=== PATIENT | female | born 1970 | race Two or more races ===

== ENCOUNTER 2020-01-12 17:34 | Outpatient (REF) | payer MEDICAID, SELFPAY ==
[2020-01-12 18:59] LABS: COVID-19 Test Negative (Negative)
== END 2020-01-12 17:35 | disposition home or self-care (01) ==
LOC: HO.LAB 17:34
PROVIDERS: Visit Provider Internal Medicine
DX: Z20.828 Contact with and (suspected) exposure to other viral communicable diseases (principal)
CPT/HCPCS: 87635

== ENCOUNTER → 2020-03-27 11:29 | Outpatient (BNVA) | payer MEDICAID, SELFPAY | PROVIDERS: Visit Provider Anesthesiology | DX: M47.816 Spondylosis without myelopathy or radiculopathy, lumbar region (principal); M51.36 Other intervertebral disc degeneration, lumbar region | CPT/HCPCS: 99212 ==

== ENCOUNTER → 2020-04-06 08:26 | Outpatient (BNVA) | payer MEDICAID, SELFPAY | PROVIDERS: Visit Provider Anesthesiology | DX: M47.816 Spondylosis without myelopathy or radiculopathy, lumbar region (principal); M51.36 Other intervertebral disc degeneration, lumbar region | CPT/HCPCS: 99212 ==

== ENCOUNTER → 2020-04-19 09:11 | Outpatient (BNVA) | payer MEDICAID, SELFPAY | PROVIDERS: PCP Internal Medicine; Visit Provider Nurse Practitioner Family | DX: M51.36 Other intervertebral disc degeneration, lumbar region (principal); M47.816 Spondylosis without myelopathy or radiculopathy, lumbar region | CPT/HCPCS: 99212 ==

== ENCOUNTER 2020-04-29 16:08 | Outpatient (REF) | payer MEDICAID, SELFPAY ==
--- NOTE | 2020-02-22 07:39 | FL_ITS ---
EXAMINATION: XR FLUOROSCOPY WITH IMAGES CLINICAL INFORMATION: M47.816 - Spondylosis without myelopathy or radiculopathy, lumbar region COMPARISON: MRI lumbar spine 10/13/2019 TECHNIQUE: Fluoroscopy performed by Lillie Connor NP. Fluoroscopy time: 0.6 minutes Total dose: 6.3 mGy Images: 2 FINDINGS: There are spinal needles at outer aspect left L3-L4 and L4-L5 neural foramen. There is contrast in the nerve sheaths with some transforaminal epidural extension at both levels. There are degenerative changes lumbar spine with vertebral spurring and there is disc narrowing L4-L5. FL/FL guidance in treatment room IMPRESSION: Fluoroscopy for pain management procedures.
== END 2020-04-29 16:09 | disposition home or self-care (01) ==
LOC: HO.RADIR 16:08
PROVIDERS: Visit Provider Anesthesiology
DX: M47.816 Spondylosis without myelopathy or radiculopathy, lumbar region (principal); M51.36 Other intervertebral disc degeneration, lumbar region
CPT/HCPCS: 64483; 64484; J3300; Q9967

== ENCOUNTER → 2020-05-17 10:21 | Outpatient (BNVA) | payer MEDICAID, SELFPAY | PROVIDERS: PCP Internal Medicine; Visit Provider Anesthesiology | DX: M51.36 Other intervertebral disc degeneration, lumbar region (principal); M47.816 Spondylosis without myelopathy or radiculopathy, lumbar region | CPT/HCPCS: 99212 ==

== ENCOUNTER → 2020-05-31 11:37 | Outpatient (BNVA) | payer MEDICAID, SELFPAY | PROVIDERS: PCP Internal Medicine; Visit Provider Internal Medicine ==

== ENCOUNTER → 2020-06-14 13:28 | Outpatient (BNVA) | payer MEDICAID, SELFPAY | PROVIDERS: Visit Provider Anesthesiology | DX: M51.36 Other intervertebral disc degeneration, lumbar region (principal); M47.816 Spondylosis without myelopathy or radiculopathy, lumbar region; Z79.899 Other long term (current) drug therapy | CPT/HCPCS: 99212 ==

== ENCOUNTER → 2020-07-12 15:57 | Outpatient (BNVA) | payer MEDICAID, SELFPAY | PROVIDERS: PCP Internal Medicine; Visit Provider Anesthesiology | DX: M47.816 Spondylosis without myelopathy or radiculopathy, lumbar region (principal); M51.36 Other intervertebral disc degeneration, lumbar region; Z79.899 Other long term (current) drug therapy | CPT/HCPCS: 99212 ==

== ENCOUNTER → 2020-08-09 16:18 | Outpatient (BNVA) | payer MEDICAID, SELFPAY | PROVIDERS: PCP Internal Medicine; Visit Provider Anesthesiology | DX: M51.36 Other intervertebral disc degeneration, lumbar region (principal); M47.816 Spondylosis without myelopathy or radiculopathy, lumbar region; M46.1 Sacroiliitis, not elsewhere classified | CPT/HCPCS: 99212 ==

== ENCOUNTER 2020-08-16 01:21 | Emergency (ER) | payer MEDICAID, SELFPAY ==
[2020-08-16 01:34] VITALS: BP 146/96; PULSE 73; RESP 18; TEMP 36.6; O2SAT 94; BMI 20.9
== END 2020-08-16 03:48 | disposition left against medical advice (07) ==
PROVIDERS: Emergency Provider Emergency Medicine; PCP Internal Medicine
DX: R68.83 Chills (without fever) (principal); R51.9 Headache, unspecified; R11.0 Nausea
CPT/HCPCS: 99282

== ENCOUNTER → 2020-09-06 16:24 | Outpatient (BNVA) | payer MEDICAID, SELFPAY | PROVIDERS: PCP Internal Medicine; Visit Provider Anesthesiology | DX: Z51.81 Encounter for therapeutic drug level monitoring (principal) | CPT/HCPCS: 99211 ==

== ENCOUNTER 2020-09-29 13:19 | Day surgery (SDC) | payer MEDICAID, SELFPAY ==
[2020-09-25 14:18] VITALS: BMI 21.2
--- NOTE | 2020-09-28 10:23 | HO.ANESPROP2 ---
HPI - Anesthesia Eval Consult details Narrative: 50yo F for Left Sacroiliac Joint Steroid Injection prn opioids PMFSH Active Problems Active Problems: All Active Problems (Updated 06/14/20 @ 13:45 by Lisandro Angela MD) Spondylosis of lumbar region without myelopathy or radiculopathy (Acute) Sacroiliitis (Acute) COPD (chronic obstructive pulmonary disease) (Acute) Asthma (Acute) Allergic rhinitis (Acute) Disc degeneration, lumbar (Acute) Past Medical History Medical History (Updated 09/29/20 @ 13:40 by Andra Banks) Allergic rhinitis Asthma COPD (chronic obstructive pulmonary disease) Disc degeneration, lumbar HTN (hypertension) Sacroiliitis Surgical History Surgical History (Updated 09/25/20 @ 14:22 by Yen Booker) History of esophagogastroduodenoscopy (EGD) History of incision and drainage History of laparoscopic cholecystectomy History of surgery History of umbilical hernia repair Hx of excision of mass Social History Social History (Updated 09/25/20 @ 14:12 by Yen Booker) Patient Tobacco Use Status: Former Tobacco user Tobacco use type: Cigarette Meds Allergies Allergy/AdvReac Type Severity Reaction Status Date / Time Penicillins [PENICILLINS] Allergy Unknown RASH Verified 09/06/20 16:39 Home Medications Medication Instructions Recorded Confirmed Last Taken Type mirtazapine 45 mg tablet 45 mg PO BEDTIME 03/27/20 09/25/20 Unknown History pregabalin 100 mg capsule 100 mg PO BID 03/27/20 09/25/20 09/29/20 09:30 History quetiapine 100 mg tablet 100 mg PO BEDTIME 03/27/20 09/25/20 Unknown History pregabalin 50 mg capsule 50 mg PO BID 04/19/20 09/25/20 09/29/20 09:30 History lisinopril 1 tab PO QAM 09/29/20 09/29/20 09/29/20 09:30 History Exam Exam Date and Time: September 28, 2020 1023 Height,Weight and Vital Signs: Height 5 ft 3 in Weight 54.431 kg Assessment and Plan Assessment Anesthesia Assessment: Chart Reviewed
--- NOTE | ~2020-09-29 | FL_ITS ---
EXAMINATION: XR FLUOROSCOPY WITH IMAGES CLINICAL INFORMATION: Pain management procedure, SI joint injection. COMPARISON: MR lumbar spine 10/13/2019 TECHNIQUE: Fluoroscopy performed by Dr. Lisandro Angela. Fluoroscopy time: under 1 minute. DAP: 0.572 Gycm2 Images: 1 FINDINGS: There is spinal needle overlying mid aspect left SI joint. There is contrast in the soft tissues and some early intra-articular contrast suggested. No visible vascular communication. FL/FL guidance in OR IMPRESSION: Fluoroscopy for pain management procedure.
[2020-09-29 13:41] VITALS: BP 135/82; PULSE 67; RESP 16; TEMP 37.1; O2SAT 94
--- NOTE | 2020-09-29 14:10 | PC.NURSE ---
Inspiratory faint wheezing heard in lower lobes when auscultated. Dr. Freedman notified. No new orders at this time. Okay to proceed with surgery.
[2020-09-29] MEDS: Lactated Ringers 1,000 ML 100 ML IVCONT (14:18)
--- NOTE | 2020-09-29 14:22 | PC.NURSE ---
Patient drank 8oz of black coffee at 1230. Per anesthesia she can not go into surgery until 1430.
--- NOTE | 2020-09-29 14:27 | MHC.SHP ---
Pre-Procedural Eval Section A Date of Service: 09/29/20 Section B Chief Complaint: Sacroiliitis Details of Present Illness: as above Relevant Family History (Specify if Yes): No Relevant Social History: None Present Medications: None Medical History: No relevant PMH History of Previous Operations: No relevant previous surgery Allergies: Allergies Allergy/AdvReac Type Severity Reaction Status Date / Time Penicillins [PENICILLINS] Allergy Unknown RASH Verified 09/06/20 16:39 Review of Systems Sugical H&P ROS: Negative: Constitution, Cardiovascular, Respiratory, Neurological, Psychiatric, Hem-Onc, Allergic/Immunologic, Gastrointestinal, Genitourinary, Musculoskeletal, Integumentary, Endocrine and Eyes/Ears/Nose/Throat Exam Surgical H&P Exam: Normal: HEENT, Normal: Heart, Normal: Lungs, Normal: Extremities, Normal: Abdomen, Normal: Skin and Normal: Neurological Plan Diagnosis/Plan: Unchanged I have reviewed the history and physical and performed a pertinent physical examination on my patient. No changes have occurred unless specified.
[2020-09-29 14:55] VITALS: BP 109/66; PULSE 59; RESP 10; TEMP 36.3; O2SAT 98
--- NOTE | 2020-09-29 14:57 | P.BOP_ITS ---
Brief Operative Note Date of Service: 09/29/20 Pre-op diagnosis: Sacroiliitis Post-op diagnosis: same Procedure: sacroiliac joint injection left Implants: in a Surgeon: Lisandro Angela MD Anesthesia: MAC Was an Glassware Selector used for this Procedure?: No Estimated blood loss (mL): 0 Condition: stable Disposition: PACU
[2020-09-29 15:10] VITALS: BP 111/67; PULSE 62; RESP 16; TEMP 36.3; O2SAT 98
--- NOTE | 2020-09-30 15:33 | P.OP_ITS ---
Operative Note Operative Note Date of Service: 09/29/20 Narrative: Left sacroiliac joint injection Informed consent was explained thoroughly to the patient. All questions about benefits and risks for the procedure were answered. Patient came to the operating room she was positioned prone on the operating table with the pillow under her pelvis. [employer] monitors were applied and patient was deeply sedated. time out was performed delineating correct site and side of the procedure , the patient's name and date of , allergies. Her lower back and buttocks was prepped with ChloraPrep prepped and draped with sterile towels. Sterilely draped C-arm was brought over the operating field and sq picture of patient's pelvis was demonstrated on the screen. For the left joint tilting C-arm contralateral to the site of the joint and 5? to the foot of the patient the most posterior portion of the joints were clearly delineated on the screen. Skin was injected in the projection of the joint slightly medial to the location of the joint with 25 gauge 1/2 inch needle using local lidocaine 2% without epinephrine. After that 22 gauge 3 and 1/2 inch needle was driven to the left joint point of interest in tunnel vision fashion. When needle entered the joint capsule injection of the contrast was performed demonstrating intra-articular and minimally periarticular spread of the contrast. After that 4 cc. of bupivacaine 0.5% mixed with 40 mg Kenalog was injected into each joint. Upon completion of the injections the needles were removed and pressure were applied. Sterile dressing was applied. Upon completion of the injection patient was awaken taking outside of the operating room to the recovery room where she recovered uneventfully. She went home without immediate complications.
== END 2020-09-29 15:28 ==
LOC: HO.SSS 13:19
PROVIDERS: PCP Internal Medicine; Visit Provider Anesthesiology
PROC: 3E0U33Z Introduction of Anti-inflammatory into Joints, Percutaneous Approach (ICD-10-PCS; CPT 27096; principal; 2020-09-29 14:20)
DX: M46.1 Sacroiliitis, not elsewhere classified (principal); M51.36 Other intervertebral disc degeneration, lumbar region; M47.816 Spondylosis without myelopathy or radiculopathy, lumbar region; J44.9 Chronic obstructive pulmonary disease, unspecified; I10 Essential (primary) hypertension; Z79.899 Other long term (current) drug therapy; Z88.0 Allergy status to penicillin; Z87.891 Personal history of nicotine dependence
CPT/HCPCS: 27096; J2250; J3010; J3300; Q9967

== ENCOUNTER → 2020-10-05 15:40 | Outpatient (BNVA) | payer MEDICAID, SELFPAY | PROVIDERS: PCP Internal Medicine; Visit Provider Anesthesiology | DX: M51.36 Other intervertebral disc degeneration, lumbar region (principal); M47.816 Spondylosis without myelopathy or radiculopathy, lumbar region; M46.1 Sacroiliitis, not elsewhere classified | CPT/HCPCS: 99212 ==

== ENCOUNTER → 2020-10-19 14:43 | Outpatient (BNVA) | payer MEDICAID, SELFPAY | PROVIDERS: PCP Internal Medicine; Visit Provider Internal Medicine | DX: J30.9 Allergic rhinitis, unspecified (principal); J44.9 Chronic obstructive pulmonary disease, unspecified | CPT/HCPCS: 99212 ==

== ENCOUNTER → 2020-11-01 13:40 | Outpatient (BNVA) | payer MEDICAID, SELFPAY | PROVIDERS: PCP Internal Medicine; Visit Provider Anesthesiology | DX: M47.816 Spondylosis without myelopathy or radiculopathy, lumbar region (principal); M51.36 Other intervertebral disc degeneration, lumbar region; M46.1 Sacroiliitis, not elsewhere classified | CPT/HCPCS: 99212 ==

== ENCOUNTER 2020-11-13 15:50 | Emergency (ER) | payer MEDICAID, SELFPAY ==
--- NOTE | ~2020-11-13 | XR_ITS ---
EXAMINATION: XR CHEST CLINICAL INFORMATION: Chest radiograph 12/10/2017 COMPARISON: None TECHNIQUE: Frontal view of the chest was obtained. FINDINGS: No significant abnormality is noted involving the heart, lungs, mediastinum, bony thorax or soft tissues. The medial infiltrate in the right middle lobe previously seen has resolved. XR/XR chest 1V IMPRESSION: No acute intrathoracic disease.
[2020-11-13 15:59] VITALS: BP 153/89; PULSE 86; RESP 19; TEMP 36.8; O2SAT 91
--- NOTE | 2020-11-13 16:05 | ECG_ITS ---
Test Reason : ASTHMA Blood Pressure : / mmHG Vent. Rate : 075 BPM Atrial Rate : 075 BPM P-R Int : 132 ms QRS Dur : 074 ms QT Int : 378 ms P-R-T Axes : 082 059 073 degrees QTc Int : 422 ms Normal sinus rhythm with sinus arrhythmia Normal ECG When compared with ECG of 10-MAY-2019 20:41, No significant change was found Referred By: Rach Lozano Electronically Signed By:DYLAN RIZZO
--- NOTE | 2020-11-13 16:17 | ED_ITS ---
HPI - Asthma General Chief Complaint: Asthma Stated Complaint: copd Time Seen by Provider: 11/13/20 16:03 Source: patient Mode of arrival: ambulatory Limitations: no limitations History of Present Illness MD complaint: asthma attack , shortness of breath and wheezing Onset (ago): day(s) (6) Severity: moderate Context: none known Associated symptoms: productive cough and fever Asthma History: childhood onset Treatments Prior to Arrival: inhaled bronchodilator Related Data Home Medications Medication Instructions Recorded Confirmed mirtazapine 45 mg tablet 45 mg PO BEDTIME 03/27/20 11/13/20 quetiapine 100 mg tablet (Seroquel) 100 mg PO BEDTIME 03/27/20 11/13/20 lisinopril 10 mg tablet 1 tab PO DAILY 09/29/20 11/13/20 albuterol sulfate 90 mcg/actuation 2 puff INHALATION QID PRN 11/13/20 11/13/20 aerosol inhaler (ProAir HFA) budesonide-formoterol HFA 80 1 puff INHALATION BID 11/13/20 11/13/20 mcg-4.5 mcg/actuation aerosol inhaler (Symbicort) ergocalciferol (vitamin D2) 1,250 1 cap PO TH@0900 11/13/20 11/13/20 mcg (50,000 unit) capsule lidocaine 5 % topical patch 1 patch TOPICAL DAILY 11/13/20 11/13/20 nicotine 14 mg/24 hr daily 1 patch TOPICAL DAILY 11/13/20 11/13/20 transdermal patch pregabalin 150 mg capsule 150 mg PO BID 11/13/20 11/13/20 Previous Rx's Medication Instructions Recorded tiotropium bromide 18 mcg capsule 1 cap INHALATION DAILY #60 inh 07/05/20 with inhalation device (Spiriva with HandiHaler) oxycodone 5 mg tablet 5 mg PO TID PRN 30 Days #90 tab 11/01/20 montelukast 10 mg tablet 10 mg PO QPM #30 tab 11/07/20 prednisone 5 mg tablet 5 mg PO QAM #30 tab 11/07/20 doxycycline hyclate 100 mg capsule 100 mg PO BID 7 Days #14 cap 11/13/20 Allergies Allergy/AdvReac Type Severity Reaction Status Date / Time Penicillins [PENICILLINS] Allergy Unknown RASH Verified 10/19/20 15:12 Review of Systems Review of Systems: Constitutional : pos Fever, No Chills ENT/Mouth : No Hoarseness, No sore throat, No Rhinorrhea Eyes: No Redness, No Discharge, No Vision Changes Cardiovascular : No Chest Pain, positive SOB, positive Dyspnea on Exertion, No Edema Respiratory : positive Cough, pos Sputum, positive Wheezing, Gastrointestinal : No Nausea, No Vomiting, No Diarrhea, No abdominal Pain Genitourinary : No Dysuria, No Hematuria Musculoskeletal : No joint pain, No Myalgias Skin : No rash Neuro : No Weakness, No Numbness, No Headache Psych : No anxiety, depression Heme/Lymph: No Bruising, No Bleeding Endocrine : No Polyuria, No Polydipsia All other systems reviewed and are negative [facility] Past Medical History Medical History Allergic rhinitis Asthma COPD (chronic obstructive pulmonary disease) Disc degeneration, lumbar HTN (hypertension) Sacroiliitis Surgical History History of esophagogastroduodenoscopy (EGD) History of incision and drainage History of laparoscopic cholecystectomy History of surgery History of umbilical hernia repair Hx of excision of mass Social History Social History Patient Tobacco Use Status: Former Tobacco user Tobacco use type: Cigarette Advance Directives: No Advance Directives Information Provided: Yes Physical Exam Vital Signs: Vital Signs: Last Vital Signs Temp 98.2 F 11/13/20 15:59 Pulse 77 11/13/20 16:30 Resp 19 11/13/20 15:59 BP 153/89 H 11/13/20 15:59 Pulse Ox 93 11/13/20 18:03 Body Mass Index 20.0 Appearance: Alert. Oriented X3. Mild acute distress. Eyes: Pupils equal, round and reactive to light. ENT: Pharynx normal. Neck: Normal inspection. Neck supple. CVS: Normal heart rate and rhythm. Pulses normal. Respiratory: Mild respiratory distress - retractions and tachypnea. Diffuse end exp wheezes. Abdomen: Soft and nontender. Skin: Skin warm and dry. Normal skin color. Normal skin turgor. Extremities: No lower extremity edema. No calf ttp Neuro: Oriented X 3. No motor deficit. No sensory deficit. Course Course Course Narrative: still tight and wheezy but improved - will admit for COPD exacerbation patient initially refused admission to me but due to not feeling better agreed to stay she was seen by Dr. Jane and refused admission MDM - Asthma MDM Narrative Medical decision making narrative: 50 yo female with hx of asthma, COPD comes in with 6 days of cough, producing sputum, fevers, states she had a negative COVID test this week, PCP put her on 20mg prednisone daily, at this time labs, cultures, COVID swab, CXR, 10mg hour long neb, IV steroids, IV magnesium - placed on 2L NC given O2 sat 91%. Suspect URI at this time. Dispo per results and O2 requirement. Lab Data Result diagrams: 11/13/20 16:45 11/13/20 16:45 Labs: Lab Results 11/13/20 11/13/20 11/13/20 Range/Units 16:23 16:45 16:45 WBC 7.5 (4.8-10.8) X10*3/uL RBC 4.58 (4.20-5.50) X10*6/uL Hgb 13.8 (12.0-16.0) g/dl Hct 42.1 (37-47) % MCV 91.9 (80-98) fL MCH 30.1 (27.0-33.0) pg MCHC 32.8 (31.0-35.0) g/dl RDW 14.1 (11.0-16.0) % Plt Count 259 (160-400) X10*3/uL MPV 9.5 (9.4-12.3) fL Immature Gran % (Auto) 1.2 H (0.0-0.4) % Neut % (Auto) 79.1 H (45-73) % Lymph % (Auto) 16.4 L (20-40) % [place] % (Auto) 2.9 (2-11) % Eos % (Auto) 0.0 (0-4) % Baso % (Auto) 0.4 (0-2) % Lymph # (Auto) 1.2 (1.2-4.9) X10*3/uL [place] # (Auto) 0.2 (0.1-1.2) X10*3/uL Eos # (Auto) 0.0 (0.0-0.4) X10*3/uL Baso # (Auto) 0.0 (0.0-0.2) X10*3/uL Abs Immat Gran (auto) 0.09 H (0.00-0.03) X10*3/uL Absolute Neuts (auto) 6.0 (2.0-8.3) X10*3/uL Absolute Nucleated RBC 0.000 (0.0-0.012) X10*3/uL Nucleated RBC % (auto) 0.0 (0.0-0.2) /100WBC VBG pH (7.32-7.43) VBG pCO2 mmHg VBG pO2 mmHg VBG HCO3 (22-26) mmol/L VBG O2 Saturation % VBG Base Excess mmol/L Sodium 144 (135-145) mmol/L Potassium 4.2 (3.3-5.1) mmol/L Chloride 106 (96-108) mmol/L Carbon Dioxide 28 (22-29) mmol/L Anion Gap 14 (12-20) BUN 14 (9-16) mg/dL Creatinine 0.66 (0.5-1.4) mg/dL Estim Creat Clear Calc 85.4 Estimated GFR > 60 Random Glucose 127 H (60-115) mg/dL Lactic Acid 1.0 (0.5-2.0) mmol/L Calcium 8.9 (8.4-10.2) mg/dL Magnesium 3.2 H (1.6-2.6) mg/dL Total Bilirubin 0.2 (0.0-1.0) mg/dL Direct Bilirubin 0.2 (0.0-0.5) mg/dL AST 16 (5-31) U/L ALT 17 (0-31) U/L Alkaline Phosphatase 61 (39-117) U/L B-Natriuretic Peptide (<100) pg/mL Total Protein 6.3 L (6.5-8.0) g/dL Albumin 4.1 (3.5-5.0) g/dL Lipase 11 (8-78) U/L COVID-19 (LAZ) (Negative) COVID-19 Clin Com 11/13/20 11/13/20 11/13/20 Range/Units 16:45 16:46 16:50 WBC (4.8-10.8) X10*3/uL RBC (4.20-5.50) X10*6/uL Hgb (12.0-16.0) g/dl Hct (37-47) % MCV (80-98) fL MCH (27.0-33.0) pg MCHC (31.0-35.0) g/dl RDW (11.0-16.0) % Plt Count (160-400) X10*3/uL MPV (9.4-12.3) fL Immature Gran % (Auto) (0.0-0.4) % Neut % (Auto) (45-73) % Lymph % (Auto) (20-40) % [place] % (Auto) (2-11) % Eos % (Auto) (0-4) % Baso % (Auto) (0-2) % Lymph # (Auto) (1.2-4.9) X10*3/uL [place] # (Auto) (0.1-1.2) X10*3/uL Eos # (Auto) (0.0-0.4) X10*3/uL Baso # (Auto) (0.0-0.2) X10*3/uL Abs Immat Gran (auto) (0.00-0.03) X10*3/uL Absolute Neuts (auto) (2.0-8.3) X10*3/uL Absolute Nucleated RBC (0.0-0.012) X10*3/uL Nucleated RBC % (auto) (0.0-0.2) /100WBC VBG pH 7.41 (7.32-7.43) VBG pCO2 47 mmHg VBG pO2 103 mmHg VBG HCO3 30 H (22-26) mmol/L VBG O2 Saturation 99.0 % VBG Base Excess 4.8 mmol/L Sodium (135-145) mmol/L Potassium (3.3-5.1) mmol/L Chloride (96-108) mmol/L Carbon Dioxide (22-29) mmol/L Anion Gap (12-20) BUN (9-16) mg/dL Creatinine (0.5-1.4) mg/dL Estim Creat Clear Calc Estimated GFR Random Glucose (60-115) mg/dL Lactic Acid (0.5-2.0) mmol/L Calcium (8.4-10.2) mg/dL Magnesium (1.6-2.6) mg/dL Total Bilirubin (0.0-1.0) mg/dL Direct Bilirubin (0.0-0.5) mg/dL AST (5-31) U/L ALT (0-31) U/L Alkaline Phosphatase (39-117) U/L B-Natriuretic Peptide 76 (<100) pg/mL Total Protein (6.5-8.0) g/dL Albumin (3.5-5.0) g/dL Lipase (8-78) U/L COVID-19 (LAZ) Negative (Negative) COVID-19 Clin Com See Note ECG Data Attestation: I personally reviewed and interpreted this ECG as follows: ECG interpretation date: 11/13/20 ECG interpretation time: 16:17 Interpretation: Rate: 68 Rhythm: NSR [place]: normal Normal P waves. Normal VANITA. Normal QRS complex. ST T wave : no GUSTAVO, inverted aVL qTC: normal prior studies: no acute ischemia The study has been interpreted contemporaneously by me. . Critical Care Time Critical Care Time Critical Care Time: Yes Total Critical Care Time: 35 Attestation: re-examination, hour long neb I attest to this time spent taking care of the patient Discharge Plan Discharge Clinical Impression: COPD (chronic obstructive pulmonary disease) Qualifiers: COPD type: COPD with acute exacerbation Qualified Code(s): J44.1 - Chronic obstructive pulmonary disease with (acute) exacerbation Patient Disposition: Left Against Medical Advice Instructions: COPD (Chronic Obstructive Pulmonary Disease) (ED), Against Medical Advice (ED) Additional Instructions: return to ED for any worsening symptoms or concerns you refused admission Prescriptions: New doxycycline hyclate 100 mg capsule 100 mg PO BID 7 Days Qty: 14 RF: 0 No Action Spiriva with HandiHaler 18 mcg capsule, w/inhalation device 1 cap inhalation DAILY Qty: 60 RF: 3 prednisone 5 mg tablet 5 mg PO QAM Qty: 30 RF: 0 montelukast 10 mg tablet 10 mg PO QPM Qty: 30 RF: 3 lisinopril 10 mg tablet 1 tab PO DAILY RF: 0 nicotine 14 mg/24 hr patch 24 hour 1 patch topical DAILY RF: 0 lidocaine 5 % adhesive patch,medicated 1 patch topical DAILY RF: 0 ergocalciferol (vitamin D2) 1,250 mcg (50,000 unit) capsule 1 cap PO TH@0900 RF: 0 pregabalin 150 mg Capsule 150 mg PO BID RF: 0 albuterol sulfate [ProAir HFA] 90 mcg/actuation HFA aerosol inhaler 2 puff inhalation QID PRN (Reason: Shortness Of Breath Or Wheezing) RF: 0 budesonide-formoterol [Symbicort] 80-4.5 mcg/actuation HFA aerosol inhaler 1 puff inhalation BID RF: 0 quetiapine [Seroquel] 100 mg tablet 100 mg PO BEDTIME RF: 0 mirtazapine 45 mg tablet 45 mg PO BEDTIME RF: 0 oxycodone 5 mg tablet 5 mg PO TID PRN (Reason: severe pain (scale score 7-10)) 30 Days Qty: 90 RF: 0 Referrals: Zev Sanders MD [Primary Care Provider] - 2 days Interventions: ED Discharge Assessment Last Done: 11/13/20 19:45 Discharge Date/Time: 11/13/20 19:47
[2020-11-13] MEDS: Magnesium Sulfate/H2O 2 GM/50 ML PIGGYBACK IV (16:19)
[2020-11-13] MEDS: 0.9 % Sodium Chloride 500 ML IV (16:20)
[2020-11-13] MEDS: methylPREDNISolone Sod Succ 125 MG/2 ML VIAL IVPUSH (16:22)
[2020-11-13] MEDS: Albuterol Sulfate (0.083%) 2.5 MG/3 ML VIAL.NEB 10 MG INHALE (16:26)
[2020-11-13 16:30] VITALS: PULSE 77; O2SAT 95
[2020-11-13 16:52] LABS: MANUAL DIFF FLAG NO
[2020-11-13 16:55] LABS: Basophils Percent Auto 0.4 % (0-2); Hematocrit 42.1 % (37-47); Hemoglobin 13.8 g/dl (12.0-16.0); Imm Gran Abs Auto 0.09 X10*3/uL (0.00-0.03); Imm Gran Pct Auto 1.2 % (0.0-0.4); Lymphocytes Absolute Auto 1.2 X10*3/uL (1.2-4.9); Lymphocytes Percent Auto 16.4 % (20-40); Mean Corpuscular HGB Conc 32.8 g/dl (31.0-35.0); Mean Corpuscular Hemoglobin 30.1 pg (27.0-33.0); Mean Corpuscular Volume 91.9 fL (80-98); Mean Platelet Volume 9.5 fL (9.4-12.3); Monocytes Absolute Auto 0.2 X10*3/uL (0.1-1.2); Monocytes Percent Auto 2.9 % (2-11); Neutrophils Percent Auto 79.1 % (45-73); Platelet Count 259 X10*3/uL (160-400); Red Blood Count 4.58 X10*6/uL (4.20-5.50); Red Cell Distribution Width 14.1 % (11.0-16.0); White Blood Count 7.5 X10*3/uL (4.8-10.8)
[2020-11-13 16:58] LABS: VBG Base Excess 4.8 mmol/L; VBG HCO3 30 mmol/L (22-26); VBG pCO2 47 mmHg; VBG pH 7.41 (7.32-7.43); VBG pO2 103 mmHg
[2020-11-13 17:10] LABS: Venous Blood Gas Refer to POC result
[2020-11-13] MEDS: cefTRIAXone sodium 1 GM in 0.9 % Sodium Chloride 50 ML IV (17:11)
[2020-11-13 17:19] LABS: Alanine Aminotransferase 17 U/L (0-31); Albumin Level 4.1 g/dL (3.5-5.0); Alkaline Phosphatase 61 U/L (39-117); Anion Gap 14 (12-20); Aspartate Amino Transferase 16 U/L (5-31); Bilirubin Direct 0.2 mg/dL (0.0-0.5); Bilirubin Total 0.2 mg/dL (0.0-1.0); Blood Urea Nitrogen 14 mg/dL (9-16); Calcium 8.9 mg/dL (8.4-10.2); Carbon Dioxide 28 mmol/L (22-29); Chloride 106 mmol/L (96-108); Creatinine Clr Calc Pharmacy 85.4; Estimated Glomerular Filt Rate > 60; Glucose Random 127 mg/dL (60-115); Lipase 11 U/L (8-78); Magnesium 3.2 mg/dL (1.6-2.6); Potassium 4.2 mmol/L (3.3-5.1); Sodium 144 mmol/L (135-145); Total Protein 6.3 g/dL (6.5-8.0)
[2020-11-13 17:22] LABS: B Type Natriuretic Peptide 76 pg/mL (<100)
[2020-11-13 17:38] LABS: COVID-19 Test Negative (Negative)
[2020-11-13] MEDS: Azithromycin 500 MG in 0.9 % Sodium Chloride 250 ML 125 MG IV (17:49)
[2020-11-13 18:03] VITALS: O2SAT 93
== END 2020-11-13 19:47 | disposition left against medical advice (07) ==
PROVIDERS: Emergency Provider Emergency Medicine; PCP Internal Medicine
DX: J44.1 Chronic obstructive pulmonary disease with (acute) exacerbation (principal); Z20.822 Contact with and (suspected) exposure to COVID-19; R06.02 Shortness of breath; I10 Essential (primary) hypertension; Z79.899 Other long term (current) drug therapy
CPT/HCPCS: 36415; 71045; 80048; 80076; 82803; 83605; 83690; 83735; 83880; 85025; 87040; 87635; 93005; 94640; 94644; 96361; 96365; 96366; 96368; 96375; 99284; 99285; J0456; J0696; J2930; J3475

== ENCOUNTER → 2020-11-22 10:22 | Outpatient (BNVA) | payer MEDICAID, SELFPAY | PROVIDERS: PCP Internal Medicine; Visit Provider Anesthesiology | DX: M51.36 Other intervertebral disc degeneration, lumbar region (principal); M46.1 Sacroiliitis, not elsewhere classified; Z79.899 Other long term (current) drug therapy | CPT/HCPCS: 99212 ==

== ENCOUNTER → 2020-12-11 16:42 | Outpatient (BNVA) | payer MEDICAID, SELFPAY | PROVIDERS: PCP Internal Medicine; Visit Provider Anesthesiology ==

== ENCOUNTER 2020-12-12 17:04 | Emergency (ER) | payer MEDICAID, SELFPAY ==
[2020-12-12 18:21] VITALS: BP 147/88; PULSE 98; RESP 16; TEMP 36.4; O2SAT 98
--- NOTE | 2020-12-12 19:52 | ED_ITS ---
HPI - Back Pain/Injury General Chief Complaint: Back Pain/Injury Stated Complaint: lower back pain Time Seen by Provider: 12/12/20 19:31 Source: patient Mode of arrival: ambulatory History of Present Illness HPI Narrative: 50-year-old female with a past medical history of allergic rhinitis, asthma, COPD, lumbar degenerative disc disease, HTN, presenting to the ED complaining of acute on chronic left-sided low back pain radiating down left lower extremity since yesterday. Reports chronic low back pain since surgery last year. Denies recent injury/trauma or fall. Denies numbness, tingling, weakness, urinary incontinence/retention. Of note patient saw pain management yesterday MD elicited complaint: back pain Related Data Home Medications Medication Instructions Recorded Confirmed mirtazapine 45 mg tablet 45 mg PO BEDTIME 03/27/20 11/22/20 quetiapine 100 mg tablet (Seroquel) 100 mg PO BEDTIME 03/27/20 11/22/20 lisinopril 10 mg tablet 1 tab PO DAILY 09/29/20 11/22/20 albuterol sulfate 90 mcg/actuation 2 puff INHALATION QID PRN 11/13/20 11/22/20 aerosol inhaler (ProAir HFA) budesonide-formoterol HFA 80 1 puff INHALATION BID 11/13/20 11/22/20 mcg-4.5 mcg/actuation aerosol inhaler (Symbicort) ergocalciferol (vitamin D2) 1,250 1 cap PO TH@0900 11/13/20 11/22/20 mcg (50,000 unit) capsule lidocaine 5 % topical patch 1 patch TOPICAL DAILY 11/13/20 11/22/20 nicotine 14 mg/24 hr daily 1 patch TOPICAL DAILY 11/13/20 11/22/20 transdermal patch pregabalin 150 mg capsule 150 mg PO BID 11/13/20 11/22/20 Previous Rx's Medication Instructions Recorded tiotropium bromide 18 mcg capsule 1 cap INHALATION DAILY #60 inh 07/05/20 with inhalation device (Spiriva with HandiHaler) montelukast 10 mg tablet 10 mg PO QPM #30 tab 11/07/20 prednisone 5 mg tablet 5 mg PO QAM #30 tab 11/07/20 doxycycline hyclate 100 mg capsule 100 mg PO BID 7 Days #14 cap 11/13/20 oxycodone 5 mg tablet 5 mg PO TID PRN 30 Days #90 tab 11/22/20 acetaminophen 500 mg tablet 500 mg PO Q6H PRN #20 tab 12/12/20 (Tylenol Extra Strength) cyclobenzaprine 5 mg tablet 5 mg PO Q8H PRN 5 Days #14 tab 12/12/20 naproxen 500 mg tablet 500 mg PO BID PRN 10 Days #20 tab 12/12/20 Allergies Allergy/AdvReac Type Severity Reaction Status Date / Time Penicillins [PENICILLINS] Allergy Unknown RASH Verified 11/22/20 10:40 Review of Systems Review of Systems: Constitutional: No Fever, No Chills ENT/Mouth: No Ear Pain, No sore throat, No Rhinorrhea, No Swallowing Difficulty Cardiovascular: No Chest Pain, No SOB Respiratory: No Cough Gastrointestinal: No Nausea, No Vomiting,No Abdominal pain Genitourinary: No Dysuria, No Urinary Frequency, No Urinary Incontinence/retention Musculoskeletal: No joint pain, No Myalgias, No Joint Swelling Skin: No Skin Lesions, No rash Neuro: No Weakness, No Numbness, No Paresthesias Yes all other systems are reviewed and are negative Neurologic: Denies Sensory deficit (Neuro) [facility] Past Medical History Attestation statement: The following information was validated with the patient. Medical History Allergic rhinitis Asthma COPD (chronic obstructive pulmonary disease) Disc degeneration, lumbar HTN (hypertension) Sacroiliitis Surgical History History of esophagogastroduodenoscopy (EGD) History of incision and drainage History of laparoscopic cholecystectomy History of surgery History of umbilical hernia repair Hx of excision of mass Social History Social History Patient Tobacco Use Status: Former Tobacco user Tobacco use type: Cigarette Advance Directives: No Advance Directives Information Provided: Yes Patient : No Physical Exam Vital Signs: Vital Signs: Last Vital Signs Temp 97.6 F 12/12/20 18:21 Pulse 98 12/12/20 18:21 Resp 17 12/12/20 21:05 BP 147/88 H 12/12/20 18:21 Pulse Ox 98 12/12/20 18:21 Body Mass Index 20.0 Const: General: cooperative, healthy appearing and no acute distress Orientation/consciousness: patient oriented x3 Limitations: no limitations HENMT: Head: Yes normal to inspection Ears: hearing grossly normal bilaterally General nose exam: Normal external nose present Face and sinus: Yes normal facial exam Eyes: General: appearance normal, both eyes and all related structures EOM: EOMs intact bilaterally Neck: Other: No midline cervical spinous tenderness/step-off Neck: Yes normal visual inspection Resp: Effort & Inspection: normal respiratory effort and no respiratory distress Cardio: Rate: regular rate Heart sounds: S1 normal heart sound present and S2 normal heart sound present GI: Inspection: Yes normal to inspection Palpation (GI): Soft to palpation, nontender, no guarding and not rigid Back/Spine/Pelvis: Other: No midline thoracic/lumbar spinous tenderness/step- off or deformity. + left-sided lower lumbar paraspinal/MSK tenderness to palpation Skin: Rashes: no rashes Wounds: no wounds Neuro: Other: Strength intact throughout. No saddle anesthesia General: patient oriented x3 Motor exam (neuro): 5/5 motor strength present throughout Sensory Exam: No Sensory deficit (Neuro) Extrem: General: Yes normal to inspection MDM - Back Pain/Injury MDM Narrative Medical decision making narrative: 50-year-old female with a past medical history of allergic rhinitis, asthma, COPD, lumbar degenerative disc disease, HTN, presenting to the ED complaining of acute on chronic left-sided low back pain radiating down left lower extremity since yesterday. On exam VS, NAD, physical exam as above. No midline spinous tenderness throughout, no red flag symptoms. Likely sciatic pain/MSK pain. Low concern for cauda equina/cord compression. Of note patient is on pain management yesterday, had MRI 1 year ago. Patient also recently filled prednisone on 12/07, and 90 pills of oxycodone on 12/05 Plan: Symptomatic treatment with IM Toradol, tramadol, Tylenol, and Flexeril Medical Records Attestation: I reviewed the patient's medical records. Discharge Plan Discharge Clinical Impression: Lumbar radiculopathy, Sciatica Patient Disposition: Home, Self-Care Instructions: Sciatica (ED) Additional Instructions: Your pain is likely musculoskeletal Flexeril is a muscle relaxer, take at night as it makes you drowsy, do not drive, drink alcohol, or operate machinery while taking it Naproxen as an anti-inflammatory / pain medication, take with food Lidoderm patches are numbing patches, apply to painful area In addition take Tylenol at home Continue to take previously prescribed oxycodone at home and previously prescribed prednisone Please follow-up with her doctor/pain management If symptoms persist or worsen, pain becomes unbearable, you developed urinary retention or incontinence, or weakness return to the ED Prescriptions: New acetaminophen [Tylenol Extra Strength] 500 mg tablet 500 mg PO Q6H PRN (Reason: pain or fever) Qty: 20 RF: 0 naproxen 500 mg tablet 500 mg PO BID PRN (Reason: pain) 10 Days Qty: 20 RF: 0 cyclobenzaprine 5 mg tablet 5 mg PO Q8H PRN (Reason: pain (scale score 7-10)) 5 Days Qty: 14 RF: 0 No Action Spiriva with HandiHaler 18 mcg capsule, w/inhalation device 1 cap inhalation DAILY Qty: 60 RF: 3 prednisone 5 mg tablet 5 mg PO QAM Qty: 30 RF: 0 montelukast 10 mg tablet 10 mg PO QPM Qty: 30 RF: 3 lisinopril 10 mg tablet 1 tab PO DAILY RF: 0 nicotine 14 mg/24 hr patch 24 hour 1 patch topical DAILY RF: 0 lidocaine 5 % adhesive patch,medicated 1 patch topical DAILY RF: 0 ergocalciferol (vitamin D2) 1,250 mcg (50,000 unit) capsule 1 cap PO TH@0900 RF: 0 pregabalin 150 mg Capsule 150 mg PO BID RF: 0 albuterol sulfate [ProAir HFA] 90 mcg/actuation HFA aerosol inhaler 2 puff inhalation QID PRN (Reason: Shortness Of Breath Or Wheezing) RF: 0 budesonide-formoterol [Symbicort] 80-4.5 mcg/actuation HFA aerosol inhaler 1 puff inhalation BID RF: 0 doxycycline hyclate 100 mg capsule 100 mg PO BID 7 Days Qty: 14 RF: 0 quetiapine [Seroquel] 100 mg tablet 100 mg PO BEDTIME RF: 0 mirtazapine 45 mg tablet 45 mg PO BEDTIME RF: 0 oxycodone 5 mg tablet 5 mg PO TID PRN (Reason: severe pain (scale score 7-10)) 30 Days Qty: 90 RF: 0 Referrals: Physician,Unknown [Primary Care Provider] - 2 days Interventions: ED Discharge Assessment Last Done: 12/12/20 21:08 Discharge Date/Time: 12/12/20 21:10
[2020-12-12] MEDS: Ketorolac Tromethamine 15 MG/ML VIAL 30 MG IM (20:21)
[2020-12-12] MEDS: Acetaminophen 325 MG TABLET 650 MG PO (20:22)
[2020-12-12] MEDS: Cyclobenzaprine HCl 10 MG TABLET PO (20:22)
[2020-12-12] MEDS: traMADoL HCL 50 MG TABLET PO (20:22)
[2020-12-12 21:05] VITALS: RESP 17
== END 2020-12-12 21:10 | disposition home or self-care (01) ==
PROVIDERS: Emergency Provider Emergency Medicine Emergency Medical Services
DX: M54.16 Radiculopathy, lumbar region (principal); M54.42 Lumbago with sciatica, left side; I10 Essential (primary) hypertension; Z79.899 Other long term (current) drug therapy; Z87.891 Personal history of nicotine dependence
CPT/HCPCS: 96372; 99284; J1885

== ENCOUNTER → 2020-12-20 13:25 | Outpatient (BNVA) | payer MEDICAID, SELFPAY | PROVIDERS: Visit Provider Anesthesiology | DX: Z51.81 Encounter for therapeutic drug level monitoring (principal); M51.36 Other intervertebral disc degeneration, lumbar region; M47.816 Spondylosis without myelopathy or radiculopathy, lumbar region; M46.1 Sacroiliitis, not elsewhere classified | CPT/HCPCS: 99212 ==

== ENCOUNTER → 2021-01-17 14:16 | Outpatient (BNVA) | payer MEDICAID, SELFPAY | PROVIDERS: Visit Provider Anesthesiology | DX: Z51.81 Encounter for therapeutic drug level monitoring (principal); M51.36 Other intervertebral disc degeneration, lumbar region; M47.816 Spondylosis without myelopathy or radiculopathy, lumbar region; M46.1 Sacroiliitis, not elsewhere classified | CPT/HCPCS: 99212 ==

== ENCOUNTER → 2021-02-14 14:28 | Outpatient (BNVA) | payer MEDICAID, SELFPAY | PROVIDERS: Visit Provider Anesthesiology | DX: Z51.81 Encounter for therapeutic drug level monitoring (principal); M51.36 Other intervertebral disc degeneration, lumbar region; M47.816 Spondylosis without myelopathy or radiculopathy, lumbar region; M46.1 Sacroiliitis, not elsewhere classified | CPT/HCPCS: 99212 ==

== ENCOUNTER → 2021-03-12 15:15 | Outpatient (BNVA) | payer MEDICAID, SELFPAY | PROVIDERS: Visit Provider Anesthesiology | DX: Z51.81 Encounter for therapeutic drug level monitoring (principal); M51.36 Other intervertebral disc degeneration, lumbar region; M47.816 Spondylosis without myelopathy or radiculopathy, lumbar region; M46.1 Sacroiliitis, not elsewhere classified | CPT/HCPCS: 99212 ==

== ENCOUNTER → 2021-03-13 14:13 | Outpatient (BNVA) | payer MEDICAID, SELFPAY | PROVIDERS: PCP Internal Medicine; Visit Provider Internal Medicine | DX: J45.909 Unspecified asthma, uncomplicated (principal); J44.1 Chronic obstructive pulmonary disease with (acute) exacerbation | CPT/HCPCS: 99212 ==

== ENCOUNTER → 2021-04-09 16:21 | Outpatient (BNVA) | payer MEDICAID, SELFPAY | PROVIDERS: PCP Internal Medicine; Visit Provider Anesthesiology | DX: Z51.81 Encounter for therapeutic drug level monitoring (principal); F11.20 Opioid dependence, uncomplicated; M47.816 Spondylosis without myelopathy or radiculopathy, lumbar region; M51.36 Other intervertebral disc degeneration, lumbar region; M46.1 Sacroiliitis, not elsewhere classified | CPT/HCPCS: 99212 ==

== ENCOUNTER → 2021-04-30 14:57 | Outpatient (BNVA) | payer MEDICAID, SELFPAY | PROVIDERS: PCP Internal Medicine; Visit Provider Nurse Practitioner Family | DX: M51.36 Other intervertebral disc degeneration, lumbar region (principal); M47.816 Spondylosis without myelopathy or radiculopathy, lumbar region; M46.1 Sacroiliitis, not elsewhere classified; Z79.891 Long term (current) use of opiate analgesic | CPT/HCPCS: 99212 ==

== ENCOUNTER → 2021-05-28 14:05 | Outpatient (BNVA) | payer MEDICAID, SELFPAY | PROVIDERS: PCP Internal Medicine; Visit Provider Nurse Practitioner Family | DX: M51.36 Other intervertebral disc degeneration, lumbar region (principal); M47.816 Spondylosis without myelopathy or radiculopathy, lumbar region; M46.1 Sacroiliitis, not elsewhere classified; Z79.891 Long term (current) use of opiate analgesic | CPT/HCPCS: 99212 ==

== ENCOUNTER → 2021-06-25 15:00 | Outpatient (BNVA) | payer MEDICAID, SELFPAY | PROVIDERS: PCP Internal Medicine; Visit Provider Nurse Practitioner Family | DX: Z51.81 Encounter for therapeutic drug level monitoring (principal); F11.20 Opioid dependence, uncomplicated; M51.36 Other intervertebral disc degeneration, lumbar region; M46.1 Sacroiliitis, not elsewhere classified; M54.16 Radiculopathy, lumbar region | CPT/HCPCS: 99212 ==

== ENCOUNTER → 2021-07-23 13:34 | Outpatient (BNVA) | payer MEDICAID, SELFPAY | PROVIDERS: PCP Internal Medicine; Visit Provider Nurse Practitioner Family | DX: M51.36 Other intervertebral disc degeneration, lumbar region (principal); M46.1 Sacroiliitis, not elsewhere classified; M54.16 Radiculopathy, lumbar region; Z79.891 Long term (current) use of opiate analgesic | CPT/HCPCS: 99212 ==

== ENCOUNTER → 2021-08-20 13:29 | Outpatient (BNVA) | payer MEDICAID, SELFPAY | PROVIDERS: PCP Internal Medicine; Visit Provider Nurse Practitioner Family | DX: Z51.81 Encounter for therapeutic drug level monitoring (principal); F11.20 Opioid dependence, uncomplicated | CPT/HCPCS: 99211 ==

== ENCOUNTER → 2021-09-10 14:14 | Outpatient (BNVA) | payer MEDICAID, SELFPAY | PROVIDERS: PCP Internal Medicine; Visit Provider Internal Medicine | DX: J45.909 Unspecified asthma, uncomplicated (principal); J44.1 Chronic obstructive pulmonary disease with (acute) exacerbation | CPT/HCPCS: 99212 ==

== ENCOUNTER → 2021-09-17 13:49 | Outpatient (BNVA) | payer MEDICAID, SELFPAY | PROVIDERS: PCP Internal Medicine; Visit Provider Anesthesiology | DX: Z79.891 Long term (current) use of opiate analgesic (principal) | CPT/HCPCS: 99211 ==

== ENCOUNTER 2021-10-15 | Outpatient (REF) | payer MEDICAID, SELFPAY | END 2021-10-15 00:01 | LOC: CF | PROVIDERS: Visit Provider Anesthesiology | DX: M51.36 Other intervertebral disc degeneration, lumbar region (principal); M47.816 Spondylosis without myelopathy or radiculopathy, lumbar region; M46.1 Sacroiliitis, not elsewhere classified | CPT/HCPCS: 99212 ==

== ENCOUNTER 2021-10-16 14:07 | Outpatient (REF) | payer MEDICAID, SELFPAY ==
--- NOTE | 2021-10-16 17:16 | PFT_ITS ---
INDICATION: COPD. SPIROMETRY: FEV1 to FVC of 30% with an FEV1 of 0.65 L, which is 22% predicted and an FVC of 2.13 L, which is 62% predicted. Postbronchodilator, there is significant improvement after bronchodilators. Maximum voluntary ventilation only 20% predicted. LUNG VOLUMES: Total lung capacity 146% predicted and residual volume 294% predicted. DIFFUSION CAPACITY: DLCO 12% predicted. COMPARISONS: None available. INTERPRETATION: There is an obstructive ventilatory defect consistent with very severe COPD. The patient did have a significant response to bronchodilators noted. There is also a severe decrease in maximum voluntary ventilation secondary to deconditioning and also worsening dynamic inspiratory capacity. Lung volumes with significant air trapping and hyperinflation due to the severity of her COPD. In addition to that, there is a very severe diffusion impairment secondary to emphysema and other parenchymal lung conditions should be considered. The patient should have a 6-minute walk test to assess for oxygen needs if not done so and consider lung transplantation if she is a candidate. MD AKIRA Larson/ROSEMARY / [phone]
== END 2021-10-16 14:08 | disposition home or self-care (01) ==
LOC: HO.RESP 14:07
PROVIDERS: PCP Internal Medicine; Visit Provider Internal Medicine
DX: J44.1 Chronic obstructive pulmonary disease with (acute) exacerbation (principal); J45.909 Unspecified asthma, uncomplicated
CPT/HCPCS: 94060; 94727; 94729; 99212

== ENCOUNTER 2021-10-17 14:07 | Outpatient (REF) | payer MEDICAID, SELFPAY ==
--- NOTE | ~2021-10-17 | MM_ITS ---
EXAMINATION: MM SCREENING DIGITAL BREAST TOMOSYNTHESIS, BILATERAL CLINICAL INFORMATION: Screening. Asymptomatic. The lifetime risk of breast cancer based on the Tyrer-Cuzick Model is 5.2%. COMPARISON: Mammography: April 13, 2019 and studies dating back to September 10, 2011 TECHNIQUE: Digital breast tomosynthesis is performed in both the craniocaudal and mediolateral oblique views along with computer-aided detection (CAD). Synthesized 2D images are generated from the tomosynthesis. FINDINGS: The breasts are heterogeneously dense, which may obscure small masses (ACR BI-RADS breast composition Category c). There are no significant masses, abnormal calcifications, or other abnormalities. MM/MM tomosynthesis screening BI IMPRESSION: There are no significant changes from prior study. ASSESSMENT: BI-RADS 1: Negative RECOMMENDATION: Routine annual mammography screening. This patient's information was entered into a reminder system with a target due date for their next mammogram.
== END 2021-10-17 14:08 | disposition home or self-care (01) ==
LOC: HO.MAMMO 14:07
PROVIDERS: PCP Internal Medicine; Visit Provider Internal Medicine
DX: Z12.31 Encounter for screening mammogram for malignant neoplasm of breast (principal)
CPT/HCPCS: 77063; 77067

== ENCOUNTER → 2021-11-02 12:59 | Outpatient (BNVA) | payer MEDICAID, SELFPAY | PROVIDERS: PCP Internal Medicine; Referring Provider Internal Medicine; Visit Provider Surgery | DX: D17.9 Benign lipomatous neoplasm, unspecified (principal); J44.1 Chronic obstructive pulmonary disease with (acute) exacerbation; Z79.52 Long term (current) use of systemic steroids | CPT/HCPCS: 99202 ==

== ENCOUNTER 2021-11-15 11:07 | Day surgery (SDC) | payer MEDICAID, SELFPAY ==
[2021-11-09 15:28] VITALS: BMI 18.3
--- NOTE | 2021-11-14 10:19 | P.CONAN_ITS ---
Documented by User: Angelina Dos Santos NP 11/14/21 10:24 HPI - Anesthesia Eval Consult details Narrative: 51yo F for Left Excision Anticubital Lipoma Severe COPD, O2 at rest 97%. After walking 92% Daily prednisone Chronic opioids PMFSH Active Problems Active Problems: All Active Problems (Updated 11/14/21 @ 08:09 by MERCEDES Lopez) GERD (gastroesophageal reflux disease) (Acute) Medial epicondylitis of both elbows (Acute) HTN (hypertension), benign (Acute) Palpitations (Acute) Vitamin B12 deficiency (Acute) Smoker (Acute) Spondylosis of lumbar region without myelopathy or radiculopathy (Acute) Current chronic use of systemic steroids (Acute) Lipoma (Acute) Radiculopathy, lumbar region (Acute) Sacroiliitis (Acute) COPD (chronic obstructive pulmonary disease) (Acute) Asthma (Acute) Allergic rhinitis (Acute) Disc degeneration, lumbar (Acute) Past Medical History Medical History (Updated 11/14/21 @ 08:09 by MERCEDES Lopez) Allergic rhinitis Anxiety and depression Asthma COPD (chronic obstructive pulmonary disease) Disc degeneration, lumbar History of OCD (obsessive compulsive disorder) History of panic attacks HTN (hypertension) Radiculopathy, lumbar region Sacroiliitis Surgical History Surgical History (Updated 11/14/21 @ 08:09 by MERCEDES Lopez) History of esophagogastroduodenoscopy (EGD) History of incision and drainage History of laparoscopic cholecystectomy History of surgery History of tubal ligation History of umbilical hernia repair Hx of excision of mass Social History Social History Do you presently have visiting nurse or other home services: No Patient Tobacco Use Status: Former Tobacco user Quit Date: 2017 Tobacco use type: Cigarette Use of substances other than those prescribed or required for medical reasons: No Have you been hit, kicked, punched, or otherwise hurt by someone within the past year? If so, by whom?: No Are you DNR?: No Advance Directives: No Advance Directives Information Provided: Yes Advance Directives on File: No Recently lost weight without trying: No Eating poorly because of decreased appetite: No Nutrition Risks: No Nutritional Risk Patient : No Meds Allergies Allergy/AdvReac Type Severity Reaction Status Date / Time Penicillins [PENICILLINS] Allergy Severe RASH Verified 11/15/21 11:48 Home Medications Medication Instructions Recorded Confirmed Last Taken Type mirtazapine 45 mg tablet 45 mg PO BEDTIME 03/27/20 11/09/21 Unknown History quetiapine 100 mg tablet (Seroquel) 100 mg PO BEDTIME 03/27/20 11/09/21 Unknown History lisinopril 10 mg tablet 1 tab PO DAILY 09/29/20 11/09/21 11/15/21 History ergocalciferol (vitamin D2) 1,250 1 cap PO TH@0900 11/13/20 11/09/21 Unknown History mcg (50,000 unit) capsule lidocaine 5 % topical patch 1 patch topical DAILY 11/13/20 11/09/21 Unknown History pregabalin 150 mg capsule 150 mg PO BID 11/13/20 11/09/21 11/15/21 History esomeprazole magnesium 40 mg 40 mg PO QAM 10/16/21 11/09/21 11/15/21 History capsule,delayed release Exam Exam Date and Time: November 14, 2021 1019 Height,Weight and Vital Signs: Height 5 ft 4 in Weight 48.534 kg Narrative Narrative: PFT 09/2021 PULMONARY FUNCTION TEST DONE EARLIER TODAY: FVC 56%, FEV1 19%, FEF 25-75 ? 6% AND MVV 20. POST BRONCHODILATOR THERAPY THERE IS IS SIGNIFICANT IMPROVEMENT IN FEV1 AND FEF 25--75 TLC 146 % RV= 294% DLCO 12? ? ? RESULTS C/W VERY SEVERE COPD EKG 09/2020 Vent. Rate : 075 BPM ? ? Atrial Rate : 075 BPM ?? P-R Int : 132 ms? QRS Dur : 074 ms ? ? QT Int : 378 ms ? ? ? P-R-T Axes : 082 059 073 degrees ?? QTc Int : 422 ms ? Normal sinus rhythm with sinus arrhythmia Normal ECG When compared with ECG of 10-MAY-2019 20:41, No significant change was found Assessment and Plan Assessment Anesthesia Assessment: Chart Reviewed Documented by User: Mitesh Haque MD 11/15/21 12:20 [facility] Past Medical History Medical History (Updated 11/14/21 @ 08:09 by MERCEDES Lopez) Allergic rhinitis Anxiety and depression Asthma COPD (chronic obstructive pulmonary disease) Disc degeneration, lumbar History of OCD (obsessive compulsive disorder) History of panic attacks HTN (hypertension) Radiculopathy, lumbar region Sacroiliitis Family History Family history of problems with anesthesia: No Surgical History Surgical History (Updated 11/14/21 @ 08:09 by MERCEDES Lopez) History of esophagogastroduodenoscopy (EGD) History of incision and drainage History of laparoscopic cholecystectomy History of surgery History of tubal ligation History of umbilical hernia repair Hx of excision of mass History of Problems with Anesthesia: No Social History Social History Do you presently have visiting nurse or other home services: No Patient Tobacco Use Status: Former Tobacco user Quit Date: 2017 Tobacco use type: Cigarette Use of substances other than those prescribed or required for medical reasons: No Have you been hit, kicked, punched, or otherwise hurt by someone within the past year? If so, by whom?: No Are you DNR?: No Advance Directives: No Advance Directives Information Provided: Yes Advance Directives on File: No Recently lost weight without trying: No Eating poorly because of decreased appetite: No Nutrition Risks: No Nutritional Risk Patient : No Meds Allergies Allergy/AdvReac Type Severity Reaction Status Date / Time Penicillins [PENICILLINS] Allergy Severe RASH Verified 11/15/21 11:48 Home Medications Medication Instructions Recorded Confirmed Last Taken Type mirtazapine 45 mg tablet 45 mg PO BEDTIME 03/27/20 11/09/21 Unknown History quetiapine 100 mg tablet (Seroquel) 100 mg PO BEDTIME 03/27/20 11/09/21 Unknown History lisinopril 10 mg tablet 1 tab PO DAILY 09/29/20 11/09/21 11/15/21 History ergocalciferol (vitamin D2) 1,250 1 cap PO TH@0900 11/13/20 11/09/21 Unknown History mcg (50,000 unit) capsule lidocaine 5 % topical patch 1 patch topical DAILY 11/13/20 11/09/21 Unknown History pregabalin 150 mg capsule 150 mg PO BID 11/13/20 11/09/21 11/15/21 History esomeprazole magnesium 40 mg 40 mg PO QAM 10/16/21 11/09/21 11/15/21 History capsule,delayed release Exam Airway Mallampati Class: II TM Dist: >3cm Denture: Upper Loose/Missing/Broken Teeth: Yes and Upper Heart: ok Lungs: Dimin breath sounds, otherw clear. Nl exp phase. 92% on room air. Assessment and Plan Assessment Anesthesia Assessment: Anesthesia Plan Discussed and Chart Reviewed Final Anesthetic Review Family History of Problems with Anesthesia: No History of Problems with Anesthesia: No NPO: Yes ASA Class: III Final Preanesthetic Review: No Changes in Pt Med Stat, Meds/Allgs Chart Reviewed and Consent Obtained/Reviewed Patient Risk: High Procedure Risk: Low Anesthetic Plan Anesthetic Plan: MAC: and Agree w/ Assess. and Plan Disposition: Standard PACU
--- NOTE | 2021-11-15 11:55 | P.OP_ITS ---
Operative Note Operative Note Date of Service: 11/15/21 Narrative: Preop diagnosis: [LEFT antecubital lipoma] Postop diagnosis: [same] Procedure: [excision LEFT upper extremity lipoma with intermediate closure of a 5 cm incision using 3-0 polysorb and 4-0 polypropylene] Surgeon: Hilario Bolton MD Assist: [none] Anesthesia: [MAC, Ropivicaine, 0.5% & lidoccaine 2% with epi] Estimated blood loss: [3cc] Specimen: [Lipoma] Intraoperative findings: [3.0x4.1cm lipoma, extra-fascial] Indications: [The patient is a 51-year-old woman with an antecubital lipoma on her left arm, COPD requiring steroids who is interested in lipoma excision since it is growing and symptomatic. The option of continued observation or 2nd opinion was discussed but declined by the patient. She felt that this was extremely uncomfortable and was concerned about pain during the procedure, consequently mac was discussed for the patient's comfort.] Procedure: [Patient was identified in the preoperative holding area and marked by me confirming the LEFT ANTECUBITAL FOSSA LIPOMA. The patient voided her bladder historic preservationist, was position on the table, sequential compression stockings were in place. An appropriate time-out was performed. After MAC Anesthesia was administered, local was infiltrated [MAC; local 2% lidocaine w/epi/Ropivicaine 0.5% 50:50 mix] with excellent effect. After waiting several minutes to confirm good analgesia, a transverse incision measuring 5 cm was made over the and dis sected into the subcutaneous tissues. An incision was made sharply and carried down to the subcutaneous tissues using electric cautery for hemostasis. The lipoma was carefully extirpated with electrocautery on a setting of 20 Zee, taking care to avoid cutaneous nerves. Next, a 2 layer closure using interrupted 3-0 Polysorb on the subcutaneous tissues to obliterate the cavity and 4-0 polypropylene on the skin was performed with good tissue approximation. The area was then washed and dried and dressings applied. The patient tolerated the procedure well was returned to the day surgery area in stable condition. All sponge instrument counts were correct. ]
--- NOTE | 2021-11-15 11:55 | MHC.SHP ---
Pre-Procedural Eval Section A Date of Service: 11/15/21 The patient is an INPATIENT: No The History & Physical has been completed within 30 days and I have reviewed it.: Yes Section B Chief Complaint: lipoma Allergies: Allergies Allergy/AdvReac Type Severity Reaction Status Date / Time Penicillins [PENICILLINS] Allergy Severe RASH Verified 11/15/21 11:48 Plan I have reviewed the history and physical and performed a pertinent physical examination on my patient. No changes have occurred unless specified.
[2021-11-15 12:02] VITALS: BP 146/84; PULSE 77; RESP 16; TEMP 36.8; O2SAT 92
[2021-11-15] MEDS: Albuterol Sulfate (0.083%) 2.5 MG/3 ML VIAL.NEB INHALE (12:05)
[2021-11-15 12:06] VITALS: PULSE 71; RESP 18; O2SAT 98
[2021-11-15] MEDS: Lactated Ringers 1,000 ML 100 ML IVCONT (12:17)
[2021-11-15 13:08] VITALS: BP 128/74; PULSE 72; RESP 18; TEMP 37.1; O2SAT 94
[2021-11-15 13:23] VITALS: BP 104/73; PULSE 80; RESP 18
[2021-11-15 13:38] VITALS: BP 126/79; PULSE 69; RESP 18; TEMP 37.1; O2SAT 99
== END 2021-11-15 13:51 | disposition home or self-care (01) ==
LOC: HO.SSS 11:08
PROVIDERS: PCP Internal Medicine; Visit Provider Surgery
PROC: (CPT 25071; principal; 2021-11-15 12:40)
DX: D17.22 Benign lipomatous neoplasm of skin and subcutaneous tissue of left arm (principal); I10 Essential (primary) hypertension; J44.1 Chronic obstructive pulmonary disease with (acute) exacerbation; Z79.51 Long term (current) use of inhaled steroids; Z79.52 Long term (current) use of systemic steroids; Z88.0 Allergy status to penicillin; Z87.891 Personal history of nicotine dependence; Z98.890 Other specified postprocedural states
CPT/HCPCS: 25071; 88304; J2250; J2795; J3010

== ENCOUNTER → 2021-11-23 13:08 | Outpatient (BNVA) | payer MEDICAID, SELFPAY | PROVIDERS: PCP Internal Medicine; Visit Provider Anesthesiology | DX: Z48.817 Encounter for surgical aftercare following surgery on the skin and subcutaneous tissue (principal); Z79.52 Long term (current) use of systemic steroids; Z79.899 Other long term (current) drug therapy; Z87.2 Personal history of diseases of the skin and subcutaneous tissue | CPT/HCPCS: 99211 ==

== ENCOUNTER → 2021-11-27 14:26 | Outpatient (BNVA) | payer MEDICAID, SELFPAY | PROVIDERS: PCP Internal Medicine; Visit Provider Surgery | DX: Z48.02 Encounter for removal of sutures (principal); Z87.2 Personal history of diseases of the skin and subcutaneous tissue | CPT/HCPCS: 99211 ==

== ENCOUNTER → 2021-12-19 14:01 | Outpatient (BNVA) | payer MEDICAID, SELFPAY | PROVIDERS: PCP Internal Medicine; Visit Provider Internal Medicine | DX: J44.1 Chronic obstructive pulmonary disease with (acute) exacerbation (principal); J45.909 Unspecified asthma, uncomplicated; J30.9 Allergic rhinitis, unspecified; M51.36 Other intervertebral disc degeneration, lumbar region; M47.816 Spondylosis without myelopathy or radiculopathy, lumbar region; M46.1 Sacroiliitis, not elsewhere classified; Z79.899 Other long term (current) drug therapy; Z79.891 Long term (current) use of opiate analgesic | CPT/HCPCS: 99212 ==

== ENCOUNTER → 2021-12-20 13:12 | Outpatient (BNVA) | payer MEDICAID, SELFPAY | PROVIDERS: PCP Internal Medicine; Visit Provider Nurse Practitioner | DX: Z01.818 Encounter for other preprocedural examination (principal); R10.13 Epigastric pain; K75.81 Nonalcoholic steatohepatitis (NASH); R11.2 Nausea with vomiting, unspecified; J44.1 Chronic obstructive pulmonary disease with (acute) exacerbation | CPT/HCPCS: 99212 ==

== ENCOUNTER 2022-01-15 10:19 | Outpatient (REF) | payer MEDICAID, SELFPAY ==
[2022-01-17 22:17] LABS: HPV mRNA E6/E7 rflx Not Detected (Not Detected)
== END 2022-01-15 10:20 | disposition home or self-care (01) ==
LOC: HO.LNP 10:19
PROVIDERS: Visit Provider Obstetrics & Gynecology
DX: Z12.4 Encounter for screening for malignant neoplasm of cervix (principal); Z11.51 Encounter for screening for human papillomavirus (HPV); N95.0 Postmenopausal bleeding; D25.9 Leiomyoma of uterus, unspecified
CPT/HCPCS: 87624; 88142; 99212

== ENCOUNTER → 2022-01-21 15:52 | Outpatient (BNVA) | payer MEDICAID, SELFPAY | PROVIDERS: PCP Internal Medicine; Visit Provider Anesthesiology | DX: M51.36 Other intervertebral disc degeneration, lumbar region (principal); M47.816 Spondylosis without myelopathy or radiculopathy, lumbar region; M46.1 Sacroiliitis, not elsewhere classified; Z79.891 Long term (current) use of opiate analgesic | CPT/HCPCS: 99212 ==

== ENCOUNTER → 2022-02-18 15:49 | Outpatient (BNVA) | payer MEDICAID, SELFPAY | PROVIDERS: PCP Internal Medicine; Visit Provider Anesthesiology | DX: Z51.81 Encounter for therapeutic drug level monitoring (principal); F11.20 Opioid dependence, uncomplicated | CPT/HCPCS: 99211 ==

== ENCOUNTER → 2022-03-20 16:10 | Outpatient (BNVA) | payer MEDICAID, SELFPAY | PROVIDERS: PCP Internal Medicine; Visit Provider Anesthesiology | DX: M51.36 Other intervertebral disc degeneration, lumbar region (principal); M47.816 Spondylosis without myelopathy or radiculopathy, lumbar region; M46.1 Sacroiliitis, not elsewhere classified; Z79.891 Long term (current) use of opiate analgesic | CPT/HCPCS: 99212 ==

== ENCOUNTER → 2022-04-17 10:02 | Outpatient (BNVA) | payer MEDICAID, SELFPAY | PROVIDERS: PCP Internal Medicine; Visit Provider Anesthesiology | DX: Z79.891 Long term (current) use of opiate analgesic (principal) | CPT/HCPCS: 99211 ==

== ENCOUNTER → 2022-05-15 15:43 | Outpatient (BNVA) | payer MEDICAID, SELFPAY | PROVIDERS: PCP Internal Medicine; Visit Provider Anesthesiology | DX: M51.36 Other intervertebral disc degeneration, lumbar region (principal); M47.26 Other spondylosis with radiculopathy, lumbar region; M46.1 Sacroiliitis, not elsewhere classified; F42.9 Obsessive-compulsive disorder, unspecified; F41.0 Panic disorder [episodic paroxysmal anxiety]; F41.8 Other specified anxiety disorders; Z51.81 Encounter for therapeutic drug level monitoring; Z79.899 Other long term (current) drug therapy | CPT/HCPCS: 99212 ==

== ENCOUNTER → 2022-06-12 14:51 | Outpatient (BNVA) | payer MEDICAID, SELFPAY | PROVIDERS: PCP Internal Medicine; Visit Provider Anesthesiology | DX: Z51.81 Encounter for therapeutic drug level monitoring (principal); F11.20 Opioid dependence, uncomplicated; M51.36 Other intervertebral disc degeneration, lumbar region; M47.816 Spondylosis without myelopathy or radiculopathy, lumbar region; M46.1 Sacroiliitis, not elsewhere classified | CPT/HCPCS: 99212 ==

== ENCOUNTER → 2022-07-10 15:34 | Outpatient (BNVA) | payer MEDICAID, SELFPAY | PROVIDERS: PCP Internal Medicine; Visit Provider Anesthesiology | DX: M51.36 Other intervertebral disc degeneration, lumbar region (principal); M47.816 Spondylosis without myelopathy or radiculopathy, lumbar region; M46.1 Sacroiliitis, not elsewhere classified; Z79.891 Long term (current) use of opiate analgesic | CPT/HCPCS: 99212 ==

== ENCOUNTER → 2022-07-24 14:03 | Outpatient (BNVA) | payer MEDICAID, SELFPAY | PROVIDERS: PCP Internal Medicine; Visit Provider Internal Medicine | DX: J44.1 Chronic obstructive pulmonary disease with (acute) exacerbation (principal); J45.909 Unspecified asthma, uncomplicated | CPT/HCPCS: 99212 ==

== ENCOUNTER → 2022-08-07 15:35 | Outpatient (BNVA) | payer MEDICAID, SELFPAY | PROVIDERS: PCP Internal Medicine; Visit Provider Anesthesiology | DX: Z51.81 Encounter for therapeutic drug level monitoring (principal); Z79.899 Other long term (current) drug therapy | CPT/HCPCS: 99211 ==

== ENCOUNTER 2022-09-04 10:25 | Emergency (ER) | payer MEDICAID, SELFPAY ==
--- NOTE | ~2022-09-04 | XR_ITS ---
EXAMINATION: XR CHEST CLINICAL INFORMATION: Shortness of breath COMPARISON: 11/13/2020 TECHNIQUE: Frontal view of the chest was obtained. FINDINGS: No significant abnormality is noted involving the heart, lungs, mediastinum, bony thorax or soft tissues. XR/XR chest 1V IMPRESSION: Unremarkable examination.
[2022-09-04 10:40] VITALS: BP 138/89; BP 147/82; PULSE 89; PULSE 96; RESP 24; TEMP 36.6; O2SAT 100; O2SAT 92; BMI 18.5
--- NOTE | 2022-09-04 10:41 | ED_ITS ---
HPI - SOB/Dyspnea General Chief Complaint: Dyspnea Stated Complaint: Diff breathing per EMS Time Seen by Provider: 09/04/22 10:39 Source: patient Mode of arrival: EMS Limitations: no limitations History of Present Illness HPI Narrative: Patient history of COPD/asthma overlap syndrome, hypertension comes here for in creased shortness of breath for last few days got worse last night saturating 92% on nebulizing no chest pain or palpitation has some cold symptoms for last 2 days no fever or chills having dry cough ++ Related Data Home Medications Medication Instructions Recorded Confirmed mirtazapine 45 mg tablet 45 mg PO BEDTIME 03/27/20 08/07/22 quetiapine 100 mg tablet (Seroquel) 100 mg PO BEDTIME 03/27/20 08/07/22 lisinopril 10 mg tablet 1 tab PO DAILY 09/29/20 08/07/22 pregabalin 150 mg capsule 150 mg PO BID 11/13/20 08/07/22 esomeprazole magnesium 40 mg 40 mg PO QAM 10/16/21 08/07/22 capsule,delayed release cholecalciferol (vitamin D3) 50 50 mcg PO QAM 12/19/21 08/07/22 mcg (2,000 unit) tablet albuterol sulfate 90 mcg/actuation 2 puff inhalation Q4-6H PRN 07/24/22 08/07/22 aerosol inhaler (ProAir HFA) Previous Rx's Medication Instructions Recorded acetaminophen 500 mg tablet 500 mg PO Q6H PRN pain or fever 12/12/20 (Tylenol Extra Strength) #20 tabs tiotropium bromide 2.5 2 puff PO QAM #4 grams 10/22/21 mcg/actuation mist for inhalation (Spiriva Respimat) ondansetron HCl 4 mg tablet 4 mg PO BID-TID PRN nausea and 12/20/21 vomiting 14 days #4 tabs montelukast 10 mg tablet 10 mg PO BEDTIME #30 tabs 07/11/22 prednisone 5 mg tablet 5 mg PO QAM #30 tabs 07/16/22 albuterol sulfate 90 mcg/actuation 2 puff PO QID PRN for wheezing #18 08/07/22 aerosol inhaler (Ventolin HFA) grams budesonide-formoterol HFA 160 2 puff PO BID #10.2 grams 08/12/22 mcg-4.5 mcg/actuation aerosol inhaler (Symbicort) oxycodone 5 mg tablet 5 mg PO TID PRN pain 30 days #90 09/02/22 tabs Allergies Allergy/AdvReac Type Severity Reaction Status Date / Time Penicillins [PENICILLINS] Allergy Severe RASH Verified 08/07/22 16:06 Review of Systems Review of Systems: Yes all other systems are reviewed and are negative [facility] Past Medical History Medical History Allergic rhinitis Anxiety and depression Asthma COPD (chronic obstructive pulmonary disease) Disc degeneration, lumbar History of OCD (obsessive compulsive disorder) History of panic attacks HTN (hypertension) Pre-op examination Radiculopathy, lumbar region Sacroiliitis Surgical History History of appendectomy History of esophagogastroduodenoscopy (EGD) History of incision and drainage History of laparoscopic cholecystectomy History of surgery History of surgery History of tubal ligation History of umbilical hernia repair Hx of excision of mass Hx of tonsillectomy Status post excision of lipoma Family History Family History Family/Other Cervical cancer Family/Other Stomach cancer Social History Social History Household Members: Spouse Household Members Other:: grandson Housing: House Do you presently have visiting nurse or other home services: No Alcohol intake: never Patient Tobacco Use Status: Former Tobacco user Quit Date: 2017 Tobacco use type: Cigarette Advance Directives: No service: No Current occupational status: unemployed Sexual orientation: Straight/Heterosexual Gender identity: Female Physical Exam Vital Signs: Vital Signs: Last Vital Signs Temp 97.8 F 09/04/22 10:40 Pulse 85 09/04/22 13:48 Resp 16 09/04/22 13:48 BP 131/99 H 09/04/22 12:59 Pulse Ox 88 L 09/04/22 12:59 O2 Del Method Room Air 09/04/22 12:59 Oxygen Flow Rate 2 09/04/22 10:40 BMI result Body Mass Index 18.5 Appearance: Alert. Oriented X3. No acute distress. Eyes: PERRLA, No Nystagmus ENT: Pharynx normal. Oral Mucosa moist Neck: Normal inspection. Neck supple. CVS: Normal heart rate and rhythm. Pulses normal. Respiratory: No respiratory distress. Equal air entry bilateral, decreased air entry bilateral with prolonged expiration Abdomen: Soft and nontender. Bowel sounds are present, no mass palpable, Skin: Skin warm and dry. Normal skin color. Normal skin turgor. Extremities: No lower extremity edema. No calf tenderness Neuro: Oriented X 3. No motor deficit. Medications Administered Discontinued Medications Generic Name Dose Route Start Last Admin Trade Name Freq PRN Reason Stop Dose Admin Albuterol Sulfate 7.5 mg 09/04/22 10:46 09/04/22 11:06 Albuterol Sulfate (0.083%) 2.5 Mg/3 Ml Vial.Neb INHALE 09/04/22 10:47 7.5 mg ONCE ONE Administration Albuterol Sulfate 5 mg 09/04/22 13:05 09/04/22 13:48 Albuterol Sulfate (0.083%) 2.5 Mg/3 Ml Vial.Neb INHALE 09/04/22 13:06 5 mg ONCE ONE Administration Magnesium Sulfate 2 gm in 50 mls @ 100 mls/hr 09/04/22 10:46 09/04/22 13:05 Magnesium Sulfate/H2o IV 09/04/22 11:15 Infused ONCE ONE Infusion Ketorolac Tromethamine 30 mg 09/04/22 11:50 09/04/22 12:12 Ketorolac Tromethamine 30 Mg/Ml Vial IVPUSH 09/04/22 11:51 30 mg ONCE ONE Administration Methylprednisolone Sodium Succinate 125 mg 09/04/22 10:46 09/04/22 11:11 Methylprednisolone Sod Succ 125 Mg/2 Ml Vial IVPUSH 09/04/22 10:47 125 mg ONCE ONE Administration Medical Decision Making Medical Decision Making MDM Narrative: Patient with severe asthma/COPD overlap hypoxic at room air saturating 91% on 2 L seen by lead database administrator plan for home oxygen received multiple treatment still h ypoxic will get home oxygen if possible today. Chest x-ray negative for acute infiltrate patient pulse ox dropped to 88% at room air. will check patient's BNP and D-dimer which is unlikely to be have PE or CHF in the past patient never had elevated D-dimer or BNP 13:55 patient D-dimer is negative for PE. On home oxygen evaluation patient requiring 3 liter/minute oxygen at rest and 6 L while ambulating, would refer patient to stay in the hospital but patient is refusing for family reasons and anxiety will recheck if he can get home oxygen today. Differential Diagnosis CHF/PE/asthma/COPD/pneumothorax/pneumonia Lab Data MDM Lab Attestation statement: I reviewed the patient's lab results. 09/04/22 11:26 09/04/22 11:26 Labs: Lab Results 09/04/22 09/04/22 09/04/22 Range/Units 11:26 11:26 11:26 WBC 10.4 (4.8-10.8) X10*3/uL RBC 5.42 (4.20-5.50) X10*6/uL Hgb 16.0 (12.0-16.0) g/dl Hct 49.3 H (37.0-47.0) % MCV 91.0 (80.0-98.0) fL MCH 29.5 (27.0-33.0) pg MCHC 32.5 (31.0-35.0) g/dl RDW 14.6 (11.0-16.0) % Plt Count 238 (160-400) X10*3/uL MPV 9.5 (9.4-12.3) fL Immature Gran % (Auto) 0.3 (0.0-0.4) % Neut % (Auto) 51.2 (45-73) % Lymph % (Auto) 38.4 (20-40) % [place] % (Auto) 8.1 (2-11) % Eos % (Auto) 1.5 (0-4) % Baso % (Auto) 0.5 (0-2) % Lymph # (Auto) 4.0 (1.2-4.9) X10*3/uL [place] # (Auto) 0.8 (0.1-1.2) X10*3/uL Eos # (Auto) 0.2 (0.0-0.4) X10*3/uL Baso # (Auto) 0.1 (0.0-0.2) X10*3/uL Abs Immat Gran (auto) 0.03 (0.00-0.03) X10*3/uL Absolute Neuts (auto) 5.4 (2.0-8.3) x10*3/uL Absolute Nucleated RBC 0.000 (0.0-0.012) X10*3/uL Nucleated RBC % (auto) 0.0 (0.0-0.2) /100WBC D-Dimer High Sensitivty NG/ML VBG pH (7.32-7.43) VBG pCO2 mmHg VBG pO2 mmHg VBG HCO3 (22-26) mmol/L VBG O2 Saturation % VBG Base Excess mmol/L Sodium 142 (135-145) mmol/L Potassium 4.2 (3.3-5.1) mmol/L Chloride 102 (96-108) mmol/L Carbon Dioxide 34 H (22-29) mmol/L Anion Gap 10 L (12-20) BUN 15 (9-16) mg/dL Creatinine 0.68 (0.5-1.4) mg/dL Estim Creat Clear Calc 74.8 Estimated GFR > 60 Random Glucose 112 (60-115) mg/dL Calcium 9.4 (8.4-10.2) mg/dL Total Bilirubin 0.7 (0.0-1.0) mg/dL AST 21 (5-31) U/L ALT 17 (0-31) U/L Alkaline Phosphatase 73 (39-117) U/L Total Protein 6.7 (6.5-8.0) g/dL Albumin 4.1 (3.5-5.0) g/dL COVID-19 (LAZ) Negative (Negative) COVID-19 Clin Com See Note 09/04/22 09/04/22 Range/Units 13:10 13:17 WBC (4.8-10.8) X10*3/uL RBC (4.20-5.50) X10*6/uL Hgb (12.0-16.0) g/dl Hct (37.0-47.0) % MCV (80.0-98.0) fL MCH (27.0-33.0) pg MCHC (31.0-35.0) g/dl RDW (11.0-16.0) % Plt Count (160-400) X10*3/uL MPV (9.4-12.3) fL Immature Gran % (Auto) (0.0-0.4) % Neut % (Auto) (45-73) % Lymph % (Auto) (20-40) % [place] % (Auto) (2-11) % Eos % (Auto) (0-4) % Baso % (Auto) (0-2) % Lymph # (Auto) (1.2-4.9) X10*3/uL [place] # (Auto) (0.1-1.2) X10*3/uL Eos # (Auto) (0.0-0.4) X10*3/uL Baso # (Auto) (0.0-0.2) X10*3/uL Abs Immat Gran (auto) (0.00-0.03) X10*3/uL Absolute Neuts (auto) (2.0-8.3) x10*3/uL Absolute Nucleated RBC (0.0-0.012) X10*3/uL Nucleated RBC % (auto) (0.0-0.2) /100WBC D-Dimer High Sensitivty < 150 NG/ML VBG pH 7.37 (7.32-7.43) VBG pCO2 57 mmHg VBG pO2 48 mmHg VBG HCO3 33 H (22-26) mmol/L VBG O2 Saturation 77.0 % VBG Base Excess 6.2 mmol/L Sodium (135-145) mmol/L Potassium (3.3-5.1) mmol/L Chloride (96-108) mmol/L Carbon Dioxide (22-29) mmol/L Anion Gap (12-20) BUN (9-16) mg/dL Creatinine (0.5-1.4) mg/dL Estim Creat Clear Calc Estimated GFR Random Glucose (60-115) mg/dL Calcium (8.4-10.2) mg/dL Total Bilirubin (0.0-1.0) mg/dL AST (5-31) U/L ALT (0-31) U/L Alkaline Phosphatase (39-117) U/L Total Protein (6.5-8.0) g/dL Albumin (3.5-5.0) g/dL COVID-19 (LAZ) (Negative) COVID-19 Clin Com Discharge Plan Discharge Clinical Impression: Acute and chronic respiratory failure with hypoxia, Asthma Patient Disposition: Still a Patient Prescriptions: No Action Spiriva Respimat 2.5 mcg/actuation mist 2 puff PO QAM Qty: 4 3RF montelukast 10 mg tablet 10 mg PO BEDTIME Qty: 30 3RF prednisone 5 mg tablet 5 mg PO QAM Qty: 30 3RF albuterol sulfate [Ventolin HFA] 90 mcg/actuation HFA aerosol inhaler 2 puff PO QID PRN (Reason: for wheezing) Qty: 18 1RF budesonide-formoterol [Symbicort] 160-4.5 mcg/actuation HFA aerosol inhaler 2 puff PO BID Qty: 10.2 3RF oxycodone 5 mg tablet 5 mg PO TID PRN (Reason: pain) 30 Days Qty: 90 0RF Rx Instructions: Partial Fill upon patient request. lisinopril 10 mg tablet 1 tab PO DAILY pregabalin 150 mg Capsule 150 mg PO BID acetaminophen [Tylenol Extra Strength] 500 mg tablet 500 mg PO Q6H PRN (Reason: pain or fever) Qty: 20 0RF quetiapine [Seroquel] 100 mg tablet 100 mg PO BEDTIME mirtazapine 45 mg tablet 45 mg PO BEDTIME ondansetron HCl 4 mg tablet 4 mg PO BID-TID PRN (Reason: nausea and vomiting) 14 Days Qty: 4 0RF albuterol sulfate [ProAir HFA] 90 mcg/actuation HFA aerosol inhaler 2 puff inhalation Q4-6H PRN Rx Instructions: no substitutions esomeprazole magnesium 40 mg capsule,delayed release(DR/EC) 40 mg PO QAM cholecalciferol (vitamin D3) 50 mcg (2,000 unit) tablet 50 mcg PO QAM
[2022-09-04] MEDS: Albuterol Sulfate (0.083%) 2.5 MG/3 ML VIAL.NEB 7.5 MG INHALE (11:06)
[2022-09-04 11:08] VITALS: PULSE 84; RESP 16; O2SAT 94
[2022-09-04] MEDS: Magnesium Sulfate/H2O 2 GM/50 ML PIGGYBACK IV (11:11)
[2022-09-04] MEDS: methylPREDNISolone Sod Succ 125 MG/2 ML VIAL IVPUSH (11:11)
[2022-09-04 11:34] LABS: MANUAL DIFF FLAG NO
[2022-09-04 11:35] LABS: Basophils Absolute Auto 0.1 X10*3/uL (0.0-0.2); Basophils Percent Auto 0.5 % (0-2); Eosinophils Absolute Auto 0.2 X10*3/uL (0.0-0.4); Eosinophils Percent Auto 1.5 % (0-4); Hematocrit 49.3 % (37.0-47.0); Imm Gran Abs Auto 0.03 X10*3/uL (0.00-0.03); Imm Gran Pct Auto 0.3 % (0.0-0.4); Lymphocytes Percent Auto 38.4 % (20-40); Mean Corpuscular HGB Conc 32.5 g/dl (31.0-35.0); Mean Corpuscular Hemoglobin 29.5 pg (27.0-33.0); Mean Platelet Volume 9.5 fL (9.4-12.3); Monocytes Absolute Auto 0.8 X10*3/uL (0.1-1.2); Monocytes Percent Auto 8.1 % (2-11); Neutrophils Absolute Auto 5.4 x10*3/uL (2.0-8.3); Neutrophils Percent Auto 51.2 % (45-73); Platelet Count 238 X10*3/uL (160-400); Red Blood Count 5.42 X10*6/uL (4.20-5.50); Red Cell Distribution Width 14.6 % (11.0-16.0); White Blood Count 10.4 X10*3/uL (4.8-10.8)
[2022-09-04 11:59] LABS: COVID-19 Test Negative (Negative); IDNOW Serial# BCCEAD1C
[2022-09-04 12:00] LABS: Alanine Aminotransferase 17 U/L (0-31); Albumin Level 4.1 g/dL (3.5-5.0); Alkaline Phosphatase 73 U/L (39-117); Anion Gap 10 (12-20); Aspartate Amino Transferase 21 U/L (5-31); Bilirubin Total 0.7 mg/dL (0.0-1.0); Blood Urea Nitrogen 15 mg/dL (9-16); Calcium 9.4 mg/dL (8.4-10.2); Carbon Dioxide 34 mmol/L (22-29); Chloride 102 mmol/L (96-108); Creatinine Clr Calc Pharmacy 74.8; Estimated Glomerular Filt Rate > 60; Glucose Random 112 mg/dL (60-115); Potassium 4.2 mmol/L (3.3-5.1); Sodium 142 mmol/L (135-145); Total Protein 6.7 g/dL (6.5-8.0)
[2022-09-04] MEDS: Ketorolac Tromethamine 30 MG/ML VIAL IVPUSH (12:12)
[2022-09-04 12:59] VITALS: BP 131/99; PULSE 85; RESP 17; O2SAT 88
[2022-09-04 13:24] LABS: VBG Base Excess 6.2 mmol/L; VBG HCO3 33 mmol/L (22-26); VBG pCO2 57 mmHg; VBG pH 7.37 (7.32-7.43); VBG pO2 48 mmHg
[2022-09-04 13:24] LABS: Venous Blood Gas Refer to POC result
[2022-09-04 13:33] LABS: D Dimer High Sensitivity < 150 NG/ML
[2022-09-04 13:48] VITALS: PULSE 85; RESP 16; O2SAT 92
[2022-09-04] MEDS: Albuterol Sulfate (0.083%) 2.5 MG/3 ML VIAL.NEB 5 MG INHALE (13:48)
[2022-09-04 13:49] VITALS: PULSE 80; PULSE 84; PULSE 88; PULSE 90; O2SAT 87; O2SAT 90
[2022-09-04 14:01] LABS: B Type Natriuretic Peptide 19 pg/mL (<100)
== END 2022-09-04 15:14 | disposition home or self-care (01) ==
PROVIDERS: Emergency Provider Internal Medicine; PCP Internal Medicine
DX: J96.21 Acute and chronic respiratory failure with hypoxia (principal); J45.909 Unspecified asthma, uncomplicated; R06.02 Shortness of breath; Z20.822 Contact with and (suspected) exposure to COVID-19; Z87.891 Personal history of nicotine dependence; Z79.899 Other long term (current) drug therapy
CPT/HCPCS: 71045; 80053; 82803; 83880; 85025; 85379; 87635; 94640; 96365; 96366; 96375; 99284; J1885; J2930; J3475

== ENCOUNTER → 2022-09-06 14:06 | Outpatient (BNVA) | payer MEDICAID, SELFPAY | PROVIDERS: PCP Internal Medicine; Visit Provider Anesthesiology | DX: Z51.81 Encounter for therapeutic drug level monitoring (principal); F11.20 Opioid dependence, uncomplicated | CPT/HCPCS: 99211 ==

== ENCOUNTER → 2022-09-12 10:21 | Outpatient (BNVA) | payer MEDICAID, SELFPAY | PROVIDERS: PCP Internal Medicine; Visit Provider Internal Medicine | DX: J45.909 Unspecified asthma, uncomplicated (principal); J44.1 Chronic obstructive pulmonary disease with (acute) exacerbation; Z87.891 Personal history of nicotine dependence | CPT/HCPCS: 94618; 99212 ==

== ENCOUNTER 2022-10-04 14:52 | Outpatient (REF) | payer MEDICAID, SELFPAY ==
--- NOTE | ~2022-10-04 | US_ITS ---
EXAMINATION: US PELVIS CLINICAL INFORMATION: Uterine leiomyoma; postmenopausal patient. COMPARISON: CT abdomen and pelvis dated 12/31/2017. TECHNIQUE: Ultrasound of the pelvis is performed using both transabdominal and transvaginal transducers along with Doppler. Transvaginal imaging is performed due to inadequate visualization transabdominally. FINDINGS: Uterus: The uterus is anteverted and retroflexed. The uterus measures 5.3 x 2.8 x 4.4 cm. The double wall endometrial thickness is 0.3 mm. The uterus is smooth in contour and has normal myometrial echogenicity. Within the posterior rightward fundus, an 8 x 7 x 8 mm hypoechoic myometrial fibroid is noted. Within the anterior upper leftward body, a 3 x 4 x 6 mm hypoechoic submucosal fibroid is seen. Adnexa: Both ovaries are visualized. There is normal color flow to the adnexa. There is no ovarian torsion. There is no pelvic ascites or fluid collection. Right ovary measures 2.6 x 1.1 x 0.9 cm, volume 1.4 mL. Left ovary measures 3.1 x 1.0 x 1.6 cm, volume 2.6 mL. US/US pelvic and transvaginal IMPRESSION: Small uterine fibroids are seen, as detailed. The examination is otherwise unremarkable.
== END 2022-10-04 14:53 | disposition home or self-care (01) ==
LOC: HO.US 14:52
PROVIDERS: Visit Provider Obstetrics & Gynecology
DX: D25.9 Leiomyoma of uterus, unspecified (principal)
CPT/HCPCS: 76830; 76856

== ENCOUNTER 2022-10-09 13:31 | Outpatient (AMB) | payer MEDICAID, SELFPAY ==
--- NOTE | 2022-10-09 13:35 | A.OFFVIS_ITS ---
Intake Vital Signs 10/09/22 13:43 Height 5 ft 4 in Weight 113 lb BMI 19.4 BP 124/75 Blood Pressure Location Lt brachial Position Sitting Respiration 14 Pulse 87 Pulse Source Pulse Oximeter Pulse Oximetry (%) 98 Oxygen Delivery Method Nasal Cannula Oxygen Flow Rate 3 Intake Visit Reasons: PILL COUNT Intake Note: Patient comes in for pill count to Oxycodone 5mg tablets. She presented with 71 tablets and should have 69 tablets. Which she took last this morning at 6:30am. Patient reports pain level today of 7/10. Allergies Penicillins [PENICILLINS] Allergy (Severe, Verified 10/09/22 13:42) RASH HPI HPI Comments History of Present Illness Details Deysi is a very pleasant 51 year old female who presents today for a pill count. She is wearing oxygen today because she recently had severe asthma attack after which her pulmonary function decreased. She reports that she is wearing oxygen only when she needs to walk. At rest her oxygen levels are close to normal. She is supposed to have # 69 pills in her possession and presents with # 71 pills. This demonstrates a responsible attitude in regards to her opioid regimen. She reports adequate analgesia, improved function and decrease in pain, with no noted side effects. She denies any fever, abdominal or groin pain, constipation, urinary retention, sedation, nausea, vomiting, peripheral edema, pruritus or dizziness. Patient states she has an increased ability to perform her activities of daily living and interact socially. Pain is rated at 4-5/10 today. [facility] Medical History (Updated 09/12/22 @ 12:20 by Erickson Mathews MD) Allergic rhinitis Anxiety and depression Asthma COPD (chronic obstructive pulmonary disease) COPD exacerbation Disc degeneration, lumbar History of OCD (obsessive compulsive disorder) History of panic attacks HTN (hypertension) Pre-op examination Radiculopathy, lumbar region Sacroiliitis Surgical History History of appendectomy History of esophagogastroduodenoscopy (EGD) History of incision and drainage History of laparoscopic cholecystectomy History of surgery History of surgery History of tubal ligation History of umbilical hernia repair Hx of excision of mass Hx of tonsillectomy Status post excision of lipoma Family History Family/Other Cervical cancer Family/Other Stomach cancer Social History Household Members: Spouse Household Members Other:: grandson Housing: House Do you presently have visiting nurse or other home services: No Alcohol intake: never Patient Tobacco Use Status: Former Tobacco user Quit Date: 2017 Tobacco use type: Cigarette service: No Current occupational status: unemployed Sexual orientation: Straight/Heterosexual Gender identity: Female Review of Systems Const All systems reviewed & are unremarkable except as noted in HPI and below Physical Exam Vital Signs: Last Vital Signs Pulse 87 10/09/22 13:43 Resp 14 10/09/22 13:43 BP 124/75 10/09/22 13:43 Pulse Ox 98 10/09/22 13:43 Oxygen Delivery Method Nasal Cannula 10/09/22 13:43 Oxygen Flow Rate 3 10/09/22 13:43 BMI result Body Mass Index 19.4 Const General: cooperative and no acute distress Nutritional Appearance: thin Orientation/consciousness: patient oriented x3 HEENT Head: Yes normocephalic and Yes atraumatic Ears: hearing grossly normal bilaterally Eyes General: appearance normal, both eyes and all related structures Eyelids: Yes eyelids normal Pupils: Equal, round and reactive pupils present EOM: EOMs intact bilaterally Neck Neck: Yes normal visual inspection, Yes full ROM and Yes no JVD Chest Chest palpation & inspection: normal inspection of the chest Resp Effort & Inspection: normal respiratory effort, able to speak in complete sentences, no audible wheezes, no cough, respiratory effort not decreased, no grunting and not labored Cardio Jugular venous distension: no JVD Back/Spine/Pelvis Other: Tenderness of palpation paraspinal spinal region lumbar spine. Gregory test is positive on the left. Pelvic compression test and pelvis destruction test also positive on the left. SLR is also positive on the left. [place]assgue sign is also positive on the left. Neuro General: patient oriented x3 Cranial nerves: Yes Equal, round and reactive pupils present Assessment & Plan Assessment & Plan (1) Disc degeneration, lumbar: Code(s): M51.36 - Other intervertebral disc degeneration, lumbar region (2) Spondylosis of lumbar region without myelopathy or radiculopathy: Code(s): M47.816 - Spondylosis without myelopathy or radiculopathy, lumbar region (3) Sacroiliitis: Code(s): M46.1 - Sacroiliitis, not elsewhere classified Plan Next appointment in 1 month. She is doing okay. Opioids help her pain. She does not request escalation. She is compliant with the contract. She denies side effects. She denies constipation. She is wearing oxygen today because of the exacerbation of her asthma. I will renew her opioids there do on 11/02/2022 Medications: Refilled oxycodone Partial Fill upon patient request. 5 mg PO TID PRN 90 tabs 0RF pain 30 days M46.1 - Sacroiliitis, not elsewhere classified, M47.816 - Spondylosis without myelopathy or radiculopathy, lumbar region, M51.36 - Other intervertebral disc degeneration, lumbar region Coding Level of Care Code Est Pt Level 3 (51416) Diagnoses Disc degeneration, lumbar M51.36 Spondylosis of lumbar region without myelopathy or radiculopathy M47.816 Sacroiliitis M46.1
[2022-10-09 13:43] VITALS: BP 124/75; PULSE 87; RESP 14; O2SAT 98; BMI 19.4
== END 2022-10-09 13:49 | disposition home or self-care (01) ==
PROVIDERS: PCP Internal Medicine; Visit Provider Anesthesiology
DX: M51.36 Other intervertebral disc degeneration, lumbar region (principal); M47.816 Spondylosis without myelopathy or radiculopathy, lumbar region; M46.1 Sacroiliitis, not elsewhere classified; Z79.891 Long term (current) use of opiate analgesic
CPT/HCPCS: 99213

== ENCOUNTER → 2022-10-09 13:31 | Outpatient (BNVA) | payer MEDICAID, SELFPAY | PROVIDERS: PCP Internal Medicine; Visit Provider Anesthesiology | DX: J44.1 Chronic obstructive pulmonary disease with (acute) exacerbation (principal); J45.909 Unspecified asthma, uncomplicated; M51.36 Other intervertebral disc degeneration, lumbar region; M47.816 Spondylosis without myelopathy or radiculopathy, lumbar region; M46.1 Sacroiliitis, not elsewhere classified | CPT/HCPCS: 99212 ==

== ENCOUNTER 2022-10-09 14:36 | Outpatient (AMB) | payer MEDICAID, SELFPAY ==
--- NOTE | 2022-10-09 15:01 | A.OFFVIS_ITS ---
Intake Vital Signs 10/09/22 15:02 Height 5 ft 4 in Weight 113 lb BMI 19.4 BP 102/60 Blood Pressure Location Lt brachial Position Standing Pulse 81 Pulse Source Pulse Oximeter Pulse Oximetry (%) 93 Oxygen Delivery Method Nasal Cannula Oxygen Flow Rate 2 Intake Visit Reasons: [place] [place] Note: pt is here for follow up and states she can go without oxygen when sitting but with any walking her oxygen just drops. Allergies Penicillins [PENICILLINS] Allergy (Severe, Verified 10/09/22 15:08) RASH Medication List - Last Reconciled 10/09/22 by Erickson Mathews MD acetaminophen (Tylenol Extra Strength) 500 mg PO Q6H PRN albuterol sulfate 90 mcg/actuation (ProAir HFA) 2 puffs inhalation Q4-6H PRN albuterol sulfate 90 mcg/actuation (Ventolin HFA) 2 puffs PO QID PRN 30 days albuterol sulfate 2.5 mg (3 mL) inhalation Q4-6H PRN 30 days budesonide-formoterol 160-4.5 mcg/actuation (Symbicort) 2 puffs PO BID cholecalciferol (vitamin D3) 50 mcg PO QAM esomeprazole magnesium 40 mg PO QAM lisinopril 1 tab PO DAILY mirtazapine 45 mg PO BEDTIME montelukast 10 mg PO BEDTIME ondansetron HCl 4 mg PO BID-TID PRN 14 days oxycodone 5 mg PO TID PRN 30 days prednisone 5 mg PO DAILY pregabalin 150 mg PO BID quetiapine (Seroquel) 100 mg PO BEDTIME tiotropium bromide 2.5 mcg/actuation (Spiriva Respimat) 2 puffs PO QAM Do you need a note to return to daycare/school/sports/work: No HPI [place] [place] HPI Details This 52 years old female with end-stage chronic obstructive pulmonary disease is here. For follow-up after 4 weeks She is down to prednisone 5 mg a day as her maintenance dose and continues to use respiratory treatments as advised. She has been using O2 with portable cylinder 2 L/minute and . Feels less the distressed At home she uses the oxygen only p.r.n.. She does have mild intermittent. Cough without any expectoration She is short of breath on any minimal effort. She is not able to walk any big distance, so stays mostly in the house. [facility] Medical History Allergic rhinitis Anxiety and depression Asthma COPD (chronic obstructive pulmonary disease) COPD exacerbation Disc degeneration, lumbar History of OCD (obsessive compulsive disorder) History of panic attacks HTN (hypertension) Pre-op examination Radiculopathy, lumbar region Sacroiliitis Surgical History History of appendectomy History of esophagogastroduodenoscopy (EGD) History of incision and drainage History of laparoscopic cholecystectomy History of surgery History of surgery History of tubal ligation History of umbilical hernia repair Hx of excision of mass Hx of tonsillectomy Status post excision of lipoma Family History Family/Other Cervical cancer Family/Other Stomach cancer Social History Household Members: Spouse Household Members Other:: grandson Housing: House Do you presently have visiting nurse or other home services: No Alcohol intake: never Patient Tobacco Use Status: Former Tobacco user Quit Date: 2017 Tobacco use type: Cigarette service: No Current occupational status: unemployed Sexual orientation: Straight/Heterosexual Gender identity: Female Review of Systems Const All systems reviewed & are unremarkable except as noted in HPI and below Eyes Reports no additional complaints ENT Reports nasal congestion and Reports nasal discharge (OFF AND ON) Card Denies chest pain, Denies irregular heart rhythm and Denies leg edema Resp Reports as per HPI GI Reports no additional complaints Reports no additional complaints Musc Reports back pain and Reports arthralgias Skin/Breast Reports system reviewed and no additional complaints, except as documented Neuro Reports no additional complaints Psych Reports depression (Mild) Endo Reports no additional complaints Physical Exam Vital Signs: Last Vital Signs Pulse 81 10/09/22 15:02 BP 102/60 10/09/22 15:02 Pulse Ox 93 10/09/22 15:02 Oxygen Delivery Method Nasal Cannula 10/09/22 15:02 Oxygen Flow Rate 2 10/09/22 15:02 BMI result Body Mass Index 19.4 Const General: comfortable, no acute distress, alert and awake Orientation/consciousness: patient oriented x3 HEENT Head: Yes normal to inspection General nose exam: No nasal polyps present, No nasal discharge present and Other nasal findings present (Mild bilateral nasal congestion) Face and sinus: Yes sinuses nontender Mouth: oropharynx normal Throat: Yes posterior oropharynx normal Eyes General: appearance normal, both eyes and all related structures Neck Neck: Yes normal visual inspection, Yes no lymphadenopathy, Yes trachea midline and Yes no JVD Thyroid: Thyroid normal Chest Chest palpation & inspection: normal inspection of the chest, normal palpation of entire chest wall and no tenderness Resp Other: Percussion note is HYPER RESONANT , she does have good breath sounds on both sides but quite distant with prolonged expiratory phase. No audible wheezes or rhonchi heard. Cardio Palpation: normal PMI Rate: regular rate Rhythm: regular rhythm Heart sounds: no gallops and no murmurs Peripheral pulses: Peripheral pulses 2+ throughout GI Palpation (GI): Soft to palpation, nontender, No hepatosplenomegaly present and no masses Auscultation: normal bowel sounds Back/Spine/Pelvis Thoracic/Lumbar Spine: thoracic and lumbar spine normal to inspection and thoraco-lumbar ROM limited Skin General skin exam: no rashes or lesions noted Neuro General: patient oriented x3 and no focal motor deficits Cranial nerves: Yes CN's II-XII intact bilaterally Extrem General: Yes normal to inspection, Yes no clubbing, cyanosis or edema and Yes no calf tenderness Psych Appearance: grossly normal and well kempt Speech and movement: Normal speech and movement present Assessment & Plan Assessment & Plan (1) COPD (chronic obstructive pulmonary disease): Comment: COPD IS DUE TO HER CHRONIC LIFELONG BRONCHIAL ASTHMA AND PAST HISTORY OF SMOKING. [place] SYMBICORT 80-4.52 PUFFS B.I.D. SPIRIVA HANDIHALER 1 INHALATION DAILY PROAIR 2 PUFFS Q.4 HOURS P.R.N. PREDNISONE 5 MG daily . Code(s): J44.9 - Chronic obstructive pulmonary disease, unspecified Qualifiers: COPD type: COPD with acute exacerbation Qualified Code(s): J44.1 - Chronic obstructive pulmonary disease with (acute) exacerbation (2) Asthma: Comment: SHE HAS LIFELONG HISTORY OF BRONCHIAL ASTHMA, WHICH HAS NOW PHASED INTO CHRONIC OBSTRUCTIVE PULMONARY DISEASE. HER ASTHMA IS SECONDARY TO ENVIRONMENTAL ALLERGIES. SINCE SHE MOVED INTO AN APARTMENT WITH NO CARPETS AND HAS LESS DUST EXPOSURE, SHE REPORTS IMPROVEMENT IN SYMPTOMS. Code(s): J45.909 - Unspecified asthma, uncomplicated (3) Allergic rhinitis: Comment: SHE HAS CHRONIC, YEAR ROUND ALLERGIC RHINITIS. CURRENTLY IT IS UNDER CONTROL WITH HER MEDICATION REGIMEN. TX MONTELUKAST 10 MG DAILY Code(s): J30.9 - Allergic rhinitis, unspecified Plan: In general this patient is quite debilitated, of a thin build, shortness of breath on minimal effort. I ASKED HER REPEATEDLY AND SHE CLAIMS THAT SHE DOES NOT SMOKE ANY MORE. PROGNOSIS REMAINS GUARDED. Coding Level of Care Code Est Pt Level 3 (61022) Diagnoses COPD (chronic obstructive pulmonary disease) J44.1 COPD type: COPD with acute exacerbation Asthma J45.909 Allergic rhinitis J30.9
[2022-10-09 15:02] VITALS: BP 102/60; PULSE 81; O2SAT 93; BMI 19.4
== END 2022-10-09 15:30 | disposition home or self-care (01) ==
PROVIDERS: PCP Internal Medicine; Visit Provider Internal Medicine
DX: J45.909 Unspecified asthma, uncomplicated (principal)
CPT/HCPCS: 99213

== ENCOUNTER 2022-10-21 14:09 | Outpatient (REF) | payer MEDICAID, SELFPAY ==
[2022-10-21 17:40] LABS: Basophils Absolute Auto 0.1 X10*3/uL (0.0-0.2); Basophils Percent Auto 0.5 % (0-2); Hemoglobin 15.3 g/dl (12.0-16.0); Imm Gran Abs Auto 0.08 X10*3/uL (0.00-0.03); Imm Gran Pct Auto 0.6 % (0.0-0.4); Lymphocytes Absolute Auto 0.6 X10*3/uL (1.2-4.9); Lymphocytes Percent Auto 4.9 % (20-40); MANUAL DIFF FLAG SCAN; Mean Corpuscular HGB Conc 31.9 g/dl (31.0-35.0); Mean Corpuscular Hemoglobin 29.5 pg (27.0-33.0); Mean Corpuscular Volume 92.5 fL (80.0-98.0); Mean Platelet Volume 10.6 fL (9.4-12.3); Monocytes Absolute Auto 0.4 X10*3/uL (0.1-1.2); Monocytes Percent Auto 3.4 % (2-11); Neutrophils Absolute Auto 11.4 x10*3/uL (2.0-8.3); Neutrophils Percent Auto 90.6 % (45-73); Platelet Count 299 X10*3/uL (160-400); Red Blood Count 5.19 X10*6/uL (4.20-5.50); Red Cell Distribution Width 14.3 % (11.0-16.0); SCAN SMEAR FLAG 1; White Blood Count 12.6 X10*3/uL (4.8-10.8)
[2022-10-21 18:02] LABS: SLIDE REVIEW VERIFIED
[2022-10-21 18:14] LABS: Anion Gap 14 (12-20); Blood Urea Nitrogen 11 mg/dL (9-16); Calcium 9.4 mg/dL (8.4-10.2); Carbon Dioxide 28 mmol/L (22-29); Chloride 100 mmol/L (96-108); Estimated Glomerular Filt Rate > 60; Glucose Random 126 mg/dL (60-115); Potassium 3.5 mmol/L (3.3-5.1); Sodium 138 mmol/L (135-145)
== END 2022-10-21 14:10 | disposition home or self-care (01) ==
LOC: HO.CHCLDS 14:09
PROVIDERS: Visit Provider Internal Medicine
DX: K52.9 Noninfective gastroenteritis and colitis, unspecified (principal)
CPT/HCPCS: 36415; 80048; 85025

== ENCOUNTER 2022-11-05 15:24 | Outpatient (AMB) | payer MEDICAID, SELFPAY ==
--- NOTE | 2022-11-05 15:35 | MHC.OFFVIS ---
Intake Vital Signs 11/05/22 15:38 Height 5 ft 4 in Weight 110 lb BMI 18.9 BP 102/64 Blood Pressure Location Lt brachial Position Sitting Pulse 83 Pulse Source Pulse Oximeter Pulse Oximetry (%) 97 Oxygen Delivery Method Nasal Cannula Oxygen Flow Rate 2 Intake Visit Reasons: asthma Intake Note: pt is here for follow up and states she is about the same, wearing oxygen 24 hours, and still weak. Cable Placer Required: No Allergies Penicillins [PENICILLINS] Allergy (Severe, Verified 11/05/22 15:54) RASH Medication List - Last Reconciled 11/05/22 by Erickson Mathews MD acetaminophen (Tylenol Extra Strength) 500 mg PO Q6H PRN albuterol sulfate 90 mcg/actuation (Ventolin HFA) 2 puffs PO QID PRN 30 days albuterol sulfate 2.5 mg (3 mL) inhalation Q4-6H PRN 30 days budesonide-formoterol 160-4.5 mcg/actuation (Symbicort) 2 puffs PO BID cholecalciferol (vitamin D3) 50 mcg PO QAM esomeprazole magnesium 40 mg PO QAM lisinopril 1 tab PO DAILY mirtazapine 45 mg PO BEDTIME montelukast 10 mg PO BEDTIME ondansetron HCl 4 mg PO BID-TID PRN 14 days oxycodone 5 mg PO TID PRN 30 days prednisone 5 mg PO QAM pregabalin 150 mg PO BID quetiapine (Seroquel) 100 mg PO BEDTIME tiotropium bromide 2.5 mcg/actuation (Spiriva Respimat) 2 puffs PO QAM Do you need a note to return to daycare/school/sports/work: No HPI asthma HPI Details GUERA IS A CASE OF END-STAGE CHRONIC OBSTRUCTIVE PULMONARY DISEASE. ON HER LAST VISIT SHE WAS FOUND TO HAVE HYPOXEMIA ON MINIMAL WALKING. SHE HAS BEEN STARTED ON OXYGEN 2 L/MINUTE WHICH SHE IS USING CONTINUOUSLY. SHE CLAIMS THAT SHE STILL FEELING THE SAME, GETS SHORT OF BREATH ON WALKING, BUT SHE DOES NOT HAVE ANY BOUTS OF RESPIRATORY DISTRESS. SLEEPING WELL AND DOES USE THE OXYGEN DURING SLEEP WELL. [facility] Medical History (Updated 11/05/22 @ 16:03 by Erickson Mathews MD) Allergic rhinitis Anxiety and depression Asthma COPD (chronic obstructive pulmonary disease) COPD exacerbation Disc degeneration, lumbar History of OCD (obsessive compulsive disorder) History of panic attacks HTN (hypertension) Pre-op examination Radiculopathy, lumbar region Respiratory failure with hypoxia Sacroiliitis Surgical History History of appendectomy History of esophagogastroduodenoscopy (EGD) History of incision and drainage History of laparoscopic cholecystectomy History of surgery History of surgery History of tubal ligation History of umbilical hernia repair Hx of excision of mass Hx of tonsillectomy Status post excision of lipoma Family History Family/Other Cervical cancer Family/Other Stomach cancer Social History Household Members: Spouse Household Members Other:: grandson Housing: House Do you presently have visiting nurse or other home services: No Alcohol intake: never Patient Tobacco Use Status: Former Tobacco user Quit Date: 2017 Tobacco use type: Cigarette service: No Current occupational status: unemployed Sexual orientation: Straight/Heterosexual Gender identity: Female Review of Systems Const All systems reviewed & are unremarkable except as noted in HPI and below Eyes Reports no additional complaints ENT Reports nasal congestion and Reports nasal discharge (OFF AND ON) Card Denies chest pain, Denies irregular heart rhythm and Denies leg edema Resp Reports as per HPI GI Reports no additional complaints Reports no additional complaints Musc Reports back pain and Reports arthralgias Skin/Breast Reports system reviewed and no additional complaints, except as documented Neuro Reports no additional complaints Psych Reports depression (Mild) Endo Reports no additional complaints Physical Exam Vital Signs: Last Vital Signs Pulse 83 11/05/22 15:38 BP 102/64 11/05/22 15:38 Pulse Ox 97 11/05/22 15:38 Oxygen Delivery Method Nasal Cannula 11/05/22 15:38 Oxygen Flow Rate 2 11/05/22 15:38 BMI result Body Mass Index 18.9 Const General: comfortable, no acute distress, alert and awake Orientation/consciousness: patient oriented x3 HEENT Head: Yes normal to inspection General nose exam: No nasal polyps present, No nasal discharge present and Other nasal findings present (Mild bilateral nasal congestion) Face and sinus: Yes sinuses nontender Mouth: oropharynx normal Throat: Yes posterior oropharynx normal Eyes General: appearance normal, both eyes and all related structures Neck Neck: Yes normal visual inspection, Yes no lymphadenopathy, Yes trachea midline and Yes no JVD Thyroid: Thyroid normal Chest Chest palpation & inspection: normal inspection of the chest, normal palpation of entire chest wall and no tenderness Resp Other: Percussion note is HYPER RESONANT , she does have good breath sounds on both sides but quite distant with prolonged expiratory phase. No audible wheezes or rhonchi heard. Cardio Palpation: normal PMI Rate: regular rate Rhythm: regular rhythm Heart sounds: no gallops and no murmurs Peripheral pulses: Peripheral pulses 2+ throughout GI Palpation (GI): Soft to palpation, nontender, No hepatosplenomegaly present and no masses Auscultation: normal bowel sounds Back/Spine/Pelvis Thoracic/Lumbar Spine: thoracic and lumbar spine normal to inspection and thoraco-lumbar ROM limited Skin General skin exam: no rashes or lesions noted Neuro General: patient oriented x3 and no focal motor deficits Cranial nerves: Yes CN's II-XII intact bilaterally Extrem General: Yes normal to inspection, Yes no clubbing, cyanosis or edema and Yes no calf tenderness Psych Appearance: grossly normal and well kempt Speech and movement: Normal speech and movement present Assessment & Plan Assessment & Plan (1) COPD exacerbation: Comment: Patient has very advanced chronic obstructive pulmonary disease, 10/16/21 ( FVC 56% FEV1 19% FEV1/FVC ratio is 28, FEF 25-75 only 6. ) There was minimal response to bronchodilator therapy Her symptoms got worse and she has been started on O2 2 L/minute since her last visit. She is feeling the same but I think she appears somewhat better. Plan is to continue her on the current regimen: Prednisone 5 mg daily Symbicort 160-4.5 2 puffs b.i.d. Spiriva Respimat 2.5 mg 2 inhalations daily. Albuterol HFA 2 puffs Q 4-6 hours p.r.n.. Code(s): J44.1 - Chronic obstructive pulmonary disease with (acute) exacerbation (2) Allergic rhinitis: Comment: SHE HAS CHRONIC, YEAR ROUND ALLERGIC RHINITIS. CURRENTLY IT IS UNDER CONTROL WITH HER MEDICATION REGIMEN. TX :MONTELUKAST 10 MG DAILY Code(s): J30.9 - Allergic rhinitis, unspecified (3) Smoker: Comment: She has had long standing history of smoking. QUIT in 2018. Code(s): F17.200 - Nicotine dependence, unspecified, uncomplicated (4) Respiratory failure with hypoxia: Comment: She was hypoxemic with minimal exertion. Has been started on O2 therapy. Feels stronger and better. TX: O2 2 L/minute 24 hours a day. Code(s): J96.91 - Respiratory failure, unspecified with hypoxia Coding Level of Care Code Est Pt Level 3 (63938) Diagnoses COPD exacerbation J44.1 Allergic rhinitis J30.9 Smoker F17.200 Respiratory failure with hypoxia J96.91
[2022-11-05 15:38] VITALS: BP 102/64; PULSE 83; O2SAT 97; BMI 18.9
== END 2022-11-05 15:55 | disposition home or self-care (01) ==
PROVIDERS: PCP Internal Medicine; Visit Provider Internal Medicine
DX: J44.1 Chronic obstructive pulmonary disease with (acute) exacerbation (principal); J30.9 Allergic rhinitis, unspecified; F17.200 Nicotine dependence, unspecified, uncomplicated; J96.91 Respiratory failure, unspecified with hypoxia
CPT/HCPCS: 99213

== ENCOUNTER → 2022-11-05 15:24 | Outpatient (BNVA) | payer MEDICAID, SELFPAY | PROVIDERS: PCP Internal Medicine; Visit Provider Internal Medicine | DX: J44.1 Chronic obstructive pulmonary disease with (acute) exacerbation (principal); J30.9 Allergic rhinitis, unspecified; J96.91 Respiratory failure, unspecified with hypoxia; Z87.891 Personal history of nicotine dependence | CPT/HCPCS: 99212 ==

== ENCOUNTER → 2022-11-06 13:07 | Outpatient (BNVA) | payer MEDICAID, SELFPAY | PROVIDERS: PCP Internal Medicine; Visit Provider Anesthesiology | DX: Z51.81 Encounter for therapeutic drug level monitoring (principal); F11.20 Opioid dependence, uncomplicated | CPT/HCPCS: 99211 ==

== ENCOUNTER 2022-12-07 22:17 | Emergency (ER) | payer MEDICAID, SELFPAY ==
--- NOTE | ~2022-12-07 | XR_ITS ---
EXAMINATION: XR FOOT, RIGHT CLINICAL INFORMATION: Dropped dumbbell on foot COMPARISON: None available. TECHNIQUE: AP, lateral, and oblique views of the right foot. FINDINGS: There is no acute fracture. There is deformity of the fourth metatarsal distally compatible with old healed fracture. Mild arthrosis of the PIP joint of the small toe. Mild soft tissue prominence dorsally about the forefoot and midfoot could reflect normal variation or edema or soft tissue contusion XR/XR foot RT min 3V IMPRESSION: 1. No acute fracture. 2. Old healed fourth metatarsal fracture. 3. Mild arthrosis of the PIP joint of the small toe.
[2022-12-07 22:38] VITALS: BP 123/79; BP 85/52; PULSE 77; PULSE 86; RESP 16; TEMP 36.7; O2SAT 99; BMI 21.4
--- NOTE | 2022-12-07 23:25 | ED_ITS ---
HPI - Extremity Injury (Lower) General Chief Complaint: Extremity Injury, Lower Stated Complaint: FOOT INJURY SWELLING DIFF BREATHING Time Seen by Provider: 12/07/22 22:41 History of Present Illness HPI Narrative: Patient is a 52-year-old female a week off fell on the dorsum of her right foot. Patient complaining of pain. No fever no chills no systemic complaints. No head injury. Not on blood thinners. Patient from home. Pain prevented the patient from bearing weight. Positive contusion to the area noted by patient. Related Data Home Medications Medication Instructions Recorded Confirmed mirtazapine 45 mg tablet 45 mg PO BEDTIME 03/27/20 11/06/22 quetiapine 100 mg tablet (Seroquel) 100 mg PO BEDTIME 03/27/20 11/06/22 lisinopril 10 mg tablet 1 tab PO DAILY 09/29/20 11/06/22 pregabalin 150 mg capsule 150 mg PO BID 11/13/20 11/06/22 esomeprazole magnesium 40 mg 40 mg PO QAM 10/16/21 11/06/22 capsule,delayed release cholecalciferol (vitamin D3) 50 50 mcg PO QAM 12/19/21 11/06/22 mcg (2,000 unit) tablet Previous Rx's Medication Instructions Recorded acetaminophen 500 mg tablet 500 mg PO Q6H PRN pain or fever 12/12/20 (Tylenol Extra Strength) #20 tabs ondansetron HCl 4 mg tablet 4 mg PO BID-TID PRN nausea and 12/20/21 vomiting 14 days #4 tabs albuterol sulfate 2.5 mg/3 mL 2.5 mg (3 mL) inhalation Q4-6H PRN 10/08/22 (0.083 %) solution for nebulization shortness of breath or wheezing 30 days #180 mL albuterol sulfate 90 mcg/actuation 2 puff PO QID PRN for wheezing 30 10/08/22 aerosol inhaler (Ventolin HFA) days #18 grams montelukast 10 mg tablet 10 mg PO BEDTIME #30 tabs 10/11/22 prednisone 5 mg tablet 5 mg PO QAM #30 tabs 11/01/22 oxycodone 5 mg tablet 5 mg PO TID PRN pain 30 days #90 11/11/22 tabs budesonide-formoterol HFA 160 2 puff PO BID #10.2 grams 11/28/22 mcg-4.5 mcg/actuation aerosol inhaler (Symbicort) tiotropium bromide 2.5 2 puff PO QAM #4 grams 11/28/22 mcg/actuation mist for inhalation (Spiriva Respimat) ibuprofen 400 mg tablet 400 mg PO Q6H PRN pain #20 tabs 12/07/22 Allergies Allergy/AdvReac Type Severity Reaction Status Date / Time Penicillins [PENICILLINS] Allergy Severe RASH Verified 11/06/22 13:26 Review of Systems Review of Systems: Yes all other systems are reviewed and are negative [facility] Past Medical History Attestation statement: The following information was validated with the patient. Medical History Respiratory failure with hypoxia COPD exacerbation Pre-op examination History of OCD (obsessive compulsive disorder) History of panic attacks Anxiety and depression Radiculopathy, lumbar region HTN (hypertension) Sacroiliitis COPD (chronic obstructive pulmonary disease) Asthma Allergic rhinitis Disc degeneration, lumbar Surgical History History of surgery History of appendectomy Hx of tonsillectomy Status post excision of lipoma History of tubal ligation Hx of excision of mass History of surgery History of laparoscopic cholecystectomy History of esophagogastroduodenoscopy (EGD) History of umbilical hernia repair History of incision and drainage Family History Family History Family/Other Cervical cancer Family/Other Stomach cancer Social History Social History Household Members: Spouse Household Members Other:: grandson Housing: House Do you presently have visiting nurse or other home services: No Alcohol intake: never Patient Tobacco Use Status: Former Tobacco user Quit Date: 2017 Tobacco use type: Cigarette Smoked in Last 30 Days: No Use of substances other than those prescribed or required for medical reasons: No Advance Directives: No Advance Directives Information Provided: No Patient : No service: No Current occupational status: unemployed Sexual orientation: Straight/Heterosexual Gender identity: Female Physical Exam Vital Signs: Vital Signs: Last Vital Signs Temp 98.0 F 12/07/22 22:38 Pulse 77 12/07/22 22:38 Resp 16 12/07/22 22:38 BP 85/52 L 12/07/22 22:38 Pulse Ox 99 12/07/22 22:38 O2 Del Method Nasal Cannula 12/07/22 22:38 Oxygen Flow Rate 2 12/07/22 22:38 BMI result Body Mass Index 21.4 Appearance: Alert. Oriented X3. No acute distress. Eyes: Pupils equal, round and reactive to light. ENT: Pharynx normal. Neck: Normal inspection. Neck supple. No lymph nodes noted. No crepitus CVS: Normal heart rate and rhythm. Pulses normal. Normal S1 and S2 Respiratory: No respiratory distress. Breath sounds normal. No Wheezing. No rales Abdomen: Soft and nontender. No rigidity. No distention. good BS x4 Skin: Skin warm and dry. Normal skin color. Normal skin turgor. Extremities: No lower extremity edema. Neurovascular intact to all extremities. Positive swelling to the right foot. Positive contusion noted. Distal pulses intact. Sensation over the impact. Skin intact. Capillary refill less than 2 seconds. Neuro: Oriented X 3. No motor deficit. No sensory deficit. Moving all extermities. No slurred speech Medical Decision Making Medical Decision Making MDM Narrative: Positive pain to the dorsum of right foot. Positive contusion. There is good pulses there is good sensation. My interpretation patient's x-ray showed no acute fracture. I reviewed radiology is x-ray reading. Additional history obtained through patient's spouse. Will give pain medication follow-up on an outpatient basis. I reviewed patient's previous labs which showed a normal creatinine in September. Currently in stable condition Differential Diagnosis Differential Diagnoses: The differential diagnosis associated with the presentation includes Fracture, dislocation, contusion Admission/Observation Consideration of admission/observation: Escalation of care including admission/observation considered No need is patient's pain is controlled Independent Interpretation I performed an independent interpretation of an: Plain X-Ray Interpretation: X-ray showed no acute fracture Radiology Impression Discussion of test interpretation with radiology: I have reviewed the radiologist's reading. Independent Historian Clinical information obtained from an independent historian. History obtained from or confirmed by: Spouse External Record Review External record reviewed: Prior outpatient labs Previous labs reviewed Prescription Management I considered prescription management with: Pain Medication Chronic Conditions Patient?s care impacted by: Hypertension COPD Discharge Plan Discharge Clinical Impression: Contusion Patient Disposition: Home, Self-Care Instructions: Contusion in Adults (ED) Prescriptions: New ibuprofen 400 mg tablet 400 mg PO Q6H PRN (Reason: pain) Qty: 20 0RF No Action albuterol sulfate [Ventolin HFA] 90 mcg/actuation HFA aerosol inhaler 2 puff PO QID PRN (Reason: for wheezing) 30 Days Qty: 18 3RF albuterol sulfate 2.5 mg /3 mL (0.083 %) solution for nebulization 2.5 mg inhalation Q4-6H PRN (Reason: shortness of breath or wheezing) 30 Days Qty: 180 2RF montelukast 10 mg tablet 10 mg PO BEDTIME Qty: 30 3RF prednisone 5 mg tablet 5 mg PO QAM Qty: 30 3RF oxycodone 5 mg tablet 5 mg PO TID PRN (Reason: pain) 30 Days Qty: 90 0RF Rx Instructions: Partial Fill upon patient request. budesonide-formoterol [Symbicort] 160-4.5 mcg/actuation HFA aerosol inhaler 2 puff PO BID Qty: 10.2 3RF Spiriva Respimat 2.5 mcg/actuation mist 2 puff PO QAM Qty: 4 3RF lisinopril 10 mg tablet 1 tab PO DAILY pregabalin 150 mg Capsule 150 mg PO BID acetaminophen [Tylenol Extra Strength] 500 mg tablet 500 mg PO Q6H PRN (Reason: pain or fever) Qty: 20 0RF quetiapine [Seroquel] 100 mg tablet 100 mg PO BEDTIME mirtazapine 45 mg tablet 45 mg PO BEDTIME ondansetron HCl 4 mg tablet 4 mg PO BID-TID PRN (Reason: nausea and vomiting) 14 Days Qty: 4 0RF esomeprazole magnesium 40 mg capsule,delayed release(DR/EC) 40 mg PO QAM cholecalciferol (vitamin D3) 50 mcg (2,000 unit) tablet 50 mcg PO QAM Referrals: Physician,Unknown J [Primary Care Provider] -
--- NOTE | 2022-12-07 23:36 | PC.NURSE ---
RN to bedside to review discharge paperwork with pt per provider. The pt listened to all instructions, denied questions regarding dc information however then asked for breathing treatment before she goes home despite not being seen for any breathing related problems. Aparicio made aware, the pt remains on her baseline O2 with O2 saturation noted to be 98%. She is awake, alert, watching tv and without distress. RN to await MD re-eval/discussion to determine how to proceed
[2022-12-07 23:55] VITALS: BP 107/73; PULSE 74; RESP 20; O2SAT 98
[2022-12-08] MEDS: Albuterol Sulfate 90 MCG 8 GM INHALER 2 PUFF INHALE (00:03)
== END 2022-12-08 00:05 | disposition home or self-care (01) ==
PROVIDERS: Emergency Provider Emergency Medicine Emergency Medical Services
DX: S90.31XA Contusion of right foot, initial encounter (principal); W20.8XXA Other cause of strike by thrown, projected or falling object, initial encounter; Y93.89 Activity, other specified; Y92.039 Unspecified place in apartment as the place of occurrence of the external cause; Y99.9 Unspecified external cause status; I10 Essential (primary) hypertension; J44.9 Chronic obstructive pulmonary disease, unspecified; F17.200 Nicotine dependence, unspecified, uncomplicated; Z87.891 Personal history of nicotine dependence; Z79.52 Long term (current) use of systemic steroids; Z79.899 Other long term (current) drug therapy
CPT/HCPCS: 73630; 99284

== ENCOUNTER 2022-12-11 12:54 | Outpatient (AMB) | payer MEDICAID, SELFPAY ==
--- NOTE | 2022-12-11 13:05 | A.OFFVIS_ITS ---
Intake Vital Signs 12/11/22 13:11 Height 5 ft 4 in Weight 114 lb BMI 19.6 BP 128/76 Blood Pressure Location Rt brachial Position Sitting Respiration 14 Pulse 81 Pulse Source Pulse Oximeter Pulse Oximetry (%) 98 Oxygen Delivery Method Nasal Cannula Oxygen Flow Rate 2 Intake Visit Reasons: Pill count Intake Note: patient comes in for pill count. Allergies Penicillins [PENICILLINS] Allergy (Severe, Verified 12/11/22 13:12) RASH HPI HPI Comments History of Present Illness Details Deysi is a very pleasant 51 year old female who presents today for a pill count. She continues to were oxygen 247 because her COPD is getting advanced she is getting 2 L per minute for 24 hours a day, 7 days a week. She presented today herself with 66 pills in her possession. She supposed to have 66 pills limits her possession. She reports her pain today 10/07. Reports new pain. She reports and exercise bar fell on her right foot since then she reports severe pain and bruising in the right foot as well as pain and tightness sensation in the anterior hips. I recommended her to start ibuprofen 200 mg q.6 hours not p.r.n. but on the clock for 10 days and then stop. She needs to start abut Profen when bruising will get better on her right foot. If her tigh pains will not go way we will assess this condition next time she is here. I will renew her opioid medications there are 2 on 01/03/2023 she will receive oxycodone 5 mg p.o. t.i.d. p.r.n.. n. She reports adequate analgesia, improved function and decrease in pain, with no noted side effects. She denies any fever, abdominal or groin pain, constipation, urinary retention, sedation, nausea, vomiting, peripheral edema, pruritus or dizziness. Patient states she has an increased ability to perform her activities of daily living and interact socially. Pain is rated at 4-5/10 today. [facility] Medical History Respiratory failure with hypoxia COPD exacerbation Pre-op examination History of OCD (obsessive compulsive disorder) History of panic attacks Anxiety and depression Radiculopathy, lumbar region HTN (hypertension) Sacroiliitis COPD (chronic obstructive pulmonary disease) Asthma Allergic rhinitis Disc degeneration, lumbar Surgical History History of surgery History of appendectomy Hx of tonsillectomy Status post excision of lipoma History of tubal ligation Hx of excision of mass History of surgery History of laparoscopic cholecystectomy History of esophagogastroduodenoscopy (EGD) History of umbilical hernia repair History of incision and drainage Family History Family/Other Cervical cancer Family/Other Stomach cancer Social History Household Members: Spouse Household Members Other:: grandson Housing: House Do you presently have visiting nurse or other home services: No Alcohol intake: never Patient Tobacco Use Status: Former Tobacco user Quit Date: 2017 Tobacco use type: Cigarette service: No Current occupational status: unemployed Sexual orientation: Straight/Heterosexual Gender identity: Female Review of Systems Const All systems reviewed & are unremarkable except as noted in HPI and below Physical Exam Vital Signs: Last Vital Signs Pulse 81 12/11/22 13:11 Resp 14 12/11/22 13:11 BP 128/76 12/11/22 13:11 Pulse Ox 98 12/11/22 13:11 Oxygen Delivery Method Nasal Cannula 12/11/22 13:11 Oxygen Flow Rate 2 12/11/22 13:11 BMI result Body Mass Index 19.6 Const General: cooperative and no acute distress Nutritional Appearance: thin Orientation/consciousness: patient oriented x3 HEENT Head: Yes normocephalic and Yes atraumatic Ears: hearing grossly normal bilaterally Eyes General: appearance normal, both eyes and all related structures Eyelids: Yes eyelids normal Pupils: Equal, round and reactive pupils present EOM: EOMs intact bilaterally Neck Neck: Yes normal visual inspection, Yes full ROM and Yes no JVD Chest Chest palpation & inspection: normal inspection of the chest Resp Effort & Inspection: normal respiratory effort, able to speak in complete sentences, no audible wheezes, no cough, respiratory effort not decreased, no grunting and not labored Cardio Jugular venous distension: no JVD Back/Spine/Pelvis Other: Tenderness of palpation paraspinal spinal region lumbar spine. Gregory test is positive on the left. Pelvic compression test and pelvis destruction test also positive on the left. SLR is also positive on the left. Lassgue sign is also positive on the left. Neuro General: patient oriented x3 Cranial nerves: Yes Equal, round and reactive pupils present Assessment & Plan Assessment & Plan (1) Disc degeneration, lumbar: Code(s): M51.36 - Other intervertebral disc degeneration, lumbar region (2) Spondylosis of lumbar region without myelopathy or radiculopathy: Code(s): M47.816 - Spondylosis without myelopathy or radiculopathy, lumbar region (3) Sacroiliitis: Code(s): M46.1 - Sacroiliitis, not elsewhere classified Plan Next appointment in 1 month. She is doing okay. Opioids help her pain. She does not request escalation. She is compliant with the contract. She denies side effects. She denies constipation. She is wearing oxygen 2 L a minute for 24 hours a day 7 days week. I will renew her opioids, they are due on 01/03/2023. As of her pain in the right ankle with bruising as soon as bruising improve she would need to start on the clock ibuprofen 200 mg for 6 hours. Medications: Refilled oxycodone Partial Fill upon patient request. 5 mg PO TID PRN 90 tabs 0RF pain 30 days M46.1 - Sacroiliitis, not elsewhere classified, M47.816 - Spondylosis without myelopathy or radiculopathy, lumbar region, M51.36 - Other intervertebral disc degeneration, lumbar region Coding Level of Care Code Est Pt Level 3 (31527) Diagnoses Disc degeneration, lumbar M51.36 Spondylosis of lumbar region without myelopathy or radiculopathy M47.816 Sacroiliitis M46.1
[2022-12-11 13:11] VITALS: BP 128/76; PULSE 81; RESP 14; O2SAT 98; BMI 19.6
== END 2022-12-11 13:32 | disposition home or self-care (01) ==
PROVIDERS: PCP Internal Medicine; Visit Provider Anesthesiology
DX: M51.36 Other intervertebral disc degeneration, lumbar region (principal); M47.816 Spondylosis without myelopathy or radiculopathy, lumbar region; M46.1 Sacroiliitis, not elsewhere classified
CPT/HCPCS: 99213

== ENCOUNTER → 2022-12-11 12:54 | Outpatient (BNVA) | payer MEDICAID, SELFPAY | PROVIDERS: PCP Internal Medicine; Visit Provider Anesthesiology | DX: Z51.81 Encounter for therapeutic drug level monitoring (principal); F11.20 Opioid dependence, uncomplicated; M51.36 Other intervertebral disc degeneration, lumbar region; M47.816 Spondylosis without myelopathy or radiculopathy, lumbar region; M46.1 Sacroiliitis, not elsewhere classified | CPT/HCPCS: 99212 ==

== ENCOUNTER 2023-01-08 13:29 | Outpatient (AMB) | payer MEDICAID, SELFPAY ==
[2023-01-08 13:40] VITALS: BP 128/78; PULSE 83; RESP 16; O2SAT 96; BMI 19.7
--- NOTE | 2023-01-08 13:40 | MHC.OFFVIS ---
Intake Vital Signs 01/08/23 13:40 Height 5 ft 4 in Weight 115 lb BMI 19.7 BP 128/78 Blood Pressure Location Lt brachial Position Sitting Respiration 16 Pulse 83 Pulse Source Pulse Oximeter Pulse Oximetry (%) 96 Oxygen Delivery Method Room Air Intake Visit Reasons: PILL COUNT Allergies Penicillins [PENICILLINS] Allergy (Severe, Verified 01/08/23 13:41) RASH HPI HPI Comments History of Present Illness Details Deysi is a very pleasant 52 year old female who presents to the office for follow up chronic pain and chronic opioid therapy management. Patient is prescribed oxycodone 5mg po tid prn. Patient arrived today with the expectation of having 72 pills, she presented 74 pills which were counted in the presence of 2 staff and return to the patient in the original prescription bottle. This demonstrates responsible attitude toward patient's opioid medications. Pain is reported today as 10/07 and last dose of pain medication was taken at 08:00 this morning. Pain is adequately managed on current opioid regimen. Patient denies any recent changes or exacerbations of chronic pain and states the medication allows her to engage in activities of daily living with minimal interruption. Patient denies side effects including somnolence, constipation, itching, dyspnea, rash, dizziness or weakness. Patient reported right foot pain at last visit, that has since resolved. Today she reports burning and tingling at night to the heal of her left foot. She states this improves with massage but is bothersome at night making it hard to sleep. She denies known DM, denies injury to the area. Patient oxygen dependent, 2L/min continuous use for COPD. She denies any recent exacerbations. Prior: Deysi is a very pleasant 51 year old female who presents today for a pill count. She continues to were oxygen 247 because her COPD is getting advanced she is getting 2 L per minute for 24 hours a day, 7 days a week. She presented today herself with 66 pills in her possession. She supposed to have 66 pills limits her possession. She reports her pain today 10/07. Reports new pain. She reports and exercise bar fell on her right foot since then she reports severe pain and bruising in the right foot as well as pain and tightness sensation in the anterior hips. I recommended her to start ibuprofen 200 mg q.6 hours not p.r.n. but on the clock for 10 days and then stop. She needs to start abut Profen when bruising will get better on her right foot. If her tigh pains will not go way we will assess this condition next time she is here. I will renew her opioid medications there are 2 on 01/03/2023 she will receive oxycodone 5 mg p.o. t.i.d. p.r.n.. n. She reports adequate analgesia, improved function and decrease in pain, with no noted side effects. She denies any fever, abdominal or groin pain, constipation, urinary retention, sedation, nausea, vomiting, peripheral edema, pruritus or dizziness. Patient states she has an increased ability to perform her activities of daily living and interact socially. Pain is rated at 4-5/10 today. [facility] Medical History Respiratory failure with hypoxia COPD exacerbation Pre-op examination History of OCD (obsessive compulsive disorder) History of panic attacks Anxiety and depression Radiculopathy, lumbar region HTN (hypertension) Sacroiliitis COPD (chronic obstructive pulmonary disease) Asthma Allergic rhinitis Disc degeneration, lumbar Surgical History History of surgery History of appendectomy Hx of tonsillectomy Status post excision of lipoma History of tubal ligation Hx of excision of mass History of surgery History of laparoscopic cholecystectomy History of esophagogastroduodenoscopy (EGD) History of umbilical hernia repair History of incision and drainage Family History Family/Other Cervical cancer Family/Other Stomach cancer Social History Household Members: Spouse Household Members Other:: grandson Housing: House Do you presently have visiting nurse or other home services: No Alcohol intake: never Patient Tobacco Use Status: Former Tobacco user Quit Date: 2017 Tobacco use type: Cigarette service: No Current occupational status: unemployed Sexual orientation: Straight/Heterosexual Gender identity: Female Review of Systems Const All systems reviewed & are unremarkable except as noted in HPI and below Physical Exam Vital Signs: Last Vital Signs Pulse 83 01/08/23 13:40 Resp 16 01/08/23 13:40 BP 128/78 01/08/23 13:40 Pulse Ox 96 01/08/23 13:40 Oxygen Delivery Method Room Air 01/08/23 13:40 BMI result Body Mass Index 19.7 General: awake, alert, oriented. Answers questions appropriately. Fully engaged in examination. Skin: warm, dry, intact HEENT: Normocephalic. Hearing intact. Cardiac: External chest normal in appearance. Respiratory: No cough, audible wheezing or stridor. O2 2L/min continuous use via NC. Abdomen: without gross distension. MS: No obvious swelling or deformities. Able to transition from sit to stand unassisted. Ambulates with bilaterally normal heel strike and toe off Neurological: Oriented to person, place, time and situation. Thought process intact. Psychiatric: Appropriate mood and affect. Good judgment and insight. Assessment & Plan Assessment & Plan (1) Disc degeneration, lumbar: Code(s): M51.36 - Other intervertebral disc degeneration, lumbar region (2) Spondylosis of lumbar region without myelopathy or radiculopathy: Code(s): M47.816 - Spondylosis without myelopathy or radiculopathy, lumbar region (3) Sacroiliitis: Code(s): M46.1 - Sacroiliitis, not elsewhere classified Plan Masspat was reviewed and without concerns. No obvious signs of diversion, abuse or misuse of the opioid medications. Will send in prescription for Oxycodone 5mg po TID prn with an advanced date of 02/02/2023. Lidocaine 5% topical gel ordered for left ankle/heel discomfort. Apply BID as needed. Patient to follow-up in the office in 1 month, sooner if needed. All questions and concerns have been answered and patient agrees with the plan. Medications: New lidocaine 5% 1 appl topical BID PRN 50 grams 1RF pain Refilled oxycodone Partial Fill upon patient request. 5 mg PO TID 30 days PRN 90 tabs 0RF pain M46.1 - Sacroiliitis, not elsewhere classified, M47.816 - Spondylosis without myelopathy or radiculopathy, lumbar region, M51.36 - Other intervertebral disc degeneration, lumbar region Coding Level of Care Code Est Pt Level 4 (39507) Diagnoses Disc degeneration, lumbar M51.36 Spondylosis of lumbar region without myelopathy or radiculopathy M47.816 Sacroiliitis M46.1
== END 2023-01-08 13:42 | disposition home or self-care (01) ==
PROVIDERS: PCP Internal Medicine; Visit Provider Registered Nurse Emergency
DX: M51.36 Other intervertebral disc degeneration, lumbar region (principal); M47.816 Spondylosis without myelopathy or radiculopathy, lumbar region; M46.1 Sacroiliitis, not elsewhere classified
CPT/HCPCS: 99214

== ENCOUNTER → 2023-01-08 13:29 | Outpatient (BNVA) | payer MEDICAID, SELFPAY | PROVIDERS: PCP Internal Medicine; Visit Provider Registered Nurse Emergency | DX: Z51.81 Encounter for therapeutic drug level monitoring (principal); F11.20 Opioid dependence, uncomplicated; M51.36 Other intervertebral disc degeneration, lumbar region; M46.1 Sacroiliitis, not elsewhere classified; M47.816 Spondylosis without myelopathy or radiculopathy, lumbar region | CPT/HCPCS: 99212 ==

== ENCOUNTER 2023-01-16 22:52 | Emergency (ER) | payer MEDICAID, SELFPAY ==
--- NOTE | 2023-01-16 | ECG_ITS ---
Test Reason : SOB Blood Pressure : / mmHG Vent. Rate : 102 BPM Atrial Rate : 102 BPM P-R Int : 122 ms QRS Dur : 080 ms QT Int : 326 ms P-R-T Axes : 082 047 077 degrees QTc Int : 424 ms Sinus tachycardia Nonspecific T wave abnormality Abnormal ECG When compared with ECG of 13-NOV-2020 16:14, Heart rate has increased Referred By: Generic ED Physician Electronically Signed By:REBEKA LOPEZ MD
--- NOTE | ~2023-01-16 | XR_ITS ---
EXAMINATION: XR CHEST CLINICAL INFORMATION: Shortness of breath. COMPARISON: 09/04/2022. TECHNIQUE: Frontal view of the chest was obtained. FINDINGS: The patient is rotated. The cardiomediastinal silhouette is within normal limits and stable. There is no focal lung consolidation or pleural effusion. The bony structures and soft tissues are unremarkable. XR/XR chest 1V IMPRESSION: No evidence for active cardiopulmonary disease.
[2023-01-16 22:59] VITALS: BP 105/67; BP 130/80; PULSE 102; PULSE 105; RESP 18; TEMP 37.4; O2SAT 92; O2SAT 99; BMI 21.2
[2023-01-16 23:04] VITALS: PULSE 102
--- NOTE | 2023-01-16 23:13 | ED_ITS ---
HPI - SOB/Dyspnea General Chief Complaint: Dyspnea Stated Complaint: COPD exacerbation Time Seen by Provider: 01/16/23 23:02 Source: patient Mode of arrival: EMS Limitations: no limitations History of Present Illness HPI Narrative: Patient with advanced COPD with minimal response to bronchodilator therapy on oxygen at home on prednisone 5 mg daily comes here for increased shortness of breath started today no relief with using nebulizing an inhaler at home received 125 mg Solu-Medrol and DuoNeb treatment by EMS Related Data Home Medications Medication Instructions Recorded Confirmed mirtazapine 45 mg tablet 45 mg PO BEDTIME 03/27/20 11/06/22 quetiapine 100 mg tablet (Seroquel) 100 mg PO BEDTIME 03/27/20 11/06/22 lisinopril 10 mg tablet 1 tab PO DAILY 09/29/20 11/06/22 pregabalin 150 mg capsule 150 mg PO BID 11/13/20 11/06/22 esomeprazole magnesium 40 mg 40 mg PO QAM 10/16/21 11/06/22 capsule,delayed release cholecalciferol (vitamin D3) 50 50 mcg PO QAM 12/19/21 11/06/22 mcg (2,000 unit) tablet Previous Rx's Medication Instructions Recorded acetaminophen 500 mg tablet 500 mg PO Q6H PRN pain or fever 12/12/20 (Tylenol Extra Strength) #20 tabs ondansetron HCl 4 mg tablet 4 mg PO BID-TID PRN nausea and 12/20/21 vomiting 14 days #4 tabs albuterol sulfate 2.5 mg/3 mL 2.5 mg (3 mL) inhalation Q4-6H PRN 10/08/22 (0.083 %) solution for nebulization shortness of breath or wheezing 30 days #180 mL albuterol sulfate 90 mcg/actuation 2 puff PO QID PRN for wheezing 30 10/08/22 aerosol inhaler (Ventolin HFA) days #18 grams montelukast 10 mg tablet 10 mg PO BEDTIME #30 tabs 10/11/22 prednisone 5 mg tablet 5 mg PO QAM #30 tabs 11/01/22 budesonide-formoterol HFA 160 2 puff PO BID #10.2 grams 11/28/22 mcg-4.5 mcg/actuation aerosol inhaler (Symbicort) tiotropium bromide 2.5 2 puff PO QAM #4 grams 11/28/22 mcg/actuation mist for inhalation (Spiriva Respimat) ibuprofen 400 mg tablet 400 mg PO Q6H PRN pain #20 tabs 12/07/22 lidocaine 5 % topical ointment 1 appl topical BID PRN pain #50 01/08/23 grams oxycodone 5 mg tablet 5 mg PO TID PRN pain 30 days #90 01/08/23 tabs benzonatate 200 mg capsule 200 mg PO TID PRN cough #30 caps 01/17/23 cefuroxime axetil 500 mg tablet 500 mg PO BID 10 days #20 tabs 01/17/23 Allergies Allergy/AdvReac Type Severity Reaction Status Date / Time Penicillins [PENICILLINS] Allergy Severe RASH Verified 01/16/23 23:03 Review of Systems 2 Review of Systems: Yes all other systems are reviewed and are negative [facility] Past Medical History Medical History Respiratory failure with hypoxia COPD exacerbation Pre-op examination History of OCD (obsessive compulsive disorder) History of panic attacks Anxiety and depression Radiculopathy, lumbar region HTN (hypertension) Sacroiliitis COPD (chronic obstructive pulmonary disease) Asthma Allergic rhinitis Disc degeneration, lumbar Surgical History History of surgery History of appendectomy Hx of tonsillectomy Status post excision of lipoma History of tubal ligation Hx of excision of mass History of surgery History of laparoscopic cholecystectomy History of esophagogastroduodenoscopy (EGD) History of umbilical hernia repair History of incision and drainage Family History Family History Family/Other Cervical cancer Family/Other Stomach cancer Social History Social History Household Members: Spouse Household Members Other:: grandson Housing: House Do you presently have visiting nurse or other home services: No Alcohol intake: never Patient Tobacco Use Status: Former Tobacco user Quit Date: 2017 Tobacco use type: Cigarette Smoked in Last 30 Days: No Use of substances other than those prescribed or required for medical reasons: Yes Substance Use Type: Marijuana Advance Directives: No Advance Directives Information Provided: Yes service: No Current occupational status: unemployed Sexual orientation: Straight/Heterosexual Gender identity: Female Physical Exam 2 Vital Signs: Vital Signs: Last Vital Signs Temp 99.4 F 01/16/23 22:59 Pulse 76 01/17/23 04:11 Resp 16 01/17/23 04:11 BP 128/80 01/17/23 01:33 Pulse Ox 95 01/17/23 04:11 O2 Del Method Nasal Cannula 01/17/23 04:11 O2 Flow Rate 2 01/17/23 04:11 BMI result Body Mass Index 21.2 Appearance: Alert. Oriented X3. In moderate respiratory distress Eyes: PERRLA, No Nystagmus ENT: Pharynx normal. Oral Mucosa moist Neck: Normal inspection. Neck supple. CVS: Normal heart rate and rhythm. Pulses normal. Respiratory:mod respiratory distress. Equal air entry bilateral, prolonged expiration with wheezing Abdomen: Soft and nontender. Bowel sounds are present, no mass palpable, no CVA tenderness Skin: Skin warm and dry. Normal skin color. Normal skin turgor. Extremities: No lower extremity edema. No calf tenderness Neuro: Oriented X 3. No motor deficit. Medications Administered Discontinued Medications Generic Name Dose Route Start Last Admin Trade Name Freq PRN Reason Stop Dose Admin Adenosine 6 mg 01/17/23 01:21 01/17/23 01:26 Adenosine 6 Mg/2 Ml Vial IVPUSH 01/17/23 01:22 6 mg STAT STA Administration Albuterol Sulfate 2.5 mg/ 0 mg 01/16/23 23:40 01/16/23 23:44 Albuterol/Ipratropium 3 ml INHALE 01/16/23 23:41 5 dose ONCE ONE Administration Guaifenesin/Codeine Phosphate 10 ml 01/17/23 00:41 01/17/23 01:55 Guaifen/Codeine Sf 200/20/10ml 10 Ml Liquid PO 01/17/23 00:42 Not Given ONCE ONE Ceftriaxone Sodium 1 gm/ 50 mls @ 100 mls/hr 01/16/23 23:18 01/17/23 00:36 Sodium Chloride IV 01/16/23 23:47 Infused ONCE ONE Infusion Sodium Chloride 1,000 mls @ 999 mls/hr 01/17/23 00:32 01/17/23 01:55 Ns IV 01/17/23 01:32 Infused .Q1H1M ONE Infusion Lorazepam 1 mg 01/17/23 02:49 01/17/23 03:22 Lorazepam 1 Mg Tablet PO 01/17/23 02:50 1 mg ONCE ONE Administration Medical Decision Making Medical Decision Making [facility] Narrative: Patient with advanced COPD comes in for increased shortness of breath with cough noticed to have paroxysmal SVTs during stay in the ER chest x-ray negative for acute infiltrate patient is on chronic prednisone treatment wbc were elevated likely from prednisone. Patient advised to stay in hospital for management but patient refused signed AMA patient is saturating 92% at room air Differential Diagnosis Differential Diagnoses: The differential diagnosis associated with the presentation includes COPD exacerbations/pneumonia/bronchitis/acute on chronic respiratory failure Admission/Observation Consideration of admission/observation: Escalation of care including admission/observation considered Lab Data [facility] Lab Attestation statement: I reviewed the patient's lab results. 01/16/23 23:36 01/16/23 23:36 Labs: Lab Results 01/16/23 01/16/23 Range/Units 23:07 23:36 WBC 22.1 H (4.8-10.8) X10*3/uL RBC 4.55 (4.20-5.50) X10*6/uL Hgb 13.6 (12.0-16.0) g/dl Hct 41.7 (37.0-47.0) % MCV 91.6 (80.0-98.0) fL MCH 29.9 (27.0-33.0) pg MCHC 32.6 (31.0-35.0) g/dl RDW 14.3 (11.0-16.0) % Plt Count 259 (160-400) X10*3/uL MPV 9.2 L (9.4-12.3) fL Immature Gran % (Auto) 0.5 H (0.0-0.4) % Neut % (Auto) 83.6 H (45-73) % Lymph % (Auto) 9.9 L (20-40) % Maury % (Auto) 5.4 (2-11) % Eos % (Auto) 0.2 (0-4) % Baso % (Auto) 0.4 (0-2) % Lymph # (Auto) 2.2 (1.2-4.9) X10*3/uL Maury # (Auto) 1.2 (0.1-1.2) X10*3/uL Eos # (Auto) 0.1 (0.0-0.4) X10*3/uL Baso # (Auto) 0.1 (0.0-0.2) X10*3/uL Abs Immat Gran (auto) 0.10 H (0.00-0.03) X10*3/uL Absolute Neuts (auto) 18.5 H (2.0-8.3) x10*3/uL Absolute Nucleated RBC 0.000 (0.0-0.012) X10*3/uL Nucleated RBC % (auto) 0.0 (0.0-0.2) /100WBC Sodium 140 (135-145) mmol/L Potassium 3.6 (3.3-5.1) mmol/L Chloride 102 (96-108) mmol/L Carbon Dioxide 26 (22-29) mmol/L Anion Gap 16 (12-20) BUN 12 (9-16) mg/dL Creatinine 0.56 (0.5-1.4) mg/dL Estim Creat Clear Calc 92.9 Estimated GFR > 60 Random Glucose 127 H (60-115) mg/dL Lactic Acid 0.8 (0.5-2.0) mmol/L Calcium 9.6 (8.4-10.2) mg/dL Total Bilirubin 0.4 (0.0-1.0) mg/dL AST 13 (5-31) U/L ALT 8 (0-31) U/L Alkaline Phosphatase 69 (39-117) U/L Total Protein 6.9 (6.5-8.0) g/dL Albumin 4.0 (3.5-5.0) g/dL Influenza Type A (PCR) NEGATIVE (Negative) Influenza Type B (PCR) NEGATIVE (Negative) RSV RNA Qual (PCR) NEGATIVE (Negative) SARS-CoV-2 RNA (RT-PCR) NEGATIVE (Negative) Independent Interpretation I performed an independent interpretation of an: EKG Interpretation: Sinus tachycardia with heart rate of 102 beats per minute acute ST-T changes no acute ischemia Radiology Impression Discussion of test interpretation with radiology: I have reviewed the radiologist's reading. Critical Care Time Critical Care Time Critical Care Time: Yes Total Critical Care Time: 55 Attestation: The patient was critically ill with a high probability of imminent or life threatening deterioration. I spent greater than 60 minutes of discontinuous time evaluating the patient,delivering critical care at the bedside, discussing and evaluating pertinent data with consultants. Critical care time does not include time spent performing separately billable procedures or teaching. Total time spent performing critical care was 55 minutes. Discharge Plan Discharge Clinical Impression: Acute and chronic respiratory failure, COPD (chronic obstructive pulmonary disease), Paroxysmal supraventricular tachycardia Patient Disposition: Left Against Medical Advice Instructions: Supraventricular Tachycardia (ED), COPD (Chronic Obstructive Pulmonary Disease) (ED) Additional Instructions: Increase your dose of prednisone to 40 mg daily Antibiotic as prescribed Continue nebulizing treatment and oxygen Yes signed against medical advise need to stay in the hospital for better management come back to the ER for further management Prescriptions: New benzonatate 200 mg capsule 200 mg PO TID PRN (Reason: cough) Qty: 30 0RF cefuroxime axetil 500 mg tablet 500 mg PO BID 10 Days Qty: 20 0RF No Action albuterol sulfate [Ventolin HFA] 90 mcg/actuation HFA aerosol inhaler 2 puff PO QID PRN (Reason: for wheezing) 30 Days Qty: 18 3RF albuterol sulfate 2.5 mg /3 mL (0.083 %) solution for nebulization 2.5 mg inhalation Q4-6H PRN (Reason: shortness of breath or wheezing) 30 Days Qty: 180 2RF montelukast 10 mg tablet 10 mg PO BEDTIME Qty: 30 3RF prednisone 5 mg tablet 5 mg PO QAM Qty: 30 3RF budesonide-formoterol [Symbicort] 160-4.5 mcg/actuation HFA aerosol inhaler 2 puff PO BID Qty: 10.2 3RF Spiriva Respimat 2.5 mcg/actuation mist 2 puff PO QAM Qty: 4 3RF lisinopril 10 mg tablet 1 tab PO DAILY pregabalin 150 mg Capsule 150 mg PO BID acetaminophen [Tylenol Extra Strength] 500 mg tablet 500 mg PO Q6H PRN (Reason: pain or fever) Qty: 20 0RF ibuprofen 400 mg tablet 400 mg PO Q6H PRN (Reason: pain) Qty: 20 0RF quetiapine [Seroquel] 100 mg tablet 100 mg PO BEDTIME mirtazapine 45 mg tablet 45 mg PO BEDTIME ondansetron HCl 4 mg tablet 4 mg PO BID-TID PRN (Reason: nausea and vomiting) 14 Days Qty: 4 0RF esomeprazole magnesium 40 mg capsule,delayed release(DR/EC) 40 mg PO QAM cholecalciferol (vitamin D3) 50 mcg (2,000 unit) tablet 50 mcg PO QAM oxycodone 5 mg tablet 5 mg PO TID PRN (Reason: pain) 30 Days Qty: 90 0RF Rx Instructions: Partial Fill upon patient request. lidocaine 5 % ointment 1 appl topical BID PRN (Reason: pain) Qty: 50 1RF Stand Alone Forms: Against Medical Advice Interventions: ED Discharge Assessment Last Done: 01/17/23 04:21
[2023-01-16 23:43] LABS: MANUAL DIFF FLAG NO
[2023-01-16 23:44] LABS: Basophils Absolute Auto 0.1 X10*3/uL (0.0-0.2); Basophils Percent Auto 0.4 % (0-2); Eosinophils Absolute Auto 0.1 X10*3/uL (0.0-0.4); Eosinophils Percent Auto 0.2 % (0-4); Hematocrit 41.7 % (37.0-47.0); Hemoglobin 13.6 g/dl (12.0-16.0); Imm Gran Pct Auto 0.5 % (0.0-0.4); Lymphocytes Absolute Auto 2.2 X10*3/uL (1.2-4.9); Lymphocytes Percent Auto 9.9 % (20-40); Mean Corpuscular HGB Conc 32.6 g/dl (31.0-35.0); Mean Corpuscular Hemoglobin 29.9 pg (27.0-33.0); Mean Corpuscular Volume 91.6 fL (80.0-98.0); Mean Platelet Volume 9.2 fL (9.4-12.3); Monocytes Absolute Auto 1.2 X10*3/uL (0.1-1.2); Monocytes Percent Auto 5.4 % (2-11); Neutrophils Absolute Auto 18.5 x10*3/uL (2.0-8.3); Neutrophils Percent Auto 83.6 % (45-73); Platelet Count 259 X10*3/uL (160-400); Red Blood Count 4.55 X10*6/uL (4.20-5.50); Red Cell Distribution Width 14.3 % (11.0-16.0); White Blood Count 22.1 X10*3/uL (4.8-10.8)
[2023-01-16] MEDS: Albuterol Sulfate 2.5 MG, Albuterol/Iprat 2.5/0.5MG 3 ML 3 ML INHALE (23:44)
[2023-01-16 23:47] VITALS: PULSE 92; RESP 18; O2SAT 92
[2023-01-16 23:48] LABS: Influenza A PCR NEGATIVE (Negative); Influenza B PCR NEGATIVE (Negative); Resp Syncy Virus RNA Qual PCR NEGATIVE (Negative); SARS COV2 PCR INHOUSE NEGATIVE (Negative)
[2023-01-16 23:54] LABS: Lactic Acid 0.8 mmol/L (0.5-2.0)
[2023-01-16] MEDS: cefTRIAXone sodium 1 GM in 0.9 % Sodium Chloride 50 ML IV (23:55)
--- NOTE | 2023-01-16 23:57 | PC.NURSE ---
labs/blood cultures drawn. respiratory to bedside for nebulizer tx. IV abx iinfusing per may.
[2023-01-16 23:58] LABS: Alanine Aminotransferase 8 U/L (0-31); Alkaline Phosphatase 69 U/L (39-117); Anion Gap 16 (12-20); Aspartate Amino Transferase 13 U/L (5-31); Bilirubin Total 0.4 mg/dL (0.0-1.0); Blood Urea Nitrogen 12 mg/dL (9-16); Calcium 9.6 mg/dL (8.4-10.2); Carbon Dioxide 26 mmol/L (22-29); Chloride 102 mmol/L (96-108); Creatinine Clr Calc Pharmacy 92.9; Estimated Glomerular Filt Rate > 60; Glucose Random 127 mg/dL (60-115); Potassium 3.6 mmol/L (3.3-5.1); Sodium 140 mmol/L (135-145); Total Protein 6.9 g/dL (6.5-8.0)
--- NOTE | 2023-01-17 00:33 | ECG_ITS ---
Test Reason : TACHYCARDIA Blood Pressure : / mmHG Vent. Rate : 146 BPM Atrial Rate : 000 BPM P-R Int : 000 ms QRS Dur : 078 ms QT Int : 338 ms P-R-T Axes : 000 047 258 degrees QTc Int : [address] & T wave abnormality, consider inferior ischemia ST & T wave abnormality, consider anterolateral ischemia Abnormal ECG When compared with ECG of 16-JAN-2023 23:02, ST now depressed in Inferior leads ST now depressed in Anterior leads T wave inversion now evident in Inferior leads T wave inversion now evident in Anterolateral leads Referred By: Jeison Tillman Electronically Signed By:REBEKA LOPEZ MD
--- NOTE | 2023-01-17 00:35 | PC.NURSE ---
pt sinus tachy on monitor 152 bpm. pt denies cp/palpitations/sob. repeat ekg being obtained. ivf bolus infusing. Dr. Tillman aware.
[2023-01-17 00:36] VITALS: BP 128/80; PULSE 145; RESP 20; O2SAT 96
[2023-01-17] MEDS: 0.9 % Sodium Chloride 1,000 ML 999 ML IV (00:40)
--- NOTE | 2023-01-17 00:41 | PC.NURSE ---
svt on monitor and ekg. resolved with vasovagal maneuvers. 90 bpm nsr on montior.
--- NOTE | 2023-01-17 01:25 | PC.NURSE ---
pt back into svt not resolved with vasovagal maneuvers.
[2023-01-17] MEDS: Adenosine 6 MG/2 ML VIAL IVPUSH (01:26)
--- NOTE | 2023-01-17 01:29 | PC.NURSE ---
crash cart in room with pacer pads on pt. adenosine administered per may. nsr on monitor [address] Tillman at bedside.
[2023-01-17 01:33] VITALS: BP 128/80; PULSE 88; RESP 16; O2SAT 100
--- NOTE | 2023-01-17 01:55 | PC.NURSE ---
pt refused robitussin as is liquid and causes vomiting for her. dr sanchez aware.
--- NOTE | 2023-01-17 03:15 | PC.NURSE ---
pt requested something to help with anxiety; Dr. Tillman notified who put order for ativan. pt medicated per order. shortly after pt stated she did not want to stay in the hospital; Dr. Tillman notified - at bedside.
[2023-01-17] MEDS: LORazepam 1 MG TABLET PO (03:22)
[2023-01-17 04:11] VITALS: PULSE 76; RESP 16; O2SAT 95
== END 2023-01-17 04:22 | disposition left against medical advice (07) ==
PROVIDERS: Emergency Provider Internal Medicine
DX: J96.20 Acute and chronic respiratory failure, unspecified whether with hypoxia or hypercapnia (principal); Z99.81 Dependence on supplemental oxygen; J44.9 Chronic obstructive pulmonary disease, unspecified; I47.19 Other supraventricular tachycardia; R06.02 Shortness of breath; Z20.822 Contact with and (suspected) exposure to COVID-19; Z20.828 Contact with and (suspected) exposure to other viral communicable diseases; I10 Essential (primary) hypertension; K75.81 Nonalcoholic steatohepatitis (NASH); Z87.891 Personal history of nicotine dependence; Z79.52 Long term (current) use of systemic steroids
CPT/HCPCS: 0241U; 36415; 71045; 80053; 83605; 85025; 87040; 93005; 94640; 96361; 96365; 96375; 99285; J0153; J0696

== ENCOUNTER 2023-02-05 13:48 | Outpatient (AMB) | payer MEDICAID, SELFPAY ==
--- NOTE | 2023-02-05 14:02 | MHC.OFFVIS ---
Intake Vital Signs 02/05/23 14:03 Weight 114 lb 6 oz BP 125/68 Blood Pressure Location Lt brachial Position Sitting Respiration 16 Pulse 86 Pulse Source Pulse Oximeter Pulse Oximetry (%) 94 Oxygen Delivery Method Room Air Intake Visit Reasons: Medication Count Allergies Penicillins [PENICILLINS] Allergy (Severe, Verified 02/05/23 14:03) RASH HPI HPI Comments History of Present Illness Details Deysi is a very pleasant 52 year old female who presents to the office for follow up chronic pain and chronic opioid therapy management. Patient is prescribed oxycodone 5mg po tid prn. Patient arrived today with the expectation of having 81 pills, she presented 81 pills which were counted in the presence of two staff members and returned to the patient in the original prescription bottle. This demonstrates responsible attitude toward patient's opioid medications. Pain is reported today as 7/10 and last dose of pain medication was taken at 1pm today. Pain is adequately managed on current opioid regimen. Patient denies any recent changes or exacerbations of chronic pain and states the medication allows her to engage in activities of daily living with minimal interruption. Patient denies side effects including somnolence, constipation, itching, dyspnea, rash, dizziness or weakness. Patient oxygen dependent, 2L/min continuous use for COPD. She denies any recent exacerbations. [facility] Medical History Respiratory failure with hypoxia COPD exacerbation Pre-op examination History of OCD (obsessive compulsive disorder) History of panic attacks Anxiety and depression Radiculopathy, lumbar region HTN (hypertension) Sacroiliitis COPD (chronic obstructive pulmonary disease) Asthma Allergic rhinitis Disc degeneration, lumbar Surgical History History of surgery History of appendectomy Hx of tonsillectomy Status post excision of lipoma History of tubal ligation Hx of excision of mass History of surgery History of laparoscopic cholecystectomy History of esophagogastroduodenoscopy (EGD) History of umbilical hernia repair History of incision and drainage Family History Family/Other Cervical cancer Family/Other Stomach cancer Social History Household Members: Spouse Household Members Other:: grandson Housing: House Do you presently have visiting nurse or other home services: No Alcohol intake: never Patient Tobacco Use Status: Former Tobacco user Quit Date: 2017 Tobacco use type: Cigarette Substance Use Type: Marijuana service: No Current occupational status: unemployed Sexual orientation: Straight/Heterosexual Gender identity: Female Review of Systems Const All systems reviewed & are unremarkable except as noted in HPI and below Physical Exam Vital Signs: Last Vital Signs Pulse 86 02/05/23 14:03 Resp 16 02/05/23 14:03 BP 125/68 02/05/23 14:03 Pulse Ox 94 02/05/23 14:03 Oxygen Delivery Method Room Air 02/05/23 14:03 General: awake, alert, oriented. Answers questions appropriately. Fully engaged in examination. Skin: warm, dry, intact HEENT: Normocephalic. Hearing intact. Cardiac: External chest normal in appearance. Respiratory: No cough, audible wheezing or stridor. O2 2L/min continuous use via NC. Abdomen: without gross distension. MS: No obvious swelling or deformities. Able to transition from sit to stand unassisted. Ambulates with bilaterally normal heel strike and toe off Neurological: Oriented to person, place, time and situation. Thought process intact. Psychiatric: Appropriate mood and affect. Good judgment and insight. Results Reviewed Results Reviewed: MRI LUMBAR SPINE WITHOUT CONTRAST EXAM DATE 05/07/2019 The marrow signal is within normal limits. Moderate disc space narrowing at L3-L4, severe loss of disc height L4-5 with endplate spurring mild endplate edema laterally on the right at L4-5. Mild rightward curvature of lumbar spine. No compression fractures. Trace anterior subluxation at L4-5. The paraspinal soft tissues appear normal. Bony pelvis is normal. Conus medullaris: Normal terminating at the level of L1. No level a spinal cord abnormalities. The cauda equina nerve roots are normal. Spinal levels: L1-L2: No disc pathology. No central canal stenosis or foraminal narrowing. L2-L3: Very mild disc bulge presents without central canal stenosis or foraminal encroachment. L3-L4: Moderate loss of disc height with large left foraminal disc extrusion! Severely compressing the exiting left L3 nerve root. Underlying mild disc bulge and mild facet arthropathy. No central canal stenosis. L4-5: Significant loss of disc height with broad-based disc bulge and right foraminal extraforaminal disc protrusion mildly distorting the exiting right L4 nerve root. Moderate facet arthropathy without central canal stenosis. L5-S1: Mild facet arthrosis no disc pathology: No central canal stenosis, or foraminal narrowing. Assessment & Plan Assessment & Plan (1) Disc degeneration, lumbar: Code(s): M51.36 - Other intervertebral disc degeneration, lumbar region (2) Spondylosis of lumbar region without myelopathy or radiculopathy: Code(s): M47.816 - Spondylosis without myelopathy or radiculopathy, lumbar region (3) Sacroiliitis: Code(s): M46.1 - Sacroiliitis, not elsewhere classified Plan [place]pat was reviewed and without concerns. No obvious signs of diversion, abuse or misuse of the opioid medications. Will send in prescription for Oxycodone 5mg po TID prn with an advanced date of 03/05/2023. Patient to follow-up in the office in 1 month, sooner if needed. All questions and concerns have been answered and patient agrees with the plan. Medications: Refilled oxycodone Partial Fill upon patient request. 5 mg PO TID PRN 90 tabs 0RF pain 30 days M46.1 - Sacroiliitis, not elsewhere classified, M47.816 - Spondylosis without myelopathy or radiculopathy, lumbar region, M51.36 - Other intervertebral disc degeneration, lumbar region Coding Level of Care Code Est Pt Level 3 (27637) Diagnoses Disc degeneration, lumbar M51.36 Spondylosis of lumbar region without myelopathy or radiculopathy M47.816 Sacroiliitis M46.1
[2023-02-05 14:03] VITALS: BP 125/68; PULSE 86; RESP 16; O2SAT 94
== END 2023-02-05 14:10 | disposition home or self-care (01) ==
PROVIDERS: PCP Internal Medicine; Visit Provider Registered Nurse Emergency
DX: M51.36 Other intervertebral disc degeneration, lumbar region (principal); M47.816 Spondylosis without myelopathy or radiculopathy, lumbar region; M46.1 Sacroiliitis, not elsewhere classified
CPT/HCPCS: 99213

== ENCOUNTER → 2023-02-05 13:48 | Outpatient (BNVA) | payer MEDICAID, SELFPAY | PROVIDERS: PCP Internal Medicine; Visit Provider Registered Nurse Emergency | DX: Z51.81 Encounter for therapeutic drug level monitoring (principal); M51.36 Other intervertebral disc degeneration, lumbar region; M47.816 Spondylosis without myelopathy or radiculopathy, lumbar region; M46.1 Sacroiliitis, not elsewhere classified | CPT/HCPCS: 99212 ==

== ENCOUNTER 2023-03-12 14:07 | Outpatient (AMB) | payer MEDICAID, SELFPAY ==
--- NOTE | 2023-03-12 14:22 | A.OFFVIS_ITS ---
Intake Vital Signs 03/12/23 14:23 Height 5 ft Weight 117 lb 4 oz BMI 22.9 BP 118/73 Blood Pressure Location Lt brachial Position Sitting Respiration 16 Pulse 84 Pulse Source Pulse Oximeter Pulse Oximetry (%) 97 Oxygen Delivery Method Room Air Intake Visit Reasons: PILL COUNT/confirmed Allergies Penicillins [PENICILLINS] Allergy (Severe, Verified 03/12/23 14:22) RASH HPI HPI Comments History of Present Illness Details Deysi is a very pleasant 52 year old female who presents to the office for follow up chronic pain and chronic opioid therapy management. Patient is prescribed oxycodone 5mg po tid prn. Patient arrived today with the expectation of having 66 pills, she presented 67 pills which were counted in the presence of two staff members and returned to the patient in the original pr escription bottle. This demonstrates responsible attitude toward patient's opioid medications. Pain is reported today as 8/10 and last dose of pain medication was taken at 1:50pm today. Pain is adequately managed on current opioid regimen. Patient denies any recent changes or exacerbations of chronic pain and states the medication allows her to engage in activities of daily living with minimal interruption. Patient denies side effects including somnolence, constipation, itching, dyspnea, rash, dizziness or weakness. Patient oxygen dependent, 2L/min continuous use for COPD. She denies any recent exacerbations. [facility] Medical History Respiratory failure with hypoxia COPD exacerbation Pre-op examination History of OCD (obsessive compulsive disorder) History of panic attacks Anxiety and depression Radiculopathy, lumbar region HTN (hypertension) Sacroiliitis COPD (chronic obstructive pulmonary disease) Asthma Allergic rhinitis Disc degeneration, lumbar Surgical History History of surgery History of appendectomy Hx of tonsillectomy Status post excision of lipoma History of tubal ligation Hx of excision of mass History of surgery History of laparoscopic cholecystectomy History of esophagogastroduodenoscopy (EGD) History of umbilical hernia repair History of incision and drainage Family History Family/Other Cervical cancer Family/Other Stomach cancer Social History Household Members: Spouse Household Members Other:: grandson Housing: House Do you presently have visiting nurse or other home services: No Alcohol intake: never Patient Tobacco Use Status: Former Tobacco user Quit Date: 2017 Tobacco use type: Cigarette Substance Use Type: Marijuana service: No Current occupational status: unemployed Sexual orientation: Straight/Heterosexual Gender identity: Female Review of Systems Const All systems reviewed & are unremarkable except as noted in HPI and below Physical Exam Vital Signs: Last Vital Signs Pulse 84 03/12/23 14:23 Resp 16 03/12/23 14:23 BP 118/73 03/12/23 14:23 Pulse Ox 97 03/12/23 14:23 Oxygen Delivery Method Room Air 03/12/23 14:23 BMI result Body Mass Index 22.9 General: awake, alert, oriented. Answers questions appropriately. Fully engaged in examination. Skin: warm, dry, intact HEENT: Normocephalic. Hearing intact. Cardiac: External chest normal in appearance. Respiratory: No cough, audible wheezing or stridor. O2 2L/min continuous use via NC. Abdomen: without gross distension. MS: No obvious swelling or deformities. Able to transition from sit to stand unassisted. Ambulates with bilaterally normal heel strike and toe off Neurological: Oriented to person, place, time and situation. Thought process intact. Psychiatric: Appropriate mood and affect. Good judgment and insight. Results Reviewed Results Reviewed: MRI LUMBAR SPINE WITHOUT CONTRAST EXAM DATE 05/07/2019 The marrow signal is within normal limits. Moderate disc space narrowing at L3- L4, severe loss of disc height L4-5 with endplate spurring mild endplate edema laterally on the right at L4-5. Mild rightward curvature of lumbar spine. No compression fractures. Trace anterior subluxation at L4-5. The paraspinal soft tissues appear normal. Bony pelvis is normal. Conus medullaris: Normal terminating at the level of L1. No level a spinal cord abnormalities. The ca uda equina nerve roots are normal. Spinal levels: L1-L2: No disc pathology. No central canal stenosis or foraminal narrowing. L2-L3: Very mild disc bulge presents without central canal stenosis or foraminal encroachment. L3-L4: Moderate loss of disc height with large left foraminal disc extrusion! Severely compressing the exiting left L3 nerve root. Underlying mild disc bulge and mild facet arthropathy. No central canal stenosis. L4-5: Significant loss of disc height with broad-based disc bulge and right foraminal extraforaminal disc protrusion mildly distorting the exiting right L4 nerve root. Moderate facet arthropathy without central canal stenosis. L5-S1: Mild facet arthrosis no disc pathology: No central canal stenosis, or foraminal narrowing. Assessment & Plan Assessment & Plan (1) Disc degeneration, lumbar: Code(s): M51.36 - Other intervertebral disc degeneration, lumbar region (2) Spondylosis of lumbar region without myelopathy or radiculopathy: Code(s): M47.816 - Spondylosis without myelopathy or radiculopathy, lumbar region (3) Sacroiliitis: Code(s): M46.1 - Sacroiliitis, not elsewhere classified Plan [place]pat was reviewed and without concerns. No obvious signs of diversion, abuse or misuse of the opioid medications. Will send in prescription for Oxycodone 5mg po TID prn with an advanced date of 04/04/2023. Patient to follow-up in the office in 1 month, sooner if needed. All questions and concerns have been answered and patient agrees with the plan. Medications: Refilled oxycodone Partial Fill upon patient request. 5 mg PO TID 30 days PRN 90 tabs 0RF pain M46.1 - Sacroiliitis, not elsewhere classified, M47.816 - Spondylosis without myelopathy or radiculopathy, lumbar region, M51.36 - Other intervertebral disc degeneration, lumbar region Coding Level of Care Code Est Pt Level 4 (95153) Diagnoses Disc degeneration, lumbar M51.36 Spondylosis of lumbar region without myelopathy or radiculopathy M47.816 Sacroiliitis M46.1
[2023-03-12 14:23] VITALS: BP 118/73; PULSE 84; RESP 16; O2SAT 97; BMI 22.9
== END 2023-03-12 14:25 | disposition home or self-care (01) ==
PROVIDERS: PCP Internal Medicine; Visit Provider Registered Nurse Emergency
DX: M51.36 Other intervertebral disc degeneration, lumbar region (principal); M47.816 Spondylosis without myelopathy or radiculopathy, lumbar region; M46.1 Sacroiliitis, not elsewhere classified
CPT/HCPCS: 99214

== ENCOUNTER → 2023-03-12 14:07 | Outpatient (BNVA) | payer MEDICAID, SELFPAY | PROVIDERS: PCP Internal Medicine; Visit Provider Registered Nurse Emergency | DX: Z51.81 Encounter for therapeutic drug level monitoring (principal); F11.20 Opioid dependence, uncomplicated; M51.36 Other intervertebral disc degeneration, lumbar region; M47.816 Spondylosis without myelopathy or radiculopathy, lumbar region; M46.1 Sacroiliitis, not elsewhere classified | CPT/HCPCS: 99212 ==

== ENCOUNTER 2023-04-10 14:32 | Outpatient (AMB) | payer MEDICAID, SELFPAY ==
[2023-04-10 14:41] VITALS: BP 131/79; PULSE 99; RESP 16; O2SAT 96; BMI 21.9
--- NOTE | 2023-04-10 14:41 | MHC.OFFVIS ---
Intake Vital Signs 04/10/23 14:41 Height 5 ft Weight 112 lb BMI 21.9 BP 131/79 Blood Pressure Location Lt brachial Position Sitting Respiration 16 Pulse 99 Pulse Source Pulse Oximeter Pulse Oximetry (%) 96 Oxygen Delivery Method Room Air Intake Visit Reasons: Medication Count /Confirmed Allergies Penicillins [PENICILLINS] Allergy (Severe, Verified 04/10/23 14:40) RASH HPI HPI Comments History of Present Illness Details Deysi is a very pleasant 52 year old female who presents to the office for follow up chronic pain and chronic opioid therapy management. Patient is prescribed oxycodone 5mg po tid prn. Patient arrived today with the expectation of having 72 pills, she presented 73 pills which were counted in the presence of two staff members and returned to the patient in the original prescription bottle. This demonstrates responsible attitude toward patient's opioid medications. Pain is reported todays 09/07 and last dose of pain medication was taken at 2pm today. Patient denies any recent changes or exacerbations of chronic pain and states the medication allows her to engage in activities of daily living with minimal interruption. Patient denies side effects including somnolence, constipation, itching, dyspnea, rash, dizziness or weakness. Patient oxygen dependent, 2L/min continuous use for COPD. She denies any recent exacerbations. [facility] Medical History Respiratory failure with hypoxia COPD exacerbation Pre-op examination History of OCD (obsessive compulsive disorder) History of panic attacks Anxiety and depression Radiculopathy, lumbar region HTN (hypertension) Sacroiliitis COPD (chronic obstructive pulmonary disease) Asthma Allergic rhinitis Disc degeneration, lumbar Surgical History History of surgery History of appendectomy Hx of tonsillectomy Status post excision of lipoma History of tubal ligation Hx of excision of mass History of surgery History of laparoscopic cholecystectomy History of esophagogastroduodenoscopy (EGD) History of umbilical hernia repair History of incision and drainage Family History Family/Other Cervical cancer Family/Other Stomach cancer Social History Household Members: Spouse Household Members Other:: grandson Housing: House Do you presently have visiting nurse or other home services: No Alcohol intake: never Patient Tobacco Use Status: Former Tobacco user Quit Date: 2017 Tobacco use type: Cigarette Substance Use Type: Marijuana service: No Current occupational status: unemployed Sexual orientation: Straight/Heterosexual Gender identity: Female Review of Systems Const All systems reviewed & are unremarkable except as noted in HPI and below Physical Exam Vital Signs: Last Vital Signs Pulse 99 04/10/23 14:41 Resp 16 04/10/23 14:41 BP 131/79 04/10/23 14:41 Pulse Ox 96 04/10/23 14:41 Oxygen Delivery Method Room Air 04/10/23 14:41 BMI result Body Mass Index 21.9 General: awake, alert, oriented. Answers questions appropriately. Fully engaged in examination. Skin: warm, dry, intact HEENT: Normocephalic. Hearing intact. Cardiac: External chest normal in appearance. Respiratory: No cough, audible wheezing or stridor. O2 2L/min continuous use via NC. Abdomen: without gross distension. MS: No obvious swelling or deformities. Able to transition from sit to stand unassisted. Ambulates with bilaterally normal heel strike and toe off Neurological: Oriented to person, place, time and situation. Thought process intact. Psychiatric: Appropriate mood and affect. Good judgment and insight. Results Reviewed Results Reviewed: MRI LUMBAR SPINE WITHOUT CONTRAST EXAM DATE 05/07/2019 The marrow signal is within normal limits. Moderate disc space narrowing at L3-L4, severe loss of disc height L4-5 with endplate spurring mild endplate edema laterally on the right at L4-5. Mild rightward curvature of lumbar spine. No compression fractures. Trace anterior subluxation at L4-5. The paraspinal soft tissues appear normal. Bony pelvis is normal. Conus medullaris: Normal terminating at the level of L1. No level a spinal cord abnormalities. The cauda equina nerve roots are normal. Spinal levels: L1-L2: No disc pathology. No central canal stenosis or foraminal narrowing. L2-L3: Very mild disc bulge presents without central canal stenosis or foraminal encroachment. L3-L4: Moderate loss of disc height with large left foraminal disc extrusion! Severely compressing the exiting left L3 nerve root. Underlying mild disc bulge and mild facet arthropathy. No central canal stenosis. L4-5: Significant loss of disc height with broad-based disc bulge and right foraminal extraforaminal disc protrusion mildly distorting the exiting right L4 nerve root. Moderate facet arthropathy without central canal stenosis. L5-S1: Mild facet arthrosis no disc pathology: No central canal stenosis, or foraminal narrowing. Assessment & Plan Assessment & Plan (1) Disc degeneration, lumbar: Code(s): M51.36 - Other intervertebral disc degeneration, lumbar region (2) Spondylosis of lumbar region without myelopathy or radiculopathy: Code(s): M47.816 - Spondylosis without myelopathy or radiculopathy, lumbar region (3) Sacroiliitis: Code(s): M46.1 - Sacroiliitis, not elsewhere classified Plan [place]pat was reviewed and without concerns. No obvious signs of diversion, abuse or misuse of the opioid medications. Will send in prescription for Oxycodone 5mg po TID prn with an advanced date of 05/05/2023. Patient to follow-up in the office in 1 month, sooner if needed. All questions and concerns have been answered and patient agrees with the plan. Medications: Refilled oxycodone Partial Fill upon patient request. 5 mg PO TID PRN 90 tabs 0RF pain 30 days M46.1 - Sacroiliitis, not elsewhere classified, M47.816 - Spondylosis without myelopathy or radiculopathy, lumbar region, M51.36 - Other intervertebral disc degeneration, lumbar region Coding Level of Care Code Est Pt Level 4 (61277) Diagnoses Disc degeneration, lumbar M51.36 Spondylosis of lumbar region without myelopathy or radiculopathy M47.816 Sacroiliitis M46.1
== END 2023-04-10 14:46 | disposition home or self-care (01) ==
PROVIDERS: PCP Internal Medicine; Visit Provider Registered Nurse Emergency
DX: M51.36 Other intervertebral disc degeneration, lumbar region (principal); M47.816 Spondylosis without myelopathy or radiculopathy, lumbar region; M46.1 Sacroiliitis, not elsewhere classified
CPT/HCPCS: 99214

== ENCOUNTER → 2023-04-10 14:32 | Outpatient (BNVA) | payer MEDICAID, SELFPAY | PROVIDERS: PCP Internal Medicine; Visit Provider Registered Nurse Emergency | DX: Z51.81 Encounter for therapeutic drug level monitoring (principal); F11.20 Opioid dependence, uncomplicated; M51.36 Other intervertebral disc degeneration, lumbar region; M46.1 Sacroiliitis, not elsewhere classified; M47.816 Spondylosis without myelopathy or radiculopathy, lumbar region | CPT/HCPCS: 99212 ==

== ENCOUNTER 2023-04-23 14:07 | Outpatient (AMB) | payer MEDICAID, SELFPAY ==
--- NOTE | 2023-04-23 14:08 | MHC.OFFVIS ---
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 No vaginal bleeding, pelvic pressure or pain. Pelvic ultrasound showed the following: Uterus: The uterus is anteverted and retroflexed. The uterus measures 5.3 x 2.8 x 4.4 cm. The double wall endometrial thickness is 0.3 mm. The uterus is smooth in contour and has normal myometrial echogenicity. Within the posterior rightward fundus, an 8 x 7 x 8 mm hypoechoic myometrial fibroid is noted. Within the anterior upper leftward body, a 3 x 4 x 6 mm hypoechoic submucosal fibroid is seen. Adnexa: Both ovaries are visualized. There is normal color flow to the adnexa. There is no ovarian torsion. There is no pelvic ascites or fluid collection. Right ovary measures 2.6 x 1.1 x 0.9 cm, volume 1.4 mL. Left ovary measures 3.1 x 1.0 x 1.6 cm, volume 2.6 mL PFSH Medical History Respiratory failure with hypoxia COPD exacerbation Pre-op examination History of OCD (obsessive compulsive disorder) History of panic attacks Anxiety and depression Radiculopathy, lumbar region HTN (hypertension) Sacroiliitis COPD (chronic obstructive pulmonary disease) Asthma Allergic rhinitis Disc degeneration, lumbar Surgical History History of surgery History of appendectomy Hx of tonsillectomy Status post excision of lipoma History of tubal ligation Hx of excision of mass History of surgery History of laparoscopic cholecystectomy History of esophagogastroduodenoscopy (EGD) History of umbilical hernia repair History of incision and drainage Family History Family/Other Cervical cancer Family/Other Stomach cancer Social History Household Members: Spouse Household Members Other:: grandson Housing: House Do you presently have visiting nurse or other home services: No Alcohol intake: never Patient Tobacco Use Status: Former Tobacco user Quit Date: 2017 Tobacco use type: Cigarette Substance Use Type: Marijuana service: No Current occupational status: unemployed Sexual orientation: Straight/Heterosexual Gender identity: Female Review of Systems Const All systems reviewed & are unremarkable except as noted in HPI and below Reports as per HPI and Reports no additional complaints GI Reports no additional complaints Reports no additional complaints Assessment & Plan Assessment & Plan (1) Uterine myoma: Code(s): D25.9 - Leiomyoma of uterus, unspecified Plan: Discussed with the patient the findings on pelvic ultrasound & the risk of myosarcoma; discussed with the patient the options of treatment including expectant management versus hysterectomy; the pros and cons, risks benefits of each approach were discussed with the patient including the fact that in cases of myosarcoma, surgical treatment can lead to early diagnosis and positively affects the prognosis; after further discussion, the patient decided to proceed with expectant management. Will repeat pelvic ultrasound in 6 month. Instructions given to patient to call in case any of the following occurs: pressure symptoms, abnormal uterine bleeding, pelvic pain; and to schedule a six-month ultrasound and a follow-up appointment for reassessment . All questions answered, the patient verbalized understanding and agreed with the plan . I spent a total of 20 minutes reviewing the chart, talking to the patient via video and documenting in the medical record. Telehealth Telehealth Location of provider rendering services: practice address Location of patient: address on file Patient Identification confirmed using: Name, : Yes Telehealth method: video Patient verbally consented to treatment: Yes Patient verbally consented to billing insurance company: Yes Patient informed of any privacy concerns related to visit: Yes Coding Level of Care Code Tele Est Pt Level 3 (99698) Diagnoses Uterine myoma D25.9
== END 2023-04-23 15:57 | disposition home or self-care (01) ==
LOC: HO.HWS 14:07
PROVIDERS: PCP Internal Medicine; Referring Provider Internal Medicine; Visit Provider Obstetrics & Gynecology
DX: D25.9 Leiomyoma of uterus, unspecified (principal)
CPT/HCPCS: 99213

== ENCOUNTER → 2023-04-23 14:07 | Outpatient (BNVA) | payer MEDICAID, SELFPAY | PROVIDERS: PCP Internal Medicine; Visit Provider Obstetrics & Gynecology ==

== ENCOUNTER 2023-05-12 12:13 | Outpatient (AMB) | payer MEDICAID, SELFPAY ==
--- NOTE | 2023-05-12 12:13 | A.OFFVIS_ITS ---
Intake Vital Signs 05/12/23 12:20 Height 5 ft Weight 112 lb BMI 21.9 BP 127/72 Blood Pressure Location Lt brachial Position Sitting Pulse 85 Pulse Source Pulse Oximeter Pulse Oximetry (%) 96 Oxygen Delivery Method Room Air Intake Visit Reasons: PILL COUNT Intake Note: Deysi comes in today for a pill count to oxycodone, patient should have 69 tablets and presents with 71 tablets which she last took today 05/12/23 at 7am. 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 She is supposed to have #69 pills in her possession and presents with #71 pills. This demonstrates a responsible attitude in regards to her opioid regimen. She reports adequate analgesia on her current regime which allow s her to be less symptomatic and more functional. Patient denies any fever, abdominal or groin pain, constipation, urinary retention, sedation, nausea, vomiting, peripheral edema, pruritus or dizziness. Patient is O2 dependent at 2L/min continuous use for COPD. She denies any recent exacerbations or recent hospitalizations, ER or Urgent Care visits. PRIOR: Deysi is a very pleasant 52 year old female who presents to the office for follow up chronic pain and chronic opioid therapy management. Patient is prescribed oxycodone 5mg po tid prn. Patient arrived today with the expectation of having 72 pills, she presented 73 pills which were counted in the presence of two staff members and returned to the patient in the original prescription bottle. This demonstrates responsible attitude toward patient's opioid medications. Pain is reported todays 09/07 and last dose of pain medication was taken at 2pm today. Patient denies any recent changes or exacerbations of chronic pain and states the medication allows her to engage in activities of daily living with minimal interruption. Patient denies side effects including somnolence, constipation, itching, dyspnea, rash, dizziness or weakness. Patient oxygen dependent, 2L/min continuous use for COPD. She denies any recent exacerbations. [facility] Medical History Respiratory failure with hypoxia COPD exacerbation Pre-op examination History of OCD (obsessive compulsive disorder) History of panic attacks Anxiety and depression Radiculopathy, lumbar region HTN (hypertension) Sacroiliitis COPD (chronic obstructive pulmonary disease) Asthma Allergic rhinitis Disc degeneration, lumbar Surgical History History of surgery History of appendectomy Hx of tonsillectomy Status post excision of lipoma History of tubal ligation Hx of excision of mass History of surgery History of laparoscopic cholecystectomy History of esophagogastroduodenoscopy (EGD) History of umbilical hernia repair History of incision and drainage Family History Family/Other Cervical cancer Family/Other Stomach cancer Social History Household Members: Spouse Household Members Other:: grandson Housing: House Do you presently have visiting nurse or other home services: No Alcohol intake: never Patient Tobacco Use Status: Former Tobacco user Quit Date: 2017 Tobacco use type: Cigarette Substance Use Type: Marijuana service: No Current occupational status: unemployed Sexual orientation: Straight/Heterosexual Gender identity: Female Review of Systems Const All systems reviewed & are unremarkable except as noted in HPI and below Physical Exam General: Appears afebrile. Alert and oriented. Mood and affect appropriate. Follows and participates in conversation appropriately. Respiratory effort is unlabored. No cough. O2 at 2l/min continuos. Able to transition from sit to stand unassisted. Ambulates with bilaterally normal heel strike and toe off. Resp Effort & Inspection: normal respiratory effort, able to speak in complete sentences, no audible wheezes, no cough, no respiratory distress, no stridor and symmetric chest movement Psych Appearance: grossly normal Mental Status: mental status grossly normal Speech and movement: Normal speech and movement present Affect: normal affect Attitude: cooperative Thought process: Normal thought process present Thought content: Normal thought content present, suicidality (none), no hallucinations and Depressive thoughts present Insight: Good insight present (Psych) Judgement: Good judgement present (Psych) Assessment & Plan Assessment & Plan (1) Disc degeneration, lumbar: Code(s): M51.36 - Other intervertebral disc degeneration, lumbar region (2) Spondylosis of lumbar region without myelopathy or radiculopathy: Code(s): M47.816 - Spondylosis without myelopathy or radiculopathy, lumbar region (3) Sacroiliitis: Code(s): M46.1 - Sacroiliitis, not elsewhere classified (4) Current chronic use of systemic steroids: Code(s): 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 Masspat was reviewed and without concerns. No obvious signs of diversion, abuse or misuse of the opioid medications. Will send in prescription for Oxycodone 5mg po TID prn with an advanced date of 06/03/2023. Patient to follow-up in the office in 1 month, sooner if needed. All questions and concerns have been answered and patient agrees with the plan. Medications: Refilled oxycodone Partial Fill upon patient request. 5 mg PO TID 30 days PRN 90 tabs 0RF pain M46.1 - Sacroiliitis, not elsewhere classified, M47.816 - Spondylosis without myelopathy or radiculopathy, lumbar region, M51.36 - Other intervertebral disc degeneration, lumbar region Coding Level of Care Code Est Pt Level 4 (23312) Diagnoses Disc degeneration, lumbar M51.36 Spondylosis of lumbar region without myelopathy or radiculopathy M47.816 Sacroiliitis M46.1 Current chronic use of systemic steroids Z79.52
[2023-05-12 12:20] VITALS: BP 127/72; PULSE 85; O2SAT 96; BMI 21.9
== END 2023-05-12 12:26 | disposition home or self-care (01) ==
PROVIDERS: PCP Internal Medicine; Visit Provider Nurse Practitioner Family
DX: M51.36 Other intervertebral disc degeneration, lumbar region (principal); M47.816 Spondylosis without myelopathy or radiculopathy, lumbar region; M46.1 Sacroiliitis, not elsewhere classified; Z79.52 Long term (current) use of systemic steroids
CPT/HCPCS: 99214

== ENCOUNTER → 2023-05-12 12:13 | Outpatient (BNVA) | payer MEDICAID, SELFPAY | PROVIDERS: PCP Internal Medicine; Visit Provider Nurse Practitioner Family | DX: Z51.81 Encounter for therapeutic drug level monitoring (principal); M51.36 Other intervertebral disc degeneration, lumbar region; M47.816 Spondylosis without myelopathy or radiculopathy, lumbar region; M46.1 Sacroiliitis, not elsewhere classified; Z79.52 Long term (current) use of systemic steroids | CPT/HCPCS: 99212 ==

== ENCOUNTER 2023-06-09 13:09 | Outpatient (AMB) | payer MEDICAID, SELFPAY ==
--- NOTE | 2023-06-09 13:15 | A.OFFVIS_ITS ---
Intake Vital Signs 06/09/23 13:16 Height 5 ft Weight 118 lb BMI 23.0 BP 156/82 H Blood Pressure Location Lt brachial Position Sitting Pulse 95 Pulse Source Pulse Oximeter Pulse Oximetry (%) 99 Oxygen Delivery Method Nasal Cannula Oxygen Flow Rate 4 Intake Visit Reasons: PILL COUNT/ Conf Intake Note: Deysi comes in today for a pill count to oxycodone, patient should have 72 tablets and presents with 74 tablets which she last took today 06/09/23 at 8am. Pain today 09/07. Internal Consultant Required: No Accompanied by: Daughter Allergies Penicillins [PENICILLINS] Allergy (Severe, Verified 06/09/23 13:17) RASH HPI HPI Comments History of Present Illness Details Deysi is a very pleasant 53 years old female who presents today for a pill count. She is supposed to have #72 pills in her possession and presents with #714pills. This demonstrates a responsible attitude in regards to her opioid regimen. She reports mild to moderate analgesia on her current regime which allows her to be less symptomatic and more functional. Patient denies any fever, abdominal or groin pain, constipation, urinary retention, sedation, nausea, vomiting, peripheral edema, pruritus or dizziness. Patient is O2 dependent at 2L/min continuous use for COPD. Patient reports left sided anterior neck swelling and increased neck pain with lateral rotations, bending which is accompanied by headaches for 1 week. Denies any fever, chills, body aches, night sweats, weight loss, bruising, worsening shortness of breath, joint stiffness, arthralgias or myalgias, or rash. Patient denies notifying her PCP or seeking medical evaluation in Urgent Clinic or ER for this. PRIOR: Deysi is a very pleasant 52 year old female who presents to the office for follow up chronic pain and chronic opioid therapy management. Patient is prescribed oxycodone 5mg po tid prn. Patient arrived today with the expectation of having 72 pills, she presented 73 pills which were counted in the presence of two staff members and returned to the patient in the original prescription bottle. This demonstrates responsible attitude toward patient's o pioid medications. Pain is reported todays 09/07 and last dose of pain medication was taken at 2pm today. Patient denies any recent changes or exacerbations of chronic pain and states the medication allows her to engage in activities of daily living with minimal interruption. Patient denies side effects including somnolence, constipation, itching, dyspnea, rash, dizziness or weakness. Patient oxygen dependent, 2L/min continuous use for COPD. She denies any recent exacerbations. [facility] Medical History Respiratory failure with hypoxia COPD exacerbation Pre-op examination History of OCD (obsessive compulsive disorder) History of panic attacks Anxiety and depression Radiculopathy, lumbar region HTN (hypertension) Sacroiliitis COPD (chronic obstructive pulmonary disease) Asthma Allergic rhinitis Disc degeneration, lumbar Surgical History History of surgery History of appendectomy Hx of tonsillectomy Status post excision of lipoma History of tubal ligation Hx of excision of mass History of surgery History of laparoscopic cholecystectomy History of esophagogastroduodenoscopy (EGD) History of umbilical hernia repair History of incision and drainage Family History Family/Other Cervical cancer Family/Other Stomach cancer Social History Household Members: Spouse Household Members Other:: grandson Housing: House Do you presently have visiting nurse or other home services: No Alcohol intake: never Patient Tobacco Use Status: Former Tobacco user Quit Date: 2017 Tobacco use type: Cigarette Substance Use Type: Marijuana service: No Current occupational status: unemployed Sexual orientation: Straight/Heterosexual Gender identity: Female Review of Systems Const All systems reviewed & are unremarkable except as noted in HPI and below Physical Exam Vital Signs: Last Vital Signs Pulse 95 06/09/23 13:16 BP 156/82 H 06/09/23 13:16 Pulse Ox 99 06/09/23 13:16 Oxygen Delivery Method Nasal Cannula 06/09/23 13:16 Oxygen Flow Rate 4 06/09/23 13:16 BMI result Body Mass Index 23.0 General: Appears afebrile. Alert and oriented. Mood and affect appropriate. Follows and participates in conversation appropriately. Respiratory effort is unlabored. No cough. O2 at 2l/min continuos. Able to transition from sit to stand unassisted. Ambulates with bilaterally normal heel strike and toe off. Neck Neck: Yes no meningeal signs, Yes supple, Yes anterior neck swelling (left), No bilateral parotid enlargement, Yes lymphadenopathy (left), No tracheal deviation, Yes no JVD and No prominent dorsocervical fat pad Resp Effort & Inspection: normal respiratory effort, able to speak in complete sentences, no audible wheezes, no cough, no respiratory distress, no stridor and symmetric chest movement Back/Spine/Pelvis Cervical Spine: cervical muscular tenderness, pain with cervical ROM (left lateral rotation and bending), cervical spasm (bilateral, left>right), No Cervical spine tenderness and No step off deformity Thoracic/Lumbar Spine: thoracic and lumbar spine normal to inspection, thoraco- lumbar ROM limited, No thoracic spinal tenderness and No lumbar spinal tenderness Neuro General: no meningeal signs Psych Appearance: grossly normal and well kempt Mental Status: mental status grossly normal Speech and movement: Normal speech and movement present and Clear speech present Affect: normal affect Attitude: cooperative Thought process: Normal thought process present Thought content: Normal thought content present, suicidality (none), no hallucinations and Depressive thoughts present Insight: Good insight present (Psych) Judgement: Good judgement present (Psych) Results Reviewed Results Reviewed: MRI LUMBAR SPINE WITHOUT CONTRAST EXAM DATE 05/07/2019 The marrow signal is within normal limits. Moderate disc space narrowing at L3- L4, severe loss of disc height L4-5 with endplate spurring mild endplate edema laterally on the right at L4-5. Mild rightward curvature of lumbar spine. No compression fractures. Trace anterior subluxation at L4-5. The paraspinal soft tissues appear normal. Bony pelvis is normal. Conus medullaris: Normal terminating at the level of L1. No level a spinal cord abnormalities. The cauda equina nerve roots are normal. Spinal levels: L1-L2: No disc pathology. No central canal stenosis or foraminal narrowing. L2-L3: Very mild disc bulge presents without central canal stenosis or foraminal encroachment. L3-L4: Moderate loss of disc height with large left foraminal disc extrusion! Severely compressing the exiting left L3 nerve root. Underlying mild disc bulge and mild facet arthropathy. No central canal stenosis. L4-5: Significant loss of disc height with broad-based disc bulge and right foraminal extraforaminal disc protrusion mildly distorting the exiting right L4 nerve root. Moderate facet arthropathy without central canal stenosis. L5-S1: Mild facet arthrosis no disc pathology: No central canal stenosis, or foraminal narrowing. 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 Masspat was reviewed and without concerns. No obvious signs of diversion, abuse or misuse of the opioid medications. Prescription sent for Oxycodone 5mg po TID prn with an advanced date of 07/04/2023. For left anterior neck swelling and increased pain with ROM, will obtain xray and soft tissue neck CT scan. Patient encouraged to follow up with her PCP or seek medical evaluation in ER if symptoms worsens. Patient to follow-up in the office in 1 month, sooner if needed. All questions and concerns have been answered and patient agrees with the plan. Orders: Orders XR soft tissue neck Today M54.2 - Cervicalgia, R59.0 - Localized enlarged lymph nodes CT soft tissue neck wo IV con Today M54.2 - Cervicalgia, R59.0 - Localized enlarged lymph nodes Medications: Refilled oxycodone Partial Fill upon patient request. 5 mg PO TID PRN 90 tabs 0RF pain 30 days M46.1 - Sacroiliitis, not elsewhere classified, M47.816 - Spondylosis without myelopathy or radiculopathy, lumbar region, M51.36 - Other intervertebral disc degeneration, lumbar region Coding Level of Care Code Est Pt Level 4 (94497) Diagnoses Cervicalgia M54.2 Cervical lymphadenopathy R59.0 Disc degeneration, lumbar M51.36 Spondylosis of lumbar region without myelopathy or radiculopathy M47.816 Sacroiliitis M46.1 Current chronic use of systemic steroids Z79.52
[2023-06-09 13:16] VITALS: BP 156/82; PULSE 95; O2SAT 99; BMI 23.0
== END 2023-06-09 13:31 | disposition home or self-care (01) ==
PROVIDERS: PCP Internal Medicine; Visit Provider Nurse Practitioner Family
DX: M54.2 Cervicalgia (principal); R59.0 Localized enlarged lymph nodes; M51.36 Other intervertebral disc degeneration, lumbar region; M47.816 Spondylosis without myelopathy or radiculopathy, lumbar region; M46.1 Sacroiliitis, not elsewhere classified; Z79.52 Long term (current) use of systemic steroids
CPT/HCPCS: 99214

== ENCOUNTER 2023-06-09 13:09 | Outpatient (REF) | payer MEDICAID, SELFPAY ==
--- NOTE | ~2023-06-09 | XR_ITS ---
EXAMINATION: XR SOFT TISSUE NECK CLINICAL INDICATION: Cervicalgia COMPARISON: None available. TECHNIQUE: 2 views of the soft tissue neck were obtained. FINDINGS: Limited evaluation of the lower cervical spine secondary to patient positioning. No acute visible fracture or dislocation. Multilevel degenerative changes. Vertebral body heights and disc spaces are maintained. Prevertebral soft tissues unremarkable. Posterior elements are intact. Paraspinal soft tissues are unremarkable. Visualized portions of the upper chest are unremarkable. XR/XR soft tissue neck IMPRESSION: 1. Limited evaluation of the lower cervical spine secondary to patient positioning. 2. No acute visible fracture or dislocation. 3. Multilevel degenerative changes.
== END 2023-06-09 13:10 | disposition home or self-care (01) ==
LOC: HO.XRAY 13:09
PROVIDERS: PCP Internal Medicine; Visit Provider Nurse Practitioner Family
DX: M54.2 Cervicalgia (principal); R59.0 Localized enlarged lymph nodes
CPT/HCPCS: 70360; 99212

== ENCOUNTER 2023-06-25 11:55 | Outpatient (REF) | payer MEDICAID, SELFPAY ==
--- NOTE | ~2023-06-25 | CT_ITS ---
EXAMINATION: CT SOFT TISSUE NECK WITH CONTRAST CLINICAL INFORMATION: Localized enlarged lymph nodes. Further evaluate. COMPARISON: None available. TECHNIQUE: Following intravenous administration of 60 mL of Omnipaque 350 intravenous contrast, helical imaging was performed in the axial plane with generation of coronal and sagittal reformatted images. This CT examination was performed using dose optimization techniques as appropriate, variously including the following: *Automated exposure control *Adjustment of mA and/or kV according to patient size (this includes techniques or standardized protocols for targeted exams where dose is matched to indication/reason for exam; i.e. extremities or head) *Use of iterative reconstruction technique DLP: 284 mGy-cm FINDINGS: There is a leftward curvature of the cervical spine with multilevel hypertrophic facet arthropathy. No contour abnormality or pathologic enhancement is seen within the oral cavity, pharyngeal mucosal space, or larynx. The thyroid gland is homogeneous. There are some mild secretions in the dependent portion of the trachea at the thoracic inlet. The submandibular and parotid glands appear normal. No pathologically enlarged cervical lymph nodes are visible. The carotid sheath vasculature opacifies normally. There are mild atherosclerotic wall calcifications of the aortic arch and at the origins of the great vessels. The imaged mediastinum is otherwise unremarkable. Significant emphysematous changes are visible in the lungs with mild scattered areas of subsegmental atelectasis. No acute osseous abnormality is seen. No suspicious soft tissue enhancement is visible. The imaged axillae are unremarkable. No extra-mucosal soft tissue lesion is seen. Scattered dental caries are visible. The paranasal sinuses, middle ear cavities, and mastoid air cells are well aerated. The orbits are normal. The imaged portions of the brain demonstrate no acute abnormality. CT/CT soft tissue neck w IV con IMPRESSION: No cervical adenopathy or extra-mucosal soft tissue mass. Rightward curvature of the cervical spine with multilevel hypertrophic facet arthropathy. Mild amount of secretions in the tracheal airway which potentially would put the patient at risk for aspiration. Significant emphysematous changes in the lungs.
[2023-06-25] MEDS: iohexoL 350 MG/ML 100 ML INFUS..BTL 60 ML IV (12:33)
[2023-06-26 08:57] LABS: Creatinine POC 0.6 mg/dL (0.5-1.4); GFR POC > 60
== END 2023-06-25 11:56 | disposition home or self-care (01) ==
LOC: HO.CT 11:55
PROVIDERS: PCP Internal Medicine; Visit Provider Nurse Practitioner Family
DX: R59.0 Localized enlarged lymph nodes (principal); M54.2 Cervicalgia
CPT/HCPCS: 70491; 82565; Q9967

== ENCOUNTER 2023-07-07 13:10 | Outpatient (AMB) | payer MEDICAID, SELFPAY ==
--- NOTE | 2023-07-07 13:11 | A.OFFVIS_ITS ---
Intake Vital Signs 07/07/23 13:31 Height 5 ft Weight 118 lb BMI 23.0 BP 135/89 Blood Pressure Location Lt brachial Position Sitting Pulse 89 Pulse Source Pulse Oximeter Pulse Oximetry (%) 97 Oxygen Delivery Method Room Air Intake Visit Reasons: PILL COUNT/ random UDS Intake Note: Deysi comes in today for a pill count to oxycodone, patient should have 84 tablets and presents with 83 tablets which she last took today 07/07/23 at 12pm. Pain today 10/07 Patient will also have random UDS done today 07/07/23. Leadership Development Manager Required: No Accompanied by: Self / Same As Patient Allergies Penicillins [PENICILLINS] Allergy (Severe, Verified 07/07/23 13:57) RASH HPI HPI Comments History of Present Illness Details Deysi is a very pleasant 53 years old female who presents today for a pill count. She is supposed to have #84 pills in her possession and presents with #83 pills. This demonstrates a responsible attitude in regards to her opioid regimen. She reports mild to moderate analgesia on her current regime which allows her to be less symptomatic and more functional. Patient denies any fever, abdominal or groin pain, constipation, urinary retention, sedation, nausea, vomiting, peripheral edema, pruritus or dizziness. Patient is O2 dependent at 2L/min continuous use for COPD. Cervical spine xray and soft tissue neck CT scan results reviewed with patient today. PRIOR: Deysi is a very pleasant 52 year old female who presents to the office for follow up chronic pain and chronic opioid therapy management. Patient is prescribed oxycodone 5mg po tid prn. Patient arrived today with the expectation of having 72 pills, she presented 73 pills which were counted in the presence of two staff members and returned to the patient in the original prescription bottle. This demonstrates responsible attitude toward patient's opioid medications. Pain is reported todays 09/07 and last dose of pain medication was taken at 2pm today. Patient denies any recent changes or exacerbations of chronic pain and states the medication allows her to engage in activities of daily living with minimal interruption. Patient denies side effects including somnolence, constipation, itching, dyspnea, rash, dizziness or weakness. Patient oxygen dependent, 2L/min continuous use for COPD. She denies any recent exacerbations. FORMERLY [facility] Medical History Respiratory failure with hypoxia COPD exacerbation Pre-op examination History of OCD (obsessive compulsive disorder) History of panic attacks Anxiety and depression Radiculopathy, lumbar region HTN (hypertension) Sacroiliitis COPD (chronic obstructive pulmonary disease) Asthma Allergic rhinitis Disc degeneration, lumbar Surgical History History of surgery History of appendectomy Hx of tonsillectomy Status post excision of lipoma History of tubal ligation Hx of excision of mass History of surgery History of laparoscopic cholecystectomy History of esophagogastroduodenoscopy (EGD) History of umbilical hernia repair History of incision and drainage Family History Family/Other Cervical cancer Family/Other Stomach cancer Social History Household Members: Spouse Household Members Other:: grandson Housing: House Do you presently have visiting nurse or other home services: No Alcohol intake: never Patient Tobacco Use Status: Former Tobacco user Quit Date: 2017 Tobacco use type: Cigarette Substance Use Type: Marijuana service: No Current occupational status: unemployed Sexual orientation: Straight/Heterosexual Gender identity: Female Review of Systems Const All systems reviewed & are unremarkable except as noted in HPI and below Physical Exam Vital Signs: Last Vital Signs Pulse 89 07/07/23 13:31 BP 135/89 07/07/23 13:31 Pulse Ox 97 07/07/23 13:31 Oxygen Delivery Method Room Air 07/07/23 13:31 BMI result Body Mass Index 23.0 General: Appears afebrile. Alert and oriented. Mood and affect appropriate. Follows and participates in conversation appropriately. Respiratory effort is unlabored. No cough. O2 at 2l/min continuos. Able to transition from sit to stand unassisted. Ambulates with bilaterally normal heel strike and toe off. Neck Neck: Yes no meningeal signs, Yes supple, Yes anterior neck swelling (left), No bilateral parotid enlargement, Yes lymphadenopathy (left), No tracheal deviation, Yes no JVD and No prominent dorsocervical fat pad Resp Effort & Inspection: normal respiratory effort, able to speak in complete sentences, no audible wheezes, no cough, no respiratory distress and no stridor Neuro General: no meningeal signs Psych Appearance: grossly normal and well kempt Mental Status: mental status grossly normal Speech and movement: Normal speech and movement present and Clear speech present Affect: normal affect Attitude: cooperative Thought process: Normal thought process present Thought content: Normal thought content present, suicidality (none), no hallucinations and Depressive thoughts present Insight: Good insight present (Psych) Judgement: Good judgement present (Psych) Results Reviewed Results Reviewed: MRI LUMBAR SPINE WITHOUT CONTRAST EXAM DATE 05/07/2019 The marrow signal is within normal limits. Moderate disc space narrowing at L3- L4, severe loss of disc height L4-5 with endplate spurring mild endplate edema laterally on the right at L4-5. Mild rightward curvature of lumbar spine. No compression fractures. Trace anterior subluxation at L4-5. The paraspinal soft tissues appear normal. Bony pelvis is normal. Conus medullaris: Normal terminating at the level of L1. No level a spinal cord abnormalities. The cauda equina nerve roots are normal. Spinal levels: L1-L2: No disc pathology. No central canal stenosis or foraminal narrowing. L2-L3: Very mild disc bulge presents without central canal stenosis or foraminal encroachment. L3-L4: Moderate loss of disc height with large left foraminal disc extrusion! Severely compressing the exiting left L3 nerve root. Underlying mild disc bulge and mild facet arthropathy. No central canal stenosis. L4-5: Significant loss of disc height with broad-based disc bulge and right foraminal extraforaminal disc protrusion mildly distorting the exiting right L4 nerve root. Moderate facet arthropathy without central canal stenosis. L5-S1: Mild facet arthrosis no disc pathology: No central canal stenosis, or foraminal narrowing. XR SOFT TISSUE NECK 06/09/23 FINDINGS: Limited evaluation of the lower cervical spine secondary to patient positioning. No acute visible fracture or dislocation. Multilevel degenerative changes. Vertebral body heights and disc spaces are maintained. Prevertebral soft tissues unremarkable. Posterior elements are intact. Paraspinal soft tissues are unremarkable. Visualized portions of the upper chest are unremarkable. IMPRESSION: 1. Limited evaluation of the lower cervical spine secondary to patient positioning. 2. No acute visible fracture or dislocation. 3. Multilevel degenerative changes. CT/CT soft tissue neck w IV con 06/25/23 IMPRESSION: No cervical adenopathy or extra-mucosal soft tissue mass. Rightward curvature of the cervical spine with multilevel hypertrophic facet arthropathy. Mild amount of secretions in the tracheal airway which potentially would put the patient at risk for aspiration. Significant emphysematous changes in the lungs. Assessment & Plan Assessment & Plan (1) Cervicalgia: Code(s): M54.2 - Cervicalgia (2) Cervical lymphadenopathy: Code(s): R59.0 - Localized enlarged lymph nodes (3) Disc degeneration, lumbar: Code(s): M51.36 - Other intervertebral disc degeneration, lumbar region (4) Spondylosis of lumbar region without myelopathy or radiculopathy: Code(s): M47.816 - Spondylosis without myelopathy or radiculopathy, lumbar region (5) Sacroiliitis: Code(s): M46.1 - Sacroiliitis, not elsewhere classified (6) Current chronic use of systemic steroids: Code(s): Z79.52 - manager terminal (current) use of systemic steroids Plan Patient has shown accountability for her medication regimen and the pill count was accurate. Masspat was reviewed and without concerns. No obvious signs of diversion, abuse or misuse of the opioid medications. Prescription sent for Oxycodone 5mg po TID prn with an advanced date of 08/03/2023. Cervical spine xray and soft tissue neck CT scan results reviewed with patient today. Reviewed at risk for aspiration precautions per recent CT scan results. Briefly discussed interventional treatments for axial cervical spine pain. Patient will notify our office if she is intersted to proceed with diagnostic cervical medial branch blocks. She also has pending follow up with Pulmonology provider next week. All questions and concerns have been answered and patient agrees with the plan. Patient to follow-up in the office in 1 month for pill count/UDS review, sooner if needed. Medications: Refilled oxycodone Partial Fill upon patient request. 5 mg PO TID 30 days PRN 90 tabs 0RF pain M46.1 - Sacroiliitis, not elsewhere classified, M47.816 - Spondylosis without m yelopathy or radiculopathy, lumbar region, M51.36 - Other intervertebral disc degeneration, lumbar region Coding Level of Care Code Est Pt Level 4 (71109) Diagnoses Cervicalgia M54.2 Cervical lymphadenopathy R59.0 Disc degeneration, lumbar M51.36 Spondylosis of lumbar region without myelopathy or radiculopathy M47.816 Sacroiliitis M46.1 Current chronic use of systemic steroids Z79.52
[2023-07-07 13:31] VITALS: BP 135/89; PULSE 89; O2SAT 97; BMI 23.0
== END 2023-07-07 13:25 | disposition home or self-care (01) ==
PROVIDERS: PCP Internal Medicine; Visit Provider Nurse Practitioner Family
DX: M54.2 Cervicalgia (principal); R59.0 Localized enlarged lymph nodes; M51.36 Other intervertebral disc degeneration, lumbar region; M47.816 Spondylosis without myelopathy or radiculopathy, lumbar region; M46.1 Sacroiliitis, not elsewhere classified; Z79.52 Long term (current) use of systemic steroids
CPT/HCPCS: 99214

== ENCOUNTER → 2023-07-07 13:10 | Outpatient (BNVA) | payer MEDICAID, SELFPAY | PROVIDERS: PCP Internal Medicine; Visit Provider Nurse Practitioner Family | DX: M47.816 Spondylosis without myelopathy or radiculopathy, lumbar region (principal); M46.1 Sacroiliitis, not elsewhere classified; M51.36 Other intervertebral disc degeneration, lumbar region; M54.2 Cervicalgia; R59.0 Localized enlarged lymph nodes; Z79.52 Long term (current) use of systemic steroids; Z79.891 Long term (current) use of opiate analgesic; Z99.81 Dependence on supplemental oxygen | CPT/HCPCS: 99212 ==

== ENCOUNTER 2023-07-15 15:32 | Outpatient (AMB) | payer MEDICAID, SELFPAY ==
--- NOTE | 2023-07-15 15:40 | A.OFFVIS_ITS ---
Intake Vital Signs 07/15/23 15:42 Height 5 ft Weight 119 lb 0.794 oz BMI 23.2 BP 109/62 Blood Pressure Location Rt brachial Position Sitting Pulse 85 Pulse Source Doppler Pulse Oximetry (%) 90 L Oxygen Delivery Method Nasal Cannula Oxygen Flow Rate 2 Intake Visit Reasons: copd Allergies Penicillins [PENICILLINS] Allergy (Severe, Verified 07/15/23 16:52) RASH Medication List - Last Reconciled 07/15/23 by Erickson Mathews MD acetaminophen (Tylenol Extra Strength) 500 mg PO Q6H PRN albuterol sulfate 90 mcg/actuation (Ventolin HFA) 2 puffs inhalation QID PRN albuterol sulfate 2.5 mg (3 mL) inhalation Q4-6H PRN benzonatate 200 mg PO TID PRN budesonide-formoterol 160-4.5 mcg/actuation (Symbicort) 2 puffs inhalation BID cefuroxime axetil 500 mg PO BID 10 days cholecalciferol (vitamin D3) 50 mcg PO QAM esomeprazole magnesium 40 mg PO QAM ibuprofen 400 mg PO Q6H PRN ipratropium-albuterol 0.5 mg-3 mg(2.5 mg base)/3 mL 3 mL inhalation Q6-8H PRN 30 days lidocaine 5% 1 appl topical BID PRN lisinopril 1 tab PO DAILY mirtazapine 45 mg PO BEDTIME montelukast 10 mg PO BEDTIME ondansetron HCl 4 mg PO BID-TID PRN 14 days oxycodone 5 mg PO TID PRN 30 days prednisone See Taper mg PO DAILY prednisone 5 mg PO QAM pregabalin 150 mg PO BID quetiapine (Seroquel) 100 mg PO BEDTIME quetiapine 25 mg PO DAILY PRN tiotropium bromide 2.5 mcg/actuation (Spiriva Respimat) 2 puffs inhalation QAM Do you need a note to return to daycare/school/sports/work: No HPI copd HPI Details THIS 53 YEARS OLD FEMALE, WITH ADVANCED CHRONIC OBSTRUCTIVE PULMONARY DISEASE AND ALSO RESPIRATORY FAILURE, COMES AFTER ABOUT 8 MONTHS FOR FOLLOW-UP. SHE MISSED A FEW APPOINTMENTS BEFORE. CLAIMS THAT IN THE LAST 8 MONTHS SHE HAS REMAINED FAIRLY STABLE WITHOUT ANY ACUTE INFECTION OR NEED FOR HOSPITALIZATION. SHE. DOES NOT SMOKE SHE USES O2 2 L/MINUTE AT NIGHT, AND P.R.N. DURING THE DAYTIME WHEN AT HOME. BUT SHE ALWAYS USES PORTABLE CYLINDER WHEN SHE GOES OUTDOORS. SHE IS COMPLAINING OF THE PORTABLE CYLINDER BEING TOO LARGE AND HEAVY TO CARRY ALONG. REQUESTING TO HAVE A SMALLER OR MEDICAL RECORDS CUSTODIAN PORTABLE SLIT. COMPLAINS OF RED SPOTS ON THE HANDS, ( PURPURIC SPOTS) PROBABLY FROM THE USE OF PREDNISONE. AND SHE HAS BEEN ON PREDNISONE 5 MG A DAY CONTINUOUSLY. FORMERLY [facility] Medical History Respiratory failure with hypoxia COPD exacerbation Pre-op examination History of OCD (obsessive compulsive disorder) History of panic attacks Anxiety and depression Radiculopathy, lumbar region HTN (hypertension) Sacroiliitis COPD (chronic obstructive pulmonary disease) Asthma Allergic rhinitis Disc degeneration, lumbar Surgical History History of surgery History of appendectomy Hx of tonsillectomy Status post excision of lipoma History of tubal ligation Hx of excision of mass History of surgery History of laparoscopic cholecystectomy History of esophagogastroduodenoscopy (EGD) History of umbilical hernia repair History of incision and drainage Family History Family/Other Cervical cancer Family/Other Stomach cancer Social History Household Members: Spouse Household Members Other:: grandson Housing: House Do you presently have visiting nurse or other home services: No Alcohol intake: never Patient Tobacco Use Status: Former Tobacco user Quit Date: 2017 Tobacco use type: Cigarette Substance Use Type: Marijuana service: No Current occupational status: unemployed Sexual orientation: Straight/Heterosexual Gender identity: Female Review of Systems Const All systems reviewed & are unremarkable except as noted in HPI and below Eyes Reports no additional complaints ENT Reports nasal congestion and Reports nasal discharge (OFF AND ON) Card Denies chest pain, Denies irregular heart rhythm and Denies leg edema Resp Reports as per HPI GI Reports no additional complaints Reports no additional complaints Musc Reports back pain and Reports arthralgias Skin/Breast Reports system reviewed and no additional complaints, except as documented Neuro Reports no additional complaints Psych Reports depression (Mild) Endo Reports no additional complaints Physical Exam Const General: comfortable, no acute distress, alert and awake Orientation/consciousness: patient oriented x3 HEENT Head: Yes normal to inspection General nose exam: No nasal polyps present, No nasal discharge present and Other nasal findings present (Mild bilateral nasal congestion) Face and sinus: Yes sinuses nontender Mouth: oropharynx normal Throat: Yes posterior oropharynx normal Eyes General: appearance normal, both eyes and all related structures Neck Neck: Yes normal visual inspection, Yes no lymphadenopathy, Yes trachea midline and Yes no JVD Thyroid: Thyroid normal Chest Chest palpation & inspection: normal inspection of the chest, normal palpation of entire chest wall and no tenderness Resp Other: Percussion note is HYPER RESONANT , she does have good breath sounds on both sides but quite distant with prolonged expiratory phase. No audible wheezes or rhonchi heard. Cardio Palpation: normal PMI Rate: regular rate Rhythm: regular rhythm Heart sounds: no gallops and no murmurs Peripheral pulses: Peripheral pulses 2+ throughout GI Palpation (GI): Soft to palpation, nontender, No hepatosplenomegaly present and no masses Auscultation: normal bowel sounds Back/Spine/Pelvis Thoracic/Lumbar Spine: thoracic and lumbar spine normal to inspection and thoraco-lumbar ROM limited Skin General skin exam: no rashes or lesions noted Neuro General: patient oriented x3 and no focal motor deficits Cranial nerves: Yes CN's II-XII intact bilaterally Extrem General: Yes normal to inspection, Yes no clubbing, cyanosis or edema and Yes no calf tenderness Psych Appearance: grossly normal and well kempt Speech and movement: Normal speech and movement present Assessment & Plan Assessment & Plan (1) Asthma: Comment: SHE HAS LIF[place]ONG HISTORY OF BRONCHIAL ASTHMA, WHICH HAS NOW PHASED INTO CHRONIC OBSTRUCTIVE PULMONARY DISEASE. HER ASTHMA IS SECONDARY TO ENVIRONMENTAL ALLERGIES. SINCE SHE MOVED INTO AN APARTMENT WITH NO CARPETS AND HAS LESS DUST EXPOSURE, SHE REPORTS IMPROVEMENT IN SYMPTOMS. Code(s): J45.909 - Unspecified asthma, uncomplicated Plan: see under copd (2) COPD (chronic obstructive pulmonary disease): Comment: COPD IS DUE TO HER CHRONIC LIFELONG BRONCHIAL ASTHMA AND PAST HISTORY OF SMOKING. WANTS TO GET DUONEB INHALATION SOLUTION, EMERGENCY USE. SHE CLAIMS THAT SHE HAD USED IT A FEW TIMES, BORROWED FROM HER DAUGHTER. AND SHE NOTICED THAT IT HELPED HER MUCH BETTER THAN PLAIN ALBUTEROL. Code(s): J44.9 - Chronic obstructive pulmonary disease, unspecified Qualifiers: COPD type: COPD with acute exacerbation Qualified Code(s): J44.1 - Chronic obstructive pulmonary disease with (acute) exacerbation Plan: [place] SYMBICORT 80-4.52 PUFFS B.I.D. SPIRIVA HANDIHALER 1 INHALATION DAILY PROAIR 2 PUFFS Q.4 HOURS P.R.N. PREDNISONE 5 MG reduce to one tab on alternate days . DUO NEB UD , Q 4-6 HRS PRN FOR ACUTE SYMPTOMS (3) Allergic rhinitis: Comment: SHE HAS CHRONIC, YEAR ROUND ALLERGIC RHINITIS. CURRENTLY IT IS UNDER CONTROL WITH HER MEDICATION REGIMEN. Code(s): J30.9 - Allergic rhinitis, unspecified Plan: MONTELUKAST 10 MG DAILY (4) Respiratory failure with hypoxia: Comment: She was hypoxemic with minimal exertion. Has been started on O2 therapy. Feels stronger and better. Code(s): J96.91 - Respiratory failure, unspecified with hypoxia Plan: [place]: O2 2 L/minute 24 hours a day. She has a large portable cylinder which is difficult to carry along. Order is sent for small portable cylinder( D size ) Medications: New ipratropium-albuterol 0.5 mg-3 mg(2.5 mg base)/3 mL 3 mL inhalation Q6-8H 30 days PRN 180 mL 3RF wheezing/SOB Coding Level of Care Code Est Pt Level 4 (68155) Diagnoses Asthma J45.909 COPD (chronic obstructive pulmonary disease) J44.1 COPD type: COPD with acute exacerbation Allergic rhinitis J30.9 Respiratory failure with hypoxia J96.91
[2023-07-15 15:42] VITALS: BP 109/62; PULSE 85; O2SAT 90; BMI 23.2
== END 2023-07-15 15:58 | disposition home or self-care (01) ==
PROVIDERS: PCP Internal Medicine; Referring Provider Internal Medicine; Visit Provider Internal Medicine
DX: J45.909 Unspecified asthma, uncomplicated (principal); J44.1 Chronic obstructive pulmonary disease with (acute) exacerbation; J30.9 Allergic rhinitis, unspecified; J96.91 Respiratory failure, unspecified with hypoxia
CPT/HCPCS: 99214

== ENCOUNTER → 2023-07-15 15:32 | Outpatient (BNVA) | payer MEDICAID, SELFPAY | PROVIDERS: PCP Internal Medicine; Visit Provider Internal Medicine | DX: J45.909 Unspecified asthma, uncomplicated (principal); J44.1 Chronic obstructive pulmonary disease with (acute) exacerbation; J96.91 Respiratory failure, unspecified with hypoxia | CPT/HCPCS: 99212 ==

== ENCOUNTER 2023-08-11 13:05 | Outpatient (AMB) | payer MEDICAID, SELFPAY ==
--- NOTE | 2023-08-11 13:07 | MHC.OFFVIS ---
Vital Signs 08/11/23 13:18 Height 5 ft Weight 118 lb BMI 23.0 BP 130/78 Blood Pressure Location Lt brachial Position Sitting Pulse 92 Pulse Source Pulse Oximeter Pulse Oximetry (%) 94 Oxygen Delivery Method Nasal Cannula Oxygen Flow Rate 2 Intake Visit Reasons: PILL COUNT Intake Note: Deysi comes in today for a pill count to oxycodone, patient should have 69 tablets and presents with 67 tablets which she last took today 08/11/23 at 8am. 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 She is supposed to have #69 pills in her possession and presents with #67 pills. This demonstrates a responsible attitude in regards to her opioid regimen. Patient reports adequate analgesia on her current regime which allows her to be less symptomatic and more functional. Patient denies any fever, abdominal or groin pain, constipation, urinary retention, sedation, nausea, vomiting, peripheral edema, pruritus or dizziness. Patient is O2 dependent at 2L/min continuous use for COPD. [facility] Medical History Respiratory failure with hypoxia COPD exacerbation Pre-op examination History of OCD (obsessive compulsive disorder) History of panic attacks Anxiety and depression Radiculopathy, lumbar region HTN (hypertension) Sacroiliitis COPD (chronic obstructive pulmonary disease) Asthma Allergic rhinitis Disc degeneration, lumbar Surgical History History of surgery History of appendectomy Hx of tonsillectomy Status post excision of lipoma History of tubal ligation Hx of excision of mass History of surgery History of laparoscopic cholecystectomy History of esophagogastroduodenoscopy (EGD) History of umbilical hernia repair History of incision and drainage Family History Family/Other Cervical cancer Family/Other Stomach cancer Social History Household Members: Spouse Household Members Other:: grandson Housing: House Do you presently have visiting nurse or other home services: No Alcohol intake: never Patient Tobacco Use Status: Former Tobacco user Quit Date: 2017 Tobacco use type: Cigarette Substance Use Type: Marijuana service: No Current occupational status: unemployed Sexual orientation: Straight/Heterosexual Gender identity: Female Review of Systems Const All systems reviewed & are unremarkable except as noted in HPI and below Physical Exam General: Appears afebrile. Alert and oriented. Mood and affect appropriate. Follows and participates in conversation appropriately. Respiratory effort is unlabored. No cough. O2 at 2l/min continuos. Able to transition from sit to stand unassisted. Ambulates with bilaterally normal heel strike and toe off. Neck Neck: Yes no lymphadenopathy, Yes supple, Yes anterior neck swelling (left), No bilateral parotid enlargement, Yes no JVD and No prominent dorsocervical fat pad Resp Effort & Inspection: normal respiratory effort, able to speak in complete sentences, no cough, no respiratory distress, no stridor and symmetric chest movement Back/Spine/Pelvis Cervical Spine: cervical muscular tenderness, pain with cervical ROM and No Cervical spine tenderness Thoracic/Lumbar Spine: pain with thoraco-lumbar ROM, thoraco-lumbar ROM limited, No thoracic spinal tenderness and lumbar spinal tenderness at L4 and at L5 Sacroiliac joints: bilaterally tender to palpation Psych Appearance: grossly normal Mental Status: mental status grossly normal Speech and movement: Normal speech and movement present and Clear speech present Affect: normal affect Attitude: cooperative Thought process: Normal thought process present Thought content: Normal thought content present, suicidality (none), no hallucinations and Depressive thoughts present Insight: Good insight present (Psych) Judgement: Good judgement present (Psych) Results Reviewed Results Reviewed: MRI LUMBAR SPINE WITHOUT CONTRAST EXAM DATE 05/07/2019 The marrow signal is within normal limits. Moderate disc space narrowing at L3-L4, severe loss of disc height L4-5 with endplate spurring mild endplate edema laterally on the right at L4-5. Mild rightward curvature of lumbar spine. No compression fractures. Trace anterior subluxation at L4-5. The paraspinal soft tissues appear normal. Bony pelvis is normal. Conus medullaris: Normal terminating at the level of L1. No level a spinal cord abnormalities. The cauda equina nerve roots are normal. Spinal levels: L1-L2: No disc pathology. No central canal stenosis or foraminal narrowing. L2-L3: Very mild disc bulge presents without central canal stenosis or foraminal encroachment. L3-L4: Moderate loss of disc height with large left foraminal disc extrusion! Severely compressing the exiting left L3 nerve root. Underlying mild disc bulge and mild facet arthropathy. No central canal stenosis. L4-5: Significant loss of disc height with broad-based disc bulge and right foraminal extraforaminal disc protrusion mildly distorting the exiting right L4 nerve root. Moderate facet arthropathy without central canal stenosis. L5-S1: Mild facet arthrosis no disc pathology: No central canal stenosis, or foraminal narrowing. XR SOFT TISSUE NECK 06/09/23 FINDINGS: Limited evaluation of the lower cervical spine secondary to patient positioning. No acute visible fracture or dislocation. Multilevel degenerative changes. Vertebral body heights and disc spaces are maintained. Prevertebral soft tissues unremarkable. Posterior elements are intact. Paraspinal soft tissues are unremarkable. Visualized portions of the upper chest are unremarkable. IMPRESSION: 1. Limited evaluation of the lower cervical spine secondary to patient positioning. 2. No acute visible fracture or dislocation. 3. Multilevel degenerative changes. CT/CT soft tissue neck w IV con 06/25/23 IMPRESSION: No cervical adenopathy or extra-mucosal soft tissue mass. Rightward curvature of the cervical spine with multilevel hypertrophic facet arthropathy. Mild amount of secretions in the tracheal airway which potentially would put the patient at risk for aspiration. Significant emphysematous changes in the lungs. Assessment & Plan Assessment & Plan (1) Cervicalgia: Code(s): M54.2 - Cervicalgia Category: Medical (2) Cervical lymphadenopathy: Code(s): R59.0 - Localized enlarged lymph nodes Category: Medical (3) Disc degeneration, lumbar: Code(s): M51.36 - Other intervertebral disc degeneration, lumbar region Category: Medical (4) Spondylosis of lumbar region without myelopathy or radiculopathy: Code(s): M47.816 - Spondylosis without myelopathy or radiculopathy, lumbar region Category: Medical (5) Sacroiliitis: Code(s): M46.1 - Sacroiliitis, not elsewhere classified Category: Medical (6) Current chronic use of systemic steroids: Code(s): Z79.52 - [facility] (current) use of systemic steroids Category: Medical Plan Patient has shown accountability for her medication regimen and the pill count was accurate. Masspat was reviewed and without concerns. No obvious signs of diversion, abuse or misuse of the opioid medications. Most recent UDS was concordant. Patient reports adequate analgesia on current medication regime. Prescription sent for Oxycodone 5mg po TID prn with an advanced date of 09/02/2023. Patient to follow-up in the office in 4-5 weeks for pill count, sooner if needed. Medications: Refilled oxycodone Partial Fill upon patient request. 5 mg PO TID 30 days PRN 90 tabs 0RF pain M46.1 - Sacroiliitis, not elsewhere classified, M47.816 - Spondylosis without myelopathy or radiculopathy, lumbar region, M51.36 - Other intervertebral disc degeneration, lumbar region Coding Level of Care Code Est Pt Level 4 (79767) Diagnoses Cervicalgia M54.2 Cervical lymphadenopathy R59.0 Disc degeneration, lumbar M51.36 Spondylosis of lumbar region without myelopathy or radiculopathy M47.816 Sacroiliitis M46.1 Current chronic use of systemic steroids Z79.52
[2023-08-11 13:18] VITALS: BP 130/78; PULSE 92; O2SAT 94; BMI 23.0
== END 2023-08-11 13:26 | disposition home or self-care (01) ==
PROVIDERS: PCP Internal Medicine; Visit Provider Nurse Practitioner Family
DX: M54.2 Cervicalgia (principal); R59.0 Localized enlarged lymph nodes; M51.36 Other intervertebral disc degeneration, lumbar region; M47.816 Spondylosis without myelopathy or radiculopathy, lumbar region; M46.1 Sacroiliitis, not elsewhere classified; Z79.52 Long term (current) use of systemic steroids
CPT/HCPCS: 99214

== ENCOUNTER → 2023-08-11 13:05 | Outpatient (BNVA) | payer MEDICAID, SELFPAY | PROVIDERS: PCP Internal Medicine; Visit Provider Nurse Practitioner Family | DX: Z51.81 Encounter for therapeutic drug level monitoring (principal); F11.20 Opioid dependence, uncomplicated; M54.2 Cervicalgia; M51.36 Other intervertebral disc degeneration, lumbar region; M47.816 Spondylosis without myelopathy or radiculopathy, lumbar region; M46.1 Sacroiliitis, not elsewhere classified; R59.0 Localized enlarged lymph nodes; Z79.52 Long term (current) use of systemic steroids | CPT/HCPCS: 99212 ==

== ENCOUNTER 2023-09-08 13:05 | Outpatient (AMB) | payer MEDICAID, SELFPAY ==
--- NOTE | 2023-09-08 13:06 | MHC.OFFVIS ---
Vital Signs 09/08/23 13:14 Height 5 ft 11 in Weight 118 lb BMI 16.5 BP 137/73 Blood Pressure Location Lt brachial Position Sitting Pulse 67 Pulse Source Pulse Oximeter Pulse Oximetry (%) 94 Oxygen Delivery Method Nasal Cannula Oxygen Flow Rate 2 Intake Visit Reasons: PILL COUNT Intake Note: Deysi comes in today for a pill count to oxycodone, patient should have 75 tablets and presents with 76 tablets which she last took today 09/08/23 at 13:30pm. 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 She is supposed to have #75 pills in her possession and presents with #76 pills. This demonstrates a responsible attitude in regards to her opioid regimen. Patient reports mild to moderate analgesia on her current regime. She also takes pregabalin 150 mg BID. Reports recent lower back pain flare-up with radiation into her right buttock and lateral right hip consistent with right sacroiliac joint pain. Pain is rated at 6/10. Patient reports current medication regime allows her to be less symptomatic and more functional. Patient denies any fever, abdominal or groin pain, constipation, urinary retention, sedation, nausea, vomiting, peripheral edema, pruritus or dizziness. Patient is O2 dependent at 2L/min continuous use for COPD. [facility] Medical History Respiratory failure with hypoxia COPD exacerbation Pre-op examination History of OCD (obsessive compulsive disorder) History of panic attacks Anxiety and depression Radiculopathy, lumbar region HTN (hypertension) Sacroiliitis COPD (chronic obstructive pulmonary disease) Asthma Allergic rhinitis Disc degeneration, lumbar Surgical History History of surgery History of appendectomy Hx of tonsillectomy Status post excision of lipoma History of tubal ligation Hx of excision of mass History of surgery History of laparoscopic cholecystectomy History of esophagogastroduodenoscopy (EGD) History of umbilical hernia repair History of incision and drainage Family History Family/Other Cervical cancer Family/Other Stomach cancer Social History Household Members: Spouse Household Members Other:: grandson Housing: House Do you presently have visiting nurse or other home services: No Alcohol intake: never Patient Tobacco Use Status: Former Tobacco user Tobacco use type: Cigarette Substance Use Type: Marijuana service: No Current occupational status: unemployed Sexual orientation: Straight/Heterosexual Gender identity: Female Review of Systems Const All systems reviewed & are unremarkable except as noted in HPI and below Physical Exam General: Appears afebrile. Alert and oriented. Mood and affect appropriate. Follows and participates in conversation appropriately. Respiratory effort is unlabored. No cough. O2 at 2l/min continuos. Able to transition from sit to stand unassisted. Ambulates with bilaterally normal heel strike and toe off. Resp Effort & Inspection: normal respiratory effort, able to speak in complete sentences, no cough, no respiratory distress, no stridor and symmetric chest movement Back/Spine/Pelvis Cervical Spine: cervical muscular tenderness, pain with cervical ROM and No Cervical spine tenderness Thoracic/Lumbar Spine: thoracic and lumbar spine normal to inspection, Lasegue's sign negative, straight leg raise negative bilaterally, pain with thoraco-lumbar ROM, thoraco-lumbar ROM limited, No thoracic spinal tenderness and lumbar spinal tenderness at L4 and at L5 Pelvis: buttock tenderness on the right Sacroiliac joints: on the right (+Gregory's) tender to palpation and on the left nontender Psych Appearance: grossly normal Mental Status: mental status grossly normal Speech and movement: Normal speech and movement present and Clear speech present Affect: normal affect Attitude: cooperative Thought process: Normal thought process present Thought content: Normal thought content present, suicidality (none), no hallucinations and Depressive thoughts present Insight: Good insight present (Psych) Judgement: Good judgement present (Psych) Results Reviewed Results Reviewed: MRI LUMBAR SPINE WITHOUT CONTRAST EXAM DATE 05/07/2019 The marrow signal is within normal limits. Moderate disc space narrowing at L3-L4, severe loss of disc height L4-5 with endplate spurring mild endplate edema laterally on the right at L4-5. Mild rightward curvature of lumbar spine. No compression fractures. Trace anterior subluxation at L4-5. The paraspinal soft tissues appear normal. Bony pelvis is normal. Conus medullaris: Normal terminating at the level of L1. No level a spinal cord abnormalities. The cauda equina nerve roots are normal. Spinal levels: L1-L2: No disc pathology. No central canal stenosis or foraminal narrowing. L2-L3: Very mild disc bulge presents without central canal stenosis or foraminal encroachment. L3-L4: Moderate loss of disc height with large left foraminal disc extrusion! Severely compressing the exiting left L3 nerve root. Underlying mild disc bulge and mild facet arthropathy. No central canal stenosis. L4-5: Significant loss of disc height with broad-based disc bulge and right foraminal extraforaminal disc protrusion mildly distorting the exiting right L4 nerve root. Moderate facet arthropathy without central canal stenosis. L5-S1: Mild facet arthrosis no disc pathology: No central canal stenosis, or foraminal narrowing. XR SOFT TISSUE NECK 06/09/23 FINDINGS: Limited evaluation of the lower cervical spine secondary to patient positioning. No acute visible fracture or dislocation. Multilevel degenerative changes. Vertebral body heights and disc spaces are maintained. Prevertebral soft tissues unremarkable. Posterior elements are intact. Paraspinal soft tissues are unremarkable. Visualized portions of the upper chest are unremarkable. IMPRESSION: 1. Limited evaluation of the lower cervical spine secondary to patient positioning. 2. No acute visible fracture or dislocation. 3. Multilevel degenerative changes. CT/CT soft tissue neck w IV con 06/25/23 IMPRESSION: No cervical adenopathy or extra-mucosal soft tissue mass. Rightward curvature of the cervical spine with multilevel hypertrophic facet arthropathy. Mild amount of secretions in the tracheal airway which potentially would put the patient at risk for aspiration. Significant emphysematous changes in the lungs. 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 Category: Medical (2) Cervicalgia: Code(s): M54.2 - Cervicalgia Category: Medical (3) Disc degeneration, lumbar: Code(s): M51.36 - Other intervertebral disc degeneration, lumbar region Category: Medical (4) Spondylosis of lumbar region without myelopathy or radiculopathy: Code(s): M47.816 - Spondylosis without myelopathy or radiculopathy, lumbar region Category: Medical (5) Sacroiliitis: Code(s): M46.1 - Sacroiliitis, not elsewhere classified Category: Medical (6) Current chronic use of systemic steroids: Code(s): 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 Masspat was reviewed and without concerns. No obvious signs of diversion, abuse or misuse of the opioid medications. Patient reports adequate analgesia on current medication regime. Prescription sent for Oxycodone 5mg po TID prn with an advanced date of 10/03/23. Narcan script sent today. Patient to follow-up in the office in 4-5 weeks for pill count, sooner if needed. Medications: New naloxone 4 mg/actuation (Narcan) spray 1 dose into ONE nostril; alternate nostrils w each dose until help arrives 4 mg intranasal Q2M PRN 2 ea 0RF opioid overdose Z79.891 - [facility] use of [facility]iate analgesic Refilled oxycodone Partial Fill upon patient request. 5 mg PO TID 30 days PRN 90 tabs 0RF pain M46.1 - Sacroiliitis, not elsewhere classified, M47.816 - Spondylosis without myelopathy or radiculopathy, lumbar region, M51.36 - Other intervertebral disc degeneration, lumbar region Coding Level of Care Code Est Pt Level 4 (36884) Diagnoses Opioid contract exists Z79.891 Cervicalgia M54.2 Disc degeneration, lumbar M51.36 Spondylosis of lumbar region without myelopathy or radiculopathy M47.816 Sacroiliitis M46.1 Current chronic use of systemic steroids Z79.52
[2023-09-08 13:14] VITALS: BP 137/73; PULSE 67; O2SAT 94; BMI 16.5
== END 2023-09-08 13:30 | disposition home or self-care (01) ==
PROVIDERS: PCP Internal Medicine; Visit Provider Nurse Practitioner Family
DX: M54.2 Cervicalgia (principal); M51.36 Other intervertebral disc degeneration, lumbar region; M47.816 Spondylosis without myelopathy or radiculopathy, lumbar region; Z79.891 Long term (current) use of opiate analgesic; M46.1 Sacroiliitis, not elsewhere classified; Z79.52 Long term (current) use of systemic steroids
CPT/HCPCS: 99214

== ENCOUNTER → 2023-09-08 13:05 | Outpatient (BNVA) | payer MEDICAID, SELFPAY | PROVIDERS: PCP Internal Medicine; Visit Provider Nurse Practitioner Family | DX: Z51.81 Encounter for therapeutic drug level monitoring (principal); M54.2 Cervicalgia; M51.36 Other intervertebral disc degeneration, lumbar region; M46.1 Sacroiliitis, not elsewhere classified; M47.816 Spondylosis without myelopathy or radiculopathy, lumbar region; Z79.891 Long term (current) use of opiate analgesic; Z79.52 Long term (current) use of systemic steroids | CPT/HCPCS: 99212 ==

== ENCOUNTER 2023-10-10 13:04 | Outpatient (AMB) | payer MEDICAID, SELFPAY ==
--- NOTE | 2023-10-10 13:06 | A.OFFVIS_ITS ---
Vital Signs 10/10/23 13:16 Height 5 ft Weight 120 lb 6 oz BMI 23.5 BP 150/82 H Blood Pressure Location Lt brachial Position Sitting Pulse 80 Pulse Source Pulse Oximeter Pulse Oximetry (%) 92 Oxygen Delivery Method Nasal Cannula Oxygen Flow Rate 2 Intake Visit Reasons: PILL COUNT Intake Note: Deysi comes in today for a pill count to oxycodone, patient should have 69 tablets and presents with 71 tablets which she last took today 10/10/23 at 9am. Pain today 10/07 Social Media Coordinator Required: No Accompanied by: Spouse Allergies Penicillins [PENICILLINS] Allergy (Severe, Verified 09/08/23 13:15) RASH HPI Comments Details: Patient presents today for a pill count. She is supposed to have #69 pills in her possession and presents with #71 pills. This demonstrates a responsible attitude in regards to her opioid regimen. Patient reports adequate analgesia on her current regime. She also takes pregabalin 150 mg BID. Pain is rated at 6/10 for lower back and SIJ pain generators. Patient reports current medication regime allows her to be less symptomatic and more functional. Patient denies any fever, chills, weight loss, abdominal or groin pain, constipation, urinary retention, sedation, nausea, vomiting, constipation, sedation, dizziness, or urinary retention . Patient is O2 dependent at 2L/min at rest and 3L/min w/ambulation continuous use for COPD. FOR[facility]LY [facility] Medical History Respiratory failure with hypoxia COPD exacerbation Pre-op examination History of OCD (obsessive compulsive disorder) History of panic attacks Anxiety and depression Radiculopathy, lumbar region HTN (hypertension) Sacroiliitis COPD (chronic obstructive pulmonary disease) Asthma Allergic rhinitis Disc degeneration, lumbar Surgical History History of surgery History of appendectomy Hx of tonsillectomy Status post excision of lipoma History of tubal ligation Hx of excision of mass History of surgery History of laparoscopic cholecystectomy History of esophagogastroduodenoscopy (EGD) History of umbilical hernia repair History of incision and drainage Family History Family/Other Cervical cancer Family/Other Stomach cancer Social History Household Members: Spouse Household Members Other:: grandson Housing: House Do you presently have visiting nurse or other home services: No Alcohol intake: never Patient Tobacco Use Status: Former Tobacco user Tobacco use type: Cigarette Substance Use Type: Marijuana service: No Current occupational status: unemployed Sexual orientation: Straight/Heterosexual Gender identity: Female Review of Systems Const All systems reviewed & are unremarkable except as noted in HPI and below Physical Exam Vital Signs: Last Vital Signs Pulse 80 10/10/23 13:16 BP 150/82 H 10/10/23 13:16 Pulse Ox 92 10/10/23 13:16 Oxygen Delivery Method Nasal Cannula 10/10/23 13:16 Oxygen Flow Rate 2 10/10/23 13:16 BMI result Body Mass Index 23.5 General: Appears afebrile. Alert and oriented. Mood and affect appropriate. Follows and participates in conversation appropriately. Respiratory effort is unlabored. No cough. O2 at 2l/min continuos. Able to transition from sit to stand unassisted. Ambulates with bilaterally normal heel strike and toe off. Resp Effort & Inspection: normal respiratory effort, able to speak in complete sentences, no cough, no respiratory distress, no stridor and symmetric chest movement Back/Spine/Pelvis Cervical Spine: cervical muscular tenderness, pain with cervical ROM and No Cervical spine tenderness Thoracic/Lumbar Spine: thoracic and lumbar spine normal to inspection, Lasegue's sign negative, straight leg raise negative bilaterally, pain with thoraco- lumbar ROM, thoraco-lumbar ROM limited, No thoracic spinal tenderness and lumbar spinal tenderness at L4 and at L5 Pelvis: buttock tenderness on the right Sacroiliac joints: on the right (+Gregory's) tender to palpation and on the left nontender Psych Appearance: grossly normal Mental Status: mental status grossly normal Speech and movement: Normal speech and movement present and Clear speech present Affect: normal affect Attitude: cooperative Thought process: Normal thought process present Thought content: Normal thought content present, suicidality (none), no hallucinations and Depressive thoughts present Insight: Good insight present (Psych) Judgement: Good judgement present (Psych) Results Reviewed Results Reviewed: MRI LUMBAR SPINE WITHOUT CONTRAST EXAM DATE 05/07/2019 The marrow signal is within normal limits. Moderate disc space narrowing at L3- L4, severe loss of disc height L4-5 with endplate spurring mild endplate edema laterally on the right at L4-5. Mild rightward curvature of lumbar spine. No compression fractures. Trace anterior subluxation at L4-5. The paraspinal soft tissues appear normal. Bony pelvis is normal. Conus medullaris: Normal terminating at the level of L1. No level a spinal cord abnormalities. The cauda equina nerve roots are normal. Spinal levels: L1-L2: No disc pathology. No central canal stenosis or foraminal narrowing. L2-L3: Very mild disc bulge presents without central canal stenosis or foraminal encroachment. L3-L4: Moderate loss of disc height with large left foraminal disc extrusion! Severely compressing the exiting left L3 nerve root. Underlying mild disc bulge and mild facet arthropathy. No central canal stenosis. L4-5: Significant loss of disc height with broad-based disc bulge and right foraminal extraforaminal disc protrusion mildly distorting the exiting right L4 nerve root. Moderate facet arthropathy without central canal stenosis. L5-S1: Mild facet arthrosis no disc pathology: No central canal stenosis, or foraminal narrowing. XR SOFT TISSUE NECK 06/09/23 FINDINGS: Limited evaluation of the lower cervical spine secondary to patient positioning. No acute visible fracture or dislocation. Multilevel degenerative changes. Vertebral body heights and disc spaces are maintained. Prevertebral soft tissues unremarkable. Posterior elements are intact. Paraspinal soft tissues are unremarkable. Visualized portions of the upper chest are unremarkable. IMPRESSION: 1. Limited evaluation of the lower cervical spine secondary to patient positioning. 2. No acute visible fracture or dislocation. 3. Multilevel degenerative changes. CT/CT soft tissue neck w IV con 06/25/23 IMPRESSION: No cervical adenopathy or extra-mucosal soft tissue mass. Rightward curvature of the cervical spine with multilevel hypertrophic facet arthropathy. Mild amount of secretions in the tracheal airway which potentially would put the patient at risk for aspiration. Significant emphysematous changes in the lungs. Assessment & Plan Assessment & Plan (1) Opioid contract exists: Code(s): Z79.891 - long-term (current) use of opiate analgesic Category: Medical (2) Cervicalgia: Code(s): M54.2 - Cervicalgia Category: Medical (3) Disc degeneration, lumbar: Code(s): M51.36 - Other intervertebral disc degeneration, lumbar region Category: Medical (4) Spondylosis of lumbar region without myelopathy or radiculopathy: Code(s): M47.816 - Spondylosis without myelopathy or radiculopathy, lumbar region Category: Medical (5) Sacroiliitis: Code(s): M46.1 - Sacroiliitis, not elsewhere classified Category: Medical Plan Patient has shown accountability for her medication regimen and the pill count was accurate. Masspat was reviewed and without concerns. No obvious signs of diversion, abuse or misuse of the opioid medications. Patient reports adequate analgesia on current medication regime. Prescription sent for Oxycodone 5mg po TID prn with an advanced date of 11/03/23. Patient has Narcan script at home. Patient to follow-up in the office in one month for pill count, sooner if needed. Medications: Refilled oxycodone Partial Fill upon patient request. 5 mg PO TID 30 days PRN 90 tabs 0RF pain M46.1 - Sacroiliitis, not elsewhere classified, M47.816 - Spondylosis without myelopathy or radiculopathy, lumbar region, M51.36 - Other intervertebral disc degeneration, lumbar region Coding Level of Care Code Est Pt Level 4 (72199) Diagnoses Opioid contract exists Z79.891 Cervicalgia M54.2 Disc degeneration, lumbar M51.36 Spondylosis of lumbar region without myelopathy or radiculopathy M47.816 Sacroiliitis M46.1
[2023-10-10 13:16] VITALS: BP 150/82; PULSE 80; O2SAT 92; BMI 23.5
== END 2023-10-10 13:25 | disposition home or self-care (01) ==
PROVIDERS: PCP Internal Medicine; Visit Provider Nurse Practitioner Family
DX: M54.2 Cervicalgia (principal); M51.36 Other intervertebral disc degeneration, lumbar region; M47.816 Spondylosis without myelopathy or radiculopathy, lumbar region; Z79.891 Long term (current) use of opiate analgesic; M46.1 Sacroiliitis, not elsewhere classified
CPT/HCPCS: 99214

== ENCOUNTER → 2023-10-10 13:04 | Outpatient (BNVA) | payer MEDICAID, SELFPAY | PROVIDERS: PCP Internal Medicine; Visit Provider Nurse Practitioner Family | DX: Z51.81 Encounter for therapeutic drug level monitoring (principal); M54.2 Cervicalgia; M51.36 Other intervertebral disc degeneration, lumbar region; M47.816 Spondylosis without myelopathy or radiculopathy, lumbar region; M46.1 Sacroiliitis, not elsewhere classified; Z79.891 Long term (current) use of opiate analgesic | CPT/HCPCS: 99212 ==

== ENCOUNTER 2023-10-13 14:31 | Outpatient (AMB) | payer MEDICAID, SELFPAY ==
[2023-10-13 14:46] VITALS: BP 108/62; PULSE 71; O2SAT 91; BMI 22.3
--- NOTE | 2023-10-13 14:46 | A.OFFVIS_ITS ---
Vital Signs 10/13/23 14:46 Height 5 ft Weight 114 lb BMI 22.3 BP 108/62 Blood Pressure Location Lt brachial Position Sitting Pulse 71 Pulse Source Pulse Oximeter Pulse Oximetry (%) 91 L Oxygen Delivery Method Nasal Cannula Oxygen Flow Rate 2 Intake Visit Reasons: copd Intake Note: pt is here for folllow up and states she is at her baseline, weather is not agreeing with her. please send refill on duobeb to [facility]. and inhalers to [facility]/ Allergies Penicillins [PENICILLINS] Allergy (Severe, Verified 10/13/23 15:02) RASH Medication List - Last Reconciled 10/13/23 by Erickson Mathews MD acetaminophen (Tylenol Extra Strength) 500 mg PO Q6H PRN albuterol sulfate 2.5 mg (3 mL) inhalation Q4-6H PRN albuterol sulfate 90 mcg/actuation (Ventolin HFA) 2 puffs inhalation QID PRN benzonatate 200 mg PO TID PRN budesonide-formoterol 160-4.5 mcg/actuation (Symbicort) 2 puffs inhalation BID cholecalciferol (vitamin D3) 50 mcg PO QAM esomeprazole magnesium 40 mg PO QAM ibuprofen 400 mg PO Q6H PRN ipratropium-albuterol 0.5 mg-3 mg(2.5 mg base)/3 mL 3 mL inhalation Q6-8H PRN 30 days lidocaine 5% 1 appl topical BID PRN lisinopril 1 tab PO DAILY mirtazapine 45 mg PO BEDTIME montelukast 10 mg PO BEDTIME naloxone 4 mg/actuation (Narcan) 4 mg intranasal Q2M PRN ondansetron HCl 4 mg PO BID-TID PRN 14 days oxycodone 5 mg PO TID PRN 30 days prednisone 5 mg PO QAM pregabalin 150 mg PO BID quetiapine (Seroquel) 100 mg PO BEDTIME quetiapine 25 mg PO DAILY PRN tiotropium bromide 2.5 mcg/actuation (Spiriva Respimat) 2 puffs inhalation QAM Do you need a note to return to daycare/school/sports/work: No HPI HPI copd: Details: THIS 53 YEARS OLD FEMALE OF A THIN BUILD, WITH PAST HISTORY OF SMOKING, AND LONGSTANDING BRONCHIAL ASTHMA/COPD IS HERE FOR HER ROUTINE FOLLOW-UP SHE REMAINS SHORT OF BREATH ON ANY PHYSICAL EXERTION AND ALSO HAS INTERMITTENT COUGH, ESPECIALLY DURING HOT AND HUMID WEATHER. BUT OVERALL SHE HAS REMAINED STABLE WITHOUT ANY ACUTE INFECTION OR EXACERBATION. SHE IS ON MAXIMUM MEDICAL TREATMENT INCLUDING PREDNISONE 5 MG DAILY. SHE IS ALSO ON OXYGEN 24 HOURS A DAY. [facility] Medical History Respiratory failure with hypoxia COPD exacerbation Pre-op examination History of OCD (obsessive compulsive disorder) History of panic attacks Anxiety and depression Radiculopathy, lumbar region HTN (hypertension) Sacroiliitis COPD (chronic obstructive pulmonary disease) Asthma Allergic rhinitis Disc degeneration, lumbar Surgical History History of surgery History of appendectomy Hx of tonsillectomy Status post excision of lipoma History of tubal ligation Hx of excision of mass History of surgery History of laparoscopic cholecystectomy History of esophagogastroduodenoscopy (EGD) History of umbilical hernia repair History of incision and drainage Family History Family/Other Cervical cancer Family/Other Stomach cancer Social History (Reviewed 10/13/23 @ 14:50 by Olamide Wilson [facility]) Household Members: Spouse Household Members Other:: grandson Housing: House Do you presently have visiting nurse or other home services: No Alcohol intake: never Patient Tobacco Use Status: Former Tobacco user Tobacco use type: Cigarette Substance Use Type: Marijuana service: No Current occupational status: unemployed Sexual orientation: Straight/Heterosexual Gender identity: Female Review of Systems Const All systems reviewed & are unremarkable except as noted in HPI and below Eyes Reports no additional complaints ENT Reports nasal congestion and Reports nasal discharge (OFF AND ON) Card Denies chest pain, Denies irregular heart rhythm and Denies leg edema Resp Reports as per HPI GI Reports no additional complaints Reports no additional complaints Musc Reports back pain and Reports arthralgias Skin/Breast Reports system reviewed and no additional complaints, except as documented Neuro Reports no additional complaints Psych Reports depression (Mild) Endo Reports no additional complaints Physical Exam Vital Signs: Last Vital Signs Pulse 71 10/13/23 14:46 BP 108/62 10/13/23 14:46 Pulse Ox 91 L 10/13/23 14:46 Oxygen Delivery Method Nasal Cannula 10/13/23 14:46 Oxygen Flow Rate 2 10/13/23 14:46 BMI result Body Mass Index 22.3 Const General: comfortable, no acute distress, alert and awake Orientation/consciousness: patient oriented x3 HEENT Head: Yes normal to inspection General nose exam: No nasal polyps present, No nasal discharge present and Other nasal findings present (Mild bilateral nasal congestion) Face and sinus: Yes sinuses nontender Mouth: oropharynx normal Throat: Yes posterior oropharynx normal Eyes General: appearance normal, both eyes and all related structures Neck Neck: Yes normal visual inspection, Yes no lymphadenopathy, Yes trachea midline and Yes no JVD Thyroid: Thyroid normal Chest Chest palpation & inspection: normal inspection of the chest, normal palpation of entire chest wall and no tenderness Resp Other: Percussion note is HYPER RESONANT , she does have good breath sounds on both sides but quite distant with prolonged expiratory phase. No audible wheezes or rhonchi heard. Cardio Palpation: normal PMI Rate: regular rate Rhythm: regular rhythm Heart sounds: no gallops and no murmurs Peripheral pulses: Peripheral pulses 2+ throughout GI Palpation (GI): Soft to palpation, nontender, No hepatosplenomegaly present and no masses Auscultation: normal bowel sounds Back/Spine/Pelvis Thoracic/Lumbar Spine: thoracic and lumbar spine normal to inspection and thoraco-lumbar ROM limited Skin General skin exam: no rashes or lesions noted Neuro General: patient oriented x3 and no focal motor deficits Cranial nerves: Yes CN's II-XII intact bilaterally Extrem General: Yes normal to inspection, Yes no clubbing, cyanosis or edema and Yes no calf tenderness Psych Appearance: grossly normal and well kempt Speech and movement: Normal speech and movement present Office Procedures Spirometry Testing Spirometry Comments: Spirometry done in the office, Dr. Mathews has the results reults scanned to her chart. 55050- Spirometry Results Reviewed Results Reviewed: SPIROMETRY 10/16/2021 10/13/2023 FVC 56 % 61 % FEV1 19 % 27 % FEV1/FVC 28 36 FEF 25-75 6 % 14 % Assessment & Plan Assessment & Plan (1) COPD (chronic obstructive pulmonary disease): Comment: ASTHMA/COPD SEVERE. COPD IS DUE TO HER CHRONIC [place] BRONCHIAL ASTHMA AND PAST HISTORY OF SMOKING. CLINICALLY DOING BETTER AND STABLE . SPIROMETRY NUMBERS ARE VERY POOR BUT ACTUALLY SLIGHTLY IMPROVED FROM 2021. Code(s): J44.9 - Chronic obstructive pulmonary disease, unspecified Category: Medical Qualifiers: COPD type: COPD with acute exacerbation Qualified Code(s): J44.1 - Chronic obstructive pulmonary disease with (acute) exacerbation Plan: ADVISED TO STAY ON HER CURRENT REGIMEN WHICH INCLUDES : SYMBICORT 160-4.52 PUFFS B.I.D. IPRATROPIUM-ALBUTEROL 0.5-3 MG 3 ML SOLUTION IN THE NEBULIZER Q 6 HOURS P.R.N. ( 3 TIMES A DAY) SPIRIVA RESPIMAT 2.5 MCG 2 INHALATION DAILY. PREDNISONE 5 MG DAILY. SHE IS ADVISED TO TAKE VITAMIN-D SUPPLEMENTATION AND CALCIUM SUPPLEMENTS EVERY DAY ( SAY IS SHE HAS AT HOME AND IS TAKING DAILY ) (2) Allergic rhinitis: Comment: SHE HAS CHRONIC, YEAR ROUND ALLERGIC RHINITIS. CURRENTLY IT IS UNDER CONTROL WITH HER MEDICATION REGIMEN. Code(s): J30.9 - Allergic rhinitis, unspecified Category: Medical Plan: MONTELUKAST 10 MG DAILY, LORATADINE 10 MG ONCE A DAY P.R.N. (3) Respiratory failure with hypoxia: Comment: She was hypoxemic with minimal exertion. Has been started on O2 therapy. Feels stronger and better. USING O2 2 L/MINUTE 24 HOURS A DAY. HOWEVER WHEN RESTING AT HOME SHE COMES OF OXYGEN . FOR SHORT INTERVALS Code(s): J96.91 - Respiratory failure, unspecified with hypoxia Category: Medical Plan: USE O2 2 L/MINUTE DURING THE NIGHT. USE O2 2 L/MINUTE WITH PORTABLE UNIT ANY TIME SHE HAS TO GO OUTDOORS OR DOING ANY PHYSICAL WORK. USE O2 2 L/MINUTE ANY RESPIRATORY DISTRESS EVEN AT REST. Orders: Orders AMB Spirometry Testing Today J44.1 - Chronic obstructive pulmonary disease with (acute) exacerbation Coding Level of Care Code Est Pt Level 3 (90883) Diagnoses COPD (chronic obstructive pulmonary disease) J44.1 COPD type: COPD with acute exacerbation Allergic rhinitis J30.9 Respiratory failure with hypoxia J96.91 CPT Codes Spirometry - CPT: 03217- Spirometry ([id number])
== END 2023-10-13 15:21 | disposition home or self-care (01) ==
PROVIDERS: PCP Internal Medicine; Visit Provider Internal Medicine
DX: J44.1 Chronic obstructive pulmonary disease with (acute) exacerbation (principal); J30.9 Allergic rhinitis, unspecified; J96.91 Respiratory failure, unspecified with hypoxia
CPT/HCPCS: 94010; 99213

== ENCOUNTER → 2023-10-13 14:31 | Outpatient (BNVA) | payer MEDICAID, SELFPAY | PROVIDERS: PCP Internal Medicine; Visit Provider Internal Medicine | DX: J44.1 Chronic obstructive pulmonary disease with (acute) exacerbation (principal); J30.9 Allergic rhinitis, unspecified; J96.91 Respiratory failure, unspecified with hypoxia | CPT/HCPCS: 94010; 99212 ==

== ENCOUNTER → 2023-10-21 11:08 | Outpatient (REF) | payer MEDICAID, SELFPAY ==
--- NOTE | 2023-10-21 11:12 | HM_ITS ---
Conclusion: 1. Patient was monitored for total period of 2 days 2. Baseline was normal sinus rhythm with average heart of 82 beats per minute 3. Intermittent episodes of atrial flutter noted, total burden of 4.7% with longest episode lasting 38 minutes and 41 seconds at heart rate of 162 beats per minute 4. Rare PACs and PVCs noted 5. No significant pauses noted 6. No patient reported events MTDD
== END ==
LOC: HO.CARD 11:08
PROVIDERS: PCP Internal Medicine; Visit Provider Internal Medicine
DX: R00.2 Palpitations (principal)
CPT/HCPCS: 93225

== ENCOUNTER → 2023-10-21 11:12 | Outpatient (BNV) | payer MEDICAID, SELFPAY | PROVIDERS: PCP Internal Medicine; Visit Provider Internal Medicine Cardiovascular Disease | DX: I48.92 Unspecified atrial flutter (principal) | CPT/HCPCS: 93227 ==

== ENCOUNTER 2023-11-12 11:29 | Outpatient (REF) | payer MEDICAID, SELFPAY ==
--- NOTE | ~2023-11-12 | US_ITS ---
EXAMINATION: US PELVIS CLINICAL INFORMATION: Leiomyoma of uterus. COMPARISON: Pelvic ultrasound 10/04/2022. TECHNIQUE: Ultrasound of the pelvis is performed using both transabdominal and transvaginal transducers along with Doppler. Transvaginal imaging is performed due to inadequate visualization transabdominally. FINDINGS: UTERUS: The uterus is retroverted and retroflexed measuring 5.9 x 2.4 x 4.0 cm. The double wall endometrial thickness is 3 mm. The uterus is smooth in contour and has normal myometrial echogenicity. Two small subcentimeter fibroids are present which have decreased in size compared to prior with the largest measuring 4 x 5 x 4 mm in size. ADNEXA: Both ovaries are visualized. There is normal color flow to the adnexa. There is no ovarian torsion. There is no pelvic ascites or fluid collection. Right ovary measures 2.4 x 1.0 x 1.3 cm. Left ovary measures 2.4 x 1.1 x 1.5 cm. US/US pelvic and transvaginal IMPRESSION: Two small subcentimeter uterine fibroids have decreased in size. Electronically signed by: Hakan Watson MD 12/02/2023 04:02 PM EDT
== END 2023-11-12 11:30 | disposition home or self-care (01) ==
LOC: HO.US 11:29
PROVIDERS: PCP Internal Medicine; Visit Provider Obstetrics & Gynecology
DX: D25.9 Leiomyoma of uterus, unspecified (principal)
CPT/HCPCS: 76830; 76856

== ENCOUNTER 2023-11-14 13:19 | Outpatient (AMB) | payer MEDICAID, SELFPAY ==
--- NOTE | 2023-11-14 13:20 | MHC.OFFVIS ---
Vital Signs 11/14/23 13:29 Height 5 ft Weight 114 lb 2 oz BMI 22.3 BP 130/74 Blood Pressure Location Lt brachial Position Sitting Pulse 85 Pulse Source Pulse Oximeter Pulse Oximetry (%) 94 Oxygen Delivery Method Nasal Cannula Oxygen Flow Rate 2 Intake Visit Reasons: PILL COUNT Intake Note: Deysi comes in today for a pill count to oxycodone, patient should have 57 tablets and presents with 60 tablets which she last took today 11/14/23 at 8:30am. 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 She is supposed to have #57 pills in her possession and presents with #60 pills. This demonstrates a responsible attitude in regards to her opioid regimen. Patient reports adequate analgesia on her current regime and also takes pregabalin 150 mg BID, prescribed by her PCP. Pain is rated at 6/10 for lower back and SIJ pain generators. Patient reports current medication regime allows her to be less symptomatic and more functional. Patient denies any fever, chills, weight loss, abdominal or groin pain, constipation, urinary retention, sedation, nausea, vomiting, constipation, sedation, dizziness, or urinary retention. Patient is O2 dependent at 2L/min at rest and 3L/min w/ambulation continuous use for COPD. [facility] Medical History Respiratory failure with hypoxia COPD exacerbation Pre-op examination History of OCD (obsessive compulsive disorder) History of panic attacks Anxiety and depression Radiculopathy, lumbar region HTN (hypertension) Sacroiliitis COPD (chronic obstructive pulmonary disease) Asthma Allergic rhinitis Disc degeneration, lumbar Surgical History History of surgery History of appendectomy Hx of tonsillectomy Status post excision of lipoma History of tubal ligation Hx of excision of mass History of surgery History of laparoscopic cholecystectomy History of esophagogastroduodenoscopy (EGD) History of umbilical hernia repair History of incision and drainage Family History Family/Other Cervical cancer Family/Other Stomach cancer Social History Household Members: Spouse Household Members Other:: grandson Housing: House Do you presently have visiting nurse or other home services: No Alcohol intake: never Patient Tobacco Use Status: Former Tobacco user Tobacco use type: Cigarette Substance Use Type: Marijuana service: No Current occupational status: unemployed Sexual orientation: Straight/Heterosexual Gender identity: Female Review of Systems Const All systems reviewed & are unremarkable except as noted in HPI and below Physical Exam Vital Signs: Last Vital Signs Pulse 85 11/14/23 13:29 BP 130/74 11/14/23 13:29 Pulse Ox 94 11/14/23 13:29 Oxygen Delivery Method Nasal Cannula 11/14/23 13:29 Oxygen Flow Rate 2 11/14/23 13:29 BMI result Body Mass Index 22.3 General: Appears afebrile. Alert and oriented. Mood and affect appropriate. Follows and participates in conversation appropriately. Respiratory effort is unlabored. No cough. O2 at 2l/min continuos. Able to transition from sit to stand unassisted. Ambulates with bilaterally normal heel strike and toe off. Resp Effort & Inspection: normal respiratory effort, able to speak in complete sentences, no cough, no respiratory distress and symmetric chest movement Back/Spine/Pelvis Cervical Spine: cervical muscular tenderness, pain with cervical ROM and No Cervical spine tenderness Thoracic/Lumbar Spine: thoracic and lumbar spine normal to inspection, straight leg raise negative bilaterally, pain with thoraco-lumbar ROM, thoraco-lumbar ROM limited, No thoracic spinal tenderness and lumbar spinal tenderness at L4 and at L5 Pelvis: buttock tenderness on the right Sacroiliac joints: on the right (+Gregory's) tender to palpation and on the left nontender Psych Appearance: grossly normal Mental Status: mental status grossly normal Speech and movement: Normal speech and movement present and Clear speech present Affect: normal affect Attitude: cooperative Thought process: Normal thought process present Thought content: Normal thought content present, suicidality (none), no hallucinations and No Depressive thoughts present Insight: Good insight present (Psych) Judgement: Good judgement present (Psych) Results Reviewed Results Reviewed: MRI LUMBAR SPINE WITHOUT CONTRAST EXAM DATE 05/07/2019 The marrow signal is within normal limits. Moderate disc space narrowing at L3-L4, severe loss of disc height L4-5 with endplate spurring mild endplate edema laterally on the right at L4-5. Mild rightward curvature of lumbar spine. No compression fractures. Trace anterior subluxation at L4-5. The paraspinal soft tissues appear normal. Bony pelvis is normal. Conus medullaris: Normal terminating at the level of L1. No level a spinal cord abnormalities. The cauda equina nerve roots are normal. Spinal levels: L1-L2: No disc pathology. No central canal stenosis or foraminal narrowing. L2-L3: Very mild disc bulge presents without central canal stenosis or foraminal encroachment. L3-L4: Moderate loss of disc height with large left foraminal disc extrusion! Severely compressing the exiting left L3 nerve root. Underlying mild disc bulge and mild facet arthropathy. No central canal stenosis. L4-5: Significant loss of disc height with broad-based disc bulge and right foraminal extraforaminal disc protrusion mildly distorting the exiting right L4 nerve root. Moderate facet arthropathy without central canal stenosis. L5-S1: Mild facet arthrosis no disc pathology: No central canal stenosis, or foraminal narrowing. XR SOFT TISSUE NECK 06/09/23 FINDINGS: Limited evaluation of the lower cervical spine secondary to patient positioning. No acute visible fracture or dislocation. Multilevel degenerative changes. Vertebral body heights and disc spaces are maintained. Prevertebral soft tissues unremarkable. Posterior elements are intact. Paraspinal soft tissues are unremarkable. Visualized portions of the upper chest are unremarkable. IMPRESSION: 1. Limited evaluation of the lower cervical spine secondary to patient positioning. 2. No acute visible fracture or dislocation. 3. Multilevel degenerative changes. CT/CT soft tissue neck w IV con 06/25/23 IMPRESSION: No cervical adenopathy or extra-mucosal soft tissue mass. Rightward curvature of the cervical spine with multilevel hypertrophic facet arthropathy. Mild amount of secretions in the tracheal airway which potentially would put the patient at risk for aspiration. Significant emphysematous changes in the lungs. 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 Masspat was reviewed and without concerns. No obvious signs of diversion, abuse or misuse of the opioid medications. Patient reports adequate analgesia on current medication regime. Prescription sent for Oxycodone 5mg po TID prn with an advanced date of 12/04/23. Patient has Narcan script at home. She also takes pregabalin 150 mg BID prescribed by her PCP. Patient to follow-up in the office in one month for pill count, sooner if needed. Medications: Refilled oxycodone Partial Fill upon patient request. 5 mg PO TID PRN 90 tabs 0RF pain 30 days M46.1 - Sacroiliitis, not elsewhere classified, M47.816 - Spondylosis without myelopathy or radiculopathy, lumbar region, M51.36 - Other intervertebral disc degeneration, lumbar region Coding Level of Care Code Est Pt Level 4 (50821) Diagnoses Opioid contract exists Z79.891 Cervicalgia M54.2 Disc degeneration, lumbar M51.36 Spondylosis of lumbar region without myelopathy or radiculopathy M47.816 Sacroiliitis M46.1
[2023-11-14 13:29] VITALS: BP 130/74; PULSE 85; O2SAT 94; BMI 22.3
== END 2023-11-14 13:32 | disposition home or self-care (01) ==
PROVIDERS: PCP Internal Medicine; Visit Provider Nurse Practitioner Family
DX: M54.2 Cervicalgia (principal); M51.36 Other intervertebral disc degeneration, lumbar region; Z79.891 Long term (current) use of opiate analgesic; M47.816 Spondylosis without myelopathy or radiculopathy, lumbar region; M46.1 Sacroiliitis, not elsewhere classified
CPT/HCPCS: 99214

== ENCOUNTER → 2023-11-14 13:19 | Outpatient (BNVA) | payer MEDICAID, SELFPAY | PROVIDERS: PCP Internal Medicine; Visit Provider Nurse Practitioner Family | DX: M54.2 Cervicalgia (principal); M51.36 Other intervertebral disc degeneration, lumbar region; M47.816 Spondylosis without myelopathy or radiculopathy, lumbar region; M46.1 Sacroiliitis, not elsewhere classified; Z51.81 Encounter for therapeutic drug level monitoring; Z79.891 Long term (current) use of opiate analgesic | CPT/HCPCS: 99212 ==

== ENCOUNTER 2023-12-12 12:56 | Outpatient (AMB) | payer MEDICAID, SELFPAY ==
--- NOTE | 2023-12-12 13:02 | MHC.OFFVIS ---
Vital Signs 12/12/23 13:11 Height 5 ft Weight 115 lb BMI 22.5 BP 113/70 Blood Pressure Location Lt brachial Position Sitting Pulse 78 Pulse Source Pulse Oximeter Pulse Oximetry (%) 96 Oxygen Delivery Method Room Air Oxygen Flow Rate 2 Intake Visit Reasons: Pill Count Intake Note: Deysi comes in today for a pill count to oxycodone, patient should have 66 tablets and presents with 69 tablets which she last took today 12/12/23 at 8:30am. 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 She is supposed to have #66 pills in her possession and presents with #69 pills. This demonstrates a responsible attitude in regards to her opioid regimen. She reports adequate analgesia on her current regime and also takes pregabalin 150 mg BID, prescribed by her PCP. Pain is rated at 6/10 for lower back and SIJ pain generators. Patient reports current medication regime allows her to be less symptomatic and more functional. Patient also reports left lower extremity tenderness along left medial ankle and varicose veins. Patient denies any fever, chills, weight loss, abdominal or groin pain, constipation, urinary retention, sedation, nausea, vomiting, constipation, sedation, dizziness, or urinary retention. Patient is O2 dependent at 2L/min at rest and 3L/min w/ambulation continuous use for COPD. [facility], [facility] Medical History Respiratory failure with hypoxia COPD exacerbation Pre-op examination History of OCD (obsessive compulsive disorder) History of panic attacks Anxiety and depression Radiculopathy, lumbar region HTN (hypertension) Sacroiliitis COPD (chronic obstructive pulmonary disease) Asthma Allergic rhinitis Disc degeneration, lumbar Surgical History History of surgery History of appendectomy Hx of tonsillectomy Status post excision of lipoma History of tubal ligation Hx of excision of mass History of surgery History of laparoscopic cholecystectomy History of esophagogastroduodenoscopy (EGD) History of umbilical hernia repair History of incision and drainage Family History Family/Other Cervical cancer Family/Other Stomach cancer Social History Household Members: Spouse Household Members Other:: grandson Housing: House Do you presently have visiting nurse or other home services: No Alcohol intake: never Patient Tobacco Use Status: Former Tobacco user Tobacco use type: Cigarette Substance Use Type: Marijuana service: No Current occupational status: unemployed Sexual orientation: Straight/Heterosexual Gender identity: Female Review of Systems Const All systems reviewed & are unremarkable except as noted in HPI and below Physical Exam General: Appears afebrile. Alert and oriented. Mood and affect appropriate. Follows and participates in conversation appropriately. Respiratory effort is unlabored. No cough. O2 at 2l/min continuos. Able to transition from sit to stand unassisted. Ambulates with bilaterally normal heel strike and toe off. Resp Effort & Inspection: normal respiratory effort, able to speak in complete sentences, no cough, no respiratory distress and symmetric chest movement Extrem General: Yes capillary refill normal, Yes no clubbing, cyanosis or edema and Yes no calf tenderness Psych Appearance: grossly normal Mental Status: mental status grossly normal Speech and movement: Normal speech and movement present and Clear speech present Affect: normal affect Attitude: cooperative Thought process: Normal thought process present Thought content: Normal thought content present, suicidality (none), no hallucinations and No Depressive thoughts present Insight: Good insight present (Psych) Judgement: Good judgement present (Psych) Results Reviewed Results Reviewed: MRI LUMBAR SPINE WITHOUT CONTRAST EXAM DATE 05/07/2019 The marrow signal is within normal limits. Moderate disc space narrowing at L3-L4, severe loss of disc height L4-5 with endplate spurring mild endplate edema laterally on the right at L4-5. Mild rightward curvature of lumbar spine. No compression fractures. Trace anterior subluxation at L4-5. The paraspinal soft tissues appear normal. Bony pelvis is normal. Conus medullaris: Normal terminating at the level of L1. No level a spinal cord abnormalities. The cauda equina nerve roots are normal. Spinal levels: L1-L2: No disc pathology. No central canal stenosis or foraminal narrowing. L2-L3: Very mild disc bulge presents without central canal stenosis or foraminal encroachment. L3-L4: Moderate loss of disc height with large left foraminal disc extrusion! Severely compressing the exiting left L3 nerve root. Underlying mild disc bulge and mild facet arthropathy. No central canal stenosis. L4-5: Significant loss of disc height with broad-based disc bulge and right foraminal extraforaminal disc protrusion mildly distorting the exiting right L4 nerve root. Moderate facet arthropathy without central canal stenosis. L5-S1: Mild facet arthrosis no disc pathology: No central canal stenosis, or foraminal narrowing. XR SOFT TISSUE NECK 06/09/23 FINDINGS: Limited evaluation of the lower cervical spine secondary to patient positioning. No acute visible fracture or dislocation. Multilevel degenerative changes. Vertebral body heights and disc spaces are maintained. Prevertebral soft tissues unremarkable. Posterior elements are intact. Paraspinal soft tissues are unremarkable. Visualized portions of the upper chest are unremarkable. IMPRESSION: 1. Limited evaluation of the lower cervical spine secondary to patient positioning. 2. No acute visible fracture or dislocation. 3. Multilevel degenerative changes. CT/CT soft tissue neck w IV con 06/25/23 IMPRESSION: No cervical adenopathy or extra-mucosal soft tissue mass. Rightward curvature of the cervical spine with multilevel hypertrophic facet arthropathy. Mild amount of secretions in the tracheal airway which potentially would put the patient at risk for aspiration. Significant emphysematous changes in the lungs. Assessment & Plan Assessment & Plan (1) Varicose veins of both lower extremities: Code(s): I83.93 - Asymptomatic varicose veins of bilateral lower extremities Category: Medical (2) Opioid contract exists: Code(s): Z79.891 - shelter (current) use of opiate analgesic Category: Medical (3) Cervicalgia: Code(s): M54.2 - Cervicalgia Category: Medical (4) Disc degeneration, lumbar: Code(s): M51.36 - Other intervertebral disc degeneration, lumbar region Category: Medical (5) Spondylosis of lumbar region without myelopathy or radiculopathy: Code(s): M47.816 - Spondylosis without myelopathy or radiculopathy, lumbar region Category: Medical (6) Sacroiliitis: Code(s): M46.1 - Sacroiliitis, not elsewhere classified Category: Medical Plan Patient has shown accountability for her medication regimen and the pill count was accurate. Masspat was reviewed and without concerns. No obvious signs of diversion, abuse or misuse of the opioid medications. Patient reports adequate analgesia on current medication regime. Prescription sent for Oxycodone 5mg po TID prn with an advanced date of 01/03/24. Patient has Narcan script at home. She also takes pregabalin 150 mg BID prescribed by her PCP. Vascular Referral for further evaluation of varicose veins, left >right. Patient to follow-up in the office in one month for pill count, sooner if needed. Orders: Referrals Vascular Surgery Referral I83.93 - Asymptomatic varicose veins of bilateral lower extremities Medications: Refilled oxycodone Partial Fill upon patient request. 5 mg PO TID 30 days PRN 90 tabs 0RF pain M46.1 - Sacroiliitis, not elsewhere classified, M47.816 - Spondylosis without myelopathy or radiculopathy, lumbar region, M51.36 - Other intervertebral disc degeneration, lumbar region Coding Level of Care Code Est Pt Level 4 (19633) Complex EM visit Add On G2211 Diagnoses Varicose veins of both lower extremities I83.93 Opioid contract exists Z79.891 Cervicalgia M54.2 Disc degeneration, lumbar M51.36 Spondylosis of lumbar region without myelopathy or radiculopathy M47.816 Sacroiliitis M46.1
[2023-12-12 13:11] VITALS: BP 113/70; PULSE 78; O2SAT 96; BMI 22.5
== END 2023-12-12 13:16 | disposition home or self-care (01) ==
PROVIDERS: PCP Internal Medicine; Visit Provider Nurse Practitioner Family
DX: I83.93 Asymptomatic varicose veins of bilateral lower extremities (principal); Z79.891 Long term (current) use of opiate analgesic; M54.2 Cervicalgia; M51.36 Other intervertebral disc degeneration, lumbar region; M47.816 Spondylosis without myelopathy or radiculopathy, lumbar region; M46.1 Sacroiliitis, not elsewhere classified
CPT/HCPCS: 99214

== ENCOUNTER → 2023-12-12 12:56 | Outpatient (BNVA) | payer MEDICAID, SELFPAY | PROVIDERS: PCP Internal Medicine; Visit Provider Nurse Practitioner Family | DX: I83.93 Asymptomatic varicose veins of bilateral lower extremities (principal); M54.2 Cervicalgia; M51.36 Other intervertebral disc degeneration, lumbar region; M47.816 Spondylosis without myelopathy or radiculopathy, lumbar region; M46.1 Sacroiliitis, not elsewhere classified; Z51.81 Encounter for therapeutic drug level monitoring; Z79.891 Long term (current) use of opiate analgesic | CPT/HCPCS: 99212 ==

== ENCOUNTER 2023-12-22 12:02 | Outpatient (AMB) | payer MEDICAID, SELFPAY ==
--- NOTE | 2023-12-22 12:05 | A.OFFVIS_ITS ---
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 Recent ultrasound showed the following: The uterus is retroverted and retroflexed measuring 5.9 x 2.4 x 4.0 cm. The double wall endometrial thickness is 3 mm. The uterus is smooth in contour and has normal myometrial echogenicity. Two small subcentimeter fibroids are present which have decreased in size compared to prior with the largest measuring 4 x 5 x 4 mm in size. ADNEXA: Both ovaries are visualized. There is normal color flow to the adnexa. There is no ovarian torsion. There is no pelvic ascites or fluid collection. Right ovary measures 2.4 x 1.0 x 1.3 cm. Left ovary measures 2.4 x 1.1 x 1.5 cm. The patient has no pelvic pain or pressure vaginal bleeding [facility] Medical History Respiratory failure with hypoxia COPD exacerbation Pre-op examination History of OCD (obsessive compulsive disorder) History of panic attacks Anxiety and depression Radiculopathy, lumbar region HTN (hypertension) Sacroiliitis COPD (chronic obstructive pulmonary disease) Asthma Allergic rhinitis Disc degeneration, lumbar Surgical History History of surgery History of appendectomy Hx of tonsillectomy Status post excision of lipoma History of tubal ligation Hx of excision of mass History of surgery History of laparoscopic cholecystectomy History of esophagogastroduodenoscopy (EGD) History of umbilical hernia repair History of incision and drainage Family History Family/Other Cervical cancer Family/Other Stomach cancer Social History Household Members: Spouse Household Members Other:: grandson Housing: House Do you presently have visiting nurse or other home services: No Alcohol intake: never Patient Tobacco Use Status: Former Tobacco user Tobacco use type: Cigarette Substance Use Type: Marijuana service: No Current occupational status: unemployed Sexual orientation: Straight/Heterosexual Gender identity: Female Review of Systems Const All systems reviewed & are unremarkable except as noted in HPI and below Reports as per HPI and Reports no additional complaints GI Reports no additional complaints Reports no additional complaints Telehealth Telehealth Telehealth Platform: Telephone Location of provider rendering services: practice address Location of patient: address on file Patient Identification confirmed using: Name, : Yes Telehealth method: video Patient verbally consented to treatment: Yes Patient verbally consented to billing insurance company: Yes Patient informed of any privacy concerns related to visit: Yes Assessment & Plan Assessment & Plan (1) Uterine myoma: Code(s): D25.9 - Leiomyoma of uterus, unspecified Category: Medical Plan: Discussed with the patient the findings on pelvic ultrasound & the risk of myosarcoma; discussed with the patient the options of treatment including expectant management versus hysterectomy; the pros and cons, risks benefits of each approach were discussed with the patient including the fact that in cases of myosarcoma, surgical treatment can lead to early diagnosis and positively affects the prognosis; after further discussion, the patient decided to proceed with expectant management. Will repeat pelvic ultrasound periodically. Instructions given to patient to call in case any of the following occurs: pressure symptoms, abnormal uterine bleeding, pelvic pain; and to schedule a follow-up appointment . All questions answered, the patient verbalized understanding and agreed with the plan . I spent a total of 20 minutes reviewing the chart, talking to the patient via video and documenting in the medical record. Coding Level of Care Code Tele Est Pt Level 1 (39951) Diagnoses Uterine myoma D25.9
== END 2023-12-22 12:38 | disposition home or self-care (01) ==
LOC: HO.HWS 12:02
PROVIDERS: PCP Internal Medicine; Visit Provider Obstetrics & Gynecology
DX: D25.9 Leiomyoma of uterus, unspecified (principal)
CPT/HCPCS: 99211

== ENCOUNTER → 2023-12-22 12:02 | Outpatient (BNVA) | payer MEDICAID, SELFPAY | PROVIDERS: PCP Internal Medicine; Visit Provider Obstetrics & Gynecology ==

== ENCOUNTER 2024-01-09 12:58 | Outpatient (AMB) | payer MEDICAID, SELFPAY ==
--- NOTE | 2024-01-09 13:03 | A.OFFVIS_ITS ---
Vital Signs 01/09/24 13:08 Height 5 ft Weight 115 lb BMI 22.5 BP 104/55 L Blood Pressure Location Lt brachial Position Sitting Pulse 86 Pulse Source Pulse Oximeter Pulse Oximetry (%) 96 Oxygen Delivery Method Nasal Cannula Oxygen Flow Rate 2 Intake Visit Reasons: Pill Count Intake Note: Deysi comes in today for a pill count to oxycodone, patient should have 72 tablets and presents with 75 tablets which she last took today 01/09/24 at 8:30am. 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 She is supposed to have #72 pills in her possession and presents with #75 pills. This demonstrates a responsible attitude in regards to her opioid regimen. She reports resonable analgesia on her current regime and also takes pregabalin 150 mg BID, prescribed by her PCP. Pain is rated at 6/10 for lower back and SIJ pain generator and left lower extremity tenderness along left medial ankle and varicose veins. She has pending Vascular evaluation in February. Patient denies any fever, chills, weight loss, abdominal or groin pain, constipation, urinary retention, sedation, nausea, vomiting, constipation, sedation, dizziness, or urinary retention. Patient is O2 dependent at 2L/min at rest and 3L/min w/ambulation continuous use for COPD. [facility] Medical History Respiratory failure with hypoxia COPD exacerbation Pre-op examination History of OCD (obsessive compulsive disorder) History of panic attacks Anxiety and depression Radiculopathy, lumbar region HTN (hypertension) Sacroiliitis COPD (chronic obstructive pulmonary disease) Asthma Allergic rhinitis Disc degeneration, lumbar Surgical History History of surgery History of appendectomy Hx of tonsillectomy Status post excision of lipoma History of tubal ligation Hx of excision of mass History of surgery History of laparoscopic cholecystectomy History of esophagogastroduodenoscopy (EGD) History of umbilical hernia repair History of incision and drainage Family History Family/Other Cervical cancer Family/Other Stomach cancer Social History Household Members: Spouse Household Members Other:: grandson Housing: House Do you presently have visiting nurse or other home services: No Alcohol intake: never Patient Tobacco Use Status: Former Tobacco user Tobacco use type: Cigarette Substance Use Type: Marijuana service: No Current occupational status: unemployed Sexual orientation: Straight/Heterosexual Gender identity: Female Review of Systems Const All systems reviewed & are unremarkable except as noted in HPI and below Physical Exam Vital Signs: Last Vital Signs Pulse 86 01/09/24 13:08 BP 104/55 L 01/09/24 13:08 Pulse Ox 96 01/09/24 13:08 Oxygen Delivery Method Nasal Cannula 01/09/24 13:08 Oxygen Flow Rate 2 01/09/24 13:08 BMI result Body Mass Index 22.5 General: Appears afebrile. Alert and oriented. Mood and affect appropriate. Follows and participates in conversation appropriately. Respiratory effort is unlabored. No cough. O2 at 2l/min continuos. Able to transition from sit to stand unassisted. Ambulates with antalgic gait, mild limping. Resp Effort & Inspection: normal respiratory effort, able to speak in complete sentences, no cough, no respiratory distress and symmetric chest movement Extrem General: Yes capillary refill normal, Yes no clubbing, cyanosis or edema and Yes no calf tenderness Psych Appearance: grossly normal and well kempt Mental Status: mental status grossly normal Speech and movement: Normal speech and movement present Affect: normal affect Attitude: cooperative Thought process: Normal thought process present Thought content: Normal thought content present, suicidality (none), no arleen lucinations and Depressive thoughts present Insight: Good insight present (Psych) Judgement: Good judgement present (Psych) Results Reviewed Results Reviewed: MRI LUMBAR SPINE WITHOUT CONTRAST EXAM DATE 05/07/2019 The marrow signal is within normal limits. Moderate disc space narrowing at L3- L4, severe loss of disc height L4-5 with endplate spurring mild endplate edema laterally on the right at L4-5. Mild rightward curvature of lumbar spine. No compression fractures. Trace anterior subluxation at L4-5. The paraspinal soft tissues appear normal. Bony pelvis is normal. Conus medullaris: Normal terminating at the level of L1. No level a spinal cord abnormalities. The cauda equina nerve roots are normal. Spinal levels: L1-L2: No disc pathology. No central canal stenosis or foraminal narrowing. L2-L3: Very mild disc bulge presents without central canal stenosis or foraminal encroachment. L3-L4: Moderate loss of disc height with large left foraminal disc extrusion! Severely compressing the exiting left L3 nerve root. Underlying mild disc bulge and mild facet arthropathy. No central canal stenosis. L4-5: Significant loss of disc height with broad-based disc bulge and right foraminal extraforaminal disc protrusion mildly distorting the exiting right L4 nerve root. Moderate facet arthropathy without central canal stenosis. L5-S1: Mild facet arthrosis no disc pathology: No central canal stenosis, or foraminal narrowing. XR SOFT TISSUE NECK 06/09/23 FINDINGS: Limited evaluation of the lower cervical spine secondary to patient positioning. No acute visible fracture or dislocation. Multilevel degenerative changes. Vertebral body heights and disc spaces are maintained. Prevertebral soft tissues unremarkable. Posterior elements are intact. Paraspinal soft tissues are unremarkable. Visualized portions of the upper chest are unremarkable. IMPRESSION: 1. Limited evaluation of the lower cervical spine secondary to patient positioning. 2. No acute visible fracture or dislocation. 3. Multilevel degenerative changes. CT/CT soft tissue neck w IV con 06/25/23 IMPRESSION: No cervical adenopathy or extra-mucosal soft tissue mass. Rightward curvature of the cervical spine with multilevel hypertrophic facet arthropathy. Mild amount of secretions in the tracheal airway which potentially would put the patient at risk for aspiration. Significant emphysematous changes in the lungs. Assessment & Plan Assessment & Plan (1) Varicose veins of both lower extremities: Code(s): I83.93 - Asymptomatic varicose veins of bilateral lower extremities Category: Medical (2) Opioid contract exists: Code(s): Z79.891 - [facility] (current) use of opiate analgesic Category: Medical (3) Cervicalgia: Code(s): M54.2 - Cervicalgia Category: Medical (4) Disc degeneration, lumbar: Code(s): M51.36 - Other intervertebral disc degeneration, lumbar region Category: Medical (5) Spondylosis of lumbar region without myelopathy or radiculopathy: Code(s): M47.816 - Spondylosis without myelopathy or radiculopathy, lumbar region Category: Medical (6) Sacroiliitis: Code(s): M46.1 - Sacroiliitis, not elsewhere classified Category: Medical Plan Patient has shown accountability for her medication regimen and the pill count was accurate. Masspat was reviewed and without concerns. No obvious signs of diversion, abuse or misuse of the opioid medications. Patient reports adequate analgesia on current medication regime. Prescription sent for Oxycodone 5mg po TID prn with an advanced date of 02/02/24. Patient has Narcan script at home. She also takes pregabalin 150 mg BID prescribed by her PCP. Pending Vascular referral for further evaluation of varicose veins. This is scheduled on 03/18/[address] Parks. Patient to follow-up in the office in one month for pill count, sooner if needed. Medications: Refilled oxycodone Partial Fill upon patient request. 5 mg PO TID 30 days PRN 90 tabs 0RF pain M46.1 - Sacroiliitis, not elsewhere classified, M47.816 - Spondylosis without myelopathy or radiculopathy, lumbar region, M51.36 - Other intervertebral disc degeneration, lumbar region Coding Level of Care Code Est Pt Level 4 (84728) Complex EM visit Add On G2211 Diagnoses Varicose veins of both lower extremities I83.93 Opioid contract exists Z79.891 Cervicalgia M54.2 Disc degeneration, lumbar M51.36 Spondylosis of lumbar region without myelopathy or radiculopathy M47.816 Sacroiliitis M46.1
[2024-01-09 13:08] VITALS: BP 104/55; PULSE 86; O2SAT 96; BMI 22.5
== END 2024-01-09 13:14 | disposition home or self-care (01) ==
PROVIDERS: PCP Internal Medicine; Visit Provider Nurse Practitioner Family
DX: I83.93 Asymptomatic varicose veins of bilateral lower extremities (principal); Z79.891 Long term (current) use of opiate analgesic; M54.2 Cervicalgia; M51.369 Other intervertebral disc degeneration, lumbar region without mention of lumbar back pain or lower extremity pain; M47.816 Spondylosis without myelopathy or radiculopathy, lumbar region; M46.1 Sacroiliitis, not elsewhere classified
CPT/HCPCS: 99214

== ENCOUNTER → 2024-01-09 12:58 | Outpatient (BNVA) | payer MEDICAID, SELFPAY | PROVIDERS: PCP Internal Medicine; Visit Provider Nurse Practitioner Family | DX: M54.2 Cervicalgia (principal); M51.369 Other intervertebral disc degeneration, lumbar region without mention of lumbar back pain or lower extremity pain; I83.93 Asymptomatic varicose veins of bilateral lower extremities; M47.816 Spondylosis without myelopathy or radiculopathy, lumbar region; M46.1 Sacroiliitis, not elsewhere classified; Z51.81 Encounter for therapeutic drug level monitoring; Z79.891 Long term (current) use of opiate analgesic | CPT/HCPCS: 99212 ==

== ENCOUNTER 2024-02-06 13:13 | Outpatient (AMB) | payer MEDICAID, SELFPAY ==
--- NOTE | 2024-02-06 13:14 | A.OFFVIS_ITS ---
Vital Signs 02/06/24 13:22 Height 5 ft Weight 117 lb BMI 22.8 BP 130/68 Blood Pressure Location Lt brachial Position Sitting Pulse 82 Pulse Source Pulse Oximeter Pulse Oximetry (%) 96 Oxygen Delivery Method Room Air Oxygen Flow Rate 2 Intake Visit Reasons: PILL COUNT Intake Note: Deysi comes in today for a pill count to oxycodone, patient should have 81 tablets and presents with 85 tablets which she last took today 02/06/24 at 12:30pm. 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 She is supposed to have #81 pills in her possession and presents with #85 pills. This demonstrates a responsible attitude in regards to her opioid regimen. She reports adequate analgesia on her current regime. Patient also takes pregabalin 150 mg BID, prescribed by her PCP. Pain is rated at 7/10 for lower back and SIJ pain with activities and cold weather. She also has pending Vascular evaluation in February for lower extremity pain related to varicose veins. Patient denies any fever, chills, weight loss, abdominal or groin pain, co nstipation, urinary retention, sedation, nausea, vomiting, constipation, sedation, dizziness, or urinary retention. Patient is O2 dependent at 2L/min at rest and 3L/min w/ambulation continuous use for COPD. [facility] Medical History Respiratory failure with hypoxia COPD exacerbation Pre-op examination History of OCD (obsessive compulsive disorder) History of panic attacks Anxiety and depression Radiculopathy, lumbar region HTN (hypertension) Sacroiliitis COPD (chronic obstructive pulmonary disease) Asthma Allergic rhinitis Disc degeneration, lumbar Surgical History History of surgery History of appendectomy Hx of tonsillectomy Status post excision of lipoma History of tubal ligation Hx of excision of mass History of surgery History of laparoscopic cholecystectomy History of esophagogastroduodenoscopy (EGD) History of umbilical hernia repair History of incision and drainage Family History Family/Other Cervical cancer Family/Other Stomach cancer Social History Household Members: Spouse Household Members Other:: grandson Housing: House Do you presently have visiting nurse or other home services: No Alcohol intake: never Patient Tobacco Use Status: Former Tobacco user Tobacco use type: Cigarette Substance Use Type: Marijuana service: No Current occupational status: unemployed Sexual orientation: Straight/Heterosexual Gender identity: Female Review of Systems Const All systems reviewed & are unremarkable except as noted in HPI and below Physical Exam Vital Signs: Last Vital Signs Pulse 82 02/06/24 13:22 BP 130/68 02/06/24 13:22 Pulse Ox 96 02/06/24 13:22 Oxygen Delivery Method Room Air 02/06/24 13:22 Oxygen Flow Rate 2 02/06/24 13:22 BMI result Body Mass Index 22.8 General: Appears afebrile. No acute distress. Alert and oriented. Mood and affect appropriate. Pleasant. Follows and participates in conversation appropriately. Respiratory effort is unlabored. No cough. O2 at 3L/min continuos. Able to transition from sit to stand unassisted. Ambulates with antalgic gait, mild limping. Resp Effort & Inspection: normal respiratory effort, able to speak in complete sentences, no cough, not labored and no stridor Back/Spine/Pelvis Thoracic/Lumbar Spine: pain with thoraco-lumbar ROM, thoraco-lumbar ROM limited, No thoracic spinal tenderness and lumbar spinal tenderness at L4 and at L5 Sacroiliac joints: bilaterally tender to palpation Extrem General: Yes capillary refill normal, Yes no clubbing, cyanosis or edema and Yes no calf tenderness Psych Appearance: grossly normal and well kempt Mental Status: mental status grossly normal Speech and movement: Normal speech and movement present Affect: normal affect Attitude: cooperative Thought process: Normal thought process present Thought content: Normal thought content present, suicidality (none), no hallucinations and Depressive thoughts present Insight: Good insight present (Psych) Judgement: Good judgement present (Psych) Results Reviewed Results Reviewed: MRI LUMBAR SPINE WITHOUT CONTRAST EXAM DATE 05/07/2019 The marrow signal is within normal limits. Moderate disc space narrowing at L3- L4, severe loss of disc height L4-5 with endplate spurring mild endplate edema laterally on the right at L4-5. Mild rightward curvature of lumbar spine. No compression fractures. Trace anterior subluxation at L4-5. The paraspinal soft tissues appear normal. Bony pelvis is normal. Conus medullaris: Normal terminating at the level of L1. No level a spinal cord abnormalities. The cauda equina nerve roots are normal. Spinal levels: L1-L2: No disc pathology. No central canal stenosis or foraminal narrowing. L2-L3: Very mild disc bulge presents without central canal stenosis or foraminal encroachment. L3-L4: Moderate loss of disc height with large left foraminal disc extrusion! Severely compressing the exiting left L3 nerve root. Underlying mild disc bulge and mild facet arthropathy. No central canal stenosis. L4-5: Significant loss of disc height with broad-based disc bulge and right foraminal extraforaminal disc protrusion mildly distorting the exiting right L4 nerve root. Moderate facet arthropathy without central canal stenosis. L5-S1: Mild facet arthrosis no disc pathology: No central canal stenosis, or foraminal narrowing. XR SOFT TISSUE NECK 06/09/23 FINDINGS: Limited evaluation of the lower cervical spine secondary to patient positioning. No acute visible fracture or dislocation. Multilevel degenerative changes. Vertebral body heights and disc spaces are maintained. Prevertebral soft tissues unremarkable. Posterior elements are intact. Paraspinal soft tissues are unremarkable. Visualized portions of the upper chest are unremarkable. IMPRESSION: 1. Limited evaluation of the lower cervical spine secondary to patient positioning. 2. No acute visible fracture or dislocation. 3. Multilevel degenerative changes. CT/CT soft tissue neck w IV con 06/25/23 IMPRESSION: No cervical adenopathy or extra-mucosal soft tissue mass. Rightward curvature of the cervical spine with multilevel hypertrophic facet arthropathy. Mild amount of secretions in the tracheal airway which potentially would put the patient at risk for aspiration. Significant emphysematous changes in the lungs. Assessment & Plan Assessment & Plan (1) Opioid contract exists: Code(s): Z79.891 - [facility] (current) use of opiate analgesic Category: Medical (2) Cervicalgia: Code(s): M54.2 - Cervicalgia Category: Medical (3) Disc degeneration, lumbar: Code(s): M51.36 - Other intervertebral disc degeneration, lumbar region Category: Medical (4) Spondylosis of lumbar region without myelopathy or radiculopathy: Code(s): M47.816 - Spondylosis without myelopathy or radiculopathy, lumbar region Category: Medical (5) Sacroiliitis: Code(s): M46.1 - Sacroiliitis, not elsewhere classified Category: Medical Plan Patient has shown accountability for her medication regimen and the pill count was accurate. Masspat was reviewed and without concerns. No obvious signs of diversion, abuse or misuse of the opioid medications. Patient reports adequate analgesia on current medication regime. Prescription sent for Oxycodone 5mg po TID prn with an advanced date of 03/04/24. Patient has Narcan script at home. She also takes pregabalin 150 mg BID prescribed by her PCP. Pending Vascular referral for further evaluation of varicose veins. This is scheduled on 03/18/[address] Parks. Patient to follow-up in the office in one month for pill count, sooner if needed. Medications: Refilled oxycodone Partial Fill upon patient request. 5 mg PO TID 30 days PRN 90 tabs 0RF pain M46.1 - Sacroiliitis, not elsewhere classified, M47.816 - Spondylosis without myelopathy or radiculopathy, lumbar region, M51.36 - Other intervertebral disc degeneration, lumbar region Coding Level of Care Code Est Pt Level 4 (79295) Complex EM visit Add On G2211 Diagnoses Opioid contract exists Z79.891 Cervicalgia M54.2 Disc degeneration, lumbar M51.36 Spondylosis of lumbar region without myelopathy or radiculopathy M47.816 Sacroiliitis M46.1
[2024-02-06 13:22] VITALS: BP 130/68; PULSE 82; O2SAT 96; BMI 22.8
== END 2024-02-06 13:29 | disposition home or self-care (01) ==
PROVIDERS: PCP Internal Medicine; Visit Provider Nurse Practitioner Family
DX: Z79.891 Long term (current) use of opiate analgesic (principal); M54.2 Cervicalgia; M51.369 Other intervertebral disc degeneration, lumbar region without mention of lumbar back pain or lower extremity pain; M47.816 Spondylosis without myelopathy or radiculopathy, lumbar region; M46.1 Sacroiliitis, not elsewhere classified
CPT/HCPCS: 99214

== ENCOUNTER → 2024-02-06 13:13 | Outpatient (BNVA) | payer MEDICAID, SELFPAY | PROVIDERS: PCP Internal Medicine; Visit Provider Nurse Practitioner Family | DX: Z51.81 Encounter for therapeutic drug level monitoring (principal); M54.2 Cervicalgia; M51.360 Other intervertebral disc degeneration, lumbar region with discogenic back pain only; M47.816 Spondylosis without myelopathy or radiculopathy, lumbar region; M46.1 Sacroiliitis, not elsewhere classified; Z79.891 Long term (current) use of opiate analgesic | CPT/HCPCS: 99212 ==

== ENCOUNTER 2024-03-01 11:14 | Outpatient (AMB) | payer MEDICAID, SELFPAY ==
[2024-03-01 11:20] VITALS: BP 132/70; PULSE 86; O2SAT 96; BMI 22.8
--- NOTE | 2024-03-01 11:20 | A.OFFVIS_ITS ---
Vital Signs 03/01/24 11:20 Height 5 ft Weight 116 lb 13.52 oz BMI 22.8 BP 132/70 Blood Pressure Location Lt brachial Position Sitting Pulse 86 Pulse Source Pulse Oximeter Pulse Oximetry (%) 96 Oxygen Delivery Method Room Air Intake Visit Reasons: COPD Intake Note: pt is here for follow up and feels okay, needs new nebulizer sent to [facility] Required: No Allergies Penicillins [PENICILLINS] Allergy (Severe, Verified 03/01/24 11:28) RASH Medication List - Last Reconciled 03/01/24 by Erickson Mahtews MD acetaminophen (Tylenol Extra Strength) 500 mg PO Q6H PRN albuterol sulfate 2.5 mg (3 mL) inhalation Q4-6H PRN albuterol sulfate 90 mcg/actuation (Ventolin HFA) 2 puffs inhalation QID PRN benzonatate 200 mg PO TID PRN budesonide-formoterol 160-4.5 mcg/actuation (Symbicort) 2 puffs inhalation BID cholecalciferol (vitamin D3) 50 mcg PO QAM esomeprazole magnesium 40 mg PO QAM ibuprofen 400 mg PO Q6H PRN ipratropium-albuterol 0.5 mg-3 mg(2.5 mg base)/3 mL 3 mL inhalation Q6-8H PRN lidocaine 5% 1 appl topical BID PRN lisinopril 1 tab PO DAILY mirtazapine 45 mg PO BEDTIME montelukast 10 mg PO BEDTIME naloxone 4 mg/actuation (Narcan) 4 mg intranasal Q2M PRN ondansetron HCl 4 mg PO BID-TID PRN 14 days oxycodone 5 mg PO TID PRN 30 days prednisone 5 mg PO QAM pregabalin 150 mg PO BID quetiapine (Seroquel) 100 mg PO BEDTIME quetiapine 25 mg PO DAILY PRN tiotropium bromide 2.5 mcg/actuation (Spiriva Respimat) 2 puffs inhalation QAM Do you need a note to return to daycare/school/sports/work: No HPI HPI COPD: Details: This 53 years old female of a thin build with longstanding history of bronchial asthma/COPD, is on maximum treatment. She claims that she has been stable without any. Acute exacerbation Uses all her treatment regularly, including Symbicort, Spiriva Respimat and DuoNeb updrafts. Also she is on O2 2 L/minute 24 hours a day. DOES NOT SMOKE AT ALL. She has had no acute exacerbation, she does get short of breath on walking up stairs or outdoors, She is very sad because her daughter who had severe bronchial asthma recently. [facility] Medical History (Updated 03/01/24 @ 11:43 by Erickson Mathews MD) Current non-smoker but past smoking history unknown Respiratory failure with hypoxia COPD exacerbation Pre-op examination History of OCD (obsessive compulsive disorder) History of panic attacks Anxiety and depression Radiculopathy, lumbar region HTN (hypertension) Sacroiliitis COPD (chronic obstructive pulmonary disease) Asthma Allergic rhinitis Disc degeneration, lumbar Surgical History History of surgery History of appendectomy Hx of tonsillectomy Status post excision of lipoma History of tubal ligation Hx of excision of mass History of surgery History of laparoscopic cholecystectomy History of esophagogastroduodenoscopy (EGD) History of umbilical hernia repair History of incision and drainage Family History Family/Other Cervical cancer Family/Other Stomach cancer Social History Household Members: Spouse Household Members Other:: grandson Housing: House Do you presently have visiting nurse or other home services: No Alcohol intake: never Patient Tobacco Use Status: Former Tobacco user Tobacco use type: Cigarette Substance Use Type: Marijuana service: No Current occupational status: unemployed Sexual orientation: Straight/Heterosexual Gender identity: Female Review of Systems Const All systems reviewed & are unremarkable except as noted in HPI and below Eyes Reports no additional complaints ENT Reports nasal congestion and Reports nasal discharge (OFF AND ON) Card Denies chest pain, Denies irregular heart rhythm and Denies leg edema Resp Reports as per HPI GI Reports no additional complaints Reports no additional complaints Musc Reports back pain and Reports arthralgias Skin/Breast Reports system reviewed and no additional complaints, except as documented Neuro Reports no additional complaints Psych Reports depression (Mild) Endo Reports no additional complaints Physical Exam Vital Signs: Last Vital Signs Pulse 86 03/01/24 11:20 BP 132/70 12/02/24 11:20 Pulse Ox 96 03/01/24 11:20 Oxygen Delivery Method Room Air 03/01/24 11:20 BMI result Body Mass Index 22.8 Const General: comfortable, no acute distress, alert and awake Orientation/consciousness: patient oriented x3 HEENT Head: Yes normal to inspection General nose exam: No nasal polyps present, No nasal discharge present and Other nasal findings present (Mild bilateral nasal congestion) Face and sinus: Yes sinuses nontender Mouth: oropharynx normal Throat: Yes posterior oropharynx normal Eyes General: appearance normal, both eyes and all related structures Neck Neck: Yes normal visual inspection, Yes no lymphadenopathy, Yes trachea midline and Yes no JVD Thyroid: Thyroid normal Chest Chest palpation & inspection: normal inspection of the chest, normal palpation of entire chest wall and no tenderness Resp Other: Percussion note is HYPER RESONANT , she does have good breath sounds on both sides but quite distant with prolonged expiratory phase. No audible wheezes or rhonchi heard. Cardio Palpation: normal PMI Rate: regular rate Rhythm: regular rhythm Heart sounds: no gallops and no murmurs Peripheral pulses: Peripheral pulses 2+ throughout GI Palpation (GI): Soft to palpation, nontender, No hepatosplenomegaly present and no masses Auscultation: normal bowel sounds Back/Spine/Pelvis Thoracic/Lumbar Spine: thoracic and lumbar spine normal to inspection and thoraco-lumbar ROM limited Skin General skin exam: no rashes or lesions noted Neuro General: patient oriented x3 and no focal motor deficits Cranial nerves: Yes CN's II-XII intact bilaterally Extrem General: Yes normal to inspection, Yes no clubbing, cyanosis or edema and Yes no calf tenderness Psych Appearance: grossly normal and well kempt Speech and movement: Normal speech and movement present Assessment & Plan Assessment & Plan (1) COPD (chronic obstructive pulmonary disease): Comment: ASTHMA/COPD SEVERE. COPD IS DUE TO HER CHRONIC [place]ONG BRONCHIAL ASTHMA AND PAST HISTORY OF SMOKING. CLINICALLY DOING BETTER AND STABLE . Code(s): J44.9 - Chronic obstructive pulmonary disease, unspecified Category: Medical Qualifiers: COPD type: COPD with acute exacerbation Qualified Code(s): J44.1 - Chronic obstructive pulmonary disease with (acute) exacerbation Plan: Reviewed all the meds with her. Advised to continue : Symbicort 160-4.52 puffs b.i.d.. Spiriva Respimat 2.5 mg 2 inhalations daily Ipratropium-albuterol solution in the nebulizer t.i.d.. Prednisone 5 mg daily. It should be noted that she is continued on small dose of prednisone because of the severity of her symptoms. Without using prednisone she is prone to get recurrent acute exacerbations. (2) Asthma: Comment: SHE HAS LIFELONG HISTORY OF BRONCHIAL ASTHMA, WHICH HAS NOW PHASED INTO CHRONIC OBSTRUCTIVE PULMONARY DISEASE. HER ASTHMA IS SECONDARY TO ENVIRONMENTAL ALLERGIES. SINCE SHE MOVED INTO AN APARTMENT WITH NO CARPETS AND HAS LESS DUST EXPOSURE, SHE REPORTS IMPROVEMENT IN SYMPTOMS. Code(s): J45.909 - Unspecified asthma, uncomplicated Category: Medical Plan: As under COPD (3) Allergic rhinitis: Comment: SHE HAS CHRONIC, YEAR ROUND ALLERGIC RHINITIS. CURRENTLY IT IS UNDER CONTROL WITH HER MEDICATION REGIMEN. Code(s): J30.9 - Allergic rhinitis, unspecified Category: Medical Plan: Montelukast 10 mg daily (4) Respiratory failure with hypoxia: Comment: She was hypoxemic with minimal exertion. Has been started on O2 therapy. Feels stronger and better. USING O2 2 L/MINUTE 24 HOURS A DAY. HOWEVER WHEN RESTING AT HOME SHE COMES OF OXYGEN . FOR SHORT INTERVALS Code(s): J96.91 - Respiratory failure, unspecified with hypoxia Category: Medical Plan: Continue O2 as ordered. May take short intervals without O2 during daytime (5) Current non-smoker but past smoking history unknown: Comment: Patient is in the annual screening program. Code(s): Z78.9 - Other specified health status Category: Social Hx Plan: Again stressed that she can not go back to smoking Coding Level of Care Code Est Pt Level 4 (80884) Diagnoses COPD (chronic obstructive pulmonary disease) J44.1 COPD type: COPD with acute exacerbation Asthma J45.909 Allergic rhinitis J30.9 Respiratory failure with hypoxia J96.91 Current non-smoker but past smoking history unknown Z78.9
== END 2024-03-01 11:39 | disposition home or self-care (01) ==
PROVIDERS: PCP Internal Medicine; Visit Provider Internal Medicine
DX: J44.1 Chronic obstructive pulmonary disease with (acute) exacerbation (principal); J45.909 Unspecified asthma, uncomplicated; J30.9 Allergic rhinitis, unspecified; J96.91 Respiratory failure, unspecified with hypoxia; Z78.9 Other specified health status
CPT/HCPCS: 99214

== ENCOUNTER → 2024-03-01 11:14 | Outpatient (BNVA) | payer MEDICAID, SELFPAY | PROVIDERS: PCP Internal Medicine; Visit Provider Internal Medicine | DX: J44.1 Chronic obstructive pulmonary disease with (acute) exacerbation (principal); J30.9 Allergic rhinitis, unspecified; J96.91 Respiratory failure, unspecified with hypoxia; Z78.9 Other specified health status; Z99.81 Dependence on supplemental oxygen; Z79.899 Other long term (current) drug therapy | CPT/HCPCS: 99212 ==

== ENCOUNTER 2024-03-30 13:44 | Outpatient (AMB) | payer MEDICAID, SELFPAY ==
--- NOTE | 2024-03-30 13:56 | A.OFFVIS_ITS ---
Intake Visit Reasons: [facility] Intake Note: New patient presents from pain management. States she has what feels like needles in her left foot. Foot feels numb at times. No other complaints. Accompanied by: Significant Other Allergies Penicillins [PENICILLINS] Allergy (Severe, Verified 03/30/24 13:58) RASH HPI HPI [facility]: Details: Deysi, a pleasant 53-year-old female patient, is presenting today on a referral from pain management for left foot numbness and pain. She does endorse some leg cramping and fatigue bilaterally. Complaints include pain, slight swelling of lower extremities, cramping, fatigue, and heaviness of the lower extremities. It has been affecting their daily activities including walking, standing, and physical activity. It is noted more so in left leg. She does have a lengthy history of low back pain and is working with pain management for pain control. Patient denies any previous venous surgery or injections. Patient denies any history of DVT/ PE. Patient denies any history of phlebitis. Trial of compression includes - none They now present for vascular evaluation regarding their varicose veins. [facility] Medical History (Updated 03/30/24 @ 14:05 by Anika Dennis PA-C) Current non-smoker but past smoking history unknown Respiratory failure with hypoxia COPD exacerbation Pre-op examination History of OCD (obsessive compulsive disorder) History of panic attacks Anxiety and depression Radiculopathy, lumbar region HTN (hypertension) Sacroiliitis COPD (chronic obstructive pulmonary disease) Asthma Allergic rhinitis Disc degeneration, lumbar Surgical History History of surgery History of appendectomy Hx of tonsillectomy Status post excision of lipoma History of tubal ligation Hx of excision of mass History of surgery History of laparoscopic cholecystectomy History of esophagogastroduodenoscopy (EGD) History of umbilical hernia repair History of incision and drainage Family History Family/Other Cervical cancer Family/Other Stomach cancer Social History Household Members: Spouse Household Members Other:: grandson Housing: House Do you presently have visiting nurse or other home services: No Alcohol intake: never Patient Tobacco Use Status: Former Tobacco user Tobacco use type: Cigarette Substance Use Type: Marijuana service: No Current occupational status: unemployed Sexual orientation: Straight/Heterosexual Gender identity: Female Review of Systems Const Reports as per HPI and Denies weakness ENT Reports Normal hearing present and Denies dizziness Card Reports as per HPI, Denies chest pain, Denies chest pain at rest, Denies chest pain with activity, Denies dyspnea and Denies dyspnea on exertion Resp Reports as per HPI, Denies cough, Denies dyspnea and Denies dyspnea on exertion GI Reports as per HPI, Denies abdominal pain, Denies nausea and Denies vomiting Musc Denies numbness Skin/Breast Reports as per HPI, Denies erythema and Denies wounds Neuro Reports Normal hearing present, Denies dizziness, Denies numbness, Denies Sensory deficit (Neuro) and Denies weakness Psych Reports no additional complaints Endo Reports no additional complaints Physical Exam Const General: healthy appearing and no acute distress Orientation/consciousness: patient oriented x3 HEENT Head: Yes normal to inspection Ears: hearing grossly normal bilaterally Mouth: Normal oral and palatal mucosa present Resp Effort & Inspection: normal respiratory effort and able to speak in complete sentences Auscultation: clear to auscultation bilaterally Cardio Jugular venous distension: no JVD Rate: regular rate Rhythm: regular rhythm Heart sounds: S1 normal heart sound present and S2 normal heart sound present Bruits: no abdominal aortic bruits, no carotid bruits, no femoral bruits and no renal bruits Peripheral pulses: Peripheral pulses 2+ throughout GI Inspection: Yes normal to inspection Palpation (GI): No Abdominal aortic bruit present Skin General skin exam: no rashes or lesions noted Wounds: no wounds Hair: normal Neuro General: patient oriented x3 Cranial nerves: Yes Normal hearing present Cognition (Neuro): normal cognition Gait exam (Neuro): Normal gait present Motor exam (neuro): 5/5 motor strength present throughout Sensory Exam: No Sensory deficit (Neuro) Extrem Other: Bilateral lower extremities: No tortuosities noted. Slight discoloration noted bilaterally around the ankles. No edema noted. CEAP: C - 4 E - primary A - superficial P - reflux General: Yes normal to inspection, Yes full ROM, Yes capillary refill normal and Yes normal gait Assessment & Plan Assessment & Plan (1) Varicose veins of both lower extremities with inflammation: Code(s): I83.11 - Varicose veins of right lower extremity with inflammation; I83.12 - Varicose veins of left lower extremity with inflammation Category: Medical Plan: Deysi is presenting today on a referral from pain management for foot numbness along with leg cramps and fatigue. Patient states feeling that really helps her is heat. In short, the patient has evidence of venous insufficiency. I have discussed the pathophysiology with the patient. In addition I have provided informational material regarding venous disease to the patient. We have discussed conservative measures including compression, elevation, and exercise. I have also provided a handout regarding appropriate use of compression sto ckings and where to purchase good compression stockings as well. I have taken the liberty of ordering venous insufficiency testing with the patient. They will follow up with me after testing. The patient had an opportunity to ask questions regarding the treatment plan. All questions were answered. Imaging studies, laboratory studies and physical exam results were discussed and reviewed in detail. No major barriers to understanding were identified. The patient expressed understanding and agreement with the above treatment plan. The patient is aware they should contact our office by phone for worsening of the current condition or the appearance of new symptoms. Thank you for allowing me to participate in the vascular care of this patient. If you have any questions or concerns regarding the treatment for the above condition please do not hesitate to contact me. The office telephone contact is [phone]. This note is constructed using voice recognition software. While every effort has been made to ensure accuracy, hand ii thermal cutter errors may have been included. Thank you for allowing me to participate in the care of your patient. Yours sincerely, JAYNE Patrick Orders: Orders US venous duplex LE BI 1 Week I83.11 - Varicose veins of right lower extremity with inflammation, I83.12 - Varicose veins of left lower extremity with inflammation Coding Level of Care Code New Pt Level 4 (59237) Diagnoses Varicose veins of both lower extremities with inflammation I83.11; I83.12
== END 2024-03-30 14:05 | disposition home or self-care (01) ==
PROVIDERS: PCP Internal Medicine; Visit Provider Physician Assistant Surgical
DX: I83.11 Varicose veins of right lower extremity with inflammation (principal); I83.12 Varicose veins of left lower extremity with inflammation
CPT/HCPCS: 99204

== ENCOUNTER → 2024-03-30 13:44 | Outpatient (BNVA) | payer MEDICAID, SELFPAY | PROVIDERS: PCP Internal Medicine; Visit Provider Physician Assistant Surgical | DX: I83.11 Varicose veins of right lower extremity with inflammation (principal); I83.12 Varicose veins of left lower extremity with inflammation | CPT/HCPCS: 99212 ==

== ENCOUNTER 2024-04-04 00:47 | Emergency (ER) | payer MEDICAID, SELFPAY ==
--- NOTE | 2024-04-04 | ECG_ITS ---
Test Reason : SOB Blood Pressure : / mmHG Vent. Rate : 097 BPM Atrial Rate : 097 BPM P-R Int : 130 ms QRS Dur : 080 ms QT Int : 356 ms P-R-T Axes : 080 055 088 degrees QTc Int : 452 ms Normal sinus rhythm Nonspecific ST and T wave abnormality Abnormal ECG When compared with ECG of 17-JAN-2023 00:35, Vent. rate has decreased BY [address] no longer depressed in Inferior leads T wave inversion no longer evident in Inferior leads T wave inversion no longer evident in Anterolateral leads Referred By: Generic ED Physician Electronically Signed By:SHANITA HAIRSTON MD
--- NOTE | ~2024-04-04 | XR_ITS ---
CLINICAL HISTORY: sob 1 view chest x-ray Comparison: CR/SR - XR CHEST 1V - 01/16/23 23:20 EDT Findings: Ill-defined opacity in the right lung base with partial obscuration of the right heart border. Left lung is clear. Large lung volumes with hyperlucent apices suggesting emphysema. Heart size is normal. No acute fracture. IMPRESSION: 1. Lower right lung pneumonia. This document has been electronically signed by: Nathan Mccullough MD on 04/04/2024 02:05:16
--- NOTE | 2024-04-04 00:49 | ED.GENADULT ---
HPI - General Adult General Chief complaint: Dyspnea Stated complaint: ASTHMA EXACERBATION Source: patient and EMS Mode of arrival: EMS Limitations: no limitations History of Present Illness ED Provider: Dr. Lillie Genao HPI narrative: Patient comes to the emergency room complaining of an asthma exacerbation. Patient states that she also has history of COPD. Patient is started having sudden onset of wheezing and shortness of breath earlier today. Patient give her sudden neb treatment without any relief. Patient called 911. EMS gave her IV Solu-Medrol 125 mg, 2 g of magnesium IV and a DuoNeb. Patient states that she still not feeling any better. Patient denies chest pain Related Data Home Medications ?Medication ?Instructions ?Recorded ?Confirmed mirtazapine 45 mg tablet 45 mg PO BEDTIME 03/27/20 10/13/23 quetiapine 100 mg tablet (Seroquel) 100 mg PO BEDTIME 03/27/20 10/13/23 lisinopril 10 mg tablet 1 tab PO DAILY 09/29/20 10/13/23 pregabalin 150 mg capsule 150 mg PO BID 11/13/20 10/13/23 esomeprazole magnesium 40 mg 40 mg PO QAM 10/16/21 10/13/23 capsule,delayed release cholecalciferol (vitamin D3) 50 50 mcg PO QAM 12/19/21 10/13/23 mcg (2,000 unit) tablet quetiapine 25 mg tablet 25 mg PO DAILY PRN 05/12/23 10/13/23 Previous Rx's ?Medication ?Instructions ?Recorded acetaminophen 500 mg tablet 500 mg PO Q6H PRN pain or fever 12/12/20 (Tylenol Extra Strength) #20 tabs ondansetron HCl 4 mg tablet 4 mg PO BID-TID PRN nausea and 12/20/21 vomiting 14 days #4 tabs ibuprofen 400 mg tablet 400 mg PO Q6H PRN pain #20 tabs 12/07/22 benzonatate 200 mg capsule 200 mg PO TID PRN cough #30 caps 01/17/23 lidocaine 5 % topical ointment 1 appl topical BID PRN pain #50 03/05/23 grams naloxone 4 mg/actuation nasal 4 mg intranasal Q2M PRN opioid 09/08/23 spray (Narcan) overdose #2 ea albuterol sulfate 2.5 mg/3 mL 2.5 mg (3 mL) inhalation Q4-6H PRN 10/06/23 (0.083 %) solution for nebulization for wheezing #180 mL prednisone 5 mg tablet 5 mg PO QAM #30 tabs 02/02/24 albuterol sulfate 90 mcg/actuation 2 puff inhalation QID PRN for 02/23/24 aerosol inhaler (Ventolin HFA) wheezing #18 grams budesonide-formoterol HFA 160 2 puff inhalation BID #10.2 grams 03/01/24 mcg-4.5 mcg/actuation aerosol inhaler (Symbicort) tiotropium bromide 2.5 2 puff inhalation QAM #4 grams 03/01/24 mcg/actuation mist for inhalation (Spiriva Respimat) ipratropium 0.5 mg-albuterol 3 mg 3 ml inhalation Q6-8H PRN for 03/15/24 (2.5 mg base)/3 mL nebulization wheezing #360 mL soln oxycodone 5 mg tablet 5 mg PO TID PRN pain 30 days #90 03/19/24 tabs montelukast 10 mg tablet 10 mg PO BEDTIME #30 tabs 04/02/24 azithromycin 250 mg tablet 250 mg PO DAILY 4 days #4 tabs 04/04/24 cefuroxime axetil 500 mg tablet 500 mg PO BID #14 tabs 04/04/24 ibuprofen 600 mg tablet 600 mg PO Q8H PRN fever or pain 04/04/24 #20 tabs prednisone 50 mg tablet 50 mg PO DAILY #4 tabs 04/04/24 Allergies Allergy/AdvReac Type Severity Reaction Status Date / Time Penicillins [PENICILLINS] Allergy Severe RASH Verified 04/04/24 00:56 Review of Systems Review of Systems: Constitutional : No Weight loss, No Fever, No Chills, No Night Sweats, No Fatigue, No Malaise ENT/Mouth : No Hearing loss, No Ear Pain, No Nasal Congestion, No Sinus Pain, No Hoarseness, No sore throat, No Rhinorrhea, No Swallowing Difficulty Eyes: No Eye Pain, No Swelling, No Redness, No Foreign Body, No Discharge, No Vision Changes Cardiovascular : No Chest Pain, No SOB, No Dyspnea on Exertion, No Orthopnea, No Edema, No Palpitations Respiratory : Complaining of cough, complaining of wheezing shortness of breath at rest and with exertion. Gastrointestinal : No Nausea, No Vomiting, No Diarrhea, No Constipation, No abdominal Pain, No Hematochezia, No Melena Genitourinary : no irregular bleeding, No Dysuria, No Urinary Frequency, No Hematuria, No Urinary Incontinence, No Urgency, No Flank Pain, No Urinary Flow Changes, No Hesitancy Musculoskeletal : No joint pain, No Myalgias, No Joint Swelling Skin : No Skin Lesions, No rash Neuro : No Weakness, No Numbness, No Paresthesias, No Loss of Consciousness, No Dizziness, No Headache Psych : No Anxiety/Panic, No Depression, No SI/HI/AH/VH, No Social Issues, Heme/Lymph: No Bruising, No Bleeding,No Lymphadenopathy Endocrine : No Polyuria, No Polydipsia, No Temperature Intolerance [facility] Past Medical History Medical History Current non-smoker but past smoking history unknown Respiratory failure with hypoxia COPD exacerbation Pre-op examination History of OCD (obsessive compulsive disorder) History of panic attacks Anxiety and depression Radiculopathy, lumbar region HTN (hypertension) Sacroiliitis COPD (chronic obstructive pulmonary disease) Asthma Allergic rhinitis Disc degeneration, lumbar Surgical History History of surgery History of appendectomy Hx of tonsillectomy Status post excision of lipoma History of tubal ligation Hx of excision of mass History of surgery History of laparoscopic cholecystectomy History of esophagogastroduodenoscopy (EGD) History of umbilical hernia repair History of incision and drainage Family History Family History Family/Other Cervical cancer Family/Other Stomach cancer Social History Social History Household Members: Spouse Household Members Other:: grandson Housing: House Do you presently have visiting nurse or other home services: No Alcohol intake: never Patient Tobacco Use Status: Former Tobacco user Tobacco use type: Cigarette Smoked in Last 30 Days: No Substance Use Type: Marijuana Advance Directives: No Do you have a plan to hurt others: No Plan service: No Current occupational status: unemployed Sexual orientation: Straight/Heterosexual Gender identity: Female Physical Exam ED Vital Signs: Vital Signs - 24 hr 04/04/24 00:51 04/04/24 01:35 04/04/24 02:48 Temperature 99.3 F 100.4 F 98.7 F Pulse Rate 103 H 96 94 Respiratory Rate 22 H 20 20 Blood Pressure 151/56 H 130/75 120/75 Pulse Oximetry 91 L 94 94 Oxygen Delivery Method Nasal Cannula Nasal Cannula Nasal Cannula Oxygen Flow Rate 3 BMI result Body Mass Index 45.7 Const Other: Appearance: Alert. Oriented X3. In distress, difficulty breathing Eyes: Pupils equal, round and reactive to light. ENT: Pharynx normal. Neck: Normal inspection. Neck supple. No lymph nodes noted. No crepitus CVS: Normal heart rate and rhythm. Pulses normal. Normal S1 and S2 Respiratory: In moderate respiratory distress, tachypneic, no wheezing but decreased air movement, bilateral friction rub with inhalation Abdomen: Soft and nontender. No rigidity. No distention. Skin: Skin warm and dry. Normal skin color. Normal skin turgor. Extremities: No lower extremity edema. No Lacerations. No Rash Neuro: Oriented X 3. No motor deficit. No sensory deficit. Moving all extremities. No slurred speech. CN 2 through 12 grossly intact Psych: calm, cooperative, normal affect Course Course Course Narrative: Per patient's notes, patient has history of both asthma and advanced COPD. All of patient's labs pending. Due to patient's past medical history especially history of COPD, patient is empirically being treated with antibiotics IV. So far did not have anything back hit including labs imaging or vitals, sepsis not suspected. As mentioned above, patient already received per EMS 125 mg of Solu-Medrol and 2 g of magnesium Medications Administered Discontinued Medications Generic Name Dose Route Start Last Admin Trade Name Freq PRN Reason Stop Dose Admin Ceftriaxone Sodium 1 gm 04/04/24 00:53 04/04/24 01:11 Ceftriaxone Sodium 1 Gm Vial IVPUSH 04/04/24 00:54 1 gm ONCE ONE Administration Azithromycin 500 mg/ Sodium 250 mls @ 125 mls/hr 04/04/24 00:53 04/04/24 03:24 Chloride IV 04/04/24 02:52 Infused ONCE ONE Infusion Sodium Chloride 1,000 mls @ 999 mls/hr 04/04/24 00:54 04/04/24 02:50 Ns IVCONT 04/04/24 01:54 Infused .Q1H1M ONE Infusion Ketorolac Tromethamine 15 mg 04/04/24 01:28 04/04/24 01:32 Ketorolac Tromethamine 15 Mg/Ml Vial IVPUSH 04/04/24 01:29 15 mg ONCE ONE Administration Ondansetron HCl 4 mg 04/04/24 00:44 04/04/24 00:52 Ondansetron Hcl 4 Mg/2 Ml Vial IVPUSH 04/04/24 00:45 4 mg ONCE ONE Administration Medical Decision Making Medical Decision Making [facility] Narrative: My interpretation of labs: Patient's white blood cell count 10.9. [facility] hematology within normal limits, PT INR within normal limits, blood gases at baseline, chemistry no significant abnormality. Normal LFTs, normal troponin, negative BNP. Serology positive for RSV Chest x-ray positive for pneumonia Patient has already been covered with IV fluids and antibiotics. Patient already received Solu-Medrol, magnesium and nebulization treatments. Patient's oxygen saturation 88% walking without oxygen. Patient states that she has oxygen at home p.r.n.. Patient states that she is breathing more comfortably. Given patient's past medical history of asthma/COPD and now has RSV and pneumonia, I offered admission to the patient. Patient states that she respectfully declines but would like to be discharged home. Discussed with the patient that if her respiratory status changes, she needs to return to the emergency room, patient agrees with plan. Differential Diagnosis Differential Diagnoses: The differential diagnosis associated with the presentation includes (COVID, influenza, RSV bronchiolitis, pneumonia, asthma, chronic lung disease) Admission/Observation Consideration of admission/observation: Escalation of care including admission/observation considered (Admission offered but patient declined) Lab Data [facility] Lab Attestation statement: I reviewed the patient's lab results. 04/04/24 01:05 04/04/24 01:05 Labs: Lab Results 04/04/24 04/04/24 Range/Units 01:05 01:11 WBC 10.9 H (4.8-10.8) X10*3/uL RBC 4.91 (4.20-5.50) X10*6/uL Hgb 14.2 (12.0-16.0) g/dl Hct 44.3 (37.0-47.0) % MCV 90.2 (80.0-98.0) fL MCH 28.9 (27.0-33.0) pg MCHC 32.1 (31.0-35.0) g/dl RDW 13.8 (11.0-16.0) % Plt Count 245 (160-400) X10*3/uL MPV 9.2 L (9.4-12.3) fL Immature Gran % (Auto) 0.4 (0.0-0.4) % Neut % (Auto) 78.2 H (45-73) % Lymph % (Auto) 15.7 L (20-40) % [place] % (Auto) 4.7 (2-11) % Eos % (Auto) 0.5 (0-4) % Baso % (Auto) 0.5 (0-2) % Lymph # (Auto) 1.7 (1.2-4.9) X10*3/uL [place] # (Auto) 0.5 (0.1-1.2) X10*3/uL Eos # (Auto) 0.1 (0.0-0.4) X10*3/uL Baso # (Auto) 0.1 (0.0-0.2) X10*3/uL Abs Immat Gran (auto) 0.04 H (0.00-0.03) X10*3/uL Absolute Neuts (auto) 8.6 H (2.0-8.3) x10*3/uL Absolute Nucleated RBC 0.000 (0.0-0.012) X10*3/uL Nucleated RBC % (auto) 0.0 (0.0-0.2) /100WBC PT 11.0 (10.9-12.4) SEC INR 0.9 (0.9-1.1) VBG pH 7.40 (7.32-7.43) VBG pCO2 57 mmHg VBG pO2 22 mmHg VBG HCO3 36 H (22-26) mmol/L VBG O2 Saturation 30.0 % VBG Base Excess 9.4 mmol/L Sodium 140 (135-145) mmol/L Potassium 3.8 (3.3-5.1) mmol/L Chloride 102 (96-108) mmol/L Carbon Dioxide 30 H (22-29) mmol/L Anion Gap 12 (12-20) BUN 13 (9-16) mg/dL Creatinine 0.77 (0.5-1.4) mg/dL Estim Creat Clear Calc 104.3 Estimated GFR > 60 Random Glucose 104 (60-115) mg/dL Lactic Acid 1.0 (0.5-2.0) mmol/L Calcium 9.2 (8.4-10.2) mg/dL Total Bilirubin 0.3 (0.0-1.0) mg/dL Direct Bilirubin 0.1 (0.0-0.5) mg/dL AST 22 (5-31) U/L ALT 11 (0-31) U/L Alkaline Phosphatase 76 (39-117) U/L Troponin I High Sens < 2.7 (<3.5-17.0) ng/L B-Natriuretic Peptide 18 (<100) pg/mL Total Protein 7.0 (6.5-8.0) g/dL Albumin 4.2 (3.5-5.0) g/dL Influenza Type A (PCR) NEGATIVE (Negative) Influenza Type B (PCR) NEGATIVE (Negative) RSV RNA Qual (PCR) POSITIVE A (Negative) SARS-CoV-2 RNA (RT-PCR) NEGATIVE (Negative) Independent Interpretation I performed an independent interpretation of an: Plain X-Ray Radiology Impression Discussion of test interpretation with radiology: I have reviewed the radiologist's reading. Radiologist Impression: Ill-defined opacity in the right lung base with partial obscuration of the right heart border. Left lung is clear. Large lung volumes with hyperlucent apices suggesting emphysema. Heart size is normal. No acute fracture. IMPRESSION: 1. Lower right lung pneumonia. Independent Historian Clinical information obtained from an independent historian. History obtained from or confirmed by: Spouse and EMS Critical Care Time Critical Care Time Critical Care Time: Yes Total Critical Care Time: 60 Attestation: I have personally provided critical care time. Time includes review of lab data, radiology results, discussion with consultants, and monitoring for potential decompensation. Intervention performed as documented. Discharge Plan Discharge Clinical Impression: Respiratory syncytial virus bronchiolitis, Pneumonia, Asthma exacerbation Patient Disposition: Home, Self-Care Instructions: Asthma (ED), Community Acquired Pneumonia (ED), Wheezing (ED) Additional Instructions: Please follow-up with your primary care physician tomorrow. If you have any worsening or new symptoms, please return to the emergency room or call 911 Prescriptions: New cefuroxime axetil 500 mg tablet 500 mg PO BID Qty: 14 0RF azithromycin 250 mg tablet 250 mg PO DAILY 4 Days Qty: 4 0RF Rx Instructions: start on day 2 of therapy prednisone 50 mg tablet 50 mg PO DAILY Qty: 4 0RF ibuprofen 600 mg tablet 600 mg PO Q8H PRN (Reason: fever or pain) Qty: 20 0RF No Action lidocaine 5 % ointment 1 appl topical BID PRN (Reason: pain) Qty: 50 1RF albuterol sulfate 2.5 mg /3 mL (0.083 %) solution for nebulization 2.5 mg inhalation Q4-6H PRN (Reason: for wheezing) Qty: 180 2RF prednisone 5 mg tablet 5 mg PO QAM Qty: 30 3RF albuterol sulfate [Ventolin HFA] 90 mcg/actuation HFA aerosol inhaler 2 puff inhalation QID PRN (Reason: for wheezing) Qty: 18 3RF Spiriva Respimat 2.5 mcg/actuation mist 2 puff inhalation QAM Qty: 4 3RF budesonide-formoterol [Symbicort] 160-4.5 mcg/actuation HFA aerosol inhaler 2 puff inhalation BID Qty: 10.2 3RF ipratropium-albuterol 0.5 mg-3 mg(2.5 mg base)/3 mL solution for nebulization 3 ml inhalation Q6-8H PRN (Reason: for wheezing) Qty: 360 1RF oxycodone 5 mg tablet 5 mg PO TID PRN (Reason: pain) 30 Days Qty: 90 0RF Rx Instructions: Partial Fill upon patient request. montelukast 10 mg tablet 10 mg PO BEDTIME Qty: 30 3RF lisinopril 10 mg tablet 1 tab PO DAILY pregabalin 150 mg Capsule 150 mg PO BID acetaminophen [Tylenol Extra Strength] 500 mg tablet 500 mg PO Q6H PRN (Reason: pain or fever) Qty: 20 0RF ibuprofen 400 mg tablet 400 mg PO Q6H PRN (Reason: pain) Qty: 20 0RF benzonatate 200 mg capsule 200 mg PO TID PRN (Reason: cough) Qty: 30 0RF quetiapine [Seroquel] 100 mg tablet 100 mg PO BEDTIME mirtazapine 45 mg tablet 45 mg PO BEDTIME ondansetron HCl 4 mg tablet 4 mg PO BID-TID PRN (Reason: nausea and vomiting) 14 Days Qty: 4 0RF esomeprazole magnesium 40 mg capsule,delayed release(DR/EC) 40 mg PO QAM cholecalciferol (vitamin D3) 50 mcg (2,000 unit) tablet 50 mcg PO QAM quetiapine 25 mg tablet 25 mg PO DAILY PRN naloxone [Narcan] 4 mg/actuation spray,non-aerosol 4 mg intranasal Q2M PRN (Reason: opioid overdose) Qty: 2 0RF Rx Instructions: spray 1 dose into ONE nostril; alternate nostrils w each dose until help arrives Print Language: [place]
[2024-04-04 00:51] VITALS: BP 151/56; PULSE 103; RESP 22; TEMP 37.4; O2SAT 91; BMI 45.7
[2024-04-04] MEDS: ondansetron HCL 4 MG/2 ML VIAL IVPUSH (00:52)
[2024-04-04] MEDS: 0.9 % Sodium Chloride 1,000 ML 999 ML IVCONT (01:10)
[2024-04-04 01:11] LABS: MANUAL DIFF FLAG NO
[2024-04-04] MEDS: cefTRIAXone sodium 1 GM VIAL IVPUSH (01:11)
[2024-04-04] MEDS: Azithromycin 500 MG in 0.9 % Sodium Chloride 250 ML 125 MG IV (01:11)
[2024-04-04 01:13] LABS: Basophils Absolute Auto 0.1 X10*3/uL (0.0-0.2); Basophils Percent Auto 0.5 % (0-2); Eosinophils Absolute Auto 0.1 X10*3/uL (0.0-0.4); Eosinophils Percent Auto 0.5 % (0-4); Hematocrit 44.3 % (37.0-47.0); Hemoglobin 14.2 g/dl (12.0-16.0); Imm Gran Abs Auto 0.04 X10*3/uL (0.00-0.03); Imm Gran Pct Auto 0.4 % (0.0-0.4); Lymphocytes Absolute Auto 1.7 X10*3/uL (1.2-4.9); Lymphocytes Percent Auto 15.7 % (20-40); Mean Corpuscular HGB Conc 32.1 g/dl (31.0-35.0); Mean Corpuscular Hemoglobin 28.9 pg (27.0-33.0); Mean Corpuscular Volume 90.2 fL (80.0-98.0); Mean Platelet Volume 9.2 fL (9.4-12.3); Monocytes Absolute Auto 0.5 X10*3/uL (0.1-1.2); Monocytes Percent Auto 4.7 % (2-11); Neutrophils Absolute Auto 8.6 x10*3/uL (2.0-8.3); Neutrophils Percent Auto 78.2 % (45-73); Platelet Count 245 X10*3/uL (160-400); Red Blood Count 4.91 X10*6/uL (4.20-5.50); Red Cell Distribution Width 13.8 % (11.0-16.0); White Blood Count 10.9 X10*3/uL (4.8-10.8)
[2024-04-04 01:17] LABS: VBG Base Excess 9.4 mmol/L; VBG HCO3 36 mmol/L (22-26); VBG pCO2 57 mmHg; VBG pO2 22 mmHg
[2024-04-04 01:17] LABS: Venous Blood Gas Refer to POC result
[2024-04-04 01:20] LABS: INTERNATIONAL NORM RATIO 0.9 (0.9-1.1)
[2024-04-04] MEDS: Ketorolac Tromethamine 15 MG/ML VIAL IVPUSH (01:32)
[2024-04-04 01:35] VITALS: BP 130/75; PULSE 96; RESP 20; TEMP 38; O2SAT 94
[2024-04-04 01:36] LABS: B Type Natriuretic Peptide 18 pg/mL (<100)
[2024-04-04 01:42] LABS: Alanine Aminotransferase 11 U/L (0-31); Albumin Level 4.2 g/dL (3.5-5.0); Anion Gap 12 (12-20); Aspartate Amino Transferase 22 U/L (5-31); Bilirubin Direct 0.1 mg/dL (0.0-0.5); Bilirubin Total 0.3 mg/dL (0.0-1.0); Blood Urea Nitrogen 13 mg/dL (9-16); Calcium 9.2 mg/dL (8.4-10.2); Carbon Dioxide 30 mmol/L (22-29); Chloride 102 mmol/L (96-108); Creatinine Clr Calc Pharmacy 104.3; Estimated Glomerular Filt Rate > 60; Glucose Random 104 mg/dL (60-115); Potassium 3.8 mmol/L (3.3-5.1); Sodium 140 mmol/L (135-145); Troponin-I High Sensitivity < 2.7 ng/L (<3.5-17.0)
--- NOTE | 2024-04-04 01:48 | PC.NURSE ---
pt changed into hospital attire, labs collected, EKG, medicated per may, Respiratory into assess and provided a breathing treatment.
[2024-04-04 01:51] LABS: Influenza A PCR NEGATIVE (Negative); Influenza B PCR NEGATIVE (Negative); Resp Syncy Virus RNA Qual PCR POSITIVE (Negative); SARS COV2 PCR INHOUSE NEGATIVE (Negative)
[2024-04-04 02:35] LABS: Alkaline Phosphatase 76 U/L (39-117)
[2024-04-04 02:48] VITALS: BP 120/75; PULSE 94; RESP 20; TEMP 37.1; O2SAT 94
--- NOTE | 2024-04-04 02:59 | PC.NURSE ---
pt report she is feeling better, requesting to go home, Iv medication still running, pt report pain relief from headache at this time.
--- NOTE | 2024-04-04 03:31 | PC.NURSE ---
Addendum entered by Marilu Carpenter 04/04/24 03:35: pt states that she feels much better on 3 liters at baseline provider made aware Original Note: pt ambulated in room, steady gait on feet, commode given, pt voided.
[2024-04-04 03:45] VITALS: BP 131/84; PULSE 88; RESP 18; TEMP 37.2; O2SAT 94
== END 2024-04-04 03:56 | disposition home or self-care (01) ==
PROVIDERS: Emergency Provider Emergency Medicine
DX: J21.0 Acute bronchiolitis due to respiratory syncytial virus (principal); J18.9 Pneumonia, unspecified organism; J45.901 Unspecified asthma with (acute) exacerbation; R06.02 Shortness of breath; Z79.899 Other long term (current) drug therapy; Z87.891 Personal history of nicotine dependence; Z03.818 Encounter for observation for suspected exposure to other biological agents ruled out
CPT/HCPCS: 0241U; 36415; 71045; 80048; 80076; 82803; 83605; 83880; 84484; 85025; 85610; 87040; 93005; 96361; 96365; 96375; 99285; J0456; J0696; J1885; J2405

== ENCOUNTER → 2024-04-04 01:02 | Outpatient (BNV) | payer MEDICAID, SELFPAY | PROVIDERS: Emergency Provider Emergency Medicine; Visit Provider Internal Medicine Cardiovascular Disease | DX: R94.31 Abnormal electrocardiogram [ECG] [EKG] (principal) | CPT/HCPCS: 93010 ==

== ENCOUNTER → 2024-04-04 01:45 | Outpatient (BNV) | payer MEDICAID, SELFPAY | PROVIDERS: Emergency Provider Emergency Medicine; Visit Provider Radiology Diagnostic Radiology | DX: J18.1 Lobar pneumonia, unspecified organism (principal) | CPT/HCPCS: 71045 ==

== ENCOUNTER 2024-04-06 10:22 | Inpatient (IN) | payer MEDICAID, SELFPAY ==
[2024-04-06] VITALS (11 sets, daily range): BP systolic 118–152; BP diastolic 74–120; PULSE 58–114; RESP 14–32; TEMP 36.6–36.9; O2SAT 95–100; BMI 20.7; BMI 20.4
--- NOTE | 2024-04-06 | ECG_ITS ---
Test Reason : SOB/RSV Blood Pressure : */* mmHG Vent. Rate : 89 BPM Atrial Rate : 89 BPM P-R Int : 126 ms QRS Dur : 84 ms QT Int : 358 ms P-R-T Axes : 82 66 80 degrees QTcB Int : 435 ms Normal sinus rhythm Normal ECG When compared with ECG of 04-Apr-2024 01:02, No significant change was found Referred By: Kathy Shelton Electronically Signed By: PEDRO CAMPOS
--- NOTE | ~2024-04-06 | XR_ITS ---
EXAMINATION: XR CHEST CLINICAL INFORMATION: cough COMPARISON: X-ray dated April 04, 2024 TECHNIQUE: Frontal view of the chest was obtained. FINDINGS: Hyperinflated lungs. Pulmonary reticular pattern. Subtle patchy opacity, right lung base. No pneumothorax. No pleural effusion. Heart and mediastinal silhouette appears normal in size with calcified plaque aortic arch. Multilevel thoracic and upper lumbar spondylosis. XR/XR chest 1V IMPRESSION: Improved aeration, right lung base/right middle lobe. Chronic interstitial lung disease and questionable COPD emphysematous type changes. Electronically signed by: Francis Connelly MD 04/06/2024 11:31 AM JOANN
--- NOTE | 2024-04-06 10:42 | ED_ITS ---
HPI - SOB/Dyspnea General Chief Complaint: Dyspnea Stated Complaint: SOB, 90% 3LPM,DUONEB GIVEN PER EMS Time Seen by Provider: 04/06/24 10:36 Source: patient and EMS Mode of arrival: EMS History of Present Illness HPI Narrative: This is a 52 years old the patient presented to the ED in acute respiratory distress she was given nebulizer, Solu-Medrol and magnesium by the iron worker. Patient was seen in the emergency department on April 04 2 days ago,she eas diagnosed with a right lower lobe pneumonia she was discharged home on cefuroxime/azithromycin/prednisone,she was also positive for RSV MD elicited complaint: shortness of breath and cough Onset (ago): day(s) (2) Context: recent illness Timing: constant Severity: severe Exacerbating factors: nothing Relieving factors: nothing Known history of: COPD Related Data Home oxygen amount: 3 liters Home Medications ?Medication ?Instructions ?Recorded ?Confirmed mirtazapine 45 mg tablet 45 mg PO BEDTIME 03/27/20 04/06/24 quetiapine 100 mg tablet (Seroquel) 100 mg PO BEDTIME 03/27/20 04/06/24 lisinopril 10 mg tablet 1 tab PO DAILY 09/29/20 04/06/24 pregabalin 150 mg capsule 150 mg PO BID 11/13/20 04/06/24 esomeprazole magnesium 40 mg 40 mg PO DAILY@0630 10/16/21 04/06/24 capsule,delayed release cholecalciferol (vitamin D3) 50 50 mcg PO DAILY 12/19/21 04/06/24 mcg (2,000 unit) tablet prednisone 5 mg tablet 5 mg PO DAILY 04/06/24 04/06/24 tiotropium bromide 2.5 2 puff inhalation DAILY 04/06/24 04/06/24 mcg/actuation mist for inhalation (Spiriva Respimat) Previous Rx's ?Medication ?Instructions ?Recorded ondansetron HCl 4 mg tablet 4 mg PO BID-TID PRN nausea and 12/20/21 vomiting 14 days #4 tabs lidocaine 5 % topical ointment 1 appl topical BID PRN pain #50 03/05/23 grams naloxone 4 mg/actuation nasal 4 mg intranasal Q2M PRN opioid 09/08/23 spray (Narcan) overdose #2 ea albuterol sulfate 2.5 mg/3 mL 2.5 mg (3 mL) inhalation Q4-6H PRN 10/06/23 (0.083 %) solution for nebulization for wheezing #180 mL albuterol sulfate 90 mcg/actuation 2 puff inhalation QID PRN for 02/23/24 aerosol inhaler (Ventolin HFA) wheezing #18 grams budesonide-formoterol HFA 160 2 puff inhalation BID #10.2 grams 03/01/24 mcg-4.5 mcg/actuation aerosol inhaler (Symbicort) ipratropium 0.5 mg-albuterol 3 mg 3 ml inhalation Q6-8H PRN for 03/15/24 (2.5 mg base)/3 mL nebulization wheezing #360 mL soln oxycodone 5 mg tablet 5 mg PO TID PRN pain 30 days #90 03/19/24 tabs montelukast 10 mg tablet 10 mg PO BEDTIME #30 tabs 04/02/24 azithromycin 250 mg tablet 250 mg PO DAILY 4 days #4 tabs 04/04/24 cefuroxime axetil 500 mg tablet 500 mg PO BID #14 tabs 04/04/24 ibuprofen 600 mg tablet 600 mg PO Q8H PRN fever or pain 04/04/24 #20 tabs prednisone 50 mg tablet 50 mg PO DAILY #4 tabs 04/04/24 Allergies Allergy/AdvReac Type Severity Reaction Status Date / Time Penicillins [PENICILLINS] Allergy Severe RASH Verified 04/06/24 10:32 Review of Systems 2 Constitutional: Constitutional: Reports no additional constitutional complaints ENT: Reports system reviewed and no additional complaints, except as documented Cardiovascular: Cardiovascular: Reports dyspnea Respiratory: Respiratory: Reports chest congestion, Reports dyspnea and Reports wheezing Allergic/Immunologic: Allergic/Immunologic: Reports wheezing PMFSH Past Medical History Attestation statement: The following information was validated with the patient. Medical History Current non-smoker but past smoking history unknown Respiratory failure with hypoxia COPD exacerbation Pre-op examination History of OCD (obsessive compulsive disorder) History of panic attacks Anxiety and depression Radiculopathy, lumbar region HTN (hypertension) Sacroiliitis COPD (chronic obstructive pulmonary disease) Asthma Allergic rhinitis Disc degeneration, lumbar Surgical History History of surgery History of appendectomy Hx of tonsillectomy Status post excision of lipoma History of tubal ligation Hx of excision of mass History of surgery History of laparoscopic cholecystectomy History of esophagogastroduodenoscopy (EGD) History of umbilical hernia repair History of incision and drainage Family History Family History Family/Other Cervical cancer Family/Other Stomach cancer Social History Social History Household Members: Spouse Household Members Other:: grandson Housing: House Do you presently have visiting nurse or other home services: No Alcohol intake: never Patient Tobacco Use Status: Former Tobacco user Tobacco use type: Cigarette Substance Use Type: Marijuana Advance Directives: Yes Advance Directives Information Provided: Yes Advance Directives on File: No Do you have a plan to hurt others: No Plan Patient : No service: No Current occupational status: unemployed Sexual orientation: Straight/Heterosexual Gender identity: Female Physical Exam 2 Vital Signs: Vital Signs: Last Vital Signs Temp 97.8 F 04/06/24 10:31 Pulse 108 H 04/06/24 11:11 Resp 28 H 04/06/24 11:11 BP 152/120 H 04/06/24 10:31 Pulse Ox 100 04/06/24 10:31 O2 Del Method Aerosol Mask, Non -Rebreather Mask 04/06/24 10:31 BMI result Body Mass Index 20.7 Patient is in respiratory distress she is tachypneic tachycardic Const: General: alert Nutritional Appearance: average body habitus O rientation/consciousness: patient oriented x3 HEENT: Head: Yes normal to inspection Face and sinus: Yes normal facial exam Throat: Yes posterior oropharynx normal Neck: Neck: Yes normal visual inspection and Yes full ROM Chest: Chest palpation & inspection: normal inspection of the chest Resp: Effort & Inspection: audible wheezes, labored, respiratory distress, retractions and prolonged expiratory phase Auscultation: rhonchi and wheezes Cardio: Jugular venous distension: no JVD Palpation: normal PMI Rate: t achycardic GI: Inspection: Yes normal to inspection Palpation (GI): Soft to palpation, not firm and nontender Skin: General skin exam: no rashes or lesions noted and elasticity normal Neuro: General: patient oriented x3 Course Reevaluation(s) Reevaluation #1: doing better,discussed with hospitalist Dr Powell Time: 13:32 Medications Administered Discontinued Medications Generic Name Dose Route Start Last Admin Trade Name Freq PRN Reason Stop Dose Admin Albuterol Sulfate 7.5 mg/ 0 mg 04/06/24 10:38 04/06/24 10:44 Albuterol/Ipratropium 3 ml INHALE 04/06/24 10:39 10 each ONCE ONE Administration Medical Decision Making Medical Decision Making [facility] Narrative: Patient presented in respiratory distress she was seen in the emergency room 2 days ago diagnosed with a right lower lobe pneumonia sent home on 2 antibiotic and prednisone. We will obtain repeat chest x-ray VBG anticipate admission Differential Diagnosis Differential Diagnoses: The differential diagnosis associated with the presentation includes COPD exacerbation/pneumonia/pneumothorax Admission/Observation Consideration of admission/observation: Escalation of care including admission/observation considered Consult Healthcare Provider Management of the patient was discussed with: Hospitalist Lab Data [facility] Lab Attestation statement: I reviewed the patient's lab results. 04/06/24 11:00 04/06/24 11:00 Labs: Lab Results 04/06/24 04/06/24 04/06/24 Range/Units 11:00 11:05 13:03 WBC 11.4 H (4.8-10.8) X10*3/uL RBC 4.83 (4.20-5.50) X10*6/uL Hgb 14.0 (12.0-16.0) g/dl Hct 43.6 (37.0-47.0) % MCV 90.3 (80.0-98.0) fL MCH 29.0 (27.0-33.0) pg MCHC 32.1 (31.0-35.0) g/dl RDW 13.7 (11.0-16.0) % Plt Count 246 (160-400) X10*3/uL MPV 9.7 (9.4-12.3) fL Immature Gran % (Auto) 0.4 (0.0-0.4) % Neut % (Auto) 75.9 H (45-73) % Lymph % (Auto) 17.9 L (20-40) % Carlton % (Auto) 5.4 (2-11) % Eos % (Auto) 0.2 (0-4) % Baso % (Auto) 0.2 (0-2) % Lymph # (Auto) 2.0 (1.2-4.9) X10*3/uL Carlton # (Auto) 0.6 (0.1-1.2) X10*3/uL Eos # (Auto) 0.0 (0.0-0.4) X10*3/uL Baso # (Auto) 0.0 (0.0-0.2) X10*3/uL Abs Immat Gran (auto) 0.05 H (0.00-0.03) X10*3/uL Absolute Neuts (auto) 8.6 H (2.0-8.3) x10*3/uL Absolute Nucleated RBC 0.000 (0.0-0.012) X10*3/uL Nucleated RBC % (auto) 0.0 (0.0-0.2) /100WBC Hold Blue Top SEE NOTE VBG pH 7.43 (7.32-7.43) VBG pCO2 52 mmHg VBG pO2 33 mmHg VBG HCO3 35 H (22-26) mmol/L VBG O2 Saturation 55.0 % VBG Base Excess 9.5 mmol/L Sodium 144 (135-145) mmol/L Potassium 3.2 L (3.3-5.1) mmol/L Chloride 109 H (96-108) mmol/L Carbon Dioxide 28 (22-29) mmol/L Anion Gap 10 L (12-20) BUN 16 (9-16) mg/dL Creatinine 0.67 (0.5-1.4) mg/dL Estim Creat Clear Calc 80.3 Estimated GFR > 60 Random Glucose 127 H (60-115) mg/dL Lactic Acid 0.7 (0.5-2.0) mmol/L Calcium 9.1 (8.4-10.2) mg/dL Total Bilirubin 0.3 (0.0-1.0) mg/dL AST 20 (5-31) U/L ALT 13 (0-31) U/L Alkaline Phosphatase 64 (39-117) U/L Troponin I High Sens < 2.7 (<3.5-17.0) ng/L B-Natriuretic Peptide 46 (<100) pg/mL Total Protein 6.9 (6.5-8.0) g/dL Albumin 3.9 (3.5-5.0) g/dL Influenza Type A (PCR) NEGATIVE (Negative) Influenza Type B (PCR) NEGATIVE (Negative) RSV RNA Qual (PCR) POSITIVE A (Negative) SARS-CoV-2 RNA (RT-PCR) NEGATIVE (Negative) Independent Interpretation I performed an independent interpretation of an: Plain X-Ray Radiology Impression Discussion of test interpretation with radiology: I have reviewed the radiologist's reading. Critical Care Time Critical Care Time Critical Care Time: Yes Total Critical Care Time: 60 Attestation: taking care of the pt multiple nebs back to back Discharge Plan Discharge Clinical Impression: COPD exacerbation RSV (respiratory syncytial virus infection) Qualifiers: RSV infection type: pneumonia Qualified Code(s): J12.1 - Respiratory syncytial virus pneumonia Patient Disposition: Admitted As Inpatient Print Language: Peruvian
[2024-04-06] MEDS: Albuterol Sulfate 7.5 MG, Albuterol/Iprat 2.5/0.5MG 3 ML 3 ML INHALE (10:44)
[2024-04-06 11:06] LABS: MANUAL DIFF FLAG NO
[2024-04-06 11:08] LABS: Basophils Percent Auto 0.2 % (0-2); Eosinophils Percent Auto 0.2 % (0-4); Hematocrit 43.6 % (37.0-47.0); Imm Gran Abs Auto 0.05 X10*3/uL (0.00-0.03); Imm Gran Pct Auto 0.4 % (0.0-0.4); Lymphocytes Percent Auto 17.9 % (20-40); Mean Corpuscular HGB Conc 32.1 g/dl (31.0-35.0); Mean Corpuscular Volume 90.3 fL (80.0-98.0); Mean Platelet Volume 9.7 fL (9.4-12.3); Monocytes Absolute Auto 0.6 X10*3/uL (0.1-1.2); Monocytes Percent Auto 5.4 % (2-11); Neutrophils Absolute Auto 8.6 x10*3/uL (2.0-8.3); Neutrophils Percent Auto 75.9 % (45-73); Platelet Count 246 X10*3/uL (160-400); Red Blood Count 4.83 X10*6/uL (4.20-5.50); Red Cell Distribution Width 13.7 % (11.0-16.0); White Blood Count 11.4 X10*3/uL (4.8-10.8)
[2024-04-06 11:12] LABS: Venous Blood Gas Refer to POC result
[2024-04-06 11:13] LABS: VBG Base Excess 9.5 mmol/L; VBG HCO3 35 mmol/L (22-26); VBG pCO2 52 mmHg; VBG pH 7.43 (7.32-7.43); VBG pO2 33 mmHg
--- NOTE | 2024-04-06 11:19 | PC.NURSE ---
patient sitting upright in bed with much less labored breathing. Patient placed back on 3L NC baseline oxygen. Pt remains aaxo3 speaking clear full sentences. Family at bedside.
[2024-04-06 11:27] LABS: Alanine Aminotransferase 13 U/L (0-31); Albumin Level 3.9 g/dL (3.5-5.0); Alkaline Phosphatase 64 U/L (39-117); Anion Gap 10 (12-20); Aspartate Amino Transferase 20 U/L (5-31); Bilirubin Total 0.3 mg/dL (0.0-1.0); Blood Urea Nitrogen 16 mg/dL (9-16); Calcium 9.1 mg/dL (8.4-10.2); Carbon Dioxide 28 mmol/L (22-29); Chloride 109 mmol/L (96-108); Creatinine Clr Calc Pharmacy 80.3; Estimated Glomerular Filt Rate > 60; Glucose Random 127 mg/dL (60-115); Potassium 3.2 mmol/L (3.3-5.1); Sodium 144 mmol/L (135-145); Total Protein 6.9 g/dL (6.5-8.0)
[2024-04-06 11:30] LABS: B Type Natriuretic Peptide 46 pg/mL (<100)
[2024-04-06 11:38] LABS: Troponin-I High Sensitivity < 2.7 ng/L (<3.5-17.0)
[2024-04-06 11:53] LABS: Influenza A PCR NEGATIVE (Negative); Influenza B PCR NEGATIVE (Negative); Resp Syncy Virus RNA Qual PCR POSITIVE (Negative); SARS COV2 PCR INHOUSE NEGATIVE (Negative)
--- NOTE | 2024-04-06 13:13 | PHA.MEDREC ---
Pharmacy Consult ? Medication Reconciliation Pharmacy has completed the medication reconciliation. Spoke with pt to confirm medications.
[2024-04-06 13:26] LABS: Lactic Acid 0.7 mmol/L (0.5-2.0)
--- NOTE | 2024-04-06 13:44 | P.HPHOSP_ITS ---
History of Present Illness Date of Service: 04/06/24 Chief Complaint: SOB A 53 years old lady with PMH of COPD, smoking, HTN, GERD, RUELAS among others presenting to the hospital with worsening SOB and dyspnea for 3 days. The patient was evaluated in the hospital 2 days ago and was discharged home as she improved with nebulizer and steroids. She did not feel well as she has been worsening overall with reported more SOB, dyspnea, cough, chills. No chest pain, palpitations, nausea, vomiting, diarrhea or urinary symptoms. In ED a CXR showing RLL infiltrates with increase respiratory rate and pulse. She will be admitted for close monitoring and treatment. Review of Systems 2 Review of Systems: reports chills or weakness No chest pain, palpitation having shortness of breath and coughing No abdominal pain, nausea or vomiting No urinary symptoms No any rash or wounds PMFSH Medical History Current non-smoker but past smoking history unknown Respiratory failure with hypoxia COPD exacerbation Pre-op examination History of OCD (obsessive compulsive disorder) History of panic attacks Anxiety and depression Radiculopathy, lumbar region HTN (hypertension) Sacroiliitis COPD (chronic obstructive pulmonary disease) Asthma Allergic rhinitis Disc degeneration, lumbar Family History Family/Other Cervical cancer Family/Other Stomach cancer Surgical History History of surgery History of appendectomy Hx of tonsillectomy Status post excision of lipoma History of tubal ligation Hx of excision of mass History of surgery History of laparoscopic cholecystectomy History of esophagogastroduodenoscopy (EGD) History of umbilical hernia repair History of incision and drainage Social History Household Members: Spouse Household Members Other:: grandson Housing: House Do you presently have visiting nurse or other home services: No Alcohol intake: never Patient Tobacco Use Status: Former Tobacco user Tobacco use type: Cigarette Substance Use Type: Marijuana Advance Directives: Yes Advance Directives Information Provided: Yes Advance Directives on File: No Do you have a plan to hurt others: No Plan Patient : No service: No Current occupational status: unemployed Sexual orientation: Straight/Heterosexual Gender identity: Female Meds Allergies Allergy/AdvReac Type Severity Reaction Status Date / Time Penicillins [PENICILLINS] Allergy Severe RASH Verified 04/06/24 10:32 Active Medications: Current Medications Acetaminophen (Acetaminophen 325 Mg Tablet) 650 mg PO Q6H PRN PRN Reason: Pain, Mild 1-3,fever,headache Albuterol Sulfate (Albuterol Sulfate (0.083%) 2.5 Mg/3 Ml Vial.Neb) 2.5 mg INHALE Q4H PRN PRN Reason: Shortness of Breath/Wheezing Albuterol/Ipratropium (Albuterol/Iprat 2.5/0.5mg 3 Ml Ampul.Neb) 3 ml INHALE Q4H CINDA Benzonatate (Benzonatate 100 Mg Capsule) 100 mg PO TID PRN PRN Reason: Cough Calcium Carbonate (Calcium Carbonate 750 Mg Tab.Chew) 750 mg PO Q4H PRN PRN Reason: Heartburn Enoxaparin Sodium (Enoxaparin Sodium 40 Mg/0.4 Ml Syringe) 40 mg SUBCUT Q24H CNIDA Levofloxacin (Levaquin) 750 mg in 150 mls @ 100 mls/hr IV Q24H CINDA Magnesium Hydroxide (Milk Of Magnesia 30 Ml Oral.Susp) 30 ml PO DAILY PRN PRN Reason: Constipation Melatonin (Melatonin 3 Mg Tablet) 6 mg PO BEDTIME PRN PRN Reason: Insomnia Methylprednisolone Sodium Succinate (Methylprednisolone Sod Succ 40 Mg/Ml Vial) 40 mg IVPUSH Q24H CINDA Ondansetron HCl (Ondansetron Hcl 4 Mg/2 Ml Vial) 4 mg IVPUSH Q8H PRN PRN Reason: Nausea and Vomiting Sodium Chloride (0.9 % Sodium Chloride Flush 3 Ml Syringe) 3 ml IVFLUSH QSHIFT [facility] Home Medications ?Medication ?Instructions ?Recorded ?Confirmed ?Last Taken ?Type mirtazapine 45 mg tablet 45 mg PO BEDTIME 03/27/20 04/06/24 04/05/24 History quetiapine 100 mg tablet (Seroquel) 100 mg PO BEDTIME 03/27/20 04/06/24 04/05/24 History lisinopril 10 mg tablet 1 tab PO DAILY 09/29/20 04/06/24 04/05/24 History pregabalin 150 mg capsule 150 mg PO BID 11/13/20 04/06/24 04/05/24 History esomeprazole magnesium 40 mg 40 mg PO DAILY@0630 10/16/21 04/06/24 04/05/24 History capsule,delayed release cholecalciferol (vitamin D3) 50 50 mcg PO DAILY 12/19/21 04/06/24 04/05/24 History mcg (2,000 unit) tablet prednisone 5 mg tablet 5 mg PO DAILY 04/06/24 04/06/24 04/05/24 History tiotropium bromide 2.5 2 puff inhalation DAILY 04/06/24 04/06/24 04/05/24 History mcg/actuation mist for inhalation (Spiriva Respimat) Physical Exam 2 Vital Signs and Narrative: Vital Signs: Last Vital Signs Temp 97.8 F 04/06/24 10:31 Pulse 108 H 04/06/24 11:11 Resp 28 H 04/06/24 11:11 BP 152/120 H 04/06/24 10:31 Pulse Ox 100 04/06/24 10:31 O2 Del Method Aerosol Mask, Non -Rebreather Mask 04/06/24 10:31 BMI result Body Mass Index 20.7 Const: Other: Constitutional : Awake, interactive, in moderate respiratory distress using accessory muscles Neck : Normal inspection, Supple Cardiovascular : RRR, no JVP, no lower extremity edema Respiratory : decreased bilateral air entry, basal right sided crackles, expirtory wheezes Gastrointestinal: soft, lax, Normal bowel sounds, Non tender Skin : Warm, Dry Neurological : Alert & oriented x3, No focal deficit Results Labs 04/06/24 11:00 04/06/24 11:00 Labs: Laboratory Results - last 24 hr 04/06/24 04/06/24 04/06/24 11:00 11:05 13:03 MCV 90.3 MCH 29.0 MCHC 32.1 RDW 13.7 Plt Count 246 MPV 9.7 Immature Gran % (Auto) 0.4 Neut % (Auto) 75.9 H Lymph % (Auto) 17.9 L Dewitt % (Auto) 5.4 Eos % (Auto) 0.2 Baso % (Auto) 0.2 Lymph # (Auto) 2.0 Dewitt # (Auto) 0.6 Eos # (Auto) 0.0 Baso # (Auto) 0.0 Abs Immat Gran (auto) 0.05 H Absolute Neuts (auto) 8.6 H Absolute Nucleated RBC 0.000 Nucleated RBC % (auto) 0.0 Hold Blue Top SEE NOTE VBG pH 7.43 VBG pCO2 52 VBG pO2 33 VBG HCO3 35 H VBG O2 Saturation 55.0 VBG Base Excess 9.5 Anion Gap 10 L Estim Creat Clear Calc 80.3 Estimated GFR > 60 Random Glucose 127 H Lactic Acid 0.7 Calcium 9.1 Total Bilirubin 0.3 AST 20 ALT 13 Alkaline Phosphatase 64 Troponin I High Sens < 2.7 B-Natriuretic Peptide 46 Total Protein 6.9 Albumin 3.9 Influenza Type A (PCR) NEGATIVE Influenza Type B (PCR) NEGATIVE RSV RNA Qual (PCR) POSITIVE A SARS-CoV-2 RNA (RT-PCR) NEGATIVE Imaging Radiologist's Impressions: Impressions Chest X-Ray 04/06/24 10:40 IMPRESSION: Improved aeration, right lung base/right middle lobe. Chronic interstitial lung disease and questionable COPD emphysematous type changes. Electronically signed by: Francis Connelly MD 04/06/2024 11:31 AM EST Assessment and Plan (1) RSV (respiratory syncytial virus infection): Qualifiers: RSV infection type: pneumonia Qualified Code(s): J12.1 - Respiratory syncytial virus pneumonia Status: Acute (2) COPD exacerbation: Status: Acute (3) Pneumonia: Status: Acute Plan A 53 years old lady with PMH of COPD, smoking, HTN, GERD, RUELAS among others presenting to the hospital with worsening SOB and dyspnea for 3 days. RLL Pneumonia with SIRS Tachycardia and tachypnea from COPD not due to sepsis Pending cultures Start Levaquin IV wean O2 down as tolerated COPD exacerbation 2/2 RSV infection Nebulizers Steroids Wean O2 down Home inhalers Chronic pain Lytica Mood disorder Remeron, Seroquel GERD PPI DVT PPx Lovenox The patient will need 2 overnight hospital stay for treatment of pneumonia, sepsis and COPD exacerbation pending final cultures Quality Stroke Does the patient have a stroke diagnosis?: No VTE Prior VTE?: No VTE Risk Level:: Medical - moderate - high VTE Device Contraindication: Treatment Not Indicated VTE Drug Contraindication: N/A - Med Ordered
[2024-04-06] MEDS: Doxycycline Hyclate 100 MG in 0.9 % Sodium Chloride 250 ML 166.67 MG IV (13:57)
[2024-04-06] MEDS: levoFLOXacin/D5W 750 MG/150 ML PIGGYBACK 100 MG IV (14:29)
[2024-04-06] MEDS: Enoxaparin Sodium 40 MG/0.4 ML SYRINGE SUBCUT (14:29)
[2024-04-06] MEDS: methylPREDNISolone Sod Succ 40 MG/ML VIAL IVPUSH (14:29)
[2024-04-06] MEDS: Acetaminophen 325 MG TABLET 650 MG PO (15:39)
[2024-04-06] MEDS: Albuterol/Iprat 2.5/0.5MG 3 ML AMPUL.NEB INHALE ×2 (15:52→21:34)
[2024-04-06] MEDS: Pregabalin 150 MG CAPSULE PO ×2 (16:01→21:58)
[2024-04-06] MEDS: oxyCODONE HCl Immed Release 5 MG TABLET PO ×2 (16:01→21:17)
--- NOTE | 2024-04-06 20:27 | MHC.EDTECH ---
This tech took over car of pt at 1900,rounded and introduced self to pt,vitals taken,patient has a bed assigned,waiting for transport at this time ,call umaña in reach
[2024-04-06] MEDS: 0.9 % Sodium Chloride Flush 3 ML SYRINGE IVFLUSH (21:19)
[2024-04-06] MEDS: Mirtazapine 15 MG TABLET 45 MG PO (21:58)
[2024-04-06] MEDS: QUEtiapine Fumarate 100 MG TABLET PO (21:58)
[2024-04-06] MEDS: Montelukast Sodium 10 MG TABLET PO (21:58)
[2024-04-07] VITALS (10 sets, daily range): BP systolic 106–157; BP diastolic 62–96; PULSE 80–160; RESP 16–20; TEMP 36.7–37.1; O2SAT 93–99
--- NOTE | 2024-04-07 | ECG_ITS ---
Test Reason : chest pain Blood Pressure : */* mmHG Vent. Rate : 167 BPM Atrial Rate : 312 BPM P-R Int : * ms QRS Dur : 78 ms QT Int : 282 ms P-R-T Axes : -89 54 261 degrees QTcB Int : 470 ms Atrial flutter Lateral ST depression Abnormal ECG When compared with ECG of 06-Apr-2024 14:50, Atrial flutter has replaced Sinus rhythm Vent. rate has increased by [address] now depressed in Inferior leads ST now depressed in Anterolateral leads T wave inversion now evident in Inferior leads T wave inversion now evident in Anterolateral leads Referred By: Chung Mccrary Electronically Signed By: PEDRO CAMPOS
[2024-04-07 06:53] LABS: MANUAL DIFF FLAG NO
[2024-04-07 06:57] LABS: Basophils Percent Auto 0.3 % (0-2); Hematocrit 41.1 % (37.0-47.0); Hemoglobin 13.3 g/dl (12.0-16.0); Imm Gran Abs Auto 0.05 X10*3/uL (0.00-0.03); Imm Gran Pct Auto 0.6 % (0.0-0.4); Lymphocytes Absolute Auto 1.3 X10*3/uL (1.2-4.9); Lymphocytes Percent Auto 16.6 % (20-40); Mean Corpuscular HGB Conc 32.4 g/dl (31.0-35.0); Mean Corpuscular Hemoglobin 29.1 pg (27.0-33.0); Mean Corpuscular Volume 89.9 fL (80.0-98.0); Mean Platelet Volume 9.5 fL (9.4-12.3); Monocytes Absolute Auto 0.8 X10*3/uL (0.1-1.2); Monocytes Percent Auto 10.3 % (2-11); Neutrophils Absolute Auto 5.6 x10*3/uL (2.0-8.3); Neutrophils Percent Auto 72.2 % (45-73); Platelet Count 249 X10*3/uL (160-400); Red Blood Count 4.57 X10*6/uL (4.20-5.50); Red Cell Distribution Width 13.6 % (11.0-16.0); White Blood Count 7.8 X10*3/uL (4.8-10.8)
[2024-04-07 07:18] LABS: Anion Gap 9 (12-20); Blood Urea Nitrogen 15 mg/dL (9-16); Calcium 9.3 mg/dL (8.4-10.2); Carbon Dioxide 38 mmol/L (22-29); Chloride 104 mmol/L (96-108); Creatinine Clr Calc Pharmacy 76.6; Estimated Glomerular Filt Rate > 60; Glucose Random 95 mg/dL (60-115); Sodium 147 mmol/L (135-145)
[2024-04-07] MEDS: oxyCODONE HCl Immed Release 5 MG TABLET PO ×3 (07:44→18:17)
[2024-04-07] MEDS: Pregabalin 150 MG CAPSULE PO ×2 (07:44→20:57)
[2024-04-07] MEDS: Cholecalciferol (Vitamin D3) 25 MCG TABLET 50 MCG PO (07:44)
[2024-04-07] MEDS: 0.9 % Sodium Chloride Flush 3 ML SYRINGE IVFLUSH (07:44)
[2024-04-07] MEDS: lisinopriL 10 MG TABLET PO (07:44)
[2024-04-07] MEDS: Albuterol/Iprat 2.5/0.5MG 3 ML AMPUL.NEB INHALE ×4 (07:46→19:15)
[2024-04-07] MEDS: LORazepam 2 MG/ML VIAL 0.25 MG IVPUSH ×2 (07:58→18:18)
--- NOTE | 2024-04-07 09:44 | MHC.CM.PN ---
Patient lives in an apartment w/ her partner and grandson. Functionally independent. Home O2 3L supplied by [employer]. PCP Zev Sanders MD Completed HCP naming [facility] 1) daughter Shavonne Mcclure [phone] and 2) partner Oliver Jones [phone]. DP: Goal is home, self care. Family to transport. CM will continue to follow.
[2024-04-07 11:00] LABS: Anion Gap 10 (12-20); Blood Urea Nitrogen 17 mg/dL (9-16); Calcium 9.2 mg/dL (8.4-10.2); Carbon Dioxide 32 mmol/L (22-29); Chloride 107 mmol/L (96-108); Creatinine Clr Calc Pharmacy 87.9; Estimated Glomerular Filt Rate > 60; Glucose Random 104 mg/dL (60-115); Sodium 145 mmol/L (135-145)
--- NOTE | 2024-04-07 11:41 | P.PNIM_ITS ---
Subjective Subjective Date of Service: 04/07/24 Interval History: seen and evaluated this morning becomes anxious and restless when feels SOB more relaxed now after medicating On O2 supplement No other events Review of Systems reports chills and weakness Physical Exam 2 Vital Signs: Vital Signs: Last Vital Signs Temp 98.1 F 04/07/24 07:16 Pulse 154 H 04/07/24 11:03 Resp 18 04/07/24 11:03 BP 157/96 H 04/07/24 07:16 Pulse Ox 97 04/07/24 07:16 O2 Del Method Nasal Cannula 04/07/24 07:16 O2 Flow Rate 3 04/07/24 07:16 BMI result Body Mass Index 20.4 Const: Other: Constitutional : Awake, interactive, restless Neck : Normal inspection, Supple Cardiovascular : RRR, no JVP, no lower extremity edema Respiratory : decreased bilateral air entry, basal right sided crackles, expirtory wheezes Gastrointestinal: soft, lax, Normal bowel sounds, Non tender Skin : Warm, Dry Neurological : Alert & oriented x3, No focal deficit Objective Data Active Medications Acetaminophen (Acetaminophen 325 Mg Tablet) 650 mg PO Q6H PRN PRN Reason: Pain, Mild 1-3,fever,headache Last Admin: 04/06/24 15:39 Dose: 650 mg Documented By: RAMSES Albuterol Sulfate (Albuterol Sulfate (0.083%) 2.5 Mg/3 Ml Vial.Neb) 2.5 mg INHALE RQ4H PRN PRN Reason: Shortness of Breath/Wheezing Albuterol Sulfate (Albuterol Sulfate (0.083%) 2.5 Mg/3 Ml Vial.Neb) 2.5 mg INHALE RQ4H PRN PRN Reason: for wheezing Albuterol/Ipratropium (Albuterol/Iprat 2.5/0.5mg 3 Ml Ampul.Neb) 3 ml INHALE RQ4H CINDA Last Admin: 04/07/24 10:58 Dose: 3 ml Documented By: LYNSNEETU Benzonatate (Benzonatate 100 Mg Capsule) 100 mg PO TID PRN PRN Reason: Cough Calcium Carbonate (Calcium Carbonate 750 Mg Tab.Chew) 750 mg PO Q4H PRN PRN Reason: Heartburn Enoxaparin Sodium (Enoxaparin Sodium 40 Mg/0.4 Ml Syringe) 40 mg SUBCUT Q24H [facility] Last Admin: 04/06/24 14:29 Dose: 40 mg Documented By: RAMSES Fluticasone/Vilanterol (Fluticasone/Vilanterol 200/25 Blst.W.Dev) 1 puff INHALE RDAILY [facility] Last Admin: 04/07/24 09:54 Dose: Not Given Documented By: MEJIA Non-Admin Reason: Patient Asleep Levofloxacin (Levaquin) 750 mg in 150 mls @ 100 mls/hr IV Q24H [facility] Last Infusion: 04/06/24 16:51 Dose: Infused Documented By: RAMSES Ibuprofen (Ibuprofen 600 Mg Tablet) 600 mg PO Q8H PRN PRN Reason: fever or pain Lisinopril (Lisinopril 10 Mg Tablet) 10 mg PO DAILY [facility]; Protocol Last Admin: 04/07/24 07:44 Dose: 10 mg Documented By: MARGO Lorazepam (Lorazepam 2 Mg/Ml Vial) 0.25 mg IVPUSH Q6H PRN PRN Reason: anxiety/restlessness Last Admin: 04/07/24 07:58 Dose: 0.25 mg Documented By: MARGO Magnesium Hydroxide (Milk Of Magnesia 30 Ml Oral.Susp) 30 ml PO DAILY PRN PRN Reason: Constipation Melatonin (Melatonin 3 Mg Tablet) 6 mg PO BEDTIME PRN PRN Reason: Insomnia Methylprednisolone Sodium Succinate (Methylprednisolone Sod Succ 40 Mg/Ml Vial) 40 mg IVPUSH Q24H [facility] Last Admin: 04/06/24 14:29 Dose: 40 mg Documented By: RAMSES Mirtazapine (Mirtazapine 15 Mg Tablet) 45 mg PO BEDTIME [facility] Last Admin: 04/06/24 21:58 Dose: 45 mg Documented By: JOANNA Montelukast Sodium (Montelukast Sodium 10 Mg Tablet) 10 mg PO BEDTIME [facility] Last Admin: 04/06/24 21:58 Dose: 10 mg Documented By: JOANNA Omeprazole (Omeprazole 20 Mg Capsule.Dr) 20 mg PO DAILY@0630 [facility] Last Admin: 04/07/24 05:31 Dose: Not Given Documented By: JOANNA Non-Admin Reason: Patient Asleep Ondansetron HCl (Ondansetron Hcl 4 Mg/2 Ml Vial) 4 mg IVPUSH Q8H PRN PRN Reason: Nausea and Vomiting Oxycodone HCl (Oxycodone Hcl Immed Release 5 Mg Tablet) 5 mg PO TID PRN PRN Reason: Pain, Moderate(Pain Scale 4-6) Last Admin: 04/07/24 07:44 Dose: 5 mg Documented By: MARGO Pregabalin (Pregabalin 150 Mg Capsule) 150 mg PO BID [facility] Last Admin: 04/07/24 07:44 Dose: 150 mg Documented By: MARGO Quetiapine Fumarate (Quetiapine Fumarate 100 Mg Tablet) 100 mg PO BEDTIME [facility] Last Admin: 04/06/24 21:58 Dose: 100 mg Documented By: JOANNA Sodium Chloride (0.9 % Sodium Chloride Flush 3 Ml Syringe) 3 ml IVFLUSH QSHIFT [facility] Last Admin: 04/07/24 07:44 Dose: 3 ml Documented By: MARGO Tiotropium [place] (Tiotropium [place] 2.5 Mcg 1 Puff/2.5 Mcg Mist.Inhal) 2 puff INHALE RDAILY [facility] Last Admin: 04/07/24 09:54 Dose: Not Given Documented By: MEJIA Non-Admin Reason: Patient Asleep Vitamin D (Cholecalciferol (Vitamin D3) 25 Mcg Tablet) 50 mcg PO DAILY [facility] Last Admin: 04/07/24 07:44 Dose: 50 mcg Documented By: MARGO Labs 04/07/24 06:29 04/07/24 10:34 Labs: Laboratory Results - last 24 hr 04/06/24 04/06/24 04/07/24 11:00 13:03 06:29 MCV 89.9 MCH 29.1 MCHC 32.4 RDW 13.6 Plt Count 249 MPV 9.5 Immature Gran % (Auto) 0.6 H Neut % (Auto) 72.2 Lymph % (Auto) 16.6 L [place] % (Auto) 10.3 Eos % (Auto) 0.0 Baso % (Auto) 0.3 Lymph # (Auto) 1.3 [place] # (Auto) 0.8 Eos # (Auto) 0.0 Baso # (Auto) 0.0 Abs Immat Gran (auto) 0.05 H Absolute Neuts (auto) 5.6 Absolute Nucleated RBC 0.000 Nucleated RBC % (auto) 0.0 Anion Gap 9 L Estim Creat Clear Calc 76.6 Estimated GFR > 60 Random Glucose 95 Lactic Acid 0.7 Calcium 9.3 Influenza Type A (PCR) NEGATIVE Influenza Type B (PCR) NEGATIVE RSV RNA Qual (PCR) POSITIVE A SARS-CoV-2 RNA (RT-PCR) NEGATIVE 04/07/24 10:34 MCV MCH MCHC RDW Plt Count MPV Immature Gran % (Auto) Neut % (Auto) Lymph % (Auto) [place] % (Auto) Eos % (Auto) Baso % (Auto) Lymph # (Auto) [place] # (Auto) Eos # (Auto) Baso # (Auto) Abs Immat Gran (auto) Absolute Neuts (auto) Absolute Nucleated RBC Nucleated RBC % (auto) Anion Gap 10 L Estim Creat Clear Calc 87.9 Estimated GFR > 60 Random Glucose 104 Lactic Acid Calcium 9.2 Influenza Type A (PCR) Influenza Type B (PCR) RSV RNA Qual (PCR) SARS-CoV-2 RNA (RT-PCR) Assessment and Plan (1) Pneumonia: Status: Acute (2) RSV (respiratory syncytial virus infection): Status: Acute Plan A 53 years old lady with PMH of COPD, smoking, HTN, GERD, RUELAS among others presenting to the hospital with worsening SOB and dyspnea for 3 days. RLL Pneumonia improving slowly Pending cultures continue Levaquin IV wean O2 down as tolerated COPD exacerbation 2/2 RSV infection Nebulizers Steroids Wean O2 down Home inhalers Chronic pain Lytica Mood disorder Remeron, Seroquel prn Ativan GERD PPI DVT PPx Lovenox The patient will need overnight hospital stay for treatment of pneumonia, sepsis and COPD exacerbation pending final cultures Quality Stroke Does the patient have a stroke diagnosis?: No VTE Prior VTE?: No VTE Risk Level:: Medical - moderate - high VTE Device Contraindication: Treatment Not Indicated VTE Drug Contraindication: N/A - Med Ordered
[2024-04-07] MEDS: levoFLOXacin/D5W 750 MG/150 ML PIGGYBACK 100 MG IV (14:15)
[2024-04-07] MEDS: methylPREDNISolone Sod Succ 40 MG/ML VIAL IVPUSH (14:18)
[2024-04-07] MEDS: Enoxaparin Sodium 40 MG/0.4 ML SYRINGE SUBCUT (14:19)
[2024-04-07] MEDS: Benzonatate 100 MG CAPSULE PO (17:28)
--- NOTE | 2024-04-07 20:08 | ECG_ITS ---
Test Reason : CP Blood Pressure : */* mmHG Vent. Rate : 167 BPM Atrial Rate : 167 BPM P-R Int : 130 ms QRS Dur : 74 ms QT Int : 284 ms P-R-T Axes : * 54 257 degrees QTcB Int : 473 ms Atrial flutter with rapid rate Lateral ST depression Abnormal ECG When compared with ECG of 07-Apr-2024 20:08, No significant changes seen Referred By: Chung Mccrary Electronically Signed By: PEDRO CAMPOS
--- NOTE | 2024-04-07 20:23 | PM.EVENT ---
Event Note Date of Service: 04/07/24 Event Note: Nurse reported patient with palpitations. Irregularly irregular rhythm with atrial tachycardia. Ordered IV Lopressor 5 mg IV push. Will keep patient on cardiac monitoring. ?new onset atrial arrhythmia. Will obtain TSH and echo. Chads Vasc score 2. Troponin pending Time Spent With Patient Time: Total time managing care of this patient today ____ minutes.
[2024-04-07] MEDS: Metoprolol Tartrate 5 MG/5 ML VIAL IVPUSH (20:46)
[2024-04-07] MEDS: QUEtiapine Fumarate 100 MG TABLET PO (20:57)
[2024-04-07] MEDS: Mirtazapine 15 MG TABLET 45 MG PO (20:57)
[2024-04-07] MEDS: Montelukast Sodium 10 MG TABLET PO (20:57)
[2024-04-07 21:30] LABS: Troponin-I High Sensitivity < 2.7 ng/L (<3.5-17.0)
--- NOTE | 2024-04-07 22:54 | PC.NURSE ---
Pt's 1999 vitals came back with HR in 170's, manual 160's; sustained. BP 135/89; provider notified. Set of vitals done. Stat IV Lopressor 5mg, telemetry and EKG ordered. Lopressor administered with good effect, bringing down HR to 100 to 80 bpm. Pt initial symptoms included chest tightness and weakness. At 2200 pt reports weakness, refusing to walk to bathroom; Bedside commode provided instead.
[2024-04-08] VITALS (9 sets, daily range): BP systolic 100–129; BP diastolic 59–74; PULSE 71–141; RESP 16–18; TEMP 36.1–36.9; O2SAT 92–100
[2024-04-08] MEDS: 0.9 % Sodium Chloride Flush 3 ML SYRINGE IVFLUSH ×2 (00:20→09:00)
[2024-04-08] MEDS: Acetaminophen 325 MG TABLET 650 MG PO (06:30)
[2024-04-08] MEDS: Omeprazole 20 MG CAPSULE.DR PO (06:30)
[2024-04-08] MEDS: Albuterol Sulfate (0.083%) 2.5 MG/3 ML VIAL.NEB INHALE (06:34)
--- NOTE | 2024-04-08 07:00 | CA_ITS ---
Transthoracic Echocardiogram Patient (Last, First, Middle): Deysi PfeifferRoslyn Gender: Female Date of : 1970 Age: 53 Procedure Date: 04/08/2024 Procedure Type: Transthoracic Echocardiogram Location: [facility] – [place] Height: 160.02 cm Weight: 52.16 kg BSA: 1.53 m2 Heart Rate: bpm BP: 111 / 64 mmHg [employer] Administrator: EDSON Referring MD: Chung Mccrary MD Symptoms: atrial flutter with rvr Study Quality: Adequate ECG Rhythm: Atrial Fibrillation Conclusions: - The left ventricular systolic function is low normal. The visually estimated ejection fraction is between 50-55%. - No obvious valvular pathology seen on this study. Findings Left Ventricle Normal left ventricular cavity size. There is normal left ventricular wall thickness. The left ventricular systolic function is low normal. The visually estimated ejection fraction is between 50-55%. There is no evidence of regional wall motion abnormalities. Diastolic function is normal for age. Right Ventricle Normal right ventricular cavity size and systolic function. Atria Both atria are normal in size. Aortic Valve There is a normal trileaflet aortic valve. There is no aortic valve stenosis. There is trace (trivial) aortic valve regurgitation. Mitral Valve The mitral valve appears normal. There is no mitral valve regurgitation. There is no mitral valve stenosis. Pulmonic Valve The pulmonic valve is likely normal. Tricuspid Valve Normal tricuspid valve structure. There is trace tricuspid valve regurgitation. There is no evidence of pulmonary hypertension. Great Vessels The asc aorta is normal in size. Venous The inferior vena cava is normal in size and collapses greater than 50% with inspiration. Pericardium/Pleural There is no evidence of pericardial effusion. Prior Study Comparison No prior study available for comparison. Recommendations, Care & Conclusions No obvious valvular pathology seen on this study. Measurements 2D Linear Measurements IVSd: 1.00 0.6-0.9/0.6-1.0 cm LVIDd: 4.55 3.9-5.3/4.2-5.9 cm LVIDd Index: 2.97 2.4-3.2/2.2-3.1 cm/m2 LVIDs: 3.49 2.0-3.6 cm LVPWd: 0.78 0.7-1.1 cm LA Diam: 2.50 2.7-3.8/3.0-4.0 cm LAIDs Index: 1.63 1.5-2.3 cm/m2 LV Mass: 165.82 67-162/88-224 g LV Mass Index: 108.38 43-95/49-115 g/m2 LVOT Diam: 2.00 3.0+(-)1.3 cm 2D Systolic Function EF 4C: 62.80 >55% EF 2C: 52.10 >55% EF BiP: 58.40 >55% Mitral Valve MV Pk E: 0.46 MV PK A: 0.45 MV Decel Time: 264.00 E/A: 1.00 E'Lateral: 11.20 E'Medial: 6.53 E/E' Med: 7.10 E/E' Lat: 4.10 PHT: 77.00 MVA PHT: 2.86 Decel [place]: 1.75 Aortic Valve AoV Pk Jesus: 1.10 AoV Mn Jesus: 0.78 AoV VTI: 0.18 AoV Pk Grad: 5.00 Aov Mn Grad: 3.00 KATHIE Cont.VTI: 2.98 LVOT LVOT Pk Jesus: 0.96 LVOT Mn Jesus: 0.62 LVOT VTI: 0.17 LVOT Pk Grad: 4.00 LVOT Mn Grad: 2.00 LVOT Diam: 2.00 LVOT Area: 3.14 Diastolic Function MV Pk E: 0.46 MV Pk A: 0.45 E/A: 1.00 E'Medial: 6.53 E/E' Med: 7.10 E' Laterial: 11.20 E/E' Lat: 4.10 Right Ventricle TAPSE (mm): 19.50 TVS' Jesus: 10.10 Tricuspid Valve TR Pk Jesus: 1.72 TR Pk Grad: 12.00 RA Press: 3.00 RVSP: 15.00 Great Vessels Aorta Sinus of Valsalva: 3.14 2.0-3.5 cm Ao Asc: 2.80 2.1-3.4 cm Updated in Other Vendor System with Status of Final Wolf Bacon MD electronically signed on 04/08/2024 3:58:47 PM with status of Final
[2024-04-08] MEDS: Fluticasone/Vilanterol 200/25 BLST.W.DEV 1 PUFF INHALE (07:48)
[2024-04-08] MEDS: Albuterol/Iprat 2.5/0.5MG 3 ML AMPUL.NEB INHALE (07:48)
[2024-04-08] MEDS: Tiotropium Bromide 2.5 mcg 1 PUFF/2.5 MCG MIST.INHAL 2 PUFF INHALE (07:48)
--- NOTE | 2024-04-08 08:48 | ECG_ITS ---
Test Reason : CP Blood Pressure : */* mmHG Vent. Rate : 157 BPM Atrial Rate : 314 BPM P-R Int : * ms QRS Dur : 82 ms QT Int : 212 ms P-R-T Axes : -88 65 252 degrees QTcB Int : 342 ms Probably Atrial flutter with 2:1 A-V conduction Nonspecific ST and T wave abnormality Abnormal ECG When compared with ECG of 08-Apr-2024 08:46, No significant changes seen Referred By: Kathy Shelton Electronically Signed By: PEDRO CAMPOS
[2024-04-08] MEDS: lisinopriL 10 MG TABLET PO (08:58)
[2024-04-08] MEDS: Ibuprofen 600 MG TABLET PO (08:58)
[2024-04-08] MEDS: Cholecalciferol (Vitamin D3) 25 MCG TABLET 50 MCG PO (08:58)
[2024-04-08] MEDS: Pregabalin 150 MG CAPSULE PO (08:58)
[2024-04-08] MEDS: oxyCODONE HCl Immed Release 5 MG TABLET PO ×2 (09:06→15:33)
[2024-04-08 09:17] LABS: Thyroid Stimulating Hormone 2.27 uIU/mL (0.32-4.0)
[2024-04-08] MEDS: levalbuterol HCL 2.5 MG, Ipratropium Bromide 0.5 MG INHALE ×2 (11:33→15:43)
--- NOTE | 2024-04-08 12:57 | MHC.CM.PN ---
Per MD rounds patient is ready to discharge today. Home self care, family transport.
--- NOTE | 2024-04-08 13:10 | PM.DS ---
DS: Providers Provider Date of Service: 04/08/24 Date of admission: 04/06/24 13:36 Date of discharge: 04/08/24 Primary care physician: Zev Sanders MD DS: Diagnosis Discharge Diagnosis (1) Pneumonia: Status: Acute (2) RSV (respiratory syncytial virus infection): Status: Acute (3) COPD exacerbation: Status: Acute (4) Sinus tachycardia: Status: Acute (5) Acute hypernatremia: Status: Acute DS: Summary Hospital Course Hospital Course: Admission note HPI A 53 years old lady with PMH of COPD, smoking, HTN, GERD, RUELAS among others presenting to the hospital with worsening SOB and dyspnea for 3 days. The patient was evaluated in the hospital 2 days ago and was discharged home as she improved with nebulizer and steroids. She did not feel well as she has been worsening overall with reported more SOB, dyspnea, cough, chills. No chest pain, palpitations, nausea, vomiting, diarrhea or urinary symptoms. In ED a CXR showing RLL infiltrates with increase respiratory rate and pulse. She will be admitted for close monitoring and treatment. Hospital course The patient was treated for reported RLL Pneumonia which failed OP antibiotics. Treated with IV Levaquin with good response as respiratory distress resolved along with leukocytosis. blood cultures remained negative. To finish total of 10 days of Antibitoics. She was also treated for COPD exacerbation secondary to RSV infection with Nebulizers, Steroids along with her Home inhalers . O2 weaned down to baseline of 2L her home baseline. she was able to ambulate with no reported dyspnea or SOB. Sinus tachycardia noticed on multiple occasions, asymptomatic, breif runs, normal TSH. likely related to acute illness and nebulizers usage with beta agonists. monitored on Tele with no abnormal rhythms. recovers back to 80s sinus HR without any intervention. Noted to have Hypernatremia which was corrected with drinking more water. Discharge plan Continue Levofloxacin for 7 more days Tapering dose Prednisone as prescribed Cough medicine as needed Use home Duo-Nebulizer every 6 hours for the next 3 days then as needed Come back to ER for any worsening breathing, fever Time Attestation Discharge Coordination Time (in mins): 38 Quality: Safe Use of Opioids Does Pt have an Active Cancer Diagnosis on the Problem List?: No Quality: Stroke Does the patient have a stroke diagnosis?: No Physical Exam Vital Signs: Vital Signs: Last Vital Signs Temp 97.5 F 04/08/24 11:47 Pulse 71 04/08/24 11:47 Resp 18 04/08/24 11:47 BP 111/64 04/08/24 11:47 Pulse Ox 98 04/08/24 11:47 O2 Del Method Nasal Cannula 04/08/24 11:47 O2 Flow Rate 3 04/08/24 11:47 BMI result Body Mass Index 20.4 Const: Other: Constitutional : Awake, interactive, not in distress, comfortable Neck : Normal inspection, Supple Cardiovascular : RRR, no JVP, no lower extremity edema Respiratory : improved bilateral air entry, no significant crackles, scattered fine wheezes, on 2L O2. Gastrointestinal: soft, lax, Normal bowel sounds, Non tender Skin : Warm, Dry Neurological : Alert & oriented x3, No focal deficit DS: Data Data Completed and Pending Labs on day of discharge: Laboratory Results - last 24 hr 04/07/24 04/08/24 20:48 07:23 Hold Purple Top SEE NOTE Troponin I High Sens < 2.7 TSH 2.27 Preliminary micro results at discharge 04/06/24 13:03 Blood Culture - Preliminary Blood - Venous No growth after 24 hours. 04/06/24 13:03 Blood Culture - Preliminary Blood - Venous No growth after 24 hours. Imaging Chest x-ray: Radiologist's impression: ITS Impressions Chest X-Ray 04/06/24 10:40 IMPRESSION: Improved aeration, right lung base/right middle lobe. Chronic interstitial lung disease and questionable COPD emphysematous type changes. Electronically signed by: Francis Connelly MD 04/06/2024 11:31 AM [facility] [place] Discharge Plan Discharge Anticipated Discharge Date/Time: 04/08/24 13:06 Patient Disposition: Home, Self-Care Discharge Diagnosis: Pneumonia RSV infection Referrals: Zev Sanders MD [Primary Care Provider] - 1 Week Discharge Medications: New benzonatate 100 mg Capsule 100 mg PO TID PRN (Reason: Cough) Qty: 20 0RF levofloxacin 750 mg tablet 750 mg PO DAILY Qty: 7 0RF prednisone 10 mg tablet See Taper PO DIRECTED Qty: 30 0RF Taper: Prednisone 40 mg daily for 3 Days and 0 Hour 30 mg daily for 3 Days and 0 Hour 20 mg daily for 3 Days and 0 Hour 10 mg daily for 3 Days and 0 Hour Rx Instructions: see taper instructions Continued lidocaine 5 % ointment 1 appl topical BID PRN (Reason: pain) Qty: 50 1RF albuterol sulfate 2.5 mg /3 mL (0.083 %) solution for nebulization 2.5 mg inhalation Q4-6H PRN (Reason: for wheezing) Qty: 180 2RF albuterol sulfate [Ventolin HFA] 90 mcg/actuation HFA aerosol inhaler 2 puff inhalation QID PRN (Reason: for wheezing) Qty: 18 3RF budesonide-formoterol [Symbicort] 160-4.5 mcg/actuation HFA aerosol inhaler 2 puff inhalation BID Qty: 10.2 3RF ipratropium-albuterol 0.5 mg-3 mg(2.5 mg base)/3 mL solution for nebulization 3 ml inhalation Q6-8H PRN (Reason: for wheezing) Qty: 360 1RF oxycodone 5 mg tablet 5 mg PO TID PRN (Reason: pain) 30 Days Qty: 90 0RF Rx Instructions: Partial Fill upon patient request. montelukast 10 mg tablet 10 mg PO BEDTIME Qty: 30 3RF lisinopril 10 mg tablet 1 tab PO DAILY pregabalin 150 mg Capsule 150 mg PO BID prednisone 50 mg tablet 50 mg PO DAILY Qty: 4 0RF ibuprofen 600 mg tablet 600 mg PO Q8H PRN (Reason: fever or pain) Qty: 20 0RF prednisone 5 mg tablet 5 mg PO DAILY Spiriva Respimat 2.5 mcg/actuation mist 2 puff inhalation DAILY quetiapine [Seroquel] 100 mg tablet 100 mg PO BEDTIME mirtazapine 45 mg tablet 45 mg PO BEDTIME ondansetron HCl 4 mg tablet 4 mg PO BID-TID PRN (Reason: nausea and vomiting) 14 Days Qty: 4 0RF esomeprazole magnesium 40 mg capsule,delayed release(DR/EC) 40 mg PO DAILY@0630 cholecalciferol (vitamin D3) 50 mcg (2,000 unit) tablet 50 mcg PO DAILY naloxone [Narcan] 4 mg/actuation spray,non-aerosol 4 mg intranasal Q2M PRN (Reason: opioid overdose) Qty: 2 0RF Rx Instructions: spray 1 dose into ONE nostril; alternate nostrils w each dose until help arrives Discontinued cefuroxime axetil 500 mg tablet 500 mg PO BID Qty: 14 0RF azithromycin 250 mg tablet 250 mg PO DAILY 4 Days Qty: 4 0RF Rx Instructions: start on day 2 of therapy Discharge Orders: Discharge Order (Routine); Ordered 04/08/24 Ordered By: Kathy Shelton Diet: Advance to usual diet Activity on Discharge: As tolerated Stand Alone Forms: Patient Portal Discharge page Print Language: Albanian Care Plan Goals: Continue Levofloxacin for 7 more days Tapering dose Prednisone as prescribed Cough medicine as needed Use home Duo-Nebulizer every 6 hours for the next 3 days then as needed Come back to ER for any worsening breathing, fever Health Concerns: RSV infection Pneumonia Plan of Treatment: Antibiotics, Steroids, Nebulizers Assessment: as above
--- NOTE | 2024-04-08 14:29 | P.CDIM_ITS ---
PROVIDER RESPONSE TEXT: To clarify, the appropriate diagnosis supported by the clinical indicators: After study Sepsis has been ruled out QUERY TEXT: PHYSICIAN'S DOCUMENTATION REQUEST Date of Query: 04/07/2024 11:34 AM EST Patient Name: Deysi Pfeiffer Admit Date: 04/06/2024 Dear Kathy Shelton MD, A review of the medical record indicates additional documentation may be needed. Please review below and update the documentation accordingly. Clinical indicators: H&P / - COPD exacerbation 2/2 RSV infection. RLL Pneumonia from COPD not due to Sepsis IV Levaquin The patient will need 2 overnight hospital stay for treatment of pneumonia, Sepsis, COPD exacerbation pending final cultures. WBC 11.4 RR 24 HR 114 LA 0.7 Levaquin, Doxycycline, Albuterol Sepsis Systemic manifestations of infection, with 2 or more SIRS criteria which include: Fever > 100.4?F or hypothermia < 96.8?F Leukocytosis - WBC > 12,000 or leukopenia, WBC < 4,000, or > 10% bands Tachycardia- > 90 beats/minute Tachypnea- RR > 20 breaths/minute or PaCO2 < 32mmHg Based on the above information and the recognized standard for sepsis, could you please clarify if th is diagnoses is still accurate and reflective of the patient's condition to ensure quality of the medical record. Sepsis is/was present and treated possible, resolved, probable etc. After study Sepsis has been ruled out Other (explain) Clinically unable to determine (explain) Thank you, Lou Escalante, CCS, CDIS Use of terms such as suspected, likely, concern for, or probable (associated with a specific diagnosi s that is being evaluated, monitored, or treated as if it exists) are acceptable and can be coded in the inpatient se tting, when documented at the time of discharge. Please use your independent medical judgment in providing your response. THIS QUERY IS PART OF THE PERMANENT MEDICAL RECORD
[2024-04-08] MEDS: methylPREDNISolone Sod Succ 40 MG/ML VIAL IVPUSH (14:46)
[2024-04-08] MEDS: Enoxaparin Sodium 40 MG/0.4 ML SYRINGE SUBCUT (14:46)
[2024-04-08] MEDS: levoFLOXacin 750 MG TABLET PO (15:35)
== END 2024-04-08 16:32 | disposition home or self-care (01) | DRG 140 ==
LOC: HO.ED 11:47 → HO.EDOVER 13:43 → HO.S3 16:32
PROVIDERS: Student in an Organized Health Care Education/Training Program; Admitting Provider Student in an Organized Health Care Education/Training Program; Emergency Provider Emergency Medicine; PCP Internal Medicine; Visit Provider Student in an Organized Health Care Education/Training Program
DX: J44.0 Chronic obstructive pulmonary disease with (acute) lower respiratory infection (principal); J18.9 Pneumonia, unspecified organism; E87.0 Hyperosmolality and hypernatremia; B97.4 Respiratory syncytial virus as the cause of diseases classified elsewhere; I47.19 Other supraventricular tachycardia; K75.81 Nonalcoholic steatohepatitis (NASH); K21.9 Gastro-esophageal reflux disease without esophagitis; F39 Unspecified mood [affective] disorder; J44.1 Chronic obstructive pulmonary disease with (acute) exacerbation; G89.29 Other chronic pain; Z79.52 Long term (current) use of systemic steroids; Z79.899 Other long term (current) drug therapy
CPT/HCPCS: 0241U; 36415; 71045; 80048; 80053; 82803; 83605; 83880; 84443; 84484; 85025; 87040; 93005; 93306; 94640; 99285; J1650; J1956; J2060; J2919; Q9957

== ENCOUNTER → 2024-04-06 10:40 | Outpatient (BNV) | payer MEDICAID, SELFPAY | PROVIDERS: Emergency Provider Emergency Medicine; PCP Internal Medicine; Visit Provider Radiology Diagnostic Radiology | DX: J84.9 Interstitial pulmonary disease, unspecified (principal); R05.9 Cough, unspecified | CPT/HCPCS: 71045 ==

== ENCOUNTER 2024-04-06 13:36 | Outpatient (BNV) | payer MEDICAID, SELFPAY | END 2024-04-07 20:08 | PROVIDERS: Admitting Provider Student in an Organized Health Care Education/Training Program; Emergency Provider Emergency Medicine; PCP Internal Medicine; Visit Provider Internal Medicine | DX: R94.31 Abnormal electrocardiogram [ECG] [EKG] (principal) | CPT/HCPCS: 93010 ==

== ENCOUNTER 2024-04-06 13:36 | Outpatient (BNV) | payer MEDICAID, SELFPAY | END 2024-04-08 07:00 | PROVIDERS: Admitting Provider Student in an Organized Health Care Education/Training Program; Emergency Provider Emergency Medicine; PCP Internal Medicine; Visit Provider Internal Medicine | DX: R94.31 Abnormal electrocardiogram [ECG] [EKG] (principal) | CPT/HCPCS: 93010 ==

== ENCOUNTER 2024-04-06 13:36 | Outpatient (BNV) | payer MEDICAID, SELFPAY | END 2024-04-06 14:50 | PROVIDERS: Admitting Provider Student in an Organized Health Care Education/Training Program; Emergency Provider Emergency Medicine; PCP Internal Medicine; Visit Provider Internal Medicine | DX: R06.02 Shortness of breath (principal) | CPT/HCPCS: 93010 ==

== ENCOUNTER → 2024-04-06 13:36 | Outpatient (BNV) | payer MEDICAID, SELFPAY | PROVIDERS: Admitting Provider Student in an Organized Health Care Education/Training Program; Emergency Provider Emergency Medicine; PCP Internal Medicine; Visit Provider Student in an Organized Health Care Education/Training Program | DX: J12.1 Respiratory syncytial virus pneumonia (principal); J44.1 Chronic obstructive pulmonary disease with (acute) exacerbation; R00.0 Tachycardia, unspecified; E87.0 Hyperosmolality and hypernatremia | CPT/HCPCS: 99223; 99232; 99239; 99499 ==

== ENCOUNTER 2024-04-16 13:25 | Outpatient (AMB) | payer MEDICAID, SELFPAY ==
--- NOTE | 2024-04-16 13:29 | MHC.OFFVIS ---
Vital Signs 04/16/24 13:45 Height 5 ft 3 in Weight 119 lb BMI 21.1 BP 130/79 Blood Pressure Location Lt brachial Position Sitting Pulse 92 Pulse Source Pulse Oximeter Pulse Oximetry (%) 96 Oxygen Delivery Method Nasal Cannula Oxygen Flow Rate 2 Intake Visit Reasons: Pill Count Intake Note: Deysi comes in today for a pill count to oxycodone, patient should have 54 tablets and presents with 66 tablets which she last took today 04/16/24 at 8am. Pain today 09/07 Patient resigned opioid contract in office today 04/16/24, copy of signed contract was given to patient. Braid Maker Required: No Accompanied by: Spouse Allergies Penicillins [PENICILLINS] Allergy (Severe, Verified 04/16/24 13:45) RASH seafood Allergy (Verified 04/16/24 13:45) Rash HPI Comments Details: Patient presents today for a pill count. She is supposed to have #54 pills in her possession and presents with #66 pills. This demonstrates a responsible attitude in regards to her opioid regimen. She reports reasonable analgesia on her current regime. Patient also takes pregabalin 150 mg BID, prescribed by her PCP. Pain is rated at 6/10 for lower back and SIJ pain with activities and cold weather. She was seen for Vascular evaluation in February for lower extremity pain related to varicose veins and has pending US of lower extremities next month. Patient denies any fever, chills, weight loss, abdominal or groin pain, constipation, urinary retention, sedation, nausea, vomiting, constipation, sedation, dizziness, or urinary retention. Patient is O2 dependent at 2L/min at rest and 3L/min w/ambulation continuous use for COPD. Reports recent COPD and asthma exacerbation due to URI with ER visits on 04/04/24 and 04/06/24 and was treated with antibiotics and prednisone with significant improvement in her symptoms. Patient also reports her daughter of 35 years old in January 2024. She sees Mental health therapist for depression, anxiety and grieving. She denies any SI/HI or hallucinations. Emotional support and active listing was provided to patient and her family. [facility] Medical History Current non-smoker but past smoking history unknown Respiratory failure with hypoxia COPD exacerbation Pre-op examination History of OCD (obsessive compulsive disorder) History of panic attacks Anxiety and depression Radiculopathy, lumbar region HTN (hypertension) Sacroiliitis COPD (chronic obstructive pulmonary disease) Asthma Allergic rhinitis Disc degeneration, lumbar Surgical History History of surgery History of appendectomy Hx of tonsillectomy Status post excision of lipoma History of tubal ligation Hx of excision of mass History of surgery History of laparoscopic cholecystectomy History of esophagogastroduodenoscopy (EGD) History of umbilical hernia repair History of incision and drainage Family History Family/Other Cervical cancer Family/Other Stomach cancer Social History Household Members: Significant Other and Family Household Members Other:: grandson Housing: House Do you presently have visiting nurse or other home services: No Alcohol intake: never Comment: Significant other bedside Patient Tobacco Use Status: Former Tobacco user Tobacco use type: Cigarette Substance Use Type: Marijuana Advance Directives Date on File: 04/06/24 service: No Current occupational status: unemployed Sexual orientation: Straight/Heterosexual Gender identity: Female Review of Systems Const All systems reviewed & are unremarkable except as noted in HPI and below Physical Exam General: Appears afebrile. No acute distress. Alert and oriented. Mood and affect appropriate. Pleasant. Follows and participates in conversation appropriately. Respiratory effort is unlabored. No cough. O2 at 3L/min continuos. Able to transition from sit to stand unassisted. Ambulates with antalgic gait, mild limping. Resp Effort & Inspection: normal respiratory effort, able to speak in complete sentences, no cough, not labored and no stridor Back/Spine/Pelvis Thoracic/Lumbar Spine: pain with thoraco-lumbar ROM, thoraco-lumbar ROM limited, No thoracic spinal tenderness and lumbar spinal tenderness at L4 and at L5 Sacroiliac joints: bilaterally tender to palpation Extrem General: Yes capillary refill normal, Yes no clubbing, cyanosis or edema and Yes no calf tenderness Psych Appearance: grossly normal and well kempt Mental Status: mental status grossly normal Speech and movement: Normal speech and movement present Affect: normal affect Attitude: cooperative Thought process: Normal thought process present Thought content: Normal thought content present, suicidality (none), no hallucinations and Depressive thoughts present Insight: Good insight present (Psych) Judgement: Good judgement present (Psych) Results Reviewed Results Reviewed: No imaging results are available for review today. 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 Category: Medical (2) Cervicalgia: Code(s): M54.2 - Cervicalgia Category: Medical (3) Disc degeneration, lumbar: Code(s): M51.36 - Other intervertebral disc degeneration, lumbar region Category: Medical (4) Spondylosis of lumbar region without myelopathy or radiculopathy: Code(s): M47.816 - Spondylosis without myelopathy or radiculopathy, lumbar region Category: Medical (5) Sacroiliitis: Code(s): M46.1 - Sacroiliitis, not elsewhere classified Category: Medical (6) Grieving: Code(s): F43.21 - Adjustment disorder with depressed mood Category: Medical Plan Patient has shown accountability for her medication regimen and the pill count was accurate. Masspat was reviewed and without concerns. No obvious signs of diversion, abuse or misuse of the opioid medications. Patient reports reasonable analgesia on current medication regime. Prescription sent for Oxycodone 5mg po TID prn with an advanced date of 05/06/24. Patient has Narcan script at home. She also takes pregabalin 150 mg BID prescribed by her PCP. Patient to follow-up in the office in one month for pill count and sooner as needed. Medications: Refilled oxycodone Partial Fill upon patient request. 5 mg PO TID 30 days PRN 90 tabs 0RF pain M46.1 - Sacroiliitis, not elsewhere classified, M47.816 - Spondylosis without myelopathy or radiculopathy, lumbar region, M51.36 - Other intervertebral disc degeneration, lumbar region Coding Level of Care Code Est Pt Level 4 (59748) Complex EM visit Add On G2211 Diagnoses Opioid contract exists Z79.891 Cervicalgia M54.2 Disc degeneration, lumbar M51.36 Spondylosis of lumbar region without myelopathy or radiculopathy M47.816 Sacroiliitis M46.1 Grieving F43.21
[2024-04-16 13:45] VITALS: BP 130/79; PULSE 92; O2SAT 96; BMI 21.1
== END 2024-04-16 13:53 | disposition home or self-care (01) ==
PROVIDERS: PCP Internal Medicine; Visit Provider Nurse Practitioner Family
DX: Z79.891 Long term (current) use of opiate analgesic (principal); M54.2 Cervicalgia; M51.369 Other intervertebral disc degeneration, lumbar region without mention of lumbar back pain or lower extremity pain; M47.816 Spondylosis without myelopathy or radiculopathy, lumbar region; M46.1 Sacroiliitis, not elsewhere classified; F43.21 Adjustment disorder with depressed mood
CPT/HCPCS: 99214

== ENCOUNTER → 2024-04-16 13:25 | Outpatient (BNVA) | payer MEDICAID, SELFPAY | PROVIDERS: PCP Internal Medicine; Visit Provider Nurse Practitioner Family | DX: Z51.81 Encounter for therapeutic drug level monitoring (principal); M54.2 Cervicalgia; M51.360 Other intervertebral disc degeneration, lumbar region with discogenic back pain only; M47.816 Spondylosis without myelopathy or radiculopathy, lumbar region; M46.1 Sacroiliitis, not elsewhere classified; F43.21 Adjustment disorder with depressed mood; Z79.891 Long term (current) use of opiate analgesic | CPT/HCPCS: 99212 ==

== ENCOUNTER 2024-04-21 14:27 | Emergency (ER) | payer MEDICAID, SELFPAY ==
--- NOTE | ~2024-04-21 | US_ITS ---
EXAMINATION: US TRIPLEX LOWER EXTREMITY, BILATERAL CLINICAL INFORMATION: Lower extremity pain times several days. COMPARISON: None available. TECHNIQUE: Color-flow triplex imaging with spectral analysis and compression Doppler were performed on the bilateral lower extremities. FINDINGS: Respiratory variation, normal compression and augmented flow are noted throughout the bilateral lower extremities. The visualized common femoral vein, superficial femoral vein, profunda femoral vein, popliteal vein and midcalf peroneal and posterior tibial venous segments show no evidence of deep venous thrombosis bilaterally. There is no Rossi's cyst. US/US venous duplex LE BI IMPRESSION: No evidence of deep venous thrombosis involving the bilateral lower extremities. Electronically signed by: Jim Smith MD 04/21/2024 04:20 PM JOANN
[2024-04-21 14:34] VITALS: BP 136/76; PULSE 82; RESP 16; TEMP 36.8; O2SAT 94; BMI 21.5
--- NOTE | 2024-04-21 14:35 | ED_ITS ---
HPI - General Adult General Chief complaint: Extremity Injury, Lower Stated complaint: Leg Swelling Back Pain No Injury Related Data Home Medications ?Medication ?Instructions ?Recorded ?Confirmed mirtazapine 45 mg tablet 45 mg PO BEDTIME 03/27/20 04/06/24 quetiapine 100 mg tablet (Seroquel) 100 mg PO BEDTIME 03/27/20 04/06/24 lisinopril 10 mg tablet 1 tab PO DAILY 09/29/20 04/06/24 pregabalin 150 mg capsule 150 mg PO BID 11/13/20 04/06/24 esomeprazole magnesium 40 mg 40 mg PO DAILY@0630 10/16/21 04/06/24 capsule,delayed release cholecalciferol (vitamin D3) 50 50 mcg PO DAILY 12/19/21 04/06/24 mcg (2,000 unit) tablet prednisone 5 mg tablet 5 mg PO DAILY 04/06/24 04/06/24 tiotropium bromide 2.5 2 puff inhalation DAILY 04/06/24 04/06/24 mcg/actuation mist for inhalation (Spiriva Respimat) Previous Rx's ?Medication ?Instructions ?Recorded ondansetron HCl 4 mg tablet 4 mg PO BID-TID PRN nausea and 12/20/21 vomiting 14 days #4 tabs lidocaine 5 % topical ointment 1 appl topical BID PRN pain #50 03/05/23 grams naloxone 4 mg/actuation nasal 4 mg intranasal Q2M PRN opioid 09/08/23 spray (Narcan) overdose #2 ea albuterol sulfate 2.5 mg/3 mL 2.5 mg (3 mL) inhalation Q4-6H PRN 10/06/23 (0.083 %) solution for nebulization for wheezing #180 mL albuterol sulfate 90 mcg/actuation 2 puff inhalation QID PRN for 02/23/24 aerosol inhaler (Ventolin HFA) wheezing #18 grams budesonide-formoterol HFA 160 2 puff inhalation BID #10.2 grams 03/01/24 mcg-4.5 mcg/actuation aerosol inhaler (Symbicort) ipratropium 0.5 mg-albuterol 3 mg 3 ml inhalation Q6-8H PRN for 03/15/24 (2.5 mg base)/3 mL nebulization wheezing #360 mL soln montelukast 10 mg tablet 10 mg PO BEDTIME #30 tabs 04/02/24 ibuprofen 600 mg tablet 600 mg PO Q8H PRN fever or pain 04/04/24 #20 tabs prednisone 50 mg tablet 50 mg PO DAILY #4 tabs 04/04/24 benzonatate 100 mg capsule 100 mg PO TID PRN Cough #20 caps 04/08/24 levofloxacin 750 mg tablet 750 mg PO DAILY #7 tabs 04/08/24 prednisone 10 mg tablet See Taper PO DIRECTED #30 tabs 04/08/24 oxycodone 5 mg tablet 5 mg PO TID PRN pain 30 days #90 04/16/24 tabs Allergies Allergy/AdvReac Type Severity Reaction Status Date / Time Penicillins [PENICILLINS] Allergy Severe RASH Verified 04/21/24 14:37 seafood Allergy Rash Verified 04/21/24 14:37 [facility] Past Medical History Medical History Current non-smoker but past smoking history unknown Respiratory failure with hypoxia COPD exacerbation Pre-op examination History of OCD (obsessive compulsive disorder) History of panic attacks Anxiety and depression Radiculopathy, lumbar region HTN (hypertension) Sacroiliitis COPD (chronic obstructive pulmonary disease) Asthma Allergic rhinitis Disc degeneration, lumbar Surgical History History of surgery History of appendectomy Hx of tonsillectomy Status post excision of lipoma History of tubal ligation Hx of excision of mass History of surgery History of laparoscopic cholecystectomy History of esophagogastroduodenoscopy (EGD) History of umbilical hernia repair History of incision and drainage Family History Family History Family/Other Cervical cancer Family/Other Stomach cancer Social History Social History Household Members: Significant Other and Family Household Members Other:: grandson Housing: House Do you presently have visiting nurse or other home services: No Alcohol intake: never Comment: Significant other bedside Patient Tobacco Use Status: Former Tobacco user Tobacco use type: Cigarette Substance Use Type: Marijuana Advance Directives Date on File: 04/06/24 service: No Current occupational status: unemployed Sexual orientation: Straight/Heterosexual Gender identity: Female Physical Exam ED Vital Signs: BMI result Body Mass Index 21.5 Course Course Course Narrative: This is a rapid medical exam performed by Karl Mueller NP: Additional HPI, ROS, PE not included below will be deferred to primary provider. Patient is a 53-year-old female with history of varicose veins, HTN, COPD on O2 @ baseline, asthma, RUELAS, on opioid contract presenting with complaint to bilateral calves for the past few days. Taking prescribed oxycodone for pain. Plan: labs, U/S Medical Decision Making Lab Data 04/21/24 15:22 04/21/24 15:22 Labs: Lab Results 04/21/24 Range/Units 15:22 WBC 11.6 H (4.8-10.8) X10*3/uL RBC 4.26 (4.20-5.50) X10*6/uL Hgb 12.4 (12.0-16.0) g/dl Hct 39.4 (37.0-47.0) % MCV 92.5 (80.0-98.0) fL MCH 29.1 (27.0-33.0) pg MCHC 31.5 (31.0-35.0) g/dl RDW 14.6 (11.0-16.0) % Plt Count 241 (160-400) X10*3/uL MPV 9.2 L (9.4-12.3) fL Immature Gran % (Auto) 0.6 H (0.0-0.4) % Neut % (Auto) 84.3 H (45-73) % Lymph % (Auto) 10.4 L (20-40) % [place] % (Auto) 3.6 (2-11) % Eos % (Auto) 0.4 (0-4) % Baso % (Auto) 0.7 (0-2) % Lymph # (Auto) 1.2 (1.2-4.9) X10*3/uL [place] # (Auto) 0.4 (0.1-1.2) X10*3/uL Eos # (Auto) 0.1 (0.0-0.4) X10*3/uL Baso # (Auto) 0.1 (0.0-0.2) X10*3/uL Abs Immat Gran (auto) 0.07 H (0.00-0.03) X10*3/uL Absolute Neuts (auto) 9.8 H (2.0-8.3) x10*3/uL Absolute Nucleated RBC 0.000 (0.0-0.012) X10*3/uL Nucleated RBC % (auto) 0.0 (0.0-0.2) /100WBC PT 10.9 (10.9-12.4) SEC INR 0.9 (0.9-1.1) Sodium 143 (135-145) mmol/L Potassium 4.9 D (3.3-5.1) mmol/L Chloride 103 (96-108) mmol/L Carbon Dioxide 33 H (22-29) mmol/L Anion Gap 12 (12-20) BUN 11 (9-16) mg/dL Creatinine 0.59 (0.5-1.4) mg/dL Estim Creat Clear Calc 95.2 Estimated GFR > 60 Random Glucose 116 H (60-115) mg/dL Calcium 9.1 (8.4-10.2) mg/dL Total Bilirubin 0.3 (0.0-1.0) mg/dL AST 17 (5-31) U/L ALT 14 (0-31) U/L Alkaline Phosphatase 66 (39-117) U/L Total Protein 6.6 (6.5-8.0) g/dL Albumin 3.9 (3.5-5.0) g/dL Discharge Plan Discharge Clinical Impression: Bilateral calf pain Patient Disposition: Left W/O Completing Treatment Prescriptions: No Action lidocaine 5 % ointment 1 appl topical BID PRN (Reason: pain) Qty: 50 1RF albuterol sulfate 2.5 mg /3 mL (0.083 %) solution for nebulization 2.5 mg inhalation Q4-6H PRN (Reason: for wheezing) Qty: 180 2RF albuterol sulfate [Ventolin HFA] 90 mcg/actuation HFA aerosol inhaler 2 puff inhalation QID PRN (Reason: for wheezing) Qty: 18 3RF budesonide-formoterol [Symbicort] 160-4.5 mcg/actuation HFA aerosol inhaler 2 puff inhalation BID Qty: 10.2 3RF ipratropium-albuterol 0.5 mg-3 mg(2.5 mg base)/3 mL solution for nebulization 3 ml inhalation Q6-8H PRN (Reason: for wheezing) Qty: 360 1RF montelukast 10 mg tablet 10 mg PO BEDTIME Qty: 30 3RF lisinopril 10 mg tablet 1 tab PO DAILY pregabalin 150 mg Capsule 150 mg PO BID prednisone 50 mg tablet 50 mg PO DAILY Qty: 4 0RF ibuprofen 600 mg tablet 600 mg PO Q8H PRN (Reason: fever or pain) Qty: 20 0RF prednisone 5 mg tablet 5 mg PO DAILY Spiriva Respimat 2.5 mcg/actuation mist 2 puff inhalation DAILY benzonatate 100 mg Capsule 100 mg PO TID PRN (Reason: Cough) Qty: 20 0RF levofloxacin 750 mg tablet 750 mg PO DAILY Qty: 7 0RF prednisone 10 mg tablet See Taper PO DIRECTED Qty: 30 0RF Taper: Prednisone 40 mg daily for 3 Days and 0 Hour 30 mg daily for 3 Days and 0 Hour 20 mg daily for 3 Days and 0 Hour 10 mg daily for 3 Days and 0 Hour Rx Instructions: see taper instructions quetiapine [Seroquel] 100 mg tablet 100 mg PO BEDTIME mirtazapine 45 mg tablet 45 mg PO BEDTIME ondansetron HCl 4 mg tablet 4 mg PO BID-TID PRN (Reason: nausea and vomiting) 14 Days Qty: 4 0RF esomeprazole magnesium 40 mg capsule,delayed release(DR/EC) 40 mg PO DAILY@0630 cholecalciferol (vitamin D3) 50 mcg (2,000 unit) tablet 50 mcg PO DAILY oxycodone 5 mg tablet 5 mg PO TID PRN (Reason: pain) 30 Days Qty: 90 0RF Rx Instructions: Partial Fill upon patient request. naloxone [Narcan] 4 mg/actuation spray,non-aerosol 4 mg intranasal Q2M PRN (Reason: opioid overdose) Qty: 2 0RF Rx Instructions: spray 1 dose into ONE nostril; alternate nostrils w each dose until help arrives Discharge Date/Time: 04/21/24 18:14
[2024-04-21 15:26] LABS: MANUAL DIFF FLAG NO
[2024-04-21 15:27] LABS: Basophils Absolute Auto 0.1 X10*3/uL (0.0-0.2); Basophils Percent Auto 0.7 % (0-2); Eosinophils Absolute Auto 0.1 X10*3/uL (0.0-0.4); Eosinophils Percent Auto 0.4 % (0-4); Hematocrit 39.4 % (37.0-47.0); Hemoglobin 12.4 g/dl (12.0-16.0); Imm Gran Abs Auto 0.07 X10*3/uL (0.00-0.03); Imm Gran Pct Auto 0.6 % (0.0-0.4); Lymphocytes Absolute Auto 1.2 X10*3/uL (1.2-4.9); Lymphocytes Percent Auto 10.4 % (20-40); Mean Corpuscular HGB Conc 31.5 g/dl (31.0-35.0); Mean Corpuscular Hemoglobin 29.1 pg (27.0-33.0); Mean Corpuscular Volume 92.5 fL (80.0-98.0); Mean Platelet Volume 9.2 fL (9.4-12.3); Monocytes Absolute Auto 0.4 X10*3/uL (0.1-1.2); Monocytes Percent Auto 3.6 % (2-11); Neutrophils Absolute Auto 9.8 x10*3/uL (2.0-8.3); Neutrophils Percent Auto 84.3 % (45-73); Platelet Count 241 X10*3/uL (160-400); Red Blood Count 4.26 X10*6/uL (4.20-5.50); Red Cell Distribution Width 14.6 % (11.0-16.0); White Blood Count 11.6 X10*3/uL (4.8-10.8)
[2024-04-21 15:51] LABS: Alanine Aminotransferase 14 U/L (0-31); Albumin Level 3.9 g/dL (3.5-5.0); Anion Gap 12 (12-20); Aspartate Amino Transferase 17 U/L (5-31); Bilirubin Total 0.3 mg/dL (0.0-1.0); Blood Urea Nitrogen 11 mg/dL (9-16); Calcium 9.1 mg/dL (8.4-10.2); Carbon Dioxide 33 mmol/L (22-29); Chloride 103 mmol/L (96-108); Creatinine Clr Calc Pharmacy 95.2; Estimated Glomerular Filt Rate > 60; Glucose Random 116 mg/dL (60-115); Potassium 4.9 mmol/L (3.3-5.1); Sodium 143 mmol/L (135-145); Total Protein 6.6 g/dL (6.5-8.0)
[2024-04-21 16:14] LABS: INTERNATIONAL NORM RATIO 0.9 (0.9-1.1); Prothrombin Time 10.9 SEC (10.9-12.4)
[2024-04-21 16:16] LABS: Alkaline Phosphatase 66 U/L (39-117)
--- OUTSIDE RECORDS SUMMARY | 2024-04-21 18:37 | XMS_ITS | Encounter Summary ---
Author Organization [employer] Address [address] [facility] [address]t [place] [address] Care Team Providers Care Customs Entry Clerk Name Role Phone Zev Sanders MD Primary Care Provider [phone] Encounter Details Date Type Department Care Team ([facility] Contact Info) Description 04/21/2024 Orders Only GENERIC EXTERNAL DATA DEPARTMENT Provider, Generic External Data Social History Tobacco Use Types Packs/Day Years Used Date Smoking Tobacco: Former Cigarettes 2019 Smokeless Tobacco: Never Alcohol Use Standard Drinks/Week Comments Never 0 (1 standard drink = 0.6 oz pur e alcohol) Depression Answer Date Recorded Patient Health Questionnaire-9 Score 7 10/14/2023 Patient Health Questionnaire-9 Score 7 10/14/2023 Last PHQ-9: Questionnaire Data Not on file 0 10/14/2023 Housing Stability Answer Date Recorded What is your housing situation today? I have kiran zavala 01/17/[address] you li ve. Do you have problems with any of the following? None of the above 01/17/2023 Food Insecurity Answer Date Recorded Within the past 12 months, y ou worried that your food would run out before you got money to buy more: Never True 01/17/2023 Within the past 12 months,th e food you bought just didn't last and you didn't have enough money to get more: Never True Transportation Answer Date Recorded In the past 12 months, has l ack of transportation kept you from medical appts, meetings, work or from getting things needed for daily living? No 01/17/2023 Utilities Answer Date Recorded In the past 12 months, has t he electric, gas, oil or water company threatened to shut off services in your home? Yes 01/05/2023 Depression Answer Date Recorded Patient Health Questionnaire-2 Score 1 10/14/2023 Comments Unknown Sex and Gender Information Value Date Recorded Sex Assigned at Female 01/28/2022 10:30 AM EDT Legal Sex Female 10:30 AM EDT Gender Identity Female 10/14/2023 1:26 PM EDT Sexual Orientation Straight 10/14/2023 1: 26 PM EDT documented as of this encounter Plan of Treatment Upcoming Encounters Date Type Department Care Team (Late st Contact Info) Description 04/29/2024 10:00 AM EST Office Visit [facility] CHC MED & PEDS [address] [place] [address] Zev Sanders MD [address] [place] [address] documented as of this encounter Procedures Procedure Name Priority Date/Time Associated Diagnosis Comments [facility] LOWER EXTREMITY VENOUS DUPLEX BILATERAL Routine 04/21/2024 3:56 PM EST CBC WITH AUTO DIFFERENTIAL Routine 04/21/2024 3:22 PM EST PROTHROMBIN TIME-INR Routine 04/21/2024 3:22 PM EST COMPREHENSIVE METABOLIC PANEL Routine 04/21/2024 3:22 PM EST documented in this encounter Results * [facility] Lower Extremity Venous Duplex Bilateral (04/21/2024 3:56 PM EST) 04/21/2024 3:56 PM EST Narrative [facility] - 04/21/2024 4:23 PM EST ? [facility] ?[address] ?[place] [address] ? Ultrasound Report ? Signed ? Patient: Adelia Izquierdo,Deysi D ?MR#: ?? [id number] ? : 1970 ?Acct:[id number] ? Age/Sex: 53 / F ?ADM Date: 01/22/25 ? Loc: HO.ED ? Attending Dr: ? Ordering Physician: Shila Mueller NP ?? Date of Service: 04/21/24 ?? Procedure(s): US venous duplex LE BI ?? Accession Number(s): [id number] ? cc: Zev Sanders MD; Sihla Mueller NP ? EXAMINATION: ?? US TRIPLEX LOWER EXTREMITY, BILATERAL ? CLINICAL INFORMATION: ?? Lower extremity pain times several days. ? COMPARISON: ?? None available. ? TECHNIQUE: ?? Color-flow triplex imaging with spectral analysis and compression ?? Doppler were performed on the bilateral lower extremities. ? FINDINGS: ?? Respiratory variation, normal compression and augmented flow are noted ?? throughout the bilateral lower extremities. The visualized common ?? femoral vein, superficial femoral vein, profunda femoral vein, ?? popliteal vein and midcalf peroneal and posterior tibial venous ?? segments show no evidence of deep venous thrombosis bilaterally. ? There is no Rossi's cyst. ? US/US venous duplex LE BI ?? IMPRESSION: ?? No evidence of deep venous thrombosis involving the bilateral lower ?? extremities. ? Electronically signed by: ??Jim Smith MD ??04/21/2024 04:20 PM EST RP ? Dictated By: ?Jim Smith MD ? Signed By: ?<Electronically signed by Jim Smith MD in OV> ?04/21/24 1620 ? DD/ 1556 ? TD/TT: 04/21/24 1612 ? Sand Filler: ? Procedure Note Elias, Image - 04/21/2024 [place] [address] Ultrasound Report Signed Patient: Deysi Pfeiffer DMR#: [id number] : 1970Acct:[id number] Age/Sex: 53 / FADM Date: 04/21/24 Loc: HO.ED Attending Dr: Ordering Physician: Shila Mueller NP Date of Service: 04/21/24 Procedure(s): US venous duplex LE BI Accession Number(s): [id number] cc: Zev Sanders MD; Shila Mueller NP EXAMINATION: US TRIPLEX LOWER EXTREMITY, BILATERAL CLINICAL INFORMATION: Lower extremity pain times several days. COMPARISON: None available. TECHNIQUE: Color-flow triplex imaging with spectral analysis and compression Doppler were performed on the bilateral lower extremities. FINDINGS: Respiratory variation, normal compression and augmented flow are noted throughout the bilateral lower extremities. The visualized common femoral vein, superficial femoral vein, profunda femoral vein, popliteal vein and midcalf peroneal and posterior tibial venous segments show no evidence of deep venous thrombosis bilaterally. There is no Rossi's cyst. US/US venous duplex LE BI IMPRESSION: No evidence of deep venous thrombosis involving the bilateral lower extremities. Electronically signed by: Jim Smith MD 04/21/2024 04:20 PM EST Dictated By: Jim Smith MD Signed By: <Electronically signed by Jim Smith MD in OV> 04/21/24 1620 DD/ 1556 TD/TT: 04/21/24 1612 Sand Filler: [facility] External Provider CV VASC ULAR PROCEDURES Final Result Performing Organization Address [facility] Co de Phone Number [facility] [address] [place] [phone] * Prothrombin Time-INR (04/21/2024 3:22 PM EST) Prothrombin Time 10.9 10.9 - 12.4 SEC [facility] INTERNATIONAL NORM RATIO 0.9 0.9 - 1.1 [facility] Comment:INTERNATIONAL NORMAL IZED RATIO (INR) REFERENCE RANGES Reference RangeFor patients not on anticoagulant therapy: 0.9 - 1.1INR ranges for oral anticoagulanttherapy:For prevention and treatment of venous thrombosis and pulmonary embolism: 2.0 - 3.0For acute myocardial infarction with aspirin therapy: 2.0 - 3.0For acute myocardial infarction without aspirin therapy: 3.0 - 4.0For patients with mechanical prosthetic heart valves: 2.5 - 3.5 04/21/2024 3:22 PM EST 04/21/2024 3:24 PM EST Generic External Data Provider LAB BLOOD ORDERAB LES Final Result Performing Organization Address [facility]/ZIP Co de Phone Number [facility] [address] [place] [address] [phone] * (ABNORMAL) Comprehensive Metabolic Panel (04/21/2024 3:22 PM EST) Sodium 143 135 - 145 mmol/L [facility] Potassium 4.9 3.3 - 5.1 mmol/L [facility] Chloride 103 96 - 108 mmol/L [facility] Carbon Dioxide 33(H) 22 - 29 mmol/L [facility] Anion Gap 12 12 - 20 [facility] Urea Nitrogen (BUN) 11 9 - 16 mg/dL [facility] Creatinine, Serum 0.59 0.5 - 1.4 mg/dL [facility] Creatinine Clr Calc Pharmacy 95.2 [facility] Comment:Provided height and weight: 162.56 cm,56.9 kg.eGFR (calculated from the MDRD study equation) and eCrCl(calculated from the Cockcroft-Gault equation) are based ondifferent parameters and may not yield comparable results.If eCrCl result is absurd, please check patient'sheight/weight. Estimated Glomerular Filt Rate >60 [facility] Comment:Chronic Kidney Disea se: Estimated GFR < 60 mL/min/[id number] Kidney Disease: Estimated GFR < 15 mL/min/1.73m2 Glucose 116(H) 60 - 115 mg/dL [facility] Calcium 9.1 8.4 - 10.2 mg/dL [facility] Bilirubin, Total 0.3 0.0 - 1.0 mg/dL [facility] Aspartate Amino Transferase 17 5 - 31 U/L [facility] Alanine Aminotransferase 14 0 - 31 U/L [facility] Total Protein 6.6 6.5 - 8.0 g/dL [facility] Albumin Level 3.9 3.5 - 5.0 g/dL [facility] Alkaline Phosphatase 66 39 - 117 U/L [facility] 04/21/2024 3:22 PM EST 04/21/2024 3:24 PM EST us Generic External Data Provider LAB BLOOD ORDERAB LES Final Result [facility] [address] [place], [place] [phone] * (ABNORMAL) CBC auto differential (04/21/2024 3:22 PM EST) White Blood Count 11.6(H) 4.8 - 10.8 X10*3/uL [facility] Red Blood Count 4.26 4.20 - 5.50 X10*6/uL [facility] Hemoglobin 12.4 12.0 - 16.0 g/dl [facility] Hematocrit 39.4 37.0 - 47.0 % [facility] Mean Corpuscular Volume 92.5 80.0 - 98.0 fL [facility] Mean Corpuscular Hemoglobin 29.1 27.0 - 33.0 pg [facility] Mean Corpuscular HGB Conc 31.5 31.0 - 35.0 g/dl [facility] Red Cell Distribution Width 14.6 11.0 - 16.0 % [facility] Platelet Count 241 160 - 400 X10*3/uL [facility] Mean Platelet Volume 9.2(L) 9.4 - 12.3 fL [facility] Neutrophils Percent Auto 84.3(H) 45 - 73 % [facility] Imm Gran Pct Auto 0.6(H) 0.0 - 0.4 % [facility] Lymphocytes Percent Auto 10.4(L) 20 - 40 % [facility] Monocytes Percent Auto 3.6 2 - 11 % [facility] Eosinophils Percent Auto 0.4 0 - 4 % [facility] Basophils Percent Auto 0.7 0 - 2 % [facility] NRBC Pct Auto 0.0 0.0 - 0.2 /100WBC [facility] Neutrophils Absolute Auto 9.8(H) 2.0 - 8.3 x10*3/uL [facility] Imm Gran Abs Auto 0.07(H) 0.00 - 0.03 X10*3/uL [facility] Lymphocytes Absolute Auto 1.2 1.2 - 4.9 X10*3/uL [facility] Monocytes Absolute Auto 0.4 0.1 - 1.2 X10*3/uL [facility] Eosinophils Absolute Auto 0.1 0.0 - 0.4 X10*3/uL [facility] Basophils Absolute Auto 0.1 0.0 - 0.2 X10*3/uL [facility] NRBC Abs Auto 0.000 0.0 - 0.012 X10*3/uL [facility] 04/21/2024 3:22 PM EST 04/21/2024 3:24 PM EST us Generic External Data Provider LAB BLOOD ORDERAB LES Final Result Performing Organization Address City/State/[facility] Co de Phone Number [facility] [address] [place] [address] [phone] documented in this encounter Visit Diagnoses Not on filedocumented in this encounter Additional Health Concerns Assessment Noted Time PHQ-9 Depression Total Score: 7 10/14/19 24 11:59 AM EDT documented as of this encounter Care Teams Customs Entry Clerk Relationship Specialty Start Date End Date Zev Sanders MD [address] [place] [phone] PCP - General Internal Medicine 11/16/19 documented as of this encounter
--- OUTSIDE RECORDS SUMMARY | 2024-04-21 18:37 | XMS_ITS | Encounter Summary ---
Author Organization [employer] Address [address] [facility] 7 [place] [address] Care Team Providers Care Advertising Rep Name Role Phone Zev Sanders MD Primary Care Provider [phone] Reason for Visit * Reason Onset Date Comments Nurse Triage 04/20/2024 Encounter Details Date Type Department Care Team ([facility] Contact Info) Description 04/20/[address] [facility] CHC MED & PEDS [address] [place], [place] [phone] Zev Sanders MD [address] [place] [phone] Nurse Triage Social History Tobacco Use Types Packs/Day Years [...] PM EDT documented as of this encounter Miscellaneous Notes * Telephone Encounter - Anika Veliz RN - 04/20/2024 2:34 PM EST T/C to pt who c/o bilateral LE edema from the knee down to her feet. Pt c/o redness and pain behindher knee for a few days. States that it hurts to walk. Pt denies sob. States she is on oxygen. Recommended immediate evaluation. Pt declines to come to [facility] and agrees to go to ED. * Telephone Encounter - Hilaria Chadwick - 04/20/2024 10:33 AM EST Symptom: Leg Swelling - Not From Injury Outcome: Schedule an appointment to be seen within 24 hours Reason: Caller denied all higher acuity questions The caller accepted this outcome. documented in this encounter Plan of Treatment Upcoming Encounters Date Type Department Care Team (Late st Contact Info) Description 04/29/2024 10:00 AM EST Office Visit [facility] MED & PEDS [address] [place] [address] Zev Sanders MD [address] [place], [place] [phone] documented as of this encounter Visit Diagnoses Not on filedocumented in this encounter Additional Health Concerns Assessment Noted Time PHQ-9 Depression Total Score: 7 10/14/19 24 11:59 AM EDT documented as of this encounter Care Teams Advertising Rep Relationship Specialty Start Date End Date Zev Sanders MD [address] [place] [phone] PCP - General Internal Medicine 11/16/19 documented as of this encounter
--- OUTSIDE RECORDS SUMMARY | 2024-04-21 18:37 | XMS_ITS | Encounter Summary ---
Author Organization [employer] [facility] Address [address] [place] [address] 7 [place] [address] Care Team Providers Care Plaster Block Layer Name Role Phone Zev Sanders MD Primary Care Provider [phone] Encounter Details Date Type Department Care Team ([facility] Contact Info) Description 10/22/2022 Orders Only [facility] MED & PEDS [address] [place], [place] [phone] Zev Sanders MD [address] [place], [place] [phone] Gastroenteritis (Primary Dx) Social History Tobacco Use Types Packs/Day Years Used Date Smoking Tobacco: Former Cigarettes 2019 Smokeless Tobacco: Never Alcohol Use Standard Drinks/Week Comments Never 0 (1 standard drink = 0.6 oz pur e alcohol) Comments Unknown Sex and Gender Information Value Date Recorded Sex Assigned at Female 01/28/2022 10:30 AM EDT Legal Sex Female 10:30 AM EDT Gender Identity Female 10/14/2023 1:26 PM EDT Sexual Orientation Straight 10/14/2023 1: 26 PM EDT documented as of this encounter Plan of Treatment Upcoming Encounters Date Type Department Care Team (Late Contact Info) Description 04/29/2024 10:00 AM EST Office Visit [facility] MED & PEDS [address] [place], [place] [phone] Zev Sanders MD [address] [place], [place] [phone] documented as of this encounter Visit Diagnoses Diagnosis Gastroenteritis- Primary Other and unspecified noninfectious gastroenteritis and colitis documented in this encounter Care Teams Plaster Block Layer Relationship Specialty Start Date End Date Zev Sanders MD [address] [place] [phone] PCP - General Internal Medicine 11/16/19 documented as of this encounter
--- OUTSIDE RECORDS SUMMARY | 2024-04-21 18:37 | XMS_ITS | Encounter Summary ---
Author Organization [employer] Address [address] [place] [address] [address] [place] [address] Care Team Providers Care Curriculum Counselor Name Role Phone Zev Sanders MD Primary Care Provider [phone] Reason for Visit * Reason Onset Date Comments Appointment Request 11/01/2022 Encounter Details Date Type Department Care Team ([facility] Contact Info) Description 11/01/2022 Telephone [facility] CHC MED & PEDS [address] [place], [place] [phone] Zev Sanders MD [address] [place] [address] Appointment Request Social History Tobacco Use Types Packs/Day Years [...] encounter Miscellaneous Notes * Telephone Encounter - Franck Myles - 11/01/2022 3:37 PM EDT Tc from pt requesting to r/s appt for PE on 10/24/2022. Please contact pt at [phone] documented in this encounter Plan of Treatment Upcoming Encounters Date Type Department Care Team (Late st Contact Info) Description 04/29/2024 10:00 AM EST Office Visit [facility] CHC MED & PEDS [address] [place] [address] Zev Sanders MD [address] [place] [address] documented as of this encounter Visit Diagnoses Not on filedocumented in this encounter Care Teams Curriculum Counselor Relationship Specialty Start Date End Date Zev Sanders MD [address] [place] [address] PCP - General Internal Medicine 11/16/19 documented as of this encounter
--- OUTSIDE RECORDS SUMMARY | 2024-04-21 18:37 | XMS_ITS | Clinical Summary ---
Author Organization [employer] Address [address] [address] [address] [place] [address] Care Team Providers Care Globe Mounter Name Role Phone Zev Sanders MD Primary Care Provider [phone] Allergies No known active allergies Medications pregabalin (Lyrica) 150 MG capsuleIndicati ons:Fibromyalgi a TAKE ONE CAPSULE TWICE DAILY IN THE MORNING AND AT BEDTIME 60 capsule 3 Active tiotropium (Spiriva Respimat) 2.5 MCG/ACT inhalerIndicati ons:COPD (chronic obstructive pulmonary disease) case management patient ([facility]) INHALE TWO PUFF BY MOUTH EVERY MORNING 4 g 5 3 Active cyclobenzaprine (Flexeril) 10 MG tablet Take 1 tablet (10 mg) by mouth 3 times daily for 10 days. 30 tablet 4 Active lisinopril 10 MG tablet TAKE ONE TABLET EVERY MORNING 90 tablet 1 4 Active esomeprazole (NexIUM) [address] capsule TAKE ONE CAPSULE EVERY MORNING 90 capsule 1 4 Active pregabalin (Lyrica) 150 MG capsuleIndicati ons:Chronic low back pain, unspecified back pain laterality, unspecified whether sciatica present TAKE ONE CAPSULE TWICE DAILY IN THE MORNING AND AT BEDTIME 60 capsule 4 Active cholecalciferol VITAMIN D (Vitamin D-3) 50 MCG (1999) tablet TAKE ONE TABLET EVERY MORNING 90 tablet 4 Active cholecalciferol (Vitamin D-3) 50 MCG (1999) tablet TAKE ONE TABLET BY MOUTH EVERY MORNING 90 tablet 3 4 024 Discontinued pregabalin (Lyrica) 150 MG capsuleIndicati ons:Chronic low back pain, unspecified back pain laterality, unspecified whether sciatica present TAKE ONE CAPSULE TWICE DAILY IN THE MORNING AND AT BEDTIME 60 capsule 024 Discontinued Active Problems Problem Noted Date Diagnosed Date Olecranon bursitis, right elbow 03/29/2022 Asthma-chronic obstructive p ulmonary disease overlap syndrome 12/19/2017 Chronic back pain 12/19/2017 Essential hypertension 12/19/2017 Menopausal symptom 12/19/2017 Migraine 12/19/2017 Mood disorder 12/19/2017 Seasonal allergies 12/19/2017 Tobacco dependence syndrome 12/19/2017 Encounters Date Type Department Care Team Description 04/21/2024 Orders Only GENERIC EXTERNAL DATA DEPARTMENT Provider, Generic External Data 04/21/2024 Patient Outreach [facility] [address] [place] [address] Zev Sanders MD Transition Of Care (Tcm) (HDF scheduled. ) 04/21/2024 Patient Outreach [facility] [address] [place] [address] Zev Sanders MD Pre-visit Planning (SDOH will need to be completed in office. ) 04/20/2024 Telephone [facility] [address] [place] [address] Zev Sanders MD Nurse Triage 04/14/2024 Patient Outreach [facility] [address] [place] [address] Zev Sanders MD Transition Of Care (Tcm) (HDF #2 attempt _ unable to lvm) 04/09/2024 Patient Outreach [facility] [address] [place] [address] Zev Sanders MD Transition Of Care (Tcm) (HDF- Not in service) 04/06/2024 Orders Only GENERIC EXTERNAL DATA DEPARTMENT Provider, Generic External Data 03/28/2024 Refill [facility] [address] [place] [address] Zev Sanders MD Chronic low back pain, unspecified back pain laterality, unspecified whether sciatica present 03/04/2024 Telephone [facility] [address] [place] [address] Zev Sanders MD [employer] Paperwork ot renew O2 03/01/2024 Refill [facility] [address] [place] [address] Zev Sanders MD Chronic low back pain, unspecified back pain laterality, unspecified whether sciatica present 02/03/2024 Refill [facility] [address] [place] [address] Zev Sanders MD Chronic low back pain, unspecified back pain laterality, unspecified whether sciatica present from Last 3 Months Immunizations Name Administration Dates Next Due Influenza injectable quadriv alent IIV4 with preservative 12/19/2017,12/27/2016,01/01/2016 Influenza injectable quadriv alent preservative free 01/23/2023 Influenza, IIV3, injectable 05/21/2014, 2,03/05/2011 Influenza, seasonal, injecta ble, preservative free 01/07/2015 Pneumococcal Polysaccharide PPSV23 12/19/2017 Tdap 04/29/2016 Social History Tobacco Use Types Packs/Day Years Used Date Smoking Tobacco: Former Cigarettes 2019 Smokeless Tobacco: Never Tobacco Cessation:Counseling Given: No Alcohol Use Standard Drinks/Week Comments Never 0 [...] Orientation Straight 10/14/2023 1: 26 PM EDT Last Filed Vital Signs Vital Sign Reading Time Taken Comments Blood Pressure 136/84 10/14/2023 11:08 AM EDT Pulse 83 10/14/2023 11:08 AM EDT Temperature 36.3 ??C (97.3 ??F) 10/14/2023 11:08 AM E DT Respiratory Rate 19 10/14/2023 11:08 AM EDT Oxygen Saturation 95% 10/14/2023 11:08 AM EDT Inhaled Oxygen Concentration - - Weight 51.7 kg (114 lb) 10/14/2023 11:08 AM EDT Height 161.3 cm (5' 3.5 ) 10/14/2023 11:08 AM ED T Body Mass Index 19.88 10/14/2023 11:08 AM EDT Plan of Treatment Upcoming Encounters Date Type Department Care Team (Late st Contact Info) Description 04/29/2024 10:00 AM EST Office Visit [facility] [address] [place] [address] Zev Sanders MD [address] [place] [address] Health Maintenance Due Date Last Done Comments CT Colonography 1970 Colonoscopy 1970 FIT 1970 FOBT 1970 HIV Screening 1970 Sigmoidoscopy 1970 Alcohol/Substance Use Screening 1982 Hepatitis A Vaccines (1 of 2 - Risk 2-dose series) 1989 Hepatitis B Vaccines (1 of 3 - 19+ 3-dose series) 1989 Pneumococcal Vaccine: Pediatrics (0 to 5 Years) and At-Risk Patients (6 to 64 Years) (2 of 2 - PCV) 12/19/2018 12/19/2017 Zoster Vaccines (1 of 2) 2020 SDOH Screening 10/17/2023 10/16/2022 Mammogram 10/18/2023 10/17/2021, 12/04/2017 COVID-19 Vaccine ( season) 2023 Influenza Vaccine (#1) 2023 , 12/19/2017, 12/27/2016, Additional history exists Depression Screening 10/13/2024 10/14/2023, 10/14/19 24 Tobacco Screening 10/13/2024 10/14/2023 Colorectal Cancer Screening 03/10/2026 FIT DNA/Cologuard 03/10/2026 03/10/2023 DTaP/Tdap/Td Vaccines (2 - Td or Tdap) 04/29/2026 04/29/2016 Lipid Panel 11/12/2026 11/12/2021 Cervical Cancer Screening 01/15/2027 HPV/Cotest 01/15/2027 01/15/2022, 12/29, 11/12/2021 Pap Smear 01/15/2027 01/15/2022, 11/12/2021 RSV Patients and Patients Aged 60 years or older (1 - 1-dose 75+ series) 2045 Hepatitis C Screening Completed 11/12/2021 HIB Vaccines Aged Out No longer eligi ble based on patient's age to complete this topic HPV Vaccines Aged Out No longer eligi ble based on patient's age to complete this topic IPV Vaccines Aged Out No longer eligi ble based on patient's age to complete this topic Meningococcal Vaccine Aged Out No adalberto carolyne eligible based on patient's age to complete this topic RSV under 20 months Aged Out No longe r eligible based on patient's age to complete this topic Rotavirus Vaccines Aged Out No longer eligible based on patient's age to complete this topic Procedures Procedure Name Priority Date/Time Associated Diagnosis Comments [facility] US LOWER EXTREMITY VENOUS DUPLEX BILATERAL Routine 04/21/2024 3:56 PM EST PROTHROMBIN TIME-INR Routine 04/21/2024 3:22 PM EST COMPREHENSIVE METABOLIC PANEL Routine 04/21/2024 3:22 PM EST CBC WITH AUTO DIFFERENTIAL Routine 04/21/2024 3:22 PM EST LACTIC ACID Routine 04/06/2024 1:03 PM EST VENOUS BLOOD GAS Routine 04/06/2024 11:0 5 AM EST XR CHEST 1 VIEW Routine 04/06/2024 10:40 AM EST LAB COLOGUARD?? COLON CANCER SCREEN Routine 03/10/2023 2:14 PM EST Screening for colon cancer ZZZ HISTORICAL HPV E6/E7 RFLX VANNESSA 16 18/45 Routine 01/15/2022 10:19 AM EDT HM PAP/HPV Routine 01/15/2022 ZZZ HISTORICAL HEPATITIS C AB W/REFL TO HCV RNA, QN, PCR Routine 11/12/2021 12:09 PM EDT LIPID PANEL, STANDARD Routine 11/12/2021 12:09 PM EDT MAMMOGRAM GENERIC Routine 10/17/2021 2:3 0 PM EDT from Last 3 Months or Most Recently Relevant to Health Maintenance Results * [facility] Lower Extremity Venous Duplex Bilateral (04/21/2024 3:56 PM EST) 04/21/2024 3:56 PM EST Narrative [facility] - 04/21/2024 4:23 PM EST ? [facility] ?[address] ?[place] [address] ? Ultrasound Report ? Signed ? Patient: Delvalle Izquierdo,Deysi D ?MR#: ?? [id number] ? : 1970 ?Acct:[id number] ? Age/Sex: 53 / F ?ADM Date: 04/21/24 ? Loc: HO.ED ? Attending Dr: ? Ordering Physician: Shila Mueller NP ?? Date of Service: 04/21/24 ?? Procedure(s): US venous duplex LE BI ?? Accession Number(s): [id number] ? cc: Zev Sanders MD; Shila Mueller NP ? EXAMINATION: ?? US TRIPLEX [...] DD/ 1556 ? TD/TT: 04/21/24 1612 ? Goat Herder: ? Procedure Note Elias, Image - 04/21/[address] [address] Ultrasound Report Signed Patient: Deysi Pfeiffer DMR#: [id number] : 1970Acct:[id number] Age/Sex: 53 / FADM Date: 04/21/24 Loc: HO.ED Attending Dr: Ordering Physician: Shila Mueller NP Date of Service: 04/21/24 Procedure(s): US venous duplex LE BI Accession Number(s): [id number] cc: Zev Sanders MD; Shila Mueller NP [...] 04/21/24 1620 DD/ 1556 TD/TT: 04/21/24 1612 Goat Herder: [facility] External Provider CV VASC ULAR PROCEDURES Final Result [facility] [address] [place] [address] [phone] * (ABNORMAL) CBC auto differential (04/21/2024 3:22 PM EST) White Blood Count 11.6(H) 4.8 - 10.8 X10*3/uL [facility] Red Blood Count 4.26 4.20 - 5.50 X10*6/uL [facility] Hemoglobin 12.4 12.0 - 16.0 g/dl [facility] Hematocrit 39.4 37.0 - 47.0 % [facility] Mean Corpuscular Volume 92.5 80.0 - 98.0 fL [facility] Mean Corpuscular Hemoglobin 29.1 27.0 - 33.0 pg [facility] Mean Corpuscular HGB Conc 31.5 31.0 - 35.0 g/dl [facility] Red Cell Distribution Width 14.6 11.0 - 16.0 % [facility] Platelet Count 241 160 - 400 X10*3/uL [facility] Mean Platelet Volume 9.2(L) 9.4 - 12.3 fL [facility] Neutrophils Percent Auto 84.3(H) 45 - 73 % [facility] Imm Gran Pct Auto 0.6(H) 0.0 - 0.4 % [facility] Lymphocytes Percent Auto 10.4(L) 20 - 40 % [facility] Monocytes Percent Auto 3.6 2 - 11 % [facility] Eosinophils Percent Auto 0.4 0 - 4 % [facility] Basophils Percent Auto 0.7 0 - 2 % [facility] NRBC Pct Auto 0.0 0.0 - 0.2 /100WBC [facility] Neutrophils Absolute Auto 9.8(H) 2.0 - 8.3 x10*3/uL [facility] Imm Gran Abs Auto 0.07(H) 0.00 - 0.03 X10*3/uL [facility] Lymphocytes Absolute Auto 1.2 1.2 - 4.9 X10*3/uL [facility] Monocytes Absolute Auto 0.4 0.1 - 1.2 X10*3/uL [facility] Eosinophils Absolute Auto 0.1 0.0 - 0.4 X10*3/uL [facility] Basophils Absolute Auto 0.1 0.0 - 0.2 X10*3/uL [facility] NRBC Abs Auto 0.000 0.0 - 0.012 X10*3/uL [facility] 04/21/2024 3:22 PM EST 04/21/2024 3:24 PM EST us Generic External Data Provider LAB BLOOD ORDERAB LES Final Result [facility] [address] [place] [address] [phone] * Prothrombin Time-INR (04/21/2024 3:22 PM EST) Prothrombin Time 10.9 10.9 - 12.4 SEC [facility] INTERNATIONAL NORM RATIO 0.9 0.9 - 1.1 [facility] Comment:INTERNATIONAL NORMAL IZED RATIO (INR) [...] Provider LAB BLOOD ORDERAB LES Final Result [facility] [address] [place] [address] [phone] * (ABNORMAL) Comprehensive Metabolic Panel (04/21/2024 3:22 PM EST) Pathologist [facility] Sodium 143 135 - 145 mmol/L [facility] Potassium 4.9 3.3 - 5.1 mmol/L [facility] Chloride 103 96 - 108 mmol/L [facility] Carbon Dioxide 33(H) 22 - 29 mmol/L [facility] Anion Gap 12 12 - 20 [facility] Urea Nitrogen (BUN) 11 9 - 16 mg/dL [facility] Creatinine, Serum 0.59 0.5 - 1.4 mg/dL [facility] Creatinine Clr Calc Pharmacy 95.2 [facility] Comment:Provided height and weight: 162.56 cm,56.9 kg.eGFR (calculated from the MDRD study equation) and eCrCl(calculated from the Cockcroft-Gault equation) are based ondifferent parameters and may not yield comparable results.If eCrCl result is absurd, please check patient'sheight/weight. Estimated Glomerular Filt Rate >60 [facility] Comment:Chronic Kidney Disea se: Estimated GFR < 60 mL/min/1.13d4Ujzwjf Kidney Disease: Estimated GFR < 15 mL/min/1.73m2 Glucose 116(H) 60 - 115 mg/dL [facility] Calcium 9.1 8.4 - 10.2 mg/dL [facility] Bilirubin, Total 0.3 0.0 - 1.0 mg/dL [facility] Aspartate Amino Transferase 17 5 - 31 U/L [facility] Alanine Aminotransferase 14 0 - 31 U/L [facility] Total Protein 6.6 6.5 - 8.0 g/dL [facility] Albumin Level 3.9 3.5 - 5.0 g/dL [facility] Alkaline Phosphatase 66 39 - 117 U/L [facility] 04/21/2024 3:22 PM EST 04/21/2024 3:24 PM EST us Generic External Data Provider LAB BLOOD ORDERAB LES Final Result Performing Organization Address [facility] Co de Phone Number [facility] [address] [place] [phone] * Lactic Acid (04/06/2024 1:03 PM EST) Lactic Acid 0.7 0.5 - 2.0 mmol/L [facility] 04/06/2024 1:03 PM EST 04/06/2024 1:07 PM EST [employer] External Data Provider LAB BLOOD ORDERAB LES Final Result Performing Organization Address [facility] Co de Phone Number [facility] [address] [place] [phone] * (ABNORMAL) VENOUS BLOOD GAS (04/06/2024 11:05 AM EST) VBG pH 7.43 7.32 - 7.43 [facility] Comment:METER #: [id number] additional_comment: Joshua thompson VBG PCO2 52 mmHg [facility] Comment:METER #: [id number] additional_comment: Joshua thompson VBG PO2 33 mmHg [facility] Comment:METER #: [id number] additional_comment: Joshua thompson VBG Base Excess 9.5 mmol/L [facility] Comment:METER #: [id number] additional_comment: Joshua thompson VBG HCO3 35(H) 22 - 26 mmol/L [facility] Comment:METER #: [id number] additional_comment: Joshua thompson O2 Sat, Lefty 55.0 % [facility] Comment:METER #: [id number] additional_comment: Joshua thompson 04/06/2024 11:0 5 AM EST 04/06/2024 11:13 AM EST us Generic External Data Provider LAB BLOOD ORDERAB LES Final Result [facility] [address] [place] [address] [phone] * XR Chest 1 View (04/06/2024 10:40 AM EST) Anatomical Region Laterality Modality Chest Radiographic Joy ging 04/06/2024 10:4 0 AM EST Narrative 04/06/2024 11:33 AM EST ? [facility] ?[address] ?[place] [address] ?XRay Report ? Signed ? Patient: Delvalle Izquierdo,Deysi D ?MR#: ?? [id number] ? : 1970 ?Acct:[id number] ? Age/Sex: 53 / F ?ADM Date: 01/07/25 ? Loc: HO.ED ? Attending Dr: ? Ordering Physician: Demetrius Valdivia MD ?? Date of Service: 04/06/24 ?? Procedure(s): XR chest 1V ?? Accession Number(s): [id number] ? cc: Zev Sanders MD; Demetrius Valdivia MD ? EXAMINATION: ?? XR CHEST ? CLINICAL INFORMATION: ?? cough ? COMPARISON: ?? X-ray dated April 04, 2024 ? TECHNIQUE: ?? Frontal view of the chest was obtained. ? FINDINGS: ?? Hyperinflated lungs. ?? Pulmonary reticular pattern. ?? Subtle patchy opacity, right lung base. ?? No pneumothorax. No pleural effusion. Heart and mediastinal silhouette ?? appears normal in size with calcified plaque aortic arch. Multilevel ?? thoracic and upper lumbar spondylosis. ? XR/XR chest 1V ?? IMPRESSION: ?? Improved aeration, right lung base/right middle lobe. ?? Chronic interstitial lung disease and questionable COPD emphysematous ?? type changes. ? Electronically signed by: ??Francis Connelly MD ??04/06/2024 11:31 AM ?? EST RP ? Dictated By: ?Francis Brannon MD ? Signed By: ?<Electronically signed by Francis Jaeger MD in OV> ? 04/06/24 1131 ? DD/ 1040 ? TD/TT: 04/06/24 1127 ? Goat Herder: ? Procedure Note Dontan, Image - 04/06/2024 [place] [address] XRay Report Signed Patient: Deysi Pfeiffer DMR#: [id number] : 1970Acct:[id number] Age/Sex: 53 / FADM Date: 04/06/24 Loc: HO.ED Attending Dr: Ordering Physician: Demetrius Valdivia MD Date of Service: 04/06/24 Procedure(s): XR chest 1V Accession Number(s): [id number] cc: Zev Sanders MD; Demetrius Valdivia MD EXAMINATION: XR CHEST CLINICAL INFORMATION: cough COMPARISON: X-ray dated April 04, 2024 TECHNIQUE: Frontal view of the chest was obtained. FINDINGS: Hyperinflated lungs. Pulmonary reticular pattern. Subtle patchy opacity, right lung base. No pneumothorax. No pleural effusion. Heart and mediastinal silhouette appears normal in size with calcified plaque aortic arch. Multilevel thoracic and upper lumbar spondylosis. XR/XR chest 1V IMPRESSION: Improved aeration, right lung base/right middle lobe. Chronic interstitial lung disease and questionable COPD emphysematous type changes. Electronically signed by: Francis Connelyl MD 04/06/2024 11:31 AM EST RP Dictated By: Francis Brannon MD Signed By: <Electronically signed by Francis Jaeger MDin OV> 04/06/24 1131 DD/ 1040 TD/TT: 04/06/24 1127 Goat Herder: [facility] External Provider IMG XR PROCEDURES Edited Result - Final * Cologuard?? colon cancer screening (03/10/2023 2:14 PM EST) Cologuard Result Negative Negative 03/21/20 1:56 AM EST [facility] (CLIA #:[id number]) Comment: NEGATIVE TEST RESULT. A negative Cologuard result indicates a low likelihood that a colorectal cancer (CRC) or advanced adenoma (adenomatous polyps with more advanced pre-malignant features) ??is present. The chance that a person with a negative Cologuard test has a colorectal cancer is less than 1 in 1500 (negative predictive value >99.9%) or has an ??advanced adenoma is less than ??5.3% (negative predictive value 94.7%). These data are based on a prospective cross-sectional study of 10,000 individuals at average risk for colorectal cancer who were screened with both Cologuard and colonoscopy. (Jorge Luis Robles al, N Engl J Med 2014;370(14):1286- 1297) The normal value (reference range) for this assay is negative. COLOGUARD RE-SCREENING RECOMMENDATION: Periodic colorectal cancer screening is an important part of preventive healthcare for asymptomatic individuals at average risk for colorectal cancer. ??Following a negative Cologuard result, the [employer] and U.S. Multi-Society Task Force screening guidelines recommend a Cologuard re-screening interval of 3 years. References: [employer] Guideline for Colorectal Cancer Screening: https://www.cancer.org/cancer/ayelv-uimqzh-oudybe/ropuxzlwh-monnuovgq-fphkewj/ac s-rec ommendations.html.; Edgar DK, Antonio CR, Salma CorderoK, Colorectal Cancer Screening: Recommendations for Physicians and Patients from the U.S. Multi-Society Task Force on Colorectal Cancer Screening , Am J Gastroenterology 2017; 112:5474-5223. TEST DESCRIPTION: Composite algorithmic analysis of stool DNA-biomarkers with hemoglobin immunoassay. ?? Quantitative values of individual biomarkers are not reportable and are not associated with individual biomarker result reference ranges. Cologuard is intended for colorectal cancer screening of adults of either sex, 45 years or older, who are at average-risk for colorectal cancer (CRC). Cologuard has been approved for use by the U.S. FDA. The performance of Cologuard was established in a cross sectional study of average-risk adults aged 50-84. Cologuard performance in patients ages 45 to 49 years was estimated by sub-group analysis of near-age groups. Colonoscopies performed for a positive result may find as the most clinically significant lesion: colorectal cancer [4.0%], advanced adenoma (including sessile serrated polyps greater than or equal to 1cm diameter) [20%] or non- advanced adenoma [31%]; or no colorectal neoplasia [45%]. These estimates are derived from a prospective cross-sectional screening study of 10,000 individuals at average risk for colorectal cancer who were screened with both Cologuard and colonoscopy. (Jorge Luis Robles al, N Engl J Med 2014;370(14):8326-1424.) Cologuard may produce a false negative or false positive result (no colorectal cancer or precancerous polyp present at colonoscopy follow up). A negative Cologuard test result does not guarantee the absence of CRC or advanced adenoma (pre-cancer). The current Cologuard screening interval is every 3 years. ([employer] [employer] and U.S. Multi-Society Task Force). Cologuard performance data in a 10,000 patient pivotal study using colonoscopy as the reference method can be accessed at the following location: www.[employer].Mimeo/results. Additional description of the Cologuard test process, warnings and precautions can be found at www.[employer]turn.Mimeo. Stool specimen (specimen) 03/10/2023 2:14 PM EST 03/12/2023 8:29 PM EST Zev Sanders MD LAB MOLECULAR DIAGNOSTICS O RDERABLES Final Result Performing Organization Address City/[facility]/ZIP Co de Phone Number [facility] (CLIA #:[id number]) [address] [place] [address], * HPV E6/E7 RFLX VANNESSA 16 18/45 (01/15/2022 10:19 AM EDT) HPV mRNA E6/E7 rflx Not Detected Not Detected [facility] Comment: Methodology: Inventory Associate And Driver-Mediated Amplification This assay detects E6/E7 viral messenger RNA (mRNA) from 14 high-risk HPV types (16,18,31,33,35,39,45,51,52,56,58,59,66,68). Cervical sources are required for HPV testing. If a vaginal source from a patient who has had a total hysterectomy with removal of cervix was submitted, please contact the testing laboratory for alternative testing options. For additional information, please refer to http://education.SmartHub/faq/SWB521a2 (This link if provided for information/ educational purposes only.) THIS TEST WAS PERFORMED AT: [email or web address] [address] [place] [address],[address] [place], [place] ??[phone] ESPERANZA CRUZ MD 01/15/2022 10:1 9 AM EDT Mario Alberto Morgan MD HISTORICAL/NON ORDERABLE LABS Fi nal Result Performing Organization Address [facility]/ZIP Co de Phone Number [facility] * Hm Pap Smear (01/15/2022) Historical Provider HEALTH MAINTENANCE Final Result * HEPATITIS C AB W/REFL TO HCV RNA, QN, PCR (11/12/2021 12:09 PM EDT) HEPATITIS C ANTIBODY NON-REACT JOSE MANUEL NON-REACT JOSE MANUEL [facility] INDEX 0.09 <1.00 [facility] Comment: ?? HCV antibody was non-reactive. There is no laboratory ?? evidence of HCV infection. ?? In most cases, no further action is required. However, if recent HCV exposure is suspected, a test for HCV RNA (test code 22854) is suggested. ?? For additional information please refer to http://[employer].SmartHub/faq/IVW41m4 (This link is being provided for informational/ educational purposes only.) ?? 11/12/2021 12:0 9 PM EDT us Zev Sanders MD HISTORICAL/NON ORDERABLE SOHA CERON Final Result [facility] [address] * (ABNORMAL) LIPID PANEL, STANDARD (11/12/2021 12:09 PM EDT) Chol/HDLC Ratio 3.3 <5.0 (calc) [facility] Cholesterol, Total 185 <200 mg/dL [facility] HDL Cholesterol 56 > OR = 50 mg/dL [facility] LDL Cholesterol 107(H) mg/dL (calc) [facility] Comment: Reference range: <100 ?? Desirable range <100 mg/dL for primary prevention; ?? <70 mg/dL for patients with CHD or diabetic patients ?? with > or = 2 CHD risk factors. ?? LDL-C is now calculated using the Hilario-Valdes ?? calculation, which is a validated novel method providing ?? better accuracy than the Friedewald equation in the ?? estimation of LDL-C. ?? Hilario MOON et al. JUANA. 2013;310(19): 3839-3508 ?? (http://education.GOPOP.TV.Mimeo/faq/JAT012) Non-HDL Cholesterol 129 <130 mg/dL (calc) [facility] Comment: For patients with diabetes plus 1 major ASCVD risk ?? factor, treating to a non-HDL-C goal of <100 mg/dL ?? (LDL-C of <70 mg/dL) is considered a therapeutic ?? option. Triglycerides 120 <150 mg/dL [facility] 11/12/2021 12:0 9 PM EDT us Zev Sanders MD LAB BLOOD ORDERABLES Final Result [facility] [address] [place] [address], * Mammography Report 1 (10/17/2021 2:30 PM EDT) Anatomical Region Laterality Modality Breast Bilateral Mammography 10/17/2021 2:30 PM EDT Narrative 10/18/2021 2:58 PM EDT Refer to the Notes tab for result details [facility] Procedure: Mammography Report 1 Procedure Note Provider, MD Josh - 06/23/2022 Refer to the Notes tab for result details Legacy Procedure: Mammography Report 1 us Zev Sanders MD IMG BI PROCEDURES Final Res ult from Last 3 Months or Most Recently Relevant to Health Maintenance Insurance Care Teams Globe Mounter Relationship Specialty Start Date End Date Zev Sanders MD [address] [place] [id number] PCP - General Internal Medicine 11/16/19
--- OUTSIDE RECORDS SUMMARY | 2024-04-21 18:37 | XMS_ITS | Encounter Summary ---
Author Organization [employer] Address 75 [facility] 7 [place] [address] Care Team Providers Care Maintenance Planning Clerk Name Role Phone Zev Sanders MD Primary Care Provider [phone] Reason for Visit * Reason Comments Transition Of Care (Tcm) HDF scheduled. Encounter Details Date Type Department Care Team ([facility] Contact Info) Description 04/21/2024 Patient Outreach [facility] MED & PEDS [address] [place], [place] [phone] Zev Sanders MD [address] [place] [address] Transition Of Care (Tcm) (HDF scheduled. ) Social History Tobacco Use Types Packs/Day Years [...] as of this encounter Miscellaneous Notes * Significant Event - Dayna Coulter - 04/21/2024 3:12 PM EST 04/21/24 1510 Hospital Discharges and Admission for [facility] Type of Visit Hospital Admission Date of Admission/Visit 04/04/24 Date of Discharge 04/06/24 Facility [facility] Diagnosis Dyspnea Disposition Discharged Home Follow-Up Actions Follow-Up Needed Provider appointment Follow-Up Outcome Spoke to Patient;Booked Appointment Initial Contact Date 04/21/24 HERIBERTO Hatfield placed outbound call to patient for HDF outreach. Patient's name and were confirmed. Patient educated on the importance of follow up with provider following inpatient admission. Patient offered an HDF appt. Patient is agreeable to an appointment and has been scheduled for 04/29 at1:30pm with Dr. Sanders. Patient provided with education on contacting the Health Center with any questions or concerns prior to the scheduled appointment. Patient educated on extended clinic hours on Mondays and Wednesdays, and Walk-In Urgent Care Located in [facility]. Patient provided with after-hours line for [facility], , which offer night time triage service and option to transfer to library consultant provider if needed. CC scanned discharge summary into patient's chart. Biggest concern forappointment at this time is no concerns. Appropriate screenings completed in anticipation of appointment. documented in this encounter Plan of Treatment Upcoming Encounters Date Type Department Care Team (Late st Contact Info) Description 04/29/2024 10:00 AM EST Office Visit [facility] MED & PEDS [address] [place] [address] Zev Sanders MD [address] [place] [address] documented as of this encounter Visit Diagnoses Not on filedocumented in this encounter Additional Health Concerns Assessment Noted Time PHQ-9 Depression Total Score: 7 10/14/19 24 11:59 AM EDT documented as of this encounter Care Teams Maintenance Planning Clerk Relationship Specialty Start Date End Date Zev Sanders MD [address] [place] [address] PCP - General Internal Medicine 11/16/19 documented as of this encounter
--- OUTSIDE RECORDS SUMMARY | 2024-04-21 18:37 | XMS_ITS | Encounter Summary ---
Author Organization [employer] Address 75 [facility] 7 [place] [address] Care Team Providers Care Hassock Maker Name Role Phone Zev Sanders MD Primary Care Provider [phone] Reason for Visit * Reason Comments Transition Of Care (Tcm) HDF #2 attempt _ unable to lvm Encounter Details Date Type Department Care Team ([facility] Contact Info) Description 04/14/2024 Patient Outreach [facility] [address] [place] [address] Zev Sanders MD [address] [place] [address] Transition Of Care (Tcm) (HDF #2 attempt _ unable to lvm) Social History Tobacco Use Types Packs/Day Years [...] encounter Miscellaneous Notes * Significant Event - Fabiola Mcclure - 04/14/2024 2:38 PM EST 04/14/24 1437 Hospital Discharges and Admission for [facility] Type of Visit Hospital Admission Date of Admission/Visit 04/06/24 Date of Discharge 04/08/24 Facility [facility] Diagnosis Pnuemonia , RSV Disposition Discharged Home Follow-Up Actions Follow-Up Needed Provider appointment Follow-Up Outcome No Answer/No VM Initial Contact Date 04/14/24 HERIBERTO Sood placed outbound call to patient for HDF outreach. CC placing call to offer patient with an HDF appointment with provider. No answer at this time. Patient's name and were not confirmed. CC was unable to leave a voicemail at this time. documented in this encounter Plan of Treatment Upcoming Encounters Date Type Department Care Team (Late st Contact Info) Description 04/29/2024 10:00 AM EST Office Visit [facility] [address] [place], [place] [phone] Zev Sanders MD [address] [place] [address] documented as of this encounter Visit Diagnoses Not on filedocumented in this encounter Additional Health Concerns Assessment Noted Time PHQ-9 Depression Total Score: 7 10/14/19 24 11:59 AM EDT documented as of this encounter Care Teams Hassock Maker Relationship Specialty Start Date End Date Zev Sanders MD [address] [place] [address] PCP - General Internal Medicine 11/16/19 documented as of this encounter
--- OUTSIDE RECORDS SUMMARY | 2024-04-21 18:37 | XMS_ITS | Encounter Summary ---
Author Organization [employer] [facility] Address 75 [facility] 7 [place] [address] Care Team Providers Care Coffee Machine Technician Name Role Phone Zev Sanders MD Primary Care Provider [phone] Encounter Details Date Type Department Care Team ([facility] Contact Info) Description 12/24/2022 Orders Only [facility] MEDICINE [address] [place] [address] Provider, MD Josh Social History Tobacco Use Types Packs/Day Years [...] Upcoming Encounters Date Type Department Care Team ([facility] Contact Info) Description 04/29/2024 10:00 AM EST Office Visit [facility] MED & PEDS [address] [place], [place] [phone] Zev Sanders MD [address] [place] [address] documented as of this encounter Procedures Procedure Name Priority Date/Time Associated Diagnosis Comments HM PAP/HPV Routine 01/15/2022 documented in this encounter Results * Hm Pap Smear (01/15/2022) Historical Provider HEALTH MAINTENANCE Final Result documented in this encounter Visit Diagnoses Not on filedocumented in this encounter Care Teams Coffee Machine Technician Relationship Specialty Start Date End Date Zev Sanders MD [address] [place] [address] PCP - General Internal Medicine 11/16/19 documented as of this encounter
--- OUTSIDE RECORDS SUMMARY | 2024-04-21 18:37 | XMS_ITS | Encounter Summary ---
Author Organization [employer] Address 75 [facility] 7t [place] [address] Care Team Providers Care Graphic Engineer Name Role Phone Zev Sanders MD Primary Care Provider [phone] Encounter Details Date Type Department Care Team ([facility] Contact Info) Description 07/21/2023 Orders Only [facility] MED & PEDS [address] [place], [place] [phone] Zev Sanders MD [address] [place] [address] Social History Tobacco Use Types Packs/Day Years Used Date Smoking Tobacco: Former Cigarettes 2019 Smokeless Tobacco: Never Alcohol Use Standard Drinks/Week Comments Never 0 (1 standard drink = 0.6 oz pur e alcohol) Housing Stability Answer Date Recorded What is [...] off services in your home? Yes 01/05/2023 Comments Unknown Sex and Gender Information Value Date Recorded Sex Assigned at Female 01/28/2022 10:30 AM EDT Legal Sex Female 10:30 AM EDT Gender Identity Female 10/14/2023 1:26 PM EDT Sexual Orientation Straight 10/14/2023 1: 26 PM EDT documented as of this encounter Plan of Treatment Upcoming Encounters Date Type Department Care Team ([facility] st Contact Info) Description 04/29/2024 10:00 AM EST Office Visit [facility] MED & PEDS [address] [place] [address] Zev Sanders MD [address] [place] [address] documented as of this encounter Visit Diagnoses Not on filedocumented in this encounter Care Teams Graphic Engineer Relationship Specialty Start Date End Date eZv Sanders MD [address] [place] [address] PCP - General Internal Medicine 11/16/19 documented as of this encounter
--- OUTSIDE RECORDS SUMMARY | 2024-04-21 18:37 | XMS_ITS | Encounter Summary ---
Author Organization [employer] Address 75 [facility] 7t [place] [address] Care Team Providers Care Classification Analyst Name Role Phone Zev Sanders MD Primary Care Provider [phone] Reason for Visit * Reason Onset Date Comments Med Refill 07/21/2023 Encounter Details Date Type Department Care Team ([facility] st Contact Info) Description 07/21/2023 Telephone [facility] MEDICINE [address] [place] [address] Zev Sanders MD [address] [place] [address] Med Refill Social History Tobacco Use Types Packs/Day Years [...] encounter Miscellaneous Notes * Telephone Encounter - Dalton Soto - 07/21/2023 1:48 PM EDT TC from pt requesting medication refill. Medications needing refill : pregabalin (Lyrica) 150 MG capsule To be sent to: [facility] - [place], [place] - [address] [place] [address] documented in this encounter Plan of Treatment Upcoming Encounters Date Type Department Care Team ([facility] st Contact Info) Description 04/29/2024 10:00 AM EST Office Visit [facility] MED & PEDS [address] [place] [address] Zev Sanders MD [address] [place] [address] documented as of this encounter Visit Diagnoses Not on filedocumented in this encounter Care Teams Classification Analyst Relationship Specialty Start Date End Date Zev Sanders MD [address] [place] [address] PCP - General Internal Medicine 11/16/19 documented as of this encounter
--- OUTSIDE RECORDS SUMMARY | 2024-04-21 18:37 | XMS_ITS | Encounter Summary ---
Author Organization [employer] Address 75 [facility] 7 [place] [address] Care Team Providers Care Custodial Aide Name Role Phone Zev Sanders MD Primary Care Provider [phone] Reason for Visit * Reason Comments Pre-visit Planning SDOH will need to be completed in office. Encounter Details Date Type Department Care Team ([facility] Contact Info) Description 04/21/[address] [facility] MED & PEDS [address] [place], [place] [phone] Zev Sanders MD [address] [place] [address] Pre-visit Planning (SDOH will need to be completed in office. ) Social History Tobacco Use Types Packs/Day [...] PM EDT documented as of this encounter Progress Notes * Dayna Coulter - 04/21/2024 2:55 PM EST HERIBERTO Hatfield placed successful outbound call to patient for pre-visit planning. Patient name and confirmed. CC cancelled appointment and scheduled patient for HDF after patient informed she was admitted for three days due to pneumonia. documented in this encounter Plan of Treatment Upcoming Encounters Date Type Department Care Team (Late st Contact Info) Description 04/29/2024 10:00 AM EST Office Visit [facility] MED & PEDS [address] [place] [address] Zev Sanders MD [address] [place] [address] documented as of this encounter Visit Diagnoses Not on filedocumented in this encounter Additional Health Concerns Assessment Noted Time PHQ-9 Depression Total Score: 7 10/14/19 24 11:59 AM EDT documented as of this encounter Care Teams Custodial Aide Relationship Specialty Start Date End Date Zev Sanders MD [address] [place] [address] PCP - General Internal Medicine 11/16/19 documented as of this encounter
--- OUTSIDE RECORDS SUMMARY | 2024-04-21 18:37 | XMS_ITS | Encounter Summary ---
Author Organization [employer] [facility] Address [address] [place] [address], [place] [address] Care Team Providers Care Cycle Director Name Role Phone Zev Sanders MD Primary Care Provider [phone] Reason for Visit * Reason Comments Med Refill Encounter Details Date Type Department Care Team (Late Contact Info) Description 11/05/2022 Refill [facility] MED & PEDS [address] [place] [address] Zev Sanders MD [address] [place], [place] [phone] Chronic low back pain, unspecified back pain laterality, unspecified whether sciatica present Social History Tobacco Use Types Packs/Day Years [...] Description 04/29/2024 10:00 AM EST Office Visit [facility] MED & PEDS [address] [place] [address] Zev Sanders MD [address] [place], [place] [phone] documented as of this encounter Visit Diagnoses Diagnosis Chronic low back pain, unspecified back pain laterality, unspecified whether sciatica present documented in this encounter Care Teams Cycle Director Relationship Specialty Start Date End Date Zev Sanders MD [address] [place] [address] PCP - General Internal Medicine 11/16/19 documented as of this encounter
--- OUTSIDE RECORDS SUMMARY | 2024-04-21 18:37 | XMS_ITS | Encounter Summary ---
Author Organization [employer] Address 75 [facility] 7t [place] [address] Care Team Providers Care Detonator Maker Name Role Phone Zev Sanders MD Primary Care Provider [phone] Reason for Visit * Reason Comments Med Refill Encounter Details Date Type Department Care Team ([facility] Contact Info) Description 03/28/2024 Refill [facility] MED & PEDS [address] [place], [place] [phone] Zev Sanders MD [address] [place] [address] Chronic low back pain, unspecified back pain [...] enough money to get more: Never True 10/ Transportation Answer Date Recorded In the past [...] [facility] MED & PEDS [address] [place] [address] Zev Sanders MD [address] [place] [address] documented as of this encounter Visit Diagnoses Diagnosis Chronic low back pain, unspecified back pain laterality, unspecified whether sciatica present documented in this encounter Additional Health Concerns Assessment Noted Time PHQ-9 Depression Total Score: 7 10/14/19 24 11:59 AM EDT documented as of this encounter Care Teams Detonator Maker Relationship Specialty Start Date End Date Zev Sanders MD 505 [place] [address] PCP - General Internal Medicine 11/16/19 documented as of this encounter
--- OUTSIDE RECORDS SUMMARY | 2024-04-21 18:37 | XMS_ITS | Encounter Summary ---
Author Organization [employer] Address 75 [facility] 7 [place] [address] Care Team Providers Care Ux Researcher Name Role Phone Zev Sanders MD Primary Care Provider [phone] Reason for Visit * Reason Comments Transition Of Care (Tcm) HDF- Not in ser vice Encounter Details Date Type Department Care Team ([facility] st Contact Info) Description 04/09/2024 Patient Outreach [facility] MED & PEDS [address] [place], [place] [phone] Zev Sanders MD [address] [place] [address] Transition Of Care (Tcm) (HDF- Not in service) Social History Tobacco Use Types Packs/Day Years [...] * Significant Event - Fabiola Mcclure - 04/12/2024 8:59 AM EST 04/12/24 0857 Hospital Discharges and Admission for [facility] Type of Visit Hospital Admission Date of Admission/Visit 04/06/24 Date of Discharge 04/08/24 Facility [facility] Diagnosis Pneumonia , RSV Disposition Discharged Home Follow-Up Actions Follow-Up Needed Provider appointment Follow-Up Outcome Disconnected Phone Initial Contact Date 04/09/24 CC Fabiola Sood placed outbound call to patient for HDF outreach. CC placing call to offer patient with an HDF appointment with provider. No answer at this time. Patient's name and were not confirmed. CC was unable to leave a voicemail at this time. Will place an additional outreach call within 2-5 business days. documented in this encounter Plan of Treatment Upcoming Encounters Date Type Department Care Team (Late st Contact Info) Description 04/29/2024 10:00 AM EST Office Visit [facility] MED & PEDS [address] [place] [address] Zev Sanders MD [address] [place] [address] documented as of this encounter Visit Diagnoses Not on filedocumented in this encounter Additional Health Concerns Assessment Noted Time PHQ-9 Depression Total Score: 7 10/14/19 24 11:59 AM EDT documented as of this encounter Care Teams Ux Researcher Relationship Specialty Start Date End Date Zev Sanders MD [address] [place] [address] PCP - General Internal Medicine 11/16/19 documented as of this encounter
--- OUTSIDE RECORDS SUMMARY | 2024-04-21 18:37 | XMS_ITS | Encounter Summary ---
Author Organization [employer] Address 75 [facility] 7t [place] [address] Care Team Providers Care Bead Supervisor Name Role Phone Zev Sanders MD Primary Care Provider [phone] Encounter Details Date Type Department Care Team ([facility] Contact Info) Description 04/06/2024 Orders Only GENERIC EXTERNAL DATA DEPARTMENT [...] Description 04/29/2024 10:00 AM EST Office Visit [facility] PEDS [address] [place] [address] Zev Sanders MD [address] [place], [place] [phone] documented as of this encounter Procedures Procedure Name Priority Date/Time Associated Diagnosis Comments LACTIC ACID Routine 04/06/2024 1:03 PM EST VENOUS BLOOD GAS Routine 04/06/2024 11:0 5 AM EST XR CHEST 1 VIEW Routine 04/06/2024 10:40 AM EST documented in this encounter Results * Lactic Acid (04/06/2024 1:03 PM EST) Lactic Acid 0.7 0.5 - 2.0 mmol/L [facility] 04/06/2024 1:03 PM EST 04/06/2024 1:07 PM EST us Generic External Data Provider LAB BLOOD ORDERAB LES Final Result [facility] [address] [place] [address] [phone] * (ABNORMAL) VENOUS BLOOD GAS (04/06/2024 11:05 AM EST) VBG pH 7.43 7.32 - 7.43 [facility] Comment:METER #: [id number] additional_comment: Cb thompson VBG PCO2 52 mmHg [facility] Comment:METER #: [id number] additional_comment: Joshua thompson VBG PO2 33 mmHg [facility] Comment:METER #: [id number] additional_comment: Joshua thompson VBG Base Excess 9.5 mmol/L [facility] Comment:METER #: [id number] additional_comment: Joshua thompson VBG HCO3 35(H) 22 - 26 mmol/L [facility] Comment:METER #: [id number] additional_comment: Joshua thompson O2 Sat, Lefty 55.0 % [facility] Comment:METER #: [id number] additional_comment: Cb jay 04/06/2024 11:0 5 AM EST 04/06/2024 11:13 AM EST us Generic External Data Provider LAB BLOOD ORDERAB LES Final Result Performing Organization Address City/State/[facility] Co de Phone Number [facility] [address] [place] [address] [phone] * XR Chest 1 View (04/06/2024 10:40 AM EST) Anatomical Region Laterality Modality Chest Radiographic Joy ging 04/06/2024 10:4 0 AM EST Narrative 04/06/2024 11:33 AM EST ? [facility] ?[address] ?[place] [address] ?XRay Report ? Signed ? Patient: Adelia Izquierdo,Deysi D ?MR#: ?? [id number] ? : 1970 ?Acct:[id number] ? Age/Sex: 53 / F ?ADM Date: 01/07/25 ? Loc: HO.ED ? Attending Dr: ? Ordering Physician: Demetrius Valdivia MD ?? Date of Service: 04/06/24 ?? Procedure(s): XR chest 1V ?? Accession Number(s): [id number] ? cc: Zev Sanders MD; Demetrius Valdivia [...] DD/ 1040 ? TD/TT: 04/06/24 1127 ? In Store Marketer: ? Procedure Note Elias, Image - 04/06/[address] [address] XRay Report Signed Patient: Deysi Pfeiffer DMR#: [id number] : 1970Acct:[id number] Age/Sex: 53 / FADM Date: 04/06/24 Loc: HO.ED Attending Dr: Ordering Physician: Demetrius Valdivia MD Date of Service: 04/06/24 Procedure(s): XR chest 1V Accession Number(s): [id number] cc: Zev Sanders MD; Demetrius Valdivia MD [...] emphysematous type changes. Electronically signed by: Francis Connelly MD 04/06/2024 11:31 AM EST RP Dictated By: Francis Brannon MD Signed By: <Electronically signed by Francis Jaeger MDin OV> 04/06/24 1131 DD/ 1040 TD/TT: 04/06/24 1127 In Store Marketer: [facility] External Provider IMG XR PROCEDURES Edited Result - Final documented in this encounter Visit Diagnoses Not on filedocumented in this encounter Additional Health Concerns Assessment Noted Time PHQ-9 Depression Total Score: 7 10/14/19 24 11:59 AM EDT documented as of this encounter Care Teams Bead Supervisor Relationship Specialty Start Date End Date Zev Sanders MD [address] [place] [address] PCP - General Internal Medicine 11/16/19 documented as of this encounter
--- OUTSIDE RECORDS SUMMARY | 2024-04-21 18:37 | XMS_ITS | Encounter Summary ---
Author Organization [employer] Address [address] [place] [address] [address] [address] Care Team Providers Care Food And Beverage Coordinator Name Role Phone Zev Sanders MD Primary Care Provider [phone] Encounter Details Date Type Department Care Team ([facility] Contact Info) Description 04/12/2022 Orders Only [facility] [address] [place] [address] Zev Sanders MD [address] [place], [place] [phone] Social History Tobacco Use Types Packs/Day Years Used Date Smoking Tobacco: Never Smokeless Tobacco: Never Alcohol Use Standard Drinks/Week Comments Never 0 (1 standard drink = 0.6 oz pur e alcohol) Comments Unknown Sex and Gender Information Value Date Recorded Sex Assigned at Female 01/28/2022 10:30 AM EDT Legal Sex Female 10:30 AM EDT Gender Identity Female 10/14/2023 1:26 PM EDT Sexual Orientation Straight 10/14/2023 1: 26 PM EDT COVID-19 Exposure Response Date Recorded In the last 10 days, have yo u been in contact with someone who was confirmed or suspected to have Coronavirus/COVID-19? No / Unsure 04/09/2022 3:41 PM EST documented as of this encounter Plan of Treatment Upcoming Encounters Date Type Department Care Team ([facility] Contact Info) Description 04/29/2024 10:00 AM EST Office Visit [facility] [address] [place], [place] [phone] Zev Sanders MD [address] [place], [place] [phone] documented as of this encounter Procedures Procedure Name Priority Date/Time Associated Diagnosis Comments SLIDE REVIEW Routine 10/21/2022 2:13 PM EDT VENOUS BLOOD GAS Routine 09/04/2022 1:17 PM EDT D DIMER HIGH SENSITIVITY Routine 09/04/2022 1:10 PM EDT COVID-19 ID NOW (ZAYAS) Routine 09/04/2022 11:26 AM EDT CBC WITH AUTO DIFFERENTIAL Routine 09/04/2022 11:26 AM EDT B TYPE NATRIURETIC PEPTIDE (BNP) Routine 09/04/2022 11:26 AM EDT COMPREHENSIVE METABOLIC PANEL Routine 09/04/2022 11:26 AM EDT documented in this encounter Results * Slide Review (10/21/2022 2:13 PM EDT) Slide Review VERIFIED [facility] 10/21/2022 2:13 PM EDT 10/21/2022 5:23 PM EDT us Zev Sanders MD LAB BLOOD ORDERABLES Final Result [facility] [address] [place] [phone] * (ABNORMAL) VENOUS BLOOD GAS (09/04/2022 1:17 PM EDT) VBG pH 7.37 7.32 - 7.43 [facility] Comment:METER #: [id number] additional_comment: Cb murpe VBG PCO2 57 mmHg [facility] Comment:METER #: [id number] additional_comment: Cb murpe VBG PO2 48 mmHg [facility] Comment:METER #: [id number] additional_comment: Cb murpe VBG Base Excess 6.2 mmol/L [facility] Comment:METER #: [id number] additional_comment: Cb murpe VBG HCO3 33(H) 22 - 26 mmol/L [facility] Comment:METER #: [id number] additional_comment: Cb murpe O2 Sat, Lefty 77.0 % [facility] Comment:METER #: [id number] additional_comment: Cb murpe 09/04/2022 1:17 PM EDT 09/04/2022 1:23 PM EDT [facility] External Provider LAB BLO OD ORDERABLES Final Result Performing Organization Address [facility] de Phone Number [facility] [address] [place] [phone] * D Dimer High Sensitivity (09/04/2022 1:10 PM EDT) [facility] D Dimer High Sensitivity <150 NG/ML [facility] Comment:D-DIMER HS REFERENCE RANGENote: Our assay reports D-Dimer Units (D- DU).The cut-off value for venous thromboembolic (VTE) disease is230 ng/mL. This value has a very high negative predictivevalue when the patient has a low to moderate clinicalprobability of VTE.The upper limit of normal is 243 ng/mL. 09/04/2022 1:10 PM EDT 09/04/2022 1:18 PM EDT [facility] External Provider LAB BLO OD ORDERABLES Final Result Performing Organization Address [facility] de Phone Number [facility] [address] [place] [phone] * B Type Natriuretic Peptide (BNP) (09/04/2022 11:26 AM EDT) Pathologist [facility] B Type Natriuretic Peptide 19 <100 pg/mL [facility] Comment:For those patients w ho are being treated with Natrecor(nesiritide, recombinant BNP), BNP testing should beperformed at least two hours post treatment in order toensure that only endogenous levels of BNP are detected. 09/04/2022 11:2 6 AM EDT 09/04/2022 1:27 PM EDT us [facility] External Provider LAB BLO OD ORDERABLES Final Result [facility] [address] [place] [phone] * (ABNORMAL) Comprehensive Metabolic Panel (09/04/2022 11:26 AM EDT) Sodium 142 135 - 145 mmol/L [facility] Potassium 4.2 3.3 - 5.1 mmol/L [facility] Chloride 102 96 - 108 mmol/L [facility] Carbon Dioxide 34(H) 22 - 29 mmol/L [facility] Anion Gap 10(L) 12 - 20 [facility] Urea Nitrogen (BUN) 15 9 - 16 mg/dL [facility] Creatinine, Serum 0.68 0.5 - 1.4 mg/dL [facility] Creatinine Clr Calc Pharmacy 74.8 [facility] Comment:Provided height and weight: 162.56 cm,49 kg.eGFR (calculated from the MDRD study equation) and eCrCl(calculated from the Cockcroft-Gault equation) are based ondifferent parameters and may not yield comparable results.If eCrCl result is absurd, please check patient'sheight/weight. Estimated Glomerular Filt Rate >60 [facility] Comment:NOTE: For -Am erican individuals, multiply the result by 1.210.Chronic Kidney Disease: Estimated GFR < 60 mL/min/1.84f1Gbfuai Kidney Disease: Estimated GFR < 15 mL/min/1.73m2 Glucose 112 60 - 115 mg/dL [facility] Calcium 9.4 8.4 - 10.2 mg/dL [facility] Bilirubin, Total 0.7 0.0 - 1.0 mg/dL [facility] Aspartate Amino Transferase 21 5 - 31 U/L [facility] Alanine Aminotransferase 17 0 - 31 U/L [facility] Total Protein 6.7 6.5 - 8.0 g/dL [facility] Albumin Level 4.1 3.5 - 5.0 g/dL [facility] Alkaline Phosphatase 73 39 - 117 U/L [facility] 09/04/2022 11:2 6 AM EDT 09/04/2022 11:33 AM EDT us [facility] External Provider LAB BLO OD ORDERABLES Final Result [facility] [address] [place] [phone] * COVID-19 ID NOW (ZAYAS) (09/04/2022 11:26 AM EDT) IDNOW SERIAL# [id number] [facility] COVID-19 TEST Negative Negative [facility] COVID-19 NOTE See Note [facility] Comment: Results are for the identification of SARS-CoV2 RNA. TheSARS-CoV2 RNA is generally detectable in respiratory samplesduring the acute phase of infection. Positive results areindicative of the presence of SARS-CoV-2 RNA; clinicalcorrelation with patient history and other diagnosticinformation is necessary to determine patient infectionstatus. Positive results do not rule out bacterial infectionor co- infection with other viruses.Testing facilities within the [facility] and [facility] hospitalies are required to report all positive results tothe appropriate public health authorities.Negative results should be treated as presumptive and, ifinconsistent with clinical signs and symptoms or necessaryfor patient management, should be tested with differentauthorized or cleared molecular tests. Negative results donot preclude SARS-CoV2 RNA infection and should not be usedas the sole basis for patient management decisions. Negativeresults should be considered in the context of a patient'srecent exposures, history and the presence of clinical signsand symptoms consistent with COVID-19.This test has been authorized by the FDA under an EmergencyUse Authorization (EUA) for use by authorized laboratories.Testing performed on the AppCard ID NOW utilizing NAAT. 09/04/2022 11:2 6 AM EDT 09/04/2022 11:33 AM EDT [facility] Exter nal Provider LAB MOLECULAR DIAGNOSTICS ORDERABLES Final Result [facility] [address] [place] [phone] * (ABNORMAL) CBC auto differential (09/04/2022 11:26 AM EDT) White Blood Count 10.4 4.8 - 10.8 X10*3/uL [facility] Red Blood Count 5.42 4.20 - 5.50 X10*6/uL [facility] Hemoglobin 16.0 12.0 - 16.0 g/dl [facility] Hematocrit 49.3(H) 37.0 - 47.0 % [facility] Mean Corpuscular Volume 91.0 80.0 - 98.0 fL [facility] Mean Corpuscular Hemoglobin 29.5 27.0 - 33.0 pg [facility] Mean Corpuscular HGB Conc 32.5 31.0 - 35.0 g/dl [facility] Red Cell Distribution Width 14.6 11.0 - 16.0 % [facility] Platelet Count 238 160 - 400 X10*3/uL [facility] Mean Platelet Volume 9.5 9.4 - 12.3 fL [facility] Neutrophils Percent Auto 51.2 45 - 73 % [facility] Imm Gran Pct Auto 0.3 0.0 - 0.4 % [facility] Lymphocytes Percent Auto 38.4 20 - 40 % [facility] Monocytes Percent Auto 8.1 2 - 11 % [facility] Eosinophils Percent Auto 1.5 0 - 4 % [facility] Basophils Percent Auto 0.5 0 - 2 % [facility] NRBC Pct Auto 0.0 0.0 - 0.2 /100WBC [facility] Neutrophils Absolute Auto 5.4 2.0 - 8.3 x10*3/uL [facility] Imm Gran Abs Auto 0.03 0.00 - 0.03 X10*3/uL [facility] Lymphocytes Absolute Auto 4.0 1.2 - 4.9 X10*3/uL [facility] Monocytes Absolute Auto 0.8 0.1 - 1.2 X10*3/uL [facility] Eosinophils Absolute Auto 0.2 0.0 - 0.4 X10*3/uL [facility] Basophils Absolute Auto 0.1 0.0 - 0.2 X10*3/uL [facility] NRBC Abs Auto 0.000 0.0 - 0.012 X10*3/uL [facility] 09/04/2022 11:2 6 AM EDT 09/04/2022 11:33 AM EDT us [facility] External Provider LAB BLO OD ORDERABLES Final Result [facility] [address] [place] [phone] documented in this encounter Visit Diagnoses Not on filedocumented in this encounter Care Teams Food And Beverage Coordinator Relationship Specialty Start Date End Date Zev Sanders MD [address] [place] [phone] PCP - General Internal Medicine 11/16/19 documented as of this encounter
== END 2024-04-21 18:14 | disposition left against medical advice (07) ==
PROVIDERS: Registered Nurse Emergency; Emergency Provider Emergency Medicine; PCP Internal Medicine
DX: R60.0 Localized edema (principal); M54.50 Low back pain, unspecified; M79.605 Pain in left leg; M79.604 Pain in right leg; Z79.899 Other long term (current) drug therapy
CPT/HCPCS: 36415; 80053; 85025; 85610; 93970; 99281; 99284

== ENCOUNTER → 2024-04-21 14:37 | Outpatient (BNV) | payer MEDICAID, SELFPAY | PROVIDERS: PCP Internal Medicine; Visit Provider Radiology Diagnostic Radiology | DX: M79.669 Pain in unspecified lower leg (principal) | CPT/HCPCS: 93970 ==

== ENCOUNTER 2024-04-26 13:21 | Outpatient (AMB) | payer MEDICAID, SELFPAY ==
[2024-04-26 13:54] VITALS: BP 128/68; PULSE 80; O2SAT 93
--- NOTE | 2024-04-26 13:54 | A.OFFVIS_ITS ---
Vital Signs 04/26/24 13:54 BP 128/68 Blood Pressure Location Rt brachial Position Sitting Pulse 80 Pulse Source Pulse Oximeter Pulse Oximetry (%) 93 Oxygen Delivery Method Room Air Intake Visit Reasons: 6 minute walk Intake Note: 6 min walk test to requalify for oxygen. Press And Blow Machine Tender Required: No Allergies Penicillins [PENICILLINS] Allergy (Severe, Verified 04/21/24 14:37) RASH seafood Allergy (Verified 04/21/24 14:37) Rash [facility] Medical History Current non-smoker but past smoking history unknown Respiratory failure with hypoxia COPD exacerbation Pre-op examination History of OCD (obsessive compulsive disorder) History of panic attacks Anxiety and depression Radiculopathy, lumbar region HTN (hypertension) Sacroiliitis COPD (chronic obstructive pulmonary disease) Asthma Allergic rhinitis Disc degeneration, lumbar Surgical History History of surgery History of appendectomy Hx of tonsillectomy Status post excision of lipoma History of tubal ligation Hx of excision of mass History of surgery History of laparoscopic cholecystectomy History of esophagogastroduodenoscopy (EGD) History of umbilical hernia repair History of incision and drainage Family History Family/Other Cervical cancer Family/Other Stomach cancer Social History Household Members: Significant Other and Family Household Members Other:: grandson Housing: House Do you presently have visiting nurse or other home services: No Alcohol intake: never Comment: Significant other bedside Patient Tobacco Use Status: Former Tobacco user Tobacco use type: Cigarette Substance Use Type: Marijuana Advance Directives Date on File: 04/06/24 service: No Current occupational status: unemployed Sexual orientation: Straight/Heterosexual Gender identity: Female Physical Exam Vital Signs: Last Vital Signs Pulse 80 04/26/24 13:54 BP 128/68 04/26/24 13:54 Pulse Ox 93 04/26/24 13:54 Oxygen Delivery Method Room Air 04/26/24 13:54 Office Procedures 6 Minute Walk Time:: 13:35 SPO2 % at rest: 93 Pulse at rest: 80 SPO2 % during excercise: 84 Pulse during excercise: 92 SPO2 % after excercise: 93 Pulse after excercise: 88 Distance in yards walked: 75 Negar Score: 8 Performance Observations:: Patient walked on level ground unassisted. After approx 20 steps O2 saturation dropped to 84% with pulse of 92. Stopped to rest with O2 applied at 2L via nasal cannula with very littlel improvement. O2 increased to 3L with O2 sat increased to 92%..Continued walk and after only 1 minute O2 sat dropped to 87%. Stopped and increased O2 to 4L with O2 saturation increased to 91-92%. Patient completed walk maintaining O2 saturation of 90-92%. Patient reports shortness of breath with any activity. Patient requires supplemental Oxygen of 4L with ambulation. [id number] - 6 Minute Walk Assessment & Plan Assessment & Plan (1) Respiratory failure with hypoxia: Comment: She was hypoxemic with minimal exertion. Has been started on O2 therapy. Feels stronger and better. USING O2 2 L/MINUTE 24 HOURS A DAY. HOWEVER WHEN RESTING AT HOME SHE COMES OF OXYGEN . FOR SHORT INTERVALS Code(s): J96.91 - Respiratory failure, unspecified with hypoxia Category: Medical Plan: Patient came for 6 minutes walk. Determine that she needs 4 L/minute when ambulating. Orders: Orders AMB 6 minute walk 04/26/24 J44.1 - Chronic obstructive pulmonary disease with (acute) exacerbation, J96.91 - Respiratory failure, unspecified with hypoxia Coding Level of Care Code Est Pt Level 1 (18157) Diagnoses Respiratory failure with hypoxia J96.91 CPT Codes Coding ([id number])
[2024-04-26 14:08] VITALS: PULSE 80; O2SAT 93
--- OUTSIDE RECORDS SUMMARY | 2024-04-26 18:02 | XMS_ITS | Encounter Summary ---
Author Organization [employer] Address [address] [facility] [address] [place] [address] Care Team Providers Care Pulmonary Fellow Name Role Phone Zev Sanders MD Primary Care Provider [phone] Reason for Visit * Reason Comments Transition Of Care (Tcm) HDF scheduled. Encounter Details Date Type Department Care Team ([facility] Contact Info) Description 04/21/2024 Patient Outreach [facility] [address] [place], [place] [phone] Zev Sanders MD [address] [place] [address] Transition Of Care (Tcm) (HDF scheduled. ) [...] Admission/Visit 04/04/24 Date of Discharge 04/06/24 Facility [facility] Diagnosis Dyspnea Disposition Discharged Home Follow-Up Actions [...] Wednesdays, and Walk-In Urgent Care Located in [facility]. Patient provided with after-hours line for [facility], , which offer night time triage service and option to transfer to nursing education consultant provider if needed. CC scanned discharge summary into patient's chart. Biggest concern forappointment at this time is no concerns. Appropriate screenings completed in anticipation of appointment. documented in this encounter Plan of Treatment Upcoming Encounters Date Type Department Care Team (Late st Contact Info) Description 04/29/2024 10:00 AM EST Office Visit [facility] [address] [place] [address] Zev Sanders MD [address] [place] [address] 04/29/2024 10:45 AM EST Nurse Only [facility] [address] [place] [address] documented as of this encounter Visit Diagnoses Not on filedocumented in this encounter Additional Health Concerns Assessment Noted Time PHQ-9 Depression Total Score: 7 10/14/19 24 11:59 AM EDT documented as of this encounter Care Teams Pulmonary Fellow Relationship Specialty Start Date End Date Zev Sanders MD [address] [place] [address] PCP - General Internal Medicine 11/16/19 documented as of this encounter"
--- OUTSIDE RECORDS SUMMARY | 2024-04-26 18:02 | XMS_ITS | Encounter Summary ---
Author Organization [employer] [facility] Address [address] [facility] [address] [place] [address] Care Team Providers Care Epic Cadence Specialists Name Role Phone Zev Sanders MD Primary Care Provider [phone] Encounter Details Date Type Department Care Team ([facility] Contact Info) Description 12/24/2022 Orders Only [facility] [address] [place] [address] ProviderJosh MD Social History Tobacco Use Types Packs/Day Years [...] Description 04/29/2024 10:00 AM EST Office Visit [facility] [address] [place] [address] Zev Sanders MD [address] [place] [address] 04/29/2024 10:45 AM EST Nurse Only [facility] [address] [place] [address] documented as of this encounter Procedures Procedure Name Priority Date/Time Associated Diagnosis Comments HM PAP/HPV Routine 01/15/2022 documented in this encounter Results * Hm Pap Smear (01/15/2022) us Historical Provider HEALTH MAINTENANCE Final Result documented in this encounter Visit Diagnoses Not on filedocumented in this encounter Care Teams Epic [employer] Specialists Relationship Specialty Start Date End Date Zev Sanders MD [address] [place] [phone] PCP - General Internal Medicine 11/16/19 documented as of this encounter
--- OUTSIDE RECORDS SUMMARY | 2024-04-26 18:02 | XMS_ITS | Clinical Summary ---
Author Organization [employer] Address [address] [place] [address] [address] [place] [address] Care Team Providers Care Tobacco Classer Name Role Phone Zev Sanders MD Primary Care Provider [phone] Allergies No known active allergies Medications tiotropium (Spiriva Respimat) 2.5 MCG/ACT inhalerIndicat ions:COPD (chronic obstructive pulmonary disease) case management patient (CMS/HCC) INHALE TWO PUFF BY MOUTH EVERY MORNING 4 g 5 06/19/19 23 Active lisinopril 10 MG tablet TAKE ONE TABLET EVERY MORNING 90 tablet 1 12/02/19 24 Active esomeprazole (NexIUM) [address] capsule TAKE ONE CAPSULE EVERY MORNING 90 capsule 1 12/02/19 24 Active pregabalin (Lyrica) 150 MG capsuleIndicat ions:Chronic low back pain, unspecified back pain laterality, unspecified whether sciatica present TAKE ONE CAPSULE TWICE DAILY IN THE MORNING AND AT BEDTIME 60 capsule 03/29/20 24 Active cholecalcifero l VITAMIN D (Vitamin D-3) 50 MCG (1999) tablet TAKE ONE TABLET EVERY MORNING 90 tablet 03/29/20 24 Active budesonide-for moterol (Symbicort) 160-4.5 MCG/ACT inhaler Inhale 2 puffs in the morning and at bedtime. 06/02/19 22 Active ipratropium-al buterol (Duo-Neb) 0.5-2.5 mg/3 mL nebulizer solution Take 3 mL by nebulization Every 6-8 hours as needed for wheezing. 04/05/19 25 Active mirtazapine (Remeron) 45 MG tablet Take 1 tablet by mouth at bedtime. Active montelukast (Singulair) 10 MG tablet Take 1 tablet by mouth at bedtime. Active oxyCODONE (Roxicodone) 5 MG immediate release tablet Take 1 tablet by mouth if needed in the morning, at noon, and at bedtime for severe pain. 04/04/19 25 Active QUEtiapine (SEROquel) 100 MG tablet Take 1 tablet by mouth at bedtime. 03/25/20 24 Active naloxone (Narcan) 4 mg/0.1 mL nasal spray PLEASE SEE ATTACHED FOR DETAILED DIRECTIONS 09/08/19 24 Active predniSONE (Deltasone) 5 MG tablet Take 1 tablet by mouth Once per day. Active pregabalin (Lyrica) 150 MG capsuleIndicat ions:Fibromyal alba TAKE ONE CAPSULE TWICE DAILY IN THE MORNING AND AT BEDTIME 60 capsule 04/18/19 23 2024 Discontinued(M ed list cleanup (will not trigger notification to Pharmacy)) cholecalcifero l (Vitamin D-3) 50 MCG (2000 UT) tablet TAKE ONE TABLET BY MOUTH EVERY MORNING 90 tablet 3 04/22/19 24 2023 Discontinued cyclobenzaprin e (Flexeril) 10 MG tablet Take 1 tablet (10 mg) by mouth 3 times daily for 10 days. 30 tablet 07/22/19 24 2024 Discontinued(M ed list cleanup (will not trigger notification to Pharmacy)) pregabalin (Lyrica) 150 MG capsuleIndicat ions:Chronic low back pain, unspecified back pain laterality, unspecified whether sciatica present TAKE ONE CAPSULE TWICE DAILY IN THE MORNING AND AT BEDTIME 60 capsule 03/03/20 24 2023 Discontinued albuterol 108 (90 Base) MCG/ACT inhaler Inhale 2 puffs if needed in the morning, at noon, in the evening, and at bedtime for wheezing or shortness of breath. 08/25/19 22 2024 Discontinued(M ed list cleanup (will not trigger notification to Pharmacy)) Active Problems Problem Noted Date Diagnosed Date Olecranon bursitis, right elbow 03/29/2022 Asthma-chronic obstructive p ulmonary disease overlap syndrome 12/19/2017 Chronic back pain 12/19/2017 Essential hypertension 12/19/2017 Menopausal symptom 12/19/2017 Migraine 12/19/2017 Mood disorder 12/19/2017 Seasonal allergies 12/19/2017 Tobacco dependence syndrome 12/19/2017 Encounters Date Type Department Care Team Description 04/22/2024 Telephone [facility] [address] [place] [address] Zev Sanders MD Results 04/21/2024 Orders Only GENERIC EXTERNAL DATA DEPARTMENT Provider, Generic External Data 04/21/2024 Patient Outreach [facility] [address] [place] [address] Zev Sanders MD Transition Of Care (Tcm) (HDF scheduled. ) 04/21/2024 Patient Outreach [facility] [address] [place] [address] Zev Sanders MD Pre-visit Planning (SDOH will need to be completed in office. ) 04/20/2024 Telephone [facility] [address] [place] [address] Zev Sanders MD Nurse Triage 04/14/2024 Patient Outreach [facility] [address] [place] [address] Zev Sanders MD Transition Of Care (Tcm) (HDF #2 attempt _ unable to lvm) 04/09/2024 Patient Outreach [facility] [address] [place] [address] Zev Sanders MD Transition Of Care (Tcm) (HDF- Not in service) 04/06/2024 Orders Only GENERIC EXTERNAL DATA DEPARTMENT Provider, Generic External Data 03/28/2024 Refill [facility] [address] [place] [address] Zev Sanders MD Chronic low back pain, unspecified back pain laterality, unspecified whether sciatica present 03/04/2024 Telephone [facility] [address] [place] [address] Zev Sanders MD [employer] Paperwork ot renew O2 03/01/2024 Refill [facility] [address] [place] [address] Zev Sanders MD Chronic low back pain, unspecified back pain laterality, unspecified whether sciatica present 02/03/2024 Refill [facility] [address] [place] [address] Zev Sanders MD Chronic low back pain, [...] Description 04/29/2024 10:00 AM EST Office Visit [facility] [address] [place] [address] Zev Sanders MD [address] [place] [address] 04/29/2024 10:45 AM EST Nurse Only [facility] [address] [place] [phone] Health Maintenance Due Date Last Done Comments [...] 10/16/2022 Mammogram 10/18/2023 10/17/2021, 12/04/2017 COVID-19 Vaccine (1 - season) 2023 Influenza Vaccine (#1) 2023 , 12/19/2017, 12/27/2016, Additional history exists Depression Screening 10/13/2024 10/14/2023, 10/14/19 Tobacco Screening 10/13/2024 10/14/2023 Colorectal Cancer Screening [...] Procedure Name Priority Date/Time Associated Diagnosis Comments VASC US LOWER EXTREMITY VENOUS DUPLEX BILATERAL Routine [...] Recently Relevant to Health Maintenance Results * VASC Lower Extremity Venous Duplex Bilateral (04/21/2024 3:56 PM EST) 04/21/2024 3:56 PM EST Narrative [facility] - 04/21/2024 4:23 PM EST ? [facility] ?[address] ?[place] [address] ? Ultrasound Report ? Signed ? Patient: Delvalle Izquierdo,Deysi D ?MR#: ?? [id number] ? : 1970 ?Acct:[id number] ? Age/Sex: 53 / F ?ADM Date: /22/25 ? Loc: HO.ED ? Attending Dr: ? Ordering Physician: Shila Mueller NP ?? Date of Service: 04/21/24 ?? Procedure(s): US venous duplex LE BI ?? Accession Number(s): [id number] ? cc: Zev Sanders MD; Shila Mueller [...] DD/ 1556 ? TD/TT: 04/21/24 1612 ? Divinity Professor: ? Procedure Note Elias, Travis - 04/21/[address] [address] Ultrasound Report Signed Patient: Deysi Pfeiffer DMR#: [id number] : 1970Acct:[id number] Age/Sex: 53 / FADM Date: 04/21/24 Loc: HO.ED Attending Dr: Ordering Physician: Shila Mueller NP Date of Service: 04/21/24 Procedure(s): US venous duplex LE BI Accession Number(s): [id number] cc: Zev Sanders MD; Shila Mueller NP [...] 04/21/24 1620 DD/ 1556 TD/TT: 04/21/24 1612 Divinity Professor: [facility] External Provider CV VASC ULAR PROCEDURES Final Result [facility] [address] [place] [phone] * (ABNORMAL) CBC auto differential (04/21/2024 3:22 PM EST) White Blood Count 11.6(H) 4.8 - 10.8 X10*3/uL [facility] Red Blood Count 4.26 4.20 - 5.50 X10*6/uL [facility] Hemoglobin 12.4 12.0 - 16.0 g/dl [facility] Hematocrit 39.4 37.0 - 47.0 % [facility] Mean Corpuscular Volume 92.5 80.0 - 98.0 fL [facility] Mean Corpuscular Hemoglobin 29.1 27.0 - 33.0 pg [facility] Mean Corpuscular HGB Conc 31.5 31.0 - 35.0 g/dl [facility] Red Cell Distribution Width 14.6 11.0 - 16.0 % [facility] Platelet Count 241 160 - 400 X10*3/uL [facility] Mean Platelet Volume 9.2(L) 9.4 - 12.3 fL [facility] Neutrophils Percent Auto 84.3(H) 45 - 73 % [facility] Imm Gran Pct Auto 0.6(H) 0.0 - 0.4 % [facility] Lymphocytes Percent Auto 10.4(L) 20 - 40 % [facility] Monocytes Percent Auto 3.6 2 - 11 % [facility] Eosinophils Percent Auto 0.4 0 - 4 % [facility] Basophils Percent Auto 0.7 0 - 2 % [facility] NRBC Pct Auto 0.0 0.0 - 0.2 /100WBC [facility] Neutrophils Absolute Auto 9.8(H) 2.0 - 8.3 x10*3/uL [facility] Imm Gran Abs Auto 0.07(H) 0.00 - 0.03 X10*3/uL [facility] Lymphocytes Absolute Auto 1.2 1.2 - 4.9 X10*3/uL [facility] Monocytes Absolute Auto 0.4 0.1 - 1.2 X10*3/uL [facility] Eosinophils Absolute Auto 0.1 0.0 - 0.4 X10*3/uL [facility] Basophils Absolute Auto 0.1 0.0 - 0.2 X10*3/uL [facility] NRBC Abs Auto 0.000 0.0 - 0.012 X10*3/uL [facility] 04/21/2024 3:22 PM EST 04/21/2024 3:24 PM EST us Generic External Data Provider LAB BLOOD ORDERAB LES Final Result [facility] [address] [place] [address] [phone] * Prothrombin Time-INR (04/21/2024 3:22 PM EST) Prothrombin Time 10.9 10.9 - 12.4 SEC [facility] INTERNATIONAL NORM RATIO 0.9 0.9 - 1.1 [facility] Comment:INTERNATIONAL NORMAL IZED RATIO (INR) [...] ORDERAB LES Final Result Performing Organization Address City/State/[facility] Co de Phone Number [facility] [address] [place] [phone] * (ABNORMAL) Comprehensive Metabolic Panel (04/21/2024 3:22 PM EST) Pathologist [facility] Sodium 143 135 - 145 mmol/L [facility] Potassium 4.9 3.3 - 5.1 mmol/L [facility] Chloride 103 96 - 108 mmol/L [facility] Carbon Dioxide 33(H) 22 - 29 mmol/L [facility] Anion Gap 12 12 - 20 [facility] Urea Nitrogen (BUN) 11 9 - 16 mg/dL [facility] Creatinine, Serum 0.59 0.5 - 1.4 mg/dL [facility] Creatinine Clr Calc Pharmacy 95.2 [facility] Comment:Provided height and weight: 162.56 cm,56.9 kg.eGFR (calculated from the MDRD study equation) and eCrCl(calculated from the Cockcroft-Gault equation) are based ondifferent parameters and may not yield comparable results.If eCrCl result is absurd, please check patient'sheight/weight. Estimated Glomerular Filt Rate >60 [facility] Comment:Chronic Kidney Disea se: Estimated GFR < 60 mL/min/1.41x3Nheyad Kidney Disease: Estimated GFR < 15 mL/min/1.73m2 Glucose 116(H) 60 - 115 mg/dL [facility] Calcium 9.1 8.4 - 10.2 mg/dL [facility] Bilirubin, Total 0.3 0.0 - 1.0 mg/dL [facility] Aspartate Amino Transferase 17 5 - 31 U/L [facility] Alanine Aminotransferase 14 0 - 31 U/L [facility] Total Protein 6.6 6.5 - 8.0 g/dL [facility] Albumin Level 3.9 3.5 - 5.0 g/dL [facility] Alkaline Phosphatase 66 39 - 117 U/L [facility] 04/21/2024 3:22 PM EST 04/21/2024 3:24 PM EST us Generic External Data Provider LAB BLOOD ORDERAB LES Final Result Performing Organization Address [facility] Co de Phone Number [facility] [address] [place] [phone] * Lactic Acid (04/06/2024 1:03 PM EST) Pathologist [facility] Lactic Acid 0.7 0.5 - 2.0 mmol/L [facility] 04/06/2024 1:03 PM EST 04/06/2024 1:07 PM EST us Generic External Data Provider LAB BLOOD ORDERAB LES Final Result Performing Organization Address [facility] de Phone Number [facility] [address] [place] [phone] * (ABNORMAL) VENOUS BLOOD GAS (04/06/2024 11:05 AM EST) VBG pH 7.43 7.32 - 7.43 [facility] Comment:METER #: [id number] additional_comment: Cb thompson VBG PCO2 52 mmHg [facility] Comment:METER #: [id number] additional_comment: Joshua thompson VBG PO2 33 mmHg [facility] Comment:METER #: [id number] additional_comment: Joshua thompson VBG Base Excess 9.5 mmol/L [facility] Comment:METER #: [id number] additional_comment: Joshua thompson VBG HCO3 35(H) 22 - 26 mmol/L [facility] Comment:METER #: [id number] additional_comment: Joshua thompson O2 Sat, Lefty 55.0 % [facility] Comment:METER #: [id number] additional_comment: Cb jay 04/06/2024 11:0 5 AM EST 04/06/2024 11:13 AM EST us Generic External Data Provider LAB BLOOD ORDERAB LES Final Result Performing Organization Address City/State/[facility] Co de Phone Number [facility] [address] [place] [address] [phone] * XR Chest 1 View (04/06/2024 10:40 AM EST) Anatomical Region Laterality Modality Chest Radiographic Joy ging 04/06/2024 10:4 0 AM EST Narrative 04/06/2024 11:33 AM EST ? [facility] ?[address] ?[place] [address] ?XRay Report ? Signed ? Patient: Adelia Deysi Izquierdo D ?MR#: ?? [id number] ? : 1970 ?Acct:[id number] ? Age/Sex: 53 / F ?ADM Date: 04/06/24 ? Loc: HO.ED ? Attending Dr: ? Ordering Physician: Demetrius Valdivia MD ?? Date of Service: 01/07/25 ?? Procedure(s): XR chest 1V ?? Accession Number(s): [id number] ? cc: Zev Sanders MD; Demetrius Valdivia [...] ? Signed By: ?<Electronically signed by Francis Jeager MD in OV> ? 04/06/24 1131 ? DD/ 1040 ? TD/TT: 04/06/24 1127 ? Divinity Professor: ? Procedure Note Donotlakshmiinterpreter, Image - 04/06/[address] [address] XRay Report Signed Patient: Deysi Pfeiffer DMR#: [id number] : 1970Acct:[id number] Age/Sex: 53 / FADM Date: 04/06/24 Loc: HO.ED Attending Dr: Ordering Physician: Demetrius Valdivia MD Date of Service: 04/06/24 Procedure(s): XR chest 1V Accession Number(s): [id number] cc: Zev Sanders MD; Demetrius Valdivia MD [...] Francis Connelly MD 04/06/2024 11:31 AM EST Dictated By: Francis Brannon MD Signed By: <Electronically signed by Francis Jaeger MDin OV> 04/06/24 1131 DD/ 1040 TD/TT: 04/06/24 1127 Divinity Professor: [facility] External Provider IMG XR PROCEDURES Edited Result - Final * Cologuard?? colon cancer screening (03/10/2023 2:14 PM EST) Cologuard Result Negative Negative 03/21/20 1:56 AM EST [facility] (CLIA #:[id number]) Comment: NEGATIVE TEST RESULT. A negative Cologuard [...] with both Cologuard and colonoscopy. (Jorge Luis Dunn et al, N Engl J Med 2014;370(14):1286- 1297) The normal value (reference range) for this assay is negative. COLOGUARD RE-SCREENING RECOMMENDATION: Periodic colorectal cancer screening is an important part of preventive healthcare for asymptomatic individuals at average risk for colorectal cancer. ??Following a negative Cologuard result, the [place] [employer] Society and U.S. Multi-Society Task Force screening guidelines recommend a Cologuard re-screening interval of 3 years. References: [place] [employer] Guideline for Colorectal Cancer Screening: https://www.cancer.org/cancer/dfvno-cuaqts-cvoosb/pofnnzcxy-dpupmzepz-fumbdqd/ac s-rec ommendations.html.; Edgar DK, Antonio CR, Salma CorderoK, Colorectal Cancer Screening: Recommendations for Physicians and Patients from the U.S. Multi-Society Task Force on Colorectal Cancer Screening , Am J Gastroenterology 2017; 112:7632-2645. TEST DESCRIPTION: Composite algorithmic analysis of stool [...] with both Cologuard and colonoscopy. (Jorge Luis Steward. et al, N Engl J Med 2014;370(14):5517-1080.) Cologuard may produce a false negative or false positive result (no colorectal cancer or precancerous polyp present at colonoscopy follow up). A negative Cologuard test result does not guarantee the absence of CRC or advanced adenoma (pre-cancer). The current Cologuard screening interval is every 3 years. ([place] [employer] Society and U.S. Multi-Society Task Force). Cologuard performance data in a 10,000 patient pivotal study using colonoscopy as the reference method can be accessed at the following location: www.[employer].com/results. Additional description of the Cologuard test process, warnings and precautions can be found at www.cologuard.com. Stool specimen (specimen) 03/10/2023 2:14 PM EST 03/12/2023 8:29 PM EST us Zev Sanders MD LAB MOLECULAR DIAGNOSTICS O RDERABLES Final Result Performing Organization Address City/[facility]/ZIP Co de Phone Number [employer] (CLIA #:[id number]) [address] [place] [address], * HPV E6/E7 RFLX VANNESSA 16 18/45 (01/15/2022 10:19 AM EDT) Pathologist [facility] HPV mRNA E6/E7 rflx Not Detected Not Detected [facility] Comment: Methodology: Motor Racer-Mediated Amplification This assay detects E6/E7 viral messenger RNA (mRNA) from 14 high-risk HPV types (16,18,31,33,35,39,45,51,52,56,58,59,66,68). Cervical sources are required for HPV testing. If a vaginal source from a patient who has had a total hysterectomy with removal of cervix was submitted, please contact the testing laboratory for alternative testing options. For additional information, please refer to http://education.[employer]/faq/VBZ356o9 (This link if provided for information/ educational purposes only.) THIS TEST WAS PERFORMED AT: [facility] [address] [place] [address] FLOOR,[address] [place], [place] ??[phone] ESPERANZA CRUZ MD 01/15/2022 10:1 9 AM EDT us Mario Alberto Morgan MD HISTORICAL/NON ORDERABLE LABS Fi nal Result Performing Organization Address [facility] Co de Phone Number [facility] * Hm Pap Smear (01/15/2022) Historical Provider HEALTH MAINTENANCE Final Result * HEPATITIS C AB W/REFL TO HCV RNA, QN, PCR (11/12/2021 12:09 PM EDT) Pathologist [facility] HEPATITIS C ANTIBODY NON-REACT JOSE MANUEL NON-REACT JOSE MANUEL [facility] INDEX 0.09 <1.00 [facility] Comment: ?? HCV antibody was non-reactive. There is no laboratory ?? evidence of HCV infection. ?? In most cases, no further action is required. However, if recent HCV exposure is suspected, a test for HCV RNA (test code 79809) is suggested. ?? For additional information please refer to http://[employer]/faq/ZHI03j7 (This link is being provided for informational/ educational purposes only.) ?? 11/12/2021 12:0 9 PM EDT us Zev Sanders MD HISTORICAL/NON ORDERABLE LA BS Final Result Performing Organization Address [facility] Co de Phone Number [facility] [address] * (ABNORMAL) LIPID PANEL, STANDARD (11/12/2021 [...] ?? Hilario MOON et al. JUANA. 2013;310(19): 4185-0663 ?? (http://[employer]/faq/FWC857) Non-HDL Cholesterol 129 <130 mg/dL (calc) [facility] Comment: For patients with diabetes plus 1 major ASCVD risk ?? factor, treating to a non-HDL-C goal of <100 mg/dL ?? (LDL-C of <70 mg/dL) is considered a therapeutic ?? option. Triglycerides 120 <150 mg/dL [facility] 11/12/2021 12:0 9 PM EDT us Zev Sanders MD LAB BLOOD ORDERABLES Final Result [facility] [address] * Mammography Report 1 (10/17/2021 2:30 PM EDT) Anatomical Region Laterality Modality Breast Bilateral Mammography 10/17/2021 2:30 PM EDT Narrative 10/18/2021 2:58 PM EDT Refer to the Notes tab for result details [facility] Procedure: Mammography Report 1 Procedure Note Provider, MD Josh - 06/23/2022 Refer to the Notes tab for result details [facility] Procedure: Mammography Report 1 Zev Sanders MD IMG BI PROCEDURES Final Res ult from Last 3 Months or Most Recently Relevant to Health Maintenance Insurance C3 Care Teams Tobacco Classer Relationship Specialty Start Date End Date Zev Sanders MD [address] [place] [address] PCP - General Internal Medicine 11/16/19
--- OUTSIDE RECORDS SUMMARY | 2024-04-26 18:02 | XMS_ITS | Encounter Summary ---
Author Organization [employer] Address [address] [place] [address] [address] [place] [address] Care Team Providers Care Multiple Effect Evaporator Operator Name Role Phone Zev Sanders MD Primary Care Provider [phone] Reason for Visit * Reason Onset Date Comments Results 04/22/2024 Encounter Details Date Type Department Care Team ([facility] Contact Info) Description 04/22/2024 Telephone [facility] [address] [place], [place] [phone] Zev Sanders MD [address] [place] [address] Results Social History Tobacco Use Types Packs/Day Years [...] encounter Miscellaneous Notes * Telephone Encounter - Evelin Santos RN - 04/26/2024 9:36 AM EST TC placed to pt to inform per Dr. Sanders that the labs ordered at the ED on 04/21/2024 showed no findings that require immediate attention. Pt confirms that she did leave the emergency room AMA. Pt was seen for bilateral leg/calf pain. Pt given advisement regarding bilateral LE pain and when to seek emergency care (symptoms including redness, warmth to the skin, intense pain) but advised to f/u on this with PCP during HDF appt on 04/29/2024. Pt agreeable to this plan of care and will call back as needed. * Telephone Encounter - Evelin Santos RN - 04/26/2024 9:22 AM EST TC placed to pt and LVM to call back the office * Telephone Encounter - Ronit Whitfield - 04/23/2024 12:38 PM EST Tc from pt requesting status of results * Telephone Encounter - Miriam Garcia - 04/22/2024 2:33 PM EST Tc from pt requesting a call back. Pt stated she completed lab work at [facility] on 04/21/26 and was informed results were faxed to PCP. Pt requesting a call back with lab results. documented in this encounter Plan of Treatment Upcoming Encounters Date Type Department Care Team (Late st Contact Info) Description 04/29/2024 10:00 AM EST Office Visit [facility] [address] [place] [address] Zev Sanders MD [address] [place] [address] 04/29/2024 10:45 AM EST Nurse Only [facility] [address] [place] [address] documented as of this encounter Visit Diagnoses Not on filedocumented in this encounter Additional Health Concerns Assessment Noted Time PHQ-9 Depression Total Score: 7 10/14/19 24 11:59 AM EDT documented as of this encounter Care Teams Multiple Effect Evaporator Operator Relationship Specialty Start Date End Date Zev Sanders MD [address] [place] [address] PCP - General Internal Medicine 11/16/19 documented as of this encounter
--- OUTSIDE RECORDS SUMMARY | 2024-04-26 18:02 | XMS_ITS | Encounter Summary ---
Author Organization [employer] Address [address] [facility] 7t [place] [address] Care Team Providers Care Operator Control Room Name Role Phone Zev Sanders MD Primary Care Provider [phone] Encounter Details Date Type Department Care Team ([facility] Contact Info) Description 04/06/2024 Orders Only [...] 04/29/2024 10:00 AM EST Office Visit [facility] [address] [place] [address] Zev Sanders MD [address] [place], [place] [phone] 04/29/2024 10:45 AM EST Nurse Only [facility] [address] [place] [address] documented as of this encounter Procedures Procedure Name Priority Date/Time Associated Diagnosis Comments LACTIC ACID Routine 04/06/2024 1:03 PM EST VENOUS BLOOD GAS Routine 04/06/2024 11:0 5 AM EST XR CHEST 1 VIEW Routine 04/06/2024 10:40 AM EST documented in this encounter Results * Lactic Acid (04/06/2024 1:03 PM EST) [facility] Lactic Acid 0.7 0.5 - 2.0 mmol/L [facility] 04/06/2024 1:03 PM EST 04/06/2024 1:07 PM EST us Generic External Data Provider LAB BLOOD ORDERAB LES Final Result [facility] [address] [place] [address] [phone] * (ABNORMAL) VENOUS BLOOD GAS (04/06/2024 11:05 AM EST) Pathologist [facility] VBG pH 7.43 7.32 - 7.43 [facility] Comment:METER #: [id number] additional_comment: Joshua thompson VBG PCO2 52 mmHg [facility] Comment:METER #: [id number] additional_comment: Joshua thompson VBG PO2 33 mmHg [facility] Comment:METER #: [id number] additional_comment: Cb jay VBG Base Excess 9.5 mmol/L [facility] Comment:METER #: [id number] additional_comment: Joshua thompson VBG HCO3 35(H) 22 - 26 mmol/L [facility] Comment:METER #: [id number] additional_comment: Joshua thompson O2 Sat, Lefty 55.0 % [facility] Comment:METER #: [id number] additional_comment: Joshua thompson 04/06/2024 11:0 5 AM EST 04/06/2024 11:13 AM EST us Generic External Data Provider LAB BLOOD ORDERAB LES Final Result [facility] [address] [place] [address] [phone] * XR Chest 1 View (04/06/2024 10:40 AM EST) Anatomical Region Laterality Modality Chest Radiographic Joy ging 04/06/2024 10:4 0 AM EST Narrative 04/06/2024 11:33 AM EST ? [facility] ?[address] ?[place] [address] ?XRay Report ? Signed ? Patient: Adelia Izquierdo,Deysi D ?MR#: ?? [id number] ? : 1970 ?Acct:[id number] ? Age/Sex: 53 / F ?ADM Date: 01/07/25 ? Loc: HO.ED ? Attending Dr: ? Ordering Physician: Demetrius Valdivia MD ?? Date of Service: 04/06/24 ?? Procedure(s): XR chest 1V ?? Accession Number(s): [id number] ? cc: Zev Sanders MD; Demetrius Valdivia [...] ? Signed By: ?<Electronically signed by Francis Jaeegr MD in OV> ? 04/06/24 1131 ? DD/ 1040 ? TD/TT: 04/06/24 1127 ? Employment Service Specialist: ? Procedure Note Donjose rafaellakshmiwinstonter, Image - 04/06/2024 [place] [address] XRay Report Signed Patient: Deysi Pfeiffer DMR#: [id number] : 1970Acct:[id number] Age/Sex: 53 / FADM Date: 04/06/24 Loc: HO.ED Attending Dr: Ordering Physician: Demetrius Valdivia MD Date of Service: 04/06/24 Procedure(s): XR chest 1V Accession Number(s): [id number] cc: Zev Sanders MD; Demetrius Valdivia MD [...] MD Signed By: <Electronically signed by Francis Jageer MDin OV> 04/06/24 1131 DD/ 1040 TD/TT: 04/06/24 1127 Employment Service Specialist: [facility] External Provider IMG XR PROCEDURES Edited Result - Final documented in this encounter Visit Diagnoses Not on filedocumented in this encounter Additional Health Concerns Assessment Noted Time PHQ-9 Depression Total Score: 7 10/14/19 24 11:59 AM EDT documented as of this encounter Care Teams Operator Control Room Relationship Specialty Start Date End Date Zev Sanders MD [address] [place] [phone] PCP - General Internal Medicine 11/16/19 documented as of this encounter
--- OUTSIDE RECORDS SUMMARY | 2024-04-26 18:02 | XMS_ITS | Encounter Summary ---
Author Organization [employer] Address [address] [place] [address] [address] [address] Care Team Providers Care Field Auditor Name Role Phone Zev Sanders MD Primary Care Provider [phone] Encounter Details Date Type Department Care Team ([facility] Contact Info) Description 04/12/2022 Orders Only [facility] [address] [place] [address] Zev Sanders MD [address] [place], [place] [phone] Social History Tobacco Use Types Packs/Day Years [...] Upcoming Encounters Date Type Department Care Team ([facility] Contact Info) Description 04/29/2024 10:00 AM EST Office Visit [facility] [address] [place], [place] [phone] Zev Sanders MD [address] [place], [place] [phone] 04/29/2024 10:45 AM EST Nurse Only [facility] [address] [place], [place] [phone] documented as of this encounter Procedures Procedure [...] (10/21/2022 2:13 PM EDT) Slide Review VERIFIED [facility] 10/21/2022 2:13 PM EDT 10/21/2022 5:23 PM EDT us Zev Sanders MD LAB BLOOD ORDERABLES Final Result [facility] [address] [place], [place] [phone] * (ABNORMAL) VENOUS BLOOD GAS (09/04/2022 1:17 PM EDT) VBG pH 7.37 7.32 - 7.43 [facility] Comment:METER #: [id number] additional_comment: Cb murpe VBG PCO2 57 mmHg [facility] Comment:METER #: [id number] additional_comment: Cb murpe VBG PO2 48 mmHg [facility] Comment:METER #: [id number] additional_comment: Cb murpe VBG Base Excess 6.2 mmol/L [facility] Comment:METER #: [id number] additional_comment: Cb murpe VBG HCO3 33(H) 22 - 26 mmol/L [facility] Comment:METER #: [id number] additional_comment: Cb murpe O2 Sat, Lefty 77.0 % [facility] Comment:METER #: [id number] additional_comment: Cb murpe 09/04/2022 1:17 PM EDT 09/04/2022 1:23 PM EDT [facility] External Provider LAB BLO OD ORDERABLES Final Result Performing Organization Address [facility]/ZIP Co de Phone Number [facility] [address] [place] [phone] * D Dimer High Sensitivity (09/04/2022 1:10 PM EDT) D Dimer High Sensitivity <150 NG/ML [facility] Comment:D-DIMER HS REFERENCE RANGENote: Our assay reports D-Dimer Units (D- DU).The cut-off value for venous thromboembolic (VTE) disease is230 ng/mL. This value has a very high negative predictivevalue when the patient has a low to moderate clinicalprobability of VTE.The upper limit of normal is 243 ng/mL. 09/04/2022 1:10 PM EDT 09/04/2022 1:18 PM EDT [facility] External Provider LAB BLO OD ORDERABLES Final Result Performing Organization Address [facility] Co de Phone Number [facility] [address] [place] [phone] * B Type Natriuretic Peptide (BNP) (09/04/2022 11:26 AM EDT) B Type Natriuretic Peptide 19 <100 pg/mL [facility] Comment:For those patients w ho are being treated with Natrecor(nesiritide, recombinant BNP), BNP testing should beperformed at least two hours post treatment in order toensure that only endogenous levels of BNP are detected. 09/04/2022 11:2 6 AM EDT 09/04/2022 1:27 PM EDT [facility] External Provider LAB BLO OD ORDERABLES Final Result [facility] [address] [place] [phone] * (ABNORMAL) Comprehensive Metabolic Panel (09/04/2022 11:26 AM EDT) Pathologist [facility] Sodium 142 135 - 145 mmol/L [facility] Potassium 4.2 3.3 - 5.1 mmol/L [facility] Chloride 102 96 - 108 mmol/L [facility] Carbon Dioxide 34(H) 22 - 29 mmol/L [facility] Anion Gap 10(L) 12 - 20 [facility] Urea Nitrogen (BUN) 15 9 - 16 mg/dL [facility] Creatinine, Serum 0.68 0.5 - 1.4 mg/dL [facility] Creatinine Clr Calc Pharmacy 74.8 [facility] Comment:Provided height and weight: 162.56 cm,49 kg.eGFR (calculated from the MDRD study equation) and eCrCl(calculated from the Cockcroft-Gault equation) are based ondifferent parameters and may not yield comparable results.If eCrCl result is absurd, please check patient'sheight/weight. Estimated Glomerular Filt Rate >60 [facility] Comment:NOTE: For -Am erican individuals, multiply the result by 1.210.Chronic Kidney Disease: Estimated GFR < 60 mL/min/1.41h5Wynbig Kidney Disease: Estimated GFR < 15 mL/min/1.73m2 Glucose 112 60 - 115 mg/dL [facility] Calcium 9.4 8.4 - 10.2 mg/dL [facility] Bilirubin, Total 0.7 0.0 - 1.0 mg/dL [facility] Aspartate Amino Transferase 21 5 - 31 U/L [facility] Alanine Aminotransferase 17 0 - 31 U/L [facility] Total Protein 6.7 6.5 - 8.0 g/dL [facility] Albumin Level 4.1 3.5 - 5.0 g/dL [facility] Alkaline Phosphatase 73 39 - 117 U/L [facility] 09/04/2022 11:2 6 AM EDT 09/04/2022 11:33 AM EDT us [facility] External Provider LAB BLO OD ORDERABLES Final Result [facility] [address] [place] [address] [phone] * COVID-19 ID NOW ([employer]) (09/04/2022 11:26 AM EDT) IDNOW SERIAL# [id number] [facility] COVID-19 TEST Negative Negative [facility] COVID-19 NOTE See Note [facility] Comment: Results are for the identification of SARS-CoV2 RNA. TheSARS-CoV2 RNA is generally detectable in respiratory samplesduring the acute phase of infection. Positive results areindicative of the presence of SARS-CoV-2 RNA; clinicalcorrelation with patient history and other diagnosticinformation is necessary to determine patient infectionstatus. Positive results do not rule out bacterial infectionor co- infection with other viruses.Testing facilities within the [facility] and itsterritories are required to report all positive results [...] use by authorized laboratories.Testing performed on the [employer] ID NOW utilizing NAAT. 09/04/2022 11:2 6 AM EDT 09/04/2022 11:33 AM EDT us [facility] Exter nal Provider LAB MOLECULAR DIAGNOSTICS ORDERABLES Final Result [facility] [address] [place], [place] [phone] * (ABNORMAL) CBC auto differential (09/04/2022 11:26 AM EDT) White Blood Count 10.4 4.8 - 10.8 X10*3/uL [facility] Red Blood Count 5.42 4.20 - 5.50 X10*6/uL [facility] Hemoglobin 16.0 12.0 - 16.0 g/dl [facility] Hematocrit 49.3(H) 37.0 - 47.0 % [facility] Mean Corpuscular Volume 91.0 80.0 - 98.0 fL [facility] Mean Corpuscular Hemoglobin 29.5 27.0 - 33.0 pg [facility] Mean Corpuscular HGB Conc 32.5 31.0 - 35.0 g/dl [facility] Red Cell Distribution Width 14.6 11.0 - 16.0 % [facility] Platelet Count 238 160 - 400 X10*3/uL [facility] Mean Platelet Volume 9.5 9.4 - 12.3 fL [facility] Neutrophils Percent Auto 51.2 45 - 73 % [facility] Imm Gran Pct Auto 0.3 0.0 - 0.4 % [facility] Lymphocytes Percent Auto 38.4 20 - 40 % [facility] Monocytes Percent Auto 8.1 2 - 11 % [facility] Eosinophils Percent Auto 1.5 0 - 4 % [facility] Basophils Percent Auto 0.5 0 - 2 % [facility] NRBC Pct Auto 0.0 0.0 - 0.2 /100WBC [facility] Neutrophils Absolute Auto 5.4 2.0 - 8.3 x10*3/uL [facility] Imm Gran Abs Auto 0.03 0.00 - 0.03 X10*3/uL [facility] Lymphocytes Absolute Auto 4.0 1.2 - 4.9 X10*3/uL [facility] Monocytes Absolute Auto 0.8 0.1 - 1.2 X10*3/uL [facility] Eosinophils Absolute Auto 0.2 0.0 - 0.4 X10*3/uL [facility] Basophils Absolute Auto 0.1 0.0 - 0.2 X10*3/uL [facility] NRBC Abs Auto 0.000 0.0 - 0.012 X10*3/uL [facility] 09/04/2022 11:2 6 AM EDT 09/04/2022 11:33 AM EDT us [facility] External Provider LAB BLO OD ORDERABLES Final Result [facility] [address] [place] [address] [phone] documented in this encounter Visit Diagnoses Not on filedocumented in this encounter Care Teams Field Auditor Relationship Specialty Start Date End Date Zev Sanders MD [address] [place] [phone] PCP - General Internal Medicine 11/16/19 documented as of this encounter
--- OUTSIDE RECORDS SUMMARY | 2024-04-26 18:02 | XMS_ITS | Encounter Summary ---
Author Organization [employer] Address [address] [facility] 7 [place] [address] Care Team Providers Care Operations Intelligence Name Role Phone Zev Sanders MD Primary Care Provider [phone] Reason for Visit * Reason Comments Pre-visit Planning SDOH will need to be completed in office. Encounter Details Date Type Department Care Team ([facility] Contact Info) Description 04/21/2024 Patient Outreach [facility] [address] [place], [place] [phone] Zev Sanders MD [address] [place] [address] Pre-visit Planning (SDOH will need to be [...] 04/29/2024 10:00 AM EST Office Visit [facility] [address] [place] [address] Zev Sanders MD [address] [place] [address] 04/29/2024 10:45 AM EST Nurse Only [facility] [address] [place] [address] documented as of this encounter Visit Diagnoses Not on filedocumented in this encounter Additional Health Concerns Assessment Noted Time PHQ-9 Depression Total Score: 7 10/14/19 24 11:59 AM EDT documented as of this encounter Care Teams Operations Intelligence Relationship Specialty Start Date End Date Zev Sanders MD [address] [place] [address] PCP - General Internal Medicine 11/16/19 documented as of this encounter
--- OUTSIDE RECORDS SUMMARY | 2024-04-26 18:02 | XMS_ITS | Encounter Summary ---
Author Organization [employer] Address [address] [facility] 7t [place] [address] Care Team Providers Care Tie Knitter Helper Name Role Phone Zev Sanders MD Primary Care Provider [phone] Encounter Details Date Type Department Care Team ([facility] Contact Info) Description 04/21/2024 Orders Only GENERIC [...] Upcoming Encounters Date Type Department Care Team ([facility] st Contact Info) Description 04/29/2024 10:00 AM EST Office Visit [facility] [address] [place] [address] Zev Sanders MD [address] [place], [place] [phone] 04/29/2024 10:45 AM EST Nurse Only [facility] [address] [place] [address] documented as of this encounter Procedures Procedure Name Priority Date/Time Associated Diagnosis Comments [facility] LOWER EXTREMITY VENOUS DUPLEX BILATERAL Routine 04/21/2024 3:56 PM EST CBC WITH AUTO DIFFERENTIAL Routine 04/21/2024 3:22 PM EST PROTHROMBIN TIME-INR Routine 04/21/2024 3:22 PM EST COMPREHENSIVE METABOLIC PANEL Routine 04/21/2024 3:22 PM EST documented in this encounter Results * [facility] Lower Extremity Venous Duplex Bilateral (04/21/2024 3:56 PM EST) 04/21/2024 3:56 PM EST Narrative [facility] - 04/21/2024 4:23 PM EST ? [facility] ?[address] ?[place] [address] ? Ultrasound Report ? Signed ? Patient: Delvalle Izquierdo,Deysi D ?MR#: ?? [id number] ? : 1970 ?Acct:[id number] ? Age/Sex: 53 / F ?ADM Date: /22/25 ? Loc: HO.ED ? Attending Dr: ? Ordering Physician: Shila Mueller NP ?? Date of Service: 04/21/24 ?? Procedure(s): US venous duplex LE BI ?? Accession Number(s): [id number] ? cc: Zev Sanders MD; Shila Mueller [...] DD/ 1556 ? TD/TT: 04/21/24 1612 ? Manager Requirements: ? Procedure Note Elias, Image - 04/21/[address] [address] Ultrasound Report Signed Patient: Deysi Pfeiffer DMR#: [id number] : 1970Acct:[id number] Age/Sex: 53 / FADM Date: 04/21/24 Loc: HO.ED Attending Dr: Ordering Physician: Shila Mueller NP Date of Service: 04/21/24 Procedure(s): US venous duplex LE BI Accession Number(s): [id number] cc: Zev Sanders MD; Shila Mueller NP [...] 04/21/24 1620 DD/ 1556 TD/TT: 04/21/24 1612 Manager Requirements: us [facility] External Provider CV VASC ULAR PROCEDURES Final Result [facility] [address] [place] [phone] * Prothrombin Time-INR (04/21/2024 3:22 PM EST) Prothrombin Time 10.9 10.9 - 12.4 SEC [facility] INTERNATIONAL NORM RATIO 0.9 0.9 - 1.1 [facility] Comment:INTERNATIONAL NORMAL IZED RATIO (INR) [...] Provider LAB BLOOD ORDERAB LES Final Result [facility] [address] [place], [place] [phone] * (ABNORMAL) Comprehensive Metabolic Panel (04/21/2024 3:22 PM EST) Sodium 143 135 - 145 mmol/L [facility] Potassium 4.9 3.3 - 5.1 mmol/L [facility] Chloride 103 96 - 108 mmol/L [facility] Carbon Dioxide 33(H) 22 - 29 mmol/L [facility] Anion Gap 12 12 - 20 [facility] Urea Nitrogen (BUN) 11 9 - 16 mg/dL [facility] Creatinine, Serum 0.59 0.5 - 1.4 mg/dL [facility] Creatinine Clr Calc Pharmacy 95.2 [facility] Comment:Provided height and weight: 162.56 cm,56.9 kg.eGFR (calculated from the MDRD study equation) and eCrCl(calculated from the Cockcroft-Gault equation) are based ondifferent parameters and may not yield comparable results.If eCrCl result is absurd, please check patient'sheight/weight. Estimated Glomerular Filt Rate >60 [facility] Comment:Chronic Kidney Disea se: Estimated GFR < 60 mL/min/1.56g8Mjjdgt Kidney Disease: Estimated GFR < 15 mL/min/1.73m2 Glucose 116(H) 60 - 115 mg/dL [facility] Calcium 9.1 8.4 - 10.2 mg/dL [facility] Bilirubin, Total 0.3 0.0 - 1.0 mg/dL [facility] Aspartate Amino Transferase 17 5 - 31 U/L [facility] Alanine Aminotransferase 14 0 - 31 U/L [facility] Total Protein 6.6 6.5 - 8.0 g/dL [facility] Albumin Level 3.9 3.5 - 5.0 g/dL [facility] Alkaline Phosphatase 66 39 - 117 U/L [facility] 04/21/2024 3:22 PM EST 04/21/2024 3:24 PM EST us Generic External Data Provider LAB BLOOD ORDERAB LES Final Result [facility] [address] [place] [address] [phone] * (ABNORMAL) CBC auto differential (04/21/2024 3:22 PM EST) White Blood Count 11.6(H) 4.8 - 10.8 X10*3/uL [facility] Red Blood Count 4.26 4.20 - 5.50 X10*6/uL [facility] Hemoglobin 12.4 12.0 - 16.0 g/dl [facility] Hematocrit 39.4 37.0 - 47.0 % [facility] Mean Corpuscular Volume 92.5 80.0 - 98.0 fL [facility] Mean Corpuscular Hemoglobin 29.1 27.0 - 33.0 pg [facility] Mean Corpuscular HGB Conc 31.5 31.0 - 35.0 g/dl [facility] Red Cell Distribution Width 14.6 11.0 - 16.0 % [facility] Platelet Count 241 160 - 400 X10*3/uL [facility] Mean Platelet Volume 9.2(L) 9.4 - 12.3 fL [facility] Neutrophils Percent Auto 84.3(H) 45 - 73 % [facility] Imm Gran Pct Auto 0.6(H) 0.0 - 0.4 % [facility] Lymphocytes Percent Auto 10.4(L) 20 - 40 % [facility] Monocytes Percent Auto 3.6 2 - 11 % [facility] Eosinophils Percent Auto 0.4 0 - 4 % [facility] Basophils Percent Auto 0.7 0 - 2 % [facility] NRBC Pct Auto 0.0 0.0 - 0.2 /100WBC [facility] Neutrophils Absolute Auto 9.8(H) 2.0 - 8.3 x10*3/uL [facility] Imm Gran Abs Auto 0.07(H) 0.00 - 0.03 X10*3/uL [facility] Lymphocytes Absolute Auto 1.2 1.2 - 4.9 X10*3/uL [facility] Monocytes Absolute Auto 0.4 0.1 - 1.2 X10*3/uL [facility] Eosinophils Absolute Auto 0.1 0.0 - 0.4 X10*3/uL [facility] Basophils Absolute Auto 0.1 0.0 - 0.2 X10*3/uL [facility] NRBC Abs Auto 0.000 0.0 - 0.012 X10*3/uL [facility] 04/21/2024 3:22 PM EST 04/21/2024 3:24 PM EST us Generic External Data Provider LAB BLOOD ORDERAB LES Final Result [facility] [address] [place] [address] [phone] documented in this encounter Visit Diagnoses Not on filedocumented in this encounter Additional Health Concerns Assessment Noted Time PHQ-9 Depression Total Score: 7 10/14/19 24 11:59 AM EDT documented as of this encounter Care Teams Tie Knitter Helper Relationship Specialty Start Date End Date Zev Sanders MD [address] [place] [phone] PCP - General Internal Medicine 11/16/19 documented as of this encounter
--- OUTSIDE RECORDS SUMMARY | 2024-04-26 18:02 | XMS_ITS | Encounter Summary ---
Author Organization [employer] Address [address] [facility] 7 [place] [address] Care Team Providers Care Talent Acquisition Coordinator Name Role Phone Zev Sanders MD Primary Care Provider [phone] Reason for Visit * Reason Comments Transition Of Care (Tcm) HDF- Not in ser vice Encounter Details Date Type Department Care Team ([facility] st Contact Info) Description 04/09/2024 Patient Outreach [facility] [address] [place], [place] [phone] Zev Sanders MD [address] [place] [address] Transition Of Care (Tcm) (HDF- Not in [...] Admission/Visit 04/06/24 Date of Discharge 04/08/24 Facility [facility] Diagnosis Pneumonia , RSV Disposition Discharged [...] Description 04/29/2024 10:00 AM EST Office Visit [facility] [address] [place] [address] Zev Sanders MD [address] [place] [address] 04/29/2024 10:45 AM EST Nurse Only [facility] [address] [place] [address] documented as of this encounter Visit Diagnoses Not on filedocumented in this encounter Additional Health Concerns Assessment Noted Time PHQ-9 Depression Total Score: 7 10/14/19 24 11:59 AM EDT documented as of this encounter Care Teams Talent Acquisition Coordinator Relationship Specialty Start Date End Date Zev Sanders MD [address] [place] [address] PCP - General Internal Medicine 11/16/19 documented as of this encounter
--- OUTSIDE RECORDS SUMMARY | 2024-04-26 18:02 | XMS_ITS | Encounter Summary ---
Author Organization [employer] Address [address] [facility] 7 [place] [address] Care Team Providers Care Pre Owned Sales Consultant Name Role Phone Zev Sanders MD Primary Care Provider [phone] Reason for Visit * Reason Comments Transition Of Care (Tcm) HDF #2 attempt _ unable to lvm Encounter Details Date Type Department Care Team ([facility] Contact Info) Description 04/14/2024 Patient Outreach [facility] CHC MED & PEDS [address] [place] [address] Zev Sanders MD [address] [place] [address] Transition Of Care (Tcm) (HDF #2 attempt [...] Admission/Visit 04/06/24 Date of Discharge 04/08/24 Facility [facility] Diagnosis Pnuemonia , RSV Disposition Discharged Home [...] Description 04/29/2024 10:00 AM EST Office Visit [facility] MED & PEDS [address] [place] [address] Zev Sanders MD [address] [place] [address] 04/29/2024 10:45 AM EST Nurse Only [facility] MED & PEDS [address] [place] [address] documented as of this encounter Visit Diagnoses Not on filedocumented in this encounter Additional Health Concerns Assessment Noted Time PHQ-9 Depression Total Score: 7 10/14/19 24 11:59 AM EDT documented as of this encounter Care Teams Pre Owned Sales Consultant Relationship Specialty Start Date End Date Zev Sanders MD [address] [place] [address] PCP - General Internal Medicine 11/16/19 documented as of this encounter
--- OUTSIDE RECORDS SUMMARY | 2024-04-26 18:02 | XMS_ITS | Encounter Summary ---
Author Organization [employer] Address [address] [facility] 7 [place] [address] Care Team Providers Care Sheet Layer Name Role Phone Zev Sanders MD Primary Care Provider [phone] Reason for Visit * Reason Onset Date Comments Nurse Triage 04/20/2024 Encounter Details Date Type Department Care Team ([facility] Contact Info) Description 04/20/2024 Telephone [facility] CHC MED & PEDS [address] [place], [place] [phone] Zev Sanders MD [address] [place] [address] Nurse Triage Social History Tobacco Use Types [...] immediate evaluation. Pt declines to come to [facility] and agrees to go to ED. * [...] 04/29/2024 10:00 AM EST Office Visit [facility] MED & PEDS [address] [place] [address] Zev Sanders MD [address] [place] [address] 04/29/2024 10:45 AM EST Nurse Only [facility] MED & PEDS [address] [place] [address] documented as of this encounter Visit Diagnoses Not on filedocumented in this encounter Additional Health Concerns Assessment Noted Time PHQ-9 Depression Total Score: 7 10/14/19 24 11:59 AM EDT documented as of this encounter Care Teams Sheet Layer Relationship Specialty Start Date End Date Zev Sanders MD [address] [place] [address] PCP - General Internal Medicine 11/16/19 documented as of this encounter
--- OUTSIDE RECORDS SUMMARY | 2024-04-26 18:03 | XMS_ITS | Encounter Summary ---
Author Organization [employer] Address [address] [facility] 7t [place] [address] Care Team Providers Care Clinical Support Tech Name Role Phone Zev Sanders MD Primary Care Provider [phone] Encounter Details Date Type Department Care Team ([facility] Contact Info) Description 07/21/2023 Orders Only [facility] CHC MED & PEDS [address] [place], [place] [phone] Zev Sanders MD [address] [place] [address] Social History Tobacco Use Types Packs/Day Years [...] 10:00 AM EST Office Visit [facility] MED & PEDS [address] [place] [address] Zev Sanders MD [address] [place] [address] 04/29/2024 10:45 AM EST Nurse Only [facility] MED & PEDS [address] [place] [address] documented as of this encounter Visit Diagnoses Not on filedocumented in this encounter Care Teams Clinical Support Tech Relationship Specialty Start Date End Date Zev Sanders MD [address] [place] [address] PCP - General Internal Medicine 11/16/19 documented as of this encounter
--- OUTSIDE RECORDS SUMMARY | 2024-04-26 18:03 | XMS_ITS | Encounter Summary ---
Author Organization [employer] Address 75 [facility] 7t [place] [address] Care Team Providers Care Movie Theater Manager Name Role Phone Zev Sanders MD Primary Care Provider [phone] Reason for Visit * Reason Onset Date Comments Med Refill 07/21/2023 Encounter Details Date Type Department Care Team ([facility] Contact Info) Description 07/21/2023 Telephone [facility] MEDICINE [address] [place] [address] Zev Sanders MD [address] [place] [address] Med Refill Social History Tobacco Use Types [...] 150 MG capsule To be sent to: [facility] - [address] documented in this encounter Plan of Treatment Upcoming Encounters Date Type Department Care Team ([facility] st Contact Info) Description 04/29/2024 10:00 AM EST Office Visit [facility] MED & PEDS [address] [place] [address] Zev Sanders MD [address] [place] [address] 04/29/2024 10:45 AM EST Nurse Only [facility] MED & PEDS [address] [place] [address] documented as of this encounter Visit Diagnoses Not on filedocumented in this encounter Care Teams Movie Theater Manager Relationship Specialty Start Date End Date Zev Sanders MD [address] [place] [address] PCP - General Internal Medicine 11/16/19 documented as of this encounter
--- OUTSIDE RECORDS SUMMARY | 2024-04-26 18:03 | XMS_ITS | Encounter Summary ---
Author Organization [employer] [facility] Address [address] [place] [address] [address], [place] [address] Care Team Providers Care Roving Inspector Name Role Phone Zev Sanders MD Primary Care Provider [phone] Reason for Visit * Reason Comments Med Refill Encounter Details Date Type Department Care Team (Late Contact Info) Description 11/05/2022 Refill [facility] MED & PEDS [address] [place] [address] Zev Sanders MD [address] [place] [address] Chronic low back pain, unspecified back pain [...] Description 04/29/2024 10:00 AM EST Office Visit [facility] MED & PEDS [address] [place] [address] Zev Sanders MD [address] [place], [place] [phone] 04/29/2024 10:45 AM EST Nurse Only [facility] CHC MED & PEDS [address] [place] [address] documented as of this encounter Visit Diagnoses Diagnosis Chronic low back pain, unspecified back pain laterality, unspecified whether sciatica present documented in this encounter Care Teams Roving Inspector Relationship Specialty Start Date End Date Zev Sanders MD [address] [place] [address] PCP - General Internal Medicine 11/16/19 documented as of this encounter
--- OUTSIDE RECORDS SUMMARY | 2024-04-26 18:03 | XMS_ITS | Encounter Summary ---
Author Organization [employer] Address 75 [facility] 7t [place] [address] Care Team Providers Care Milk Deliverer Name Role Phone Zev Sanders MD Primary Care Provider [phone] Reason for Visit * Reason Comments Med Refill Encounter Details Date Type Department Care Team ([facility] Contact Info) Description 03/28/2024 Refill [facility] CHC MED & PEDS [address] [place], [place] [phone] Zev Sandres MD [address] [place] [address] Chronic low back pain, unspecified back pain [...] 10:00 AM EST Office Visit [facility] MED & PEDS [address] [place] [address] Zev Sanders MD [address] [place] [address] 04/29/2024 10:45 AM EST Nurse Only [facility] MED & PEDS [address] [place] [address] documented as of this encounter Visit Diagnoses Diagnosis Chronic low back pain, unspecified back pain laterality, unspecified whether sciatica present documented in this encounter Additional Health Concerns Assessment Noted Time PHQ-9 Depression Total Score: 7 10/14/19 24 11:59 AM EDT documented as of this encounter Care Teams Milk Deliverer Relationship Specialty Start Date End Date Zev Sanders MD [address] [place] [address] PCP - General Internal Medicine 11/16/19 documented as of this encounter
--- OUTSIDE RECORDS SUMMARY | 2024-04-26 18:03 | XMS_ITS | Encounter Summary ---
Author Organization [employer] Address [address] [place] [address] 7 [place] [address] Care Team Providers Care Turbo Electric Operator Name Role Phone Zev Sanders MD Primary Care Provider [phone] Reason for Visit * Reason Onset Date Comments Appointment Request 11/01/2022 Encounter Details Date Type Department Care Team ([facility] Contact Info) Description 11/01/2022 Telephone [facility] CHC MED & PEDS [address] [place], [place] [phone] Zev Sanders MD [address] [place] [address] Appointment Request Social History Tobacco Use Types [...] PE on 10/24/2022. Please contact pt at [phone] documented in this encounter Plan of Treatment Upcoming Encounters Date Type Department Care Team ([facility] st Contact Info) Description 04/29/2024 10:00 AM EST Office Visit [facility] MED & PEDS [address] [place] [address] Zev Sanders MD [address] [place] [address] 04/29/2024 10:45 AM EST Nurse Only [facility] MED & PEDS [address] [place] [address] documented as of this encounter Visit Diagnoses Not on filedocumented in this encounter Care Teams Turbo Electric Operator Relationship Specialty Start Date End Date Zev Sanders MD [address] [place] [address] PCP - General Internal Medicine 11/16/19 documented as of this encounter
--- OUTSIDE RECORDS SUMMARY | 2024-04-26 18:03 | XMS_ITS | Encounter Summary ---
Author Organization [employer] Address [address] [place] [address] 7t [place] [address] Care Team Providers Care Event Planning Manager Name Role Phone Zev Sanders MD Primary Care Provider [phone] Encounter Details Date Type Department Care Team ([facility] Contact Info) Description 10/22/2022 Orders Only [facility] CHC MED & PEDS [address] [place], [place] [phone] Zev Sanders MD [address] [place], [place] [phone] Gastroenteritis (Primary Dx) Social History Tobacco Use [...] Upcoming Encounters Date Type Department Care Team ([facility] Contact Info) Description 04/29/2024 10:00 AM EST Office Visit [facility] CHC MED & PEDS [address] [place], [place] [phone] Zev Sanders MD [address] [place] [address] 04/29/2024 10:45 AM EST Nurse Only [facility] MED & PEDS [address] [place] [address] documented as of this encounter Visit Diagnoses Diagnosis Gastroenteritis- Primary Other and unspecified noninfectious gastroenteritis and colitis documented in this encounter Care Teams Event Planning Manager Relationship Specialty Start Date End Date Zev Sanders MD [address] [place] [address] PCP - General Internal Medicine 11/16/19 documented as of this encounter
== END 2024-04-26 13:52 | disposition home or self-care (01) ==
PROVIDERS: PCP Internal Medicine; Visit Provider Internal Medicine
DX: J96.91 Respiratory failure, unspecified with hypoxia (principal)

== ENCOUNTER → 2024-04-26 13:21 | Outpatient (BNVA) | payer MEDICAID, SELFPAY | PROVIDERS: PCP Internal Medicine; Visit Provider Internal Medicine | DX: J96.91 Respiratory failure, unspecified with hypoxia (principal) | CPT/HCPCS: 94618; 99211 ==

== ENCOUNTER 2024-05-03 12:55 | Outpatient (REF) | payer MEDICAID, SELFPAY ==
--- NOTE | ~2024-05-03 | US_ITS ---
EXAMINATION: US LOWER EXTREMITY VENOUS (REFLUX EXAM), BILATERAL CLINICAL INFORMATION: Varices with inflammation. COMPARISON: April 21, 2024. TECHNIQUE: Color flow triplex imaging and compression Doppler was performed to evaluate both the deep and the superficial systems bilaterally. To evaluate the superficial system, the examination was performed in the upright position. Color-flow Doppler ultrasound and compression ultrasound were utilized. In addition, maneuvers were utilized to demonstrate reflux. FINDINGS: 1. DEEP VENOUS ULTRASOUND OF THE RIGHT LOWER EXTREMITY: Common Femoral Vein: Compressible, normal respiratory variation and augmented flow. Femoral Vein: Compressible, normal color flow and augmentation. Popliteal Vein: Compressible, normal augmentation. Deep Reflux: There is no evidence of reflux in the deep system in either the common femoral vein, superficial femoral or the popliteal vein. There is no evidence of a Rossi's cyst. Probable 1.8 cm lipoma, mid right thigh. 2. SUPERFICIAL ULTRASOUND WITH DOPPLER OF RIGHT LOWER EXTREMITY: GREAT SAPHENOUS VEIN: Saphenofemoral Junction: 0.5 cm; Reflux: 0 ms Proximal Thigh: 0.3 cm; Reflux: 0 ms Mid Thigh: 0.2 cm; Reflux: 0 ms Distal Thigh: 0.2 cm; Reflux: 0 ms At Knee: 0.2 cm; Reflux: 0 ms Proximal Calf: 0.1 cm; Reflux: 0 ms Mid Calf: 0.1 cm; Reflux: 0 ms Distal Calf: 0.2 cm; Reflux: 0 ms DUPLICATED MEDIAL GREAT SAPHENOUS VEIN: Diameter: None imaged Reflux: NA DUPLICATED LATERAL GREAT SAPHENOUS VEIN: Diameter: None imaged Reflux: NA SMALL SAPHENOUS VEIN: Saphenopopliteal Junction: 0.1 cm; Reflux: 0 ms Proximal: 0.2 cm; Reflux: 0 ms Distal: 0.2 cm; Reflux: 0 ms VEIN OF GIACOMINI: Size: 0.3 cm. Reflux: NA PERFORATORS: Location: Small saphenous vein, throughout the calf Size: Range: 0.1-0.2 cm. Reflux: NA VARICOSITIES: Location: None imaged. Size: NA Reflux: NA 3. DEEP VENOUS ULTRASOUND OF THE LEFT LOWER EXTREMITY: Common Femoral Vein: Compressible, normal respiratory variation and augmented flow. Femoral Vein: Compressible, normal color flow and augmentation. Popliteal Vein: Compressible, normal augmentation. Deep Reflux: There is no evidence of reflux in the deep system in either the common femoral vein, superficial femoral or the popliteal vein. There is no evidence of a Rossi's cyst. Probable 1.1 cm lipoma, mid thigh. 4. SUPERFICIAL ULTRASOUND WITH DOPPLER OF LEFT LOWER EXTREMITY: GREAT SAPHENOUS VEIN: Saphenofemoral Junction: 0.5 cm; Reflux: 0 ms Proximal Thigh: 0.3 cm; Reflux: 0 ms Mid Thigh: 0.2 cm; Reflux: 0 ms Distal Thigh: Not seen . At Knee: Not seen . Proximal Calf: Not seen . Mid Calf: 0.1 cm; Reflux: 0 ms Distal Calf: 0.2 cm; Reflux: 0 ms DUPLICATED MEDIAL GREAT SAPHENOUS VEIN: Diameter: 0.2 cm. Reflux: NA DUPLICATED LATERAL GREAT SAPHENOUS VEIN: Diameter: None imaged. Reflux: NA SMALL SAPHENOUS VEIN: Saphenopopliteal Junction: 0.5 cm; Reflux: 0 ms Proximal: 0.5 cm; Reflux: 0 ms Distal: 0.3 cm; Reflux: 0 ms VEIN OF GIACOMINI: Size: NA Reflux: NA PERFORATORS: Location: Small saphenous vein. Size: Range: 0.1-0.2 cm. Reflux: NA VARICOSITIES: Location: None Imaged Size: NA Reflux: NA US/US venous duplex LE BI IMPRESSION: Right: No venous insufficiency. Perforators in the small saphenous vein. Left: No venous insufficiency. Perforators in the small saphenous vein. Electronically signed by: Francis Connelly MD 05/03/2024 03:35 PM EST
--- OUTSIDE RECORDS SUMMARY | 2024-05-03 14:14 | XMS_ITS | Encounter Summary ---
Author Organization [employer] Address 75 [facility] 7 [place] [address] Care Team Providers Care Focused Factory Manager Name Role Phone Zev Sanders MD Primary Care Provider [phone] Reason for Visit * Reason Comments Transition Of Care (Tcm) HDF- Not in ser vice Encounter Details Date Type Department Care Team ([facility] Contact Info) Description 04/09/2024 Patient Outreach [facility] CHC MED & PEDS [address] [place], [place] [phone] Zev Sanders MD [address] [place], [place] [phone] Transition Of Care (Tcm) (HDF- Not in [...] encounter Miscellaneous Notes * Significant Event - aFbiola Mcclure - 04/12/2024 8:59 AM EST 04/12/24 0857 Hospital Discharges and Admission for [facility] Type of Visit Hospital Admission Date of Admission/Visit 04/06/24 Date of Discharge 04/08/24 Facility [facility] Diagnosis Pneumonia , RSV Disposition Discharged Home Follow-Up Actions Follow-Up Needed Provider appointment Follow-Up Outcome Disconnected Phone Initial Contact Date 04/09/24 HERIBERTO Sood placed outbound call to patient [...] Upcoming Encounters Date Type Department Care Team ([facility] st Contact Info) Description 05/10/2024 1:15 PM EST Office Visit [facility] CHC MED & PEDS [address] [place] [address] Zev Sanders MD [address] [place] [address] 07/01/2024 11:00 AM EDT Nurse Only [facility] CHC MED & PEDS [address] [place] [address] documented as of this encounter Visit Diagnoses Not on filedocumented in this encounter Additional Health Concerns Assessment Noted Time PHQ-9 Depression Total Score: 7 10/14/19 24 11:59 AM EDT documented as of this encounter Care Teams Focused Factory Manager Relationship Specialty Start Date End Date Zev Sanders MD [address] [place] [address] PCP - General Internal Medicine 11/16/19 documented as of this encounter
--- OUTSIDE RECORDS SUMMARY | 2024-05-03 14:14 | XMS_ITS | Encounter Summary ---
Author Organization [employer] Address 75 [facility] 7t [place] [address] Care Team Providers Care Complaint Supervisor Name Role Phone Zev Sanders MD Primary Care Provider [phone] Encounter Details Date Type Department Care Team ([facility] Contact Info) Description 04/06/2024 Orders Only GENERIC [...] Upcoming Encounters Date Type Department Care Team ([facility] st Contact Info) Description 05/10/2024 1:15 PM EST Office Visit [facility] MED & PEDS [address] [place] [address] Zev Sanders MD [address] [place] [address] 07/01/2024 11:00 AM EDT Nurse Only [facility] MED & PEDS [address] [place] [address] documented as of this encounter Procedures Procedure Name Priority Date/Time Associated Diagnosis Comments LACTIC ACID Routine 04/06/2024 1:03 PM EST VENOUS BLOOD GAS Routine 04/06/2024 11:0 5 AM EST XR CHEST 1 VIEW Routine 04/06/2024 10:40 AM EST documented in this encounter Results * Lactic Acid (04/06/2024 1:03 PM EST) Lactic Acid 0.7 0.5 - 2.0 mmol/L [facility] 04/06/2024 1:03 PM EST 04/06/2024 1:07 PM EST us Generic External Data Provider LAB BLOOD ORDERAB LES Final Result [facility] [address] [place] [address] [phone] * (ABNORMAL) VENOUS BLOOD GAS (04/06/2024 11:05 AM EST) VBG pH 7.43 7.32 - 7.43 [facility] Comment:METER #: [id number] additional_comment: Joshua thompson VBG PCO2 52 mmHg [facility] Comment:METER #: [id number] additional_comment: Joshua thompson VBG PO2 33 mmHg [facility] Comment:METER #: [id number] additional_comment: Cb jay VBG Base Excess 9.5 mmol/L [facility] Comment:METER #: [id number] additional_comment: Cb jay VBG HCO3 35(H) 22 - 26 mmol/L [facility] Comment:METER #: [id number] additional_comment: Joshua thompson O2 Sat, Lefty 55.0 % [facility] Comment:METER #: [id number] additional_comment: Joshua thompson 04/06/2024 11:0 5 AM EST 04/06/2024 11:13 AM EST us Generic External Data Provider LAB BLOOD ORDERAB LES Final Result [facility] [address] [place] [phone] * XR Chest 1 View (04/06/2024 10:40 AM EST) Anatomical Region Laterality Modality Chest Radiographic Joy ging 04/06/2024 10:4 0 AM EST Narrative 04/06/2024 11:33 AM EST ? [facility] ?[address] ?[place] [address] ?XRay Report ? Signed ? Patient: Deysi Pfeiffer D ?MR#: ?? [id number] ? : 1970 ?Acct:[id number] ? Age/Sex: 53 / F ?ADM Date: 01/07/25 ? Loc: HO.ED ? Attending Dr: ? Ordering Physician: Demetrius Valdivia MD ?? Date of Service: 04/06/24 ?? Procedure(s): XR chest 1V ?? Accession Number(s): [id number] ? cc: Zev Sanders MD; Demetrius Valdivia [...] DD/ 1040 ? TD/TT: 04/06/24 1127 ? Obiee Consultant: ? Procedure Note Travis Griffin - 04/06/2024 [place] [address] XRay Report Signed Patient: Deysi Pfeiffer DMR#: [id number] : 1970Acct:[id number] Age/Sex: 53 / FADM Date: 04/06/24 Loc: HO.ED Attending Dr: Ordering Physician: Demetrius Valdivia MD Date of Service: 04/06/24 Procedure(s): XR chest 1V Accession Number(s): [id number] cc: Zev Sanders MD; Demetrius Valdivia MD [...] 04/06/24 1131 DD/ 1040 TD/TT: 04/06/24 1127 Obiee Consultant: [facility] External Provider IMG XR PROCEDURES Edited Result - Final documented in this encounter Visit Diagnoses Not on filedocumented in this encounter Additional Health Concerns Assessment Noted Time PHQ-9 Depression Total Score: 7 10/14/19 24 11:59 AM EDT documented as of this encounter Care Teams Complaint Supervisor Relationship Specialty Start Date End Date Zev Sanders MD [address] [place] [address] PCP - General Internal Medicine 11/16/19 documented as of this encounter
--- OUTSIDE RECORDS SUMMARY | 2024-05-03 14:14 | XMS_ITS | Encounter Summary ---
Author Organization [employer] Address 75 [facility] 7t [place] [address] Care Team Providers Care Fresh Foods Cake Decorator Name Role Phone Zev Sanders MD Primary Care Provider [phone] Encounter Details Date Type Department Care Team (Latest Contact Info) Description 05/01/2024 Travel Social History Tobacco Use Types Packs/Day Years [...] Care Team (Late st Contact Info) Description 05/10/2024 1:15 PM EST Office Visit [facility] MED & PEDS [address] [place] [address] Zev Sanders MD [address] [place] [address] 07/01/2024 11:00 AM EDT Nurse Only [facility] MED & PEDS [address] [place] [address] documented as of this encounter Visit Diagnoses Not on filedocumented in this encounter Additional Health Concerns Assessment Noted Time PHQ-9 Depression Total Score: 7 10/14/19 24 11:59 AM EDT documented as of this encounter Care Teams Fresh Foods Cake Decorator Relationship Specialty Start Date End Date Zev Sanders MD [address] [place] [address] PCP - General Internal Medicine 11/16/19 documented as of this encounter
--- OUTSIDE RECORDS SUMMARY | 2024-05-03 14:14 | XMS_ITS | Encounter Summary ---
Author Organization [employer] Address 75 [facility] 7 [place] [address] Care Team Providers Care Credit Operations Specialist Name Role Phone Zev Sanders MD Primary Care Provider [phone] Reason for Visit * Reason Onset Date Comments No Show 04/29/2024 Encounter Details Date Type Department Care Team ([facility] Contact Info) Description 04/29/2024 Telephone [facility] CHC MED & PEDS [address] [place], [place] [phone] Zev Sanders MD [address] [place] [address] No Show Social History Tobacco Use Types Packs/Day Years [...] encounter Miscellaneous Notes * Telephone Encounter - Ronak Tobin - 04/29/2024 10:31 AM EST 04/29/24 no show for hosp f/u documented in this encounter Plan of Treatment Upcoming Encounters Date Type Department Care Team (Late st Contact Info) Description 05/10/2024 1:15 PM EST Office Visit [facility] MED & PEDS [address] [place] [address] Zev Sanders MD [address] [place] [address] 07/01/2024 11:00 AM EDT Nurse Only [facility] MED & PEDS [address] [place] [address] documented as of this encounter Visit Diagnoses Not on filedocumented in this encounter Additional Health Concerns Assessment Noted Time PHQ-9 Depression Total Score: 7 10/14/19 24 11:59 AM EDT documented as of this encounter Care Teams Credit Operations Specialist Relationship Specialty Start Date End Date Zev Sanders MD [address] [place] [address] PCP - General Internal Medicine 11/16/19 documented as of this encounter
--- OUTSIDE RECORDS SUMMARY | 2024-05-03 14:14 | XMS_ITS | Encounter Summary ---
Author Organization [employer] Address 75 [facility] 7 [place] [address] Care Team Providers Care Product Mgmt Dev Manager Name Role Phone Zev Sanders MD Primary Care Provider [phone] Reason for Visit * Reason Onset Date Comments CHART PREP 04/28/2024 Encounter Details Date Type Department Care Team ([facility] Contact Info) Description 04/28/2024 Telephone [facility] CHC MED & PEDS [address] [place], [place] [phone] Zev Sanders MD [address] [place] [address] CHART PREP Social History Tobacco Use Types Packs/Day Years [...] encounter Miscellaneous Notes * Telephone Encounter - Hever Zapien MA - 04/28/2024 10:30 AM EST Chart Prep Labs: done Images: done Vaccines due: yes Referrals: complete Screenings: mammogram Overdue care gaps: Sbirt, SDOH, PHQ-9 documented in this encounter Plan of Treatment Upcoming Encounters Date Type Department Care Team (Late st Contact Info) Description 05/10/2024 1:15 PM EST Office Visit [facility] MED & PEDS [address] [place] [address] Zev Sanders MD [address] [place] [address] 07/01/2024 11:00 AM EDT Nurse Only [facility] MED & PEDS [address] [place] [address] documented as of this encounter Visit Diagnoses Not on filedocumented in this encounter Additional Health Concerns Assessment Noted Time PHQ-9 Depression Total Score: 7 10/14/19 24 11:59 AM EDT documented as of this encounter Care Teams Product Mgmt Dev Manager Relationship Specialty Start Date End Date Zev Sanders MD [address] [place] [address] PCP - General Internal Medicine 11/16/19 documented as of this encounter
--- OUTSIDE RECORDS SUMMARY | 2024-05-03 14:14 | XMS_ITS | Encounter Summary ---
Author Organization [employer] Address 75 [facility] 7 [place] [address] Care Team Providers Care Pulmonologist Intensivist Name Role Phone Zev Sanders MD Primary Care Provider [phone] Reason for Visit * Reason Onset Date Comments Appointment Request 2024 Encounter Details Date Type Department Care Team ([facility] st Contact Info) Description 2024 Telephone [facility] MEDICINE [address] [place] [address] Zev Sanders MD [address] [place] [address] Appointment Request Social History Tobacco Use Types [...] Miscellaneous Notes * Telephone Encounter - Anika Lopez RN - 2024 2:06 PM EST TC with patient. Patient states she is feeling good. Offered multiple appointments for hospital FU. Appt scheduled 05/10/24. Patient will call with any further needs or questions. * Telephone Encounter - Ronit Whitfield - 2024 9:12 AM EST Tc from pt requesting a callback as pt had to canceled hospital follow up and will like to reschedule. documented in this encounter Plan of Treatment Upcoming Encounters Date Type Department Care Team (Late st Contact Info) Description 05/10/2024 1:15 PM EST Office Visit [facility] MED & PEDS [address] [place] [address] Zev Sanders MD [address] [place] [address] 07/01/2024 11:00 AM EDT Nurse Only [facility] MED & PEDS [address] [place] [address] documented as of this encounter Visit Diagnoses Not on filedocumented in this encounter Additional Health Concerns Assessment Noted Time PHQ-9 Depression Total Score: 7 10/14/19 24 11:59 AM EDT documented as of this encounter Care Teams Pulmonologist Intensivist Relationship Specialty Start Date End Date Zev Sanders MD [address] [place] [address] PCP - General Internal Medicine 11/16/19 documented as of this encounter
--- OUTSIDE RECORDS SUMMARY | 2024-05-03 14:15 | XMS_ITS | Encounter Summary ---
Author Organization [employer] [facility] Address [address] [facility] [address] [place] [address] Care Team Providers Care [employer] Dean Name Role Phone Zev Sanders MD Primary Care Provider [phone] Encounter Details Date Type Department Care Team ([facility] Contact Info) Description 12/24/2022 Orders Only [facility] [address] [place] [address] ProviderJosh MD Social History Tobacco Use Types [...] Department Care Team (Late Contact Info) Description 05/10/2024 1:15 PM EST Office Visit [facility] [address] [place] [address] Zev Sanders MD [address] [place] [address] 07/01/2024 11:00 AM EDT Nurse Only [facility] MED [facility] PED[facility] [address] [place] [address] documented as of this encounter Procedures Procedure Name Priority Date/Time Associated Diagnosis Comments HM PAP/HPV Routine 01/15/2022 documented in this encounter Results * Hm Pap Smear (01/15/2022) us Historical Provider HEALTH MAINTENANCE Final Result documented in this encounter Visit Diagnoses Not on filedocumented in this encounter Care Teams [employer] Dean Relationship Specialty Start Date End Date Zev Sanders MD [address] [place] [phone] PCP - General Internal Medicine 11/16/19 documented as of this encounter
--- OUTSIDE RECORDS SUMMARY | 2024-05-03 14:15 | XMS_ITS | Clinical Summary ---
Author Organization [employer] Address [address] [place] [address] Care Team Providers Care Tire Adjuster Name Role Phone Zev Sanders MD Primary Care Provider [phone] Allergies No known active allergies Medications tiotropium [...] cleanup (will not trigger notification to Pharmacy)) cyclobenzaprin e (Flexeril) 10 MG tablet Take 1 tablet (10 mg) by mouth 3 times daily for 10 days. 30 tablet 07/22/19 24 2024 Discontinued(M ed list cleanup (will not trigger notification to Pharmacy)) albuterol 108 (90 Base) MCG/ACT inhaler Inhale [...] Encounters Date Type Department Care Team Description 2024 Telephone [facility] [address] [place] [address] Zev Sanders MD Appointment Request 05/01/2024 Travel 04/29/2024 Telephone [facility]S [address] [place] [address] Zev Sanders MD No Show 04/28/2024 Telephone [facility] P[facility] [address] [place] [address] Zev Sanders MD CHART PREP 04/22/2024 Telephone [facility] [address] [place] [address] Zev Sanders MD Results 04/21/2024 Orders Only GENERIC EXTERNAL DATA DEPARTMENT Provider, Generic External Data 04/21/2024 Patient Outreach [facility] [address] [place] [address] Zev Sanders MD Transition Of Care (Tcm) (HDF scheduled. ) 04/21/2024 Patient Outreach [facility] [address] [place] [address] Zev Sanders MD Pre-visit Planning (SDOH will need to be completed in office. ) 04/20/2024 Telephone [facility] [address] [place] [address] Zev Sanders MD Nurse Triage 04/14/2024 Patient Outreach [facility] [address] [place] [address] Zev Salvador MD Transition Of Care (Tcm) (HDF #2 attempt _ unable to lvm) 04/09/2024 Patient Outreach [facility] [address] [place] [address] Zev Sanders MD Transition Of Care (Tcm) (HDF- Not in service) 04/06/2024 Orders Only GENERIC EXTERNAL DATA DEPARTMENT Provider, Generic External Data 03/28/2024 Refill [facility] [address] [place] [address] Zev Sanders MD Chronic low back pain, unspecified back pain laterality, unspecified whether sciatica present 03/04/2024 Telephone [facility] [address] [place] [address] Zev Sanders MD [employer] Paperwork ot renew O2 03/01/2024 Refill [facility] [address] [place] [address] Zev Sanders MD Chronic low back pain, unspecified back pain laterality, unspecified whether sciatica present 02/03/2024 Refill [facility] [address] [place] [address] Zev Sanders MD Chronic low back pain, unspecified back pain laterality, unspecified whether sciatica present from Last 3 Months Immunizations Name Administration Dates Next Due Influenza injectable quadriv alent IIV4 with preservative 04/29/2024,12/19/2017,12/27/2016,12/31 Influenza injectable quadriv alent preservative free 01/23/2023 Influenza, IIV3, injectable 05/21/2014, 2,03/05/2011 Influenza, seasonal, injecta ble, preservative free 01/07/2015 Pneumococcal Conjugate PCV 20 04/29/2024 Pneumococcal Polysaccharide PPSV23 12/19/2017 Tdap 04/29/2016 Zoster, Recombinant 04/29/2024 Social History Tobacco Use Types Packs/Day Years [...] Description 05/10/2024 1:15 PM EST Office Visit [facility] P[facility] [address] [place] [address] Zev Sanders MD [address] [place] [address] 07/01/2024 11:00 AM EDT Nurse Only [facility] [address] [place] [address] Health Maintenance Due Date Last Done Comments CT Colonography 1970 Colonoscopy 1970 FIT 1970 FOBT 1970 HIV Screening 1970 Sigmoidoscopy 1970 Alcohol/Substance Use Screening 1982 Hepatitis A Vaccines (1 of 2 - Risk 2-dose series) 1989 Hepatitis B Vaccines (1 of 3 - 19+ 3-dose series) 1989 SDOH Screening 10/17/2023 10/16/2022 Mammogram 10/18/2023 10/17/2021, 12/04/2017 COVID-19 Vaccine ( - season) 2023 Zoster Vaccines (2 of 2) 06/24/2024 04/29/2024 Depression Screening 10/13/2024 10/14/2023, 10/14/19 Tobacco Screening [...] series) 2045 Hepatitis C Screening Completed 11/12/2021 Influenza Vaccine Completed 04/29/2024, , 12/19/2017, Additional history exists Pneumococcal Vaccine: 50+ Years Completed 04/29/2024, 12/19/2017 HIB Vaccines Aged Out No longer eligi [...] Recently Relevant to Health Maintenance Results * [facility] US Lower Extremity Venous Duplex Bilateral (04/21/2024 3:56 PM EST) 04/21/2024 3:56 PM EST Narrative [facility] - 04/21/2024 4:23 PM EST ? [facility] ?[address] ?[place] [address] ? Ultrasound Report ? Signed ? Patient: Delvalle Izquierdo,Deysi D ?MR#: ?? [id number] ? : 1970 ?Acct:[id number] ? Age/Sex: 53 / F ?ADM Date: 04/21/24 ? Loc: HO.ED ? Attending Dr: ? Ordering Physician: Shila Mueller NP ?? Date of Service: 04/21/24 ?? Procedure(s): US venous duplex LE BI ?? Accession Number(s): [id number] ? cc: Zev Sanders MD; Shila Mueller [...] DD/ 1556 ? TD/TT: 04/21/24 1612 ? Grinder Gear: ? Procedure Note Elias, Image - 04/21/[address] [address] Ultrasound Report Signed Patient: Deysi Pfeiffer DMR#: [id number] : 1970Acct:[id number] Age/Sex: 53 / FADM Date: 04/21/24 Loc: HO.ED Attending Dr: Ordering Physician: Shila Mueller NP Date of Service: 04/21/24 Procedure(s): US venous duplex LE BI Accession Number(s): [id number] cc: Zev Sanders MD; Shila Mueller NP [...] 04/21/24 1620 DD/ 1556 TD/TT: 04/21/24 1612 Grinder Gear: [facility] External Provider CV VASC ULAR PROCEDURES Final Result [facility] [address] [place] [address] [phone] * (ABNORMAL) CBC auto differential (04/21/2024 3:22 PM EST) White Blood Count 11.6(H) 4.8 - 10.8 X10*3/uL [facility] Red Blood Count 4.26 4.20 - 5.50 X10*6/uL [facility] Hemoglobin 12.4 12.0 - 16.0 g/dl [facility] Hematocrit 39.4 37.0 - 47.0 % [facility] Mean Corpuscular Volume 92.5 80.0 - 98.0 fL [facility] Mean Corpuscular Hemoglobin 29.1 27.0 - 33.0 pg [facility] Mean Corpuscular HGB Conc 31.5 31.0 - 35.0 g/dl [facility] Red Cell Distribution Width 14.6 11.0 - 16.0 % [facility] Platelet Count 241 160 - 400 X10*3/uL [facility] Mean Platelet Volume 9.2(L) 9.4 - 12.3 fL [facility] Neutrophils Percent Auto 84.3(H) 45 - 73 % [facility] Imm Gran Pct Auto 0.6(H) 0.0 - 0.4 % [facility] Lymphocytes Percent Auto 10.4(L) 20 - 40 % [facility] Monocytes Percent Auto 3.6 2 - 11 % [facility] Eosinophils Percent Auto 0.4 0 - 4 % [facility] Basophils Percent Auto 0.7 0 - 2 % [facility] NRBC Pct Auto 0.0 0.0 - 0.2 /100WBC [facility] Neutrophils Absolute Auto 9.8(H) 2.0 - 8.3 x10*3/uL [facility] Imm Gran Abs Auto 0.07(H) 0.00 - 0.03 X10*3/uL [facility] Lymphocytes Absolute Auto 1.2 1.2 - 4.9 X10*3/uL [facility] Monocytes Absolute Auto 0.4 0.1 - 1.2 X10*3/uL [facility] Eosinophils Absolute Auto 0.1 0.0 - 0.4 X10*3/uL [facility] Basophils Absolute Auto 0.1 0.0 - 0.2 X10*3/uL [facility] NRBC Abs Auto 0.000 0.0 - 0.012 X10*3/uL [facility] 04/21/2024 3:22 PM EST 04/21/2024 3:24 PM EST us Generic External Data Provider LAB BLOOD ORDERAB LES Final Result [facility] [address] [place] [address] [place] [phone] [phone] * Prothrombin Time-INR (04/21/2024 3:22 PM EST) Prothrombin Time 10.9 10.9 - 12.4 SEC [facility] INTERNATIONAL NORM RATIO 0.9 0.9 - 1.1 [facility] Comment:INTERNATIONAL NORMAL IZED RATIO (INR) [...] Provider LAB BLOOD ORDERAB LES Final Result [facility] [address] [place] [address] [phone] * (ABNORMAL) Comprehensive Metabolic Panel (04/21/2024 3:22 PM EST) Pathologist [facility] Sodium 143 135 - 145 mmol/L [facility] Potassium 4.9 3.3 - 5.1 mmol/L [facility] Chloride 103 96 - 108 mmol/L [facility] Carbon Dioxide 33(H) 22 - 29 mmol/L [facility] Anion Gap 12 12 - 20 [facility] Urea Nitrogen (BUN) 11 9 - 16 mg/dL [facility] Creatinine, Serum 0.59 0.5 - 1.4 mg/dL [facility] Creatinine Clr Calc Pharmacy 95.2 [facility] Comment:Provided height and weight: 162.56 cm,56.9 kg.eGFR (calculated from the MDRD study equation) and eCrCl(calculated from the Cockcroft-Gault equation) are based ondifferent parameters and may not yield comparable results.If eCrCl result is absurd, please check patient'sheight/weight. Estimated Glomerular Filt Rate >60 [facility] Comment:Chronic Kidney Disea se: Estimated GFR < 60 mL/min/1.67a1Tgmwuz Kidney Disease: Estimated GFR < 15 mL/min/1.73m2 Glucose 116(H) 60 - 115 mg/dL [facility] Calcium 9.1 8.4 - 10.2 mg/dL [facility] Bilirubin, Total 0.3 0.0 - 1.0 mg/dL [facility] Aspartate Amino Transferase 17 5 - 31 U/L [facility] Alanine Aminotransferase 14 0 - 31 U/L [facility] Total Protein 6.6 6.5 - 8.0 g/dL [facility] Albumin Level 3.9 3.5 - 5.0 g/dL [facility] Alkaline Phosphatase 66 39 - 117 U/L [facility] 04/21/2024 3:22 PM EST 04/21/2024 3:24 PM EST us Generic External Data Provider LAB BLOOD ORDERAB LES Final Result Performing Organization Address City/[facility] Co de Phone Number [facility] [address] [place] [phone] * Lactic Acid (04/06/2024 1:03 PM EST) Lactic Acid 0.7 0.5 - 2.0 mmol/L [facility] 04/06/2024 1:03 PM EST 04/06/2024 1:07 PM EST Generic External Data Provider LAB BLOOD ORDERAB LES Final Result Performing Organization Address [facility] Co de Phone Number [facility] [address] [place] [phone] * (ABNORMAL) VENOUS BLOOD GAS (04/06/2024 11:05 AM EST) VBG pH 7.43 7.32 - 7.43 [facility] Comment:METER #: [id number] additional_comment: Cb thompson VBG PCO2 52 mmHg [facility] Comment:METER #: [id number] additional_comment: Cb thompson VBG PO2 33 mmHg [facility] Comment:METER #: [id number] additional_comment: Cb thompson VBG Base Excess 9.5 mmol/L [facility] Comment:METER #: [id number] additional_comment: Cb thompson VBG HCO3 35(H) 22 - 26 mmol/L [facility] Comment:METER #: [id number] additional_comment: Cb thompson O2 Sat, Lefty 55.0 % [facility] Comment:METER #: [id number] additional_comment: Cb jay 04/06/2024 11:0 5 AM EST 04/06/2024 11:13 AM EST us Generic External Data Provider LAB BLOOD ORDERAB LES Final Result Performing Organization Address City/State/[facility] Co de Phone Number [facility] [address] [place] [address] [phone] * XR Chest 1 View (04/06/2024 10:40 AM EST) Anatomical Region Laterality Modality Chest Radiographic Joy ging 04/06/2024 10:4 0 AM EST Narrative 04/06/2024 11:33 AM EST ? [facility] ?[address] ?[place] [address] ?XRay Report ? Signed ? Patient: Delvalle Izquierdo,Deysi D ?MR#: ?? [id number] ? : 1970 ?Acct:[id number] ? Age/Sex: 53 / F ?ADM Date: 01/07/25 ? Loc: HO.ED ? Attending Dr: ? Ordering Physician: Demetrius Valdivia MD ?? Date of Service: 04/06/24 ?? Procedure(s): XR chest 1V ?? Accession Number(s): [id number] ? cc: Zev Sanders MD; Demetrius Valdivia [...] DD/ 1040 ? TD/TT: 04/06/24 1127 ? Grinder Gear: ? Procedure Note Donemberinterpreter, Image - 04/06/[address] [address] XRay Report Signed Patient: Deysi Pfeiffer DMR#: [id number] : 1970Acct:[id number] Age/Sex: 53 / FADM Date: 04/06/24 Loc: HO.ED Attending Dr: Ordering Physician: Demetrius Valdivia MD Date of Service: 04/06/24 Procedure(s): XR chest 1V Accession Number(s): [id number] cc: Zev Sanders MD; Demetrius Valdivia MD [...] 04/06/24 1131 DD/ 1040 TD/TT: 04/06/24 1127 Grinder Gear: [facility] External Provider IMG XR PROCEDURES Edited Result - Final * Cologuard?? colon cancer screening (03/10/2023 2:14 PM EST) Cologuard Result Negative Negative 03/21/20 1:56 AM EST [employer] (CLIA #:[id number]) Comment: NEGATIVE TEST RESULT. A negative Cologuard [...] cancer. ??Following a negative Cologuard result, the [place] [employer] and U.S. Multi-Society Task Force screening guidelines recommend a Cologuard re-screening interval of 3 years. References: [place] [employer] Guideline for Colorectal Cancer Screening: https://www.cancer.org/cancer/phlou-oyqmzk-rbovxg/ldadcieeq-dppnizknq-yvkvcbp/ac s-rec ommendations.html.; Edgar DK, Antonio CR, Salma CorderoK, Colorectal Cancer Screening: Recommendations for Physicians and Patients from the U.S. Multi-Society Task Force on Colorectal Cancer Screening , Am J Gastroenterology 2017; 112:5530-4144. TEST DESCRIPTION: Composite algorithmic analysis of stool [...] Luis Robles al, N Engl J Med 2014;370(14):7497-2327.) Cologuard may produce a false negative or false positive result (no colorectal cancer or precancerous polyp present at colonoscopy follow up). A negative Cologuard test result does not guarantee the absence of CRC or advanced adenoma (pre-cancer). The current Cologuard screening interval is every 3 years. ([place] [employer] and U.S. Multi-Society Task Force). Cologuard performance data in a 10,000 patient pivotal study using colonoscopy as the reference method can be accessed at the following location: www.[employer].Clicks for a Cause/results. Additional description of the Cologuard test process, warnings and precautions can be found at www.RevoDeals.com. Stool specimen (specimen) 03/10/2023 2:14 PM EST 03/12/2023 8:29 PM EST Zev Sanders MD LAB MOLECULAR DIAGNOSTICS O RDERABLES Final Result Performing Organization Address City/[facility]/ZIP Co de Phone Number [employer] (CLIA #:[id number]) [address] [place] [address], * HPV E6/E7 RFLX VANNESSA 16 18/45 (01/15/2022 10:19 AM EDT) HPV mRNA E6/E7 rflx Not Detected Not Detected [facility] Comment: Methodology: Area Secretary-Mediated Amplification This assay detects E6/E7 viral messenger RNA (mRNA) from 14 high-risk HPV types (16,18,31,33,35,39,45,51,52,56,58,59,66,68). Cervical sources are required for HPV testing. If a vaginal source from a patient who has had a total hysterectomy with removal of cervix was submitted, please contact the testing laboratory for alternative testing options. For additional information, please refer to http://education.Decalog/faq/QKT426u0 (This link if provided for information/ educational purposes only.) THIS TEST WAS PERFORMED AT: [facility] [address] [place] [address],[address] [place], [place] ??[phone] ESPERANZA CRUZ MD 01/15/2022 10:1 9 AM EDT Mario Alberto Morgan MD HISTORICAL/NON ORDERABLE LABS Fi nal Result Performing Organization Address [facility]/ZIP Co de Phone Number [facility] [...] a test for HCV RNA (test code 23171) is suggested. ?? For additional information please refer to http://[employer].Decalog/faq/FQA58a4 (This link is being provided for informational/ educational purposes only.) ?? 11/12/2021 12:0 9 PM EDT us Zev Sanders MD HISTORICAL/NON ORDERABLE SOHA CERON Final Result [facility] [address] * (ABNORMAL) LIPID PANEL, STANDARD (11/12/2021 [...] ?? Hilario MOON et al. JUANA. 2013;310(19): 7847-3931 ?? (http://education.[employer].Clicks for a Cause/faq/UYE995) Non-HDL Cholesterol 129 <130 mg/dL (calc) [facility] Comment: For patients with diabetes plus 1 major ASCVD risk ?? factor, treating to a non-HDL-C goal of <100 mg/dL ?? (LDL-C of <70 mg/dL) is considered a therapeutic ?? option. Triglycerides 120 <150 mg/dL [facility] 11/12/2021 12:0 9 PM EDT us Zev Sanders MD LAB BLOOD ORDERABLES Final Result [facility] [address] * Mammography Report 1 (10/17/2021 2:30 [...] Most Recently Relevant to Health Maintenance Insurance [facility] Care Teams Tire Adjuster Relationship Specialty Start Date End Date Zev Sanders MD [address] [place] [phone] PCP - General Internal Medicine 11/16/19
--- OUTSIDE RECORDS SUMMARY | 2024-05-03 14:15 | XMS_ITS | Encounter Summary ---
Author Organization [employer] Address [address] [facility] 7 [place] [address] Care Team Providers Care Psychologist Military Personnel Name Role Phone Zev Sanders MD Primary Care Provider [phone] Reason for Visit * Reason Onset Date Comments Appointment Request 11/01/2022 Encounter Details Date Type Department Care Team ([facility] st Contact Info) Description 11/01/[address] [facility] [address] [place], [place] [phone] Zev Sanders MD [address] [place] [address] Appointment Request Social History Tobacco Use Types [...] PE on 10/24/2022. Please contact pt at [phone] documented in this encounter Plan of Treatment Upcoming Encounters Date Type Department Care Team (Late st Contact Info) Description 05/10/2024 1:15 PM EST Office Visit [facility] [address] [place] [address] Zev Sanders MD [address] [place] [address] 07/01/2024 11:00 AM EDT Nurse Only [facility] [address] [place] [address] documented as of this encounter Visit Diagnoses Not on filedocumented in this encounter Care Teams Psychologist Military Personnel Relationship Specialty Start Date End Date Zev Sanders MD [address] [place] [phone] PCP - General Internal Medicine 11/16/19 documented as of this encounter
--- OUTSIDE RECORDS SUMMARY | 2024-05-03 14:15 | XMS_ITS | Encounter Summary ---
Author Organization [employer] [facility] Address [address] [place] [address] 7 [place] [address] Care Team Providers Care Garage Hand Name Role Phone Zev Sanders MD Primary Care Provider [phone] Reason for Visit * Reason Comments Med Refill Encounter Details Date Type Department Care Team ([facility] Contact Info) Description 11/05/2022 Refill [facility] P[facility] [address] [place] [address] Zev Sanders MD [address] [place] [address] Chronic low back pain, unspecified back pain [...] Upcoming Encounters Date Type Department Care Team ([facility] Contact Info) Description 05/10/2024 1:15 PM EST Office Visit [facility] P[facility] [address] [place] [address] Zev Sanders MD [address] [place], [place] [phone] 07/01/2024 11:00 AM EDT Nurse Only [facility] [address] [place] [address] documented as of this encounter Visit Diagnoses Diagnosis Chronic low back pain, unspecified back pain laterality, unspecified whether sciatica present documented in this encounter Care Teams Garage Hand Relationship Specialty Start Date End Date Zev Sanders MD [address] [place] [address] PCP - General Internal Medicine 11/16/19 documented as of this encounter
--- OUTSIDE RECORDS SUMMARY | 2024-05-03 14:15 | XMS_ITS | Encounter Summary ---
Author Organization [employer] Address [address] [facility] 7t [place] [address] Care Team Providers Care Dipper And Baker Name Role Phone Zev Sanders MD Primary Care Provider [phone] Encounter Details Date Type Department Care Team ([facility] Contact Info) Description 04/21/2024 Orders Only GENERIC [...] Upcoming Encounters Date Type Department Care Team ([facility] st Contact Info) Description 05/10/2024 1:15 PM EST Office Visit [facility] [address] [place] [address] Zev Sanders MD [address] [place] [address] 07/01/2024 11:00 AM EDT Nurse Only [facility] [address] [place] [address] documented as of this encounter Procedures Procedure Name Priority Date/Time Associated Diagnosis Comments [facility] LOWER EXTREMITY VENOUS DUPLEX BILATERAL Routine 04/21/2024 3:56 PM EST CBC WITH AUTO DIFFERENTIAL Routine 04/21/2024 3:22 PM EST PROTHROMBIN TIME-INR Routine 04/21/2024 3:22 PM EST COMPREHENSIVE METABOLIC PANEL Routine 04/21/2024 3:22 PM EST documented in this encounter Results * [facility] Lower Extremity Venous Duplex Bilateral (04/21/2024 3:56 PM EST) 04/21/2024 3:56 PM EST Narrative [facility] - 04/21/2024 4:23 PM EST ? [facility] ?[address] ?[place] [address] ? Ultrasound Report ? Signed ? Patient: Delvalle Izquierdo,Deysi D ?MR#: ?? [id number] ? : 1970 ?Acct:[id number] ? Age/Sex: 53 / F ?ADM Date: 01/22/25 ? Loc: HO.ED ? Attending Dr: ? Ordering Physician: Shila Mueller NP ?? Date of Service: 04/21/24 ?? Procedure(s): US venous duplex LE BI ?? Accession Number(s): [id number] ? cc: Zev Sanders MD; Shila Mueller [...] DD/ 1556 ? TD/TT: 04/21/24 1612 ? Director Airport Operations: ? Procedure Note Travis Griffin - 04/21/[address] [address] Ultrasound Report Signed Patient: Deysi Pfeiffer [facility]#: [id number] : 1970Acct:[id number] Age/Sex: 53 / FADM Date: 04/21/24 Loc: HO.ED Attending Dr: Ordering Physician: Shila Mueller NP Date of Service: 04/21/24 Procedure(s): US venous duplex LE BI Accession Number(s): [id number] cc: Zev Sanders MD; Shila Mueller NP [...] Jim Smith MD 04/21/2024 04:20 PM EST RP Dictated By: Jim Smith MD Signed By: <Electronically signed by Jim Smith MD in OV> 04/21/24 1620 DD/ 1556 TD/TT: 04/21/24 1612 Director Airport Operations: [facility] External Provider CV VASC ULAR PROCEDURES Final Result [facility] [address] [place] [address] [phone] * Prothrombin Time-INR (04/21/2024 3:22 PM EST) Prothrombin Time 10.9 10.9 - 12.4 SEC [facility] INTERNATIONAL NORM RATIO 0.9 0.9 - 1.1 [facility] Comment:INTERNATIONAL NORMAL IZED RATIO (INR) REFERENCE [...] Provider LAB BLOOD ORDERAB LES Final Result [facility] [address] [place] [address] [phone] * (ABNORMAL) Comprehensive Metabolic Panel (04/21/2024 3:22 PM EST) Sodium 143 135 - 145 mmol/L [facility] Potassium 4.9 3.3 - 5.1 mmol/L [facility] Chloride 103 96 - 108 mmol/L [facility] Carbon Dioxide 33(H) 22 - 29 mmol/L [facility] Anion Gap 12 12 - 20 [facility] Urea Nitrogen (BUN) 11 9 - 16 mg/dL [facility] Creatinine, Serum 0.59 0.5 - 1.4 mg/dL [facility] Creatinine Clr Calc Pharmacy 95.2 [facility] Comment:Provided height and weight: 162.56 cm,56.9 kg.eGFR (calculated from the MDRD study equation) and eCrCl(calculated from the Cockcroft-Gault equation) are based ondifferent parameters and may not yield comparable results.If eCrCl result is absurd, please check patient'sheight/weight. Estimated Glomerular Filt Rate >60 [facility] Comment:Chronic Kidney Disea se: Estimated GFR < 60 mL/min/1.05y3Lfscrn Kidney Disease: Estimated GFR < 15 mL/min/1.73m2 Glucose 116(H) 60 - 115 mg/dL [facility] Calcium 9.1 8.4 - 10.2 mg/dL [facility] Bilirubin, Total 0.3 0.0 - 1.0 mg/dL [facility] Aspartate Amino Transferase 17 5 - 31 U/L [facility] Alanine Aminotransferase 14 0 - 31 U/L [facility] Total Protein 6.6 6.5 - 8.0 g/dL [facility] Albumin Level 3.9 3.5 - 5.0 g/dL [facility] Alkaline Phosphatase 66 39 - 117 U/L [facility] 04/21/2024 3:22 PM EST 04/21/2024 3:24 PM EST us Generic External Data Provider LAB BLOOD ORDERAB LES Final Result [facility] [address] [place] [address] [phone] * (ABNORMAL) CBC auto differential (04/21/2024 3:22 PM EST) White Blood Count 11.6(H) 4.8 - 10.8 X10*3/uL [facility] Red Blood Count 4.26 4.20 - 5.50 X10*6/uL [facility] Hemoglobin 12.4 12.0 - 16.0 g/dl [facility] Hematocrit 39.4 37.0 - 47.0 % [facility] Mean Corpuscular Volume 92.5 80.0 - 98.0 fL [facility] Mean Corpuscular Hemoglobin 29.1 27.0 - 33.0 pg [facility] Mean Corpuscular HGB Conc 31.5 31.0 - 35.0 g/dl [facility] Red Cell Distribution Width 14.6 11.0 - 16.0 % [facility] Platelet Count 241 160 - 400 X10*3/uL [facility] Mean Platelet Volume 9.2(L) 9.4 - 12.3 fL [facility] Neutrophils Percent Auto 84.3(H) 45 - 73 % [facility] Imm Gran Pct Auto 0.6(H) 0.0 - 0.4 % [facility] Lymphocytes Percent Auto 10.4(L) 20 - 40 % [facility] Monocytes Percent Auto 3.6 2 - 11 % [facility] Eosinophils Percent Auto 0.4 0 - 4 % [facility] Basophils Percent Auto 0.7 0 - 2 % [facility] NRBC Pct Auto 0.0 0.0 - 0.2 /100WBC [facility] Neutrophils Absolute Auto 9.8(H) 2.0 - 8.3 x10*3/uL [facility] Imm Gran Abs Auto 0.07(H) 0.00 - 0.03 X10*3/uL [facility] Lymphocytes Absolute Auto 1.2 1.2 - 4.9 X10*3/uL [facility] Monocytes Absolute Auto 0.4 0.1 - 1.2 X10*3/uL [facility] Eosinophils Absolute Auto 0.1 0.0 - 0.4 X10*3/uL [facility] Basophils Absolute Auto 0.1 0.0 - 0.2 X10*3/uL [facility] NRBC Abs Auto 0.000 0.0 - 0.012 X10*3/uL [facility] 04/21/2024 3:2 2 PM EST 04/21/2024 3:24 PM EST us Generic External Data Provider LAB BLOOD ORDERAB LES Final Result [facility] [address] [place] [address] [phone] documented in this encounter Visit Diagnoses Not on filedocumented in this encounter Additional Health Concerns Assessment Noted Time PHQ-9 Depression Total Score: 7 10/14/19 24 11:59 AM EDT documented as of this encounter Care Teams Dipper And Baker Relationship Specialty Start Date End Date Zev Sanders MD [address] [place] [id number] PCP - General Internal Medicine 11/16/19 documented as of this encounter
--- OUTSIDE RECORDS SUMMARY | 2024-05-03 14:15 | XMS_ITS | Encounter Summary ---
Author Organization [employer] Address [address] [facility] 7 [place] [address] Care Team Providers Care Sap Developer Name Role Phone Zev Sanders MD Primary Care Provider [phone] Reason for Visit * Reason Comments Transition Of Care (Tcm) HDF #2 attempt _ unable to lvm Encounter Details Date Type Department Care Team ([facility] st Contact Info) Description 04/14/2024 Patient Outreach [facility] [address] [place], [place] [phone] Zev Sanders MD [address] [place] [address] Transition Of Care (Tcm) (HDF #2 attempt [...] Admission/Visit 04/06/24 Date of Discharge 04/08/24 Facility [facility] Diagnosis Pnuemonia , RSV Disposition Discharged Home [...] Upcoming Encounters Date Type Department Care Team ([facility] st Contact Info) Description 05/10/2024 1:15 PM EST Office Visit [facility] [address] [place] [address] Zev Sanders MD [address] [place] [address] 07/01/2024 11:00 AM EDT Nurse Only [facility] [address] [place] [address] documented as of this encounter Visit Diagnoses Not on filedocumented in this encounter Additional Health Concerns Assessment Noted Time PHQ-9 Depression Total Score: 7 10/14/19 24 11:59 AM EDT documented as of this encounter Care Teams Sap Developer Relationship Specialty Start Date End Date Zev Sanders MD [address] [place] [address] PCP - General Internal Medicine 11/16/19 documented as of this encounter
--- OUTSIDE RECORDS SUMMARY | 2024-05-03 14:15 | XMS_ITS | Encounter Summary ---
Author Organization [employer] Address [address] [facility] 7t [place] [address] Care Team Providers Care Rn Women Services Name Role Phone Zev Sanders MD Primary Care Provider [phone] Encounter Details Date Type Department Care Team ([facility] st Contact Info) Description 07/21/2023 Orders Only [facility]EDS [address] [place], [place] [phone] Zev Sanders MD [address] [place], [place] [phone] Social History Tobacco Use Types Packs/Day Years [...] Description 05/10/2024 1:15 PM EST Office Visit [facility] [address] [place] [address] Zev Sanders MD [address] [place] [address] 07/01/2024 11:00 AM EDT Nurse Only [facility] [address] [place] [address] documented as of this encounter Visit Diagnoses Not on filedocumented in this encounter Care Teams Rn Women Services Relationship Specialty Start Date End Date Zev Sanders MD [address] [place] [address] PCP - General Internal Medicine 11/16/19 documented as of this encounter
--- OUTSIDE RECORDS SUMMARY | 2024-05-03 14:15 | XMS_ITS | Encounter Summary ---
Author Organization [employer] Address [address] [facility] 7 [place] [address] Care Team Providers Care Steamtable Attendant Railroad Name Role Phone Zev Sanders MD Primary Care Provider [phone] Reason for Visit * Reason Comments Pre-visit Planning SDOH will need to be completed in office. Encounter Details Date Type Department Care Team ([facility] Contact Info) Description 04/21/2024 Patient Outreach [facility] PEDS [address] [place], [place] [phone] Zev Sanders MD [address] [place], [place] [phone] Pre-visit Planning (SDOH will need to be [...] Upcoming Encounters Date Type Department Care Team ([facility] st Contact Info) Description 05/10/2024 1:15 PM EST Office Visit [facility] [address] [place] [address] Zev Sanders MD [address] [place] [address] 07/01/2024 11:00 AM EDT Nurse Only [facility] [address] [place] [address] documented as of this encounter Visit Diagnoses Not on filedocumented in this encounter Additional Health Concerns Assessment Noted Time PHQ-9 Depression Total Score: 7 10/14/19 24 11:59 AM EDT documented as of this encounter Care Teams Steamtable Attendant Railroad Relationship Specialty Start Date End Date Zev Sanders MD [address] [place] [address] PCP - General Internal Medicine 11/16/19 documented as of this encounter
--- OUTSIDE RECORDS SUMMARY | 2024-05-03 14:15 | XMS_ITS | Encounter Summary ---
Author Organization [employer] Address [address] [place] [address] 7t [place] [address] Care Team Providers Care Instrument Technician Apprentice Name Role Phone Zev Sanders MD Primary Care Provider [phone] Encounter Details Date Type Department Care Team ([facility] Contact Info) Description 10/22/2022 Orders Only [facility] [address] [place], [place] [phone] Zev Sanders MD [address] [place] [address] Gastroenteritis (Primary Dx) Social History Tobacco Use [...] Upcoming Encounters Date Type Department Care Team ([facility] Contact Info) Description 05/10/2024 1:15 PM EST Office Visit [facility] [address] [place] [address] Zev Sanders MD [address] [place] [address] 07/01/2024 11:00 AM EDT Nurse Only [facility] [address] [place] [address] documented as of this encounter Visit Diagnoses Diagnosis Gastroenteritis- Primary Other and unspecified noninfectious gastroenteritis and colitis documented in this encounter Care Teams Instrument Technician Apprentice Relationship Specialty Start Date End Date Zev Sanders MD [address] [place] [address] PCP - General Internal Medicine 11/16/19 documented as of this encounter
--- OUTSIDE RECORDS SUMMARY | 2024-05-03 14:15 | XMS_ITS | Encounter Summary ---
Author Organization [employer] Address [address] [facility] 7t [place] [address] Care Team Providers Care Ground Worker Name Role Phone Zev Sanders MD Primary Care Provider [phone] Reason for Visit * Reason Onset Date Comments Med Refill 07/21/2023 Encounter Details Date Type Department Care Team ([facility] st Contact Info) Description 07/21/2023 Telephone [facility] [address] [place] [address] Zev Sanders MD [address] [place] [address] Med Refill Social History Tobacco Use Types [...] 150 MG capsule To be sent to: [facility] - [place], [place] - [address] [place] [address] documented in this encounter Plan of Treatment Upcoming Encounters Date Type Department Care Team ([facility] st Contact Info) Description 05/10/2024 1:15 PM EST Office Visit [facility] [address] [place] [address] Zev Sanders MD [address] [place] [address] 07/01/2024 11:00 AM EDT Nurse Only [facility] [address] [place] [address] documented as of this encounter Visit Diagnoses Not on filedocumented in this encounter Care Teams Ground Worker Relationship Specialty Start Date End Date Zev Sanders MD [address] [place] [address] PCP - General Internal Medicine 11/16/19 documented as of this encounter
--- OUTSIDE RECORDS SUMMARY | 2024-05-03 14:15 | XMS_ITS | Encounter Summary ---
Author Organization [employer] Address [address] [facility] 7 [place] [address] Care Team Providers Care Crm Solution Architect Name Role Phone Zev Sanders MD Primary Care Provider [phone] Reason for Visit * Reason Onset Date Comments Results 04/22/2024 Encounter Details Date Type Department Care Team ([facility] Contact Info) Description 04/22/2024 Telephone [facility] MED [facility] PEDS [address] [place], [place] [phone] Zev Sanders MD [address] [place] [address] Results Social History Tobacco Use Types Packs/Day [...] Pt stated she completed lab work at [facility] on 04/21/26 and was informed results were faxed to PCP. Pt requesting a call back with lab results. documented in this encounter Plan of Treatment Upcoming Encounters Date Type Department Care Team ([facility] st Contact Info) Description 05/10/2024 1:15 PM EST Office Visit [facility] [address] [place] [address] Zev Sanders MD [address] [place] [address] 07/01/2024 11:00 AM EDT Nurse Only [facility] [address] [place] [address] documented as of this encounter Visit Diagnoses Not on filedocumented in this encounter Additional Health Concerns Assessment Noted Time PHQ-9 Depression Total Score: 7 10/14/19 24 11:59 AM EDT documented as of this encounter Care Teams Crm Solution Architect Relationship Specialty Start Date End Date Zev Sanders MD [address] [place] [address] PCP - General Internal Medicine 11/16/19 documented as of this encounter
--- OUTSIDE RECORDS SUMMARY | 2024-05-03 14:15 | XMS_ITS | Encounter Summary ---
Author Organization [email or web address] Address [address] [place] [address] 7 [place] [address] Care Team Providers Care Area Coordinator Name Role Phone Zev Sanders MD Primary Care Provider [phone] Encounter Details Date Type Department Care Team ([facility] Contact Info) Description 04/12/2022 Orders Only [facility] [address] [place], [place] [phone] Zev Sanders MD [address] [place], [place] [phone] Social History Tobacco Use Types Packs/Day Years [...] Upcoming Encounters Date Type Department Care Team ([facility] Contact Info) Description 05/10/2024 1:15 PM EST Office Visit [facility] PEDS [address] [place], [place] [phone] Zev Sanders MD [address] [place] [address] 07/01/2024 11:00 AM EDT Nurse Only [facility] PEDS [address] [place] [address] documented as of this encounter Procedures Procedure [...] (10/21/2022 2:13 PM EDT) Slide Review VERIFIED [facility] 10/21/2022 2:13 PM EDT 10/21/2022 5:23 PM EDT us Zev Sanders MD LAB BLOOD ORDERABLES Final Result [facility] [address] [place] [address] [phone] * (ABNORMAL) VENOUS BLOOD GAS (09/04/2022 1:17 PM EDT) VBG pH 7.37 7.32 - 7.43 [facility] Comment:METER #: [id number] additional_comment: Cb murpe VBG PCO2 57 mmHg [facility] Comment:METER #: [id number] additional_comment: Cb murpe VBG PO2 48 mmHg [facility] Comment:METER #: [id number] additional_comment: Cb murpe VBG Base Excess 6.2 mmol/L [facility] Comment:METER #: [id number] additional_comment: Cb murpe VBG HCO3 33(H) 22 - 26 mmol/L [facility] Comment:METER #: [id number] additional_comment: Cb murpe O2 Sat, Lefty 77.0 % [facility] Comment:METER #: [id number] additional_comment: Cb murpe 09/04/2022 1:17 PM EDT 09/04/2022 1:23 PM EDT [facility] External Provider LAB BLO OD ORDERABLES Final Result Performing Organization Address [facility] de Phone Number [facility] [address] [place] [phone] * D Dimer High Sensitivity (09/04/2022 1:10 PM EDT) D Dimer High Sensitivity <150 NG/ML [facility] Comment:D-DIMER HS REFERENCE RANGENote: Our assay reports D-Dimer Units (D- DU).The cut-off value for venous thromboembolic (VTE) disease is230 ng/mL. This value has a very high negative predictivevalue when the patient has a low to moderate clinicalprobability of VTE.The upper limit of normal is 243 ng/mL. 09/04/2022 1:10 PM EDT 09/04/2022 1:18 PM EDT [facility] External Provider LAB BLO OD ORDERABLES Final Result Performing Organization Address [facility] Co de Phone Number [facility] [address] [place] [phone] * B Type Natriuretic Peptide (BNP) (09/04/2022 11:26 AM EDT) B Type Natriuretic Peptide 19 <100 pg/mL [facility] Comment:For those patients w ho are being treated with Natrecor(nesiritide, recombinant BNP), BNP testing should beperformed at least two hours post treatment in order toensure that only endogenous levels of BNP are detected. 09/04/2022 11:2 6 AM EDT 09/04/2022 1:27 PM EDT us [facility] External Provider LAB BLO OD ORDERABLES Final Result [facility] [address] [place] [phone] * (ABNORMAL) Comprehensive Metabolic Panel (09/04/2022 11:26 AM EDT) Sodium 142 135 - 145 mmol/L [facility] Potassium 4.2 3.3 - 5.1 mmol/L [facility] Chloride 102 96 - 108 mmol/L [facility] Carbon Dioxide 34(H) 22 - 29 mmol/L [facility] Anion Gap 10(L) 12 - 20 [facility] Urea Nitrogen (BUN) 15 9 - 16 mg/dL [facility] Creatinine, Serum 0.68 0.5 - 1.4 mg/dL [facility] Creatinine Clr Calc Pharmacy 74.8 [facility] Comment:Provided height and weight: 162.56 cm,49 kg.eGFR (calculated from the MDRD study equation) and eCrCl(calculated from the Cockcroft-Gault equation) are based ondifferent parameters and may not yield comparable results.If eCrCl result is absurd, please check patient'sheight/weight. Estimated Glomerular Filt Rate >60 [facility] Comment:NOTE: For -Am erican individuals, multiply the result by 1.210.Chronic Kidney Disease: Estimated GFR < 60 mL/min/1.66q7Xmlqdn Kidney Disease: Estimated GFR < 15 mL/min/1.73m2 Glucose 112 60 - 115 mg/dL [facility] Calcium 9.4 8.4 - 10.2 mg/dL [facility] Bilirubin, Total 0.7 0.0 - 1.0 mg/dL [facility] Aspartate Amino Transferase 21 5 - 31 U/L [facility] Alanine Aminotransferase 17 0 - 31 U/L [facility] Total Protein 6.7 6.5 - 8.0 g/dL [facility] Albumin Level 4.1 3.5 - 5.0 g/dL [facility] Alkaline Phosphatase 73 39 - 117 U/L [facility] 09/04/2022 11:2 6 AM EDT 09/04/2022 11:33 AM EDT [facility] External Provider LAB BLO OD ORDERABLES Final Result [facility] [address] [place] [phone] [phone] * COVID-19 ID NOW (ChemiSense) (09/04/2022 11:26 AM EDT) IDNOW SERIAL# [id number] [facility] COVID-19 TEST Negative Negative [facility] COVID-19 NOTE See Note [facility] Comment: Results are for the identification of SARS-CoV2 RNA. TheSARS-CoV2 RNA is generally detectable in respiratory samplesduring the acute phase of infection. Positive results areindicative of the presence of SARS-CoV-2 RNA; clinicalcorrelation with patient history and other diagnosticinformation is necessary to determine patient infectionstatus. Positive results do not rule out bacterial infectionor co- infection with other viruses.Testing facilities within the [facility] and itsterritories are required to report [...] use by authorized laboratories.Testing performed on the [employer] ID NOW utilizing NAAT. 09/04/2022 11:2 6 AM EDT 09/04/2022 11:33 AM EDT us [facility] Exter nal Provider LAB MOLECULAR DIAGNOSTICS ORDERABLES Final Result [facility] [address] [place] [phone] * (ABNORMAL) CBC auto differential (09/04/2022 11:26 AM EDT) White Blood Count 10.4 4.8 - 10.8 X10*3/uL [facility] Red Blood Count 5.42 4.20 - 5.50 X10*6/uL [facility] Hemoglobin 16.0 12.0 - 16.0 g/dl [facility] Hematocrit 49.3(H) 37.0 - 47.0 % [facility] Mean Corpuscular Volume 91.0 80.0 - 98.0 fL [facility] Mean Corpuscular Hemoglobin 29.5 27.0 - 33.0 pg [facility] Mean Corpuscular HGB Conc 32.5 31.0 - 35.0 g/dl [facility] Red Cell Distribution Width 14.6 11.0 - 16.0 % [facility] Platelet Count 238 160 - 400 X10*3/uL [facility] Mean Platelet Volume 9.5 9.4 - 12.3 fL [facility] Neutrophils Percent Auto 51.2 45 - 73 % [facility] Imm Gran Pct Auto 0.3 0.0 - 0.4 % [facility] Lymphocytes Percent Auto 38.4 20 - 40 % [facility] Monocytes Percent Auto 8.1 2 - 11 % [facility] Eosinophils Percent Auto 1.5 0 - 4 % [facility] Basophils Percent Auto 0.5 0 - 2 % [facility] NRBC Pct Auto 0.0 0.0 - 0.2 /100WBC [facility] Neutrophils Absolute Auto 5.4 2.0 - 8.3 x10*3/uL [facility] Imm Gran Abs Auto 0.03 0.00 - 0.03 X10*3/uL [facility] Lymphocytes Absolute Auto 4.0 1.2 - 4.9 X10*3/uL [facility] Monocytes Absolute Auto 0.8 0.1 - 1.2 X10*3/uL [facility] Eosinophils Absolute Auto 0.2 0.0 - 0.4 X10*3/uL [facility] Basophils Absolute Auto 0.1 0.0 - 0.2 X10*3/uL [facility] NRBC Abs Auto 0.000 0.0 - 0.012 X10*3/uL [facility] 09/04/2022 11:2 6 AM EDT 09/04/2022 11:33 AM EDT [facility] External Provider LAB BLO OD ORDERABLES Final Result [facility] [address] [place] [phone] documented in this encounter Visit Diagnoses Not on filedocumented in this encounter Care Teams Area Coordinator Relationship Specialty Start Date End Date Zev Sanders MD [address] [place] [phone] PCP - General Internal Medicine 11/16/19 documented as of this encounter
--- OUTSIDE RECORDS SUMMARY | 2024-05-03 14:15 | XMS_ITS | Encounter Summary ---
Author Organization [employer] Address [address] [facility] 7 [place] [address] Care Team Providers Care Platform Engineer Name Role Phone Zev Sanders MD Primary Care Provider [phone] Reason for Visit * Reason Comments Transition Of Care (Tcm) HDF scheduled. Encounter Details Date Type Department Care Team ([facility] Contact Info) Description 04/21/2024 Patient Outreach [facility] CH[facility] MED & PEDS [address] [place], [place] [phone] Zev Sanders MD [address] [place] [address] Transition Of Care (Tcm) (HDF scheduled. ) [...] Admission/Visit 04/04/24 Date of Discharge 04/06/24 Facility [facility] Diagnosis Dyspnea Disposition Discharged Home Follow-Up [...] Wednesdays, and Walk-In Urgent Care Located in [facility]. Patient provided with after-hours line for [facility], , which offer night time triage service and option to transfer to civil transportation engineer provider if needed. CC scanned discharge summary into patient's chart. Biggest concern forappointment at this time is no concerns. Appropriate screenings completed in anticipation of appointment. documented in this encounter Plan of Treatment Upcoming Encounters Date Type Department Care Team (Late st Contact Info) Description 05/10/2024 1:15 PM EST Office Visit [facility] MED & PEDS [address] [place] [address] Zev Sanders MD [address] [place] [address] 07/01/2024 11:00 AM EDT Nurse Only [facility] MED & PEDS [address] [place] [address] documented as of this encounter Visit Diagnoses Not on filedocumented in this encounter Additional Health Concerns Assessment Noted Time PHQ-9 Depression Total Score: 7 10/14/19 24 11:59 AM EDT documented as of this encounter Care Teams Platform Engineer Relationship Specialty Start Date End Date Zev Sanders MD [address] [place] [address] PCP - General Internal Medicine 11/16/19 documented as of this encounter
--- OUTSIDE RECORDS SUMMARY | 2024-05-03 14:15 | XMS_ITS | Encounter Summary ---
Author Organization [employer] Address [address] [facility] 7 [place] [address] Care Team Providers Care Hair Baler Name Role Phone Zev Sanders MD Primary Care Provider [phone] Reason for Visit * Reason Onset Date Comments Nurse Triage 04/20/2024 Encounter Details Date Type Department Care Team ([facility] st Contact Info) Description 04/20/2024 Telephone [facility] CHC MED & PEDS [address] [place], [place] [phone] Zev Sanders MD [address] [place] [address] Nurse Triage Social History Tobacco Use Types [...] immediate evaluation. Pt declines to come to [facility] and agrees to go to ED. [...] Description 05/10/2024 1:15 PM EST Office Visit [facility] CHC MED & PEDS [address] [place] [address] Zev Sanders MD [address] [place] [address] 07/01/2024 11:00 AM EDT Nurse Only [facility] CHC MED & PEDS [address] [place] [address] documented as of this encounter Visit Diagnoses Not on filedocumented in this encounter Additional Health Concerns Assessment Noted Time PHQ-9 Depression Total Score: 7 10/14/19 24 11:59 AM EDT documented as of this encounter Care Teams Hair Baler Relationship Specialty Start Date End Date Zev Sanders MD [address] [place] [address] PCP - General Internal Medicine 11/16/19 documented as of this encounter
== END 2024-05-03 12:56 | disposition home or self-care (01) ==
LOC: HO.US 12:55
PROVIDERS: PCP Internal Medicine; Visit Provider Physician Assistant Surgical
DX: I83.11 Varicose veins of right lower extremity with inflammation (principal); I83.12 Varicose veins of left lower extremity with inflammation
CPT/HCPCS: 93970

== ENCOUNTER → 2024-05-03 12:57 | Outpatient (BNV) | payer MEDICAID, SELFPAY | PROVIDERS: PCP Internal Medicine; Visit Provider Radiology Diagnostic Radiology | DX: I83.10 Varicose veins of unspecified lower extremity with inflammation (principal) | CPT/HCPCS: 93970 ==

== ENCOUNTER 2024-05-11 13:59 | Outpatient (AMB) | payer MEDICAID, SELFPAY ==
[2024-05-11 14:00] VITALS: BMI 21.5
--- NOTE | 2024-05-11 14:00 | MHC.OFFVIS ---
Vital Signs 05/11/24 14:00 Height 5 ft 4 in Weight 125 lb BMI 21.5 Intake Visit Reasons: follow up s/p US 05/03/24 Intake Note: follow up US 05/03/24 for bilateral LE pain. Pt states she has some VV w/ swelling and some discoloration on the left calf. Pt also states some pins and needles sensation in the left heel. Oncology Nurse Navigator Required: No Accompanied by: Spouse Allergies Penicillins [PENICILLINS] Allergy (Severe, Verified 05/11/24 14:03) RASH seafood Allergy (Verified 05/11/24 14:03) Rash HPI HPI follow up s/p US 05/03/24: Details: Deysi is presenting today to a follow up to ultrasound, performed on 05/03/2024. She does continue with pain, particularly in her ankle and foot areas. She continues with numbness and tingling as well. She is followed by pain management. Since our last visit, she has had multiple ER visits and an admission for ongoing COPD concerns. She does present on oxygen today. She has no new concerns today. [facility] Medical History Current non-smoker but past smoking history unknown Respiratory failure with hypoxia COPD exacerbation Pre-op examination History of OCD (obsessive compulsive disorder) History of panic attacks Anxiety and depression Radiculopathy, lumbar region HTN (hypertension) Sacroiliitis COPD (chronic obstructive pulmonary disease) Asthma Allergic rhinitis Disc degeneration, lumbar Surgical History History of surgery History of appendectomy Hx of tonsillectomy Status post excision of lipoma History of tubal ligation Hx of excision of mass History of surgery History of laparoscopic cholecystectomy History of esophagogastroduodenoscopy (EGD) History of umbilical hernia repair History of incision and drainage Family History Family/Other Cervical cancer Family/Other Stomach cancer Social History Household Members: Significant Other and Family Household Members Other:: grandson Housing: House Do you presently have visiting nurse or other home services: No Alcohol intake: never Comment: Significant other bedside Patient Tobacco Use Status: Former Tobacco user Tobacco use type: Cigarette Substance Use Type: Marijuana Advance Directives Date on File: 04/06/24 service: No Current occupational status: unemployed Sexual orientation: Straight/Heterosexual Gender identity: Female Review of Systems Const Reports as per HPI and Denies weakness ENT Reports Normal hearing present and Denies dizziness Card Reports as per HPI, Denies chest pain, Denies chest pain at rest, Denies chest pain with activity, Denies dyspnea and Denies dyspnea on exertion Resp Reports as per HPI, Denies cough, Denies dyspnea and Denies dyspnea on exertion GI Reports as per HPI, Denies abdominal pain, Denies nausea and Denies vomiting Musc Denies numbness Skin/Breast Reports as per HPI, Denies erythema and Denies wounds Neuro Reports Normal hearing present, Denies dizziness, Denies numbness, Denies Sensory deficit (Neuro) and Denies weakness Psych Reports no additional complaints Endo Reports no additional complaints Physical Exam Vital Signs: BMI result Body Mass Index 21.5 Const General: healthy appearing and no acute distress Orientation/consciousness: patient oriented x3 HEENT Head: Yes normal to inspection Ears: hearing grossly normal bilaterally Mouth: Normal oral and palatal mucosa present Resp Effort & Inspection: normal respiratory effort and able to speak in complete sentences Auscultation: clear to auscultation bilaterally Cardio Jugular venous distension: no JVD Rate: regular rate Rhythm: regular rhythm Heart sounds: S1 normal heart sound present and S2 normal heart sound present Bruits: no abdominal aortic bruits, no carotid bruits, no femoral bruits and no renal bruits Peripheral pulses: Peripheral pulses 2+ throughout GI Inspection: Yes normal to inspection Palpation (GI): No Abdominal aortic bruit present Skin General skin exam: no rashes or lesions noted Wounds: no wounds Hair: normal Neuro General: patient oriented x3 Cranial nerves: Yes Normal hearing present Cognition (Neuro): normal cognition Gait exam (Neuro): Normal gait present Motor exam (neuro): 5/5 motor strength present throughout Sensory Exam: No Sensory deficit (Neuro) Extrem Other: Bilateral lower extremities: No tortuosities noted. Slight discoloration noted bilaterally around the ankles. No edema noted. General: Yes normal to inspection, Yes full ROM, Yes capillary refill normal and Yes normal gait Results Reviewed Results Reviewed: Brief summary of venous insufficiency testing is as follows: right great saphenous vein: negative right small saphenous vein: negative right accessory vein: none present left great saphenous vein: negative left small saphenous vein: negative left accessory vein: none present Please note there is no evidence of any venous aneurysms or significant tortuosity Assessment & Plan Assessment & Plan (1) Varicose veins of both lower extremities with inflammation: Code(s): I83.11 - Varicose veins of right lower extremity with inflammation; I83.12 - Varicose veins of left lower extremity with inflammation Category: Medical Plan: Deysi is presenting today as a follow up to ultrasound, performed on 05/03/2024. There was no venous insufficiency found on ultrasound. She does continue with tingling numbness sensations in feet and ankle areas, left more than right. We discussed her to continue with pain management. We also discussed that she should reach out to her primary care for further assessment and treatment options. We discussed the importance of elevation, compression stockings, and physical activity. We discussed the importance of the well-balanced diet. We discussed that if she does have any other vascular concerns the future, she can reach back out to our office. Thank you for allowing us to participate in the patient's care. There are any questions or concerns, please do not hesitate to reach out to us. Coding Level of Care Code Est Pt Level 4 (64133) Diagnoses Varicose veins of both lower extremities with inflammation I83.11; I83.12 Comment Review of venous insufficiency ultrasound
--- OUTSIDE RECORDS SUMMARY | 2024-05-11 15:00 | XMS_ITS | Encounter Summary ---
Author Organization [employer] Address [address] [facility] 7[address] [place] [address] Care Team Providers Care Facs Teacher Name Role Phone Zev Sanders MD Primary Care Provider [phone] Reason for Visit * Reason Onset Date Comments Med Refill 07/21/2023 Encounter Details Date Type Department Care Team ([facility] st Contact Info) Description 07/21/2023 Telephone [facility] MEDICINE [address] [place] [address] Zev Sanders MD [address] [place] [address] Med Refill Social History Tobacco Use Types [...] 150 MG capsule To be sent to: [facility] [place], [place] - [address] [place] [address] documented in this encounter Plan of Treatment Upcoming Encounters Date Type Department Care Team (Late st Contact Info) Description 07/01/2024 11:00 AM EDT Nurse Only [facility] MED & PEDS [address] [place] [address] documented as of this encounter Visit Diagnoses Not on filedocumented in this encounter Care Teams Facs Teacher Relationship Specialty Start Date End Date Zev Sanders MD [address] [place] [address] PCP - General Internal Medicine 11/16/19 documented as of this encounter
--- OUTSIDE RECORDS SUMMARY | 2024-05-11 15:00 | XMS_ITS | Encounter Summary ---
Author Organization [employer] Address 75 [facility] 7 [place] [address] Care Team Providers Care Lift Driver Name Role Phone Zev Sanders MD Primary Care Provider [phone] Reason for Visit * Reason Onset Date Comments Nurse Triage 04/20/2024 Encounter Details Date Type Department Care Team ([facility] st Contact Info) Description 04/20/2024 Telephone [facility] CHC MED & PEDS [address] [place], [place] [phone] Zev Sanders MD [address] [place] [address] Nurse Triage Social History Tobacco Use Types [...] immediate evaluation. Pt declines to come [facility] and agrees to go to ED. [...] Description 07/01/2024 11:00 AM EDT Nurse Only [facility] CHC MED & PEDS [address] [place] [address] documented as of this encounter Visit Diagnoses Not on filedocumented in this encounter Additional Health Concerns Assessment Noted Time PHQ-9 Depression Total Score: 7 10/14/19 24 11:59 AM EDT documented as of this encounter Care Teams Lift Driver Relationship Specialty Start Date End Date Zev Sanders MD [address] [place] [address] PCP - General Internal Medicine 11/16/19 documented as of this encounter
--- OUTSIDE RECORDS SUMMARY | 2024-05-11 15:00 | XMS_ITS | Encounter Summary ---
Author Organization [employer] Address 75 [facility] 7t [place] [address] Care Team Providers Care Welding Pantograph Machine Operator Name Role Phone Zev Sanders MD Primary Care Provider [phone] Encounter Details Date Type Department Care Team [...] Description 07/01/2024 11:00 AM EDT Nurse Only [facility] CHC MED & PEDS [address] [place] [address] documented as of this encounter Visit Diagnoses Not on filedocumented in this encounter Additional Health Concerns Assessment Noted Time PHQ-9 Depression Total Score: 7 10/14/19 24 11:59 AM EDT documented as of this encounter Care Teams Welding Pantograph Machine Operator Relationship Specialty Start Date End Date Zev Sanders MD [address] [place] [address] PCP - General Internal Medicine 11/16/19 documented as of this encounter
--- OUTSIDE RECORDS SUMMARY | 2024-05-11 15:00 | XMS_ITS | Encounter Summary ---
Author Organization [employer] Address 75 [facility] 7t [place] [address] Care Team Providers Care Research Nutritionist Name Role Phone Zev Sanders MD Primary Care Provider [phone] Encounter Details Date Type Department Care Team ([facility] st Contact Info) Description 07/21/2023 Orders Only [facility] CHC MED & PEDS [address] [place], [place] [phone] Zev Sanders MD [address] [place], [place] [phone] Social History Tobacco Use Types Packs/Day Years [...] 11:00 AM EDT Nurse Only [facility] CHC MED & PEDS [address] [place] [address] documented as of this encounter Visit Diagnoses Not on filedocumented in this encounter Care Teams Research Nutritionist Relationship Specialty Start Date End Date Zev Sanders MD [address] [place] [address] PCP - General Internal Medicine 11/16/19 documented as of this encounter
--- OUTSIDE RECORDS SUMMARY | 2024-05-11 15:00 | XMS_ITS | Encounter Summary ---
Author Organization [employer] [facility] Address 75 [facility] 7t [place] [address] Care Team Providers Care Switchman Name Role Phone Zev Sanders MD Primary Care Provider [phone] Encounter Details Date Type Department Care Team (Late Contact Info) Description 12/24/2022 Orders Only [facility] [address] [place] [address] Provider, Josh, Social History Tobacco Use Types Packs/Day Years [...] Department Care Team (Late Contact Info) Description 07/01/2024 11:00 AM EDT Nurse Only [facility] CHC MED & PEDS [address] [place] [address] documented as of this encounter Procedures Procedure Name Priority Date/Time Associated Diagnosis Comments HM PAP/HPV Routine 01/15/2022 documented in this encounter Results * Hm Pap Smear (01/15/2022) us Historical Provider HEALTH MAINTENANCE Final Result documented in this encounter Visit Diagnoses Not on filedocumented in this encounter Care Teams Switchman Relationship Specialty Start Date End Date eZv Sanders MD [address] [place] [address] PCP - General Internal Medicine 11/16/19 documented as of this encounter
--- OUTSIDE RECORDS SUMMARY | 2024-05-11 15:00 | XMS_ITS | Encounter Summary ---
Author Organization [employer] [facility] Address [address] [place] [address] 7t [place] [address] Care Team Providers Care Decal Decorator Name Role Phone Zev Sanders MD Primary Care Provider [phone] Reason for Visit * Reason Comments Med Refill Encounter Details Date Type Department Care Team ([facility] Contact Info) Description 11/05/[address] [facility] MED & PEDS [address] [place], [place] [phone] Zev Sanders MD [address] [place] [address] Chronic low back pain, unspecified back pain [...] Upcoming Encounters Date Type Department Care Team ([facility] Contact Info) Description 07/01/2024 11:00 AM EDT Nurse Only [facility] CHC MED & PEDS [address] [place] [address] documented as of this encounter Visit Diagnoses Diagnosis Chronic low back pain, unspecified back pain laterality, unspecified whether sciatica present documented in this encounter Care Teams Decal Decorator Relationship Specialty Start Date End Date Zev Sanders MD [address] [place] [address] PCP - General Internal Medicine 11/16/19 documented as of this encounter
--- OUTSIDE RECORDS SUMMARY | 2024-05-11 15:00 | XMS_ITS | Encounter Summary ---
Author Organization [employer] Address 75 [facility] 7 [place] [address] Care Team Providers Care Air Tank Assembler Name Role Phone Zev Sanders MD Primary Care Provider [phone] Reason for Visit * Reason Onset Date Comments No Show 04/29/2024 Encounter Details Date Type Department Care Team ([facility] Contact Info) Description 04/29/2024 Telephone [facility] CHC MED & PEDS [address] [place], [place] [phone] Zev Sanders MD [address] [place] [address] No Show Social History Tobacco Use Types [...] Description 07/01/2024 11:00 AM EDT Nurse Only [facility] CHC MED & PEDS [address] [place] [address] documented as of this encounter Visit Diagnoses Not on filedocumented in this encounter Additional Health Concerns Assessment Noted Time PHQ-9 Depression Total Score: 7 10/14/19 24 11:59 AM EDT documented as of this encounter Care Teams Air Tank Assembler Relationship Specialty Start Date End Date Zev Sanders MD [address] [place] [address] PCP - General Internal Medicine 11/16/19 documented as of this encounter
--- OUTSIDE RECORDS SUMMARY | 2024-05-11 15:00 | XMS_ITS | Encounter Summary ---
Author Organization [employer] Address [address] [facility] [address] 7t [place] [address] Care Team Providers Care Assembler Mechanical Ordnance Name Role Phone Zev Sanders MD Primary Care Provider [phone] Encounter Details Date Type Department Care Team ([facility] st Contact Info) Description 2024 Orders Only [facility] External Provider, [facility] Social History Tobacco Use Types Packs/Day Years [...] Description 07/01/2024 11:00 AM EDT Nurse Only [facility] MED & PEDS [address] [place] [address] documented as of this encounter Procedures Procedure Name Priority Date/Time Associated Diagnosis Comments VASC US LOWER EXTREMITY VENOUS DUPLEX BILATERAL Routine 2024 1:18 PM EST documented in this encounter Results * VASC US Lower Extremity Venous Duplex Bilateral (2024 1:18 PM EST) 2024 1:18 PM EST Narrative [facility] IMAGING - 2024 3:38 PM EST ? [facility] ?[address] ?[place] [address] ? Ultrasound Report ? Signed ? Patient: Deysi Pfeiffer D ?MR#: ?? [id number] ? : 1970 ?Acct:[id number] ? Age/Sex: 54 / F ?ADM Date: 05/03/24 ? Loc: HO.US ? Attending Dr: Anika Dennis PA-C ? Ordering Physician: Anika Dennis PA-C ?? Date of Service: 05/03/24 ?? Procedure(s): US venous duplex LE BI ?? Accession Number(s): [id number] ? cc: Zev Sanders MD; Anika Dennis PA-C ? EXAMINATION: ?? US LOWER EXTREMITY VENOUS (REFLUX EXAM), BILATERAL ? CLINICAL INFORMATION: ?? Varices with inflammation. ? COMPARISON: ?? April 21, 2024. ? TECHNIQUE: ?? Color flow triplex imaging and compression Doppler was performed to ?? evaluate both the deep and the superficial systems bilaterally. To ?? evaluate the superficial system, the examination was performed in the ?? upright position. Color-flow Doppler ultrasound and compression ?? ultrasound were utilized. In addition, maneuvers were utilized to ?? demonstrate reflux. ? FINDINGS: ? 1. DEEP VENOUS ULTRASOUND OF THE RIGHT LOWER EXTREMITY: ?? Common Femoral Vein: Compressible, normal respiratory variation and ?? augmented flow. ? Femoral Vein: Compressible, normal color flow and augmentation. ?? Popliteal Vein: Compressible, normal augmentation. ? Deep Reflux: There is no evidence of reflux in the deep system in ?? either the common femoral vein, superficial femoral or the popliteal ?? vein. ? There is no evidence of a Rossi's cyst. ? Probable 1.8 cm lipoma, mid right thigh. ? 2. SUPERFICIAL ULTRASOUND WITH DOPPLER OF RIGHT LOWER EXTREMITY: ? GREAT SAPHENOUS VEIN: ?? Saphenofemoral Junction: 0.5 cm; Reflux: 0 ms ?? Proximal Thigh: 0.3 cm; Reflux: 0 ms ?? Mid Thigh: 0.2 cm; Reflux: 0 ms ?? Distal Thigh: 0.2 cm; Reflux: 0 ms ?? At Knee: 0.2 cm; Reflux: 0 ms ?? Proximal Calf: 0.1 cm; Reflux: 0 ms ?? Mid Calf: 0.1 cm; Reflux: 0 ms ?? Distal Calf: 0.2 cm; Reflux: 0 ms ? DUPLICATED MEDIAL GREAT SAPHENOUS VEIN: ?? Diameter: None imaged ?? Reflux: NA ? DUPLICATED LATERAL GREAT SAPHENOUS VEIN: ?? Diameter: None imaged ?? Reflux: NA ? SMALL SAPHENOUS VEIN: ?? Saphenopopliteal Junction: 0.1 cm; Reflux: 0 ms ?? Proximal: 0.2 cm; Reflux: 0 ms ?? Distal: 0.2 cm; Reflux: 0 ms ? VEIN OF GIACOMINI: ?? Size: 0.3 cm. ?? Reflux: NA ? PERFORATORS: ?? Location: Small saphenous vein, throughout the calf ?? Size: Range: 0.1-0.2 cm. ?? Reflux: NA ? VARICOSITIES: ?? Location: None imaged. ?? Size: NA ?? Reflux: NA ? 3. DEEP VENOUS ULTRASOUND OF THE LEFT LOWER EXTREMITY: ?? Common Femoral Vein: Compressible, normal respiratory variation and ?? augmented flow. ? Femoral Vein: Compressible, normal color flow and augmentation. ?? Popliteal Vein: Compressible, normal augmentation. ? Deep Reflux: There is no evidence of reflux in the deep system in ?? either the common femoral vein, superficial femoral or the popliteal ?? vein. ? There is no evidence of a Rossi's cyst. ? Probable 1.1 cm lipoma, mid thigh. ? 4. SUPERFICIAL ULTRASOUND WITH DOPPLER OF LEFT LOWER EXTREMITY: ? GREAT SAPHENOUS VEIN: ?? Saphenofemoral Junction: 0.5 cm; Reflux: 0 ms ?? Proximal Thigh: 0.3 cm; Reflux: 0 ms ?? Mid Thigh: 0.2 cm; Reflux: 0 ms ?? Distal Thigh: Not seen . ?? At Knee: Not seen . ?? Proximal Calf: Not seen . ?? Mid Calf: 0.1 cm; Reflux: 0 ms ?? Distal Calf: 0.2 cm; Reflux: 0 ms ? DUPLICATED MEDIAL GREAT SAPHENOUS VEIN: ?? Diameter: 0.2 cm. ?? Reflux: NA ? DUPLICATED LATERAL GREAT SAPHENOUS VEIN: ?? Diameter: None imaged. ?? Reflux: NA ? SMALL SAPHENOUS VEIN: ?? Saphenopopliteal Junction: 0.5 cm; Reflux: 0 ms ?? Proximal: 0.5 cm; Reflux: 0 ms ?? Distal: 0.3 cm; Reflux: 0 ms ? VEIN OF GIACOMINI: ?? Size: NA ?? Reflux: NA ? PERFORATORS: ?? Location: Small saphenous vein. ?? Size: Range: 0.1-0.2 cm. ?? Reflux: NA ? VARICOSITIES: ?? Location: None Imaged ?? Size: NA ?? Reflux: NA ? US/US venous duplex LE BI ?? IMPRESSION: ?? Right: No venous insufficiency. Perforators in the small saphenous vein. ? Left: No venous insufficiency. Perforators in the small saphenous vein. ? Electronically signed by: ??Francis Connelly MD ??2024 03:35 PM ?? EST RP ? Dictated By: ?Francis Brannon MD ? Signed By: ?<Electronically signed by Francis Jaeger MD in OV> ? 05/03/24 1535 ? DD/ 1318 ? TD/TT: 05/03/24 1345 ? Reservoir Engineering Manager: ? Procedure Note Donotuseinterpreter, Image - [address] [address] Ultrasound Report Signed Patient: Deysi Pfeiffer DMR#: [id number] : 1970Acct:[id number] Age/Sex: 54 / FADM Date: 05/03/24 Loc: . Attending Dr: Anika Dennis PA-C Ordering Physician: Anika Dennis PA-C Date of Service: 05/03/24 Procedure(s): US venous duplex LE BI Accession Number(s): [id number] cc: Zev Sanders MD; Anika Dennis PA-C EXAMINATION: US LOWER EXTREMITY VENOUS (REFLUX EXAM), BILATERAL CLINICAL INFORMATION: Varices with inflammation. COMPARISON: April 21, 2024. TECHNIQUE: Color flow triplex imaging and compression Doppler was performed to evaluate both the deep and the superficial systems bilaterally. To evaluate the superficial system, the examination was performed in the upright position. Color-flow Doppler ultrasound and compression ultrasound were utilized. In addition, maneuvers were utilized to demonstrate reflux. FINDINGS: 1. DEEP VENOUS ULTRASOUND OF THE RIGHT LOWER EXTREMITY: Common Femoral Vein: Compressible, normal respiratory variation and augmented flow. Femoral Vein: Compressible, normal color flow and augmentation. Popliteal Vein: Compressible, normal augmentation. Deep Reflux: There is no evidence of reflux in the deep system in either the common femoral vein, superficial femoral or the popliteal vein. There is no evidence of a Rossi's cyst. Probable 1.8 cm lipoma, mid right thigh. 2. SUPERFICIAL ULTRASOUND WITH DOPPLER OF RIGHT LOWER EXTREMITY: GREAT SAPHENOUS VEIN: Saphenofemoral Junction: 0.5 cm; Reflux: 0 ms Proximal Thigh: 0.3 cm; Reflux: 0 ms Mid Thigh: 0.2 cm; Reflux: 0 ms Distal Thigh: 0.2 cm; Reflux: 0 ms At Knee: 0.2 cm; Reflux: 0 ms Proximal Calf: 0.1 cm; Reflux: 0 ms Mid Calf: 0.1 cm; Reflux: 0 ms Distal Calf: 0.2 cm; Reflux: 0 ms DUPLICATED MEDIAL GREAT SAPHENOUS VEIN: Diameter: None imaged Reflux: NA DUPLICATED LATERAL GREAT SAPHENOUS VEIN: Diameter: None imaged Reflux: NA SMALL SAPHENOUS VEIN: Saphenopopliteal Junction: 0.1 cm; Reflux: 0 ms Proximal: 0.2 cm; Reflux: 0 ms Distal: 0.2 cm; Reflux: 0 ms VEIN OF GIACOMINI: Size: 0.3 cm. Reflux: NA PERFORATORS: Location: Small saphenous vein, throughout the calf Size: Range: 0.1-0.2 cm. Reflux: NA VARICOSITIES: Location: None imaged. Size: NA Reflux: NA 3. DEEP VENOUS ULTRASOUND OF THE LEFT LOWER EXTREMITY: Common Femoral Vein: Compressible, normal respiratory variation and augmented flow. Femoral Vein: Compressible, normal color flow and augmentation. Popliteal Vein: Compressible, normal augmentation. Deep Reflux: There is no evidence of reflux in the deep system in either the common femoral vein, superficial femoral or the popliteal vein. There is no evidence of a Rossi's cyst. Probable 1.1 cm lipoma, mid thigh. 4. SUPERFICIAL ULTRASOUND WITH DOPPLER OF LEFT LOWER EXTREMITY: GREAT SAPHENOUS VEIN: Saphenofemoral Junction: 0.5 cm; Reflux: 0 ms Proximal Thigh: 0.3 cm; Reflux: 0 ms Mid Thigh: 0.2 cm; Reflux: 0 ms Distal Thigh: Not seen . At Knee: Not seen . Proximal Calf: Not seen . Mid Calf: 0.1 cm; Reflux: 0 ms Distal Calf: 0.2 cm; Reflux: 0 ms DUPLICATED MEDIAL GREAT SAPHENOUS VEIN: Diameter: 0.2 cm. Reflux: NA DUPLICATED LATERAL GREAT SAPHENOUS VEIN: Diameter: None imaged. Reflux: NA SMALL SAPHENOUS VEIN: Saphenopopliteal Junction: 0.5 cm; Reflux: 0 ms Proximal: 0.5 cm; Reflux: 0 ms Distal: 0.3 cm; Reflux: 0 ms VEIN OF GIACOMINI: Size: NA Reflux: NA PERFORATORS: Location: Small saphenous vein. Size: Range: 0.1-0.2 cm. Reflux: NA VARICOSITIES: Location: None Imaged Size: NA Reflux: NA US/US venous duplex LE BI IMPRESSION: Right: No venous insufficiency. Perforators in the small saphenous vein. Left: No venous insufficiency. Perforators in the small saphenous vein. Electronically signed by: Francis Connelly MD 2024 03:35 PM EST Dictated By: Francis Brannon MD Signed By: <Electronically signed by Francis Jaeger MDin OV> 05/03/24 1535 DD/ 1318 TD/TT: 05/03/24 1345 Reservoir Engineering Manager: [facility] External Provider CV VASC ULAR PROCEDURES Final Result [facility] IMAGING [address] [place] [address] documented in this encounter Visit Diagnoses Not on filedocumented in this encounter Additional Health Concerns Assessment Noted Time PHQ-9 Depression Total Score: 7 10/14/19 24 11:59 AM EDT documented as of this encounter Care Teams Assembler Mechanical Ordnance Relationship Specialty Start Date End Date Zev Sanders MD [address] [place] [phone] PCP - General Internal Medicine 11/16/19 documented as of this encounter
--- OUTSIDE RECORDS SUMMARY | 2024-05-11 15:00 | XMS_ITS | Encounter Summary ---
Author Organization [employer] Address [address] [facility] 7t [place] [address] Care Team Providers Care Facing End Trimmer Name Role Phone Zev Sanders MD Primary Care Provider [phone] Encounter Details Date Type Department [facility] Description 04/21/2024 Orders Only GENERIC [...] 11:00 AM EDT Nurse Only [facility] CHC MED & PEDS [address] [place] [address] documented as of this encounter Procedures Procedure Name Priority Date/Time Associated Diagnosis Comments [facility] LOWER EXTREMITY VENOUS DUPLEX BILATERAL Routine 04/21/2024 3:56 PM EST CBC WITH AUTO DIFFERENTIAL Routine 04/21/2024 3:22 PM EST PROTHROMBIN TIME-INR Routine 04/21/2024 3:22 PM EST COMPREHENSIVE METABOLIC PANEL Routine 04/21/2024 3:22 PM EST documented in this encounter Results * [facility] Lower Extremity Venous Duplex Bilateral (04/21/2024 3:56 PM EST) 04/21/2024 3:56 PM EST Narrative [facility] - 04/21/2024 4:23 PM EST ? [facility] ?[address] ?[place] [address] ? Ultrasound Report ? Signed ? Patient: Adelia Izquierdo,Deysi D ?MR#: ?? [id number] ? : 1970 ?Acct:[id number] ? Age/Sex: 53 / F ?ADM Date: 01/22/25 ? Loc: HO.ED ? Attending Dr: ? Ordering Physician: Shila Mueller NP ?? Date of Service: 04/21/24 ?? Procedure(s): US venous duplex LE BI ?? Accession Number(s): [id number] ? cc: Zev Sanders MD; Shila Mueller [...] DD/ 1556 ? TD/TT: 04/21/24 1612 ? Wicker Molded Candles: ? Procedure Note Elias, Travis - 04/21/[address] [address] Ultrasound Report Signed Patient: Deysi Pfeiffer DMR#: [id number] : 1970Acct:[id number] Age/Sex: 53 / FADM Date: 04/21/24 Loc: HO.ED Attending Dr: Ordering Physician: Shila Mueller NP Date of Service: 04/21/24 Procedure(s): US venous duplex LE BI Accession Number(s): [id number] cc: Zev Sanders MD; Shila Mueller NP [...] 04/21/24 1620 DD/ 1556 TD/TT: 04/21/24 1612 [employer]icker Molded Candles: [facility] External Provider CV VASC ULAR PROCEDURES Final Result Performing Organization Address [facility] Co de Phone Number [facility] [address] [place] [phone] * Prothrombin Time-INR (04/21/2024 3:22 PM EST) Prothrombin Time 10.9 10.9 - 12.4 SEC [facility] INTERNATIONAL NORM RATIO 0.9 0.9 - 1.1 [facility] Comment:INTERNATIONAL NORMAL IZED RATIO (INR) [...] ORDERAB LES Final Result Performing Organization Address [facility] Co de Phone Number [facility] [address] [place] [phone] * (ABNORMAL) Comprehensive Metabolic Panel (04/21/2024 3:22 PM EST) Sodium 143 135 - 145 mmol/L [facility] Potassium 4.9 3.3 - 5.1 mmol/L [facility] Chloride 103 96 - 108 mmol/L [facility] Carbon Dioxide 33(H) 22 - 29 mmol/L [facility] Anion Gap 12 12 - 20 [facility] Urea Nitrogen (BUN) 11 9 - 16 mg/dL [facility] Creatinine, Serum 0.59 0.5 - 1.4 mg/dL [facility] Creatinine Clr Calc Pharmacy 95.2 [facility] Comment:Provided height and weight: 162.56 cm,56.9 kg.eGFR (calculated from the MDRD study equation) and eCrCl(calculated from the Cockcroft-Gault equation) are based ondifferent parameters and may not yield comparable results.If eCrCl result is absurd, please check patient'sheight/weight. Estimated Glomerular Filt Rate >60 [facility] Comment:Chronic Kidney Disea se: Estimated GFR < 60 mL/min/1.80t4Kawrwi Kidney Disease: Estimated GFR < 15 mL/min/1.73m2 Glucose 116(H) 60 - 115 mg/dL [facility] Calcium 9.1 8.4 - 10.2 mg/dL [facility] Bilirubin, Total 0.3 0.0 - 1.0 mg/dL [facility] Aspartate Amino Transferase 17 5 - 31 U/L [facility] Alanine Aminotransferase 14 0 - 31 U/L [facility] Total Protein 6.6 6.5 - 8.0 g/dL [facility] Albumin Level 3.9 3.5 - 5.0 g/dL [facility] Alkaline Phosphatase 66 39 - 117 U/L [facility] 04/21/2024 3:22 PM EST 04/21/2024 3:24 PM EST us Generic External Data Provider LAB BLOOD ORDERAB LES Final Result [facility] [address] [place] [address] [phone] * (ABNORMAL) CBC auto differential (04/21/2024 3:22 PM EST) White Blood Count 11.6(H) 4.8 - 10.8 X10*3/uL [facility] Red Blood Count 4.26 4.20 - 5.50 X10*6/uL [facility] Hemoglobin 12.4 12.0 - 16.0 g/dl [facility] Hematocrit 39.4 37.0 - 47.0 % [facility] Mean Corpuscular Volume 92.5 80.0 - 98.0 fL [facility] Mean Corpuscular Hemoglobin 29.1 27.0 - 33.0 pg [facility] Mean Corpuscular HGB Conc 31.5 31.0 - 35.0 g/dl [facility] Red Cell Distribution Width 14.6 11.0 - 16.0 % [facility] Platelet Count 241 160 - 400 X10*3/uL [facility] Mean Platelet Volume 9.2(L) 9.4 - 12.3 fL [facility] Neutrophils Percent Auto 84.3(H) 45 - 73 % [facility] Imm Gran Pct Auto 0.6(H) 0.0 - 0.4 % [facility] Lymphocytes Percent Auto 10.4(L) 20 - 40 % [facility] Monocytes Percent Auto 3.6 2 - 11 % [facility] Eosinophils Percent Auto 0.4 0 - 4 % [facility] Basophils Percent Auto 0.7 0 - 2 % [facility] NRBC Pct Auto 0.0 0.0 - 0.2 /100WBC [facility] Neutrophils Absolute Auto 9.8(H) 2.0 - 8.3 x10*3/uL [facility] Imm Gran Abs Auto 0.07(H) 0.00 - 0.03 X10*3/uL [facility] Lymphocytes Absolute Auto 1.2 1.2 - 4.9 X10*3/uL [facility] Monocytes Absolute Auto 0.4 0.1 - 1.2 X10*3/uL [facility] Eosinophils Absolute Auto 0.1 0.0 - 0.4 X10*3/uL [facility] Basophils Absolute Auto 0.1 0.0 - 0.2 X10*3/uL [facility] NRBC Abs Auto 0.000 0.0 - 0.012 X10*3/uL [facility] 04/21/2024 3:22 PM EST 04/21/2024 3:24 PM EST us Generic External Data Provider LAB BLOOD ORDERAB LES Final Result [facility] [address] [place] [address] [phone] documented in this encounter Visit Diagnoses Not on filedocumented in this encounter Additional Health Concerns Assessment Noted Time PHQ-9 Depression Total Score: 7 10/14/19 24 11:59 AM EDT documented as of this encounter Care Teams Facing End Trimmer Relationship Specialty Start Date End Date Zev Sanders MD [address] [place] [phone] PCP - General Internal Medicine 11/16/19 documented as of this encounter
--- OUTSIDE RECORDS SUMMARY | 2024-05-11 15:00 | XMS_ITS | Encounter Summary ---
Author Organization [employer] Address [address] [facility] 7 [place] [address] Care Team Providers Care Chemical Process Analyst Name Role Phone Zev Sanders MD Primary Care Provider [phone] Reason for Visit * Reason Onset Date Comments CHART PREP 04/28/2024 Encounter Details Date Type Department Care Team ([facility] Contact Info) Description 04/28/2024 Telephone [facility] CHC MED & PEDS [address] [place], [place] [phone] Zev Sanders MD [address] [place] [address] CHART PREP Social History Tobacco Use Types [...] Description 07/01/2024 11:00 AM EDT Nurse Only [facility] CHC MED & PEDS [address] [place] [address] documented as of this encounter Visit Diagnoses Not on filedocumented in this encounter Additional Health Concerns Assessment Noted Time PHQ-9 Depression Total Score: 7 10/14/19 24 11:59 AM EDT documented as of this encounter Care Teams Chemical Process Analyst Relationship Specialty Start Date End Date Zev Sanders MD [address] [place] [address] PCP - General Internal Medicine 11/16/19 documented as of this encounter
--- OUTSIDE RECORDS SUMMARY | 2024-05-11 15:00 | XMS_ITS | Encounter Summary ---
Author Organization [employer] Address [address] [facility] 7 [place] [address] Care Team Providers Care Lab Courier Name Role Phone Zev Sanders MD Primary Care Provider [phone] Reason for Visit * Reason Onset Date Comments Appointment Request 11/01/2022 Encounter Details Date Type Department Care Team ([facility] st Contact Info) Description 11/01/2022 Telephone [facility] CHC MED & PEDS [address] [place], [place] [phone] Zev Sanders MD [address] [place] [address] Appointment Request Social History Tobacco Use Types [...] PE on 10/24/2022. Please contact pt at [phone] documented in this encounter Plan of Treatment Upcoming Encounters Date Type Department Care Team (Late st Contact Info) Description 07/01/2024 11:00 AM EDT Nurse Only [facility] CHC MED & PEDS [address] [place] [address] documented as of this encounter Visit Diagnoses Not on filedocumented in this encounter Care Teams Lab Courier Relationship Specialty Start Date End Date Zev Sanders MD [address] [place] [address] PCP - General Internal Medicine 11/16/19 documented as of this encounter
--- OUTSIDE RECORDS SUMMARY | 2024-05-11 15:00 | XMS_ITS | Encounter Summary ---
Author Organization [employer] Address 75 [facility] 7 [place] [address] Care Team Providers Care Diesel Tractor Engine Mechanic Name Role Phone Zev Sandres MD Primary Care Provider [phone] Reason for Visit * Reason Onset Date Comments chart prep 05/06/2024 Encounter Details Date Type Department Care Team ([facility] st Contact Info) Description 05/06/2024 Telephone [facility] CHC MED & PEDS [address] [place], [place] [phone] Zev Sanders MD [address] [place] [address] chart prep Social History Tobacco Use Types Packs/Day Years [...] encounter Miscellaneous Notes * Telephone Encounter - Angélica Bautista [place] - 05/06/2024 1:49 PM EST Chart Prep Labs: done Images: done Vaccines due: yes Referrals: none Screenings: mammogram Overdue care gaps: [place], SDOH documented in this encounter Plan of Treatment Upcoming Encounters Date Type Department Care Team (Late st Contact Info) Description 07/01/2024 11:00 AM EDT Nurse Only [facility] CHC MED & PEDS [address] [place] [address] documented as of this encounter Visit Diagnoses Not on filedocumented in this encounter Additional Health Concerns Assessment Noted Time PHQ-9 Depression Total Score: 7 10/14/19 24 11:59 AM EDT documented as of this encounter Care Teams Diesel Tractor Engine Mechanic Relationship Specialty Start Date End Date Zev Sanders MD [address] [place] [address] PCP - General Internal Medicine 11/16/19 documented as of this encounter
--- OUTSIDE RECORDS SUMMARY | 2024-05-11 15:00 | XMS_ITS | Encounter Summary ---
Author Organization [employer] Address 75 [facility] 7 [place] [address] Care Team Providers Care Hydrogen Plant Operations Manager Name Role Phone Zev Sanders MD Primary Care Provider [phone] Reason for Visit * Reason Onset Date Comments Appointment Request 2024 Encounter Details Date Type Department Care Team ([facility] st Contact Info) Description 2024 Telephone [facility] MEDICINE [address] [place] [address] Zev Sanders MD [address] [place] [address] Appointment Request Social History Tobacco Use Types [...] Description 07/01/2024 11:00 AM EDT Nurse Only [facility] CHC MED & PEDS [address] [place] [address] documented as of this encounter Visit Diagnoses Not on filedocumented in this encounter Additional Health Concerns Assessment Noted Time PHQ-9 Depression Total Score: 7 10/14/19 24 11:59 AM EDT documented as of this encounter Care Teams Hydrogen Plant Operations Manager Relationship Specialty Start Date End Date Zev Sanders MD [address] [place] [address] PCP - General Internal Medicine 11/16/19 documented as of this encounter
--- OUTSIDE RECORDS SUMMARY | 2024-05-11 15:00 | XMS_ITS | Encounter Summary ---
Author Organization [employer] Address [address] [facility] 7 [place] [address] Care Team Providers Care O[employer] Truck Driver Name Role Phone Zev Sanders MD Primary Care Provider [phone] Reason for Visit * Reason Comments Pre-visit Planning SDOH will need to be completed in office. Encounter Details Date Type Department Care Team ([facility] Contact Info) Description 04/21/2024 Patient Outreach [facility] CHC MED & PEDS [address] [place], [place] [phone] Zev Sanders MD [address] [place], [place] [phone] Pre-visit Planning (SDOH will need to be [...] 11:00 AM EDT Nurse Only [facility] MED & PEDS [address] [place] [address] documented as of this encounter Visit Diagnoses Not on filedocumented in this encounter Additional Health Concerns Assessment Noted Time PHQ-9 Depression Total Score: 7 10/14/19 24 11:59 AM EDT documented as of this encounter Care Teams [employer] Truck Driver Relationship Specialty Start Date End Date Zev Sanders MD [address] [place] [address] PCP - General Internal Medicine 11/16/19 documented as of this encounter
--- OUTSIDE RECORDS SUMMARY | 2024-05-11 15:00 | XMS_ITS | Encounter Summary ---
Author Organization [employer] [facility] Address [address] [place] [address] 7t [place] [address] Care Team Providers Care Business Unit Leader Name Role Phone Zev Sanders MD Primary Care Provider [phone] Encounter Details Date Type Department Care Team ([facility] Contact Info) Description 04/12/2022 Orders Only [facility] [address] [place] [address] Zev Sanders MD [address] [place], [place] [phone] Social History Tobacco Use Types Packs/Day Years [...] Upcoming Encounters Date Type Department Care Team ([facility] Contact Info) Description 07/01/2024 11:00 AM EDT Nurse Only [facility] CHC MED & PEDS [address] [place] [address] documented as of this encounter Procedures Procedure [...] (10/21/2022 2:13 PM EDT) Slide Review VERIFIED [facility] 10/21/2022 2:13 PM EDT 10/21/2022 5:23 PM EDT us Zev Sanders MD LAB BLOOD ORDERABLES Final Result [facility] [address] [place] [address] [phone] * (ABNORMAL) VENOUS BLOOD GAS (09/04/2022 1:17 PM EDT) VBG pH 7.37 7.32 - 7.43 [facility] Comment:METER #: [id number] additional_comment: Cb murpe VBG PCO2 57 mmHg [facility] Comment:METER #: [id number] additional_comment: Cb murpe VBG PO2 48 mmHg [facility] Comment:METER #: [id number] additional_comment: Cb murpe VBG Base Excess 6.2 mmol/L [facility] Comment:METER #: [id number] additional_comment: Cb murpe VBG HCO3 33(H) 22 - 26 mmol/L [facility] Comment:METER #: [id number] additional_comment: Cb murpe O2 Sat, Lefty 77.0 % [facility] Comment:METER #: [id number] additional_comment: Cb murpe 09/04/2022 1:17 PM EDT 09/04/2022 1:23 PM EDT [facility] External Provider LAB BLO OD ORDERABLES Final Result Performing Organization Address [facility] Co de Phone Number [facility] [address] [place] [phone] * D Dimer High Sensitivity (09/04/2022 1:10 PM EDT) [facility] D Dimer High Sensitivity <150 NG/ML [facility] Comment:D-DIMER HS REFERENCE RANGENote: Our assay reports D-Dimer Units (D- DU).The cut-off value for venous thromboembolic (VTE) disease is230 ng/mL. This value has a very high negative predictivevalue when the patient has a low to moderate clinicalprobability of VTE.The upper limit of normal is 243 ng/mL. 09/04/2022 1:10 PM EDT 09/04/2022 1:18 PM EDT [facility] External Provider LAB BLO OD ORDERABLES Final Result Performing Organization Address [facility]/ZIP Co de Phone Number [facility] [address] [place] [phone] * B Type Natriuretic Peptide (BNP) (09/04/2022 11:26 AM EDT) [facility] B Type Natriuretic Peptide 19 <100 pg/mL [facility] Comment:For those patients w ho are being treated with Natrecor(nesiritide, recombinant BNP), BNP testing should beperformed at least two hours post treatment in order toensure that only endogenous levels of BNP are detected. 09/04/2022 11:2 6 AM EDT 09/04/2022 1:27 PM EDT [facility] External Provider LAB BLO OD ORDERABLES Final Result [facility] [address] [place] [address] [phone] * (ABNORMAL) Comprehensive Metabolic Panel (09/04/2022 11:26 AM EDT) Sodium 142 135 - 145 mmol/L [facility] Potassium 4.2 3.3 - 5.1 mmol/L [facility] Chloride 102 96 - 108 mmol/L [facility] Carbon Dioxide 34(H) 22 - 29 mmol/L [facility] Anion Gap 10(L) 12 - 20 [facility] Urea Nitrogen (BUN) 15 9 - 16 mg/dL [facility] Creatinine, Serum 0.68 0.5 - 1.4 mg/dL [facility] Creatinine Clr Calc Pharmacy 74.8 [facility] Comment:Provided height and weight: 162.56 cm,49 kg.eGFR (calculated from the MDRD study equation) and eCrCl(calculated from the Cockcroft-Gault equation) are based ondifferent parameters and may not yield comparable results.If eCrCl result is absurd, please check patient'sheight/weight. Estimated Glomerular Filt Rate >60 [facility] Comment:NOTE: For -Am erican individuals, multiply the result by 1.210.Chronic Kidney Disease: Estimated GFR < 60 mL/min/1.57r1Evapya Kidney Disease: Estimated GFR < 15 mL/min/1.73m2 Glucose 112 60 - 115 mg/dL [facility] Calcium 9.4 8.4 - 10.2 mg/dL [facility] Bilirubin, Total 0.7 0.0 - 1.0 mg/dL [facility] Aspartate Amino Transferase 21 5 - 31 U/L [facility] Alanine Aminotransferase 17 0 - 31 U/L [facility] Total Protein 6.7 6.5 - 8.0 g/dL [facility] Albumin Level 4.1 3.5 - 5.0 g/dL [facility] Alkaline Phosphatase 73 39 - 117 U/L [facility] 09/04/2022 11:2 6 AM EDT 09/04/2022 11:33 AM EDT us [facility] External Provider LAB BLO OD ORDERABLES Final Result [facility] [address] [place] [phone] * COVID-19 ID NOW (BTCJam) (09/04/2022 11:26 AM EDT) IDNOW SERIAL# [id number] [facility] COVID-19 TEST Negative Negative [facility] COVID-19 NOTE See Note [facility] Comment: Results are for the identification of SARS-CoV2 RNA. TheSARS-CoV2 RNA is generally detectable in respiratory samplesduring the acute phase of infection. Positive results areindicative of the presence of SARS-CoV-2 RNA; clinicalcorrelation with patient history and other diagnosticinformation is necessary to determine patient infectionstatus. Positive results do not rule out bacterial infectionor co- infection with other viruses.Testing facilities within the [facility] are required to report all positive [...] use by authorized laboratories.Testing performed on the WhoKnow[employer] ID NOW utilizing NAAT. 09/04/2022 11:2 6 AM EDT 09/04/2022 11:33 AM EDT us [facility] Exter nal Provider LAB MOLECULAR DIAGNOSTICS ORDERABLES Final Result [facility] [address] [place] [phone] [phone] * (ABNORMAL) CBC auto differential (09/04/2022 11:26 AM EDT) White Blood Count 10.4 4.8 - 10.8 X10*3/uL [facility] Red Blood Count 5.42 4.20 - 5.50 X10*6/uL [facility] Hemoglobin 16.0 12.0 - 16.0 g/dl [facility] Hematocrit 49.3(H) 37.0 - 47.0 % [facility] Mean Corpuscular Volume 91.0 80.0 - 98.0 fL [facility] Mean Corpuscular Hemoglobin 29.5 27.0 - 33.0 pg [facility] Mean Corpuscular HGB Conc 32.5 31.0 - 35.0 g/dl [facility] Red Cell Distribution Width 14.6 11.0 - 16.0 % [facility] Platelet Count 238 160 - 400 X10*3/uL [facility] Mean Platelet Volume 9.5 9.4 - 12.3 fL [facility] Neutrophils Percent Auto 51.2 45 - 73 % [facility] Imm Gran Pct Auto 0.3 0.0 - 0.4 % [facility] Lymphocytes Percent Auto 38.4 20 - 40 % [facility] Monocytes Percent Auto 8.1 2 - 11 % [facility] Eosinophils Percent Auto 1.5 0 - 4 % [facility] Basophils Percent Auto 0.5 0 - 2 % [facility] NRBC Pct Auto 0.0 0.0 - 0.2 /100WBC [facility] Neutrophils Absolute Auto 5.4 2.0 - 8.3 x10*3/uL [facility] Imm Gran Abs Auto 0.03 0.00 - 0.03 X10*3/uL [facility] Lymphocytes Absolute Auto 4.0 1.2 - 4.9 X10*3/uL [facility] Monocytes Absolute Auto 0.8 0.1 - 1.2 X10*3/uL [facility] Eosinophils Absolute Auto 0.2 0.0 - 0.4 X10*3/uL [facility] Basophils Absolute Auto 0.1 0.0 - 0.2 X10*3/uL [facility] NRBC Abs Auto 0.000 0.0 - 0.012 X10*3/uL [facility] 09/04/2022 11:2 6 AM EDT 09/04/2022 11:33 AM EDT us [facility] External Provider LAB BLO OD ORDERABLES Final Result Performing Organization Address City/State/[facility] Co de Phone Number [facility] [address] [place] [address] [phone] documented in this encounter Visit Diagnoses Not on filedocumented in this encounter Care Teams Business Unit Leader Relationship Specialty Start Date End Date Zev Sanders MD [address] [place] [phone] PCP - General Internal Medicine 11/16/19 documented as of this encounter
--- OUTSIDE RECORDS SUMMARY | 2024-05-11 15:00 | XMS_ITS | Encounter Summary ---
Author Organization [employer] Address [address] [facility] 7t [place] [address] Care Team Providers Care Principal Planner Name Role Phone Zev Sanders MD Primary Care Provider [phone] Reason for Visit * Reason Comments Med Refill Encounter Details Date Type Department Care Team ([facility] Contact Info) Description 05/04/2024 Refill [facility] CHC MED & PEDS [address] [place], [place] [phone] Zev Sanders MD [address] [place] [address] Chronic low back pain, unspecified back pain [...] Upcoming Encounters Date Type Department Care Team ([facility] st Contact Info) Description 07/01/2024 11:00 AM EDT Nurse Only [facility] CHC MED & PEDS [address] [place] [address] documented as of this encounter Visit Diagnoses Diagnosis Chronic low back pain, unspecified back pain laterality, unspecified whether sciatica present documented in this encounter Additional Health Concerns Assessment Noted Time PHQ-9 Depression Total Score: 7 10/14/19 24 11:59 AM EDT documented as of this encounter Care Teams Principal Planner Relationship Specialty Start Date End Date Zev Sanders MD [address] [place] [address] PCP - General Internal Medicine 11/16/19 documented as of this encounter
--- OUTSIDE RECORDS SUMMARY | 2024-05-11 15:00 | XMS_ITS | Encounter Summary ---
Author Organization [employer] Address [address] [facility] 7t [place] [address] Care Team Providers Care Field Map Editor Name Role Phone Zev Sanders MD Primary Care Provider [phone] Encounter Details Date Type Department Care Team (Latest Contact Info) Description 05/10/2024 Travel Social History Tobacco Use Types Packs/Day [...] Description 07/01/2024 11:00 AM EDT Nurse Only [facility] CHC MED & PEDS [address] [place] [address] documented as of this encounter Visit Diagnoses Not on filedocumented in this encounter Additional Health Concerns Assessment Noted Time PHQ-9 Depression Total Score: 7 10/14/19 24 11:59 AM EDT documented as of this encounter Care Teams Field Map Editor Relationship Specialty Start Date End Date Zev Sanders MD [address] [place] [address] PCP - General Internal Medicine 11/16/19 documented as of this encounter
--- OUTSIDE RECORDS SUMMARY | 2024-05-11 15:00 | XMS_ITS | Encounter Summary ---
Author Organization [employer] [facility] Address [address] [facility] [address] [facility] [address] [place] [address] Care Team Providers Care Equipment Operation Instructor Name Role Phone Zev Sanders MD Primary Care Provider [phone] Reason for Referral * Imaging (Routine) - Authorized Specialty Diagnoses / Procedures Referred By Contpilar ye Referred To Contact Radiology Diagnoses [facility] (current) use of systemic steroids Procedures BONE DENSITY/DEXA (HIPS, PELVIS OR SPINE) Zev Sanders MD [address] [place] [address] Phone: tel: fax: [address] Phone: tel: fax: Referral ID Status Reason Start Date Expiration Date V isits Requested Visits Authorized [id number] Authorized 05/10/2024 05/10/2025 1 1 Reason for Visit * Reason Comments Follow-up HDF Encounter Details Date Type Department Care Team (Late st Contact Info) Description 05/10/2024 1:15 PM EST Office Visit [facility] PEDS [address] [place], [place] [phone] Zev Sanders MD [address] [place] [address] [facility] (current) use of systemic steroids (Primary Dx); Asthma-chronic obstructive pulmonary disease overlap syndrome (CMS/HCC) Social History Tobacco Use Types Packs/Day Years Used Date Smoking Tobacco: Former Cigarettes 1 - 2019 Smokeless Tobacco: Never Alcohol Use Standard [...] PM EDT documented as of this encounter Last Filed Vital Signs Vital Sign Reading Time Taken Comments Blood Pressure 125/75 05/10/2024 1:17 PM EST Pulse 84 05/10/2024 1:17 PM EST Temperature 36.6 ??C (97.8 ??F) 05/10/2024 1:17 PM ES T Respiratory Rate - - Oxygen Saturation 93% 05/10/2024 1:17 PM EST Inhaled Oxygen Concentration - - Weight 55.4 kg (122 lb 3.2 oz) 05/10/2024 1:17 P M EST Height 161.3 cm (5' 3.5 ) 05/10/2024 1:17 PM EST Body Mass Index 21.31 05/10/2024 1:17 PM EST documented in this encounter Progress Notes * Zev Sanders MD - 05/10/2024 1:15 PM EST Subjective Patient ID: Deysi Izquierdo is a 54 y.o. female who presents for Follow-up (HDF). HPI Ms Desyi Izquierdo was evaluated in the emergency department at [facility] on April 04, 2024 for an asthma exacerbation. Treated as per protocol with IV Solu-Medrol, IV magnesium, DuoNeb without improvement by EMS. Imaging showed lower right lung pneumonia. Started on ceftriaxoneIV and azithromycin. Patient was discharged on cefuroxime, azithromycin, prednisone and ibuprofen. Patient has improved since discharge. Complains of palpitations after treatments with albuterol. 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 Patient came in to the office today with her oxygen on. Patient Active Problem List Diagnosis Olecranon bursitis, right elbow Asthma-chronic obstructive pulmonary disease overlap syndrome (CMS/HCC) Chronic back pain Essential hypertension Menopausal symptom Migraine Mood disorder (CMS/HCC) Seasonal allergies Tobacco dependence syndrome Current Outpatient Medications on File Prior to Visit Medication Sig Dispense Refill budesonide-formoterol (Symbicort) 160-4.5 MCG/ACT inhaler Inhale 2 puffs in the morning and at bedtime. cholecalciferol VITAMIN D (Vitamin D-3) 50 MCG (1999) tablet TAKE ONE TABLET EVERY MORNING 90 tablet 0 esomeprazole (NexIUM) [address] capsule TAKE ONE CAPSULE EVERY MORNING 90 capsule 1 ipratropium-albuterol (Duo-Neb) 0.5-2.5 mg/3 mL nebulizer solution Take 3 mL by nebulization Every 6-8 hours as needed for wheezing. lisinopril 10 MG tablet TAKE ONE TABLET EVERY MORNING 90 tablet 1 mirtazapine (Remeron) 45 MG tablet Take 1 tablet by mouth at bedtime. montelukast (Singulair) 10 MG tablet Take 1 tablet by mouth at bedtime. naloxone (Narcan) 4 mg/0.1 mL nasal spray PLEASE SEE ATTACHED FOR DETAILED DIRECTIONS oxyCODONE (Roxicodone) 5 MG immediate release tablet Take 1 tablet by mouth if needed in the morning, at noon, and at bedtime for severe pain. predniSONE (Deltasone) 5 MG tablet Take 1 tablet by mouth Once per day. pregabalin (Lyrica) 150 MG capsule TAKE ONE CAPSULE TWICE DAILY IN THE MORNING AND AT BEDTIME 60 capsule 0 QUEtiapine (SEROquel) 100 MG tablet Take 1 tablet by mouth at bedtime. tiotropium (Spiriva Respimat) 2.5 MCG/ACT inhaler INHALE TWO PUFF BY MOUTH EVERY MORNING 4 g 5 [DISCONTINUED] pregabalin (Lyrica) 150 MG capsule TAKE ONE CAPSULE TWICE DAILY IN THE MORNING AND AT BEDTIME 60 capsule 0 No current facility-administered medications on file prior to visit. No Known Allergies Review of Systems Constitutional: Negative for appetite change, chills, diaphoresis and fatigue. Respiratory: Negative for cough, choking and shortness of breath. Cardiovascular: Negative for leg swelling. Gastrointestinal: Negative for abdominal pain and anal bleeding. Genitourinary: Negative for decreased urine volume, pelvic pain and urgency. Objective BP 125/75 (BP Location: Left arm, Patient Position: Sitting, BP Cuff Size: Adult) Pulse 84 Temp97.8 ??F (36.6 ??C) (Oral) Ht 5' 3.5 (1.613 m) Wt 122 lb 3.2 oz (55.4 kg) SpO2 93% BMI 21.31 kg/m?? Physical Exam Constitutional: General: She is not in acute distress. Appearance: Normal appearance. She is not ill-appearing, toxic-appearing or diaphoretic. Cardiovascular: Rate and Rhythm: Normal rate. Pulmonary: Effort: Pulmonary effort is normal. No respiratory distress. Breath sounds: No stridor. Abdominal: General: Abdomen is flat. Neurological: General: No focal deficit present. Mental Status: She is alert. Psychiatric: Mood and Affect: Mood normal. 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 Levalbuterol prescribed given h/o palpitation on albuterol. Advised to follow up w/ her unemployment insurance director. Orders: - levalbuterol (Xopenex) 0.63 MG/3ML nebulizer solution; Take 1 ampule by nebulization every 8 (eight) hours if needed for wheezing. documented in this encounter Plan of Treatment Upcoming Encounters Date Type Department Care Team (Late st Contact Info) Description 07/01/2024 11:00 AM EDT Nurse Only [facility] MED & PEDS [address] [place] [address] Scheduled Orders Name Type Priority Associated Diagnoses Orde r Schedule BONE DENSITY/DEXA (HIPS, PELVIS OR SPINE) Imaging Routine [facility] (current) use of systemic steroids Expected: 05/10/2024, Expires: 05/10/2025 documented as of this encounter Visit Diagnoses Diagnosis [facility] (current) use of systemic steroids- Primary Asthma-chronic obstructive pulmonary disease overlap syndrome (CMS/HCC) documented in this encounter Additional Health Concerns Assessment Noted Time PHQ-9 Depression Total Score: 7 10/14/19 24 11:59 AM EDT documented as of this encounter Care Teams Equipment Operation Instructor Relationship Specialty Start Date End Date Zev Sanders MD [address] [place] [id number] PCP - General Internal Medicine 11/16/19 documented as of this encounter
--- OUTSIDE RECORDS SUMMARY | 2024-05-11 15:00 | XMS_ITS | Encounter Summary ---
Author Organization [employer] Address [address] [facility] [address] [place] [address] Care Team Providers Care Raw Scales Operator Name Role Phone Zev Sanders MD Primary Care Provider [phone] Reason for Visit * Reason Onset Date Comments Results 04/22/2024 Encounter Details Date Type Department Care Team ([facility] Contact Info) Description 04/22/2024 Telephone [facility] MED & PEDS [address] [place], [place] [phone] Zev Sanders MD [address] [place] [address] Results Social History Tobacco Use Types Packs/Day [...] Pt stated she [place] [facility] and was informed results were faxed to PCP. Pt requesting a call back with lab results. documented in this encounter Plan of Treatment Upcoming Encounters Date Type Department Care Team ([facility] st Contact Info) Description 07/01/2024 11:00 AM EDT Nurse Only [facility] MED & PEDS [address] [place] [address] documented as of this encounter Visit Diagnoses Not on filedocumented in this encounter Additional Health Concerns Assessment Noted Time PHQ-9 Depression Total Score: 7 10/14/19 24 11:59 AM EDT documented as of this encounter Care Teams Raw Scales Operator Relationship Specialty Start Date End Date Zev Sanders MD [address] [place] [address] PCP - General Internal Medicine 11/16/19 documented as of this encounter
--- OUTSIDE RECORDS SUMMARY | 2024-05-11 15:00 | XMS_ITS | Encounter Summary ---
Author Organization [employer] Address [address] [facility] [address] [place] [address] Care Team Providers Care Errand Runner Name Role Phone Zev Sanders MD Primary Care Provider [phone] Reason for Visit * Reason Comments Transition Of Care (Tcm) HDF #2 attempt _ unable to lvm Encounter Details Date Type Department Care Team ([facility] st Contact Info) Description 04/14/2024 Patient Outreach [facility] MED & PEDS [address] [place], [place] [phone] Zev Sanders MD [address] [place] [address] Transition Of Care (Tcm) (HDF #2 attempt [...] Admission/Visit 04/06/24 Date of Discharge 04/08/24 Facility [facility] Diagnosis Pnuemonia , RSV Disposition Discharged Home [...] Description 07/01/2024 11:00 AM EDT Nurse Only [facility] PEDS [address] [place] [address] documented as of this encounter Visit Diagnoses Not on filedocumented in this encounter Additional Health Concerns Assessment Noted Time PHQ-9 Depression Total Score: 7 10/14/19 24 11:59 AM EDT documented as of this encounter Care Teams Errand Runner Relationship Specialty Start Date End Date Zev Sanders MD [address] [place] [id number] PCP - General Internal Medicine 11/16/19 documented as of this encounter
--- OUTSIDE RECORDS SUMMARY | 2024-05-11 15:00 | XMS_ITS | Clinical Summary ---
Author Organization [employer] Address [address] [facility] 7[address] [place] [address] Care Team Providers Care Android Programmer Name Role Phone Zev Sanders MD Primary Care Provider [phone] Allergies No known active allergies Medications tiotropium [...] MORNING 90 capsule 1 12/02/19 24 Active cholecalcifero l VITAMIN D (Vitamin [...] PLEASE SEE ATTACHED FOR DETAILED DIRECTIONS 09/08/19 Active predniSONE (Deltasone) 5 MG tablet Take 1 tablet by mouth Once per day. Active pregabalin (Lyrica) 150 MG capsuleIndicat ions:Chronic low back pain, unspecified back pain laterality, unspecified whether sciatica present TAKE ONE CAPSULE TWICE DAILY IN THE MORNING AND AT BEDTIME 60 capsule 05/06/19 25 Active levalbuterol (Xopenex) 0.63 MG/3ML nebulizer solutionIndica tions:Asthma-c hronic obstructive pulmonary disease overlap syndrome (CMS/HCC) Take 1 ampule by nebulization every 8 (eight) hours if needed for wheezing. 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); Asthma-chronic obstructive pulmonary disease overlap syndrome (CMS/HCC) 05/10/2024 Travel 05/06/2024 Telephone [facility] [address] [place] [address] Zev Sanders MD chart prep 05/06/2024 Telephone [facility] [address] [place] [address] Zev Sanders MD chart prep 05/04/2024 Refill [facility] [address] [place] [address] Zev Sanders MD Chronic low back pain, unspecified back pain laterality, unspecified whether sciatica present 2024 Orders Only [facility] External Provider, [facility] 2024 Telephone [facility] [address] [place] [address] Zev Sanders MD Appointment Request 05/01/2024 Travel 04/29/2024 Telephone [facility] [address] [place] [address] Zev Sanders MD No Show 04/28/2024 Telephone [facility] [address] [place] [address] Zev Sanders MD CHART PREP 04/22/2024 Telephone [facility] [address] [place] [address] Zev Sanders MD Results 04/21/2024 Orders Only GENERIC EXTERNAL DATA DEPARTMENT Provider, Generic External Data 04/21/2024 Patient Outreach [facility] [address] [place] [address] Zev Sanders MD Transition Of Care (Tcm) (HDF scheduled. ) 04/21/2024 Patient Outreach [facility] [address] [place] [address] Zev Sanders MD Pre-visit Planning (SDOH will need to be completed in office. ) 04/20/2024 Telephone [facility] [address] [place] [address] Zev Sanders MD Nurse Triage 04/14/2024 Patient Outreach [facility] [address] [place] [address] Zev Sanders MD Transition Of Care (Tcm) (HDF #2 attempt _ unable to lvm) 04/09/2024 Patient Outreach [facility] [address] [place] [address] Zev Sanders MD Transition Of Care (Tcm) (HDF- Not in service) 04/06/2024 Orders Only GENERIC EXTERNAL DATA DEPARTMENT Provider, Generic External Data 03/28/2024 Refill [facility] [address] [place] [address] Zev Sanders MD Chronic low back pain, unspecified back pain laterality, unspecified whether sciatica present 03/04/2024 Telephone [facility] [address] [place] [address] Zev Sanders MD [employer] Paperwork ot renew O2 03/01/2024 Refill [facility] [address] [place] [address] Zev Sanders MD Chronic low back pain, [...] 05/10/2024 1:17 PM ES T Respiratory Rate 19 10/14/2023 11:08 AM EDT Oxygen Saturation 93% 05/10/2024 1:17 PM EST Inhaled Oxygen Concentration - - Weight 55.4 kg (122 lb 3.2 oz) 05/10/2024 1:17 P M EST Height 161.3 cm (5' 3.5 ) 05/10/2024 1:17 PM EST Body Mass Index 21.31 05/10/2024 1:17 PM EST Plan of Treatment Upcoming Encounters Date Type Department Care Team (Late st Contact Info) Description 07/01/2024 11:00 AM EDT Nurse Only [facility] [address] [place] [address] Health Maintenance Due Date Last Done Comments CT Colonography 1970 Colonoscopy 1970 FIT 1970 FOBT 1970 HIV Screening 1970 Sigmoidoscopy 1970 Alcohol/Substance Use Screening 1982 Hepatitis A Vaccines (1 of 2 - Risk 2-dose series) 1989 Hepatitis B Vaccines (1 of 3 - 19+ 3-dose series) 1989 SDOH Screening 10/17/2023 10/16/2022 Mammogram 10/18/2023 10/17/2021, 12/04/2017 COVID-19 Vaccine (1 - season) 2023 Zoster Vaccines (2 of 2) 06/24/2024 04/29/2024 Depression Screening 10/13/2024 10/14/2023, 10/14/19 24 Tobacco Screening 05/10/2025 05/10/2024 Colorectal Cancer Screening 03/10/2026 FIT DNA/Cologuard 03/10/2026 [...] Procedure Name Priority Date/Time Associated Diagnosis Comments [facility] LOWER EXTREMITY VENOUS DUPLEX BILATERAL Routine 2024 1:18 PM EST [facility] LOWER EXTREMITY VENOUS DUPLEX BILATERAL Routine [...] Recently Relevant to Health Maintenance Results * [facility] Lower Extremity Venous Duplex Bilateral (2024 1:18 PM EST) Only the most recent of2 resultswithin the time period is included. 2024 1:18 PM EST Narrative [facility] - 2024 3:38 PM EST ? [facility] ?[address] ?[place] [address] ? Ultrasound Report ? Signed ? Patient: Deysi Pfeiffer ?MR#: ?? [id number] ? : 1970 ?Acct:[id number] ? Age/Sex: 54 / F ?ADM Date: 05/03/24 ? Loc: HO.US ? Attending Dr: Anika Dennis PA-C ? Ordering Physician: Anika Dennis PA-C ?? Date of Service: 05/03/24 ?? Procedure(s): US venous duplex LE BI ?? Accession Number(s): [id number] ? cc: Zev Sanders MD; Anika Dennis [...] DD/ 1318 ? TD/TT: 05/03/24 1345 ? Community Cultural Development Officer: ? Procedure Note Donotuseinterpreter, Image - 20[address] [place] [address] Ultrasound Report Signed Patient: Deysi Pfeiffer DMR#: [id number] : 1970Acct:[id number] Age/Sex: 54 / FADM Date: 05/03/24 Loc: . Attending Dr: Anika Dennis PA-C Ordering Physician: Anika Dennis PA-C Date of Service: 05/03/24 Procedure(s): US venous duplex LE BI Accession Number(s): [id number] cc: Zev Sanders MD; Anika Dennis PA-C [...] Francis Connelly MD 2024 03:35 PM EST RP Dictated By: Francis Brannon MD Signed By: <Electronically signed by Francis Jaeger MDin OV> 05/03/24 1535 DD/ 1318 TD/TT: 05/03/24 1345 Community Cultural Development Officer: [facility] External Provider CV VASC ULAR PROCEDURES Final Result [facility] [address] [place] [phone] * (ABNORMAL) CBC auto differential (04/21/2024 3:22 PM EST) White Blood Count 11.6(H) 4.8 - 10.8 X10*3/uL [facility] Red Blood Count 4.26 4.20 - 5.50 X10*6/uL [facility] Hemoglobin 12.4 12.0 - 16.0 g/dl [facility] Hematocrit 39.4 37.0 - 47.0 % [facility] Mean Corpuscular Volume 92.5 80.0 - 98.0 fL [facility] Mean Corpuscular Hemoglobin 29.1 27.0 - 33.0 pg [facility] Mean Corpuscular HGB Conc 31.5 31.0 - 35.0 g/dl [facility] Red Cell Distribution Width 14.6 11.0 - 16.0 % [facility] Platelet Count 241 160 - 400 X10*3/uL [facility] Mean Platelet Volume 9.2(L) 9.4 - 12.3 fL [facility] Neutrophils Percent Auto 84.3(H) 45 - 73 % [facility] Imm Gran Pct Auto 0.6(H) 0.0 - 0.4 % [facility] Lymphocytes Percent Auto 10.4(L) 20 - 40 % [facility] Monocytes Percent Auto 3.6 2 - 11 % [facility] Eosinophils Percent Auto 0.4 0 - 4 % [facility] Basophils Percent Auto 0.7 0 - 2 % [facility] NRBC Pct Auto 0.0 0.0 - 0.2 /100WBC [facility] Neutrophils Absolute Auto 9.8(H) 2.0 - 8.3 x10*3/uL [facility] Imm Gran Abs Auto 0.07(H) 0.00 - 0.03 X10*3/uL [facility] Lymphocytes Absolute Auto 1.2 1.2 - 4.9 X10*3/uL [facility] Monocytes Absolute Auto 0.4 0.1 - 1.2 X10*3/uL [facility] Eosinophils Absolute Auto 0.1 0.0 - 0.4 X10*3/uL [facility] Basophils Absolute Auto 0.1 0.0 - 0.2 X10*3/uL [facility] NRBC Abs Auto 0.000 0.0 - 0.012 X10*3/uL [facility] 04/21/2024 3:22 PM EST 04/21/2024 3:24 PM EST us Generic External Data Provider LAB BLOOD ORDERAB LES Final Result Performing Organization Address City/State/[facility] Co de Phone Number [facility] [address] [place] [phone] * Prothrombin Time-INR (04/21/2024 3:22 PM EST) Prothrombin Time 10.9 10.9 - 12.4 SEC [facility] INTERNATIONAL NORM RATIO 0.9 0.9 - 1.1 [facility] Comment:INTERNATIONAL NORMAL IZED RATIO (INR) REFERENCE [...] Provider LAB BLOOD ORDERAB LES Final Result [facility] [address] [place] [phone] [phone] * (ABNORMAL) Comprehensive Metabolic Panel (04/21/2024 3:22 PM EST) Sodium 143 135 - 145 mmol/L [facility] Potassium 4.9 3.3 - 5.1 mmol/L [facility] Chloride 103 96 - 108 mmol/L [facility] Carbon Dioxide 33(H) 22 - 29 mmol/L [facility] Anion Gap 12 12 - 20 [facility] Urea Nitrogen (BUN) 11 9 - 16 mg/dL [facility] Creatinine, Serum 0.59 0.5 - 1.4 mg/dL [facility] Creatinine Clr Calc Pharmacy 95.2 [facility] Comment:Provided height and weight: 162.56 cm,56.9 kg.eGFR (calculated from the MDRD study equation) and eCrCl(calculated from the Cockcroft-Gault equation) are based ondifferent parameters and may not yield comparable results.If eCrCl result is absurd, please check patient'sheight/weight. Estimated Glomerular Filt Rate >60 [facility] Comment:Chronic Kidney Disea se: Estimated GFR < 60 mL/min/1.55r0Gdgzpj Kidney Disease: Estimated GFR < 15 mL/min/1.73m2 Glucose 116(H) 60 - 115 mg/dL [facility] Calcium 9.1 8.4 - 10.2 mg/dL [facility] Bilirubin, Total 0.3 0.0 - 1.0 mg/dL [facility] Aspartate Amino Transferase 17 5 - 31 U/L [facility] Alanine Aminotransferase 14 0 - 31 U/L [facility] Total Protein 6.6 6.5 - 8.0 g/dL [facility] Albumin Level 3.9 3.5 - 5.0 g/dL [facility] Alkaline Phosphatase 66 39 - 117 U/L [facility] 04/21/2024 3:22 PM EST 04/21/2024 3:24 PM EST Generic External Data Provider LAB BLOOD ORDERAB LES Final Result Performing Organization Address [facility] Co de Phone Number [facility] [address] [place] [phone] * Lactic Acid (04/06/2024 1:03 PM EST) Lactic Acid 0.7 0.5 - 2.0 mmol/L [facility] 04/06/2024 1:03 PM EST 04/06/2024 1:07 PM EST Generic External Data Provider LAB BLOOD ORDERAB LES Final Result Performing Organization Address [facility] de Phone Number [facility] [address] [place] [phone] * (ABNORMAL) VENOUS BLOOD GAS (04/06/2024 11:05 AM EST) VBG pH 7.43 7.32 - 7.43 [facility] Comment:METER #: [id number] additional_comment: Cb thompson VBG PCO2 52 mmHg [facility] Comment:METER #: [id number] additional_comment: Cb thompson VBG PO2 33 mmHg [facility] Comment:METER #: [id number] additional_comment: Cb thompson VBG Base Excess 9.5 mmol/L [facility] Comment:METER #: [id number] additional_comment: Cb thompson VBG HCO3 35(H) 22 - 26 mmol/L [facility] Comment:METER #: [id number] additional_comment: Cb jay O2 Sat, Lefty 55.0 % [facility] Comment:METER #: [id number] additional_comment: Joshua thompson 04/06/2024 11:0 5 AM EST 04/06/2024 11:13 AM EST us Generic External Data Provider LAB BLOOD ORDERAB LES Final Result [facility] [address] [place] [phone] [phone] * XR Chest 1 View (04/06/2024 10:40 AM EST) Anatomical Region Laterality Modality Chest Radiographic Joy ging 04/06/2024 10:4 0 AM EST Narrative 04/06/2024 11:33 AM EST ? [facility] ?[address] ?[place] [address] ?XRay Report ? Signed ? Patient: Deysi Pfeiffer ?MR#: ?? [id number] ? : 1970 ?Acct:[id number] ? Age/Sex: 53 / F ?ADM Date: 04/06/24 ? Loc: HO.ED ? Attending Dr: ? Ordering Physician: Demetrius Valdivia MD ?? Date of Service: 04/06/24 ?? Procedure(s): XR chest 1V ?? Accession Number(s): [id number] ? cc: Zev Sanders MD; Demetrius Valdivia [...] DD/ 1040 ? TD/TT: 04/06/24 1127 ? Community Cultural Development Officer: ? Procedure Note Donediliater, Image - 04/06/[address] [address] XRay Report Signed Patient: Deysi Pfeiffer DMR#: [id number] : 1970Acct:[id number] Age/Sex: 53 / FADM Date: 04/06/24 Loc: HO.ED Attending Dr: Ordering Physician: Demetrius Valdivia MD Date of Service: 04/06/24 Procedure(s): XR chest 1V Accession Number(s): [id number] cc: Zev Sanders MD; Demetrius Valdivia MD [...] 04/06/24 1131 DD/ 1040 TD/TT: 04/06/24 1127 Community Cultural Development Officer: [facility] External Provider IMG XR PROCEDURES Edited Result - Final * Cologuard?? colon cancer screening (03/10/2023 2:14 PM EST) Cologuard Result Negative Negative 03/21/20 1:56 AM EST [facility] (CLIA #:[id number]) Comment: NEGATIVE TEST RESULT. A negative Cologuard [...] cancer. ??Following a negative Cologuard result, the [place] Cancer Society and U.S. Multi-Society Task Force screening guidelines recommend a Cologuard re-screening interval of 3 years. References: [place] [employer] Guideline for Colorectal Cancer Screening: https://www.cancer.org/cancer/uflke-ydfuqr-utryec/mrdgkfwnr-vheegeesf-ajldeea/ac s-rec ommendations.html.; Edgar DK, Antonio CR, Salma CorderoK, Colorectal Cancer Screening: Recommendations for Physicians and Patients from the U.S. Multi-Society Task Force on Colorectal Cancer Screening , Am J Gastroenterology 2017; 112:9339-1389. TEST DESCRIPTION: Composite algorithmic analysis of stool [...] Luis Robles al, N Engl J Med 2014;370(14):4986-2190.) Cologuard may produce a false negative or false positive result (no colorectal cancer or precancerous polyp present at colonoscopy follow up). A negative Cologuard test result does not guarantee the absence of CRC or advanced adenoma (pre-cancer). The current Cologuard screening interval is every 3 years. ([place] Cancer Society and U.S. Multi-Society Task Force). Cologuard performance data in a 10,000 patient pivotal study using colonoscopy as the reference method can be accessed at the following location: www.[employer].Tal Medical/results. Additional description of the Cologuard test process, warnings and precautions can be found at www.M[employer] Partnerrd.com. Stool specimen (specimen) 03/10/2023 2:14 PM EST 03/12/2023 8:29 PM EST us Zev Sanders MD LAB MOLECULAR DIAGNOSTICS O RDERABLES Final Result [facility] (CLIA #:[id number]) [address] [place] [address], * HPV E6/E7 RFLX VANNESSA 16 18/45 (01/15/2022 10:19 AM EDT) Pathologist [facility] HPV mRNA E6/E7 rflx Not Detected Not Detected [facility] Comment: Methodology: Property Assistant-Mediated Amplification This assay detects E6/E7 viral messenger RNA (mRNA) from 14 high-risk HPV types (16,18,31,33,35,39,45,51,52,56,58,59,66,68). Cervical sources are required for HPV testing. If a vaginal source from a patient who has had a total hysterectomy with removal of cervix was submitted, please contact the testing laboratory for alternative testing options. For additional information, please refer to http://BandApp.Undo Software/faq/CGL355e3 (This link if provided for information/ educational purposes only.) THIS TEST WAS PERFORMED AT: [facility] [address] [place] [address],[address] [place], [place] ??[phone] ESPERANZA CRUZ MD 01/15/2022 10:1 9 AM EDT Mario Alberto Morgan MD HISTORICAL/NON ORDERABLE LABS Fi nal Result [facility]GACY LAB[facility] * Hm Pap Smear (01/15/2022) Historical Provider HEALTH MAINTENANCE Final Result * HEPATITIS C AB W/REFL TO HCV RNA, QN, PCR (11/12/2021 12:09 PM EDT) Pathologist [facility] HEPATITIS C ANTIBODY NON-REACT JOSE MANUEL NON-REACT JOSE MANUEL [facility] INDEX 0.09 <1.00 [facility] Comment: ?? HCV antibody was non-reactive. There is no laboratory ?? evidence of HCV infection. ?? In most cases, no further action is required. However, if recent HCV exposure is suspected, a test for HCV RNA (test code 85294) is suggested. ?? For additional information please refer to http://BandApp.Undo Software/faq/LOK17m5 (This link is being provided for informational/ educational purposes only.) ?? 11/12/2021 12:0 9 PM EDT us Zev Sanders MD HISTORICAL/NON ORDERABLE LA BS Final Result [facility] [address] [place] [address], * (ABNORMAL) LIPID PANEL, STANDARD (11/12/2021 12:09 [...] ?? LDL-C is now calculated using the Hi ?? calculation, which is a validated novel method providing ?? better accuracy than the Friedewald equation in the ?? estimation of LDL-C. ?? Hilario MOON et al. JUANA. 2013;310(19): 1935-1905 ?? (http://education.[employer]opix.Tal Medical/faq/LPY153) Non-HDL Cholesterol 129 <130 mg/dL (calc) [facility] Comment: For patients with diabetes plus 1 major ASCVD risk ?? factor, treating to a non-HDL-C goal of <100 mg/dL ?? (LDL-C of <70 mg/dL) is considered a therapeutic ?? option. Triglycerides 120 <150 mg/dL [facility] 11/12/2021 12:0 9 PM EDT us Zev Sanders MD LAB BLOOD ORDERABLES Final Result [facility] [address] [place] [address], * Mammography Report 1 (10/17/2021 2:30 PM [...] Most Recently Relevant to Health Maintenance Insurance [employer] Care Teams Android Programmer Relationship Specialty Start Date End Date Zev Sanders MD [address] [place] [phone] PCP - General Internal Medicine 11/16/19
--- OUTSIDE RECORDS SUMMARY | 2024-05-11 15:00 | XMS_ITS | Encounter Summary ---
Author Organization [employer] Address [address] [facility] 7 [place] [address] Care Team Providers Care Cuff Setter Name Role Phone Zev Sanders MD Primary Care Provider [phone] Reason for Visit * Reason Onset Date Comments chart prep 05/06/2024 Encounter Details Date Type Department Care Team ([facility] st Contact Info) Description 05/06/2024 Telephone [facility] [address] [place], [place] [phone] Zev Sanders MD [address] [place] [address] chart prep Social History Tobacco Use Types [...] Encounter - Angélica Bautista [place] - 05/06/2024 11:37 AM EST Chart Prep Labs: done Images: done Vaccines due: yes Referrals: none Screenings: mammogram Overdue care gaps: Sbirt, SDOH documented in this encounter Plan of Treatment Upcoming Encounters Date Type Department Care Team (Late st Contact Info) Description 07/01/2024 11:00 AM EDT Nurse Only [facility] [address] [place] [address] documented as of this encounter Visit Diagnoses Not on filedocumented in this encounter Additional Health Concerns Assessment Noted Time PHQ-9 Depression Total Score: 7 10/14/19 24 11:59 AM EDT documented as of this encounter Care Teams Cuff Setter Relationship Specialty Start Date End Date Zev Sanders MD [address] [place] [address] PCP - General Internal Medicine 11/16/19 documented as of this encounter
--- OUTSIDE RECORDS SUMMARY | 2024-05-11 15:00 | XMS_ITS | Encounter Summary ---
Author Organization [employer] Address [address] [facility] 7 [place] [address] Care Team Providers Care Entry Table Operator Name Role Phone Zev Sanders MD Primary Care Provider [phone] Reason for Visit * Reason Comments Transition Of Care (Tcm) HDF- Not in ser vice Encounter Details Date Type Department Care Team ([facility] Contact Info) Description 04/09/2024 Patient Outreach [facility] [address] [place], [place] [phone] Zev Sanders MD [address] [place], [place] [phone] Transition Of Care (Tcm) (HDF- Not in [...] Admission/Visit 04/06/24 Date of Discharge 04/08/24 Facility [facility] Diagnosis Pneumonia , RSV Disposition Discharged [...] Description 07/01/2024 11:00 AM EDT Nurse Only [facility] [address] [place] [address] documented as of this encounter Visit Diagnoses Not on filedocumented in this encounter Additional Health Concerns Assessment Noted Time PHQ-9 Depression Total Score: 7 10/14/19 24 11:59 AM EDT documented as of this encounter Care Teams Entry Table Operator Relationship Specialty Start Date End Date Zev Sanders MD [address] [place] [phone] PCP - General Internal Medicine 11/16/19 documented as of this encounter
--- OUTSIDE RECORDS SUMMARY | 2024-05-11 15:00 | XMS_ITS | Encounter Summary ---
Author Organization [employer] Address [address] [facility] 7 [place] [address] Care Team Providers Care Technical Administrator Name Role Phone Zev Sanders MD Primary Care Provider [phone] Reason for Visit * Reason Comments Transition Of Care (Tcm) HDF scheduled. Encounter Details Date Type Department Care Team ([facility] Contact Info) Description 04/21/2024 Patient Outreach [facility] [address] [place] [address] Zev Sanders MD [address] [place] [address] Transition Of Care (Tcm) (HDF scheduled. ) [...] Admission/Visit 04/04/24 Date of Discharge 04/06/24 Facility [facility] Diagnosis Dyspnea Disposition Discharged Home [...] Wednesdays, and Walk-In Urgent Care Located in [facility] of [facility]. Patient provided with after-hours line for [facility], , which offer night time triage service and option to transfer to vacation planner provider if needed. CC scanned discharge summary into patient's chart. Biggest concern forappointment at this time is no concerns. Appropriate screenings completed in anticipation of appointment. documented in this encounter Plan of Treatment Upcoming Encounters Date Type Department Care Team ([facility] st Contact Info) Description 07/01/2024 11:00 AM EDT Nurse Only [facility] [address] [place] [address] documented as of this encounter Visit Diagnoses Not on filedocumented in this encounter Additional Health Concerns Assessment Noted Time PHQ-9 Depression Total Score: 7 10/14/19 24 11:59 AM EDT documented as of this encounter Care Teams Technical Administrator Relationship Specialty Start Date End Date Zev Sanders MD [address] [place] [address] PCP - General Internal Medicine 11/16/19 documented as of this encounter
--- OUTSIDE RECORDS SUMMARY | 2024-05-11 15:01 | XMS_ITS | Encounter Summary ---
Author Organization [employer] [facility] Address [address] [place] [address] 7 [place] [address] Care Team Providers Care Diamond Sizer Name Role Phone Zev Sanders MD Primary Care Provider [phone] Encounter Details Date Type Department Care Team ([facility] Contact Info) Description 10/22/2022 Orders Only [facility] [address] [place], [place] [phone] Zev Sanders MD [address] [place] [address] Gastroenteritis (Primary Dx) Social History Tobacco Use [...] Upcoming Encounters Date Type Department Care Team ([facility] Contact Info) Description 07/01/2024 11:00 AM EDT Nurse Only [facility] [address] [place] [address] documented as of this encounter Visit Diagnoses Diagnosis Gastroenteritis- Primary Other and unspecified noninfectious gastroenteritis and colitis documented in this encounter Care Teams Diamond Sizer Relationship Specialty Start Date End Date Zev Sanders MD [address] [place] [address] PCP - General Internal Medicine 11/16/19 documented as of this encounter
== END 2024-05-11 14:15 | disposition home or self-care (01) ==
PROVIDERS: PCP Internal Medicine; Visit Provider Physician Assistant Surgical
DX: I83.11 Varicose veins of right lower extremity with inflammation (principal); I83.12 Varicose veins of left lower extremity with inflammation
CPT/HCPCS: 99214

== ENCOUNTER → 2024-05-11 13:59 | Outpatient (BNVA) | payer MEDICAID, SELFPAY | PROVIDERS: PCP Internal Medicine; Visit Provider Physician Assistant Surgical | DX: I83.11 Varicose veins of right lower extremity with inflammation (principal); I83.12 Varicose veins of left lower extremity with inflammation | CPT/HCPCS: 99212 ==

== ENCOUNTER 2024-05-14 11:42 | Emergency (ER) | payer MEDICAID, SELFPAY ==
--- NOTE | ~2024-05-14 | XR_ITS ---
EXAMINATION: XR ANKLE 3 OR MORE VIEWS RIGHT HISTORY: pain COMPARISON: There are no prior studies available for comparison. FINDINGS: Three views of the right ankle are submitted. Osseous mineralization is normal. There is no fracture or dislocation. The joint spaces are preserved. The soft tissues are unremarkable. XR/XR ankle RT min 3V IMPRESSION: Unremarkable examination of the right ankle. Electronically signed by: Rodriguez Damon MD 05/14/2024 12:34 PM JOANN
[2024-05-14 12:00] VITALS: BP 113/68; BP 142/82; PULSE 62; PULSE 82; RESP 16; TEMP 36.7; O2SAT 92; O2SAT 97; BMI 20.9
[2024-05-14 16:42] VITALS: BP 137/79; PULSE 94; RESP 22; O2SAT 98
--- NOTE | 2024-05-14 16:45 | ED_ITS ---
HPI - General Adult General Chief complaint: Extremity Injury, Lower Stated complaint: R ANKLE INJURY PER EMS Time Seen by Provider: 05/14/24 16:44 Source: patient, RN notes reviewed and old records reviewed Mode of arrival: ambulatory Limitations: no limitations History of Present Illness ED Provider: Bette HPI narrative: 54-year-old female with a past medical history significant for COPD on 4 L via nasal cannula at baseline presents for evaluation of right ankle pain. Patient reports that she was standing on her tip toes to fix a current. She states that her right ankle inverted and she felt a pop in the right ankle She has 10/10 pain to the area and is unable to stand on it. Related Data Home Medications ?Medication ?Instructions ?Recorded ?Confirmed mirtazapine 45 mg tablet 45 mg PO BEDTIME 03/27/20 04/06/24 quetiapine 100 mg tablet (Seroquel) 100 mg PO BEDTIME 03/27/20 04/06/24 lisinopril 10 mg tablet 1 tab PO DAILY 09/29/20 04/06/24 pregabalin 150 mg capsule 150 mg PO BID 11/13/20 04/06/24 esomeprazole magnesium 40 mg 40 mg PO DAILY@0630 10/16/21 04/06/24 capsule,delayed release cholecalciferol (vitamin D3) 50 50 mcg PO DAILY 12/19/21 04/06/24 mcg (2,000 unit) tablet prednisone 5 mg tablet 5 mg PO DAILY 04/06/24 04/06/24 tiotropium bromide 2.5 2 puff inhalation DAILY 04/06/24 04/06/24 mcg/actuation mist for inhalation (Spiriva Respimat) Previous Rx's ?Medication ?Instructions ?Recorded ondansetron HCl 4 mg tablet 4 mg PO BID-TID PRN nausea and 12/20/21 vomiting 14 days #4 tabs lidocaine 5 % topical ointment 1 appl topical BID PRN pain #50 03/05/23 grams naloxone 4 mg/actuation nasal 4 mg intranasal Q2M PRN opioid 09/08/23 spray (Narcan) overdose #2 ea albuterol sulfate 2.5 mg/3 mL 2.5 mg (3 mL) inhalation Q4-6H PRN 10/06/23 (0.083 %) solution for nebulization for wheezing #180 mL albuterol sulfate 90 mcg/actuation 2 puff inhalation QID PRN for 02/23/24 aerosol inhaler (Ventolin HFA) wheezing #18 grams budesonide-formoterol HFA 160 2 puff inhalation BID #10.2 grams 03/01/24 mcg-4.5 mcg/actuation aerosol inhaler (Symbicort) ipratropium 0.5 mg-albuterol 3 mg 3 ml inhalation Q6-8H PRN for 03/15/24 (2.5 mg base)/3 mL nebulization wheezing #360 mL soln montelukast 10 mg tablet 10 mg PO BEDTIME #30 tabs 04/02/24 ibuprofen 600 mg tablet 600 mg PO Q8H PRN fever or pain 04/04/24 #20 tabs prednisone 50 mg tablet 50 mg PO DAILY #4 tabs 04/04/24 benzonatate 100 mg capsule 100 mg PO TID PRN Cough #20 caps 04/08/24 levofloxacin 750 mg tablet 750 mg PO DAILY #7 tabs 04/08/24 prednisone 10 mg tablet See Taper PO DIRECTED #30 tabs 04/08/24 oxycodone 5 mg tablet 5 mg PO TID PRN pain 30 days #90 04/16/24 tabs Allergies Allergy/AdvReac Type Severity Reaction Status Date / Time Penicillins [PENICILLINS] Allergy Severe RASH Verified 05/14/24 12:01 seafood Allergy Rash Verified 05/14/24 12:01 Review of Systems Musculoskeletal: Musculoskeletal: Reports arthralgias, Reports joint swelling and Reports limited range of motion PMFSH Past Medical History Medical History Current non-smoker but past smoking history unknown Respiratory failure with hypoxia COPD exacerbation Pre-op examination History of OCD (obsessive compulsive disorder) History of panic attacks Anxiety and depression Radiculopathy, lumbar region HTN (hypertension) Sacroiliitis COPD (chronic obstructive pulmonary disease) Asthma Allergic rhinitis Disc degeneration, lumbar Surgical History History of surgery History of appendectomy Hx of tonsillectomy Status post excision of lipoma History of tubal ligation Hx of excision of mass History of surgery History of laparoscopic cholecystectomy History of esophagogastroduodenoscopy (EGD) History of umbilical hernia repair History of incision and drainage Family History Family History Family/Other Cervical cancer Family/Other Stomach cancer Social History Social History Household Members: Significant Other and Family Household Members Other:: grandson Housing: House Do you presently have visiting nurse or other home services: No Alcohol intake: never Comment: Significant other bedside Patient Tobacco Use Status: Former Tobacco user Tobacco use type: Cigarette Substance Use Type: Marijuana Advance Directives Date on File: 04/06/24 service: No Current occupational status: unemployed Sexual orientation: Straight/Heterosexual Gender identity: Female Physical Exam ED Vital Signs: Vital Signs - 24 hr 05/14/24 12:00 05/14/24 16:42 Temperature 98.0 F Pulse Rate 82 94 Respiratory Rate 16 22 H Blood Pressure 113/68 137/79 Pulse Oximetry 97 98 Oxygen Delivery Method Nasal Cannula Nasal Cannula BMI result Body Mass Index 20.9 Const General: healthy appearing, comfortable, no acute distress, alert and awake Nutritional Appearance: well nourished Orientation/consciousness: patient oriented x3 HENMT Head: Yes normocephalic and Yes atraumatic Eyes Eyelids: Yes eyelids normal Conjunctivae: conjunctivae normal Sclerae: sclerae normal Corneas: corneas normal Pupils: Equal, round and reactive pupils present EOM: EOMs intact bilaterally Neck Neck: Yes full ROM Resp Effort & Inspection: normal respiratory effort, able to speak in complete sentences and not labored Skin General skin exam: elasticity normal Neuro General: patient oriented x3 Cranial nerves: Yes Equal, round and reactive pupils present and Yes Bilaterally intact EOM present Cognition (Neuro): normal cognition Extrem Other: Patient has tenderness to the Achilles area but there is no bogginess. The patient is able to dorsiflex the foot with full range of motion. There was no significant edema to the right ankle, no calf tenderness Medications Administered Discontinued Medications Generic Name Dose Route Start Last Admin Trade Name Freq PRN Reason Stop Dose Admin Albuterol Sulfate 4 puff 05/14/24 16:44 05/14/24 16:53 Albuterol Sulfate 90 Mcg 8 Gm Inhaler INHALE 05/14/24 16:45 4 puff ONCE ONE Administration Medical Decision Making Medical Decision Making MDM Narrative: Patient has a right ankle injury. X-rays are negative for fracture. Clinically the patient has no evidence of Achilles tendon rupture. Plan to discharge the patient with the crutches for an ankle sprain and she will be referred to Orthopedics for follow-up. The patient uses albuterol every 4 hours for her COPD and she was requesting a treatment. She was given albuterol 4 puffs via MDI Differential Diagnosis Differential Diagnoses: The differential diagnosis associated with the presentation includes Ankle sprain Ankle fracture Contusion Achilles tendon rupture Radiology Impression Discussion of test interpretation with radiology: I have reviewed the radiologist's reading. Radiologist Impression: FINDINGS: Three views of the right ankle are submitted. Osseous mineralization is normal. There is no fracture or dislocation. The joint spaces are preserved. The soft tissues are unremarkable. XR/XR ankle RT min 3V IMPRESSION: Unremarkable examination of the right ankle. Electronically signed by: Rodriguez Damon MD 05/14/2024 12:34 PM [facility] [place] Discharge Clinical Impression: Right ankle sprain Patient Disposition: Home, Self-Care Instructions: Ankle Sprain (ED) Additional Instructions: Your x-ray does not show any evidence of fracture. You likely have an ankle sprain You may follow up with Orthopedics at the number provided Prescriptions: No Action lidocaine 5 % ointment 1 appl topical BID PRN (Reason: pain) Qty: 50 1RF albuterol sulfate 2.5 mg /3 mL (0.083 %) solution for nebulization 2.5 mg inhalation Q4-6H PRN (Reason: for wheezing) Qty: 180 2RF albuterol sulfate [Ventolin HFA] 90 mcg/actuation HFA aerosol inhaler 2 puff inhalation QID PRN (Reason: for wheezing) Qty: 18 3RF budesonide-formoterol [Symbicort] 160-4.5 mcg/actuation HFA aerosol inhaler 2 puff inhalation BID Qty: 10.2 3RF ipratropium-albuterol 0.5 mg-3 mg(2.5 mg base)/3 mL solution for nebulization 3 ml inhalation Q6-8H PRN (Reason: for wheezing) Qty: 360 1RF montelukast 10 mg tablet 10 mg PO BEDTIME Qty: 30 3RF lisinopril 10 mg tablet 1 tab PO DAILY pregabalin 150 mg Capsule 150 mg PO BID prednisone 50 mg tablet 50 mg PO DAILY Qty: 4 0RF ibuprofen 600 mg tablet 600 mg PO Q8H PRN (Reason: fever or pain) Qty: 20 0RF prednisone 5 mg tablet 5 mg PO DAILY Spiriva Respimat 2.5 mcg/actuation mist 2 puff inhalation DAILY benzonatate 100 mg Capsule 100 mg PO TID PRN (Reason: Cough) Qty: 20 0RF levofloxacin 750 mg tablet 750 mg PO DAILY Qty: 7 0RF prednisone 10 mg tablet See Taper PO DIRECTED Qty: 30 0RF Taper: Prednisone 40 mg daily for 3 Days and 0 Hour 30 mg daily for 3 Days and 0 Hour 20 mg daily for 3 Days and 0 Hour 10 mg daily for 3 Days and 0 Hour Rx Instructions: see taper instructions quetiapine [Seroquel] 100 mg tablet 100 mg PO BEDTIME mirtazapine 45 mg tablet 45 mg PO BEDTIME ondansetron HCl 4 mg tablet 4 mg PO BID-TID PRN (Reason: nausea and vomiting) 14 Days Qty: 4 0RF esomeprazole magnesium 40 mg capsule,delayed release(DR/EC) 40 mg PO DAILY@0630 cholecalciferol (vitamin D3) 50 mcg (2,000 unit) tablet 50 mcg PO DAILY oxycodone 5 mg tablet 5 mg PO TID PRN (Reason: pain) 30 Days Qty: 90 0RF Rx Instructions: Partial Fill upon patient request. naloxone [Narcan] 4 mg/actuation spray,non-aerosol 4 mg intranasal Q2M PRN (Reason: opioid overdose) Qty: 2 0RF Rx Instructions: spray 1 dose into ONE nostril; alternate nostrils w each dose until help arrives Referrals: Khalif Horn MD [Physician] - (Right ankle sprain) Print Language: Citizen Of [place]
[2024-05-14] MEDS: Albuterol Sulfate 90 MCG 8 GM INHALER 4 PUFF INHALE (16:53)
--- OUTSIDE RECORDS SUMMARY | 2024-05-14 17:30 | XMS_ITS | Encounter Summary ---
Author Organization [employer] Address [address] [facility] 7 [place] [address] Care Team Providers Care Chain Dyer Name Role Phone Zev Sanders MD Primary Care Provider [phone] Reason for Visit * Reason Onset Date Comments Nurse Triage 04/20/2024 Encounter Details Date Type Department Care Team ([facility] Contact Info) Description 04/20/2024 Telephone [facility] [address] [place], [place] [phone] Zev Sanders MD [address] [place] [address] Nurse Triage Social History Tobacco Use Types [...] immediate evaluation. Pt declines to come to [facility] and agrees to go to ED. * Telephone Encounter - Hilaria Chadwick - 04/20/2024 10:33 AM EST Symptom: Leg Swelling - Not From Injury Outcome: Schedule an appointment to be seen within 24 hours Reason: Caller denied all higher acuity questions The caller accepted this outcome. documented in this encounter Plan of Treatment Upcoming Encounters Date Type Department Care Team ([facility] Contact Info) Description 07/01/2024 11:00 AM EDT Nurse Only [facility] [address] [place] [address] 08/10/2024 2:00 PM EDT Office Visit [facility] [address] [place] [address] Zev Sanders MD [address] [place] [address] documented as of this encounter Visit Diagnoses Not on filedocumented in this encounter Additional Health Concerns Assessment Noted Time PHQ-9 Depression Total Score: 7 10/14/19 24 11:59 AM EDT documented as of this encounter Care Teams Chain Dyer Relationship Specialty Start Date End Date Zev Sanders MD [address] [place] [address] PCP - General Internal Medicine 11/16/19 documented as of this encounter
--- OUTSIDE RECORDS SUMMARY | 2024-05-14 17:30 | XMS_ITS | Encounter Summary ---
Author Organization [employer] Address [address] [facility] 7t [place] [address] Care Team Providers Care Well Service Derrick Worker Name Role Phone Zev Sanders MD Primary Care Provider [phone] Encounter Details Date Type Department Care Team ([facility] Contact Info) Description 04/12/2022 Orders Only [facility] [address] [place] [address] Zev Sanders MD [address] [place], [place] [phone] Social History Tobacco Use Types Packs/Day Years [...] Upcoming Encounters Date Type Department Care Team ([facility] Contact Info) Description 07/01/2024 11:00 AM EDT Nurse Only [facility] [address] [place], [place] [phone] 08/10/2024 2:00 PM EDT Office Visit [facility] [address] [place] [address] Zev Sanders MD [address] [place] [address] documented as of this encounter Procedures Procedure [...] (10/21/2022 2:13 PM EDT) Slide Review VERIFIED [facility] 10/21/2022 2:13 PM EDT 10/21/2022 5:23 PM EDT us Zev Sanders MD LAB BLOOD ORDERABLES Final Result [facility] [address] [place] [address] [phone] * (ABNORMAL) VENOUS BLOOD GAS (09/04/2022 1:17 PM EDT) VBG pH 7.37 7.32 - 7.43 [facility] Comment:METER #: [id number] additional_comment: Cb murpe VBG PCO2 57 mmHg [facility] Comment:METER #: [id number] additional_comment: Cb murpe VBG PO2 48 mmHg [facility] Comment:METER #: [id number] additional_comment: Cb murpe VBG Base Excess 6.2 mmol/L [facility] Comment:METER #: [id number] additional_comment: Cb murpe VBG HCO3 33(H) 22 - 26 mmol/L [facility] Comment:METER #: [id number] additional_comment: Cb murpe O2 Sat, Lefty 77.0 % [facility] Comment:METER #: [id number] additional_comment: Cb murpe 09/04/2022 1:17 PM EDT 09/04/2022 1:23 PM EDT [facility] External Provider LAB BLO OD ORDERABLES Final Result Performing Organization Address [facility] de Phone Number [facility] [address] [place] [phone] * D Dimer High Sensitivity (09/04/2022 1:10 PM EDT) D Dimer High Sensitivity <150 NG/ML [facility] Comment:D-DIMER HS REFERENCE RANGENote: Our assay reports D-Dimer Units (D- DU).The cut-off value for venous thromboembolic (VTE) disease is230 ng/mL. This value has a very high negative predictivevalue when the patient has a low to moderate clinicalprobability of VTE.The upper limit of normal is 243 ng/mL. 09/04/2022 1:10 PM EDT 09/04/2022 1:18 PM EDT [facility] External Provider LAB BLO OD ORDERABLES Final Result Performing Organization Address [facility] Co de Phone Number [facility] [address] [place] [phone] * B Type Natriuretic Peptide (BNP) (09/04/2022 11:26 AM EDT) B Type Natriuretic Peptide 19 <100 pg/mL [facility] Comment:For those patients w ho are being treated with Natrecor(nesiritide, recombinant BNP), BNP testing should beperformed at least two hours post treatment in order toensure that only endogenous levels of BNP are detected. 09/04/2022 11:2 6 AM EDT 09/04/2022 1:27 PM EDT us [facility] External Provider LAB BLO OD ORDERABLES Final Result [facility] [address] [place] [phone] * (ABNORMAL) Comprehensive Metabolic Panel (09/04/2022 11:26 AM EDT) Sodium 142 135 - 145 mmol/L [facility] Potassium 4.2 3.3 - 5.1 mmol/L [facility] Chloride 102 96 - 108 mmol/L [facility] Carbon Dioxide 34(H) 22 - 29 mmol/L [facility] Anion Gap 10(L) 12 - 20 [facility] Urea Nitrogen (BUN) 15 9 - 16 mg/dL [facility] Creatinine, Serum 0.68 0.5 - 1.4 mg/dL [facility] Creatinine Clr Calc Pharmacy 74.8 [facility] Comment:Provided height and weight: 162.56 cm,49 kg.eGFR (calculated from the MDRD study equation) and eCrCl(calculated from the Cockcroft-Gault equation) are based ondifferent parameters and may not yield comparable results.If eCrCl result is absurd, please check patient'sheight/weight. Estimated Glomerular Filt Rate >60 [facility] Comment:NOTE: For -Am erican individuals, multiply the result by 1.210.Chronic Kidney Disease: Estimated GFR < 60 mL/min/1.63a4Eiwiyr Kidney Disease: Estimated GFR < 15 mL/min/1.73m2 Glucose 112 60 - 115 mg/dL [facility] Calcium 9.4 8.4 - 10.2 mg/dL [facility] Bilirubin, Total 0.7 0.0 - 1.0 mg/dL [facility] Aspartate Amino Transferase 21 5 - 31 U/L [facility] Alanine Aminotransferase 17 0 - 31 U/L [facility] Total Protein 6.7 6.5 - 8.0 g/dL [facility] Albumin Level 4.1 3.5 - 5.0 g/dL [facility] Alkaline Phosphatase 73 39 - 117 U/L [facility] 09/04/2022 11:2 6 AM EDT 09/04/2022 11:33 AM EDT [facility] External Provider LAB BLO OD ORDERABLES Final Result [facility] [address] [place] [phone] [phone] * COVID-19 ID NOW ([employer]) (09/04/2022 11:26 AM EDT) IDNOW SERIAL# [id number] [facility] COVID-19 TEST Negative Negative [facility] COVID-19 NOTE See Note [facility] Comment: Results are for the identification of SARS-CoV2 RNA. TheSARS-CoV2 RNA is generally detectable in respiratory samplesduring the acute phase of infection. Positive results areindicative of the presence of SARS-CoV-2 RNA; clinicalcorrelation with patient history and other diagnosticinformation is necessary to determine patient infectionstatus. Positive results do not rule out bacterial infectionor co- infection with other viruses.Testing facilities within the [facility] and itsterritories are required to report [...] use by authorized laboratories.Testing performed on the [employer] ID NOW utilizing NAAT. 09/04/2022 11:2 6 AM EDT 09/04/2022 11:33 AM EDT us [facility] Exter nal Provider LAB MOLECULAR DIAGNOSTICS ORDERABLES Final Result [facility] [address] [place] [phone] * (ABNORMAL) CBC auto differential (09/04/2022 11:26 AM EDT) White Blood Count 10.4 4.8 - 10.8 X10*3/uL [facility] Red Blood Count 5.42 4.20 - 5.50 X10*6/uL [facility] Hemoglobin 16.0 12.0 - 16.0 g/dl [facility] Hematocrit 49.3(H) 37.0 - 47.0 % [facility] Mean Corpuscular Volume 91.0 80.0 - 98.0 fL [facility] Mean Corpuscular Hemoglobin 29.5 27.0 - 33.0 pg [facility] Mean Corpuscular HGB Conc 32.5 31.0 - 35.0 g/dl [facility] Red Cell Distribution Width 14.6 11.0 - 16.0 % [facility] Platelet Count 238 160 - 400 X10*3/uL [facility] Mean Platelet Volume 9.5 9.4 - 12.3 fL [facility] Neutrophils Percent Auto 51.2 45 - 73 % [facility] Imm Gran Pct Auto 0.3 0.0 - 0.4 % [facility] Lymphocytes Percent Auto 38.4 20 - 40 % [facility] Monocytes Percent Auto 8.1 2 - 11 % [facility] Eosinophils Percent Auto 1.5 0 - 4 % [facility] Basophils Percent Auto 0.5 0 - 2 % [facility] NRBC Pct Auto 0.0 0.0 - 0.2 /100WBC [facility] Neutrophils Absolute Auto 5.4 2.0 - 8.3 x10*3/uL [facility] Imm Gran Abs Auto 0.03 0.00 - 0.03 X10*3/uL [facility] Lymphocytes Absolute Auto 4.0 1.2 - 4.9 X10*3/uL [facility] Monocytes Absolute Auto 0.8 0.1 - 1.2 X10*3/uL [facility] Eosinophils Absolute Auto 0.2 0.0 - 0.4 X10*3/uL [facility] Basophils Absolute Auto 0.1 0.0 - 0.2 X10*3/uL [facility] NRBC Abs Auto 0.000 0.0 - 0.012 X10*3/uL [facility] 09/04/2022 11:2 6 AM EDT 09/04/2022 11:33 AM EDT [facility] External Provider LAB BLO OD ORDERABLES Final Result Performing Organization Address City/State/[facility] Co de Phone Number [facility] [address] [place] [phone] documented in this encounter Visit Diagnoses Not on filedocumented in this encounter Care Teams Well Service Derrick Worker Relationship Specialty Start Date End Date Zev Sanders MD [address] [place] [phone] PCP - General Internal Medicine 11/16/19 documented as of this encounter
--- OUTSIDE RECORDS SUMMARY | 2024-05-14 17:30 | XMS_ITS | Encounter Summary ---
Author Organization [employer] Address [address] [facility] 7t [place] [address] Care Team Providers Care Tower Switch Operator Name Role Phone Zev Sanders MD Primary Care Provider [phone] Reason for Visit * Reason Comments Med Refill Encounter Details Date Type Department Care Team ([facility] Contact Info) Description 05/04/2024 Refill [facility]S [address] [place], [place] [phone] Zev Sanders MD [address] [place] [address] Chronic low back pain, unspecified back pain [...] Description 07/01/2024 11:00 AM EDT Nurse Only [facility] [address] [place] [address] 08/10/2024 2:00 PM EDT Office Visit [facility] [address] [place] [address] Zev Sanders MD [address] [place] [address] documented as of this encounter Visit Diagnoses Diagnosis Chronic low back pain, unspecified back pain laterality, unspecified whether sciatica present documented in this encounter Additional Health Concerns Assessment Noted Time PHQ-9 Depression Total Score: 7 10/14/19 24 11:59 AM EDT documented as of this encounter Care Teams Tower Switch Operator Relationship Specialty Start Date End Date Zev Sanders MD [address] [place] [address] PCP - General Internal Medicine 11/16/19 documented as of this encounter
--- OUTSIDE RECORDS SUMMARY | 2024-05-14 17:30 | XMS_ITS | Encounter Summary ---
Author Organization [employer] [facility] Address 75 [facility] 7 [place] [address] Care Team Providers Care Spray Painter Name Role Phone Zev Sanders MD Primary Care Provider [phone] Reason for Referral * Imaging (Routine) - Authorized Specialty Diagnoses / Procedures Referred By Contpilar ye Referred To Contact Radiology Diagnoses retirement (current) use of systemic steroids Procedures BONE DENSITY/DEXA (HIPS, PELVIS OR SPINE) Zev Sanders MD [address] [place] [address] Phone: tel: fax: [address] Phone: tel: fax: Referral ID Status Reason Start Date Expiration Date V isits Requested Visits Authorized [id number] Authorized 05/10/2024 05/10/2025 1 1 Reason for Visit * Reason Comments Follow-up HDF Encounter Details Date Type Department Care Team (Late st Contact Info) Description 05/10/2024 1:15 PM EST Office Visit [facility] CHC MED & PEDS [address] [place], [place] [phone] Zev Sanders MD [address] [place] [address] retirement (current) use of systemic steroids (Primary Dx); [...] who presents for Follow-up (HDF). HPI Ms Deysi Izquierdo was evaluated in the emergency department at [facility] on April 04, 2024 for an [...] test was performed last week at her postulant's office. 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 Levalbuterol prescribed given h/o palpitation on albuterol. Advised to follow up w/ her postulant. Orders: - levalbuterol (Xopenex) 0.63 MG/3ML nebulizer solution; Take 1 ampule by nebulization every 8 (eight) hours if needed for wheezing. 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
--- OUTSIDE RECORDS SUMMARY | 2024-05-14 17:30 | XMS_ITS | Encounter Summary ---
Author Organization [employer] Address 75 [facility] 7 [place] [address] Care Team Providers Care Planner Intern Name Role Phone Zev Sanders MD Primary Care Provider [phone] Reason for Visit * Reason Onset Date Comments chart prep 05/06/2024 Encounter Details Date Type Department Care Team ([facility] st Contact Info) Description 05/06/2024 Telephone [facility] CHC MED & PEDS [address] [place], [place] [phone] Zev Sanders MD [address] [place] [address] chart prep Social History Tobacco Use Types [...] Upcoming Encounters Date Type Department Care Team ([facility] st Contact Info) Description 07/01/2024 11:00 AM EDT Nurse Only [facility] MED & PEDS [address] [place] [address] 08/10/2024 2:00 PM EDT Office Visit [facility] MED & PEDS [address] [place] [address] Zev Sanders MD [address] [place] [address] documented as of this encounter Visit Diagnoses Not on filedocumented in this encounter Additional Health Concerns Assessment Noted Time PHQ-9 Depression Total Score: 7 10/14/19 24 11:59 AM EDT documented as of this encounter Care Teams Planner Intern Relationship Specialty Start Date End Date Zev Sanders MD [address] [place] [address] PCP - General Internal Medicine 11/16/19 documented as of this encounter
--- OUTSIDE RECORDS SUMMARY | 2024-05-14 17:30 | XMS_ITS | Encounter Summary ---
Author Organization [employer] Address 75 [facility] 7 [place] [address] Care Team Providers Care Air Transportation Provider Name Role Phone Zev Sanders MD Primary Care Provider [phone] Reason for Visit * Reason Onset Date Comments Results 04/22/2024 Encounter Details Date Type Department Care Team ([facility] Contact Info) Description 04/22/[address] [facility] CHC MED & PEDS [address] [place], [place] [phone] Zev Sanders MD [address] [place] [address] Results Social History Tobacco Use Types Packs/Day [...] Pt stated she completed lab work at [facility] on 04/21/26 and was informed results were faxed to PCP. Pt requesting a call back with lab results. documented in this encounter Plan of Treatment Upcoming Encounters Date Type Department Care Team (Late st Contact Info) Description 07/01/2024 11:00 AM EDT Nurse Only [facility] MED & PEDS [address] [place] [address] 08/10/2024 2:00 PM EDT Office Visit [facility] MED & PEDS [address] [place] [address] Zev Sanders MD [address] [place] [address] documented as of this encounter Visit Diagnoses Not on filedocumented in this encounter Additional Health Concerns Assessment Noted Time PHQ-9 Depression Total Score: 7 10/14/19 24 11:59 AM EDT documented as of this encounter Care Teams Air Transportation Provider Relationship Specialty Start Date End Date Zev Sanders MD [address] [place] [address] PCP - General Internal Medicine 11/16/19 documented as of this encounter
--- OUTSIDE RECORDS SUMMARY | 2024-05-14 17:30 | XMS_ITS | Encounter Summary ---
Author Organization [employer] Address 75 [facility] 7 [place] [address] Care Team Providers Care Computer Teacher Name Role Phone Zev Sanders MD Primary Care Provider [phone] Reason for Visit * Reason Comments Pre-visit Planning SDOH will need to be completed in office. Encounter Details Date Type Department Care Team ([facility] Contact Info) Description 04/21/2024 Patient Outreach [facility] CHC MED & PEDS [address] [place], [place] [phone] Zev Sanders MD [address] [place], [place] [phone] Pre-visit Planning (SDOH will need to be [...] Upcoming Encounters Date Type Department Care Team ([facility] st Contact Info) Description 07/01/2024 11:00 AM EDT Nurse Only [facility] MED & PEDS [address] [place] [address] 08/10/2024 2:00 PM EDT Office Visit [facility] MED & PEDS [address] [place] [address] Zev Sanders MD [address] [place] [address] documented as of this encounter Visit Diagnoses Not on filedocumented in this encounter Additional Health Concerns Assessment Noted Time PHQ-9 Depression Total Score: 7 10/14/19 24 11:59 AM EDT documented as of this encounter Care Teams Computer Teacher Relationship Specialty Start Date End Date Zev Sanders MD [address] [place] [address] PCP - General Internal Medicine 11/16/19 documented as of this encounter
--- OUTSIDE RECORDS SUMMARY | 2024-05-14 17:30 | XMS_ITS | Encounter Summary ---
Author Organization [employer] Address 75 [facility] 7 [place] [address] Care Team Providers Care Quality Engineering Manager Name Role Phone Zev Sanders MD Primary Care Provider [phone] Reason for Visit * Reason Onset Date Comments Appointment Request 2024 Encounter Details Date Type Department Care Team ([facility] st Contact Info) Description 2024 Telephone [facility] [address] [place] [address] Zev Sanders MD [address] [place] [address] Appointment Request Social History Tobacco Use Types [...] Upcoming Encounters Date Type Department Care Team ([facility] st Contact Info) Description 07/01/2024 11:00 AM EDT Nurse Only [facility] MED & PEDS [address] [place] [address] 08/10/2024 2:00 PM EDT Office Visit [facility] MED & PEDS [address] [place] [address] Zev Sanders MD [address] [place] [address] documented as of this encounter Visit Diagnoses Not on filedocumented in this encounter Additional Health Concerns Assessment Noted Time PHQ-9 Depression Total Score: 7 10/14/19 24 11:59 AM EDT documented as of this encounter Care Teams Quality Engineering Manager Relationship Specialty Start Date End Date Zev Sanders MD [address] [place] [address] PCP - General Internal Medicine 11/16/19 documented as of this encounter
--- OUTSIDE RECORDS SUMMARY | 2024-05-14 17:30 | XMS_ITS | Encounter Summary ---
Author Organization [employer] Address [address] [facility] [address] 7t [place] [address] Care Team Providers Care Assessment Services Manager Name Role Phone Zev Sanders MD Primary Care Provider [phone] Encounter Details Date Type Department Care Team ([facility] st Contact Info) Description 2024 Orders Only [facility] External Provider, [facility] Social History Tobacco Use Types Packs/Day Years [...] Upcoming Encounters Date Type Department Care Team ([facility] st Contact Info) Description 07/01/2024 11:00 AM EDT Nurse Only [facility] MED & PEDS [address] [place] [address] 08/10/2024 2:00 PM EDT Office Visit [facility] MED & PEDS [address] [place] [address] Zev Sanders MD [address] [place] [address] documented as of this encounter Procedures Procedure Name Priority Date/Time Associated Diagnosis Comments [facility] LOWER EXTREMITY VENOUS DUPLEX BILATERAL Routine 2024 1:18 PM EST documented in this encounter Results * [facility] Lower Extremity Venous Duplex Bilateral (2024 1:18 PM EST) 2024 1:18 PM EST Narrative [facility] IMAGING - 2024 3:38 PM EST ? [facility] ?[address] ?[place] [address] ? Ultrasound Report ? Signed ? Patient: Delvalle Izquierdo,Deysi D ?MR#: ?? [id number] ? : 1970 ?Acct:[id number] ? Age/Sex: 54 / F ?ADM Date: 02/03/25 ? Loc: HO.US ? Attending Dr: Anika Dennis PA-C ? Ordering Physician: Anika Dennis PA-C ?? Date of Service: 05/03/24 ?? Procedure(s): US venous duplex LE BI ?? Accession Number(s): [id number] ? cc: Zev Sanders MD; Anika Dnenis PA-C ? EXAMINATION: ?? US LOWER EXTREMITY [...] by Francis Jaeegr MD in OV> ? 05/03/24 1535 ? DD/ 1318 ? TD/TT: 05/03/24 1345 ? Project Management Analyst: ? Procedure Note Donediliater, Image - [address] [place] [address] Ultrasound Report Signed Patient: Deysi Pfeiffer DMR#: [id number] : 1970Acct:[id number] Age/Sex: 54 / FADM Date: 05/03/24 Loc: HO.US Attending Dr: Anika Dennis PA-C Ordering Physician: Anika Dennis PA-C Date of Service: 05/03/24 Procedure(s): US venous duplex LE BI Accession Number(s): [id number] cc: Zev Sanders MD; Anika Dennis PA-C [...] by: Francis Connelly MD 2024 03:35 PM [facility] Dictated By: Francis Brannon MD Signed By: <Electronically signed by Francis Jageer MDin OV> 05/03/24 1535 DD/ 1318 TD/TT: 05/03/24 1345 Project Management Analyst: us [facility] External Provider CV VASC ULAR PROCEDURES Final Result [facility] IMAGING [address] [place] [address] documented in this encounter Visit Diagnoses Not on filedocumented in this encounter Additional Health Concerns Assessment Noted Time PHQ-9 Depression Total Score: 7 10/14/19 24 11:59 AM EDT documented as of this encounter Care Teams Assessment Services Manager Relationship Specialty Start Date End Date Zev Sanders MD [address] [place] [address] PCP - General Internal Medicine 11/16/19 documented as of this encounter
--- OUTSIDE RECORDS SUMMARY | 2024-05-14 17:30 | XMS_ITS | Encounter Summary ---
Author Organization [employer] Address 75 [facility] 7t [place] [address] Care Team Providers Care Stamp Collector Name Role Phone Zev Sanders MD Primary Care Provider [phone] Encounter Details Date Type Department Care Team ([facility] Contact Info) Description 04/21/2024 Orders Only [...] 07/01/2024 11:00 AM EDT Nurse Only [facility] MED & PEDS [address] [place] [address] 08/10/2024 2:00 PM EDT Office Visit [facility] MED & PEDS [address] [place] [address] Zev Sanders MD [address] [place] [address] documented as of this encounter Procedures Procedure Name Priority Date/Time Associated Diagnosis Comments [facility] LOWER EXTREMITY VENOUS DUPLEX BILATERAL Routine 04/21/2024 3:56 PM EST CBC WITH AUTO DIFFERENTIAL Routine 04/21/2024 3:22 PM EST PROTHROMBIN TIME-INR Routine 04/21/2024 3:22 PM EST COMPREHENSIVE METABOLIC PANEL Routine 04/21/2024 3:22 PM EST documented in this encounter Results * [facility] Lower Extremity Venous Duplex Bilateral (04/21/2024 3:56 PM EST) 04/21/2024 3:56 PM EST Narrative [facility] - 04/21/2024 4:23 PM EST ? [facility] ?[address] ?[place] [address] ? Ultrasound Report ? Signed ? Patient: Delvalle Izquierdo,Deysi D ?MR#: ?? [id number] ? : 1970 ?Acct:[id number] ? Age/Sex: 53 / F ?ADM Date: 01/22/25 ? Loc: HO.ED ? Attending Dr: ? Ordering Physician: Shila Mueller NP ?? Date of Service: 04/21/24 ?? Procedure(s): US venous duplex LE BI ?? Accession Number(s): [id number] ? cc: Zev Sanders MD; Shila Mueller [...] DD/ 1556 ? TD/TT: 04/21/24 1612 ? Solar Fabrication Technician: ? Procedure Note Travis Griffin - 04/21/[address] [address] Ultrasound Report Signed Patient: Deysi Pfeiffer [facility]#: [id number] : 1970Acct:[id number] Age/Sex: 53 / FADM Date: 04/21/24 Loc: HO.ED Attending Dr: Ordering Physician: Shila Mueller NP Date of Service: 04/21/24 Procedure(s): US venous duplex LE BI Accession Number(s): [id number] cc: Zev Sanders MD; Shila Mueller NP [...] 04/21/24 1620 DD/ 1556 TD/TT: 04/21/24 1612 Solar Fabrication Technician: [facility] External Provider CV VASC ULAR PROCEDURES Final Result [facility] [address] [place] [address] * Prothrombin Time-INR (04/21/2024 3:22 PM EST) Prothrombin Time 10.9 10.9 - 12.4 SEC [facility] INTERNATIONAL NORM RATIO 0.9 0.9 - 1.1 [facility] Comment:INTERNATIONAL NORMAL IZED RATIO (INR) [...] Provider LAB BLOOD ORDERAB LES Final Result [facility] [address] [place] [address] [phone] * (ABNORMAL) Comprehensive Metabolic Panel (04/21/2024 3:22 PM EST) Sodium 143 135 - 145 mmol/L [facility] Potassium 4.9 3.3 - 5.1 mmol/L [facility] Chloride 103 96 - 108 mmol/L [facility] Carbon Dioxide 33(H) 22 - 29 mmol/L [facility] Anion Gap 12 12 - 20 [facility] Urea Nitrogen (BUN) 11 9 - 16 mg/dL [facility] Creatinine, Serum 0.59 0.5 - 1.4 mg/dL [facility] Creatinine Clr Calc Pharmacy 95.2 [facility] Comment:Provided height and weight: 162.56 cm,56.9 kg.eGFR (calculated from the MDRD study equation) and eCrCl(calculated from the Cockcroft-Gault equation) are based ondifferent parameters and may not yield comparable results.If eCrCl result is absurd, please check patient'sheight/weight. Estimated Glomerular Filt Rate >60 [facility] Comment:Chronic Kidney Disea se: Estimated GFR < 60 mL/min/[id number] Kidney Disease: Estimated GFR < 15 mL/min/1.73m2 Glucose 116(H) 60 - 115 mg/dL [facility] Calcium 9.1 8.4 - 10.2 mg/dL [facility] Bilirubin, Total 0.3 0.0 - 1.0 mg/dL [facility] Aspartate Amino Transferase 17 5 - 31 U/L [facility] Alanine Aminotransferase 14 0 - 31 U/L [facility] Total Protein 6.6 6.5 - 8.0 g/dL [facility] Albumin Level 3.9 3.5 - 5.0 g/dL [facility] Alkaline Phosphatase 66 39 - 117 U/L [facility] 04/21/2024 3:22 PM EST 04/21/2024 3:24 PM EST us Generic External Data Provider LAB BLOOD ORDERAB LES Final Result [facility] [address] [place] [address] [phone] * (ABNORMAL) CBC auto differential (04/21/2024 3:22 PM EST) White Blood Count 11.6(H) 4.8 - 10.8 X10*3/uL [facility] Red Blood Count 4.26 4.20 - 5.50 X10*6/uL [facility] Hemoglobin 12.4 12.0 - 16.0 g/dl [facility] Hematocrit 39.4 37.0 - 47.0 % [facility] Mean Corpuscular Volume 92.5 80.0 - 98.0 fL [facility] Mean Corpuscular Hemoglobin 29.1 27.0 - 33.0 pg [facility] Mean Corpuscular HGB Conc 31.5 31.0 - 35.0 g/dl [facility] Red Cell Distribution Width 14.6 11.0 - 16.0 % [facility] Platelet Count 241 160 - 400 X10*3/uL [facility] Mean Platelet Volume 9.2(L) 9.4 - 12.3 fL [facility] Neutrophils Percent Auto 84.3(H) 45 - 73 % [facility] Imm Gran Pct Auto 0.6(H) 0.0 - 0.4 % [facility] Lymphocytes Percent Auto 10.4(L) 20 - 40 % [facility] Monocytes Percent Auto 3.6 2 - 11 % [facility] Eosinophils Percent Auto 0.4 0 - 4 % [facility] Basophils Percent Auto 0.7 0 - 2 % [facility] NRBC Pct Auto 0.0 0.0 - 0.2 /100WBC [facility] Neutrophils Absolute Auto 9.8(H) 2.0 - 8.3 x10*3/uL [facility] Imm Gran Abs Auto 0.07(H) 0.00 - 0.03 X10*3/uL [facility] Lymphocytes Absolute Auto 1.2 1.2 - 4.9 X10*3/uL [facility] Monocytes Absolute Auto 0.4 0.1 - 1.2 X10*3/uL [facility] Eosinophils Absolute Auto 0.1 0.0 - 0.4 X10*3/uL [facility] Basophils Absolute Auto 0.1 0.0 - 0.2 X10*3/uL [facility] NRBC Abs Auto 0.000 0.0 - 0.012 X10*3/uL [facility] 04/21/2024 3:2 2 PM EST 04/21/2024 3:24 PM EST us Generic External Data Provider LAB BLOOD ORDERAB LES Final Result [facility] [address] [place] [address] [phone] documented in this encounter Visit Diagnoses Not on filedocumented in this encounter Additional Health Concerns Assessment Noted Time PHQ-9 Depression Total Score: 7 10/14/19 24 11:59 AM EDT documented as of this encounter Care Teams Stamp Collector Relationship Specialty Start Date End Date Zev Sanders MD [address] [place] [phone] PCP - General Internal Medicine 11/16/19 documented as of this encounter
--- OUTSIDE RECORDS SUMMARY | 2024-05-14 17:30 | XMS_ITS | Encounter Summary ---
Author Organization [employer] Address 75 [facility] 7 [place] [address] Care Team Providers Care Weight Loss Consultant Name Role Phone Zev Sanders MD Primary Care Provider [phone] Reason for Visit * Reason Onset Date Comments chart prep 05/06/2024 Encounter Details Date Type Department Care Team ([facility] st Contact Info) Description 05/06/2024 Telephone [facility] CHC MED & PEDS [address] [place], [place] [phone] Zev Sanders MD [address] [place] [address] chart prep Social History Tobacco Use Types [...] Upcoming Encounters Date Type Department Care Team ([facility] st Contact Info) Description 07/01/2024 11:00 AM EDT Nurse Only [facility] MED & PEDS [address] [place] [address] 08/10/2024 2:00 PM EDT Office Visit [facility] MED & PEDS [address] [place] [address] Zev Sanders MD [address] [place] [address] documented as of this encounter Visit Diagnoses Not on filedocumented in this encounter Additional Health Concerns Assessment Noted Time PHQ-9 Depression Total Score: 7 10/14/19 24 11:59 AM EDT documented as of this encounter Care Teams Weight Loss Consultant Relationship Specialty Start Date End Date Zev Sanders MD [address] [place] [address] PCP - General Internal Medicine 11/16/19 documented as of this encounter
--- OUTSIDE RECORDS SUMMARY | 2024-05-14 17:30 | XMS_ITS | Encounter Summary ---
Author Organization [employer] Address 75 [facility] 7 [place] [address] Care Team Providers Care Phone Engineer Name Role Phone Zev Sanders MD Primary Care Provider [phone] Reason for Visit * Reason Comments Transition Of Care (Tcm) HDF #2 attempt _ unable to lvm Encounter Details Date Type Department Care Team ([facility] st Contact Info) Description 04/14/2024 Patient Outreach [facility] CHC MED & PEDS [address] [place], [place] [phone] Zev Sanders MD [address] [place] [address] Transition Of Care (Tcm) (HDF #2 attempt [...] Admission/Visit 04/06/24 Date of Discharge 04/08/24 Facility [facility] Diagnosis Pnuemonia , RSV Disposition Discharged [...] Upcoming Encounters Date Type Department Care Team ([facility] st Contact Info) Description 07/01/2024 11:00 AM EDT Nurse Only [facility] MED & PEDS [address] [place] [address] 08/10/2024 2:00 PM EDT Office Visit [facility] MED & PEDS [address] [place] [address] Zev Sanders MD [address] [place] [address] documented as of this encounter Visit Diagnoses Not on filedocumented in this encounter Additional Health Concerns Assessment Noted Time PHQ-9 Depression Total Score: 7 10/14/19 24 11:59 AM EDT documented as of this encounter Care Teams Phone Engineer Relationship Specialty Start Date End Date Zev Sanders MD [address] [place] [address] PCP - General Internal Medicine 11/16/19 documented as of this encounter
--- OUTSIDE RECORDS SUMMARY | 2024-05-14 17:30 | XMS_ITS | Clinical Summary ---
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 (Primary Dx); Asthma-chronic obstructive pulmonary disease overlap syndrome (CMS/HCC) 05/10/2024 Travel 05/06/2024 Telephone [facility] [address] [place] [address] Zev Sanders MD chart prep 05/06/2024 Telephone [facility] [address] [place] [address] Zev Sanders MD chart prep 05/04/2024 Refill [facility] [address] [place] [address] Zev Sanders MD Chronic low back pain, unspecified back pain laterality, unspecified whether sciatica present 2024 Orders Only [facility] External Provider, [facility] 2024 Telephone [facility] [address] [place] [address] Zev Sanders MD Appointment Request 05/01/2024 Travel 04/29/2024 Telephone [facility] [address] [place] [address] Zev Sanders MD No Show 04/28/2024 Telephone [facility] [address] [place] [address] Zev Sanders MD CHART PREP 04/22/2024 Telephone [facility] [address] [place] [address] Zev Sanders MD Results 04/21/2024 Orders Only GENERIC EXTERNAL DATA DEPARTMENT Provider, Generic External Data 04/21/2024 Patient Outreach [facility] [address] [place] [address] Zev Sanders MD Transition Of Care (Tcm) (HDF scheduled. ) 04/21/2024 Patient Outreach [facility] [address] [place] [address] Zev Sanders MD Pre-visit Planning (SDOH will need to be completed in office. ) 04/20/2024 Telephone [facility] [address] [place] [address] Zev Sanders MD Nurse Triage 04/14/2024 Patient Outreach [facility] [address] [place] [address] Zev Sanders MD Transition Of Care (Tcm) (HDF #2 attempt _ unable to lvm) 04/09/2024 Patient Outreach [facility] [address] [place] [address] Zev Sanders MD Transition Of Care (Tcm) (HDF- Not in service) 04/06/2024 Orders Only GENERIC EXTERNAL DATA DEPARTMENT Provider, Generic External Data 03/28/2024 Refill [facility] [address] [place] [address] Zev Sanders MD Chronic low back pain, unspecified back pain laterality, unspecified whether sciatica present 03/04/2024 Telephone [facility] [address] [place] [address] Zev Sanders MD [employer] Paperwork ot renew O2 03/01/2024 Refill [facility] [address] [place] [address] Zev Sanders MD Chronic low back pain, [...] Nurse Only [facility] [address] [place] [address] 08/10/2024 2:00 PM EDT Office Visit [facility] [address] [place] [address] Zev Sanders MD [address] [place] [address] Health Maintenance Due Date Last Done Comments CT Colonography 1970 Colonoscopy 1970 FIT 1970 FOBT 1970 HIV Screening 1970 Sigmoidoscopy 1970 Alcohol/Substance Use Screening 1982 Hepatitis A Vaccines (1 of 2 - Risk 2-dose series) 1989 Hepatitis B Vaccines (1 of 3 - 19+ 3-dose series) 1989 SDOH Screening 10/17/2023 10/16/2022 Mammogram 10/18/2023 10/17/2021, 12/04/2017 COVID-19 Vaccine ( season) 2023 Zoster Vaccines (2 of 2) [...] Procedure Name Priority Date/Time Associated Diagnosis Comments [facility] LOWER EXTREMITY VENOUS DUPLEX BILATERAL Routine 2024 1:18 PM EST [facility] LOWER EXTREMITY VENOUS DUPLEX BILATERAL Routine [...] * VASC Lower Extremity Venous Duplex Bilateral (2024 1:18 PM EST) Only the most recent of2 resultswithin the time period is included. 2024 1:18 PM EST Narrative [facility] - 2024 3:38 PM EST ? [facility] ?[address] ?[place] [address] ? Ultrasound Report ? Signed ? Patient: Adelia Izquierdo,Deysi D ?MR#: ?? [id number] ? : 1970 ?Acct:[id number] ? Age/Sex: 54 / F ?ADM Date: 02/03/25 ? Loc: HO.US ? Attending Leia GODOY-C ? Ordering Physician: Anika Dennis PA-C ?? Date of Service: 05/03/24 ?? Procedure(s): US venous duplex LE BI ?? Accession Number(s): [id number] ? cc: Zev Sanders MD; Anika Dennis [...] DD/ 1318 ? TD/TT: 05/03/24 1345 ? Assistant Store Director: ? Procedure Note Donediliater, Image - 2024 [place] [address] Ultrasound Report Signed Patient: Deysi Pfeiffer DMR#: [id number] : 1970Acct:[id number] Age/Sex: 54 / FADM Date: 05/03/24 Loc: HO.US Attending Dr: Anika Dennis PA-C Ordering Physician: Anika Dennis PA-C Date of Service: 05/03/24 Procedure(s): US venous duplex LE BI Accession Number(s): [id number] cc: Zev Sanders MD; Anika Dennis PA-C [...] 05/03/24 1535 DD/ 1318 TD/TT: 05/03/24 1345 Assistant Store Director: us [facility] External Provider CV VASC ULAR PROCEDURES Final Result [facility] [address] [place] [address] * (ABNORMAL) CBC auto differential (04/21/2024 3:22 PM EST) White Blood Count 11.6(H) 4.8 - 10.8 X10*3/uL [facility] Red Blood Count 4.26 4.20 - 5.50 X10*6/uL [facility] Hemoglobin 12.4 12.0 - 16.0 g/dl [facility] Hematocrit 39.4 37.0 - 47.0 % [facility] Mean Corpuscular Volume 92.5 80.0 - 98.0 fL [facility] Mean Corpuscular Hemoglobin 29.1 27.0 - 33.0 pg [facility] Mean Corpuscular HGB Conc 31.5 31.0 - 35.0 g/dl [facility] Red Cell Distribution Width 14.6 11.0 - 16.0 % [facility] Platelet Count 241 160 - 400 X10*3/uL [facility] Mean Platelet Volume 9.2(L) 9.4 - 12.3 fL [facility] Neutrophils Percent Auto 84.3(H) 45 - 73 % [facility] Imm Gran Pct Auto 0.6(H) 0.0 - 0.4 % [facility] Lymphocytes Percent Auto 10.4(L) 20 - 40 % [facility] Monocytes Percent Auto 3.6 2 - 11 % [facility] Eosinophils Percent Auto 0.4 0 - 4 % [facility] Basophils Percent Auto 0.7 0 - 2 % [facility] NRBC Pct Auto 0.0 0.0 - 0.2 /100WBC [facility] Neutrophils Absolute Auto 9.8(H) 2.0 - 8.3 x10*3/uL [facility] Imm Gran Abs Auto 0.07(H) 0.00 - 0.03 X10*3/uL [facility] Lymphocytes Absolute Auto 1.2 1.2 - 4.9 X10*3/uL [facility] Monocytes Absolute Auto 0.4 0.1 - 1.2 X10*3/uL [facility] Eosinophils Absolute Auto 0.1 0.0 - 0.4 X10*3/uL [facility] Basophils Absolute Auto 0.1 0.0 - 0.2 X10*3/uL [facility] NRBC Abs Auto 0.000 0.0 - 0.012 X10*3/uL [facility] 04/21/2024 3:22 PM EST 04/21/2024 3:24 PM EST us Generic External Data Provider LAB BLOOD ORDERAB LES Final Result [facility] [address] [place] [phone] * Prothrombin Time-INR (04/21/2024 3:22 PM EST) Prothrombin Time 10.9 10.9 - 12.4 SEC [facility] INTERNATIONAL NORM RATIO 0.9 0.9 - 1.1 [facility] Comment:INTERNATIONAL NORMAL IZED RATIO (INR) [...] Provider LAB BLOOD ORDERAB LES Final Result [facility] [address] [place] [address] [phone] * (ABNORMAL) Comprehensive Metabolic Panel (04/21/2024 3:22 PM EST) Sodium 143 135 - 145 mmol/L [facility] Potassium 4.9 3.3 - 5.1 mmol/L [facility] Chloride 103 96 - 108 mmol/L [facility] Carbon Dioxide 33(H) 22 - 29 mmol/L [facility] Anion Gap 12 12 - 20 [facility] Urea Nitrogen (BUN) 11 9 - 16 mg/dL [facility] Creatinine, Serum 0.59 0.5 - 1.4 mg/dL [facility] Creatinine Clr Calc Pharmacy 95.2 [facility] Comment:Provided height and weight: 162.56 cm,56.9 kg.eGFR (calculated from the MDRD study equation) and eCrCl(calculated from the Cockcroft-Gault equation) are based ondifferent parameters and may not yield comparable results.If eCrCl result is absurd, please check patient'sheight/weight. Estimated Glomerular Filt Rate >60 [facility] Comment:Chronic Kidney Disea se: Estimated GFR < 60 mL/min/1.44t2Xkmzev Kidney Disease: Estimated GFR < 15 mL/min/1.73m2 Glucose 116(H) 60 - 115 mg/dL [facility] Calcium 9.1 8.4 - 10.2 mg/dL [facility] Bilirubin, Total 0.3 0.0 - 1.0 mg/dL [facility] Aspartate Amino Transferase 17 5 - 31 U/L [facility] Alanine Aminotransferase 14 0 - 31 U/L [facility] Total Protein 6.6 6.5 - 8.0 g/dL [facility] Albumin Level 3.9 3.5 - 5.0 g/dL [facility] Alkaline Phosphatase 66 39 - 117 U/L [facility] 04/21/2024 3:22 PM EST 04/21/2024 3:24 PM EST us Generic External Data Provider LAB BLOOD ORDERAB LES Final Result Performing Organization Address [facility] Phone Number [facility] [address] [place] [phone] * Lactic Acid (04/06/2024 1:03 PM EST) Lactic Acid 0.7 0.5 - 2.0 mmol/L [facility] 04/06/2024 1:03 PM EST 04/06/2024 1:07 PM EST Generic External Data Provider LAB BLOOD ORDERAB LES Final Result Performing Organization Address [facility] de Phone Number [facility] [address] [place] [phone] * (ABNORMAL) VENOUS BLOOD GAS (04/06/2024 11:05 AM EST) VBG pH 7.43 7.32 - 7.43 [facility] Comment:METER #: [id number] additional_comment: Cb thompson VBG PCO2 52 mmHg [facility] Comment:METER #: [id number] additional_comment: Cb thompson VBG PO2 33 mmHg [facility] Comment:METER #: [id number] additional_comment: Joshua thompson VBG Base Excess 9.5 mmol/L [facility] Comment:METER #: [id number] additional_comment: Joshua thompson VBG HCO3 35(H) 22 - 26 mmol/L [facility] Comment:METER #: [id number] additional_comment: Joshua thompson O2 Sat, Lefty 55.0 % [facility] Comment:METER #: [id number] additional_comment: Joshua thompson 04/06/2024 11:0 5 AM EST 04/06/2024 11:13 AM EST us Generic External Data Provider LAB BLOOD ORDERAB LES Final Result Performing Organization Address [facility]/State/ZIP Co de Phone Number [facility] [address] [place] [address] [phone] * XR Chest 1 View (04/06/2024 10:40 AM EST) Anatomical Region Laterality Modality Chest Radiographic Joy ging 04/06/2024 10:4 0 AM EST Narrative 04/06/2024 11:33 AM EST ? [facility] ?[address] ?[place] [address] ?XRay Report ? Signed ? Patient: Adelia IzquierdoDeysi D ?MR#: ?? [id number] ? : 1970 ?Acct:[id number] ? Age/Sex: 53 / F ?ADM Date: 04/06/24 ? Loc: HO.ED ? Attending Dr: ? Ordering Physician: Demetrius Valdivia MD ?? Date of Service: 04/06/24 ?? Procedure(s): XR chest 1V ?? Accession Number(s): [id number] ? cc: Zev Sanders MD; Demetrius Valdivia [...] DD/ 1040 ? TD/TT: 04/06/24 1127 ? Assistant Store Director: ? Procedure Note Donotuseinterpreter, Image - 04/06/[address] [address] XRay Report Signed Patient: Deysi Pfeiffer DMR#: [id number] : 1970Acct:[id number] Age/Sex: 53 / FADM Date: 04/06/24 Loc: HO.ED Attending Dr: Ordering Physician: Demetrius Valdivia MD Date of Service: 04/06/24 Procedure(s): XR chest 1V Accession Number(s): [id number] cc: Zev Sanders MD; Demetrius Valdivia MD [...] 04/06/24 1131 DD/ 1040 TD/TT: 04/06/24 1127 Assistant Store Director: [facility] External Provider IMG XR PROCEDURES Edited Result - Final * Cologuard?? colon cancer screening (03/10/2023 2:14 PM EST) Pathologist [facility] Cologuard Result Negative Negative 03/21/20 1:56 AM EST [facility] (CLIA #:[id number]) Comment: NEGATIVE TEST RESULT. A negative Cologuard [...] cancer. ??Following a negative Cologuard result, the [place] [employer] Society and U.S. Multi-Society Task Force screening guidelines recommend a Cologuard re-screening interval of 3 years. References: [place] [employer] Guideline for Colorectal Cancer Screening: https://www.cancer.org/cancer/bmhay-crtidc-gyuoho/zmhhjhsnf-xhekmeeto-idjntyo/ac s-rec ommendations.html.; Edgar DK, Antonio CR, Salma SAN, Colorectal Cancer Screening: Recommendations for Physicians and Patients from the U.S. Multi-Society Task Force on Colorectal Cancer Screening , Am J Gastroenterology 2017; 112:1947-6334. TEST DESCRIPTION: Composite algorithmic analysis of stool [...] Luis Robles al, N Engl J Med 2014;370(14):9990-0356.) Cologuard may produce a false negative or false positive result (no colorectal cancer or precancerous polyp present at colonoscopy follow up). A negative Cologuard test result does not guarantee the absence of CRC or advanced adenoma (pre-cancer). The current Cologuard screening interval is every 3 years. ([place] Cancer Society and U.S. Multi-Society Task Force). Cologuard performance data in a 10,000 patient pivotal study using colonoscopy as the reference method can be accessed at the following location: www.[facility].com/results. Additional description of the Cologuard test process, warnings and precautions can be found at www.[employer] Technologies[employer].com. Stool specimen (specimen) 03/10/2023 2:14 PM EST 03/12/2023 8:29 PM EST us Zev Sanders MD LAB MOLECULAR DIAGNOSTICS O RDERABLES Final Result Performing Organization Address City/State/[facility] Co de Phone Number [facility] (CLIA #:[id number]) [address] [place] [address], * HPV E6/E7 RFLX VANNESSA 16 18/45 (01/15/2022 10:19 AM EDT) HPV mRNA E6/E7 rflx Not Detected Not Detected [facility] Comment: Methodology: Stage Director-Mediated Amplification This assay detects E6/E7 viral messenger RNA (mRNA) from 14 high-risk HPV types (16,18,31,33,35,39,45,51,52,56,58,59,66,68). Cervical sources are required for HPV testing. If a vaginal source from a patient who has had a total hysterectomy with removal of cervix was submitted, please contact the testing laboratory for alternative testing options. For additional information, please refer to http://education.Lighting by LED/faq/NFQ108h1 (This link if provided for information/ educational purposes only.) THIS TEST WAS PERFORMED AT: [facility] [address] [place] [address],[address] [place], [place] ??[phone] ESPERANZA CRUZ MD 01/15/2022 10:1 9 AM EDT Mario Alberto Morgan MD HISTORICAL/NON ORDERABLE LABS Fi nal Result Performing Organization Address [facility] Co de Phone Number [facility] [...] a test for HCV RNA (test code 78189) is suggested. ?? For additional information please refer to http://CollegePostings.[employer]/faq/PHU23i2 (This link is being provided for informational/ educational purposes only.) ?? 11/12/2021 12:0 9 PM EDT us Zev Sanders MD HISTORICAL/NON ORDERABLE LA BS Final Result Performing Organization Address City/[facility]/ZIP Co de Phone Number [facility] [address] * (ABNORMAL) LIPID PANEL, STANDARD (11/12/2021 [...] ?? Hilario MOON et al. JUANA. 2013;310(19): 7312-5554 ?? (http://CollegePostings.Capsule.fm.Contract Cloud/faq/IVB288) Non-HDL Cholesterol 129 <130 mg/dL (calc) [facility] Comment: For patients with diabetes plus 1 major ASCVD risk ?? factor, treating to a non-HDL-C goal of <100 mg/dL ?? (LDL-C of <70 mg/dL) is considered a therapeutic ?? option. Triglycerides 120 <150 mg/dL [facility] 11/12/2021 12:0 9 PM EDT us Zev Sanders MD LAB BLOOD ORDERABLES Final Result Performing Organization Address City/[facility]/ZIP Co de Phone Number [facility] [address] [place] [address], * Mammography Report 1 (10/17/2021 2:30 PM [...] Most Recently Relevant to Health Maintenance Insurance [employer] C3 Care Teams Claim Professional Relationship Specialty Start Date End Date Zev Sanders MD [address] [place] [phone] PCP - General Internal Medicine 11/16/19
--- OUTSIDE RECORDS SUMMARY | 2024-05-14 17:30 | XMS_ITS | Encounter Summary ---
Author Organization [employer] [facility] Address [address] [place] [address] 7 [place] [address] Care Team Providers Care Sagger Maker Name Role Phone Zev Sanders MD Primary Care Provider [phone] Encounter Details Date Type Department Care Team (Late Contact Info) Description 12/24/2022 Orders Only [facility] [address] [place] [address] ProviderJosh MD Social History Tobacco Use Types [...] Description 07/01/2024 11:00 AM EDT Nurse Only [facility] [address] [place] [address] 08/10/2024 2:00 PM EDT Office Visit [facility] [address] [place] [address] Zev Sanders MD [address] [place] [address] documented as of this encounter Procedures Procedure Name Priority Date/Time Associated Diagnosis Comments HM PAP/HPV Routine 01/15/2022 documented in this encounter Results * Hm Pap Smear (01/15/2022) us Historical Provider HEALTH MAINTENANCE Final Result documented in this encounter Visit Diagnoses Not on filedocumented in this encounter Care Teams Sagger Maker Relationship Specialty Start Date End Date Zev Sanders MD [address] [place] [address] PCP - General Internal Medicine 11/16/19 documented as of this encounter
--- OUTSIDE RECORDS SUMMARY | 2024-05-14 17:30 | XMS_ITS | Encounter Summary ---
Author Organization [employer] Address 75 [facility] 7t [place] [address] Care Team Providers Care Operations Architect Name Role Phone Zev Sanders MD Primary Care Provider [phone] Encounter Details Date Type Department Care Team [...] [facility] [address] [place] [address] 08/10/2024 2:00 PM EDT Office Visit [facility] [address] [place] [address] Zev Sanders MD [address] [place] [address] documented as of this encounter Visit Diagnoses Not on filedocumented in this encounter Additional Health Concerns Assessment Noted Time PHQ-9 Depression Total Score: 7 10/14/19 24 11:59 AM EDT documented as of this encounter Care Teams Operations Architect Relationship Specialty Start Date End Date Zev Sanders MD [address] [place] [address] PCP - General Internal Medicine 11/16/19 documented as of this encounter
--- OUTSIDE RECORDS SUMMARY | 2024-05-14 17:30 | XMS_ITS | Encounter Summary ---
Author Organization [employer] Address 75 [facility] 7 [place] [address] Care Team Providers Care Accounting Software Specialist Name Role Phone Zev Sanders MD Primary Care Provider [phone] Reason for Visit * Reason Comments Transition Of Care (Tcm) HDF scheduled. Encounter Details Date Type Department Care Team ([facility] Contact Info) Description 04/21/2024 Patient Outreach [facility] [address] [place] [address] Zev Sanders MD [address] [place] [address] Transition Of Care (Tcm) (HDF scheduled. ) [...] Admission/Visit 04/04/24 Date of Discharge 04/06/24 Facility [facility] Diagnosis Dyspnea Disposition Discharged Home Follow-Up [...] Wednesdays, and Walk-In Urgent Care Located in [facility]. Patient provided with after-hours line for [facility], , which offer night time triage service and option to transfer to wholesale agronomist provider if needed. CC scanned discharge summary into patient's chart. Biggest concern forappointment at this time is no concerns. Appropriate screenings completed in anticipation of appointment. documented in this encounter Plan of Treatment Upcoming Encounters Date Type Department Care Team (Late st Contact Info) Description 07/01/2024 11:00 AM EDT Nurse Only [facility] [address] [place] [address] 08/10/2024 2:00 PM EDT Office Visit [facility] [address] [place] [address] Zev Sanders MD [address] [place] [address] documented as of this encounter Visit Diagnoses Not on filedocumented in this encounter Additional Health Concerns Assessment Noted Time PHQ-9 Depression Total Score: 7 10/14/19 24 11:59 AM EDT documented as of this encounter Care Teams Accounting Software Specialist Relationship Specialty Start Date End Date Zev Sanders MD [address] [place] [address] PCP - General Internal Medicine 11/16/19 documented as of this encounter
--- OUTSIDE RECORDS SUMMARY | 2024-05-14 17:30 | XMS_ITS | Encounter Summary ---
Author Organization [employer] Address 75 [facility] 7 [place] [address] Care Team Providers Care Ldr Rn Name Role Phone Zev Sanders MD Primary Care Provider [phone] Reason for Visit * Reason Onset Date Comments CHART PREP 04/28/2024 Encounter Details Date Type Department Care Team ([facility] Contact Info) Description 04/28/2024 Telephone [facility] [address] [place], [place] [phone] Zev Sanders MD [address] [place] [address] CHART PREP Social History Tobacco Use Types [...] 11:00 AM EDT Nurse Only [facility] [address] [place] [address] 08/10/2024 2:00 PM EDT Office Visit [facility] [address] [place] [address] Zev Sanders MD [address] [place] [address] documented as of this encounter Visit Diagnoses Not on filedocumented in this encounter Additional Health Concerns Assessment Noted Time PHQ-9 Depression Total Score: 7 10/14/19 24 11:59 AM EDT documented as of this encounter Care Teams Ldr Rn Relationship Specialty Start Date End Date Zev Sanders MD [address] [place] [address] PCP - General Internal Medicine 11/16/19 documented as of this encounter
--- OUTSIDE RECORDS SUMMARY | 2024-05-14 17:31 | XMS_ITS | Encounter Summary ---
Author Organization [employer] Address [address] [facility] 7t [place] [address] Care Team Providers Care Pot Filler Name Role Phone Zev Sanders MD Primary Care Provider [phone] Encounter Details Date Type Department Care Team ([facility] Contact Info) Description 10/22/2022 Orders Only [facility] [address] [place], [place] [phone] Zev Sanders MD [address] [place], [place] [phone] Gastroenteritis (Primary Dx) Social History Tobacco Use [...] Team ([facility] Contact Info) Description 07/01/2024 11:00 AM EDT Nurse Only [facility] [address] [place] [address] 08/10/2024 2:00 PM EDT Office Visit [facility] [address] [place], [place] [phone] Zev Sanders MD [address] [place] [address] documented as of this encounter Visit Diagnoses Diagnosis Gastroenteritis- Primary Other and unspecified noninfectious gastroenteritis and colitis documented in this encounter Care Teams Pot Filler Relationship Specialty Start Date End Date Zev Sanders MD [address] [place] [address] [place] [address] PCP - General Internal Medicine 11/16/19 documented as of this encounter
--- OUTSIDE RECORDS SUMMARY | 2024-05-14 17:31 | XMS_ITS | Encounter Summary ---
Author Organization [employer] Address [address] [facility] 7t [place] [address] Care Team Providers Care Linotyper Name Role Phone Zev Sanders MD Primary Care Provider [phone] Encounter Details Date Type Department Care Team [...] [facility] [address] [place] [address] 08/10/2024 2:00 PM EDT Office Visit [facility] [address] [place] [address] Zev Sanders MD [address] [place] [address] documented as of this encounter Visit Diagnoses Not on filedocumented in this encounter Additional Health Concerns Assessment Noted Time PHQ-9 Depression Total Score: 7 10/14/19 24 11:59 AM EDT documented as of this encounter Care Teams Linotyper Relationship Specialty Start Date End Date Zev Sanders MD [address] [place] [address] PCP - General Internal Medicine 11/16/19 documented as of this encounter
--- OUTSIDE RECORDS SUMMARY | 2024-05-14 17:31 | XMS_ITS | Encounter Summary ---
Author Organization [employer] Address [address] [facility] 7t [place] [address] Care Team Providers Care Digital Measurement Advisor Name Role Phone Zev Sanders MD Primary Care Provider [phone] Encounter Details Date Type Department Care Team ([facility] st Contact Info) Description 07/21/2023 Orders Only [facility] CH[facility] MED & PEDS [address] [place], [place] [phone] Zev Sanders MD [address] [place], [place] [phone] Social History Tobacco Use Types Packs/Day Years [...] Description 07/01/2024 11:00 AM EDT Nurse Only [facility] MED & PEDS [address] [place] [address] 08/10/2024 2:00 PM EDT Office Visit [facility] MED [facility] [address] [place] [address] Zev Sanders MD [address] [place] [address] documented as of this encounter Visit Diagnoses Not on filedocumented in this encounter Care Teams Digital Measurement Advisor Relationship Specialty Start Date End Date Zev Sanders MD [address] [place] [address] PCP - General Internal Medicine 11/16/19 documented as of this encounter
--- OUTSIDE RECORDS SUMMARY | 2024-05-14 17:31 | XMS_ITS | Encounter Summary ---
Author Organization [employer] Address [address] [facility] 7t [place] [address] Care Team Providers Care Bus Cleaner Name Role Phone Zev Sanders MD Primary Care Provider [phone] Reason for Visit * Reason Onset Date Comments Med Refill 07/21/2023 Encounter Details Date Type Department Care Team ([facility] st Contact Info) Description 07/21/[address] [facility] MEDICINE [address] [place] [address] Zev Sanders MD [address] [place] [address] Med Refill Social History Tobacco Use Types [...] 150 MG capsule To be sent to: [facility] - [place], [place] - [address] [place] [address] documented in this encounter Plan of Treatment Upcoming Encounters Date Type Department Care Team ([facility] st Contact Info) Description 07/01/2024 11:00 AM EDT Nurse Only [facility] MED & PEDS [address] [place] [address] 08/10/2024 2:00 PM EDT Office Visit [facility] MED & PEDS [address] [place] [address] Zev Sanders MD [address] [place] [address] documented as of this encounter Visit Diagnoses Not on filedocumented in this encounter Care Teams Bus Cleaner Relationship Specialty Start Date End Date Zev Sanders MD [address] [place] [address] PCP - General Internal Medicine 11/16/19 documented as of this encounter
--- OUTSIDE RECORDS SUMMARY | 2024-05-14 17:31 | XMS_ITS | Encounter Summary ---
Author Organization [employer] Address [address] [facility] 7 [place] [address] Care Team Providers Care Coding File Clerk Name Role Phone Zev Sanders MD Primary Care Provider [phone] Reason for Visit * Reason Onset Date Comments Appointment Request 11/01/2022 Encounter Details Date Type Department Care Team ([facility] st Contact Info) Description 11/01/2022 Telephone [facility] CHC MED & PEDS [address] [place], [place] [phone] Zev Sanders MD [address] [place] [address] Appointment Request Social History Tobacco Use Types [...] PE on 10/24/2022. Please contact pt at [phone] documented in this encounter Plan of Treatment Upcoming Encounters Date Type Department Care Team (Late st Contact Info) Description 07/01/2024 11:00 AM EDT Nurse Only [facility] MED & PEDS [address] [place] [address] 08/10/2024 2:00 PM EDT Office Visit [facility] MED & PEDS [address] [place] [address] Zev Sanders MD [address] [place] [address] documented as of this encounter Visit Diagnoses Not on filedocumented in this encounter Care Teams Coding File Clerk Relationship Specialty Start Date End Date Zev Sanders MD [address] [place] [address] PCP - General Internal Medicine 11/16/19 documented as of this encounter
--- OUTSIDE RECORDS SUMMARY | 2024-05-14 17:31 | XMS_ITS | Encounter Summary ---
Author Organization [facility] Address [address] [place] [address] 7t [place] [address] Care Team Providers Care Motor Racer Name Role Phone Zev Sanders MD Primary Care Provider [phone] Reason for Visit * Reason Comments Med Refill Encounter Details Date Type Department Care Team ([facility] Contact Info) Description 11/05/2022 Refill [facility] MED & PEDS [address] [place] [address] Zev Sanders MD [address] [place] [address] Chronic low back pain, unspecified back pain [...] Upcoming Encounters Date Type Department Care Team ([facility] Contact Info) Description 07/01/2024 11:00 AM EDT Nurse Only [facility] CHC MED & PEDS [address] [place] [address] 08/10/2024 2:00 PM EDT Office Visit [facility] MED & PEDS [address] [place] [address] Zev Sanders MD [address] [place] [address] documented as of this encounter Visit Diagnoses Diagnosis Chronic low back pain, unspecified back pain laterality, unspecified whether sciatica present documented in this encounter Care Teams Motor Racer Relationship Specialty Start Date End Date Zev Sanders MD [address] [place] [address] PCP - General Internal Medicine 11/16/19 documented as of this encounter
[2024-05-14 17:33] VITALS: BP 137/79; PULSE 94; RESP 22; TEMP -17.7; TEMP 0; O2SAT 98
== END 2024-05-14 17:33 | disposition home or self-care (01) ==
PROVIDERS: Emergency Provider Emergency Medicine
DX: S93.401A Sprain of unspecified ligament of right ankle, initial encounter (principal); M25.571 Pain in right ankle and joints of right foot; X50.1XXA Overexertion from prolonged static or awkward postures, initial encounter; Y93.9 Activity, unspecified; Y92.9 Unspecified place or not applicable; Y99.8 Other external cause status; Z79.899 Other long term (current) drug therapy; Z87.891 Personal history of nicotine dependence
CPT/HCPCS: 73610; 99282; 99284

== ENCOUNTER → 2024-05-14 12:25 | Outpatient (BNV) | payer MEDICAID, SELFPAY | PROVIDERS: Visit Provider Radiology Diagnostic Radiology | DX: M25.571 Pain in right ankle and joints of right foot (principal) | CPT/HCPCS: 73610 ==

== ENCOUNTER 2024-05-20 13:05 | Outpatient (AMB) | payer MEDICAID, SELFPAY ==
--- NOTE | 2024-05-20 13:06 | A.OFFVIS_ITS ---
Vital Signs 05/20/24 13:15 Height 5 ft 4 in Weight 122 lb BMI 20.9 BP 133/63 Blood Pressure Location Lt brachial Position Sitting Pulse 95 Pulse Source Pulse Oximeter Pulse Oximetry (%) 96 Oxygen Delivery Method Nasal Cannula Oxygen Flow Rate 4 Intake Visit Reasons: pill count Intake Note: Deysi comes in today for a pill count to oxycodone, patient should have 45 tablets and presents with 50 tablets which she last took today 05/20/24 at 8am. Pain today 10/10 Learning Disabilities Teacher Required: No Accompanied by: Spouse Allergies Penicillins [PENICILLINS] Allergy (Severe, Verified 05/20/24 13:16) RASH seafood Allergy (Verified 05/20/24 13:16) Rash HPI Comments Details: Patient presents today for a pill count. She is supposed to have #45 pills in her possession and presents with #50 pills. This demonstrates a responsible attitude in regards to her opioid regimen. She reports reasonable analgesia on her current regime. Patient also takes pregabalin 150 mg BID, prescribed by her PCP. Pain is rated at 6/10 for lower back and SIJ pain with activities and cold weather and 10/10 right ankle. She sprained her right ankle last Friday while assisting her family with fixing a curtain while standing on her tip toes and her right foot inverted and she felt a pop. She was seen at our ER on 05/14/24 and imaging was normal. She has pending Orthopedic evaluation. Patient denies any fever, chills, weight loss, abdominal or groin pain, constipation, urinary retention, sedation, nausea, vomiting, constipation, sedation, dizziness, or urinary retention. [facility] Medical History Current non-smoker but past smoking history unknown Respiratory failure with hypoxia COPD exacerbation Pre-op examination History of OCD (obsessive compulsive disorder) History of panic attacks Anxiety and depression Radiculopathy, lumbar region HTN (hypertension) Sacroiliitis COPD (chronic obstructive pulmonary disease) Asthma Allergic rhinitis Disc degeneration, lumbar Surgical History History of surgery History of appendectomy Hx of tonsillectomy Status post excision of lipoma History of tubal ligation Hx of excision of mass History of surgery History of laparoscopic cholecystectomy History of esophagogastroduodenoscopy (EGD) History of umbilical hernia repair History of incision and drainage Family History Family/Other Cervical cancer Family/Other Stomach cancer Social History Household Members: Significant Other and Family Household Members Other:: grandson Housing: House Do you presently have visiting nurse or other home services: No Alcohol intake: never Comment: Significant other bedside Patient Tobacco Use Status: Former Tobacco user Tobacco use type: Cigarette Substance Use Type: Marijuana Advance Directives Date on File: 04/06/24 service: No Current occupational status: unemployed Sexual orientation: Straight/Heterosexual Gender identity: Female Review of Systems Const All systems reviewed & are unremarkable except as noted in HPI and below Physical Exam Vital Signs: Last Vital Signs Pulse 95 05/20/24 13:15 BP 133/63 05/20/24 13:15 Pulse Ox 96 05/20/24 13:15 Oxygen Delivery Method Nasal Cannula 05/20/24 13:15 Oxygen Flow Rate 4 05/20/24 13:15 BMI result Body Mass Index 20.9 General: Appears afebrile. No acute distress. Alert and oriented. Mood and affect appropriate. Pleasant. Follows and participates in conversation appropriately. Respiratory effort is unlabored. No cough. O2 at 3L/min continuos. Able to transition from sit to stand unassisted. Ambulates with antalgic gait, mild limping. Resp Effort & Inspection: normal respiratory effort, able to speak in complete sentences, no cough, not labored and no stridor Extrem General: Yes capillary refill normal, Yes no clubbing, cyanosis or edema and Yes no calf tenderness Right lower extremity: ankle (Limited ROM due to pain) Details: tenderness Location: of the lateral malleolus and of the medial malleolus, swelling Details: laterally (mild) and no edema; no unusual warmth, no lacerations and no ecchymosis Psych Appearance: grossly normal and well kempt Mental Status: mental status grossly normal Speech and movement: Normal speech and movement present Affect: normal affect Attitude: cooperative Thought process: Normal thought process present Thought content: Normal thought content present, suicidality (none), no hallucinations and Depressive thoughts present Insight: Good insight present (Psych) Judgement: Good judgement present (Psych) Results Reviewed Results Reviewed: XR ANKLE 3 OR MORE VIEWS RIGHT 05/14/24 HISTORY: pain COMPARISON: There are no prior studies available for comparison. FINDINGS: Three views of the right ankle are submitted. Osseous mineralization is normal. There is no fracture or dislocation. The joint spaces are preserved. The soft tissues are unremarkable. IMPRESSION: Unremarkable examination of the right ankle. Assessment & Plan Assessment & Plan (1) Right ankle sprain: Code(s): S93.401A - Sprain of unspecified ligament of right ankle, initial encounter Category: Medical (2) Opioid contract exists: Code(s): Z79.891 - intermodal dispatcher (current) use of opiate analgesic Category: Medical (3) Cervicalgia: Code(s): M54.2 - Cervicalgia Category: Medical (4) Disc degeneration, lumbar: Code(s): M51.36 - Other intervertebral disc degeneration, lumbar region Category: Medical (5) Spondylosis of lumbar region without myelopathy or radiculopathy: Code(s): M47.816 - Spondylosis without myelopathy or radiculopathy, lumbar region Category: Medical Plan Patient has shown accountability for her medication regimen and the pill count was accurate. Masspat was reviewed and without concerns. No obvious signs of diversion, abuse or misuse of the opioid medications. Patient reports reasonable analgesia on current medication regime. Prescription sent for Oxycodone 5mg po TID prn with an advanced date of 06/03/24. Patient has Narcan script at home. She also takes pregabalin 150 mg BID prescribed by her PCP. Patient reports pending Orthopedic evaluation to be scheduled s/p recent right ankle sprain last week. Will refill Ibuprofen. Continue rest, elevation and ice therapy. Patient to follow-up in the office in one month for pill count and sooner as needed. Medications: Refilled ibuprofen 600 mg PO Q8H PRN 30 tabs 0RF fever or pain S93.401A - Sprain of unspecified ligament of right ankle, initial encounter oxycodone Partial Fill upon patient request. 5 mg PO TID 30 days PRN 90 tabs 0RF pain M46.1 - Sacroiliitis, not elsewhere classified, M47.816 - Spondylosis without myelopathy or radiculopathy, lumbar region, M51.36 - Other intervertebral disc degeneration, lumbar region Coding Level of Care Code Est Pt Level 4 (53657) Complex EM visit Add On G2211 Diagnoses Right ankle sprain S93.401A Opioid contract exists Z79.891 Cervicalgia M54.2 Disc degeneration, lumbar M51.36 Spondylosis of lumbar region without myelopathy or radiculopathy M47.816
[2024-05-20 13:15] VITALS: BP 133/63; PULSE 95; O2SAT 96; BMI 20.9
--- OUTSIDE RECORDS SUMMARY | 2024-05-20 13:59 | XMS_ITS | Encounter Summary ---
Author Organization [employer] Address [address] [facility] 7 [place] [address] Care Team Providers Care Sample Builder Name Role Phone Zev Sanders MD Primary Care Provider [phone] Reason for Visit * Reason Onset Date Comments CHART PREP 04/28/2024 Encounter Details Date Type Department Care Team ([facility] Contact Info) Description 04/28/2024 Telephone [facility] CHC MED & PEDS [address] [place], [place] [phone] Zev Sanders MD [address] [place] [address] CHART PREP Social History Tobacco Use Types [...] Description 07/01/2024 11:00 AM EDT Nurse Only [facility] MED & PEDS [address] [place] [address] 08/10/2024 2:00 PM EDT Office Visit [facility] MED & PEDS [address] [place] [address] Zev Sanders MD [address] [place] [address] documented as of this encounter Visit Diagnoses Not on filedocumented in this encounter Additional Health Concerns Assessment Noted Time PHQ-9 Depression Total Score: 7 10/14/19 24 11:59 AM EDT documented as of this encounter Care Teams Sample Builder Relationship Specialty Start Date End Date Zev Sanders MD [address] [place] [address] PCP - General Internal Medicine 11/16/19 documented as of this encounter
--- OUTSIDE RECORDS SUMMARY | 2024-05-20 13:59 | XMS_ITS | Encounter Summary ---
Author Organization [employer] Address [address] [facility] 7t [place] [address] Care Team Providers Care Meter Installer Name Role Phone Zev Sanders MD Primary Care Provider [phone] Encounter Details Date Type Department Care Team [...] Description 07/01/2024 11:00 AM EDT Nurse Only [facility] MED & PEDS [address] [place] [address] 08/10/2024 2:00 PM EDT Office Visit [facility] MED & PEDS [address] [place] [address] Zev Sanders MD [address] [place] [address] documented as of this encounter Visit Diagnoses Not on filedocumented in this encounter Additional Health Concerns Assessment Noted Time PHQ-9 Depression Total Score: 7 10/14/19 24 11:59 AM EDT documented as of this encounter Care Teams Meter Installer Relationship Specialty Start Date End Date Zev Sanders MD [address] [place] [address] PCP - General Internal Medicine 11/16/19 documented as of this encounter
--- OUTSIDE RECORDS SUMMARY | 2024-05-20 13:59 | XMS_ITS | Encounter Summary ---
Author Organization [employer] Address [address] [facility] 7 [place] [address] Care Team Providers Care Landscape Account Manager Name Role Phone Zev Sanders MD Primary Care Provider [phone] Reason for Visit * Reason Onset Date Comments No Show 04/29/2024 Encounter Details Date Type Department Care Team ([facility] Contact Info) Description 04/29/2024 Telephone [facility] CHC MED & PEDS [address] [place], [place] [phone] Zev Sanders MD [address] [place] [address] No Show Social History Tobacco Use Types [...] Description 07/01/2024 11:00 AM EDT Nurse Only [facility] MED & PEDS [address] [place] [address] 08/10/2024 2:00 PM EDT Office Visit [facility] MED & PEDS [address] [place] [address] Zev Sanders MD [address] [place] [address] documented as of this encounter Visit Diagnoses Not on filedocumented in this encounter Additional Health Concerns Assessment Noted Time PHQ-9 Depression Total Score: 7 10/14/19 24 11:59 AM EDT documented as of this encounter Care Teams Landscape Account Manager Relationship Specialty Start Date End Date Zev Sanders MD [address] [place] [address] PCP - General Internal Medicine 11/16/19 documented as of this encounter
--- OUTSIDE RECORDS SUMMARY | 2024-05-20 13:59 | XMS_ITS | Encounter Summary ---
Author Organization [employer] Address [address] [facility] 7 [place] [address] Care Team Providers Care Nursing Coordinator Name Role Phone Zev Sanders MD Primary Care Provider [phone] Reason for Visit * Reason Onset Date Comments Appointment Request 2024 Encounter Details Date Type Department Care Team ([facility] st Contact Info) Description 2024 Telephone [facility] MEDICINE [address] [place] [address] Zev Sanders MD [address] [place] [address] Appointment Request Social History Tobacco Use Types [...] Description 07/01/2024 11:00 AM EDT Nurse Only [facility] MED & PEDS [address] [place] [address] 08/10/2024 2:00 PM EDT Office Visit [facility] MED & PEDS [address] [place] [address] Zev Sanders MD [address] [place] [address] documented as of this encounter Visit Diagnoses Not on filedocumented in this encounter Additional Health Concerns Assessment Noted Time PHQ-9 Depression Total Score: 7 10/14/19 24 11:59 AM EDT documented as of this encounter Care Teams Nursing Coordinator Relationship Specialty Start Date End Date Zev Sanders MD [address] [place] [address] PCP - General Internal Medicine 11/16/19 documented as of this encounter
--- OUTSIDE RECORDS SUMMARY | 2024-05-20 14:00 | XMS_ITS | Encounter Summary ---
Author Organization [employer] Address [address] [facility] 7t [place] [address] Care Team Providers Care Orthotic Technician Name Role Phone Zev Sanders MD Primary Care Provider [phone] Encounter Details Date Type Department Care Team [...] Description 07/01/2024 11:00 AM EDT Nurse Only [facility] MED & PEDS [address] [place] [address] 08/10/2024 2:00 PM EDT Office Visit [facility] MED & PEDS [address] [place] [address] Zev Sanders MD [address] [place] [address] documented as of this encounter Visit Diagnoses Not on filedocumented in this encounter Additional Health Concerns Assessment Noted Time PHQ-9 Depression Total Score: 7 10/14/19 24 11:59 AM EDT documented as of this encounter Care Teams Orthotic Technician Relationship Specialty Start Date End Date Zev Sanders MD [address] [place] [address] PCP - General Internal Medicine 11/16/19 documented as of this encounter
--- OUTSIDE RECORDS SUMMARY | 2024-05-20 14:00 | XMS_ITS | Encounter Summary ---
Author Organization [employer] Address [address] [facility] 7 [place] [address] Care Team Providers Care Correctional Lieutenant Name Role Phone Zev Sanders MD Primary Care Provider [phone] Reason for Visit * Reason Onset Date Comments Appointment Request 11/01/2022 Encounter Details Date Type Department Care Team ([facility] st Contact Info) Description 11/01/2022 Telephone [facility] CHC MED & PEDS [address] [place], [place] [phone] Zev Sanders MD [address] [place] [address] Appointment Request Social History Tobacco Use Types [...] PE on 10/24/2022. Please contact pt at [phone] documented in this encounter Plan of Treatment Upcoming Encounters Date Type Department Care Team (Late st Contact Info) Description 07/01/2024 11:00 AM EDT Nurse Only [facility] MED & PEDS [address] [place] [address] 08/10/2024 2:00 PM EDT Office Visit [facility] MED & PEDS [address] [place] [address] Zev Sanders MD [address] [place] [address] documented as of this encounter Visit Diagnoses Not on filedocumented in this encounter Care Teams Correctional Lieutenant Relationship Specialty Start Date End Date Zev Sanders MD [address] [place] [address] PCP - General Internal Medicine 11/16/19 documented as of this encounter
--- OUTSIDE RECORDS SUMMARY | 2024-05-20 14:00 | XMS_ITS | Encounter Summary ---
Author Organization [employer] Address [address] [facility] 7t [place] [address] Care Team Providers Care Faith Doctor Name Role Phone Zev Sanders MD Primary Care Provider [phone] Reason for Visit * Reason Comments Med Refill Encounter Details Date Type Department Care Team ([facility] Contact Info) Description 05/04/2024 Refill [facility] CHC MED & PEDS [address] [place], [place] [phone] Zev Sanders MD [address] [place] [address] Chronic low back pain, unspecified back pain [...] 11:00 AM EDT Nurse Only [facility] MED & PEDS [address] [place] [address] 08/10/2024 2:00 PM EDT Office Visit [facility] MED & PEDS [address] [place] [address] Zev Sanders MD [address] [place] [address] documented as of this encounter Visit Diagnoses Diagnosis Chronic low back pain, unspecified back pain laterality, unspecified whether sciatica present documented in this encounter Additional Health Concerns Assessment Noted Time PHQ-9 Depression Total Score: 7 10/14/19 24 11:59 AM EDT documented as of this encounter Care Teams Faith Doctor Relationship Specialty Start Date End Date Zev Sanders MD [address] [place] [address] PCP - General Internal Medicine 11/16/19 documented as of this encounter
--- OUTSIDE RECORDS SUMMARY | 2024-05-20 14:00 | XMS_ITS | Encounter Summary ---
Author Organization [employer] Address 75 [facility] 7t [place] [address] Care Team Providers Care Gunstock Spray Unit Feeder Name Role Phone Zev Sanders MD Primary Care Provider [phone] Encounter Details Date Type Department Care Team ([facility] Contact Info) Description 04/21/2024 Orders Only GENERIC [...] Upcoming Encounters Date Type Department Care Team ([facility] st Contact Info) Description 07/01/2024 11:00 AM EDT Nurse Only [facility] [address] [place] [address] 08/10/2024 2:00 PM EDT Office Visit [facility] [address] [place] [address] Zev Sanders MD [address] [place] [address] documented as of this encounter Procedures Procedure [...] PM EST) 04/21/2024 3:56 PM EST Narrative [facility] - 04/21/2024 4:23 PM EST ? [facility] ?[address] ?[place] [address] ? Ultrasound Report ? Signed ? Patient: Delvalle Izquierdo,Deysi D ?MR#: ?? [id number] ? : 1970 ?Acct:[id number] ? Age/Sex: 53 / F ?ADM Date: 01/22/25 ? Loc: HO.ED ? Attending Dr: ? Ordering Physician: Shila Mueller NP ?? Date of Service: 04/21/24 ?? Procedure(s): US venous duplex LE BI ?? Accession Number(s): [id number] ? cc: Zev Sanders MD; Shila Mueller [...] DD/ 1556 ? TD/TT: 04/21/24 1612 ? Small Order Cutter: ? Procedure Note Travis Griffin - 04/21/[address] [address] Ultrasound Report Signed Patient: Deysi Pfeiffer [facility]#: [id number] : 1970Acct:[id number] Age/Sex: 53 / FADM Date: 04/21/24 Loc: HO.ED Attending Dr: Ordering Physician: Shila Mueller NP Date of Service: 04/21/24 Procedure(s): US venous duplex LE BI Accession Number(s): [id number] cc: Zev Sanders MD; Shila Mueller NP [...] 04/21/24 1620 DD/ 1556 TD/TT: 04/21/24 1612 Small Order Cutter: [facility] External Provider CV VASC ULAR PROCEDURES Final Result [facility] [address] [place] [address] * Prothrombin Time-INR (04/21/2024 3:22 PM EST) Prothrombin Time 10.9 10.9 - 12.4 SEC [facility] INTERNATIONAL NORM RATIO 0.9 0.9 - 1.1 [facility] Comment:INTERNATIONAL NORMAL IZED RATIO [...] Provider LAB BLOOD ORDERAB LES Final Result [facility] [address] [place] [address] [phone] * (ABNORMAL) Comprehensive Metabolic Panel (04/21/2024 3:22 PM EST) Sodium 143 135 - 145 mmol/L [facility] Potassium 4.9 3.3 - 5.1 mmol/L [facility] Chloride 103 96 - 108 mmol/L [facility] Carbon Dioxide 33(H) 22 - 29 mmol/L [facility] Anion Gap 12 12 - 20 [facility] Urea Nitrogen (BUN) 11 9 - 16 mg/dL [facility] Creatinine, Serum 0.59 0.5 - 1.4 mg/dL [facility] Creatinine Clr Calc Pharmacy 95.2 [facility] Comment:Provided height and weight: 162.56 cm,56.9 kg.eGFR (calculated from the MDRD study equation) and eCrCl(calculated from the Cockcroft-Gault equation) are based ondifferent parameters and may not yield comparable results.If eCrCl result is absurd, please check patient'sheight/weight. Estimated Glomerular Filt Rate >60 [facility] Comment:Chronic Kidney Disea se: Estimated GFR < 60 mL/min/1.77i4Eboqul Kidney Disease: Estimated GFR < 15 mL/min/1.73m2 Glucose 116(H) 60 - 115 mg/dL [facility] Calcium 9.1 8.4 - 10.2 mg/dL [facility] Bilirubin, Total 0.3 0.0 - 1.0 mg/dL [facility] Aspartate Amino Transferase 17 5 - 31 U/L [facility] Alanine Aminotransferase 14 0 - 31 U/L [facility] Total Protein 6.6 6.5 - 8.0 g/dL [facility] Albumin Level 3.9 3.5 - 5.0 g/dL [facility] Alkaline Phosphatase 66 39 - 117 U/L [facility] 04/21/2024 3:22 PM EST 04/21/2024 3:24 PM EST us Generic External Data Provider LAB BLOOD ORDERAB LES Final Result [facility] [address] [place] [address] [phone] * (ABNORMAL) CBC auto differential (04/21/2024 3:22 PM EST) White Blood Count 11.6(H) 4.8 - 10.8 X10*3/uL [facility] Red Blood Count 4.26 4.20 - 5.50 X10*6/uL [facility] Hemoglobin 12.4 12.0 - 16.0 g/dl [facility] Hematocrit 39.4 37.0 - 47.0 % [facility] Mean Corpuscular Volume 92.5 80.0 - 98.0 fL [facility] Mean Corpuscular Hemoglobin 29.1 27.0 - 33.0 pg [facility] Mean Corpuscular HGB Conc 31.5 31.0 - 35.0 g/dl [facility] Red Cell Distribution Width 14.6 11.0 - 16.0 % [facility] Platelet Count 241 160 - 400 X10*3/uL [facility] Mean Platelet Volume 9.2(L) 9.4 - 12.3 fL [facility] Neutrophils Percent Auto 84.3(H) 45 - 73 % [facility] Imm Gran Pct Auto 0.6(H) 0.0 - 0.4 % [facility] Lymphocytes Percent Auto 10.4(L) 20 - 40 % [facility] Monocytes Percent Auto 3.6 2 - 11 % [facility] Eosinophils Percent Auto 0.4 0 - 4 % [facility] Basophils Percent Auto 0.7 0 - 2 % [facility] NRBC Pct Auto 0.0 0.0 - 0.2 /100WBC [facility] Neutrophils Absolute Auto 9.8(H) 2.0 - 8.3 x10*3/uL [facility] Imm Gran Abs Auto 0.07(H) 0.00 - 0.03 X10*3/uL [facility] Lymphocytes Absolute Auto 1.2 1.2 - 4.9 X10*3/uL [facility] Monocytes Absolute Auto 0.4 0.1 - 1.2 X10*3/uL [facility] Eosinophils Absolute Auto 0.1 0.0 - 0.4 X10*3/uL [facility] Basophils Absolute Auto 0.1 0.0 - 0.2 X10*3/uL [facility] NRBC Abs Auto 0.000 0.0 - 0.012 X10*3/uL [facility] 04/21/2024 3:2 2 PM EST 04/21/2024 3:24 PM EST us Generic External Data Provider LAB BLOOD ORDERAB LES Final Result [facility] [address] [place] [address] [phone] documented in this encounter Visit Diagnoses Not on filedocumented in this encounter Additional Health Concerns Assessment Noted Time PHQ-9 Depression Total Score: 7 10/14/19 24 11:59 AM EDT documented as of this encounter Care Teams Gunstock Spray Unit Feeder Relationship Specialty Start Date End Date Zev Sanders MD [address] [place] [address] PCP - General Internal Medicine 11/16/19 documented as of this encounter
--- OUTSIDE RECORDS SUMMARY | 2024-05-20 14:00 | XMS_ITS | Encounter Summary ---
Author Organization [facility] Address [address] [place] [address] 7 [place] [address] Care Team Providers Care Topographical Drafter Name Role Phone Zev Sanders MD Primary Care Provider [phone] Encounter Details Date Type Department Care Team (Late Contact Info) Description 12/24/2022 Orders Only [facility] [address] [place] [address] ProviderJosh MD Social History Tobacco Use Types [...] Description 07/01/2024 11:00 AM EDT Nurse Only [facility] [address] [place] [address] 08/10/2024 2:00 PM EDT Office Visit [facility] [address] [place] [address] Zev Sanders MD [address] [place] [address] documented as of this encounter Procedures Procedure Name Priority Date/Time Associated Diagnosis Comments HM PAP/HPV Routine 01/15/2022 documented in this encounter Results * Hm Pap Smear (01/15/2022) us Historical Provider HEALTH MAINTENANCE Final Result documented in this encounter Visit Diagnoses Not on filedocumented in this encounter Care Teams Topographical Drafter Relationship Specialty Start Date End Date Zev Sanders MD [address] [place] [address] PCP - General Internal Medicine 11/16/19 documented as of this encounter
--- OUTSIDE RECORDS SUMMARY | 2024-05-20 14:00 | XMS_ITS | Encounter Summary ---
Author Organization [employer] Address 75 [facility] 7 [place] [address] Care Team Providers Care Die Attacher Name Role Phone Zev Sanders MD Primary Care Provider [phone] Reason for Visit * Reason Onset Date Comments Results 04/22/2024 Encounter Details Date Type Department Care Team ([facility] Contact Info) Description 04/22/2024 Telephone [facility] PEDS [address] [place], [place] [phone] Zev Sanders MD [address] [place] [address] Results Social History Tobacco Use Types Packs/Day [...] Pt stated she completed lab work at [facility] on 04/21/26 and was informed results were faxed to PCP. Pt requesting a call back with lab results. documented in this encounter Plan of Treatment Upcoming Encounters Date Type Department Care Team (Late st Contact Info) Description 07/01/2024 11:00 AM EDT Nurse Only [facility] P[facility] [address] [place] [address] 08/10/2024 2:00 PM EDT Office Visit [facility] [address] [place] [address] Zev Sanders MD [address] [place] [address] documented as of this encounter Visit Diagnoses Not on filedocumented in this encounter Additional Health Concerns Assessment Noted Time PHQ-9 Depression Total Score: 7 10/14/19 24 11:59 AM EDT documented as of this encounter Care Teams Die Attacher Relationship Specialty Start Date End Date Zev Sanders MD [address] [place] [address] PCP - General Internal Medicine 11/16/19 documented as of this encounter
--- OUTSIDE RECORDS SUMMARY | 2024-05-20 14:00 | XMS_ITS | Encounter Summary ---
Author Organization [employer] Address 75 [facility] 7t [place] [address] Care Team Providers Care Combat Systems Engineer Name Role Phone Zev Sanders MD Primary Care Provider [phone] Encounter Details Date Type Department Care Team ([facility] st Contact Info) Description 07/21/2023 Orders Only [facility] MED & PEDS [address] [place], [place] [phone] Zev Sanders MD [address] [place], [place] [phone] Social History Tobacco Use Types Packs/Day Years [...] Description 07/01/2024 11:00 AM EDT Nurse Only [facility] MED [facility] PED[facility] [address] [place] [address] 08/10/2024 2:00 PM EDT Office Visit [facility] P[facility] [address] [place] [address] Zev Sanders MD [address] [place] [address] documented as of this encounter Visit Diagnoses Not on filedocumented in this encounter Care Teams Combat Systems Engineer Relationship Specialty Start Date End Date Zev Sanders MD [address] [place] [address] PCP - General Internal Medicine 11/16/19 documented as of this encounter
--- OUTSIDE RECORDS SUMMARY | 2024-05-20 14:00 | XMS_ITS | Encounter Summary ---
Author Organization [employer] Address [address] [facility] [address] 7t [place] [address] Care Team Providers Care Vocational Rehabilitation Technician Name Role Phone Zev Sanders MD Primary Care Provider [phone] Encounter Details Date Type Department Care Team ([facility] st Contact Info) Description 2024 Orders Only [facility] External Provider, [facility] Social History Tobacco Use Types Packs/Day [...] Upcoming Encounters Date Type Department Care Team ([facility] st Contact Info) Description 07/01/2024 11:00 AM EDT Nurse Only [facility] [address] [place] [address] 08/10/2024 2:00 PM EDT Office Visit [facility] [address] [place] [address] Zev Sanders MD [address] [place] [address] documented as of this encounter Procedures Procedure Name Priority Date/Time Associated Diagnosis Comments [facility] LOWER EXTREMITY VENOUS DUPLEX BILATERAL Routine 2024 1:18 PM EST documented in this encounter Results * [facility] Lower Extremity Venous Duplex Bilateral (2024 1:18 PM EST) 2024 1:18 PM EST Narrative [facility] - 2024 3:38 PM EST ? [facility] ?[address] ?[place] [address] ? Ultrasound Report ? Signed ? Patient: Delvalle Izquierdo,Deysi D ?MR#: ?? [id number] ? : 1970 ?Acct:[id number] ? Age/Sex: 54 / F ?ADM Date: 02/03/25 ? Loc: HO.US ? Attending Dr: Anika Dennis PA-C ? Ordering Physician: Anika Dennis PA-C ?? Date of Service: 05/03/24 ?? Procedure(s): US venous duplex LE BI ?? Accession Number(s): [id number] ? cc: Zev Sanders MD; Anika Dennis [...] DD/ 1318 ? TD/TT: 05/03/24 1345 ? Water Quality Specialist: ? Procedure Note Donediliater, Image - [address] [place] [address] Ultrasound Report Signed Patient: Deysi Pfeiffer DMR#: [id number] : 1970Acct:[id number] Age/Sex: 54 / FADM Date: 05/03/24 Loc: HO.US Attending Dr: Anika Dennis PA-C Ordering Physician: Anika Dennis PA-C Date of Service: 05/03/24 Procedure(s): US venous duplex LE BI Accession Number(s): [id number] cc: Zev Sanders MD; Anika Dennis PA-C [...] by: Francis Connelly MD 2024 03:35 PM [facility] Dictated By: Francis Brannon MD Signed By: <Electronically signed by Francis Jaeger MDin OV> 05/03/24 1535 DD/ 1318 TD/TT: 05/03/24 1345 Water Quality Specialist: us [facility] External Provider CV VASC ULAR PROCEDURES Final Result [facility] [address] [place] [address] documented in this encounter Visit Diagnoses Not on filedocumented in this encounter Additional Health Concerns Assessment Noted Time PHQ-9 Depression Total Score: 7 10/14/19 24 11:59 AM EDT documented as of this encounter Care Teams Vocational Rehabilitation Technician Relationship Specialty Start Date End Date Zev Sanders MD [address] [place] [address] PCP - General Internal Medicine 11/16/19 documented as of this encounter
--- OUTSIDE RECORDS SUMMARY | 2024-05-20 14:00 | XMS_ITS | Encounter Summary ---
Author Organization [employer] Address 75 [facility] 7 [place] [address] Care Team Providers Care Costume Maker Name Role Phone Zev Sanders MD Primary Care Provider [phone] Reason for Visit * Reason Comments Pre-visit Planning SDOH will need to be completed in office. Encounter Details Date Type Department Care Team ([facility] Contact Info) Description 04/21/2024 Patient Outreach [facility] & PEDS [address] [place], [place] [phone] Zev Sanders MD [address] [place], [place] [phone] Pre-visit Planning (SDOH will need to be [...] Upcoming Encounters Date Type Department Care Team ([facility] st Contact Info) Description 07/01/2024 11:00 AM EDT Nurse Only [facility] [address] [place] [address] 08/10/2024 2:00 PM EDT Office Visit [facility] [address] [place] [address] Zev Sanders MD [address] [place] [address] documented as of this encounter Visit Diagnoses Not on filedocumented in this encounter Additional Health Concerns Assessment Noted Time PHQ-9 Depression Total Score: 7 10/14/19 24 11:59 AM EDT documented as of this encounter Care Teams Costume Maker Relationship Specialty Start Date End Date Zev Sanders MD [address] [place] [address] PCP - General Internal Medicine 11/16/19 documented as of this encounter
--- OUTSIDE RECORDS SUMMARY | 2024-05-20 14:00 | XMS_ITS | Encounter Summary ---
Author Organization [employer] Address 75 [facility] 7 [place] [address] Care Team Providers Care Lease Picker Name Role Phone Zev Sanders MD Primary Care Provider [phone] Reason for Visit * Reason Onset Date Comments chart prep 05/06/2024 Encounter Details Date Type Department Care Team ([facility] st Contact Info) Description 05/06/2024 Telephone [facility] MED & PEDS [address] [place], [place] [phone] Zev Sanders MD [address] [place] [address] chart prep Social History Tobacco Use Types [...] Upcoming Encounters Date Type Department Care Team ([facility] st Contact Info) Description 07/01/2024 11:00 AM EDT Nurse Only [facility] [address] [place] [address] 08/10/2024 2:00 PM EDT Office Visit [facility] [address] [place] [address] Zev Sanders MD [address] [place] [address] documented as of this encounter Visit Diagnoses Not on filedocumented in this encounter Additional Health Concerns Assessment Noted Time PHQ-9 Depression Total Score: 7 10/14/19 24 11:59 AM EDT documented as of this encounter Care Teams Lease Picker Relationship Specialty Start Date End Date Zev aSnders MD [address] [place] [address] PCP - General Internal Medicine 11/16/19 documented as of this encounter
--- OUTSIDE RECORDS SUMMARY | 2024-05-20 14:00 | XMS_ITS | Encounter Summary ---
Author Organization [employer] Address [address] [place] [address] 7t [place] [address] Care Team Providers Care Instrument Inspector Name Role Phone Zev Sanders MD Primary Care Provider [phone] Encounter Details Date Type Department Care Team ([facility] Contact Info) Description 10/22/2022 Orders Only [facility] [address] [place], [place] [phone] Zev Sanders MD [address] [place], [place] [phone] Gastroenteritis (Primary Dx) Social History Tobacco Use [...] Upcoming Encounters Date Type Department Care Team ([facility] Contact Info) Description 07/01/2024 11:00 AM EDT Nurse Only [facility] MED & PEDS [address] [place] [address] 08/10/2024 2:00 PM EDT Office Visit [facility] [address] [place], [place] [phone] Zev Sanders MD [address] [place] [address] documented as of this encounter Visit Diagnoses Diagnosis Gastroenteritis- Primary Other and unspecified noninfectious gastroenteritis and colitis documented in this encounter Care Teams Instrument Inspector Relationship Specialty Start Date End Date Zev Sanders MD [address] [place] [address] MARIE Thompson [address] PCP - General Internal Medicine 11/16/19 documented as of this encounter
--- OUTSIDE RECORDS SUMMARY | 2024-05-20 14:00 | XMS_ITS | Clinical Summary ---
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 (Primary Dx); Asthma-chronic obstructive pulmonary disease overlap syndrome (CMS/HCC) 05/10/2024 Travel 05/06/2024 Telephone [facility] [address] [place] [address] Zev Sanders MD chart prep 05/06/2024 Telephone [facility] [address] [place] [address] Zev Sanders MD chart prep 05/04/2024 Refill [facility] [address] [place] [address] Zev Sanders MD Chronic low back pain, unspecified back pain laterality, unspecified whether sciatica present 2024 Orders Only [facility] External Provider, [facility] 2024 Telephone [facility] [address] [place] [address] Zev Sanders MD Appointment Request 05/01/2024 Travel 04/29/2024 Telephone [facility] [address] [place] [address] Zev Sanders MD No Show 04/28/2024 Telephone [facility] [address] [place] [address] Zev Sanders MD CHART PREP 04/22/2024 Telephone [facility] [address] [place] [address] Zev Sanders MD Results 04/21/2024 Orders Only GENERIC EXTERNAL DATA DEPARTMENT Provider, Generic External Data 04/21/2024 Patient Outreach [facility] [address] [place] [address] Zev Sanders MD Transition Of Care (Tcm) (HDF scheduled. ) 04/21/2024 Patient Outreach [facility] [address] [place] [address] Zev Sanders MD Pre-visit Planning (SDOH will need to be completed in office. ) 04/20/2024 Telephone [facility] [address] [place] [address] Zev Sanders MD Nurse Triage 04/14/2024 Patient Outreach [facility] [address] [place] [address] Zev Sanders MD Transition Of Care (Tcm) (HDF #2 attempt _ unable to lvm) 04/09/2024 Patient Outreach [facility] [address] [place] [address] Zev Sanders MD Transition Of Care (Tcm) (HDF- Not in service) 04/06/2024 Orders Only GENERIC EXTERNAL DATA DEPARTMENT Provider, Generic External Data 03/28/2024 Refill [facility] [address] [place] [address] Zev Sanders MD Chronic low back pain, unspecified back pain laterality, unspecified whether sciatica present 03/04/2024 Telephone [facility] [address] [place] [address] Zev Sanders MD [employer] Paperwork ot renew O2 03/01/2024 Refill [facility] [address] [place] [address] Zev Sanders MD Chronic low back pain, [...] AM EDT Nurse Only [facility] [address] [place] [address] 08/10/2024 2:00 PM EDT Office Visit [facility] [address] [place] [address] Zev Sanders MD [address] [place] [address] Health Maintenance Due Date Last Done Comments [...] Procedure Name Priority Date/Time Associated Diagnosis Comments [facility] LOWER EXTREMITY VENOUS DUPLEX BILATERAL Routine 2024 1:18 PM EST [facility] LOWER EXTREMITY VENOUS DUPLEX BILATERAL Routine 04/21/2024 [...] is included. 2024 1:18 PM EST Narrative [facility] - 2024 3:38 PM EST ? [facility] ?[address] ?[place] [address] ? Ultrasound Report ? Signed ? Patient: Adelia Izquierdo,Deysi D ?MR#: ?? [id number] ? : 1970 ?Acct:[id number] ? Age/Sex: 54 / F ?ADM Date: 02/03/25 ? Loc: HO.US ? Attending Leia GODOY-C ? Ordering Physician: Anika Dennis PA-C ?? Date of Service: 05/03/24 ?? Procedure(s): US venous duplex LE BI ?? Accession Number(s): [id number] ? cc: Zev Sanders MD; Anika Dennis [...] DD/ 1318 ? TD/TT: 05/03/24 1345 ? Senior Grants Officer: ? Procedure Note Donediliater, Image - 2024 [place] [address] Ultrasound Report Signed Patient: Deysi Pfeiffer DMR#: [id number] : 1970Acct:[id number] Age/Sex: 54 / FADM Date: 05/03/24 Loc: HO.US Attending Dr: Anika Dennis PA-C Ordering Physician: Anika Dennis PA-C Date of Service: 05/03/24 Procedure(s): US venous duplex LE BI Accession Number(s): [id number] cc: Zev Sanders MD; Anika Dennis PA-C [...] 05/03/24 1535 DD/ 1318 TD/TT: 05/03/24 1345 Senior Grants Officer: us [facility] External Provider CV VASC ULAR PROCEDURES Final Result [facility] [address] [place] [address] * (ABNORMAL) CBC auto differential (04/21/2024 3:22 PM EST) White Blood Count 11.6(H) 4.8 - 10.8 X10*3/uL [facility] Red Blood Count 4.26 4.20 - 5.50 X10*6/uL [facility] Hemoglobin 12.4 12.0 - 16.0 g/dl [facility] Hematocrit 39.4 37.0 - 47.0 % [facility] Mean Corpuscular Volume 92.5 80.0 - 98.0 fL [facility] Mean Corpuscular Hemoglobin 29.1 27.0 - 33.0 pg [facility] Mean Corpuscular HGB Conc 31.5 31.0 - 35.0 g/dl [facility] Red Cell Distribution Width 14.6 11.0 - 16.0 % [facility] Platelet Count 241 160 - 400 X10*3/uL [facility] Mean Platelet Volume 9.2(L) 9.4 - 12.3 fL [facility] Neutrophils Percent Auto 84.3(H) 45 - 73 % [facility] Imm Gran Pct Auto 0.6(H) 0.0 - 0.4 % [facility] Lymphocytes Percent Auto 10.4(L) 20 - 40 % [facility] Monocytes Percent Auto 3.6 2 - 11 % [facility] Eosinophils Percent Auto 0.4 0 - 4 % [facility] Basophils Percent Auto 0.7 0 - 2 % [facility] NRBC Pct Auto 0.0 0.0 - 0.2 /100WBC [facility] Neutrophils Absolute Auto 9.8(H) 2.0 - 8.3 x10*3/uL [facility] Imm Gran Abs Auto 0.07(H) 0.00 - 0.03 X10*3/uL [facility] Lymphocytes Absolute Auto 1.2 1.2 - 4.9 X10*3/uL [facility] Monocytes Absolute Auto 0.4 0.1 - 1.2 X10*3/uL [facility] Eosinophils Absolute Auto 0.1 0.0 - 0.4 X10*3/uL [facility] Basophils Absolute Auto 0.1 0.0 - 0.2 X10*3/uL [facility] NRBC Abs Auto 0.000 0.0 - 0.012 X10*3/uL [facility] 04/21/2024 3:22 PM EST 04/21/2024 3:24 PM EST us Generic External Data Provider LAB BLOOD ORDERAB LES Final Result [facility] [address] [place] [phone] * Prothrombin Time-INR (04/21/2024 3:22 PM EST) Prothrombin Time 10.9 10.9 - 12.4 SEC [facility] INTERNATIONAL NORM RATIO 0.9 0.9 - 1.1 [facility] Comment:INTERNATIONAL NORMAL IZED RATIO (INR) [...] Provider LAB BLOOD ORDERAB LES Final Result [facility] [address] [place] [address] [phone] * (ABNORMAL) Comprehensive Metabolic Panel (04/21/2024 3:22 PM EST) Sodium 143 135 - 145 mmol/L [facility] Potassium 4.9 3.3 - 5.1 mmol/L [facility] Chloride 103 96 - 108 mmol/L [facility] Carbon Dioxide 33(H) 22 - 29 mmol/L [facility] Anion Gap 12 12 - 20 [facility] Urea Nitrogen (BUN) 11 9 - 16 mg/dL [facility] Creatinine, Serum 0.59 0.5 - 1.4 mg/dL [facility] Creatinine Clr Calc Pharmacy 95.2 [facility] Comment:Provided height and weight: 162.56 cm,56.9 kg.eGFR (calculated from the MDRD study equation) and eCrCl(calculated from the Cockcroft-Gault equation) are based ondifferent parameters and may not yield comparable results.If eCrCl result is absurd, please check patient'sheight/weight. Estimated Glomerular Filt Rate >60 [facility] Comment:Chronic Kidney Disea se: Estimated GFR < 60 mL/min/1.46x0Pkovov Kidney Disease: Estimated GFR < 15 mL/min/1.73m2 Glucose 116(H) 60 - 115 mg/dL [facility] Calcium 9.1 8.4 - 10.2 mg/dL [facility] Bilirubin, Total 0.3 0.0 - 1.0 mg/dL [facility] Aspartate Amino Transferase 17 5 - 31 U/L [facility] Alanine Aminotransferase 14 0 - 31 U/L [facility] Total Protein 6.6 6.5 - 8.0 g/dL [facility] Albumin Level 3.9 3.5 - 5.0 g/dL [facility] Alkaline Phosphatase 66 39 - 117 U/L [facility] 04/21/2024 3:22 PM EST 04/21/2024 3:24 PM EST us Generic External Data Provider LAB BLOOD ORDERAB LES Final Result Performing Organization Address [facility] Phone Number [facility] [address] [place] [phone] * Lactic Acid (04/06/2024 1:03 PM EST) Lactic Acid 0.7 0.5 - 2.0 mmol/L [facility] 04/06/2024 1:03 PM EST 04/06/2024 1:07 PM EST Generic External Data Provider LAB BLOOD ORDERAB LES Final Result Performing Organization Address [facility] de Phone Number [facility] [address] [place] [phone] * (ABNORMAL) VENOUS BLOOD GAS (04/06/2024 11:05 AM EST) VBG pH 7.43 7.32 - 7.43 [facility] Comment:METER #: [id number] additional_comment: Cb thompson VBG PCO2 52 mmHg [facility] Comment:METER #: [id number] additional_comment: Cb thompson VBG PO2 33 mmHg [facility] Comment:METER #: [id number] additional_comment: Joshua thompson VBG Base Excess 9.5 mmol/L [facility] Comment:METER #: [id number] additional_comment: Joshua thompson VBG HCO3 35(H) 22 - 26 mmol/L [facility] Comment:METER #: [id number] additional_comment: Joshua thompson O2 Sat, Lefty 55.0 % [facility] Comment:METER #: [id number] additional_comment: Joshua thompson 04/06/2024 11:0 5 AM EST 04/06/2024 11:13 AM EST us Generic External Data Provider LAB BLOOD ORDERAB LES Final Result Performing Organization Address [facility]/State/ZIP Co de Phone Number [facility] [address] [place] [address] [phone] * XR Chest 1 View (04/06/2024 10:40 AM EST) Anatomical Region Laterality Modality Chest Radiographic Joy ging 04/06/2024 10:4 0 AM EST Narrative 04/06/2024 11:33 AM EST ? [facility] ?[address] ?[place] [address] ?XRay Report ? Signed ? Patient: Adelia IzquierdoDeysi D ?MR#: ?? [id number] ? : 1970 ?Acct:[id number] ? Age/Sex: 53 / F ?ADM Date: 04/06/24 ? Loc: HO.ED ? Attending Dr: ? Ordering Physician: Demetrius Valdivia MD ?? Date of Service: 04/06/24 ?? Procedure(s): XR chest 1V ?? Accession Number(s): [id number] ? cc: Zev Sanders MD; Demetrius Valdivia [...] DD/ 1040 ? TD/TT: 04/06/24 1127 ? Senior Grants Officer: ? Procedure Note Donotuseinterpreter, Image - 04/06/[address] [address] XRay Report Signed Patient: Deysi Pfeiffer DMR#: [id number] : 1970Acct:[id number] Age/Sex: 53 / FADM Date: 04/06/24 Loc: HO.ED Attending Dr: Ordering Physician: Demetrius Valdivia MD Date of Service: 04/06/24 Procedure(s): XR chest 1V Accession Number(s): [id number] cc: Zev Sanders MD; Demetrius Valdivia MD [...] 04/06/24 1131 DD/ 1040 TD/TT: 04/06/24 1127 Senior Grants Officer: [facility] External Provider IMG XR PROCEDURES Edited Result - Final * Cologuard?? colon cancer screening (03/10/2023 2:14 PM EST) Pathologist [facility] Cologuard Result Negative Negative 03/21/20 1:56 AM EST [employer] (CLIA #:[id number]) Comment: NEGATIVE TEST RESULT. A negative Cologuard [...] Cancer Society Guideline for Colorectal Cancer Screening: https://www.cancer.org/cancer/jzsws-syelws-waayle/jerslfduh-cqvezcckn-ktjkpps/ac s-rec ommendations.html.; Edgar DK, Antonio CR, Salma SAN, Colorectal Cancer Screening: Recommendations for Physicians and Patients from the U.S. Multi-Society Task Force on Colorectal Cancer Screening , Am J Gastroenterology 2017; 112:8830-1422. TEST DESCRIPTION: Composite algorithmic analysis of stool [...] Luis Robles al, N Engl J Med 2014;370(14):4320-0397.) Cologuard may produce a false negative or [...] can be accessed at the following location: www.rVita.com/results. Additional description of the Cologuard test process, warnings and precautions can be found at www.[employer].rd.com. Stool specimen (specimen) 03/10/2023 2:14 PM EST 03/12/2023 8:29 PM EST us Zev Sanders MD LAB MOLECULAR DIAGNOSTICS O RDERABLES Final Result Performing Organization Address City/State/[facility] Co de Phone Number [employer] (CLIA #:[id number]) [address] [place] [address], * HPV E6/E7 RFLX VANNESSA 16 18/45 (01/15/2022 10:19 AM EDT) HPV mRNA E6/E7 rflx Not Detected Not Detected [facility] Comment: Methodology: Agricultural Produce [employer]orter-Mediated Amplification This assay detects E6/E7 viral messenger RNA (mRNA) from 14 high-risk HPV types (16,18,31,33,35,39,45,51,52,56,58,59,66,68). Cervical sources are required for HPV testing. If a vaginal source from a patient who has had a total hysterectomy with removal of cervix was submitted, please contact the testing laboratory for alternative testing options. For additional information, please refer to http://education.Landscape Mobile/faq/NRU469a3 (This link if provided for information/ educational purposes only.) THIS TEST WAS PERFORMED AT: [facility] [address] [place] [address],[address] [place], [place] ??[phone] ESPERANZA CRUZ MD 01/15/2022 10:1 9 AM EDT Mario Alberto Morgan MD HISTORICAL/NON ORDERABLE LABS Fi nal Result Performing Organization Address [facility] Co de Phone Number [facility] [...] a test for HCV RNA (test code 26646) is suggested. ?? For additional information please refer to http://[employer].Landscape Mobile/faq/FUE05g8 (This link is being provided for informational/ educational purposes only.) ?? 11/12/2021 12:0 9 PM EDT us Zev Sanders MD HISTORICAL/NON ORDERABLE LA BS Final Result Performing Organization Address City/[facility]/ZIP Co de Phone Number [facility] [address] * (ABNORMAL) LIPID PANEL, STANDARD (11/12/2021 [...] ?? Hilario MOON et al. JUANA. 2013;310(19): 4184-8583 ?? (http://[employer]faq/NDP028) Non-HDL Cholesterol 129 <130 mg/dL (calc) [facility] [...] BLOOD ORDERABLES Final Result Performing Organization Address City/[facility]/ZIP Co de Phone Number [facility] [address] [place] [address], * Mammography Report 1 (10/17/2021 2:30 PM [...] Most Recently Relevant to Health Maintenance Insurance [employer] C3 Care Teams Assistant Project Manager Relationship Specialty Start Date End Date Zev Sanders MD [address] [place] [phone] PCP - General Internal Medicine 11/16/19
--- OUTSIDE RECORDS SUMMARY | 2024-05-20 14:00 | XMS_ITS | Encounter Summary ---
Author Organization [employer] Address [address] [facility] 7t [place] [address] Care Team Providers Care Photographer'S Assistant Name Role Phone Zev Sanders MD Primary Care Provider [phone] Encounter Details Date Type Department Care Team ([facility] Contact Info) Description 04/12/2022 Orders Only [facility] [address] [place] [address] Zev Sanders MD [address] [place], [place] [phone] Social History Tobacco Use Types Packs/Day Years [...] Upcoming Encounters Date Type Department Care Team ([facility] Contact Info) Description 07/01/2024 11:00 AM EDT Nurse Only [facility] [address] [place], [place] [phone] 08/10/2024 2:00 PM EDT Office Visit [facility] [address] [place] [address] Zev Sanders MD [address] [place] [address] documented as of this encounter Procedures Procedure [...] (10/21/2022 2:13 PM EDT) Slide Review VERIFIED [facility] 10/21/2022 2:13 PM EDT 10/21/2022 5:23 PM EDT us Zev Sanders MD LAB BLOOD ORDERABLES Final Result [facility] [address] [place] [address] [phone] * (ABNORMAL) VENOUS BLOOD GAS (09/04/2022 1:17 PM EDT) VBG pH 7.37 7.32 - 7.43 [facility] Comment:METER #: [id number] additional_comment: Cb murpe VBG PCO2 57 mmHg [facility] Comment:METER #: [id number] additional_comment: Cb murpe VBG PO2 48 mmHg [facility] Comment:METER #: [id number] additional_comment: Cb murpe VBG Base Excess 6.2 mmol/L [facility] Comment:METER #: [id number] additional_comment: Cb murpe VBG HCO3 33(H) 22 - 26 mmol/L [facility] Comment:METER #: [id number] additional_comment: Cb murpe O2 Sat, Lefty 77.0 % [facility] Comment:METER #: [id number] additional_comment: Cb murpe 09/04/2022 1:17 PM EDT 09/04/2022 1:23 PM EDT [facility] External Provider LAB BLO OD ORDERABLES Final Result Performing Organization Address [facility] de Phone Number [facility] [address] [place] [phone] * D Dimer High Sensitivity (09/04/2022 1:10 PM EDT) D Dimer High Sensitivity <150 NG/ML [facility] Comment:D-DIMER HS REFERENCE RANGENote: Our assay reports D-Dimer Units (D- DU).The cut-off value for venous thromboembolic (VTE) disease is230 ng/mL. This value has a very high negative predictivevalue when the patient has a low to moderate clinicalprobability of VTE.The upper limit of normal is 243 ng/mL. 09/04/2022 1:10 PM EDT 09/04/2022 1:18 PM EDT [facility] External Provider LAB BLO OD ORDERABLES Final Result Performing Organization Address [facility] Co de Phone Number [facility] [address] [place] [phone] * B Type Natriuretic Peptide (BNP) (09/04/2022 11:26 AM EDT) B Type Natriuretic Peptide 19 <100 pg/mL [facility] Comment:For those patients w ho are being treated with Natrecor(nesiritide, recombinant BNP), BNP testing should beperformed at least two hours post treatment in order toensure that only endogenous levels of BNP are detected. 09/04/2022 11:2 6 AM EDT 09/04/2022 1:27 PM EDT us [facility] External Provider LAB BLO OD ORDERABLES Final Result [facility] [address] [place] [phone] * (ABNORMAL) Comprehensive Metabolic Panel (09/04/2022 11:26 AM EDT) Sodium 142 135 - 145 mmol/L [facility] Potassium 4.2 3.3 - 5.1 mmol/L [facility] Chloride 102 96 - 108 mmol/L [facility] Carbon Dioxide 34(H) 22 - 29 mmol/L [facility] Anion Gap 10(L) 12 - 20 [facility] Urea Nitrogen (BUN) 15 9 - 16 mg/dL [facility] Creatinine, Serum 0.68 0.5 - 1.4 mg/dL [facility] Creatinine Clr Calc Pharmacy 74.8 [facility] Comment:Provided height and weight: 162.56 cm,49 kg.eGFR (calculated from the MDRD study equation) and eCrCl(calculated from the Cockcroft-Gault equation) are based ondifferent parameters and may not yield comparable results.If eCrCl result is absurd, please check patient'sheight/weight. Estimated Glomerular Filt Rate >60 [facility] Comment:NOTE: For -Am erican individuals, multiply the result by 1.210.Chronic Kidney Disease: Estimated GFR < 60 mL/min/1.88p6Lzuvzh Kidney Disease: Estimated GFR < 15 mL/min/1.73m2 Glucose 112 60 - 115 mg/dL [facility] Calcium 9.4 8.4 - 10.2 mg/dL [facility] Bilirubin, Total 0.7 0.0 - 1.0 mg/dL [facility] Aspartate Amino Transferase 21 5 - 31 U/L [facility] Alanine Aminotransferase 17 0 - 31 U/L [facility] Total Protein 6.7 6.5 - 8.0 g/dL [facility] Albumin Level 4.1 3.5 - 5.0 g/dL [facility] Alkaline Phosphatase 73 39 - 117 U/L [facility] 09/04/2022 11:2 6 AM EDT 09/04/2022 11:33 AM EDT [facility] External Provider LAB BLO OD ORDERABLES Final Result [facility] [address] [place] [address] [phone] * COVID-19 ID NOW (Chunnel[employer]TV) (09/04/2022 11:26 AM EDT) IDNOW SERIAL# [id number] [facility] COVID-19 TEST Negative Negative [facility] COVID-19 NOTE See Note [facility] Comment: Results are for the identification of SARS-CoV2 RNA. TheSARS-CoV2 RNA is generally detectable in respiratory samplesduring the acute phase of infection. Positive results areindicative of the presence of SARS-CoV-2 RNA; clinicalcorrelation with patient history and other diagnosticinformation is necessary to determine patient infectionstatus. Positive results do not rule out bacterial infectionor co- infection with other viruses.Testing facilities within the [facility] and itsterritories are required to report all [...] use by authorized laboratories.Testing performed on the Submit[employer] ID NOW utilizing NAAT. 09/04/2022 11:2 6 AM EDT 09/04/2022 11:33 AM EDT us [facility] Exter nal Provider LAB MOLECULAR DIAGNOSTICS ORDERABLES Final Result [facility] [address] [place] [phone] * (ABNORMAL) CBC auto differential (09/04/2022 11:26 AM EDT) White Blood Count 10.4 4.8 - 10.8 X10*3/uL [facility] Red Blood Count 5.42 4.20 - 5.50 X10*6/uL [facility] Hemoglobin 16.0 12.0 - 16.0 g/dl [facility] Hematocrit 49.3(H) 37.0 - 47.0 % [facility] Mean Corpuscular Volume 91.0 80.0 - 98.0 fL [facility] Mean Corpuscular Hemoglobin 29.5 27.0 - 33.0 pg [facility] Mean Corpuscular HGB Conc 32.5 31.0 - 35.0 g/dl [facility] Red Cell Distribution Width 14.6 11.0 - 16.0 % [facility] Platelet Count 238 160 - 400 X10*3/uL [facility] Mean Platelet Volume 9.5 9.4 - 12.3 fL [facility] Neutrophils Percent Auto 51.2 45 - 73 % [facility] Imm Gran Pct Auto 0.3 0.0 - 0.4 % [facility] Lymphocytes Percent Auto 38.4 20 - 40 % [facility] Monocytes Percent Auto 8.1 2 - 11 % [facility] Eosinophils Percent Auto 1.5 0 - 4 % [facility] Basophils Percent Auto 0.5 0 - 2 % [facility] NRBC Pct Auto 0.0 0.0 - 0.2 /100WBC [facility] Neutrophils Absolute Auto 5.4 2.0 - 8.3 x10*3/uL [facility] Imm Gran Abs Auto 0.03 0.00 - 0.03 X10*3/uL [facility] Lymphocytes Absolute Auto 4.0 1.2 - 4.9 X10*3/uL [facility] Monocytes Absolute Auto 0.8 0.1 - 1.2 X10*3/uL [facility] Eosinophils Absolute Auto 0.2 0.0 - 0.4 X10*3/uL [facility] Basophils Absolute Auto 0.1 0.0 - 0.2 X10*3/uL [facility] NRBC Abs Auto 0.000 0.0 - 0.012 X10*3/uL [facility] 09/04/2022 11:2 6 AM EDT 09/04/2022 11:33 AM EDT [facility] External Provider LAB BLO OD ORDERABLES Final Result Performing Organization Address City/State/[facility] Co de Phone Number [facility] [address] [place] [phone] [phone] documented in this encounter Visit Diagnoses Not on filedocumented in this encounter Care Teams Photographer'S Assistant Relationship Specialty Start Date End Date Zev Sanders MD [address] [place] [phone] PCP - General Internal Medicine 11/16/19 documented as of this encounter
--- OUTSIDE RECORDS SUMMARY | 2024-05-20 14:00 | XMS_ITS | Encounter Summary ---
Author Organization [facility] Address [address] [place] [address] 7t [place] [address] Care Team Providers Care Chocolate Finisher Operator Name Role Phone Zev Sanders MD Primary Care Provider [phone] Reason for Visit * Reason Comments Med Refill Encounter Details Date Type Department Care Team ([facility] Contact Info) Description 11/05/[address] [facility] MED & PEDS [address] [place] [address] Zev Sanders MD [address] [place] [address] Chronic low back pain, unspecified back pain [...] Upcoming Encounters Date Type Department Care Team ([facility] Contact Info) Description 07/01/2024 11:00 AM EDT Nurse Only [facility] [address] [place] [address] 08/10/2024 2:00 PM EDT Office Visit [facility] MED & PEDS [address] [place] [address] Zev Sanders MD [address] [place] [address] documented as of this encounter Visit Diagnoses Diagnosis Chronic low back pain, unspecified back pain laterality, unspecified whether sciatica present documented in this encounter Care Teams Chocolate Finisher Operator Relationship Specialty Start Date End Date Zev Sanders MD [address] [place] [address] PCP - General Internal Medicine 11/16/19 documented as of this encounter
--- OUTSIDE RECORDS SUMMARY | 2024-05-20 14:00 | XMS_ITS | Encounter Summary ---
Author Organization [employer] Address [address] [facility] 7 [place] [address] Care Team Providers Care Retail Agent Name Role Phone Zev Sanders MD Primary Care Provider [phone] Reason for Visit * Reason Comments Transition Of Care (Tcm) HDF scheduled. Encounter Details Date Type Department Care Team ([facility] [address] Contact Info) Description 04/21/2024 Patient Outreach [facility] MED & PEDS [address] [place] [address] Zev Sanders MD [address] [place] [address] Transition Of Care (Tcm) (HDF scheduled. ) [...] Admission/Visit 04/04/24 Date of Discharge 04/06/24 Facility [facility] Diagnosis Dyspnea Disposition Discharged Home Follow-Up Actions [...] Wednesdays, and Walk-In Urgent Care Located in [facility] of [facility]. Patient provided with after-hours line for [facility], , which offer night time triage service and option to transfer to talent acquisition manager provider if needed. CC scanned discharge summary into patient's chart. Biggest concern forappointment at this time is no concerns. Appropriate screenings completed in anticipation of appointment. documented in this encounter Plan of Treatment Upcoming Encounters Date Type Department Care Team (Late st Contact Info) Description 07/01/2024 11:00 AM EDT Nurse Only [facility] MED & PEDS [address] [facility] [place] [address] 08/10/2024 2:00 PM EDT Office Visit [facility] MED & PEDS [address] [place] [address] Zev Sanders MD [address] [place] [address] documented as of this encounter Visit Diagnoses Not on filedocumented in this encounter Additional Health Concerns Assessment Noted Time PHQ-9 Depression Total Score: 7 10/14/19 24 11:59 AM EDT documented as of this encounter Care Teams Retail Agent Relationship Specialty Start Date End Date Zev Sanders MD [address] [place] [address] PCP - General Internal Medicine 11/16/19 documented as of this encounter
--- OUTSIDE RECORDS SUMMARY | 2024-05-20 14:00 | XMS_ITS | Encounter Summary ---
Author Organization [employer] Address [address] [facility] 7 [place] [address] Care Team Providers Care Engineering Professor Name Role Phone Zev Sanders MD Primary Care Provider [phone] Reason for Visit * Reason Onset Date Comments Nurse Triage 04/20/2024 Encounter Details Date Type Department Care Team ([facility] st Contact Info) Description 04/20/2024 Telephone [facility] MED & PEDS [address] [place], [place] [phone] Zev Sanders MD [address] [place] [address] Nurse Triage Social History Tobacco Use Types [...] immediate evaluation. Pt declines to come to [facility] and agrees to go to ED. * Telephone Encounter - Hilaria Chadwick - 04/20/2024 10:33 AM EST Symptom: Leg Swelling - Not From Injury Outcome: Schedule an appointment to be seen within 24 hours Reason: Caller denied all higher acuity questions The caller accepted this outcome. documented in this encounter Plan of Treatment Upcoming Encounters Date Type Department Care Team ([facility] st Contact Info) Description 07/01/2024 11:00 AM EDT Nurse Only [facility] MED & PEDS [address] [place] [address] 08/10/2024 2:00 PM EDT Office Visit [facility] MED & PEDS [address] [place] [address] Zev Sanders MD [address] [place] [address] documented as of this encounter Visit Diagnoses Not on filedocumented in this encounter Additional Health Concerns Assessment Noted Time PHQ-9 Depression Total Score: 7 10/14/19 24 11:59 AM EDT documented as of this encounter Care Teams Engineering Professor Relationship Specialty Start Date End Date Zev Sanders MD [address] [place] [address] PCP - General Internal Medicine 11/16/19 documented as of this encounter
--- OUTSIDE RECORDS SUMMARY | 2024-05-20 14:00 | XMS_ITS | Encounter Summary ---
Author Organization [email or web address] [facility] Address [address] [facility] 7 [place] [address] Care Team Providers Care Director Custom Name Role Phone Zev Sanders MD Primary Care Provider [phone] Reason for Referral * Imaging (Routine) - Authorized Specialty Diagnoses / Procedures Referred By Contac cassi Referred To Contact Radiology Diagnoses FDC (current) use of systemic steroids Procedures BONE DENSITY/DEXA (HIPS, PELVIS OR SPINE) Zev Sanders MD [address] [place] [address] Phone: tel: fax: [address] Phone: tel: fax: Referral ID Status Reason Start Date Expiration Date V isits Requested Visits Authorized [id number] Authorized 05/10/2024 05/10/2025 1 1 Reason for Visit * Reason Comments Follow-up HDF Encounter Details Date Type Department Care Team (Late st Contact Info) Description 05/10/2024 1:15 PM EST Office Visit [facility] MED & PEDS [address] [place], [place] [phone] Zev Sanders MD [address] [place] [address] FDC (current) use of systemic steroids (Primary Dx); [...] was evaluated in the emergency department at [facility] on April 04, 2024 for an asthma [...] test was performed last week at her legal coordinator's office. 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 Levalbuterol prescribed given h/o palpitation on albuterol. Advised to follow up w/ her legal coordinator. Orders: - levalbuterol (Xopenex) 0.63 MG/3ML nebulizer solution; Take 1 ampule by nebulization every 8 (eight) hours if needed for wheezing. 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
--- OUTSIDE RECORDS SUMMARY | 2024-05-20 14:00 | XMS_ITS | Encounter Summary ---
Author Organization [employer] Address [address] [facility] 7 [place] [address] Care Team Providers Care Volumetric Weigher Name Role Phone Zev Sanders MD Primary Care Provider [phone] Reason for Visit * Reason Onset Date Comments chart prep 05/06/2024 Encounter Details Date Type Department Care Team ([facility] st Contact Info) Description 05/06/2024 Telephone [facility] CHC MED & PEDS [address] [place], [place] [phone] Zev Sanders MD [address] [place] [address] chart prep Social History Tobacco Use Types [...] ([facility] st Contact Info) Description 07/01/2024 11:00 AM EDT Nurse Only [facility] MED & PEDS [address] [place] [address] 08/10/2024 2:00 PM EDT Office Visit [facility] MED & PEDS [address] [place] [address] Zev Sanders MD [address] [place] [address] documented as of this encounter Visit Diagnoses Not on filedocumented in this encounter Additional Health Concerns Assessment Noted Time PHQ-9 Depression Total Score: 7 10/14/19 24 11:59 AM EDT documented as of this encounter Care Teams Volumetric Weigher Relationship Specialty Start Date End Date Zev Sanders MD [address] [place] [address] PCP - General Internal Medicine 11/16/19 documented as of this encounter
--- OUTSIDE RECORDS SUMMARY | 2024-05-20 14:00 | XMS_ITS | Encounter Summary ---
Author Organization [employer] Address [address] [facility] 7t [place] [address] Care Team Providers Care Assistant Construction Superintendent Name Role Phone Zev Sanders MD Primary Care Provider [phone] Reason for Visit * Reason Onset Date Comments Med Refill 07/21/2023 Encounter Details Date Type Department Care Team ([facility] st Contact Info) Description 07/21/2023 Telephone [facility] [address] [place] [address] Zev Sanders MD [address] [place] [address] Med Refill Social History Tobacco Use Types [...] sent to: [facility] - [place], [place] - [address] [place] [address] documented in this encounter Plan of Treatment Upcoming Encounters Date Type Department Care Team ([facility] st Contact Info) Description 07/01/2024 11:00 AM EDT Nurse Only [facility] MED & PEDS [address] [place] [address] 08/10/2024 2:00 PM EDT Office Visit [facility] MED & PEDS [address] [place] [address] Zev Sanders MD [address] [place] [address] documented as of this encounter Visit Diagnoses Not on filedocumented in this encounter Care Teams Assistant Construction Superintendent Relationship Specialty Start Date End Date Zev Sanders MD [address] [place] [address] PCP - General Internal Medicine 11/16/19 documented as of this encounter
== END 2024-05-20 13:30 | disposition home or self-care (01) ==
PROVIDERS: PCP Internal Medicine; Visit Provider Nurse Practitioner Family
DX: M54.2 Cervicalgia (principal); S93.401A Sprain of unspecified ligament of right ankle, initial encounter; M51.369 Other intervertebral disc degeneration, lumbar region without mention of lumbar back pain or lower extremity pain; Z79.891 Long term (current) use of opiate analgesic; M47.816 Spondylosis without myelopathy or radiculopathy, lumbar region
CPT/HCPCS: 99214

== ENCOUNTER → 2024-05-20 13:05 | Outpatient (BNVA) | payer MEDICAID, SELFPAY | PROVIDERS: PCP Internal Medicine; Visit Provider Nurse Practitioner Family | DX: Z51.81 Encounter for therapeutic drug level monitoring (principal); M47.816 Spondylosis without myelopathy or radiculopathy, lumbar region; M51.360 Other intervertebral disc degeneration, lumbar region with discogenic back pain only; M54.2 Cervicalgia; S93.401A Sprain of unspecified ligament of right ankle, initial encounter; Z79.891 Long term (current) use of opiate analgesic | CPT/HCPCS: 99212 ==

== ENCOUNTER 2024-06-02 13:16 | Outpatient (AMB) | payer MEDICAID, SELFPAY ==
--- NOTE | 2024-06-02 13:23 | A.OFFVIS_ITS ---
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 Patient reports that she was standing on her tip toes fixing a curtain when her right ankle inverted and she felt a pop in her ankle. Immediate pain, she resented to [facility] where x-rays were, crutches were given and referred to orthopedics. Current pain level is pain. Her pain presents today an unable to swelling intermittent. achilles area that travels up her leg to calf. she feels a stretching sensation. tenderness in her calf. Finds realif with oxycodone that is prescribed due to her back condition. 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 She states she was hanging curtains when she was on her tip toes when she felt her right ankle give out in twist and she felt a pop in the ankle. She had immediate discomfort and was unable to put full weight on the foot therefore she was seen in the emergency department. While in the emergency department she was noted to have pain along the Achilles tendon but there was no evidence what appears to be an Achilles tendon rupture at that time. Patient comes in today for further evaluation and states she has limitations in the right ankle where she is not able to stand on her tip toes and walk without a limp. No previous injuries noted. [facility] Medical History Current non-smoker but past smoking history unknown Respiratory failure with hypoxia COPD exacerbation Pre-op examination History of OCD (obsessive compulsive disorder) History of panic attacks Anxiety and depression Radiculopathy, lumbar region HTN (hypertension) Sacroiliitis COPD (chronic obstructive pulmonary disease) Asthma Allergic rhinitis Disc degeneration, lumbar Surgical History History of surgery History of appendectomy Hx of tonsillectomy Status post excision of lipoma History of tubal ligation Hx of excision of mass History of surgery History of laparoscopic cholecystectomy History of esophagogastroduodenoscopy (EGD) History of umbilical hernia repair History of incision and drainage Family History Family/Other Cervical cancer Family/Other Stomach cancer Social History Household Members: Significant Other and Family Household Members Other:: grandson Housing: House Do you presently have visiting nurse or other home services: No Alcohol intake: never Comment: Significant other bedside Patient Tobacco Use Status: Former Tobacco user Tobacco use type: Cigarette Substance Use Type: Marijuana Advance Directives Date on File: 04/06/24 service: No Current occupational status: unemployed Sexual orientation: Straight/Heterosexual Gender identity: Female Review of Systems Const All systems reviewed & are unremarkable except as noted in HPI and below Physical Exam Vital Signs: BMI result Body Mass Index 20.9 Const General: cooperative and no acute distress Orientation/consciousness: patient oriented x3 Resp Effort & Inspection: normal respiratory effort and able to speak in complete sentences Cardio Peripheral pulses: Peripheral pulses 2+ throughout Neuro General: patient oriented x3 Extrem Other: Right ankle is normal to inspection there is no tenderness over the medial or lateral malleolus. No soft tissue tenderness over the syndesmosis. She does have pain over the Achilles tendon with a palpable defect. She does have decreased motion with plantar and dorsiflexion when compared to contralateral side. She does have mobility of the right foot with Archuleta's test however it is less than contralateral side. Results Reviewed Results Reviewed: X-rays of the right ankle obtained on 05/14/2024 in the emergency department are negative for any acute or chronic abnormalities. Ankle mortise intact. Assessment & Plan Assessment & Plan (1) Rupture of right Achilles tendon: Code(s): S86.011A - Strain of right Achilles tendon, initial encounter Category: Medical Plan: Based on the patient's presentation it appears she may have at least a partial Achilles tendon rupture. I did place her in a tall boot she can weightbear as tolerated. I did express the importance of working with physical therapy to regain some strength back. Did explain that she may not recover 100% to full strength and mobility as prior to injury however it would be functional to the point where she can do daily activities without severe and limitations. Given the injury was approximately 3 weeks ago and she has significant comorbidities including oxygen use we would treat this conservatively. I would like to see he r back in 4-6 weeks sooner if needed. Orders: Orders PT Evaluation and Treatment Today S93.401A - Sprain of unspecified ligament of right ankle, initial encounter Coding Level of Care Code New Pt Level 3 (24251) Complex EM visit Add On G2211 Diagnoses Rupture of right Achilles tendon S86.011A
[2024-06-02 13:24] VITALS: BMI 20.9
--- OUTSIDE RECORDS SUMMARY | 2024-06-02 15:49 | XMS_ITS | Encounter Summary ---
Author Organization [employer] Address [address] [facility] 7t [place] [address] Care Team Providers Care Precision Printing Worker Name Role Phone Zev Sanders MD Primary Care Provider [phone] Reason for Visit * Reason Comments Med Refill Encounter Details Date Type Department Care Team ([facility] Contact Info) Description 05/25/2024 Refill [facility] MED & PEDS [address] [place], [place] [phone] Zev Sanders MD [address] [place] [address] Social History Tobacco Use Types Packs/Day Years [...] Description 07/01/2024 11:00 AM EDT Nurse Only [facility] MED & PEDS [address] [place] [address] 08/10/2024 2:00 PM EDT Office Visit [facility] MED & PEDS [address] [place] [address] Zev Sanders MD [address] [place] [address] documented as of this encounter Visit Diagnoses Not on filedocumented in this encounter Additional Health Concerns Assessment Noted Time PHQ-9 Depression Total Score: 7 10/14/19 24 11:59 AM EDT documented as of this encounter Care Teams Precision Printing Worker Relationship Specialty Start Date End Date Zev Sanders MD [address] [place] [address] PCP - General Internal Medicine 11/16/19 documented as of this encounter
--- OUTSIDE RECORDS SUMMARY | 2024-06-02 15:49 | XMS_ITS | Clinical Summary ---
Author Organization [employer] Address [address] [facility] 7t [place] [address] Care Team Providers [facility] Partner Name Role Phone Zev Sanders MD Primary Care Provider [phone] Allergies No known active allergies Medications tiotropium (Spiriva Respimat) 2.5 MCG/ACT inhalerIndicat ions:COPD (chronic obstructive pulmonary disease) case management patient (CMS/[facility]) INHALE TWO PUFF BY MOUTH EVERY MORNING 4 g 5 06/19/19 23 Active cholecalcifero l VITAMIN D (Vitamin D-3) [...] tablet by mouth Once per day. Active levalbuterol (Xopenex) 0.63 MG/3ML nebulizer solutionIndica tions:Asthma-c hronic obstructive pulmonary disease overlap syndrome (CMS/HCC) Take 1 ampule by nebulization every 8 (eight) hours if needed for wheezing. 72 mL 11 05/10/19 25 026 Active lisinopril 10 MG tablet TAKE ONE TABLET EVERY MORNING 90 tablet 1 05/25/19 25 Active esomeprazole (NexIUM) [address] capsule TAKE ONE CAPSULE EVERY MORNING 90 capsule 1 05/25/19 25 Active pregabalin (Lyrica) 150 MG capsuleIndicat ions:Chronic low back pain, unspecified back pain laterality, unspecified whether sciatica present TAKE ONE CAPSULE TWICE DAILY IN THE MORNING AND AT BEDTIME 60 capsule 06/03/19 25 Active lisinopril 10 MG tablet TAKE ONE TABLET EVERY MORNING 90 tablet 1 12/02/19 24 025 Discontinued esomeprazole (NexIUM) [address] capsule TAKE ONE CAPSULE EVERY MORNING 90 capsule 1 12/02/19 24 025 Discontinued pregabalin (Lyrica) 150 MG capsuleIndicat ions:Chronic low back pain, unspecified back pain laterality, unspecified whether sciatica present TAKE ONE CAPSULE TWICE DAILY IN THE MORNING AND AT BEDTIME 60 capsule 03/29/20 24 025 Discontinued pregabalin (Lyrica) 150 MG capsuleIndicat ions:Chronic low back pain, unspecified back pain laterality, unspecified whether sciatica present TAKE ONE CAPSULE TWICE DAILY IN THE MORNING AND AT BEDTIME 60 capsule 05/06/19 25 025 Discontinued Active Problems Problem Noted Date Diagnosed Date Olecranon bursitis, right elbow 03/29/2022 Asthma-chronic obstructive p ulmonary disease overlap syndrome 12/19/2017 Chronic back pain 12/19/2017 Essential hypertension 12/19/2017 Menopausal symptom 12/19/2017 Migraine 12/19/2017 Mood disorder 12/19/2017 Seasonal allergies 12/19/2017 Tobacco dependence syndrome 12/19/2017 Encounters Date Type Department Care Team Description 06/01/2024 Refill [facility] [address] [place] [address] Zev Sanders MD Chronic low back pain, unspecified back pain laterality, unspecified whether sciatica present 05/25/2024 Refill [facility] [address] [place] [address] Zev Sanders MD 05/10/2024 1:15 PM EST Office Visit [facility] [address] [place] [address] 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 (Primary Dx); Asthma-chronic obstructive pulmonary disease overlap syndrome (CMS/HCC) 05/10/2024 Travel 05/06/2024 Telephone [facility] [address] [place] [address] Zev Sanders MD chart prep 05/06/2024 Telephone [facility] [address] [place] [address] Zev Sanders MD chart prep 05/04/2024 Refill [facility] [address] [place] [address] Zev Sanders MD Chronic low back pain, unspecified back pain laterality, unspecified whether sciatica present 2024 Orders Only [facility] External Provider, [facility] 2024 Telephone [facility] [address] [place] [address] Zev Sanders MD Appointment Request 05/01/2024 Travel 04/29/2024 Telephone [facility] [address] [place] [address] Zev Sanders MD No Show 04/28/2024 Telephone [facility] [address] [place] [address] Zev Sanders MD CHART PREP 04/22/2024 Telephone [facility] [address] [place] [address] Zev Sanders MD Results 04/21/2024 Orders Only GENERIC EXTERNAL DATA DEPARTMENT Provider, Generic External Data 04/21/2024 Patient Outreach [facility] [address] [place] [address] Zev Sanders MD Transition Of Care (Tcm) (HDF scheduled. ) 04/21/2024 Patient Outreach [facility] [address] [place] [address] Zev Sanders MD Pre-visit Planning (SDOH will need to be completed in office. ) 04/20/2024 Telephone [facility] [address] [place] [address] Zev Sanders MD Nurse Triage 04/14/2024 Patient Outreach [facility] [address] [place] [address] Zev Sanders MD Transition Of Care (Tcm) (HDF #2 attempt _ unable to lvm) 04/09/2024 Patient Outreach [facility] [address] [place] [address] Zev Sanders MD Transition Of Care (Tcm) (HDF- Not in service) 04/06/2024 Orders Only GENERIC EXTERNAL DATA DEPARTMENT Provider, Generic External Data 03/28/2024 Refill [facility] [address] [place] [address] Zev Sanders MD Chronic low back pain, unspecified back pain laterality, unspecified whether sciatica present 03/04/2024 Telephone [facility] [address] [place] [address] Zev Sanders MD [employer] Paperwork ot renew O2 from Last 3 Months Immunizations Name Administration [...] Used Date Smoking Tobacco: Former Cigarettes 1 2019 Smokeless Tobacco: Never Tobacco Cessation:Counseling Given: [...] Description 07/01/2024 11:00 AM EDT Nurse Only [facility] [address] [place] [address] 08/10/2024 2:00 PM EDT Office Visit [facility] [address] [place] [address] Zev Sanders MD [address] [place] [address] Health Maintenance Due Date Last Done Comments [...] Procedure Name Priority Date/Time Associated Diagnosis Comments [facility] LOWER EXTREMITY VENOUS DUPLEX BILATERAL Routine 2024 1:18 PM EST [facility] US LOWER EXTREMITY VENOUS DUPLEX BILATERAL Routine [...] is included. 2024 1:18 PM EST Narrative [facility] - 2024 3:38 PM EST ? [facility] ?[address] ?[place] [address] ? Ultrasound Report ? Signed ? Patient: Adelia Izquierdo,Deysi D ?MR#: ?? [id number] ? : 1970 ?Acct:[id number] ? Age/Sex: 54 / F ?ADM Date: 05/03/ ? Loc: HO.US ? Attending Dr: Anika Dennis PA-C ? Ordering Physician: Anika Dennis PA-C ?? Date of Service: 05/03/24 ?? Procedure(s): US venous duplex LE BI ?? Accession Number(s): [id number] ? cc: Zev Sanders MD; Anika Dennis [...] DD/ 1318 ? TD/TT: 05/03/24 1345 ? Database Engineer: ? Procedure Note Donotlakshmiinterpreter, Image - [address] [address] Ultrasound Report Signed Patient: Deysi Pfeiffer DMR#: [id number] : 1970Acct:[id number] Age/Sex: 54 / FADM Date: 05/03/24 Loc: HO.US Attending Dr: Anika Dennis PA-C Ordering Physician: Anika Dennis PA-C Date of Service: 05/03/24 Procedure(s): US venous duplex LE BI Accession Number(s): [id number] cc: Zev Sanders MD; Anika Dennis PA-C [...] 05/03/24 1535 DD/ 1318 TD/TT: 05/03/24 1345 Database Engineer: [facility] External Provider CV VASC ULAR PROCEDURES Final Result [facility] [address] [place] [address] * (ABNORMAL) CBC auto differential (04/21/2024 3:22 PM EST) White Blood Count 11.6(H) 4.8 - 10.8 X10*3/uL [facility] Red Blood Count 4.26 4.20 - 5.50 X10*6/uL [facility] Hemoglobin 12.4 12.0 - 16.0 g/dl [facility] Hematocrit 39.4 37.0 - 47.0 % [facility] Mean Corpuscular Volume 92.5 80.0 - 98.0 fL [facility] Mean Corpuscular Hemoglobin 29.1 27.0 - 33.0 pg [facility] Mean Corpuscular HGB Conc 31.5 31.0 - 35.0 g/dl [facility] Red Cell Distribution Width 14.6 11.0 - 16.0 % [facility] Platelet Count 241 160 - 400 X10*3/uL [facility] Mean Platelet Volume 9.2(L) 9.4 - 12.3 fL [facility] Neutrophils Percent Auto 84.3(H) 45 - 73 % [facility] Imm Gran Pct Auto 0.6(H) 0.0 - 0.4 % [facility] Lymphocytes Percent Auto 10.4(L) 20 - 40 % [facility] Monocytes Percent Auto 3.6 2 - 11 % [facility] Eosinophils Percent Auto 0.4 0 - 4 % [facility] Basophils Percent Auto 0.7 0 - 2 % [facility] NRBC Pct Auto 0.0 0.0 - 0.2 /100WBC [facility] Neutrophils Absolute Auto 9.8(H) 2.0 - 8.3 x10*3/uL [facility] Imm Gran Abs Auto 0.07(H) 0.00 - 0.03 X10*3/uL [facility] Lymphocytes Absolute Auto 1.2 1.2 - 4.9 X10*3/uL [facility] Monocytes Absolute Auto 0.4 0.1 - 1.2 X10*3/uL [facility] Eosinophils Absolute Auto 0.1 0.0 - 0.4 X10*3/uL [facility] Basophils Absolute Auto 0.1 0.0 - 0.2 X10*3/uL [facility] NRBC Abs Auto 0.000 0.0 - 0.012 X10*3/uL [facility] 04/21/2024 3:22 PM EST 04/21/2024 3:24 PM EST us Generic External Data Provider LAB BLOOD ORDERAB LES Final Result [facility] [address] [place], [place] [phone] * Prothrombin Time-INR (04/21/2024 3:22 PM EST) Prothrombin Time 10.9 10.9 - 12.4 SEC [facility] INTERNATIONAL NORM RATIO 0.9 0.9 - 1.1 [facility] Comment:INTERNATIONAL NORMAL IZED RATIO (INR) [...] Provider LAB BLOOD ORDERAB LES Final Result [facility] [address] [place] [address] [phone] * (ABNORMAL) Comprehensive Metabolic Panel (04/21/2024 3:22 PM EST) Sodium 143 135 - 145 mmol/L [facility] Potassium 4.9 3.3 - 5.1 mmol/L [facility] Chloride 103 96 - 108 mmol/L [facility] Carbon Dioxide 33(H) 22 - 29 mmol/L [facility] Anion Gap 12 12 - 20 [facility] Urea Nitrogen (BUN) 11 9 - 16 mg/dL [facility] Creatinine, Serum 0.59 0.5 - 1.4 mg/dL [facility] Creatinine Clr Calc Pharmacy 95.2 [facility] Comment:Provided height and weight: 162.56 cm,56.9 kg.eGFR (calculated from the MDRD study equation) and eCrCl(calculated from the Cockcroft-Gault equation) are based ondifferent parameters and may not yield comparable results.If eCrCl result is absurd, please check patient'sheight/weight. Estimated Glomerular Filt Rate >60 [facility] Comment:Chronic Kidney Disea se: Estimated GFR < 60 mL/min/1.91y8Qsvmcd Kidney Disease: Estimated GFR < 15 mL/min/1.73m2 Glucose 116(H) 60 - 115 mg/dL [facility] Calcium 9.1 8.4 - 10.2 mg/dL [facility] Bilirubin, Total 0.3 0.0 - 1.0 mg/dL [facility] Aspartate Amino Transferase 17 5 - 31 U/L [facility] Alanine Aminotransferase 14 0 - 31 U/L [facility] Total Protein 6.6 6.5 - 8.0 g/dL [facility] Albumin Level 3.9 3.5 - 5.0 g/dL [facility] Alkaline Phosphatase 66 39 - 117 U/L [facility] 04/21/2024 3:22 PM EST 04/21/2024 3:24 PM EST us Generic External Data Provider LAB BLOOD ORDERAB LES Final Result Performing Organization Address [facility]/ZIP Co de Phone Number [facility] [address] [place] [phone] * Lactic Acid (04/06/2024 1:03 PM EST) Lactic Acid 0.7 0.5 - 2.0 mmol/L [facility] 04/06/2024 1:03 PM EST 04/06/2024 1:07 PM EST us Generic External Data Provider LAB BLOOD ORDERAB LES Final Result Performing Organization Address City/[facility]/ZIP Co de Phone Number [facility] [address] [place] [phone] * (ABNORMAL) VENOUS BLOOD GAS (04/06/2024 11:05 AM EST) VBG pH 7.43 7.32 - 7.43 [facility] Comment:METER #: [id number] additional_comment: Cb thompson VBG PCO2 52 mmHg [facility] Comment:METER #: [id number] additional_comment: Cb thompson VBG PO2 33 mmHg [facility] Comment:METER #: [id number] additional_comment: Cb thompson VBG Base Excess 9.5 mmol/L [facility] Comment:METER #: [id number] additional_comment: Joshua thompson VBG HCO3 35(H) 22 - 26 mmol/L [facility] Comment:METER #: [id number] additional_comment: Joshua thompson O2 Sat, Lefty 55.0 % [facility] Comment:METER #: [id number] additional_comment: Joshua thompson 04/06/2024 11:0 5 AM EST 04/06/2024 11:13 AM EST us Generic External Data Provider LAB BLOOD ORDERAB LES Final Result [facility] [address] [place] [address] [phone] * XR Chest 1 View (04/06/2024 10:40 AM EST) Anatomical Region Laterality Modality Chest Radiographic Joy ging 04/06/2024 10:4 0 AM EST Narrative 04/06/2024 11:33 AM EST ? [facility] ?[address] ?[place] [address] ?XRay Report ? Signed ? Patient: Deysi Pfeiffer ?MR#: ?? [id number] ? : 1970 ?Acct:[id number] ? Age/Sex: 53 / F ?ADM Date: 04/06/24 ? Loc: HO.ED ? Attending Dr: ? Ordering Physician: Demetrius Valdivia MD ?? Date of Service: 04/06/24 ?? Procedure(s): XR chest 1V ?? Accession Number(s): [id number] ? cc: Zev Sanders MD; Demetrius Valdivia [...] DD/ 1040 ? TD/TT: 04/06/24 1127 ? Database Engineer: ? Procedure Note Donemberinterpreter, Image - 04/06/[address] [address] XRay Report Signed Patient: Deysi Pfeiffer DMR#: [id number] : 1970Acct:[id number] Age/Sex: 53 / FADM Date: 04/06/24 Loc: HO.ED Attending Dr: Ordering Physician: Demetrius Valdivia MD Date of Service: 04/06/24 Procedure(s): XR chest 1V Accession Number(s): [id number] cc: Zev Sanders MD; Demetrius Valdivia MD [...] Brannon MD Signed By: <Electronically signed by Nathan Valenzuela OV> 04/06/24 1131 DD/ 1040 TD/TT: 04/06/24 1127 Database Engineer: [facility] External Provider IMG XR PROCEDURES Edited Result - Final * Cologuard?? colon cancer screening (03/10/2023 2:14 PM EST) Cologuard Result Negative Negative 03/21/20 1:56 AM EST [employer] [facility] (CLIA #:[id number]) Comment: NEGATIVE TEST RESULT. A negative Cologuard [...] with both Cologuard and colonoscopy. (Jorge Luis T. et al, N Engl J Med 2014;370(14):1286- 1297) The normal value (reference range) for this assay is negative. COLOGUARD RE-SCREENING RECOMMENDATION: Periodic colorectal cancer screening is an important part of preventive healthcare for asymptomatic individuals at average risk for colorectal cancer. ??Following a negative Cologuard result, the [employer] Society and U.S. Multi-Society Task Force screening guidelines recommend a Cologuard re-screening interval of 3 years. References: [employer] Guideline for Colorectal Cancer Screening: https://www.cancer.org/cancer/wxpgj-whecht-honiwr/muqhdvmxk-tyjrpdezv-dwspnte/ac s-rec ommendations.html.; Edgar CRESPO, Antonio STONE, Salma SNA, Colorectal Cancer Screening: Recommendations for Physicians and Patients from the U.S. Multi-Society Task Force on Colorectal Cancer Screening , Am J Gastroenterology 2017; 112:9397-8969. TEST DESCRIPTION: Composite algorithmic analysis of stool [...] Dunn et al, N Engl J Med 2014;370(14):2982-7060.) Cologuard may produce a false negative or false positive result (no colorectal cancer or precancerous polyp present at colonoscopy follow up). A negative Cologuard test result does not guarantee the absence of CRC or advanced adenoma (pre-cancer). The current Cologuard screening interval is every 3 years. ([employer] Society and U.S. Multi-Society Task Force). Cologuard performance data in a 10,000 patient pivotal study using colonoscopy as the reference method can be accessed at the following location: www.MediaTrust/results. Additional description of the Cologuard test process, warnings and precautions can be found at www.Click & Growrd.com. Stool specimen (specimen) 03/10/2023 2:14 PM EST 03/12/2023 8:29 PM EST us Zev Sanders MD LAB MOLECULAR DIAGNOSTICS O RDERABLES Final Result [employer] [facility] (CLIA #:[id number]) [address] [place] [address], [place] [phone] * HPV E6/E7 RFLX VANNESSA 16 18/45 (01/15/2022 10:19 AM EDT) [facility] HPV mRNA E6/E7 rflx Not Detected Not Detected [facility] Comment: Methodology: Clutch Inspector-Mediated Amplification This assay detects E6/E7 viral messenger RNA (mRNA) from 14 high-risk HPV types (16,18,31,33,35,39,45,51,52,56,58,59,66,68). Cervical sources are required for HPV testing. If a vaginal source from a patient who has had a total hysterectomy with removal of cervix was submitted, please contact the testing laboratory for alternative testing options. For additional information, please refer to http://Datto.Thoughtly/faq/MMP437w1 (This link if provided for information/ educational purposes only.) THIS TEST WAS PERFORMED AT: [facility] [address] [place] [address],[address] [place], [place] ??[phone] ESPERANZA CRUZ MD 01/15/2022 10:1 9 AM EDT Mario Alberto Morgan MD HISTORICAL/NON ORDERABLE LABS Fi nal Result [facility] * Hm Pap Smear (01/15/2022) Historical Provider HEALTH MAINTENANCE Final Result * HEPATITIS C AB W/REFL TO HCV RNA, QN, PCR (11/12/2021 12:09 PM EDT) Pathologist [facility] HEPATITIS C ANTIBODY NON-REACT JOSE MANUEL NON-REACT JOSE MANUEL [facility] INDEX 0.09 <1.00 [facility] Comment: ?? HCV antibody was non-reactive. There is no laboratory ?? evidence of HCV infection. ?? In most cases, no further action is required. However, if recent HCV exposure is suspected, a test for HCV RNA (test code 18820) is suggested. ?? For additional information please refer to http://Datto.Thoughtly/faq/SMU39l6 (This link is being provided for informational/ educational purposes only.) ?? 11/12/2021 12:0 9 PM EDT Zev Sanders MD HISTORICAL/NON ORDERABLE LA BS Final Result Performing Organization Address [facility]/ZIP Co de Phone Number [facility] [address] [place] [address], * (ABNORMAL) LIPID PANEL, STANDARD (11/12/2021 12:09 [...] ?? Hilario MOON et al. JUANA. 2013;310(19): 9481-8519 ?? (http://education.WorldDesk/faq/FBL009) Non-HDL Cholesterol 129 <130 mg/dL (calc) [facility] [...] BLOOD ORDERABLES Final Result Performing Organization Address [facility]/ZIP Co de Phone Number [facility] [address] [place] [address], [place] * Mammography Report 1 (10/17/2021 2:30 PM [...] Most Recently Relevant to Health Maintenance Insurance [employer] C3 Care Teams Research Center Partner Relationship Specialty Start Date End Date Zev Sanders MD [address] [place] [phone] PCP - General Internal Medicine 11/16/19
--- OUTSIDE RECORDS SUMMARY | 2024-06-02 15:49 | XMS_ITS | Encounter Summary ---
Author Organization [email or web address] Address [address] [facility] 7 [place] [address] Care Team Providers Care Safe Technician Name Role Phone Zev Sanders MD Primary Care Provider [phone] Reason for Visit * Reason Onset Date Comments Appointment Request 2024 Encounter Details Date Type Department Care Team ([facility] st Contact Info) Description 2024 Telephone [facility] MED[facility] [address] [place] [address] Zev Sandres MD [address] [place] [address] Appointment Request Social History Tobacco Use Types [...] Upcoming Encounters Date Type Department Care Team ([facility] st Contact Info) Description 07/01/2024 11:00 AM EDT Nurse Only [facility] [address] [place] [address] 08/10/2024 2:00 PM EDT Office Visit [facility] [address] [place] [address] Zev Sanders MD [address] [place] [address] documented as of this encounter Visit Diagnoses Not on filedocumented in this encounter Additional Health Concerns Assessment Noted Time PHQ-9 Depression Total Score: 7 10/14/19 24 11:59 AM EDT documented as of this encounter Care Teams Safe Technician Relationship Specialty Start Date End Date Zev Sanders MD [address] [place] [address] PCP - General Internal Medicine 11/16/19 documented as of this encounter
--- OUTSIDE RECORDS SUMMARY | 2024-06-02 15:49 | XMS_ITS | Encounter Summary ---
Author Organization [employer] Address [address] [facility] 7t [place] [address] Care Team Providers Care Associate Software Application Engineer Name Role Phone Zev Sanders MD Primary Care Provider [phone] Reason for Visit * Reason Comments Med Refill Encounter Details Date Type Department Care Team ([facility] Contact Info) Description 06/01/[address] [facility] [address] [place], [place] [phone] Zev Sanders MD [address] [place] [address] Chronic low back pain, unspecified back pain [...] Nurse Only [facility] [address] [place] [address] 08/10/2024 2:00 PM EDT Office Visit [facility] [address] [place] [address] Zev Sanders MD [address] [place] [address] documented as of this encounter Visit Diagnoses Diagnosis Chronic low back pain, unspecified back pain laterality, unspecified whether sciatica present documented in this encounter Additional Health Concerns Assessment Noted Time PHQ-9 Depression Total Score: 7 10/14/19 24 11:59 AM EDT documented as of this encounter Care Teams Associate Software Application Engineer Relationship Specialty Start Date End Date Zev Sanders MD [address] [place] [address] PCP - General Internal Medicine 11/16/19 documented as of this encounter
--- OUTSIDE RECORDS SUMMARY | 2024-06-02 15:49 | XMS_ITS | Encounter Summary ---
Author Organization [employer] [facility] Address [address] [place] [address] 7 [place] [address] Care Team Providers Care Machine Rough Rounder Name Role Phone Zev Sanders MD Primary Care Provider [phone] Encounter Details Date Type Department Care Team (Late Contact Info) Description 12/24/2022 Orders Only [facility] MEDICINE [address] [place] [address] ProviderJosh MD Social History Tobacco Use Types [...] 11:00 AM EDT Nurse Only [facility] [address] [place] [address] 08/10/2024 2:00 PM EDT Office Visit [facility] [address] [place] [address] Zev Sanders MD [address] [place] [address] documented as of this encounter Procedures Procedure Name Priority Date/Time Associated Diagnosis Comments HM PAP/HPV Routine 01/15/2022 documented in this encounter Results * Hm Pap Smear (01/15/2022) us Historical Provider HEALTH MAINTENANCE Final Result documented in this encounter Visit Diagnoses Not on filedocumented in this encounter Care Teams Machine Rough Rounder Relationship Specialty Start Date End Date Zev Sanders MD [address] [place] [address] PCP - General Internal Medicine 11/16/19 documented as of this encounter
--- OUTSIDE RECORDS SUMMARY | 2024-06-02 15:50 | XMS_ITS | Encounter Summary ---
Author Organization [employer] Address [address] [facility] 7t [place] [address] Care Team Providers Care Rotating Equipment Engineer Name Role Phone Zev Sanders MD Primary Care Provider [phone] Reason for Visit * Reason Onset Date Comments Med Refill 07/21/2023 Encounter Details Date Type Department Care Team ([facility] st Contact Info) Description 07/21/2023 Telephone [facility] MEDICINE [address] [place] [address] Zev Sanders MD [address] [place] [address] Med Refill Social History Tobacco Use Types [...] [facility] [place], [place] - [address] [place] [address] documented in this encounter Plan of Treatment Upcoming Encounters Date Type Department Care Team ([facility] st Contact Info) Description 07/01/2024 11:00 AM EDT Nurse Only [facility] PEDS [address] [place] [address] 08/10/2024 2:00 PM EDT Office Visit [facility] & PEDS [address] [place] [address] Zev Sanders MD [address] [place] [address] documented as of this encounter Visit Diagnoses Not on filedocumented in this encounter Care Teams Rotating Equipment Engineer Relationship Specialty Start Date End Date Zev Sanders MD [address] [place] [address] PCP - General Internal Medicine 11/16/19 documented as of this encounter
--- OUTSIDE RECORDS SUMMARY | 2024-06-02 15:50 | XMS_ITS | Encounter Summary ---
Author Organization [employer] Address 75 [facility] 7 [place] [address] Care Team Providers Care Resident Care Supervisor Name Role Phone Zev Sanders MD Primary Care Provider [phone] Reason for Visit * Reason Onset Date Comments chart prep 05/06/2024 Encounter Details Date Type Department Care Team ([facility] st Contact Info) Description 05/06/2024 Telephone [facility] CH[facility] MED & PEDS [address] [place], [place] [phone] Zev Sanders MD 505 [place] [address] chart prep Social History Tobacco Use Types [...] Upcoming Encounters Date Type Department Care Team ([facility] st Contact Info) Description 07/01/2024 11:00 AM EDT Nurse Only [facility] MED & PEDS [address] [place] [address] 08/10/2024 2:00 PM EDT Office Visit [facility] MED & PEDS [address] [place] [address] Zev Sanders MD 505 [place] [address] documented as of this encounter Visit Diagnoses Not on filedocumented in this encounter Additional Health Concerns Assessment Noted Time PHQ-9 Depression Total Score: 7 10/14/19 24 11:59 AM EDT documented as of this encounter Care Teams Resident Care Supervisor Relationship Specialty Start Date End Date Zev Sanders MD [address] [place] [address] PCP - General Internal Medicine 11/16/19 documented as of this encounter
--- OUTSIDE RECORDS SUMMARY | 2024-06-02 15:50 | XMS_ITS | Encounter Summary ---
Author Organization [employer] Address 75 [facility] 7t [place] [address] Care Team Providers Care Planisher Name Role Phone Zev Sanders MD Primary Care Provider [phone] Encounter Details Date Type Department Care Team ([facility] st Contact Info) Description 07/21/2023 Orders Only [facility] CHC MED & PEDS [address] [place], [place] [phone] Zev Sanders MD [address] [place], [place] [phone] Social History Tobacco Use Types Packs/Day Years [...] 07/01/2024 11:00 AM EDT Nurse Only [facility] MED & PEDS [address] [place] [address] 08/10/2024 2:00 PM EDT Office Visit [facility] MED & PEDS [address] [place] [address] Zev Sanders MD [address] [place] [address] documented as of this encounter Visit Diagnoses Not on filedocumented in this encounter Care Teams Planisher Relationship Specialty Start Date End Date Zev Sanders MD [address] [place] [address] PCP - General Internal Medicine 11/16/19 documented as of this encounter
--- OUTSIDE RECORDS SUMMARY | 2024-06-02 15:50 | XMS_ITS | Encounter Summary ---
Author Organization [facility] [facility] Address [address] [place] [address] 7t [place] [address] Care Team Providers Care Blast Setter Name Role Phone Zev Sanders MD Primary Care Provider [phone] Reason for Visit * Reason Comments Med Refill Encounter Details Date Type Department Care Team ([facility] Contact Info) Description 11/05/2022 Refill [facility] MED & PEDS [address] [place] [address] Zev Sanders MD 505 [place] [address] Chronic low back pain, unspecified back pain [...] Upcoming Encounters Date Type Department Care Team ([facility] Contact Info) Description 07/01/2024 11:00 AM EDT Nurse Only [facility] CHC MED & PEDS [address] [place] [address] 08/10/2024 2:00 PM EDT Office Visit [facility] MED & PEDS [address] [place] [address] Zev Sanders MD [address] [place] [address] documented as of this encounter Visit Diagnoses Diagnosis Chronic low back pain, unspecified back pain laterality, unspecified whether sciatica present documented in this encounter Care Teams Blast Setter Relationship Specialty Start Date End Date Zev Sanders MD [address] [place] [address] PCP - General Internal Medicine 11/16/19 documented as of this encounter
--- OUTSIDE RECORDS SUMMARY | 2024-06-02 15:50 | XMS_ITS | Encounter Summary ---
Author Organization [employer] Address 75 [facility] 7t [place] [address] Care Team Providers Care Outbound Sales Consultant Name Role Phone Zev Sanders MD Primary Care Provider [phone] Encounter Details Date Type Department Care Team ([facility] Contact Info) Description 04/12/2022 Orders Only [facility] [address] [place] [address] Zev Sanders MD 505 [place], [place] [phone] Social History Tobacco Use Types Packs/Day Years [...] Upcoming Encounters Date Type Department Care Team ([facility] Contact Info) Description 07/01/2024 11:00 AM EDT Nurse Only [facility] CHC MED & PEDS [address] [place], [place] [address] 08/10/2024 2:00 PM EDT Office Visit [facility] CHC MED [facility] PEDS [address] [place] [address] Zev Sanders MD 505 [place] [address] documented as of this encounter Procedures Procedure [...] (10/21/2022 2:13 PM EDT) Slide Review VERIFIED [facility] 10/21/2022 2:13 PM EDT 10/21/2022 5:23 PM EDT us Zev Sanders MD LAB BLOOD ORDERABLES Final Result [facility] [address] [place] [address] [phone] * (ABNORMAL) VENOUS BLOOD GAS (09/04/2022 1:17 PM EDT) VBG pH 7.37 7.32 - 7.43 [facility] Comment:METER #: [id number] additional_comment: Cb murpe VBG PCO2 57 mmHg [facility] Comment:METER #: [id number] additional_comment: Cb murpe VBG PO2 48 mmHg [facility] Comment:METER #: [id number] additional_comment: Cb murpe VBG Base Excess 6.2 mmol/L [facility] Comment:METER #: [id number] additional_comment: Cb murpe VBG HCO3 33(H) 22 - 26 mmol/L [facility] Comment:METER #: [id number] additional_comment: Cb murpe O2 Sat, Lefty 77.0 % [facility] Comment:METER #: [id number] additional_comment: Cb murpe 09/04/2022 1:17 PM EDT 09/04/2022 1:23 PM EDT [facility] External Provider LAB BLO OD ORDERABLES Final Result Performing Organization Address [facility] de Phone Number [facility] [address] [place] [phone] * D Dimer High Sensitivity (09/04/2022 1:10 PM EDT) D Dimer High Sensitivity <150 NG/ML [facility] Comment:D-DIMER HS REFERENCE RANGENote: Our assay reports D-Dimer Units (D- DU).The cut-off value for venous thromboembolic (VTE) disease is230 ng/mL. This value has a very high negative predictivevalue when the patient has a low to moderate clinicalprobability of VTE.The upper limit of normal is 243 ng/mL. 09/04/2022 1:10 PM EDT 09/04/2022 1:18 PM EDT [facility] External Provider LAB BLO OD ORDERABLES Final Result Performing Organization Address [facility] Co de Phone Number [facility] [address] [place] [phone] * B Type Natriuretic Peptide (BNP) (09/04/2022 11:26 AM EDT) B Type Natriuretic Peptide 19 <100 pg/mL [facility] Comment:For those patients w ho are being treated with Natrecor(nesiritide, recombinant BNP), BNP testing should beperformed at least two hours post treatment in order toensure that only endogenous levels of BNP are detected. 09/04/2022 11:2 6 AM EDT 09/04/2022 1:27 PM EDT us [facility] External Provider LAB BLO OD ORDERABLES Final Result [facility] [address] [place] [phone] * (ABNORMAL) Comprehensive Metabolic Panel (09/04/2022 11:26 AM EDT) Sodium 142 135 - 145 mmol/L [facility] Potassium 4.2 3.3 - 5.1 mmol/L [facility] Chloride 102 96 - 108 mmol/L [facility] Carbon Dioxide 34(H) 22 - 29 mmol/L [facility] Anion Gap 10(L) 12 - 20 [facility] Urea Nitrogen (BUN) 15 9 - 16 mg/dL [facility] Creatinine, Serum 0.68 0.5 - 1.4 mg/dL [facility] Creatinine Clr Calc Pharmacy 74.8 [facility] Comment:Provided height and weight: 162.56 cm,49 kg.eGFR (calculated from the MDRD study equation) and eCrCl(calculated from the Cockcroft-Gault equation) are based ondifferent parameters and may not yield comparable results.If eCrCl result is absurd, please check patient'sheight/weight. Estimated Glomerular Filt Rate >60 [facility] Comment:NOTE: For -Am erican individuals, multiply the result by 1.210.Chronic Kidney Disease: Estimated GFR < 60 mL/min/1.50l4Hpyfih Kidney Disease: Estimated GFR < 15 mL/min/1.73m2 Glucose 112 60 - 115 mg/dL [facility] Calcium 9.4 8.4 - 10.2 mg/dL [facility] Bilirubin, Total 0.7 0.0 - 1.0 mg/dL [facility] Aspartate Amino Transferase 21 5 - 31 U/L [facility] Alanine Aminotransferase 17 0 - 31 U/L [facility] Total Protein 6.7 6.5 - 8.0 g/dL [facility] Albumin Level 4.1 3.5 - 5.0 g/dL [facility] Alkaline Phosphatase 73 39 - 117 U/L [facility] 09/04/2022 11:2 6 AM EDT 09/04/2022 11:33 AM EDT [facility] External Provider LAB BLO OD ORDERABLES Final Result [facility] [address] [place] [address] [phone] * COVID-19 ID NOW ([employer] [facility] [employer]) (09/04/2022 11:26 AM EDT) IDNOW SERIAL# [id number] [facility] COVID-19 TEST Negative Negative [facility] COVID-19 NOTE See Note [facility] Comment: Results are for the identification [...] within the [facility] and itsterritories are required to report [...] use by authorized laboratories.Testing performed on the [employer] ID NOW utilizing [employer]. 09/04/2022 11:2 6 AM EDT 09/04/2022 11:33 AM EDT us [facility] Exter nal Provider LAB MOLECULAR DIAGNOSTICS ORDERABLES Final Result [facility] [address] [place] [phone] * (ABNORMAL) CBC auto differential (09/04/2022 11:26 AM EDT) White Blood Count 10.4 4.8 - 10.8 X10*3/uL [facility] Red Blood Count 5.42 4.20 - 5.50 X10*6/uL [facility] Hemoglobin 16.0 12.0 - 16.0 g/dl [facility] Hematocrit 49.3(H) 37.0 - 47.0 % [facility] Mean Corpuscular Volume 91.0 80.0 - 98.0 fL [facility] Mean Corpuscular Hemoglobin 29.5 27.0 - 33.0 pg [facility] Mean Corpuscular HGB Conc 32.5 31.0 - 35.0 g/dl [facility] Red Cell Distribution Width 14.6 11.0 - 16.0 % [facility] Platelet Count 238 160 - 400 X10*3/uL [facility] Mean Platelet Volume 9.5 9.4 - 12.3 fL [facility] Neutrophils Percent Auto 51.2 45 - 73 % [facility] Imm Gran Pct Auto 0.3 0.0 - 0.4 % [facility] Lymphocytes Percent Auto 38.4 20 - 40 % [facility] Monocytes Percent Auto 8.1 2 - 11 % [facility] Eosinophils Percent Auto 1.5 0 - 4 % [facility] Basophils Percent Auto 0.5 0 - 2 % [facility] NRBC Pct Auto 0.0 0.0 - 0.2 /100WBC [facility] Neutrophils Absolute Auto 5.4 2.0 - 8.3 x10*3/uL [facility] Imm Gran Abs Auto 0.03 0.00 - 0.03 X10*3/uL [facility] Lymphocytes Absolute Auto 4.0 1.2 - 4.9 X10*3/uL [facility] Monocytes Absolute Auto 0.8 0.1 - 1.2 X10*3/uL [facility] Eosinophils Absolute Auto 0.2 0.0 - 0.4 X10*3/uL [facility] Basophils Absolute Auto 0.1 0.0 - 0.2 X10*3/uL [facility] NRBC Abs Auto 0.000 0.0 - 0.012 X10*3/uL [facility] 09/04/2022 11:2 6 AM EDT 09/04/2022 11:33 AM EDT [facility] External Provider LAB BLO OD ORDERABLES Final Result Performing Organization Address City/State/[facility] Co de Phone Number [facility] [address] [place] [address] [phone] documented in this encounter Visit Diagnoses Not on filedocumented in this encounter Care Teams Outbound Sales Consultant Relationship Specialty Start Date End Date Zev Sanders MD [address] [place] [phone] PCP - General Internal Medicine 11/16/19 documented as of this encounter
--- OUTSIDE RECORDS SUMMARY | 2024-06-02 15:50 | XMS_ITS | Encounter Summary ---
Author Organization [employer] Address 75 [facility] 7 [place] [address] Care Team Providers Care It Desktop Support Technician Name Role Phone Zev Sanders MD Primary Care Provider [phone] Reason for Visit * Reason Onset Date Comments Appointment Request 11/01/2022 Encounter Details Date Type Department Care Team ([facility] st Contact Info) Description 11/01/[address] [facility] CHC MED & PEDS [address] [place], [place] [phone] Zev Sanders MD [address] [place] [address] Appointment Request Social History Tobacco Use Types [...] PE on 10/24/2022. Please contact pt at [phone] documented in this encounter Plan of Treatment Upcoming Encounters Date Type Department Care Team (Late st Contact Info) Description 07/01/2024 11:00 AM EDT Nurse Only [facility] MED & PEDS [address] [place] [address] 08/10/2024 2:00 PM EDT Office Visit [facility] MED & PEDS [address] [place] [address] Zev Sanders MD [address] [place] [address] documented as of this encounter Visit Diagnoses Not on filedocumented in this encounter Care Teams It Desktop Support Technician Relationship Specialty Start Date End Date Zev Sanders MD [address] [place] [address] PCP - General Internal Medicine 11/16/19 documented as of this encounter
--- OUTSIDE RECORDS SUMMARY | 2024-06-02 15:50 | XMS_ITS | Encounter Summary ---
Author Organization [employer] Address 75 [facility] 7t [place] [address] Care Team Providers Care Rehabilitation Construction Specialist Name Role Phone Zev Sanders MD Primary Care Provider [phone] Encounter Details Date Type Department Care Team [...] 11:00 AM EDT Nurse Only [facility] MED & PEDS [address] [place] [address] 08/10/2024 2:00 PM EDT Office Visit [facility] MED & PEDS [address] [place] [address] Zev Sanders MD [address] [place] [address] documented as of this encounter Visit Diagnoses Not on filedocumented in this encounter Additional Health Concerns Assessment Noted Time PHQ-9 Depression Total Score: 7 10/14/19 24 11:59 AM EDT documented as of this encounter Care Teams Rehabilitation Construction Specialist Relationship Specialty Start Date End Date Zev Sanders MD [address] [place] [address] PCP - General Internal Medicine 11/16/19 documented as of this encounter
--- OUTSIDE RECORDS SUMMARY | 2024-06-02 15:50 | XMS_ITS | Encounter Summary ---
Author Organization [employer] Address [address] [place] [address] 7t [place] [address] Care Team Providers Care Setup Operator Name Role Phone Zev Sanders MD Primary Care Provider [phone] Encounter Details Date Type Department Care Team ([facility] Contact Info) Description 10/22/2022 Orders Only [facility] MED & PEDS [address] [place], [place] [phone] Zev Sanders MD [address] [place], [place] [phone] Gastroenteritis (Primary Dx) Social History Tobacco Use [...] Upcoming Encounters Date Type Department Care Team ([facility] Contact Info) Description 07/01/2024 11:00 AM EDT Nurse Only [facility] CHC MED & PEDS [address] [place] [address] 08/10/2024 2:00 PM EDT Office Visit [facility] MED & PEDS [address] [place], [place] [phone] Zev Sanders MD [address] [place] [address] documented as of this encounter Visit Diagnoses Diagnosis Gastroenteritis- Primary Other and unspecified noninfectious gastroenteritis and colitis documented in this encounter Care Teams Setup Operator Relationship Specialty Start Date End Date Zev Sanders MD [address] [place] [address] [place] [address] PCP - General Internal Medicine 11/16/19 documented as of this encounter
--- OUTSIDE RECORDS SUMMARY | 2024-06-02 15:50 | XMS_ITS | Encounter Summary ---
Author Organization [employer] Address [address] [facility] [address] 7t [place] [address] Care Team Providers Care Customer Project Manager Name Role Phone Zev Sanders MD Primary Care Provider [phone] Encounter Details Date Type Department Care Team ([facility] st Contact Info) Description 2024 Orders Only [facility] External Provider, [facility] Social History Tobacco Use Types Packs/Day [...] Upcoming Encounters Date Type Department Care Team ([facility] st Contact Info) Description 07/01/2024 11:00 AM EDT Nurse Only [facility] MED & PEDS [address] [place] [address] 08/10/2024 2:00 PM EDT Office Visit [facility] MED & PEDS [address] [place] [address] Zev Sanders MD [address] [place] [address] documented as of this encounter Procedures Procedure Name Priority Date/Time Associated Diagnosis Comments [facility] LOWER EXTREMITY VENOUS DUPLEX BILATERAL Routine 2024 1:18 PM EST documented in this encounter Results * [facility] Lower Extremity Venous Duplex Bilateral (2024 1:18 PM EST) 2024 1:18 PM EST Narrative [facility] IMAGING - 2024 3:38 PM EST ? [facility] ?[address] ?[place] [address] ? Ultrasound Report ? Signed ? Patient: Delvalle Izquierdo,Deysi D ?MR#: ?? [id number] ? : 1970 ?Acct:[id number] ? Age/Sex: 54 / F ?ADM Date: 02/03/25 ? Loc: HO.US ? Attending Dr: Anika Dennis PA-C ? Ordering Physician: Anika Dennis PA-C ?? Date of Service: 05/03/24 ?? Procedure(s): US venous duplex LE BI ?? Accession Number(s): [id number] ? cc: Zev Sanders MD; Anika Dennis [...] DD/ 1318 ? TD/TT: 05/03/24 1345 ? Magnetic Resonance Imaging Director: ? Procedure Note Donediliater, Image - [address] [place] [address] Ultrasound Report Signed Patient: Deysi Pfeiffer DMR#: [id number] : 1970Acct:[id number] Age/Sex: 54 / FADM Date: 05/03/24 Loc: HO.US Attending Dr: Anika Dennis PA-C Ordering Physician: Anika Dennis PA-C Date of Service: 05/03/24 Procedure(s): US venous duplex LE BI Accession Number(s): [id number] cc: Zev Sanders MD; Anika Dennis PA-C [...] by: Francis Connelly MD 2024 03:35 PM [facility] Dictated By: Francis Brannon MD Signed By: <Electronically signed by Francis Jaeger MDin OV> 05/03/24 1535 DD/ 1318 TD/TT: 05/03/24 1345 Magnetic Resonance Imaging Director: us [facility] External Provider CV VASC ULAR PROCEDURES Final Result [facility] IMAGING [address] [place] [address] documented in this encounter Visit Diagnoses Not on filedocumented in this encounter Additional Health Concerns Assessment Noted Time PHQ-9 Depression Total Score: 7 10/14/19 24 11:59 AM EDT documented as of this encounter Care Teams Customer Project Manager Relationship Specialty Start Date End Date Zev Sanders MD [address] [place] [address] PCP - General Internal Medicine 11/16/19 documented as of this encounter
--- OUTSIDE RECORDS SUMMARY | 2024-06-02 15:50 | XMS_ITS | Encounter Summary ---
Author Organization [facility] Address 75 [facility] [address], [place] [address] Care Team Providers Care Elevator Supervisor Name Role Phone Zev Sanders MD Primary Care Provider [phone] Reason for Referral * Imaging (Routine) - Authorized Specialty Diagnoses / Procedures Referred By Contac cassi Referred To Contact Radiology Diagnoses long-term (current) use of systemic steroids Procedures BONE DENSITY/DEXA (HIPS, PELVIS OR SPINE) Zev Sanders MD [address] [place] [address] Phone: tel: fax: [address] Phone: tel: fax: Referral ID Status Reason Start Date Expiration Date V isits Requested Visits Authorized [id number] Authorized 05/10/2024 05/10/2025 1 1 Reason for Visit * Reason Comments Follow-up HDF Encounter Details Date Type Department Care Team (Late st Contact Info) Description 05/10/2024 1:15 PM EST Office Visit [facility] CHC MED & PEDS [address] [place], [place] [phone] Zev Sanders MD [address] [place] [address] long-term (current) use of systemic steroids (Primary Dx); [...] was evaluated in the emergency department at [facility] on April 04, 2024 for an [...] test was performed last week at her cementer oil well's office. Patient came in to the office [...] Diagnoses and all orders for this visit: long-term (current) use of systemic steroids - BONE DENSITY/DEXA (HIPS, PELVIS OR SPINE); Future Asthma-chronic obstructive pulmonary disease overlap syndrome (CMS/HCC) Comments: On prednisone 5 mg daily DEXA scan ordered. Levalbuterol prescribed given h/o palpitation on albuterol. Advised to follow up w/ her cementer oil well. Orders: - levalbuterol (Xopenex) 0.63 MG/3ML nebulizer solution; Take 1 ampule by nebulization every 8 (eight) hours if needed for wheezing. 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
--- OUTSIDE RECORDS SUMMARY | 2024-06-02 15:50 | XMS_ITS | Encounter Summary ---
Author Organization [employer] Address 75 [facility] 7 [place] [address] Care Team Providers Care Manager Technology Name Role Phone Zev Sanders MD Primary Care Provider [phone] Reason for Visit * Reason Onset Date Comments chart prep 05/06/2024 Encounter Details Date Type Department Care Team ([facility] st Contact Info) Description 05/06/2024 Telephone [facility] CHC MED & PEDS [address] [place], [place] [phone] Zev Sanders MD [address] [place] [address] chart prep Social History Tobacco Use Types [...] Upcoming Encounters Date Type Department Care Team ([facility] st Contact Info) Description 07/01/2024 11:00 AM EDT Nurse Only [facility] MED & PEDS [address] [place] [address] 08/10/2024 2:00 PM EDT Office Visit [facility] MED & PEDS [address] [place] [address] Zev Sanders MD [address] [place] [address] documented as of this encounter Visit Diagnoses Not on filedocumented in this encounter Additional Health Concerns Assessment Noted Time PHQ-9 Depression Total Score: 7 10/14/19 24 11:59 AM EDT documented as of this encounter Care Teams Manager Technology Relationship Specialty Start Date End Date Zev Sanders MD [address] [place] [address] PCP - General Internal Medicine 11/16/19 documented as of this encounter
--- OUTSIDE RECORDS SUMMARY | 2024-06-02 15:50 | XMS_ITS | Encounter Summary ---
Author Organization [employer] Address [address] [place] [address] Care Team Providers Care Curtain Inspector Name Role Phone Zev Sanders MD Primary Care Provider [phone] Reason for Visit * Reason Comments Med Refill Encounter Details Date Type Department Care Team ([facility] Contact Info) Description 05/04/2024 Refill [facility] [address], [place] [phone] Zev Sanders MD [address] [place] [address] Chronic low back pain, unspecified back pain [...] 07/01/2024 11:00 AM EDT Nurse Only [facility] [address] [place] [address] 08/10/2024 2:00 PM EDT Office Visit [facility] [address] [place] [address] Zev Sanders MD [address] [place] [address] documented as of this encounter Visit Diagnoses Diagnosis Chronic low back pain, unspecified back pain laterality, unspecified whether sciatica present documented in this encounter Additional Health Concerns Assessment Noted Time PHQ-9 Depression Total Score: 7 10/14/19 24 11:59 AM EDT documented as of this encounter Care Teams Curtain Inspector Relationship Specialty Start Date End Date Zev Sanders MD [address] [place] [address] PCP - General Internal Medicine 11/16/19 documented as of this encounter
== END 2024-06-02 14:04 | disposition home or self-care (01) ==
PROVIDERS: PCP Internal Medicine; Visit Provider Physician Assistant
DX: S86.011A Strain of right Achilles tendon, initial encounter (principal)
CPT/HCPCS: 99203

== ENCOUNTER → 2024-06-02 13:16 | Outpatient (BNVA) | payer MEDICAID, SELFPAY | PROVIDERS: PCP Internal Medicine; Visit Provider Physician Assistant | DX: S86.011A Strain of right Achilles tendon, initial encounter (principal); S93.401A Sprain of unspecified ligament of right ankle, initial encounter; X58.XXXA Exposure to other specified factors, initial encounter; Y93.9 Activity, unspecified; Y92.9 Unspecified place or not applicable; Y99.9 Unspecified external cause status | CPT/HCPCS: 99212 ==

== ENCOUNTER 2024-06-19 11:28 | Emergency (ER) | payer MEDICAID, SELFPAY ==
[2024-06-19] VITALS (15 sets, daily range): BP systolic 93–119; BP diastolic 51–83; PULSE 79–153; RESP 13–20; TEMP 36.3–37.4; O2SAT 91–99; BMI 20.7
--- NOTE | 2024-06-19 | ECG_ITS ---
Test Reason : tachycardia Blood Pressure : */* mmHG Vent. Rate : 149 BPM Atrial Rate : 149 BPM P-R Int : 186 ms QRS Dur : 72 ms QT Int : 226 ms P-R-T Axes : * 49 262 degrees QTcB Int : 355 ms Possible Atypical atrial flutter/atrial tachycardia with 2:[address] & T wave abnormality, consider inferolateral ischemia Abnormal ECG When compared with ECG of 08-Apr-2024 08:48, T wave inversion no longer evident in Anterior leads Referred By: Ace Briones Electronically Signed By: SHANITA HAIRSTON MD
--- NOTE | ~2024-06-19 | CT_ITS ---
CLINICAL HISTORY: sob hypoxia, labored breathing CT angiography chest with contrast. 3D Postprocessing. Comparison: None Findings: There is no cardiomegaly, heart strain or evidence of pulmonary embolism There is dilation of the pulmonary arterial trunk consistent with pulmonary arterial hypertension. No mediastinal adenopathy or significant pericardial effusion. There is severe diffuse centrilobular emphysema. Airway thickening noted ill-defined patchy right basilar densities. No effusion. No pneumothorax. Regions of endobronchial plugging are present predominantly on the right. No acute osseous abnormality. The visualized upper abdomen is unremarkable. Impression: Probable multifocal right lower lobe pneumonia/bronchitis with endobronchial plugging. No evidence of pulmonary embolism. Dilation of the pulmonary arteries centrally consistent with pulmonary arterial hypertension. This document has been electronically signed by: Joel Villalta MD on 06/19/2024 16:55:49
--- NOTE | ~2024-06-19 | CT_ITS ---
CLINICAL HISTORY: abd pain flank pain w hypotension CT abdomen and pelvis with contrast Comparison: None Findings: Multifocal right basilar consolidation and airway thickening. See details on chest CT. The liver, spleen, splenule, adrenal glands, pancreas and kidneys demonstrate no acute or suspicious abnormality. The gallbladder is absent. No bowel obstruction. Mild fecal retention. No free air, free fluid abscess or adenopathy. Uterus and adnexa are unremarkable. The bladder is partially distended without focal abnormality. Moderately severe atherosclerotic disease of the aorta. Impression: No acute process within the abdomen or pelvis. Fecal retention within the colon. No bowel obstruction or free air. Several incidental findings as detailed This document has been electronically signed by: Joel Villalta MD on 06/19/2024 16:58:27
--- NOTE | ~2024-06-19 | CT_ITS ---
CLINICAL HISTORY: severe headache feels atypical CT head without contrast Comparison: None Findings: No intra-axial mass, midline shift, hydrocephalus, or acute hemorrhage. No significant atrophy-like change or white matter disease. There is opacification of the left maxillary sinuses. The orbits are within normal limits. There is no acute fracture. IMPRESSION: 1. No acute intracranial findings. This document has been electronically signed by: Joel Villalta MD on 06/19/2024 16:50:29
--- NOTE | 2024-06-19 12:03 | ED.GENADULT ---
HPI - General Adult General Chief complaint: Dyspnea Stated complaint: SOB RIB PAIN Time Seen by Provider: 06/19/24 11:30 Source: patient, family and EMS Mode of arrival: EMS Limitations: no limitations History of Present Illness ED Provider: JAYNE Briones HPI narrative: This is a 54-year-old female past medical history significant for sinus tach, current smoker, COPD on 2 L nasal cannula, hypertension, GERD, nonalcoholic steatohepatitis asthma who presents to the emergency department with complaints of shortness of breath and right-sided rib pain with deep breathing. Ongoing for the past few days worsening. He tells me she overall feels very unwell reporting subjective fevers and chills. Also reporting a throbbing headache which does not feel like her typical. She states it is diffuse in nature however worse in the back of the head. Denies sick contacts, headache, vision changes, dizziness, weakness, cough, sore throat, neck pain, chest pain, nausea, vomiting, diarrhea, abdominal pain. Related Data Home Medications ?Medication ?Instructions ?Recorded ?Confirmed mirtazapine 45 mg tablet 45 mg PO BEDTIME 03/27/20 04/06/24 quetiapine 100 mg tablet (Seroquel) 100 mg PO BEDTIME 03/27/20 04/06/24 lisinopril 10 mg tablet 1 tab PO DAILY 09/29/20 04/06/24 pregabalin 150 mg capsule 150 mg PO BID 11/13/20 04/06/24 esomeprazole magnesium 40 mg 40 mg PO DAILY@0630 10/16/21 04/06/24 capsule,delayed release cholecalciferol (vitamin D3) 50 50 mcg PO DAILY 12/19/21 04/06/24 mcg (2,000 unit) tablet tiotropium bromide 2.5 2 puff inhalation DAILY 04/06/24 04/06/24 mcg/actuation mist for inhalation (Spiriva Respimat) Previous Rx's ?Medication ?Instructions ?Recorded naloxone 4 mg/actuation nasal 4 mg intranasal Q2M PRN opioid 09/08/23 spray (Narcan) overdose #2 ea albuterol sulfate 2.5 mg/3 mL 2.5 mg (3 mL) inhalation Q4-6H PRN 10/06/23 (0.083 %) solution for nebulization for wheezing #180 mL budesonide-formoterol HFA 160 2 puff inhalation BID #10.2 grams 03/01/24 mcg-4.5 mcg/actuation aerosol inhaler (Symbicort) montelukast 10 mg tablet 10 mg PO BEDTIME #30 tabs 04/02/24 benzonatate 100 mg capsule 100 mg PO TID PRN Cough #20 caps 04/08/24 ibuprofen 600 mg tablet 600 mg PO Q8H PRN fever or pain 05/20/24 #30 tabs prednisone 5 mg tablet 5 mg PO DAILY #30 tabs 05/31/24 ipratropium 0.5 mg-albuterol 3 mg 3 ml inhalation Q6-8H PRN for 06/02/24 (2.5 mg base)/3 mL nebulization wheezing #360 mL soln albuterol sulfate 90 mcg/actuation 2 puff inhalation QID PRN for 06/09/24 aerosol inhaler (Ventolin HFA) wheezing #18 grams azithromycin 250 mg tablet 250 mg PO DAILY 4 days #4 tabs 06/19/24 cefpodoxime 200 mg tablet 200 mg PO Q12H #14 tabs 06/19/24 oxycodone 5 mg tablet 5 mg PO TID PRN pain 30 days #90 06/19/24 tabs Allergies Allergy/AdvReac Type Severity Reaction Status Date / Time Penicillins [PENICILLINS] Allergy Severe RASH Verified 06/19/24 11:53 seafood Allergy Rash Verified 06/19/24 11:53 Review of Systems Review of Systems: Yes all other systems are reviewed and are negative PMFSH Past Medical History Attestation statement: The following information was validated with the patient. Source: old records reviewed and nursing notes reviewed Medical History Current non-smoker but past smoking history unknown Respiratory failure with hypoxia COPD exacerbation Pre-op examination History of OCD (obsessive compulsive disorder) History of panic attacks Anxiety and depression Radiculopathy, lumbar region HTN (hypertension) Sacroiliitis COPD (chronic obstructive pulmonary disease) Asthma Allergic rhinitis Disc degeneration, lumbar Surgical History History of surgery History of appendectomy Hx of tonsillectomy Status post excision of lipoma History of tubal ligation Hx of excision of mass History of surgery History of laparoscopic cholecystectomy History of esophagogastroduodenoscopy (EGD) History of umbilical hernia repair History of incision and drainage Family History Family History Family/Other Cervical cancer Family/Other Stomach cancer Social History Social History Household Members: Significant Other and Family Household Members Other:: grandson Housing: House Do you presently have visiting nurse or other home services: No Alcohol intake: never Comment: Significant other bedside Patient Tobacco Use Status: Former Tobacco user Tobacco use type: Cigarette Smoked in Last 30 Days: No Use of substances other than those prescribed or required for medical reasons: No Substance Use Type: Marijuana Advance Directives: Yes Advance Directives on File: Yes Advance Directives Date on File: 04/09/24 Do you have a plan to hurt others: No Plan Patient : No service: No Current occupational status: unemployed Sexual orientation: Straight/Heterosexual Gender identity: Female Physical Exam ED Vital Signs: Vital Signs - 24 hr 06/19/24 11:50 06/19/24 12:45 06/19/24 12:54 Temperature 98.8 F Pulse Rate 99 153 H 151 H Pulse Rate [Left Apical] Respiratory Rate 16 16 16 Blood Pressure 93/51 L 100/67 Pulse Oximetry 91 L 95 Oxygen Delivery Method Nasal Cannula Nasal Cannula Oxygen Flow Rate 3 06/19/24 13:17 06/19/24 13:29 06/19/24 13:30 Temperature 99.3 F 99.3 F Pulse Rate 152 H 148 H 147 H Pulse Rate [Left Apical] Respiratory Rate 16 18 16 Blood Pressure 111/66 119/83 101/65 Pulse Oximetry 99 94 94 Oxygen Delivery Method Nasal Cannula Nasal Cannula Nasal Cannula Oxygen Flow Rate 3 3 3 06/19/24 13:44 06/19/24 14:08 06/19/24 14:11 Temperature 99.2 F 98.2 F Pulse Rate 139 H 144 H Pulse Rate [Left Apical] 153 H Respiratory Rate 16 15 16 Blood Pressure 106/74 116/66 Pulse Oximetry 95 96 Oxygen Delivery Method Nasal Cannula Nasal Cannula Oxygen Flow Rate 3 4 06/19/24 14:13 06/19/24 14:59 06/19/24 16:19 Temperature 98.1 F 98.6 F Pulse Rate 142 H 142 H 141 H Pulse Rate [Left Apical] Respiratory Rate 16 16 Blood Pressure 116/66 93/56 L 109/76 Pulse Oximetry 96 95 Oxygen Delivery Method Nasal Cannula Room Air Oxygen Flow Rate 4 06/19/24 17:19 06/19/24 18:31 Temperature 97.3 F Pulse Rate 79 80 Pulse Rate [Left Apical] Respiratory Rate 16 13 Blood Pressure 113/76 103/68 Pulse Oximetry 98 98 Oxygen Delivery Method Nasal Cannula Nasal Cannula Oxygen Flow Rate 4 3 BMI result Body Mass Index 20.7 vss Appearance: Alert.? Oriented X3.? Patient in [id number] acute respiratory distress Head: Normocephalic, atraumatic, no step-offs or deformities Eyes: Pupils equal, round and reactive to light.? Neck: Normal inspection.? Neck supple.? CVS: Normal heart rate and rhythm.? Pulses normal.? Respiratory: [id number] acute respiratory distress.? Breath sounds diminished w/ fait expiratory wheezing .? Abdomen: Soft and nontender.? Skin: Skin warm and dry.? Normal skin color.? Normal skin turgor.? Extremities: No lower extremity edema.? No calf ttp. 4/5 strength to bilateral upper and lower extremities Back: No midline tenderness, no C-spine tenderness, full range of motion, no CVA tenderness bilaterally Neuro: Oriented X 3.? No motor deficit.? No sensory deficit. CN 2-12 intact Course Reevaluation(s) Reevaluation #1: At this time infection suspected Now reporting UTI sx urinary fequency, urgency, burning and flank pain b/l w/ some suprapubic discomfort Time: 12:32 Reevaluation #2: CBC slight leukocytosis with neutrophil predominance. Chemistry unremarkable. Normal lactic acid. Troponin negative, EKG nonischemic. D-dimer positive. CT abdomen and pelvis, head and CTA pending. Urine pending Sign out to [facility] Time: 16:30 Reevaluation #3: Patient received in sign-out at change of shift pending imaging and disposition. The patient's CT angiography shows multifocal pneumonia worse in the right lower lobe with mucus plugging. The patient's CT abdomen pelvis shows constipation but no other acute findings. I discussed these findings with the patient. She was frustrated that she has pneumonia as she was diagnosed with a 2 months ago. She was already received ceftriaxone, I added azithromycin to cover atypical pneumonias. When I was discussing the patient's results with her, her heart rate was 148 on the monitor after 20 or 30 seconds it dropped down into the 80s and appeared sinus. I recommended admission to the patient given her at advanced COPD, abnormal vital signs and multi lobar pneumonia. The patient is not keen to stay in the hospital. She was willing to stay for azithromycin and then will discuss disposition at that time if she will be admitted or leave against medical advice Time: 17:14 Additional Reevaluation(s): 18:37 Discussed with the patient again, she wishes to leave against medical advice. I again strongly encouraged that she stay in the hospital. With her history of end-stage COPD she was and a high risk for decompensation. I will still send antibiotics to her pharmacy for her to continue taking. She was given return precautions, especially fevers, chills, worsening chest pain, worsening shortness of breath to return directly to the emergency department Medications Administered Generic Name Dose Route Start Last Admin Trade Name Freq PRN Reason Stop Dose Admin Azithromycin 500 mg/ Sodium 250 mls @ 125 mls/hr 06/19/24 17:05 06/19/24 17:15 Chloride IV 06/19/24 19:04 125 mls/hr ONCE ONE Administration Discontinued Medications Generic Name Dose Route Start Last Admin Trade Name Freq PRN Reason Stop Dose Admin Ceftriaxone Sodium 1 gm 06/19/24 12:21 06/19/24 12:39 Ceftriaxone Sodium 1 Gm Vial IVPUSH 06/19/24 12:22 1 gm ONCE ONE Administration Levalbuterol HCl 1.25 mg/ 0 mg 06/19/24 12:47 06/19/24 12:51 Ipratropium [place] 0.5 mg INHALE 06/19/24 12:48 1.25 dose ONCE ONE Administration Sodium Chloride 1,592.1 mls @ 1,592.1 mls/hr 06/19/24 12:21 06/19/24 14:10 Ns 30 ml/kg infuse over 1 hr (1592.1 ml) 06/19/24 13:20 Infused IV Infusion .Q1H STA Ketorolac Tromethamine 30 mg 06/19/24 12:29 06/19/24 12:48 Ketorolac Tromethamine 15 Mg/Ml Vial IVPUSH 06/19/24 12:30 30 mg ONCE ONE Administration Morphine Sulfate 4 mg 06/19/24 12:49 06/19/24 13:10 Morphine Sulfate 4 Mg/Ml Cartridge IVPUSH 06/19/24 12:50 4 mg ONCE ONE Administration Protocol Medical Decision Making Medical Decision Making [facility] Narrative: 1212 54-year-old female presents with complaints of shortness of breath, subjective fevers and chills and feeling overall unwell Physical exam [id number] respiratory distress. Faint expiratory wheezing. Patient appears unwell. History and physical exam concerning for bronchitis versus viral illness versus pneumonia versus PE. Unlikely ACS, dissection. Will rule out metabolic derangements, urinary infection. Headache could be secondary to virus/typical headache unlikely meningitis, encephalitis. Plan labs, imaging, urine Differential Diagnosis Differential Diagnoses: The differential diagnosis associated with the presentation includes (History and physical exam concerning for bronchitis versus viral illness versus pneumonia versus PE. Unlikely ACS, dissection. Will rule out metabolic derangements, urinary infection.) Admission/Observation Consideration of admission/observation: Escalation of care including admission/observation considered (chaz ) Lab Data [facility] Lab Attestation statement: I reviewed the patient's lab results. 06/19/24 12:12 06/19/24 12:12 Labs: Lab Results 06/19/24 06/19/24 06/19/24 Range/Units 12:12 12:40 16:26 WBC 13.0 H (4.8-10.8) X10*3/uL RBC 4.53 (4.20-5.50) X10*6/uL Hgb 13.2 (12.0-16.0) g/dl Hct 39.4 (37.0-47.0) % MCV 87.0 (80.0-98.0) fL MCH 29.1 (27.0-33.0) pg MCHC 33.5 (31.0-35.0) g/dl RDW 14.0 (11.0-16.0) % Plt Count 228 (160-400) X10*3/uL MPV 9.7 (9.4-12.3) fL Immature Gran % (Auto) 0.5 H (0.0-0.4) % Neut % (Auto) 84.1 H (45-73) % Lymph % (Auto) 8.5 L (20-40) % [place] % (Auto) 5.4 (2-11) % Eos % (Auto) 1.1 (0-4) % Baso % (Auto) 0.4 (0-2) % Lymph # (Auto) 1.1 L (1.2-4.9) X10*3/uL [place] # (Auto) 0.7 (0.1-1.2) X10*3/uL Eos # (Auto) 0.1 (0.0-0.4) X10*3/uL Baso # (Auto) 0.1 (0.0-0.2) X10*3/uL Abs Immat Gran (auto) 0.06 H (0.00-0.03) X10*3/uL Absolute Neuts (auto) 11.0 H (2.0-8.3) x10*3/uL Absolute Nucleated RBC 0.000 (0.0-0.012) X10*3/uL Nucleated RBC % (auto) 0.0 (0.0-0.2) /100WBC PT 14.3 H D (10.9-12.4) SEC INR 1.2 H (0.9-1.1) D-Dimer High Sensitivty 373 NG/ML Sodium 136 (135-145) mmol/L Potassium 3.7 D (3.3-5.1) mmol/L Chloride 101 (96-108) mmol/L Carbon Dioxide 24 (22-29) mmol/L Anion Gap 15 (12-20) BUN 12 (9-16) mg/dL Creatinine 0.59 (0.5-1.4) mg/dL Estim Creat Clear Calc 90.1 Estimated GFR > 60 Random Glucose 101 (60-115) mg/dL Lactic Acid 0.9 (0.5-2.0) mmol/L Calcium 8.8 (8.4-10.2) mg/dL Magnesium 1.7 (1.6-2.6) mg/dL Total Bilirubin 0.5 (0.0-1.0) mg/dL AST 18 (5-31) U/L ALT 6 (0-31) U/L Alkaline Phosphatase 84 (39-117) U/L Troponin I High Sens < 2.7 (<3.5-17.0) ng/L Total Protein 7.1 (6.5-8.0) g/dL Albumin 3.6 (3.5-5.0) g/dL TSH 0.90 (0.32-4.0) uIU/mL Urine Color Yellow Urine Appearance Clear Urine pH 5.5 (5.0-9.0) Ur Specific [place] >= 1.030 H (1.005-1.025) Urine Protein Negative (Neg-Trace) mg/dL Urine Glucose (UA) Negative (Negative) mg/dL Urine Ketones 15 (Negative) mg/dL Urine Blood Negative (Negative) Urine Nitrite Negative (Negative) Ur Leukocyte Esterase Negative (Negative) Influenza Type A (PCR) NEGATIVE (Negative) Influenza Type B (PCR) NEGATIVE (Negative) RSV RNA Qual (PCR) NEGATIVE (Negative) SARS-CoV-2 RNA (RT-PCR) NEGATIVE (Negative) Independent Interpretation I performed an independent interpretation of an: EKG and CT Scan Radiology Impression Discussion of test interpretation with radiology: I have reviewed the radiologist's reading. External Record Review External record reviewed: Inpatient record, Office record, Outpatient record, Prior outpatient labs, Prior outpatient radiology, Primary care record and Outside ED record Chronic Conditions Patient?s care impacted by: Other (see hpi ) Core Measures AMI core measures followed: No Critical Care Time Critical Care Time Critical Care Time: Yes Total Critical Care Time: 45 Attestation: I attest to this time spent taking care of the patient, obtaining history, physical, reviewing labs, imaging, treatment of patients condition +/- specialist/hospitalist consult +/- procedure Discharge Plan Discharge Clinical Impression: Headache, UTI symptoms, Community acquired pneumonia Patient Disposition: Left Against Medical Advice Instructions: Community Acquired Pneumonia (ED) Additional Instructions: You are leaving against medical advice. Your CT scan shows multifocal pneumonia of the right lower lobe which is the area of your discomfort. Your vital signs have improved, but I recommended admission for IV antibiotics. Take both antibiotics as prescribed. Return to the ER immediately for any new or worsening symptoms or if you are not improving Prescriptions: New azithromycin 250 mg tablet 250 mg PO DAILY 4 Days Qty: 4 0RF Rx Instructions: start on day 2 of therapy cefpodoxime 200 mg tablet 200 mg PO Q12H Qty: 14 0RF Rx Instructions: must administer with a meal/food No Action albuterol sulfate 2.5 mg /3 mL (0.083 %) solution for nebulization 2.5 mg inhalation Q4-6H PRN (Reason: for wheezing) Qty: 180 2RF budesonide-formoterol [Symbicort] 160-4.5 mcg/actuation HFA aerosol inhaler 2 puff inhalation BID Qty: 10.2 3RF montelukast 10 mg tablet 10 mg PO BEDTIME Qty: 30 3RF prednisone 5 mg tablet 5 mg PO DAILY Qty: 30 3RF ipratropium-albuterol 0.5 mg-3 mg(2.5 mg base)/3 mL solution for nebulization 3 ml inhalation Q6-8H PRN (Reason: for wheezing) Qty: 360 1RF albuterol sulfate [Ventolin HFA] 90 mcg/actuation HFA aerosol inhaler 2 puff inhalation QID PRN (Reason: for wheezing) Qty: 18 3RF oxycodone 5 mg tablet 5 mg PO TID PRN (Reason: pain) 30 Days Qty: 90 0RF Rx Instructions: Partial Fill upon patient request. lisinopril 10 mg tablet 1 tab PO DAILY pregabalin 150 mg Capsule 150 mg PO BID Spiriva Respimat 2.5 mcg/actuation mist 2 puff inhalation DAILY benzonatate 100 mg Capsule 100 mg PO TID PRN (Reason: Cough) Qty: 20 0RF quetiapine [Seroquel] 100 mg tablet 100 mg PO BEDTIME mirtazapine 45 mg tablet 45 mg PO BEDTIME esomeprazole magnesium 40 mg capsule,delayed release(DR/EC) 40 mg PO DAILY@0630 cholecalciferol (vitamin D3) 50 mcg (2,000 unit) tablet 50 mcg PO DAILY naloxone [Narcan] 4 mg/actuation spray,non-aerosol 4 mg intranasal Q2M PRN (Reason: opioid overdose) Qty: 2 0RF Rx Instructions: spray 1 dose into ONE nostril; alternate nostrils w each dose until help arrives ibuprofen 600 mg tablet 600 mg PO Q8H PRN (Reason: fever or pain) Qty: 30 0RF Stand Alone Forms: Against Medical Advice Print Language: Georgian
[2024-06-19 12:17] LABS: MANUAL DIFF FLAG NO
[2024-06-19 12:19] LABS: Basophils Absolute Auto 0.1 X10*3/uL (0.0-0.2); Basophils Percent Auto 0.4 % (0-2); Eosinophils Absolute Auto 0.1 X10*3/uL (0.0-0.4); Eosinophils Percent Auto 1.1 % (0-4); Hematocrit 39.4 % (37.0-47.0); Hemoglobin 13.2 g/dl (12.0-16.0); Imm Gran Abs Auto 0.06 X10*3/uL (0.00-0.03); Imm Gran Pct Auto 0.5 % (0.0-0.4); Lymphocytes Absolute Auto 1.1 X10*3/uL (1.2-4.9); Lymphocytes Percent Auto 8.5 % (20-40); Mean Corpuscular HGB Conc 33.5 g/dl (31.0-35.0); Mean Corpuscular Hemoglobin 29.1 pg (27.0-33.0); Mean Platelet Volume 9.7 fL (9.4-12.3); Monocytes Absolute Auto 0.7 X10*3/uL (0.1-1.2); Monocytes Percent Auto 5.4 % (2-11); Neutrophils Percent Auto 84.1 % (45-73); Platelet Count 228 X10*3/uL (160-400); Red Blood Count 4.53 X10*6/uL (4.20-5.50)
[2024-06-19 12:24] LABS: INTERNATIONAL NORM RATIO 1.2 (0.9-1.1); Prothrombin Time 14.3 SEC (10.9-12.4)
[2024-06-19] MEDS: cefTRIAXone sodium 1 GM VIAL IVPUSH (12:39)
[2024-06-19] MEDS: Ketorolac Tromethamine 15 MG/ML VIAL 30 MG IVPUSH (12:48)
[2024-06-19 12:51] LABS: Alanine Aminotransferase 6 U/L (0-31); Albumin Level 3.6 g/dL (3.5-5.0); Alkaline Phosphatase 84 U/L (39-117); Anion Gap 15 (12-20); Aspartate Amino Transferase 18 U/L (5-31); Bilirubin Total 0.5 mg/dL (0.0-1.0); Blood Urea Nitrogen 12 mg/dL (9-16); Calcium 8.8 mg/dL (8.4-10.2); Carbon Dioxide 24 mmol/L (22-29); Chloride 101 mmol/L (96-108); Creatinine Clr Calc Pharmacy 90.1; Estimated Glomerular Filt Rate > 60; Glucose Random 101 mg/dL (60-115); Magnesium 1.7 mg/dL (1.6-2.6); Potassium 3.7 mmol/L (3.3-5.1); Sodium 136 mmol/L (135-145); Total Protein 7.1 g/dL (6.5-8.0)
[2024-06-19] MEDS: levalbuterol HCL 1.25 MG, Ipratropium Bromide 0.5 MG INHALE (12:51)
[2024-06-19 12:54] LABS: Troponin-I High Sensitivity < 2.7 ng/L (<3.5-17.0)
[2024-06-19 13:06] LABS: D Dimer High Sensitivity 373 NG/ML; Influenza A PCR NEGATIVE (Negative); Influenza B PCR NEGATIVE (Negative); Resp Syncy Virus RNA Qual PCR NEGATIVE (Negative); SARS COV2 PCR INHOUSE NEGATIVE (Negative)
[2024-06-19] MEDS: Morphine Sulfate 4 MG/ML CARTRIDGE IVPUSH (13:10)
[2024-06-19 13:11] LABS: Lactic Acid 0.9 mmol/L (0.5-2.0)
--- NOTE | 2024-06-19 13:18 | PC.NURSE ---
patient a&ox3, iv previously inserted by ems, labs drawn- pt difficult stick as her veins were delicate and kept blowing, nasal swab performed, personnel monitor applied, lungs in/ex wheezing, cough, c/o rt rib pain 10/10 pain. upon pts arrival she was hypotensive and her hr was wnl, IV fluids were started as were IV abx, pt became tachycardic, ekg was performed. pt medicated for pain, call umaña within reach, plan of care ongoing
--- NOTE | 2024-06-19 13:40 | PC.NURSE ---
ivf continue to run slowly, pressure bag applied
--- NOTE | 2024-06-19 16:27 | PC.NURSE ---
patient a&ox3, c/o 09/07 pain, pt ambulated to bathroom with O2 which she is O2 dependent at home 3-4L, urine obtained, pt remains sinus tach on monitor, awaiting radiology results, call umaña within reach, plan of care ongoing
[2024-06-19 16:35] LABS: Appearance Urine Clear; Color Urine Yellow; Glucose Urine UA Negative (Negative); Leukocyte Esterase Urine Negative (Negative); Nitrite Urine Negative (Negative); PH 5.5 (5.0-9.0); Specific Gravity - Urine >= 1.030 (1.005-1.025); Urine Blood Negative (Negative); Urine Ketones 15 mg/dL (Negative); Urine Protein Negative (Neg-Trace)
[2024-06-19] MEDS: Azithromycin 500 MG in 0.9 % Sodium Chloride 250 ML 125 MG IV (17:15)
[2024-06-19] MEDS: methylPREDNISolone Sod Succ 125 MG/2 ML VIAL IVPUSH (19:49)
== END 2024-06-19 22:02 | disposition left against medical advice (07) ==
PROVIDERS: Physician Assistant; Emergency Provider Emergency Medicine; PCP Internal Medicine
DX: R51.9 Headache, unspecified (principal); N39.0 Urinary tract infection, site not specified; J18.9 Pneumonia, unspecified organism; Z03.818 Encounter for observation for suspected exposure to other biological agents ruled out; I10 Essential (primary) hypertension; J45.909 Unspecified asthma, uncomplicated; Z53.29 Procedure and treatment not carried out because of patient's decision for other reasons; Z87.891 Personal history of nicotine dependence; Z79.899 Other long term (current) drug therapy
CPT/HCPCS: 0241U; 36415; 70450; 71275; 74177; 80053; 81003; 83605; 83735; 84443; 84484; 85025; 85379; 85610; 87040; 93005; 94640; 96361; 96374; 96375; 99285; J0456; J0696; J1885; J2270; J2919

== ENCOUNTER → 2024-06-19 12:29 | Outpatient (BNV) | payer MEDICAID, SELFPAY | PROVIDERS: Emergency Provider Emergency Medicine; PCP Internal Medicine; Visit Provider Radiology Vascular & Interventional Radiology | DX: K56.41 Fecal impaction (principal); R06.02 Shortness of breath; R09.02 Hypoxemia; R51.9 Headache, unspecified | CPT/HCPCS: 70450; 71275; 74177 ==

== ENCOUNTER → 2024-06-19 13:18 | Outpatient (BNV) | payer MEDICAID, SELFPAY | PROVIDERS: Emergency Provider Emergency Medicine; PCP Internal Medicine; Visit Provider Internal Medicine Cardiovascular Disease | DX: R94.31 Abnormal electrocardiogram [ECG] [EKG] (principal); R00.0 Tachycardia, unspecified | CPT/HCPCS: 93010 ==

== ENCOUNTER 2024-06-30 11:30 | Observation (INO) | payer MEDICAID, SELFPAY ==
[2024-06-30] VITALS (10 sets, daily range): BP systolic 115–148; BP diastolic 56–91; PULSE 64–98; RESP 14–22; TEMP 36.4–36.9; O2SAT 95–98; BMI 20.4
--- NOTE | ~2024-06-30 | XR_ITS ---
EXAMINATION: XR CHEST 1 VIEW HISTORY: chest pain COMPARISON: Comparison is made with the prior examination dated 04/06/2024. FINDINGS: A single AP portable view of the chest performed at 12:21 PM is submitted. The lungs remain hyperinflated with mild increased interstitial markings likely related to emphysema. No new focal airspace opacity is seen. There is no pleural effusion, pneumothorax, or pulmonary vascular congestion. The heart is normal in size. The bones are intact. XR/XR chest 1V IMPRESSION: COPD. No acute cardiopulmonary abnormality. Electronically signed by: Rodriguez Damon MD 06/30/2024 12:42 PM EDT
--- NOTE | 2024-06-30 11:39 | ECG_ITS ---
Test Reason : CP SOB Blood Pressure : */* mmHG Vent. Rate : 70 BPM Atrial Rate : 70 BPM P-R Int : 132 ms QRS Dur : 76 ms QT Int : 410 ms P-R-T Axes : 83 52 72 degrees QTcB Int : 442 ms Normal sinus rhythm Septal infarct , age undetermined Abnormal ECG When compared with ECG of 19-Jun-2024 13:18, Vent. rate has decreased by 79 bpm Septal infarct is now Present ST no longer depressed in Anterior leads T wave inversion no longer evident in Inferior leads T wave inversion no longer evident in Lateral leads Referred By: Demetrius Valdivia Electronically Signed By: PEDRO CAMPOS
--- NOTE | 2024-06-30 11:41 | ED.SOB ---
HPI - SOB/Dyspnea General Chief Complaint: Dyspnea Stated Complaint: SOB x1 day, CPAP, mag, duoneb, solumedrol given Time Seen by Provider: 06/30/24 11:39 Source: patient and EMS Mode of arrival: EMS History of Present Illness HPI Narrative: This is a 54 years old female with a history of COPD O2 dependent, history of hypertension presented to the emergency department via ambulance in respiratory distress she was given by the cloth weaver Solu-Medrol, magnesium as well as she was placed on BiPAP by the ambulance. MD elicited complaint: shortness of breath and cough Pertinent past history: COPD Onset (ago): day(s) (1) Timing: constant Severity: severe Exacerbating factors: nothing Relieving factors: nothing Known history of: COPD Associated symptoms: denies other symptoms Related Data Home oxygen amount: 2 liters Home Medications ?Medication ?Instructions ?Recorded ?Confirmed mirtazapine 45 mg tablet 45 mg PO BEDTIME 03/27/20 06/30/24 quetiapine 100 mg tablet (Seroquel) 100 mg PO BEDTIME 03/27/20 06/30/24 lisinopril 10 mg tablet 10 mg PO DAILY 09/29/20 06/30/24 pregabalin 150 mg capsule 150 mg PO BID 11/13/20 06/30/24 esomeprazole magnesium 40 mg 40 mg PO BEDTIME 10/16/21 06/30/24 capsule,delayed release cholecalciferol (vitamin D3) 50 50 mcg PO DAILY 12/19/21 06/30/24 mcg (2,000 unit) tablet budesonide-formoterol HFA 160 2 puff inhalation BID 06/30/24 06/30/24 mcg-4.5 mcg/actuation aerosol inhaler (Symbicort) tiotropium bromide 2.5 2 puff inhalation DAILY 06/30/24 06/30/24 mcg/actuation mist for inhalation (Spiriva Respimat) Previous Rx's ?Medication ?Instructions ?Recorded naloxone 4 mg/actuation nasal 4 mg intranasal Q2M PRN opioid 09/08/23 spray (Narcan) overdose #2 ea montelukast 10 mg tablet 10 mg PO BEDTIME #30 tabs 04/02/24 ibuprofen 600 mg tablet 600 mg PO Q8H PRN fever or pain 05/20/24 #30 tabs prednisone 5 mg tablet 5 mg PO DAILY #30 tabs 03/03/25 ipratropium 0.5 mg-albuterol 3 mg 3 ml inhalation Q6-8H PRN for 06/02/24 (2.5 mg base)/3 mL nebulization wheezing #360 mL soln albuterol sulfate 90 mcg/actuation 2 puff inhalation QID PRN for 06/09/24 aerosol inhaler (Ventolin HFA) wheezing #18 grams oxycodone 5 mg tablet 5 mg PO TID PRN pain 30 days #90 06/19/24 tabs Allergies Allergy/AdvReac Type Severity Reaction Status Date / Time Penicillins [PENICILLINS] Allergy Severe RASH Verified 06/30/24 11:44 seafood Allergy Rash Verified 06/30/24 11:44 Review of Systems Constitutional: Constitutional: Reports no additional constitutional complaints Cardiovascular: Cardiovascular: Reports no additional cardiovascular complaints [facility] Past Medical History Attestation statement: The following information was validated with the patient. Medical History Current non-smoker but past smoking history unknown Respiratory failure with hypoxia COPD exacerbation Pre-op examination History of OCD (obsessive compulsive disorder) History of panic attacks Anxiety and depression Radiculopathy, lumbar region HTN (hypertension) Sacroiliitis COPD (chronic obstructive pulmonary disease) Asthma Allergic rhinitis Disc degeneration, lumbar Surgical History History of surgery History of appendectomy Hx of tonsillectomy Status post excision of lipoma History of tubal ligation Hx of excision of mass History of surgery History of laparoscopic cholecystectomy History of esophagogastroduodenoscopy (EGD) History of umbilical hernia repair History of incision and drainage Family History Family History Family/Other Cervical cancer Family/Other Stomach cancer Social History Social History Household Members: Significant Other and Family Household Members Other:: grandson Housing: House Do you presently have visiting nurse or other home services: No Alcohol intake: never Comment: Significant other bedside Patient Tobacco Use Status: Former Tobacco user Tobacco use type: Cigarette Substance Use Type: Marijuana Advance Directives: Yes Advance Directives on File: Yes Advance Directives Date on File: 04/09/24 service: No Current occupational status: unemployed Sexual orientation: Straight/Heterosexual Gender identity: Female Physical Exam Vital Signs: Vital Signs: Last Vital Signs Temp 97.9 F 06/30/24 15:01 Pulse 80 06/30/24 15:01 Resp 18 06/30/24 15:01 BP 115/71 06/30/24 15:01 Pulse Ox 98 06/30/24 15:01 O2 Del Method Nasal Cannula 06/30/24 15:01 O2 Flow Rate 2 06/30/24 15:01 Oxygen Flow Rate 3.5 06/30/24 11:35 BMI result Body Mass Index 20.4 On examination received in moderate distress Const: Nutritional Appearance: average body habitus Orientation/consciousness: oriented to person and patient oriented x3 HEENT: Head: Yes normal to inspection Ears: hearing grossly normal bilaterally Neck: Neck: Yes normal visual inspection and Yes full ROM Chest: Chest palpation & inspection: normal inspection of the chest Resp: Effort & Inspection: labored Auscultation: wheezes Cardio: Jugular venous distension: no JVD Rate: regular rate Rhythm: regular rhythm GI: Inspection: Yes normal to inspection Palpation (GI): Soft to palpation and not firm Percussion: Yes normal to percussion Auscultation: normal bowel sounds Skin: General skin exam: no rashes or lesions noted and elasticity normal Neuro: General: oriented to person and patient oriented x3 Course Reevaluation(s) Reevaluation #1: doing better on reexam will need admission Time: 14:31 Medications Administered Discontinued Medications Generic Name Dose Route Start Last Admin Trade Name Freq PRN Reason Stop Dose Admin Albuterol Sulfate 5 mg/ 0 mg 06/30/24 11:44 06/30/24 11:48 Albuterol/Ipratropium 3 ml INHALE 06/30/24 11:45 1 each ONCE ONE Administration Medical Decision Making Medical Decision Making MDM Narrative: Patient is here complaining of shortness of breath on CPAP by the cloth weaver we will do a chest x-ray labs and reassess Differential Diagnosis Differential Diagnoses: The differential diagnosis associated with the presentation includes COPD exacerbation/pneumonia/pneumothorax Admission/Observation Consideration of admission/observation: Escalation of care including admission/observation considered Lab Data [facility] Lab Attestation statement: I reviewed the patient's lab results. 06/30/24 11:42 06/30/24 11:42 Labs: Lab Results 06/30/24 06/30/24 06/30/24 Range/Units 11:42 11:48 12:41 WBC 9.6 (4.8-10.8) X10*3/uL RBC 4.50 (4.20-5.50) X10*6/uL Hgb 12.9 (12.0-16.0) g/dl Hct 40.0 (37.0-47.0) % MCV 88.9 (80.0-98.0) fL MCH 28.7 (27.0-33.0) pg MCHC 32.3 (31.0-35.0) g/dl RDW 13.7 (11.0-16.0) % Plt Count 287 D (160-400) X10*3/uL MPV 9.1 L (9.4-12.3) fL Immature Gran % (Auto) 0.5 H (0.0-0.4) % Neut % (Auto) 55.0 (45-73) % Lymph % (Auto) 37.7 (20-40) % [place] % (Auto) 5.6 (2-11) % Eos % (Auto) 0.8 (0-4) % Baso % (Auto) 0.4 (0-2) % Lymph # (Auto) 3.6 (1.2-4.9) X10*3/uL [place] # (Auto) 0.5 (0.1-1.2) X10*3/uL Eos # (Auto) 0.1 (0.0-0.4) X10*3/uL Baso # (Auto) 0.0 (0.0-0.2) X10*3/uL Abs Immat Gran (auto) 0.05 H (0.00-0.03) X10*3/uL Absolute Neuts (auto) 5.3 (2.0-8.3) x10*3/uL Absolute Nucleated RBC 0.000 (0.0-0.012) X10*3/uL Nucleated RBC % (auto) 0.0 (0.0-0.2) /100WBC VBG pH 7.48 H (7.32-7.43) VBG pCO2 49 mmHg VBG pO2 56 mmHg VBG HCO3 37 H (22-26) mmol/L VBG O2 Saturation 90.0 % VBG Base Excess 11.9 mmol/L Sodium 144 (135-145) mmol/L Potassium 3.9 (3.3-5.1) mmol/L Chloride 106 (96-108) mmol/L Carbon Dioxide 32 H (22-29) mmol/L Anion Gap 10 L (12-20) BUN 12 (9-16) mg/dL Creatinine 0.58 (0.5-1.4) mg/dL Estim Creat Clear Calc 94.1 Estimated GFR > 60 Random Glucose 95 (60-115) mg/dL Lactic Acid 1.4 (0.5-2.0) mmol/L Calcium 8.4 (8.4-10.2) mg/dL Total Bilirubin 0.3 (0.0-1.0) mg/dL AST 22 (5-31) U/L ALT 6 (0-31) U/L Alkaline Phosphatase 56 (39-117) U/L Troponin I High Sens 3.1 (<3.5-17.0) ng/L Total Protein 6.4 L (6.5-8.0) g/dL Albumin 3.5 (3.5-5.0) g/dL Influenza Type A (PCR) (Negative) Influenza Type B (PCR) (Negative) RSV RNA Qual (PCR) (Negative) SARS-CoV-2 RNA (RT-PCR) (Negative) 06/30/24 Range/Units 14:58 WBC (4.8-10.8) X10*3/uL RBC (4.20-5.50) X10*6/uL Hgb (12.0-16.0) g/dl Hct (37.0-47.0) % MCV (80.0-98.0) fL MCH (27.0-33.0) pg MCHC (31.0-35.0) g/dl RDW (11.0-16.0) % Plt Count (160-400) X10*3/uL MPV (9.4-12.3) fL Immature Gran % (Auto) (0.0-0.4) % Neut % (Auto) (45-73) % Lymph % (Auto) (20-40) % [place] % (Auto) (2-11) % Eos % (Auto) (0-4) % Baso % (Auto) (0-2) % Lymph # (Auto) (1.2-4.9) X10*3/uL [place] # (Auto) (0.1-1.2) X10*3/uL Eos # (Auto) (0.0-0.4) X10*3/uL Baso # (Auto) (0.0-0.2) X10*3/uL Abs Immat Gran (auto) (0.00-0.03) X10*3/uL Absolute Neuts (auto) (2.0-8.3) x10*3/uL Absolute Nucleated RBC (0.0-0.012) X10*3/uL Nucleated RBC % (auto) (0.0-0.2) /100WBC VBG pH (7.32-7.43) VBG pCO2 mmHg VBG pO2 mmHg VBG HCO3 (22-26) mmol/L VBG O2 Saturation % VBG Base Excess mmol/L Sodium (135-145) mmol/L Potassium (3.3-5.1) mmol/L Chloride (96-108) mmol/L Carbon Dioxide (22-29) mmol/L Anion Gap (12-20) BUN (9-16) mg/dL Creatinine (0.5-1.4) mg/dL Estim Creat Clear Calc Estimated GFR Random Glucose (60-115) mg/dL Lactic Acid (0.5-2.0) mmol/L Calcium (8.4-10.2) mg/dL Total Bilirubin (0.0-1.0) mg/dL AST (5-31) U/L ALT (0-31) U/L Alkaline Phosphatase (39-117) U/L Troponin I High Sens (<3.5-17.0) ng/L Total Protein (6.5-8.0) g/dL Albumin (3.5-5.0) g/dL Influenza Type A (PCR) NEGATIVE (Negative) Influenza Type B (PCR) NEGATIVE (Negative) RSV RNA Qual (PCR) NEGATIVE (Negative) SARS-CoV-2 RNA (RT-PCR) NEGATIVE (Negative) Independent Interpretation I performed an independent interpretation of an: Plain X-Ray Interpretation: NAD Radiology Impression Discussion of test interpretation with radiology: I have reviewed the radiologist's reading. Radiologist Impression: with the prior examination dated 04/06/2024. FINDINGS: A single AP portable view of the chest performed at 12:21 PM is submitted. The lungs remain hyperinflated with mild increased interstitial markings likely related to emphysema. No new focal airspace opacity is seen. There is no pleural effusion, pneumothorax, or pulmonary vascular congestion. The heart is normal in size. The bones are intact. XR/XR chest 1V IMPRESSION: COPD. No acute cardiopulmonary abnormality. Electronically signed by: Rodriguez Damon MD 06/30/2024 12:42 PM EDT RP Dictated By: Rodriguez Damon MD Signed By: <Electronically signed by Rodriguez Damon MD in OV> 06/30/24 1242 DD/ 1140 TD/TT: 06/30/24 1226 Orthodontic Band Maker: Independent Historian Clinical information obtained from an independent historian. History obtained from or confirmed by: EMS External Record Review External record reviewed: Inpatient record Chronic Conditions Patient?s care impacted by: Other (02 Dep COPD) Critical Care Time Critical Care Time Critical Care Time: Yes Total Critical Care Time: 60 Attestation: multiple nebs Discharge Plan Discharge Clinical Impression: Acute exacerbation of chronic obstructive pulmonary disease Patient Disposition: Admitted As Inpatient Print Language: Citizen Of [place]
--- NOTE | 2024-06-30 11:44 | PC.NURSE ---
Patient presents from home via EMS with SOB since yesterday. Utilized rescue inhaler with minimal effect. Received mag, solumedrol and duoneb x 2 in route and placed on cpap. Cpap d/c'd upon arrival and patient was placed o2 therapy at 3.5L. international exchange coordinator applied and NSR noted. Lungs very diminished and an occas wheeze. Respirations even and non-labored and patient states sob has improved. Abdomen soft, non-tender with positive bowel sounds. Positive pedal pulses with no edema
[2024-06-30 11:47] LABS: MANUAL DIFF FLAG NO
[2024-06-30] MEDS: Albuterol Sulfate 5 MG, Albuterol/Iprat 2.5/0.5MG 3 ML 3 ML INHALE (11:48)
[2024-06-30 11:50] LABS: Basophils Percent Auto 0.4 % (0-2); Eosinophils Absolute Auto 0.1 X10*3/uL (0.0-0.4); Eosinophils Percent Auto 0.8 % (0-4); Hemoglobin 12.9 g/dl (12.0-16.0); Imm Gran Abs Auto 0.05 X10*3/uL (0.00-0.03); Imm Gran Pct Auto 0.5 % (0.0-0.4); Lymphocytes Absolute Auto 3.6 X10*3/uL (1.2-4.9); Lymphocytes Percent Auto 37.7 % (20-40); Mean Corpuscular HGB Conc 32.3 g/dl (31.0-35.0); Mean Corpuscular Hemoglobin 28.7 pg (27.0-33.0); Mean Corpuscular Volume 88.9 fL (80.0-98.0); Mean Platelet Volume 9.1 fL (9.4-12.3); Monocytes Absolute Auto 0.5 X10*3/uL (0.1-1.2); Monocytes Percent Auto 5.6 % (2-11); Neutrophils Absolute Auto 5.3 x10*3/uL (2.0-8.3); Platelet Count 287 X10*3/uL (160-400); Red Cell Distribution Width 13.7 % (11.0-16.0); White Blood Count 9.6 X10*3/uL (4.8-10.8)
[2024-06-30 11:52] LABS: Venous Blood Gas Refer to POC result
[2024-06-30 11:52] LABS: VBG Base Excess 11.9 mmol/L; VBG HCO3 37 mmol/L (22-26); VBG pCO2 49 mmHg; VBG pH 7.48 (7.32-7.43); VBG pO2 56 mmHg
[2024-06-30 12:17] LABS: Alanine Aminotransferase 6 U/L (0-31); Albumin Level 3.5 g/dL (3.5-5.0); Alkaline Phosphatase 56 U/L (39-117); Anion Gap 10 (12-20); Aspartate Amino Transferase 22 U/L (5-31); Bilirubin Total 0.3 mg/dL (0.0-1.0); Blood Urea Nitrogen 12 mg/dL (9-16); Calcium 8.4 mg/dL (8.4-10.2); Carbon Dioxide 32 mmol/L (22-29); Chloride 106 mmol/L (96-108); Creatinine Clr Calc Pharmacy 94.1; Estimated Glomerular Filt Rate > 60; Glucose Random 95 mg/dL (60-115); Potassium 3.9 mmol/L (3.3-5.1); Sodium 144 mmol/L (135-145); Total Protein 6.4 g/dL (6.5-8.0)
[2024-06-30 12:20] LABS: Troponin-I High Sensitivity 3.1 ng/L (<3.5-17.0)
[2024-06-30 13:05] LABS: Lactic Acid 1.4 mmol/L (0.5-2.0)
--- NOTE | 2024-06-30 13:45 | PHA.MEDREC ---
Addendum entered by Bob Hernandez RPh 06/30/24 14:14: Med rec was reviewed by [facility]. Original Note: Pharmacy Consult ? Medication Reconciliation Pharmacy has completed the medication reconciliation. Spoke to patient to confirm med list. Patient was able to name all of her medications. Patient is not using Albuterol sulf 2.5mg/3ml ( now on Ipratropoium 0.5mg - Albuterol 3 mg. Patient took all her morning medication today.
--- NOTE | 2024-06-30 14:14 | P.HPHOSP_ITS ---
History of Present Illness Date of Service: 06/30/24 Attending physician on admission: Marcia Mejia Chief Complaint: SOB Pt is a 54-year-old female with a PMH significant for?COPD on 4L home O2 at baseline, HTN, RUELAS, GERD, and mood disorder who presents to the ED with?SOB and difficulty breathing the past few days, worsening last night. Reports awoke this morning and could not breathe so called EMS. When EMS arrived they placed her rescue CPAP, administered DuoNebs, Solu-Medrol, and Mag IV. Pt then transitioned to 3.5L NC in the ED. Pt reports was recently increased to 4 L home O2. Has recently had 2 episodes of pneumonia with last approximately 1 month ago. Also complains of intermittent chest pain sometimes associated with deep breathing and cough. Reproducible with palpation. Denies fever, chills. Occasional mostly nonproductive cough. No fever or chills. Denies nausea, vomiting, abdominal pain. In the ED pt was tachypneic up to 22, hypertensive up to 149/91, and satting at 97% on 3.5 L NC. Labs were grossly unremarkable and around baseline for pt. No leukocytosis. Stable H&H. No significant electrolyte abnormalities. Renal and hepatic function WNL. Lactic acid WNL at 1.4. CXR showed COPD without acute cardiopulmonary abnormality. EKG demonstrated normal sinus rhythm without evidence of significant ST elevations or depressions. Pt was treated with DuoNebs x2, Solu-Medrol 125 mg IV, Mag 2 g IV , and placed on CPAP by EMS. In the ED here was treated with additional DuoNeb. Pt will be admitted to the hospital for treatment and further evaluation of acute on chronic hypoxic respiratory failure in the setting of COPD exacerbation. Review of Systems 2 Review of Systems: Negative except for that which is stated in the [facility] Medical History Current non-smoker but past smoking history unknown Respiratory failure with hypoxia COPD exacerbation Pre-op examination History of OCD (obsessive compulsive disorder) History of panic attacks Anxiety and depression Radiculopathy, lumbar region HTN (hypertension) Sacroiliitis COPD (chronic obstructive pulmonary disease) Asthma Allergic rhinitis Disc degeneration, lumbar Family History Family/Other Cervical cancer Family/Other Stomach cancer Surgical History History of surgery History of appendectomy Hx of tonsillectomy Status post excision of lipoma History of tubal ligation Hx of excision of mass History of surgery History of laparoscopic cholecystectomy History of esophagogastroduodenoscopy (EGD) History of umbilical hernia repair History of incision and drainage Social History Household Members: Significant Other and Family Household Members Other:: grandson Housing: House Do you presently have visiting nurse or other home services: No Alcohol intake: never Comment: Significant other bedside Patient Tobacco Use Status: Former Tobacco user Tobacco use type: Cigarette Substance Use Type: Marijuana Advance Directives: Yes Advance Directives on File: Yes Advance Directives Date on File: 04/09/24 service: No Current occupational status: unemployed Sexual orientation: Straight/Heterosexual Gender identity: Female Meds Allergies Allergy/AdvReac Type Severity Reaction Status Date / Time Penicillins [PENICILLINS] Allergy Severe RASH Verified 06/30/24 11:44 seafood Allergy Rash Verified 06/30/24 11:44 Home Medications ?Medication ?Instructions ?Recorded ?Confirmed ?Last Taken ?Type mirtazapine 45 mg tablet 45 mg PO BEDTIME 03/27/20 06/30/24 06/29/24 History quetiapine 100 mg tablet (Seroquel) 100 mg PO BEDTIME 03/27/20 06/30/24 06/29/24 History lisinopril 10 mg tablet 10 mg PO DAILY 09/29/20 06/30/24 06/30/24 History pregabalin 150 mg capsule 150 mg PO BID 11/13/20 06/30/24 06/30/24 History esomeprazole magnesium 40 mg 40 mg PO BEDTIME 10/16/21 06/30/24 06/29/24 History capsule,delayed release cholecalciferol (vitamin D3) 50 50 mcg PO DAILY 12/19/21 06/30/24 06/30/24 History mcg (2,000 unit) tablet budesonide-formoterol HFA 160 2 puff inhalation BID 06/30/24 06/30/24 Unknown History mcg-4.5 mcg/actuation aerosol inhaler (Symbicort) tiotropium bromide 2.5 2 puff inhalation DAILY 06/30/24 06/30/24 06/30/24 History mcg/actuation mist for inhalation (Spiriva Respimat) Physical Exam 2 Vital Signs and Narrative: Vital Signs: Last Vital Signs Temp 97.8 F 06/30/24 11:35 Pulse 84 06/30/24 12:03 Resp 20 06/30/24 12:03 BP 142/82 H 06/30/24 12:03 Pulse Ox 95 06/30/24 12:03 O2 Del Method Nasal Cannula 06/30/24 12:03 O2 Flow Rate 3 06/30/24 12:03 Oxygen Flow Rate 3.5 06/30/24 11:35 BMI result Body Mass Index 20.4 General: AOx3, no acute distress Resp: Diffuse expiratory wheezing bilatearally CVS: S1, S2, RRR Chest: Upper left side chest wall tender to palpation GI: +BS, NT, no distention Skin: Warm, dry Neuro: Cranial nerves II-XII grossly intact bilaterally. Motor grossly intact bilaterally Extremities: No edema Psych: Appropriate affect Results Labs 06/30/24 11:42 06/30/24 11:42 Labs: Laboratory Results - last 24 hr 06/30/24 06/30/24 06/30/24 11:42 11:48 12:41 MCV 88.9 MCH 28.7 MCHC 32.3 RDW 13.7 Plt Count 287 D MPV 9.1 L Immature Gran % (Auto) 0.5 H Neut % (Auto) 55.0 Lymph % (Auto) 37.7 [place] % (Auto) 5.6 Eos % (Auto) 0.8 Baso % (Auto) 0.4 Lymph # (Auto) 3.6 [place] # (Auto) 0.5 Eos # (Auto) 0.1 Baso # (Auto) 0.0 Abs Immat Gran (auto) 0.05 H Absolute Neuts (auto) 5.3 Absolute Nucleated RBC 0.000 Nucleated RBC % (auto) 0.0 VBG pH 7.48 H VBG pCO2 49 VBG pO2 56 VBG HCO3 37 H VBG O2 Saturation 90.0 VBG Base Excess 11.9 Anion Gap 10 L Estim Creat Clear Calc 94.1 Estimated GFR > 60 Random Glucose 95 Lactic Acid 1.4 Calcium 8.4 Total Bilirubin 0.3 AST 22 ALT 6 Alkaline Phosphatase 56 Total Protein 6.4 L Albumin 3.5 Imaging Radiologist's Impressions: Impressions Chest X-Ray 06/30/24 11:40 IMPRESSION: COPD. No acute cardiopulmonary abnormality. Electronically signed by: Rodriguez Damon MD 06/30/2024 12:42 PM EDT RP Assessment and Plan (1) Acute exacerbation of chronic obstructive pulmonary disease: Status: Acute Plan Pt is a 54-year-old female with a PMH significant for?COPD on 4L home O2 at baseline, HTN, RUELAS, GERD, chronic back pain, and mood disorder who presents to the ED with?SOB and difficulty breathing the past few days, worsening last night. In the ED here was treated with additional DuoNeb. Pt will be admitted to the hospital for treatment and further evaluation of acute on chronic hypoxic respiratory failure in the setting of COPD exacerbation. Acute asthma/COPD overlap exacerbation Pt with worsening SOB, COLON, occasional mostly nonproductive cough times 2-3 days, worsening last night On 4 L home O2 Placed on CPAP by EMS, unclear what O2 sats were at that time Pt currently satting at 98% at rest on 2 L NC, still with wheezing and poor air flow bilaterally No sepsis: CXR without consolidation, no leukocytosis, no fever Will treat with DuoNebs, Solu-Medrol, guaifenesin Titrate supplemental oxygen to O2 >90, wean as tolerated Monitor respiratory status Chest pain Intermittent, associated with deep breathing or cough Reproducible with palpation Initial troponin detectable at 3.1 Repeat troponin Chronic back pain Follows with pain management outpatient Continue home opioids, pregabalin HTN Continue lisinopril GERD Continue PPI Mood disorder Continue mirtazapine, quetiapine Full Code Attending:?Dr. Mejia DVT Prophylaxis: Lovenox Pt will be admitted to the hospital under observation for treatment and further evaluation of acute asthma/COPD overlap exacerbation that will require additional treatments with DuoNebs and IV steroids. Quality Stroke Does the patient have a stroke diagnosis?: No VTE Prior VTE?: No VTE Risk Level:: Medical - moderate - high VTE Device Contraindication: Treatment Not Indicated VTE Drug Contraindication: N/A - Med Ordered
--- OUTSIDE RECORDS SUMMARY | 2024-06-30 14:58 | XMS_ITS | Encounter Summary ---
Author Organization [facility] Address [address] [place] [address] [address] [place] [address] Care Team Providers Care Molder Foam Rubber Name Role Phone Zev Sanders MD Primary Care Provider [phone] Encounter Details Date Type Department Care Team ([facility] Contact Info) Description 10/22/2022 Orders Only [facility] [address], [place] [phone] Zev Sanders MD [address], [place] [phone] Gastroenteritis (Primary Dx) Social History Tobacco Use [...] Upcoming Encounters Date Type Department Care Team ([facility] Contact Info) Description 08/10/2024 2:00 PM EDT Office Visit [facility] [address] [place] [address] Zev Sanders MD [address] [place] [address] documented as of this encounter Visit Diagnoses Diagnosis Gastroenteritis- Primary Other and unspecified noninfectious gastroenteritis and colitis documented in this encounter Care Teams Molder Foam Rubber Relationship Specialty Start Date End Date Zev Sanders MD [address] [place] [id number] PCP - General Internal Medicine 11/16/19 documented as of this encounter
--- OUTSIDE RECORDS SUMMARY | 2024-06-30 14:58 | XMS_ITS | Encounter Summary ---
Author Organization [employer] Address [address] [facility] [address] [place] [address] Care Team Providers Care Patent Drafter Name Role Phone Zev Sanders MD Primary Care Provider [phone] Reason for Visit * Reason Comments Care Coordination C3/CM Outreach Encounter Details Date Type Department Care Team (Latest Contact Info) Description 06/25/2024 Patient Outreach [facility] [address] [place] [address] Zev Sanders MD [address] [place] [address] Care Coordination (C3/CM Outreach) Social History Tobacco Use Types Packs/Day Years [...] as of this encounter Progress Notes * Keiry Marie - 06/25/2024 2:51 PM EDT CHW Keiry Marie , placed outbound call to patient in regards to offer services. CHW introducing herself from [facility] CM Department with CHW's name, department and direct contact [phone] requesting call back. Will re-attempt to contact within 5 days. and address not confirmed. documented in this encounter Plan of Treatment Upcoming Encounters Date Type Department Care Team ([facility] st Contact Info) Description 08/10/2024 2:00 PM EDT Office Visit [facility] [address] [place] [address] Zev Sanders MD [address] [place] [address] documented as of this encounter Visit Diagnoses Not on filedocumented in this encounter Additional Health Concerns Assessment Noted Time PHQ-9 Depression Total Score: 7 10/14/19 24 11:59 AM EDT documented as of this encounter Care Teams Patent Drafter Relationship Specialty Start Date End Date Zev Sanders MD [address] [place] [address] PCP - General Internal Medicine 11/16/19 documented as of this encounter
--- OUTSIDE RECORDS SUMMARY | 2024-06-30 14:58 | XMS_ITS | Encounter Summary ---
Author Organization [employer] [facility] Address [address] [place] [address] 7 [place] [address] Care Team Providers Care Block Engraver Name Role Phone Zev Sanders MD Primary Care Provider [phone] Reason for Visit * Reason Comments Med Refill Encounter Details Date Type Department Care Team ([facility] Contact Info) Description 11/05/2022 Refill [facility] MED & PEDS [address] [place] [address] Zev Sanders MD [address] [place] [address] Chronic low back pain, unspecified back pain [...] Encounters Date Type Department Care Team ([facility] Contact Info) Description 08/10/2024 2:00 PM EDT Office Visit [facility] MED & PEDS [address] [place] [address] Zev Sanders MD [address] [place], [place] [phone] documented as of this encounter Visit Diagnoses Diagnosis Chronic low back pain, unspecified back pain laterality, unspecified whether sciatica present documented in this encounter Care Teams Block Engraver Relationship Specialty Start Date End Date Zev Sanders MD [address] [place] [phone] PCP - General Internal Medicine 11/16/19 documented as of this encounter
--- OUTSIDE RECORDS SUMMARY | 2024-06-30 14:58 | XMS_ITS | Encounter Summary ---
Author Organization [employer] Address [address] [facility] 7t [place] [address] Care Team Providers Care Customer Service Analyst Name Role Phone Zev Sanders MD Primary Care Provider [phone] Reason for Visit * Reason Onset Date Comments Med Refill 07/21/2023 Encounter Details Date Type Department Care Team ([facility] st Contact Info) Description 07/21/2023 Telephone [facility] MEDICINE [address] [place] [address] Zev Sanders MD [address] [place] [address] Med Refill Social History Tobacco Use Types [...] 150 MG capsule To be sent to: [facility] - [place], [place] - [address] [place] [address] documented in this encounter Plan of Treatment Upcoming Encounters Date Type Department Care Team (Late st Contact Info) Description 08/10/2024 2:00 PM EDT Office Visit [facility] MED [facility] PEDS [address] [place] [address] Zev Sanders MD [address] [place] [address] documented as of this encounter Visit Diagnoses Not on filedocumented in this encounter Care Teams Customer Service Analyst Relationship Specialty Start Date End Date Zev Sanders MD [address] [place] [address] PCP - General Internal Medicine 11/16/19 documented as of this encounter
--- OUTSIDE RECORDS SUMMARY | 2024-06-30 14:58 | XMS_ITS ---
Author Organization [employer] Address [address] [facility] 7t [place] [address] Care Team Providers Care Group Fitness Instructor Name Role Phone Zev Sanders MD Primary Care Provider [phone] Complex Status:Outreach In Progress (Enrolling) Start date:06/21/2024 Enrollment reason:ADT Feed Overview ED_ Pt went to [facility] on 06/19/24. . Case Team Name Relationship Phone Michelle Quiroz RN Registered Nurse(Responsible S taff) Continued Care and Services Coordination
--- OUTSIDE RECORDS SUMMARY | 2024-06-30 14:58 | XMS_ITS | Encounter Summary ---
Author Organization [employer] Address [address] [facility] 7 [place] [address] Care Team Providers Care Medical Biller Name Role Phone Zev Sanders MD Primary Care Provider [phone] Encounter Details Date Type Department Care Team ([facility] Contact Info) Description 04/12/2022 Orders Only [facility] Information [facility] [address] [place], [place] [phone] Zev Sanders MD [address] [place], [place] [phone] Social History Tobacco Use Types Packs/Day Years [...] Care Team ([facility] Contact Info) Description 08/10/2024 2:00 PM EDT Office Visit [facility] CHC MED & PEDS [address] [place], [place] [phone] Zev Sanders MD [address] [place] [address] documented as of this encounter Procedures Procedure [...] (10/21/2022 2:13 PM EDT) Slide Review VERIFIED [facility] 10/21/2022 2:13 PM EDT 10/21/2022 5:23 PM EDT us Zev Sanders MD LAB BLOOD ORDERABLES Final Result [facility] [address] [place] [address] [phone] * (ABNORMAL) VENOUS BLOOD GAS (09/04/2022 1:17 PM EDT) VBG pH 7.37 7.32 - 7.43 [facility] Comment:METER #: [id number] additional_comment: Cb murpe VBG PCO2 57 mmHg [facility] Comment:METER #: [id number] additional_comment: Cb murpe VBG PO2 48 mmHg [facility] Comment:METER #: [id number] additional_comment: Cb murpe VBG Base Excess 6.2 mmol/L [facility] Comment:METER #: [id number] additional_comment: Cb murpe VBG HCO3 33(H) 22 - 26 mmol/L [facility] Comment:METER #: [id number] additional_comment: Cb murpe O2 Sat, Lefty 77.0 % [facility] Comment:METER #: [id number] additional_comment: Cb murpe 09/04/2022 1:17 PM EDT 09/04/2022 1:23 PM EDT [facility] External Provider LAB BLO OD ORDERABLES Final Result Performing Organization Address [facility] de Phone Number [facility] [address] [place] [phone] * D Dimer High Sensitivity (09/04/2022 1:10 PM EDT) [facility] D Dimer High Sensitivity <150 NG/ML [facility] Comment:D-DIMER HS REFERENCE RANGENote: Our assay reports D-Dimer Units (D- DU).The cut-off value for venous thromboembolic (VTE) disease is230 ng/mL. This value has a very high negative predictivevalue when the patient has a low to moderate clinicalprobability of VTE.The upper limit of normal is 243 ng/mL. 09/04/2022 1:10 PM EDT 09/04/2022 1:18 PM EDT [facility] External Provider LAB BLO OD ORDERABLES Final Result Performing Organization Address [facility] de Phone Number [facility] [address] [place] [phone] * B Type Natriuretic Peptide (BNP) (09/04/2022 11:26 AM EDT) Pathologist [facility] B Type Natriuretic Peptide 19 <100 pg/mL [facility] Comment:For those patients w ho are being treated with Natrecor(nesiritide, recombinant BNP), BNP testing should beperformed at least two hours post treatment in order toensure that only endogenous levels of BNP are detected. 09/04/2022 11:2 6 AM EDT 09/04/2022 1:27 PM EDT [facility] External Provider LAB BLO OD ORDERABLES Final Result [facility] [address] [place] [address] [phone] * (ABNORMAL) Comprehensive Metabolic Panel (09/04/2022 11:26 AM EDT) Sodium 142 135 - 145 mmol/L [facility] Potassium 4.2 3.3 - 5.1 mmol/L [facility] Chloride 102 96 - 108 mmol/L [facility] Carbon Dioxide 34(H) 22 - 29 mmol/L [facility] Anion Gap 10(L) 12 - 20 [facility] Urea Nitrogen (BUN) 15 9 - 16 mg/dL [facility] Creatinine, Serum 0.68 0.5 - 1.4 mg/dL [facility] Creatinine Clr Calc Pharmacy 74.8 [facility] Comment:Provided height and weight: 162.56 cm,49 kg.eGFR (calculated from the MDRD study equation) and eCrCl(calculated from the Cockcroft-Gault equation) are based ondifferent parameters and may not yield comparable results.If eCrCl result is absurd, please check patient'sheight/weight. Estimated Glomerular Filt Rate >60 [facility] Comment:NOTE: For -Am erican individuals, multiply the result by 1.210.Chronic Kidney Disease: Estimated GFR < 60 mL/min/1.45v0Jftfex Kidney Disease: Estimated GFR < 15 mL/min/1.73m2 Glucose 112 60 - 115 mg/dL [facility] Calcium 9.4 8.4 - 10.2 mg/dL [facility] Bilirubin, Total 0.7 0.0 - 1.0 mg/dL [facility] Aspartate Amino Transferase 21 5 - 31 U/L [facility] Alanine Aminotransferase 17 0 - 31 U/L [facility] Total Protein 6.7 6.5 - 8.0 g/dL [facility] Albumin Level 4.1 3.5 - 5.0 g/dL [facility] Alkaline Phosphatase 73 39 - 117 U/L [facility] 09/04/2022 11:2 6 AM EDT 09/04/2022 11:33 AM EDT us [facility] External Provider LAB BLO OD ORDERABLES Final Result [facility] [address] [place] [phone] * COVID-19 ID NOW ([employer]) (09/04/2022 11:26 AM EDT) IDNOW SERIAL# [id number] [facility] COVID-19 TEST Negative Negative [facility] COVID-19 NOTE See Note [facility] Comment: Results are for the identification of SARS-CoV2 RNA. TheSARS-CoV2 RNA is generally detectable in respiratory samplesduring the acute phase of infection. Positive results areindicative of the presence of SARS-CoV-2 RNA; clinicalcorrelation with patient history and other diagnosticinformation is necessary to determine patient infectionstatus. Positive results do not rule out bacterial infectionor co- infection with other viruses.Testing facilities within the [facility] and itsterritories are required to report all [...] use by authorized laboratories.Testing performed on the [employer] ID NOW utilizing NAAT. 09/04/2022 11:2 6 AM EDT 09/04/2022 11:33 AM EDT [facility] Exter nal Provider LAB MOLECULAR DIAGNOSTICS ORDERABLES Final Result [facility] [address] [place] [phone] [phone] * (ABNORMAL) CBC auto differential (09/04/2022 11:26 AM EDT) White Blood Count 10.4 4.8 - 10.8 X10*3/uL [facility] Red Blood Count 5.42 4.20 - 5.50 X10*6/uL [facility] Hemoglobin 16.0 12.0 - 16.0 g/dl [facility] Hematocrit 49.3(H) 37.0 - 47.0 % [facility] Mean Corpuscular Volume 91.0 80.0 - 98.0 fL [facility] Mean Corpuscular Hemoglobin 29.5 27.0 - 33.0 pg [facility] Mean Corpuscular HGB Conc 32.5 31.0 - 35.0 g/dl [facility] Red Cell Distribution Width 14.6 11.0 - 16.0 % [facility] Platelet Count 238 160 - 400 X10*3/uL [facility] Mean Platelet Volume 9.5 9.4 - 12.3 fL [facility] Neutrophils Percent Auto 51.2 45 - 73 % [facility] Imm Gran Pct Auto 0.3 0.0 - 0.4 % [facility] Lymphocytes Percent Auto 38.4 20 - 40 % [facility] Monocytes Percent Auto 8.1 2 - 11 % [facility] Eosinophils Percent Auto 1.5 0 - 4 % [facility] Basophils Percent Auto 0.5 0 - 2 % [facility] NRBC Pct Auto 0.0 0.0 - 0.2 /100WBC [facility] Neutrophils Absolute Auto 5.4 2.0 - 8.3 x10*3/uL [facility] Imm Gran Abs Auto 0.03 0.00 - 0.03 X10*3/uL [facility] Lymphocytes Absolute Auto 4.0 1.2 - 4.9 X10*3/uL [facility] Monocytes Absolute Auto 0.8 0.1 - 1.2 X10*3/uL [facility] Eosinophils Absolute Auto 0.2 0.0 - 0.4 X10*3/uL [facility] Basophils Absolute Auto 0.1 0.0 - 0.2 X10*3/uL [facility] NRBC Abs Auto 0.000 0.0 - 0.012 X10*3/uL [facility] 09/04/2022 11:2 6 AM EDT 09/04/2022 11:33 AM EDT [facility] External Provider LAB BLO OD ORDERABLES Final Result [facility] [address] [place] [address] [phone] documented in this encounter Visit Diagnoses Not on filedocumented in this encounter Care Teams Medical Biller Relationship Specialty Start Date End Date Zev Sanders MD [address] [place] [phone] PCP - General Internal Medicine 11/16/19 documented as of this encounter
--- OUTSIDE RECORDS SUMMARY | 2024-06-30 14:58 | XMS_ITS | Encounter Summary ---
Author Organization [employer] Address [address] [facility] 7t [place] [address] Care Team Providers Care Automotive Product Engineer Name Role Phone Zev Sanders MD Primary Care Provider [phone] Encounter Details Date Type Department Care Team ([facility] st Contact Info) Description 07/21/2023 Orders Only [facility] CH[facility] MED & PEDS [address] [place], [place] [phone] Zev Sanders MD [address] [place], [place] [phone] Social History Tobacco Use Types Packs/Day Years [...] Description 08/10/2024 2:00 PM EDT Office Visit [facility] MED & PEDS [address] [place] [address] Zev Sanders MD [address] [place] [address] documented as of this encounter Visit Diagnoses Not on filedocumented in this encounter Care Teams Automotive Product Engineer Relationship Specialty Start Date End Date Zev Sanders MD [address] [place] [address] PCP - General Internal Medicine 11/16/19 documented as of this encounter
--- OUTSIDE RECORDS SUMMARY | 2024-06-30 14:58 | XMS_ITS ---
Author Organization [employer] Address [address] [facility] 7t [place] [address] Care Team Providers Care Assistant Shift Supervisor Name Role Phone Zev Sanders MD Primary Care Provider [phone] CHW Complex Status:Outreach In Progress (Enrolling) Start date:06/21/2024 Enrollment reason:ADT Feed Overview ED_ Pt went to [facility] ED on 06/19/24. . Case Team Name Relationship Phone Keiry Marie (Responsible Staff) Continued Care and Services Coordination
--- OUTSIDE RECORDS SUMMARY | 2024-06-30 14:58 | XMS_ITS | Encounter Summary ---
Author Organization [employer] Address [address] [facility] 7 [place] [address] Care Team Providers Care Cardiology Technologist Name Role Phone Zev Sanders MD Primary Care Provider [phone] Reason for Visit * Reason Onset Date Comments FYI 06/30/2024 Encounter Details Date Type Department Care Team ([facility] st Contact Info) Description 06/30/2024 Telephone [facility] MEDICINE [address] [place] [address] Zev Sanders MD [address] [place] [address] FYI Social History Tobacco Use Types Packs/Day Years [...] encounter Miscellaneous Notes * Telephone Encounter - Isabelle Robbins RN - 06/30/2024 2:54 PM EDT Tc from pt daughter to cancel upcoming appointments and report pt was admitted today 06/30 at the [facility] [place] due to trouble breathing. Patient will follow up with HD[facility] upon discharge * Telephone Encounter - Kely Lazo - 06/30/2024 2:02 PM EDT Tc from pt daughter to cancel upcoming appointments and report pt was admitted today 06/30 at the [facility] [place] due to trouble breathing. documented in this encounter Plan of Treatment Upcoming Encounters Date Type Department Care Team (Late st Contact Info) Description 08/10/2024 2:00 PM EDT Office Visit [facility] CHC MED & PEDS [address] [place] [address] Zev Sanders MD [address] [place] [address] documented as of this encounter Visit Diagnoses Not on filedocumented in this encounter Additional Health Concerns Assessment Noted Time PHQ-9 Depression Total Score: 7 10/14/19 24 11:59 AM EDT documented as of this encounter Care Teams Cardiology Technologist Relationship Specialty Start Date End Date Zev Sanders MD [address] [place] [address] PCP - General Internal Medicine 11/16/19 documented as of this encounter
--- OUTSIDE RECORDS SUMMARY | 2024-06-30 14:58 | XMS_ITS | Clinical Summary ---
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 Name Role Phone Zev Sanders MD Primary Care Provider [phone] Allergies No known active allergies Medications tiotropium (Spiriva Respimat) 2.5 MCG/ACT inhalerIndicat ions:COPD (chronic obstructive pulmonary disease) case management patient (CMS/FORMERLY [facility]) INHALE TWO PUFF BY MOUTH EVERY MORNING [...] AT BEDTIME 60 capsule 06/03/19 25 Active pregabalin (Lyrica) 150 MG capsuleIndicat [...] Encounters Date Type Department Care Team Description 06/30/2024 Telephone [facility] [address] [place] [address] Zev Sanders MD FYI 06/25/2024 Patient Outreach [facility] [address] [place] [address] Zev Sanders MD Care Coordination (C3/CM Outreach) 06/21/2024 Patient Outreach [facility] [address] [place], [place] [phone] Zev Sanders MD Care Coordination (C3/CM Outreach) 06/21/2024 Patient Outreach [facility] [address] [place] [address] Zev Sanders MD 06/21/2024 Patient Outreach [facility] [address] [place] [address] Zev Sanders MD Transition Of Care (Tcm) 06/21/2024 Patient Outreach [facility] [address] [place] [address] Zev Sanders MD Care Coordination ([facility] chart review) 06/21/2024 Patient Outreach [address] [address] Zev Sanders MD 06/19/2024 Orders Only GENERIC EXTERNAL DATA DEPARTMENT Provider, Generic External Data 06/11/2024 Population Health Risk Score [facility] (C3) Department [address] [place] [phone] Provider, Population Health Generic 06/01/2024 Refill [facility] [address] [place] [address] Zev Sanders MD Chronic low back pain, unspecified back pain laterality, unspecified whether sciatica present 05/25/2024 Refill [facility] [address] [place] [address] Zev Sanders MD 05/10/2024 1:15 PM EST Office Visit [facility] [address] [place] [address] Zev Sanders MD custodial (current) use of systemic steroids (Primary Dx); Asthma-chronic obstructive pulmonary disease overlap syndrome (CMS/HCC) 05/10/2024 Travel 05/06/2024 Telephone [facility] [address] [place] [address] Zev Sanders MD chart prep 05/06/2024 Telephone [facility] [address] [place] [address] Zev Sanders MD chart prep 05/04/2024 Refill [facility] [address] [place] [address] Zev Sanders MD Chronic low back pain, unspecified back pain laterality, unspecified whether sciatica present 2024 Orders Only [facility] External Provider, [facility] 2024 Telephone [facility] [address] [facility] [place], [place] [phone] Zev Sanders MD Appointment Request 05/01/2024 Travel 04/29/2024 Telephone [facility] [address] [place] [address] Zev Sanders MD No Show 04/28/2024 Telephone [facility] [address] [place] [address] Zev Sanders MD CHART PREP 04/22/2024 Telephone [facility] [address] [place] [address] Zev Sanders MD Results 04/21/2024 Orders Only GENERIC EXTERNAL DATA DEPARTMENT Provider, Generic External Data 04/21/2024 Patient Outreach [facility] [address] [place] [address] Zev Sanders MD Transition Of Care (Tcm) (HDF scheduled. ) 04/21/2024 Patient Outreach [facility] [address] [place] [address] Zev Sanders MD Pre-visit Planning (SDOH will need to be completed in office. ) 04/20/2024 Telephone [facility] [address] [place] [address] Zev Sanders MD Nurse Triage 04/14/2024 Patient Outreach [facility] [address] [place] [address] Zev Sanders MD Transition Of Care (Tcm) (HDF #2 attempt _ unable to lvm) 04/09/2024 Patient Outreach [facility] [address] [place] [address] Zev Sanders MD Transition Of Care (Tcm) (HDF- Not in service) 04/06/2024 Orders Only GENERIC EXTERNAL DATA DEPARTMENT Provider, Generic External Data from Last 3 Months Immunizations Name Administration [...] Years Used Date Smoking Tobacco: Former Cigarettes - 2019 Smokeless Tobacco: Never Tobacco Cessation:Counseling Given: No Alcohol Use Standard Drinks/Week Comments Never 0 (1 standard drink = 0.6 oz pur e alcohol) Depression Answer Date Recorded Patient Health Questionnaire-9 Score 7 10/14/2023 Patient Health Questionnaire-9 Score 7 10/14/2023 Last PHQ-9: Questionnaire Data Not on file 0 10/14/2023 Housing Stability Answer Date Recorded What is your housing situation today? I have [facility] 01/17/[address] you [...] Description 08/10/2024 2:00 PM EDT Office Visit [facility] [address] [place] [address] Zev Sanders MD [address] [place] [address] Health Maintenance Due Date Last Done Comments [...] Depression Screening 10/13/2024 10/14/2023, 10/14/19 Tobacco Screening 05/10/2025 05/10/2024 Colorectal Cancer Screening [...] Procedure Name Priority Date/Time Associated Diagnosis Comments XR CHEST 1 VIEW Routine 06/30/2024 11:[address] ABDOMEN PELVIS W CONTRAST Routine 06/19/2024 4:58 PM EDT CTA CHEST PE PROTOCAL Routine 06/19/2024 4:[address] HEAD WO CONTRAST Routine 06/19/2024 4 :50 PM EDT URINALYSIS WITH REFLEX MICROSCOPIC Routine 06/19/2024 4:26 PM EDT LACTIC ACID Routine 06/19/2024 12:40 PM EDT BLOOD CULTURE (SECOND) Routine 12:40 PM EDT BLOOD CULTURE (FIRST) Routine 06/19/2024 12:37 PM EDT [facility] US LOWER EXTREMITY VENOUS DUPLEX BILATERAL Routine 2024 1:18 PM EST [facility] US LOWER EXTREMITY VENOUS DUPLEX BILATERAL Routine [...] Recently Relevant to Health Maintenance Results * XR Chest 1 View (06/30/2024 11:40 AM EDT) Only the most recent of2 resultswithin the time period is included. Anatomical Region Laterality Modality Chest Radiographic Joy ging 06/30/2024 11:4 0 AM EDT Narrative 06/30/2024 12:45 PM EDT ? [facility] ?[address] ?[place] [address] ?XRay Report ? Signed ? Patient: Adelia Deysi Izquierdo ?MR#: ?? [id number] ? : 1970 ?Acct:[id number] ? Age/Sex: 54 / F ?ADM Date: 06/30/24 ? Loc: HO.ED ? Attending Dr: ? Ordering Physician: Demetrius Valdivia MD ?? Date of Service: 06/30/24 ?? Procedure(s): XR chest 1V ?? Accession Number(s): [id number] ? cc: Zev Sanders MD; Demetrius Valdivia MD ? EXAMINATION: ??XR CHEST 1 VIEW ? HISTORY: chest pain ? COMPARISON: Comparison is made with the prior examination dated ?? 04/06/2024. ? FINDINGS: ??A single AP portable view of the chest performed at 12:21 PM ?? is submitted. The lungs remain hyperinflated with mild increased ?? interstitial markings likely related to emphysema. No new focal ?? airspace opacity is seen. ??There is no pleural effusion, pneumothorax, ?? or pulmonary vascular congestion. ??The heart is normal in size. ??The ?? bones are intact. ? XR/XR chest 1V ?? IMPRESSION: ?? COPD. No acute cardiopulmonary abnormality. ? Electronically signed by: ??Rodriguez Damon MD ??06/30/2024 12:42 PM EDT ?? RP ? Dictated By: ?Rodriguez Damon MD ? Signed By: ?<Electronically signed by Rodriguez Damon MD in OV> ?06/30/24 1242 ? DD/ 1140 ? TD/TT: 06/30/24 1226 ? Drive Thru Order Taker: ? Procedure Note Donotuseinterpreter, Image - 06/30/[address] [address] XRay Report Signed Patient: Deysi Pfeiffer DMR#: [id number] : 1970Acct:[id number] Age/Sex: 54 / FADM Date: 06/30/24 Loc: HO.ED Attending Dr: Ordering Physician: Demetrius Valdivia MD Date of Service: 06/30/24 Procedure(s): XR chest 1V Accession Number(s): [id number] cc: Zev Sanders MD; Demetrius Valdivia MD EXAMINATION: XR CHEST 1 VIEW HISTORY: chest pain COMPARISON: Comparison is made with the prior examination dated 04/06/2024. FINDINGS: A single AP portable view of the chest performed at 12:21 PM is submitted. The lungs remain hyperinflated with mild increased interstitial markings likely related to emphysema. No new focal airspace opacity is seen. There is no pleural effusion, pneumothorax, or pulmonary vascular congestion. The heart is normal in size. The bones are intact. XR/XR chest 1V IMPRESSION: COPD. No acute cardiopulmonary abnormality. Electronically signed by: Rodriguez Damon MD 06/30/2024 12:42 PM EDT Dictated By: Rodriguez Damon MD Signed By: <Electronically signed by Rodriguez Damon MD in OV> 06/30/24 1242 DD/ 1140 TD/TT: 06/30/[address] Thru Order Taker: [facility] External Provider IMG XR PROCEDURES Edited Result - Final * CT Abdomen Pelvis w/ Contrast (06/19/2024 4:58 PM EDT) Anatomical Region Laterality Modality Body, Pelvis, Abdomen Computed T omography 06/19/2024 4:58 PM EDT Narrative 06/19/2024 4:59 PM EDT ? [facility] ?[address] ?[place] [address] ? CT Scan Report ? Signed ? Patient: Adelia Rubinoa,Deysi D ?MR#: ?? [id number] ? : 1970 ?Acct:[id number] ? Age/Sex: 54 / F ?ADM Date: 06/19/24 ? Loc: HO.ED ? Attending Dr: ? Ordering Physician: Ace Briones ?? Date of Service: 06/19/24 ?? Procedure(s): CT abdomen pelvis w IV con ?? Accession Number(s): [id number] ? cc: Zev Sanders MD; Ace Briones ? Report Number: ?? [id number]: Total DLP = ??366.25 mGy-cm ? CLINICAL HISTORY: abd pain flank pain w ??hypotension ? CT abdomen and pelvis with contrast ? Comparison: None ? Findings: ?? Multifocal right basilar consolidation and airway thickening. See details ?? on chest CT. ?? The liver, spleen, splenule, adrenal glands, pancreas and kidneys ?? demonstrate no acute or suspicious abnormality. ?? The gallbladder is absent. ?? No bowel obstruction. Mild fecal retention. No free air, free fluid ?? abscess or adenopathy. ?? Uterus and adnexa are unremarkable. ?? The bladder is partially distended without focal abnormality. ?? Moderately severe atherosclerotic disease of the aorta. ? Impression: ? No acute process within the abdomen or pelvis. ?? Fecal retention within the colon. No bowel obstruction or free air. ?? Several incidental findings as detailed ? This document has been electronically signed by: Joel Villalta MD on ?? 06/19/2024 16:58:27 ? Dictated By: ?Joel Villalta MD ? Signed By: ?<Electronically signed by Joel Villalta MD in OV> ? 06/19/24 1659 ? DD/ 1658 ? TD/TT: 06/19/24 1658 ? Drive Thru Order Taker: ? Procedure Note Elias, Image - 06/19/2024 [place] [address] [place] [address] CT Scan Report Signed Patient: Deysi Pfeiffer [facility]#: [id number] : 1970Acct:[id number] Age/Sex: 54 / FADM Date: 06/19/24 Loc: HO.ED Attending Dr: Ordering Physician: Ace Briones Date of Service: 06/19/24 Procedure(s): CT abdomen pelvis w IV con Accession Number(s): [id number] cc: Zev Sanders MD; Ace Briones Report Number: [id number]: Total DLP = 366.25 mGy-cm CLINICAL HISTORY: abd pain flank pain w hypotension CT abdomen and pelvis with contrast Comparison: None Findings: Multifocal right basilar consolidation and airway thickening. See details on chest CT. The liver, spleen, splenule, adrenal glands, pancreas and kidneys demonstrate no acute or suspicious abnormality. The gallbladder is absent. No bowel obstruction. Mild fecal retention. No free air, free fluid abscess or adenopathy. Uterus and adnexa are unremarkable. The bladder is partially distended without focal abnormality. Moderately severe atherosclerotic disease of the aorta. Impression: No acute process within the abdomen or pelvis. Fecal retention within the colon. No bowel obstruction or free air. Several incidental findings as detailed This document has been electronically signed by: Joel Villalta MD on 06/19/2024 16:58:27 Dictated By: Joel Villalta MD Signed By: <Electronically signed by Joel Villalta MD in OV> 06/19/249 DD/ 57 TD/TT: 06/19/241657 Drive Thru Order Taker: [facility] External Provider IMG CT PROCEDURES Edited Result - Final * CTA Chest PE Protocal (06/19/2024 4:55 PM EDT) Anatomical Region Laterality Modality Body, Chest Computed Tomogra phy 06/19/2024 4:55 PM EDT Narrative 06/19/2024 4:57 PM EDT ? [facility] ?[address] ?[place] [address] ? CT Scan Report ? Signed ? Patient: Delvalle Izquierdo,Deysi D ?MR#: ?? [id number] ? : 1970 ?Acct:[id number] ? Age/Sex: 54 / F ?ADM Date: 06/19/24 ? Loc: HO.ED ? Attending Dr: ? Ordering Physician: Ace Briones ?? Date of Service: 06/19/24 ?? Procedure(s): CT angio chest PE protocol ?? Accession Number(s): [id number] ? cc: Zev aSnders MD; Ace Briones ? Report Number: ?? [id number]: Total DLP = ??166.75 mGy-cm ? CLINICAL HISTORY: sob hypoxia, labored breathing ? CT angiography chest with contrast. 3D Postprocessing. ? Comparison: None ? Findings: ?? There is no cardiomegaly, heart strain or evidence of pulmonary embolism ?? There is dilation of the pulmonary arterial trunk consistent with ?? pulmonary arterial hypertension. ?? No mediastinal adenopathy or significant pericardial effusion. ?? There is severe diffuse centrilobular emphysema. ?? Airway thickening noted ill-defined patchy right basilar densities. No ?? effusion. No pneumothorax. ?? Regions of endobronchial plugging are present predominantly on the right. ?? No acute osseous abnormality. ?? The visualized upper abdomen is unremarkable. ? Impression: ? Probable multifocal right lower lobe pneumonia/bronchitis with ?? endobronchial plugging. ?? No evidence of pulmonary embolism. ?? Dilation of the pulmonary arteries centrally consistent with pulmonary ?? arterial hypertension. ? This document has been electronically signed by: Joel Villalta MD on ?? 06/19/2024 16:55:49 ? Dictated By: ?Joel Villalta MD ? Signed By: ?<Electronically signed by Joel Villalta MD in OV> ? 06/19/241655 ? DD/ 54 ? TD/TT: 06/19/241654 ? Drive Thru Order Taker: ? Procedure Note Elias, Travis - 06/19/[address] [address] [address] Scan Report Signed Patient: Deysi Pfeiffer [facility]#: [id number] : 1970Acct:[id number] Age/Sex: 54 / FADM Date: 06/19/24 Loc: HO.ED Attending Dr: Ordering Physician: Ace Briones Date of Service: 06/19/24 Procedure(s): CT angio chest PE protocol Accession Number(s): [id number] cc: Zev Sanders MD; Ace Briones Report Number: [id number]: Total DLP = 166.75 mGy-cm CLINICAL HISTORY: sob hypoxia, labored breathing CT angiography chest with contrast. 3D Postprocessing. Comparison: None Findings: There is no cardiomegaly, heart strain or evidence of pulmonary embolism There is dilation of the pulmonary arterial trunk consistent with pulmonary arterial hypertension. No mediastinal adenopathy or significant pericardial effusion. There is severe diffuse centrilobular emphysema. Airway thickening noted ill-defined patchy right basilar densities. No effusion. No pneumothorax. Regions of endobronchial plugging are present predominantly on the right. No acute osseous abnormality. The visualized upper abdomen is unremarkable. Impression: Probable multifocal right lower lobe pneumonia/bronchitis with endobronchial plugging. No evidence of pulmonary embolism. Dilation of the pulmonary arteries centrally consistent with pulmonary arterial hypertension. This document has been electronically signed by: Joel Villalta MD on 06/19/2024 16:55:49 Dictated By: Joel Villalta MD Signed By: <Electronically signed by Joel Villalta MD in OV> 06/19/246 DD/ 54 TD/TT: 06/19/241654 Drive Thru Order Taker: [facility] External Provider IMG CT PROCEDURES Edited Result - Final * CT Head w/o Contrast (06/19/2024 4:50 PM EDT) Anatomical Region Laterality Modality Head, Neck Computed Tomogra phy 06/19/2024 4:50 PM EDT Narrative 06/19/2024 4:52 PM EDT ? [facility] ?[address] ?[place] [address] ? CT Scan Report ? Signed ? Patient: Delvalle Izquierdo,Deysi D ?MR#: ?? [id number] ? : 1970 ?Acct:[id number] ? Age/Sex: 54 / F ?ADM Date: 03/22/25 ? Loc: HO.ED ? Attending Dr: ? Ordering Physician: Ace Briones ?? Date of Service: 06/19/24 ?? Procedure(s): CT head/brain wo IV con ?? Accession Number(s): [id number] ? cc: Zev Sanders MD; Ace Briones ? Report Number: ?? [id number]: Total DLP = ??666.00 mGy-cm ? CLINICAL HISTORY: severe headache feels atypical ? CT head without contrast ? Comparison: None ? Findings: ?? No intra-axial mass, midline shift, hydrocephalus, or acute hemorrhage. ?? No significant atrophy-like change or white matter disease. ?? There is opacification of the left maxillary sinuses. ?? The orbits are within normal limits. ?? There is no acute fracture. ? IMPRESSION: ?? 1. No acute intracranial findings. ? This document has been electronically signed by: Joel Villalta MD on ?? 06/19/2024 16:50:29 ? Dictated By: ?Joel Villalta MD ? Signed By: ?<Electronically signed by Joel Villalta MD in OV> ? 06/19/24 1651 ? DD/ 1650 ? TD/TT: 06/19/240 ? Drive Thru Order Taker: ? Procedure Note Elias, Travis - 06/19/[address] [place] [address] [address] Scan Report Signed Patient: Deysi Pfeiffer DMR#: [id number] : 1970Acct:[id number] Age/Sex: 54 / FADM Date: 06/19/24 Loc: HO.ED Attending Dr: Ordering Physician: Ace Briones Date of Service: 06/19/24 Procedure(s): CT head/brain wo IV con Accession Number(s): [id number] cc: Zev Sanders MD; Ace Briones Report Number: [id number]: Total DLP = 666.00 mGy-cm CLINICAL HISTORY: severe headache feels atypical CT head without contrast Comparison: None Findings: No intra-axial mass, midline shift, hydrocephalus, or acute hemorrhage. No significant atrophy-like change or white matter disease. There is opacification of the left maxillary sinuses. The orbits are within normal limits. There is no acute fracture. IMPRESSION: 1. No acute intracranial findings. This document has been electronically signed by: Joel Villalta MD on 06/19/2024 16:50:29 Dictated By: Joel Villalta MD Signed By: <Electronically signed by Joel Villalta MD in OV> 06/19/241650 DD/ 49 TD/TT: 06/19/241649 Drive Thru Order Taker: [facility] External Provider IMG CT PROCEDURES Edited Result - Final * (ABNORMAL) Urinalysis w/reflex microscopic (06/19/2024 4:26 PM EDT) Color Urine Yellow [facility] Appearance Urine Clear [facility] PH 5.5 5.0 - 9.0 [facility] Glucose Urine UA Negative Negative mg/dL [facility] Urine Blood Negative Negative [facility] Specific [place] - Urine >=1.030(H) 1.005 - 1.025 [facility] Urine Protein Negative Neg-Trace mg/dL [facility] Urine Ketones 15 Negative mg/dL [facility] Nitrite Urine Negative Negative [facility] Leukocyte Esterase Urine Negative Negative [facility] 06/19/2024 4:26 PM EDT 06/19/2024 4:28 PM EDT Narrative [facility] - 06/19/2024 4:39 PM EDT [id number], [employer] Generic External Data Provider LAB URINE ORDERAB LES Final Result [facility] [address] [place] [address] [phone] * Blood Culture (Second) (06/19/2024 12:40 PM EDT) Blood Venous blood specimen / Unknown 06/19/2024 12:40 PM EDT 06/19/2024 12:44 PM EDT Comment:Blood Narrative [facility] - 06/24/2024 2:44 PM EDT Blood Culture (Second) No growth after 5 days. Specimen Source: Blood Generic External Data Provider LAB MICROBIOLOGY - GENERAL ORDERABLES Final Result Performing Organization Address City/[facility]/ZIP Co de Phone Number [facility] [address] [place] [phone] * Lactic Acid (06/19/2024 12:40 PM EDT) Only the most recent of2 resultswithin the time period is included. Lactic Acid 0.9 0.5 - 2.0 mmol/L [facility] 06/19/2024 12:4 0 PM EDT 06/19/2024 12:44 PM EDT Generic External Data Provider LAB BLOOD ORDERAB LES Final Result Performing Organization Address [facility] Co de Phone Number [facility] [address] [place] [phone] * Blood Culture (First) (06/19/2024 12:37 PM EDT) Blood Venous blood specimen / Unknown 06/19/2024 12:37 PM EDT 06/19/2024 12:40 PM EDT Comment:Blood Narrative [facility] - 06/24/2024 2:41 PM EDT Blood Culture (First) No growth after 5 days. Specimen Source: Blood Generic External Data Provider LAB MICROBIOLOGY - GENERAL ORDERABLES Final Result Performing Organization Address [facility] Co de Phone Number [facility] [address] [place] [phone] * VASC US Lower Extremity Venous Duplex Bilateral (2024 1:18 PM EST) Only the most recent of2 resultswithin the time period is included. 2024 1:18 PM EST Narrative [facility] - 2024 3:38 PM EST ? [facility] ?[address] ?[place], [place] [address] ? Ultrasound Report ? Signed ? Patient: Delvalle Izquierdo,Deysi D ?MR#: ?? [id number] ? : 1970 ?Acct:[id number] ? Age/Sex: 54 / F ?ADM Date: 05/03/24 ? Loc: HO.US ? Attending Dr: Anika Dennis PA-C ? Ordering Physician: Anika Dennis PA-C ?? Date of Service: 05/03/24 ?? Procedure(s): US venous duplex LE BI ?? Accession Number(s): [id number] ? cc: Zev Sanders MD; Anika Dennis [...] small saphenous vein. ? Electronically signed by: ??Franics Connelly MD ??2024 03:35 PM ?? EST RP ? Dictated By: ?Francis Brannon MD ? Signed By: ?<Electronically signed by Francis Jaeger MD in OV> ? 05/03/24 1535 ? DD/ 1318 ? TD/TT: 05/03/24 1345 ? Drive Thru Order Taker: ? Procedure Note Travis Griffin - [address] [address] Ultrasound Report Signed Patient: Deysi Pfeiffer [facility]#: [id number] : 1970Acct:[id number] Age/Sex: 54 / FADM Date: 05/03/24 Loc: HO.US Attending Dr: Anika Dennis PA-C Ordering Physician: Anika Dennis PA-C Date of Service: 05/03/24 Procedure(s): US venous duplex LE BI Accession Number(s): [id number] cc: Zev Sanders MD; Anika Dennis PA-C [...] by: Francis Connelly MD 2024 03:35 PM [facility] Dictated By: Francis Brannon MD Signed By: <Electronically signed by Francis Jaeger MDin OV> 05/03/24 1535 DD/ 1318 TD/TT: 05/03/[address] Thru Order Taker: [facility] External Provider CV VASC ULAR PROCEDURES Final Result [facility] [address] [place] [address] [phone] * (ABNORMAL) CBC auto differential (04/21/2024 3:22 PM EST) White Blood Count 11.6(H) 4.8 - 10.8 X10*3/uL [facility] Red Blood Count 4.26 4.20 - 5.50 X10*6/uL [facility] Hemoglobin 12.4 12.0 - 16.0 g/dl [facility] Hematocrit 39.4 37.0 - 47.0 % [facility] Mean Corpuscular Volume 92.5 80.0 - 98.0 fL [facility] Mean Corpuscular Hemoglobin 29.1 27.0 - 33.0 pg [facility] Mean Corpuscular HGB Conc 31.5 31.0 - 35.0 g/dl [facility] Red Cell Distribution Width 14.6 11.0 - 16.0 % [facility] Platelet Count 241 160 - 400 X10*3/uL [facility] Mean Platelet Volume 9.2(L) 9.4 - 12.3 fL [facility] Neutrophils Percent Auto 84.3(H) 45 - 73 % [facility] Imm Gran Pct Auto 0.6(H) 0.0 - 0.4 % [facility] Lymphocytes Percent Auto 10.4(L) 20 - 40 % [facility] Monocytes Percent Auto 3.6 2 - 11 % [facility] Eosinophils Percent Auto 0.4 0 - 4 % [facility] Basophils Percent Auto 0.7 0 - 2 % [facility] NRBC Pct Auto 0.0 0.0 - 0.2 /100WBC [facility] Neutrophils Absolute Auto 9.8(H) 2.0 - 8.3 x10*3/uL [facility] Imm Gran Abs Auto 0.07(H) 0.00 - 0.03 X10*3/uL [facility] Lymphocytes Absolute Auto 1.2 1.2 - 4.9 X10*3/uL [facility] Monocytes Absolute Auto 0.4 0.1 - 1.2 X10*3/uL [facility] Eosinophils Absolute Auto 0.1 0.0 - 0.4 X10*3/uL [facility] Basophils Absolute Auto 0.1 0.0 - 0.2 X10*3/uL [facility] LABS NRBC Abs Auto 0.000 0.0 - 0.012 X10*3/uL [facility] 04/21/2024 3:22 PM EST 04/21/2024 3:24 PM EST Generic External Data Provider LAB BLOOD ORDERAB LES Final Result Performing Organization Address [facility] Co de Phone Number [facility] [address] [place] [phone] * Prothrombin Time-INR (04/21/2024 3:22 PM EST) Prothrombin Time 10.9 10.9 - 12.4 SEC [facility] INTERNATIONAL NORM RATIO 0.9 0.9 - 1.1 [facility] Comment:INTERNATIONAL NORMAL IZED RATIO (INR) REFERENCE [...] 3:22 PM EST 04/21/2024 3:24 PM EST [employer] External Data Provider LAB BLOOD ORDERAB LES Final Result Performing Organization Address [facility] Co de Phone Number [facility] [address] [place] [address] [phone] * (ABNORMAL) Comprehensive Metabolic Panel (04/21/2024 3:22 PM EST) Pathologist [facility] Sodium 143 135 - 145 mmol/L [facility] Potassium 4.9 3.3 - 5.1 mmol/L [facility] Chloride 103 96 - 108 mmol/L [facility] Carbon Dioxide 33(H) 22 - 29 mmol/L [facility] Anion Gap 12 12 - 20 [facility] Urea Nitrogen (BUN) 11 9 - 16 mg/dL [facility] Creatinine, Serum 0.59 0.5 - 1.4 mg/dL [facility] Creatinine Clr Calc Pharmacy 95.2 [facility] Comment:Provided height and weight: 162.56 cm,56.9 kg.eGFR (calculated from the MDRD study equation) and eCrCl(calculated from the Cockcroft-Gault equation) are based ondifferent parameters and may not yield comparable results.If eCrCl result is absurd, please check patient'sheight/weight. Estimated Glomerular Filt Rate >60 [facility] Comment:Chronic Kidney Disea se: Estimated GFR < 60 mL/min/1.37k1Svqbbc Kidney Disease: Estimated GFR < 15 mL/min/1.73m2 Glucose 116(H) 60 - 115 mg/dL [facility] Calcium 9.1 8.4 - 10.2 mg/dL [facility] Bilirubin, Total 0.3 0.0 - 1.0 mg/dL [facility] Aspartate Amino Transferase 17 5 - 31 U/L [facility] Alanine Aminotransferase 14 0 - 31 U/L [facility] Total Protein 6.6 6.5 - 8.0 g/dL [facility] Albumin Level 3.9 3.5 - 5.0 g/dL [facility] Alkaline Phosphatase 66 39 - 117 U/L [facility] 04/21/2024 3:22 PM EST 04/21/2024 3:24 PM EST us Generic External Data Provider LAB BLOOD ORDERAB LES Final Result [facility] [address] [place] [address] [phone] * (ABNORMAL) VENOUS BLOOD GAS (04/06/2024 11:05 AM EST) VBG pH 7.43 7.32 - 7.43 [facility] Comment:METER #: [id number] additional_comment: Joshua thompson VBG PCO2 52 mmHg [facility] Comment:METER #: [id number] additional_comment: Joshua thompson VBG PO2 33 mmHg [facility] Comment:METER #: [id number] additional_comment: Cb jay VBG Base Excess 9.5 mmol/L [facility] Comment:METER #: [id number] additional_comment: Cb jay VBG HCO3 35(H) 22 - 26 mmol/L [facility] Comment:METER #: [id number] additional_comment: Joshua thompson O2 Sat, Lefty 55.0 % [facility] Comment:METER #: [id number] additional_comment: Joshua thompson 04/06/2024 11:0 5 AM EST 04/06/2024 11:13 AM EST us Generic External Data Provider LAB BLOOD ORDERAB LES Final Result [facility] [address] [place] [phone] * Cologuard?? colon cancer screening (03/10/2023 2:14 PM EST) Cologuard Result Negative Negative 03/21/20 23 1:56 AM EST [facility] (CLIA #:[id number]) Comment: NEGATIVE TEST RESULT. A negative Cologuard [...] cancer. ??Following a negative Cologuard result, the [employer] Society and U.S. Multi-Society Task Force screening guidelines recommend a Cologuard re-screening interval of 3 years. References: [employer] Guideline for Colorectal Cancer Screening: https://www.cancer.org/cancer/hhvuu-mhmlrf-ofksex/aufxovlan-yicxaliky-srsvbvs/ac s-rec ommendations.html.; Edgar DK, Antonio CR, Salma CorderoK, Colorectal Cancer Screening: Recommendations for Physicians and Patients from the U.S. Multi-Society Task Force on Colorectal Cancer Screening , Am J Gastroenterology 2017; 112:1438-6698. TEST DESCRIPTION: Composite algorithmic analysis of stool [...] Luis Robles al, N Engl J Med 2014;370(14):2763-6025.) Cologuard may produce a false negative or false positive result (no colorectal cancer or precancerous polyp present at colonoscopy follow up). A negative Cologuard test result does not guarantee the absence of CRC or advanced adenoma (pre-cancer). The current Cologuard screening interval is every 3 years. ([employer] Society and U.S. Multi-Society Task Force). Cologuard performance data in a 10,000 patient pivotal study using colonoscopy as the reference method can be accessed at the following location: www.Content360.com/results. Additional description of the Cologuard test process, warnings and precautions can be found at www.cologuard.com. Stool specimen (specimen) 03/10/2023 2:14 PM EST 03/12/2023 8:29 PM EST us Zev Sanders MD LAB MOLECULAR DIAGNOSTICS O RDERABLES Final Result [facility] (CLIA #:[id number]) [address] [place] [address], * HPV E6/E7 RFLX VANNESSA 16 18/45 (01/15/2022 10:19 AM EDT) HPV mRNA E6/E7 rflx Not Detected Not Detected [facility] Comment: Methodology: Neurosurgical Nurse-Mediated Amplification This assay detects E6/E7 viral messenger RNA (mRNA) from 14 high-risk HPV types (16,18,31,33,35,39,45,51,52,56,58,59,66,68). Cervical sources are required for HPV testing. If a vaginal source from a patient who has had a total hysterectomy with removal of cervix was submitted, please contact the testing laboratory for alternative testing options. For additional information, please refer to http://education.mention/faq/YWG413y0 (This link if provided for information/ educational purposes only.) THIS TEST WAS PERFORMED AT: [facility] [address] [place] [address],[address] [place], [place] ??[phone] ESPERANZA CRUZ MD 01/15/2022 10:1 9 AM EDT us Mario Alberto Morgan MD HISTORICAL/NON ORDERABLE LABS Fi nal Result [facility] * Hm Pap Smear (01/15/2022) Historical Provider HEALTH MAINTENANCE Final Result * HEPATITIS C AB W/REFL TO HCV RNA, QN, PCR (11/12/2021 12:09 PM EDT) HEPATITIS C ANTIBODY NON-REACT JOSE MANUEL NON-REACT JOSE MANUEL [facility] INDEX 0.09 <1.00 [facility] Comment: ?? HCV antibody was non-reactive. There is no laboratory ?? evidence of HCV infection. ?? In most cases, no further action is required. However, if recent HCV exposure is suspected, a test for HCV RNA (test code 32977) is suggested. ?? For additional information please refer to http://Nexalogy.mention/faq/GZN00z4 (This link is being provided for informational/ educational purposes only.) ?? 11/12/2021 12:0 9 PM EDT Zev Sanders MD HISTORICAL/NON ORDERABLE LA BS Final Result Performing Organization Address City/[facility] Co de Phone Number [facility] [address] * (ABNORMAL) LIPID PANEL, STANDARD (11/12/2021 [...] ?? Hilario MOON et al. JUANA. 2013;310(19): 0948-8405 ?? (http://education.9You.Beetle Beats/faq/XCI700) Non-HDL Cholesterol 129 <130 mg/dL (calc) [facility] Comment: For patients with diabetes plus 1 major ASCVD risk ?? factor, treating to a non-HDL-C goal of <100 mg/dL ?? (LDL-C of <70 mg/dL) is considered a therapeutic ?? option. Triglycerides 120 <150 mg/dL [facility] 11/12/2021 12:0 9 PM EDT us Zev Sanders MD LAB BLOOD ORDERABLES Final Result [facility] [address] * Mammography Report 1 (10/17/2021 2:30 [...] Most Recently Relevant to Health Maintenance Insurance [employer] Care Teams Modern And Contemporary Art Curator Relationship Specialty Start Date End Date Zev Sanders MD [address] [place] [phone] PCP - General Internal Medicine 11/16/19
--- OUTSIDE RECORDS SUMMARY | 2024-06-30 14:58 | XMS_ITS | Encounter Summary ---
Author Organization [employer] [facility] Address [address] [place] [address] Care Team Providers Care Soft Crab Shedder Name Role Phone Zev Sanders MD Primary Care Provider [phone] Encounter Details Date Type Department Care Team ([facility] Contact Info) Description 12/24/2022 Orders Only [facility] [address] [place] [address] ProviderJosh MD Social History Tobacco Use Types [...] Department Care Team (Late Contact Info) Description 08/10/2024 2:00 PM EDT Office Visit [facility] [address] [place], [place] [phone] Zev Sanders MD [address] [place], [place] [phone] documented as of this encounter Procedures Procedure Name Priority Date/Time Associated Diagnosis Comments HM PAP/HPV Routine 01/15/2022 documented in this encounter Results * Hm Pap Smear (01/15/2022) Historical Provider HEALTH MAINTENANCE Final Result documented in this encounter Visit Diagnoses Not on filedocumented in this encounter Care Teams Soft Crab Shedder Relationship Specialty Start Date End Date Zev Sanders MD [address] [place] [phone] PCP - General Internal Medicine 11/16/19 documented as of this encounter
--- OUTSIDE RECORDS SUMMARY | 2024-06-30 14:58 | XMS_ITS | Encounter Summary ---
Author Organization [email or web address] Address [address] [facility] [address] [place] [address] Care Team Providers Care Renewable Energy Project Manager Name Role Phone Zev Sanders MD Primary Care Provider [phone] Reason for Visit * Reason Comments Transition Of Care (Tcm) Encounter Details Date Type Department Care Team ([facility] Contact Info) Description 06/21/2024 Patient Outreach [facility] [address] [place] [address] Zev Sanders MD [address] [place] [address] Transition Of Care (Tcm) Social History Tobacco Use Types Packs/Day Years [...] as of this encounter Progress Notes * Kesha Hdz RN - 06/21/2024 11:40 AM EDT Transition of Care Note Deysi Izquierdo is going through a recent transition of care. * Nedra Tobin RN - 06/21/2024 11:40 AM EDT Hospital Discharges and Admission for [facility] Type of Visit: Emergency Department Date of Admission/Visit: 06/19/24 Date of Discharge: 04/06/24 Facility: [facility] Diagnosis: SOB, RIB PAIN Disposition: Left AMA Follow-Up Actions Follow-Up Needed: Provider appointment Follow-Up Outcome: Spoke to Patient Initial Contact Date: 06/29/24 Patient Contacted: Yes Patient Status: Unchanged The full discharge summary is Is available under encounters/interface Review Flowsheet [facility] Transition of Care Documentation Type of Visit Date of Admission/Visit Date of Discharge Facility Diagnosis Disposition 04/09/2024 4:35 PM Hospital Admission 04/06/2024 04/08/2024 [facility] pending Discharged Home 04/12/2024 8:57 AM Hospital Admission 04/06/2024 04/08/2024 [facility] Pneumonia , RSV Discharged Home 04/14/2024 2:37 PM Hospital Admission 04/06/2024 04/08/2024 [facility] Pnuemonia , RSV Discharged Home 04/21/2024 3:10 PM Hospital Admission 04/04/2024 04/06/2024 [facility] Dyspnea Discharged Home 06/21/2024 11:40 AM Emergency Department 06/19/2024 - [facility] SOB, RIB PAIN Left AMA Recent Visits Date Type Provider Dept 05/10/24 Office Visit Zev Sanders MD [facility] 10/14/23 Office Visit Zev Sanders MD [facility] Showing recent visits within past 365 days with a meds authorizing provider and meeting all other requirements Future Appointments Date Type Provider Dept 08/10/24 Appointment Zev Sanders MD [facility] Showing future appointments within next 150 days with a meds authorizing provider and meeting all other requirements Patient was educated on hours of operation. documented in this encounter Plan of Treatment Upcoming Encounters Date Type Department Care Team (Late st Contact Info) Description 08/10/2024 2:00 PM EDT Office Visit [facility] MED [facility] PEDS [address] [place] [address] Zev Sanders MD [address] [place] [address] documented as of this encounter Visit Diagnoses Not on filedocumented in this encounter Additional Health Concerns Assessment Noted Time PHQ-9 Depression Total Score: 7 10/14/19 24 11:59 AM EDT documented as of this encounter Care Teams Renewable Energy Project Manager Relationship Specialty Start Date End Date Zev Sanders MD [address] [place] [address] PCP - General Internal Medicine 11/16/19 documented as of this encounter
--- OUTSIDE RECORDS SUMMARY | 2024-06-30 14:58 | XMS_ITS | Encounter Summary ---
Author Organization [employer] Address [address] [facility] [address] [place] [address] Care Team Providers Care Hat Copyist Name Role Phone Zev Sanders MD Primary Care Provider [phone] Reason for Visit * Reason Onset Date Comments Appointment Request 11/01/2022 Encounter Details Date Type Department Care Team ([facility] st Contact Info) Description 11/01/2022 Telephone [facility]S [address] [place], [place] [phone] Zev Sanders MD [address] [place] [address] Appointment Request Social History Tobacco Use Types [...] PE on 10/24/2022. Please contact pt at [phone] documented in this encounter Plan of Treatment Upcoming Encounters Date Type Department Care Team (Late st Contact Info) Description 08/10/2024 2:00 PM EDT Office Visit [facility] [address] [place] [address] Zev Sanders MD [address] [place] [address] documented as of this encounter Visit Diagnoses Not on filedocumented in this encounter Care Teams Hat Copyist Relationship Specialty Start Date End Date Zev Sanders MD [address] [place] [address] PCP - General Internal Medicine 11/16/19 documented as of this encounter
[2024-06-30 15:48] LABS: Influenza A PCR NEGATIVE (Negative); Influenza B PCR NEGATIVE (Negative); Resp Syncy Virus RNA Qual PCR NEGATIVE (Negative); SARS COV2 PCR INHOUSE NEGATIVE (Negative)
[2024-06-30] MEDS: 0.9 % Sodium Chloride Flush 3 ML SYRINGE IVFLUSH (17:01)
[2024-06-30] MEDS: Albuterol/Iprat 2.5/0.5MG 3 ML AMPUL.NEB INHALE ×2 (17:15→19:45)
[2024-06-30 17:31] LABS: Troponin-I High Sensitivity 12.4 ng/L (<3.5-17.0)
--- NOTE | 2024-06-30 18:06 | PC.NURSE ---
assumed care of patient at 1745, patient is awake and alert, resp even and unlabored, currently on 4lNC. patient appears comfortable at this time. patient son requesting she get her oxycodone that was due at 1400, per MAR patient got oxycodone at 1708 per last RN, patient son states patient did not receive med. ED charge nurse notified of discrepancy, patient family updated that the situation is being looked into and we will help patient with pain medication when resolved, patient family appears to be agreeable. patient skin dry and intact, commode at bedside. patient given call umaña and remote to TV
[2024-06-30] MEDS: oxyCODONE HCl Immed Release 5 MG TABLET PO (19:04)
--- NOTE | 2024-06-30 19:33 | PC.NURSE ---
this rn assumed care of pt, pt on 4l nc baseline offers no complaints at this time. dinner tray given to pt.
--- NOTE | 2024-06-30 19:44 | PC.NURSE ---
respiratory at bedside for duoneb on pt.
--- NOTE | 2024-06-30 20:53 | PC.NURSE ---
pyxis does not have available medications, pharmacy contacted at this time.
[2024-06-30] MEDS: Ibuprofen 600 MG TABLET PO (21:05)
[2024-06-30] MEDS: methylPREDNISolone Sod Succ 40 MG/ML VIAL IVPUSH (21:05)
[2024-06-30] MEDS: Montelukast Sodium 10 MG TABLET PO (21:05)
[2024-06-30] MEDS: Mirtazapine 15 MG TABLET 45 MG PO (21:05)
[2024-06-30] MEDS: Omeprazole 20 MG CAPSULE.DR PO (21:05)
[2024-06-30] MEDS: Pregabalin 150 MG CAPSULE PO (21:05)
[2024-06-30] MEDS: QUEtiapine Fumarate 100 MG TABLET PO (21:05)
--- NOTE | 2024-06-30 21:09 | PC.NURSE ---
pt medicated per mar, tolerated well whole with water.
--- NOTE | 2024-06-30 21:35 | PC.NURSE ---
Report received from BIANCA Hutson. Taken over care at this time.
--- NOTE | 2024-06-30 22:07 | PC.NURSE ---
Pt. refusing medication at this time, informed pt to inform RN, if she needs to take it, it is available.
[2024-07-01] VITALS (10 sets, daily range): BP systolic 123–162; BP diastolic 60–92; PULSE 56–83; RESP 15–22; TEMP 36.6–36.7; O2SAT 89–98; BMI 20.4
--- NOTE | 2024-07-01 02:38 | MHC.EDTECH ---
pt ambulated to the bathroom with no problems
[2024-07-01] MEDS: Acetaminophen 325 MG TABLET 650 MG PO ×2 (04:35→12:06)
[2024-07-01 05:41] LABS: Troponin-I High Sensitivity 3.4 ng/L (<3.5-17.0)
[2024-07-01] MEDS: Albuterol/Iprat 2.5/0.5MG 3 ML AMPUL.NEB INHALE ×4 (08:24→19:35)
[2024-07-01] MEDS: Fluticasone/Vilanterol 100/25 BLST.W.DEV 1 PUFF INHALE (08:24)
[2024-07-01] MEDS: Tiotropium Bromide 2.5 mcg 1 PUFF/2.5 MCG MIST.INHAL 2 PUFF INHALE (08:24)
[2024-07-01] MEDS: Pregabalin 150 MG CAPSULE PO ×2 (08:46→21:17)
[2024-07-01] MEDS: lisinopriL 10 MG TABLET PO (08:46)
[2024-07-01] MEDS: oxyCODONE HCl Immed Release 5 MG TABLET PO ×3 (08:46→20:02)
[2024-07-01] MEDS: Cholecalciferol (Vitamin D3) 25 MCG TABLET 50 MCG PO (08:47)
[2024-07-01] MEDS: methylPREDNISolone Sod Succ 40 MG/ML VIAL IVPUSH ×2 (08:53→21:17)
[2024-07-01] MEDS: 0.9 % Sodium Chloride Flush 3 ML SYRINGE IVFLUSH ×2 (08:56→15:06)
[2024-07-01] MEDS: Ibuprofen 600 MG TABLET PO ×2 (09:03→17:05)
[2024-07-01] MEDS: Omeprazole 20 MG CAPSULE.DR PO (10:25)
--- NOTE | 2024-07-01 12:50 | P.DS_ITS ---
DS: Providers Provider Date of Service: 07/02/24 Date of admission: 06/30/24 15:53 Date of discharge: 07/02/24 Primary care physician: Zev Sanders MD Attending physician on discharge: Marcia Mejia Discharging clinician: Marcia Mejia DS: Diagnosis Discharge Diagnosis (1) Acute exacerbation of chronic obstructive pulmonary disease: Status: Acute DS: Summary Hospital Course Hospital Course: HPI:54-year-old female with a PMH significant for?COPD on 4L home O2 at baseline, HTN, RUELAS, GERD, and mood disorder who presents to the ED with?SOB and difficulty breathing the past few days, worsening last night. Reports awoke this morning and could not breathe so called EMS. When EMS arrived they placed her rescue CPAP, administered DuoNebs, Solu-Medrol, and Mag IV. Pt then transitioned to 3.5L NC in the ED. Pt reports was recently increased to 4 L home O2. Has recently had 2 episodes of pneumonia with last approximately 1 month ago. Also complains of intermittent chest pain sometimes associated with deep breathing and cough. Reproducible with palpation. Denies fever, chills. Occasional mostly nonproductive cough. No fever or chills. Denies nausea, vomiting, abdominal pain. In the ED pt was tachypneic up to 22, hypertensive up to 149/91, and satting at 97% on 3.5 L NC. Labs were grossly unremarkable and around baseline for pt. No leukocytosis. Stable H&H. No significant electrolyte abnormalities. Renal and hepatic function WNL. Lactic acid WNL at 1.4. CXR showed COPD without acute cardiopulmonary abnormality. EKG demonstrated normal sinus rhythm without evidence of significant ST elevations or depressions. Pt was treated with DuoNebs x2, Solu-Medrol 125 mg IV, Mag 2 g IV , and placed on CPAP by EMS. In the ED here was treated with additional DuoNeb. Pt will be admitted to the hospital for treatment and further evaluation of acute on chronic hypoxic respiratory failure in the setting of COPD exacerbation. Hospital course: 54y/o F with pmhx COPD on 4L home O2 at baseline, HTN, RUELAS, GERD, chronic back pain, and mood disorder who presents to the ED with?SOB and difficulty breathing: admitted for Acute asthma(moderate persistent)/COPD overlap exacerbation: started on nebs, steroids, cough medication patient seems to be improved with the above supportive care, shortness of breath seems to be resolved, patient is ambulating fine. Patient will be going home with p.o. prednisone 40 mg daily. Chest pain:Intermittent, associated with deep breathing or cough,Reproducible with palpation, troponins 12.4 and 3.4 . improved with cough medication , no new symptoms. plan: p.o. prednisone 40 mg daily for 4 days cough medication prn.. Above management discussed with the patient in detail length she understand and in agreement with the above plan, time spent 40 minutes . Time Attestation Total time managing care of this patient today: 40 mintues. Discharge Coordination Time (in mins): 40 min Quality: Safe Use of Opioids Does Pt have an Active Cancer Diagnosis on the Problem List?: No Quality: Stroke Does the patient have a stroke diagnosis?: No Physical Exam Vital Signs: Vital Signs: Last Vital Signs Temp 98.1 F 07/01/24 08:23 Pulse 72 07/01/24 11:29 Resp 18 07/01/24 11:29 BP 159/92 H 07/01/24 08:23 Pulse Ox 89 L 07/01/24 11:03 O2 Del Method Nasal Cannula 07/01/24 08:23 O2 Flow Rate 4 07/01/24 08:23 Oxygen Flow Rate 3.5 06/30/24 11:35 BMI result Body Mass Index 20.4 Appearance: Alert.? Oriented X3.? cvs: rrr, [id number] . res: clear to auscultation ,no rhonchii or wheezing abd: no rebound or guarding ,nt, bs present. ext pulses present , no cyanosis. neuro: axo3 , nonfocal. DS: Data Data Completed and Pending Labs on day of discharge: Laboratory Results - last 24 hr 06/30/24 06/30/24 06/30/24 12:41 14:58 17:07 Lactic Acid 1.4 Troponin I High Sens 12.4 D Influenza Type A (PCR) NEGATIVE Influenza Type B (PCR) NEGATIVE RSV RNA Qual (PCR) NEGATIVE SARS-CoV-2 RNA (RT-PCR) NEGATIVE 07/01/24 05:02 Lactic Acid Troponin I High Sens 3.4 D Influenza Type A (PCR) Influenza Type B (PCR) RSV RNA Qual (PCR) SARS-CoV-2 RNA (RT-PCR) Imaging Chest x-ray: Radiologist's impression: ITS Impressions Chest X-Ray 06/30/24 11:40 IMPRESSION: COPD. No acute cardiopulmonary abnormality. Discharge Plan Discharge Anticipated Discharge Date/Time: 07/01/24 12:43 Patient Disposition: Home, Self-Care Discharge Diagnosis: copd execerebation Referrals: Zev Sanders MD [Primary Care Provider] - 1 Week Discharge Medications: New prednisone 20 mg tablet 40 mg PO DAILY Qty: 8 0RF Continued montelukast 10 mg tablet 10 mg PO BEDTIME Qty: 30 3RF ipratropium-albuterol 0.5 mg-3 mg(2.5 mg base)/3 mL solution for nebulization 3 ml inhalation Q6-8H PRN (Reason: for wheezing) Qty: 360 1RF albuterol sulfate [Ventolin HFA] 90 mcg/actuation HFA aerosol inhaler 2 puff inhalation QID PRN (Reason: for wheezing) Qty: 18 3RF oxycodone 5 mg tablet 5 mg PO TID PRN (Reason: pain) 30 Days Qty: 90 0RF Rx Instructions: Partial Fill upon patient request. lisinopril 10 mg tablet 10 mg PO DAILY pregabalin 150 mg Capsule 150 mg PO BID budesonide-formoterol [Symbicort] 160-4.5 mcg/actuation HFA aerosol inhaler 2 puff inhalation BID Spiriva Respimat 2.5 mcg/actuation mist 2 puff inhalation DAILY quetiapine [Seroquel] 100 mg tablet 100 mg PO BEDTIME mirtazapine 45 mg tablet 45 mg PO BEDTIME esomeprazole magnesium 40 mg capsule,delayed release(DR/EC) 40 mg PO BEDTIME cholecalciferol (vitamin D3) 50 mcg (2,000 unit) tablet 50 mcg PO DAILY naloxone [Narcan] 4 mg/actuation spray,non-aerosol 4 mg intranasal Q2M PRN (Reason: opioid overdose) Qty: 2 0RF Rx Instructions: spray 1 dose into ONE nostril; alternate nostrils w each dose until help arrives ibuprofen 600 mg tablet 600 mg PO Q8H PRN (Reason: fever or pain) Qty: 30 0RF Held prednisone 5 mg tablet 5 mg PO DAILY Qty: 30 3RF Hold Instructions: Resume on 07/05/24. Discharge Orders: Discharge Order (Routine); Ordered 07/02/24 Ordered By: Marcia Mejia Diet: Advance to usual diet Activity on Discharge: As tolerated Stand Alone Forms: Patient Portal Discharge page Print Language: Portuguese Care Plan Goals: 54y/o F with pmhx COPD on 4L home O2 at baseline, HTN, RUELAS, GERD, chronic back pain, and mood disorder who presents to the ED with?SOB and difficulty b reathing: admitted for Acute asthma(moderate persistent)/COPD overlap exacerbation: started on nebs, steroids, cough medication patient seems to be improved with the above supportive care, shortness of breath seems to be resolved, patient is ambulating fine. Patient will be going home with p.o. prednisone 40 mg daily Health Concerns: Prednisone 40 mg daily for 4 days. Plan of Treatment: As above. Assessment: As above.
--- NOTE | 2024-07-01 13:17 | MHC.CM.PN ---
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
--- NOTE | 2024-07-01 13:55 | P.PNIM_ITS ---
Subjective Subjective Date of Service: 07/01/24 Interval History: sob Review of Systems Patient is still shortness of breath with minimal exertion, still has lot of cough also. She does not feel her respiratory status is optimal yet Review of Systems: Yes all other systems are reviewed and are negative Physical Exam 2 Vital Signs: Vital Signs: Last Vital Signs Temp 98.1 F 07/01/24 08:23 Pulse 72 07/01/24 11:29 Resp 18 07/01/24 11:29 BP 159/92 H 07/01/24 08:23 Pulse Ox 89 L 07/01/24 11:03 O2 Del Method Nasal Cannula 07/01/24 08:23 O2 Flow Rate 4 07/01/24 08:23 Oxygen Flow Rate 3.5 06/30/24 11:35 BMI result Body Mass Index 20.4 General: AOx3, no acute distress Resp: Diffuse expiratory wheezing bilatearally CVS: S1, S2, RRR GI: +BS, NT, no distention Skin: Warm, dry Neuro: nonfocal Objective Data Active Medications Acetaminophen (Acetaminophen 325 Mg Tablet) 650 mg PO Q6H PRN PRN Reason: Pain, Mild 1-3,fever,headache Last Admin: 07/01/24 12:06 Dose: 650 mg Documented By: BRENTON Albuterol/Ipratropium (Albuterol/Iprat 2.5/0.5mg 3 Ml Ampul.Neb) 3 ml INHALE RQ4H WHILE AWAKE [facility] Last Admin: 07/01/24 11:27 Dose: 3 ml Documented By: LYNSNEETU Albuterol/Ipratropium (Albuterol/Iprat 2.5/0.5mg 3 Ml Ampul.Neb) 3 ml INHALE RQ4H WHILE AWAKE PRN PRN Reason: Shortness of Breath/Wheezing Calcium Carbonate (Calcium Carbonate 750 Mg Tab.Chew) 750 mg PO Q4H PRN PRN Reason: Heartburn Enoxaparin Sodium (Enoxaparin Sodium 40 Mg/0.4 Ml Syringe) 40 mg SUBCUT Q24H [facility] Last Admin: 06/30/24 18:58 Dose: Not Given Documented By: JAELYN Non-Admin Reason: See Note Fluticasone/Vilanterol (Fluticasone/Vilanterol 100/25 Blst.W.Dev) 1 puff INHALE RDAILY [facility] Last Admin: 07/01/24 08:24 Dose: 1 puff Documented By: AYESHA Guaifenesin/Dextromethorphan (Guaifenesin Dm 200/20/10 Ml 10 Ml Syrup) 10 ml PO Q4H PRN PRN Reason: Cough Ibuprofen (Ibuprofen 600 Mg Tablet) 600 mg PO Q8H PRN PRN Reason: Pain, Mild 1-3,fever,headache Last Admin: 07/01/24 09:03 Dose: 600 mg Documented By: BRENTON Lisinopril (Lisinopril 10 Mg Tablet) 10 mg PO DAILY [facility]; Protocol Last Admin: 07/01/24 08:46 Dose: 10 mg Documented By: BRENTON Magnesium Hydroxide (Milk Of Magnesia 30 Ml Oral.Susp) 30 ml PO DAILY PRN PRN Reason: Constipation Melatonin (Melatonin 3 Mg Tablet) 6 mg PO BEDTIME PRN PRN Reason: Insomnia Methylprednisolone Sodium Succinate (Methylprednisolone Sod Succ 40 Mg/Ml Vial) 40 mg IVPUSH Q12H [facility] Last Admin: 07/01/24 08:53 Dose: 40 mg Documented By: BRENTON Mirtazapine (Mirtazapine 15 Mg Tablet) 45 mg PO BEDTIME [facility] Last Admin: 06/30/24 21:05 Dose: 45 mg Documented By: MARIE Montelukast Sodium (Montelukast Sodium 10 Mg Tablet) 10 mg PO BEDTIME [facility] Last Admin: 06/30/24 21:05 Dose: 10 mg Documented By: MARIE Omeprazole (Omeprazole 20 Mg Capsule.) 20 mg PO DAILY@0630 [facility] Last Admin: 07/01/24 10:25 Dose: 20 mg Documented By: BRENTON Ondansetron HCl (Ondansetron Hcl 4 Mg/2 Ml Vial) 4 mg IVPUSH Q8H PRN PRN Reason: Nausea and Vomiting Oxycodone HCl (Oxycodone Hcl Immed Release 5 Mg Tablet) 5 mg PO TID PRN PRN Reason: Pain, Moderate(Pain Scale 4-6) Last Admin: 07/01/24 08:46 Dose: 5 mg Documented By: BRENTON Pregabalin (Pregabalin 150 Mg Capsule) 150 mg PO BID [facility] Last Admin: 07/01/24 08:46 Dose: 150 mg Documented By: BRENTON Quetiapine Fumarate (Quetiapine Fumarate 100 Mg Tablet) 100 mg PO BEDTIME [facility] Last Admin: 06/30/24 21:05 Dose: 100 mg Documented By: MARIE Sodium Chloride (0.9 % Sodium Chloride Flush 3 Ml Syringe) 3 ml IVFLUSH QSHIFT [facility] Last Admin: 07/01/24 08:56 Dose: 3 ml Documented By: BRENTON Tiotropium [place] (Tiotropium [place] 2.5 Mcg 1 Puff/2.5 Mcg Mist.Inhal) 2 puff INHALE RDAILY [facility] Last Admin: 07/01/24 08:24 Dose: 2 puff Documented By: AYESHA Vitamin D (Cholecalciferol (Vitamin D3) 25 Mcg Tablet) 50 mcg PO DAILY [facility] Last Admin: 07/01/24 08:47 Dose: 50 mcg Documented By: BRENTON Labs 06/30/24 11:42 06/30/24 11:42 Labs: Laboratory Results - last 24 hr 06/30/24 14:58 Influenza Type A (PCR) NEGATIVE Influenza Type B (PCR) NEGATIVE RSV RNA Qual (PCR) NEGATIVE SARS-CoV-2 RNA (RT-PCR) NEGATIVE Assessment and Plan (1) Acute exacerbation of chronic obstructive pulmonary disease: Status: Acute Plan 54-year-old female with a PMH significant for?COPD on 4L home O2 at baseline, HTN, RUELAS, GERD, chronic back pain, and mood disorder who presents to the ED with?SOB and difficulty breathing the past few days, worsening last night. In the ED here was treated with additional DuoNeb. Pt will be admitted to the hospital for treatment and further evaluation of acute on chronic hypoxic respiratory failure in the setting of COPD exacerbation. Acute asthma/COPD overlap exacerbation On 4 L home Shortness of breaths seem improving somewhat but still very short of breath with exertion, she says it is interfering with her function, does not feel optimal yet Continue DuoNebs, Solu-Medrol, guaifenesin Titrate supplemental oxygen to O2 >90, wean as tolerated Monitor respiratory status Chest pain Intermittent, associated with deep breathing or cough Reproducible with palpation trop negative/flat Chronic back pain Follows with pain management outpatient Continue home opioids, pregabalin HTN Continue lisinopril GERD Continue PPI Mood disorder Continue mirtazapine, quetiapine Quality Stroke Does the patient have a stroke diagnosis?: No VTE Prior VTE?: No VTE Risk Level:: Medical - moderate - high VTE Device Contraindication: Treatment Not Indicated VTE Drug Contraindication: N/A - Med Ordered
[2024-07-01] MEDS: Loratadine 10 MG TABLET PO (14:40)
[2024-07-01] MEDS: Magnesium Sulfate/D5W 1 GM/100 ML PIGGYBACK IV (14:49)
[2024-07-01] MEDS: Montelukast Sodium 10 MG TABLET PO (21:17)
[2024-07-01] MEDS: QUEtiapine Fumarate 100 MG TABLET PO (21:17)
[2024-07-01] MEDS: Mirtazapine 15 MG TABLET 45 MG PO (21:17)
[2024-07-02] VITALS (7 sets, daily range): BP systolic 138–149; BP diastolic 70–94; PULSE 79–103; RESP 16–20; TEMP 36.1–37; O2SAT 94–98
[2024-07-02] MEDS: Acetaminophen 325 MG TABLET 650 MG PO ×2 (02:58→13:02)
[2024-07-02] MEDS: Omeprazole 20 MG CAPSULE.DR PO (06:16)
[2024-07-02] MEDS: methylPREDNISolone Sod Succ 40 MG/ML VIAL IVPUSH (07:22)
[2024-07-02] MEDS: Loratadine 10 MG TABLET PO (07:22)
[2024-07-02] MEDS: oxyCODONE HCl Immed Release 5 MG TABLET PO ×2 (07:22→13:02)
[2024-07-02] MEDS: Pregabalin 150 MG CAPSULE PO (07:22)
[2024-07-02] MEDS: Cholecalciferol (Vitamin D3) 25 MCG TABLET 50 MCG PO (07:23)
[2024-07-02] MEDS: lisinopriL 10 MG TABLET PO (07:23)
[2024-07-02] MEDS: Fluticasone/Vilanterol 100/25 BLST.W.DEV 1 PUFF INHALE (08:04)
[2024-07-02] MEDS: Albuterol/Iprat 2.5/0.5MG 3 ML AMPUL.NEB INHALE ×3 (08:04→15:16)
[2024-07-02] MEDS: Tiotropium Bromide 2.5 mcg 1 PUFF/2.5 MCG MIST.INHAL 2 PUFF INHALE (08:04)
[2024-07-02] MEDS: Ibuprofen 600 MG TABLET PO (09:13)
--- NOTE | 2024-07-02 11:39 | MHC.CM.PN ---
Addendum entered by Shila Connor RN 07/02/24 12:07: Patient requesting BLS transport for O2. Booked for 330pm. Patient and RN aware. Original Note: Patient medically cleared for dc home self care via private transport.
== END 2024-07-02 15:40 | disposition home or self-care (01) ==
LOC: HO.ED 13:17 → HO.EDOVER 16:21 → HO.S3 07-01 07:14
PROVIDERS: Admitting Provider Student in an Organized Health Care Education/Training Program; Emergency Provider Emergency Medicine; PCP Internal Medicine; Visit Provider Internal Medicine
DX: J44.1 Chronic obstructive pulmonary disease with (acute) exacerbation (principal); R07.9 Chest pain, unspecified; I10 Essential (primary) hypertension; R05.9 Cough, unspecified; K21.9 Gastro-esophageal reflux disease without esophagitis; M54.9 Dorsalgia, unspecified; G89.29 Other chronic pain; F39 Unspecified mood [affective] disorder; Z99.81 Dependence on supplemental oxygen; Z79.899 Other long term (current) drug therapy; Z03.818 Encounter for observation for suspected exposure to other biological agents ruled out
CPT/HCPCS: 0241U; 36415; 71045; 80053; 82803; 83605; 84484; 85025; 93005; 94640; 96365; 96375; 96376; 97162; 99221; 99285; J1650; J2919; J3475

== ENCOUNTER → 2024-06-30 11:39 | Outpatient (BNV) | payer MEDICAID, SELFPAY | PROVIDERS: Admitting Provider Student in an Organized Health Care Education/Training Program; Emergency Provider Emergency Medicine; PCP Internal Medicine; Visit Provider Internal Medicine | DX: R94.31 Abnormal electrocardiogram [ECG] [EKG] (principal); R07.9 Chest pain, unspecified; R06.02 Shortness of breath | CPT/HCPCS: 93010 ==

== ENCOUNTER → 2024-06-30 11:40 | Outpatient (BNV) | payer MEDICAID, SELFPAY | PROVIDERS: Emergency Provider Emergency Medicine; PCP Internal Medicine; Visit Provider Radiology Diagnostic Radiology | DX: J44.9 Chronic obstructive pulmonary disease, unspecified (principal) | CPT/HCPCS: 71045 ==

== ENCOUNTER → 2024-06-30 15:53 | Outpatient (BNV) | payer MEDICAID, SELFPAY | PROVIDERS: Admitting Provider Student in an Organized Health Care Education/Training Program; Emergency Provider Emergency Medicine; PCP Internal Medicine; Visit Provider Student in an Organized Health Care Education/Training Program | DX: J44.1 Chronic obstructive pulmonary disease with (acute) exacerbation (principal) | CPT/HCPCS: 99223; 99231; 99239 ==

== ENCOUNTER 2024-07-15 13:50 | Outpatient (AMB) | payer MEDICAID, SELFPAY ==
--- NOTE | 2024-07-15 13:53 | A.OFFVIS_ITS ---
Vital Signs 07/15/24 14:01 Height 5 ft 4 in Weight 121 lb 4 oz BMI 20.8 BP 116/59 L Blood Pressure Location Lt brachial Position Sitting Pulse 95 Pulse Source Pulse Oximeter Pulse Oximetry (%) 95 Oxygen Delivery Method Nasal Cannula Oxygen Flow Rate 2 Intake Visit Reasons: Pill count Intake Note: Deysi comes in today for a pill count to oxycodone, patient should have 54 tablets and presents with 56 tablets which she last took today 07/15/24 at 1pm. 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 She is supposed to have #54 pills in her possession and presents with #56 pills. This demonstrates a responsible attitude in regards to her opioid regimen. She reports reasonable analgesia on her current regime, except ongoing right ankle pain. Pain is rated at 7/10. She sprained her right ankle 2 months ago while assisting her family with fixing a curtain while standing on her tip toes and her right foot inverted and she felt a pop. She was seen at our ER on 05/14/24 and imaging was normal and was seen by Orthopedics last month with pending physical therapy for partial Achilles tendon rupture. Patient denies any fever, chills, weight loss, abdominal or groin pain, constipation, urinary retention, sedation, nausea, vomiting, constipation, sedation, dizziness, or urinary retention. [facility] Medical History Current non-smoker but past smoking history unknown Respiratory failure with hypoxia COPD exacerbation Pre-op examination History of OCD (obsessive compulsive disorder) History of panic attacks Anxiety and depression Radiculopathy, lumbar region HTN (hypertension) Sacroiliitis COPD (chronic obstructive pulmonary disease) Asthma Allergic rhinitis Disc degeneration, lumbar Surgical History History of surgery History of appendectomy Hx of tonsillectomy Status post excision of lipoma History of tubal ligation Hx of excision of mass History of surgery History of laparoscopic cholecystectomy History of esophagogastroduodenoscopy (EGD) History of umbilical hernia repair History of incision and drainage Family History Family/Other Cervical cancer Family/Other Stomach cancer Social History Household Members: Significant Other and Family Household Members Other:: grandson Housing: Apartment Do you presently have visiting nurse or other home services: No Alcohol intake: never Comment: Significant other bedside Patient Tobacco Use Status: Former Tobacco user Tobacco use type: Cigarette Substance Use Type: Marijuana Advance Directives Date on File: 04/09/24 service: No Current occupational status: unemployed Sexual orientation: Straight/Heterosexual Gender identity: Female Review of Systems Const All systems reviewed & are unremarkable except as noted in HPI and below Physical Exam Vital Signs: Last Vital Signs Pulse 95 07/15/24 14:01 BP 116/59 L 07/15/24 14:01 Pulse Ox 95 07/15/24 14:01 Oxygen Delivery Method Nasal Cannula 07/15/24 14:01 Oxygen Flow Rate 2 07/15/24 14:01 BMI result Body Mass Index 20.8 General: Appears afebrile. No acute distress. Alert and oriented. Mood and affect appropriate. Pleasant. Follows and participates in conversation appropriately. Respiratory effort is unlabored. No cough. O2 at 3L/min continuos. Able to transition from sit to stand unassisted. Ambulates with antalgic gait, mild limping. Extrem Right lower extremity: ankle (Limited ROM due to pain) Details: tenderness Location: of the lateral malleolus and of the medial malleolus and no edema; no unusual warmth, no lacerations and no ecchymosis Psych Appearance: grossly normal and well kempt Mental Status: mental status grossly normal Speech and movement: Normal speech and movement present Affect: normal affect Attitude: cooperative Thought process: Normal thought process present Thought content: Normal thought content present, suicidality (none), no hallucinations and Depressive thoughts present Insight: Good insight present (Psych) Judgement: Good judgement present (Psych) Results Reviewed Results Reviewed: XR ANKLE 3 OR MORE VIEWS RIGHT 05/14/24 HISTORY: pain COMPARISON: There are no prior studies available for comparison. FINDINGS: Three views of the right ankle are submitted. Osseous mineralization is normal. There is no fracture or dislocation. The joint spaces are preserved. The soft tissues are unremarkable. IMPRESSION: Unremarkable examination of the right ankle. Assessment & Plan Assessment & Plan (1) Right ankle sprain: Code(s): S93.401A - Sprain of unspecified ligament of right ankle, initial encounter Category: Medical (2) Opioid contract exists: Code(s): Z79.891 - retirement (current) use of opiate analgesic Category: Medical (3) Cervicalgia: Code(s): M54.2 - Cervicalgia Category: Medical (4) Disc degeneration, lumbar: Code(s): M51.36 - Other intervertebral disc degeneration, lumbar region Category: Medical (5) Spondylosis of lumbar region without myelopathy or radiculopathy: Code(s): M47.816 - Spondylosis without myelopathy or radiculopathy, lumbar region Category: Medical Plan Patient has shown accountability for her medication regimen and the pill count was accurate. Masspat was reviewed and without concerns. No obvious signs of diversion, abuse or misuse of the opioid medications. Patient reports reasonable analgesia on current medication regime. Prescription sent for Oxycodone 5mg po TID prn with an advanced date of 08/01/24. Patient has Narcan script at home. She also takes pregabalin 150 mg BID prescribed by her PCP. Patient underwent Orthopedic evaluation for recent right ankle sprain 2 months ago and was told partial Achilles tendon rupture. She has pending physical therapy. Patient to follow-up in the office in one month for pill count and sooner as needed. Medications: Refilled oxycodone Partial Fill upon patient request. 5 mg PO TID 30 days PRN 90 tabs 0RF pain M46.1 - Sacroiliitis, not elsewhere classified, M47.816 - Spondylosis without myelopathy or radiculopathy, lumbar region, M51.36 - Other intervertebral disc degeneration, lumbar region Coding Level of Care Code Est Pt Level 4 (49670) Complex EM visit Add On G2211 Diagnoses Right ankle sprain S93.401A Opioid contract exists Z79.891 Cervicalgia M54.2 Disc degeneration, lumbar M51.36 Spondylosis of lumbar region without myelopathy or radiculopathy M47.816
[2024-07-15 14:01] VITALS: BP 116/59; PULSE 95; O2SAT 95; BMI 20.8
--- OUTSIDE RECORDS SUMMARY | 2024-07-15 16:55 | XMS_ITS | Encounter Summary ---
Author Organization [facility] Address [address] [place] [address] [address] [place] [address] Care Team Providers Care Kindergarten Prep Teacher Name Role Phone Zev Sanders MD Primary Care Provider [phone] Reason for Visit * Reason Comments Med Refill Encounter Details Date Type Department Care Team ([facility] Contact Info) Description 11/05/[address] [facility] [address] [place] [address] Zev Sanders MD [address] [place] [address] Chronic low back pain, unspecified back pain [...] Encounters Date Type Department Care Team ([facility] Contact Info) Description 08/10/2024 2:00 PM EDT Office Visit [facility] [address] [place] [address] Zev Sanders MD [address] [place], [place] [phone] documented as of this encounter Visit Diagnoses Diagnosis Chronic low back pain, unspecified back pain laterality, unspecified whether sciatica present documented in this encounter Care Teams Kindergarten Prep Teacher Relationship Specialty Start Date End Date Zev Sanders MD [address] [place] [id number] PCP - General Internal Medicine 11/16/19 documented as of this encounter
--- OUTSIDE RECORDS SUMMARY | 2024-07-15 16:55 | XMS_ITS | Clinical Summary ---
Author Organization [employer] Address [address] [place] [address] Care Team Providers Care Rubbish Collection Supervisor Name Role Phone Zev Sanders MD Primary Care Provider [phone] Allergies No known active allergies Medications tiotropium (Spiriva Respimat) 2.5 MCG/ACT inhalerIndicat ions:COPD (chronic obstructive pulmonary disease) case management patient (CMS/HCC) INHALE TWO PUFF BY MOUTH EVERY MORNING 4 g 5 06/19/19 23 Active budesonide-for moterol (Symbicort) 160-4.5 MCG/ACT inhaler [...] bedtime for severe pain. 04/04/19 25 Active naloxone (Narcan) 4 mg/0.1 mL nasal [...] 72 mL 11 05/10/19 25 2025 Active lisinopril 10 MG tablet TAKE ONE TABLET EVERY MORNING 90 tablet 1 05/25/19 25 Active esomeprazole (NexIUM) [address] capsule TAKE ONE CAPSULE EVERY MORNING 90 capsule 1 05/25/19 25 Active pregabalin (Lyrica) 150 MG capsuleIndicat ions:Chronic low back pain, unspecified back pain laterality, unspecified whether sciatica present TAKE ONE CAPSULE TWICE DAILY IN THE MORNING AND AT BEDTIME 60 capsule 07/13/19 25 Active cholecalcifero l VITAMIN D (Vitamin D-3) 50 MCG (1999 UT) tablet TAKE ONE TABLET EVERY MORNING 90 tablet 07/10/19 25 Active QUEtiapine (SEROquel) 100 MG tablet Take 1 tablet (100 mg) by mouth at bedtime. 30 tablet 07/13/19 25 Active cholecalcifero l VITAMIN D (Vitamin D-3) 50 MCG (1999 UT) tablet TAKE ONE TABLET EVERY MORNING 90 tablet 03/29/20 24 2024 Discontinued QUEtiapine (SEROquel) 100 MG tablet Take 1 tablet by mouth at bedtime. 03/25/20 24 2024 Discontinued(R katieer (will not trigger notification to Pharmacy)) pregabalin (Lyrica) 150 MG capsuleIndicat ions:Chronic low back pain, unspecified back pain laterality, unspecified whether sciatica present TAKE ONE CAPSULE TWICE DAILY IN THE MORNING AND AT BEDTIME 60 capsule 06/03/19 25 2024 Discontinued Active Problems Problem Noted Date Diagnosed Date Olecranon bursitis, right elbow 03/29/2022 Asthma-chronic obstructive p ulmonary disease overlap syndrome 12/19/2017 Chronic back pain 12/19/2017 Essential hypertension 12/19/2017 Menopausal symptom 12/19/2017 Migraine 12/19/2017 Mood disorder 12/19/2017 Seasonal allergies 12/19/2017 Tobacco dependence syndrome 12/19/2017 Encounters Date Type Department Care Team Description 07/13/2024 Patient Outreach [facility] MEDICINE [address] [place] [phone] Zev Sanders MD Care Coordination (C3/CM Outreach) 07/08/2024 Patient Outreach [address] [address] Zev Sanders MD Care Coordination (C3/CM Outreach) 07/08/2024 Refill [facility] [address] [place] [address] Zev Sanders MD 07/07/2024 Refill [facility] [address] [place] [address] Zev Sanders MD Chronic low back pain, unspecified back pain laterality, unspecified whether sciatica present 07/02/2024 Patient Outreach [address] [address] Zev Sanders MD Care Coordination (C3/CM Outreach) 06/30/2024 Orders Only GENERIC EXTERNAL DATA DEPARTMENT Provider, Generic External Data 06/30/[address] [address] Zev Sanders MD FYI 06/25/2024 Patient Outreach [address] [address] Zev Sanders MD Care Coordination (C3/CM Outreach) 06/21/2024 Patient Outreach [address] [address] Zev Sanders MD Care Coordination (C3/CM Outreach) 06/21/2024 Patient Outreach [address] [address] Zev Sanders MD 06/21/2024 Patient Outreach [address] [address] Zev Sanders MD Transition Of Care (Tcm) 06/21/2024 Patient Outreach [facility] [address] [place] [address] Zev Sanders MD Care Coordination (C3CM chart review) 06/21/2024 Patient Outreach [address] [address] Zev Sanders MD 06/19/2024 Orders Only GENERIC EXTERNAL DATA DEPARTMENT Provider, Generic External Data 06/11/2024 Population Health Risk Score [facility] (C3) Department [address] [phone] Provider, Population Health Generic 06/01/2024 Refill [facility] [address] [place] [address] Zev Sanders MD Chronic low back pain, unspecified back pain laterality, unspecified whether sciatica present 05/25/2024 Refill [facility] [address] [place] [address] Zev Sanders MD 05/10/2024 1:15 PM EST Office Visit [facility] [address] [place] [address] Zev Sanders MD retirement (current) use of systemic steroids (Primary Dx); Asthma-chronic obstructive pulmonary disease overlap syndrome (CMS/HCC) 05/10/2024 Travel 05/06/2024 Telephone [facility] [address] [place] [address] Zev Sanders MD chart prep 05/06/2024 Telephone [facility] [address] [place] [address] Zev Sanders MD chart prep 05/04/2024 Refill [facility] [address] [place] [address] Zev Sanders MD Chronic low back pain, unspecified back pain laterality, unspecified whether sciatica present 2024 Orders Only [facility] External Provider, [facility] [address] [address] Zev Sanders MD Appointment Request 05/01/2024 Travel 04/29/2024 Telephone [facility] [address] [place] [address] Zev Sanders MD No Show 04/28/2024 Telephone [facility] [address] [place] [address] Zev Sanders MD CHART PREP 04/22/2024 Telephone [facility] [address] [place] [address] Zev Sanders MD Results 04/21/2024 Orders Only GENERIC EXTERNAL DATA DEPARTMENT Provider, Generic External Data 04/21/2024 Patient Outreach [facility] [address] [place] [address] Zev Sanders MD Transition Of Care (Tcm) (HDF scheduled. ) 04/21/2024 Patient Outreach [facility] [address] [place] [address] Zev Sanders MD Pre-visit Planning (SDOH will need to be completed in office. ) 04/20/2024 Telephone [facility] [address] [place] [address] Zev Sanders MD Nurse Triage from Last 3 Months Immunizations Name Administration [...] Description 08/10/2024 2:00 PM EDT Office Visit [facility] [address] [place] [address] Zev Sanders MD [address] [place] [address] Health Maintenance Due Date Last Done Comments [...] Procedure Name Priority Date/Time Associated Diagnosis Comments SARS COV2/INFLUENZA A/B AND RSV RNA QL NAAT Routine 06/30/2024 2:58 PM EDT XR CHEST 1 VIEW Routine 06/30/2024 11:40 [...] CULTURE (FIRST) Routine 06/19/2024 12:37 PM EDT [facility] US LOWER EXTREMITY VENOUS DUPLEX BILATERAL Routine 2024 1:18 PM EST [facility] US LOWER EXTREMITY VENOUS DUPLEX BILATERAL Routine 04/21/2024 3:56 PM EST PROTHROMBIN TIME-INR Routine 04/21/2024 3:22 PM EST COMPREHENSIVE METABOLIC PANEL Routine 04/21/2024 3:22 PM EST CBC WITH AUTO DIFFERENTIAL Routine 04/21/2024 3:22 PM EST LAB COLOGUARD?? COLON CANCER SCREEN Routine [...] Recently Relevant to Health Maintenance Results * SARS-CoV-2 RNA, Influenza A/B, and RSV RNA, Ql NAAT (06/30/2024 2:58 PM EDT) Influenza A PCR NEGATIVE Negative [facility] Influenza B PCR NEGATIVE Negative [facility] Resp Syncy Virus RNA Qual PCR NEGATIVE Negative [facility] SARS COV2 PCR NEGATIVE Negative [facility] Comment:All test results mus t be correlated with clinical findings.Negative results do not preclude SARS-CoV2, influenza Avirus, influenza B virus and/or RSV infectionand should not be used as the sole basis for treatment orother patient management decisions. Negative results must becombined with clinical observations, patient history, andepidemiological information.This test has not been evaluated for monitoring treatment ofinfection.This test has been authorized by the FDA under an EmergencyUse Authorization (EUA) for use by authorized laboratories.Testing performed on the [employer]achy[employer] GeneXpert utilizingreal-time RT-PCR.All SARS CoV2 and positive influenza A/B results arereported to [facility]. 06/30/2024 2:58 PM EDT 06/30/2024 3:03 PM EDT us Generic External Data Provider LAB MICROBIOLOGY - GENERAL ORDERABLES Final Result [facility] [address] [place] [address] [phone] * XR Chest 1 View (06/30/2024 11:40 AM EDT) Anatomical Region Laterality Modality Chest Radiographic Joy ging 06/30/2024 11:4 0 AM EDT Narrative 06/30/2024 12:45 PM EDT ? [facility] ?[address] ?[place] [address] ?XRay Report ? Signed ? Patient: Adelia Deysi Izquierdo ?MR#: ?? [id number] ? : 1970 ?Acct:[id number] ? Age/Sex: 54 / F ?ADM Date: 06/30/24 ? Loc: HO.ED ? Attending Dr: ? Ordering Physician: Demetrius Valdivia MD ?? Date of Service: 06/30/24 ?? Procedure(s): XR chest 1V ?? Accession Number(s): [id number] ? cc: Zev Sanders MD; Demetrius Valdivia [...] DD/ 1140 ? TD/TT: 06/30/24 1226 ? Freelance Writer: ? Procedure Note Donotuseinterpreter, Image - 06/30/[address] [address] XRay Report Signed Patient: Deysi Pfeiffer DMR#: [id number] : 1970Acct:[id number] Age/Sex: 54 / FADM Date: 06/30/24 Loc: HO.ED Attending Dr: Ordering Physician: Demetrius Valdivia MD Date of Service: 06/30/24 Procedure(s): XR chest 1V Accession Number(s): [id number] cc: Zev Sanders MD; Demetrius Valdivia MD [...] 06/30/24 1242 DD/ 1140 TD/TT: 06/30/24 1226 Freelance Writer: [facility] External Provider IMG XR PROCEDURES Edited Result - Final * CT Abdomen Pelvis w/ Contrast (06/19/2024 4:58 PM EDT) Anatomical Region Laterality Modality Body, Pelvis, Abdomen Computed T omography 06/19/2024 4:58 PM EDT Narrative 06/19/2024 4:59 PM EDT ? [facility] ?[address] ?[place] [address] ? CT Scan Report ? Signed ? Patient: Adelia Rubinoa,Deysi D ?MR#: ?? [id number] ? : 1970 ?Acct:[id number] ? Age/Sex: 54 / F ?ADM Date: 06/19/24 ? Loc: HO.ED ? Attending Dr: ? Ordering Physician: Ace Briones ?? Date of Service: 06/19/24 ?? Procedure(s): CT abdomen pelvis w IV con ?? Accession Number(s): [id number] ? cc: Zev Sanders MD; Ace Briones ? Report Number: ?? [id number]: Total DLP = ??366.25 mGy-cm ? CLINICAL [...] in OV> ? 06/19/24 1659 ? DD/ ? TD/TT: 06/19/24 1658 ? Freelance Writer: ? Procedure Note Elias, Travis - 06/19/2024 [place] [address] [facility] [address] CT Scan Report Signed Patient: Deysi Pfeiffer [facility]#: [id number] : 1970Acct:[id number] Age/Sex: 54 / FADM Date: 06/19/24 Loc: HO.ED Attending Dr: Ordering Physician: Ace Briones Date of Service: 06/19/24 Procedure(s): CT abdomen pelvis w IV con Accession Number(s): [id number] cc: Zev Sanders MD; Ace Briones Report Number: [id number]: Total DLP = 366.25 mGy-cm CLINICAL HISTORY: [...] signed by Joel Villalta MD in OV> 06/19/241658 DD/ 57 TD/TT: 06/19/241657 Freelance Writer: [facility] External Provider IMG CT PROCEDURES Edited Result - Final * CTA Chest PE Protocal (06/19/2024 4:55 PM EDT) Anatomical Region Laterality Modality Body, Chest Computed Tomogra phy 06/19/2024 4:55 PM EDT Narrative 06/19/2024 4:57 PM EDT ? [facility] ?[address] ?[place] [address] ? CT Scan Report ? Signed ? Patient: Delvalle Izquierdo,Deysi D ?MR#: ?? [id number] ? : 1970 ?Acct:[id number] ? Age/Sex: 54 / F ?ADM Date: 06/19/24 ? Loc: HO.ED ? Attending Dr: ? Ordering Physician: Ace Briones ?? Date of Service: 06/19/24 ?? Procedure(s): CT angio chest PE protocol ?? Accession Number(s): [id number] ? cc: Zev Sanders MD; Ace Briones ? Report Number: ?? [id number]: Total DLP = ??166.75 mGy-cm ? CLINICAL [...] ? DD/ 54 ? TD/TT: 06/19/241654 ? Freelance Writer: ? Procedure Note Travis Griffin - 06/19/[address] [address] Scan Report Signed Patient: Deysi Pfeiffer DMR#: [id number] : 1970Acct:[id number] Age/Sex: 54 / FADM Date: 06/19/24 Loc: HO.ED Attending Dr: Ordering Physician: Ace Briones Date of Service: 06/19/24 Procedure(s): CT angio chest PE protocol Accession Number(s): [id number] cc: Zev Sanders MD; Ace Briones Report Number: [id number]: Total DLP = 166.75 mGy-cm CLINICAL HISTORY: [...] in OV> 06/19/246 DD/ 54 TD/TT: 06/19/241654 Freelance Writer: [facility] External Provider IMG CT PROCEDURES Edited Result - Final * CT Head w/o Contrast (06/19/2024 4:50 PM EDT) Anatomical Region Laterality Modality Head, Neck Computed Tomogra phy 06/19/2024 4:50 PM EDT Narrative 06/19/2024 4:52 PM EDT ? [facility] ?[address] ?[place] [address] ? CT Scan Report ? Signed ? Patient: Delvalle Izquierdo,Deysi D ?MR#: ?? [id number] ? : 1970 ?Acct:[id number] ? Age/Sex: 54 / F ?ADM Date: 03/22/25 ? Loc: HO.ED ? Attending Dr: ? Ordering Physician: Ace Briones ?? Date of Service: 06/19/24 ?? Procedure(s): CT head/brain wo IV con ?? Accession Number(s): [id number] ? cc: Zev Sanders MD; Ace Briones ? Report Number: ?? [id number]: Total DLP = ??666.00 mGy-cm ? CLINICAL [...] in OV> ? 06/19/24 1651 ? DD/ ? TD/TT: 06/19/240 ? Freelance Writer: ? Procedure Note Elias, Travis - 06/19/[address] [place] [address] [address] Scan Report Signed Patient: Deysi Pfeiffer DMR#: [id number] : 1970Acct:[id number] Age/Sex: 54 / FADM Date: 06/19/24 Loc: HO.ED Attending Dr: Ordering Physician: Ace Briones Date of Service: 06/19/24 Procedure(s): CT head/brain wo IV con Accession Number(s): [id number] cc: Zev Sanders MD; Ace Briones Report Number: [id number]: Total DLP = 666.00 mGy-cm CLINICAL HISTORY: [...] in OV> 06/19/241650 DD/ 49 TD/TT: 06/19/241649 Freelance Writer: [facility] External Provider IMG CT PROCEDURES Edited Result - Final * (ABNORMAL) Urinalysis w/reflex microscopic (06/19/2024 4:26 PM EDT) Color Urine Yellow [facility] Appearance Urine Clear [facility] PH 5.5 5.0 - 9.0 [facility] Glucose Urine UA Negative Negative mg/dL [facility] Urine Blood Negative Negative [facility] Specific [place] - Urine >=1.030(H) 1.005 - 1.025 [facility] Urine Protein Negative Neg-Trace mg/dL [facility] Urine Ketones 15 Negative mg/dL [facility] Nitrite Urine Negative Negative [facility] Leukocyte Esterase Urine Negative Negative [facility] 06/19/2024 4:26 PM EDT 06/19/2024 4:28 PM EDT Narrative [facility] - 06/19/2024 4:39 PM EDT [id number], [employer] Generic External Data Provider LAB URINE ORDERAB LES Final Result [facility] [address] [place] [address] [phone] * Blood Culture (Second) (06/19/2024 12:40 PM EDT) Blood Venous blood specimen / Unknown 06/19/2024 12:40 PM EDT 06/19/2024 12:44 PM EDT Comment:Blood Narrative [facility] - 06/24/2024 2:44 PM EDT Blood Culture (Second) No growth after 5 days. Specimen Source: Blood Generic External Data Provider LAB MICROBIOLOGY - GENERAL ORDERABLES Final Result Performing Organization Address [facility] de Phone Number [facility] [address] [place] [phone] * Lactic Acid (06/19/2024 12:40 PM EDT) Lactic Acid 0.9 0.5 - 2.0 mmol/L [facility] 06/19/2024 12:4 0 PM EDT 06/19/2024 12:44 PM EDT Generic External Data Provider LAB BLOOD ORDERAB LES Final Result Performing Organization Address [facility] de Phone Number [facility] [address] [place] [phone] * Blood Culture (First) (06/19/2024 12:37 PM EDT) Blood Venous blood specimen / Unknown 06/19/2024 12:37 PM EDT 06/19/2024 12:40 PM EDT Comment:Blood Narrative [facility] - 06/24/2024 2:41 PM EDT Blood Culture (First) No growth after 5 days. Specimen Source: Blood Generic External Data Provider LAB MICROBIOLOGY - GENERAL ORDERABLES Final Result Performing Organization Address [facility] de Phone Number [facility] [address] [place] [phone] * VASC US Lower Extremity Venous Duplex Bilateral (2024 1:18 PM EST) Only the most recent of2 resultswithin the time period is included. 2024 1:18 PM EST Narrative [facility] - 2024 3:38 PM EST ? [facility] ?[address] ?[place] [address] ? Ultrasound Report ? Signed ? Patient: Delvalle Izquierdo,Deysi D ?MR#: ?? [id number] ? : 1970 ?Acct:[id number] ? Age/Sex: 54 / F ?ADM Date: 05/03/24 ? Loc: HO.US ? Attending Dr: Anika Dennis PA-C ? Ordering Physician: Anika Dennis PA-C ?? Date of Service: 05/03/24 ?? Procedure(s): US venous duplex LE BI ?? Accession Number(s): [id number] ? cc: Zev Sanders MD; Anika Dennis [...] DD/ 1318 ? TD/TT: 05/03/24 1345 ? Freelance Writer: ? Procedure Note Travis Griffin - [address] [address] Ultrasound Report Signed Patient: Deysi Pfeiffer DMR#: [id number] : 1970Acct:[id number] Age/Sex: 54 / FADM Date: 05/03/24 Loc: HO.US Attending Dr: Anika Dennis PA-C Ordering Physician: Anika Dennis PA-C Date of Service: 05/03/24 Procedure(s): US venous duplex LE Accession Number(s): [id number] cc: Zev Sanders MD; Anika Dennis PA-C [...] 05/03/24 1535 DD/ 1318 TD/TT: 05/03/24 1345 Freelance Writer: us [facility] External Provider CV VASC ULAR PROCEDURES Final Result [facility] [address] [place] [phone] * (ABNORMAL) CBC auto differential (04/21/2024 3:22 PM EST) White Blood Count 11.6(H) 4.8 - 10.8 X10*3/uL [facility] Red Blood Count 4.26 4.20 - 5.50 X10*6/uL [facility] Hemoglobin 12.4 12.0 - 16.0 g/dl [facility] Hematocrit 39.4 37.0 - 47.0 % [facility] Mean Corpuscular Volume 92.5 80.0 - 98.0 fL [facility] Mean Corpuscular Hemoglobin 29.1 27.0 - 33.0 pg [facility] Mean Corpuscular HGB Conc 31.5 31.0 - 35.0 g/dl [facility] Red Cell Distribution Width 14.6 11.0 - 16.0 % [facility] Platelet Count 241 160 - 400 X10*3/uL [facility] Mean Platelet Volume 9.2(L) 9.4 - 12.3 fL [facility] Neutrophils Percent Auto 84.3(H) 45 - 73 % [facility] Imm Gran Pct Auto 0.6(H) 0.0 - 0.4 % [facility] Lymphocytes Percent Auto 10.4(L) 20 - 40 % [facility] Monocytes Percent Auto 3.6 2 - 11 % [facility] Eosinophils Percent Auto 0.4 0 - 4 % [facility] Basophils Percent Auto 0.7 0 - 2 % [facility] NRBC Pct Auto 0.0 0.0 - 0.2 /100WBC [facility] Neutrophils Absolute Auto 9.8(H) 2.0 - 8.3 x10*3/uL [facility] Imm Gran Abs Auto 0.07(H) 0.00 - 0.03 X10*3/uL [facility] Lymphocytes Absolute Auto 1.2 1.2 - 4.9 X10*3/uL [facility] Monocytes Absolute Auto 0.4 0.1 - 1.2 X10*3/uL [facility] Eosinophils Absolute Auto 0.1 0.0 - 0.4 X10*3/uL [facility] Basophils Absolute Auto 0.1 0.0 - 0.2 X10*3/uL [facility] NRBC Abs Auto 0.000 0.0 - 0.012 X10*3/uL [facility] 04/21/2024 3:22 PM EST 04/21/2024 3:24 PM EST Generic External Data Provider LAB BLOOD ORDERAB LES Final Result Performing Organization Address [facility] de Phone Number [facility] [address] [place] [phone] * Prothrombin Time-INR (04/21/2024 3:22 PM EST) Prothrombin Time 10.9 10.9 - 12.4 SEC [facility] INTERNATIONAL NORM RATIO 0.9 0.9 - 1.1 [facility] Comment:INTERNATIONAL NORMAL IZED RATIO (INR) [...] 3:22 PM EST 04/21/2024 3:24 PM EST [facility] External Data Provider LAB BLOOD ORDERAB LES Final Result Performing Organization Address [facility] de Phone Number [facility] [address] [place] [phone] * (ABNORMAL) Comprehensive Metabolic Panel (04/21/2024 3:22 PM EST) Pathologist [facility] Sodium 143 135 - 145 mmol/L [facility] Potassium 4.9 3.3 - 5.1 mmol/L [facility] Chloride 103 96 - 108 mmol/L [facility] Carbon Dioxide 33(H) 22 - 29 mmol/L [facility] Anion Gap 12 12 - 20 [facility] Urea Nitrogen (BUN) 11 9 - 16 mg/dL [facility] Creatinine, Serum 0.59 0.5 - 1.4 mg/dL [facility] Creatinine Clr Calc Pharmacy 95.2 [facility] Comment:Provided height and weight: 162.56 cm,56.9 kg.eGFR (calculated from the MDRD study equation) and eCrCl(calculated from the Cockcroft-Gault equation) are based ondifferent parameters and may not yield comparable results.If eCrCl result is absurd, please check patient'sheight/weight. Estimated Glomerular Filt Rate >60 [facility] Comment:Chronic Kidney Disea se: Estimated GFR < 60 mL/min/1.95w7Uxdsaq Kidney Disease: Estimated GFR < 15 mL/min/1.73m2 Glucose 116(H) 60 - 115 mg/dL [facility] Calcium 9.1 8.4 - 10.2 mg/dL [facility] Bilirubin, Total 0.3 0.0 - 1.0 mg/dL [facility] Aspartate Amino Transferase 17 5 - 31 U/L [facility] Alanine Aminotransferase 14 0 - 31 U/L [facility] Total Protein 6.6 6.5 - 8.0 g/dL [facility] Albumin Level 3.9 3.5 - 5.0 g/dL [facility] Alkaline Phosphatase 66 39 - 117 U/L [facility] 04/21/2024 3:22 PM EST 04/21/2024 3:24 PM EST us Generic External Data Provider LAB BLOOD ORDERAB LES Final Result [facility] [address] [place] [address] [phone] * Cologuard?? colon cancer screening (03/10/2023 2:14 PM EST) Cologuard Result Negative Negative 03/21/20 23 1:56 AM EST [facility] (IA #:[id number]) Comment: NEGATIVE TEST RESULT. A negative Cologuard [...] Steward. et al, N Engl J Med 2014;370(14):1286- [...] Cancer Society Guideline for Colorectal Cancer Screening: https://www.cancer.org/cancer/zwtzq-dgiilx-aadpdj/hsirjlajj-sjverqaza-lmvxfnb/ac s-rec ommendations.html.; Edgar CRESPO, Antonio STONE, Salma CorderoK, Colorectal Cancer Screening: Recommendations for Physicians and Patients from the U.S. Multi-Society Task Force on Colorectal Cancer Screening , Am J Gastroenterology 2017; 112:2711-0399. TEST DESCRIPTION: Composite algorithmic analysis of stool [...] Luis Robles al, N Engl J Med 2014;370(14):2705-3825.) Cologuard may produce a false negative or [...] can be accessed at the following location: www.[email or web address]/results. Additional description of the Cologuard test process, warnings and precautions can be found at [email or web address]. Stool specimen (specimen) 03/10/2023 2:14 PM EST 03/12/2023 8:29 PM EST Zev Sanders MD LAB MOLECULAR DIAGNOSTICS O RDERABLES Final Result [facility] (CLIA #:[id number]) [address] [place] [address], * HPV E6/E7 RFLX VANNESSA 16 18/45 (01/15/2022 10:19 AM EDT) HPV mRNA E6/E7 rflx Not Detected Not Detected [facility] Comment: Methodology: Personnel Administrator-Mediated Amplification This assay detects E6/E7 viral messenger RNA (mRNA) from 14 high-risk HPV types (16,18,31,33,35,39,45,51,52,56,58,59,66,68). Cervical sources are required for HPV testing. If a vaginal source from a patient who has had a total hysterectomy with removal of cervix was submitted, please contact the testing laboratory for alternative testing options. For additional information, please refer to [email or web address].[employer]/faq/TKE404g8 (This link if provided for information/ educational purposes only.) THIS TEST WAS PERFORMED AT: [facility] [address] [place] [address] [address] [facility],[address] [place], [place] ??[address] [facility] CRUZ MD 01/15/2022 10:1 9 AM EDT Mario Alberto Morgan MD HISTORICAL/NON ORDERABLE LABS Fi nal Result CONVERTED LEGACY LABS * Hm Pap Smear (01/15/2022) Historical Provider HEALTH MAINTENANCE Final Result * HEPATITIS C AB W/REFL TO HCV RNA, QN, PCR (11/12/2021 12:09 PM EDT) HEPATITIS C ANTIBODY NON-REACT [facility] NON-REACT [facility] INDEX 0.09 <1.00 [facility] Comment: ?? HCV antibody was non-reactive. There is no laboratory ?? evidence of HCV infection. ?? In most cases, no further action is required. However, if recent HCV exposure is suspected, a test for HCV RNA (test code 47814) is suggested. ?? For additional information please refer to http://Desk.[employer]/faq/DBS49i1 (This link is being provided for informational/ educational purposes only.) ?? 11/12/2021 12:0 9 PM EDT us Zev Sanders MD HISTORICAL/NON ORDERABLE LA BS Final Result Performing Organization Address City/[facility]/ZIP Co de Phone Number [facility] [address] [place] [address], * (ABNORMAL) LIPID PANEL, STANDARD (11/12/2021 12:09 [...] ?? Hilario MOON et al. JUANA. 2013;310(19): 3947-8404 ?? (http://education.[employer]/faq/PEZ895) Non-HDL Cholesterol 129 <130 mg/dL (calc) [facility] Comment: For patients with diabetes plus 1 major ASCVD risk ?? factor, treating to a non-HDL-C goal of <100 mg/dL ?? (LDL-C of <70 mg/dL) is considered a therapeutic ?? option. Triglycerides 120 <150 mg/dL [facility] 11/12/2021 12:0 9 PM EDT us Zev Sanders MD LAB BLOOD ORDERABLES Final Result [facility] [address] * Mammography Report 1 (10/17/2021 2:30 PM EDT) Anatomical Region Laterality Modality Breast Bilateral Mammography 10/17/2021 2:30 PM EDT Narrative 10/18/2021 2:58 PM EDT Refer to the Notes tab for result details Legacy Procedure: Mammography Report 1 Procedure Note ProviderJosh MD - 06/23/2022 Refer to the Notes tab for result details Legacy Procedure: Mammography Report 1 us Zev Sanders MD IMG BI PROCEDURES Final Res ult from Last 3 Months or Most Recently Relevant to Health Maintenance Insurance [facility] C3 Care Teams Rubbish Collection Supervisor Relationship Specialty Start Date End Date Zev Sanders MD [address] [place] [address] PCP - General Internal Medicine 11/16/19
--- OUTSIDE RECORDS SUMMARY | 2024-07-15 16:55 | XMS_ITS ---
Author Organization [employer] Address 75 [facility] 7t [place] [address] Care Team Providers Care Manager Managing Name Role Phone Zev Sanders MD Primary Care Provider [phone] CM Complex Status:Outreach In Progress (Enrolling) Start date:06/21/2024 Enrollment reason:ADT Feed Overview ED_ Pt went to [facility] ED on 06/19/24. . Case Team Name Relationship Phone Michelle Quiroz RN Registered Nurse(Responsible S taff) Continued Care and Services Coordination
--- OUTSIDE RECORDS SUMMARY | 2024-07-15 16:55 | XMS_ITS | Encounter Summary ---
Author Organization [employer] Address 75 [facility] 7t [place] [address] Care Team Providers Care Tag Machine Operator Name Role Phone Zev Sanders MD Primary Care Provider [phone] Reason for Visit * Reason Comments Med Refill Encounter Details Date Type Department Care Team ([facility] Contact Info) Description 07/07/2024 Refill [facility] CHC MED & PEDS [address] [place], [place] [phone] Zev Sanders MD [address] [place] [address] Chronic low back pain, unspecified back pain [...] [facility] st Contact Info) Description 08/10/2024 2:00 PM EDT Office Visit [facility] CHC MED & PEDS [address] [place] [address] Zev Sanders MD [address] [place] [address] documented as of this encounter Visit Diagnoses Diagnosis Chronic low back pain, unspecified back pain laterality, unspecified whether sciatica present documented in this encounter Additional Health Concerns Assessment Noted Time PHQ-9 Depression Total Score: 7 10/14/19 24 11:59 AM EDT documented as of this encounter Care Teams Tag Machine Operator Relationship Specialty Start Date End Date Zev Sanders MD [address] [place] [address] PCP - General Internal Medicine 11/16/19 documented as of this encounter
--- OUTSIDE RECORDS SUMMARY | 2024-07-15 16:55 | XMS_ITS | Encounter Summary ---
Author Organization [employer] Address 75 [facility] 7 [place] [address] Care Team Providers Care Hydraulic Chair Assembler Name Role Phone Zev Sanders MD Primary Care Provider [phone] Encounter Details Date Type Department Care Team ([facility] Contact Info) Description 04/12/2022 Orders Only [facility] [address] [place], [place] [phone] Zev Sanders MD [address] [place], [place] [phone] Social History Tobacco Use Types Packs/Day Years [...] [facility]) Description 08/10/2024 2:00 PM EDT Office Visit [facility] CHC MED & PEDS [address] [place], [place] [phone] Zev Sanders MD [address] [place] [address] documented as of this encounter Procedures Procedure [...] (10/21/2022 2:13 PM EDT) Slide Review VERIFIED [facility] 10/21/2022 2:13 PM EDT 10/21/2022 5:23 PM EDT us Zev Sanders MD LAB BLOOD ORDERABLES Final Result [facility] [address] [place] [address] [phone] * (ABNORMAL) VENOUS BLOOD GAS (09/04/2022 1:17 PM EDT) VBG pH 7.37 7.32 - 7.43 [facility] Comment:METER #: [id number] additional_comment: Cb murpe VBG PCO2 57 mmHg [facility] Comment:METER #: [id number] additional_comment: Cb murpe VBG PO2 48 mmHg [facility] Comment:METER #: [id number] additional_comment: Cb murpe VBG Base Excess 6.2 mmol/L [facility] Comment:METER #: [id number] additional_comment: Cb murpe VBG HCO3 33(H) 22 - 26 mmol/L [facility] Comment:METER #: [id number] additional_comment: Cb murpe O2 Sat, Lefty 77.0 % [facility] Comment:METER #: [id number] additional_comment: Cb murpe 09/04/2022 1:17 PM EDT 09/04/2022 1:23 PM EDT [facility] External Provider LAB BLO OD ORDERABLES Final Result Performing Organization Address [facility] de Phone Number [facility] [address] [place] [phone] * D Dimer High Sensitivity (09/04/2022 1:10 PM EDT) [facility] D Dimer High Sensitivity <150 NG/ML [facility] Comment:D-DIMER HS REFERENCE RANGENote: Our assay reports D-Dimer Units (D- DU).The cut-off value for venous thromboembolic (VTE) disease is230 ng/mL. This value has a very high negative predictivevalue when the patient has a low to moderate clinicalprobability of VTE.The upper limit of normal is 243 ng/mL. 09/04/2022 1:10 PM EDT 09/04/2022 1:18 PM EDT [facility] External Provider LAB BLO OD ORDERABLES Final Result Performing Organization Address [facility] de Phone Number [facility] [address] [place] [phone] * B Type Natriuretic Peptide (BNP) (09/04/2022 11:26 AM EDT) Pathologist [facility] B Type Natriuretic Peptide 19 <100 pg/mL [facility] Comment:For those patients w ho are being treated with Natrecor(nesiritide, recombinant BNP), BNP testing should beperformed at least two hours post treatment in order toensure that only endogenous levels of BNP are detected. 09/04/2022 11:2 6 AM EDT 09/04/2022 1:27 PM EDT [facility] External Provider LAB BLO OD ORDERABLES Final Result [facility] [address] [place] [address] [phone] * (ABNORMAL) Comprehensive Metabolic Panel (09/04/2022 11:26 AM EDT) Sodium 142 135 - 145 mmol/L [facility] Potassium 4.2 3.3 - 5.1 mmol/L [facility] Chloride 102 96 - 108 mmol/L [facility] Carbon Dioxide 34(H) 22 - 29 mmol/L [facility] Anion Gap 10(L) 12 - 20 [facility] Urea Nitrogen (BUN) 15 9 - 16 mg/dL [facility] Creatinine, Serum 0.68 0.5 - 1.4 mg/dL [facility] Creatinine Clr Calc Pharmacy 74.8 [facility] Comment:Provided height and weight: 162.56 cm,49 kg.eGFR (calculated from the MDRD study equation) and eCrCl(calculated from the Cockcroft-Gault equation) are based ondifferent parameters and may not yield comparable results.If eCrCl result is absurd, please check patient'sheight/weight. Estimated Glomerular Filt Rate >60 [facility] Comment:NOTE: For -Am erican individuals, multiply the result by 1.210.Chronic Kidney Disease: Estimated GFR < 60 mL/min/1.43x3Vxhcma Kidney Disease: Estimated GFR < 15 mL/min/1.73m2 Glucose 112 60 - 115 mg/dL [facility] Calcium 9.4 8.4 - 10.2 mg/dL [facility] Bilirubin, Total 0.7 0.0 - 1.0 mg/dL [facility] Aspartate Amino Transferase 21 5 - 31 U/L [facility] Alanine Aminotransferase 17 0 - 31 U/L [facility] Total Protein 6.7 6.5 - 8.0 g/dL [facility] Albumin Level 4.1 3.5 - 5.0 g/dL [facility] Alkaline Phosphatase 73 39 - 117 U/L [facility] 09/04/2022 11:2 6 AM EDT 09/04/2022 11:33 AM EDT us [facility] External Provider LAB BLO OD ORDERABLES Final Result [facility] [address] [place] [address] [phone] * COVID-19 ID NOW (Transerv) (09/04/2022 11:26 AM EDT) IDNOW SERIAL# [id number] [facility] COVID-19 TEST Negative Negative [facility] COVID-19 NOTE See Note [facility] Comment: Results are for the [...] use by authorized laboratories.Testing performed on the [employer] ID NOW utilizing NAAT. 09/04/2022 11:2 6 AM EDT 09/04/2022 11:33 AM EDT [facility] Exter nal Provider LAB MOLECULAR DIAGNOSTICS ORDERABLES Final Result [facility] [address] [place] [address] [phone] * (ABNORMAL) CBC auto differential (09/04/2022 11:26 AM EDT) White Blood Count 10.4 4.8 - 10.8 X10*3/uL [facility] Red Blood Count 5.42 4.20 - 5.50 X10*6/uL [facility] Hemoglobin 16.0 12.0 - 16.0 g/dl [facility] Hematocrit 49.3(H) 37.0 - 47.0 % [facility] Mean Corpuscular Volume 91.0 80.0 - 98.0 fL [facility] Mean Corpuscular Hemoglobin 29.5 27.0 - 33.0 pg [facility] Mean Corpuscular HGB Conc 32.5 31.0 - 35.0 g/dl [facility] Red Cell Distribution Width 14.6 11.0 - 16.0 % [facility] Platelet Count 238 160 - 400 X10*3/uL [facility] Mean Platelet Volume 9.5 9.4 - 12.3 fL [facility] Neutrophils Percent Auto 51.2 45 - 73 % [facility] Imm Gran Pct Auto 0.3 0.0 - 0.4 % [facility] Lymphocytes Percent Auto 38.4 20 - 40 % [facility] Monocytes Percent Auto 8.1 2 - 11 % [facility] Eosinophils Percent Auto 1.5 0 - 4 % [facility] Basophils Percent Auto 0.5 0 - 2 % [facility] NRBC Pct Auto 0.0 0.0 - 0.2 /100WBC [facility] Neutrophils Absolute Auto 5.4 2.0 - 8.3 x10*3/uL [facility] Imm Gran Abs Auto 0.03 0.00 - 0.03 X10*3/uL [facility] Lymphocytes Absolute Auto 4.0 1.2 - 4.9 X10*3/uL [facility] Monocytes Absolute Auto 0.8 0.1 - 1.2 X10*3/uL [facility] Eosinophils Absolute Auto 0.2 0.0 - 0.4 X10*3/uL [facility] Basophils Absolute Auto 0.1 0.0 - 0.2 X10*3/uL [facility] NRBC Abs Auto 0.000 0.0 - 0.012 X10*3/uL [facility] 09/04/2022 11:2 6 AM EDT 09/04/2022 11:33 AM EDT [facility] External Provider LAB BLO OD ORDERABLES Final Result [facility] [address] [place] [address] [phone] documented in this encounter Visit Diagnoses Not on filedocumented in this encounter Care Teams Hydraulic Chair Assembler Relationship Specialty Start Date End Date Zev Sanders MD [address] [place] [phone] PCP - General Internal Medicine 11/16/19 documented as of this encounter
--- OUTSIDE RECORDS SUMMARY | 2024-07-15 16:55 | XMS_ITS | Encounter Summary ---
Author Organization [employer] Address 75 [facility] 7 [place] [address] Care Team Providers Care Water Quality Analyst Name Role Phone Zev Sanders MD Primary Care Provider [phone] Reason for Visit * Reason Comments Care Coordination C3/CM Outreach Encounter Details Date Type Department Care Team (Latest Contact Info) Description 07/13/[address] [facility] MEDICINE [address] [place] [address] Zev Sanders MD [address] [place] [address] Care Coordination (C3/CM Outreach) Social History Tobacco [...] encounter Progress Notes * Keiry Marie - 07/13/2024 9:39 AM EDT CHW Keiry Marie , placed outbound call to patient in regards to offer services. CHW introducing herself from [facility] CM Department with CHW's name, department and direct contact [phone] requesting call back. Will re-attempt to contact within 5 days. and address not confirmed. documented in this encounter Plan of Treatment Upcoming Encounters Date Type Department Care Team ([facility] st Contact Info) Description 08/10/2024 2:00 PM EDT Office Visit [facility] CHC MED & PEDS [address] [place] [address] Zev Sanders MD [address] [place] [address] documented as of this encounter Visit Diagnoses Not on filedocumented in this encounter Additional Health Concerns Assessment Noted Time PHQ-9 Depression Total Score: 7 10/14/19 24 11:59 AM EDT documented as of this encounter Care Teams Water Quality Analyst Relationship Specialty Start Date End Date Zev Sanders MD [address] [place] [address] PCP - General Internal Medicine 11/16/19 documented as of this encounter
--- OUTSIDE RECORDS SUMMARY | 2024-07-15 16:55 | XMS_ITS | Encounter Summary ---
Author Organization [facility] Address [address] [place] [address] 7t [place] [address] Care Team Providers Care Structural Steel Erector Name Role Phone Zev Sanders MD Primary Care Provider [phone] Encounter Details Date Type Department Care Team ([facility] Contact Info) Description 10/22/2022 Orders Only [facility] MED & PEDS [address] [place], [place] [phone] Zev Sanders MD [address] [place], [place] [phone] Gastroenteritis (Primary Dx) Social History Tobacco Use [...] Upcoming Encounters Date Type Department Care Team ([facility] Contact Info) Description 08/10/2024 2:00 PM EDT Office Visit [facility] MED & PEDS [address] [place] [address] Zev Sanders MD [address] [place] [address] documented as of this encounter Visit Diagnoses Diagnosis Gastroenteritis- Primary Other and unspecified noninfectious gastroenteritis and colitis documented in this encounter Care Teams Structural Steel Erector Relationship Specialty Start Date End Date Zev Sanders MD [address] [place] [address] PCP - General Internal Medicine 11/16/19 documented as of this encounter
--- OUTSIDE RECORDS SUMMARY | 2024-07-15 16:55 | XMS_ITS | Encounter Summary ---
Author Organization [employer] [facility] Address 75 [facility] 7 [place] [address] Care Team Providers Care Licensed Life And Health Agent Name Role Phone Zev Sanders MD Primary Care Provider [phone] Encounter Details Date Type Department Care Team ([facility] Contact Info) Description 12/24/2022 Orders Only [facility] MEDICINE [address] [place] [address] ProviderJosh MD Social History Tobacco Use Types [...] Description 08/10/2024 2:00 PM EDT Office Visit [facility] CHC MED & PEDS [address] [place], [place] [phone] Zev Sanders MD [address] [place], [place] [phone] documented as of this encounter Procedures Procedure Name Priority Date/Time Associated Diagnosis Comments HM PAP/HPV Routine 01/15/2022 documented in this encounter Results * Hm Pap Smear (01/15/2022) Historical Provider HEALTH MAINTENANCE Final Result documented in this encounter Visit Diagnoses Not on filedocumented in this encounter Care Teams Licensed Life And Health Agent Relationship Specialty Start Date End Date Zev Sanders MD [address] [place] [address] PCP - General Internal Medicine 11/16/19 documented as of this encounter
--- OUTSIDE RECORDS SUMMARY | 2024-07-15 16:55 | XMS_ITS | Encounter Summary ---
Author Organization [employer] Address 75 [facility] 7 [place] [address] Care Team Providers Care Product Owner Name Role Phone Zev Sanders MD Primary Care Provider [phone] Reason for Visit * Reason Onset Date Comments Appointment Request 11/01/2022 Encounter Details Date Type Department Care Team ([facility] st Contact Info) Description 11/01/2022 Telephone [facility] CHC MED & PEDS [address] [place], [place] [phone] Zev Sanders MD [address] [place] [address] Appointment Request Social History Tobacco Use Types [...] PE on 10/24/2022. Please contact pt at [phone] documented in this encounter Plan of Treatment Upcoming Encounters Date Type Department Care Team (Late st Contact Info) Description 08/10/2024 2:00 PM EDT Office Visit [facility] MED & PEDS [address] [place] [address] Zev Sanders MD [address] [place] [address] documented as of this encounter Visit Diagnoses Not on filedocumented in this encounter Care Teams Product Owner Relationship Specialty Start Date End Date Zev Sanders MD [address] [place] [address] PCP - General Internal Medicine 11/16/19 documented as of this encounter
--- OUTSIDE RECORDS SUMMARY | 2024-07-15 16:55 | XMS_ITS | Encounter Summary ---
Author Organization [employer] Address 75 [facility] 7t [place] [address] Care Team Providers Care Door Paneler Name Role Phone Zev Sanders MD Primary Care Provider [phone] Encounter Details Date Type Department Care Team ([facility] st Contact Info) Description 07/21/2023 Orders Only [facility] CHC MED & PEDS [address] [place], [place] [phone] Zev Sanders MD [address] [place], [place] [phone] Social History Tobacco Use Types Packs/Day Years [...] [facility] [address] [place] [address] Zev Sanders MD [address] [place] [address] documented as of this encounter Visit Diagnoses Not on filedocumented in this encounter Care Teams Door Paneler Relationship Specialty Start Date End Date Zev Sanders MD [address] [place] [address] PCP - General Internal Medicine 11/16/19 documented as of this encounter
--- OUTSIDE RECORDS SUMMARY | 2024-07-15 16:55 | XMS_ITS | Encounter Summary ---
Author Organization [employer] Address 75 [facility] 7t [place] [address] Care Team Providers Care Acid Bleacher Name Role Phone Zev Sanders MD Primary Care Provider [phone] Reason for Visit * Reason Onset Date Comments Med Refill 07/21/2023 Encounter Details Date Type Department Care Team ([facility] st Contact Info) Description 07/21/2023 Telephone [facility] MEDICINE [address] [place] [address] Zev Sanders MD [address] [place] [address] Med Refill Social History Tobacco Use Types [...] 150 MG capsule To be sent to: [facility] [place], [place] - [address] [place] [address] documented in this encounter Plan of Treatment Upcoming Encounters Date Type Department Care Team (Late st Contact Info) Description 08/10/2024 2:00 PM EDT Office Visit [facility] MED & PEDS [address] [place] [address] Zev Sanders MD [address] [place] [address] documented as of this encounter Visit Diagnoses Not on filedocumented in this encounter Care Teams Acid Bleacher Relationship Specialty Start Date End Date Zev Sanders MD [address] [place] [address] PCP - General Internal Medicine 11/16/19 documented as of this encounter
--- OUTSIDE RECORDS SUMMARY | 2024-07-15 16:55 | XMS_ITS ---
Author Organization [employer] Address [address] [facility] 7t [place] [address] Care Team Providers Care Energy Conservation Representative Name Role Phone Zev Sanders MD Primary Care Provider [phone] CHW Complex Status:Outreach In Progress (Enrolling) Start date:06/21/2024 Enrollment reason:ADT Feed Overview ED_ Pt went to [facility] on 06/19/24. . Case Team Name Relationship Phone Keiry Marie (Responsible Staff) Continued Care and Services Coordination
== END 2024-07-15 14:09 | disposition home or self-care (01) ==
LOC: HO.PMC 13:50
PROVIDERS: PCP Internal Medicine; Visit Provider Nurse Practitioner Family
DX: S93.401A Sprain of unspecified ligament of right ankle, initial encounter (principal); Z79.891 Long term (current) use of opiate analgesic; M54.2 Cervicalgia; M51.369 Other intervertebral disc degeneration, lumbar region without mention of lumbar back pain or lower extremity pain; M47.816 Spondylosis without myelopathy or radiculopathy, lumbar region
CPT/HCPCS: 99214

== ENCOUNTER → 2024-07-15 13:50 | Outpatient (BNVA) | payer MEDICAID, SELFPAY | PROVIDERS: PCP Internal Medicine; Visit Provider Nurse Practitioner Family | DX: M54.2 Cervicalgia (principal); M51.369 Other intervertebral disc degeneration, lumbar region without mention of lumbar back pain or lower extremity pain; M47.816 Spondylosis without myelopathy or radiculopathy, lumbar region; M46.1 Sacroiliitis, not elsewhere classified; S93.401A Sprain of unspecified ligament of right ankle, initial encounter; X58.XXXA Exposure to other specified factors, initial encounter; Y93.9 Activity, unspecified; Y92.9 Unspecified place or not applicable; Y99.9 Unspecified external cause status; Z51.81 Encounter for therapeutic drug level monitoring; Z79.891 Long term (current) use of opiate analgesic | CPT/HCPCS: 99212 ==

== ENCOUNTER 2024-08-12 14:00 | Outpatient (AMB) | payer MEDICAID, SELFPAY ==
--- NOTE | 2024-08-12 14:02 | MHC.OFFVIS ---
Vital Signs 08/12/24 14:08 Height 5 ft 4 in Weight 118 lb 6 oz BMI 20.3 BP 119/70 Blood Pressure Location Rt brachial Position Sitting Pulse 96 Pulse Source Pulse Oximeter Pulse Oximetry (%) 94 Oxygen Delivery Method Nasal Cannula Oxygen Flow Rate 2 Intake Visit Reasons: Pill count Intake Note: Deysi comes in today for a pill count to oxycodone, patient should have 60 tablets and presents with 63 tablets which she last took today 08/12/24 at 9am. Pain today 6/10 Electoral Officer Required: No Accompanied by: Spouse Allergies Penicillins [PENICILLINS] Allergy (Severe, Verified 08/12/24 14:09) RASH seafood Allergy (Verified 08/12/24 14:09) Rash HPI Comments Details: Patient presents today for a pill count. She is supposed to have #60 pills in her possession and presents with #63 pills. This demonstrates a responsible attitude in regards to her opioid regimen. She reports reasonable analgesia on her current regime, except ongoing right ankle pain. Pain is rated at 6/10, worse in her right ankle due to injury she sustained in May. She is followed by [facility] with conservative approach for partial Achilles tendon rupture. Patient denies any fever, chills, weight loss, abdominal or groin pain, constipation, urinary retention, sedation, nausea, vomiting, constipation, sedation, dizziness, or urinary retention. [facility], [facility] Medical History Current non-smoker but past smoking history unknown Respiratory failure with hypoxia COPD exacerbation Pre-op examination History of OCD (obsessive compulsive disorder) History of panic attacks Anxiety and depression Radiculopathy, lumbar region HTN (hypertension) Sacroiliitis COPD (chronic obstructive pulmonary disease) Asthma Allergic rhinitis Disc degeneration, lumbar Surgical History History of surgery History of appendectomy Hx of tonsillectomy Status post excision of lipoma History of tubal ligation Hx of excision of mass History of surgery History of laparoscopic cholecystectomy History of esophagogastroduodenoscopy (EGD) History of umbilical hernia repair History of incision and drainage Family History Family/Other Cervical cancer Family/Other Stomach cancer Social History Household Members: Significant Other and Family Household Members Other:: grandson Housing: Apartment Do you presently have visiting nurse or other home services: No Alcohol intake: never Comment: Significant other bedside Patient Tobacco Use Status: Former Tobacco user Tobacco use type: Cigarette Substance Use Type: Marijuana Advance Directives Date on File: 04/09/24 service: No Current occupational status: unemployed Sexual orientation: Straight/Heterosexual Gender identity: Female Review of Systems Const All systems reviewed & are unremarkable except as noted in HPI and below Physical Exam General: Appears afebrile. No acute distress. Alert and oriented. Mood and affect appropriate. Pleasant. Follows and participates in conversation appropriately. Respiratory effort is unlabored. No cough. O2 at 3L/min continuos. Able to transition from sit to stand unassisted. Ambulates with antalgic gait, mild limping. Extrem Right lower extremity: ankle (Limited ROM due to pain) Details: tenderness Location: of the lateral malleolus and of the medial malleolus and no edema; no swelling, no unusual warmth, no lacerations and no ecchymosis Psych Appearance: grossly normal and well kempt Mental Status: mental status grossly normal Speech and movement: Normal speech and movement present Affect: normal affect Attitude: cooperative Thought process: Normal thought process present Thought content: Normal thought content present, suicidality (none), no hallucinations and Depressive thoughts present Insight: Good insight present (Psych) Judgement: Good judgement present (Psych) Results Reviewed Results Reviewed: MRI LUMBAR SPINE WITHOUT CONTRAST EXAM DATE 05/07/2019 The marrow signal is within normal limits. Moderate disc space narrowing at L3-L4, severe loss of disc height L4-5 with endplate spurring mild endplate edema laterally on the right at L4-5. Mild rightward curvature of lumbar spine. No compression fractures. Trace anterior subluxation at L4-5. The paraspinal soft tissues appear normal. Bony pelvis is normal. Conus medullaris: Normal terminating at the level of L1. No level a spinal cord abnormalities. The cauda equina nerve roots are normal. Spinal levels: L1-L2: No disc pathology. No central canal stenosis or foraminal narrowing. L2-L3: Very mild disc bulge presents without central canal stenosis or foraminal encroachment. L3-L4: Moderate loss of disc height with large left foraminal disc extrusion! Severely compressing the exiting left L3 nerve root. Underlying mild disc bulge and mild facet arthropathy. No central canal stenosis. L4-5: Significant loss of disc height with broad-based disc bulge and right foraminal extraforaminal disc protrusion mildly distorting the exiting right L4 nerve root. Moderate facet arthropathy without central canal stenosis. L5-S1: Mild facet arthrosis no disc pathology: No central canal stenosis, or foraminal narrowing. XR SOFT TISSUE NECK 06/09/23 FINDINGS: Limited evaluation of the lower cervical spine secondary to patient positioning. No acute visible fracture or dislocation. Multilevel degenerative changes. Vertebral body heights and disc spaces are maintained. Prevertebral soft tissues unremarkable. Posterior elements are intact. Paraspinal soft tissues are unremarkable. Visualized portions of the upper chest are unremarkable. IMPRESSION: 1. Limited evaluation of the lower cervical spine secondary to patient positioning. 2. No acute visible fracture or dislocation. 3. Multilevel degenerative changes. CT/CT soft tissue neck w IV con 06/25/23 IMPRESSION: No cervical adenopathy or extra-mucosal soft tissue mass. Rightward curvature of the cervical spine with multilevel hypertrophic facet arthropathy. Mild amount of secretions in the tracheal airway which potentially would put the patient at risk for aspiration. Significant emphysematous changes in the lungs. XR ANKLE 3 OR MORE VIEWS RIGHT 05/14/24 HISTORY: pain COMPARISON: There are no prior studies available for comparison. FINDINGS: Three views of the right ankle are submitted. Osseous mineralization is normal. There is no fracture or dislocation. The joint spaces are preserved. The soft tissues are unremarkable. IMPRESSION: Unremarkable examination of the right ankle. Assessment & Plan Assessment & Plan (1) Right ankle sprain: Code(s): S93.401A - Sprain of unspecified ligament of right ankle, initial encounter Category: Medical (2) Opioid contract exists: Code(s): Z79.891 - buttermaker continuous churn (current) use of opiate analgesic Category: Medical (3) Cervicalgia: Code(s): M54.2 - Cervicalgia Category: Medical (4) Disc degeneration, lumbar: Code(s): M51.36 - Other intervertebral disc degeneration, lumbar region Category: Medical (5) Spondylosis of lumbar region without myelopathy or radiculopathy: Code(s): M47.816 - Spondylosis without myelopathy or radiculopathy, lumbar region Category: Medical Plan Patient has shown accountability for her medication regimen and the pill count was accurate. Masspat was reviewed and without concerns. No obvious signs of diversion, abuse or misuse of the opioid medications. Patient reports reasonable analgesia on current medication regime. Prescription sent for Oxycodone 5mg po TID prn with an advanced date of 09/02/24. Patient has Narcan script at home. She also takes pregabalin 150 mg BID prescribed by her Follow up with Orthopedics and physical therapy for right ankle pain as planned. Patient to follow-up in the office in one month for pill count and sooner as needed. Medications: Refilled oxycodone Partial Fill upon patient request. 5 mg PO TID 30 days PRN 90 tabs 0RF pain M46.1 - Sacroiliitis, not elsewhere classified, M47.816 - Spondylosis without myelopathy or radiculopathy, lumbar region, M51.36 - Other intervertebral disc degeneration, lumbar region Coding Level of Care Code Est Pt Level 4 (20953) Complex EM visit Add On G2211 Diagnoses Right ankle sprain S93.401A Opioid contract exists Z79.891 Cervicalgia M54.2 Disc degeneration, lumbar M51.36 Spondylosis of lumbar region without myelopathy or radiculopathy M47.816
[2024-08-12 14:08] VITALS: BP 119/70; PULSE 96; O2SAT 94; BMI 20.3
--- OUTSIDE RECORDS SUMMARY | 2024-08-12 14:44 | XMS_ITS | Clinical Summary ---
Author Organization [employer] Address [address] [place] [address] 7[address] [place] [address] Care Team Providers Care Mass Communications Professor Name Role Phone Zev Sanders MD Primary Care Provider [phone] Allergies No known active allergies Medications tiotropium (Spiriva Respimat) 2.5 MCG/ACT inhalerIndicat ions:COPD (chronic obstructive pulmonary disease) case management patient ([facility]) INHALE TWO PUFF BY MOUTH EVERY [...] MORNING 90 capsule 1 05/25/19 25 Active cholecalcifero l VITAMIN D (Vitamin D-3) 50 MCG (1999 UT) tablet TAKE ONE TABLET EVERY MORNING 90 tablet 07/10/19 25 Active QUEtiapine (SEROquel) 100 MG tablet Take 1 tablet (100 mg) by mouth at bedtime. 30 tablet 07/13/19 25 Active pregabalin (Lyrica) 150 MG capsuleIndicat ions:Chronic low back pain, unspecified back pain laterality, unspecified whether sciatica present Take 1 capsule (150 mg) by mouth 2 times daily. 60 capsule 08/06/19 25 Active pregabalin (Lyrica) 150 MG capsuleIndicat ions:Chronic low back pain, unspecified back pain laterality, unspecified whether sciatica present TAKE ONE CAPSULE TWICE DAILY IN THE MORNING AND AT BEDTIME 60 capsule 07/13/19 25 2024 Discontinued(R eorder (will not trigger notification to Pharmacy)) Active Problems Problem Noted Date Diagnosed Date Olecranon bursitis, right elbow 03/29/2022 Asthma-chronic obstructive p ulmonary disease overlap syndrome 12/19/2017 Chronic back pain 12/19/2017 Essential hypertension 12/19/2017 Menopausal symptom 12/19/2017 Migraine 12/19/2017 Mood disorder 12/19/2017 Seasonal allergies 12/19/2017 Tobacco dependence syndrome 12/19/2017 Encounters Date Type Department Care Team Description 08/10/2024 Telephone [facility] [address] [place] [address] Zev Sanders MD No Show 08/10/2024 Patient Outreach [facility] [address] [place] [address] Zev Sanders MD Care Coordination (C3/CM Outreach) 08/05/2024 Refill [facility] [address] [place] [address] Zev Sanders MD Chronic low back pain, unspecified back pain laterality, unspecified whether sciatica present 07/23/2024 Patient Outreach [address] [address] Zev Sanders MD Care Coordination (C3/CM Outreach) 07/23/2024 Patient Outreach [facility] [address] [place] [address] Zev Sanders MD 07/13/2024 Patient Outreach [address] [address] Zev Sanders MD Care Coordination (C3/CM Outreach) 07/08/2024 Patient Outreach [address] [address] Zev Sanders MD Care Coordination (C3/CM Outreach) 07/08/2024 Refill [facility] [address] [place] [address] Zev Sanders MD 07/07/2024 Refill [facility] [address] [place] [address] Zev Sanders MD Chronic low back pain, unspecified back pain laterality, unspecified whether sciatica present 07/02/2024 Patient Outreach [address] [address] Zev Sanders MD Care Coordination (C3/CM Outreach) 06/30/2024 Orders Only GENERIC EXTERNAL DATA DEPARTMENT Provider, Generic External Data 06/30/[address] [address] Zev Sanders MD Calderon 06/25/2024 Patient Outreach [address] [address] Zev Sanders MD Care Coordination (C3/CM Outreach) 06/21/2024 Patient Outreach [address] [address] Zev Sanders MD Care Coordination (C3/CM Outreach) 06/21/2024 Patient Outreach [facility] MEDICINE [address] [place] [address] Zev Sanders MD 06/21/2024 Patient Outreach [facility] MEDICINE [address] [place] [address] Zev Sanders MD Transition Of Care (Tcm) 06/21/2024 Patient Outreach [facility] [address] [place] [address] Zev Sanders MD Care Coordination (C3CM chart review) 06/21/2024 Patient Outreach [address] [address] Zev Sanders MD 06/19/2024 Orders Only GENERIC EXTERNAL DATA DEPARTMENT Provider, Generic External Data 06/11/2024 Population Health Risk Score [facility] (C3) Department [address] [place] [phone] Provider, Population Health Generic 06/01/2024 Refill [facility] [address] [place] [address] Zev Sanders MD Chronic low back pain, unspecified back pain laterality, unspecified whether sciatica present 05/25/2024 Refill [facility] [address] [place] [address] Zev Sanders MD from Last 3 Months Immunizations Immunization Administration Dates Next Due Influenza injectable quadriv [...] 05/10/2024 1:17 PM EST Plan of Treatment Health Maintenance Due Date Last Done Comments [...] patient's age to complete this topic Meningococcal B Vaccine Aged Out No l onger eligible based on patient's age to complete [...] 12:40 PM EDT BLOOD CULTURE (SECOND) Routine 06/19/2024 12:40 PM EDT BLOOD CULTURE (FIRST) Routine 06/19/2024 12:37 PM EDT LAB COLOGUARD?? COLON CANCER SCREEN Routine 03/10/2023 [...] PM EDT) Influenza A PCR NEGATIVE Negative [facility] Influenza B PCR NEGATIVE Negative [facility] Resp Syncy Virus RNA Qual PCR NEGATIVE Negative [facility] SARS COV2 PCR NEGATIVE Negative [facility] Comment:All test results mus t be [...] use by authorized laboratories.Testing performed on the [employer] GeneXpert utilizingreal-time RT-PCR.All SARS CoV2 and positive influenza A/B results arereported to [facility]. 06/30/2024 2:58 PM EDT 06/30/2024 3:03 PM EDT us Generic External Data Provider LAB MICROBIOLOGY - GENERAL ORDERABLES Final Result [facility] [address] [place] [phone] * XR Chest 1 View (06/30/2024 11:40 AM EDT) Anatomical Region Laterality Modality Chest Radiographic Joy ging 06/30/2024 11:4 0 AM EDT Narrative 06/30/2024 12:45 PM EDT ? [facility] ?[address] ?[place] [address] ?XRay Report ? Signed ? Patient: Delvalle Izquierdo,Deysi D ?MR#: ?? [id number] ? : 1970 ?Acct:[id number] ? Age/Sex: 54 / F ?ADM Date: 06/30/24 ? Loc: HO.ED ? Attending Dr: ? Ordering Physician: Demetrius Valdivia MD ?? Date of Service: 06/30/24 ?? Procedure(s): XR chest 1V ?? Accession Number(s): [id number] ? cc: Zev Sanders MD; Demetrius Valdivia [...] cardiopulmonary abnormality. ? Electronically signed by: ??Rodriguez Damno MD ??06/30/2024 12:42 PM EDT ?? RP ? Dictated By: ?Rodriguez Damon MD ? Signed By: ?<Electronically signed by Rodriguez Damon MD in OV> ?06/30/24 1242 ? DD/ 1140 ? TD/TT: 06/30/24 1226 ? Assistant Director Of Financial Aid: ? Procedure Note Travis Griffin - 06/30/[address] [address] XRay Report Signed Patient: Deysi Pfeiffer DMR#: [id number] : 1970Acct:[id number] Age/Sex: 54 / FADM Date: 06/30/24 Loc: HO.ED Attending Dr: Ordering Physician: Demetrius Valdivia MD Date of Service: 06/30/24 Procedure(s): XR chest 1V Accession Number(s): [id number] cc: Zev Sanders MD; Demetrius Valdivia MD [...] Rodriguez Damon MD 06/30/2024 12:42 PM EDT RP Dictated By: Rodriguez Damon MD Signed By: <Electronically signed by Rodriugez Damon MD in OV> 06/30/24 1242 DD/ 1140 TD/TT: 06/30/24 1226 Assistant Director Of Financial Aid: [facility] External Provider IMG XR PROCEDURES Edited Result - Final * CT Abdomen Pelvis w/ Contrast (06/19/2024 4:58 PM EDT) Anatomical Region Laterality Modality Body, Pelvis, Abdomen Computed T omography 06/19/2024 4:58 PM EDT Narrative 06/19/2024 4:59 PM EDT ? [facility] ?[address] ?[place] [address] ? CT Scan Report ? Signed ? Patient: Deysi Pfeiffer D ?MR#: ?? [id number] ? : 1970 ?Acct:[id number] ? Age/Sex: 54 / F ?ADM Date: 03/22/25 ? Loc: HO.ED ? Attending Dr: ? Ordering Physician: Ace Briones ?? Date of Service: 06/19/24 ?? Procedure(s): CT abdomen pelvis w IV con ?? Accession Number(s): [id number] ? cc: Zev Sanders MD; Ace Briones ? Report Number: ?? [id number]: Total DLP = ??366.25 mGy-cm ? CLINICAL [...] 06/19/24 1659 ? DD/ 1658 ? TD/TT: 06/19/248 ? Assistant Director Of Financial Aid: ? Procedure Note Elias, Image - 06/19/[address] [place] [address] [address] Scan Report Signed Patient: Deysi Pfeiffer DMR#: [id number] : 1970Acct:[id number] Age/Sex: 54 / FADM Date: 06/19/24 Loc: HO.ED Attending Dr: Ordering Physician: Ace Briones Date of Service: 06/19/24 Procedure(s): CT abdomen pelvis w IV con Accession Number(s): [id number] cc: Zev Sanders MD; Ace Briones Report Number: [id number]: Total DLP = 366.25 mGy-cm CLINICAL HISTORY: [...] in OV> 06/19/241658 DD/ 57 TD/TT: 06/19/241657 Assistant Director Of Financial Aid: [facility] External Provider IMG CT PROCEDURES Edited Result - Final * CTA Chest PE Protocal (06/19/2024 4:55 PM EDT) Anatomical Region Laterality Modality Body, Chest Computed Tomogra phy 06/19/2024 4:55 PM EDT Narrative 06/19/2024 4:57 PM EDT ? [facility] ?[address] ?[place] [address] ? CT Scan Report ? Signed ? Patient: Delvalle Timbo,Deysi D ?MR#: ?? [id number] ? : 1970 ?Acct:[id number] ? Age/Sex: 54 / F ?ADM Date: 06/19/25 ? Loc: HO.ED ? Attending Dr: ? Ordering Physician: Ace Briones ?? Date of Service: 06/19/24 ?? Procedure(s): CT angio chest PE protocol ?? Accession Number(s): [id number] ? cc: Zev Sanders MD; Ace Briones ? Report Number: ?? [id number]: Total DLP = ??166.75 mGy-cm ? CLINICAL [...] Joel Villalta MD in OV> ? 06/19/24 1656 ? DD/ 1655 ? TD/TT: 06/19/245 ? Assistant Director Of Financial Aid: ? Procedure Note Elias, Image - 06/19/[address] [place] [address] [address] Scan Report Signed Patient: Deysi Pfeiffer DMR#: [id number] : 1970Acct:[id number] Age/Sex: 54 / FADM Date: 06/19/24 Loc: HO.ED Attending Dr: Ordering Physician: Ace Briones Date of Service: 06/19/24 Procedure(s): CT angio chest PE protocol Accession Number(s): [id number] cc: Zev Sanders MD; Ace Briones Report Number: [id number]: Total DLP = 166.75 mGy-cm CLINICAL HISTORY: [...] signed by Joel Villalta MD in OV> 06/19/241655 DD/ 54 TD/TT: 06/19/241654 Assistant Director Of Financial Aid: [facility] External Provider IMG CT PROCEDURES Edited Result - Final * CT Head w/o Contrast (06/19/2024 4:50 PM EDT) Anatomical Region Laterality Modality Head, Neck Computed Tomogra phy 06/19/2024 4:50 PM EDT Narrative 06/19/2024 4:52 PM EDT ? [facility] ?[address] ?[place] [address] ? CT Scan Report ? Signed ? Patient: Deysi Pfeiffer D ?MR#: ?? [id number] ? : 1970 ?Acct:[id number] ? Age/Sex: 54 / F ?ADM Date: 06/19/24 ? Loc: HO.ED ? Attending Dr: ? Ordering Physician: Ace Briones ?? Date of Service: 06/19/24 ?? Procedure(s): CT head/brain wo IV con ?? Accession Number(s): [id number] ? cc: Zev Sanders MD; Ace Briones ? Report Number: ?? [id number]: Total DLP = ??666.00 mGy-cm ? CLINICAL [...] 06/19/24 1651 ? DD/ 1650 ? TD/TT: 06/19/24 1650 ? Assistant Director Of Financial Aid: ? Procedure Note Donediliater, Image - 06/19/[address] [place] [address] [address] Scan Report Signed Patient: Deysi Pfeiffer DMR#: [id number] : 1970Acct:[id number] Age/Sex: 54 / FADM Date: 06/19/24 Loc: HO.ED Attending Dr: Ordering Physician: Ace Briones Date of Service: 06/19/24 Procedure(s): CT head/brain wo IV con Accession Number(s): [id number] cc: Zev Sanders MD; Ace Briones Report Number: [id number]: Total DLP = 666.00 mGy-cm CLINICAL HISTORY: [...] signed by Joel Villalta MD in OV> 06/19/24 1651 DD/ 49 TD/TT: 03/22/25 1650 Assistant Director Of Financial Aid: [facility] External Provider IMG CT PROCEDURES Edited Result - Final * (ABNORMAL) Urinalysis w/reflex microscopic (06/19/2024 4:26 PM EDT) Color Urine Yellow [facility] Appearance Urine Clear [facility] PH 5.5 5.0 - 9.0 [facility] Glucose Urine UA Negative Negative mg/dL [facility] Urine Blood Negative Negative [facility] Specific Cummings - Urine >=1.030(H) 1.005 - 1.025 [facility] Urine Protein Negative Neg-Trace mg/dL [facility] Urine Ketones 15 Negative mg/dL [facility] Nitrite Urine Negative Negative [facility] Leukocyte Esterase Urine Negative Negative [facility] 06/19/2024 4:26 PM EDT 06/19/2024 4:28 PM EDT Narrative [facility] - 06/19/2024 4:39 PM EDT [id number], Clean Catch Generic External Data Provider LAB URINE ORDERAB LES Final Result Performing Organization Address [facility]/ZIP Co de Phone Number [facility] [address] [place] [phone] * Blood Culture (Second) (06/19/2024 12:40 PM EDT) Blood Venous blood specimen / Unknown 06/19/2024 12:40 PM EDT 06/19/2024 12:44 PM EDT Comment:Blood Narrative [facility] - 06/24/2024 2:44 PM EDT Blood Culture (Second) No growth after 5 days. Specimen Source: Blood Generic External Data Provider LAB MICROBIOLOGY - GENERAL ORDERABLES Final Result Performing Organization Address City/[facility]/ZIP Co de Phone Number [facility] [address] [place] [phone] * Lactic Acid (06/19/2024 12:40 PM EDT) Lactic Acid 0.9 0.5 - 2.0 mmol/L [facility] 06/19/2024 12:4 0 PM EDT 06/19/2024 12:44 PM EDT Generic External Data Provider LAB BLOOD ORDERAB LES Final Result Performing Organization Address [facility] Co de Phone Number [facility] [address] [place] [phone] * Blood Culture (First) (06/19/2024 12:37 PM EDT) Blood Venous blood specimen / Unknown 06/19/2024 12:37 PM EDT 06/19/2024 12:40 PM EDT Comment:Blood Narrative [facility] - 06/24/2024 2:41 PM EDT Blood Culture (First) No growth after 5 days. Specimen Source: Blood Generic External Data Provider LAB MICROBIOLOGY - GENERAL ORDERABLES Final Result Performing Organization Address [facility] Co de Phone Number [facility] [address] [place] [phone] * Cologuard?? colon cancer screening (03/10/2023 2:14 PM EST) Cologuard Result Negative Negative 03/21/20 1:56 AM EST [employer] (CLIA #:[id number]) Comment: NEGATIVE TEST RESULT. A negative Cologuard [...] cancer. ??Following a negative Cologuard result, the [place] [employer] Society and U.S. Multi-Society Task Force screening guidelines recommend a Cologuard re-screening interval of 3 years. References: [place] [employer] Guideline for Colorectal Cancer Screening: https://www.cancer.org/cancer/qgbhn-uxluje-vejuzd/bpmzwlhpi-uljsgmmmi-snxwgcs/ac s-rec ommendations.html.; Edgar DK, Antonio STONE, Salma CorderoK, Colorectal Cancer Screening: Recommendations for Physicians and Patients from the U.S. Multi-Society Task Force on Colorectal Cancer Screening , Am J Gastroenterology 2017; 112:5881-9657. TEST DESCRIPTION: Composite algorithmic analysis of stool [...] with both Cologuard and colonoscopy. (Jorge Luis Polanco, N Engl J Med 2014;370(14):3175-9393.) Cologuard may produce a false negative or false positive result (no colorectal cancer or precancerous polyp present at colonoscopy follow up). A negative Cologuard test result does not guarantee the absence of CRC or advanced adenoma (pre-cancer). The current Cologuard screening interval is every 3 years. ([place] [employer] and U.S. Multi-Society Task Force). Cologuard performance data in a 10,000 patient pivotal study using colonoscopy as the reference method can be accessed at the following location: www.[employer]Tech.[employer]/results. Additional description of the Cologuard test process, warnings and precautions can be found at www.cologuard.com. Stool specimen (specimen) 03/10/2023 2:14 PM EST 03/12/2023 8:29 PM EST us Zev Sanders MD LAB MOLECULAR DIAGNOSTICS O RDERABLES Final Result [employer] (CLIA #:[id number]) [address] [place] [address], * HPV E6/E7 RFLX VANNESSA 16 18/45 (01/15/2022 10:19 AM EDT) HPV mRNA E6/E7 rflx Not Detected Not Detected [facility] Comment: Methodology: Rn Clinical Research-Mediated Amplification This assay detects E6/E7 viral messenger RNA (mRNA) from 14 high-risk HPV types (16,18,31,33,35,39,45,51,52,56,58,59,66,68). Cervical sources are required for HPV testing. If a vaginal source from a patient who has had a total hysterectomy with removal of cervix was submitted, please contact the testing laboratory for alternative testing options. For additional information, please refer to http://education.[employer]/faq/FPL780g3 (This link if provided for information/ educational purposes only.) THIS TEST WAS PERFORMED AT: [facility] [address] [place] [address],[address] [place], [place] ??[phone] ESPERANZA CRUZ MD 01/15/2022 10:1 9 AM EDT Mario Alberto Morgan MD HISTORICAL/NON ORDERABLE LABS Fi nal Result [facility] * Hm Pap Smear (01/15/2022) Historical Provider HEALTH MAINTENANCE Final Result * HEPATITIS C AB W/REFL TO HCV RNA, QN, PCR (11/12/2021 12:09 PM EDT) Pathologist [facility] HEPATITIS C ANTIBODY NON-REACT JOSE MANUEL NON-REACT JOSE MANUEL [facility] INDEX 0.09 <1.00 [facility] Comment: ?? HCV antibody was non-reactive. There is no laboratory ?? evidence of HCV infection. ?? In most cases, no further action is required. However, if recent HCV exposure is suspected, a test for HCV RNA (test code 47852) is suggested. ?? For additional information please refer to http://education.[employer]/faq/SHL45d9 (This link is being provided for informational/ educational purposes only.) ?? 11/12/2021 12:0 9 PM EDT Zev Sanders MD HISTORICAL/NON ORDERABLE LA BS Final Result Performing Organization Address City/[facility]/ZIP Co de Phone Number [facility] [address] * (ABNORMAL) LIPID PANEL, STANDARD (11/12/2021 12:09 PM EDT) Pathologist [facility] Chol/HDLC Ratio 3.3 <5.0 (calc) [facility] [...] the ?? estimation of LDL-C. ?? Hilario SS et al. JUANA. 2013;310(19): 4771-6462 ?? (http://Diagnoplex.[employer]/faq/THY408) Non-HDL Cholesterol 129 <130 mg/dL (calc) [facility] Comment: For patients with diabetes plus 1 major ASCVD risk ?? factor, treating to a non-HDL-C goal of <100 mg/dL ?? (LDL-C of <70 mg/dL) is considered a therapeutic ?? option. Triglycerides 120 <150 mg/dL [facility] 11/12/2021 12:0 9 PM EDT us Zev Sanders MD LAB BLOOD ORDERABLES Final Result [facility] [address] * Mammography Report 1 (10/17/2021 [...] Most Recently Relevant to Health Maintenance Insurance [employer] Care Teams Mass Communications Professor Relationship Specialty Start Date End Date Zev Sanders MD [address] [place] [phone] PCP - General Internal Medicine 11/16/19
--- OUTSIDE RECORDS SUMMARY | 2024-08-12 14:44 | XMS_ITS | Encounter Summary ---
Author Organization [employer] Address [address] [facility] 7 [place] [address] Care Team Providers Care Maintenance Machinist Name Role Phone Zev Sanders MD Primary Care Provider [phone] Reason for Visit * Reason Onset Date Comments No Show 08/10/2024 Encounter Details Date Type Department Care Team ([facility] [address] Contact Info) Description 08/10/2024 Telephone [facility] MED & PEDS [address] [place], [place] [phone] Zev Sanders MD [address] [place] [address] No Show Social History Tobacco Use Types [...] * Telephone Encounter - Ronak Tobin - 08/10/2024 3:14 PM EDT No show 08/10/24 chronic conditions documented in this encounter Plan of Treatment Not on file documented as of this encounter Visit Diagnoses Not on filedocumented in this encounter Additional Health Concerns Assessment Noted Time PHQ-9 Depression Total Score: 7 10/14/19 24 11:59 AM EDT documented as of this encounter Care Teams Maintenance Machinist Relationship Specialty Start Date End Date Zev Sanders MD [address] [place] [phone] PCP - General Internal Medicine 11/16/19 documented as of this encounter
--- OUTSIDE RECORDS SUMMARY | 2024-08-12 14:45 | XMS_ITS | Encounter Summary ---
Author Organization [employer] Address [address] [place] [address] 7 [place] [address] Care Team Providers Care Online User Experience Strategist Name Role Phone Zev Sanders MD Primary Care Provider [phone] Reason for Visit * Reason Onset Date Comments Appointment Request 11/01/2022 Encounter Details Date Type Department Care Team ([facility] st Contact Info) Description 11/01/2022 Telephone [facility] CHC MED & PEDS [address] [place], [place] [phone] Zev Sanders MD [address] [place] [address] Appointment Request Social History Tobacco Use Types [...] PE on 10/24/2022. Please contact pt at [phone] documented in this encounter Plan of Treatment Not on file documented as of this encounter Visit Diagnoses Not on filedocumented in this encounter Care Teams Online User Experience Strategist Relationship Specialty Start Date End Date Zev Sanders MD [address] [place] [address] PCP - General Internal Medicine 11/16/19 documented as of this encounter
--- OUTSIDE RECORDS SUMMARY | 2024-08-12 14:45 | XMS_ITS | Encounter Summary ---
Author Organization [employer] Address [address] [place] [address] 7 [place] [address] Care Team Providers Care Senior Wind Turbine Technician Name Role Phone Zev Sanders MD Primary Care Provider [phone] Reason for Visit * Reason Comments Med Refill Encounter Details Date Type Department Care Team ([facility] st Contact Info) Description 11/05/2022 Refill [facility] MED & PEDS [address] [place], [place] [phone] Zev Sanders MD [address] [place] [address] Chronic low back pain, unspecified back pain [...] as of this encounter Plan of Treatment Not on file documented as of this encounter Visit Diagnoses Diagnosis Chronic low back pain, unspecified back pain laterality, unspecified whether sciatica present documented in this encounter Care Teams Senior Wind Turbine Technician Relationship Specialty Start Date End Date Zev Sanders MD [address] [place] [address] PCP - General Internal Medicine 11/16/19 documented as of this encounter
--- OUTSIDE RECORDS SUMMARY | 2024-08-12 14:45 | XMS_ITS | Encounter Summary ---
Author Organization [employer] Address [address] [place] [address] 7[address] [place] [address] Care Team Providers Care Finish Mixer Name Role Phone Zev Sanders MD Primary Care Provider [phone] Encounter Details Date Type Department Care Team ([facility] st Contact Info) Description 10/22/2022 Orders Only [facility] CHC MED & PEDS [address] [place], [place] [phone] Zev Sanders MD [address] [place] [address] Gastroenteritis (Primary Dx) Social History Tobacco Use [...] colitis documented in this encounter Care Teams Finish Mixer Relationship Specialty Start Date End Date Zev Sanders MD [address] [place] [address] PCP - General Internal Medicine 11/16/19 documented as of this encounter
--- OUTSIDE RECORDS SUMMARY | 2024-08-12 14:45 | XMS_ITS | Encounter Summary ---
Author Organization [employer] Address [address] [facility] 7t [place] [address] Care Team Providers Care Residential Program Director Name Role Phone Zev Sanders MD Primary Care Provider [phone] Encounter Details Date Type Department Care Team ([facility] st Contact Info) Description 07/21/2023 Orders Only [facility] CHC MED & PEDS [address] [place], [place] [phone] Zev Sanders MD 505 [place] [address] Social History Tobacco Use Types Packs/Day Years [...] on filedocumented in this encounter Care Teams Residential Program Director Relationship Specialty Start Date End Date Zev Sanders MD [address] [place] [phone] PCP - General Internal Medicine 11/16/19 documented as of this encounter
--- OUTSIDE RECORDS SUMMARY | 2024-08-12 14:45 | XMS_ITS ---
Author Organization [employer] Address [address] [place] [address] 7t [place] [address] Care Team Providers Care Electrical Electronics Technician Name Role Phone Zev Sanders MD Primary Care Provider [phone] CM Complex Status:Closed (Closed) Start date:06/21/2024 Enrollment reason:ADT Feed End date:08/10/2024 Close reason:Cannot Reach Overview ED_ Pt went to [facility] ED on 06/19/24. . Continued Care and Services Coordination
--- OUTSIDE RECORDS SUMMARY | 2024-08-12 14:45 | XMS_ITS | Encounter Summary ---
Author Organization [employer] Address [address] [facility] 7t [place] [address] Care Team Providers Care Licensed Architect Name Role Phone Zev Sanders MD Primary Care Provider [phone] Encounter Details Date Type Department Care Team (Late st Contact Info) Description 12/24/2022 Orders Only [facility] MEDICINE [address] [place] [address] Provider, MD Josh Social History Tobacco Use [...] on file documented as of this encounter Procedures Procedure Name Priority Date/Time Associated Diagnosis Comments HM PAP/HPV Routine 01/15/2022 documented in this encounter Results * Hm Pap Smear (01/15/2022) Historical Provider HEALTH MAINTENANCE Final Result documented in this encounter Visit Diagnoses Not on filedocumented in this encounter Care Teams Licensed Architect Relationship Specialty Start Date End Date Zev Sanders MD 505 [place] [address] PCP - General Internal Medicine 11/16/19 documented as of this encounter
--- OUTSIDE RECORDS SUMMARY | 2024-08-12 14:45 | XMS_ITS | Encounter Summary ---
Author Organization [employer] Address [address] [facility] 7t [place] [address] Care Team Providers Care Police Captain Name Role Phone Zev Sanders MD Primary Care Provider [phone] Encounter Details Date Type Department Care Team ([facility] st Contact Info) Description 04/12/2022 Orders Only [facility] [address] [place] [address] Zev Sanders MD 505 [place], [place] [phone] Social History Tobacco Use Types Packs/Day Years [...] 1:26 PM EDT Sexual Orientation Straight 10/14/2023 1 :26 PM EDT COVID-19 Exposure Response Date Recorded [...] (10/21/2022 2:13 PM EDT) Slide Review VERIFIED [facility] 10/21/2022 2:13 PM EDT 10/21/2022 5:23 PM EDT us Zev Sanders MD LAB BLOOD ORDERABLES Final Result [facility] [address] [place] [phone] * (ABNORMAL) VENOUS BLOOD GAS (09/04/2022 1:17 PM EDT) VBG pH 7.37 7.32 - 7.43 [facility] Comment:METER #: [id number] additional_comment: Cb murpe VBG PCO2 57 mmHg [facility] Comment:METER #: [id number] additional_comment: Cb murpe VBG PO2 48 mmHg [facility] Comment:METER #: [id number] additional_comment: Cb murpe VBG Base Excess 6.2 mmol/L [facility] Comment:METER #: [id number] additional_comment: Cb murpe VBG HCO3 33(H) 22 - 26 mmol/L [facility] Comment:METER #: [id number] additional_comment: Cb murpe O2 Sat, Lefty 77.0 % [facility] Comment:METER #: [id number] additional_comment: Cb murpe 09/04/2022 1:17 PM EDT 09/04/2022 1:23 PM EDT [facility] External Provider LAB BLO OD ORDERABLES Final Result Performing Organization Address [facility] [address] [place] [phone] * D Dimer High Sensitivity (09/04/2022 1:10 PM EDT) D Dimer High Sensitivity <150 NG/ML [facility] Comment:D-DIMER HS REFERENCE RANGENote: Our assay reports D-Dimer Units (D- DU).The cut-off value for venous thromboembolic (VTE) disease is230 ng/mL. This value has a very high negative predictivevalue when the patient has a low to moderate clinicalprobability of VTE.The upper limit of normal is 243 ng/mL. 09/04/2022 1:10 PM EDT 09/04/2022 1:18 PM EDT [facility] External Provider LAB BLO OD ORDERABLES Final Result Performing Organization Address [facility] [address] [place] [phone] * B Type Natriuretic Peptide (BNP) (09/04/2022 11:26 AM EDT) B Type Natriuretic Peptide 19 <100 pg/mL [facility] Comment:For those patients w ho are being treated with Natrecor(nesiritide, recombinant BNP), BNP testing should beperformed at least two hours post treatment in order toensure that only endogenous levels of BNP are detected. 09/04/2022 11:2 6 AM EDT 09/04/2022 1:27 PM EDT us [facility] External Provider LAB BLO OD ORDERABLES Final Result [facility] [address] [place] [phone] [phone] * (ABNORMAL) Comprehensive Metabolic Panel (09/04/2022 11:26 AM EDT) Sodium 142 135 - 145 mmol/L [facility] Potassium 4.2 3.3 - 5.1 mmol/L [facility] Chloride 102 96 - 108 mmol/L [facility] Carbon Dioxide 34(H) 22 - 29 mmol/L [facility] Anion Gap 10(L) 12 - 20 [facility] Urea Nitrogen (BUN) 15 9 - 16 mg/dL [facility] Creatinine, Serum 0.68 0.5 - 1.4 mg/dL [facility] Creatinine Clr Calc Pharmacy 74.8 [facility] Comment:Provided height and weight: 162.56 cm,49 kg.eGFR (calculated from the MDRD study equation) and eCrCl(calculated from the Cockcroft-Gault equation) are based ondifferent parameters and may not yield comparable results.If eCrCl result is absurd, please check patient'sheight/weight. Estimated Glomerular Filt Rate >60 [facility] Comment:NOTE: For -Am erican individuals, multiply the result by 1.210.Chronic Kidney Disease: Estimated GFR < 60 mL/min/1.16m0Hvkxyb Kidney Disease: Estimated GFR < 15 mL/min/1.73m2 Glucose 112 60 - 115 mg/dL [facility] Calcium 9.4 8.4 - 10.2 mg/dL [facility] Bilirubin, Total 0.7 0.0 - 1.0 mg/dL [facility] Aspartate Amino Transferase 21 5 - 31 U/L [facility] Alanine Aminotransferase 17 0 - 31 U/L [facility] Total Protein 6.7 6.5 - 8.0 g/dL [facility] Albumin Level 4.1 3.5 - 5.0 g/dL [facility] Alkaline Phosphatase 73 39 - 117 U/L [facility] 09/04/2022 11:2 6 AM EDT 09/04/2022 11:33 AM EDT [facility] External Provider LAB BLO OD ORDERABLES Final Result [facility] [address] [place] [address] [phone] * COVID-19 ID NOW (ZAYAS) (09/04/2022 11:26 AM EDT) IDNOW SERIAL# [id number] [facility] COVID-19 TEST Negative Negative [facility] COVID-19 NOTE See Note [facility] Comment: Results are for the identification of SARS-CoV2 RNA. TheSARS-CoV2 RNA is generally detectable in respiratory samplesduring the acute phase of infection. Positive results areindicative of the presence of SARS-CoV-2 RNA; clinicalcorrelation with patient history and other diagnosticinformation is necessary to determine patient infectionstatus. Positive results do not rule out bacterial infectionor co- infection with other viruses.Testing facilities within the [facility] and itsterritories are required to report [...] use by authorized laboratories.Testing performed on the Zayas ID NOW utilizing NAAT. 09/04/2022 11:2 6 AM EDT 09/04/2022 11:33 AM EDT [facility] Exter nal Provider LAB MOLECULAR DIAGNOSTICS ORDERABLES Final Result [facility] [address] [place], [place] [phone] * (ABNORMAL) CBC auto differential (09/04/2022 11:26 AM EDT) White Blood Count 10.4 4.8 - 10.8 X10*3/uL [facility] Red Blood Count 5.42 4.20 - 5.50 X10*6/uL [facility] Hemoglobin 16.0 12.0 - 16.0 g/dl [facility] Hematocrit 49.3(H) 37.0 - 47.0 % [facility] Mean Corpuscular Volume 91.0 80.0 - 98.0 fL [facility] Mean Corpuscular Hemoglobin 29.5 27.0 - 33.0 pg [facility] Mean Corpuscular HGB Conc 32.5 31.0 - 35.0 g/dl [facility] Red Cell Distribution Width 14.6 11.0 - 16.0 % [facility] Platelet Count 238 160 - 400 X10*3/uL [facility] Mean Platelet Volume 9.5 9.4 - 12.3 fL [facility] Neutrophils Percent Auto 51.2 45 - 73 % [facility] Imm Gran Pct Auto 0.3 0.0 - 0.4 % [facility] Lymphocytes Percent Auto 38.4 20 - 40 % [facility] Monocytes Percent Auto 8.1 2 - 11 % [facility] Eosinophils Percent Auto 1.5 0 - 4 % [facility] Basophils Percent Auto 0.5 0 - 2 % [facility] NRBC Pct Auto 0.0 0.0 - 0.2 /100WBC [facility] Neutrophils Absolute Auto 5.4 2.0 - 8.3 x10*3/uL [facility] Imm Gran Abs Auto 0.03 0.00 - 0.03 X10*3/uL [facility] Lymphocytes Absolute Auto 4.0 1.2 - 4.9 X10*3/uL [facility] Monocytes Absolute Auto 0.8 0.1 - 1.2 X10*3/uL [facility] Eosinophils Absolute Auto 0.2 0.0 - 0.4 X10*3/uL [facility] Basophils Absolute Auto 0.1 0.0 - 0.2 X10*3/uL [facility] NRBC Abs Auto 0.000 0.0 - 0.012 X10*3/uL [facility] 09/04/2022 11:2 6 AM EDT 09/04/2022 11:33 AM EDT us [facility] External Provider LAB BLO OD ORDERABLES Final Result Performing Organization Address City/State/[facility] Co de Phone Number [facility] [address] [place] [phone] documented in this encounter Visit Diagnoses Not on filedocumented in this encounter Care Teams Police Captain Relationship Specialty Start Date End Date Zev Sanders MD [address] [place] [phone] PCP - General Internal Medicine 11/16/19 documented as of this encounter
--- OUTSIDE RECORDS SUMMARY | 2024-08-12 14:45 | XMS_ITS | Encounter Summary ---
Author Organization [employer] Address [address] [facility] 7t [place] [address] Care Team Providers Care Movement Education Specialist Name Role Phone Zev Sanders MD Primary Care Provider [phone] Reason for Visit * Reason Onset Date Comments Med Refill 07/21/2023 Encounter Details Date Type Department Care Team ([facility] st Contact Info) Description 07/21/2023 Telephone [facility] MEDICINE [address] [place] [address] Zev Sanders MD [address] [place], [place] [phone] Med Refill Social History Tobacco Use Types [...] 150 MG capsule To be sent to: [facility] [place] - [address] [place] [address] documented in this encounter Plan of Treatment Not on file documented as of this encounter Visit Diagnoses Not on filedocumented in this encounter Care Teams Movement Education Specialist Relationship Specialty Start Date End Date Zev Sanders MD [address] [place] [address] PCP - General Internal Medicine 11/16/19 documented as of this encounter
--- OUTSIDE RECORDS SUMMARY | 2024-08-12 14:45 | XMS_ITS ---
Author Organization [employer] Address [address] [place] [address] 7 [place] [address] Care Team Providers Care Axminster Weaver Name Role Phone Zev Sanders MD Primary Care Provider [phone] CHW Complex Status:Closed (Closed) Start date:06/21/2024 Enrollment reason:ADT Feed End date:08/10/2024 Close reason:Cannot Reach Overview ED_ Pt went to [facility] ED on 06/19/24. . Continued Care and Services Coordination
--- OUTSIDE RECORDS SUMMARY | 2024-08-12 14:45 | XMS_ITS | Encounter Summary ---
Author Organization [employer] Address [address] [facility] 7 [place] [address] Care Team Providers Care Physician Allergist Immunologist Name Role Phone Zev Sanders MD Primary Care Provider [phone] Reason for Visit * Reason Comments Care Coordination C3/CM Outreach Encounter Details Date Type Department Care Team (Latest Contact Info) Description 08/10/2024 Patient Outreach [facility] CHC MED & PEDS [address] [place], [place] [phone] Zev Sanders MD [address] [place] [address] Care Coordination (C3/CM Outreach) Social History Tobacco [...] encounter Progress Notes * Keiry Marie - 08/10/2024 1:30 PM EDT CHW Keiry Marie placed three outreach calls to patient to introduce Complex Care Program. M witheach call describing the program and requesting call back to CHW's direct line, . Patient's name, and Address was not confirmed. CHW did not receive any return calls from the patient.On last call provided patient with direct contact information for future reference. Case closed dueto unable to reach. documented in this encounter Plan of Treatment Not on file documented as of this encounter Visit Diagnoses Not on filedocumented in this encounter Additional Health Concerns Assessment Noted Time PHQ-9 Depression Total Score: 7 10/14/19 24 11:59 AM EDT documented as of this encounter Care Teams Physician Allergist Immunologist Relationship Specialty Start Date End Date Zev Sanders MD [address] [place] [phone] PCP - General Internal Medicine 11/16/19 documented as of this encounter
== END 2024-08-12 14:15 | disposition home or self-care (01) ==
LOC: HO.PMC 14:01
PROVIDERS: PCP Internal Medicine; Visit Provider Nurse Practitioner Family
DX: S93.401A Sprain of unspecified ligament of right ankle, initial encounter (principal); Z79.891 Long term (current) use of opiate analgesic; M54.2 Cervicalgia; M51.369 Other intervertebral disc degeneration, lumbar region without mention of lumbar back pain or lower extremity pain; M47.816 Spondylosis without myelopathy or radiculopathy, lumbar region
CPT/HCPCS: 99214

== ENCOUNTER → 2024-08-12 14:00 | Outpatient (BNVA) | payer MEDICAID, SELFPAY | PROVIDERS: PCP Internal Medicine; Visit Provider Nurse Practitioner Family | DX: J45.909 Unspecified asthma, uncomplicated (principal); J44.1 Chronic obstructive pulmonary disease with (acute) exacerbation; J96.91 Respiratory failure, unspecified with hypoxia; Z78.9 Other specified health status; Z51.81 Encounter for therapeutic drug level monitoring; S93.401A Sprain of unspecified ligament of right ankle, initial encounter; M54.2 Cervicalgia; M51.360 Other intervertebral disc degeneration, lumbar region with discogenic back pain only; M47.816 Spondylosis without myelopathy or radiculopathy, lumbar region; Z79.891 Long term (current) use of opiate analgesic | CPT/HCPCS: 99212 ==

== ENCOUNTER 2024-08-12 14:27 | Outpatient (AMB) | payer MEDICAID, SELFPAY ==
--- OUTSIDE RECORDS SUMMARY | 2024-08-12 15:04 | XMS_ITS | Encounter Summary ---
Author Organization [employer] Address [address] [facility] 7t [place] [address] Care Team Providers Care Proofer Prepress Name Role Phone Zev Sanders MD Primary Care Provider [phone] Reason for Visit * Reason Onset Date Comments Med Refill 07/21/2023 Encounter Details Date Type Department Care Team ([facility] st Contact Info) Description 07/21/2023 Telephone [facility] MEDICINE [address] [place] [address] Zev Sanders MD [address] [place], [place] [phone] Med Refill Social History Tobacco Use Types [...] 150 MG capsule To be sent to: [facility] [place] - [address] [place] [address] documented in this encounter Plan of Treatment Not on file documented as of this encounter Visit Diagnoses Not on filedocumented in this encounter Care Teams Proofer Prepress Relationship Specialty Start Date End Date Zev Sanders MD [address] [place] [address] PCP - General Internal Medicine 11/16/19 documented as of this encounter
--- OUTSIDE RECORDS SUMMARY | 2024-08-12 15:04 | XMS_ITS | Encounter Summary ---
Author Organization [employer] Address [address] [facility] 7t [place] [address] Care Team Providers Care Hse Manager Name Role Phone Zev Sanders MD Primary Care Provider [phone] Encounter Details Date Type Department Care Team ([facility] st Contact Info) Description 07/21/2023 Orders Only [facility] CHC MED & PEDS [address] [place], [place] [phone] Zev Sanders MD [address] [place] [address] Social History Tobacco Use Types Packs/Day Years [...] on filedocumented in this encounter Care Teams Hse Manager Relationship Specialty Start Date End Date Zev Sanders MD [address] [place] [address] PCP - General Internal Medicine 11/16/19 documented as of this encounter
--- OUTSIDE RECORDS SUMMARY | 2024-08-12 15:04 | XMS_ITS | Encounter Summary ---
Author Organization [employer] Address [address] [place] [address] 7 [place] [address] Care Team Providers Care Earth Science Faculty Member Name Role Phone Zev Sanders MD Primary Care Provider [phone] Reason for Visit * Reason Comments Med Refill Encounter Details Date Type Department Care Team ([facility] st Contact Info) Description 11/05/2022 Refill [facility] CHC MED & PEDS [address] [place], [place] [phone] Zev Sanders MD [address] [place] [address] Chronic low back pain, unspecified back pain [...] present documented in this encounter Care Teams Earth Science Faculty Member Relationship Specialty Start Date End Date Zev Sanders MD [address] [place] [address] PCP - General Internal Medicine 11/16/19 documented as of this encounter
--- OUTSIDE RECORDS SUMMARY | 2024-08-12 15:04 | XMS_ITS | Encounter Summary ---
Author Organization [employer] Address [address] [facility] 7 [place] [address] Care Team Providers Care Plant Engineer Name Role Phone Zev Sanders MD Primary Care Provider [phone] Reason for Visit * Reason Comments Care Coordination C3/CM Outreach Encounter Details Date Type Department Care Team (Latest Contact Info) Description 08/10/2024 Patient Outreach [facility] MED & PEDS [address] [place], [place] [phone] Zev Sanders MD 505 [place] [address] Care Coordination (C3/CM Outreach) Social History Tobacco [...] documented as of this encounter Care Teams Plant Engineer Relationship Specialty Start Date End Date Zev Sanders MD [address] [place] [address] PCP - General Internal Medicine 11/16/19 documented as of this encounter
--- OUTSIDE RECORDS SUMMARY | 2024-08-12 15:04 | XMS_ITS | Encounter Summary ---
Author Organization [employer] Address [address] [place] [address] 7t [place] [address] Care Team Providers Care Cinder Dump Crane Operator Name Role Phone Zev Sanders MD Primary Care Provider [phone] Encounter Details Date Type Department Care Team ([facility] st Contact Info) Description 10/22/2022 Orders Only [facility] CHC MED & PEDS [address] [place], [place] [phone] Zev Sanders MD [address] [place] [address] Gastroenteritis (Primary Dx) Social History Tobacco Use [...] colitis documented in this encounter Care Teams Cinder Dump Crane Operator Relationship Specialty Start Date End Date Zev Sanders MD [address] [place] [address] PCP - General Internal Medicine 11/16/19 documented as of this encounter
--- OUTSIDE RECORDS SUMMARY | 2024-08-12 15:04 | XMS_ITS ---
Author Organization [employer] Address [address] [place] [address] 7t [place] [address] Care Team Providers Care Senior Qualitative Researcher Name Role Phone Zev Sanders MD Primary Care Provider [phone] CM Complex Status:Closed (Closed) Start date:06/21/2024 Enrollment reason:ADT Feed End date:08/10/2024 Close reason:Cannot Reach Overview ED_ Pt went to [facility] ED on 06/19/24. . Continued Care and Services Coordination
--- OUTSIDE RECORDS SUMMARY | 2024-08-12 15:04 | XMS_ITS | Encounter Summary ---
Author Organization [employer] Address [address] [facility] 7 [place] [address] Care Team Providers Care Car Ferry Master Name Role Phone Zev Sanders MD Primary Care Provider [phone] Reason for Visit * Reason Onset Date Comments No Show 08/10/2024 Encounter Details Date Type Department Care Team ([facility] Contact Info) Description 08/10/2024 Telephone [facility] CHC MED & PEDS [address] [place], [place] [phone] Zev Sanders MD [address] [place] [address] No Show Social History Tobacco Use Types [...] documented as of this encounter Care Teams Car Ferry Master Relationship Specialty Start Date End Date Zev Sanders MD [address] [place] [phone] PCP - General Internal Medicine 11/16/19 documented as of this encounter
--- OUTSIDE RECORDS SUMMARY | 2024-08-12 15:04 | XMS_ITS | Clinical Summary ---
Author Organization [employer] Address [address] [place] [address] [address] [place] [address] Care Team Providers Care Store Mgr Name Role Phone Zev Sanders MD Primary Care Provider [phone] Allergies No known active allergies Medications tiotropium (Spiriva Respimat) 2.5 MCG/ACT inhalerIndicat ions:COPD (chronic obstructive pulmonary disease) case management patient ([facility]) INHALE TWO PUFF BY MOUTH EVERY MORNING [...] Type Department Care Team Description 08/10/2024 Telephone [facility] [address] [place] [address] Zev Sanders MD No Show 08/10/2024 Patient Outreach [facility] [address] [place] [address] Zev Sanders MD Care Coordination (C3/CM Outreach) 08/05/2024 Refill [facility] [address] [place] [address] Zev Sanders MD Chronic low back pain, unspecified back pain laterality, unspecified whether sciatica present 07/23/2024 Patient Outreach [address] [address] Zev Sanders MD Care Coordination (C3/CM Outreach) 07/23/2024 Patient Outreach [facility] [address] [place] [address] Zev Sanders MD 07/13/2024 Patient Outreach [address] [address] Zev Sanders MD Care Coordination (C3/CM Outreach) 07/08/2024 Patient Outreach [address] [address] Zev Sanders MD Care Coordination (C3/CM Outreach) 07/08/2024 Refill [facility] [address] [place] [address] Zev Sanders MD 07/07/2024 Refill [facility] [address] [place] [address] Zev Sanders MD Chronic low back pain, unspecified back pain laterality, unspecified whether sciatica present 07/02/2024 Patient Outreach [address] [address] Zev Sanders MD Care Coordination (C3/CM Outreach) 06/30/2024 Orders Only GENERIC EXTERNAL DATA DEPARTMENT Provider, Generic External Data 06/30/[address] [address] Zev Sanders MD Calderon 06/25/2024 Patient Outreach [address] [address] Zev Sanders MD Care Coordination (C3/CM Outreach) 06/21/2024 Patient Outreach [address] [address] Zev Sanders MD Care Coordination (C3/CM Outreach) 06/21/2024 Patient Outreach [facility] [address] [place] [address] Zev Sanders MD 06/21/2024 Patient Outreach [facility] [address] [place] [address] Zev Sanders MD Transition Of Care (Tcm) 06/21/2024 Patient Outreach [facility] [address] [place] [address] Zev Sanders MD Care Coordination (C3CM chart review) 06/21/2024 Patient Outreach [address] [address] Zev Sanders MD 06/19/2024 Orders Only GENERIC EXTERNAL DATA DEPARTMENT Provider, Generic External Data 06/11/2024 Population Health Risk Score [facility] (C3) Department [address] [place] [phone] Provider, Population Health Generic 06/01/2024 Refill [facility] [address] [place] [address] Zev Sanders MD Chronic low back pain, unspecified back pain laterality, unspecified whether sciatica present 05/25/2024 Refill [facility] [address] [place] [address] Zev Sanders MD from Last 3 Months [...] PM EDT) Influenza A PCR NEGATIVE Negative [facility] Influenza B PCR NEGATIVE Negative [facility] Resp Syncy Virus RNA Qual PCR NEGATIVE Negative [facility] SARS COV2 PCR NEGATIVE Negative [facility] Comment:All test results mus t [...] use by authorized laboratories.Testing performed on the [employer] GeneXpert utilizingreal-time RT-PCR.All SARS CoV2 and positive influenza A/B results arereported to [facility]. 06/30/2024 2:58 PM EDT 06/30/2024 3:03 PM EDT us Generic External Data Provider LAB MICROBIOLOGY - GENERAL ORDERABLES Final Result [facility] [address] [place] [phone] * XR Chest 1 View (06/30/2024 11:40 AM EDT) Anatomical Region Laterality Modality Chest Radiographic Joy ging 06/30/2024 11:4 0 AM EDT Narrative 06/30/2024 12:45 PM EDT ? [facility] ?[address] ?[place] [address] ?XRay Report ? Signed ? Patient: Delvalle Izquierdo,Deysi D ?MR#: ?? [id number] ? : 1970 ?Acct:[id number] ? Age/Sex: 54 / F ?ADM Date: 06/30/24 ? Loc: HO.ED ? Attending Dr: ? Ordering Physician: Demetrius Valdivia MD ?? Date of Service: 06/30/24 ?? Procedure(s): XR chest 1V ?? Accession Number(s): [id number] ? cc: Zev Sanders MD; Demetrius Valdivia [...] DD/ 1140 ? TD/TT: 06/30/24 1226 ? Hand Alterations Tailor: ? Procedure Note Travis Griffin - 06/30/[address] [address] XRay Report Signed Patient: Deysi Pfeiffer DMR#: [id number] : 1970Acct:[id number] Age/Sex: 54 / FADM Date: 06/30/24 Loc: HO.ED Attending Dr: Ordering Physician: Demetrius Valdivia MD Date of Service: 06/30/24 Procedure(s): XR chest 1V Accession Number(s): [id number] cc: Zev Sanders MD; Demetrius Valdivia MD [...] 06/30/24 1242 DD/ 1140 TD/TT: 06/30/24 1226 Hand Alterations Tailor: [facility] External Provider IMG XR PROCEDURES Edited Result - Final * CT Abdomen Pelvis w/ Contrast (06/19/2024 4:58 PM EDT) Anatomical Region Laterality Modality Body, Pelvis, Abdomen Computed T omography 06/19/2024 4:58 PM EDT Narrative 06/19/2024 4:59 PM EDT ? [facility] ?[address] ?[place] [address] ? CT Scan Report ? Signed ? Patient: Deysi Pfeiffer D ?MR#: ?? [id number] ? : 1970 ?Acct:[id number] ? Age/Sex: 54 / F ?ADM Date: 03/22/25 ? Loc: HO.ED ? Attending Dr: ? Ordering Physician: Ace Briones ?? Date of Service: 06/19/24 ?? Procedure(s): CT abdomen pelvis w IV con ?? Accession Number(s): [id number] ? cc: Zev Sanders MD; Ace Briones ? Report Number: ?? [id number]: Total DLP = ??366.25 mGy-cm ? CLINICAL [...] ? DD/ 1658 ? TD/TT: 06/19/248 ? Hand Alterations Tailor: ? Procedure Note Elias, Image - 06/19/[address] [place] [address] [address] Scan Report Signed Patient: Deysi Pfeiffer DMR#: [id number] : 1970Acct:[id number] Age/Sex: 54 / FADM Date: 06/19/24 Loc: HO.ED Attending Dr: Ordering Physician: Ace Briones Date of Service: 06/19/24 Procedure(s): CT abdomen pelvis w IV con Accession Number(s): [id number] cc: Zev Sanders MD; Ace Briones Report Number: [id number]: Total DLP = 366.25 mGy-cm CLINICAL HISTORY: [...] in OV> 06/19/241658 DD/ 57 TD/TT: 06/19/241657 Hand Alterations Tailor: [facility] External Provider IMG CT PROCEDURES Edited Result - Final * CTA Chest PE Protocal (06/19/2024 4:55 PM EDT) Anatomical Region Laterality Modality Body, Chest Computed Tomogra phy 06/19/2024 4:55 PM EDT Narrative 06/19/2024 4:57 PM EDT ? [facility] ?[address] ?[place] [address] ? CT Scan Report ? Signed ? Patient: Delvalle Timbo,Deysi D ?MR#: ?? [id number] ? : 1970 ?Acct:[id number] ? Age/Sex: 54 / F ?ADM Date: 06/19/25 ? Loc: HO.ED ? Attending Dr: ? Ordering Physician: cAe Briones ?? Date of Service: 06/19/24 ?? Procedure(s): CT angio chest PE protocol ?? Accession Number(s): [id number] ? cc: Zev Sanders MD; Ace Briones ? Report Number: ?? [id number]: Total DLP = ??166.75 mGy-cm ? CLINICAL [...] ? DD/ 1655 ? TD/TT: 06/19/245 ? Hand Alterations Tailor: ? Procedure Note Elias, Image - 06/19/[address] [place] [address] [address] Scan Report Signed Patient: Deysi Pfeiffer DMR#: [id number] : 1970Acct:[id number] Age/Sex: 54 / FADM Date: 06/19/24 Loc: HO.ED Attending Dr: Ordering Physician: Ace Briones Date of Service: 06/19/24 Procedure(s): CT angio chest PE protocol Accession Number(s): [id number] cc: Zev Sanders MD; Ace Briones Report Number: [id number]: Total DLP = 166.75 mGy-cm CLINICAL HISTORY: [...] in OV> 06/19/241655 DD/ 54 TD/TT: 06/19/241654 Hand Alterations Tailor: [facility] External Provider IMG CT PROCEDURES Edited Result - Final * CT Head w/o Contrast (06/19/2024 4:50 PM EDT) Anatomical Region Laterality Modality Head, Neck Computed Tomogra phy 06/19/2024 4:50 PM EDT Narrative 06/19/2024 4:52 PM EDT ? [facility] ?[address] ?[place] [address] ? CT Scan Report ? Signed ? Patient: Deysi Pfeiffer D ?MR#: ?? [id number] ? : 1970 ?Acct:[id number] ? Age/Sex: 54 / F ?ADM Date: 06/19/24 ? Loc: HO.ED ? Attending Dr: ? Ordering Physician: Ace Briones ?? Date of Service: 06/19/24 ?? Procedure(s): CT head/brain wo IV con ?? Accession Number(s): [id number] ? cc: Zev Sanders MD; Ace Briones ? Report Number: ?? [id number]: Total DLP = ??666.00 mGy-cm ? CLINICAL [...] DD/ 1650 ? TD/TT: 06/19/24 1650 ? Hand Alterations Tailor: ? Procedure Note Donediliater, Image - 06/19/[address] [place] [address] [address] Scan Report Signed Patient: Deysi Pfeiffer DMR#: [id number] : 1970Acct:[id number] Age/Sex: 54 / FADM Date: 06/19/24 Loc: HO.ED Attending Dr: Ordering Physician: Ace Briones Date of Service: 06/19/24 Procedure(s): CT head/brain wo IV con Accession Number(s): [id number] cc: Zev Sanders MD; Ace Briones Report Number: [id number]: Total DLP = 666.00 mGy-cm CLINICAL HISTORY: [...] 06/19/24 1651 DD/ 49 TD/TT: 03/22/25 1650 Hand Alterations Tailor: [facility] External Provider IMG CT PROCEDURES Edited Result - Final * (ABNORMAL) Urinalysis w/reflex microscopic (06/19/2024 4:26 PM EDT) Color Urine Yellow [facility] Appearance Urine Clear [facility] PH 5.5 5.0 - 9.0 [facility] Glucose Urine UA Negative Negative mg/dL [facility] Urine Blood Negative Negative [facility] Specific [place] - Urine >=1.030(H) 1.005 - 1.025 [facility] Urine Protein Negative Neg-Trace mg/dL [facility] Urine Ketones 15 Negative mg/dL [facility] Nitrite Urine Negative Negative [facility] Leukocyte Esterase Urine Negative Negative [facility] 06/19/2024 4:26 PM EDT 06/19/2024 4:28 PM EDT Narrative [facility] - 06/19/2024 4:39 PM EDT [id number], Clean [employer] Generic External Data Provider LAB URINE ORDERAB LES Final Result Performing Organization Address [facility]/ZIP Co de Phone Number [facility] [address] [place] [phone] * Blood Culture (Second) (06/19/2024 12:40 PM EDT) Blood Venous blood specimen / Unknown 06/19/2024 12:40 PM EDT 06/19/2024 12:44 PM EDT Comment:Blood Narrative [facility] - 06/24/2024 2:44 PM EDT Blood Culture (Second) No growth after 5 days. Specimen Source: Blood Generic External Data Provider LAB MICROBIOLOGY - GENERAL ORDERABLES Final Result Performing Organization Address City/[facility]/ZIP Co de Phone Number [facility] [address] [place] [phone] * Lactic Acid (06/19/2024 12:40 PM EDT) Lactic Acid 0.9 0.5 - 2.0 mmol/L [facility] 06/19/2024 12:4 0 PM EDT 06/19/2024 12:44 PM EDT Generic External Data Provider LAB BLOOD ORDERAB LES Final Result Performing Organization Address [facility] Co de Phone Number [facility] [address] [place] [phone] * Blood Culture (First) (06/19/2024 12:37 PM EDT) Blood Venous blood specimen / Unknown 06/19/2024 12:37 PM EDT 06/19/2024 12:40 PM EDT Comment:Blood Narrative [facility] - 06/24/2024 2:41 PM EDT Blood Culture (First) No growth after 5 days. Specimen Source: Blood Generic External Data Provider LAB MICROBIOLOGY - GENERAL ORDERABLES Final Result Performing Organization Address [facility] Co de Phone Number [facility] [address] [place] [phone] * Cologuard?? colon cancer screening (03/10/2023 2:14 PM EST) Cologuard Result Negative Negative 03/21/20 1:56 AM EST [facility] (CLIA #:[id number]) Comment: NEGATIVE TEST RESULT. A negative Cologuard [...] cancer. ??Following a negative Cologuard result, the [place] [employer] Society and U.S. Multi-Society Task Force screening guidelines recommend a Cologuard re-screening interval of 3 years. References: [place] [employer] Guideline for Colorectal Cancer Screening: https://www.cancer.org/cancer/inopz-vfkysy-hvmxcb/vzpwgxfsf-mxmlfnwsu-qecvqbj/ac s-rec ommendations.html.; Edgar DK, Antonio STONE, Salma CorderoK, Colorectal Cancer Screening: Recommendations for Physicians and Patients from the U.S. Multi-Society Task Force on Colorectal Cancer Screening , Am J Gastroenterology 2017; 112:2006-5974. TEST DESCRIPTION: Composite algorithmic analysis of stool [...] (Jorge Luis Polanco, N Engl J Med 2014;370(14):4126-4544.) Cologuard may produce a false negative or false positive result (no colorectal cancer or precancerous polyp present at colonoscopy follow up). A negative Cologuard test result does not guarantee the absence of CRC or advanced adenoma (pre-cancer). The current Cologuard screening interval is every 3 years. ([place] [employer] Society and U.S. Multi-Society Task Force). Cologuard performance data in a 10,000 patient pivotal study using colonoscopy as the reference method can be accessed at the following location: www.[employer]/results. Additional description of the Cologuard test process, warnings and precautions can be found at www.cologuard.com. Stool specimen (specimen) 03/10/2023 2:14 PM EST 03/12/2023 8:29 PM EST us Zev Sanders MD LAB MOLECULAR DIAGNOSTICS O RDERABLES Final Result [facility] (CLIA #:[id number]) [address] [place] [address], * HPV E6/E7 RFLX VANNESSA 16 18/45 (01/15/2022 10:19 AM EDT) HPV mRNA E6/E7 rflx Not Detected Not Detected [facility] Comment: Methodology: Micro Lab Analyst-Mediated Amplification This assay detects E6/E7 viral messenger RNA (mRNA) from 14 high-risk HPV types (16,18,31,33,35,39,45,51,52,56,58,59,66,68). Cervical sources are required for HPV testing. If a vaginal source from a patient who has had a total hysterectomy with removal of cervix was submitted, please contact the testing laboratory for alternative testing options. For additional information, please refer to http://education.[employer]/faq/BLY166l6 (This link if provided for information/ educational purposes only.) THIS TEST WAS PERFORMED AT: [facility] [address] [place] [address],[address] [place], [place] ??[phone] ESPERANZA CRUZ MD 01/15/2022 10:1 9 AM EDT Mario Alberto Morgan MD HISTORICAL/NON ORDERABLE LABS Fi nal Result [facility] * Hm Pap Smear (01/15/2022) Historical Provider HEALTH MAINTENANCE Final Result * HEPATITIS C AB W/REFL TO HCV RNA, QN, PCR (11/12/2021 12:09 PM EDT) Pathologist [facility] HEPATITIS C ANTIBODY NON-REACT JOSE MANUEL NON-REACT JOSE MANUEL [facility] INDEX 0.09 <1.00 [facility] Comment: ?? HCV antibody was non-reactive. There is no laboratory ?? evidence of HCV infection. ?? In most cases, no further action is required. However, if recent HCV exposure is suspected, a test for HCV RNA (test code 77960) is suggested. ?? For additional information please refer to http://education.P[employer]a/faq/KMH24t3 (This link is being provided for informational/ educational purposes only.) ?? 11/12/2021 12:0 9 PM EDT Zev Sanders MD HISTORICAL/NON ORDERABLE LA BS Final Result Performing Organization Address City/[facility]/ZIP Co de Phone Number [facility] [address] * (ABNORMAL) LIPID PANEL, STANDARD (11/12/2021 12:09 PM EDT) Pathologist [facility] Chol/HDLC Ratio 3.3 <5.0 (calc) [facility] [...] ?? Hilario SS et al. JUANA. 2013;310(19): 3213-3498 ?? (http://Peach.[employer]/faq/TJA193) Non-HDL Cholesterol 129 <130 mg/dL (calc) [facility] Comment: For patients with diabetes plus 1 major ASCVD risk ?? factor, treating to a non-HDL-C goal of <100 mg/dL ?? (LDL-C of <70 mg/dL) is considered a therapeutic ?? option. Triglycerides 120 <150 mg/dL [facility] 11/12/2021 12:0 9 PM EDT us Zev Sanders MD LAB BLOOD ORDERABLES Final Result [facility] [address] * Mammography Report 1 (10/17/2021 2:30 [...] Most Recently Relevant to Health Maintenance Insurance [employer] C3 Care Teams Store Mgr Relationship Specialty Start Date End Date Zev Sanders MD [address] [place] [phone] PCP - General Internal Medicine 11/16/19
--- OUTSIDE RECORDS SUMMARY | 2024-08-12 15:04 | XMS_ITS | Encounter Summary ---
Author Organization [employer] Address [address] [facility] 7[address] [place] [address] Care Team Providers Care Fashion Consultant Sales Name Role Phone Zev Sanders MD Primary Care Provider [phone] Encounter Details Date Type Department Care Team ([facility] st Contact Info) Description 04/12/2022 Orders Only [facility] [address] [place] [address] Zev Sanders MD [address] [place], [place] [phone] Social History Tobacco Use Types Packs/Day Years [...] (10/21/2022 2:13 PM EDT) Slide Review VERIFIED [facility] 10/21/2022 2:13 PM EDT 10/21/2022 5:23 PM EDT us Zev Sanders MD LAB BLOOD ORDERABLES Final Result [facility] [address] [place] [phone] * (ABNORMAL) VENOUS BLOOD GAS (09/04/2022 1:17 PM EDT) VBG pH 7.37 7.32 - 7.43 [facility] Comment:METER #: [id number] additional_comment: Cb murpe VBG PCO2 57 mmHg [facility] Comment:METER #: [id number] additional_comment: Cb murpe VBG PO2 48 mmHg [facility] Comment:METER #: [id number] additional_comment: Cb murpe VBG Base Excess 6.2 mmol/L [facility] Comment:METER #: [id number] additional_comment: Cb murpe VBG HCO3 33(H) 22 - 26 mmol/L [facility] Comment:METER #: [id number] additional_comment: Cb murpe O2 Sat, Lefty 77.0 % [facility] Comment:METER #: [id number] additional_comment: Cb murpe 09/04/2022 1:17 PM EDT 09/04/2022 1:23 PM EDT [facility] External Provider LAB BLO OD ORDERABLES Final Result Performing Organization Address [facility] [address] [place] [phone] * D Dimer High Sensitivity (09/04/2022 1:10 PM EDT) D Dimer High Sensitivity <150 NG/ML [facility] Comment:D-DIMER HS REFERENCE RANGENote: Our assay reports D-Dimer Units (D- DU).The cut-off value for venous thromboembolic (VTE) disease is230 ng/mL. This value has a very high negative predictivevalue when the patient has a low to moderate clinicalprobability of VTE.The upper limit of normal is 243 ng/mL. 09/04/2022 1:10 PM EDT 09/04/2022 1:18 PM EDT [facility] External Provider LAB BLO OD ORDERABLES Final Result Performing Organization Address [facility] [address] [place] [phone] * B Type Natriuretic Peptide (BNP) (09/04/2022 11:26 AM EDT) B Type Natriuretic Peptide 19 <100 pg/mL [facility] Comment:For those patients w ho are being treated with Natrecor(nesiritide, recombinant BNP), BNP testing should beperformed at least two hours post treatment in order toensure that only endogenous levels of BNP are detected. 09/04/2022 11:2 6 AM EDT 09/04/2022 1:27 PM EDT us [facility] External Provider LAB BLO OD ORDERABLES Final Result [facility] [address] [place] [address] [phone] * (ABNORMAL) Comprehensive Metabolic Panel (09/04/2022 11:26 AM EDT) Sodium 142 135 - 145 mmol/L [facility] Potassium 4.2 3.3 - 5.1 mmol/L [facility] Chloride 102 96 - 108 mmol/L [facility] Carbon Dioxide 34(H) 22 - 29 mmol/L [facility] Anion Gap 10(L) 12 - 20 [facility] Urea Nitrogen (BUN) 15 9 - 16 mg/dL [facility] Creatinine, Serum 0.68 0.5 - 1.4 mg/dL [facility] Creatinine Clr Calc Pharmacy 74.8 [facility] Comment:Provided height and weight: 162.56 cm,49 kg.eGFR (calculated from the MDRD study equation) and eCrCl(calculated from the Cockcroft-Gault equation) are based ondifferent parameters and may not yield comparable results.If eCrCl result is absurd, please check patient'sheight/weight. Estimated Glomerular Filt Rate >60 [facility] Comment:NOTE: For -Am erican individuals, multiply the result by 1.210.Chronic Kidney Disease: Estimated GFR < 60 mL/min/1.94m8Srbixi Kidney Disease: Estimated GFR < 15 mL/min/1.73m2 Glucose 112 60 - 115 mg/dL [facility] Calcium 9.4 8.4 - 10.2 mg/dL [facility] Bilirubin, Total 0.7 0.0 - 1.0 mg/dL [facility] Aspartate Amino Transferase 21 5 - 31 U/L [facility] Alanine Aminotransferase 17 0 - 31 U/L [facility] Total Protein 6.7 6.5 - 8.0 g/dL [facility] Albumin Level 4.1 3.5 - 5.0 g/dL [facility] Alkaline Phosphatase 73 39 - 117 U/L [facility] 09/04/2022 11:2 6 AM EDT 09/04/2022 11:33 AM EDT [facility] External Provider LAB BLO OD ORDERABLES Final Result [facility] [address] [place] [address] [phone] * COVID-19 ID NOW (ZAYAS) (09/04/2022 11:26 AM EDT) IDNOW SERIAL# [id number] [facility] COVID-19 TEST Negative Negative [facility] COVID-19 NOTE See Note [facility] Comment: Results are for the identification of SARS-CoV2 RNA. TheSARS-CoV2 RNA is generally detectable in respiratory samplesduring the acute phase of infection. Positive results areindicative of the presence of SARS-CoV-2 RNA; clinicalcorrelation with patient history and other diagnosticinformation is necessary to determine patient infectionstatus. Positive results do not rule out bacterial infectionor co- infection with other viruses.Testing facilities within the [facility] and itsterritories are required to report all [...] 6 AM EDT 09/04/2022 11:33 AM EDT [facility] Exter nal Provider LAB MOLECULAR DIAGNOSTICS ORDERABLES Final Result [facility] [address] [place], [place] [phone] * (ABNORMAL) CBC auto differential (09/04/2022 11:26 AM EDT) White Blood Count 10.4 4.8 - 10.8 X10*3/uL [facility] Red Blood Count 5.42 4.20 - 5.50 X10*6/uL [facility] Hemoglobin 16.0 12.0 - 16.0 g/dl [facility] Hematocrit 49.3(H) 37.0 - 47.0 % [facility] Mean Corpuscular Volume 91.0 80.0 - 98.0 fL [facility] Mean Corpuscular Hemoglobin 29.5 27.0 - 33.0 pg [facility] Mean Corpuscular HGB Conc 32.5 31.0 - 35.0 g/dl [facility] Red Cell Distribution Width 14.6 11.0 - 16.0 % [facility] Platelet Count 238 160 - 400 X10*3/uL [facility] Mean Platelet Volume 9.5 9.4 - 12.3 fL [facility] Neutrophils Percent Auto 51.2 45 - 73 % [facility] Imm Gran Pct Auto 0.3 0.0 - 0.4 % [facility] Lymphocytes Percent Auto 38.4 20 - 40 % [facility] Monocytes Percent Auto 8.1 2 - 11 % [facility] Eosinophils Percent Auto 1.5 0 - 4 % [facility] Basophils Percent Auto 0.5 0 - 2 % [facility] NRBC Pct Auto 0.0 0.0 - 0.2 /100WBC [facility] Neutrophils Absolute Auto 5.4 2.0 - 8.3 x10*3/uL [facility] Imm Gran Abs Auto 0.03 0.00 - 0.03 X10*3/uL [facility] Lymphocytes Absolute Auto 4.0 1.2 - 4.9 X10*3/uL [facility] Monocytes Absolute Auto 0.8 0.1 - 1.2 X10*3/uL [facility] Eosinophils Absolute Auto 0.2 0.0 - 0.4 X10*3/uL [facility] Basophils Absolute Auto 0.1 0.0 - 0.2 X10*3/uL [facility] NRBC Abs Auto 0.000 0.0 - 0.012 X10*3/uL [facility] 09/04/2022 11:2 6 AM EDT 09/04/2022 11:33 AM EDT us [facility] External Provider LAB BLO OD ORDERABLES Final Result Performing Organization Address City/State/[facility] Co de Phone Number [facility] [address] [place] [phone] documented in this encounter Visit Diagnoses Not on filedocumented in this encounter Care Teams Fashion Consultant Sales Relationship Specialty Start Date End Date Zev Sanders MD [address] [place] [phone] PCP - General Internal Medicine 11/16/19 documented as of this encounter
--- OUTSIDE RECORDS SUMMARY | 2024-08-12 15:04 | XMS_ITS ---
Author Organization [employer] Address [address] [place] [address] 7 [place] [address] Care Team Providers Care Stock Letterer Name Role Phone Zev Sanders MD Primary Care Provider [phone] [facility] Complex Status:Closed (Closed) Start date:06/21/2024 Enrollment reason:ADT Feed End date:08/10/2024 Close reason:Cannot Reach Overview ED_ [place] [facility] [place]. . Continued Care and Services Coordination
--- OUTSIDE RECORDS SUMMARY | 2024-08-12 15:04 | XMS_ITS | Encounter Summary ---
Author Organization [employer] Address [address] [place] [address] [address] [place] [address] Care Team Providers Care Talent Acquisition Program Manager Name Role Phone Zev Sanders MD Primary Care Provider [phone] Reason for Visit * Reason Onset Date Comments Appointment Request 11/01/2022 Encounter Details Date Type Department Care Team ([facility] st Contact Info) Description 11/01/2022 Telephone [facility] [address] [place], [place] [phone] Zev Sanders MD [address] [place] [address] Appointment Request Social History Tobacco Use Types [...] PE on 10/24/2022. Please contact pt at [phone] documented in this encounter Plan of Treatment Not on file documented as of this encounter Visit Diagnoses Not on filedocumented in this encounter Care Teams Talent Acquisition Program Manager Relationship Specialty Start Date End Date Zev Sanders MD [address] [place] [phone] PCP - General Internal Medicine 11/16/19 documented as of this encounter
--- OUTSIDE RECORDS SUMMARY | 2024-08-12 15:04 | XMS_ITS | Encounter Summary ---
Author Organization [employer] Address [address] [facility] 7t [place] [address] Care Team Providers Care Rehabilitation Director Name Role Phone Zev Sanders MD Primary Care Provider [phone] Encounter Details Date Type Department Care Team (Late st Contact Info) Description 12/24/2022 Orders Only [facility] [address] [place] [address] Provider, MD Josh Social History Tobacco Use [...] on filedocumented in this encounter Care Teams Rehabilitation Director Relationship Specialty Start Date End Date Zev Sanders MD [address] [place] [address] PCP - General Internal Medicine 11/16/19 documented as of this encounter
--- NOTE | 2024-08-12 15:23 | A.OFFVIS_ITS ---
Vital Signs 08/12/24 15:24 Height 5 ft 4 in Weight 120 lb 2.431 oz BMI 20.6 BP 92/60 Blood Pressure Location Lt brachial Position Sitting Pulse 78 Pulse Source Pulse Oximeter Pulse Oximetry (%) 97 Oxygen Delivery Method Nasal Cannula Oxygen Flow Rate 3 Intake Visit Reasons: COPD Intake Note: pt is here for follow up and would like a transport chair for appointments, grocery shopping and buddhism services, when walking she gets tired very easily. Training And Development Director Required: No Allergies Penicillins [PENICILLINS] Allergy (Severe, Verified 08/12/24 16:44) RASH seafood Allergy (Verified 08/12/24 16:44) Rash Medication List - Last Reconciled 08/12/24 by Erickson Mathews MD albuterol sulfate 90 mcg/actuation (Ventolin HFA) 2 puffs inhalation QID PRN budesonide-formoterol 160-4.5 mcg/actuation (Symbicort) 2 puffs inhalation BID cholecalciferol (vitamin D3) 50 mcg PO DAILY esomeprazole magnesium 40 mg PO BEDTIME ibuprofen 600 mg PO Q8H PRN ipratropium-albuterol 0.5 mg-3 mg(2.5 mg base)/3 mL 3 mL inhalation Q6-8H PRN lisinopril 10 mg PO DAILY mirtazapine 45 mg PO BEDTIME montelukast 10 mg PO BEDTIME naloxone 4 mg/actuation (Narcan) 4 mg intranasal Q2M PRN oxycodone 5 mg PO TID PRN 30 days prednisone 5 mg PO DAILY pregabalin 150 mg PO BID quetiapine (Seroquel) 100 mg PO BEDTIME tiotropium bromide 2.5 mcg/actuation (Spiriva Respimat) 2 puffs inhalation DAILY Do you need a note to return to daycare/school/sports/work: No HPI HPI COPD: Details: THIS 54 YEARS OLD FEMALE A CASE OF ADVANCED CHRONIC OBSTRUCTIVE PULMONARY DISEASE, COMES FOR FOLLOW-UP. HER LAST OFFICE VISIT WAS IN MARCH 2024. THEN SHE WAS ADMITTED IN [facility] IN JUNE 2024 FOR ACUTE EXACERBATION. SHE COMES TODAY FOR FOLLOW-UP. CONTINUES TO USE OXYGEN ALMOST 24 HOURS A DAY WITH SOME BREAKS DURING THE DAYTIME CLAIMS THAT HER BREATHING IS STABLE EXPECTED. DENIES ANY ACTIVE COUGH OR EXPECTORATION. DENIES ANY CHEST PAIN OR WHEEZING. SHE REMAINS VERY WEAK IN GENERAL SHE WALKS AROUND WITH WHEELED WALKER . SHE WANTS TO HAVE A TRANSPORT CHAIR FOR GOING OUTDOORS FOR HER APPOINTMENTS AND TO GO TO THE GROCERY STORES AT [facility] Medical History Current non-smoker but past smoking history unknown Respiratory failure with hypoxia COPD exacerbation Pre-op examination History of OCD (obsessive compulsive disorder) History of panic attacks Anxiety and depression Radiculopathy, lumbar region HTN (hypertension) Sacroiliitis COPD (chronic obstructive pulmonary disease) Asthma Allergic rhinitis Disc degeneration, lumbar Surgical History History of surgery History of appendectomy Hx of tonsillectomy Status post excision of lipoma History of tubal ligation Hx of excision of mass History of surgery History of laparoscopic cholecystectomy History of esophagogastroduodenoscopy (EGD) History of umbilical hernia repair History of incision and drainage Family History Family/Other Cervical cancer Family/Other Stomach cancer Social History Household Members: Significant Other and Family Household Members Other:: grandson Housing: Apartment Do you presently have visiting nurse or other home services: No Alcohol intake: never Comment: Significant other bedside Patient Tobacco Use Status: Former Tobacco user Tobacco use type: Cigarette Substance Use Type: Marijuana Advance Directives Date on File: 04/09/24 service: No Current occupational status: unemployed Sexual orientation: Straight/Heterosexual Gender identity: Female Review of Systems Const All systems reviewed & are unremarkable except as noted in HPI and below Eyes Reports no additional complaints ENT Reports nasal congestion and Reports nasal discharge (OFF AND ON) Card Denies chest pain, Denies irregular heart rhythm and Denies leg edema Resp Reports as per HPI GI Reports no additional complaints Reports no additional complaints Musc Reports back pain and Reports arthralgias Skin/Breast Reports system reviewed and no additional complaints, except as documented Neuro Reports no additional complaints Psych Reports depression (Mild) Endo Reports no additional complaints Physical Exam Vital Signs: Last Vital Signs Pulse 78 08/12/24 15:24 BP 92/60 08/12/24 15:24 Pulse Ox 97 05/15/25 15:24 Oxygen Delivery Method Nasal Cannula 08/12/24 15:24 Oxygen Flow Rate 3 08/12/24 15:24 BMI result Body Mass Index 20.6 Const General: comfortable, no acute distress, alert and awake Orientation/consciousness: patient oriented x3 HEENT Head: Yes normal to inspection General nose exam: No nasal polyps present, No nasal discharge present and Other nasal findings present (Mild bilateral nasal congestion) Face and sinus: Yes sinuses nontender Mouth: oropharynx normal Throat: Yes posterior oropharynx normal Eyes General: appearance normal, both eyes and all related structures Neck Neck: Yes normal visual inspection, Yes no lymphadenopathy, Yes trachea midline and Yes no JVD Thyroid: Thyroid normal Chest Chest palpation & inspection: normal inspection of the chest, normal palpation of entire chest wall and no tenderness Resp Other: Percussion note is HYPER RESONANT , she does have good breath sounds on both sides but quite distant with prolonged expiratory phase. No audible wheezes or rhonchi heard. Cardio Palpation: normal PMI Rate: regular rate Rhythm: regular rhythm Heart sounds: no gallops and no murmurs Peripheral pulses: Peripheral pulses 2+ throughout GI Palpation (GI): Soft to palpation, nontender, No hepatosplenomegaly present and no masses Auscultation: normal bowel sounds Back/Spine/Pelvis Thoracic/Lumbar Spine: thoracic and lumbar spine normal to inspection and thoraco-lumbar ROM limited Skin General skin exam: no rashes or lesions noted Neuro General: patient oriented x3 and no focal motor deficits Cranial nerves: Yes CN's II-XII intact bilaterally Extrem General: Yes normal to inspection, Yes no clubbing, cyanosis or edema and Yes no calf tenderness Psych Appearance: grossly normal and well kempt Speech and movement: Normal speech and movement present Results Reviewed Results Reviewed: HOSPITAL RECORDS FOR HER ADMISSION ON 07/01 REVIEWED Assessment & Plan Assessment & Plan (1) Asthma: Comment: SHE HAS LIFELONG HISTORY OF BRONCHIAL ASTHMA, WHICH HAS NOW PHASED INTO CHRONIC OBSTRUCTIVE PULMONARY DISEASE. HER ASTHMA IS SECONDARY TO ENVIRONMENTAL ALLERGIES. SINCE SHE MOVED INTO AN APARTMENT WITH NO CARPETS AND HAS LESS DUST EXPOSURE, SHE REPORTS IMPROVEMENT IN SYMPTOMS. Code(s): J45.909 - Unspecified asthma, uncomplicated Category: Medical Plan: SEE UNDER COPD (2) COPD (chronic obstructive pulmonary disease): Comment: ASTHMA/COPD SEVERE. COPD IS DUE TO HER CHRONIC LIFELONG BRONCHIAL ASTHMA AND PAST HISTORY OF SMOKING. SHE IS PRONE TO HAVE FREQUENT ACUTE EXACERBATIONS. CLINICALLY DOING FAIRLY WELL AND IS STABLE AT THIS TIME. Code(s): J44.9 - Chronic obstructive pulmonary disease, unspecified Category: Medical Qualifiers: COPD type: COPD with acute exacerbation Qualified Code(s): J44.1 - Chronic obstructive pulmonary disease with (acute) exacerbation Plan: CONTINUE THE PRESENT THERAPY WHICH INCLUDES: SYMBICORT 160-4.52 PUFFS B.I.D. SPIRIVA RESPIMAT 2.5 MG 2 INHALATIONS DAILY ALBUTEROL HFA 2 PUFFS Q 4-6 HOURS P.R.N. IPRATROPIUM-ALBUTEROL SOLUTION 2.5 MG-0.5 MG ( 3 ML ) IN THE NEBULIZER Q 4-6 HOURS P.R.N. MONTELUKAST 10 MG DAILY (3) Respiratory failure with hypoxia: Comment: She was hypoxemic with minimal exertion. Has been started on O2 therapy. Feels stronger and better. USING O2 2 L/MINUTE 24 HOURS A DAY. HOWEVER WHEN RESTING AT HOME SHE COMES OF OXYGEN . FOR SHORT INTERVALS Code(s): J96.91 - Respiratory failure, unspecified with hypoxia Category: Medical Plan: CONTINUE TO USE THE OXYGEN (4) Current non-smoker but past smoking history unknown: Comment: PATIENT DOES HAVE LONGSTANDING HISTORY OF SMOKING. SHE QUIT COMPLETELY SINCE ABOUT 4 YEARS AGO. DOES NOT HAVE ANY URGE. TO GO BACK TO SMOKING Code(s): Z78.9 - Other specified health status Category: Social Hx Plan: ADVISE THAT SHE SHOULD CONTINUE TO BE IN THE ANNUAL LUNG SCREENING PROGRAM (5) Allergic rhinitis: Comment: SHE HAS CHRONIC, YEAR ROUND ALLERGIC RHINITIS. CURRENTLY IT IS UNDER CONTROL WITH HER MEDICATION REGIMEN. Code(s): J30.9 - Allergic rhinitis, unspecified Category: Medical Plan: MONTELUKAST 10 MG DAILY OTC ANTIHISTAMINICS PRN Plan SPECIAL NOTE : BECAUSE OF HER ADVANCED CHRONIC OBSTRUCTIVE PULMONARY DISEASE, CHRONIC BACK PAIN, AND GENERALIZED DECONDITIONING. SHE HAS MARKED IMPAIRMENT TO WALK AROUND. IN THE HOUSE SHE CAN WALK WITH HER WHEELED WALKER, WEARING THE OXYGEN. BUT FOR GOING OUTDOORS, SUCH SHOPPING AND APPOINTMENTS , SHE CAN NOT WALK WITH A WALKER SHE DOES NEED A LIGHTWEIGHT TRANSPORT CHAIR . THIS WILL ENABLE HER TO REMAIN ACTIVE AND GO OUTDOORS FOR DAY-TO-DAY NEEDS. Coding Level of Care Code Est Pt Level 4 (87933) Diagnoses Asthma J45.909 COPD (chronic obstructive pulmonary disease) J44.1 COPD type: COPD with acute exacerbation Respiratory failure with hypoxia J96.91 Current non-smoker but past smoking history unknown Z78.9 Allergic rhinitis J30.9
[2024-08-12 15:24] VITALS: BP 92/60; PULSE 78; O2SAT 97; BMI 20.6
== END 2024-08-12 15:43 | disposition home or self-care (01) ==
LOC: HO.HPS 14:28
PROVIDERS: PCP Internal Medicine; Visit Provider Internal Medicine
DX: J45.909 Unspecified asthma, uncomplicated (principal); J44.1 Chronic obstructive pulmonary disease with (acute) exacerbation; J96.91 Respiratory failure, unspecified with hypoxia; Z78.9 Other specified health status; J30.9 Allergic rhinitis, unspecified
CPT/HCPCS: 99214

== ENCOUNTER 2024-09-09 14:03 | Outpatient (AMB) | payer MEDICAID, SELFPAY ==
--- NOTE | 2024-09-09 14:05 | MHC.OFFVIS ---
Vital Signs 09/09/24 14:12 Height 5 ft 4 in Weight 120 lb BMI 20.6 BP 100/65 Blood Pressure Location Lt brachial Position Sitting Pulse 98 Pulse Source Pulse Oximeter Pulse Oximetry (%) 94 Oxygen Delivery Method Nasal Cannula Oxygen Flow Rate 4 Intake Visit Reasons: Pill count Intake Note: Deysi comes in today for a pill count to oxycodone, patient should have 69 tablets and presents with 73 tablets which she last took today 09/09/24 at 8am. Pain today [employer] Required: No Accompanied by: Family/Other Allergies Penicillins [PENICILLINS] Allergy (Severe, Verified 09/09/24 14:12) RASH seafood Allergy (Verified 09/09/24 14:12) Rash HPI Comments Details: Patient presents today for a pill count. She is supposed to have #69 pills in her possession and presents with #73 pills. This demonstrates a responsible attitude in regards to her opioid regimen. Patient reports reasonable analgesia on her current regime, except ongoing right ankle pain. Pain is rated at 6/10, mainly affecting her chronic neck and lower back areas with movements, walking or prolonged standing. She is in the process of obtaining wheelchair for outdoors and public ambulation and uses walker at home. Patient utilizes oxygen 2-3 L with rest or sitting and 4 L with ambulation. She is followed by [facility]. Patient denies any fever, chills, weight loss, abdominal or groin pain, constipation, urinary retention, sedation, nausea, vomiting, constipation, sedation, dizziness, or urinary retention. [facility] Medical History Current non-smoker but past smoking history unknown Respiratory failure with hypoxia COPD exacerbation Pre-op examination History of OCD (obsessive compulsive disorder) History of panic attacks Anxiety and depression Radiculopathy, lumbar region HTN (hypertension) Sacroiliitis COPD (chronic obstructive pulmonary disease) Asthma Allergic rhinitis Disc degeneration, lumbar Surgical History History of surgery History of appendectomy Hx of tonsillectomy Status post excision of lipoma History of tubal ligation Hx of excision of mass History of surgery History of laparoscopic cholecystectomy History of esophagogastroduodenoscopy (EGD) History of umbilical hernia repair History of incision and drainage Family History Family/Other Cervical cancer Family/Other Stomach cancer Social History Household Members: Significant Other and Family Household Members Other:: grandson Housing: Apartment Do you presently have visiting nurse or other home services: No Alcohol intake: never Comment: Significant other bedside Patient Tobacco Use Status: Former Tobacco user Tobacco use type: Cigarette Substance Use Type: Marijuana Advance Directives Date on File: 04/09/24 service: No Current occupational status: unemployed Sexual orientation: Straight/Heterosexual Gender identity: Female Review of Systems Const All systems reviewed & are unremarkable except as noted in HPI and below Physical Exam General: Appears afebrile. No acute distress. Alert and oriented. Mood and affect appropriate. Pleasant. Follows and participates in conversation appropriately. Respiratory effort is unlabored. No cough. O2 at 4L/min continuos. Able to transition from sit to stand unassisted. Ambulates with antalgic gait, mild limping. Psych Appearance: grossly normal and well kempt Mental Status: mental status grossly normal Speech and movement: Normal speech and movement present Affect: normal affect Attitude: cooperative Thought process: Normal thought process present Thought content: Normal thought content present, suicidality (none), no hallucinations and Depressive thoughts present Insight: Good insight present (Psych) Judgement: Good judgement present (Psych) Results Reviewed Results Reviewed: MRI LUMBAR SPINE WITHOUT CONTRAST EXAM DATE 05/07/2019 The marrow signal is within normal limits. Moderate disc space narrowing at L3-L4, severe loss of disc height L4-5 with endplate spurring mild endplate edema laterally on the right at L4-5. Mild rightward curvature of lumbar spine. No compression fractures. Trace anterior subluxation at L4-5. The paraspinal soft tissues appear normal. Bony pelvis is normal. Conus medullaris: Normal terminating at the level of L1. No level a spinal cord abnormalities. The cauda equina nerve roots are normal. Spinal levels: L1-L2: No disc pathology. No central canal stenosis or foraminal narrowing. L2-L3: Very mild disc bulge presents without central canal stenosis or foraminal encroachment. L3-L4: Moderate loss of disc height with large left foraminal disc extrusion! Severely compressing the exiting left L3 nerve root. Underlying mild disc bulge and mild facet arthropathy. No central canal stenosis. L4-5: Significant loss of disc height with broad-based disc bulge and right foraminal extraforaminal disc protrusion mildly distorting the exiting right L4 nerve root. Moderate facet arthropathy without central canal stenosis. L5-S1: Mild facet arthrosis no disc pathology: No central canal stenosis, or foraminal narrowing. XR SOFT TISSUE NECK 06/09/23 FINDINGS: Limited evaluation of the lower cervical spine secondary to patient positioning. No acute visible fracture or dislocation. Multilevel degenerative changes. Vertebral body heights and disc spaces are maintained. Prevertebral soft tissues unremarkable. Posterior elements are intact. Paraspinal soft tissues are unremarkable. Visualized portions of the upper chest are unremarkable. IMPRESSION: 1. Limited evaluation of the lower cervical spine secondary to patient positioning. 2. No acute visible fracture or dislocation. 3. Multilevel degenerative changes. CT/CT soft tissue neck w IV con 06/25/23 IMPRESSION: No cervical adenopathy or extra-mucosal soft tissue mass. Rightward curvature of the cervical spine with multilevel hypertrophic facet arthropathy. Mild amount of secretions in the tracheal airway which potentially would put the patient at risk for aspiration. Significant emphysematous changes in the lungs. XR ANKLE 3 OR MORE VIEWS RIGHT 05/14/24 HISTORY: pain COMPARISON: There are no prior studies available for comparison. FINDINGS: Three views of the right ankle are submitted. Osseous mineralization is normal. There is no fracture or dislocation. The joint spaces are preserved. The soft tissues are unremarkable. IMPRESSION: Unremarkable examination of the right ankle. Assessment & Plan Assessment & Plan (1) Opioid contract exists: Code(s): Z79.891 - [facility] (current) use of opiate analgesic Category: Medical (2) Cervicalgia: Code(s): M54.2 - Cervicalgia Category: Medical (3) Disc degeneration, lumbar: Code(s): M51.36 - Other intervertebral disc degeneration, lumbar region Category: Medical (4) Spondylosis of lumbar region without myelopathy or radiculopathy: Code(s): M47.816 - Spondylosis without myelopathy or radiculopathy, lumbar region Category: Medical (5) Chronic pain syndrome: Code(s): G89.4 - Chronic pain syndrome Category: Medical Plan Patient has shown accountability for her medication regimen and the pill count was accurate. Masspat was reviewed and without concerns. No obvious signs of diversion, abuse or misuse of the opioid medications. Patient reports reasonable analgesia on current medication regime. Prescription sent for Oxycodone 5mg po TID prn with an advanced date of 10/02/24. Patient has Narcan script at home. She also takes pregabalin 150 mg BID prescribed by her PCP. Patient to follow-up in the office in 4-5 weeks for pill count and sooner as needed. Medications: Refilled oxycodone Partial Fill upon patient request. 5 mg PO TID 30 days PRN 90 tabs 0RF pain M46.1 - Sacroiliitis, not elsewhere classified, M47.816 - Spondylosis without myelopathy or radiculopathy, lumbar region, M51.36 - Other intervertebral disc degeneration, lumbar region Coding Level of Care Code Est Pt Level 4 (27849) Complex EM visit Add On G2211 Diagnoses Opioid contract exists Z79.891 Cervicalgia M54.2 Disc degeneration, lumbar M51.36 Spondylosis of lumbar region without myelopathy or radiculopathy M47.816 Chronic pain syndrome G89.4
[2024-09-09 14:12] VITALS: BP 100/65; PULSE 98; O2SAT 94; BMI 20.6
--- OUTSIDE RECORDS SUMMARY | 2024-09-09 16:36 | XMS_ITS | Clinical Summary ---
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 60 capsule 08/06/19 25 025 Discontinued Active Problems Problem Noted Date Diagnosed Date Olecranon bursitis, right elbow 03/29/2022 Asthma-chronic obstructive p ulmonary disease overlap syndrome 12/19/2017 Chronic back pain 12/19/2017 Essential hypertension 12/19/2017 Menopausal symptom 12/19/2017 Migraine 12/19/2017 Mood disorder 12/19/2017 Seasonal allergies 12/19/2017 Tobacco dependence syndrome 12/19/2017 Encounters Date Type Department Care Team Description 09/06/2024 Refill [facility] [address] [place] [address] Zev Sanders MD Chronic low back pain, unspecified back pain laterality, unspecified whether sciatica present 09/06/2024 Refill [facility] [address] [place] [address] Zev Sandesr MD Chronic low back pain, unspecified back pain laterality, unspecified whether sciatica present 08/10/2024 Telephone [facility] [address] [place] [address] Zev Sanders MD No Show 08/10/2024 Patient Outreach [facility] [address] [place] [address] Zev Sanders MD Care Coordination (C3/CM Outreach) 08/05/2024 Refill [facility] [address] [place] [address] Zev Sanders MD Chronic low back pain, unspecified back pain laterality, unspecified whether sciatica present 07/23/2024 Patient Outreach [address] [address] Zev Sanders MD Care Coordination (C3/CM Outreach) 07/23/2024 Patient Outreach [facility] [address] [place] [address] Zev Sanders MD 07/13/2024 Patient Outreach [address] [address] Zev Sanders MD Care Coordination (C3/CM Outreach) 07/08/2024 Patient Outreach [address] [address] Zev Sanders MD Care Coordination (C3/CM Outreach) 07/08/2024 Refill [facility] [address] [place] [address] Zev Sanders MD 07/07/2024 Refill [facility] [address] [place] [address] Zve Sanders MD Chronic low back pain, unspecified back pain laterality, unspecified whether sciatica present 07/02/2024 Patient Outreach [address] [address] Zev Sanders MD Care Coordination (C3/CM Outreach) 06/30/2024 Orders Only GENERIC EXTERNAL DATA DEPARTMENT Provider, Generic External Data 06/30/[address] [address] Zev Sanders MD FYI 06/25/2024 Patient Outreach [address] [address] Zev Sanders MD Care Coordination (C3/CM Outreach) 06/21/2024 Patient Outreach [address] [address] Zev Sanders MD Care Coordination (C3/CM Outreach) 06/21/2024 Patient Outreach [address] [address] Zev Sanders MD 06/21/2024 Patient Outreach [address] [address] Zev Sanders MD Transition Of Care (Tcm) 06/21/2024 Patient Outreach [facility] [address] [place] [address] Zev Sanders MD Care Coordination ([facility] chart review) 06/21/2024 Patient Outreach [address] [address] Zev Sanders MD 06/19/2024 Orders Only GENERIC EXTERNAL DATA DEPARTMENT Provider, Generic External Data 06/11/2024 Population Health Risk Score [facility] (C3) Department [address] [place] [phone] Provider, Population Health Generic from Last 3 Months Immunizations Immunization Administration [...] Used Date Smoking Tobacco: Former Cigarettes 1 990 - 2020 Smokeless Tobacco: Never Tobacco Cessation:Counseling Given: No [...] 04/29/2024 Depression Screening 10/13/2024 10/14/2023, 10/14/19 24 Disability Screening 05/01/2025 05/01/2024 Tobacco Screening 05/10/2025 05/10/2024 Colorectal Cancer Screening [...] PM EDT) Influenza A PCR NEGATIVE Negative [facility] Influenza B PCR NEGATIVE Negative [facility] Resp Syncy Virus RNA Qual PCR NEGATIVE Negative [facility] SARS COV2 PCR NEGATIVE Negative [facility] Comment:All test results mus t [...] use by authorized laboratories.Testing performed on the ProFib[employer] GeneXpert utilizingreal-time RT-PCR.All SARS CoV2 and positive influenza A/B results arereported to [facility]. 06/30/2024 2:58 PM EDT 06/30/2024 3:03 PM EDT us Generic External Data Provider LAB MICROBIOLOGY - GENERAL ORDERABLES Final Result [facility] [address] [place] [phone] * XR Chest 1 View (06/30/2024 11:40 AM EDT) Anatomical Region Laterality Modality Chest Radiographic Joy ging 06/30/2024 11:4 0 AM EDT Narrative 06/30/2024 12:45 PM EDT ? [facility] ?[address] ?[place] [address] ?XRay Report ? Signed ? Patient: Delvalle Izquierdo,Deysi D ?MR#: ?? [id number] ? : 1970 ?Acct:[id number] ? Age/Sex: 54 / F ?ADM Date: 06/30/24 ? Loc: HO.ED ? Attending Dr: ? Ordering Physician: Demetrius Valdivia MD ?? Date of Service: 06/30/24 ?? Procedure(s): XR chest 1V ?? Accession Number(s): [id number] ? cc: Zev Sanders MD; Demetrius Valdivia [...] DD/ 1140 ? TD/TT: 06/30/24 1226 ? Fur Designer: ? Procedure Note Travis Griffin - 06/30/[address] [address] XRay Report Signed Patient: Deysi Pfeiffer DMR#: [id number] : 1970Acct:[id number] Age/Sex: 54 / FADM Date: 06/30/24 Loc: HO.ED Attending Dr: Ordering Physician: Demetrius Valdivia MD Date of Service: 06/30/24 Procedure(s): XR chest 1V Accession Number(s): [id number] cc: Zev Sanders MD; Demetrius Valdivia MD [...] 06/30/24 1242 DD/ 1140 TD/TT: 06/30/24 1226 Fur Designer: [facility] External Provider IMG XR PROCEDURES Edited Result - Final * CT Abdomen Pelvis w/ Contrast (06/19/2024 4:58 PM EDT) Anatomical Region Laterality Modality Body, Pelvis, Abdomen Computed T omography 06/19/2024 4:58 PM EDT Narrative 06/19/2024 4:59 PM EDT ? [facility] ?[address] ?[place] [address] ? CT Scan Report ? Signed ? Patient: Adelia Izquierdo,Deysi D ?MR#: ?? [id number] ? : 1970 ?Acct:[id number] ? Age/Sex: 54 / F ?ADM Date: 03/22/25 ? Loc: HO.ED ? Attending Dr: ? Ordering Physician: Ace Briones ?? Date of Service: 06/19/24 ?? Procedure(s): CT abdomen pelvis w IV con ?? Accession Number(s): [id number] ? cc: Zev Sanders MD; Ace Briones ? Report Number: ?? [id number]: Total DLP = ??366.25 mGy-cm ? CLINICAL [...] ? DD/ 1658 ? TD/TT: 06/19/248 ? Fur Designer: ? Procedure Note Elias, Image - 06/19/[address] [place] [address] [address] Scan Report Signed Patient: Deysi Pfeiffer DMR#: [id number] : 1970Acct:[id number] Age/Sex: 54 / FADM Date: 06/19/24 Loc: HO.ED Attending Dr: Ordering Physician: Ace Briones Date of Service: 06/19/24 Procedure(s): CT abdomen pelvis w IV con Accession Number(s): [id number] cc: Zev Sanders MD; Ace Briones Report Number: [id number]: Total DLP = 366.25 mGy-cm CLINICAL HISTORY: [...] by Joel Villalta MD in OV> 06/19/24 1659 DD/ 57 TD/TT: 06/19/241657 Fur Designer: [facility] External Provider IMG CT PROCEDURES Edited Result - Final * CTA Chest PE Protocal (06/19/2024 4:55 PM EDT) Anatomical Region Laterality Modality Body, Chest Computed Tomogra phy 06/19/2024 4:55 PM EDT Narrative 06/19/2024 4:57 PM EDT ? [facility] ?[address] ?[place] [address] ? CT Scan Report ? Signed ? Patient: Adelia Izquierdo,Deysi D ?MR#: ?? [id number] ? : 1970 ?Acct:[id number] ? Age/Sex: 54 / F ?ADM Date: 03/22/25 ? Loc: HO.ED ? Attending Dr: ? Ordering Physician: Anselmo,Susanita PA ?? Date of Service: 06/19/24 ?? Procedure(s): CT angio chest PE protocol ?? Accession Number(s): [id number] ? cc: Zev Sanders MD; Ace Briones ? Report Number: ?? [id number]: Total DLP = ??166.75 mGy-cm ? CLINICAL [...] in OV> ? 06/19/24 1656 ? DD/ ? TD/TT: 06/19/241654 ? Fur Designer: ? Procedure Note Elias, Travis - 06/19/[address] [place] [address] [address] Scan Report Signed Patient: Deysi Pfeiffer DMR#: [id number] : 1970Acct:[id number] Age/Sex: 54 / FADM Date: 06/19/24 Loc: HO.ED Attending Dr: Ordering Physician: Ace Briones Date of Service: 06/19/24 Procedure(s): CT angio chest PE protocol Accession Number(s): [id number] cc: Zev Sanders MD; Ace Briones Report Number: [id number]: Total DLP = 166.75 mGy-cm CLINICAL HISTORY: [...] in OV> 06/19/246 DD/ 54 TD/TT: 06/19/241654 Fur Designer: [facility] External Provider IMG CT PROCEDURES Edited Result - Final * CT Head w/o Contrast (06/19/2024 4:50 PM EDT) Anatomical Region Laterality Modality Head, Neck Computed Tomogra phy 06/19/2024 4:50 PM EDT Narrative 06/19/2024 4:52 PM EDT ? [facility] ?[address] ?[place] [address] ? CT Scan Report ? Signed ? Patient: Delvalle Deysi Izquierdo D ?MR#: ?? [id number] ? : 1970 ?Acct:[id number] ? Age/Sex: 54 / F ?ADM Date: 06/19/24 ? Loc: HO.ED ? Attending Dr: ? Ordering Physician: Ace Briones ?? Date of Service: 06/19/24 ?? Procedure(s): CT head/brain wo IV con ?? Accession Number(s): [id number] ? cc: Zev Sanders MD; Ace Briones ? Report Number: ?? [id number]: Total DLP = ??666.00 mGy-cm ? CLINICAL [...] DD/ 1650 ? TD/TT: 06/19/24 1650 ? Fur Designer: ? Procedure Note Donotlakshmiinterpreter, Image - 06/19/[address] [place] [address] [address] Scan Report Signed Patient: Deysi Pfeiffer DMR#: [id number] : 1970Acct:[id number] Age/Sex: 54 / FADM Date: 06/19/24 Loc: HO.ED Attending Dr: Ordering Physician: Ace Briones Date of Service: 06/19/24 Procedure(s): CT head/brain wo IV con Accession Number(s): [id number] cc: Zev Sanders MD; Ace Briones Report Number: [id number]: Total DLP = 666.00 mGy-cm CLINICAL HISTORY: [...] in OV> 06/19/24 1651 DD/ 49 TD/TT: 06/19/241649 Fur Designer: [facility] External Provider IMG CT PROCEDURES Edited Result - Final * (ABNORMAL) Urinalysis w/reflex microscopic (06/19/2024 4:26 PM EDT) Color Urine Yellow [facility] Appearance Urine Clear [facility] PH 5.5 5.0 - 9.0 [facility] Glucose Urine UA Negative Negative mg/dL [facility] Urine Blood Negative Negative [facility] Specific [place] - Urine >=1.030(H) 1.005 - 1.025 [facility] Urine Protein Negative Neg-Trace mg/dL [facility] Urine Ketones 15 Negative mg/dL [facility] Nitrite Urine Negative Negative [facility] Leukocyte Esterase Urine Negative Negative [facility] 06/19/2024 4:26 PM EDT 06/19/2024 4:28 PM EDT Narrative [facility] - 06/19/2024 4:39 PM EDT [id number], Clean Catch Generic External Data Provider LAB URINE ORDERAB LES Final Result Performing Organization Address [facility]/ZIP Co de Phone Number [facility] [address] [place] [phone] * Blood Culture (Second) (06/19/2024 12:40 PM EDT) Blood Venous blood specimen / Unknown 06/19/2024 12:40 PM EDT 06/19/2024 12:44 PM EDT Comment:Blood Narrative [facility] - 06/24/2024 2:44 PM EDT Blood Culture (Second) No growth after 5 days. Specimen Source: Blood Generic External Data Provider LAB MICROBIOLOGY - GENERAL ORDERABLES Final Result Performing Organization Address [facility]/ZIP Co de Phone Number [facility] [address] [place] [phone] * Lactic Acid (06/19/2024 12:40 PM EDT) Lactic Acid 0.9 0.5 - 2.0 mmol/L [facility] 06/19/2024 12:4 0 PM EDT 06/19/2024 12:44 PM EDT Generic External Data Provider LAB BLOOD ORDERAB LES Final Result Performing Organization Address [facility] Co de Phone Number [facility] [address] [place] [phone] * Blood Culture (First) (06/19/2024 12:37 PM EDT) Blood Venous blood specimen / Unknown 06/19/2024 12:37 PM EDT 06/19/2024 12:40 PM EDT Comment:Blood Narrative [facility] - 06/24/2024 2:41 PM EDT Blood Culture (First) No growth after 5 days. Specimen Source: Blood Generic External Data Provider LAB MICROBIOLOGY - GENERAL ORDERABLES Final Result Performing Organization Address [facility] de Phone Number [facility] [address] [place] [phone] * Cologuard?? colon cancer screening (03/10/2023 2:14 PM EST) Cologuard Result Negative Negative 03/21/20 23 1:56 AM EST [facility] (CLIA #:[id number]) Comment: NEGATIVE TEST RESULT. A negative Cologuard [...] both Cologuard and colonoscopy. (Jorge Luis Steward. thierno al, N Engl J Med 2014;370(14):1286- 1297) The normal value (reference range) for this assay is negative. COLOGUARD RE-SCREENING RECOMMENDATION: Periodic colorectal cancer screening is an important part of preventive healthcare for asymptomatic individuals at average risk for colorectal cancer. ??Following a negative Cologuard result, the [place] [employer] Society and U.S. Multi-Society Task Force screening guidelines recommend a Cologuard re-screening interval of 3 years. References: [place] [employer] Guideline for Colorectal Cancer Screening: https://www.cancer.org/cancer/yhlmv-pehuue-pyocod/udrvhrwxi-xxlakthgi-iaypkhj/ac s-rec ommendations.html.; Edgar CRESPO, Antonio STONE, Salma CorderoK, Colorectal Cancer Screening: Recommendations for Physicians and Patients from the U.S. Multi-Society Task Force on Colorectal Cancer Screening , Am J Gastroenterology 2017; 112:5385-7043. TEST DESCRIPTION: Composite algorithmic analysis of stool [...] both Cologuard and colonoscopy. (Jorge Luis Steward. thierno al, N Engl J Med 2014;370(14):2819-4264.) Cologuard may produce a false negative or false positive result (no colorectal cancer or precancerous polyp present at colonoscopy follow up). A negative Cologuard test result does not guarantee the absence of CRC or advanced adenoma (pre-cancer). The current Cologuard screening interval is every 3 years. ([place] [employer] and U.S. Multi-Society Task Force). Cologuard performance data in a 10,000 patient pivotal study using colonoscopy as the reference method can be accessed at the following location: www.[employer]/results. Additional description of the Cologuard test process, warnings and precautions can be found at www.cologuard.com. Stool specimen (specimen) 03/10/2023 2:14 PM EST 03/12/2023 8:29 PM EST us Zev Sanders MD LAB MOLECULAR DIAGNOSTICS O RDERABLES Final Result [facility] (CLIA #:[id number]) [address] [place] [address], * HPV E6/E7 RFLX VANNESSA 16 18/45 (01/15/2022 10:19 AM EDT) HPV mRNA E6/E7 rflx Not Detected Not Detected [facility] Comment: Methodology: Scrap Picker-Mediated Amplification This assay detects E6/E7 viral messenger RNA (mRNA) from 14 high-risk HPV types (16,18,31,33,35,39,45,51,52,56,58,59,66,68). Cervical sources are required for HPV testing. If a vaginal source from a patient who has had a total hysterectomy with removal of cervix was submitted, please contact the testing laboratory for alternative testing options. For additional information, please refer to http://education.[employer]/faq/IWS716q2 (This link if provided for information/ educational purposes only.) THIS TEST WAS PERFORMED AT: [facility] [address] [place] [address],[address] [place], [place] ??[phone] ESPERANZA CRUZ MD 01/15/2022 10:1 9 AM EDT Mario Alberto Morgan MD HISTORICAL/NON ORDERABLE LABS Fi nal Result [facility] * Hm Pap Smear (01/15/2022) Historical Provider HEALTH MAINTENANCE Final Result * HEPATITIS C AB W/REFL TO HCV RNA, QN, PCR (11/12/2021 12:09 PM EDT) HEPATITIS C ANTIBODY NON-REACT JOSE MANUEL NON-REACT JOSE MANUEL [facility] INDEX 0.09 <1.00 [facility] Comment: ?? HCV antibody was non-reactive. There is no laboratory ?? evidence of HCV infection. ?? In most cases, no further action is required. However, if recent HCV exposure is suspected, a test for HCV RNA (test code 57647) is suggested. ?? For additional information please refer to http://education.[employer]/faq/YZQ93e0 (This link is being provided for informational/ educational purposes only.) ?? 11/12/2021 12:0 9 PM EDT us Zev Sanders MD HISTORICAL/NON ORDERABLE LA BS Final Result Performing Organization Address City/[facility]/ZIP Co de Phone Number [facility] [address] * (ABNORMAL) LIPID PANEL, STANDARD (11/12/2021 [...] ?? Hilario MOON et al. JUANA. 2013;310(19): 6279-8571 ?? (http://education.[employer]/faq/RFA853) Non-HDL Cholesterol 129 <130 mg/dL (calc) [facility] Comment: For patients with diabetes plus 1 major ASCVD risk ?? factor, treating to a non-HDL-C goal of <100 mg/dL ?? (LDL-C of <70 mg/dL) is considered a therapeutic ?? option. 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
== END 2024-09-09 14:16 | disposition home or self-care (01) ==
LOC: HO.PMC 14:03
PROVIDERS: PCP Internal Medicine; Visit Provider Nurse Practitioner Family
DX: Z79.891 Long term (current) use of opiate analgesic (principal); M54.2 Cervicalgia; M51.369 Other intervertebral disc degeneration, lumbar region without mention of lumbar back pain or lower extremity pain; M47.816 Spondylosis without myelopathy or radiculopathy, lumbar region; G89.4 Chronic pain syndrome
CPT/HCPCS: 99214

== ENCOUNTER → 2024-09-09 14:03 | Outpatient (BNVA) | payer MEDICAID, SELFPAY | PROVIDERS: PCP Internal Medicine; Visit Provider Nurse Practitioner Family | DX: Z79.891 Long term (current) use of opiate analgesic (principal); M54.2 Cervicalgia; M51.360 Other intervertebral disc degeneration, lumbar region with discogenic back pain only; M47.816 Spondylosis without myelopathy or radiculopathy, lumbar region; G89.4 Chronic pain syndrome | CPT/HCPCS: 99212 ==

== ENCOUNTER 2024-09-25 14:47 | Inpatient (IN) | payer MEDICAID, SELFPAY ==
[2024-09-25] VITALS (9 sets, daily range): BP systolic 95–120; BP diastolic 56–80; PULSE 76–112; RESP 16–20; TEMP 36.7–37.6; O2SAT 91–99; BMI 21.3
--- NOTE | 2024-09-25 | ECG_ITS ---
Test Reason : tachy Blood Pressure : */* mmHG Vent. Rate : 96 BPM Atrial Rate : 96 BPM P-R Int : 114 ms QRS Dur : 80 ms QT Int : 346 ms P-R-T Axes : 78 53 78 degrees QTcB Int : 437 ms Normal sinus rhythm Nonspecific ST and T wave abnormality Abnormal ECG When compared with ECG of 30-Jun-2024 12:00, Criteria for Septal infarct are no longer Present Non-specific change in ST segment in Lateral leads Nonspecific T wave abnormality now evident in Lateral leads Referred By: Generic ED Physician Electronically Signed By: PEDRO CAMPOS
--- NOTE | ~2024-09-25 | CT_ITS ---
CLINICAL HISTORY: abd pain, flank pain CT abdomen and pelvis with contrast Comparison: 06/19/2024 Findings: Please see same-day CTA chest for discussion of chest findings. Gallbladder is absent. The liver, spleen, adrenal glands, pancreas and kidneys are unremarkable. No hydronephrosis. No ureteral stones. No bowel obstruction, pneumoperitoneum, or pneumatosis. Moderate fecal loading in the colon. The cecum is hypermobile and in the midabdomen. Appendix not visualized. No inflammatory change in the region of the cecum. Wall calcifications of the abdominal aorta. No aortic aneurysm. Pelvic contents unremarkable. Uterus is retroverted. Urinary bladder is normal. Degenerative changes of the lower lumbar spine are present. Anterior abdominal wall is intact. IMPRESSION: No acute findings. This document has been electronically signed by: Nathan Mccullough MD on 09/25/2024 19:23:10
--- NOTE | ~2024-09-25 | CT_ITS ---
CLINICAL HISTORY: cough cp weakness CT angiography chest with contrast. 3D Postprocessing. Comparison: CT/SR - CT ANGIO CHEST PE PROTOCOL - 06/19/24 15:28 EDT Findings: The heart size is normal. RV/LV ratio is normal. Coronary artery calcifications are present. The thoracic aorta is normal caliber. No acute pulmonary embolus. The visualized thyroid and mediastinum are unremarkable. There is a background of severe centrilobular emphysema. There are multiple bilateral pulmonary nodules. Largest nodules are described: In the right upper lobe there is a spiculated nodule measuring 1.3 x 0.8 cm, series 8, image 63, new. In the right lower lobe there is a spiculated nodule with retraction of the adjacent pleura measuring 2.0 x 1.4 cm, series 8, image 75, previously an area of inflamed appearing bronchiectasis. There is a large platelike area of scarring in the right middle lobe anteriorly. There is also a 9 mm pulmonary nodule, series 10, image 41 in the right middle lobe, not seen previously. There was an area of consolidation in this area previously. Large platelike area of atelectasis or scarring in the left lingula. There is a patchy areas of consolidation in the right lower lobe as well as areas of tree-in-bud nodularity in the posterior right middle lobe. Some peripheral consolidation is present in the left lower lobe in conjunction with tree-in-bud nodules. The upper abdomen is unremarkable. No acute fractures. IMPRESSION: 1. No pulmonary emboli. 2. Bilateral lower lobe areas of consolidation tree-in-bud nodules concerning for infection such as pneumonia. Atypical infection or chronic infection could have a similar appearance. 3. Multiple new bilateral pulmonary nodules, largest measuring 2.0 cm in the right lower lobe. Per Fleischner criteria 9 mm or larger nodules should consider 3-[address] follow-up. For low risk 18-24 month follow-up is optional, whereas for high risk it is needed. These may represent areas of scarring related to previous infection, however follow-up recommended. This document has been electronically signed by: Nathan Mccullough MD on 09/25/2024 19:40:49
--- NOTE | ~2024-09-25 | XR_ITS ---
CLINICAL HISTORY: sob 1 view chest x-ray Comparison: 06/30/2024 Findings: There is new patchy reticular opacities in the mid and lower lung barrett. No effusion or pneumothorax. Lung apices are hyperlucent suggesting emphysema. Normal size heart. No acute fracture. IMPRESSION: New bilateral patchy opacities in the mid and lower lung barrett concerning for infection, pulmonary edema or interstitial lung disease. This document has been electronically signed by: Nathan Mccullough MD on 09/25/2024 18:04:07
[2024-09-25 15:24] LABS: MANUAL DIFF FLAG NO
[2024-09-25 15:25] LABS: Basophils Absolute Auto 0.1 X10*3/uL (0.0-0.2); Basophils Percent Auto 0.3 % (0-2); Eosinophils Absolute Auto 0.1 X10*3/uL (0.0-0.4); Eosinophils Percent Auto 0.4 % (0-4); Hematocrit 37.3 % (37.0-47.0); Hemoglobin 12.4 g/dl (12.0-16.0); Imm Gran Abs Auto 0.08 X10*3/uL (0.00-0.03); Imm Gran Pct Auto 0.4 % (0.0-0.4); Lymphocytes Absolute Auto 0.6 X10*3/uL (1.2-4.9); Lymphocytes Percent Auto 3.5 % (20-40); Mean Corpuscular HGB Conc 33.2 g/dl (31.0-35.0); Mean Corpuscular Hemoglobin 28.8 pg (27.0-33.0); Mean Corpuscular Volume 86.7 fL (80.0-98.0); Mean Platelet Volume 9.5 fL (9.4-12.3); Monocytes Absolute Auto 1.3 X10*3/uL (0.1-1.2); Monocytes Percent Auto 7.5 % (2-11); Neutrophils Absolute Auto 15.7 x10*3/uL (2.0-8.3); Neutrophils Percent Auto 87.9 % (45-73); Platelet Count 207 X10*3/uL (160-400); Red Cell Distribution Width 14.6 % (11.0-16.0); White Blood Count 17.9 X10*3/uL (4.8-10.8)
[2024-09-25 15:40] LABS: Alanine Aminotransferase 7 U/L (0-31); Albumin Level 3.9 g/dL (3.5-5.0); Alkaline Phosphatase 78 U/L (39-117); Anion Gap 14 (12-20); Aspartate Amino Transferase 24 U/L (5-31); Bilirubin Total 0.7 mg/dL (0.0-1.0); Blood Urea Nitrogen 11 mg/dL (9-16); Carbon Dioxide 29 mmol/L (22-29); Chloride 102 mmol/L (96-108); Creatinine Clr Calc Pharmacy 86.2; Estimated Glomerular Filt Rate > 60; Glucose Random 120 mg/dL (60-115); Magnesium 1.5 mg/dL (1.6-2.6); Potassium 3.6 mmol/L (3.3-5.1); Sodium 141 mmol/L (135-145); Total Protein 6.6 g/dL (6.5-8.0)
[2024-09-25 15:57] LABS: Appearance Urine Clear; Color Urine Yellow; Glucose Urine UA Negative (Negative); Leukocyte Esterase Urine Trace (Negative); Nitrite Urine Negative (Negative); PH 5.5 (5.0-9.0); UMIC TRIGGER UACC YES; Urine Blood Negative (Negative); Urine Ketones Negative (Negative); Urine Protein Negative (Neg-Trace)
[2024-09-25 15:59] LABS: UPreg QC Valid YES; Urine Pregnancy NEGATIVE (NEGATIVE)
[2024-09-25 16:20] LABS: Bacteria Urine None Seen (None Seen); Hyaline Casts Urine 0-2 /LPF (0-2); RBC Urine 0-2 /HPF (0-2); Squamous Epithelial Cell Urine 0-2 /HPF (0-2); WBC Urine 0-5 /HPF (0-5)
--- NOTE | 2024-09-25 16:34 | ED.GENADULT ---
HPI - General Adult General Chief complaint: General Medical Stated complaint: FEVER AND HEADACHE X 3 DAYS PER EMS Time Seen by Provider: 09/25/24 16:09 History of Present Illness HPI narrative: Patient is a 54-year-old female with a history of COPD. Presented today with having coughing congestion upper respiratory symptoms along with pain in the flank area bilaterally. Had a history of UTI. Has a history of COPD baseline is on 3 L of oxygen at home. 5 L when she is exerting herself. She is currently not smoking. But has been having increasing upper respiratory symptoms. There is no chest pain. There is shortness of breath that is baseline. There is no nausea vomiting diarrhea. Patient is from home. Related Data Home Medications ?Medication ?Instructions ?Recorded ?Confirmed mirtazapine 45 mg tablet 45 mg PO BEDTIME 03/27/20 08/12/24 quetiapine 100 mg tablet (Seroquel) 100 mg PO BEDTIME 03/27/20 08/12/24 lisinopril 10 mg tablet 10 mg PO DAILY 09/29/20 08/12/24 pregabalin 150 mg capsule 150 mg PO BID 11/13/20 08/12/24 esomeprazole magnesium 40 mg 40 mg PO BEDTIME 10/16/21 08/12/24 capsule,delayed release cholecalciferol (vitamin D3) 50 50 mcg PO DAILY 12/19/21 08/12/24 mcg (2,000 unit) tablet budesonide-formoterol HFA 160 2 puff inhalation BID 06/30/24 08/12/24 mcg-4.5 mcg/actuation aerosol inhaler (Symbicort) tiotropium bromide 2.5 2 puff inhalation DAILY 06/30/24 08/12/24 mcg/actuation mist for inhalation (Spiriva Respimat) Previous Rx's ?Medication ?Instructions ?Recorded naloxone 4 mg/actuation nasal 4 mg intranasal Q2M PRN opioid 09/08/23 spray (Narcan) overdose #2 ea ibuprofen 600 mg tablet 600 mg PO Q8H PRN fever or pain 05/20/24 #30 tabs prednisone 5 mg tablet 5 mg PO DAILY #30 tabs 05/31/24 Held on 07/01/24. Instructions: Resume on 07/05/24. montelukast 10 mg tablet 10 mg PO BEDTIME #30 tabs 08/30/24 albuterol sulfate 90 mcg/actuation 2 puff inhalation QID PRN for 08/31/24 aerosol inhaler (Ventolin HFA) wheezing #18 grams ipratropium 0.5 mg-albuterol 3 mg 3 ml inhalation Q6-8H PRN for 09/06/24 (2.5 mg base)/3 mL nebulization wheezing #360 mL soln oxycodone 5 mg tablet 5 mg PO TID PRN pain 30 days #90 09/09/24 tabs Allergies Allergy/AdvReac Type Severity Reaction Status Date / Time Penicillins (PENICILLINS) Allergy Severe RASH Verified 09/25/24 15:02 seafood Allergy Rash Verified 09/25/24 15:02 Review of Systems Review of Systems: Positive coughing congestion upper respiratory symptoms Yes all other systems are reviewed and are negative [facility] Past Medical History Attestation statement: The following information was validated with the patient. Medical History Current non-smoker but past smoking history unknown Respiratory failure with hypoxia COPD exacerbation Pre-op examination History of OCD (obsessive compulsive disorder) History of panic attacks Anxiety and depression Radiculopathy, lumbar region HTN (hypertension) Sacroiliitis COPD (chronic obstructive pulmonary disease) Asthma Allergic rhinitis Disc degeneration, lumbar Surgical History History of surgery History of appendectomy Hx of tonsillectomy Status post excision of lipoma History of tubal ligation Hx of excision of mass History of surgery History of laparoscopic cholecystectomy History of esophagogastroduodenoscopy (EGD) History of umbilical hernia repair History of incision and drainage Family History Family History Family/Other Cervical cancer Family/Other Stomach cancer Social History Social History Household Members: Significant Other and Family Household Members Other:: grandson Housing: Apartment Do you presently have visiting nurse or other home services: No Alcohol intake: never Comment: Significant other bedside Patient Tobacco Use Status: Former Tobacco user Tobacco use type: Cigarette Smoked in Last 30 Days: No Use of substances other than those prescribed or required for medical reasons: No Substance Use Type: Marijuana Advance Directives: Yes Advance Directives on File: Yes Advance Directives Date on File: 04/09/24 Do you have a plan to hurt others: No Plan Patient : No service: No Current occupational status: unemployed Sexual orientation: Straight/Heterosexual Gender identity: Female Physical Exam ED Vital Signs: Vital Signs - 24 hr 09/25/24 14:58 09/25/24 15:24 09/25/24 16:22 Temperature 99.5 F 99.6 F 99.7 F Pulse Rate 102 H 97 90 Respiratory Rate 20 20 18 Blood Pressure 113/80 97/66 109/66 Pulse Oximetry 91 L 94 96 Oxygen Delivery Method Nasal Cannula Nasal Cannula Nasal Cannula Oxygen Flow Rate 3 3 09/25/24 16:55 09/25/24 18:34 09/25/24 20:05 Temperature 98.6 F 98.0 F 98.7 F Pulse Rate 91 84 Respiratory Rate 19 18 Blood Pressure 120/73 117/73 Pulse Oximetry 95 93 Oxygen Delivery Method Nasal Cannula Nasal Cannula Oxygen Flow Rate 3 3 09/25/24 20:06 09/25/24 20:25 Temperature 98.7 F Pulse Rate 79 Respiratory Rate 16 Blood Pressure 101/63 95/56 L Pulse Oximetry 99 Oxygen Delivery Method Nasal Cannula Oxygen Flow Rate 3 BMI result Body Mass Index 21.3 Appearance: Alert. Oriented X3. No acute distress. Eyes: Pupils equal, round and reactive to light. ENT: Pharynx normal. Neck: Normal inspection. Neck supple. No lymph nodes noted. No crepitus CVS: Normal heart rate and rhythm. Pulses normal. Normal S1 and S2 Respiratory: Positive diminished breath sounds bilaterally Abdomen: Soft and nontender. No rigidity. No distention. good BS x4 Skin: Skin warm and dry. Normal skin color. Normal skin turgor. Extremities: No lower extremity edema. Neurovascular intact to all extremities. No Lacerations. No Rash Neuro: Oriented X 3. No motor deficit. No sensory deficit. Moving all extermities. No slurred speech Medications Administered Discontinued Medications Generic Name Dose Route Start Last Admin Trade Name Freq PRN Reason Stop Dose Admin Acetaminophen 975 mg 09/25/24 16:37 09/25/24 16:51 Acetaminophen 325 Mg Tablet PO 09/25/24 16:38 975 mg ONCE ONE Administration Azithromycin 500 mg 09/25/24 16:38 09/25/24 16:51 Azithromycin 500 Mg Tablet PO 09/25/24 16:39 500 mg ONCE ONE Administration Ceftriaxone Sodium 1 gm 09/25/24 16:38 09/25/24 16:50 Ceftriaxone Sodium 1 Gm Vial IVPUSH 09/25/24 16:39 1 gm ONCE ONE Administration Sodium Chloride 1,000 mls @ 999 mls/hr 09/25/24 16:45 09/25/24 20:03 Ns IV 09/25/24 17:45 Infused .Q1H1M CINDA Infusion Iohexol 100 ml 09/25/24 17:17 09/25/24 17:18 Iohexol 350 Mg/Ml 100 Ml Infus..Btl IV 09/25/24 17:18 85 ml ONCE ONE Administration Medical Decision Making Medical Decision Making [facility] Narrative: Positive coughing congestion upper respiratory symptoms. Patient's chest x-ray by my interpretation showed bilateral infiltrate. Patient's urine showed no signs of infection. Positive low-grade fever aches. Flu COVID RSV were all negative. Antibiotic was started patient's last admission was in June over 2 months ago was given Rocephin and azithromycin. Patient to be admitted history of COPD baseline on oxygen already. Positive coughing congestion upper respiratory symptoms patient's chest x-ray showed bilateral infiltrate. Has a history of COPD baseline is on oxygen already. Patient's lactate was less than 2. No evidence for severe sepsis a L of fluid was given antibiotic was given repeat exam for sepsis show patient improving patient to be admitted to the hospitalist team. CTA of the chest showed no evidence of PE. It did show evidence for pneumonia. Antibiotic already in. Repeat exam for sepsis done. Symptomatically improved additional steroid given neb treatment given. Patient to be admitted. Differential Diagnosis Differential Diagnoses: The differential diagnosis associated with the presentation includes Pneumonia Admission/Observation Consideration of admission/observation: Escalation of care including admission/observation considered Consult Healthcare Provider Management of the patient was discussed with: Hospitalist Lab Data [facility] Lab Attestation statement: I reviewed the patient's lab results. 09/25/24 15:20 09/25/24 15:20 Labs: Lab Results 09/25/24 09/25/24 09/25/24 Range/Units 15:20 15:46 16:46 WBC 17.9 H (4.8-10.8) X10*3/uL RBC 4.30 (4.20-5.50) X10*6/uL Hgb 12.4 (12.0-16.0) g/dl Hct 37.3 (37.0-47.0) % MCV 86.7 (80.0-98.0) fL MCH 28.8 (27.0-33.0) pg MCHC 33.2 (31.0-35.0) g/dl RDW 14.6 (11.0-16.0) % Plt Count 207 D (160-400) X10*3/uL MPV 9.5 (9.4-12.3) fL Immature Gran % (Auto) 0.4 (0.0-0.4) % Neut % (Auto) 87.9 H (45-73) % Lymph % (Auto) 3.5 L (20-40) % [place] % (Auto) 7.5 (2-11) % Eos % (Auto) 0.4 (0-4) % Baso % (Auto) 0.3 (0-2) % Lymph # (Auto) 0.6 L (1.2-4.9) X10*3/uL [place] # (Auto) 1.3 H (0.1-1.2) X10*3/uL Eos # (Auto) 0.1 (0.0-0.4) X10*3/uL Baso # (Auto) 0.1 (0.0-0.2) X10*3/uL Abs Immat Gran (auto) 0.08 H (0.00-0.03) X10*3/uL Absolute Neuts (auto) 15.7 H (2.0-8.3) x10*3/uL Absolute Nucleated RBC 0.000 (0.0-0.012) X10*3/uL Nucleated RBC % (auto) 0.0 (0.0-0.2) /100WBC Hold Blue Top VBG pH (7.32-7.43) VBG pCO2 mmHg VBG pO2 mmHg VBG HCO3 (22-26) mmol/L VBG O2 Saturation % VBG Base Excess mmol/L Sodium 141 (135-145) mmol/L Potassium 3.6 (3.3-5.1) mmol/L Chloride 102 (96-108) mmol/L Carbon Dioxide 29 (22-29) mmol/L Anion Gap 14 (12-20) BUN 11 (9-16) mg/dL Creatinine 0.59 (0.5-1.4) mg/dL Estim Creat Clear Calc 86.2 Estimated GFR > 60 Random Glucose 120 H (60-115) mg/dL Lactic Acid (0.5-2.0) mmol/L Calcium 9.0 D (8.4-10.2) mg/dL Magnesium 1.5 L (1.6-2.6) mg/dL Total Bilirubin 0.7 (0.0-1.0) mg/dL AST 24 (5-31) U/L ALT 7 (0-31) U/L Alkaline Phosphatase 78 (39-117) U/L Troponin I High Sens 13.9 D (<3.5-17.0) ng/L B-Natriuretic Peptide 15 (<100) pg/mL Total Protein 6.6 (6.5-8.0) g/dL Albumin 3.9 (3.5-5.0) g/dL Urine Color Yellow Urine Appearance Clear Urine pH 5.5 (5.0-9.0) Ur Specific [place] 1.010 (1.005-1.025) Urine Protein Negative (Neg-Trace) mg/dL Urine Glucose (UA) Negative (Negative) mg/dL Urine Ketones Negative (Negative) mg/dL Urine Blood Negative (Negative) Urine Nitrite Negative (Negative) Ur Leukocyte Esterase Trace H (Negative) Urine RBC 0-2 (0-2) /HPF Urine WBC 0-5 (0-5) /HPF Ur Squamous Epith Cells 0-2 (0-2) /HPF Urine Bacteria None Seen (None Seen) Hyaline Casts 0-2 (0-2) /LPF Urine Test NEGATIVE (NEGATIVE) Influenza Type A (PCR) NEGATIVE (Negative) Influenza Type B (PCR) NEGATIVE (Negative) RSV RNA Qual (PCR) NEGATIVE (Negative) SARS-CoV-2 RNA (RT-PCR) NEGATIVE (Negative) 09/25/24 09/25/24 Range/Units 16:47 16:57 WBC (4.8-10.8) X10*3/uL RBC (4.20-5.50) X10*6/uL Hgb (12.0-16.0) g/dl Hct (37.0-47.0) % MCV (80.0-98.0) fL MCH (27.0-33.0) pg MCHC (31.0-35.0) g/dl RDW (11.0-16.0) % Plt Count (160-400) X10*3/uL MPV (9.4-12.3) fL Immature Gran % (Auto) (0.0-0.4) % Neut % (Auto) (45-73) % Lymph % (Auto) (20-40) % [place] % (Auto) (2-11) % Eos % (Auto) (0-4) % Baso % (Auto) (0-2) % Lymph # (Auto) (1.2-4.9) X10*3/uL [place] # (Auto) (0.1-1.2) X10*3/uL Eos # (Auto) (0.0-0.4) X10*3/uL Baso # (Auto) (0.0-0.2) X10*3/uL Abs Immat Gran (auto) (0.00-0.03) X10*3/uL Absolute Neuts (auto) (2.0-8.3) x10*3/uL Absolute Nucleated RBC (0.0-0.012) X10*3/uL Nucleated RBC % (auto) (0.0-0.2) /100WBC Hold Blue Top SEE NOTE VBG pH 7.49 H (7.32-7.43) VBG pCO2 42 mmHg VBG pO2 72 mmHg VBG HCO3 33 H (22-26) mmol/L VBG O2 Saturation 96.0 % VBG Base Excess 9.1 mmol/L Sodium (135-145) mmol/L Potassium (3.3-5.1) mmol/L Chloride (96-108) mmol/L Carbon Dioxide (22-29) mmol/L Anion Gap (12-20) BUN (9-16) mg/dL Creatinine (0.5-1.4) mg/dL Estim Creat Clear Calc Estimated GFR Random Glucose (60-115) mg/dL Lactic Acid 0.9 (0.5-2.0) mmol/L Calcium (8.4-10.2) mg/dL Magnesium (1.6-2.6) mg/dL Total Bilirubin (0.0-1.0) mg/dL AST (5-31) U/L ALT (0-31) U/L Alkaline Phosphatase (39-117) U/L Troponin I High Sens (<3.5-17.0) ng/L B-Natriuretic Peptide (<100) pg/mL Total Protein (6.5-8.0) g/dL Albumin (3.5-5.0) g/dL Urine Color Urine Appearance Urine pH (5.0-9.0) Ur Specific [place] (1.005-1.025) Urine Protein (Neg-Trace) mg/dL Urine Glucose (UA) (Negative) mg/dL Urine Ketones (Negative) mg/dL Urine Blood (Negative) Urine Nitrite (Negative) Ur Leukocyte Esterase (Negative) Urine RBC (0-2) /HPF Urine WBC (0-5) /HPF Ur Squamous Epith Cells (0-2) /HPF Urine Bacteria (None Seen) Hyaline Casts (0-2) /LPF Urine Test (NEGATIVE) Influenza Type A (PCR) (Negative) Influenza Type B (PCR) (Negative) RSV RNA Qual (PCR) (Negative) SARS-CoV-2 RNA (RT-PCR) (Negative) Independent Interpretation I performed an independent interpretation of an: EKG (Sinus heart rate is 100 [place] QRS QTC normal no acute ST segment elevation) and Plain X-Ray (Bilateral infiltrate noted) Radiology Impression Discussion of test interpretation with radiology: I have reviewed the radiologist's reading. External Record Review External record reviewed: Inpatient record Chronic Conditions COPD on oxygen Social Determinants Patient?s care significantly limited by Social Determinants of Health including: Problems related to primary support group Critical Care Time Critical Care Time Critical Care Time: Yes Total Critical Care Time: 40 Attestation: I have personally provided 40 minutes of critical care time exclusive of time spent on separately billable procedures. ?Time includes review of lab data, radiology results, discussion with consultants, and monitoring for potential decompensation. ?Interventions were performed as documented above Discharge Plan Discharge Clinical Impression: Pneumonia, COPD (chronic obstructive pulmonary disease) Patient Disposition: Admitted As Inpatient Print Language: Khmer
[2024-09-25] MEDS: cefTRIAXone sodium 1 GM VIAL IVPUSH (16:50)
[2024-09-25] MEDS: 0.9 % Sodium Chloride 1,000 ML 999 ML IV ×2 (16:50→21:41)
[2024-09-25] MEDS: Azithromycin 500 MG TABLET PO (16:51)
[2024-09-25] MEDS: Acetaminophen 325 MG TABLET 975 MG PO (16:51)
[2024-09-25 17:05] LABS: VBG Base Excess 9.1 mmol/L; VBG HCO3 33 mmol/L (22-26); VBG pCO2 42 mmHg; VBG pH 7.49 (7.32-7.43); VBG pO2 72 mmHg
[2024-09-25 17:07] LABS: Venous Blood Gas Refer to POC result
[2024-09-25 17:11] LABS: Troponin-I High Sensitivity 13.9 ng/L (<3.5-17.0)
[2024-09-25 17:14] LABS: Lactic Acid 0.9 mmol/L (0.5-2.0)
[2024-09-25 17:18] LABS: B Type Natriuretic Peptide 15 pg/mL (<100)
[2024-09-25] MEDS: iohexoL 350 MG/ML 100 ML INFUS..BTL IV (17:18)
[2024-09-25 17:40] LABS: Influenza A PCR NEGATIVE (Negative); Influenza B PCR NEGATIVE (Negative); Resp Syncy Virus RNA Qual PCR NEGATIVE (Negative); SARS COV2 PCR INHOUSE NEGATIVE (Negative)
[2024-09-25] MEDS: methylPREDNISolone Sod Succ 125 MG/2 ML VIAL IVPUSH (21:46)
[2024-09-25] MEDS: Albuterol Sulfate 2.5 MG, Albuterol/Iprat 2.5/0.5MG 3 ML 3 ML INHALE (21:54)
--- NOTE | 2024-09-25 22:04 | ED.GENADULT ---
HPI - General Adult General Chief complaint: General Medical Stated complaint: FEVER AND HEADACHE X 3 DAYS PER EMS Time Seen by Provider: 09/25/24 16:09 Related Data Home Medications ?Medication ?Instructions ?Recorded ?Confirmed mirtazapine 45 mg tablet 45 mg PO BEDTIME 03/27/20 08/12/24 quetiapine 100 mg tablet (Seroquel) 100 mg PO BEDTIME 03/27/20 08/12/24 lisinopril 10 mg tablet 10 mg PO DAILY 09/29/20 08/12/24 pregabalin 150 mg capsule 150 mg PO BID 11/13/20 08/12/24 esomeprazole magnesium 40 mg 40 mg PO BEDTIME 10/16/21 08/12/24 capsule,delayed release cholecalciferol (vitamin D3) 50 50 mcg PO DAILY 12/19/21 08/12/24 mcg (2,000 unit) tablet budesonide-formoterol HFA 160 2 puff inhalation BID 06/30/24 08/12/24 mcg-4.5 mcg/actuation aerosol inhaler (Symbicort) tiotropium bromide 2.5 2 puff inhalation DAILY 06/30/24 08/12/24 mcg/actuation mist for inhalation (Spiriva Respimat) Previous Rx's ?Medication ?Instructions ?Recorded naloxone 4 mg/actuation nasal 4 mg intranasal Q2M PRN opioid 09/08/23 spray (Narcan) overdose #2 ea ibuprofen 600 mg tablet 600 mg PO Q8H PRN fever or pain 05/20/24 #30 tabs prednisone 5 mg tablet 5 mg PO DAILY #30 tabs 05/31/24 Held on 07/01/24. Instructions: Resume on 07/05/24. montelukast 10 mg tablet 10 mg PO BEDTIME #30 tabs 08/30/24 albuterol sulfate 90 mcg/actuation 2 puff inhalation QID PRN for 08/31/24 aerosol inhaler (Ventolin HFA) wheezing #18 grams ipratropium 0.5 mg-albuterol 3 mg 3 ml inhalation Q6-8H PRN for 09/06/24 (2.5 mg base)/3 mL nebulization wheezing #360 mL soln oxycodone 5 mg tablet 5 mg PO TID PRN pain 30 days #90 09/09/24 tabs Allergies Allergy/AdvReac Type Severity Reaction Status Date / Time Penicillins (PENICILLINS) Allergy Severe RASH Verified 09/25/24 15:02 seafood Allergy Rash Verified 09/25/24 15:02 [facility] Past Medical History Medical History Current non-smoker but past smoking history unknown Respiratory failure with hypoxia COPD exacerbation Pre-op examination History of OCD (obsessive compulsive disorder) History of panic attacks Anxiety and depression Radiculopathy, lumbar region HTN (hypertension) Sacroiliitis COPD (chronic obstructive pulmonary disease) Asthma Allergic rhinitis Disc degeneration, lumbar Surgical History History of surgery History of appendectomy Hx of tonsillectomy Status post excision of lipoma History of tubal ligation Hx of excision of mass History of surgery History of laparoscopic cholecystectomy History of esophagogastroduodenoscopy (EGD) History of umbilical hernia repair History of incision and drainage Family History Family History Family/Other Cervical cancer Family/Other Stomach cancer Social History Social History Household Members: Significant Other and Family Household Members Other:: grandson Housing: Apartment Do you presently have visiting nurse or other home services: No Alcohol intake: never Comment: Significant other bedside Patient Tobacco Use Status: Former Tobacco user Tobacco use type: Cigarette Smoked in Last 30 Days: No Use of substances other than those prescribed or required for medical reasons: No Substance Use Type: Marijuana Advance Directives: Yes Advance Directives on File: Yes Advance Directives Date on File: 04/09/24 Do you have a plan to hurt others: No Plan Patient : No service: No Current occupational status: unemployed Sexual orientation: Straight/Heterosexual Gender identity: Female Physical Exam ED Vital Signs: Vital Signs - 24 hr 09/25/24 14:58 09/25/24 15:24 09/25/24 16:22 Temperature 99.5 F 99.6 F 99.7 F Pulse Rate 102 H 97 90 Respiratory Rate 20 20 18 Blood Pressure 113/80 97/66 109/66 Pulse Oximetry 91 L 94 96 Oxygen Delivery Method Nasal Cannula Nasal Cannula Nasal Cannula Oxygen Flow Rate 3 3 09/25/24 16:55 09/25/24 18:34 09/25/24 20:05 Temperature 98.6 F 98.0 F 98.7 F Pulse Rate 91 84 Respiratory Rate 19 18 Blood Pressure 120/73 117/73 Pulse Oximetry 95 93 Oxygen Delivery Method Nasal Cannula Nasal Cannula Oxygen Flow Rate 3 3 09/25/24 20:06 09/25/24 20:25 Temperature 98.7 F Pulse Rate 79 Respiratory Rate 16 Blood Pressure 101/63 95/56 L Pulse Oximetry 99 Oxygen Delivery Method Nasal Cannula Oxygen Flow Rate 3 BMI result Body Mass Index 21.3 Medications Administered Generic Name Dose Route Start Last Admin Trade Name Freq PRN Reason Stop Dose Admin Sodium Chloride 1,000 mls @ 999 mls/hr 09/25/24 21:15 09/25/24 21:41 Ns IV 09/25/24 22:15 999 mls/hr .Q1H1M CINDA Administration Discontinued Medications Generic Name Dose Route Start Last Admin Trade Name Freq PRN Reason Stop Dose Admin Acetaminophen 975 mg 09/25/24 16:37 09/25/24 16:51 Acetaminophen 325 Mg Tablet PO 09/25/24 16:38 975 mg ONCE ONE Administration Azithromycin 500 mg 09/25/24 16:38 09/25/24 16:51 Azithromycin 500 Mg Tablet PO 09/25/24 16:39 500 mg ONCE ONE Administration Ceftriaxone Sodium 1 gm 09/25/24 16:38 09/25/24 16:50 Ceftriaxone Sodium 1 Gm Vial IVPUSH 09/25/24 16:39 1 gm ONCE ONE Administration Albuterol Sulfate 2.5 mg/ 0 mg 09/25/24 21:06 09/25/24 21:54 Albuterol/Ipratropium 3 ml INHALE 09/25/24 21:07 1 dose ONCE ONE Administration Sodium Chloride 1,000 mls @ 999 mls/hr 09/25/24 16:45 09/25/24 20:03 Ns IV 09/25/24 17:45 Infused .Q1H1M CINDA Infusion Iohexol 100 ml 09/25/24 17:17 09/25/24 17:18 Iohexol 350 Mg/Ml 100 Ml Infus..Btl IV 09/25/24 17:18 85 ml ONCE ONE Administration Methylprednisolone Sodium Succinate 125 mg 09/25/24 21:45 09/25/24 21:46 Methylprednisolone Sod Succ 125 Mg/2 Ml Vial IVPUSH 09/25/24 21:46 125 mg ONCE ONE Administration Medical Decision Making Lab Data 09/25/24 15:20 09/25/24 15:20 Labs: Lab Results 09/25/24 09/25/24 09/25/24 Range/Units 15:20 15:46 16:46 WBC 17.9 H (4.8-10.8) X10*3/uL RBC 4.30 (4.20-5.50) X10*6/uL Hgb 12.4 (12.0-16.0) g/dl Hct 37.3 (37.0-47.0) % MCV 86.7 (80.0-98.0) fL MCH 28.8 (27.0-33.0) pg MCHC 33.2 (31.0-35.0) g/dl RDW 14.6 (11.0-16.0) % Plt Count 207 D (160-400) X10*3/uL MPV 9.5 (9.4-12.3) fL Immature Gran % (Auto) 0.4 (0.0-0.4) % Neut % (Auto) 87.9 H (45-73) % Lymph % (Auto) 3.5 L (20-40) % [place] % (Auto) 7.5 (2-11) % Eos % (Auto) 0.4 (0-4) % Baso % (Auto) 0.3 (0-2) % Lymph # (Auto) 0.6 L (1.2-4.9) X10*3/uL [place] # (Auto) 1.3 H (0.1-1.2) X10*3/uL Eos # (Auto) 0.1 (0.0-0.4) X10*3/uL Baso # (Auto) 0.1 (0.0-0.2) X10*3/uL Abs Immat Gran (auto) 0.08 H (0.00-0.03) X10*3/uL Absolute Neuts (auto) 15.7 H (2.0-8.3) x10*3/uL Absolute Nucleated RBC 0.000 (0.0-0.012) X10*3/uL Nucleated RBC % (auto) 0.0 (0.0-0.2) /100WBC Hold Blue Top VBG pH (7.32-7.43) VBG pCO2 mmHg VBG pO2 mmHg VBG HCO3 (22-26) mmol/L VBG O2 Saturation % VBG Base Excess mmol/L Sodium 141 (135-145) mmol/L Potassium 3.6 (3.3-5.1) mmol/L Chloride 102 (96-108) mmol/L Carbon Dioxide 29 (22-29) mmol/L Anion Gap 14 (12-20) BUN 11 (9-16) mg/dL Creatinine 0.59 (0.5-1.4) mg/dL Estim Creat Clear Calc 86.2 Estimated GFR > 60 Random Glucose 120 H (60-115) mg/dL Lactic Acid (0.5-2.0) mmol/L Calcium 9.0 D (8.4-10.2) mg/dL Magnesium 1.5 L (1.6-2.6) mg/dL Total Bilirubin 0.7 (0.0-1.0) mg/dL AST 24 (5-31) U/L ALT 7 (0-31) U/L Alkaline Phosphatase 78 (39-117) U/L Troponin I High Sens 13.9 D (<3.5-17.0) ng/L B-Natriuretic Peptide 15 (<100) pg/mL Total Protein 6.6 (6.5-8.0) g/dL Albumin 3.9 (3.5-5.0) g/dL Urine Color Yellow Urine Appearance Clear Urine pH 5.5 (5.0-9.0) Ur Specific [place] 1.010 (1.005-1.025) Urine Protein Negative (Neg-Trace) mg/dL Urine Glucose (UA) Negative (Negative) mg/dL Urine Ketones Negative (Negative) mg/dL Urine Blood Negative (Negative) Urine Nitrite Negative (Negative) Ur Leukocyte Esterase Trace H (Negative) Urine RBC 0-2 (0-2) /HPF Urine WBC 0-5 (0-5) /HPF Ur Squamous Epith Cells 0-2 (0-2) /HPF Urine Bacteria None Seen (None Seen) Hyaline Casts 0-2 (0-2) /LPF Urine Test NEGATIVE (NEGATIVE) Influenza Type A (PCR) NEGATIVE (Negative) Influenza Type B (PCR) NEGATIVE (Negative) RSV RNA Qual (PCR) NEGATIVE (Negative) SARS-CoV-2 RNA (RT-PCR) NEGATIVE (Negative) 09/25/24 09/25/24 Range/Units 16:47 16:57 WBC (4.8-10.8) X10*3/uL RBC (4.20-5.50) X10*6/uL Hgb (12.0-16.0) g/dl Hct (37.0-47.0) % MCV (80.0-98.0) fL MCH (27.0-33.0) pg MCHC (31.0-35.0) g/dl RDW (11.0-16.0) % Plt Count (160-400) X10*3/uL MPV (9.4-12.3) fL Immature Gran % (Auto) (0.0-0.4) % Neut % (Auto) (45-73) % Lymph % (Auto) (20-40) % [place] % (Auto) (2-11) % Eos % (Auto) (0-4) % Baso % (Auto) (0-2) % Lymph # (Auto) (1.2-4.9) X10*3/uL [place] # (Auto) (0.1-1.2) X10*3/uL Eos # (Auto) (0.0-0.4) X10*3/uL Baso # (Auto) (0.0-0.2) X10*3/uL Abs Immat Gran (auto) (0.00-0.03) X10*3/uL Absolute Neuts (auto) (2.0-8.3) x10*3/uL Absolute Nucleated RBC (0.0-0.012) X10*3/uL Nucleated RBC % (auto) (0.0-0.2) /100WBC Hold Blue Top SEE NOTE VBG pH 7.49 H (7.32-7.43) VBG pCO2 42 mmHg VBG pO2 72 mmHg VBG HCO3 33 H (22-26) mmol/L VBG O2 Saturation 96.0 % VBG Base Excess 9.1 mmol/L Sodium (135-145) mmol/L Potassium (3.3-5.1) mmol/L Chloride (96-108) mmol/L Carbon Dioxide (22-29) mmol/L Anion Gap (12-20) BUN (9-16) mg/dL Creatinine (0.5-1.4) mg/dL Estim Creat Clear Calc Estimated GFR Random Glucose (60-115) mg/dL Lactic Acid 0.9 (0.5-2.0) mmol/L Calcium (8.4-10.2) mg/dL Magnesium (1.6-2.6) mg/dL Total Bilirubin (0.0-1.0) mg/dL AST (5-31) U/L ALT (0-31) U/L Alkaline Phosphatase (39-117) U/L Troponin I High Sens (<3.5-17.0) ng/L B-Natriuretic Peptide (<100) pg/mL Total Protein (6.5-8.0) g/dL Albumin (3.5-5.0) g/dL Urine Color Urine Appearance Urine pH (5.0-9.0) Ur Specific [place] (1.005-1.025) Urine Protein (Neg-Trace) mg/dL Urine Glucose (UA) (Negative) mg/dL Urine Ketones (Negative) mg/dL Urine Blood (Negative) Urine Nitrite (Negative) Ur Leukocyte Esterase (Negative) Urine RBC (0-2) /HPF Urine WBC (0-5) /HPF Ur Squamous Epith Cells (0-2) /HPF Urine Bacteria (None Seen) Hyaline Casts (0-2) /LPF Urine Test (NEGATIVE) Influenza Type A (PCR) (Negative) Influenza Type B (PCR) (Negative) RSV RNA Qual (PCR) (Negative) SARS-CoV-2 RNA (RT-PCR) (Negative) Discharge Plan Discharge Clinical Impression: Pneumonia, COPD (chronic obstructive pulmonary disease) Patient Disposition: Admitted As Inpatient
--- NOTE | 2024-09-25 22:05 | P.HPHOSP_ITS ---
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 Patient denies any recent travel or exposure to anyone that is been ill. Patient is up-to-date on her vaccinations. Patient has had pneumonia in the past. Patient denies productive cough. Patient has been having fever and chills but denies night sweats. Patient normally on 5 L of oxygen with ambulation and 3 L at rest. Patient did not require an increase in oxygen use. Patient denies chest pain currently. The patient did report hematuria and burning with urination, but UA is negative for any UTI. Patient was started on ceftriaxone azithromycin in the emergency department. Chest CTA completed and was negative for pulmonary embolus but did indicate bilateral lower lobe pneumonia, possible atypical pneumonia. Patient denies any issues with swallowing or aspiration. Patient denies history of PE and DVT. In addition multiple new bilateral pulmonary nodules are present. 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 Will consult Pulmonary for review. Viral studies for COVID, flu and RSV are all negative. Patient was experiencing tachycardia status post duo neb and expresses that she has tachycardia at home after doing her nebulizer treatments. Changed duo nebs to Xopenex and patient may benefit from this medication upon discharge to the home setting. Patient does have history of anxiety/depression and panic attacks. Patient currently denies any suicidal ideations. Patient states her symptoms are under control. Review of Systems 2 Review of Systems: Patient currently denies any chest pain or shortness of breath at rest. Patient is still having shortness of breath with exertion. Patient reports junky cough but is nonproductive. Patient states chills or resolved. Patient denies any visual changes but is reporting a frontal headache. Patient denies abdominal pain, constipation or diarrhea. Yes all other systems are reviewed and are negative PMFSH Medical History Current non-smoker but past smoking history unknown Respiratory failure with hypoxia COPD exacerbation Pre-op examination History of OCD (obsessive compulsive disorder) History of panic attacks Anxiety and depression Radiculopathy, lumbar region HTN (hypertension) Sacroiliitis COPD (chronic obstructive pulmonary disease) Asthma Allergic rhinitis Disc degeneration, lumbar Cognitive capacity: Alert and orientated x3 Functional capacity: independent ambulation Patient : No Family History Family/Other Cervical cancer Family/Other Stomach cancer Surgical History History of surgery History of appendectomy Hx of tonsillectomy Status post excision of lipoma History of tubal ligation Hx of excision of mass History of surgery History of laparoscopic cholecystectomy History of esophagogastroduodenoscopy (EGD) History of umbilical hernia repair History of incision and drainage Social History Household Members: Significant Other and Family Household Members Other:: grandson Housing: Apartment Do you presently have visiting nurse or other home services: No Alcohol intake: never Comment: Significant other bedside Patient Tobacco Use Status: Former Tobacco user Tobacco use type: Cigarette Substance Use Type: Marijuana Advance Directives Date on File: 04/09/24 service: No Current occupational status: unemployed Sexual orientation: Straight/Heterosexual Gender identity: Female Ebola Risk: Travel/Contact With Anyone From Affected Area/s: No Has Patient Experienced Ebola Symptoms: No Meds Allergies Allergy/AdvReac Type Severity Reaction Status Date / Time Penicillins (PENICILLINS) Allergy Severe RASH Verified 09/25/24 15:02 seafood Allergy Rash Verified 09/25/24 15:02 Active Medications: Current Medications Acetaminophen (Acetaminophen 325 Mg Tablet) 650 mg PO Q6H PRN PRN Reason: Pain, Mild 1-3,fever,headache Albuterol/Ipratropium (Albuterol/Iprat 2.5/0.5mg 3 Ml Ampul.Neb) 3 ml INHALE Q4H PRN PRN Reason: Shortness of Breath/Wheezing Budesonide (Budesonide 0.5 Mg/2 Ml Ampul.Neb) 0.5 mg INHALE RBID CINDA Calcium Carbonate (Calcium Carbonate 750 Mg Tab.Chew) 750 mg PO Q4H PRN PRN Reason: Heartburn Ceftriaxone Sodium (Ceftriaxone Sodium 1 Gm Vial) 1 gm IVPUSH Q24H [facility] Enoxaparin Sodium (Enoxaparin Sodium 40 Mg/0.4 Ml Syringe) 40 mg SUBCUT Q24H [facility] Sodium Chloride (Ns) 1,000 mls @ 999 mls/hr IV .Q1H1M [facility] Stop: 09/25/24 22:15 Last Admin: 09/25/24 21:41 Dose: 999 mls/hr Lactated Ringer's (Lr) 1,000 mls @ 100 mls/hr IVCONT .Q10H [facility] Azithromycin 500 mg/ Sodium (Chloride) 250 mls @ 125 mls/hr IV Q24H [facility] Magnesium Hydroxide (Milk Of Magnesia 30 Ml Oral.Susp) 30 ml PO DAILY PRN PRN Reason: Constipation Melatonin (Melatonin 3 Mg Tablet) 6 mg PO BEDTIME PRN PRN Reason: Insomnia Ondansetron HCl (Ondansetron Hcl 4 Mg/2 Ml Vial) 4 mg IVPUSH Q8H PRN PRN Reason: Nausea and Vomiting Polyethylene Glycol (Polyethylene Glycol 3350 17 Gm Powd.Pack) 17 gm PO DAILY PRN PRN Reason: Constipation Senna (Sennosides 8.6 Mg Tablet) 17.2 mg PO BEDTIME [facility] Sodium Chloride (0.9 % Sodium Chloride Flush 3 Ml Syringe) 3 ml IVFLUSH QSHIFT [facility] Home Medications ?Medication ?Instructions ?Recorded ?Confirmed ?Last Taken ?Type mirtazapine 45 mg tablet 45 mg PO BEDTIME 03/27/2006/29/24 History quetiapine 100 mg tablet (Seroquel) 100 mg PO BEDTIME 03/27/20 08/12/24 06/29/24 History lisinopril 10 mg tablet 10 mg PO DAILY 09/29/2007/2906/30/24 History pregabalin 150 mg capsule 150 mg PO BID 11/13/2008/1206/30/24 History esomeprazole magnesium 40 mg 40 mg PO BEDTIME 10/16/21 08/12/24 06/29/24 History capsule,delayed release cholecalciferol (vitamin D3) 50 50 mcg PO DAILY 08/12/2406/30/25 History mcg (2,000 unit) tablet budesonide-formoterol HFA 160 2 puff inhalation BID 08/12/24 Unknown History mcg-4.5 mcg/actuation aerosol inhaler (Symbicort) tiotropium bromide 2.5 2 puff inhalation DAILY 05/2508/12/24 06/30/24 History mcg/actuation mist for inhalation (Spiriva Respimat) Physical Exam 2 Vital Signs and Narrative: Vital Signs: Last Vital Signs Temp 98.7 F 09/25/24 20:06 Pulse 76 09/25/24 21:54 Resp 18 09/25/24 21:54 BP 95/56 L 09/25/24 20:25 Pulse Ox 99 09/25/24 20:06 O2 Del Method Nasal Cannula 09/25/24 20:06 O2 Flow Rate 3 09/25/24 20:06 Oxygen Flow Rate 3 09/25/24 14:58 BMI result Body Mass Index 21.3 Alert and orientated X3, able to give good history. Neuro: CN II-X11 intact, no deficits, visual acuity intact EYES: PERRLA, EOM intact, sclerae nonicteric ENT: hearing intact, no issues with swallowing, uvula midline, lips moist, nares patent no epistaxis Cardiac: S1 S2 RRR, no murmur, no JVD, no edema in Lower ext Pulmonary: lungs diminished throughout Abdominal: BS active in all 4 quadrants, no guarding, tenderness, rebounding MSK: strength 5/5 upper and lower extremities : no CVA tenderness no bladder distension Extremities: no edema in lower extremities, PT and DP pulses palpable +2 Psych: mood stable, judgement and insight good Skin: Intact no report of open wounds Results Labs 09/25/24 15:20 09/25/24 15:20 Labs: Laboratory Results - last 24 hr 09/25/24 09/25/24 09/25/24 15:20 15:46 16:46 MCV 86.7 MCH 28.8 MCHC 33.2 RDW 14.6 Plt Count 207 D MPV 9.5 Immature Gran % (Auto) 0.4 Neut % (Auto) 87.9 H Lymph % (Auto) 3.5 L [place] % (Auto) 7.5 Eos % (Auto) 0.4 Baso % (Auto) 0.3 Lymph # (Auto) 0.6 L [place] # (Auto) 1.3 H Eos # (Auto) 0.1 Baso # (Auto) 0.1 Abs Immat Gran (auto) 0.08 H Absolute Neuts (auto) 15.7 H Absolute Nucleated RBC 0.000 Nucleated RBC % (auto) 0.0 Hold Blue Top VBG pH VBG pCO2 VBG pO2 VBG HCO3 VBG O2 Saturation VBG Base Excess Anion Gap 14 Estim Creat Clear Calc 86.2 Estimated GFR > 60 Random Glucose 120 H Lactic Acid Calcium 9.0 D Magnesium 1.5 L Total Bilirubin 0.7 AST 24 ALT 7 Alkaline Phosphatase 78 Troponin I High Sens 13.9 D B-Natriuretic Peptide 15 Total Protein 6.6 Albumin 3.9 Urine Color Yellow Urine Appearance Clear Urine pH 5.5 Ur Specific [place] 1.010 Urine Protein Negative Urine Glucose (UA) Negative Urine Ketones Negative Urine Blood Negative Urine Nitrite Negative Ur Leukocyte Esterase Trace H Urine RBC 0-2 Urine WBC 0-5 Ur Squamous Epith Cells 0-2 Urine Bacteria None Seen Hyaline Casts 0-2 Urine Test NEGATIVE Influenza Type A (PCR) NEGATIVE Influenza Type B (PCR) NEGATIVE RSV RNA Qual (PCR) NEGATIVE SARS-CoV-2 RNA (RT-PCR) NEGATIVE 09/25/24 09/25/24 16:47 16:57 MCV MCH MCHC RDW Plt Count MPV Immature Gran % (Auto) Neut % (Auto) Lymph % (Auto) [place] % (Auto) Eos % (Auto) Baso % (Auto) Lymph # (Auto) [place] # (Auto) Eos # (Auto) Baso # (Auto) Abs Immat Gran (auto) Absolute Neuts (auto) Absolute Nucleated RBC Nucleated RBC % (auto) Hold Blue Top SEE NOTE VBG pH 7.49 H VBG pCO2 42 VBG pO2 72 VBG HCO3 33 H VBG O2 Saturation 96.0 VBG Base Excess 9.1 Anion Gap Estim Creat Clear Calc Estimated GFR Random Glucose Lactic Acid 0.9 Calcium Magnesium Total Bilirubin AST ALT Alkaline Phosphatase Troponin I High Sens B-Natriuretic Peptide Total Protein Albumin Urine Color Urine Appearance Urine pH Ur Specific [place] Urine Protein Urine Glucose (UA) Urine Ketones Urine Blood Urine Nitrite Ur Leukocyte Esterase Urine RBC Urine WBC Ur Squamous Epith Cells Urine Bacteria Hyaline Casts Urine Test Influenza Type A (PCR) Influenza Type B (PCR) RSV RNA Qual (PCR) SARS-CoV-2 RNA (RT-PCR) ECG Attestation: I personally reviewed and interpreted this ECG as follows: (NSR nonspecific ST and T-wave abnormalities lateral leads) Prior ECG tracings: available for review Imaging Radiologist's Impressions: CTA CHest IMPRESSION: 1. No pulmonary emboli. 2. Bilateral lower lobe areas of consolidation tree-in-bud nodules concerning for infection such as pneumonia. Atypical infection or chronic infection could have a similar appearance. 3. Multiple new bilateral pulmonary nodules, largest measuring 2.0 cm in the right lower lobe. Per Fleischner criteria 9 mm or larger nodules should consider 3-[address] follow-up. For low risk 18-24 month follow-up is optional, whereas for high risk it is needed. These may represent areas of scarring related to previous infection, however follow-up recommended. CT ABD pelvis IMPRESSION: No acute findings. 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 Patient does not meet criteria for exit respiratory failure she is normally on oxygen in the lowest pulse ox was 91% in the ED. Patient does have a leukocytosis but a normal lactic acid. Pt reassured that UA negative for UTI. Atypical pneumonia -Diagnosed via CT scan, no evidence of hypoxia, LA WNL -Pt does not meet criteria for sepsis at this time -Unable to collect sputum prior to ABX, BC X2 pending -Patient is started on ceftriaxone azithromycin -MRSA screen pending -Legionella and strep pneumonia via urine sent -Duo nebs changed to Xopenex due to tachycardia both here and at home with breathing treatments, patient may benefit from change in medication for discharge -Supportive care, mucinex and flonase added -Telemetry and continuous pulse ox -Chronic use of O2 at home - 3L at rest, 5L with exertion -Incentive spirometer ordered COPD/Asthma/ Emphysema -Changing duonebs to xopenex due to tachycardia here and at home -Methylprednisilone started in ED, 60 mgs IV BID will continue in AM -supportive care -Pt denies active smoking Hypomagnesemia -MG 1.5 -Replacement added -MG in AM Headache -Nonspecific, pt has them on occassion, denies hx of migraine -Motrin added one time, can use prn if needed -Tylenol prn Evidence of new pulmonary nodules on CT scan -Pulmonary consulted -will need follow up as outpatient GERD -Omeperazole -TUMS prn -Avoid food triggers Chronic pain syndrome -MED REC pending -Continue home meds once completed DVT prophylaxis: Lovenox PPI prophylaxis: Omeprazole Med rec pending Full Code Quality Stroke Does the patient have a stroke diagnosis?: No Reason for No Anti-thrombotic by Day Two: N/A - Med Ordered VTE Prior VTE?: No VTE Risk Level:: Medical - moderate - high VTE Device Contraindication: N/A - Device Ordered VTE Drug Contraindication: N/A - Med Ordered
[2024-09-25] MEDS: Lactated Ringers 1,000 ML 100 ML IVCONT (22:20)
[2024-09-25] MEDS: Enoxaparin Sodium 40 MG/0.4 ML SYRINGE SUBCUT (22:20)
[2024-09-25] MEDS: Ibuprofen 600 MG TABLET PO (23:17)
[2024-09-25] MEDS: Magnesium Sulfate/H2O 2 GM/50 ML PIGGYBACK IV (23:20)
[2024-09-26] VITALS (11 sets, daily range): BP systolic 113–138; BP diastolic 62–83; PULSE 66–86; RESP 16–20; TEMP 36–36.6; O2SAT 94–100; BMI 22.9
--- NOTE | 2024-09-26 00:15 | PC.NURSE ---
Respiratory medications pending administration by respiratory team, made aware x2, per RT will meet pt at bed assignment for administration
[2024-09-26] MEDS: levalbuterol HCL 1.25 MG/3 ML VIAL.NEB INHALE ×4 (01:11→19:38)
[2024-09-26] MEDS: Budesonide 0.5 MG/2 ML AMPUL.NEB INHALE ×2 (01:11→08:25)
[2024-09-26] MEDS: QUEtiapine Fumarate 100 MG TABLET PO ×2 (02:50→22:01)
[2024-09-26] MEDS: Montelukast Sodium 10 MG TABLET PO ×2 (02:50→22:02)
[2024-09-26 05:09] LABS: Basophils Percent Auto 0.2 % (0-2); Imm Gran Pct Auto 0.5 % (0.0-0.4); Lymphocytes Absolute Auto 0.4 X10*3/uL (1.2-4.9); MANUAL DIFF FLAG SCAN; Mean Corpuscular HGB Conc 33.3 g/dl (31.0-35.0); Mean Corpuscular Hemoglobin 28.8 pg (27.0-33.0); Mean Corpuscular Volume 86.5 fL (80.0-98.0); Monocytes Absolute Auto 0.1 X10*3/uL (0.1-1.2); Monocytes Percent Auto 0.7 % (2-11); Neutrophils Absolute Auto 17.8 x10*3/uL (2.0-8.3); Neutrophils Percent Auto 96.6 % (45-73); Platelet Count 226 X10*3/uL (160-400); Red Blood Count 4.16 X10*6/uL (4.20-5.50); Red Cell Distribution Width 14.4 % (11.0-16.0); SCAN SMEAR FLAG 1; White Blood Count 18.5 X10*3/uL (4.8-10.8)
[2024-09-26 05:32] LABS: Alanine Aminotransferase 6 U/L (0-31); Albumin Level 3.5 g/dL (3.5-5.0); Alkaline Phosphatase 73 U/L (39-117); Anion Gap 13 (12-20); Aspartate Amino Transferase 20 U/L (5-31); Bilirubin Total 0.3 mg/dL (0.0-1.0); Blood Urea Nitrogen 10 mg/dL (9-16); Calcium 8.7 mg/dL (8.4-10.2); Carbon Dioxide 27 mmol/L (22-29); Chloride 107 mmol/L (96-108); Creatinine Clr Calc Pharmacy 105.9; Estimated Glomerular Filt Rate > 60; Glucose Random 165 mg/dL (60-115); Magnesium 2.2 mg/dL (1.6-2.6); Potassium 3.8 mmol/L (3.3-5.1); Sodium 143 mmol/L (135-145); Total Protein 6.1 g/dL (6.5-8.0)
[2024-09-26 06:23] LABS: SLIDE REVIEW VERIFIED
--- NOTE | 2024-09-26 08:57 | PHA.MEDREC ---
Addendum entered by Anna Love RPh 09/26/24 09:16: Reviewed by [facility], [facility] not filled since May 2024 x 30 DS Original Note: Pharmacy Consult ? Medication Reconciliation Pharmacy reviewed med rec done by nursing. Spoke with pt and she confirmed the medications, confirmed on the med rec. Pt confirmed she finished the Ibuprofen 600mg tab A few months ago , it was confirmed on the med rec; I took that off. Pt states she still uses Spiriva Respimat inhaler at home, confirming she takes 2 puffs inh daily.
[2024-09-26 08:59] LABS: Procalcitonin 0.46 ng/mL
[2024-09-26 09:05] LABS: MRSA Nasal PCR NEGATIVE (Negative); SA Nasal PCR NEGATIVE (Negative)
[2024-09-26] MEDS: Pregabalin 150 MG CAPSULE PO ×2 (09:31→22:02)
[2024-09-26] MEDS: Fluticasone Propionate Nasal 16 GM SPRAY 1 SPRAY NOSTRIL-B (09:31)
[2024-09-26] MEDS: oxyCODONE HCl Immed Release 5 MG TABLET PO ×3 (09:31→19:25)
[2024-09-26] MEDS: guaiFENesin LA 600 MG TAB.ER.12H PO ×2 (09:31→22:02)
[2024-09-26] MEDS: Cholecalciferol (Vitamin D3) 25 MCG TABLET 50 MCG PO (09:31)
[2024-09-26] MEDS: lisinopriL 10 MG TABLET PO (09:31)
[2024-09-26] MEDS: methylPREDNISolone Sod Succ 125 MG/2 ML VIAL 62.5 MG IVPUSH ×2 (09:32→22:02)
[2024-09-26] MEDS: Lactated Ringers 1,000 ML 100 ML IVCONT (09:32)
[2024-09-26] MEDS: 0.9 % Sodium Chloride Flush 3 ML SYRINGE IVFLUSH ×3 (09:43→22:03)
[2024-09-26] MEDS: Acetaminophen 325 MG TABLET 650 MG PO (11:12)
[2024-09-26] MEDS: Fluticasone/Vilanterol 200/25 BLST.W.DEV 1 PUFF INHALE (11:19)
[2024-09-26] MEDS: Tiotropium Bromide 2.5 mcg 1 PUFF/2.5 MCG MIST.INHAL 2 PUFF INHALE (11:19)
--- NOTE | 2024-09-26 12:05 | HO.PM.IMPN ---
Subjective Subjective Date of Service: 09/26/24 Interval History: cough, dyspnea improved no fever Review of Systems Review of Systems: Yes all other systems are reviewed and are negative Physical Exam Vital Signs: Vital Signs: Last Vital Signs Temp 96.8 F 09/26/24 11:06 Pulse 72 09/26/24 11:21 Resp 18 09/26/24 11:21 BP 119/67 09/26/24 11:06 Pulse Ox 96 09/26/24 11:06 O2 Del Method Nasal Cannula 09/26/24 11:06 O2 Flow Rate 2 09/26/24 11:06 Oxygen Flow Rate 3 09/25/24 14:58 BMI result Body Mass Index 22.9 Gen: in no acute distress HEENT: sclera anicteric, moist mucus membranes Neck: supple Lungs: diminished Heart: regular rate and rhythm, no murmurs Abd: soft, non-tender, non-distended Ext: no edema Skin: warm/well-perfused Neuro: alert and oriented x3, no focal findings Psych: appropriate affect Objective Data Active Medications Acetaminophen (Acetaminophen 325 Mg Tablet) 650 mg PO Q6H PRN PRN Reason: Pain, Mild 1-3,fever,headache Last Admin: 09/26/24 11:12 Dose: 650 mg Documented By: AG Calcium Carbonate (Calcium Carbonate 750 Mg Tab.Chew) 750 mg PO Q4H PRN PRN Reason: Heartburn Ceftriaxone Sodium (Ceftriaxone Sodium 1 Gm Vial) 1 gm IVPUSH Q24H [facility] Enoxaparin Sodium (Enoxaparin Sodium 40 Mg/0.4 Ml Syringe) 40 mg SUBCUT Q24H [facility] Last Admin: 09/25/24 22:20 Dose: 40 mg Documented By: NI Fluticasone Propionate (Fluticasone Propionate Nasal 16 Gm [place]) 1 spray NOSTRIL-B DAILY [facility] Last Admin: 09/26/24 09:31 Dose: 1 spray Documented By: AG Fluticasone/Vilanterol (Fluticasone/Vilanterol 200/25 Blst.W.Dev) 1 puff INHALE RDAILY [facility] Last Admin: 09/26/24 11:19 Dose: 1 puff Documented By: AYESHA Guaifenesin (Guaifenesin [place] 600 Mg Tab.Er.12h) 600 mg PO BID [facility] Last Admin: 09/26/24 09:31 Dose: 600 mg Documented By: AG Azithromycin 500 mg/ Sodium (Chloride) 250 mls @ 125 mls/hr IV Q24H [facility] Levalbuterol HCl (Levalbuterol Hcl 1.25 Mg/3 Ml Vial.Neb) 1.25 mg INHALE RTID [facility] Last Admin: 09/26/24 08:23 Dose: 1.25 mg Documented By: AYESHA Lisinopril (Lisinopril 10 Mg Tablet) 10 mg PO DAILY [facility]; Protocol Last Admin: 09/26/24 09:31 Dose: 10 mg Documented By: AG Magnesium Hydroxide (Milk Of Magnesia 30 Ml Oral.Susp) 30 ml PO DAILY PRN PRN Reason: Constipation Melatonin (Melatonin 3 Mg Tablet) 6 mg PO BEDTIME PRN PRN Reason: Insomnia Methylprednisolone Sodium Succinate (Methylprednisolone Sod Succ 125 Mg/2 Ml Vial) 62.5 mg IVPUSH Q12H [facility] Last Admin: 09/26/24 09:32 Dose: 62.5 mg Documented By: AG Comments: Mirtazapine (Mirtazapine 15 Mg Tablet) 45 mg PO BEDTIME [facility] Montelukast Sodium (Montelukast Sodium 10 Mg Tablet) 10 mg PO BEDTIME [facility] Last Admin: 09/26/24 02:50 Dose: 10 mg Documented By: MAC Comments: per pt request. MD notified of med being administered Omeprazole (Omeprazole 20 Mg Capsule.) 20 mg PO BEDTIME [facility] Ondansetron HCl (Ondansetron Hcl 4 Mg/2 Ml Vial) 4 mg IVPUSH Q8H PRN PRN Reason: Nausea and Vomiting Oxycodone HCl (Oxycodone Hcl Immed Release 5 Mg Tablet) 5 mg PO TID PRN PRN Reason: Pain, Severe (Pain Scale 7-10) Last Admin: 09/26/24 09:31 Dose: 5 mg Documented By: AG Polyethylene Glycol (Polyethylene Glycol 3350 17 Gm Powd.Pack) 17 gm PO DAILY PRN PRN Reason: Constipation Pregabalin (Pregabalin 150 Mg Capsule) 150 mg PO BID [facility] Last Admin: 09/26/24 09:31 Dose: 150 mg Documented By: AG Quetiapine Fumarate (Quetiapine Fumarate 100 Mg Tablet) 100 mg PO BEDTIME [facility] Last Admin: 09/26/24 02:50 Dose: 100 mg Documented By: MAC Comments: per pt request. MD notified of med being administered Senna (Sennosides 8.6 Mg Tablet) 17.2 mg PO BEDTIME [facility] Sodium Chloride (0.9 % Sodium Chloride Flush 3 Ml Syringe) 3 ml IVFLUSH QSHIFT [facility] Last Admin: 09/26/24 09:43 Dose: 3 ml Documented By: AG Tiotropium [place] (Tiotropium [place] 2.5 Mcg 1 Puff/2.5 Mcg Mist.Inhal) 2 puff INHALE RDAILY [facility] Last Admin: 09/26/24 11:19 Dose: 2 puff Documented By: AYESHA Vitamin D (Cholecalciferol (Vitamin D3) 25 Mcg Tablet) 50 mcg PO DAILY [facility] Last Admin: 09/26/24 09:31 Dose: 50 mcg Documented By: AG Labs 09/26/24 04:40 09/26/24 04:40 Labs: Laboratory Results - last 24 hr 09/25/24 09/25/24 09/25/24 15:20 15:46 16:46 MCV 86.7 MCH 28.8 MCHC 33.2 RDW 14.6 Plt Count 207 D MPV 9.5 Immature Gran % (Auto) 0.4 Neut % (Auto) 87.9 H Lymph % (Auto) 3.5 L [place] % (Auto) 7.5 Eos % (Auto) 0.4 Baso % (Auto) 0.3 Lymph # (Auto) 0.6 L [place] # (Auto) 1.3 H Eos # (Auto) 0.1 Baso # (Auto) 0.1 Abs Immat Gran (auto) 0.08 H Absolute Neuts (auto) 15.7 H Absolute Nucleated RBC 0.000 Nucleated RBC % (auto) 0.0 Smear Tech's Comments Hold Blue Top VBG pH VBG pCO2 VBG pO2 VBG HCO3 VBG O2 Saturation VBG Base Excess Anion Gap 14 Estim Creat Clear Calc 86.2 Estimated GFR > 60 Random Glucose 120 H Lactic Acid Calcium 9.0 D Magnesium 1.5 L Total Bilirubin 0.7 AST 24 ALT 7 Alkaline Phosphatase 78 Troponin I High Sens 13.9 D B-Natriuretic Peptide 15 Total Protein 6.6 Albumin 3.9 Procalcitonin Urine Color Yellow Urine Appearance Clear Urine pH 5.5 Ur Specific [place] 1.010 Urine Protein Negative Urine Glucose (UA) Negative Urine Ketones Negative Urine Blood Negative Urine Nitrite Negative Ur Leukocyte Esterase Trace H Urine RBC 0-2 Urine WBC 0-5 Ur Squamous Epith Cells 0-2 Urine Bacteria None Seen Hyaline Casts 0-2 Urine Test NEGATIVE Nasal Screen MRSA (PCR) Nasal S. aureus Screen Nasal MRSA/S.aureus Interp Influenza Type A (PCR) NEGATIVE Influenza Type B (PCR) NEGATIVE RSV RNA Qual (PCR) NEGATIVE SARS-CoV-2 RNA (RT-PCR) NEGATIVE 09/25/24 09/25/24 09/26/24 16:47 16:57 04:40 MCV 86.5 MCH 28.8 MCHC 33.3 RDW 14.4 Plt Count 226 MPV 10.0 Immature Gran % (Auto) 0.5 H Neut % (Auto) 96.6 H Lymph % (Auto) 2.0 L [place] % (Auto) 0.7 L Eos % (Auto) 0.0 Baso % (Auto) 0.2 Lymph # (Auto) 0.4 L [place] # (Auto) 0.1 Eos # (Auto) 0.0 Baso # (Auto) 0.0 Abs Immat Gran (auto) 0.10 H Absolute Neuts (auto) 17.8 H Absolute Nucleated RBC 0.000 Nucleated RBC % (auto) 0.0 Smear Tech's Comments VERIFIED Hold Blue Top SEE NOTE VBG pH 7.49 H VBG pCO2 42 VBG pO2 72 VBG HCO3 33 H VBG O2 Saturation 96.0 VBG Base Excess 9.1 Anion Gap 13 Estim Creat Clear Calc 105.9 Estimated GFR > 60 Random Glucose 165 H Lactic Acid 0.9 Calcium 8.7 Magnesium 2.2 Total Bilirubin 0.3 AST 20 ALT 6 Alkaline Phosphatase 73 Troponin I High Sens B-Natriuretic Peptide Total Protein 6.1 L Albumin 3.5 Procalcitonin 0.46 Urine Color Urine Appearance Urine pH Ur Specific [place] Urine Protein Urine Glucose (UA) Urine Ketones Urine Blood Urine Nitrite Ur Leukocyte Esterase Urine RBC Urine WBC Ur Squamous Epith Cells Urine Bacteria Hyaline Casts Urine Test Nasal Screen MRSA (PCR) Nasal S. aureus Screen Nasal MRSA/S.aureus Interp Influenza Type A (PCR) Influenza Type B (PCR) RSV RNA Qual (PCR) SARS-CoV-2 RNA (RT-PCR) 09/26/24 Unknown MCV MCH MCHC RDW Plt Count MPV Immature Gran % (Auto) Neut % (Auto) Lymph % (Auto) [place] % (Auto) Eos % (Auto) Baso % (Auto) Lymph # (Auto) [place] # (Auto) Eos # (Auto) Baso # (Auto) Abs Immat Gran (auto) Absolute Neuts (auto) Absolute Nucleated RBC Nucleated RBC % (auto) Smear Tech's Comments Hold Blue Top VBG pH VBG pCO2 VBG pO2 VBG HCO3 VBG O2 Saturation VBG Base Excess Anion Gap Estim Creat Clear Calc Estimated GFR Random Glucose Lactic Acid Calcium Magnesium Total Bilirubin AST ALT Alkaline Phosphatase Troponin I High Sens B-Natriuretic Peptide Total Protein Albumin Procalcitonin Urine Color Urine Appearance Urine pH Ur Specific [place] Urine Protein Urine Glucose (UA) Urine Ketones Urine Blood Urine Nitrite Ur Leukocyte Esterase Urine RBC Urine WBC Ur Squamous Epith Cells Urine Bacteria Hyaline Casts Urine Test Nasal Screen MRSA (PCR) NEGATIVE Nasal S. aureus Screen NEGATIVE Nasal MRSA/S.aureus Interp SEE NOTE Influenza Type A (PCR) Influenza Type B (PCR) RSV RNA Qual (PCR) SARS-CoV-2 RNA (RT-PCR) Assessment and Plan (1) COPD (chronic obstructive pulmonary disease): Status: Acute (2) Pneumonia: Status: Acute Plan d2 for 54yo F with COPD/asthma overlap on 3L O2 at home, HTN, mood disorder, chronic pain, GERD, RUELAS and allergic rhinitis presenting with 3d of dyspnea, fever, and ROJAS; found to have bilateral lower lobe pneumonia and pulmonary nodules bilateral pneumonia - continue ceftriaxone + azithromycin 09/25-, follow BCx, trend PCT, urinary antigens for Legionella and pneumococcus pending, MRSA swab pending COPD/asthma overlap exacerbation - continue IV methylprednisolone, standing/prn nebs, montelukast, tiotropium, Breo pulmonary nodules - likely infectious per Pulmonology, will 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 Quality Stroke Does the patient have a stroke diagnosis?: No Reason for No Anti-thrombotic by Day Two: N/A - Med Ordered VTE Prior VTE?: No VTE Risk Level:: Medical - moderate - high VTE Device Contraindication: N/A - Device Ordered VTE Drug Contraindication: N/A - Med Ordered
--- NOTE | 2024-09-26 12:08 | P.CONPL_ITS ---
History of Present Illness History of Present Illness Consult date: 09/26/24 Chief complaint: Hypoxic respiratory failure Narrative: 54-year-old lady with underlying/COPD overlap syndrome on supplemental oxygen up to 5L at home, followed by Dr. Mathews. admitted on 09/25/2024 with dyspnea and treated empirically for community acquired pneumonia. CT angio chest with no eveidence of pulmonary emboli, but patchy infiltrates/nodular densities. Recovering well. Review of Systems 2 Constitutional: Constitutional: Denies daytime sleepiness, Denies excessive sweating, Denies fatigue, Denies fever(s), Denies lethargy, Denies malaise, Denies night sweats, Denies snoring and Denies weight loss Eyes: Eyes: Denies blurry vision and Denies itchy eyes ENT: Denies nasal congestion, Denies post nasal drip, Denies sinus pain, Denies sinus pressure and Denies other ( Thrush) Cardiovascular: Cardiovascular: Denies chest pain, Denies pedal edema, Denies dyspnea, Reports dyspnea on exertion, Denies orthopnea and Denies paroxysmal nocturnal dyspnea Respiratory: Respiratory: Denies cough, Denies hemoptysis, Denies excessive phlegm production, Denies dyspnea, Reports dyspnea on exertion, Denies snoring and Denies wheezing Gastrointestinal: Gastrointestinal: Denies abdominal pain and Denies heartburn Musculoskeletal: Musculoskeletal: Denies myalgias, Denies arthralgias and Denies joint swelling Integumentary/Breasts: Skin/Breast: Denies rash Neurologic: Denies memory loss and Denies seizure-like activity Psychiatric: Psychiatric: Denies abnormal sleep pattern, Denies anxiety and Denies memory loss Endocrine: Endocrine: Denies excessive sweating, Denies fatigue and Denies heat intolerance Hematologic/Lymphatic: Hematologic/Lymphatic: Denies easy bruising Allergic/Immunologic: Allergic/Immunologic: Denies itchy eyes, Denies seasonal rhinorrhea and Denies wheezing PMFSH Past Medical History Medical History Current non-smoker but past smoking history unknown Respiratory failure with hypoxia COPD exacerbation Pre-op examination History of OCD (obsessive compulsive disorder) History of panic attacks Anxiety and depression Radiculopathy, lumbar region HTN (hypertension) Sacroiliitis COPD (chronic obstructive pulmonary disease) Asthma Allergic rhinitis Disc degeneration, lumbar Family History Family History Family/Other Cervical cancer Family/Other Stomach cancer Surgical History Surgical History History of surgery History of appendectomy Hx of tonsillectomy Status post excision of lipoma History of tubal ligation Hx of excision of mass History of surgery History of laparoscopic cholecystectomy History of esophagogastroduodenoscopy (EGD) History of umbilical hernia repair History of incision and drainage Social History Social History Household Members: Significant Other and Family Household Members Other:: grandson Housing: House Do you presently have visiting nurse or other home services: No Alcohol intake: never Comment: Significant other bedside Patient Tobacco Use Status: Former Tobacco user Tobacco use type: Cigarette Substance Use Type: Marijuana Advance Directives Date on File: 04/09/24 service: No Current occupational status: unemployed Sexual orientation: Straight/Heterosexual Gender identity: Female Travel History Ebola Risk: Travel/Contact With Anyone From Affected Area/s: No Has Patient Experienced Ebola Symptoms: No Meds Allergies Allergy/AdvReac Type Severity Reaction Status Date / Time Penicillins (PENICILLINS) Allergy Severe RASH Verified 09/25/24 15:02 seafood Allergy Rash Verified 09/25/24 15:02 Active Medications: Current Medications Acetaminophen (Acetaminophen 325 Mg Tablet) 650 mg PO Q6H PRN PRN Reason: Pain, Mild 1-3,fever,headache Last Admin: 09/26/24 11:12 Dose: 650 mg Calcium Carbonate (Calcium Carbonate 750 Mg Tab.Chew) 750 mg PO Q4H PRN PRN Reason: Heartburn Ceftriaxone Sodium (Ceftriaxone Sodium 1 Gm Vial) 1 gm IVPUSH Q24H [facility] Enoxaparin Sodium (Enoxaparin Sodium 40 Mg/0.4 Ml Syringe) 40 mg SUBCUT Q24H [facility] Last Admin: 09/25/24 22:20 Dose: 40 mg Fluticasone Propionate (Fluticasone Propionate Nasal 16 Gm [place]) 1 spray NOSTRIL-B DAILY [facility] Last Admin: 09/26/24 09:31 Dose: 1 spray Fluticasone/Vilanterol (Fluticasone/Vilanterol 200/25 Blst.W.Dev) 1 puff INHALE RDAILY [facility] Last Admin: 09/26/24 11:19 Dose: 1 puff Guaifenesin (Guaifenesin [place] 600 Mg Tab.Er.12h) 600 mg PO BID [facility] Last Admin: 09/26/24 09:31 Dose: 600 mg Azithromycin 500 mg/ Sodium (Chloride) 250 mls @ 125 mls/hr IV Q24H [facility] Levalbuterol HCl (Levalbuterol Hcl 1.25 Mg/3 Ml Vial.Neb) 1.25 mg INHALE RTID [facility] Last Admin: 09/26/24 08:23 Dose: 1.25 mg Lisinopril (Lisinopril 10 Mg Tablet) 10 mg PO DAILY [facility]; Protocol Last Admin: 09/26/24 09:31 Dose: 10 mg Magnesium Hydroxide (Milk Of Magnesia 30 Ml Oral.Susp) 30 ml PO DAILY PRN PRN Reason: Constipation Melatonin (Melatonin 3 Mg Tablet) 6 mg PO BEDTIME PRN PRN Reason: Insomnia Methylprednisolone Sodium Succinate (Methylprednisolone Sod Succ 125 Mg/2 Ml Vial) 62.5 mg IVPUSH Q12H [facility] Last Admin: 09/26/24 09:32 Dose: 62.5 mg Mirtazapine (Mirtazapine 15 Mg Tablet) 45 mg PO BEDTIME [facility] Montelukast Sodium (Montelukast Sodium 10 Mg Tablet) 10 mg PO BEDTIME [facility] Last Admin: 09/26/24 02:50 Dose: 10 mg Omeprazole (Omeprazole 20 Mg Capsule.Dr) 20 mg PO BEDTIME [facility] Ondansetron HCl (Ondansetron Hcl 4 Mg/2 Ml Vial) 4 mg IVPUSH Q8H PRN PRN Reason: Nausea and Vomiting Oxycodone HCl (Oxycodone Hcl Immed Release 5 Mg Tablet) 5 mg PO TID PRN PRN Reason: Pain, Severe (Pain Scale 7-10) Last Admin: 09/26/24 09:31 Dose: 5 mg Polyethylene Glycol (Polyethylene Glycol 3350 17 Gm Powd.Pack) 17 gm PO DAILY PRN PRN Reason: Constipation Pregabalin (Pregabalin 150 Mg Capsule) 150 mg PO BID [facility] Last Admin: 09/26/24 09:31 Dose: 150 mg Quetiapine Fumarate (Quetiapine Fumarate 100 Mg Tablet) 100 mg PO BEDTIME [facility] Last Admin: 09/26/24 02:50 Dose: 100 mg Senna (Sennosides 8.6 Mg Tablet) 17.2 mg PO BEDTIME [facility] Sodium Chloride (0.9 % Sodium Chloride Flush 3 Ml Syringe) 3 ml IVFLUSH QSHIFT [facility] Last Admin: 09/26/24 09:43 Dose: 3 ml Tiotropium [place] (Tiotropium [place] 2.5 Mcg 1 Puff/2.5 Mcg Mist.Inhal) 2 puff INHALE RDAILY [facility] Last Admin: 09/26/24 11:19 Dose: 2 puff Vitamin D (Cholecalciferol (Vitamin D3) 25 Mcg Tablet) 50 mcg PO DAILY [facility] Last Admin: 09/26/24 09:31 Dose: 50 mcg Home Medications ?Medication ?Instructions ?Recorded ?Confirmed ?Last Taken ?Type mirtazapine 45 mg tablet 45 mg PO BEDTIME 03/27/2009/24/24 22:00 History quetiapine 100 mg tablet (Seroquel) 100 mg PO BEDTIME 03/27/20 09/26/24 09/24/24 22:00 History lisinopril 10 mg tablet 10 mg PO DAILY 09/29/2008/30 1 Day Ago History ~09/25/24 pregabalin 150 mg capsule 150 mg PO BID 11/13/2009/2609/25/24 08:00 History esomeprazole magnesium 40 mg 40 mg PO DAILY@0630 10/1609/26/24 09/25/24 History capsule,delayed release cholecalciferol (vitamin D3) 50 50 mcg PO DAILY 09/26/24 1 Day Ago History mcg (2,000 unit) tablet ~09/25/24 budesonide-formoterol HFA 160 2 puff inhalation BID 09/26/24 Unknown History mcg-4.5 mcg/actuation aerosol inhaler (Symbicort) tiotropium bromide 2.5 2 puff inhalation DAILY 05/2509/26/24 09/25/24 History mcg/actuation mist for inhalation (Spiriva Respimat) ipratropium 0.5 mg-albuterol 3 mg 3 ml inhalation Q6H PRN for 09/26/24 09/26/24 Unknown History (2.5 mg base)/3 mL nebulization wheezing soln Physical Exam 2 Vital Signs: Vital Signs: Last Vital Signs Temp 96.8 F 09/26/24 11:06 Pulse 72 09/26/24 11:21 Resp 18 09/26/24 11:21 BP 119/67 09/26/24 11:06 Pulse Ox 96 09/26/24 11:06 O2 Del Method Nasal Cannula 09/26/24 11:06 O2 Flow Rate 2 09/26/24 11:06 Oxygen Flow Rate 3 09/25/24 14:58 BMI result Body Mass Index 22.9 Const: General: no acute distress and alert Nutritional Appearance: not obese Orientation/consciousness: Other orientation findings ( oriented) HEENT: Head: Yes atraumatic Eyes: General: appearance normal, both eyes and all related structures S clerae: sclerae normal EOM: EOMs intact bilaterally Neck: Neck: Yes supple Lymphatic: no lymphadenopathy noted Resp: Effort & Inspection: normal respiratory effort and no use of accessory muscles Auscultation: clear to auscultation bilaterally Cardio: Rate: regular rate Rhythm: regular rhythm Heart sounds: no gallops, no murmurs and no rubs Skin: General skin exam: other ( warm) Extrem: General: No clubbing, No cyanosis and No edema Results Laboratory Findings 09/26/24 04:40 09/26/24 04:40 Abnormal lab findings: Abnormal Labs 09/25/24 09/25/24 09/25/24 15:20 15:46 16:57 WBC 17.9 H RBC Hct Immature Gran % (Auto) Neut % (Auto) 87.9 H Lymph % (Auto) 3.5 L [place] % (Auto) Lymph # (Auto) 0.6 L [place] # (Auto) 1.3 H Abs Immat Gran (auto) 0.08 H Absolute Neuts (auto) 15.7 H VBG pH 7.49 H VBG HCO3 33 H Creatinine Random Glucose 120 H Magnesium 1.5 L Total Protein Ur Leukocyte Esterase Trace H 09/26/24 04:40 WBC 18.5 H RBC 4.16 L Hct 36.0 L Immature Gran % (Auto) 0.5 H Neut % (Auto) 96.6 H Lymph % (Auto) 2.0 L [place] % (Auto) 0.7 L Lymph # (Auto) 0.4 L [place] # (Auto) Abs Immat Gran (auto) 0.10 H Absolute Neuts (auto) 17.8 H VBG pH VBG HCO3 Creatinine 0.48 L Random Glucose 165 H Magnesium Total Protein 6.1 L Ur Leukocyte Esterase Assessment and Plan (1) COPD (chronic obstructive pulmonary disease): Status: Acute (2) Pneumonia: Qualifiers: Laterality: bilateral Lung location: lower lobe of lung Pneumonia type: due to unspecified organism Qualified Code(s): J18.9 - Pneumonia, unspecified organism Status: Acute (3) Pulmonary nodules: Status: Acute Plan Impression: 54-year-old lady with underlying COPD/asthma overlap syndrome on supplemental oxygen up to 5 L admitted with dyspnea and empirically treated for community-acquired pneumonia with pulmonary nodules noted on CT chest. Recommendation: Agree with empiric treatment for community-acquired pneumonia and COPD exacerbation with empiric antibiotics, systemic glucocorticoids, and nebulized bronchodilators. CT chest reviewed, nodular densities noted, likely related to ongoing infection, would recommend repeating CT chest in 8-12 weeks from the index one. Procedures Date of Service Date of Service: 09/26/24
--- NOTE | 2024-09-26 15:32 | MHC.CM.PN ---
PT REPORTS SHE LIVES WITH HER GRANDSON, WELL HER S/O WHO WAS AT BEDSIDE SHE HAS DAILY [employer] AND O2 FROM [employer] PT ALSO REPORTS HAVING A WALKER AND NEBULIZER AND SAYS SHE WAS JUST APPROVED FOR A W/C HCP ON FILE AND VERIFIED PCP: SONIA BRIGHT DCP: HOME WITH RESUMPTION OF [employer] PT DOES HAVE A RIDE, BUT STATES SHE MAY NEED BLS IF SHE IS NOT FEELING WELL ENOUGH.
[2024-09-26] MEDS: cefTRIAXone sodium 1 GM VIAL IVPUSH (16:19)
[2024-09-26] MEDS: Azithromycin 500 MG in 0.9 % Sodium Chloride 250 ML 125 MG IV (16:19)
[2024-09-26] MEDS: Sennosides 8.6 MG TABLET 17.2 MG PO (22:01)
[2024-09-26] MEDS: Omeprazole 20 MG CAPSULE.DR PO (22:02)
[2024-09-26] MEDS: Enoxaparin Sodium 40 MG/0.4 ML SYRINGE SUBCUT (22:02)
[2024-09-26] MEDS: Mirtazapine 15 MG TABLET 45 MG PO (22:02)
[2024-09-26] MEDS: Ibuprofen 400 MG TABLET PO (22:08)
[2024-09-27 03:55] VITALS: BP 139/61; PULSE 51; RESP 16; TEMP 36.8; O2SAT 100
[2024-09-27 07:06] VITALS: BP 132/61; PULSE 57; RESP 16; TEMP 36.1; O2SAT 100
[2024-09-27 07:08] LABS: Hematocrit 35.4 % (37.0-47.0); Hemoglobin 11.4 g/dl (12.0-16.0); Mean Corpuscular HGB Conc 32.2 g/dl (31.0-35.0); Mean Corpuscular Hemoglobin 28.6 pg (27.0-33.0); Mean Corpuscular Volume 88.9 fL (80.0-98.0); Mean Platelet Volume 10.2 fL (9.4-12.3); Platelet Count 228 X10*3/uL (160-400); Red Blood Count 3.98 X10*6/uL (4.20-5.50); Red Cell Distribution Width 14.2 % (11.0-16.0); White Blood Count 13.7 X10*3/uL (4.8-10.8)
[2024-09-27] MEDS: Tiotropium Bromide 2.5 mcg 1 PUFF/2.5 MCG MIST.INHAL 2 PUFF INHALE (07:09)
[2024-09-27] MEDS: levalbuterol HCL 1.25 MG/3 ML VIAL.NEB INHALE ×2 (07:09→11:39)
[2024-09-27] MEDS: Fluticasone/Vilanterol 200/25 BLST.W.DEV 1 PUFF INHALE (07:09)
[2024-09-27 07:11] VITALS: PULSE 57; RESP 16; O2SAT 96
[2024-09-27 07:20] LABS: Anion Gap 11 (12-20); Blood Urea Nitrogen 13 mg/dL (9-16); Calcium 9.2 mg/dL (8.4-10.2); Carbon Dioxide 31 mmol/L (22-29); Chloride 106 mmol/L (96-108); Creatinine Clr Calc Pharmacy 97.8; Estimated Glomerular Filt Rate > 60; Glucose Random 155 mg/dL (60-115); Potassium 4.1 mmol/L (3.3-5.1); Sodium 144 mmol/L (135-145)
[2024-09-27 07:38] LABS: HIV AB/AG Nonreactive (Nonreactive); HIV Num 1 0.06 S/CO (0.00-0.99)
[2024-09-27] MEDS: Acetaminophen 325 MG TABLET 650 MG PO (07:44)
[2024-09-27] MEDS: guaiFENesin LA 600 MG TAB.ER.12H PO (07:44)
[2024-09-27] MEDS: Cholecalciferol (Vitamin D3) 25 MCG TABLET 50 MCG PO (07:44)
[2024-09-27] MEDS: methylPREDNISolone Sod Succ 125 MG/2 ML VIAL 62.5 MG IVPUSH (07:44)
[2024-09-27] MEDS: 0.9 % Sodium Chloride Flush 3 ML SYRINGE IVFLUSH (07:45)
[2024-09-27] MEDS: Pregabalin 150 MG CAPSULE PO (07:45)
[2024-09-27] MEDS: lisinopriL 10 MG TABLET PO (07:45)
[2024-09-27] MEDS: Fluticasone Propionate Nasal 16 GM SPRAY 1 SPRAY NOSTRIL-B (07:45)
[2024-09-27] MEDS: oxyCODONE HCl Immed Release 5 MG TABLET PO (07:45)
--- NOTE | 2024-09-27 10:59 | PM.DS ---
DS: Providers Provider Date of Service: 09/27/24 Date of admission: 09/25/24 21:07 Date of discharge: 09/27/24 Primary care physician: Zev Sanders MD Consults: 09/25/24 23:30 Consult to Pulmonology Routine Consulting Provider: [facility] [place] Pulmonology Services Reason for consultation: new pulmonary nodules CT, in for atypical PNA Has provider been notified: No DS: Diagnosis Discharge Diagnosis (1) COPD (chronic obstructive pulmonary disease): Status: Acute (2) Pneumonia: Status: Acute (3) Pulmonary nodules: Status: Acute (4) Chronic respiratory failure with hypoxia: Status: Acute DS: Summary Hospital Course Hospital Course: From the history and physical by the admitting hospitalist, Jane Warren NP, 09/25/24: Patient is a 54-year-old female Gambian speaking with past medical history pneumonia, 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 Patient denies any recent travel or exposure to anyone that is been ill. Patient is up-to-date on her vaccinations. Patient has had pneumonia in the past. Patient denies productive cough. Patient has been having fever and chills but denies night sweats. Patient normally on 5 L of oxygen with ambulation and 3 L at rest. Patient did not require an increase in oxygen use. Patient denies chest pain currently. The patient did report hematuria and burning with urination, but UA is negative for any UTI. Patient was started on ceftriaxone azithromycin in the emergency department. Chest CTA completed and was negative for pulmonary embolus but did indicate bilateral lower lobe pneumonia, possible atypical pneumonia. Patient denies any issues with swallowing or aspiration. Patient denies history of PE and DVT. In addition multiple new bilateral pulmonary nodules are present. Patient does normally follow with her supervisor wet room from [facility]. Will consult Pulmonary for review. Viral studies for COVID, flu and RSV are all negative. Patient was experiencing tachycardia status post duo neb and expresses that she has tachycardia at home after doing her nebulizer treatments. Changed duo nebs to Xopenex and patient may benefit from this medication upon discharge to the home setting. Patient does have history of anxiety/depression and panic attacks. Patient currently denies any suicidal ideations. Patient states her symptoms are under control. 54yo F with COPD/asthma overlap on 3L O2 at home, HTN, mood disorder, chronic pain, GERD, HSIEH and allergic rhinitis presenting with 3d of dyspnea, fever, and ROJAS; found to have bilateral lower lobe pneumonia and pulmonary nodules. She was admitted to the telemetry unit; Hospital course by problem: bilateral pneumonia - treated with ceftriaxone + azithromycin 09/25-09/27, blood culture negative; urinary antigens for Legionella and pneumococcus pending, MRSA swab negative; HIV negative - discharged on levofloxacin for 5 days COPD/asthma overlap exacerbation - treated with IV methylprednisolone and nebulized bronchodilators; discharged on prednisone taper and should follow up with her supervisor wet room in 2 weeks pulmonary nodules - likely infectious per Pulmonology [facility] [employer] consultant Dr Renaldo Carnes; will follow up with her supervisor wet room Dr Lizbeth Mathews in [address] chest in 3 months She improved sympomatically and was discharged home and will continue oxygen 2-3L at rest. Time Attestation Discharge Coordination Time (in mins): 40 Quality: Safe Use of Opioids Does Pt have an Active Cancer Diagnosis on the Problem List?: No Quality: Stroke Does the patient have a stroke diagnosis?: No Physical Exam Vital Signs: Vital Signs: Last Vital Signs Temp 96.9 F 09/27/24 07:06 Pulse 57 09/27/24 07:11 Resp 16 09/27/24 07:11 BP 132/61 09/27/24 07:06 Pulse Ox 100 09/27/24 07:06 O2 Del Method Nasal Cannula 09/27/24 07:06 O2 Flow Rate 2 09/27/24 07:06 Oxygen Flow Rate 3 09/25/24 14:58 BMI result Body Mass Index 22.9 Gen: in no acute distress HEENT: sclera anicteric, moist mucus membranes Neck: supple Lungs: diminished Heart: regular rate and rhythm, no murmurs Abd: soft, non-tender, non-distended Ext: no edema Skin: warm/well-perfused Neuro: alert and oriented x3, no focal findings Psych: appropriate affect DS: Data Data Completed and Pending Completed studies during hospitalization [Text1]: Laboratory Results WBC 13.7 X10*3/uL (4.8-10.8) H 09/27/24 06:21 RBC 3.98 X10*6/uL (4.20-5.50) L 09/27/24 06:21 Hgb 11.4 g/dl (12.0-16.0) L 09/27/24 06:21 Hct 35.4 % (37.0-47.0) L 09/27/24 06:21 MCV 88.9 fL (80.0-98.0) 09/27/24 06:21 MCH 28.6 pg (27.0-33.0) 09/27/24 06:21 MCHC 32.2 g/dl (31.0-35.0) 09/27/24 06:21 RDW 14.2 % (11.0-16.0) 09/27/24 06:21 Plt Count 228 X10*3/uL (160-400) 09/27/24 06:21 MPV 10.2 fL (9.4-12.3) 09/27/24 06:21 Immature Gran % (Auto) 0.5 % (0.0-0.4) H 09/26/24 04:40 Neut % (Auto) 96.6 % (45-73) H 09/26/24 04:40 Lymph % (Auto) 2.0 % (20-40) L 09/26/24 04:40 [place] % (Auto) 0.7 % (2-11) L 09/26/24 04:40 Eos % (Auto) 0.0 % (0-4) 09/26/24 04:40 Baso % (Auto) 0.2 % (0-2) 09/26/24 04:40 Lymph # (Auto) 0.4 X10*3/uL (1.2-4.9) L 09/26/24 04:40 [place] # (Auto) 0.1 X10*3/uL (0.1-1.2) 09/26/24 04:40 Eos # (Auto) 0.0 X10*3/uL (0.0-0.4) 09/26/24 04:40 Baso # (Auto) 0.0 X10*3/uL (0.0-0.2) 09/26/24 04:40 Abs Immat Gran (auto) 0.10 X10*3/uL (0.00-0.03) H 09/26/24 04:40 Absolute Neuts (auto) 17.8 x10*3/uL (2.0-8.3) H 09/26/24 04:40 Absolute Nucleated RBC 0.000 X10*3/uL (0.0-0.012) 09/27/24 06:21 Nucleated RBC % (auto) 0.0 /100WBC (0.0-0.2) 09/27/24 06:21 Smear Tech's Comments VERIFIED 09/26/24 04:40 Hold Blue Top SEE NOTE 09/25/24 16:47 VBG pH 7.49 (7.32-7.43) H 09/25/24 16:57 VBG pCO2 42 mmHg 09/25/24 16:57 VBG pO2 72 mmHg 09/25/24 16:57 VBG HCO3 33 mmol/L (22-26) H 09/25/24 16:57 VBG O2 Saturation 96.0 % 09/25/24 16:57 VBG Base Excess 9.1 mmol/L 09/25/24 16:57 Sodium 144 mmol/L (135-145) 09/27/24 06:21 Potassium 4.1 mmol/L (3.3-5.1) 09/27/24 06:21 Chloride 106 mmol/L (96-108) 09/27/24 06:21 Carbon Dioxide 31 mmol/L (22-29) H 09/27/24 06:21 Anion Gap 11 (12-20) L 09/27/24 06:21 BUN 13 mg/dL (9-16) 09/27/24 06:21 Creatinine 0.52 mg/dL (0.5-1.4) 09/27/24 06:21 Estim Creat Clear Calc 97.8 09/27/24 06:21 Estimated GFR > 60 09/27/24 06:21 Random Glucose 155 mg/dL (60-115) H 09/27/24 06:21 Lactic Acid 0.9 mmol/L (0.5-2.0) 09/25/24 16:47 Calcium 9.2 mg/dL (8.4-10.2) 09/27/24 06:21 Magnesium 2.2 mg/dL (1.6-2.6) 09/26/24 04:40 Total Bilirubin 0.3 mg/dL (0.0-1.0) 09/26/24 04:40 AST 20 U/L (5-31) 09/26/24 04:40 ALT 6 U/L (0-31) 09/26/24 04:40 Alkaline Phosphatase 73 U/L (39-117) 09/26/24 04:40 Troponin I High Sens 13.9 ng/L (<3.5-17.0) D 09/25/24 15:20 B-Natriuretic Peptide 15 pg/mL (<100) 09/25/24 15:20 Total Protein 6.1 g/dL (6.5-8.0) L 09/26/24 04:40 Albumin 3.5 g/dL (3.5-5.0) 09/26/24 04:40 Procalcitonin 0.46 ng/mL 09/26/24 04:40 Urine Color Yellow 09/25/24 15:46 Urine Appearance Clear 09/25/24 15:46 Urine pH 5.5 (5.0-9.0) 09/25/24 15:46 Ur Specific [place] 1.010 (1.005-1.025) 09/25/24 15:46 Urine Protein Negative mg/dL (Neg-Trace) 09/25/24 15:46 Urine Glucose (UA) Negative mg/dL (Negative) 09/25/24 15:46 Urine Ketones Negative mg/dL (Negative) 09/25/24 15:46 Urine Blood Negative (Negative) 09/25/24 15:46 Urine Nitrite Negative (Negative) 09/25/24 15:46 Ur Leukocyte Esterase Trace (Negative) H 09/25/24 15:46 Urine RBC 0-2 /HPF (0-2) 09/25/24 15:46 Urine WBC 0-5 /HPF (0-5) 09/25/24 15:46 Ur Squamous Epith Cells 0-2 /HPF (0-2) 09/25/24 15:46 Urine Bacteria None Seen (None Seen) 09/25/24 15:46 Hyaline Casts 0-2 /LPF (0-2) 09/25/24 15:46 Urine Test NEGATIVE (NEGATIVE) 09/25/24 15:46 Nasal Screen MRSA (PCR) NEGATIVE (Negative) 09/26/24 Unknown Nasal S. aureus Screen NEGATIVE (Negative) 09/26/24 Unknown Nasal MRSA/S.aureus Interp SEE NOTE 09/26/24 Unknown HIV 1&2 Ab/P24 Ag 4thGn Nonreactive (Nonreactive) 09/27/24 06:21 Influenza Type A (PCR) NEGATIVE (Negative) 09/25/24 16:46 Influenza Type B (PCR) NEGATIVE (Negative) 09/25/24 16:46 RSV RNA Qual (PCR) NEGATIVE (Negative) 09/25/24 16:46 SARS-CoV-2 RNA (RT-PCR) NEGATIVE (Negative) 09/25/24 16:46 Discharge Plan Discharge Anticipated Discharge Date/Time: 09/27/24 10:54 Patient Disposition: Home, Self-Care Discharge Diagnosis: pulmonary nodules, likely infectious pneumonia COPD exacerbation Referrals: Erickson Mathews MD [Physician, Pulmonology] - 2 Weeks Zev Sanders MD [Primary Care Provider, Medical] - 1 Week Discharge Medications: New prednisone 10 mg tablet 10 mg PO DIRECTED Qty: 40 0RF Rx Instructions: 40 mg (4 tabs) daily x 4 days, then 30 mg (3 tabs) daily x 4 days, then 20 mg (2 tabs) daily x 4 days, then 10 mg (1 tab) daily x 4 days levofloxacin 750 mg tablet 750 mg PO DAILY Qty: 5 0RF Continued montelukast 10 mg tablet 10 mg PO BEDTIME Qty: 30 3RF albuterol sulfate [Ventolin HFA] 90 mcg/actuation HFA aerosol inhaler 2 puff inhalation QID PRN (Reason: for wheezing) Qty: 18 3RF lisinopril 10 mg tablet 10 mg PO DAILY pregabalin 150 mg Capsule 150 mg PO BID budesonide-formoterol [Symbicort] 160-4.5 mcg/actuation HFA aerosol inhaler 2 puff inhalation BID Spiriva Respimat 2.5 mcg/actuation mist 2 puff inhalation DAILY ipratropium-albuterol 0.5 mg-3 mg(2.5 mg base)/3 mL solution for nebulization 3 ml inhalation Q6H PRN (Reason: for wheezing) quetiapine [Seroquel] 100 mg tablet 100 mg PO BEDTIME mirtazapine 45 mg tablet 45 mg PO BEDTIME esomeprazole magnesium 40 mg capsule,delayed release(DR/EC) 40 mg PO DAILY@0630 cholecalciferol (vitamin D3) 50 mcg (2,000 unit) tablet 50 mcg PO DAILY oxycodone 5 mg tablet 5 mg PO TID PRN (Reason: pain) 30 Days Qty: 90 0RF Rx Instructions: Partial Fill upon patient request. naloxone [Narcan] 4 mg/actuation spray,non-aerosol 4 mg intranasal Q2M PRN (Reason: opioid overdose) Qty: 2 0RF Rx Instructions: spray 1 dose into ONE nostril; alternate nostrils w each dose until help arrives Held prednisone 5 mg tablet 5 mg PO DAILY Qty: 30 3RF Hold Instructions: Resume on 10/14/24. Discharge Orders: Discharge Order (Routine); Ordered 09/27/24 Ordered By: Vitaly Carlton Diet: Advance to usual diet Activity on Discharge: As tolerated Stand Alone Forms: Patient Portal Discharge page Print Language: Belarusian Care Plan Goals: lung health Health Concerns: pulmonary nodules, likely infectious pneumonia COPD exacerbation Plan of Treatment: levofloxacin 750 mg daily x 5 days prednisone taper as follows: - 40 mg (4 tabs) daily x 4 days, then 30 mg (3 tabs) daily x 4 days, then 20 mg (2 tabs) daily x 4 days, then 10 mg (1 tab) daily x 4 days follow up with [facility] [place] Pulmonology in [address] chest in 3 months Please follow up with your primary care doctor within 1 week. Return to the hospital if you experience recurrent or worsening symptoms. Assessment: See Discharge Summary.
--- NOTE | 2024-09-27 11:15 | MHC.CM.PN ---
Pt has been medically cleared to [place], she will go home via private transport, plan is self care.
[2024-09-27 11:39] VITALS: PULSE 57; RESP 16; O2SAT 96
[2024-09-30 01:18] LABS: Strep Pneumo Ag urine Not Detected (Not Detected)
[2024-10-04 01:08] LABS: Legionella Ag Urine Not Detected (Not Detected)
== END 2024-09-27 12:03 | disposition home or self-care (01) | DRG 139 ==
LOC: HO.ED 21:09 → HO.EDOVER 21:12 → HO.IMC 23:33
PROVIDERS: Nurse Practitioner Family; Admitting Provider Internal Medicine; Emergency Provider Emergency Medicine Emergency Medical Services; PCP Internal Medicine; Visit Provider Family Medicine
DX: J18.9 Pneumonia, unspecified organism (principal); J96.11 Chronic respiratory failure with hypoxia; Z99.81 Dependence on supplemental oxygen; J45.901 Unspecified asthma with (acute) exacerbation; E83.42 Hypomagnesemia; G89.4 Chronic pain syndrome; R51.9 Headache, unspecified; J43.9 Emphysema, unspecified; I10 Essential (primary) hypertension; R91.8 Other nonspecific abnormal finding of lung field; Z20.822 Contact with and (suspected) exposure to COVID-19; Z79.52 Long term (current) use of systemic steroids; Z87.891 Personal history of nicotine dependence; Z79.899 Other long term (current) drug therapy
CPT/HCPCS: 0241U; 36415; 71045; 71275; 74177; 80048; 80053; 81001; 81003; 81025; 82803; 83605; 83735; 83880; 84145; 84484; 85025; 85027; 87040; 87389; 87449; 87640; 87641; 87899; 93005; 94640; 99285; J0456; J0696; J1650; J2919; J3475; J7120; Q9967

== ENCOUNTER → 2024-09-25 15:36 | Outpatient (BNV) | payer MEDICAID, SELFPAY | PROVIDERS: Admitting Provider Internal Medicine; Emergency Provider Emergency Medicine Emergency Medical Services; PCP Internal Medicine; Visit Provider Internal Medicine | DX: R94.31 Abnormal electrocardiogram [ECG] [EKG] (principal); R00.0 Tachycardia, unspecified | CPT/HCPCS: 93010 ==

== ENCOUNTER → 2024-09-25 16:25 | Outpatient (BNV) | payer MEDICAID, SELFPAY | PROVIDERS: Emergency Provider Emergency Medicine Emergency Medical Services; PCP Internal Medicine; Visit Provider Radiology Diagnostic Radiology | DX: R10.9 Unspecified abdominal pain (principal); R91.8 Other nonspecific abnormal finding of lung field | CPT/HCPCS: 71045; 71275; 74177 ==

== ENCOUNTER → 2024-09-25 21:07 | Outpatient (BNV) | payer MEDICAID, SELFPAY | PROVIDERS: Admitting Provider Internal Medicine; Emergency Provider Emergency Medicine Emergency Medical Services; PCP Internal Medicine; Visit Provider Nurse Practitioner Family | DX: J44.1 Chronic obstructive pulmonary disease with (acute) exacerbation (principal); J18.9 Pneumonia, unspecified organism | CPT/HCPCS: 99223; 99232 ==

== ENCOUNTER → 2024-09-25 21:07 | Outpatient (BNV) | payer MEDICAID, SELFPAY | PROVIDERS: Admitting Provider Internal Medicine; Emergency Provider Emergency Medicine Emergency Medical Services; PCP Internal Medicine; Visit Provider Internal Medicine Pulmonary Disease | DX: J44.9 Chronic obstructive pulmonary disease, unspecified (principal); J18.9 Pneumonia, unspecified organism; R91.8 Other nonspecific abnormal finding of lung field | CPT/HCPCS: 99223 ==

== ENCOUNTER 2024-10-06 14:36 | Outpatient (AMB) | payer MEDICAID, SELFPAY ==
--- NOTE | 2024-10-06 14:40 | MHC.OFFVIS ---
Vital Signs 10/06/24 14:41 Height 5 ft 2 in Weight 122 lb 5.705 oz BMI 22.4 BP 126/70 Blood Pressure Location Lt brachial Position Sitting Pulse 92 Pulse Source Pulse Oximeter Pulse Oximetry (%) 97 Oxygen Delivery Method Nasal Cannula Oxygen Flow Rate 2 Intake Visit Reasons: c f/u Intake Note: Pt states seen at [facility] [place] [facility] [place]. Pt c/o intermittent CP and some SOB. Pt is feeling better. Allergies Penicillins (PENICILLINS) Allergy (Severe, Verified 10/06/24 15:21) RASH seafood Allergy (Verified 10/06/24 15:21) Rash Medication List - Last Reconciled 10/06/24 by Erickson Mathews MD albuterol sulfate 90 mcg/actuation (Ventolin HFA) 2 puffs inhalation QID PRN budesonide-formoterol 160-4.5 mcg/actuation (Symbicort) 2 puffs inhalation BID cholecalciferol (vitamin D3) 50 mcg PO DAILY esomeprazole magnesium 40 mg PO DAILY@629 ipratropium-albuterol 0.5 mg-3 mg(2.5 mg base)/3 mL 3 mL inhalation Q6H PRN lisinopril 10 mg PO DAILY mirtazapine 45 mg PO BEDTIME montelukast 10 mg PO BEDTIME naloxone 4 mg/actuation (Narcan) 4 mg intranasal Q2M PRN oxycodone 5 mg PO TID PRN 30 days prednisone 10 mg PO DIRECTED prednisone 5 mg PO DAILY Held on 09/27/24. Instructions: Resume on 10/14/24. pregabalin 150 mg PO BID quetiapine (Seroquel) 100 mg PO BEDTIME tiotropium bromide 2.5 mcg/actuation (Spiriva Respimat) 2 puffs inhalation DAILY Do you need a note to return to daycare/school/sports/work: No HPI HPI [facility] [place] f/u: Details: Deysi 54 years old female, with advanced COPD/ongoing respiratory failure/on O2 24 hours a day. Had another hospitalization at [facility] from 09/25-09/27 and treated for an acute exacerbation of COPD, probably secondary to atypical pneumonia. She was sent home on a tapering dose of prednisone which she will be completing in the next 4 days. Then she will go to her maintenance dose of 5 mg daily and she is to continue all the other medications as before. ,She is weaker than usual walks with a walker, uses O2 3 L/minute at rest and 5 L/minute when she is outdoors. Currently does not have any fever or chills and cough is back to her baseline. [facility] Medical History Current non-smoker but past smoking history unknown Respiratory failure with hypoxia COPD exacerbation Pre-op examination History of OCD (obsessive compulsive disorder) History of panic attacks Anxiety and depression Radiculopathy, lumbar region HTN (hypertension) Sacroiliitis COPD (chronic obstructive pulmonary disease) Asthma Allergic rhinitis Disc degeneration, lumbar Surgical History History of surgery History of appendectomy Hx of tonsillectomy Status post excision of lipoma History of tubal ligation Hx of excision of mass History of surgery History of laparoscopic cholecystectomy History of esophagogastroduodenoscopy (EGD) History of umbilical hernia repair History of incision and drainage Family History Family/Other Cervical cancer Family/Other Stomach cancer Social History Household Members: Significant Other and Family Household Members Other:: grandson Housing: House Do you presently have visiting nurse or other home services: No Alcohol intake: never Comment: Significant other bedside Patient Tobacco Use Status: Former Tobacco user Tobacco use type: Cigarette Substance Use Type: Marijuana Advance Directives Date on File: 04/09/24 service: No Current occupational status: unemployed Sexual orientation: Straight/Heterosexual Gender identity: Female Review of Systems Const All systems reviewed & are unremarkable except as noted in HPI and below Eyes Reports no additional complaints ENT Reports nasal congestion and Reports nasal discharge (OFF AND ON) Card Denies chest pain, Denies irregular heart rhythm and Denies leg edema Resp Reports as per HPI GI Reports no additional complaints Reports no additional complaints Musc Reports back pain and Reports arthralgias Skin/Breast Reports system reviewed and no additional complaints, except as documented Neuro Reports no additional complaints Psych Reports depression (Mild) Endo Reports no additional complaints Physical Exam Vital Signs: Last Vital Signs Pulse 92 10/06/24 14:41 BP 126/70 10/06/24 14:41 Pulse Ox 97 10/06/24 14:41 Oxygen Delivery Method Nasal Cannula 10/06/24 14:41 Oxygen Flow Rate 2 10/06/24 14:41 BMI result Body Mass Index 22.4 Const General: comfortable, no acute distress, alert and awake Orientation/consciousness: patient oriented x3 HEENT Head: Yes normal to inspection General nose exam: No nasal polyps present, No nasal discharge present and Other nasal findings present (Mild bilateral nasal congestion) Face and sinus: Yes sinuses nontender Mouth: oropharynx normal Throat: Yes posterior oropharynx normal Eyes General: appearance normal, both eyes and all related structures Neck Neck: Yes normal visual inspection, Yes no lymphadenopathy, Yes trachea midline and Yes no JVD Thyroid: Thyroid normal Chest Chest palpation & inspection: normal inspection of the chest, normal palpation of entire chest wall and no tenderness Resp Other: Percussion note is HYPER RESONANT , she does have good breath sounds on both sides but quite distant with prolonged expiratory phase. No audible wheezes or rhonchi heard. Cardio Palpation: normal PMI Rate: regular rate Rhythm: regular rhythm Heart sounds: no gallops and no murmurs Peripheral pulses: Peripheral pulses 2+ throughout GI Palpation (GI): Soft to palpation, nontender, No hepatosplenomegaly present and no masses Auscultation: normal bowel sounds Back/Spine/Pelvis Thoracic/Lumbar Spine: thoracic and lumbar spine normal to inspection and thoraco-lumbar ROM limited Skin General skin exam: no rashes or lesions noted Neuro General: patient oriented x3 and no focal motor deficits Cranial nerves: Yes CN's II-XII intact bilaterally Extrem General: Yes normal to inspection, Yes no clubbing, cyanosis or edema and Yes no calf tenderness Psych Appearance: grossly normal and well kempt Speech and movement: Normal speech and movement present Assessment & Plan Assessment & Plan (1) COPD exacerbation: Comment: Patient has very advanced chronic obstructive pulmonary disease, 10/16/21 ( FVC 56% FEV1 19% FEV1/FVC ratio is 28, FEF 25-75 only 6. ) There was minimal response to bronchodilator therapy Her symptoms got worse and she has been started on O2 2 L/minute since her last visit. She is feeling the same but I think she appears somewhat better. Plan is to continue her on the current regimen: Prednisone 5 mg daily Symbicort 160-4.5 2 puffs b.i.d. Spiriva Respimat 2.5 mg 2 inhalations daily. Albuterol HFA 2 puffs Q 4-6 hours p.r.n.. Code(s): J44.1 - Chronic obstructive pulmonary disease with (acute) exacerbation Category: Medical (2) Pneumonia: Code(s): J18.9 - Pneumonia, unspecified organism Category: Medical Qualifiers: Laterality: bilateral Lung location: lower lobe of lung Pneumonia type: due to unspecified organism Qualified Code(s): J18.9 - Pneumonia, unspecified organism (3) Pulmonary nodules: Code(s): R91.8 - Other nonspecific abnormal finding of lung field Category: Medical Orders: Orders CT chest wo IV con 3 Months J18.9 - Pneumonia, unspecified organism, R91.8 - Other nonspecific abnormal finding of lung field Medications: New prednisone 5 mg PO DAILY 30 tabs 5RF severe COPD 30 days Coding Level of Care Code Est Pt Level 3 (32112) Diagnoses COPD exacerbation J44.1 Pneumonia of both lower lobes due to infectious organism J18.9 Laterality: bilateral Lung location: lower lobe of lung Pneumonia type: due to unspecified organism Pulmonary nodules R91.8
[2024-10-06 14:41] VITALS: BP 126/70; PULSE 92; O2SAT 97; BMI 22.4
--- OUTSIDE RECORDS SUMMARY | 2024-10-06 15:09 | XMS_ITS | Clinical Summary ---
Author Organization [employer] Address [address] [place] [address] [address] [place] [address] Care Team Providers Care Chairman Emeritus Name Role Phone Zev Sanders MD Primary Care Provider [phone] Michelle Quiroz RN Unavailable [phone] Gonzalo Lima Unavailable Allergies No known active allergies Medications tiotropium (Spiriva Respimat) 2.5 MCG/ACT inhalerIndicat ions:COPD (chronic obstructive pulmonary disease) case management patient ([facility]) INHALE TWO PUFF BY MOUTH [...] Encounters Date Type Department Care Team Description 10/06/2024 Refill [facility] [address] [place] [address] Zev Sanders MD Chronic low back pain, unspecified back pain laterality, unspecified whether sciatica present 10/04/2024 Telephone [facility] [address] [facility] [place] [phone] Zev Sanders MD ER Follow-up 10/04/2024 Travel 10/04/2024 Patient Outreach [address] [address] Zev Sanders MD Care Coordination ([facility]/Palak Lima, initial oureach_assessment scheduled) 10/04/2024 Patient Outreach [address] [address] Zev Sanders MD Care Coordination ([facility]/Palak Lima, Chart review) 10/04/[address] [address] Zev Sanders MD Nurse Triage 10/04/2024 Patient Outreach [facility] [address] [place] [address] Zev Sanders MD Care Coordination ([facility] chart review) 10/04/2024 Patient Outreach [address] [address] Zev Sanders MD 09/30/2024 Patient Outreach [address] [address] Zev Sanders MD Transition Of Care (Tcm) ([facility] unscheduled LVM ) 09/28/2024 Patient Outreach [address] [address] Zev Sanders MD Transition Of Care (Tcm) ([facility] unscheduled LVM ) 09/25/2024 Orders Only GENERIC EXTERNAL DATA DEPARTMENT Provider, Generic External Data 09/06/2024 Refill [facility] [address] [place] [address] Zev Sanders MD Chronic low back pain, unspecified back pain laterality, unspecified whether sciatica present 09/06/2024 Refill [facility] [address] [place] [address] Zev Sanders MD Chronic low back pain, unspecified back pain laterality, unspecified whether sciatica present 08/10/2024 Telephone [facility] [address] [place] [address] Zev Sanders MD No Show 08/10/2024 Patient Outreach [facility] [address] [place] [address] Zev Sanders MD Care Coordination (C3/CM Outreach) 08/05/2024 Refill [facility] [address] [place] [address] Zev Sanders MD Chronic low back pain, unspecified back pain laterality, unspecified whether sciatica present 07/23/2024 Patient Outreach [facility] [address] [place] [address] Zev Sanders MD Care Coordination (C3/CM Outreach) 07/23/2024 Patient Outreach [facility] [address] [place] [address] Zev Sanders MD 07/13/2024 Patient Outreach [address] [address] Zev Sanders MD Care Coordination (C3/CM Outreach) 07/08/2024 Patient Outreach [address] [address] Zev Sanders MD Care Coordination (C3/CM Outreach) 07/08/2024 Refill [facility] [address] [place] [address] Zev Sanders MD 07/07/2024 Refill [facility] [address] [place] [address] Zev Sanders MD Chronic low back pain, unspecified back pain laterality, unspecified whether sciatica present from Last 3 Months Immunizations Immunization Administration [...] Cigarettes 1 - 2019 Smokeless Tobacco: Never Tobacco Cessation:Counseling [...] 84 05/10/2024 1:17 PM EST Temperature 36.6 C (97.8 F) 05/10/2024 1:17 PM EST Respiratory Rate 19 10/14/2023 11:08 AM EDT [...] Care Team (Late st Contact Info) Description 10/15/2024 1:30 PM EDT Office Visit [facility] [address] [place], [place] [phone] Zev Sanders MD [address] [place] [address] Health Maintenance Due Date Last Done Comments [...] 04/29/2024 Depression Screening 10/13/2024 10/14/2023, 10/14/19 24 Influenza Vaccine (#1) 2024 , 01/23/2023, 12/19/2017, Additional history exists Disability Screening 05/01/2025 05/01/2024 Tobacco Screening 05/10/2025 05/10/2024 Colorectal Cancer Screening 03/10/2026 FIT DNA/Cologuard 03/10/2026 03/10/2023 DTaP/Tdap/Td Vaccines (2 - Td or Tdap) 04/29/2026 04/29/2016 Lipid Panel 11/12/2026 11/12/2021 Cervical Cancer Screening 01/15/2027 HPV/Cotest 01/15/2027 01/15/2022, 12/29, 11/12/2021 Pap Smear 01/15/2027 01/15/2022, 11/12/2021 RSV Patients and Patients Aged 60 years or older (1 - 1-dose 75+ series) 2045 Hepatitis C Screening Completed 11/12/2021 Pneumococcal Vaccine: 50+ Years Completed 04/29/2024, 12/19/2017 [...] Procedure Name Priority Date/Time Associated Diagnosis Comments CTA CHEST PE PROTOCAL Routine 09/25/2024 7:[address] ABDOMEN PELVIS W CONTRAST Routine 09/25/2024 7:23 PM EDT XR CHEST 1 VIEW Routine 09/25/2024 6:04 PM EDT VENOUS BLOOD GAS Routine 09/25/2024 4:57 PM EDT LACTIC ACID Routine 09/25/2024 4:47 PM EDT HOLD LT BLUE - POSSIBLE COAG Routine 09/25/2024 4:47 PM EDT SARS COV2/INFLUENZA A/B AND RSV RNA QL NAAT Routine 09/25/2024 4:46 PM EDT URINALYSIS, COMPLETE, WITH REFLEX TO CULTURE Routine 09/25/2024 3:46 PM EDT HCG, QL, URINE Routine 09/25/2024 3:46 PM EDT LAB COLOGUARD COLON CANCER SCREEN Routine 03/10/2023 2:14 PM [...] Recently Relevant to Health Maintenance Results * CTA Chest PE Protocal (09/25/2024 7:40 PM EDT) Anatomical Region Laterality Modality Body, Chest Computed Tomogra phy 09/25/2024 7:40 PM EDT Narrative 09/25/2024 7:42 PM EDT [place] [address] CT Scan Report Signed Patient: Deysi Pfeiffer MR#: [id number] : 1970 Acct:[id number] Age/Sex: 54 / F ADM Date: 09/25/24 Loc: .ED Attending Dr: Ordering Physician: Madeleine Aparicio MD Date of Service: 09/25/24 Procedure(s): CT angio chest PE protocol Accession Number(s): [id number] cc: Zev Sanders MD; Madeleine Aparicio MD Report Number: [id number]: Total DLP = 579.00 mGy-cm CLINICAL HISTORY: cough cp weakness CT angiography chest with contrast. 3D Postprocessing. Comparison: CT/SR - CT ANGIO CHEST PE PROTOCOL - 06/19/24 15:28 EDT Findings: The heart size is normal. RV/LV ratio is normal. Coronary artery calcifications are present. The thoracic aorta is normal caliber. No acute pulmonary embolus. The visualized thyroid and mediastinum are unremarkable. There is a background of severe centrilobular emphysema. There are multiple bilateral pulmonary nodules. Largest nodules are described: In the right upper lobe there is a spiculated nodule measuring 1.3 x 0.8 cm, series 8, image 63, new. In the right lower lobe there is a spiculated nodule with retraction of the adjacent pleura measuring 2.0 x 1.4 cm, series 8, image 75, previously an area of inflamed appearing bronchiectasis. There is a large platelike area of scarring in the right middle lobe anteriorly. There is also a 9 mm pulmonary nodule, series 10, image 41 in the right middle lobe, not seen previously. There was an area of consolidation in this area previously. Large platelike area of atelectasis or scarring in the left lingula. There is a patchy areas of consolidation in the right lower lobe as well as areas of tree-in-bud nodularity in the posterior right middle lobe. Some peripheral consolidation is present in the left lower lobe in conjunction with tree-in-bud nodules. The upper abdomen is unremarkable. No acute fractures. IMPRESSION: 1. No pulmonary emboli. 2. Bilateral lower lobe areas of consolidation tree-in-bud nodules concerning for infection such as pneumonia. Atypical infection or chronic infection could have a similar appearance. 3. Multiple new bilateral pulmonary nodules, largest measuring 2.0 cm in the right lower lobe. Per Fleischner criteria 9 mm or larger nodules should consider 3-[address] follow-up. For low risk 18-24 month follow-up is optional, whereas for high risk it is needed. These may represent areas of scarring related to previous infection, however follow-up recommended. This document has been electronically signed by: Nathan Mccullough MD on 09/25/2024 19:40:49 Dictated By: Nathan Mccullough MD Signed By: <Electronically signed by Nathan Mccullough MD in OV> 09/25/241941 DD/ 39 TD/TT: 09/25/241939 Hydraulic Modeling Engineer: Procedure Note Donotuseinterpreter, Image - 09/25/[address] [place] [address] [address] Scan Report Signed Patient: Deysi Pfeiffer DMR#: [id number] : 1970Acct:[id number] Age/Sex: 54 / FADM Date: 09/25/24 Loc: HO.ED Attending Dr: Ordering Physician: Madeleine Aparicio MD Date of Service: 09/25/24 Procedure(s): CT angio chest PE protocol Accession Number(s): [id number] cc: Zev Sanders MD; Madeleine Aparicio MD Report Number: [id number]: Total DLP = 579.00 mGy-cm CLINICAL HISTORY: cough cp weakness CT angiography chest with contrast. 3D Postprocessing. Comparison: CT/SR - CT ANGIO CHEST PE PROTOCOL - 06/19/24 15:28 EDT Findings: The heart size is normal. RV/LV ratio is normal. Coronary artery calcifications are present. The thoracic aorta is normal caliber. No acute pulmonary embolus. The visualized thyroid and mediastinum are unremarkable. There is a background of severe centrilobular emphysema. There are multiple bilateral pulmonary nodules. Largest nodules are described: In the right upper lobe there is a spiculated nodule measuring 1.3 x 0.8 cm, series 8, image 63, new. In the right lower lobe there is a spiculated nodule with retraction of the adjacent pleura measuring 2.0 x 1.4 cm, series 8, image 75, previously an area of inflamed appearing bronchiectasis. There is a large platelike area of scarring in the right middle lobe anteriorly. There is also a 9 mm pulmonary nodule, series 10, image 41 in the right middle lobe, not seen previously. There was an area of consolidation in this area previously. Large platelike area of atelectasis or scarring in the left lingula. There is a patchy areas of consolidation in the right lower lobe as well as areas of tree-in-bud nodularity in the posterior right middle lobe. Some peripheral consolidation is present in the left lower lobe in conjunction with tree-in-bud nodules. The upper abdomen is unremarkable. No acute fractures. IMPRESSION: 1. No pulmonary emboli. 2. Bilateral lower lobe areas of consolidation tree-in-bud nodules concerning for infection such as pneumonia. Atypical infection or chronic infection could have a similar appearance. 3. Multiple new bilateral pulmonary nodules, largest measuring 2.0 cm in the right lower lobe. Per Fleischner criteria 9 mm or larger nodules should consider 3-[address] follow-up. For low risk 18-24 month follow-up is optional, whereas for high risk it is needed. These may represent areas of scarring related to previous infection, however follow-up recommended. This document has been electronically signed by: Nathan Mccullough MD on 09/25/2024 19:40:49 Dictated By: Nathan Mccullough MD Signed By: <Electronically signed by Nathan Mccullough MD in OV> 09/25/241941 DD/ 39 TD/TT: 09/25/241939 Hydraulic Modeling Engineer: [facility] External Provider IMG CT PROCEDURES Edited Result - Final * CT Abdomen Pelvis w/ Contrast (09/25/2024 7:23 PM EDT) Anatomical Region Laterality Modality Body, Pelvis, Abdomen Computed T omography 09/25/2024 7:23 PM EDT Narrative 09/25/2024 7:25 PM EDT [place] [address] CT Scan Report Signed Patient: Deysi Pfeiffer MR#: [id number] : 1970 Acct:[id number] Age/Sex: 54 / F ADM Date: 09/25/24 Loc: HO.ED Attending Dr: Ordering Physician: Madeleine Aparicio MD Date of Service: 09/25/24 Procedure(s): CT abdomen pelvis w IV con Accession Number(s): [id number] cc: Zev Sanders MD; Madeleine Aparicio MD Report Number: [id number]: Total DLP = 579.00 mGy-cm CLINICAL HISTORY: abd pain, flank pain CT abdomen and pelvis with contrast Comparison: 06/19/2024 Findings: Please see same-day CTA chest for discussion of chest findings. Gallbladder is absent. The liver, spleen, adrenal glands, pancreas and kidneys are unremarkable. No hydronephrosis. No ureteral stones. No bowel obstruction, pneumoperitoneum, or pneumatosis. Moderate fecal loading in the colon. The cecum is hypermobile and in the midabdomen. Appendix not visualized. No inflammatory change in the region of the cecum. Wall calcifications of the abdominal aorta. No aortic aneurysm. Pelvic contents unremarkable. Uterus is retroverted. Urinary bladder is normal. Degenerative changes of the lower lumbar spine are present. Anterior abdominal wall is intact. IMPRESSION: No acute findings. This document has been electronically signed by: Nathan Mccullough MD on 09/25/2024 19:23:10 Dictated By: Nathan Mccullough MD Signed By: <Electronically signed by Nathan Mccullough MD in OV> 09/25/241923 DD/ 22 TD/TT: 09/25/241922 Hydraulic Modeling Engineer: Procedure Note Donotuseinterpreter, Image - 09/25/[address] [place] [address] [address] Scan Report Signed Patient: Deysi Pfeiffer DMR#: [id number] : 1970Acct:[id number] Age/Sex: 54 / FADM Date: 09/25/24 Loc: HO.ED Attending Dr: Ordering Physician: Madeleine Aparicio MD Date of Service: 09/25/24 Procedure(s): CT abdomen pelvis w IV con Accession Number(s): [id number] cc: Zev Sanders MD; Madeleine Aparicio MD Report Number: [id number]: Total DLP = 579.00 mGy-cm CLINICAL HISTORY: abd pain, flank pain CT abdomen and pelvis with contrast Comparison: 06/19/2024 Findings: Please see same-day CTA chest for discussion of chest findings. Gallbladder is absent. The liver, spleen, adrenal glands, pancreas and kidneys are unremarkable. No hydronephrosis. No ureteral stones. No bowel obstruction, pneumoperitoneum, or pneumatosis. Moderate fecal loading in the colon. The cecum is hypermobile and in the midabdomen. Appendix not visualized. No inflammatory change in the region of thececum. Wall calcifications of the abdominal aorta. No aortic aneurysm. Pelvic contents unremarkable. Uterus is retroverted. Urinary bladder is normal. Degenerative changes of the lower lumbar spine are present. Anterior abdominal wall is intact. IMPRESSION: No acute findings. This document has been electronically signed by: Nathan Mccullough MD on 09/25/2024 19:23:10 Dictated By: Nathan Mccullough MD Signed By: <Electronically signed by Nathan Mccullough MD in OV> 09/25/241923 DD/ 22 TD/TT: 09/25/241922 Hydraulic Modeling Engineer: [facility] External Provider IMG CT PROCEDURES Edited Result - Final * XR Chest 1 View (09/25/2024 6:04 PM EDT) Anatomical Region Laterality Modality Chest Radiographic Joy ging 09/25/2024 6:04 PM EDT Narrative 09/25/2024 6:05 PM EDT [place] [address] XRay Report Signed Patient: Deysi Pfeiffer MR#: [id number] : 1970 Acct:[id number] Age/Sex: 54 / F ADM Date: 09/25/24 Loc: HO.ED Attending Dr: Ordering Physician: Madeleine Aparicio MD Date of Service: 09/25/24 Procedure(s): XR chest 1V Accession Number(s): [id number] cc: Zev Sanders MD; Madeleine Aparicio MD CLINICAL HISTORY: sob 1 view chest x-ray Comparison: 06/30/2024 Findings: There is new patchy reticular opacities in the mid and lower lung barrett. No effusion or pneumothorax. Lung apices are hyperlucent suggesting emphysema. Normal size heart. No acute fracture. IMPRESSION: New bilateral patchy opacities in the mid and lower lung barrett concerning for infection, pulmonary edema or interstitial lung disease. This document has been electronically signed by: Nathan Mccullough MD on 09/25/2024 18:04:07 Dictated By: Nathan Mccullough MD Signed By: <Electronically signed by Nathan Mccullough MD in OV> 09/25/241804 DD/ 03 TD/TT: 09/25/241803 Hydraulic Modeling Engineer: Procedure Note Donotuseinterpreter, Image - 09/25/[address] [address] XRay Report Signed Patient: Deysi Pfeiffer DMR#: [id number] : 1970Acct:[id number] Age/Sex: 54 / FADM Date: 09/25/24 Loc: .ED Attending Dr: Ordering Physician: Madeleine Apraicio MD Date of Service: 09/25/24 Procedure(s): XR chest 1V Accession Number(s): [id number] cc: Zev Sanders MD; Madeleine Aparicio MD CLINICAL HISTORY: sob 1 view chest x-ray Comparison: 06/30/2024 Findings: There is new patchy reticular opacities in the mid and lower lung barrett. No effusion or pneumothorax. Lung apices are hyperlucent suggesting emphysema. Normal size heart. No acute fracture. IMPRESSION: New bilateral patchy opacities in the mid and lower lung barrett concerning for infection, pulmonary edema or interstitial lung disease. This document has been electronically signed by: Nathan Mccullough MD on 09/25/2024 18:04:07 Dictated By: Nathan Mccullough MD Signed By: <Electronically signed by Nathan Mccullough MD in OV> 09/25/241804 DD/ 03 TD/TT: 09/25/241803 Hydraulic Modeling Engineer: [facility] External Provider IMG XR PROCEDURES Final Result * (ABNORMAL) VENOUS BLOOD GAS (09/25/2024 4:57 PM EDT) VBG pH 7.49(H) 7.32 - 7.43 [facility] Comment:METER #: [id number] additional_comment: Joshua weber VBG PCO2 42 mmHg [facility] Comment:METER #: [id number] additional_comment: Joshua weber VBG PO2 72 mmHg [facility] Comment:METER #: [id number] additional_comment: Cb tia VBG Base Excess 9.1 mmol/L [facility] Comment:METER #: [id number] additional_comment: Joshua weber VBG HCO3 33(H) 22 - 26 mmol/L [facility] Comment:METER #: [id number] additional_comment: Cb tia O2 Sat, Lefty 96.0 % [facility] Comment:METER #: [id number] additional_comment: Joshua weber 09/25/2024 4:57 PM EDT 09/25/2024 5:04 PM EDT us Generic External Data Provider LAB BLOOD ORDERAB LES Final Result Performing Organization Address City/[facility]/ZIP Co de Phone Number [facility] [address] [place] [phone] * HOLD LT BLUE - POSSIBLE COAG (09/25/2024 4:47 PM EDT) [facility] Hold Lt Blue - Possible Coag SEE NOTE [facility] Comment:Specimen will be hel d untested for 4 hours. Call Hematologyif testing is desired. 09/25/2024 4:47 PM EDT 09/25/2024 5:06 PM EDT us Generic External Data Provider LAB BLOOD ORDERAB LES Final Result Performing Organization Address [facility]/ZIP Co de Phone Number [facility] [address] [place] [address] [phone] * Lactic Acid (09/25/2024 4:47 PM EDT) [facility] Lactic Acid 0.9 0.5 - 2.0 mmol/L [facility] 09/25/2024 4:47 PM EDT 09/25/2024 4:55 PM EDT Generic External Data Provider LAB BLOOD ORDERAB LES Final Result Performing Organization Address [facility]/ZIP Co de Phone Number [facility] [address] [place] [phone] * SARS-CoV-2 RNA, Influenza A/B, and RSV RNA, Ql NAAT (09/25/2024 4:46 PM EDT) [facility] Influenza A PCR NEGATIVE Negative [facility] Influenza B PCR NEGATIVE Negative [facility] Resp Syncy Virus RNA Qual PCR NEGATIVE Negative [facility] SARS COV2 PCR NEGATIVE Negative [facility] Comment:All test results mus t [...] use by authorized laboratories.Testing performed on the [employer] GeneXpert utilizingreal-time RT-PCR.All SARS CoV2 and positive influenza A/B results arereported to [facility]. 09/25/2024 4:46 PM EDT 09/25/2024 4:55 PM EDT Generic External Data Provider LAB MICROBIOLOGY - GENERAL ORDERABLES Final Result Performing Organization Address City/[facility]/ZIP Co de Phone Number [facility] [address] [place] [phone] * (ABNORMAL) Urinalysis, Complete, with Reflex to Culture (09/25/2024 3:46 PM EDT) Pathologist [facility] Color Urine Yellow [facility] Appearance Urine Clear [facility] PH 5.5 5.0 - 9.0 [facility] Glucose Urine UA Negative Negative mg/dL [facility] Urine Blood Negative Negative [facility] Specific [place] - Urine 1.010 1.005 - 1.025 [facility] Urine Protein Negative Neg-Trace mg/dL [facility] Urine Ketones Negative Negative mg/dL [facility] Nitrite Urine Negative Negative [facility] Leukocyte Esterase Urine Trace(A) Negative [facility] RBC Urine 0-2 0 - 2 /HPF [facility] Urine WBC 0-5 0 - 5 /HPF [facility] Urine Squamous Epithelial Cell 0-2 0 - 2 /HPF [facility] Urine Bacteria None Seen None Seen [facility] Hyaline Casts, Urine 0-2 0 - 2 /LPF [facility] 09/25/2024 3:46 PM EDT 09/25/2024 3:49 PM EDT Narrative [facility] - 09/25/2024 4:22 PM EDT Urine, Clean Catch us Generic External Data Provider LAB URINE ORDERAB LES Final Result Performing Organization Address [facility] Co de Phone Number [facility] [address] [place] [phone] * HCG, Qualitative, Urine (09/25/2024 3:46 PM EDT) Urine NEGATIVE NEGATIVE [facility] Comment:This test was develo ped to detect early . Falsenegative results may occur after the 5th - 7th week ofpregnancy when using this test method. If clinicallyindicated, consider a serum hCG. 09/25/2024 3:46 PM EDT 09/25/2024 3:49 PM EDT us Generic External Data Provider LAB URINE ORDERAB LES Final Result [facility] [address] [place] [address] [phone] * Cologuard?? colon cancer screening (03/10/2023 2:14 PM EST) Cologuard Result Negative Negative 03/21/20 1:56 AM EST [facility] (CLIA #:[id number]) Comment: NEGATIVE TEST RESULT. A negative Cologuard result indicates a low likelihood that a colorectal cancer (CRC) or advanced adenoma (adenomatous polyps with more advanced pre-malignant features) is present. The chance that a person with a negative Cologuard test has a colorectal cancer is less than 1 in 1500 (negative predictive value >99.9%) or has an advanced adenoma is less than 5.3% (negative predictive value 94.7%). These data are based on a prospective cross-sectional study of 10,000 individuals at average risk for colorectal cancer who were screened with both Cologuard and colonoscopy. (Jorge Luis Robles al, N Engl J Med 2014;370(14):1850-9047) The normal value (reference range) for this assay is negative. COLOGUARD RE-SCREENING RECOMMENDATION: Periodic colorectal cancer screening is an important part of preventive healthcare for asymptomatic individuals at average risk for colorectal cancer. Following a negative Cologuard result, the [place] [employer] and U.S. Multi-Society Task Force screening guidelines recommend a Cologuard re-screening interval of 3 years. References: [place] [employer] Guideline for Colorectal Cancer Screening: https://www.cancer.org/cancer/ywnko-ajmjkq-wuwgrs/voomptlvv-xlknxghzo-srizevi/ac s-rec ommendations.html.; Edgar DK, Antonio CR, Salma CorderoK, Colorectal Cancer Screening: Recommendations for Physicians and Patients from the U.S. Multi-Society Task Force on Colorectal Cancer Screening , Am J Gastroenterology 2017; 112:6887-5018. TEST DESCRIPTION: Composite algorithmic analysis of stool DNA-biomarkers with hemoglobin immunoassay. Quantitative values of individual biomarkers are not [...] Luis Robles al, N Engl J Med 2014;370(14):3077-7017.) Cologuard may produce a false negative or false positive result (no colorectal cancer or precancerous polyp present at colonoscopy follow up). A negative Cologuard test result does not guarantee the absence of CRC or advanced adenoma (pre-cancer). The current Cologuard screening interval is every 3 years. ([place] [employer] and U.S. Multi-Society Task Force). Cologuard performance data in a 10,000 patient pivotal study using colonoscopy as the reference method can be accessed at the following location: www.[email or web address] [facility]/results. Additional description of the Cologuard test process, warnings and precautions can be found at [email or web address]. Stool specimen (specimen) 03/10/2023 2:14 PM EST 03/12/2023 8:29 PM EST us Zev Sanders MD LAB MOLECULAR DIAGNOSTICS O RDERABLES Final Result [facility] (CLIA #:[id number]) [address] [place] [address], * HPV E6/E7 RFLX VANNESSA 16 18/45 (01/15/2022 10:19 AM EDT) HPV mRNA E6/E7 rflx Not Detected Not Detected [facility] Comment: Methodology: Refrigerator Mover-Mediated Amplification This assay detects E6/E7 viral messenger RNA (mRNA) from 14 high-risk HPV types (16,18,31,33,35,39,45,51,52,56,58,59,66,68). Cervical sources are required for HPV testing. If a vaginal source from a patient who has had a total hysterectomy with removal of cervix was submitted, please contact the testing laboratory for alternative testing options. For additional information, please refer to http://[employer].fm.[employer]/faq/ZMP360x8 (This link if provided for information/ educational purposes only.) THIS TEST WAS PERFORMED AT: [employer] [address] [place] [address] [address] [address] ESPERANZA CRUZ MD 01/15/2022 10:1 9 AM EDT Mario Alberto Morgan MD HISTORICAL/NON ORDERABLE LABS Fi nal Result [facility]ED [facility]GACY [facility] * Hm Pap Smear (01/15/2022) Historical Provider HEALTH MAINTENANCE Final Result * HEPATITIS C AB W/REFL TO HCV RNA, QN, PCR (11/12/2021 12:09 PM EDT) Pathologist [facility] HEPATITIS C ANTIBODY NON-REACT [facility] NON-REACT [facility] INDEX 0.09 <1.00 [facility] Comment: HCV antibody was non-reactive. There is no laboratory evidence of HCV infection. In most cases, no further action is required. However, if recent HCV exposure is suspected, a test for HCV RNA (test code 63472) is suggested. For additional information please refer to http://education.[employer]/faq/YGC87a8 (This link is being provided for informational/ educational purposes only.) 11/12/2021 12:0 9 PM EDT Zev Sanders MD HISTORICAL/NON ORDERABLE LA BS Final Result Performing Organization Address [facility] de Phone Number [facility] [address] [place] [address], * (ABNORMAL) LIPID PANEL, STANDARD (11/12/2021 12:09 PM EDT) Chol/HDLC Ratio 3.3 <5.0 (calc) [facility] Cholesterol, Total 185 <200 mg/dL [facility] HDL Cholesterol 56 > OR = 50 mg/dL [facility] LDL Cholesterol 107(H) mg/dL (calc) [facility] Comment: Reference range: <100 Desirable range <100 mg/dL for primary prevention; <70 mg/dL for patients with CHD or diabetic patients with > or = 2 CHD risk factors. LDL-C is now calculated using the Hilario-Lucio calculation, which is a validated novel method providing better accuracy than the Friedewald equation in the estimation of LDL-C. Hilario SS et al. JUANA. 2013;310(19): 9961-8359 (http://education.[employer]ji.[employer]/faq/RPU275) Non-HDL Cholesterol 129 <130 mg/dL (calc) [facility] Comment: For patients with diabetes plus 1 major ASCVD risk factor, treating to a non-HDL-C goal of <100 mg/dL (LDL-C of <70 mg/dL) is considered a therapeutic option. Triglycerides 120 <150 mg/dL [facility] 11/12/2021 12:0 9 PM EDT Zev Sanders MD LAB BLOOD ORDERABLES Final Result Performing Organization Address [facility] Co de Phone Number [facility] [address] [place] [address], * Mammography Report 1 (10/17/2021 2:30 PM [...] Most Recently Relevant to Health Maintenance Insurance [employer] Care Teams Chairman Emeritus Relationship Specialty Start Date End Date Zev Sanders MD [address] [place] [address] PCP - General Internal Medicine 11/16/19 Michelle Quiroz, BIANCA [address] [place], [place] Registered Nurse Family Medicine 10/04/24 Gonzalo Lima 10/04/24
--- NOTE | 2024-10-07 08:49 | MHC.OFFVIS ---
Vital Signs 10/06/24 14:41 Height 5 ft 2 in Weight 122 lb 5.705 oz BMI 22.4 BP 126/70 Blood Pressure Location Lt brachial Position Sitting Pulse 92 Pulse Source Pulse Oximeter Pulse Oximetry (%) 97 Oxygen Delivery Method Nasal Cannula Oxygen Flow Rate 2 Intake Visit Reasons: [facility] f/u Allergies Penicillins (PENICILLINS) Allergy (Severe, Verified 10/06/24 15:21) RASH seafood Allergy (Verified 10/06/24 15:21) Rash Medication List - Last Reconciled 10/06/24 by Erickson Mathews MD albuterol sulfate 90 mcg/actuation (Ventolin HFA) 2 puffs inhalation QID PRN budesonide-formoterol 160-4.5 mcg/actuation (Symbicort) 2 puffs inhalation BID cholecalciferol (vitamin D3) 50 mcg PO DAILY esomeprazole magnesium 40 mg PO DAILY@0630 ipratropium-albuterol 0.5 mg-3 mg(2.5 mg base)/3 mL 3 mL inhalation Q6H PRN lisinopril 10 mg PO DAILY mirtazapine 45 mg PO BEDTIME montelukast 10 mg PO BEDTIME naloxone 4 mg/actuation (Narcan) 4 mg intranasal Q2M PRN oxycodone 5 mg PO TID PRN 30 days prednisone 10 mg PO DIRECTED prednisone 5 mg PO DAILY Held on 09/27/24. Instructions: Resume on 10/14/24. 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 After significant improvement discharged home on 09/27 with a tapering dose of prednisone. Currently she is on prednisone 10 mg a day for the next 4 days and then it will be downgraded to 5 mg a day. It should be noted that she remains on low-dose prednisone on an ongoing basis, because she is prone to have recurrent exacerbations. She had a CTA scan of the chest, which was negative for pulmonary emboli, but showed multiple new pulmonary nodules, especially in the basilar areas. One density in the right lower lobe was more than 2 cm in size. She would need follow-up CT scan on a short interval. Breathing farooq she is back to her baseline. Does have mild intermittent cough. Expectoration is minimal. Gets short of breath on minimal effort even with oxygen. [facility] Medical History Current non-smoker but past smoking history unknown Respiratory failure with hypoxia COPD exacerbation Pre-op examination History of OCD (obsessive compulsive disorder) History of panic attacks Anxiety and depression Radiculopathy, lumbar region HTN (hypertension) Sacroiliitis COPD (chronic obstructive pulmonary disease) Asthma Allergic rhinitis Disc degeneration, lumbar Surgical History History of surgery History of appendectomy Hx of tonsillectomy Status post excision of lipoma History of tubal ligation Hx of excision of mass History of surgery History of laparoscopic cholecystectomy History of esophagogastroduodenoscopy (EGD) History of umbilical hernia repair History of incision and drainage Family History Family/Other Cervical cancer Family/Other Stomach cancer Social History Household Members: Significant Other and Family Household Members Other:: grandson Housing: House Do you presently have visiting nurse or other home services: No Alcohol intake: never Comment: Significant other bedside Patient Tobacco Use Status: Former Tobacco user Tobacco use type: Cigarette Substance Use Type: Marijuana Advance Directives Date on File: 04/09/24 service: No Current occupational status: unemployed Sexual orientation: Straight/Heterosexual Gender identity: Female Review of Systems Const All systems reviewed & are unremarkable except as noted in HPI and below Eyes Reports no additional complaints ENT Reports nasal congestion and Reports nasal discharge (OFF AND ON) Card Denies chest pain, Denies irregular heart rhythm and Denies leg edema Resp Reports as per HPI GI Reports no additional complaints Reports no additional complaints Musc Reports back pain and Reports arthralgias Skin/Breast Reports system reviewed and no additional complaints, except as documented Neuro Reports no additional complaints Psych Reports depression (Mild) Endo Reports no additional complaints Physical Exam Vital Signs: Last Vital Signs Pulse 92 10/06/24 14:41 BP 126/70 10/06/24 14:41 Pulse Ox 97 10/06/24 14:41 Oxygen Delivery Method Nasal Cannula 10/06/24 14:41 Oxygen Flow Rate 2 10/06/24 14:41 BMI result Body Mass Index 22.4 Const General: comfortable, no acute distress, alert and awake Orientation/consciousness: patient oriented x3 HEENT Head: Yes normal to inspection General nose exam: No nasal polyps present, No nasal discharge present and Other nasal findings present (Mild bilateral nasal congestion) Face and sinus: Yes sinuses nontender Mouth: oropharynx normal Throat: Yes posterior oropharynx normal Eyes General: appearance normal, both eyes and all related structures Neck Neck: Yes normal visual inspection, Yes no lymphadenopathy, Yes trachea midline and Yes no JVD Thyroid: Thyroid normal Chest Chest palpation & inspection: normal inspection of the chest, normal palpation of entire chest wall and no tenderness Resp Other: Percussion note is HYPER RESONANT , She does have good breath sounds on both sides but quite distant with prolonged expiratory phase. Has a few inspiratory crackles over the basilar areas, Cardio Palpation: normal PMI Rate: regular rate Rhythm: regular rhythm Heart sounds: no gallops and no murmurs Peripheral pulses: Peripheral pulses 2+ throughout GI Palpation (GI): Soft to palpation, nontender, No hepatosplenomegaly present and no masses Auscultation: normal bowel sounds Back/Spine/Pelvis Thoracic/Lumbar Spine: thoracic and lumbar spine normal to inspection and thoraco-lumbar ROM limited Skin General skin exam: no rashes or lesions noted Neuro General: patient oriented x3 and no focal motor deficits Cranial nerves: Yes CN's II-XII intact bilaterally Extrem General: Yes normal to inspection, Yes no clubbing, cyanosis or edema and Yes no calf tenderness Psych Appearance: grossly normal and well kempt Speech and movement: Normal speech and movement present Results Reviewed Results Reviewed: CTA of chest 09/25/24 IMPRESSION: 1. No pulmonary emboli. 2. Bilateral lower lobe areas of consolidation tree-in-bud nodules concerning for infection such as pneumonia. Atypical infection or chronic infection could have a similar appearance. 3. Multiple new bilateral pulmonary nodules, largest measuring 2.0 cm in the right lower lobe. Per Fleischner criteria 9 mm or larger nodules should consider 3-[address] follow-up. For low risk 18-24 month follow-up is optional, whereas for high risk it is needed. These may represent areas of scarring related to previous infection, however follow-up recommended. Assessment & Plan Assessment & Plan (1) COPD exacerbation: Comment: Patient has very advanced chronic obstructive pulmonary disease, 10/16/21 ( FVC 56% FEV1 19% FEV1/FVC ratio is 28, FEF 25-75 only 6. ) There was minimal response to bronchodilator therapy Her symptoms got worse and she has been started on O2 2 L/minute since her last visit. She is feeling the same but I think she appears somewhat better. 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 Spiriva Respimat 2.5 mg 2 inhalations daily. Ipratropium-Albuterol 3 mL solution in the nebulizer Q 6 hours p.r.n. ( advise that she may reduced to half while solution , to avoid tachycardia ) Albuterol HFA 2 puffs Q 4-6 hours p.r.n.. (2) Pneumonia: Comment: Patient was treated for atypical pneumonia because she had scattered pulmonary densities, but no identified microorganisms or antibodies. She was treated with a combination of Rocephin and azithromycin and IV Solu-Medrol. Improved and at this time she does not have any sign of infection. Code(s): J18.9 - Pneumonia, unspecified organism Category: Medical Qualifiers: Laterality: bilateral Lung location: lower lobe of lung Pneumonia type: due to unspecified organism Qualified Code(s): J18.9 - Pneumonia, unspecified organism Plan: No more antibiotic agent at this time (3) Pulmonary nodules: Comment: As noted in the CTA of chest report, she does have multiple pulmonary nodules, and 1 density is 2 cm in right lower lobe. These nodules may be non-specific/ inflammatory in nature/ and also representing patchy atelectasis. Code(s): R91.8 - Other nonspecific abnormal finding of lung field Category: Medical Plan: Would need to repeat CT scan on a short-term basis. Ordered to be done in December of this he. Orders: Orders CT chest wo IV con 3 Months J18.9 - Pneumonia, unspecified organism, R91.8 - Other nonspecific abnormal finding of lung field Medications: New prednisone 5 mg PO DAILY 30 tabs 5RF severe COPD 30 days Coding Level of Care Code Est Pt Level 4 (55673) Diagnoses COPD exacerbation J44.1 Pneumonia of both lower lobes due to infectious organism J18.9 Laterality: bilateral Lung location: lower lobe of lung Pneumonia type: due to unspecified organism Pulmonary nodules R91.8
== END 2024-10-06 15:54 | disposition home or self-care (01) ==
LOC: HO.HPS 14:36
PROVIDERS: PCP Internal Medicine; Visit Provider Internal Medicine
DX: J44.1 Chronic obstructive pulmonary disease with (acute) exacerbation (principal); J18.9 Pneumonia, unspecified organism; R91.8 Other nonspecific abnormal finding of lung field
CPT/HCPCS: 99214

== ENCOUNTER → 2024-10-06 14:36 | Outpatient (BNVA) | payer MEDICAID, SELFPAY | PROVIDERS: PCP Internal Medicine; Visit Provider Internal Medicine | DX: Z09 Encounter for follow-up examination after completed treatment for conditions other than malignant neoplasm (principal); J44.1 Chronic obstructive pulmonary disease with (acute) exacerbation; J18.9 Pneumonia, unspecified organism; R91.8 Other nonspecific abnormal finding of lung field | CPT/HCPCS: 99212 ==

== ENCOUNTER 2024-10-21 15:55 | Emergency (ER) | payer MEDICAID, SELFPAY ==
--- NOTE | ~2024-10-21 | XR_ITS ---
EXAMINATION: XR CHEST CLINICAL INFORMATION: chest pain s/p fall COMPARISON: 09/25/2024, 06/30/2024. TECHNIQUE: 2 views of the chest were obtained. FINDINGS: Mild elevation the left hemidiaphragm, unchanged. The cardiac, hilar, and mediastinal contours are normal. Aortic mural calcifications. The lungs are diffusely hyperaerated, however clear bilaterally. Mild right base scarring is again noted. There is no pneumothorax or pleural effusion. There is no focal osseous or soft tissue abnormality. No fracture is evident. XR/XR chest 2V IMPRESSION: No acute findings of the thorax. Electronically signed by: Jim Smith MD 10/21/2024 04:51 PM EDT RP
--- NOTE | ~2024-10-21 | XR_ITS ---
EXAMINATION: XR SHOULDER, RIGHT CLINICAL INFORMATION: pain , fall. COMPARISON: None available. TECHNIQUE: Three views of the right shoulder. FINDINGS: Normal bone mineralization. No fracture, dislocation, or suspicious bone lesion. Normal alignment. The glenohumeral joint is normal. The AC joint is normal. There is a type II acromion. No undersurface spurring. The subacromial space is preserved. Remainder of the soft tissue and bony structures appear normal. XR/XR shoulder RT min 2V IMPRESSION: No acute findings of the right shoulder. Normal exam. Electronically signed by: Jim Smith MD 10/21/2024 04:52 PM EDT
[2024-10-21 15:59] VITALS: BP 141/88; PULSE 94; RESP 18; TEMP 36.2; O2SAT 94; BMI 20.7
--- NOTE | 2024-10-21 15:59 | ED.GENADULT ---
HPI - General Adult General Chief complaint: Fall Stated complaint: fall Related Data Home Medications ?Medication ?Instructions ?Recorded ?Confirmed mirtazapine 45 mg tablet 45 mg PO BEDTIME 03/27/20 10/06/24 quetiapine 100 mg tablet (Seroquel) 100 mg PO BEDTIME 03/27/20 10/06/24 lisinopril 10 mg tablet 10 mg PO DAILY 09/29/20 10/06/24 pregabalin 150 mg capsule 150 mg PO BID 11/13/20 10/06/24 esomeprazole magnesium 40 mg 40 mg PO DAILY@0630 10/16/21 10/06/24 capsule,delayed release cholecalciferol (vitamin D3) 50 50 mcg PO DAILY 12/19/21 10/06/24 mcg (2,000 unit) tablet tiotropium bromide 2.5 2 puff inhalation DAILY 06/30/24 10/06/24 mcg/actuation mist for inhalation (Spiriva Respimat) ipratropium 0.5 mg-albuterol 3 mg 3 ml inhalation Q6H PRN for 09/26/24 10/06/24 (2.5 mg base)/3 mL nebulization wheezing soln Previous Rx's ?Medication ?Instructions ?Recorded prednisone 5 mg tablet 5 mg PO DAILY #30 tabs 05/31/24 Held on 09/27/24. Instructions: Resume on 10/14/24. montelukast 10 mg tablet 10 mg PO BEDTIME #30 tabs 08/30/24 albuterol sulfate 90 mcg/actuation 2 puff inhalation QID PRN for 08/31/24 aerosol inhaler (Ventolin HFA) wheezing #18 grams prednisone 10 mg tablet 10 mg PO DIRECTED #40 tabs 09/27/24 prednisone 5 mg tablet 5 mg PO DAILY severe COPD 30 days 10/07/24 #30 tabs naloxone 4 mg/actuation nasal 4 mg intranasal Q2M PRN opioid 10/10/24 spray (Narcan) overdose #2 ea oxycodone 5 mg tablet 5 mg PO TID PRN pain 30 days #90 10/10/24 tabs budesonide-formoterol HFA 160 2 puff inhalation BID #10.2 grams 10/19/24 mcg-4.5 mcg/actuation aerosol inhaler (Symbicort) Allergies Allergy/AdvReac Type Severity Reaction Status Date / Time Penicillins (PENICILLINS) Allergy Severe RASH Verified 10/21/24 16:02 seafood Allergy Rash Verified 10/21/24 16:02 [facility] Past Medical History Medical History Current non-smoker but past smoking history unknown Respiratory failure with hypoxia COPD exacerbation Pre-op examination History of OCD (obsessive compulsive disorder) History of panic attacks Anxiety and depression Radiculopathy, lumbar region HTN (hypertension) Sacroiliitis COPD (chronic obstructive pulmonary disease) Asthma Allergic rhinitis Disc degeneration, lumbar Surgical History History of surgery History of appendectomy Hx of tonsillectomy Status post excision of lipoma History of tubal ligation Hx of excision of mass History of surgery History of laparoscopic cholecystectomy History of esophagogastroduodenoscopy (EGD) History of umbilical hernia repair History of incision and drainage Family History Family History Family/Other Cervical cancer Family/Other Stomach cancer Social History Social History Household Members: Significant Other and Family Household Members Other:: grandson Housing: House Do you presently have visiting nurse or other home services: No Alcohol intake: never Comment: Significant other bedside Patient Tobacco Use Status: Former Tobacco user Tobacco use type: Cigarette Substance Use Type: Marijuana Advance Directives: Yes Advance Directives on File: Yes Advance Directives Date on File: 04/09/24 Do you have a plan to hurt others: No Plan service: No Current occupational status: unemployed Sexual orientation: Straight/Heterosexual Gender identity: Female Physical Exam ED Vital Signs: BMI result Body Mass Index 20.7 Course Course Course Narrative: This is an RME: Additional HPI, ROS, PE not included below will be deferred to primary provider. RME assessment and note performed by: Kimberly Jackson PA-C This is a 52-bhbc-hil-female, with a hx of COPD on 3L NC, who presents to the ER with complaints of chest pain. Pt was at home and had a trip and fall and she fell onto her oxygen tank. She struck her head on the floor. No LOC. She is not on anticoagulation. Plan: CT head/neck, chest xray, shoulder xray Reevaluation(s) Reevaluation #1: Patient left without completing treatment. Discharge Plan Discharge Clinical Impression: Fall Patient Disposition: Left W/O Completing Treatment Prescriptions: No Action prednisone 5 mg tablet 5 mg PO DAILY Qty: 30 3RF montelukast 10 mg tablet 10 mg PO BEDTIME Qty: 30 3RF albuterol sulfate [Ventolin HFA] 90 mcg/actuation HFA aerosol inhaler 2 puff inhalation QID PRN (Reason: for wheezing) Qty: 18 3RF oxycodone 5 mg tablet 5 mg PO TID PRN (Reason: pain) 30 Days Qty: 90 0RF Rx Instructions: Partial Fill upon patient request. naloxone [Narcan] 4 mg/actuation spray,non-aerosol 4 mg intranasal Q2M PRN (Reason: opioid overdose) Qty: 2 0RF Rx Instructions: spray 1 dose into ONE nostril; alternate nostrils w each dose until help arrives budesonide-formoterol [Symbicort] 160-4.5 mcg/actuation HFA aerosol inhaler 2 puff inhalation BID Qty: 10.2 0RF lisinopril 10 mg tablet 10 mg PO DAILY pregabalin 150 mg Capsule 150 mg PO BID Spiriva Respimat 2.5 mcg/actuation mist 2 puff inhalation DAILY ipratropium-albuterol 0.5 mg-3 mg(2.5 mg base)/3 mL solution for nebulization 3 ml inhalation Q6H PRN (Reason: for wheezing) prednisone 10 mg tablet 10 mg PO DIRECTED Qty: 40 0RF Rx Instructions: 40 mg (4 tabs) daily x 4 days, then 30 mg (3 tabs) daily x 4 days, then 20 mg (2 tabs) daily x 4 days, then 10 mg (1 tab) daily x 4 days quetiapine [Seroquel] 100 mg tablet 100 mg PO BEDTIME mirtazapine 45 mg tablet 45 mg PO BEDTIME esomeprazole magnesium 40 mg capsule,delayed release(DR/EC) 40 mg PO DAILY@0630 cholecalciferol (vitamin D3) 50 mcg (2,000 unit) tablet 50 mcg PO DAILY prednisone 5 mg tablet 5 mg PO DAILY 30 Days Qty: 30 5RF Discharge Date/Time: 10/21/24 19:38
== END 2024-10-21 19:38 | disposition left against medical advice (07) ==
PROVIDERS: Emergency Provider Emergency Medicine; PCP Internal Medicine
DX: R07.9 Chest pain, unspecified (principal); W01.198A Fall on same level from slipping, tripping and stumbling with subsequent striking against other object, initial encounter; Y93.89 Activity, other specified; Y92.098 Other place in other non-institutional residence as the place of occurrence of the external cause; Y99.8 Other external cause status; Z53.21 Procedure and treatment not carried out due to patient leaving prior to being seen by health care provider
CPT/HCPCS: 71046; 73030; 99281; 99284

== ENCOUNTER → 2024-10-21 16:01 | Outpatient (BNV) | payer MEDICAID, SELFPAY | PROVIDERS: PCP Internal Medicine; Visit Provider Radiology Diagnostic Radiology | DX: R07.9 Chest pain, unspecified (principal); M25.511 Pain in right shoulder | CPT/HCPCS: 71046; 73030 ==

== ENCOUNTER 2024-11-04 12:38 | Emergency (ER) | payer MEDICAID, SELFPAY ==
--- NOTE | 2024-11-04 | ECG_ITS ---
Test Reason : CP Blood Pressure : */* mmHG Vent. Rate : 78 BPM Atrial Rate : 78 BPM P-R Int : 142 ms QRS Dur : 78 ms QT Int : 330 ms P-R-T Axes : 76 44 66 degrees QTcB Int : 376 ms Normal sinus rhythm Normal ECG When compared with ECG of 25-Sep-2024 15:36, Nonspecific T wave abnormality no longer evident in Lateral leads Referred By: Gloria Hassan Electronically Signed By: PEDRO CAMPOS
--- NOTE | ~2024-11-04 | CT_ITS ---
EXAMINATION: CT CHEST WITH CONTRAST CLINICAL INFORMATION: Chest wall trauma. Hypoxia. Negative x-ray. COMPARISON: September 25, 2024. TECHNIQUE: Multidetector volumetric CT imaging of the chest was obtained after the administration of 65 mL of Omnipaque 350 intravenous contrast without immediate adverse reactions. Axial MIP volume rendering provided. Sagittal and coronal reformatted images were obtained. This CT examination was performed using dose optimization techniques as appropriate, variously including the following: *Automated exposure control *Adjustment of mA and/or kV according to patient size (this includes techniques or standardized protocols for targeted exams where dose is matched to indication/reason for exam; i.e. extremities or head) *Use of iterative reconstruction technique DLP: 147.89 mGy centimeter. FINDINGS: DRYING RACK CHANGER: Hyperinflation. Pulmonary reticular pattern. Patchy opacities, lower lung lobes. S-shaped curvature of the thoracolumbar spine. LUNGS: Centrilobular emphysematous changes, bilateral predominantly upper lung lobes. Bilateral, multifocal patchy and confluent attenuation's with the air bronchograms involving lower lung lobes and to a lesser extent lingula, right middle lung lobe. No honeycombing. No gross bronchiectasis. Secretions layering within the trachea and mainstem bronchi, bilaterally into the bronchi MEDIASTINUM: No aortic dissection or aneurysm. No rupture thoracic aorta. Calcified plaque thoracic aorta wall and its main branches. Calcified plaques in the coronary arteries. No hemopericardium. Small volume pericardial effusion. Heart is enlarged. Multiple prominent, mediastinal lymph nodes, the largest in the subcarinal measures 11.6 cm.. No pneumomediastinum. Thyroid gland is not enlarged. PLEURA: No pleural effusion. No pneumothorax. No hemothorax. No calcified pleural plaques. AXILLA: No lymphadenopathy. UPPER ABDOMEN: Small hiatal hernia. Decreased enhancement pattern of the liver parenchyma.. OSSEOUS STRUCTURES: No acute rib fracture. Multilevel spondylosis without acute fracture or listhesis in the axial skeleton. Sternum is intact. Scapula are intact bilaterally. CT/CT chest w IV con IMPRESSION: Concerning aspiration multifocal pneumonia. COPD emphysematous type changes. Subcarinal lymphadenopathy. Atherosclerosis disease and coronary artery disease. Fleischner guidelines were followed. Electronically signed by: Francis Connelly MD 11/04/2024 04:02 PM EDT
--- NOTE | ~2024-11-04 | CT_ITS ---
EXAMINATION: CT HEAD WITHOUT CONTRAST CLINICAL INFORMATION: Fall, headache COMPARISON: None available. TECHNIQUE: Contiguous axial imaging was performed from the skull base to vertex without intravenous administration of contrast. This CT examination was performed using dose optimization techniques as appropriate, variously including the following: *Automated exposure control *Adjustment of mA and/or kV according to patient size (this includes techniques or standardized protocols for targeted exams where dose is matched to indication/reason for exam; i.e. extremities or head) *Use of iterative reconstruction technique FINDINGS: There is no evidence of intracranial hemorrhage or extra-axial fluid collection. There is no mass effect, or edema. No CT evidence of acute territorial infarct. Ventricles, sulci, and cisterns are normal in size and configuration for patient age. No hydrocephalus. No midline shift. Negative hyperdense MCA sign. Negative insular ribbon sign. Patchy periventricular and deep white matter hypoattenuation is consistent with mild to moderate small vessel ischemic changes. Normal pituitary. Mild atheromatous calcification of the bilateral carotid siphons and V4 segments vertebral arteries bilaterally. Globes and orbital contents image normally. No extracranial soft tissue abnormalities. The paranasal sinuses are normally aerated. There is opacification of the left mastoid tip, with what appears to be bony dehiscence of the anterior mastoid wall/posterior osseous external auditory canal, with a small amount of soft tissue extending through the defect into the EAC (series 12, images 79-85). No additional suspicious bony abnormalities. The right mastoid is normally aerated. There are no acute fractures evident. CT/CT Head for ICH IMPRESSION: 1. No acute intracranial abnormality. No fracture evident. 2. Opacification of the left mastoid tip, with a focus of bony dehiscence of the anterior mastoid/posterior osseous external auditory canal, with a small amount of soft tissue extending through the defect into the EAC. This may represent a cholesteatoma versus chronic mastoid inflammatory process. Would correlate with patient's symptomatology and otoscopic exam. Electronically signed by: Jim Smith MD 11/04/2024 04:02 PM EDT
[2024-11-04 12:48] VITALS: BP 114/71; BP 126/74; PULSE 80; RESP 14; TEMP 36.8; O2SAT 96; O2SAT 98; BMI 20.1
--- NOTE | 2024-11-04 13:09 | ED.CHESTPAIN ---
HPI - Chest Pain General Chief Complaint: Chest Pain Stated Complaint: CP SINCE FALL 2W AGO PER EMS Time Seen by Provider: 11/04/24 12:52 Source: patient Mode of arrival: EMS Limitations: no limitations History of Present Illness ED Provider: Gloria Hassan PA-C HPI narrative: Patient presents to the emergency department today brought in by ambulance from home. Past medical history significant for chronic respiratory failure on 2 L of oxygen at rest 3 L with ambulation., COPD, pulmonary nodules, chromic pain syndrome, varicose veins, spondylosis, hypertension, Hsieh, GERD, and asthma on chronic pain management with opiates. Two weeks ago while patient was at home walking down a few steps while holding her oxygen taken her left hand she accidentally missed a step causing her to lunge forward when the top of the oxygen tank hit into her right anterior chest wall just lateral to her sternum hitting the right breast. This caused her to bounce off her tank then fall to her right side hitting her head. She did not experience a loss of consciousness or any other significant pain other done to her chest wall. She has been having mild headache since that time none have been the worst of her life. She has been taken Tylenol and Motrin and all it does help the headaches go away it does not help with her chest wall pain. Only her oxycodone has helped with the chest wall pain. She did notice bruising in the area She did seek medical attention here and was initially seen in triage having a rapid medical exam was imaging done of her chest and shoulder along with a head and neck CT. After receiving both or chest x-ray and her shoulder x-ray patient left prior to being fully examined. Since that time she has continued discomfort in the area noticing bruising over her breasts was slowly improves but it still hurts when she pushes on it or tries to change positions. It is no worse with exertion or with food. She wants to make sure she did not break anything in her chest. She is denying feeling short of breath her oxygen demand is no different than prior baseline. She uses 2 L at rest and 3 L with ambulation. She has been on oxygen now for the last 2 years. She is also concerned that her pneumonia did not fully resolve she reports that she gets it frequently but she denies any fevers or chills and no sweats she does not have any abdominal pain or nausea or vomiting no diarrhea. At baseline she has a dry intermittent cough which has not changed in any way she does not feel like she has had any coughing today she does not feel sick just his and pain in her right anterior chest wall over her breast. Chest does not feel tight. She denies air hunger. No swelling in legs and no other injuries reported. She does not feel dizzy. No parethesias or back/ neck pain. Related Data Home Medications ?Medication ?Instructions ?Recorded ?Confirmed mirtazapine 45 mg tablet 45 mg PO BEDTIME 03/27/20 10/06/24 quetiapine 100 mg tablet (Seroquel) 100 mg PO BEDTIME 03/27/20 10/06/24 lisinopril 10 mg tablet 10 mg PO DAILY 09/29/20 10/06/24 pregabalin 150 mg capsule 150 mg PO BID 11/13/20 10/06/24 esomeprazole magnesium 40 mg 40 mg PO DAILY@0630 10/16/21 10/06/24 capsule,delayed release cholecalciferol (vitamin D3) 50 50 mcg PO DAILY 12/19/21 10/06/24 mcg (2,000 unit) tablet tiotropium bromide 2.5 2 puff inhalation DAILY 06/30/24 10/06/24 mcg/actuation mist for inhalation (Spiriva Respimat) ipratropium 0.5 mg-albuterol 3 mg 3 ml inhalation Q6H PRN for 09/26/24 10/06/24 (2.5 mg base)/3 mL nebulization wheezing soln Previous Rx's ?Medication ?Instructions ?Recorded prednisone 5 mg tablet 5 mg PO DAILY #30 tabs 05/31/24 Held on 09/27/24. Instructions: Resume on 10/14/24. montelukast 10 mg tablet 10 mg PO BEDTIME #30 tabs 08/30/24 albuterol sulfate 90 mcg/actuation 2 puff inhalation QID PRN for 08/31/24 aerosol inhaler (Ventolin HFA) wheezing #18 grams prednisone 10 mg tablet 10 mg PO DIRECTED #40 tabs 09/27/24 prednisone 5 mg tablet 5 mg PO DAILY severe COPD 30 days 10/07/24 #30 tabs naloxone 4 mg/actuation nasal 4 mg intranasal Q2M PRN opioid 10/10/24 spray (Narcan) overdose #2 ea oxycodone 5 mg tablet 5 mg PO TID PRN pain 30 days #90 10/10/24 tabs lidocaine 5 % topical patch 1 patch topical DAILY pain #30 ea 11/04/24 budesonide-formoterol HFA 160 2 puff inhalation BID #10.2 grams 11/05/24 mcg-4.5 mcg/actuation aerosol inhaler (Symbicort) Allergies Allergy/AdvReac Type Severity Reaction Status Date / Time Penicillins (PENICILLINS) Allergy Severe RASH Verified 11/04/24 12:49 seafood Allergy Rash Verified 11/04/24 12:49 Review of Systems Review of Systems: Yes all other systems are reviewed and are negative PMFSH Past Medical History Attestation statement: The following information was validated with the patient. Source: old records reviewed and nursing notes reviewed Medical History Current non-smoker but past smoking history unknown Respiratory failure with hypoxia COPD exacerbation Pre-op examination History of OCD (obsessive compulsive disorder) History of panic attacks Anxiety and depression Radiculopathy, lumbar region HTN (hypertension) Sacroiliitis COPD (chronic obstructive pulmonary disease) Asthma Allergic rhinitis Disc degeneration, lumbar Surgical History History of surgery History of appendectomy Hx of tonsillectomy Status post excision of lipoma History of tubal ligation Hx of excision of mass History of surgery History of laparoscopic cholecystectomy History of esophagogastroduodenoscopy (EGD) History of umbilical hernia repair History of incision and drainage Family History Family History Family/Other Cervical cancer Family/Other Stomach cancer Social History Social History Household Members: Significant Other and Family Household Members Other:: grandson Housing: House Do you presently have visiting nurse or other home services: No Alcohol intake: never Comment: Significant other bedside Patient Tobacco Use Status: Former Tobacco user Tobacco use type: Cigarette Substance Use Type: Marijuana Advance Directives Date on File: 04/09/24 service: No Current occupational status: unemployed Sexual orientation: Straight/Heterosexual Gender identity: Female Physical Exam Vital Signs: Vital Signs: Last Vital Signs Temp 97.9 F 11/04/24 17:44 Pulse 91 11/04/24 17:44 Resp 20 11/04/24 17:44 BP 110/62 11/04/24 17:44 Pulse Ox 95 11/04/24 17:44 O2 Del Method Nasal Cannula 11/04/24 17:44 O2 Flow Rate 2.5 11/04/24 17:44 BMI result Body Mass Index 20.1 Const: General: cooperative, healthy appearing, comfortable, no acute distress and well developed Nutritional Appearance: average body habitus Orientation/consciousness: patient oriented x3 Limitations: physical limitations (oxygen dependent) HEENT: Head: Yes normal to inspection, Yes No palpable skull fracture present and Yes normocephalic Ears: hearing grossly normal bilaterally, TM's normal bilaterally and no periauricular adenopathy General nose exam: Normal external nose present Face and sinus: Yes normal facial exam Mouth: Normal oral and palatal mucosa present, lip normal, tongue normal, Normal salivary glands and ducts present, oropharynx normal and moist mucous membranes Throat: Yes posterior oropharynx normal and Yes uvula midline Eyes: General: appearance normal, both eyes and all related structures Periorbital: periorbital findings normal Eyelids: Yes eyelids normal Conjunctivae: conjunctivae normal Sclerae: sclerae normal Corneas: corneas normal Pupils: Equal, round and reactive pupils present EOM: EOMs intact bilaterally Neck: Neck: Yes normal visual inspection, Yes full ROM, Yes no lymphadenopathy, Yes trachea midline and Yes supple Carotids: normal carotid upstroke Lymphatic: no lymphadenopathy noted Chest: Chest palpation & inspection: localized rib tenderness with anteroposterior compression and tenderness (right anterior med thoracic chest/ breast, mild ecchymosis noted, no crep) Resp: Other: no use of accessory muscles Effort & Inspection: able to speak in complete sentences and symmetric chest movement Auscultation: diminished lung sounds (b/l lower lobes) Cardio: Jugular venous distension: no JVD Rate: regular rate Rhythm: regular rhythm Peripheral pulses: Peripheral pulses 2+ throughout GI: Inspection: Yes normal to inspection Palpation (GI): Soft to palpation Auscultation: normal bowel sounds Rectal Exam - Female: deferred : General: Yes no CVA tenderness Back/Spine/Pelvis: Back: no CVA tenderness Pelvis: no pain with anterior-posterior compression Skin: General skin exam: ecchymosis (right breast) Trauma: no lacerations or abrasions Neuro: General: patient oriented x3 Cranial nerves: Yes CN's II-XII intact bilaterally and Yes Equal, round and reactive pupils present Medications Administered Discontinued Medications Generic Name Dose Route Start Last Admin Trade Name Catarina PRN Reason Stop Dose Admin Iohexol 100 ml 11/04/24 14:57 11/04/24 14:59 Iohexol 350 Mg/Ml 100 Ml Infus..Btl IV 11/04/24 14:58 65 ml ONCE ONE Administration Procedures Procedure Narrative Procedure Narrative: EMERGENCY ULTRASOUND INTERPRETATION-Limited Echocardiography [This study was ordered, performed, and interpreted by myself. The study reveals: Impression: NORMAL LV FUNCTION, NO RV DYSFUNCTION, NO PERICARDIAL EFFUSION] [Emergent Cardiac for Indication: Views Used: PLAX, PSSA, A4, SX, IVC Pericardial Effusion/Tamponade Findings: NONE RV Dilation (> LV diam in 4ch apical): NONE Global LV Fxn: NORMAL IVC Dilation and Resp Variation: NORMAL Additional findings: Small right posterior pleural effusion and consolidation versus atelectasis Performed by: MD Laverne Images were stored CPT:60586] Medical Decision Making Medical Decision Making MDM Narrative: Well appearing 54 year old F with PMH sig for chronic respiratory failure on [place] oxygen presenting to ED today for evaluation of chest wall pain status post direct blow from a mechanical fall 2 weeks ago. Upon arrival to ED francis is afebrile with stable normal vitals signs appearing in no acute distress. On Physical exam she has a 2 cm region of ecchymosis of her right anterior chest wall over breasts in the 4 o'clock position. Chest pain is reproducible with palpation there is no crepitus felt. She already had a negative x-ray of her chest 2 weeks ago but patient feels strongly that is something could be broken in there chest CT was ordered to further evaluate. A cardiac workup was initiated from triage however that does not seem consistent with her presentation today but given her overall history this would be an atypical presentation for it. Differentials include chest wall contusion, rib fracture, less likely pneumothorax or hemothorax, chronic pain syndrome exacerbation. Abd is soft and nontender she is denying any infectious symptoms. She does not appear to be sick or ill either. She is at her baseline oxygen saturation with her nasal cannula. 1433: Borderline leukocytosis noted on her labs however this has down trended since September 27 when she was diagnosed with pneumonia. She also has baseline microcytic anemia which is also better than her last visit too. No infectious sxs. Prior to me you also receiving her care she was tested for COVID flu and RSV all of which were negative. Chest and head CT pending. 1540: Patient rechecked at bedside doing well. Scans and head and chest done, Prelim read by myself without acute findings, will await final read to determine dispo. 1605: Patient is requesting to leave, both CT head and chest still pending. Lidocaine patch rx given. Discussed risk of fatality with patient with leaving prior to all pathology being identified. SHe understood. 1715: concern for small pulmonary effusion found on chest CT; these findings were discussed with my attending physician Dr. Galloway who did a bedside ultrasound. No pericardial effusion was appreciated. GIven no cough,increase in sputum production or cough quality/ quantity, change in oxygen requirement, or fevers, it is not felt to be an infectious process either. Healing. SHe will follow up outpatient with PCP. These findings were discussed closely with the patient who demonstrated verbal understanding of the plan and agreed she was discharged home stable. Differential Diagnosis Differential Diagnoses: The differential diagnosis associated with the presentation includes Admission/Observation Consideration of admission/observation: Escalation of care including admission/observation considered Lab Data MDM Lab Attestation statement: I reviewed the patient's lab results. 11/04/24 13:06 11/04/24 13:06 Labs: Lab Results 11/04/24 Range/Units 13:06 WBC 10.9 H (4.8-10.8) X10*3/uL RBC 4.07 L (4.20-5.50) X10*6/uL Hgb 11.6 L (12.0-16.0) g/dl Hct 35.4 L (37.0-47.0) % MCV 87.0 (80.0-98.0) fL MCH 28.5 (27.0-33.0) pg MCHC 32.8 (31.0-35.0) g/dl RDW 14.5 (11.0-16.0) % Plt Count 283 (160-400) X10*3/uL MPV 9.3 L (9.4-12.3) fL Immature Gran % (Auto) 0.8 H (0.0-0.4) % Neut % (Auto) 87.1 H (45-73) % Lymph % (Auto) 6.8 L (20-40) % [place] % (Auto) 4.0 (2-11) % Eos % (Auto) 0.8 (0-4) % Baso % (Auto) 0.5 (0-2) % Lymph # (Auto) 0.7 L (1.2-4.9) X10*3/uL [place] # (Auto) 0.4 (0.1-1.2) X10*3/uL Eos # (Auto) 0.1 (0.0-0.4) X10*3/uL Baso # (Auto) 0.1 (0.0-0.2) X10*3/uL Abs Immat Gran (auto) 0.09 H (0.00-0.03) X10*3/uL Absolute Neuts (auto) 9.5 H (2.0-8.3) x10*3/uL Absolute Nucleated RBC 0.000 (0.0-0.012) X10*3/uL Nucleated RBC % (auto) 0.0 (0.0-0.2) /100WBC Sodium 140 (135-145) mmol/L Potassium 4.8 (3.3-5.1) mmol/L Chloride 104 (96-108) mmol/L Carbon Dioxide 30 H (22-29) mmol/L Anion Gap 11 L (12-20) BUN 14 (9-16) mg/dL Creatinine 0.59 (0.5-1.4) mg/dL Estim Creat Clear Calc 91.3 Estimated GFR > 60 Random Glucose 121 H (60-115) mg/dL Calcium 8.6 D (8.4-10.2) mg/dL Magnesium 1.9 (1.6-2.6) mg/dL Total Bilirubin 0.2 (0.0-1.0) mg/dL AST 25 (5-31) U/L ALT 9 (0-31) U/L Alkaline Phosphatase 83 (39-117) U/L Troponin I High Sens < 2.7 D (<3.5-17.0) ng/L Total Protein 6.4 L (6.5-8.0) g/dL Albumin 3.5 (3.5-5.0) g/dL Influenza Type A (PCR) NEGATIVE (Negative) Influenza Type B (PCR) NEGATIVE (Negative) RSV RNA Qual (PCR) NEGATIVE (Negative) SARS-CoV-2 RNA (RT-PCR) NEGATIVE (Negative) Independent Interpretation I performed an independent interpretation of an: EKG, Plain X-Ray and CT Scan Radiology Impression Discussion of test interpretation with radiology: I have reviewed the radiologist's reading. External Record Review External record reviewed: Inpatient record Tests considered The following testing was considered but not selected: CTA has there been concerns for PE. Prescription Management I considered prescription management with: Pain Medication Chronic Conditions Patient?s care impacted by: Other Social Determinants Patient?s care significantly limited by Social Determinants of Health including: Other Social Determinant of Health Discharge Plan Discharge Clinical Impression: Contusion of anterior chest wall, Head injury, Chest pain Patient Disposition: Home, Self-Care Instructions: Head Injury (ED), Chest Contusion (ED) Additional Instructions: You were seen in the emergency department today status post a fall that occurred 2 weeks ago. You had both the head and chest CT today. It shows lot of chronic interstitial stroke findings however after having a bedside ultrasound done there used to be no acute infectious process occurring today. You have a chest wall contusion. This can be a very painful injury.?? Rib and chest wall injuries are treated similarly to other low-risk stress fractures. Treatment begins with restriction of the inciting activity for four to six weeks followed by a gradual return to the activity as tolerated. Take Motrin 600mg every 6 hours as needed for pain. Take this with food. Use lidocaine patches for pain control. You can also take Tylenol 650mg orally every 6 hours for pain.? Be sure to take a few full, deep breaths 5-10x hourly until your pain is better and you are breathing normally again without pain.? If you develop any fever, chill, cough, shortness of breath, difficulty breathing, abdominal pain, or any worsening symptoms please go to the Emergency Department. Prescriptions: New lidocaine 5 % adhesive patch,medicated 1 patch topical DAILY Qty: 30 0RF Rx Instructions: leave on most painful area for up to 12 hrs No Action prednisone 5 mg tablet 5 mg PO DAILY Qty: 30 3RF montelukast 10 mg tablet 10 mg PO BEDTIME Qty: 30 3RF albuterol sulfate [Ventolin HFA] 90 mcg/actuation HFA aerosol inhaler 2 puff inhalation QID PRN (Reason: for wheezing) Qty: 18 3RF oxycodone 5 mg tablet 5 mg PO TID PRN (Reason: pain) 30 Days Qty: 90 0RF Rx Instructions: Partial Fill upon patient request. naloxone [Narcan] 4 mg/actuation spray,non-aerosol 4 mg intranasal Q2M PRN (Reason: opioid overdose) Qty: 2 0RF Rx Instructions: spray 1 dose into ONE nostril; alternate nostrils w each dose until help arrives budesonide-formoterol [Symbicort] 160-4.5 mcg/actuation HFA aerosol inhaler 2 puff inhalation BID Qty: 10.2 0RF lisinopril 10 mg tablet 10 mg PO DAILY pregabalin 150 mg Capsule 150 mg PO BID Spiriva Respimat 2.5 mcg/actuation mist 2 puff inhalation DAILY ipratropium-albuterol 0.5 mg-3 mg(2.5 mg base)/3 mL solution for nebulization 3 ml inhalation Q6H PRN (Reason: for wheezing) prednisone 10 mg tablet 10 mg PO DIRECTED Qty: 40 0RF Rx Instructions: 40 mg (4 tabs) daily x 4 days, then 30 mg (3 tabs) daily x 4 days, then 20 mg (2 tabs) daily x 4 days, then 10 mg (1 tab) daily x 4 days quetiapine [Seroquel] 100 mg tablet 100 mg PO BEDTIME mirtazapine 45 mg tablet 45 mg PO BEDTIME esomeprazole magnesium 40 mg capsule,delayed release(DR/EC) 40 mg PO DAILY@0630 cholecalciferol (vitamin D3) 50 mcg (2,000 unit) tablet 50 mcg PO DAILY prednisone 5 mg tablet 5 mg PO DAILY 30 Days Qty: 30 5RF Referrals: Zev Sanders MD [Primary Care Provider, Medical] Referral Note: ED follow up Interventions: ED Discharge Assessment Last Done: 11/04/24 17:44 Discharge Date/Time: 11/04/24 17:45 Print Language: Swazi
[2024-11-04 13:11] LABS: MANUAL DIFF FLAG NO
[2024-11-04 13:12] LABS: Hematocrit 35.4 % (37.0-47.0); Hemoglobin 11.6 g/dl (12.0-16.0); Imm Gran Abs Auto 0.09 X10*3/uL (0.00-0.03); Imm Gran Pct Auto 0.8 % (0.0-0.4); Lymphocytes Absolute Auto 0.7 X10*3/uL (1.2-4.9); Mean Corpuscular HGB Conc 32.8 g/dl (31.0-35.0); Mean Corpuscular Hemoglobin 28.5 pg (27.0-33.0); Mean Corpuscular Volume 87.0 fL (80.0-98.0); NRBC Abs Auto 0.000 X10*3/uL (0.0-0.012); NRBC Pct Auto 0.0 /100WBC (0.0-0.2); Platelet Count 283 X10*3/uL (160-400); Red Blood Count 4.07 X10*6/uL (4.20-5.50); White Blood Count 10.9 X10*3/uL (4.8-10.8)
--- OUTSIDE RECORDS SUMMARY | 2024-11-04 13:28 | XMS_ITS | Clinical Summary ---
Author Organization [employer] Address [address] [place] [address] [address] [place] [address] Care Team Providers Care Move Coordinator Name Role Phone Zev Sanders MD Primary Care Provider [phone] Michelle Quiroz RN Unavailable [phone] Gonzalo Lima Unavailable Allergies Active Allergy Reactions Criticality Noted Date Comments Penicillins Rash High 05/13/2019 RASH ON MOUTH WHEN A CHILD Shellfish Allergy Rash Low 04/08/2024 Medications tiotropium (Spiriva Respimat) 2.5 MCG/ACT inhalerIndicat ions:COPD (chronic obstructive pulmonary disease) case management patient ([facility]) INHALE TWO PUFF BY MOUTH EVERY [...] naloxone (Narcan) 4 mg/0.1 mL nasal spray 09/08/19 24 Active predniSONE (Deltasone) 5 MG [...] MORNING 90 capsule 1 05/25/19 25 Active QUEtiapine (SEROquel) 100 MG tablet Take 1 tablet (100 mg) by mouth at bedtime. 30 tablet 07/13/19 25 Active cholecalcifero l VITAMIN D (Vitamin D-3) 50 MCG (1999 UT) tablet TAKE 1 TABLET EVERY MORNING 90 tablet 10/07/19 25 Active Ventolin HFA 108 (90 Base) MCG/ACT inhaler Inhale 2 puffs every 6 (six) hours if needed for wheezing. Active docusate sodium (Colace) 100 MG capsule Take 1 tab po bid prn constipation 60 capsule 3 10/22/19 25 Active pregabalin (Lyrica) 150 MG capsuleIndicat ions:Chronic low back pain, unspecified back pain laterality, unspecified whether sciatica present TAKE ONE CAPSULE TWICE DAILY IN THE MORNING AND AT BEDTIME 60 capsule 11/03/19 25 Active cholecalcifero l VITAMIN D (Vitamin D-3) 50 MCG (1999) tablet TAKE ONE TABLET EVERY MORNING 90 tablet 07/10/19 25 025 Discontinued pregabalin (Lyrica) 150 MG capsuleIndicat ions:Chronic low back pain, unspecified back pain laterality, unspecified whether sciatica present TAKE ONE CAPSULE TWICE DAILY IN THE MORNING AND AT BEDTIME 60 capsule 09/08/19 25 025 Discontinued pregabalin (Lyrica) 150 MG capsuleIndicat ions:Chronic low back pain, unspecified back pain laterality, unspecified whether sciatica present TAKE ONE CAPSULE TWICE DAILY IN THE MORNING AND AT BEDTIME 60 capsule 10/07/19 25 025 Discontinued Active Problems Problem Noted Date Diagnosed Date Olecranon bursitis, right elbow 03/29/2022 Asthma-chronic obstructive p ulmonary disease overlap syndrome 12/19/2017 Chronic back pain 12/19/2017 Essential hypertension 12/19/2017 Menopausal symptom 12/19/2017 Migraine 12/19/2017 Mood disorder 12/19/2017 Seasonal allergies 12/19/2017 Tobacco dependence syndrome 12/19/2017 Encounters Date Type Department Care Team Description 11/01/2024 Telephone [facility] [address] [place] [address] Zev Sanders MD No Show 11/01/2024 Refill [facility] [address] [place] [address] Darlene Gant MD Chronic low back pain, unspecified back pain laterality, unspecified whether sciatica present 10/28/2024 Refill [facility] [address] [place] [address] Darlene Gant MD Chronic low back pain, unspecified back pain laterality, unspecified whether sciatica present 10/28/2024 Patient Outreach [facility] [address] [place] [address] Zev Sanders MD Care Management (C3CM- f/u call) 10/22/2024 11:00 AM EDT Telemedicine [facility] [address] [place] [address] Humaira Lopez RN Fall, subsequent encounter [[id number]] 10/21/2024 1:00 PM EDT Office Visit [facility] [address] [place] [address] Wendy Andre MD Constipation, unspecified constipation type (Primary Dx); Palpitations 10/21/2024 Travel 10/20/2024 Telephone [facility] [address] [place] [address] Zev Sanders MD Nurse Triage 10/15/2024 Telephone [facility] [address] [place] [address] Zev Sanders MD 10/14/2024 Plan of Care Documentation [facility] [address] [place] [address] 10/14/2024 Patient Outreach [address] [address] Zev Sanders MD Care Coordination ([facility]/DESEAN Lima, KSOH assessment, Enrolled CM Program ) 10/14/2024 Patient Outreach [facility] [address] [place] [address] Zev Sanders MD Care Coordination ([facility] initial assessment) 10/13/2024 Patient Outreach [address] [address] Zev Sanders MD Care Coordination ([facility]/DESEAN L[place], Appt reminder ) 10/11/2024 Patient Outreach [facility] [address] [place] [address] Zev Sanders MD 10/06/2024 Telephone [facility] [address] [place] [address] Zev Sanders MD Med Refill 10/06/2024 Refill [facility] [address] [place] [address] Zev Sanders MD Chronic low back pain, unspecified back pain laterality, unspecified whether sciatica present 10/04/2024 Telephone [facility] [address] [place] [address] Zev Sanders MD ER Follow-up 10/04/2024 Travel 10/04/2024 Patient Outreach [address] [address] Zev Sanders MD Care Coordination ([facility]/DESEAN L[facility], initial oureach_assessment scheduled) 10/04/2024 Patient Outreach [address] [address] Zev Sanders MD Care Coordination ([facility]/DESEAN [place], Chart review) 10/04/2024 Telephone [facility] [address] [place] [phone] Zev Sanders MD Nurse Triage 10/04/2024 Patient Outreach [facility] [address] [place] [address] Zev Sanders MD Care Coordination (C3CM chart review) 10/04/2024 Patient Outreach [address] [address] Zev Sanders MD 09/30/2024 Patient Outreach [address] [address] Zev Sanders MD Transition Of Care (Tcm) (HDF unscheduled LVM ) 09/28/2024 Patient Outreach [address] [address] Zev Sanders MD Transition Of Care (Tcm) (HDF unscheduled LVM ) 09/25/2024 Orders Only GENERIC EXTERNAL DATA DEPARTMENT Provider, Generic External Data 09/06/2024 Refill [facility] [address] [place] [address] Zev Sanders MD Chronic low back pain, unspecified back pain laterality, unspecified whether sciatica present 09/06/2024 Refill [facility] [address] [place] [address] Zev Sanders MD Chronic low back pain, unspecified back pain laterality, unspecified whether sciatica present 08/10/2024 Telephone [facility] [address] [place] [address] Zev Sanders MD No Show 08/10/2024 Patient Outreach [facility] [address] [place] [address] Zev Sanders MD Care Coordination (C3/CM Outreach) 08/05/2024 Refill [facility] [address] [place], [place] [phone] Zev Sanders MD Chronic low back pain, [...] Answer Date Recorded Patient Health Questionnaire-9 Score 2 10/14/2024 Patient Health Questionnaire-9 Score 2 10/14/2024 Last PHQ-9: Questionnaire Data Not on file 0 10/14/2024 Housing Stability Answer Date Recorded What is your housing situation today? I have kiran zavala 10/14/[address] you li ve. Do you have problems with any of the following? None of the above 10/14/2024 Food Insecurity Answer Date Recorded Within the past 12 months, y ou worried that your food would run out before you got money to buy more: Often true 10/14/2024 Within the past 12 months,th e food you bought just didn't last and you didn't have enough money to get more: Often true Transportation Answer Date Recorded In the past 12 months, has l ack of transportation kept you from medical appts, meetings, work or from getting things needed for daily living? No 10/14/2024 Utilities Answer Date Recorded In the past 12 months, has t he electric, gas, oil or water company threatened to shut off services in your home? No 10/14/2024 Depression Answer Date Recorded Patient Health Questionnaire-2 Score 0 10/14/2024 Internet Access Answer Date Recorded Internet Access Q1 Yes 10/14/2024 Internet Access Q2 Not on file 10/14/2024 Comments Unknown Sex and Gender Information Value Date Recorded Sex Assigned at Female 01/28/2022 10:30 AM EDT Legal Sex Female 10:30 AM EDT Gender Identity Female 10/14/2023 1:26 PM EDT Sexual Orientation Straight 10/14/2023 1: 26 PM EDT Last Filed Vital Signs Vital Sign Reading Time Taken Comments Blood Pressure 126/75 10/21/2024 1:11 PM EDT Pulse 95 10/21/2024 1:11 PM EDT Temperature 36.1 C (97 F) 10/21/2024 1:11 PM EDT Respiratory Rate 18 10/21/2024 1:11 PM EDT Oxygen Saturation 93% 05/10/2024 1:17 PM EST Inhaled Oxygen Concentration - - Weight 53.5 kg (118 lb) 10/21/2024 1:11 PM EDT Height 160.7 cm (5' 3.25 ) 10/21/2024 1:11 PM ED T Body Mass Index 20.74 10/21/2024 1:11 PM EDT Plan of Treatment Health Maintenance Due Date Last Done Comments CT Colonography 1970 Colonoscopy 1970 FIT 1970 FOBT 1970 HIV Screening 1970 Sigmoidoscopy 1970 Hepatitis A Vaccines (1 of 2 - Risk 2-dose series) 1989 Hepatitis B Vaccines (1 of 3 - 19+ 3-dose series) 1989 Mammogram 10/18/2023 10/17/2021, 12/04/2017 COVID-19 Vaccine ( - season) 2023 Zoster Vaccines (2 of 2) 06/24/2024 04/29/2024 Influenza Vaccine (#1) 2024 , 01/23/2023, 12/19/2017, Additional history exists Disability Screening 05/01/2025 05/01/2024 Tobacco Screening 05/10/2025 05/10/2024 Alcohol/Substance Use Screening 10/14/2025 10/14/2024 Depression Screening 10/14/2025 10/14/2024, 10/15/19 25 SDOH Screening 10/14/2025 10/14/2024 Colorectal Cancer Screening 03/10/2026 FIT DNA/Cologuard 03/10/2026 [...] Priority Date/Time Associated Diagnosis Comments XR CHEST 2 VIEWS Routine 10/21/2024 4:10 PM EDT XR SHOULDER 2+ VIEWS RIGHT Routine 10/21/2024 3:33 PM EDT CTA CHEST PE PROTOCAL Routine 09/25/2024 7:40 [...] to Health Maintenance Results * XR Chest 2 Views (10/21/2024 4:10 PM EDT) Anatomical Region Laterality Modality Chest Radiographic Joy ging 10/21/2024 4:10 PM EDT Narrative 10/21/2024 4:54 PM EDT [address] [address] XRay Report Signed Patient: Deysi Pfeiffer MR#: [id number] : 1970 Acct:[id number] Age/Sex: 54 / F ADM Date: 10/21/24 Loc: HO.ED Attending Dr: Ordering Physician: Kimberly Tello Date of Service: 10/21/24 Procedure(s): XR chest 2V Accession Number(s): [id number] cc: Zev Sanders MD; Kimberly Tello EXAMINATION: XR CHEST CLINICAL INFORMATION: chest pain s/p fall COMPARISON: 09/25/2024, 06/30/2024. TECHNIQUE: 2 views of the chest were obtained. FINDINGS: Mild elevation the left hemidiaphragm, unchanged. The cardiac, hilar, and mediastinal contours are normal. Aortic mural calcifications. The lungs are diffusely hyperaerated, however clear bilaterally. Mild right base scarring is again noted. There is no pneumothorax or pleural effusion. There is no focal osseous or soft tissue abnormality. No fracture is evident. XR/XR chest 2V IMPRESSION: No acute findings of the thorax. Electronically signed by: Jim Smith MD 10/21/2024 04:51 PM EDT RP Dictated By: Jim Smith MD Signed By: <Electronically signed by Jim Smith MD in OV> 10/21/24 1651 DD/ 1610 TD/TT: 10/21/24 1625 Tool Hardener: Procedure Note Donotuseinterpreter, Image - 10/21/2024 [place] [address] XRay Report Signed Patient: Deysi Pfeiffer DMR#: [id number] : 1970Acct:[id number] Age/Sex: 54 / FADM Date: 10/21/24 Loc: .ED Attending Dr: Ordering Physician: Kimberly Tello Date of Service: 10/21/24 Procedure(s): XR chest 2V Accession Number(s): [id number] cc: Zev Sanders MD; Kimberly Tello EXAMINATION: XR CHEST CLINICAL INFORMATION: chest pain s/p fall COMPARISON: 09/25/2024, 06/30/2024. TECHNIQUE: 2 views of the chest were obtained. FINDINGS: Mild elevation the left hemidiaphragm, unchanged. The cardiac, hilar, and mediastinal contours are normal. Aortic mural calcifications. The lungs are diffusely hyperaerated, however clear bilaterally. Mild right base scarring is again noted. There is no pneumothorax or pleural effusion. There is no focal osseous or soft tissue abnormality. No fracture is evident. XR/XR chest 2V IMPRESSION: No acute findings of the thorax. Electronically signed by: Jim Smith MD 10/21/2024 04:51 PM EDT RP Dictated By: Jim Smith MD Signed By: <Electronically signed by Jim Smith MD in OV> 10/21/24 1651 DD/ 1610 TD/TT: 10/21/24 1625 Tool Hardener: [facility] External Provider IMG XR PROCEDURES Edited Result - Final * XR Shoulder 2+ Views Right (10/21/2024 3:33 PM EDT) Anatomical Region Laterality Modality Upper Extremities, Shoulder Right Radi ographic Imaging 10/21/2024 3:33 PM EDT Narrative 10/21/2024 4:55 PM EDT [place] [address] XRay Report Signed Patient: Deysi Pfeiffer MR#: [id number] : 1970 Acct:[id number] Age/Sex: 54 / F ADM Date: 10/21/24 Loc: HO.ED Attending Dr: Ordering Physician: Kimberly Tello Date of Service: 10/21/24 Procedure(s): XR shoulder RT min 2V Accession Number(s): [id number] cc: Zev Sanders MD; Kimberly Tello EXAMINATION: XR SHOULDER, RIGHT CLINICAL INFORMATION: pain , fall. COMPARISON: None available. TECHNIQUE: Three views of the right shoulder. FINDINGS: Normal bone mineralization. No fracture, dislocation, or suspicious bone lesion. Normal alignment. The glenohumeral joint is normal. The AC joint is normal. There is a type II acromion. No undersurface spurring. The subacromial space is preserved. Remainder of the soft tissue and bony structures appear normal. XR/XR shoulder RT min 2V IMPRESSION: No acute findings of the right shoulder. Normal exam. Electronically signed by: Jim Smith MD 10/21/2024 04:52 PM EDT Dictated By: Jim Smith MD Signed By: <Electronically signed by Jim Smith MD in OV> 10/21/24 1652 DD/ 1533 TD/TT: 10/21/24 1625 Tool Hardener: Procedure Note Donotuseinterpreter, Image - 10/21/[address] [address] XRay Report Signed Patient: Deysi Pfeiffer DMR#: [id number] : 1970Acct:[id number] Age/Sex: 54 / FADM Date: 10/21/24 Loc: .ED Attending Dr: Ordering Physician: Kimberly Tello Date of Service: 10/21/24 Procedure(s): XR shoulder RT min 2V Accession Number(s): [id number] cc: Zev Sanders MD; Kimberly Tello EXAMINATION: XR SHOULDER, RIGHT CLINICAL INFORMATION: pain , fall. COMPARISON: None available. TECHNIQUE: Three views of the right shoulder. FINDINGS: Normal bone mineralization. No fracture, dislocation, or suspicious bone lesion. Normal alignment. The glenohumeral joint is normal. The AC joint is normal. There is a type II acromion. No undersurface spurring. The subacromial space is preserved. Remainder of the soft tissue and bony structures appear normal. XR/XR shoulder RT min 2V IMPRESSION: No acute findings of the right shoulder. Normal exam. Electronically signed by: Jim Smith MD 10/21/2024 04:52 PM EDT Dictated By: Jim Smith MD Signed By: <Electronically signed by Jim Smith MD in OV> 10/21/24 1652 DD/ 1533 TD/TT: 10/21/24 1625 Tool Hardener: us [facility] External Provider IMG XR PROCEDURES Edited Result - Final * CTA Chest PE Protocal (09/25/2024 7:40 PM EDT) Anatomical Region Laterality Modality Body, Chest Computed Tomogra phy 09/25/2024 7:40 PM EDT Narrative 09/25/2024 7:42 PM EDT [address] [address] [address] Scan Report Signed Patient: Deysi Pfeiffer MR#: [id number] : 1970 Acct:[id number] Age/Sex: 54 / F ADM Date: 09/25/24 Loc: .ED Attending Dr: Ordering Physician: Madeleine Aparicio MD Date of Service: 09/25/24 Procedure(s): CT angio chest PE protocol Accession Number(s): [id number] cc: Zev Sanders MD; Madeleine Aparicio MD Report Number: [id number]: Total DLP = 579.00 mGy-cm CLINICAL HISTORY: [...] in OV> 09/25/241941 DD/ 39 TD/TT: 09/25/241939 Tool Hardener: Procedure Note Donotuseinterpreter, Image - 09/25/[address] [place] [address] [address] Scan Report Signed Patient: Deysi Pfeiffer [facility]#: [id number] : 1970Acct:[id number] Age/Sex: 54 / FADM Date: 09/25/24 Loc: HO.ED Attending Dr: Ordering Physician: Madeleine Aparicio MD Date of Service: 09/25/24 Procedure(s): CT angio chest PE protocol Accession Number(s): [id number] cc: Zev Sanders MD; Madeleine Aparicio MD Report Number: [id number]: Total DLP = 579.00 mGy-cm CLINICAL HISTORY: [...] in OV> 09/25/241941 DD/ 39 TD/TT: 09/25/241939 Tool Hardener: [facility] External Provider IMG CT PROCEDURES Edited Result - Final * CT Abdomen Pelvis w/ Contrast (09/25/2024 7:23 PM EDT) Anatomical Region Laterality Modality Body, Pelvis, Abdomen Computed T omography 09/25/2024 7:23 PM EDT Narrative 09/25/2024 7:25 PM EDT [address] [address] [address] Scan Report Signed Patient: Deysi Pfeiffer MR#: [id number] : 1970 Acct:[id number] Age/Sex: 54 / F ADM Date: 09/25/24 Loc: HO.ED Attending Dr: Ordering Physician: Madeleine Aparicio MD Date of Service: 09/25/24 Procedure(s): CT abdomen pelvis w IV con Accession Number(s): [id number] cc: Zev Sanders MD; Madeleine Aparicio MD Report Number: [id number]: Total DLP = 579.00 mGy-cm CLINICAL HISTORY: [...] in OV> 09/25/241923 DD/ 22 TD/TT: 09/25/241922 Tool Hardener: Procedure Note Donotlakshmiinterpreter, Image - 09/25/[address] [address] [address] Scan Report Signed Patient: Deysi Pfeiffer DMR#: [id number] : 1970Acct:[id number] Age/Sex: 54 / FADM Date: 09/25/24 Loc: HO.ED Attending Dr: Ordering Physician: Madeleine Aparicio MD Date of Service: 09/25/24 Procedure(s): CT abdomen pelvis w IV con Accession Number(s): [id number] cc: Zev Sanders MD; Madeleine Aparicio MD Report Number: [id number]: Total DLP = 579.00 mGy-cm CLINICAL HISTORY: [...] in OV> 09/25/241923 DD/ 22 TD/TT: 09/25/241922 Tool Hardener: [facility] External Provider IMG CT PROCEDURES Edited Result - Final * XR Chest 1 View (09/25/2024 6:04 PM EDT) Anatomical Region Laterality Modality Chest Radiographic Joy ging 09/25/2024 6:04 PM EDT Narrative 09/25/2024 6:05 PM EDT [address] [address] XRay Report Signed Patient: Deysi Pfeiffer MR#: [id number] : 1970 Acct:[id number] Age/Sex: 54 / F ADM Date: 09/25/24 Loc: HO.ED Attending Dr: Ordering Physician: Madeleine Aparicio MD Date of Service: 09/25/24 Procedure(s): XR chest 1V Accession Number(s): [id number] cc: Zev Sanders MD; Madeleine Aparicio MD [...] Nathan Mccullough MD in OV> 09/25/241804 DD/ 180 TD/TT: 09/25/241803 Tool Hardener: Procedure Note Donotuseinterpreter, Image - 09/25/[address] [address] XRay Report Signed Patient: Deysi Pfeiffer DMR#: [id number] : 1970Acct:[id number] Age/Sex: 54 / FADM Date: 09/25/24 Loc: .ED Attending Dr: Ordering Physician: Madeleine Aparicio MD Date of Service: 09/25/24 Procedure(s): XR chest 1V Accession Number(s): [id number] cc: Zev Sanders MD; Madeleine Aparicio MD [...] in OV> 09/25/241804 DD/ 03 TD/TT: 09/25/241803 Tool Hardener: [facility] External Provider IMG XR PROCEDURES Final Result * (ABNORMAL) VENOUS BLOOD GAS (09/25/2024 4:57 PM EDT) VBG pH 7.49(H) 7.32 - 7.43 [facility] Comment:METER #: [id number] additional_comment: Cb patelha VBG PCO2 42 mmHg [facility] Comment:METER #: [id number] additional_comment: Cb patelha VBG PO2 72 mmHg [facility] Comment:METER #: [id number] additional_comment: Cb patelha VBG Base Excess 9.1 mmol/L [facility] Comment:METER #: [id number] additional_comment: Cb patelha VBG HCO3 33(H) 22 - 26 mmol/L [facility] Comment:METER #: [id number] additional_comment: Cb humbertoelvivien O2 Sat, Lefty 96.0 % [facility] Comment:METER #: [id number] additional_comment: Cb humbertoelvivien 09/25/2024 4:57 PM EDT 09/25/2024 5:04 PM EDT us Generic External Data Provider LAB BLOOD ORDERAB LES Final Result Performing Organization Address [facility] de Phone Number [facility] [address] [place] [phone] * HOLD LT BLUE - POSSIBLE COAG (09/25/2024 4:47 PM EDT) Hold Lt Blue - Possible Coag SEE NOTE [facility] Comment:Specimen will be hel d untested for 4 hours. Call Hematologyif testing is desired. 09/25/2024 4:47 PM EDT 09/25/2024 5:06 PM EDT us Generic External Data Provider LAB BLOOD ORDERAB LES Final Result Performing Organization Address [facility] de Phone Number [facility] [address] [place] [phone] * Lactic Acid (09/25/2024 4:47 PM EDT) Pathologist [facility] Lactic Acid 0.9 0.5 - 2.0 mmol/L [facility] 09/25/2024 4:47 PM EDT 09/25/2024 4:55 PM EDT Generic External Data Provider LAB BLOOD ORDERAB LES Final Result Performing Organization Address [facility] Co de Phone Number [facility] [address] [place] [phone] * SARS-CoV-2 RNA, Influenza A/B, and RSV RNA, Ql NAAT (09/25/2024 4:46 PM EDT) [facility] Influenza A PCR NEGATIVE Negative [facility] Influenza B PCR NEGATIVE Negative [facility] Resp Syncy Virus RNA Qual PCR NEGATIVE Negative [facility] SARS COV2 PCR NEGATIVE Negative [facility] Comment:All test results mus t be [...] use by authorized laboratories.Testing performed on the [employer] GeneXpert utilizingreal-time RT-PCR.All SARS CoV2 and positive influenza A/B results arereported to [facility]. 09/25/2024 4:46 PM EDT 09/25/2024 4:55 PM EDT us Generic External Data Provider LAB MICROBIOLOGY - GENERAL ORDERABLES Final Result [facility] [address] [place] [phone] * (ABNORMAL) Urinalysis, Complete, with Reflex to Culture (09/25/2024 3:46 PM EDT) Color Urine Yellow [facility] Appearance Urine Clear [facility] PH 5.5 5.0 - 9.0 [facility] Glucose Urine UA Negative Negative mg/dL [facility] Urine Blood Negative Negative [facility] Specific [place] - Urine 1.010 1.005 - 1.025 [facility] Urine Protein Negative Neg-Trace mg/dL [facility] Urine Ketones Negative Negative mg/dL [facility] Nitrite Urine Negative Negative [facility] Leukocyte Esterase Urine Trace(A) Negative [facility] RBC Urine 0-2 0 - 2 /HPF [facility] Urine WBC 0-5 0 - 5 /HPF [facility] Urine Squamous Epithelial Cell 0-2 0 - 2 /HPF [facility] Urine Bacteria None Seen None Seen [facility] Hyaline Casts, Urine 0-2 0 - 2 /LPF [facility] 09/25/2024 3:46 PM EDT 09/25/2024 3:49 PM EDT Narrative [facility] - 09/25/2024 4:22 PM EDT Urine, Clean Catch Generic External Data Provider LAB URINE ORDERAB LES Final Result Performing Organization Address [facility] Co de Phone Number [facility] [address] [place] [phone] * HCG, Qualitative, Urine (09/25/2024 3:46 PM EDT) Urine NEGATIVE NEGATIVE [facility] Comment:This test was develo ped to detect early . Falsenegative results may occur after the 5th - 7th week ofpregnancy when using this test method. If clinicallyindicated, consider a serum hCG. 09/25/2024 3:46 PM EDT 09/25/2024 3:49 PM EDT Generic External Data Provider LAB URINE ORDERAB LES Final Result Performing Organization Address [facility] Co de Phone Number [facility] [address] [place] [phone] * Cologuard?? colon cancer screening (03/10/2023 2:14 PM EST) Cologuard Result Negative Negative 03/21/20 1:56 AM EST [employer] (CLIA #:[id number]) Comment: NEGATIVE TEST RESULT. A negative Cologuard [...] (Jorge Luis Polanco, N Engl J Med 2014;370(14):8071-8655) The normal value (reference range) for this assay is negative. COLOGUARD RE-SCREENING RECOMMENDATION: Periodic colorectal cancer screening is an important part of preventive healthcare for asymptomatic individuals at average risk for colorectal cancer. Following a negative Cologuard result, the [employer] and U.S. Multi-Society Task Force screening guidelines recommend a Cologuard re-screening interval of 3 years. References: [employer] Guideline for Colorectal Cancer Screening: https://www.cancer.org/cancer/hbynh-dghzzj-bgytwb/jmowmcvhj-xpjsnapxg-bprwlbx/ac s-rec ommendations.html.; Edgar DK, Antonio CR, Salma CorderoK, Colorectal Cancer Screening: Recommendations for Physicians and Patients from the U.S. Multi-Society Task Force on Colorectal Cancer Screening , Am J Gastroenterology 2017; 112:2408-9955. TEST DESCRIPTION: Composite algorithmic analysis of stool [...] (Jorge Luis Polanco, N Engl J Med 2014;370(14):5065-3259.) Cologuard may produce a false negative or false positive result (no colorectal cancer or precancerous polyp present at colonoscopy follow up). A negative Cologuard test result does not guarantee the absence of CRC or advanced adenoma (pre-cancer). The current Cologuard screening interval is every 3 years. ([employer] and U.S. Multi-Society Task Force). Cologuard performance data in a 10,000 patient pivotal study using colonoscopy as the reference method can be accessed at the following location: www.Hemosphere.com/results. Additional description of the Cologuard test process, warnings and precautions can be found at www.cologuard.com. Stool specimen (specimen) 03/10/2023 2:14 PM EST 03/12/2023 8:29 PM EST Zev Sanders MD LAB MOLECULAR DIAGNOSTICS O RDERABLES Final Result [facility] (CLIA #:[id number]) [address] [place] [address], * HPV E6/E7 RFLX VANNESSA 16 18/45 (01/15/2022 10:19 AM EDT) HPV mRNA E6/E7 rflx Not Detected Not Detected [facility] Comment: Methodology: Field Auto Appraiser-Mediated Amplification This assay detects E6/E7 viral messenger RNA (mRNA) from 14 high-risk HPV types (16,18,31,33,35,39,45,51,52,56,58,59,66,68). Cervical sources are required for HPV testing. If a vaginal source from a patient who has had a total hysterectomy with removal of cervix was submitted, please contact the testing laboratory for alternative testing options. For additional information, please refer to http://education.247 Techies.Brainceuticals/faq/PWD391t1 (This link if provided for information/ educational purposes only.) THIS TEST WAS PERFORMED AT: [facility] [address] [place] [address],[place] [address] ESPERANZA CRUZ MD 01/15/2022 10:1 9 AM EDT Mario Alberto Morgan MD HISTORICAL/NON ORDERABLE LABS Fi nal Result CONVERTED LEGACY LAB[facility] * Hm Pap Smear (01/15/2022) Historical Provider HEALTH MAINTENANCE Final Result * HEPATITIS C AB W/REFL TO HCV RNA, QN, PCR (11/12/2021 12:09 PM EDT) HEPATITIS C ANTIBODY NON-REACT JOSE MANUEL NON-REACT JOSE MANUEL [facility] INDEX 0.09 <1.00 [facility] Comment: HCV antibody was non-reactive. There is no laboratory evidence of HCV infection. In most cases, no further action is required. However, if recent HCV exposure is suspected, a test for HCV RNA (test code 63557) is suggested. For additional information please refer to http://CoverItLive.Technimotion/faq/QOU29q0 (This link is being provided for informational/ educational purposes only.) 11/12/2021 12:0 9 PM EDT Zev Sanders MD HISTORICAL/NON ORDERABLE LA BS Final Result Performing Organization Address City/[facility]/ZIP Co de Phone Number [facility] [address] * (ABNORMAL) LIPID PANEL, STANDARD (11/12/2021 [...] factors. LDL-C is now calculated using the Hi calculation, which is a validated novel method providing better accuracy than the Friedewald equation in the estimation of LDL-C. Hilario MOON et al. JUANA. 2013;310(39): 1931-9475 (http://education.ClusterSeven.com/faq/LXQ606) Non-HDL Cholesterol 129 <130 mg/dL (calc) [facility] Comment: For patients with diabetes plus 1 major ASCVD risk factor, treating to a non-HDL-C goal of <100 mg/dL (LDL-C of <70 mg/dL) is considered a therapeutic option. Triglycerides 120 <150 mg/dL [facility] 11/12/2021 12:0 9 PM EDT us Zev Sanders MD LAB BLOOD ORDERABLES Final Result [facility] [address] * Mammography Report 1 (10/17/2021 2:30 [...] Most Recently Relevant to Health Maintenance Insurance [employer] Care Teams Move Coordinator Relationship Specialty Start Date End Date Zev Sanders MD [address] [place] [address] PCP - General Internal Medicine 11/16/19 Michelle Quiroz RN [address] [place] [address] Registered Nurse Family Medicine 10/04/24 Gonzalo Lima 10/04/24
[2024-11-04 13:40] LABS: Alanine Aminotransferase 9 U/L (0-31); Albumin Level 3.5 g/dL (3.5-5.0); Alkaline Phosphatase 83 U/L (39-117); Anion Gap 11 (12-20); Aspartate Amino Transferase 25 U/L (5-31); Blood Urea Nitrogen 14 mg/dL (9-16); Calcium 8.6 mg/dL (8.4-10.2); Carbon Dioxide 30 mmol/L (22-29); Chloride 104 mmol/L (96-108); Creatinine Clr Calc Pharmacy 91.3; Estimated Glomerular Filt Rate > 60; Magnesium 1.9 mg/dL (1.6-2.6); Potassium 4.8 mmol/L (3.3-5.1); Sodium 140 mmol/L (135-145); Total Protein 6.4 g/dL (6.5-8.0)
[2024-11-04 13:47] LABS: Troponin-I High Sensitivity < 2.7 ng/L (<3.5-17.0)
[2024-11-04 13:50] LABS: Resp Syncy Virus RNA Qual PCR NEGATIVE (Negative); SARS COV2 PCR INHOUSE NEGATIVE (Negative)
[2024-11-04 14:19] VITALS: BP 110/67; PULSE 74; RESP 16; O2SAT 98
[2024-11-04 14:34] VITALS: BP 115/70; PULSE 74; RESP 19; TEMP 36.2; O2SAT 95
--- NOTE | 2024-11-04 14:44 | PC.NURSE ---
Patient presents to ED c/o C/P non radiating rated 10/10. Patient had fall two weeks ago and she fell on her chest no fx but has increased pain. Denies SOB, dizziness, and n/v. Patient wears O2 2L NC baseline O2 97%. Iv 20G placed LAC. VSS and up to date. plan of care on going
[2024-11-04] MEDS: iohexoL 350 MG/ML 100 ML INFUS..BTL IV (14:59)
[2024-11-04 17:29] VITALS: BP 110/62; PULSE 91; RESP 20; TEMP 36.6; O2SAT 95
[2024-11-04 17:44] VITALS: BP 110/62; PULSE 91; RESP 20; TEMP 36.6; O2SAT 95
== END 2024-11-04 17:45 | disposition home or self-care (01) ==
PROVIDERS: Physician Assistant Medical; Emergency Provider Emergency Medicine; PCP Internal Medicine
DX: S20.211A Contusion of right front wall of thorax, initial encounter (principal); S09.90XA Unspecified injury of head, initial encounter; R51.9 Headache, unspecified; R07.89 Other chest pain; J96.10 Chronic respiratory failure, unspecified whether with hypoxia or hypercapnia; W10.9XXA Fall (on) (from) unspecified stairs and steps, initial encounter; Y93.9 Activity, unspecified; Y92.9 Unspecified place or not applicable; Y99.8 Other external cause status; Z99.81 Dependence on supplemental oxygen; Z03.818 Encounter for observation for suspected exposure to other biological agents ruled out; Z79.899 Other long term (current) drug therapy; Z87.891 Personal history of nicotine dependence
CPT/HCPCS: 70450; 71260; 80053; 83735; 84484; 85025; 87637; 93005; 93308; 99285; Q9967

== ENCOUNTER → 2024-11-04 12:55 | Outpatient (BNV) | payer MEDICAID, SELFPAY | PROVIDERS: Emergency Provider Emergency Medicine; PCP Internal Medicine; Visit Provider Internal Medicine | DX: R07.9 Chest pain, unspecified (principal) | CPT/HCPCS: 93010 ==

== ENCOUNTER → 2024-11-04 13:19 | Outpatient (BNV) | payer MEDICAID, SELFPAY | PROVIDERS: Emergency Provider Emergency Medicine; PCP Internal Medicine; Visit Provider Radiology Diagnostic Radiology | DX: J44.9 Chronic obstructive pulmonary disease, unspecified (principal); R59.0 Localized enlarged lymph nodes; I25.10 Atherosclerotic heart disease of native coronary artery without angina pectoris; R51.9 Headache, unspecified; W19.XXXA Unspecified fall, initial encounter; R07.89 Other chest pain | CPT/HCPCS: 70450; 71260 ==

== ENCOUNTER 2024-11-11 13:52 | Outpatient (AMB) | payer MEDICAID, SELFPAY ==
--- NOTE | 2024-11-11 13:53 | MHC.OFFVIS ---
Vital Signs 11/11/24 14:12 Height 5 ft 4 in Weight 120 lb BMI 20.6 BP 134/80 Blood Pressure Location Rt brachial Position Sitting Pulse 83 Pulse Source Pulse Oximeter Pulse Oximetry (%) 95 Oxygen Delivery Method Nasal Cannula Oxygen Flow Rate 3 Intake Visit Reasons: Pill count Intake Note: Deysi comes in today for a pill count to oxycodone, patient should have 63 tablets and presents with 65 tablets which she last took today 11/11/24 at 8am. 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 She is supposed to have #63 pills in her possession and presents with #65 pills. This demonstrates a responsible attitude in regards to her opioid regimen. Patient reports adequate analgesia on her current regime without side effects. Pain is rated at 6/10, mainly affecting her chronic neck and lower back areas with movements, walking or prolonged standing. Patient utilizes oxygen 2-3 L with rest or sitting and 3-4 L with ambulation. She is followed by [facility]. Patient denies any fever, chills, weight loss, abdominal or groin pain, constipation, urinary retention, sedation, nausea, vomiting, constipation, sedation, dizziness, or urinary retention. COUNTS INCLUDE 234 BEDS AT THE [facility] Medical History Current non-smoker but past smoking history unknown Respiratory failure with hypoxia COPD exacerbation Pre-op examination History of OCD (obsessive compulsive disorder) History of panic attacks Anxiety and depression Radiculopathy, lumbar region HTN (hypertension) Sacroiliitis COPD (chronic obstructive pulmonary disease) Asthma Allergic rhinitis Disc degeneration, lumbar Surgical History History of surgery History of appendectomy Hx of tonsillectomy Status post excision of lipoma History of tubal ligation Hx of excision of mass History of surgery History of laparoscopic cholecystectomy History of esophagogastroduodenoscopy (EGD) History of umbilical hernia repair History of incision and drainage Family History Family/Other Cervical cancer Family/Other Stomach cancer Social History Household Members: Significant Other and Family Household Members Other:: grandson Housing: House Do you presently have visiting nurse or other home services: No Alcohol intake: never Comment: Significant other bedside Patient Tobacco Use Status: Former Tobacco user Tobacco use type: Cigarette Substance Use Type: Marijuana Advance Directives Date on File: 04/09/24 service: No Current occupational status: unemployed Sexual orientation: Straight/Heterosexual Gender identity: Female Review of Systems Const All systems reviewed & are unremarkable except as noted in HPI and below Physical Exam Vital Signs: Last Vital Signs Pulse 83 11/11/24 14:12 BP 134/80 11/11/24 14:12 Pulse Ox 95 11/11/24 14:12 Oxygen Delivery Method Nasal Cannula 11/11/24 14:12 Oxygen Flow Rate 3 11/11/24 14:12 BMI result Body Mass Index 20.6 General: Appears afebrile. Alert and oriented. Mood and affect appropriate. Pleasant. Follows and participates in conversation appropriately. Respiratory effort is unlabored. No cough. O2 at 3L/min continuos. Able to transition from sit to stand unassisted. Ambulates with antalgic gait, mild limping. Back/Spine/Pelvis Thoracic/Lumbar Spine: thoracic and lumbar spine normal to inspection, pain with thoraco-lumbar ROM, thoraco-lumbar ROM limited, No thoracic spinal tenderness and lumbar spinal tenderness at L4 and at L5 Sacroiliac joints: bilaterally tender to palpation Psych Appearance: grossly normal and well kempt Mental Status: mental status grossly normal Speech and movement: Normal speech and movement present Affect: normal affect Attitude: cooperative Thought process: Normal thought process present Thought content: Normal thought content present, suicidality (none), no hallucinations and Depressive thoughts present Insight: Good insight present (Psych) Judgement: Good judgement present (Psych) Results Reviewed Results Reviewed: MRI LUMBAR SPINE WITHOUT CONTRAST EXAM DATE 05/07/2019 The marrow signal is within normal limits. Moderate disc space narrowing at L3-L4, severe loss of disc height L4-5 with endplate spurring mild endplate edema laterally on the right at L4-5. Mild rightward curvature of lumbar spine. No compression fractures. Trace anterior subluxation at L4-5. The paraspinal soft tissues appear normal. Bony pelvis is normal. Conus medullaris: Normal terminating at the level of L1. No level a spinal cord abnormalities. The cauda equina nerve roots are normal. Spinal levels: L1-L2: No disc pathology. No central canal stenosis or foraminal narrowing. L2-L3: Very mild disc bulge presents without central canal stenosis or foraminal encroachment. L3-L4: Moderate loss of disc height with large left foraminal disc extrusion! Severely compressing the exiting left L3 nerve root. Underlying mild disc bulge and mild facet arthropathy. No central canal stenosis. L4-5: Significant loss of disc height with broad-based disc bulge and right foraminal extraforaminal disc protrusion mildly distorting the exiting right L4 nerve root. Moderate facet arthropathy without central canal stenosis. L5-S1: Mild facet arthrosis no disc pathology: No central canal stenosis, or foraminal narrowing. XR SOFT TISSUE NECK 06/09/23 FINDINGS: Limited evaluation of the lower cervical spine secondary to patient positioning. No acute visible fracture or dislocation. Multilevel degenerative changes. Vertebral body heights and disc spaces are maintained. Prevertebral soft tissues unremarkable. Posterior elements are intact. Paraspinal soft tissues are unremarkable. Visualized portions of the upper chest are unremarkable. IMPRESSION: 1. Limited evaluation of the lower cervical spine secondary to patient positioning. 2. No acute visible fracture or dislocation. 3. Multilevel degenerative changes. CT/CT soft tissue neck w IV con 06/25/23 IMPRESSION: No cervical adenopathy or extra-mucosal soft tissue mass. Rightward curvature of the cervical spine with multilevel hypertrophic facet arthropathy. Mild amount of secretions in the tracheal airway which potentially would put the patient at risk for aspiration. Significant emphysematous changes in the lungs. XR ANKLE 3 OR MORE VIEWS RIGHT 05/14/24 HISTORY: pain COMPARISON: There are no prior studies available for comparison. FINDINGS: Three views of the right ankle are submitted. Osseous mineralization is normal. There is no fracture or dislocation. The joint spaces are preserved. The soft tissues are unremarkable. IMPRESSION: Unremarkable examination of the right ankle. Assessment & Plan Assessment & Plan (1) Opioid contract exists: Code(s): Z79.891 - halfway (current) use of opiate analgesic Category: Medical (2) Cervicalgia: Code(s): M54.2 - Cervicalgia Category: Medical (3) Disc degeneration, lumbar: Code(s): M51.36 - Other intervertebral disc degeneration, lumbar region Category: Medical (4) Spondylosis of lumbar region without myelopathy or radiculopathy: Code(s): M47.816 - Spondylosis without myelopathy or radiculopathy, lumbar region Category: Medical (5) Chronic pain syndrome: Code(s): G89.4 - Chronic pain syndrome Category: Medical Plan Patient has shown accountability for her medication regimen and the pill count was accurate. Masspat was reviewed and without concerns. No obvious signs of diversion, abuse or misuse of the opioid medications. Patient reports reasonable analgesia on current medication regime. Prescription sent for Oxycodone 5mg po TID prn with an advanced date of 12/02/24. Patient has Narcan script at home. She also takes pregabalin 150 mg BID prescribed by her PCP. Patient to follow-up in the office in 4-5 weeks for pill count and sooner as needed. Medications: Refilled oxycodone Partial Fill upon patient request. 5 mg PO TID PRN 90 tabs 0RF pain 30 days M46.1 - Sacroiliitis, not elsewhere classified, M47.816 - Spondylosis without myelopathy or radiculopathy, lumbar region, M51.36 - Other intervertebral disc degeneration, lumbar region Coding Level of Care Code Est Pt Level 4 (98988) Complex EM visit Add On G2211 Diagnoses Opioid contract exists Z79.891 Cervicalgia M54.2 Disc degeneration, lumbar M51.36 Spondylosis of lumbar region without myelopathy or radiculopathy M47.816 Chronic pain syndrome G89.4
[2024-11-11 14:12] VITALS: BP 134/80; PULSE 83; O2SAT 95; BMI 20.6
--- OUTSIDE RECORDS SUMMARY | 2024-11-11 14:44 | XMS_ITS | Clinical Summary ---
Author Organization [employer] Address [address] [place] [address] [address] [place] [address] Care Team Providers Care Bookmobile Driver Name Role Phone Zev Sanders MD Primary Care Provider [phone] Michelle Quiroz RN Unavailable [phone] Gonzalo Lima Unavailable Allergies Active Allergy Reactions Criticality Noted Date Comments Penicillins Rash High 05/13/2019 RASH ON MOUTH WHEN A CHILD Shellfish Allergy Rash Low 04/08/2024 Medications tiotropium (Spiriva Respimat) 2.5 MCG/ACT inhalerIndicat ions:COPD (chronic obstructive pulmonary disease) case management patient ([facility]) INHALE TWO PUFF BY MOUTH [...] l VITAMIN D (Vitamin D-3) 50 MCG (2000 UT) tablet TAKE 1 TABLET EVERY MORNING [...] AT BEDTIME 60 capsule 11/03/19 25 Active pregabalin (Lyrica) 150 MG capsuleIndicat [...] Encounters Date Type Department Care Team Description 11/11/2024 1:15 PM EDT Telemedicine [facility] [address] [place] [address] Martha Zimmer, BIANCA Chest pain, unspecified type [R07.9] 11/11/2024 Travel 11/11/2024 Patient Outreach [address] [address] Zev Sanders MD Care Management (C3CM- f/u call lv) 11/04/2024 Orders Only [facility] External Provider, [facility] 11/01/2024 Telephone [facility] [address] [place] [address] Zev Sanders MD No Show 11/01/2024 Refill [facility] [address] [place] [address] Darlene Gant MD Chronic low back pain, unspecified back pain laterality, unspecified whether sciatica present 10/28/2024 Refill [facility] [address] [place] [address] Darlene Gant MD Chronic low back pain, unspecified back pain laterality, unspecified whether sciatica present 10/28/2024 Patient Outreach [address] [address] Zev Sanders MD Care Management (C3CM- f/u call) 10/22/2024 11:00 AM EDT Telemedicine [facility] [address] [place] [address] Humaira Lopez RN Fall, subsequent encounter [W19.XXXD] 10/21/2024 1:00 PM EDT Office Visit [facility] [address] [place] [address] Wendy Andre MD Constipation, unspecified constipation type (Primary Dx); Palpitations 10/21/2024 Travel 10/20/2024 Telephone [facility] [address] [place] [address] Zev Sanders MD Nurse Triage 10/15/2024 Telephone [facility] [address] [place] [address] Zev Sanders MD 10/14/2024 Plan of Care Documentation [address] [address] 10/14/2024 Patient Outreach [address] [address] Zev Sanders MD Care Coordination ([facility]/Palak Lima, [facility] assessment, Enrolled CM Program ) 10/14/2024 Patient Outreach [facility] [address] [place] [address] Zev Sanders MD Care Coordination ([facility] initial assessment) 10/13/2024 Patient Outreach [address] [address] Zev Sanders MD Care Coordination ([facility]/DESEAN Lima, Appt reminder ) 10/11/2024 Patient Outreach [facility] [address] [place] [address] Zev Sanders MD 10/06/2024 Telephone [facility] [address] [place] [address] Zev Sanders MD Med Refill 10/06/2024 Refill [facility] [address] [place] [address] Zev Sanders MD Chronic low back pain, unspecified back pain laterality, unspecified whether sciatica present 10/04/2024 Telephone [facility] [address] [place] [address] Zev Sanders MD ER Follow-up 10/04/2024 Travel 10/04/2024 Patient Outreach [address] [address] Zev Sanders MD Care Coordination ([facility]/DESEAN Lima, initial oureach_assessment scheduled) 10/04/2024 Patient Outreach [address] [address] Zev Sanders MD Care Coordination (C3/CHW Gonzalo Lima, Chart review) 10/04/[address] [address] Zev Sanders MD Nurse Triage 10/04/2024 Patient Outreach [facility] [address] [place] [address] Zev Sanders MD Care Coordination ([facility] chart review) 10/04/2024 Patient Outreach [address] [address] Zve Sanders MD 09/30/2024 Patient Outreach [address] [address] Zev Sanders MD Transition Of Care (Tcm) (HDF unscheduled LVM ) 09/28/2024 Patient Outreach [address] [address] Zev Sanders MD Transition Of Care (Tcm) (HDF unscheduled LVM ) 09/25/2024 Orders Only GENERIC EXTERNAL DATA DEPARTMENT Provider, Generic External Data 09/06/2024 Refill [facility] [address] [place] [address] Zev Sanders MD Chronic low back pain, unspecified back pain laterality, unspecified whether sciatica present 09/06/2024 Refill [facility] [address] [place] [address] Zev Sanders MD Chronic low back pain, [...] 10/21/2024 1:11 PM EDT Plan of Treatment Upcoming Encounters Date Type Department Care Team (Late st Contact Info) Description 11/23/2024 3:45 PM EDT Office Visit [facility] [address], [place] [phone] Zev Sanders MD [address] [place] [address] Health Maintenance Due Date Last Done Comments [...] Procedure Name Priority Date/Time Associated Diagnosis Comments CT CHEST W CONTRAST Routine 11/04/2024 2 :[address] HEAD FOR ICH Routine 11/04/2024 1:52 PM EDT XR CHEST 2 VIEWS Routine 10/21/2024 4:10 [...] Recently Relevant to Health Maintenance Results * CT Chest w/ Contrast (11/04/2024 2:52 PM EDT) Anatomical Region Laterality Modality Body, Chest Computed Tomogra phy 11/04/2024 2:52 PM EDT Narrative 11/04/2024 4:05 PM EDT [address] [address] [address] Scan Report Signed Patient: Deysi Pfeiffer MR#: [id number] : 1970 Acct:[id number] Age/Sex: 54 / F ADM Date: 11/04/24 Loc: HO.ED Attending Dr: Ordering Physician: Gloria Hassan PA-C Date of Service: 11/04/24 Procedure(s): CT chest w IV con Accession Number(s): [id number] cc: Zev Sanders MD; Gloria Hassan PA-C Report Number: [id number]: Total DLP = 155.70 mGy-cm EXAMINATION: CT CHEST WITH CONTRAST CLINICAL INFORMATION: Chest wall trauma. Hypoxia. Negative x-ray. COMPARISON: September 25, 2024. TECHNIQUE: Multidetector volumetric CT imaging of the chest was obtained after the administration of 65 mL of Omnipaque 350 intravenous contrast without immediate adverse reactions. Axial MIP volume rendering provided. Sagittal and coronal reformatted images were obtained. This CT examination was performed using dose optimization techniques as appropriate, variously including the following: *Automated exposure control *Adjustment of mA and/or kV according to patient size (this includes techniques or standardized protocols for targeted exams where dose is matched to indication/reason for exam; i.e. extremities or head) *Use of iterative reconstruction technique DLP: 147.89 mGy centimeter. FINDINGS: CAUSTIC ROOM ATTENDANT: Hyperinflation. Pulmonary reticular pattern. Patchy opacities, lower lung lobes. S-shaped curvature of the thoracolumbar spine. LUNGS: Centrilobular emphysematous changes, bilateral predominantly upper lung lobes. Bilateral, multifocal patchy and confluent attenuation's with the air bronchograms involving lower lung lobes and to a lesser extent lingula, right middle lung lobe. No honeycombing. No gross bronchiectasis. Secretions layering within the trachea and mainstem bronchi, bilaterally into the bronchi MEDIASTINUM: No aortic dissection or aneurysm. No rupture thoracic aorta. Calcified plaque thoracic aorta wall and its main branches. Calcified plaques in the coronary arteries. No hemopericardium. Small volume pericardial effusion. Heart is enlarged. Multiple prominent, mediastinal lymph nodes, the largest in the subcarinal measures 11.6 cm.. No pneumomediastinum. Thyroid gland is not enlarged. PLEURA: No pleural effusion. No pneumothorax. No hemothorax. No calcified pleural plaques. AXILLA: No lymphadenopathy. UPPER ABDOMEN: Small hiatal hernia. Decreased enhancement pattern of the liver parenchyma.. OSSEOUS STRUCTURES: No acute rib fracture. Multilevel spondylosis without acute fracture or listhesis in the axial skeleton. Sternum is intact. Scapula are intact bilaterally. CT/CT chest w IV con IMPRESSION: Concerning aspiration multifocal pneumonia. COPD emphysematous type changes. Subcarinal lymphadenopathy. Atherosclerosis disease and coronary artery disease. Fleischner guidelines were followed. Electronically signed by: Francis Connelly MD 11/04/2024 04:02 PM EDT RP Dictated By: Francis Brannon MD Signed By: <Electronically signed by Francis Jaeger MD in OV> 11/04/24 1602 DD/ 1452 TD/TT: 11/04/24 1546 Steel Engraver: Procedure Note Donotuseinterpreter, Image - 11/04/[address] [place] [address] [address] Scan Report Signed Patient: Deysi Pfeiffer DMR#: [id number] : 1970Acct:[id number] Age/Sex: 54 / FADM Date: 11/04/24 Loc: HO.ED Attending Dr: Ordering Physician: Gloria Hassan PA-C Date of Service: 11/04/24 Procedure(s): CT chest w IV con Accession Number(s): [id number] cc: Zev Sanders MD; Gloria Hassan PA-C Report Number: [id number]: Total DLP = 155.70 mGy-cm EXAMINATION: CT CHEST WITH CONTRAST CLINICAL INFORMATION: Chest wall trauma. Hypoxia. Negative x-ray. COMPARISON: September 25, 2024. TECHNIQUE: Multidetector volumetric CT imaging of the chest was obtained after the administration of 65 mL of Omnipaque 350 intravenous contrast without immediate adverse reactions. Axial MIP volume rendering provided. Sagittal and coronal reformatted images were obtained. This CT examination was performed using dose optimization techniques as appropriate, variously including the following: *Automated exposure control *Adjustment of mA and/or kV according to patient size (this includes techniques or standardized protocols for targeted exams where dose is matched to indication/reason for exam; i.e. extremities or head) *Use of iterative reconstruction technique DLP: 147.89 mGy centimeter. FINDINGS: CAUSTIC ROOM ATTENDANT: Hyperinflation. Pulmonary reticular pattern. Patchy opacities, lower lung lobes. S-shaped curvature of the thoracolumbar spine. LUNGS: Centrilobular emphysematous changes, bilateral predominantly upper lung lobes. Bilateral, multifocal patchy and confluent attenuation's with the air bronchograms involving lower lung lobes and to a lesser extent lingula, right middle lung lobe. No honeycombing. No gross bronchiectasis. Secretions layering within the trachea and mainstem bronchi, bilaterally into the bronchi MEDIASTINUM: No aortic dissection or aneurysm. No rupture thoracic aorta. Calcified plaque thoracic aorta wall and its main branches. Calcified plaques in the coronary arteries. No hemopericardium. Small volume pericardial effusion. Heart is enlarged. Multiple prominent, mediastinal lymph nodes, the largest in the subcarinal measures 11.6 cm.. No pneumomediastinum. Thyroid gland is not enlarged. PLEURA: No pleural effusion. No pneumothorax. No hemothorax. No calcified pleural plaques. AXILLA: No lymphadenopathy. UPPER ABDOMEN: Small hiatal hernia. Decreased enhancement pattern of the liver parenchyma.. OSSEOUS STRUCTURES: No acute rib fracture. Multilevel spondylosis without acute fracture or listhesis in the axial skeleton. Sternum is intact. Scapula are intact bilaterally. CT/CT chest w IV con IMPRESSION: Concerning aspiration multifocal pneumonia. COPD emphysematous type changes. Subcarinal lymphadenopathy. Atherosclerosis disease and coronary artery disease. Fleischner guidelines were followed. Electronically signed by: Francis Connelly MD 11/04/2024 04:02 PM EDT RP Dictated By: Francis Brannon MD Signed By: <Electronically signed by Francis Jaeger MDin OV> 11/04/24 1602 DD/ 1452 TD/TT: 11/04/24 1546 Steel Engraver: [facility] External Provider IM CT PROCEDURES Final Result * CT Head for ICH (11/04/2024 1:52 PM EDT) Anatomical Region Laterality Modality Head, Neck Computed Tomogra phy 11/04/2024 1:52 PM EDT Narrative 11/04/2024 4:05 PM EDT [address] [address] [address] Scan Report Signed Patient: Deysi Pfieffer MR#: [id number] : 1970 Acct:[id number] Age/Sex: 54 / F ADM Date: 11/04/24 Loc: HO.ED Attending Dr: Ordering Physician: Gloria Hassan PA-C Date of Service: 11/04/24 Procedure(s): CT Head for ICH Accession Number(s): [id number] cc: Zev Sanders MD; Gloria Hassan PA-C Report Number: [id number]: Total DLP = 629.57 mGy-cm EXAMINATION: CT HEAD WITHOUT CONTRAST CLINICAL INFORMATION: Fall, headache COMPARISON: None available. TECHNIQUE: Contiguous axial imaging was performed from the skull base to vertex without intravenous administration of contrast. This CT examination was performed using dose optimization techniques as appropriate, variously including the following: *Automated exposure control *Adjustment of mA and/or kV according to patient size (this includes techniques or standardized protocols for targeted exams where dose is matched to indication/reason for exam; i.e. extremities or head) *Use of iterative reconstruction technique FINDINGS: There is no evidence of intracranial hemorrhage or extra-axial fluid collection. There is no mass effect, or edema. No CT evidence of acute territorial infarct. Ventricles, sulci, and cisterns are normal in size and configuration for patient age. No hydrocephalus. No midline shift. Negative hyperdense MCA sign. Negative insular ribbon sign. Patchy periventricular and deep white matter hypoattenuation is consistent with mild to moderate small vessel ischemic changes. Normal pituitary. Mild atheromatous calcification of the bilateral carotid siphons and V4 segments vertebral arteries bilaterally. Globes and orbital contents image normally. No extracranial soft tissue abnormalities. The paranasal sinuses are normally aerated. There is opacification of the left mastoid tip, with what appears to be bony dehiscence of the anterior mastoid wall/posterior osseous external auditory canal, with a small amount of soft tissue extending through the defect into the EAC (series 12, images 79-85). No additional suspicious bony abnormalities. The right mastoid is normally aerated. There are no acute fractures evident. CT/CT Head for ICH IMPRESSION: 1. No acute intracranial abnormality. No fracture evident. 2. Opacification of the left mastoid tip, with a focus of bony dehiscence of the anterior mastoid/posterior osseous external auditory canal, with a small amount of soft tissue extending through the defect into the EAC. This may represent a cholesteatoma versus chronic mastoid inflammatory process. Would correlate with patient's symptomatology and otoscopic exam. Electronically signed by: Jim Smith MD 11/04/2024 04:02 PM EDT RP Dictated By: Jim Smith MD Signed By: <Electronically signed by Jim Smith MD in OV> 11/04/24 1602 DD/ 1352 TD/TT: 11/04/24 1546 Steel Engraver: Procedure Note Donotuseinterpreter, Image - 11/04/[address] [place] [address] [address] Scan Report Signed Patient: Deysi Pfeiffer [facility]#: [id number] : 1970Acct:[id number] Age/Sex: 54 / FADM Date: 11/04/24 Loc: HO.ED Attending Dr: Ordering Physician: Gloria Hassan PA-C Date of Service: 11/04/24 Procedure(s): CT Head for ICH Accession Number(s): [id number] cc: Zev Sanders MD; Gloria Hassan PA-C Report Number: [id number]: Total DLP = 629.57 mGy-cm EXAMINATION: CT HEAD WITHOUT CONTRAST CLINICAL INFORMATION: Fall, headache COMPARISON: None available. TECHNIQUE: Contiguous axial imaging was performed from the skull base to vertex without intravenous administration of contrast. This CT examination was performed using dose optimization techniques as appropriate, variously including the following: *Automated exposure control *Adjustment of mA and/or kV according to patient size (this includes techniques or standardized protocols for targeted exams where dose is matched to indication/reason for exam; i.e. extremities or head) *Use of iterative reconstruction technique FINDINGS: There is no evidence of intracranial hemorrhage or extra-axial fluid collection. There is no mass effect, or edema. No CT evidence of acute territorial infarct. Ventricles, sulci, and cisterns are normal in size and configuration for patient age. No hydrocephalus. No midline shift. Negative hyperdense MCA sign. Negative insular ribbon sign. Patchy periventricular and deep white matter hypoattenuation is consistent with mild to moderate small vessel ischemic changes. Normal pituitary. Mild atheromatous calcification of the bilateral carotid siphons and V4 segments vertebral arteries bilaterally. Globes and orbital contents image normally. No extracranial soft tissue abnormalities. The paranasal sinuses are normally aerated. There is opacification of the left mastoid tip, with what appears to be bony dehiscence of the anterior mastoid wall/posterior osseous external auditory canal, with a small amount of soft tissue extending through the defect into the EAC (series 12, images 79-85). No additional suspicious bony abnormalities. The right mastoid is normally aerated. There are no acute fractures evident. CT/CT Head for ICH IMPRESSION: 1. No acute intracranial abnormality. No fracture evident. 2. Opacification of the left mastoid tip, with a focus of bony dehiscence of the anterior mastoid/posterior osseous external auditory canal, with a small amount of soft tissue extending through the defect into the EAC. This may represent a cholesteatoma versus chronic mastoid inflammatory process. Would correlate with patient's symptomatology and otoscopic exam. Electronically signed by: Jim Smith MD 11/04/2024 04:02 PM EDT Dictated By: Jim Smith MD Signed By: <Electronically signed by Jim Smith MD in OV> 11/04/24 1602 DD/ 1352 TD/TT: 11/04/24 1546 Steel Engraver: [facility] External Provider IMG CT PROCEDURES Final Result * XR Chest 2 Views (10/21/2024 4:10 PM EDT) Anatomical Region Laterality Modality Chest Radiographic Joy ging 10/21/2024 4:10 PM EDT Narrative 10/21/2024 4:54 PM EDT [address] [address] XRay Report Signed Patient: Deysi Pfeiffer MR#: [id number] : 1970 Acct:[id number] Age/Sex: 54 / F ADM Date: 10/21/24 Loc: HO.ED Attending Dr: Ordering Physician: Kimberly Tello Date of Service: 10/21/24 Procedure(s): XR chest 2V Accession Number(s): [id number] cc: Zev Sanders MD; Kimberly Tello EXAMINATION: [...] Jim Smith MD 10/21/2024 04:51 PM EDT Dictated By: Jim Smith MD Signed By: <Electronically signed by Jim Smith MD in OV> 10/21/24 1651 DD/ 1610 TD/TT: 10/21/24 1625 Steel Engraver: Procedure Note Donotuseinterpreter, Image - 10/21/[address] [address] XRay Report Signed Patient: Deysi Pfeiffer DMR#: [id number] : 1970Acct:[id number] Age/Sex: 54 / FADM Date: 10/21/24 Loc: HO.ED Attending Dr: Ordering Physician: Kimberly Tello Date of Service: 10/21/24 Procedure(s): XR chest 2V Accession Number(s): [id number] cc: Zev Sanders MD; Kimberly Tello EXAMINATION: [...] Jim Smith MD 10/21/2024 04:51 PM EDT Dictated By: Jim Smith MD Signed By: <Electronically signed by Jim Smith MD in OV> 10/21/24 1651 DD/ 1610 TD/TT: 10/21/24 1625 Steel Engraver: [facility] External Provider IMG XR PROCEDURES Edited Result - Final * XR Shoulder 2+ Views Right (10/21/2024 3:33 PM EDT) Anatomical Region Laterality Modality Upper Extremities, Shoulder Right Radi ographic Imaging 10/21/2024 3:33 PM EDT Narrative 10/21/2024 4:55 PM EDT [address] [address] XRay Report Signed Patient: Deysi Pfeiffer MR#: [id number] : 1970 Acct:[id number] Age/Sex: 54 / F ADM Date: 10/21/24 Loc: HO.ED Attending Dr: Ordering Physician: Kimberly Tello Date of Service: 10/21/24 Procedure(s): XR shoulder RT min 2V Accession Number(s): [id number] cc: Zev Sanders MD; Kimberly Tello EXAMINATION: [...] 10/21/24 1652 DD/ 1533 TD/TT: 10/21/24 1625 Steel Engraver: Procedure Note Donotuseinterpreter, Image - 10/21/2024 [place] [address] XRay Report Signed Patient: Deysi Pfeiffer [facility]#: [id number] : 1970Acct:[id number] Age/Sex: 54 / FADM Date: 10/21/24 Loc: HO.ED Attending Dr: Ordering Physician: Kimberly Tello Date of Service: 10/21/24 Procedure(s): XR shoulder RT min 2V Accession Number(s): [id number] cc: Zev Sanders MD; Kimberly Tello EXAMINATION: [...] Jim Smith MD 10/21/2024 04:52 PM EDT RP Dictated By: Jim Smith MD Signed By: <Electronically signed by Jim Smith MD in OV> 10/21/24 1652 DD/ 1533 TD/TT: 10/21/24 1625 Steel Engraver: [facility] External Provider IMG XR PROCEDURES Edited Result - Final * CTA Chest PE Protocal (09/25/2024 7:40 PM EDT) Anatomical Region Laterality Modality Body, Chest Computed Tomogra phy 09/25/2024 7:40 PM EDT Narrative 09/25/2024 7:42 PM EDT [place] [address] CT Scan Report Signed Patient: Deysi Pfeiffer MR#: [id number] : 1970 Acct:[id number] Age/Sex: 54 / F ADM Date: 09/25/24 Loc: HO.ED Attending Dr: Ordering Physician: Madeleine Aparicio MD Date of Service: 09/25/24 Procedure(s): CT angio chest PE protocol Accession Number(s): [id number] cc: Zev Sanders MD; Madeleine Aparicio MD Report Number: [id number]: Total DLP = 579.00 mGy-cm CLINICAL HISTORY: [...] in OV> 09/25/241941 DD/ 39 TD/TT: 09/25/241939 Steel Engraver: Procedure Note Donotuseinterpreter, Image - 09/25/[address] [address] [address] Scan Report Signed Patient: Deysi Pfeiffer [facility]#: [id number] : 1970Acct:[id number] Age/Sex: 54 / FADM Date: 09/25/24 Loc: HO.ED Attending Dr: Ordering Physician: Madeleine Aparicio MD Date of Service: 09/25/24 Procedure(s): CT angio chest PE protocol Accession Number(s): [id number] cc: Zev Sanders MD; Madeleine Aparicio MD Report Number: [id number]: Total DLP = 579.00 mGy-cm CLINICAL HISTORY: [...] in OV> 09/25/241941 DD/ 39 TD/TT: 09/25/241939 Steel Engraver: [facility] External Provider IMG CT PROCEDURES Edited Result - Final * CT Abdomen Pelvis w/ Contrast (09/25/2024 7:23 PM EDT) Anatomical Region Laterality Modality Body, Pelvis, Abdomen Computed T omography 09/25/2024 7:23 PM EDT Narrative 09/25/2024 7:25 PM EDT [place] [address] CT Scan Report Signed Patient: Deysi Pfeiffer MR#: [id number] : 1970 Acct:[id number] Age/Sex: 54 / F ADM Date: 09/25/24 Loc: HO.ED Attending Dr: Ordering Physician: Madeleine Aparicio MD Date of Service: 09/25/24 Procedure(s): CT abdomen pelvis w IV con Accession Number(s): [id number] cc: Zev Sanders MD; Madeleine Aparicio MD Report Number: [id number]: Total DLP = 579.00 mGy-cm CLINICAL HISTORY: [...] in OV> 09/25/241923 DD/ 22 TD/TT: 09/25/241922 Steel Engraver: Procedure Note Donotuseinterpreter, Image - 09/25/[address] [place] [address] [address] Scan Report Signed Patient: Deysi Pfeiffer DMR#: [id number] : 1970Acct:[id number] Age/Sex: 54 / FADM Date: 09/25/24 Loc: HO.ED Attending Dr: Ordering Physician: Madeleine Aparicio MD Date of Service: 09/25/24 Procedure(s): CT abdomen pelvis w IV con Accession Number(s): [id number] cc: Zev Sanders MD; Madeleine Aparicio MD Report Number: [id number]: Total DLP = 579.00 mGy-cm CLINICAL HISTORY: [...] in OV> 09/25/241923 DD/ 22 TD/TT: 09/25/241922 Steel Engraver: [facility] External Provider IMG CT PROCEDURES Edited Result - Final * XR Chest 1 View (09/25/2024 6:04 PM EDT) Anatomical Region Laterality Modality Chest Radiographic Joy ging 09/25/2024 6:04 PM EDT Narrative 09/25/2024 6:05 PM EDT [place] [address] XRay Report Signed Patient: Deysi Pfeiffer MR#: [id number] : 1970 Acct:[id number] Age/Sex: 54 / F ADM Date: 09/25/24 Loc: HO.ED Attending Dr: Ordering Physician: Madeleine Aparicio MD Date of Service: 09/25/24 Procedure(s): XR chest 1V Accession Number(s): [id number] cc: Zev Sanders MD; Madeleine Aparicio MD [...] in OV> 09/25/241804 DD/ 03 TD/TT: 09/25/241803 Steel Engraver: Procedure Note Donotuseinterpreter, Image - 09/25/[address] [address] XRay Report Signed Patient: Deysi Pfeiffer [facility]#: [id number] : 1970Acct:[id number] Age/Sex: 54 / FADM Date: 09/25/24 Loc: HO.ED Attending Dr: Ordering Physician: Madeleine Aparicio MD Date of Service: 09/25/24 Procedure(s): XR chest 1V Accession Number(s): [id number] cc: Zev Sanders MD; Madeleine Aparicio MD [...] in OV> 09/25/241804 DD/ 03 TD/TT: 09/25/241803 Steel Engraver: [facility] External Provider IMG XR PROCEDURES Final Result * (ABNORMAL) VENOUS BLOOD GAS (09/25/2024 4:57 PM EDT) VBG pH 7.49(H) 7.32 - 7.43 [facility] Comment:METER #: [id number] additional_comment: Cb patelha VBG PCO2 42 mmHg [facility] Comment:METER #: [id number] additional_comment: Cb patelha VBG PO2 72 mmHg [facility] Comment:METER #: [id number] additional_comment: Cb patelha VBG Base Excess 9.1 mmol/L [facility] Comment:METER #: [id number] additional_comment: Cb patelha VBG HCO3 33(H) 22 - 26 mmol/L [facility] Comment:METER #: [id number] additional_comment: Joshua weber O2 Sat, Lefty 96.0 % [facility] Comment:METER #: [id number] additional_comment: Joshua weber 09/25/2024 4:57 PM EDT 09/25/2024 5:04 PM EDT us Generic External Data Provider LAB BLOOD ORDERAB LES Final Result Performing Organization Address [facility] Co de Phone Number [facility] [address] [place] [phone] * HOLD LT BLUE - POSSIBLE COAG (09/25/2024 4:47 PM EDT) Hold Lt Blue - Possible Coag SEE NOTE [facility] Comment:Specimen will be hel d untested for 4 hours. Call Hematologyif testing is desired. 09/25/2024 4:47 PM EDT 09/25/2024 5:06 PM EDT us Generic External Data Provider LAB BLOOD ORDERAB LES Final Result Performing Organization Address [facility] Co de Phone Number [facility] [address] [place] [phone] * Lactic Acid (09/25/2024 4:47 PM EDT) Lactic Acid 0.9 0.5 - 2.0 mmol/L [facility] 09/25/2024 4:47 PM EDT 09/25/2024 4:55 PM EDT Generic External Data Provider LAB BLOOD ORDERAB LES Final Result Performing Organization Address [facility] Co de Phone Number [facility] [address] [place] [phone] * SARS-CoV-2 RNA, Influenza A/B, and RSV RNA, Ql NAAT (09/25/2024 4:46 PM EDT) Influenza A PCR NEGATIVE Negative [facility] Influenza B PCR NEGATIVE Negative [facility] Resp Syncy Virus RNA Qual PCR NEGATIVE Negative [facility] SARS COV2 PCR NEGATIVE Negative [facility] Comment:All test results mus t [...] use by authorized laboratories.Testing performed on the [employer] GeneXpert utilizingreal-time RT-PCR.All SARS CoV2 and positive influenza A/B results arereported to [facility]. 09/25/2024 4:46 PM EDT 09/25/2024 4:55 PM EDT us Generic External Data Provider LAB MICROBIOLOGY - GENERAL ORDERABLES Final Result [facility] [address] [place] [phone] * (ABNORMAL) Urinalysis, Complete, with Reflex to Culture (09/25/2024 3:46 PM EDT) Color Urine Yellow [facility] Appearance Urine Clear [facility] PH 5.5 5.0 - 9.0 [facility] Glucose Urine UA Negative Negative mg/dL [facility] Urine Blood Negative Negative [facility] Specific [place] - Urine 1.010 1.005 - 1.025 [facility] Urine Protein Negative Neg-Trace mg/dL [facility] Urine Ketones Negative Negative mg/dL [facility] Nitrite Urine Negative Negative [facility] Leukocyte Esterase Urine Trace(A) Negative [facility] RBC Urine 0-2 0 - 2 /HPF [facility] Urine WBC 0-5 0 - 5 /HPF [facility] Urine Squamous Epithelial Cell 0-2 0 - 2 /HPF [facility] Urine Bacteria None Seen None Seen [facility] Hyaline Casts, Urine 0-2 0 - 2 /LPF [facility] 09/25/2024 3:46 PM EDT 09/25/2024 3:49 PM EDT Narrative [facility] - 09/25/2024 4:22 PM EDT Urine, Clean Catch Generic External Data Provider LAB URINE ORDERAB LES Final Result Performing Organization Address [facility] Co de Phone Number [facility] [address] [place] [phone] * HCG, Qualitative, Urine (09/25/2024 3:46 PM EDT) Urine NEGATIVE NEGATIVE [facility] Comment:This test was develo ped to detect early . Falsenegative results may occur after the 5th - 7th week ofpregnancy when using this test method. If clinicallyindicated, consider a serum hCG. 09/25/2024 3:46 PM EDT 09/25/2024 3:49 PM EDT us Generic External Data Provider LAB URINE ORDERAB LES Final Result Performing Organization Address [facility] Co de Phone Number [facility] [address] [place] [phone] * Cologuard?? colon cancer screening (03/10/2023 2:14 PM EST) Cologuard Result Negative Negative 03/21/20 1:56 AM EST [facility] (CLIA #:[id number]) Comment: NEGATIVE TEST RESULT. A negative Cologuard [...] Dunn et al, N Engl J Med 2014;370(14):9928-5459) The normal value (reference range) for this assay is negative. COLOGUARD RE-SCREENING RECOMMENDATION: Periodic colorectal cancer screening is an important part of preventive healthcare for asymptomatic individuals at average risk for colorectal cancer. Following a negative Cologuard result, the [place] Cancer Society and U.S. Multi-Society Task Force screening guidelines recommend a Cologuard re-screening interval of 3 years. References: [place] Cancer Society Guideline for Colorectal Cancer Screening: https://www.cancer.org/cancer/mbvcj-vezoch-sxfvqw/rntofcfda-ibsyzhizl-gdvzbxm/ac s-rec ommendations.html.; Edgar DK, Antonio STONE, Salma CorderoK, Colorectal Cancer Screening: Recommendations for Physicians and Patients from the U.S. Multi-Society Task Force on Colorectal Cancer Screening , Am J Gastroenterology 2017; 112:9425-9074. TEST DESCRIPTION: Composite algorithmic analysis of stool [...] Luis Robles al, N Engl J Med 2014;370(14):0031-1392.) Cologuard may produce a false negative or false positive result (no colorectal cancer or precancerous polyp present at colonoscopy follow up). A negative Cologuard test result does not guarantee the absence of CRC or advanced adenoma (pre-cancer). The current Cologuard screening interval is every 3 years. ([place] Cancer Society and U.S. Multi-Society Task Force). Cologuard performance data in a 10,000 patient pivotal study using colonoscopy as the reference method can be accessed at the following location: www.WebMD/results. Additional description of the Cologuard test process, warnings and precautions can be found at www.[employer] Medicalrd.LABOMAR. Stool specimen (specimen) 03/10/2023 2:14 PM EST 03/12/2023 8:29 PM EST us Zev Sanders MD LAB MOLECULAR DIAGNOSTICS O RDERABLES Final Result [facility] (CLIA #:[id number]) [address] [place] [address], * HPV E6/E7 RFLX VANNESSA 16 18/45 (01/15/2022 10:19 AM EDT) HPV mRNA E6/E7 rflx Not Detected Not Detected [facility] Comment: Methodology: Metal Casket Assembler-Mediated Amplification This assay detects E6/E7 viral messenger RNA (mRNA) from 14 high-risk HPV types (16,18,31,33,35,39,45,51,52,56,58,59,66,68). Cervical sources are required for HPV testing. If a vaginal source from a patient who has had a total hysterectomy with removal of cervix was submitted, please contact the testing laboratory for alternative testing options. For additional information, please refer to http://education.Hyper9.LABOMAR/faq/ROU306x3 (This link if provided for information/ educational purposes only.) THIS TEST WAS PERFORMED AT: [facility] [address] [place] [address] [address] FLO[address],[place] [address] ESPERANZA CRUZ MD 01/15/2022 10:1 9 AM [...] INDEX 0.09 <1.00 [facility] Comment: HCV antibody was non-reactive. There is no laboratory evidence of HCV infection. In most cases, no further action is required. However, if recent HCV exposure is suspected, a test for HCV RNA (test code 43035) is suggested. For additional information please refer to http://education.[employer]/faq/VFI52p7 (This link is being provided for informational/ educational purposes only.) 11/12/2021 12:0 9 PM EDT Zev Sanders MD HISTORICAL/NON ORDERABLE LA BS Final Result Performing Organization Address City/[facility]/ZIP Co de Phone Number [facility] [address] * (ABNORMAL) LIPID PANEL, STANDARD (11/12/2021 [...] of LDL-C. Hilario MOON et al. JUANA. 2013;310(19): 5383-1707 (http://education.Incuron.LABOMAR/faq/CSY809) Non-HDL Cholesterol 129 <130 mg/dL (calc) [facility] Comment: For patients with diabetes plus 1 major ASCVD risk factor, treating to a non-HDL-C goal of <100 mg/dL (LDL-C of <70 mg/dL) is considered a therapeutic option. Triglycerides 120 <150 mg/dL [facility] 11/12/2021 12:0 9 PM EDT us Zev Sanders MD LAB BLOOD ORDERABLES Final Result Performing Organization Address City/State/[facility] Co de Phone Number [facility] [address] * Mammography Report 1 (10/17/2021 2:30 [...] Most Recently Relevant to Health Maintenance Insurance [employer] Care Teams Bookmobile Driver Relationship Specialty Start Date End Date Zev Sanders MD [address] [place] [address] PCP - General Internal Medicine 11/16/19 Michelle Quiroz, BIANCA [address] [place] [address] Registered Nurse Family Medicine 10/04/24 Gonzalo Lima 10/04/24
== END 2024-11-11 14:21 | disposition home or self-care (01) ==
PROVIDERS: PCP Internal Medicine; Visit Provider Nurse Practitioner Family
DX: Z79.891 Long term (current) use of opiate analgesic (principal); M54.2 Cervicalgia; M51.369 Other intervertebral disc degeneration, lumbar region without mention of lumbar back pain or lower extremity pain; M47.816 Spondylosis without myelopathy or radiculopathy, lumbar region; G89.4 Chronic pain syndrome
CPT/HCPCS: 99214

== ENCOUNTER → 2024-11-11 13:52 | Outpatient (BNVA) | payer MEDICAID, SELFPAY | PROVIDERS: PCP Internal Medicine; Visit Provider Nurse Practitioner Family | DX: M54.2 Cervicalgia (principal); M47.816 Spondylosis without myelopathy or radiculopathy, lumbar region; G89.4 Chronic pain syndrome; Z79.891 Long term (current) use of opiate analgesic | CPT/HCPCS: 99212 ==

== ENCOUNTER 2024-12-09 13:49 | Outpatient (AMB) | payer MEDICAID, SELFPAY ==
--- OUTSIDE RECORDS SUMMARY | 2024-12-07 15:45 | XMS_ITS | Encounter Summary ---
Author Organization [employer] Address [address] [place] [address] [address], [place] [address] Care Team Providers Care Slubber Hand Name Role Phone Zev Sanders MD Primary Care Provider [phone] Gonzalo Lima Unavailable Benedict Lima RN Unavailable [phone] Reason for Referral * Imaging (Urgent) - Authorized Specialty Diagnoses / Procedures Referred By Armando ye Referred To Contact Cardiology Diagnoses Lower limb pain, anterior, right Procedures Vascular US lower extremity venous duplex right Zev Sanders MD [address] [place] [phone] Phone: tel: fax: [address] Phone: tel: fax: Referral ID Status Reason Start Date Expiration Date Visits Requested Visits Authorized [id number] Authorized Perform Procedure 12/07/2024 12/07/2025 1 1 * Imaging (Routine) - Authorized Specialty Diagnoses / Procedures Referred By Contpilar ye Referred To Contact Cardiology Diagnoses Lower limb pain, anterior, right Procedures Vascular US ankle brachial index (VALENTIN) without exercise Zev Sanders MD [address] [place] [phone] Phone: tel: fax: [address] Phone: tel: fax: Referral ID Status Reason Start Date Expiration Date Visits Requested Visits Authorized [id number] Authorized Perform Procedure 12/07/2024 12/07/2025 1 1 Reason for Visit * Reason Comments Hospital discharge follow-up Encounter Details Date Type Department Care Team ([facility] st Contact Info) Description 12/07/2024 3:45 PM EDT Office Visit [facility] [address] [place] [address] Zev Sanders MD [address] [place], [place] [phone] Lower limb pain, anterior, right (Primary Dx); Essential hypertension; Asthma-chronic obstructive pulmonary disease overlap syndrome (CMS/HCC); Other migraine without status migrainosus, not intractable Social History Tobacco Use Types Packs/Day Years [...] Sign Reading Time Taken Comments Blood Pressure 145/83 12/07/2024 4:06 PM EDT Pulse 80 12/07/2024 4:06 PM EDT Temperature - - Respiratory Rate 20 12/07/2024 4:06 PM EDT Oxygen Saturation 96% 12/07/2024 4:06 PM EDT Inhaled Oxygen Concentration - - Weight 55.3 kg (122 lb) 12/07/2024 4:06 PM EDT Height 160.7 cm (5' 3.25 ) 12/07/2024 4:06 PM ED T Body Mass Index 21.44 12/07/2024 4:06 PM EDT documented in this encounter Progress Notes * Zev Sanders MD - 12/07/2024 3:45 PM EDT SUBJECTIVE Deysi Izquierdo is a 54 y.o. female who presents for Hospital discharge follow-up. HPI Is here for hospital discharge follow-up. Was evaluated at the emergency department on November 22, 2024 with weakness of 3 days duration. Associated with a mild productive cough, fevers and chills at home.. No nausea or vomiting. Patient was brought in by EMS with a low blood pressure at 62/42 mm/Hg. Received IV fluid 600 cc prior to arrival. BP improved in the emergency department but patient became tachycardic. X-ray consistent with pneumonia. D-dimer elevated on admission CT angio chest performed did not show any pulmonary embolism Labs shows leukocytosis at 12.5 with normal lactic acid. Started on ceftriaxone IV and azithromycin. CT scan of the brain did not show any acute intracranial abnormality. There was a soft tissue density in the left mastoid cells: Nonspecific MRI of the brain showed nonspecific fluid in the mastoids left greater than right which was nonspecific. Patient was complaining of headache and reports improvement in her headache She was clinically stable for discharge on November 25. Discharged on p.o. antibiotics The prescribed metoprolol is not well-tolerated and causes her nausea and vomiting. Patient has decided to stop it. She has resumed her lisinopril. Unfortunately she does not check her blood pressureat home. She is still complaining of the headaches and also complaining of the right lower limb edema that started after her discharge. Besides these 2 complaints she is overall back to her baseline. Problem List[1] Allergies[2] Medications Ordered Prior to Encounter[3] Review of Systems Constitutional: Negative for appetite change, chills and diaphoresis. Respiratory: Negative for cough, choking and shortness of breath. OBJECTIVE Vitals: 12/07/24 1606 BP: (!) 145/83 BP Location: Left arm Patient Position: Sitting BP Cuff Size: Adult Pulse: 80 Resp: 20 SpO2: 96% Weight: 122 lb (55.3 kg) Height: 5' 3.25 (1.607 m) Physical Exam Constitutional: General: She is not in acute distress. Appearance: Normal appearance. She is not ill-appearing, toxic-appearing or diaphoretic. Cardiovascular: Rate and Rhythm: Normal rate. Pulmonary: Effort: Pulmonary effort is normal. No respiratory distress. Breath sounds: Decreased air movement present. No stridor. Examination of the left-upper field reveals wheezing. Decreased breath sounds and wheezing present. No rhonchi. Neurological: General: No focal deficit present. Mental Status: She is alert. Psychiatric: Mood and Affect: Mood normal. Assessment/Plan Assessment/Plan Diagnoses and all orders for this visit: Lower limb pain, anterior, right Comments: Unclear etiology Orders: - Vascular US ankle brachial index (VALENTIN) without exercise; Future - Vascular US lower extremity venous duplex right; Future Essential hypertension Comments: Elevated BP Advised to check the blood pressure at home and to keep the log to report in 3 days to the office. Asthma-chronic obstructive pulmonary disease overlap syndrome (CMS/HCC) Comments: To continue with home oxygen supplementation and the same medication Follow-up with pulmonology as scheduled. Other migraine without status migrainosus, not intractable - SUMAtriptan (Imitrex) 25 MG tablet; Take 1 tablet (25 mg) by mouth 1 (one) time if needed for migraine for up to 1 dose. May repeat dose once in 2 hours if no relief. Do not exceed 2 doses in 24 hours. Chart reviewed: h/o migraine. Trial of sumatriptan was recommended. [1] Patient Active Problem List Diagnosis Olecranon bursitis, right elbow Asthma-chronic obstructive pulmonary disease overlap syndrome (CMS/HCC) Chronic back pain Essential hypertension Menopausal symptom Migraine Mood disorder (CMS/HCC) Seasonal allergies Tobacco dependence syndrome [2] Allergies Allergen Reactions Penicillins Rash RASH ON MOUTH WHEN A CHILD Shellfish Allergy Rash [3] Current Outpatient Medications on File Prior to Visit Medication Sig Dispense Refill budesonide-formoterol (Symbicort) 160-4.5 MCG/ACT inhaler Inhale 2 puffs in the morning and at bedtime. cholecalciferol VITAMIN D (Vitamin D-3) 50 MCG (1999 UT) tablet TAKE 1 TABLET EVERY MORNING 90 tablet 0 docusate sodium (Colace) 100 MG capsule Take 1 tab po bid prn constipation 60 capsule 3 esomeprazole (NexIUM) [address] capsule TAKE ONE CAPSULE EVERY MORNING 90 capsule 1 ipratropium-albuterol (Duo-Neb) 0.5-2.5 mg/3 mL nebulizer solution Take 3 mL by nebulization Every 6-8 hours as needed for wheezing. levalbuterol (Xopenex) 0.63 MG/3ML nebulizer solution Take 1 ampule by nebulization every 8 (eight)hours if needed for wheezing. 72 mL 11 lisinopril 10 MG tablet TAKE ONE TABLET EVERY MORNING 90 tablet 1 mirtazapine (Remeron) 45 MG tablet Take 1 tablet by mouth at bedtime. montelukast (Singulair) 10 MG tablet Take 1 tablet by mouth at bedtime. naloxone (Narcan) 4 mg/0.1 mL nasal spray oxyCODONE (Roxicodone) 5 MG immediate release tablet [...] mg) by mouth at bedtime. 30 tablet 0 tiotropium (Spiriva Respimat) 2.5 MCG/ACT inhaler INHALE TWO PUFF BY MOUTH EVERY MORNING 4 g 5 Ventolin HFA 108 (90 Base) MCG/ACT inhaler Inhale 2 puffs every 6 (six) hours if needed for wheezing. [DISCONTINUED] pregabalin (Lyrica) 150 MG capsule TAKE ONE CAPSULE TWICE DAILY IN THE MORNING AND AT BEDTIME 60 capsule 0 No current facility-administered medications on file prior to visit. documented in this encounter Plan of Treatment Upcoming Encounters Date Type Department Care Team (Late st Contact Info) Description 01/17/2025 3:15 PM EDT Office Visit [facility] MED [facility] P[facility] [address] [place] [address] Zev Sanders MD [address] [place] [address] documented as of this encounter Visit Diagnoses Diagnosis Lower limb pain, anterior, right- Primary Essential hypertension Unspecified essential hypertension Asthma-chronic obstructive pulmonary disease overlap syndrome (CMS/HCC) Other migraine without status migrainosus, not intractable documented in this encounter Additional Health Concerns Assessment Noted Time PHQ-9 Depression Total Score: 2 10/15/19 25 11:49 AM EDT documented as of this encounter Care Teams Slubber Hand Relationship Specialty Start Date End Date Zev Sanders MD [address] [place] [phone] PCP - General Internal Medicine 11/16/19 Gonzalo Lima 10/04/24 Benedict Lima, RN [address] [place] [phone] Registered Nurse Family Medicine 12/06/24 documented as of this encounter
--- NOTE | 2024-12-09 13:49 | A.OFFVIS_ITS ---
Vital Signs 12/09/24 13:55 Height 5 ft 4 in Weight 120 lb 2 oz BMI 20.6 BP 161/86 H Blood Pressure Location Lt brachial Position Sitting Pulse 89 Pulse Source Pulse Oximeter Pulse Oximetry (%) 97 Oxygen Delivery Method Nasal Cannula Oxygen Flow Rate 3 Intake Visit Reasons: Pill count Intake Note: Deysi comes in today for a pill count to oxycodone, patient should have 72 tablets and presents with 72 tablest which she last took today 12/09/24 at 8am. 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 She is supposed to have #72 pills in her possession and presents with #72 pills. This demonstrates a responsible attitude in regards to her opioid regimen. Patient reports adequate analgesia on her current regime without side effects. Pain is rated at 6/10, mainly affecting her chronic neck and lower back areas with movements, walking or prolonged standing. Patient utilizes oxygen 2-3 L with rest or sitting and 3-4 L with ambulation. She is followed by [facility]. Patient reports recent ER visit last month for pneumonia and has completed antibiotic treatment with improvement in her symptoms. Patient denies any fever, chills, weight loss, abdominal or groin pain, constipation, urinary retention, sedation, nausea, vomiting, constipation, sedation, dizziness, or urinary retention. [facility] Medical History Current non-smoker but past smoking history unknown Respiratory failure with hypoxia COPD exacerbation Pre-op examination History of OCD (obsessive compulsive disorder) History of panic attacks Anxiety and depression Radiculopathy, lumbar region HTN (hypertension) Sacroiliitis COPD (chronic obstructive pulmonary disease) Asthma Allergic rhinitis Disc degeneration, lumbar Surgical History History of surgery History of appendectomy Hx of tonsillectomy Status post excision of lipoma History of tubal ligation Hx of excision of mass History of surgery History of laparoscopic cholecystectomy History of esophagogastroduodenoscopy (EGD) History of umbilical hernia repair History of incision and drainage Family History Family/Other Cervical cancer Family/Other Stomach cancer Social History Household Members: Significant Other and Family Household Members Other:: grandson Housing: House Do you presently have visiting nurse or other home services: No Alcohol intake: never Comment: Significant other bedside Patient Tobacco Use Status: Former Tobacco user Tobacco use type: Cigarette Substance Use Type: Marijuana Advance Directives Date on File: 04/09/24 service: No Current occupational status: unemployed Sexual orientation: Straight/Heterosexual Gender identity: Female Review of Systems Const All systems reviewed & are unremarkable except as noted in HPI and below Physical Exam General: Appears afebrile. Alert and oriented. Mood and affect appropriate. Pleasant. Follows and participates in conversation appropriately. Respiratory effort is unlabored. No cough. O2 at 3L/min continuos. Able to transition from sit to stand unassisted. Ambulates with antalgic gait, mild limping. Eyes General: appearance normal, both eyes and all related structures Resp Effort & Inspection: normal respiratory effort, able to speak in complete sentences, no cough and no respiratory distress Psych Appearance: grossly normal and well kempt Mental Status: mental status grossly normal Speech and movement: Normal speech and movement present Affect: normal affect Attitude: cooperative Thought process: Normal thought process present Thought content: Normal thought content present, suicidality (none), no hallucinations and Depressive thoughts present Insight: Good insight present (Psych) Judgement: Good judgement present (Psych) Assessment & Plan Assessment & Plan (1) Opioid contract exists: Code(s): Z79.891 - USP (current) use of opiate analgesic Category: Medical (2) Cervicalgia: Code(s): M54.2 - Cervicalgia Category: Medical (3) Disc degeneration, lumbar: Code(s): M51.36 - Other intervertebral disc degeneration, lumbar region Category: Medical (4) Spondylosis of lumbar region without myelopathy or radiculopathy: Code(s): M47.816 - Spondylosis without myelopathy or radiculopathy, lumbar region Category: Medical (5) Chronic pain syndrome: Code(s): G89.4 - Chronic pain syndrome Category: Medical Plan Patient has shown accountability for her medication regimen and the pill count was accurate. Masspat was reviewed and without concerns. No obvious signs of diversion, abuse or misuse of the opioid medications. Patient reports reasonable analgesia on current medication regime. Prescription sent for Oxycodone 5mg po TID prn with an advanced date of 01/02/25. Patient has Narcan script at home. She also takes pregabalin 150 mg BID prescribed by her PCP. Patient to follow-up in the office in 4-5 weeks for pill count and sooner as needed. Medications: Refilled oxycodone Partial Fill upon patient request. 5 mg PO TID PRN 90 tabs 0RF pain 30 days M46.1 - Sacroiliitis, not elsewhere classified, M47.816 - Spondylosis without myelopathy or radiculopathy, lumbar region, M51.36 - Other intervertebral disc degeneration, lumbar region Coding Level of Care Code Est Pt Level 4 (50500) Complex EM visit Add On G2211 Diagnoses Opioid contract exists Z79.891 Cervicalgia M54.2 Disc degeneration, lumbar M51.36 Spondylosis of lumbar region without myelopathy or radiculopathy M47.816 Chronic pain syndrome G89.4
[2024-12-09 13:55] VITALS: BP 161/86; PULSE 89; O2SAT 97; BMI 20.6
--- OUTSIDE RECORDS SUMMARY | 2024-12-09 17:41 | XMS_ITS | Encounter Summary ---
Author Organization [employer] Address [address] [facility] 7t [place] [address] Care Team Providers Care Anchor Operator Name Role Phone Zev Sanders MD Primary Care Provider [phone] Michelle Quiroz RN Unavailable [phone] Gonzalo Lima Unavailable Benedict Lima RN Unavailable [phone] Reason for Visit * Reason Onset Date Comments ER Follow-up 10/04/2024 Encounter Details Date Type Department Care Team ([facility] st Contact Info) Description 10/04/2024 Telephone [facility] MED [facility] PEDS [address] [place], [place] [phone] Zev Sanders MD [address] [place], [place] [phone] ER Follow-up Social History Tobacco Use Types Packs/Day Years [...] the past 12 months, has t he [employer], gas, oil or water [employer] threatened to shut off services in your [...] encounter Miscellaneous Notes * Telephone Encounter - Ernestine Anand - 10/04/2024 11:15 AM EDT Patient daughter (not on hipaa) calling to report ED visit on : Date: [facility]: 10/01/24 Seen for: Trouble breathing Symptomatic No Requesting a referral to reeler operator at [facility]. Contact pt at [phone] documented in this encounter Plan of Treatment Upcoming Encounters Date Type Department Care Team (Late st Contact Info) Description 01/17/2025 3:15 PM EDT Office Visit [facility] MED [facility] PEDS [address] [place] [address] Zev Sanders MD [address] [place] [address] documented as of this encounter Visit Diagnoses Not on filedocumented in this encounter Additional Health Concerns Assessment Noted Time PHQ-9 Depression Total Score: 7 10/14/19 24 11:59 AM EDT documented as of this encounter Care Teams Anchor Operator Relationship Specialty Start Date End Date Zev Sanders MD [address] [place] [address] PCP - General Internal Medicine 11/16/19 Michelle Quiroz, BIANCA [address] [place], [place] [phone] Registered Nurse Family Medicine 10/04/24 12/06/24 Gonzalo Lima 10/04/24 Benedict Lima RN [address] [place], [place] [phone] Registered Nurse Family Medicine 12/06/24 documented as of this encounter
--- OUTSIDE RECORDS SUMMARY | 2024-12-09 17:41 | XMS_ITS | Encounter Summary ---
Author Organization [employer] Address [address] [facility] 7[address] [place] [address] Care Team Providers Care Dyed Yarn Operator Name Role Phone Zev Sanders MD Primary Care Provider [phone] Michelle Quiroz RN Unavailable [phone] Gonzalo Lima Unavailable Benedict Lima RN Unavailable [phone] Reason for Visit * Reason Onset Date Comments Chart Prep 12/06/2024 Encounter Details Date Type Department Care Team ([facility] st Contact Info) Description 12/06/2024 Telephone [facility] CHC MED & PEDS [address] [place], [place] [phone] Zev Sanders MD [address] [place], [place] [phone] Chart Prep Social History Tobacco Use Types Packs/Day Years [...] encounter Miscellaneous Notes * Telephone Encounter - Maggie Small MA - 12/06/2024 11:30 AM EDT Chart Prep Labs: done Images: done Referrals: complete Vaccines due: Hep B and Hep A Screenings: mammogram, STI screening, and LMP Overdue care gaps: Tobacco documented in this encounter Plan of Treatment Upcoming Encounters Date Type Department Care Team (Late st Contact Info) Description 01/17/2025 3:15 PM EDT Office Visit [facility] CH[facility] MED & PEDS [address] [place] [address] Zev Sanders MD [address] [place] [address] documented as of this encounter Visit Diagnoses Not on filedocumented in this encounter Additional Health Concerns Assessment Noted Time PHQ-9 Depression Total Score: 2 10/15/19 25 11:49 AM EDT documented as of this encounter Care Teams Dyed Yarn Operator Relationship Specialty Start Date End Date Zev Sanders MD [address] [place] [address] PCP - General Internal Medicine 11/16/19 Michelle Quiroz RN [address] [place], [place] [address] Registered Nurse Family Medicine 10/04/24 12/06/24 Gonzalo Lima 10/04/24 Benedict Lima RN [address] [place], [place] [phone] Registered Nurse Family Medicine 12/06/24 documented as of this encounter
--- OUTSIDE RECORDS SUMMARY | 2024-12-09 17:41 | XMS_ITS | Encounter Summary ---
Author Organization [employer] Address [address] [facility] 7t [place] [address] Care Team Providers Care Gi Asst Name Role Phone Zev Sanders MD Primary Care Provider [phone] Michelle Quiroz RN Unavailable [phone] Gonzalo Lima Unavailable Benedict Lima RN Unavailable [phone] Encounter Details Date Type Department Care Team (Late st Contact Info) Description 07/21/2023 Orders Only [facility] CHC MED & PEDS [address] [place], [place] [phone] Zev Sanders MD [address] [place], [place] [phone] Social History Tobacco Use Types Packs/Day Years [...] Upcoming Encounters Date Type Department Care Team ([facility] st Contact Info) Description 01/17/2025 3:15 PM EDT Office Visit [facility] MED & PEDS [address] [place] [address] Zev Sanders MD [address] [place] [address] documented as of this encounter Visit Diagnoses Not on filedocumented in this encounter Care Teams Gi Asst Relationship Specialty Start Date End Date Zev Sanders MD [address] [place] [address] PCP - General Internal Medicine 11/16/19 Michelle Quiroz RN [address] [place] [address] Registered Nurse Family Medicine 10/04/24 12/06/24 Gonzalo Lima 10/04/24 Benedict Lima RN [address] [place] [address] Registered Nurse Family Medicine 12/06/24 documented as of this encounter
--- OUTSIDE RECORDS SUMMARY | 2024-12-09 17:41 | XMS_ITS | Encounter Summary ---
Author Organization [employer] Address [address] [facility] 7t [place] [address] Care Team Providers Care Chrome Plater Helper Name Role Phone Zev Sanders MD Primary Care Provider [phone] Michelle Quiroz RN Unavailable [phone] Gonzalo Lima Unavailable Benedict Lima RN Unavailable [phone] Reason for Visit * Reason Onset Date Comments Med Refill 07/21/2023 Encounter Details Date Type Department Care Team (Late st Contact Info) Description 07/21/2023 Telephone [facility] [address] [place] [address] Zev Sanders MD [address] [place], [place] [phone] Med Refill Social History Tobacco Use Types Packs/Day Years Used Date Smoking Tobacco: Former Cigarettes 2019 Smokeless Tobacco: Never Alcohol Use Standard Drinks/Week Comments Never 0 (1 standard drink = 0.6 oz pur e alcohol) Housing Stability Answer Date Recorded What is your housing situation today? I have kiran lucas 01/17/[address] you li [...] 150 MG capsule To be sent to: [facility] - [place], [place] - [address] [place] [address] documented in this encounter Plan of Treatment Upcoming Encounters Date Type Department Care Team ([facility] st Contact Info) Description 01/17/2025 3:15 PM EDT Office Visit [facility] CH[facility] MED & PEDS [address] [place] [address] Zev Sanders MD [address] [place] [address] documented as of this encounter Visit Diagnoses Not on filedocumented in this encounter Care Teams Chrome Plater Helper Relationship Specialty Start Date End Date Zev Sanders MD [address] [place] [address] PCP - General Internal Medicine 11/16/19 Michelle Quiroz RN [address] [place] [address] Registered Nurse Family Medicine 10/04/24 12/06/24 Gonzalo Lima 10/04/24 Benedict Lima RN [address] [place] [address] [place] [address] Registered Nurse Family Medicine 12/06/24 documented as of this encounter
--- OUTSIDE RECORDS SUMMARY | 2024-12-09 17:41 | XMS_ITS | Encounter Summary ---
Author Organization [employer] Address [address] [facility] 7t [place] [address] Care Team Providers Care Wool Broker Name Role Phone Zev Sanders MD Primary Care Provider [phone] Gonzalo Lima Unavailable Benedict Lima RN Unavailable [phone] Encounter Details Date Type Department Care Team (Latest Contact Info) Description 12/07/2024 Travel Social History Tobacco Use Types Packs/Day [...] Description 01/17/2025 3:15 PM EDT Office Visit [facility] MED & PEDS [address] [place] [address] Zev Sanders MD [address] [place] [address] documented as of this encounter Visit Diagnoses Not on filedocumented in this encounter Additional Health Concerns Assessment Noted Time PHQ-9 Depression Total Score: 2 10/15/19 11:49 AM EDT documented as of this encounter Care Teams Wool Broker Relationship Specialty Start Date End Date Zev Sanders MD [address] [place] [address] PCP - General Internal Medicine 11/16/19 Gonzalo Lima 10/04/24 Benedict Lima, RN [address] [place] [address] Registered Nurse Family Medicine 12/06/24 documented as of this encounter
--- OUTSIDE RECORDS SUMMARY | 2024-12-09 17:41 | XMS_ITS | Encounter Summary ---
Author Organization [employer] Address [address] [facility] 7t [place] [address] Care Team Providers Care Intern Architect Name Role Phone Zev Sanders MD Primary Care Provider [phone] Michelle Quiroz RN Unavailable [phone] Gonzalo Lima Unavailable Benedict Lima RN Unavailable [phone] Reason for Visit * Reason Comments Med Refill Encounter Details Date Type Department Care Team (Late st Contact Info) Description 10/28/2024 Refill [facility] MED & PEDS [address] [place], [place] [phone] Darlene Gant MD [address] [place] [address] Chronic low back pain, unspecified back pain [...] Upcoming Encounters Date Type Department Care Team ([facility] st Contact Info) Description 01/17/2025 3:15 PM EDT Office Visit [facility] CH[facility] MED & PEDS [address] [place] [address] Zev Sanders MD [address] [place] [address] documented as of this encounter Visit Diagnoses Diagnosis Chronic low back pain, unspecified back pain laterality, unspecified whether sciatica present documented in this encounter Additional Health Concerns Assessment Noted Time PHQ-9 Depression Total Score: 2 10/15/19 25 11:49 AM EDT documented as of this encounter Care Teams Intern Architect Relationship Specialty Start Date End Date Zev Sanders MD [address] [place] [address] PCP - General Internal Medicine 11/16/19 Michelle Quiroz RN [address] [place] [address] Registered Nurse Family Medicine 10/04/24 12/06/24 Gonzalo Lima 10/04/24 Benedict Lima RN [address] [place] [address] Registered Nurse Family Medicine 12/06/24 documented as of this encounter
--- OUTSIDE RECORDS SUMMARY | 2024-12-09 17:41 | XMS_ITS | Encounter Summary ---
Author Organization [employer] Address [address] [facility] [address] 7[address] [place] [address] Care Team Providers Care Oxidized Finish Plater Name Role Phone Zev Sanders MD Primary Care Provider [phone] Michelle Quiroz RN Unavailable [phone] Gonzalo Lima Unavailable Benedict Lima RN Unavailable [phone] Encounter Details Date Type Department Care Team (Late st Contact Info) Description 11/25/2024 Orders Only [facility] CHC MED & PEDS [address] [place] [address] Provider, MD Josh Social History Tobacco Use [...] Upcoming Encounters Date Type Department Care Team ([facility] Contact Info) Description 01/17/2025 3:15 PM EDT Office Visit [facility] MED & PEDS [address] [place] [address] Zev Sanders MD [address] [place] [address] documented as of this encounter Procedures Procedure Name Priority Date/Time Associated Diagnosis Comments MRI BRAIN WO CONTRAST Routine 11/24/2024 1:38 PM EDT XR CHEST 1 VIEW Routine 11/24/2024 1:33 PM EDT ECG 12-LEAD Routine 11/23/2024 11:53 AM EDT ECG 12-LEAD Routine 11/23/2024 11:52 AM EDT documented in this encounter Results * MRI BRAIN WO CONTRAST (11/24/2024 1:38 PM EDT) Anatomical Region Laterality Modality Magnetic Resonan ce us Historical Provider MD TORRES MRI PROCEDURES Final Result * XR Chest 1 View (11/24/2024 1:33 PM EDT) Anatomical Region Laterality Modality Chest Radiographic Joy ging us Historical Provider MD TORRES XR PROCEDURES Final R esult * ECG 12 lead (11/23/2024 11:53 AM EDT) us Historical Provider ECG ORDERABLES Final Res ult * ECG 12 lead (11/23/2024 11:52 AM EDT) us Historical Provider ECG ORDERABLES Final Res ult documented in this encounter Visit Diagnoses Not on filedocumented in this encounter Additional Health Concerns Assessment Noted Time PHQ-9 Depression Total Score: 2 10/15/19 25 11:49 AM EDT documented as of this encounter Care Teams Oxidized Finish Plater Relationship Specialty Start Date End Date Zev Sanders MD [address] [place] [address] PCP - General Internal Medicine 11/16/19 Michelle Quiroz RN [address] [place] [address] Registered Nurse Family Medicine 10/04/24 12/06/24 Gonzalo Lima 10/04/24 Benedict Lima RN [address] [place] [address] Registered Nurse Family Medicine 12/06/24 documented as of this encounter
--- OUTSIDE RECORDS SUMMARY | 2024-12-09 17:41 | XMS_ITS | Encounter Summary ---
Author Organization [employer] Address [address] [facility] 7t [place] [address] Care Team Providers Care Nonprofit Manager Name Role Phone Zev Sanders MD Primary Care Provider [phone] Michelle Quiroz RN Unavailable [phone] Gonzalo Lima Unavailable Benedict Lima RN Unavailable [phone] Encounter Details Date Type Department Care Team (Late st Contact Info) Description 11/23/2024 Orders Only [facility] [address] [place] [address] Provider, MD Josh Social History Tobacco Use Types Packs/Day Years Used Date Smoking Tobacco: Former Cigarettes - 2019 Smokeless Tobacco: Never Alcohol Use [...] Upcoming Encounters Date Type Department Care Team ([facility] Contact Info) Description 01/17/2025 3:15 PM EDT Office Visit [facility] CHC MED & PEDS [address] [place] [address] Zev Sanders MD [address] [place] [address] documented as of this encounter Procedures Procedure Name Priority Date/Time Associated Diagnosis Comments ECG 12-LEAD Routine 11/22/2024 12:59 PM EDT ECG 12-LEAD Routine 11/22/2024 12:[address] HEAD WO CONTRAST Routine 11/22/2024 10:[address] CHEST ANGIO W AND WO IV CONTRAST Routine 11/22/2024 10:47 AM EDT documented in this encounter Results * ECG 12 lead (11/22/2024 12:59 PM EDT) us Historical Provider ECG ORDERABLES Final Res ult * ECG 12 lead (11/22/2024 12:58 PM EDT) us Historical Provider ECG ORDERABLES Final Res ult * CT Head w/o Contrast (11/22/2024 10:55 AM EDT) Anatomical Region Laterality Modality Head, Neck Computed Tomogra phy us Historical Provider MD TORRES CT PROCEDURES Final R esult * CT CHEST ANGIO W AND WO IV CONTRAST (11/22/2024 10:47 AM EDT) Anatomical Region Laterality Modality Computed Tomogra phy us Historical Provider MD TORRES CT PROCEDURES Final R esult documented in this encounter Visit Diagnoses Not on filedocumented in this encounter Additional Health Concerns Assessment Noted Time PHQ-9 Depression Total Score: 2 10/15/19 25 11:49 AM EDT documented as of this encounter Care Teams Nonprofit Manager Relationship Specialty Start Date End Date Zev Sanders MD [address] [place] [address] PCP - General Internal Medicine 11/16/19 Michelle Quiroz RN [address] [place] [address] Registered Nurse Family Medicine 10/04/24 12/06/24 Gonzalo Lima 10/04/24 Benedict Lima RN [address] [place] [address] Registered Nurse Family Medicine 12/06/24 documented as of this encounter
--- OUTSIDE RECORDS SUMMARY | 2024-12-09 17:41 | XMS_ITS | Encounter Summary ---
Author Organization [employer] Address [address] [facility] [facility] [address] [place] [address] Care Team Providers Care Churn Driller Name Role Phone Zev Sanders MD Primary Care Provider [phone] Michelle Quiroz RN Unavailable [phone] Gonzalo Lima Unavailable Benedict Lima RN Unavailable [phone] Encounter Details Date Type Department Care Team (Late st Contact Info) Description 11/24/2024 Orders Only [facility] MED & PEDS [address] [place] [address] Provider, MD Josh Social History Tobacco Use [...] Upcoming Encounters Date Type Department Care Team ([facility] Contact Info) Description 01/17/2025 3:15 PM EDT Office Visit [facility] MED & PEDS [address] [place] [address] Zev Sanders MD [address] [place] [address] documented as of this encounter Procedures Procedure Name Priority Date/Time Associated Diagnosis Comments TRANSTHORACIC ECHO (TTE) COMPLETE Routine 11/23/2024 3:04 PM EDT ECG 12-LEAD Routine 11/22/2024 10:18 AM EDT documented in this encounter Results * Transthoracic echo (TTE) complete (11/23/2024 3:04 PM EDT) us Historical Provider CV ECHO PROCEDURES Final Result * ECG 12 lead (11/22/2024 10:18 AM EDT) us Historical Provider ECG ORDERABLES Final Res ult documented in this encounter Visit Diagnoses Not on filedocumented in this encounter Additional Health Concerns Assessment Noted Time PHQ-9 Depression Total Score: 2 10/15/19 11:49 AM EDT documented as of this encounter Care Teams Churn Driller Relationship Specialty Start Date End Date Beauzile, Thevenin, MD [address] [place], [place] [phone] PCP - General Internal Medicine 11/16/19 Michelle Quiroz, BIANCA [address] [place], [place] [phone] Registered Nurse Family Medicine 10/04/24 12/06/24 Gonzalo Lima 10/04/24 Benedict Lima RN [address] [place], [place] [phone] Registered Nurse Family Medicine 12/06/24 documented as of this encounter
--- OUTSIDE RECORDS SUMMARY | 2024-12-09 17:41 | XMS_ITS | Clinical Summary ---
Author Organization [employer] Address [address] [facility] 7[address] [place] [address] Care Team Providers Care French Professor Name Role Phone Zev Sanders MD Primary Care Provider [phone] Gonzalo Lima Unavailable Benedict Lima RN Unavailable Allergies Active Allergy Reactions Criticality Noted Date Comments Penicillins Rash High 05/13/2019 RASH ON MOUTH WHEN A CHILD Shellfish Allergy Rash Low 04/08/2024 Medications tiotropium (Spiriva Respimat) 2.5 MCG/ACT inhalerIndicat ions:COPD (chronic obstructive pulmonary disease) case management patient ([facility]) INHALE TWO PUFF BY MOUTH [...] 72 mL 11 05/10/19 25 026 Active QUEtiapine (SEROquel) 100 MG tablet Take [...] constipation 60 capsule 3 10/22/19 25 Active lisinopril 10 MG tablet TAKE ONE TABLET EVERY MORNING 90 tablet 1 12/02/19 25 Active esomeprazole (NexIUM) [address] capsule TAKE ONE CAPSULE EVERY MORNING 90 capsule 1 12/02/19 25 Active pregabalin (Lyrica) 150 MG capsuleIndicat ions:Chronic low back pain, unspecified back pain laterality, unspecified whether sciatica present TAKE ONE CAPSULE TWICE DAILY IN THE MORNING AND AT BEDTIME 60 capsule 12/04/19 25 Active SUMAtriptan (Imitrex) 25 MG tabletIndicati ons:Other migraine without status migrainosus, not intractable Take 1 tablet (25 mg) by mouth 1 (one) time if needed for migraine for up to 1 dose. May repeat dose once in 2 hours if no relief. Do not exceed 2 doses in 24 hours. 9 tablet 12/09/19 25 Active lisinopril 10 MG tablet TAKE ONE TABLET EVERY MORNING 90 tablet 1 05/25/19 25 025 Discontinued esomeprazole (NexIUM) [address] capsule TAKE ONE CAPSULE EVERY MORNING 90 capsule 1 05/25/19 25 025 Discontinued pregabalin (Lyrica) 150 MG capsuleIndicat ions:Chronic low back pain, unspecified back pain laterality, unspecified whether sciatica present TAKE ONE CAPSULE TWICE DAILY IN THE MORNING AND AT BEDTIME 60 capsule 11/03/19 25 025 Discontinued Active Problems Problem Noted Date Diagnosed Date Olecranon bursitis, right elbow 03/29/2022 Asthma-chronic obstructive p ulmonary disease overlap syndrome 12/19/2017 Chronic back pain 12/19/2017 Essential hypertension 12/19/2017 Menopausal symptom 12/19/2017 Migraine 12/19/2017 Mood disorder 12/19/2017 Seasonal allergies 12/19/2017 Tobacco dependence syndrome 12/19/2017 Encounters Date Type Department Care Team Description 12/07/2024 3:45 PM EDT Office Visit [facility] [address] [place] [address] Zev Sanders MD Lower limb pain, anterior, right (Primary Dx); Essential hypertension; Asthma-chronic obstructive pulmonary disease overlap syndrome (CMS/HCC); Other migraine without status migrainosus, not intractable 12/07/2024 Travel 12/06/2024 Patient Outreach [facility] [address] [place] [phone] Zev Sanders MD Care Management (C3CM- f/u call) 12/06/2024 Telephone [facility] [address] [place] [address] Zev Sanders MD Chart Prep 12/02/2024 Refill [facility] [address] [place] [address] Zev Sanders MD Chronic low back pain, unspecified back pain laterality, unspecified whether sciatica present 11/30/2024 Telephone [facility] [address] [place] [address] Zev Sanders MD ER Follow-up 11/30/2024 Refill [facility] [address] [place] [address] Zev Sanders MD 11/26/2024 Patient Outreach [facility] [address] [place] [phone] Zev Sanders MD 11/26/2024 Patient Outreach [facility] [address] [place] [phone] Zev Sanders MD Transition Of Care (Tcm) (HDF unscheduled LVM ) 11/25/2024 Orders Only [facility] [address] [place] [phone] Josh Leonard MD 11/24/2024 Orders Only [facility] [address] [place] [address] Josh Leonard MD 11/23/2024 Telephone [facility] [address] [place] [phone] Zev Sanders MD No Show 11/23/2024 Patient Outreach [facility] [address] [place] [phone] Zev Sanders MD 11/23/2024 Orders Only [facility] [address] [place] [address] Josh Leonard MD 11/22/2024 Patient Outreach [address] [address] Zev Sanders MD 11/22/2024 Patient Outreach [address] [address] Zev Sanders MD Care Coordination (C3/W MICHAEL Dejesus f/u call) 11/22/2024 Patient Outreach [facility] [address] [place] [phone] Zev Sanders MD Care Coordination (C3CM f/u call) 11/11/2024 1:15 PM EDT Telemedicine [facility] [address] [place] [phone] Martha Zimmer, BIANCA Chest pain, unspecified type [R07.9] 11/11/2024 Travel 11/11/2024 Patient Outreach [facility] [address] [place] [phone] Zev Sanders MD Care Management (C3CM- f/u call lvm) 11/04/2024 Orders Only [facility] External Provider, [facility] 11/01/2024 Telephone [facility] [address] [place] [address] Zev Sanders MD No Show 11/01/2024 Refill [facility] [address] [place] [address] Darlene Gant MD Chronic low back pain, unspecified back pain laterality, unspecified whether sciatica present 10/28/2024 Refill [facility] [address] [place] [address] Darlene Gant MD Chronic low back pain, unspecified back pain laterality, unspecified whether sciatica present 10/28/2024 Patient Outreach [address] [address] Zev Sanders MD Care Management (C3CM- f/u call) 10/22/2024 11:00 AM EDT Telemedicine [facility] [address] [place] [address] Humaira Lopez RN Fall, subsequent encounter [W19.XXXD] 10/21/2024 1:00 PM EDT Office Visit [facility] [address] [place] [address] Wendy Andre MD Constipation, unspecified constipation type (Primary Dx); Palpitations 10/21/2024 Travel 10/20/2024 Telephone [facility] [address] [place] [address] Zev Sanders MD Nurse Triage 10/15/2024 Telephone [facility] [address] [place] [address] Zev Sanders MD 10/14/2024 Plan of Care Documentation [facility] [address] [place] [phone] 10/14/2024 Patient Outreach [address] [address] Zev Sanders MD Care Coordination ([facility]/DESEAN Lima, IDOH assessment, Enrolled CM Program ) 10/14/2024 Patient Outreach [facility] [address] [place] [address] Zev Sanders MD Care Coordination ([facility] initial assessment) 10/13/2024 Patient Outreach [address] [address] Zev Sanders MD Care Coordination ([facility]/DESEAN Lima, Appt reminder ) 10/11/2024 Patient Outreach [facility] [address] [place] [address] Zev Sanders MD 10/06/2024 Telephone [facility] [address] [place] [address] Zev Sanders MD Med Refill 10/06/2024 Refill [facility] [address] [place] [phone] Zev Sanders MD Chronic low back pain, unspecified back pain laterality, unspecified whether sciatica present 10/04/2024 Telephone [facility] [address] [place] [address] Zev Sanders MD ER Follow-up 10/04/2024 Travel 10/04/2024 Patient Outreach [address] [address] Zev Sanders MD Care Coordination ([facility]DESEAN Lima, initial oureach_assessment scheduled) 10/04/2024 Patient Outreach [address] [address] Zev Sanders MD Care Coordination ([facility]DESE[facility] Lima, Chart review) 10/04/[address] [address] Zev Sanders MD Nurse Triage 10/04/2024 Patient Outreach [facility] [address] [place] [address] Zev Sanders MD Care Coordination ([facility] chart review) 10/04/2024 Patient Outreach [address] [address] Zev Sanders MD 09/30/2024 Patient Outreach [address] [address] Zev Sanders MD Transition Of Care (Tcm) (HDF unscheduled LVM ) 09/28/2024 Patient Outreach [facility] [address] [place] [address] Zev Sanders MD Transition Of Care (Tcm) (F unscheduled LVM ) 09/25/2024 Orders Only GENERIC EXTERNAL DATA DEPARTMENT Provider, Generic External Data from Last 3 Months Immunizations Immunization Administration [...] Pulse 80 12/07/2024 4:06 PM EDT Temperature 36.1 C (97 F) 10/21/2024 1:11 PM EDT Respiratory Rate 20 12/07/2024 4:06 PM EDT Oxygen Saturation 96% 12/07/2024 4:06 PM EDT Inhaled Oxygen Concentration - - Weight 55.3 kg (122 lb) 12/07/2024 4:06 PM EDT Height 160.7 cm (5' 3.25 ) 12/07/2024 4:06 PM ED T Body Mass Index 21.44 12/07/2024 4:06 PM EDT Plan of Treatment Upcoming Encounters Date Type Department Care Team (Late st Contact Info) Description 01/17/2025 3:15 PM EDT Office Visit [facility] [address] [place] [address] Zev Sanders MD [address] [place] [address] Health Maintenance Due Date Last Done Comments CT Colonography 1970 Colonoscopy 1970 FIT 1970 HIV Screening 1970 Sigmoidoscopy 1970 Hepatitis A Vaccines (1 of 2 - Risk 2-dose series) 1989 Hepatitis B Vaccines (1 of 3 - 19+ 3-dose series) 1989 Mammogram 10/18/2023 10/17/2021, 12/04/2017 FOBT 03/10/2024 03/10/2023 Zoster Vaccines (2 of 2) 06/24/2024 04/29/2024 COVID-19 Vaccine ( season) 2024 Influenza Vaccine (#1) 2024 , 01/23/2023, 12/19/2017, Additional history exists Disability Screening 05/01/2025 05/01/2024 Alcohol/Substance Use Screening 10/14/2025 10/14/2024 Depression Screening 10/14/2025 10/14/2024, 10/15/19 SDOH Screening 10/14/2025 10/14/2024 Tobacco Screening 12/08/2025 12/08/2024 Colorectal Cancer Screening 03/10/2026 FIT DNA/Cologuard 03/10/2026 [...] 1 VIEW Routine 11/24/2024 1:33 PM EDT TRANSTHORACIC ECHO (TTE) COMPLETE Routine 11/23/2024 3:04 PM EDT ECG 12-LEAD Routine 11/23/2024 11:53 AM EDT ECG 12-LEAD Routine 11/23/2024 11:52 AM EDT ECG 12-LEAD Routine 11/22/2024 12:59 PM EDT ECG 12-LEAD Routine 11/22/2024 12:[address] HEAD WO CONTRAST Routine 11/22/2024 1 0:[address] CHEST ANGIO W AND WO IV CONTRAST Routine 11/22/2024 10:47 AM EDT ECG 12-LEAD Routine 11/22/2024 10:[address] CHEST W CONTRAST Routine 11/04/2024 2 [...] colon cancer ZZZ HISTORICAL HPV E6/E7 RFLX VANENSSA 16 18/45 Routine 01/15/2022 10:19 AM EDT HM PAP/HPV Routine 01/15/2022 ZZZ HISTORICAL HEPATITIS C AB W/REFL TO HCV RNA, QN, PCR Routine 11/12/2021 12:09 PM EDT LIPID PANEL, STANDARD Routine 11/12/2021 12:09 PM EDT MAMMOGRAM GENERIC Routine 10/17/2021 2:3 0 PM EDT from Last 3 Months or Most Recently Relevant to Health Maintenance Results * MRI BRAIN WO CONTRAST (11/24/2024 1:38 PM EDT) Anatomical Region Laterality Modality Magnetic Resonan ce us Historical Provider MD TORRES MRI PROCEDURES Final Result * XR Chest 1 View (11/24/2024 1:33 PM EDT) Only the most recent of2 resultswithin the time period is included. Anatomical Region Laterality Modality Chest Radiographic Joy ging us Historical Provider MD IMG XR PROCEDURES Final R esult * Transthoracic echo (TTE) complete (11/23/2024 3:04 PM EDT) Historical Provider CV ECHO PROCEDURES Final Result * ECG 12 lead (11/23/2024 11:53 AM EDT) Only the most recent of5 resultswithin the time period is included. Historical Provider ECG ORDERABLES Final Res ult * CT Head w/o Contrast (11/22/2024 10:55 AM EDT) Anatomical Region Laterality Modality Head, Neck Computed Tomogra phy [facility] Provider IMG CT PROCEDURES Final R esult * CT CHEST ANGIO W AND WO IV CONTRAST (11/22/2024 10:47 AM EDT) Anatomical Region Laterality Modality Computed Tomogra phy [facility] Provider IMG CT PROCEDURES Final R esult * CT Chest w/ Contrast (11/04/2024 2:52 PM EDT) Anatomical Region Laterality Modality Body, Chest Computed Tomogra phy 11/04/2024 2:52 PM EDT Narrative 11/04/2024 4:05 PM EDT [place] [address] CT Scan Report Signed Patient: Deysi Pfeiffer MR#: [id number] : 1970 Acct:[id number] Age/Sex: 54 / F ADM Date: 11/04/24 Loc: HO.ED Attending Dr: Ordering Physician: Gloria Hassan PA-C Date of Service: 11/04/24 Procedure(s): CT chest w IV con Accession Number(s): [id number] cc: Zev Sanders MD; Gloria Hassan PA-C Report Number: [id number]: Total DLP = 155.70 mGy-cm EXAMINATION: CT [...] reconstruction technique DLP: 147.89 mGy centimeter. 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 Pulmonary reticular pattern. Patchy opacities, lower [...] 11/04/24 1602 DD/ 1452 TD/TT: 11/04/24 1546 Project Manager Senior: Procedure Note Donotuseinterpreter, Image - 11/04/[address] [place] [address] [address] Scan Report Signed Patient: Deysi Pfeiffer DMR#: [id number] : 1970Acct:[id number] Age/Sex: 54 / FADM Date: 11/04/24 Loc: HO.ED Attending Dr: Ordering Physician: Gloria Hassan PA-C Date of Service: 11/04/24 Procedure(s): CT chest w IV con Accession Number(s): [id number] cc: Zev Sanders MD; Gloria Hassan PA-C Report Number: [id number]: Total DLP = 155.70 mGy-cm EXAMINATION: CT [...] reconstruction technique DLP: 147.89 mGy centimeter. 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 Pulmonary reticular pattern. Patchy opacities, lower [...] Francis Connelly MD 11/04/2024 04:02 PM EDT Dictated By: Francis Brannon MD Signed By: <Electronically signed by Francis Jaeger MDin OV> 11/04/24 1602 DD/ 1452 TD/TT: 11/04/24 1546 Project Manager Senior: [facility] External Provider IMG CT PROCEDURES Final Result * CT Head for ICH (11/04/2024 1:52 PM EDT) Anatomical Region Laterality Modality Head, Neck Computed Tomogra phy 11/04/2024 1:52 PM EDT Narrative 11/04/2024 4:05 PM EDT [address] [address] [address] Scan Report Signed Patient: Deysi Pfeiffer MR#: [id number] : 1970 Acct:[id number] Age/Sex: 54 / F ADM Date: 11/04/24 Loc: HO.ED Attending Dr: Ordering Physician: Gloria Hassan PA-C Date of Service: 11/04/24 Procedure(s): CT Head for ICH Accession Number(s): [id number] cc: Zev Sanders MD; Gloria Hassan PA-C Report Number: [id number]: Total DLP = 629.57 mGy-cm EXAMINATION: CT [...] 11/04/24 1602 DD/ 1352 TD/TT: 11/04/24 1546 Project Manager Senior: Procedure Note Donotuseinterpreter, Image - 11/04/[address] [address] [address] Scan Report Signed Patient: Deysi Pfeiffer DMR#: [id number] : 1970Acct:[id number] Age/Sex: 54 / FADM Date: 11/04/24 Loc: HO.ED Attending Dr: Ordering Physician: Gloria Hassan PA-C Date of Service: 11/04/24 Procedure(s): CT Head for ICH Accession Number(s): [id number] cc: Zev Sanders MD; Gloria Hassan PA-C Report Number: [id number]: Total DLP = 629.57 mGy-cm EXAMINATION: CT [...] 11/04/24 1602 DD/ 1352 TD/TT: 11/04/24 1546 Project Manager Senior: [facility] External Provider IMG CT PROCEDURES Final Result * XR Chest 2 Views (10/21/2024 4:10 PM EDT) Anatomical Region Laterality Modality Chest Radiographic Joy ging 10/21/2024 4:10 PM EDT Narrative 10/21/2024 4:54 PM EDT [address] [address] XRay Report Signed Patient: Deysi Pfeiffer MR#: [id number] : 1970 Acct:[id number] Age/Sex: 54 / F ADM Date: 10/21/24 Loc: HO.ED Attending Dr: Ordering Physician: Kimberly Tello Date of Service: 10/21/24 Procedure(s): XR chest 2V Accession Number(s): [id number] cc: Zev Sanders MD; Kimberly Tello EXAMINATION: [...] 10/21/24 1651 DD/ 1610 TD/TT: 10/21/24 1625 Project Manager Senior: Procedure Note Donotuseinterpreter, Image - 10/21/2024 [place] [address] XRay Report Signed Patient: Deysi Pfeiffer [facility]#: [id number] : 1970Acct:[id number] Age/Sex: 54 / FADM Date: 10/21/24 Loc: .ED Attending Dr: Ordering Physician: Kimberly Tello Date of Service: 10/21/24 Procedure(s): XR chest 2V Accession Number(s): [id number] cc: Zev Sanders MD; Kimberly Tello EXAMINATION: [...] 10/21/24 1651 DD/ 1610 TD/TT: 10/21/24 1625 Project Manager Senior: [facility] External Provider IMG XR PROCEDURES Edited Result - Final * XR Shoulder 2+ Views Right (10/21/2024 3:33 PM EDT) Anatomical Region Laterality Modality Upper Extremities, Shoulder Right Radi ographic Imaging 10/21/2024 3:33 PM EDT Narrative 10/21/2024 4:55 PM EDT [place] [address] XRay Report Signed Patient: Deysi Pfeiffer MR#: [id number] : 1970 Acct:[id number] Age/Sex: 54 / F ADM Date: 10/21/24 Loc: HO.ED Attending Dr: Ordering Physician: Kimberly Tello Date of Service: 10/21/24 Procedure(s): XR shoulder RT min 2V Accession Number(s): [id number] cc: Zev Sanders MD; Kimberly Tello EXAMINATION: [...] 10/21/24 1652 DD/ 1533 TD/TT: 10/21/24 1625 Project Manager Senior: Procedure Note Donotuseinterpreter, Image - 10/21/[address] [address] XRay Report Signed Patient: Deysi Pfeiffer DMR#: [id number] : 1970Acct:[id number] Age/Sex: 54 / FADM Date: 10/21/24 Loc: .ED Attending Dr: Ordering Physician: Kimberly Tello Date of Service: 10/21/24 Procedure(s): XR shoulder RT min 2V Accession Number(s): [id number] cc: Zev Sanders MD; Kimberly Tello EXAMINATION: [...] 10/21/24 1652 DD/ 1533 TD/TT: 10/21/24 1625 Project Manager Senior: [facility] External Provider IMG XR PROCEDURES Edited Result - Final * CTA Chest PE Protocal (09/25/2024 7:40 PM EDT) Anatomical Region Laterality Modality Body, Chest Computed Tomogra phy 09/25/2024 7:40 PM EDT Narrative 09/25/2024 7:42 PM EDT [address] [address] [address] Scan Report Signed Patient: Deysi Pfeiffer MR#: [id number] : 1970 Acct:[id number] Age/Sex: 54 / F ADM Date: 09/25/24 Loc: .ED Attending Dr: Ordering Physician: Madeleine Aparicio MD Date of Service: 09/25/24 Procedure(s): CT angio chest PE protocol Accession Number(s): [id number] cc: Zev Sanders MD; Madeleine Aparicio MD Report Number: [id number]: Total DLP = 579.00 mGy-cm CLINICAL HISTORY: [...] in OV> 09/25/241941 DD/ 39 TD/TT: 09/25/241939 Project Manager Senior: Procedure Note Donotuseinterpreter, Image - 09/25/[address] [place] [address] [address] Scan Report Signed Patient: Deysi Pfeiffer [facility]#: [id number] : 1970Acct:[id number] Age/Sex: 54 / FADM Date: 09/25/24 Loc: .ED Attending Dr: Ordering Physician: Madeleine Aparicio MD Date of Service: 09/25/24 Procedure(s): CT angio chest PE protocol Accession Number(s): [id number] cc: Zev Sanders MD; Madeleine Aparicio MD Report Number: [id number]: Total DLP = 579.00 mGy-cm CLINICAL HISTORY: [...] in OV> 09/25/241941 DD/ 39 TD/TT: 09/25/241939 Project Manager Senior: [facility] External Provider IMG CT PROCEDURES Edited Result - Final * CT Abdomen Pelvis w/ Contrast (09/25/2024 7:23 PM EDT) Anatomical Region Laterality Modality Body, Pelvis, Abdomen Computed T omography 09/25/2024 7:23 PM EDT Narrative 09/25/2024 7:25 PM EDT [address] [address] [address] Scan Report Signed Patient: Deysi Pfeiffer MR#: [id number] : 1970 Acct:[id number] Age/Sex: 54 / F ADM Date: 09/25/24 Loc: HO.ED Attending Dr: Ordering Physician: Madeleine Aparicio MD Date of Service: 09/25/24 Procedure(s): CT abdomen pelvis w IV con Accession Number(s): [id number] cc: Zev Sanders MD; Madeleine Aparicio MD Report Number: [id number]: Total DLP = 579.00 mGy-cm CLINICAL HISTORY: [...] in OV> 09/25/241923 DD/ 22 TD/TT: 09/25/241922 Project Manager Senior: Procedure Note Donotuseinterpreter, Image - 09/25/[address] [address] [address] Scan Report Signed Patient: Deysi Pfeiffer DMR#: [id number] : 1970Acct:[id number] Age/Sex: 54 / FADM Date: 09/25/24 Loc: HO.ED Attending Dr: Ordering Physician: Madeleine Aparicio MD Date of Service: 09/25/24 Procedure(s): CT abdomen pelvis w IV con Accession Number(s): [id number] cc: Zev Sanders MD; Madeleine Aparicio MD Report Number: [id number]: Total DLP = 579.00 mGy-cm CLINICAL HISTORY: [...] in OV> 09/25/241923 DD/ 22 TD/TT: 09/25/241922 Project Manager Senior: [facility] External Provider IMG CT PROCEDURES Edited Result - Final * (ABNORMAL) VENOUS BLOOD GAS (09/25/2024 4:57 PM EDT) VBG pH 7.49(H) 7.32 - 7.43 [facility] Comment:METER #: [id number] additional_comment: Cb patelha VBG PCO2 42 mmHg [facility] Comment:METER #: [id number] additional_comment: Joshua weber VBG PO2 72 mmHg [facility] Comment:METER #: [id number] additional_comment: Joshua weber VBG Base Excess 9.1 mmol/L [facility] Comment:METER #: [id number] additional_comment: Joshua GILLISG HCO3 33(H) 22 - 26 mmol/L [facility] Comment:METER #: [id number] additional_comment: Joshua weber O2 Sat, Lefty 96.0 % [facility] Comment:METER #: [id number] additional_comment: Joshua weber 09/25/2024 4:57 PM EDT 09/25/2024 5:04 PM EDT us Generic External Data Provider LAB BLOOD ORDERAB LES Final Result Performing Organization Address [facility]/ZIP Co de Phone Number [facility] [address] [place] [phone] * HOLD LT BLUE - POSSIBLE COAG (09/25/2024 4:47 PM EDT) Hold Lt Blue - Possible Coag SEE NOTE [facility] Comment:Specimen will be hel d untested for 4 hours. Call Hematologyif testing is desired. 09/25/2024 4:47 PM EDT 09/25/2024 5:06 PM EDT us Generic External Data Provider LAB BLOOD ORDERAB LES Final Result Performing Organization Address [facility]/ZIP Co de Phone Number [facility] [address] [place] [phone] * Lactic Acid (09/25/2024 4:47 PM EDT) Lactic Acid 0.9 0.5 - 2.0 mmol/L [facility] 09/25/2024 4:47 PM EDT 09/25/2024 4:55 PM EDT Generic External Data Provider LAB BLOOD ORDERAB LES Final Result Performing Organization Address [facility] Co de Phone Number [facility] [address] [place] [phone] * SARS-CoV-2 RNA, Influenza A/B, and RSV RNA, Ql NAAT (09/25/2024 4:46 PM EDT) Influenza A PCR NEGATIVE Negative [facility] Influenza B PCR NEGATIVE Negative [facility] Resp Syncy Virus RNA Qual PCR NEGATIVE Negative [facility] SARS COV2 PCR NEGATIVE Negative [facility] Comment:All test results mus t [...] use by authorized laboratories.Testing performed on the [employer] GeneXpert utilizingreal-time RT-PCR.All SARS CoV2 and positive influenza A/B results arereported to [facility]. 09/25/2024 4:46 PM EDT 09/25/2024 4:55 PM EDT Generic External Data Provider LAB MICROBIOLOGY - GENERAL ORDERABLES Final Result Performing Organization Address [facility] Co de Phone Number [facility] [address] [place] [phone] * (ABNORMAL) Urinalysis, Complete, with Reflex to Culture (09/25/2024 3:46 PM EDT) Color Urine Yellow [facility] Appearance Urine Clear [facility] PH 5.5 5.0 - 9.0 [facility] Glucose Urine UA Negative Negative mg/dL [facility] Urine Blood Negative Negative [facility] Specific [place] - Urine 1.010 1.005 - 1.025 [facility] Urine Protein Negative Neg-Trace mg/dL [facility] Urine Ketones Negative Negative mg/dL [facility] Nitrite Urine Negative Negative [facility] Leukocyte Esterase Urine Trace(A) Negative [facility] RBC Urine 0-2 0 - 2 /HPF [facility] Urine WBC 0-5 0 - 5 /HPF [facility] Urine Squamous Epithelial Cell 0-2 0 - 2 /HPF [facility] Urine Bacteria None Seen None Seen [facility] HOSPITAL LABS Hyaline Casts, Urine 0-2 0 - 2 /LPF [facility] 09/25/2024 3:46 PM EDT 09/25/2024 3:49 PM EDT Narrative [facility] - 09/25/2024 4:22 PM EDT Urine, Clean Catch us Generic External Data Provider LAB URINE ORDERAB LES Final Result Performing Organization Address [facility] Co de Phone Number [facility] [address] [place] [address] [phone] * HCG, Qualitative, Urine (09/25/2024 3:46 PM EDT) Urine NEGATIVE NEGATIVE [facility] Comment:This test was develo ped to detect early . Falsenegative results may occur after the 5th - 7th week ofpregnancy when using this test method. If clinicallyindicated, consider a serum hCG. 09/25/2024 3:46 PM EDT 09/25/2024 3:49 PM EDT us Generic External Data Provider LAB URINE ORDERAB LES Final Result Performing Organization Address [facility]/ZIP Co de Phone Number [facility] [address] [place] [address] [phone] * Cologuard?? colon cancer screening (03/10/2023 2:14 PM EST) Cologuard Result Negative Negative 03/21/20 1:56 AM EST [facility] (IA #:[id number]) Comment: NEGATIVE TEST RESULT. A negative Cologuard [...] Luis Robles al, N Engl J Med 2014;370(14):5653-7771) The normal value (reference range) for this assay is negative. COLOGUARD RE-SCREENING RECOMMENDATION: Periodic colorectal cancer screening is an important part of preventive healthcare for asymptomatic individuals at average risk for colorectal cancer. Following a negative Cologuard result, the [place] [employer] and U.S. Multi-Society Task Force screening guidelines recommend a Cologuard re-screening interval of 3 years. References: [place] [employer] Guideline for Colorectal Cancer Screening: https://www.cancer.org/cancer/agrov-clbqmt-mwupfv/kypqtmlft-rdpvkcvzg-bilwogk/ac s-rec ommendations.html.; Edgar DK, Antonio CR, Salma CorderoK, Colorectal Cancer Screening: Recommendations for Physicians and Patients from the U.S. Multi-Society Task Force on Colorectal Cancer Screening , Am J Gastroenterology 2017; 112:4956-3731. TEST DESCRIPTION: Composite algorithmic analysis of stool [...] Luis Robles al, N Engl J Med 2014;370(14):9926-9262.) Cologuard may produce a false negative or false positive result (no colorectal cancer or precancerous polyp present at colonoscopy follow up). A negative Cologuard test result does not guarantee the absence of CRC or advanced adenoma (pre-cancer). The current Cologuard screening interval is every 3 years. ([place] [employer] Society and U.S. Multi-Society Task Force). Cologuard performance data in a 10,000 patient pivotal study using colonoscopy as the reference method can be accessed at the following location: www.[employer] PTY.Cytosorbents/results. Additional description of the Cologuard test process, warnings and precautions can be found at www.[employer] The[employer]rd.Cytosorbents. Stool specimen (specimen) 03/10/2023 2:14 PM EST 03/12/2023 8:29 PM EST us Zev Sanders MD LAB MOLECULAR DIAGNOSTICS O RDERABLES Final Result [facility] (CLIA #:[id number]) [address] [place] [address], * HPV E6/E7 RFLX VANNESSA 16 18/45 (01/15/2022 10:19 AM EDT) HPV mRNA E6/E7 rflx Not Detected Not Detected [facility] Comment: Methodology: Pyrotechnic Assembler-Mediated Amplification This assay detects E6/E7 viral messenger RNA (mRNA) from 14 high-risk HPV types (16,18,31,33,35,39,45,51,52,56,58,59,66,68). Cervical sources are required for HPV testing. If a vaginal source from a patient who has had a total hysterectomy with removal of cervix was submitted, please contact the testing laboratory for alternative testing options. For additional information, please refer to http://MXP4.[employer]/faq/OSK314h6 (This link if provided for information/ educational purposes only.) THIS TEST WAS PERFORMED AT: [facility] [address] [place] [address] [address],[place] [address] ESPERANZA CRUZ MD 01/15/2022 10:1 9 AM EDT Mario Alberto Morgan MD HISTORICAL/NON ORDERABLE LABS Fi nal Result Performing Organization Address [facility] Co de Phone Number [facility] * Hm Pap Smear (01/15/2022) Historical Provider [facility] Final Result * HEPATITIS C AB W/REFL [...] a test for HCV RNA (test code 29627) is suggested. For additional information please refer to http://MXP4.[employer]/faq/ZYS78s3 (This link is being provided for informational/ educational purposes only.) 11/12/2021 12:0 9 PM EDT Zev Sanders MD HISTORICAL/NON ORDERABLE LA BS Final Result Performing Organization Address [facility] Co de Phone Number [facility] [address] [place] [address], [place] * (ABNORMAL) LIPID PANEL, STANDARD (11/12/2021 12:09 [...] LDL-C. Hilario SS et al. JUANA. 2013;310(19): 0520-2525 (http://education.AutoESL/faq/GIK273) Non-HDL Cholesterol 129 <130 mg/dL (calc) [facility] Comment: For patients with diabetes plus 1 major ASCVD risk factor, treating to a non-HDL-C goal of <100 mg/dL (LDL-C of <70 mg/dL) is considered a therapeutic option. Triglycerides 120 <150 mg/dL [facility] 11/12/2021 12:0 9 PM EDT us Zev Sanders MD LAB BLOOD ORDERABLES Final Result [facility] [address] * Mammography Report 1 (10/17/2021 2:30 [...] Most Recently Relevant to Health Maintenance [place] [address] [place] [address] C3 Care Teams French Professor Relationship Specialty Start Date End Date Zev Sanders MD [address] [place] [address] PCP - General Internal Medicine 11/16/19 Gonzalo Lima 10/04/24 Benedict Lima, BIANCA [address] [place] [address] Registered Nurse Family Medicine 12/06/24
--- OUTSIDE RECORDS SUMMARY | 2024-12-09 17:41 | XMS_ITS | Encounter Summary ---
Author Organization [employer] Address [address] [facility] 7t [place] [address] Care Team Providers Care Boating Safety Officer Name Role Phone Zev Sanders MD Primary Care Provider [phone] Michelle Quiroz RN Unavailable [phone] Gonzalo Lima Unavailable Benedict Lima RN Unavailable [phone] Encounter Details Date Type Department Care Team (Late st Contact Info) Description 12/24/2022 Orders Only [facility] MEDICINE [address] [place], [place] [phone] Provider, MD Josh Social History Tobacco Use [...] Department Care Team (Late Contact Info) Description 01/17/2025 3:15 PM EDT Office Visit [facility] CHC MED & PEDS [address] [place], [place] [phone] Zev Sanders MD [address] [place], [place] [phone] documented as of this encounter Procedures Procedure Name Priority Date/Time Associated Diagnosis Comments HM PAP/HPV Routine 01/15/2022 documented in this encounter Results * Hm Pap Smear (01/15/2022) Historical Provider HEALTH MAINTENANCE Final Result documented in this encounter Visit Diagnoses Not on filedocumented in this encounter Care Teams Boating Safety Officer Relationship Specialty Start Date End Date Zev Sanders MD [address] [place] [address] PCP - General Internal Medicine 11/16/19 Michelle Quiroz RN [address] [place] [address] Registered Nurse Family Medicine 10/04/24 12/06/24 Gonzalo Lima 10/04/24 Benedict Lima RN [address] [place] [address] Registered Nurse Family Medicine 12/06/24 documented as of this encounter
--- OUTSIDE RECORDS SUMMARY | 2024-12-09 17:41 | XMS_ITS | Encounter Summary ---
Author Organization [employer] Address [address] [facility] 7t [place] [address] Care Team Providers Care Assembly Machine Feeder Name Role Phone Zev Sanders MD Primary Care Provider [phone] Michelle Quiroz RN Unavailable [phone] Gonzalo Lima Unavailable Benedict Lima RN Unavailable [phone] Reason for Visit * Reason Comments Care Management C3CM- f/u call Encounter Details Date Type Department Care Team (Late st Contact Info) Description 12/06/2024 Patient Outreach [facility] MEDICINE [address] [place] [address] Zev Sanders MD [address] [place] [phone] Care Management (C3CM- f/u call) Social History Tobacco Use Types Packs/Day Years [...] the past 12 months, has t he IP Ghoster, gas, oil or water [employer] threatened to shut off services in your [...] as of this encounter Progress Notes * Benedict Lima RN - 12/06/2024 12:25 PM EDT DARIA Lima RN placed outbound call to patient. Patient's name, and address confirmed. Patient states she was recently discharged from [facility]-11/22/24-11/25/24. She states she was in bed x3 daysprior to her admission. Reports ambulance called as patient was weak and was not able to get up from bed. Per patient, found to have UTI and pneumonia. She states she had a negative experience duringher hospitalization as all of her regular meds were placed on hold while she was being treated. Perpatient, doing well since she was discharged. She does report experiencing asthma symptoms last night. She states she called Dr. Mathews's office today to request a f/u and is waiting for the office toreturn call to her. Patient states she is worried that she may have pneumonia again as she is also experiencing rib pain which she states is very mild now. She denies any CP, SOB, cough, fever, chills, nausea, vomiting, or other symptoms. She states the asthma symptoms only happen at nighttime. Per patient, has inhaler and nebulizer machine which she reports using with good effect. Patient is aware of her scheduled f/u with PCP tomorrow 12/07/24 at 3:45pm. She states she has transportation and denies any barriers to attending the visit. Per patient, receiving call from Dr. Mathews's office now. She agrees to f/u with PCP office as needed. Patient declines LTSS referral at this time. No further questions or concerns. CM reinforced direct contact information for any additional questions or concerns. Education provided on Walk[facility] Ur[facility] Care located in [facility] of [facility]. Patient provided with after-hours line for [facility], , which offer night time triage service and option to transfer to information technology data analyst provider if needed. Patient verbalizes understanding, and able to r epeat back to telegraphic typewriter operator chief. A follow up call will be placed within 10 days, patient agrees with plan. documented in this encounter Plan of Treatment Upcoming Encounters Date Type Department Care Team ([facility] st Contact Info) Description 01/17/2025 3:15 PM EDT Office Visit [facility] CHC MED & PEDS [address] [place], [place] [phone] Zev Sanders MD [address] [place] [address] documented as of this encounter Visit Diagnoses Not on filedocumented in this encounter Additional Health Concerns Assessment Noted Time PHQ-9 Depression Total Score: 2 10/15/19 11:49 AM EDT documented as of this encounter Care Teams Assembly Machine Feeder Relationship Specialty Start Date End Date Zev Sanders MD [address] [place] [address] PCP - General Internal Medicine 11/16/19 Michelle Quiroz RN [address] [place], [place] [phone] Registered Nurse Family Medicine 10/04/24 12/06/24 Gonzalo Lima 10/04/24 Benedict Lima RN [address] [place] [address] Registered Nurse Family Medicine 12/06/24 documented as of this encounter
--- OUTSIDE RECORDS SUMMARY | 2024-12-09 17:41 | XMS_ITS ---
Author Organization [employer] Address [address] [place] [address] 7 [place] [address] Care Team Providers Care Stretch Machine Operator Name Role Phone Zev Sanders MD Primary Care Provider [phone] Gonzalo Lima Unavailable Benedict Lima RN Unavailable [phone] Complex Status:Enrolled (Active) Start date:10/04/2024 Enrollment date:10/14/2024 Enrollment reason:ADT Feed Overview ADT-[facility] ED 10/01/24 shortness of breath Case Team Name Relationship Phone Benedict Lima RN(Responsible Staff) Registered Nurse [phone] Continued Care and Services Coordination
--- OUTSIDE RECORDS SUMMARY | 2024-12-09 17:41 | XMS_ITS ---
Author Organization [employer] Address [address] [place] [address], [place] [address] Care Team Providers Care Non Profit Director Name Role Phone Zev Sanders MD Primary Care Provider [phone] Gonzalo Lima Unavailable Benedict Lima RN Unavailable [phone] Complex Status:Enrolled (Active) Start date:10/04/2024 Enrollment date:10/14/2024 Enrollment reason:ADT Feed Overview ADT-[facility] ED 10/01/24 shortness of breath Case Team Name Relationship Phone Gonzalo Lima(Responsible Staff) [phone] Continued Care and Services Coordination
--- OUTSIDE RECORDS SUMMARY | 2024-12-09 17:42 | XMS_ITS | Encounter Summary ---
Author Organization [employer] Address [address] [facility] 7 [place] [address] Care Team Providers Care Wire Drawing Setter Name Role Phone Zev Sanders MD Primary Care Provider [phone] Michelle Quiroz RN Unavailable [phone] Gonzalo Lima Unavailable Benedict Lima RN Unavailable [phone] Reason for Visit * Reason Comments Med Refill Encounter Details Date Type Department Care Team (Late Contact Info) Description 11/05/2022 Refill [facility] MED & PEDS [address] [place], [place] [phone] Zev Sanders MD [address] [place] [address] Chronic low back pain, unspecified back pain [...] Description 01/17/2025 3:15 PM EDT Office Visit [facility] CHC MED & PEDS [address] [place] [address] Zev Sanders MD [address] [place] [address] documented as of this encounter Visit Diagnoses Diagnosis Chronic low back pain, unspecified back pain laterality, unspecified whether sciatica present documented in this encounter Care Teams Wire Drawing Setter Relationship Specialty Start Date End Date Zev Sanders MD [address] [place] [address] PCP - General Internal Medicine 11/16/19 Michelle Quiroz RN [address] [place] [address] Registered Nurse Family Medicine 10/04/24 12/06/24 Gonzalo Lima 10/04/24 Benedict Lima, BIANCA [address] [place] [address] Registered Nurse Family Medicine 12/06/24 documented as of this encounter
--- OUTSIDE RECORDS SUMMARY | 2024-12-09 17:42 | XMS_ITS | Encounter Summary ---
Author Organization [employer] Address [address] [facility] 7t [place] [address] Care Team Providers Care Body Technician Name Role Phone Zev Sanders MD Primary Care Provider [phone] Michelle Quiroz RN Unavailable [phone] Gonzalo Lima Unavailable Benedict Lima RN Unavailable [phone] Reason for Visit * Reason Onset Date Comments Appointment Request 11/01/2022 Encounter Details Date Type Department Care Team (Late st Contact Info) Description 11/01/2022 Telephone [facility] CHC MED & PEDS [address] [place], [place] [phone] Zev Snaders MD [address] [place], [place] [phone] Appointment Request Social History Tobacco Use Types [...] encounter Miscellaneous Notes * Telephone Encounter - Issacaddison Farfangio Myles - 11/01/2022 3:37 PM EDT Tc from pt requesting to r/s appt for PE on 10/24/2022. Please contact pt at [phone] documented in this encounter Plan of Treatment Upcoming Encounters Date Type Department Care Team ([facility] st Contact Info) Description 01/17/2025 3:15 PM EDT Office Visit [facility] MED & PEDS [address] [place] [address] Zev Sanders MD [address] [place] [address] documented as of this encounter Visit Diagnoses Not on filedocumented in this encounter Care Teams Body Technician Relationship Specialty Start Date End Date Zev Sanders MD [address] [place] [address] PCP - General Internal Medicine 11/16/19 Michelle Quiroz, BIANCA [address] [place] [address] Registered Nurse Family Medicine 10/04/24 12/06/24 Gonzalo Lima 10/04/24 Benedict Lima, RN [address] [place] [address] Registered Nurse Family Medicine 12/06/24 documented as of this encounter
--- OUTSIDE RECORDS SUMMARY | 2024-12-09 17:42 | XMS_ITS | Encounter Summary ---
Author Organization [employer] Address [address] [facility] 7t [place] [address] Care Team Providers Care Automotive Worker Name Role Phone Zev Sanders MD Primary Care Provider [phone] Michelle Quiroz RN Unavailable [phone] Gonzalo Lima Unavailable Benedict Lima RN Unavailable [phone] Encounter Details Date Type Department Care Team ([facility] Contact Info) Description 04/12/2022 Orders Only [facility] [address] [place] [address] Zev Sanders MD [address] [place] [address] [phone] Social History Tobacco Use Types Packs/Day Years [...] Upcoming Encounters Date Type Department Care Team ([facility] Contact Info) Description 01/17/2025 3:15 PM EDT Office Visit [facility] CHC MED & PEDS [address] [place] [address] Zev Sanders MD [address] [place] [address] documented as of this encounter Procedures Procedure [...] 2:13 PM EDT 10/21/2022 5:23 PM EDT Zev Sanders MD LAB BLOOD ORDERABLES Final Result [facility] [address] [place] [address] [phone] * (ABNORMAL) VENOUS BLOOD GAS (09/04/2022 1:17 PM EDT) VBG pH 7.37 7.32 - 7.43 [facility] Comment:METER #: [id number] additional_comment: Cb murpe VBG PCO2 57 mmHg [facility] Comment:METER #: [id number] additional_comment: Cb murpe VBG PO2 48 mmHg [facility] Comment:METER #: [id number] additional_comment: Cb murpe VBG Base Excess 6.2 mmol/L [facility] Comment:METER #: [id number] additional_comment: Cb murpe VBG HCO3 33(H) 22 - 26 mmol/L [facility] Comment:METER #: [id number] additional_comment: Cb murpe O2 Sat, Lefty 77.0 % [facility] Comment:METER #: [id number] additional_comment: Cb murpe 09/04/2022 1:17 PM EDT 09/04/2022 1:23 PM EDT [facility] External Provider LAB BLO OD ORDERABLES Final Result Performing Organization Address [facility] [place]/[facility] de Phone Number [facility] [address] [place] [phone] * D Dimer High Sensitivity (09/04/2022 [...] 1:10 PM EDT 09/04/2022 1:18 PM EDT [facility] External Provider LAB BLO OD ORDERABLES Final Result Performing Organization Address [facility] [place]/[facility] Co de Phone Number [facility] [address] [place] [phone] * B Type Natriuretic Peptide (BNP) [...] ORDERABLES Final Result [facility] [address] [place] [address] [phone] * (ABNORMAL) Comprehensive Metabolic Panel (09/04/2022 11:26 AM EDT) Pathologist [facility] Sodium 142 135 - 145 mmol/L [facility] [...] 1.210.Chronic Kidney Disease: Estimated GFR < 60 mL/min/1.85t9Ygoiii Kidney Disease: Estimated GFR < 15 mL/min/1.73m2 [...] 6 AM EDT 09/04/2022 11:33 AM EDT [facility] External Provider LAB BLO OD ORDERABLES Final Result [facility] [address] [place] [phone] * COVID-19 ID NOW (Roc2Loc) (09/04/2022 11:26 AM EDT) IDNOW SERIAL# [id number] [facility] COVID-19 TEST Negative Negative [facility] COVID-19 NOTE See Note [facility] Comment: Results are for the identification of SARS-CoV2 RNA. TheSARS-CoV2 RNA is generally detectable in respiratory samplesduring the acute phase of infection. Positive results areindicative of the presence of SARS-CoV-2 RNA; clinicalcorrelation with patient history and other diagnosticinformation is necessary to determine patient infectionstatus. Positive results do not rule out bacterial infectionor co- infection with other viruses.Testing facilities within the [facility] and itsterritories are required to [...] use by authorized laboratories.Testing performed on the Dexcom ID NOW utilizing NAAT. 09/04/2022 11:2 6 AM EDT 09/04/2022 11:33 AM EDT us [facility] Exter nal Provider LAB MOLECULAR DIAGNOSTICS ORDERABLES Final Result [facility] [address] [place] [phone] * (ABNORMAL) CBC auto differential (09/04/2022 [...] 11:33 AM EDT us [facility] External Provider LAB BLO OD ORDERABLES Final Result Performing Organization Address City/State/[facility] Co de Phone Number [facility] [address] [place] [address] [phone] documented in this encounter Visit Diagnoses Not on filedocumented in this encounter Care Teams Automotive Worker Relationship Specialty Start Date End Date Zev Sanders MD [address] [place] [address] PCP - General Internal Medicine 11/16/19 Michelle Quiroz RN [address] [place] [address] Registered Nurse Family Medicine 10/04/24 12/06/24 Gonzalo Lima 10/04/24 Benedict Lima RN [address] [place] [address] Registered Nurse Family Medicine 12/06/24 documented as of this encounter
--- OUTSIDE RECORDS SUMMARY | 2024-12-09 17:42 | XMS_ITS | Encounter Summary ---
Author Organization [employer] Address [address] [facility] 7t [place] [address] Care Team Providers Care Tobacco Stripping Machine Operator Name Role Phone Zev Sanders MD Primary Care Provider Michelle Quiroz RN Unavailable [phone] Gonzalo Lima Unavailable Benedict Lima RN Unavailable [phone] Encounter Details Date Type Department Care Team (Late st Contact Info) Description 10/22/2022 Orders Only [facility] MED & PEDS [address] [place] [address] Zev Sanders MD [address] [place], [place] [phone] Gastroenteritis (Primary Dx) Social History Tobacco Use [...] Description 01/17/2025 3:15 PM EDT Office Visit [facility] MED & PEDS [address] [place], [place] [phone] Zev Sanders MD [address] [place] [address] documented as of this encounter Visit Diagnoses Diagnosis Gastroenteritis- Primary Other and unspecified noninfectious gastroenteritis and colitis documented in this encounter Care Teams Tobacco Stripping Machine Operator Relationship Specialty Start Date End Date Zev Sanders MD [address] [place] [address] PCP - General Internal Medicine 11/16/19 Michelle Quiroz RN [address] [place] [address] Registered Nurse Family Medicine 10/04/24 12/06/24 Gonzalo Lima 10/04/24 Benedict Lima, BIANCA [address] [place] [address] Registered Nurse Family Medicine 12/06/24 documented as of this encounter
== END 2024-12-09 13:59 | disposition home or self-care (01) ==
LOC: HO.PMC 13:49
PROVIDERS: PCP Internal Medicine; Visit Provider Nurse Practitioner Family
DX: Z79.891 Long term (current) use of opiate analgesic (principal); M54.2 Cervicalgia; M51.369 Other intervertebral disc degeneration, lumbar region without mention of lumbar back pain or lower extremity pain; M47.816 Spondylosis without myelopathy or radiculopathy, lumbar region; G89.4 Chronic pain syndrome
CPT/HCPCS: 99214

== ENCOUNTER → 2024-12-09 13:49 | Outpatient (BNVA) | payer MEDICAID, SELFPAY | PROVIDERS: PCP Internal Medicine; Visit Provider Nurse Practitioner Family | DX: G89.4 Chronic pain syndrome (principal); M47.816 Spondylosis without myelopathy or radiculopathy, lumbar region; M51.360 Other intervertebral disc degeneration, lumbar region with discogenic back pain only; M54.2 Cervicalgia; Z79.891 Long term (current) use of opiate analgesic | CPT/HCPCS: 99212 ==

== ENCOUNTER 2024-12-13 16:06 | Outpatient (AMB) | payer MEDICAID, SELFPAY ==
[2024-12-13 16:09] VITALS: BP 170/80; PULSE 84; O2SAT 98; BMI 21.0
--- NOTE | 2024-12-13 16:09 | A.OFFVIS_ITS ---
Vital Signs 12/13/24 16:09 Height 5 ft 4 in Weight 122 lb 5.705 oz BMI 21.0 BP 170/80 H Blood Pressure Location Lt brachial Position Sitting Pulse 84 Pulse Source Pulse Oximeter Pulse Oximetry (%) 98 Oxygen Delivery Method Room Air Intake Visit Reasons: ER follow up [facility] Intake Note: pt is here for follow up of Alanna for copd was in for 4 days, and today she is back to baseline, some pain around the right breast Allergies Penicillins (PENICILLINS) Allergy (Severe, Verified 12/13/24 16:28) RASH seafood Allergy (Verified 12/13/24 16:28) Rash Medication List - Last Reconciled 12/13/24 by Erickson Mathews MD albuterol sulfate 90 mcg/actuation (Ventolin HFA) 2 puffs inhalation QID PRN budesonide-formoterol 160-4.5 mcg/actuation (Symbicort) 2 puffs inhalation BID cholecalciferol (vitamin D3) 50 mcg PO DAILY docusate sodium 100 mg PO BID PRN esomeprazole magnesium 40 mg PO DAILY@0630 ipratropium-albuterol 0.5 mg-3 mg(2.5 mg base)/3 mL 3 mL inhalation Q6H PRN lidocaine 5% 1 patch topical DAILY lisinopril 10 mg PO DAILY mirtazapine 45 mg PO BEDTIME montelukast 10 mg PO BEDTIME naloxone 4 mg/actuation (Narcan) 4 mg intranasal Q2M PRN oxycodone 5 mg PO TID PRN 30 days prednisone 5 mg PO DAILY Held on 09/27/24. Instructions: Resume on 10/14/24. prednisone 5 mg PO DAILY 30 days pregabalin 150 mg PO BID quetiapine (Seroquel) 100 mg PO BEDTIME tiotropium bromide 2.5 mcg/actuation (Spiriva Respimat) 2 puffs inhalation DAILY Do you need a note to return to daycare/school/sports/work: No HPI HPI ER follow up Alanna: Details: THIS 54 YEARS OLD FEMALE WITH ADVANCED CHRONIC OBSTRUCTIVE PULMONARY DISEASE AND CHRONIC RESPIRATORY FAILURE, IS HERE FOR PULMONARY FOLLOW-UP. A FEW WEEKS AGO SHE WAS ADMITTED TO [facility] WITH ACUTE EXACERBATION OF COPD, WHERE SHE WAS BROUGHT IN BY AMBULANCE. SHE SPENT ABOUT 4 DAYS AT [facility] THEN DISCHARGED HOME ON HER USUAL MEDICATIONS. SHE WAS TOLD HER THERE WAS SOME ABNORMALITY IN HER CT SCAN OF THE CHEST, . OR WHICH SHE SHOULD BE FOLLOWED SINCE HER DISCHARGE HOME SHE IS BACK ON HER USUAL LIST OF MEDICATIONS AND IS DOING FAIRLY WELL. SHE USES OXYGEN 24 HOURS A DAY 2 L/MINUTE AT HOME AND 3 L/MINUTE WHEN OUTDOORS. SHE REMAINS WEAK AND TIRED, BUT SHE CAN WALK AROUND WITH THE WALKER. [facility]LY [facility] Medical History Current non-smoker but past smoking history unknown Respiratory failure with hypoxia COPD exacerbation Pre-op examination History of OCD (obsessive compulsive disorder) History of panic attacks Anxiety and depression Radiculopathy, lumbar region HTN (hypertension) Sacroiliitis COPD (chronic obstructive pulmonary disease) Asthma Allergic rhinitis Disc degeneration, lumbar Surgical History History of surgery History of appendectomy Hx of tonsillectomy Status post excision of lipoma History of tubal ligation Hx of excision of mass History of surgery History of laparoscopic cholecystectomy History of esophagogastroduodenoscopy (EGD) History of umbilical hernia repair History of incision and drainage Family History Family/Other Cervical cancer Family/Other Stomach cancer Social History Household Members: Significant Other and Family Household Members Other:: grandson Housing: House Do you presently have visiting nurse or other home services: No Alcohol intake: never Comment: Significant other bedside Patient Tobacco Use Status: Former Tobacco user Tobacco use type: Cigarette Substance Use Type: Marijuana Advance Directives Date on File: 04/09/24 service: No Current occupational status: unemployed Sexual orientation: Straight/Heterosexual Gender identity: Female Review of Systems Const All systems reviewed & are unremarkable except as noted in HPI and below Eyes Reports no additional complaints ENT Reports nasal congestion and Reports nasal discharge (OFF AND ON) Card Denies chest pain, Denies irregular heart rhythm and Denies leg edema Resp Reports as per HPI GI Reports no additional complaints Reports no additional complaints Musc Reports back pain and Reports arthralgias Skin/Breast Reports system reviewed and no additional complaints, except as documented Neuro Reports no additional complaints Psych Reports depression (Mild) Endo Reports no additional complaints Physical Exam Vital Signs: Last Vital Signs Pulse 84 12/13/24 16:09 BP 170/80 H 12/13/24 16:09 Pulse Ox 98 12/13/24 16:09 Oxygen Delivery Method Room Air 12/13/24 16:09 BMI result Body Mass Index 21.0 Const General: comfortable, no acute distress, alert and awake Orientation/consciousness: patient oriented x3 HEENT Head: Yes normal to inspection General nose exam: No nasal polyps present, No nasal discharge present and Other nasal findings present (Mild bilateral nasal congestion) Face and sinus: Yes sinuses nontender Mouth: oropharynx normal Throat: Yes posterior oropharynx normal Eyes General: appearance normal, both eyes and all related structures Neck Neck: Yes normal visual inspection, Yes no lymphadenopathy, Yes trachea midline and Yes no JVD Thyroid: Thyroid normal Chest Chest palpation & inspection: normal inspection of the chest, normal palpation of entire chest wall and no tenderness Resp Other: Percussion note is HYPER RESONANT , She does have good breath sounds on both sides but quite distant with prolonged expiratory phase. Has a few inspiratory crackles over the basilar areas, Cardio Palpation: normal PMI Rate: regular rate Rhythm: regular rhythm Heart sounds: no gallops and no murmurs Peripheral pulses: Peripheral pulses 2+ throughout GI Palpation (GI): Soft to palpation, nontender, No hepatosplenomegaly present and no masses Auscultation: normal bowel sounds Back/Spine/Pelvis Thoracic/Lumbar Spine: thoracic and lumbar spine normal to inspection and thoraco-lumbar ROM limited Skin General skin exam: no rashes or lesions noted Neuro General: patient oriented x3 and no focal motor deficits Cranial nerves: Yes CN's II-XII intact bilaterally Extrem General: Yes normal to inspection, Yes no clubbing, cyanosis or edema and Yes no calf tenderness Psych Appearance: grossly normal and well kempt Speech and movement: Normal speech and movement present Results Reviewed Results Reviewed: TRYING TO GET REPORTS FROM [facility] PERTAINING TO HER TREATMENT. Assessment & Plan Assessment & Plan (1) COPD (chronic obstructive pulmonary disease): Comment: ASTHMA/COPD SEVERE. COPD IS DUE TO HER CHRONIC LIFELONG BRONCHIAL ASTHMA AND PAST HISTORY OF SMOKING. SHE IS PRONE TO HAVE FREQUENT ACUTE EXACERBATIONS. CLINICALLY DOING FAIRLY WELL AND IS STABLE AT THIS TIME. TODAY SHE SEEMS TO BE AT HER BASE LINE. Code(s): J44.9 - Chronic obstructive pulmonary disease, unspecified Category: Medical Qualifiers: COPD type: COPD with acute exacerbation Qualified Code(s): J44.1 - Chronic obstructive pulmonary disease with (acute) exacerbation Plan: I WENT OVER THE LIST OF HER MEDICAL REGIMEN AND ADVISED HER TO KEEP ON USING ALL PRESCRIBED MEDS. IT SHOULD BE NOTED THAT THE PATIENT FEELS COMFORTABLE BY TAKING PREDNISONE 5 MG DAILY, WE HAD TRIED TO STOP IT IN THE PAST AND SHE ENDS UP IN THE EMERGENCY ROOM OR IN THE HOSPITAL FREQUENTLY. (2) Respiratory failure with hypoxia: Comment: She was hypoxemic with minimal exertion. Has been started on O2 therapy. Feels stronger and better. USING O2 2 L/MINUTE 24 HOURS A DAY. HOWEVER WHEN RESTING AT HOME SHE COMES OF OXYGEN . FOR SHORT INTERVALS Code(s): J96.91 - Respiratory failure, unspecified with hypoxia Category: Medical Plan: CONTINUE O2 2 L/MINUTE AT HOME, MAY TAKE SHORT BREAKS WHEN SHE IS RESTING (3) Current non-smoker but past smoking history unknown: Comment: PATIENT DOES HAVE LONGSTANDING HISTORY OF SMOKING. SHE QUIT COMPLETELY SINCE ABOUT 4 YEARS AGO. DOES NOT HAVE ANY URGE. TO GO BACK TO SMOKING Code(s): Z78.9 - Other specified health status Category: Social Hx Plan: ADVISE THAT SHE SHOULD STAY AWAY FROM SMOKING (4) Pulmonary nodules: Comment: As noted in the CTA of chest report, she does have multiple pulmonary nodules, and 1 density is 2 cm in right lower lobe. These nodules may be non-specific/ inflammatory in nature/ and also representing patchy atelectasis. REPEAT CT SCAN ON 11/04/2024 SHOWED NONSPECIFIC DENSITIES BUT NO PULMONARY NODULE Code(s): R91.8 - Other nonspecific abnormal finding of lung field Category: Medical Plan: PATIENT HAD A CT SCAN AT [facility] AND WAS TOLD THAT SHE HAD SOME DENSITIES TO BE FOLLOWED UP. WE ARE TRYING TO GET THE REPORT FROM. [facility] Coding Level of Care Code Est Pt Level 4 (85265) Diagnoses COPD (chronic obstructive pulmonary disease) J44.1 COPD type: COPD with acute exacerbation Respiratory failure with hypoxia J96.91 Current non-smoker but past smoking history unknown Z78.9 Pulmonary nodules R91.8
--- OUTSIDE RECORDS SUMMARY | 2024-12-13 21:15 | XMS_ITS ---
Author Organization [employer] Address [address] [place] [id number] Care Team Providers Care Avionics Systems Engineer Name Role Phone Zev Sanders MD Primary Care Provider [phone] Gonzalo Lima Unavailable Benedict Lima RN Unavailable [phone] CH[facility] Complex Status:Enrolled (Active) Start date:10/04/2024 Enrollment date:10/14/2024 Enrollment reason:ADT Feed Overview ADT-[facility] ED 10/01/24 shortness of breath Case Team Name Relationship Phone Gonzalo Lima(Responsible Staff) [phone] Continued Care and Services Coordination
--- OUTSIDE RECORDS SUMMARY | 2024-12-13 21:15 | XMS_ITS | Encounter Summary ---
Author Organization [employer] Address [address] [facility] 7t [place] [address] Care Team Providers Care Tin Flopper Name Role Phone Zev Sanders MD Primary Care Provider [phone] Michelle Quiroz RN Unavailable [phone] Gonzalo Lima Unavailable Benedict Lima RN Unavailable [phone] Reason for Visit * Reason Onset Date Comments ER Follow-up 10/04/2024 Encounter Details Date Type Department Care Team ([facility] st Contact Info) Description 10/04/2024 Telephone [facility] CHC MED & PEDS [address] [place], [place] [phone] Zev Sanders MD [address] [place], [place] [phone] ER Follow-up Social History Tobacco Use Types [...] the past 12 months, has t he [employer], gas, oil or water [employer] threatened to shut off services in your [...] to report ED visit on : Date: [facility]: 10/01/24 Seen for: Trouble breathing Symptomatic No Requesting a referral to brim cutter at [facility]. Contact pt at [phone] documented in this encounter Plan of Treatment Upcoming Encounters Date Type Department Care Team (Late st Contact Info) Description 01/17/2025 3:15 PM EDT Office Visit [facility] CHC MED & PEDS [address] [place] [address] Zev Sanders MD [address] [place] [address] documented as of this encounter Visit Diagnoses Not on filedocumented in this encounter Additional Health Concerns Assessment Noted Time PHQ-9 Depression Total Score: 7 10/14/19 24 11:59 AM EDT documented as of this encounter Care Teams Tin Flopper Relationship Specialty Start Date End Date Zev Sanders MD [address] [place] [address] PCP - General Internal Medicine 11/16/19 Michelle Quiroz, BIANCA [address] [place], [place] [phone] Registered Nurse Family Medicine 10/04/24 12/06/24 Gonzalo Lima 10/04/24 Benedict Lima RN [address] [place], [place] [phone] Registered Nurse Family Medicine 12/06/24 documented as of this encounter
--- OUTSIDE RECORDS SUMMARY | 2024-12-13 21:15 | XMS_ITS | Encounter Summary ---
Author Organization [email or web address] Address [address] [facility] [address] [address] 7[address] [place] [address] Care Team Providers Care Debt Collector Name Role Phone Zev Sanders MD Primary Care Provider [phone] Michelle Quirzo RN Unavailable [phone] Gonzalo Lima Unavailable Benedict Lima RN Unavailable [phone] Encounter Details Date Type Department Care Team (Late st Contact Info) Description 11/24/2024 Orders Only [facility] CHC MED & PEDS [address] [place] [address] Provider, MD Josh Social History Tobacco Use [...] Upcoming Encounters Date Type Department Care Team ([facility] Contact Info) Description 01/17/2025 3:15 PM EDT Office Visit [facility] CHC MED & PEDS [address] [place] [address] Zev Sanders MD [address] [place] [address] documented as of this encounter Procedures Procedure [...] documented as of this encounter Care Teams Debt Collector Relationship Specialty Start Date End Date Beauzile, Thevenin, MD [address] [place], [place] [phone] PCP - General Internal Medicine 11/16/19 Michelle Quiroz, BIANCA [address] [place], [place] [phone] Registered Nurse Family Medicine 10/04/24 12/06/24 Gonzalo Lima 10/04/24 Benedict Lima RN [address] [place], [place] [phone] Registered Nurse Family Medicine 12/06/24 documented as of this encounter
--- OUTSIDE RECORDS SUMMARY | 2024-12-13 21:15 | XMS_ITS | Encounter Summary ---
Author Organization [employer] Address [address] [facility] 7t [place] [address] Care Team Providers Care Material Handler 1St Shift Name Role Phone Zev Sanders MD Primary Care Provider [phone] Gonzalo Lima Unavailable Benedict Lima RN Unavailable [phone] Reason for Visit * Reason Onset Date Comments F/U CT scan 12/10/2024 Encounter Details Date Type Department Care Team (Late st Contact Info) Description 12/10/2024 Telephone [facility] MEDICINE [address] [place] [address] Zev Sanders MD [address] [place] [address] F/U CT scan Social History Tobacco Use Types Packs/Day Years [...] encounter Miscellaneous Notes * Telephone Encounter - Tia Person RN - 12/10/2024 2:03 PM EDT Noted. * Telephone Encounter - Tia Person RN - 12/10/2024 11:07 AM EDT Images from the original note were not included. Noted. Patient was referred to lung nodule program by thoracic surgery who recommended repeat CT scan in 3 months. RN called [facility] [phone] who confirms the patient is scheduled for repeat CT scan on 02/22/25 at 3pm. RN was informed they will reach out to the patient to notify of the appointment date and time. Sending to PCP as FYI. MD Tuan Mascorro [facility] Med & Peds Nurses FYI. Ms Deysi Izquierdo was called. No answer. A message was left to verify if she had received a referral regarding the lung nodule program. A lung nodule was noted on her CTA while hospitalized. A repeat CT scan in 3 months is recommended. documented in this encounter Plan of Treatment Upcoming Encounters Date Type Department Care Team ([facility] st Contact Info) Description 01/17/2025 3:15 PM EDT Office Visit [facility] MED & PEDS [address] [place] [address] Zev Sanders MD [address] [place] [address] documented as of this encounter Visit Diagnoses Not on filedocumented in this encounter Additional Health Concerns Assessment Noted Time PHQ-9 Depression Total Score: 2 10/15/19 11:49 AM EDT documented as of this encounter Care Teams Material Handler 1St Shift Relationship Specialty Start Date End Date Zev Sanders MD [address] [place] [address] PCP - General Internal Medicine 11/16/19 Gonzalo Lima 10/04/24 Benedict Lima RN [address] [place] [address] Registered Nurse Family Medicine 12/06/24 documented as of this encounter
--- OUTSIDE RECORDS SUMMARY | 2024-12-13 21:15 | XMS_ITS | Encounter Summary ---
Author Organization [employer] Address [address] [facility] 7t [place] [address] Care Team Providers Care Photographic Restorer Name Role Phone Zev Sanders MD Primary Care Provider [phone] Michelle Quiroz RN Unavailable [phone] Gonzalo Lima Unavailable Benedict Lima RN Unavailable [phone] Reason for Visit * Reason Comments Med Refill Encounter Details Date Type Department Care Team (Late st Contact Info) Description 10/28/2024 Refill [facility] CHC MED & PEDS [address] [place], [place] [phone] Darlene Gant MD [address] [place] [address] Chronic low back pain, unspecified back pain [...] Description 01/17/2025 3:15 PM EDT Office Visit [facility] CHC MED & PEDS [address] [place] [address] Zev Sanders MD [address] [place] [address] documented as of this encounter Visit Diagnoses Diagnosis Chronic low back pain, unspecified back pain laterality, unspecified whether sciatica present documented in this encounter Additional Health Concerns Assessment Noted Time PHQ-9 Depression Total Score: 2 10/15/19 25 11:49 AM EDT documented as of this encounter Care Teams Photographic Restorer Relationship Specialty Start Date End Date Zev Sanders MD [address] [place] [address] PCP - General Internal Medicine 11/16/19 Michelle Quiroz RN [address] [place] [address] Registered Nurse Family Medicine 10/04/24 12/06/24 Gonzalo Lima 10/04/24 Benedict Lima RN [address] [place] [address] Registered Nurse Family Medicine 12/06/24 documented as of this encounter
--- OUTSIDE RECORDS SUMMARY | 2024-12-13 21:15 | XMS_ITS | Encounter Summary ---
Author Organization [employer] Address [address] [facility] [address] 7t [place] [address] Care Team Providers Care Special Effects Specialist Name Role Phone Zev Sanders MD Primary Care Provider [phone] Michelle Quiroz RN Unavailable [phone] Gonzalo Lima Unavailable Benedict Lima RN Unavailable [phone] Encounter Details Date Type Department Care Team (Late st Contact Info) Description 11/25/2024 Orders Only [facility] CHC MED & PEDS [address] [place] [address] Provider, MD Josh Social History Tobacco Use [...] Encounters Date Type Department Care Team ([facility] Contact Info) Description 01/17/2025 3:15 PM EDT Office Visit [facility] CHC MED & PEDS [address] [place] [address] Zev Sanders MD [address] [place] [address] documented as of this encounter Procedures Procedure [...] documented as of this encounter Care Teams Special Effects Specialist Relationship Specialty Start Date End Date Zev Sanders MD [address] [place] [address] PCP - General Internal Medicine 11/16/19 Michelle Quiroz RN [address] [place] [address] Registered Nurse Family Medicine 10/04/24 12/06/24 Gonzalo Lima 10/04/24 Benedict Lima RN [address] [place] [address] Registered Nurse Family Medicine 12/06/24 documented as of this encounter
--- OUTSIDE RECORDS SUMMARY | 2024-12-13 21:15 | XMS_ITS ---
Author Organization [employer] Address [address] [place] [address] [address] [place] [address] Care Team Providers Care Geometry Tutor Name Role Phone Zev Sanders MD Primary Care Provider [phone] Gonzalo Lima Unavailable Benedict Lima RN Unavailable [phone] Complex Status:Enrolled (Active) Start date:10/04/2024 Enrollment date:10/14/2024 Enrollment reason:ADT Feed Overview ADT-[facility] ED 10/01/24 shortness of breath Case Team Name Relationship Phone Benedict Lima RN(Responsible Staff) Registered Nurse [phone] Continued Care and Services Coordination
--- OUTSIDE RECORDS SUMMARY | 2024-12-13 21:15 | XMS_ITS | Encounter Summary ---
Author Organization [employer] Address [address] [facility] 7t [place] [address] Care Team Providers Care Functional Mental Disability Teacher Name Role Phone Zev Sanders MD Primary Care Provider [phone] Michelle Quiroz RN Unavailable [phone] Gonzalo Lima Unavailable Benedict Lima RN Unavailable [phone] Encounter Details Date Type Department Care Team (Late st Contact Info) Description 11/23/2024 Orders Only [facility] [address] [place] [address] Provider, MD Josh Social History Tobacco Use [...] Encounters Date Type Department Care Team ([facility] Contact Info) Description 01/17/2025 3:15 PM EDT Office Visit [facility] CHC MED & PEDS [address] [place] [address] Zev Sanders MD [address] [place] [address] documented as of this encounter Procedures Procedure [...] documented as of this encounter Care Teams Functional Mental Disability Teacher Relationship Specialty Start Date End Date Zev Sanders MD [address] [place] [address] PCP - General Internal Medicine 11/16/19 Michelle Quiroz RN [address] [place] [address] Registered Nurse Family Medicine 10/04/24 12/06/24 Gonzalo Lima 10/04/24 Benedict Lima RN [address] [place] [address] Registered Nurse Family Medicine 12/06/24 documented as of this encounter
--- OUTSIDE RECORDS SUMMARY | 2024-12-13 21:15 | XMS_ITS | Encounter Summary ---
Author Organization [employer] Address [address] [facility] 7t [place] [address] Care Team Providers Care Esol Teacher Name Role Phone Zev Sanders MD Primary Care Provider [phone] Michelle Quiroz RN Unavailable [phone] Gonzalo Lima Unavailable Benedict Lima RN Unavailable [phone] Reason for Visit * Reason Onset Date Comments Med Refill 07/21/2023 Encounter Details Date Type Department Care Team (Late st Contact Info) Description 07/21/2023 Telephone [facility] MEDICINE [address] [place] [address] Zev Sanders MD [address] [place], [place] [phone] Med Refill Social History Tobacco Use Types [...] 150 MG capsule To be sent to: [facility] - [place], [place] - [address] [place] [address] documented in this encounter Plan of Treatment Upcoming Encounters Date Type Department Care Team ([facility] st Contact Info) Description 01/17/2025 3:15 PM EDT Office Visit [facility] CHC MED & PEDS [address] [place] [address] Zev Sanders MD [address] [place] [address] documented as of this encounter Visit Diagnoses Not on filedocumented in this encounter Care Teams Esol Teacher Relationship Specialty Start Date End Date Zev Sanders MD [address] [place] [address] PCP - General Internal Medicine 11/16/19 Michelle Quiroz RN [address] [place] [address] Registered Nurse Family Medicine 10/04/24 12/06/24 Gonzalo Lima 10/04/24 Benedict Lima RN [address] [place] [address] [place] [address] Registered Nurse Family Medicine 12/06/24 documented as of this encounter
--- OUTSIDE RECORDS SUMMARY | 2024-12-13 21:15 | XMS_ITS | Encounter Summary ---
Author Organization [employer] Address [address] [facility] 7t [place] [address] Care Team Providers Care Sample Display Preparer Name Role Phone Zev Sanders MD Primary Care Provider [phone] Michelle Quiroz RN Unavailable [phone] Gonzalo Lima Unavailable Benedict Lima RN Unavailable [phone] Encounter Details Date Type Department Care Team (Late st Contact Info) Description 12/24/2022 Orders Only [facility] MEDICINE [address] [place], [place] [phone] Provider, MD Josh Social History Tobacco Use [...] Description 01/17/2025 3:15 PM EDT Office Visit [facility] CHC MED & PEDS [address] [place], [place] [phone] Zev Sanders MD [address] [place], [place] [phone] documented as of this encounter Procedures Procedure Name Priority Date/Time Associated Diagnosis Comments HM PAP/HPV Routine 01/15/2022 documented in this encounter Results * Hm Pap Smear (01/15/2022) Historical Provider HEALTH MAINTENANCE Final Result documented in this encounter Visit Diagnoses Not on filedocumented in this encounter Care Teams Sample Display Preparer Relationship Specialty Start Date End Date Zev Sanders MD [address] [place] [address] PCP - General Internal Medicine 11/16/19 Michelle Quiroz RN [address] [place] [address] Registered Nurse Family Medicine 10/04/24 12/06/24 Gonzalo Lima 10/04/24 Benedict Lima RN [address] [place] [address] Registered Nurse Family Medicine 12/06/24 documented as of this encounter
--- OUTSIDE RECORDS SUMMARY | 2024-12-13 21:15 | XMS_ITS | Clinical Summary ---
Author Organization [employer] Address [address] [facility] [address] [place] [address] Care Team Providers Care Textile Chemist Name Role Phone Zev Sanders MD Primary Care Provider [phone] Gonzalo Lima Unavailable Benedict Lima RN Unavailable [phone] Allergies Active Allergy Reactions Criticality Noted Date Comments Penicillins Rash High 05/13/2019 RASH ON MOUTH WHEN A CHILD Shellfish Allergy Rash Low 04/08/2024 Medications tiotropium (Spiriva Respimat) 2.5 MCG/ACT inhalerIndicat ions:COPD (chronic obstructive pulmonary disease) case management patient ([facility]) INHALE TWO PUFF BY MOUTH [...] Encounters Date Type Department Care Team Description 12/10/2024 Telephone [facility] [address] [place] [phone] Zev Sanders MD F/U CT scan 12/07/2024 3:45 PM EDT Office Visit [facility] [address] [place] [address] Zev Sanders MD Lower limb pain, anterior, right (Primary Dx); Essential hypertension; Asthma-chronic obstructive pulmonary disease overlap syndrome (CMS/HCC); Other migraine without status migrainosus, not intractable 12/07/2024 Travel 12/06/2024 Patient Outreach [facility] [address] [place] [address] Zev Sanders MD Care Management (C3CM- f/u call) 12/06/[address] [facility] [address] [place] [address] Zev Sanders MD Chart Prep 12/02/[address] [facility] [address] [place] [address] Zev Sanders MD Chronic low back pain, unspecified back pain laterality, unspecified whether sciatica present 11/30/[address] [facility] [address] [place] [address] Zev Sanders MD ER Follow-up 11/30/[address] [facility] [address] [place] [address] Zev Sanders MD 11/26/2024 Patient Outreach [facility] [address] [place] [address] Zev Sanders MD 11/26/2024 Patient Outreach [address] [address] Zev Sanders MD Transition Of Care (Tcm) (HDF unscheduled LVM ) 11/25/[address] [facility] [address] [place] [address] Josh Leonard MD 11/24/[address] [facility] [address] [place] [address] Josh Leonard MD 11/23/[address] [facility] [address] [place] [address] Zev Sanders MD No Show 11/23/[address] [facility] [address] [place] [address] Zev Sanders MD 11/23/2024 Orders Only [facility] [address] [place] [address] Josh Leonard MD 11/22/2024 Patient Outreach [address] [address] Zev Sanders MD 11/22/2024 Patient Outreach [address] [address] Zev Sanders MD Care Coordination ([facility]/W Gonzalo Lima [facility] f/u call) 11/22/[address] [facility] [address] [place] [address] Zev Sanders MD Care Coordination ([facility] f/u call) 11/11/2024 1:15 PM EDT Telemedicine [facility] [address] [place] [address] Martha Zimmer, BIANCA Chest pain, unspecified type [R07.9] 11/11/2024 Travel 11/11/2024 Patient Outreach [address] [address] Zev Sanders MD Care Management (C3CM- f/u call lvm) 11/04/2024 Orders Only [facility] External Provider, [facility] 11/01/[address] [facility] [address] [place] [address] Zev Sanders MD No Show 11/01/[address] [facility] [address] [place] [address] Darlene Gant MD Chronic low back pain, unspecified back pain laterality, unspecified whether sciatica present 10/28/[address] [facility] [address] [place] [address] Darlene Gant MD Chronic low back pain, unspecified back pain laterality, unspecified whether sciatica present 10/28/2024 Patient Outreach [address] [address] Zev Sanders MD Care Management (C3CM- f/u call) 10/22/2024 11:00 AM EDT Telemedicine [facility] [address] [place] [address] Humaira Lopez RN Fall, subsequent encounter [W19.XXXD] 10/21/2024 1:00 PM EDT Office Visit [facility] [address] [place] [address] Wendy Andre MD Constipation, unspecified constipation type (Primary Dx); Palpitations 10/21/2024 Travel 10/20/[address] [facility] [address] [place] [address] Zev Sanders MD Nurse Triage 10/15/[address] [facility] [address] [place] [address] Zev Sanders MD 10/14/2024 Plan of Care Documentation [address] [address] 10/14/2024 Patient Outreach [address] [address] Zev Sanders MD Care Coordination ([facility]/DESEAN Lima, [facility] assessment, Enrolled CM Program ) 10/14/[address] [facility] [address] [place] [address] Zev Sanders MD Care Coordination ([facility] initial assessment) 10/13/2024 Patient Outreach [address] [address] Zev Sanders MD Care Coordination ([facility]/DESEAN Lima, Appt reminder ) 10/11/[address] [facility] [address] [place] [address] Zev Sanders MD 10/06/[address] [facility] [address] [place] [address] Zev Sanders MD Med Refill 10/06/[address] [facility] [address] [place] [address] Zev Sanders MD Chronic low back pain, unspecified back pain laterality, unspecified whether sciatica present 10/04/[address] [facility] [address] [place] [address] Zev Sanders MD ER Follow-up 10/04/2024 Travel 10/04/2024 Patient Outreach [address] [address] Zev Sanders MD Care Coordination ([facility]DESEAN Lima, initial oureach_assessment scheduled) 10/04/2024 Patient Outreach [address] [address] Zev Sanders MD Care Coordination ([facility]DESEAN Lima, Chart review) 10/04/[address] [address] Zev Sanders MD Nurse Triage 10/04/2024 Patient Outreach [facility] [address] [place] [address] Zev Sanders MD Care Coordination ([facility] chart review) 10/04/2024 Patient Outreach [address] [address] Zev Sanders MD 09/30/2024 Patient Outreach [address] [address] Zev Sanders MD Transition Of Care (Tcm) (HDF unscheduled LVM ) 09/28/2024 Patient Outreach [address] [address] Zev Sanders MD Transition Of Care (Tcm) [...] Description 01/17/2025 3:15 PM EDT Office Visit [facility] [address] [place], [place] [phone] Zev Sanders MD [address] [facility] MARIE Thompson [address] Health Maintenance Due Date Last Done Comments CT Colonography 1970 Colonoscopy 1970 FIT 1970 HIV Screening 1970 Sigmoidoscopy 1970 Hepatitis A Vaccines (1 of 2 - Risk 2-dose series) 1989 Hepatitis B Vaccines (1 of 3 - 19+ 3-dose series) 1989 Mammogram 10/18/2023 10/17/2021, 12/04/2017 FOBT 03/10/2024 03/10/2023 Zoster Vaccines (2 of 2) 06/24/2024 04/29/2024 COVID-19 Vaccine ( - season) 2024 Influenza Vaccine (#1) 2024 , [...] Region Laterality Modality Chest Radiographic Joy ging Result [facility] Historical Provider IMG XR PROCEDURES Final R esult * Transthoracic echo (TTE) complete (11/23/2024 3:04 PM EDT) Result [facility] Provider CV ECHO PROCEDURES Final Result * ECG 12 lead (11/23/2024 11:53 AM EDT) Only the most recent of5 resultswithin the time period is included. Result [facility] Provider ECG ORDERABLES Final Res ult * CT Head w/o Contrast (11/22/2024 10:55 AM EDT) Anatomical Region Laterality Modality Head, Neck Computed Tomogra phy Result [facility] Provider IMG CT PROCEDURES Final R esult * CT CHEST ANGIO W AND WO IV CONTRAST (11/22/2024 10:47 AM EDT) Anatomical Region Laterality Modality Computed Tomogra phy Result [facility] Provider IMG CT PROCEDURES Final R esult * CT Chest w/ Contrast (11/04/2024 2:52 PM EDT) Anatomical Region Laterality Modality Body, Chest Computed Tomogra phy 11/04/2024 2:52 PM EDT Narrative 11/04/2024 4:05 PM EDT [place] [address] [address] Scan Report Signed Patient: Deysi Pfeiffer MR#: [id number] : 1970 Acct:[id number] Age/Sex: 54 / F ADM Date: 11/04/24 Loc: HO.ED Attending Dr: Ordering Physician: Gloria Hassan PA-C Date of Service: 11/04/24 Procedure(s): CT chest w IV con Accession Number(s): [id number] cc: Zev Sanders MD; Gloria Hassan PA-C Report Number: [id number]: Total DLP = 155.70 mGy-cm EXAMINATION: CT [...] reconstruction technique DLP: 147.89 mGy centimeter. FINDINGS: RESEARCH EPIDEMIOLOGIST: Hyperinflation. Pulmonary reticular pattern. Patchy opacities, lower [...] 11/04/24 1602 DD/ 1452 TD/TT: 11/04/24 1546 Plant Cytologist: Procedure Note Donotuseinterpreter, Image - 11/04/[address] [place] [address] [address] Scan Report Signed Patient: Deysi Pfeiffer DMR#: [id number] : 1970Acct:[id number] Age/Sex: 54 / FADM Date: 11/04/24 Loc: HO.ED Attending Dr: Ordering Physician: Gloria Hassan PA-C Date of Service: 11/04/24 Procedure(s): CT chest w IV con Accession Number(s): [id number] cc: Zev Sanders MD; Gloria Hassan PA-C Report Number: [id number]: Total DLP = 155.70 mGy-cm EXAMINATION: CT [...] reconstruction technique DLP: 147.89 mGy centimeter. FINDINGS: RESEARCH EPIDEMIOLOGIST: Hyperinflation. Pulmonary reticular pattern. Patchy opacities, lower [...] 11/04/24 1602 DD/ 1452 TD/TT: 11/04/24 1546 Plant Cytologist: [facility] External Provider IMG CT PROCEDURES Final Result * CT Head for ICH (11/04/2024 1:52 PM EDT) Anatomical Region Laterality Modality Head, Neck Computed Tomogra phy 11/04/2024 1:52 PM EDT Narrative 11/04/2024 4:05 PM EDT [address] [address] [address] Scan Report Signed Patient: Deysi Pfeiffer MR#: [id number] : 1970 Acct:[id number] Age/Sex: 54 / F ADM Date: 11/04/24 Loc: HO.ED Attending Dr: Ordering Physician: Gloria Hassan PA-C Date of Service: 11/04/24 Procedure(s): CT Head for ICH Accession Number(s): [id number] cc: Zev Sanders MD; Gloria Hassan PA-C Report Number: [id number]: Total DLP = 629.57 mGy-cm EXAMINATION: CT [...] 11/04/24 1602 DD/ 1352 TD/TT: 11/04/24 1546 Plant Cytologist: Procedure Note Donotuseinterpreter, Image - 11/04/[address] [place] [address] [address] Scan Report Signed Patient: Deysi Pfeiffer [facility]#: [id number] : 1970Acct:[id number] Age/Sex: 54 / FADM Date: 11/04/24 Loc: HO.ED Attending Dr: Ordering Physician: Gloria Hassan PA-C Date of Service: 11/04/24 Procedure(s): CT Head for ICH Accession Number(s): [id number] cc: Zev Sanders MD; Gloria Hassan PA-C Report Number: [id number]: Total DLP = 629.57 mGy-cm EXAMINATION: CT [...] 11/04/24 1602 DD/ 1352 TD/TT: 11/04/24 1546 Plant Cytologist: [facility] External Provider IMG CT PROCEDURES Final Result * XR Chest 2 Views (10/21/2024 4:10 PM EDT) Anatomical Region Laterality Modality Chest Radiographic Joy ging 10/21/2024 4:10 PM EDT Narrative 10/21/2024 4:54 PM EDT [address] [address] XRay Report Signed Patient: Deysi Pfeiffer MR#: [id number] : 1970 Acct:[id number] Age/Sex: 54 / F ADM Date: 10/21/24 Loc: HO.ED Attending Dr: Ordering Physician: Kimberly Tello Date of Service: 10/21/24 Procedure(s): XR chest 2V Accession Number(s): [id number] cc: Zev Sanders MD; Kimberly Tello EXAMINATION: [...] 10/21/24 1651 DD/ 1610 TD/TT: 10/21/24 1625 Plant Cytologist: Procedure Note Donotuseinterpreter, Image - 10/21/[address] [address] XRay Report Signed Patient: Deysi Pfeiffer DMR#: [id number] : 1970Acct:[id number] Age/Sex: 54 / FADM Date: 10/21/24 Loc: .ED Attending Dr: Ordering Physician: Kimberly Tello Date of Service: 10/21/24 Procedure(s): XR chest 2V Accession Number(s): [id number] cc: Zev Sanders MD; Kimberly Tello EXAMINATION: [...] 10/21/24 1651 DD/ 1610 TD/TT: 10/21/24 1625 Plant Cytologist: [facility] External Provider IMG XR PROCEDURES Edited Result - Final * XR Shoulder 2+ Views Right (10/21/2024 3:33 PM EDT) Anatomical Region Laterality Modality Upper Extremities, Shoulder Right Radi ographic Imaging 10/21/2024 3:33 PM EDT Narrative 10/21/2024 4:55 PM EDT [place] [address] XRay Report Signed Patient: Deysi Pfeiffer MR#: [id number] : 1970 Acct:[id number] Age/Sex: 54 / F ADM Date: 10/21/24 Loc: HO.ED Attending Dr: Ordering Physician: Kimberly Tello Date of Service: 10/21/24 Procedure(s): XR shoulder RT min 2V Accession Number(s): [id number] cc: Zev Sanders MD; Kimberly Tello EXAMINATION: [...] 10/21/24 1652 DD/ 1533 TD/TT: 10/21/24 1625 Plant Cytologist: Procedure Note Donotuseinterpreter, Image - 10/21/2024 [place] [address] XRay Report Signed Patient: Deysi Pfeiffer DMR#: [id number] : 1970Acct:[id number] Age/Sex: 54 / FADM Date: 10/21/24 Loc: .ED Attending Dr: Ordering Physician: Kimberly Tello Date of Service: 10/21/24 Procedure(s): XR shoulder RT min 2V Accession Number(s): [id number] cc: Zev Sanders MD; Kimberly Tello EXAMINATION: [...] 10/21/24 1652 DD/ 1533 TD/TT: 10/21/24 1625 Plant Cytologist: us [facility] External Provider IMG XR PROCEDURES Edited Result - Final * CTA Chest PE Protocal (09/25/2024 7:40 PM EDT) Anatomical Region Laterality Modality Body, Chest Computed Tomogra phy 09/25/2024 7:40 PM EDT Narrative 09/25/2024 7:42 PM EDT [address] [address] [address] Scan Report Signed Patient: Deysi Pfeiffer MR#: [id number] : 1970 Acct:[id number] Age/Sex: 54 / F ADM Date: 09/25/24 Loc: .ED Attending Dr: Ordering Physician: Madeleine Aparicio MD Date of Service: 09/25/24 Procedure(s): CT angio chest PE protocol Accession Number(s): [id number] cc: Zev Sanders MD; Madeleine Aparicio MD Report Number: [id number]: Total DLP = 579.00 mGy-cm CLINICAL HISTORY: [...] in OV> 09/25/241941 DD/ 39 TD/TT: 09/25/241939 Plant Cytologist: Procedure Note Donotuseinterpreter, Image - 09/25/[address] [place] [address] [address] Scan Report Signed Patient: Deysi Pfeiffer [facility]#: [id number] : 1970Acct:[id number] Age/Sex: 54 / FADM Date: 09/25/24 Loc: HO.ED Attending Dr: Ordering Physician: Madeleine Aparicio MD Date of Service: 09/25/24 Procedure(s): CT angio chest PE protocol Accession Number(s): [id number] cc: Zev Sanders MD; Madeleine Aparicio MD Report Number: [id number]: Total DLP = 579.00 mGy-cm CLINICAL HISTORY: [...] MD in OV> 09/25/241941 DD/ 39 TD/TT: 06/28/25 1940 Plant Cytologist: us [facility] External Provider IMG CT PROCEDURES Edited Result - Final * CT Abdomen Pelvis w/ Contrast (09/25/2024 7:23 PM EDT) Anatomical Region Laterality Modality Body, Pelvis, Abdomen Computed T omography 09/25/2024 7:23 PM EDT Narrative 09/25/2024 7:25 PM EDT [place] [address] CT Scan Report Signed Patient: Deysi Pfeiffer MR#: [id number] : 1970 Acct:[id number] Age/Sex: 54 / F ADM Date: 09/25/24 Loc: HO.ED Attending Dr: Ordering Physician: Madeleine Aparicio MD Date of Service: 09/25/24 Procedure(s): CT abdomen pelvis w IV con Accession Number(s): [id number] cc: Zev Sanders MD; Madeleine Aparicio MD Report Number: [id number]: Total DLP = 579.00 mGy-cm CLINICAL HISTORY: [...] in OV> 09/25/241923 DD/ 22 TD/TT: 09/25/241922 Plant Cytologist: Procedure Note Donotuseinterpreter, Image - 09/25/[address] [address] [address] Scan Report Signed Patient: Deysi Pfeiffer DMR#: [id number] : 1970Acct:[id number] Age/Sex: 54 / FADM Date: 09/25/24 Loc: HO.ED Attending Dr: Ordering Physician: Madeleine Aparicio MD Date of Service: 09/25/24 Procedure(s): CT abdomen pelvis w IV con Accession Number(s): [id number] cc: Zev Sanders MD; Madeleine Aparicio MD Report Number: [id number]: Total DLP = 579.00 mGy-cm CLINICAL HISTORY: [...] in OV> 09/25/241923 DD/ 22 TD/TT: 09/25/241922 Plant Cytologist: [facility] External Provider IMG CT PROCEDURES Edited Result - Final * (ABNORMAL) VENOUS BLOOD GAS (09/25/2024 4:57 PM EDT) Pathologist [facility] VBG pH 7.49(H) 7.32 - 7.43 [facility] Comment:METER #: [id number] additional_comment: Joshua weber VBG PCO2 42 mmHg [facility] Comment:METER #: [id number] additional_comment: Joshua weber VBG PO2 72 mmHg [facility] Comment:METER #: [id number] additional_comment: Cb tia VBG Base Excess 9.1 mmol/L [facility] Comment:METER #: [id number] additional_comment: Cb tia VBG HCO3 33(H) 22 - 26 mmol/L [facility] Comment:METER #: [id number] additional_comment: Cb tia O2 Sat, Lefty 96.0 % [facility] Comment:METER #: [id number] additional_comment: Joshua weber 09/25/2024 4:57 PM EDT 09/25/2024 5:04 PM EDT us Generic External Data Provider LAB BLOOD ORDERAB LES Final Result Performing Organization Address City/[facility]/ZIP Co de Phone Number [facility] [address] [place] [phone] * HOLD LT BLUE - POSSIBLE COAG (09/25/2024 4:47 PM EDT) [facility] Hold Lt Blue - Possible Coag SEE NOTE [facility] Comment:Specimen will be hel d untested for 4 hours. Call Hematologyif testing is desired. 09/25/2024 4:47 PM EDT 09/25/2024 5:06 PM EDT us Generic External Data Provider LAB BLOOD ORDERAB LES Final Result Performing Organization Address [facility]/ZIP Co de Phone Number [facility] [address] [place] [phone] * Lactic Acid (09/25/2024 4:47 PM EDT) [facility] Lactic Acid 0.9 0.5 - 2.0 mmol/L [facility] 09/25/2024 4:47 PM EDT 09/25/2024 4:55 PM EDT Generic External Data Provider LAB BLOOD ORDERAB LES Final Result Performing Organization Address [facility] Co de Phone Number [facility] [address] [place] [phone] * SARS-CoV-2 RNA, Influenza A/B, and RSV RNA, Ql NAAT (09/25/2024 4:46 PM EDT) [facility] Influenza A PCR NEGATIVE Negative [facility] Influenza B PCR NEGATIVE Negative [facility] Resp Syncy Virus RNA Qual PCR NEGATIVE Negative [facility] SARS COV2 PCR NEGATIVE Negative [facility] Comment:All test results mus t be [...] use by authorized laboratories.Testing performed on the [employer] GeneXpert utilizingreal-time RT-PCR.All SARS CoV2 and positive influenza A/B results arereported to [facility]. 09/25/2024 4:46 PM EDT 09/25/2024 4:55 PM EDT Generic External Data Provider LAB MICROBIOLOGY - GENERAL ORDERABLES Final Result Performing Organization Address [facility] Co de Phone Number [facility] [address] [place] [phone] * (ABNORMAL) Urinalysis, Complete, with Reflex to Culture (09/25/2024 3:46 PM EDT) Color Urine Yellow [facility] Appearance Urine Clear [facility] PH 5.5 5.0 - 9.0 [facility] Glucose Urine UA Negative Negative mg/dL [facility] Urine Blood Negative Negative [facility] Specific [place] - Urine 1.010 1.005 - 1.025 [facility] Urine Protein Negative Neg-Trace mg/dL [facility] Urine Ketones Negative Negative mg/dL [facility] Nitrite Urine Negative Negative [facility] Leukocyte Esterase Urine Trace(A) Negative [facility] RBC Urine 0-2 0 - 2 /HPF [facility] Urine WBC 0-5 0 - 5 /HPF [facility] Urine Squamous Epithelial Cell 0-2 0 - 2 /HPF [facility] Urine Bacteria None Seen None Seen [facility] Hyaline Casts, Urine 0-2 0 - 2 /LPF [facility] 09/25/2024 3:46 PM EDT 09/25/2024 3:49 PM EDT Narrative [facility] - 09/25/2024 4:22 PM EDT Urine, Clean Catch us Generic External Data Provider LAB URINE ORDERAB LES Final Result Performing Organization Address [facility] Co de Phone Number [facility] [address] [place] [phone] * HCG, Qualitative, Urine (09/25/2024 3:46 PM EDT) Urine NEGATIVE NEGATIVE [facility] Comment:This test was develo ped to detect early . Falsenegative results may occur after the 5th - 7th week ofpregnancy when using this test method. If clinicallyindicated, consider a serum hCG. 09/25/2024 3:46 PM EDT 09/25/2024 3:49 PM EDT us Generic External Data Provider LAB URINE ORDERAB LES Final Result Performing Organization Address City/[facility]/ZIP Co de Phone Number [facility] [address] [place] [phone] * Cologuard?? colon cancer screening (03/10/2023 2:14 PM EST) Cologuard Result Negative Negative 03/21/20 1:56 AM EST [employer] (CLIA #:[id number]) Comment: NEGATIVE TEST RESULT. A negative Cologuard [...] Luis Robles al, N Engl J Med 2014;370(14):3001-6495) The normal value (reference range) for this assay is negative. COLOGUARD RE-SCREENING RECOMMENDATION: Periodic colorectal cancer screening is an important part of preventive healthcare for asymptomatic individuals at average risk for colorectal cancer. Following a negative Cologuard result, the [employer] and U.S. Multi-Society Task Force screening guidelines recommend a Cologuard re-screening interval of 3 years. References: [employer] Guideline for Colorectal Cancer Screening: https://www.cancer.org/cancer/xmasf-wlehzy-pbzfie/hlmmkpmjg-dyzkruqay-boyxzqh/ac s-rec ommendations.html.; Edgar DK, Antonio CR, Salma CorderoK, Colorectal Cancer Screening: Recommendations for Physicians and Patients from the U.S. Multi-Society Task Force on Colorectal Cancer Screening , Am J Gastroenterology 2017; 112:2211-0128. TEST DESCRIPTION: Composite algorithmic analysis of stool [...] Luis Robles al, N Engl J Med 2014;370(14):6390-4065.) Cologuard may produce a false negative or false positive result (no colorectal cancer or precancerous polyp present at colonoscopy follow up). A negative Cologuard test result does not guarantee the absence of CRC or advanced adenoma (pre-cancer). The current Cologuard screening interval is every 3 years. ([place] [employer] and U.S. Multi-Society Task Force). Cologuard performance data in a 10,000 patient pivotal study using colonoscopy as the reference method can be accessed at the following location: www.[employer]/results. Additional description of the Cologuard test process, warnings and precautions can be found at www.[employer].com. Stool specimen (specimen) 03/10/2023 2:14 PM EST 03/12/2023 8:29 PM EST us Zev Sanders MD LAB MOLECULAR DIAGNOSTICS O RDERABLES Final Result [employer] (CLIA #:[id number]) [address] [place] [address], * HPV E6/E7 RFLX VANNESSA 16 18/45 (01/15/2022 10:19 AM EDT) HPV mRNA E6/E7 rflx Not Detected Not Detected [facility] Comment: Methodology: Disease And Insect Control Boss-Mediated Amplification This assay detects E6/E7 viral messenger RNA (mRNA) from 14 high-risk HPV types (16,18,31,33,35,39,45,51,52,56,58,59,66,68). Cervical sources are required for HPV testing. If a vaginal source from a patient who has had a total hysterectomy with removal of cervix was submitted, please contact the testing laboratory for alternative testing options. For additional information, please refer to [email or web address]/faq/YDE361t6 (This link if provided for information/ educational purposes only.) THIS TEST WAS PERFORMED AT: [employer] [address] [place] [address],[place] [address] ESPERANZA CRUZ MD 01/15/2022 10:1 9 AM EDT Mario Alberto Morgan MD HISTORICAL/NON ORDERABLE LABS Fi nal Result CONVERTED LEGACY LABS * Hm Pap Smear (01/15/2022) Historical Provider HEALTH MAINTENANCE Final Result * HEPATITIS C AB W/REFL TO HCV RNA, QN, PCR (11/12/2021 12:09 PM EDT) HEPATITIS C ANTIBODY NON-REACT [facility] NON-REACT [facility] INDEX 0.09 <1.00 [facility] Comment: HCV antibody was non-reactive. There is no laboratory evidence of HCV infection. In most cases, no further action is required. However, if recent HCV exposure is suspected, a test for HCV RNA (test code 21279) is suggested. For additional information please refer to http://education.[employer]/faq/JCV96u9 (This link is being provided for informational/ educational purposes only.) 11/12/2021 12:0 9 PM EDT Zev Sanders MD HISTORICAL/NON ORDERABLE LA BS Final Result Performing Organization Address [facility] de Phone Number [facility] [address] * (ABNORMAL) LIPID PANEL, STANDARD (11/12/2021 [...] LDL-C. Hilario SS et al. JUANA. 2013;310(19): 9119-4274 (http://education.[employer]Sight Systems.[employer] Technologies/faq/MTM704) Non-HDL Cholesterol 129 <130 mg/dL (calc) [facility] Comment: For patients with diabetes plus 1 major ASCVD risk factor, treating to a non-HDL-C goal of <100 mg/dL (LDL-C of <70 mg/dL) is considered a therapeutic option. Triglycerides 120 <150 mg/dL [facility] 11/12/2021 12:0 9 PM EDT Zev Sanders MD LAB BLOOD ORDERABLES Final Result Performing Organization Address [facility] Co de Phone Number [facility] [address] [place] [address], * Mammography Report 1 (10/17/2021 2:30 PM [...] Most Recently Relevant to Health Maintenance Insurance [employer] C3 Care Teams Textile Chemist Relationship Specialty Start Date End Date Zev Sanders MD [address] [place] [address] PCP - General Internal Medicine 11/16/19 Gonzalo Lima 10/04/24 Benedict Lima RN [address] [place], [place] Registered Nurse Family Medicine 12/06/24
--- OUTSIDE RECORDS SUMMARY | 2024-12-13 21:15 | XMS_ITS | Encounter Summary ---
Author Organization [employer] Address [address] [facility] 7[address] [place] [address] Care Team Providers Care Wine Maker Name Role Phone Zev Sanders MD Primary Care Provider [phone] Michelle Quiroz RN Unavailable [phone] Gonzalo Lima Unavailable Benedict Lima RN Unavailable [phone] Encounter Details Date Type Department Care Team (Late st Contact Info) Description 07/21/2023 Orders Only [facility]S [address] [place], [place] [phone] Zev Sanders MD [address] [place], [place] [phone] Social History Tobacco Use Types Packs/Day Years [...] Upcoming Encounters Date Type Department Care Team ([facility] st Contact Info) Description 01/17/2025 3:15 PM EDT Office Visit [facility] P[facility] [address] [place] [address] Zev Sanders MD [address] [place] [address] documented as of this encounter Visit Diagnoses Not on filedocumented in this encounter Care Teams Wine Maker Relationship Specialty Start Date End Date Zev Sanders MD [address] [place] [address] PCP - General Internal Medicine 11/16/19 Michelle Quiroz RN [address] [place] [address] Registered Nurse Family Medicine 10/04/24 12/06/24 Gonzalo Lima 10/04/24 Benedict Lima RN [address] [place] [address] Registered Nurse Family Medicine 12/06/24 documented as of this encounter
--- OUTSIDE RECORDS SUMMARY | 2024-12-13 21:16 | XMS_ITS | Encounter Summary ---
Author Organization [employer] Address [address] [facility] 7t [place] [address] Care Team Providers Care Clinical Cytogenetics Director Name Role Phone Zev Sanders MD Primary Care Provider [phone] Michelle Quiroz RN Unavailable [phone] Gonzalo Lima Unavailable Benedict Lima RN Unavailable [phone] Reason for Visit * Reason Onset Date Comments Appointment Request 11/01/2022 Encounter Details Date Type Department Care Team (Late st Contact Info) Description 11/01/2022 Telephone [facility] MED & PEDS [address] [place], [place] [phone] Zev Sanders MD [address] [place], [place] [phone] Appointment Request Social History Tobacco Use Types [...] PE on 10/24/2022. Please contact pt at [phone] documented in this encounter Plan of Treatment Upcoming Encounters Date Type Department Care Team ([facility] st Contact Info) Description 01/17/2025 3:15 PM EDT Office Visit [facility] MED & PEDS [address] [place] [address] Zev Sanders MD [address] [place] [address] documented as of this encounter Visit Diagnoses Not on filedocumented in this encounter Care Teams Clinical Cytogenetics Director Relationship Specialty Start Date End Date Zev Sanders MD [address] [place] [address] PCP - General Internal Medicine 11/16/19 Michelle Quiroz, BIANCA [address] [place] [address] Registered Nurse Family Medicine 10/04/24 12/06/24 Gonzalo Lima 10/04/24 Benedict Lima, RN [address] [place] [address] Registered Nurse Family Medicine 12/06/24 documented as of this encounter
--- OUTSIDE RECORDS SUMMARY | 2024-12-13 21:16 | XMS_ITS | Encounter Summary ---
Author Organization [employer] Address [address] [facility] 7t [place] [address] Care Team Providers Care Automobile Upholstery Trim Installer Name Role Phone Zev Sanders MD Primary Care Provider [phone] Michelle Quiroz RN Unavailable [phone] Gonzalo Lima Unavailable Benedict Lima RN Unavailable [phone] Encounter Details Date Type Department Care Team ([facility] Contact Info) Description 04/12/2022 Orders Only [facility] [address] [place] [address] Zev Sanders MD [address] [place] [phone] Social History Tobacco Use Types Packs/Day Years [...] Upcoming Encounters Date Type Department Care Team ([facility] Contact Info) Description 01/17/2025 3:15 PM EDT Office Visit [facility] MED & PEDS [address] [place] [address] Zev Sanders MD [address] [place] [address] documented as of this encounter Procedures Procedure [...] (10/21/2022 2:13 PM EDT) Slide Review VERIFIED [facility] 10/21/2022 2:13 PM EDT 10/21/2022 5:23 PM EDT Zev Sanders MD LAB BLOOD ORDERABLES Final Result [facility] [address] [place] [address] [phone] * (ABNORMAL) VENOUS BLOOD GAS (09/04/2022 1:17 PM EDT) VBG pH 7.37 7.32 - 7.43 [facility] Comment:METER #: [id number] additional_comment: Cb murpe VBG PCO2 57 mmHg [facility] Comment:METER #: [id number] additional_comment: Cb murpe VBG PO2 48 mmHg [facility] Comment:METER #: [id number] additional_comment: Cb murpe VBG Base Excess 6.2 mmol/L [facility] Comment:METER #: [id number] additional_comment: Cb murpe VBG HCO3 33(H) 22 - 26 mmol/L [facility] Comment:METER #: [id number] additional_comment: Cb murpe O2 Sat, Lefty 77.0 % [facility] Comment:METER #: [id number] additional_comment: Cb murpe 09/04/2022 1:17 PM EDT 09/04/2022 1:23 PM EDT [facility] External Provider LAB BLO OD ORDERABLES Final Result Performing Organization Address [facility] de Phone Number [facility] [address] [place] [phone] * D Dimer High Sensitivity (09/04/2022 1:10 PM EDT) D Dimer High Sensitivity <150 NG/ML [facility] Comment:D-DIMER HS REFERENCE RANGENote: Our assay reports D-Dimer Units (D- DU).The cut-off value for venous thromboembolic (VTE) disease is230 ng/mL. This value has a very high negative predictivevalue when the patient has a low to moderate clinicalprobability of VTE.The upper limit of normal is 243 ng/mL. 09/04/2022 1:10 PM EDT 09/04/2022 1:18 PM EDT [facility] External Provider LAB BLO OD ORDERABLES Final Result Performing Organization Address [facility] Co de Phone Number [facility] [address] [place] [phone] * B Type Natriuretic Peptide (BNP) (09/04/2022 11:26 AM EDT) B Type Natriuretic Peptide 19 <100 pg/mL [facility] Comment:For those patients w ho are being treated with Natrecor(nesiritide, recombinant BNP), BNP testing should beperformed at least two hours post treatment in order toensure that only endogenous levels of BNP are detected. 09/04/2022 11:2 6 AM EDT 09/04/2022 1:27 PM EDT us [facility] External Provider LAB BLO OD ORDERABLES Final Result [facility] [address] [place] [address] [phone] * (ABNORMAL) Comprehensive Metabolic Panel (09/04/2022 11:26 AM EDT) Pathologist [facility] Sodium 142 135 - 145 mmol/L [facility] Potassium 4.2 3.3 - 5.1 mmol/L [facility] Chloride 102 96 - 108 mmol/L [facility] Carbon Dioxide 34(H) 22 - 29 mmol/L [facility] Anion Gap 10(L) 12 - 20 [facility] Urea Nitrogen (BUN) 15 9 - 16 mg/dL [facility] Creatinine, Serum 0.68 0.5 - 1.4 mg/dL [facility] Creatinine Clr Calc Pharmacy 74.8 [facility] Comment:Provided height and weight: 162.56 cm,49 kg.eGFR (calculated from the MDRD study equation) and eCrCl(calculated from the Cockcroft-Gault equation) are based ondifferent parameters and may not yield comparable results.If eCrCl result is absurd, please check patient'sheight/weight. Estimated Glomerular Filt Rate >60 [facility] Comment:NOTE: For -Am erican individuals, multiply the result by 1.210.Chronic Kidney Disease: Estimated GFR < 60 mL/min/1.23c0Ugeexf Kidney Disease: Estimated GFR < 15 mL/min/1.73m2 Glucose 112 60 - 115 mg/dL [facility] Calcium 9.4 8.4 - 10.2 mg/dL [facility] Bilirubin, Total 0.7 0.0 - 1.0 mg/dL [facility] Aspartate Amino Transferase 21 5 - 31 U/L [facility] Alanine Aminotransferase 17 0 - 31 U/L [facility] Total Protein 6.7 6.5 - 8.0 g/dL [facility] Albumin Level 4.1 3.5 - 5.0 g/dL [facility] Alkaline Phosphatase 73 39 - 117 U/L [facility] 09/04/2022 11:2 6 AM EDT 09/04/2022 11:33 AM EDT [facility] External Provider LAB BLO OD ORDERABLES Final Result [facility] [address] [place] [phone] * COVID-19 ID NOW ([employer]) (09/04/2022 11:26 AM EDT) IDNOW SERIAL# [id number] [facility] COVID-19 TEST Negative Negative [facility] COVID-19 NOTE See Note [facility] Comment: Results are for the identification of SARS-CoV2 RNA. TheSARS-CoV2 RNA is generally detectable in respiratory samplesduring the acute phase of infection. Positive results areindicative of the presence of SARS-CoV-2 RNA; clinicalcorrelation with patient history and other diagnosticinformation is necessary to determine patient infectionstatus. Positive results do not rule out bacterial infectionor co- infection with other viruses.Testing facilities within the [facility] and itsterritories are required to report [...] use by authorized laboratories.Testing performed on the [employer] ID NOW utilizing NAAT. 09/04/2022 11:2 6 AM EDT 09/04/2022 11:33 AM EDT us [facility] Exter nal Provider LAB MOLECULAR DIAGNOSTICS ORDERABLES Final Result [facility] [address] [place] [phone] * (ABNORMAL) CBC auto differential (09/04/2022 11:26 AM EDT) White Blood Count 10.4 4.8 - 10.8 X10*3/uL [facility] Red Blood Count 5.42 4.20 - 5.50 X10*6/uL [facility] Hemoglobin 16.0 12.0 - 16.0 g/dl [facility] Hematocrit 49.3(H) 37.0 - 47.0 % [facility] Mean Corpuscular Volume 91.0 80.0 - 98.0 fL [facility] Mean Corpuscular Hemoglobin 29.5 27.0 - 33.0 pg [facility] Mean Corpuscular HGB Conc 32.5 31.0 - 35.0 g/dl [facility] Red Cell Distribution Width 14.6 11.0 - 16.0 % [facility] Platelet Count 238 160 - 400 X10*3/uL [facility] Mean Platelet Volume 9.5 9.4 - 12.3 fL [facility] Neutrophils Percent Auto 51.2 45 - 73 % [facility] Imm Gran Pct Auto 0.3 0.0 - 0.4 % [facility] Lymphocytes Percent Auto 38.4 20 - 40 % [facility] Monocytes Percent Auto 8.1 2 - 11 % [facility] Eosinophils Percent Auto 1.5 0 - 4 % [facility] Basophils Percent Auto 0.5 0 - 2 % [facility] NRBC Pct Auto 0.0 0.0 - 0.2 /100WBC [facility] Neutrophils Absolute Auto 5.4 2.0 - 8.3 x10*3/uL [facility] Imm Gran Abs Auto 0.03 0.00 - 0.03 X10*3/uL [facility] Lymphocytes Absolute Auto 4.0 1.2 - 4.9 X10*3/uL [facility] Monocytes Absolute Auto 0.8 0.1 - 1.2 X10*3/uL [facility] Eosinophils Absolute Auto 0.2 0.0 - 0.4 X10*3/uL [facility] Basophils Absolute Auto 0.1 0.0 - 0.2 X10*3/uL [facility] NRBC Abs Auto 0.000 0.0 - 0.012 X10*3/uL [facility] 09/04/2022 11:2 6 AM EDT 09/04/2022 11:33 AM EDT us [facility] External Provider LAB BLO OD ORDERABLES Final Result Performing Organization Address City/State/[facility] Co de Phone Number [facility] [address] [place] [phone] documented in this encounter Visit Diagnoses Not on filedocumented in this encounter Care Teams Automobile Upholstery Trim Installer Relationship Specialty Start Date End Date Zev Sanders MD [address] [place] [address] PCP - General Internal Medicine 11/16/19 Michelle Quiroz RN [address] [place] [address] Registered Nurse Family Medicine 10/04/24 12/06/24 Gonzalo Lima 10/04/24 Benedict Lima RN [address] [place] [phone] Registered Nurse Family Medicine 12/06/24 documented as of this encounter
--- OUTSIDE RECORDS SUMMARY | 2024-12-13 21:16 | XMS_ITS | Encounter Summary ---
Author Organization [employer] Address [address] [facility] [address]t [place] [address] Care Team Providers Care Inspector Filter Tip Name Role Phone Zev Sanders MD Primary Care Provider [phone] Michelle Quiroz RN Unavailable [phone] Gonzalo Lima Unavailable Benedict Lima RN Unavailable [phone] Encounter Details Date Type Department Care Team (Late st Contact Info) Description 10/22/2022 Orders Only [facility] MED & PEDS [address] [place] [address] Zev Sanders MD [address] [place], [place] [phone] Gastroenteritis (Primary Dx) Social History Tobacco Use [...] 3:15 PM EDT Office Visit [facility] [address] [place], [place] [phone] Zev Sanders MD [address] [place] [address] documented as of this encounter Visit Diagnoses Diagnosis Gastroenteritis- Primary Other and unspecified noninfectious gastroenteritis and colitis documented in this encounter Care Teams Inspector Filter Tip Relationship Specialty Start Date End Date Zev Sanders MD [address] [place] [address] PCP - General Internal Medicine 11/16/19 Michelle Quiroz RN [address] [place] [address] Registered Nurse Family Medicine 10/04/24 12/06/24 Gonzalo Lima 10/04/24 Benedict Lima, BIANCA [address] [place] [address] Registered Nurse Family Medicine 12/06/24 documented as of this encounter
--- OUTSIDE RECORDS SUMMARY | 2024-12-13 21:16 | XMS_ITS | Clinical Summary ---
Author Organization [facility] Address [address] [place] [phone] Phone Care Team Providers Care Car Sander Name Role Phone Zev Sanders MD Primary Care Provider [phone] Allergies Active Allergy Reactions Criticality Noted Date Comments Penicillins Angioedema High 11/22/2024 Shellfish Containing Products Angioedema High 2024 Medications Ventolin HFA 90 mcg/actuation inhaler Inhale 2 puffs by mouth 4 (four) times a day if needed for wheezing. 5 Active budesonide-for moteroL (SYMBICORT) 160-4.5 mcg/actuation inhaler Inhale 2 puffs by mouth 2 times daily. 2 Active cholecalcifero l (VITAMIN D-3) 50 mcg (2,000 unit) tablet Take 1 tablet (2,000 Units total) by mouth 1 (one) time each day in the morning. 5 Active docusate sodium (COLACE) 100 mg capsule Take 1 capsule (100 mg total) by mouth 2 (two) times a day if needed for constipation. 5 Active esomeprazole (NexIUM) [address] capsule Take 1 capsule (40 mg total) by mouth 1 (one) time each day in the morning. 5 Active ipratropium-al buteroL (DUONEB) 0.5-2.5 mg/3 mL nebulizer solution Take 3 mL by nebulization 4 (four) times a day if needed for wheezing. 3MLS EVERY 6-8 HOURS NEEDED FOR WHEEZING 5 Active lidocaine (LIDODERM) 5 % patch Apply 1 patch topically 1 (one) time each day. 5 Active lisinopriL (PRINIVIL,ZEST RIL) 10 mg tablet Take 1 tablet (10 mg total) by mouth 1 (one) time each day in the morning. 5 Active mirtazapine (REMERON) 45 mg tablet Take 1 tablet (45 mg total) by mouth at bedtime. Active montelukast (SINGULAIR) 10 mg tablet Take 1 tablet (10 mg total) by mouth at bedtime. Active oxyCODONE (ROXICODONE) 5 mg immediate release tablet Take 1 tablet (5 mg total) by mouth 3 times daily as needed. 5 Active predniSONE (DELTASONE) 5 mg tablet Take 1 tablet (5 mg total) by mouth daily. Active QUEtiapine (SEROquel) 100 mg tablet Take 1 tablet (100 mg total) by mouth at bedtime. 5 Active pregabalin (LYRICA) 150 mg capsule Take 1 capsule (150 mg total) by mouth 2 (two) times a day. 5 Active metoprolol tartrate (LOPRESSOR) 25 mg tablet Take 1 tablet (25 mg total) by mouth 2 (two) times a day. 60 each 5 12/26/19 25 Active acetaminophen (TYLENOL) 325 mg tablet Take 2 tablets (650 mg total) by mouth every 6 (six) hours if needed for mild pain, fever - temperature GREATER than 38 C (100.4 F) or headaches for up to 10 days. 30 tablet 5 12/06/19 25 levoFLOXacin (LEVAQUIN) 750 mg tablet Take 1 tablet (750 mg total) by mouth 1 (one) time each day for 5 days. 5 each 5 12/01/19 25 Active Problems Problem Noted Date Diagnosed Date Sepsis due to pneumonia ([facility] V24, [facility] V2 8) 11/22/2024 Encounters Date Type Department Care Team Description 11/22/2024 1:28 PM EDT - 11/25/2024 1:45 PM EDT Hospital Encounter [facility] [address] [place] [phone] Tai Olivier MD Bukalo, Nermina, MD Rasul, Yar M, MD Dyspnea, unspecified type (Primary Dx); Sepsis due to pneumonia ([facility] V24, [facility] V28) Discharge Disposition: Home-Health Care Svc from Last 3 Months Medical History Medical History Date Comments UTI (urinary tract infection) Asthma COPD (chronic obstructive pulmonary disease) ( S/HCC V24, [facility] V28) Anxiety GERD (gastroesophageal reflux disease) Hypertension Depression Social History Tobacco Use Types Packs/Day Years Used Date Smoking Tobacco: Every Day Cigarettes Smokeless Tobacco: Never Tobacco Cessation:Ready to Q uit: Not Asked; Counseling Given: Not Answered Alcohol Use Standard Drinks/Week Comments Never 0 (1 standard drink = 0.6 oz pur e alcohol) Housing Instability Answer Date Recorde d Are you worried that in the next 2 months you may not have stable housing? No 11/22/2024 Food Access & Nutrition Answer Date Rec orded Do you have access to a vari ety of food including fruits and vegetables? Yes 11/22/2024 Access to Healthcare Answer Date Record ed Within the last 3 months, ho w many times did you visit the emergency department for your medical care? 2 11/22/2024 Health Literacy Answer Date Recorded How often do you need to hav e someone help you when you read instructions, pamphlets, or other written material from your doctor or pharmacy? Never 11/22/2024 Caregiver: How often do you need to have someone help you when you read instructions, pamphlets, or other written material from your doctor or pharmacy? Not on file 11/22/2024 Financial Risk Answer Date Recorded How hard is it for you to pa y for the very basics like food, housing, medical care, and air conditioning / heating? Not very hard 11/22/2024 Transportation Answer Date Recorded Has the lack of transportati on kept you from meetings, work, or from getting things needed for daily living? No Has the lack of transportati on kept you from medical appointments or from getting medications? No 11/22/2024 Social Isolation Answer Date Recorded How often do you feel lonely or isolated from th ose around you? Never 11/22/2024 Food Risk Answer Date Recorded Within the past 12 months we worried whether our food would run out before we got money to buy more. Never true 11/22/2024 Within the past 12 months th e food we bought just didn't last and we didn't have money to get more. Never true 11/22/2024 Dependent Care Answer Date Recorded Do you need help finding or paying for care for your loved ones. For example, child protective investigator or elderly care for an older adult? No 11/22/2024 Education Answer Date Recorded Do you think completing more education or training, like finishing a GED, going to college, or learning a trade, would be helpful for you? No 11/22/2024 Employment and Income Answer Date Recor ded During the last four weeks, have you been actively looking for work? No 11/22/2024 Living Situation Answer Date Recorded What is your living situation? 0 11/22/2024 Interpersonal Safety Answer Date Record ed Physical Abuse 11/22/2024 Verbal Abuse 11/22/2024 Comments No Sex and Gender Information Value Date Recorded Sex Assigned at Not on file Legal Sex Female 5:06 AM EST Gender Identity Not on file Sexual Orientation Straight 11/22/2024 6: 14 PM EDT Obstetrics History Last Filed Vital Signs Vital Sign Reading Time Taken Comments Blood Pressure 150/82 11/25/2024 12:41 PM EDT Pulse 66 11/25/2024 12:41 PM EDT Temperature 36.4 C (97.5 F) 11/25/2024 12:41 PM EDT Respiratory Rate 18 11/25/2024 12:41 PM EDT Oxygen Saturation 100% 11/25/2024 12:41 PM EDT Inhaled Oxygen Concentration - - Weight 53.1 kg (117 lb) 11/23/2024 11:25 AM EDT Height 162.6 cm (5' 4.02 ) 11/23/2024 11:25 AM E DT Body Mass Index 20.07 11/23/2024 11:25 AM EDT Plan of Treatment Upcoming Encounters Date Type Department Care Team (Late st Contact Info) Description 02/07/2025 1:30 PM EST Ancillary Procedure [facility] - [facility] [address] [facility] [address] [place] [phone] 02/22/2025 3:00 PM EST Appointment [facility] CT Scan [address] [place] [phone] 03/02/2025 9:45 AM EST Office Visit Thoracic Surgery - [place] [address] [facility] [address] [place] [phone] Epi Hernández, JAYNE [address] [place] [phone] Health Maintenance Due Date Last Done Comments Hepatitis B Vaccines (1 of 3 - 19+ 3-dose series) 1989 Cervical Cancer Screening: Pap Smear 1991 Breast Cancer Screening 10/18/2023 10/17/2021 Depression Screening 03/31/2024 Zoster Vaccines (2 of 2) 06/24/2024 04/29/2024 HIV Screening 11/22/2024 Hepatitis C Screening 11/22/2024 COVID-19 Vaccine (1 - season) 2024 Influenza Vaccine (#1) 2024 , 01/23/2023, 12/19/2017, Additional history exists Social Influencers of Health Screening 11/22/2025 11/22/2024 Hypertension/CHF/CAD Annual BMP Blood Test 11/24/2025 11/24/2024, 11/23/2024, 11/22/2024, Additional history exists Colorectal Cancer Screening: FIT-DNA (Cologuard) 03/10/2026 03/10/2023 DTaP,Tdap,and Td Vaccines (2 - Td or Tdap) 04/29/2026 04/29/2016 Cholesterol Screening (Lipid Panel) 11/12/2026 11/12/2021 Pneumococcal Vaccine: 50+ Years Completed 04/29/2024, 12/19/2017 HIB Vaccines Aged Out No longer eligi ble based on patient's age to complete this topic HPV Vaccines Aged Out No longer eligi ble based on patient's age to complete this topic Hepatitis A Vaccines Aged Out No long er eligible based on patient's age to complete this topic IPV Vaccines Aged Out No longer eligi ble based on patient's age to complete this topic MMR Vaccines Aged Out No longer eligi ble based on patient's age to complete this topic Meningococcal ACWY Vaccine Aged Out N o longer eligible based on patient's age to complete this topic Meningococcal B Vaccine Aged Out No l onger eligible based on patient's age to complete this topic RSV Immunization Patients Under 20 months Aged Out No longer eligible based on patient's age to complete this topic Varicella Vaccines Aged Out No longer eligible based on patient's age to complete this topic Procedures Procedure Name Priority Date/Time Associated Diagnosis Comments ECG OUTSIDE 11/26/2024 ECG ANNOTATED 11/26/2024 CBC WITH AUTO DIFFERENTIAL Timed 11/25/2024 6:35 AM EDT CBC AND DIFFERENTIAL Timed 11/25/2024 6:35 AM EDT SST - GOLD Routine 11/25/2024 6:31 AM EDT EXTRA TUBES Routine 11/25/2024 6:31 AM EDT XR CHEST 1 VIEW STAT 11/24/2024 11:55 PM EDT VENOUS BLOOD GAS STAT 11/24/2024 11:4 2 PM EDT MR BRAIN WO CONTRAST Routine 11/24/2024 4:12 PM EDT OXYGEN THERAPY, ADULT Routine 11/24/2024 2:08 PM EDT OXYGEN THERAPY, ADULT Routine 11/24/2024 2:08 PM EDT OXYGEN THERAPY, ADULT Routine 11/24/2024 2:08 PM EDT CBC WITH AUTO DIFFERENTIAL Timed 11/24/2024 6:12 AM EDT BASIC METABOLIC PANEL Routine 11/24/2024 6:12 AM EDT CBC AND DIFFERENTIAL Timed 11/24/2024 6:12 AM EDT ECG 12-LEAD Routine 11/23/2024 11:07 PM EDT ECG 12-LEAD Routine 11/23/2024 11:07 PM EDT TIGER TOP URINE TUBE Routine 11/23/2024 12:45 PM EDT EXTRA TUBES Routine 11/23/2024 12:45 PM EDT DRUG ABUSE SCREEN 8A PANEL, URINE Routine 11/23/2024 12:45 PM EDT TRANSTHORACIC ECHOCARDIOGRAM (TTE) COMPLETE Routine 11/23/2024 12:25 PM EDT Dyspnea, unspecified type Sepsis due to pneumonia (CMS/HCC V24, CMS/HCC V28) MAGNESIUM Routine 11/23/2024 6:35 AM EDT COMPLETE BLOOD COUNT Routine 11/23/2024 6:35 AM EDT BASIC METABOLIC PANEL Routine 11/23/2024 6:[address] ANGIO CHEST WO AND/OR W CONTRAST STAT 11/23/2024 12:31 AM EDT Dyspnea, unspecified type CT HEAD WO CONTRAST STAT 11/23/2024 1 2:31 AM EDT B-TYPE NATRIURETIC PEPTIDE Routine 11/22/2024 11:58 PM EDT CBC WITH AUTO DIFFERENTIAL STAT 11/22/2024 11:55 PM EDT MAGNESIUM STAT 11/22/2024 11:55 PM EDT TROPONIN I HIGH SENSITIVITY STAT 11/22/2024 11:55 PM EDT CBC AND DIFFERENTIAL STAT 11/22/2024 11:55 PM EDT LACTATE STAT 11/22/2024 11:54 PM EDT POCT GLUCOSE BLOOD Routine 11/22/2024 11 :42 PM EDT BASIC METABOLIC PANEL STAT 11/22/2024 9:58 PM EDT D-DIMER STAT 11/22/2024 9:58 PM EDT ECG 12-LEAD STAT 11/22/2024 9:26 PM EDT ECG 12-LEAD Routine 11/22/2024 2:24 PM EDT CULTURE BLOOD STAT 11/22/2024 2:18 PM EDT CULTURE BLOOD STAT 11/22/2024 2:18 PM EDT FOWLER URINE CULTURE TUBE STAT 11/22/2024 2:17 PM EDT URINALYSIS WITH REFLEX MICROSCOPIC AND CULTURE STAT 11/22/2024 2:17 PM EDT URINALYSIS WITH REFLEX MICROSCOPIC AND CULTURE STAT 11/22/2024 2:17 PM EDT CULTURE URINE STAT 11/22/2024 2:17 PM EDT RESPIRATORY VIRUS PANEL MOLECULAR STUDY STAT 11/22/2024 2:07 PM EDT XR CHEST 1 VIEW STAT 11/22/2024 2:03 PM EDT ECG 12-LEAD STAT 11/22/2024 1:53 PM EDT CBC WITH AUTO DIFFERENTIAL STAT 11/22/2024 1:52 PM EDT LACTATE, WITH REFLEX STAT 11/22/2024 1:52 PM EDT MAGNESIUM STAT 11/22/2024 1:52 PM EDT COMPREHENSIVE METABOLIC PANEL STAT 11/22/2024 1:52 PM EDT CBC AND DIFFERENTIAL STAT 11/22/2024 1:52 PM EDT from Last 3 Months Results * ECG-Outside (11/26/2024) Provider Onbase MD ECG ORDERABLES Final Result * ECG-Annotated (11/26/2024) Provider Onbase MD ECG ORDERABLES Final Result * (ABNORMAL) CBC auto differential (11/25/2024 6:35 AM EDT) Only the most recent of4 resultswithin the time period is included. WBC 6.4 4.8 - 10.8 K/mcL LAB HEMETOLOGY METHOD 11/25/2024 7:07 AM [facility] RBC 3.80 3.80 - 4.80 M/mcL LAB HEMETOLOGY METHOD 11/25/2024 7:07 AM [facility] Hemoglobin 10.5(L) 11.5 - 16.0 g/dL LAB HEMETOLOGY METHOD 11/25/2024 7:07 AM [facility] Hematocrit 33.3(L) 35.0 - 47.0 % LAB HEMETOLOGY METHOD 11/25/2024 7:07 AM [facility] MCV 86.7 79.0 - 98.0 FL LAB HEMETOLOGY METHOD 11/25/2024 7:07 AM [facility] MCH 27.3 27.0 - 32.0 pcg LAB HEMETOLOGY METHOD 11/25/2024 7:07 AM [facility] MCHC 31.5(L) 32.0 - 37.0 g/dL LAB HEMETOLOGY METHOD 11/25/2024 7:07 AM [facility] RDW 14.9 11.0 - 15.0 % LAB HEMETOLOGY METHOD 11/25/2024 7:07 AM [facility] Platelets 213 130 - 400 K/mcL LAB HEMETOLOGY METHOD 11/25/2024 7:07 AM [facility] MPV 10.0 7.0 - 11.0 FL LAB HEMETOLOGY METHOD 11/25/2024 7:07 AM [facility] NRBC 0.0 <1.0 % LAB HEMETOLOGY METHOD 11/25/2024 7:07 AM [facility] NRBC Absolute 0.00 <0.10 K/mcL LAB HEMETOLOGY METHOD 11/25/2024 7:07 AM [facility] Neutrophils Relative 63.8 % LAB HEMETOLOGY METHOD 11/25/2024 7:07 AM [facility] Lymphocytes Relative 18.7 % LAB HEMETOLOGY METHOD 11/25/2024 7:07 AM [facility] Monocytes Relative 12.6 % LAB HEMETOLOGY METHOD 11/25/2024 7:07 AM [facility] Eosinophils Relative 3.7 % LAB HEMETOLOGY METHOD 11/25/2024 7:07 AM [facility] Basophils Relative 0.6 % LAB HEMETOLOGY METHOD 11/25/2024 7:07 AM [facility] Immature Granulocytes Relative 0.6 % LAB HEMETOLOGY METHOD 11/25/2024 7:07 AM [facility] Neutrophils Absolute 4.10 1.50 - 7.00 K/mcL LAB HEMETOLOGY METHOD 11/25/2024 7:07 AM [facility] Lymphocytes Absolute 1.20 1.00 - 5.00 K/mcL LAB HEMETOLOGY METHOD 11/25/2024 7:07 AM [facility] Monocytes Absolute 0.81 0.20 - 1.00 K/mcL LAB HEMETOLOGY METHOD 11/25/2024 7:07 AM EDT [facility] Eosinophils Absolute 0.24 0.00 - 0.50 K/mcL LAB HEMETOLOGY METHOD 11/25/2024 7:07 AM EDT [facility] Basophils Absolute 0.04 0.00 - 0.20 K/mcL LAB HEMETOLOGY METHOD 11/25/2024 7:07 AM EDT [facility] Immature Granulocytes Absolute 0.04(H) 0.00 - 0.03 K/mcL LAB HEMETOLOGY METHOD 11/25/2024 7:07 AM EDT [facility] Blood Venous blood specimen / Unknown Venipuncture / Unknown 11/25/2024 6:35 AM EDT 11/25/2024 6:43 AM EDT us Sahil Maria MD LAB BLOOD ORDERABLES Final Resul t Performing Organization Address City/[facility]/ZIP Co de Phone Number [facility] [address] [place] [address], [place] [phone] * SST tube (11/25/2024 6:31 AM EDT) Extra Tube Hold for add-ons. 11/25/2024 8:01 AM EDT [facility] Comment:Auto resulted. Blood Venous blood specimen / Unknown Venipuncture / Unknown 11/25/2024 6:31 AM EDT 11/25/2024 6:44 AM EDT us Sahil Maria MD LAB BLOOD ORDERABLES Final Resul t Performing Organization Address City/[facility]/ZIP Co de Phone Number [facility] [address] [place] [address], [place] [phone] * XR Chest 1 View (11/24/2024 11:55 PM EDT) Only the most recent of2 resultswithin the time period is included. Anatomical Region Laterality Modality Body Radiographic Joy ging 11/25/2024 9:34 AM EDT Impressions 11/25/2024 9:36 AM EDT Interstitial infiltrate in the right mid and lower lung,, stable since 11/22/2024. This is consistent with bronchitis versus atypical or viral pneumonia. The tiny right pleural effusion seen on the prior study has resolved. Code 62096 -------- FINAL REPORT -------- Dictated By: Bong Mcguire Dictated Date: 11/25/2024 09:34 ET Assigned Physician: Bong Mcguire Reviewed and Electronically Signed By: Bong Mcguire Signed Date: 11/25/2024 09:36 ET Workstation ID: [id number] Transcribed By: Self Edit Transcribed Date: 11/25/2024 09:34 ET Narrative 11/25/2024 9:36 AM EDT HISTORY: The patient is a 54-year-old female with dyspnea. FINDINGS: Semierect AP radiographs portable of the chest are rotated to the right. The bony structures are of normal appearance. The cardiac silhouette is within normal limits allowing for patient rotation. The aortic knob is calcified. The interstitial infiltrate in the right mid and lower lung has not significantly changed since the prior study. The left lung remains clear. The tiny right pleural effusion seen on the prior study is no longer demonstrated. Procedure Note Bong Mcguire MD - 11/25/2024 HISTORY: The patient is a 54-year-old female with dyspnea. FINDINGS: Semierect AP radiographs portable of the chest are rotated tothe right. The bony structures are of normal appearance. The cardiacsilhouette is within normal limits allowing for patient rotation. Theaortic knob is calcified. The interstitial infiltrate in the right mid andlower lung has not significantly changed since the prior study. The leftlung remains clear. The tiny right pleural effusion seen on the priorstudy is no longer demonstrated. IMPRESSION: Interstitial infiltrate in the right mid and lower lung,, stable since11/22/2024. This is consistent with bronchitis versus atypical or viralpneumonia. The tiny right pleural effusion seen on the prior study hasresolved. Code 78898 -------- FINAL REPORT -------- Dictated By: Bong Mcguire Dictated Date: 11/25/2024 09:34 ET Assigned Physician: Bong Mcguire Reviewed and Electronically Signed By: Bong Mcguire Signed Date: 11/25/2024 09:36 ET Workstation ID: [id number] Transcribed By: Self Edit Transcribed Date: 11/25/2024 09:34 ET us Jose GODOY IMG XR PROCEDURES Final Result * (ABNORMAL) Venous blood gas (11/24/2024 11:42 PM EDT) pH, Lefty 7.27(L) 7.32 - 7.42 pH 11/24/2024 11:48 PM EDT [facility] pCO2, Lefty 44 41 - 51 mmHg 11/24/2024 11:48 PM EDT [facility] pO2, Lefty 61(H) 25 - 40 mmHg 11/24/2024 11:48 PM EDT [facility] HCO3, Venous 19.8(L) 22.0 - 26.0 mmol/L 11/24/2024 11:48 PM EDT [facility] O2 Sat, Lefty 94.5 % 11/24/2024 11:48 PM EDT [facility] Base Excess, Lefty -6.5(L) -2.0 - 2.0 mmol/L 11/24/2024 11:48 PM EDT [facility] Blood Venous blood specimen / Unknown Venipuncture / Unknown 11/24/2024 11:42 PM EDT 11/24/2024 11:45 PM EDT us Jose GODOY LAB BLOOD ORDERABLES Final Res ult [facility] [address] [place] [address], * MR Brain wo Contrast (11/24/2024 4:12 PM EDT) Anatomical Region Laterality Modality Head and Neck Magnetic Resonan ce 11/25/2024 8:55 AM EDT Impressions 11/25/2024 8:59 AM EDT Limited study secondary to patient motion. No acute intracranial findings. Nonspecific fluid in the mastoids, left greater than right. -------- FINAL REPORT -------- Dictated By: Louis Polanco Dictated Date: 11/25/2024 08:55 ET Assigned Physician: Louis Polanco Reviewed and Electronically Signed By: Louis Polanco Signed Date: 11/25/2024 08:59 ET Workstation ID: [id number] Transcribed By: Self Edit Transcribed Date: 11/25/2024 08:55 ET Narrative 11/25/2024 8:59 AM EDT PROCEDURE: Noncontrast MRI of the brain. HISTORY: Headache, new or worsening, cancer history (Age 19-49y). COMPARISON: Head CT and CT angiogram 11/23/2024. TECHNIQUE: Multiplanar multisequence MRI of the brain without intravenous contrast administration. FINDINGS: This study is limited by patient motion. BRAIN: No diffusion abnormality. No mass or extra-axial fluid collection. No hydrocephalus. The major intracranial flow voids are preserved. Age commensurate ventricles and sulci. There are a few scattered foci of T2 prolongation in the supratentorial white matter which are nonspecific but most likely sequela of mild chronic microvascular ischemic disease. ORBITS: Normal. SINUSES/MASTOIDS: Hypoplastic frontal sinuses. Extensive fluid in left mastoids. Trace fluid in the right mastoids. CALVARIUM: Normal. OTHER: The visualized skull base soft tissues are normal. Mild degenerative changes of the visualized cervical spine. Procedure Note Louis Polanco MD - 11/25/2024 PROCEDURE: Noncontrast MRI of the brain. HISTORY: Headache, new or worsening, cancer history (Age 19-49y). COMPARISON: Head CT and CT angiogram 11/23/2024. TECHNIQUE: Multiplanar multisequence MRI of the brain without intravenouscontrast administration. FINDINGS: This study is limited by patient motion. BRAIN: No diffusion abnormality. No mass or extra-axial fluid collection.No hydrocephalus. The major intracranial flow voids are preserved. Agecommensurate ventricles and sulci. There are a few scattered foci of [id number] in the supratentorial white matter which are nonspecific butmost likely sequela of mild chronic microvascular ischemic disease. ORBITS: Normal. SINUSES/MASTOIDS: Hypoplastic frontal sinuses. Extensive fluid in leftmastoids. Trace fluid in the right mastoids. CALVARIUM: Normal. OTHER: The visualized skull base soft tissues are normal. Milddegenerative changes of the visualized cervical spine. IMPRESSION: Limited study secondary to patient motion. No acute intracranial findings. Nonspecific fluid in the mastoids, left greater than right. -------- FINAL REPORT -------- Dictated By: Louis Polanco Dictated Date: 11/25/2024 08:55 ET Assigned Physician: Louis Polanco Reviewed and Electronically Signed By: Louis Polanco Signed Date: 11/25/2024 08:59 ET Workstation ID: [id number] Transcribed By: Self Edit Transcribed Date: 11/25/2024 08:55 ET Yari GODOY IMG MRI PROCEDURES Mary Jane christine Result * (ABNORMAL) Basic metabolic panel (11/24/2024 6:12 AM EDT) Only the most recent of3 resultswithin the time period is included. Sodium 143 133 - 145 mmol/L LAB CHEMISTRY METHOD 11/24/2024 7:32 AM [facility] Potassium 3.8 3.5 - 5.5 mmol/L LAB CHEMISTRY METHOD 11/24/2024 7:32 AM [facility] Chloride 113(H) 96 - 110 mmol/L LAB CHEMISTRY METHOD 11/24/2024 7:32 AM [facility] CO2 17(L) 21 - 32 mmol/L LAB CHEMISTRY METHOD 11/24/2024 7:32 AM [facility] Anion Gap 13(H) 3 - 11 LAB CHEMISTRY METHOD 11/24/2024 7:32 AM EDT [facility] Glucose 62(L) 70 - 100 mg/dL LAB CHEMISTRY METHOD 11/24/2024 7:32 AM EDT [facility] BUN 9 5 - 25 mg/dL LAB CHEMISTRY METHOD 11/24/2024 7:32 AM [facility] Creatinine 0.53 0.50 - 1.10 mg/dL LAB CHEMISTRY METHOD 11/24/2024 7:32 AM EDT [facility] eGFR 110 >=60 mL/min/1. 73m2 LAB CHEMISTRY METHOD 11/24/2024 7:32 AM EDT [facility] Comment:Calculation based on the Chronic Kidney Disease Epidemiology Collaboration (CKD-EPI) equation refit without adjustment for race. BUN/Creatinine Ratio 17.0 LAB CHEMISTRY METHOD 11/24/2024 7:32 AM [facility] Calcium 9.0 8.5 - 10.5 mg/dL LAB CHEMISTRY METHOD 11/24/2024 7:32 AM [facility] Blood Venous blood specimen / Unknown Venipuncture / Unknown 11/24/2024 6:12 AM EDT 11/24/2024 6:46 AM EDT us Sahil Maria MD LAB BLOOD ORDERABLES Final Resul t [facility] [address] [place] [address], * ECG 12 lead (11/23/2024 11:07 PM EDT) Only the most recent of5 resultswithin the time period is included. Ventricular Rate ECG 63 BPM GEMUSE Atrial Rate 63 BPM GEMUSE P-R Interval 150 ms GEMUSE QRS Duration 84 ms GEMUSE Q-T Interval 378 ms GEMUSE QTc 386 ms GEMUSE P Wave [place] 79 degrees GEMUSE R [place] 64 degrees GEMUSE T [place] 69 degrees GEMUSE ECG Interpretation Sinus rhythm with marked sinus arrhythmia Otherwise normal ECG When compared with ECG of 23-NOV-2024 23:07, (unconfirmed) SD interval has decreased Vent. rate has decreased BY 69 BPM Non-specific change in ST segment in Inferior leads ST no longer depressed in Anterior leads Nonspecific T wave abnormality no longer evident in Inferior leads T wave inversion no longer evident in Anterior leads SVT has resolved Confirmed by Kristen SANFORD JAMES ([id number]) on 11/24/2024 4:25:05 PM GEMUSE 11/23/2024 11:0 7 PM EDT 11/24/2024 4:25 PM EDT us Sahil Maria MD ECG ORDERABLES Final Result GEMUSE * Sunflower top urine tube (11/23/2024 12:45 PM EDT) Extra Tube Hold for add-ons. 11/23/2024 2:01 PM EDT [facility] Comment:Auto resulted. Urine Urine specimen obtained by clean catch procedure / Unknown 11/23/2024 12:45 PM EDT 11/23/2024 12:56 PM EDT us Sahil Maria MD LAB URINE ORDERABLES Final Resul t Performing Organization Address City/[facility]/ZIP Co de Phone Number [facility] [address] [place] [address], [place] [phone] * (ABNORMAL) Drug abuse screen 8a panel, urine (11/23/2024 12:45 PM EDT) Amphetamine Screen, Ur Negative Negative LAB CHEMISTRY METHOD 1:39 PM EDT [facility] Comment:Certain OTC medicati ons containing ephedrine, phenylephrine, pseudoephedrine and phenylpropanolamine can cause false positive results. Barbiturate Screen, Ur Negative Negative LAB CHEMISTRY METHOD 1:39 PM EDT [facility] Benzodiazepine Screen, Ur Negative Negative LAB CHEMISTRY METHOD 5 1:39 PM EDT [facility] Cocaine Screen, Ur Negative Negative LAB CHEMISTRY METHOD 5 1:39 PM EDT [facility] Opiate Screen, Ur Positive(A ) Negative LAB CHEMISTRY METHOD 5 1:39 PM EDT [facility] Cannabinoid (THC) Screen, Ur Negative Negative LAB CHEMISTRY METHOD 5 1:39 PM EDT [facility] Comment:Specimens from patie nts taking pantoprazole sodium (Protonix) have been shown to produce false positive results. Oxycodone Screen, Ur Positive(A ) Negative LAB CHEMISTRY METHOD 5 1:39 PM EDT [facility] Fentanyl, Ur Negative Negative LAB CHEMISTRY METHOD 5 1:39 PM EDT [facility] Urine Urine specimen obtained by clean catch procedure / Unknown Non-blood Collection / Unknown 11/23/2024 12:45 PM EDT 11/23/2024 12:54 PM EDT Narrative [facility] - 11/23/2024 1:39 PM EDT Assay cutoffs: Amphetamines 1000 ng/mL Barbiturates 200 ng/mL Benzodiazepines 200 ng/mL Cocaine 300 ng/mL Fentanyl 1 ng/mL Opiates 300 ng/mL Oxycodone 100 ng/mL THC 50 ng/mL Semi-quantitative assay for screening purposes only. Unconfirmed screening result should not be used for non-medical purposes. *ALTERNATE METHOD CONFIRMATION DONE UPON REQUEST ONLY* us Sahil Maria MD LAB URINE ORDERABLES Final Resul t [facility] [address] [place] [address], [place] [phone] * (ABNORMAL) TRANSTHORACIC ECHOCARDIOGRAM (TTE) COMPLETE (11/23/2024 12:25 PM EDT) Left Atrium Minor [place] 4.3 cm CV PACS Left Atrium Major [place] 4.9 cm CV PACS LA Area Sys (A2C) 14 cm2 CV PACS LA Area Sys (A4C) 14 cm2 CV PACS LA Volume (BP) 37 mL CV PACS Aortic Sinus Valsalva 3.2 cm CV PACS Ascending Aorta 3.5 cm CV PACS IVSD 0.7 0.6 - 0.9 cm CV PACS LVIDD 4.9 3.8 - 5.2 cm CV PACS LVIDS 3.9(A) 2.2 - 3.5 cm CV PACS LVOT Diameter 2.1 cm CV PACS LVPWD 0.8 0.6 - 0.9 cm CV PACS MV E' Tissue Velocity Lateral 14 cm/s CV PACS MV E' Tissue Velocity Septal 11 cm/s CV PACS LVOT Area 3.5 cm2 CV PACS MV Deceleration Anderson 4.1 m/s2 CV PACS E Wave Deceleration Time 197 119 - 242 ms CV PACS MV PHT 58 ms CV PACS MV Peak A Jesus 0.66 m/s CV PACS MV Peak E Jesus 0.81 m/s CV PACS MV Area PHT 3.8 cm2 CV PACS RV S' 10 cm/s CV PACS TAPSE 22 mm CV PACS TR Peak Velocity 2.42 m/s CV PACS TR Peak Gradient 23 mmHg CV PACS E/E' Ratio Septal 7 CV PACS E/E' Ratio Averaged 7 CV PACS Relative Wall Thickness ratio 0.33 CV PACS FS 20 % CV PACS LV Mass 2D 121 g CV PACS Ascending Aorta Index 2.24 cm/m2 CV PACS LVIDD Index 3.14 cm/m2 CV PACS LVIDS Index 2.50 cm/m2 CV PACS E/A Ratio 1.2 CV PACS E/E' Ratio Lateral 6 CV PACS LA Volume Index (BP) 24 mL/m2 CV PACS LV Mass Index 2D 77 g/m2 CV PACS BSA 1.55 m2 CV PACS Right Ventricular Peak Systolic Pressure 38 mmHg CV PACS Est. RA Pressure 15 mmHg CV PACS Anatomical Region Laterality Modality Ultrasound Narrative 11/23/2024 4:27 PM EDT Left ventricle cavity size is normal. Left ventricular systolic function is in the normal range with an ejection fraction of 55-60%. No regional LV wall motion abnormalities noted. Left ventricle wall thickness is normal. Right ventricle cavity is normal. Right ventricular systolic function is normal. Tricuspid valve leaflets exhibit normal excursion. Mild tricuspid insufficiency with no evidence of pulmonary hypertension Left Ventricle Left ventricle cavity size is normal. Wall thickness is normal. Systolic function is normal with an ejection fraction of 55%. There are no regional LV wall motion abnormalities. There is no diastolic dysfunction. Right Ventricle Right ventricle cavity appears visually normal. Systolic function is normal. Left Atrium Left atrium cavity size is normal. Right Atrium Right atrium cavity is visually normal. IVC/SVC Inferior vena cava is dilated. RA pressures is estimated to be 15 mmHg (IVC diameter >21 mm and decreases <50% during inspiration). Mitral Valve The leaflets are mildly thickened. There is trace regurgitation. There is no evidence of mitral valve stenosis. Tricuspid Valve The leaflets exhibit normal excursion. There is trace regurgitation. The RVSP is estimated at 38 mmHg. Aortic Valve The aortic valve is trileaflet. There is trace to mild regurgitation. There is no evidence of aortic valve stenosis. Pulmonic Valve There is trace pulmonic valve regurgitation. Ascending Aorta The aorta appears normal in size. Pericardium There is no pericardial effusion. Study Details Overall the study quality was technically difficult. Study was difficult due to: poor acoustic windows. Sahil Maria MD CV ECHO PROCEDURES Final Result * (ABNORMAL) Complete blood count (11/23/2024 6:35 AM EDT) WBC 11.3(H) 4.8 - 10.8 K/mcL LAB HEMETOLOGY METHOD 11/23/2024 7:26 AM EDT [facility] RBC 3.80 3.80 - 4.80 M/[facility] HEMETOLOGY METHOD 11/23/2024 7:26 AM EDT [facility] Hemoglobin 10.6(L) 11.5 - 16.0 g/dL LAB HEMETOLOGY METHOD 11/23/2024 7[facility] Hematocrit 35.4 35.0 - 47.0 % LAB HEMETOLOGY METHOD 11/23/2024 7:26 AM EDT [facility] MCV 93.2 79.0 - 98.0 FL LAB HEMETOLOGY METHOD 11/23/2024 7:26 AM EDT [facility] MCH 27.9 27.0 - 32.0 pcg LAB HEMETOLOGY METHOD 11/23/2024 7:26 AM EDT [facility] MCHC 29.9(L) 32.0 - 37.0 g/dL LAB HEMETOLOGY METHOD 11/23/2024 7:26 AM EDT [facility] RDW 15.2(H) 11.0 - 15.0 % LAB HEMETOLOGY METHOD 11/23/2024 7:26 AM EDT [facility] Platelets 190 130 - 400 K/mcL LAB HEMETOLOGY METHOD 11/23/2024 7:26 AM EDT [facility] MPV 10.6 7.0 - 11.0 FL LAB HEMETOLOGY METHOD 11/23/2024 7:26 AM EDT [facility] NRBC 0.0 <1.0 % LAB HEMETOLOGY METHOD 11/23/2024 7:26 AM EDT [facility] NRBC Absolute 0.00 <0.10 K/mcL LAB HEMETOLOGY METHOD 11/23/2024 7:26 AM EDT [facility] Blood Venous blood specimen / Unknown Venipuncture / Unknown 11/23/2024 6:35 AM EDT 11/23/2024 7:05 AM EDT us Tahmina Villegas MD LAB BLOOD ORDERABLES Final Res ult [facility] [address] [place] [address], * Magnesium (11/23/2024 6:35 AM EDT) Only the most recent of3 resultswithin the time period is included. Magnesium 2.1 1.9 - 2.6 mg/dL LAB CHEMISTRY METHOD 11/23/2024 7:53 AM EDT [facility] Blood Venous blood specimen / Unknown Venipuncture / Unknown 11/23/2024 6:35 AM EDT 11/23/2024 7:05 AM EDT us Yari GODOY LAB BLOOD ORDERABLES Fi nal Result [facility] [address] [place] [address], [place] [phone] * CT Angio Chest wo and/or w Contrast (11/23/2024 12:31 AM EDT) Anatomical Region Laterality Modality Body Computed Tomogra phy 11/23/2024 1:21 AM EDT Impressions 11/23/2024 1:21 AM EDT Impression: 1. No pulmonary emboli. 2. No thoracic aortic aneurysm or dissection 3. Severe emphysema. Left lower lobe 1.2 cm spiculated lesion concerning for malignancy. PET scan can be performed for further evaluation. 4. Small right pleural fluid collection with right basilar airspace disease that may represent pneumonia or atelectasis. 5. Pleural thickening in the lateral aspect of the right middle lobe with adjacent pulmonary opacities may represent pneumonia or prior therapeutic changes.. This document has been electronically signed by: Ramona Estrada MD on 11/23/2024 01:21:13 Narrative 11/23/2024 1:21 AM EDT INDICATION: PE suspected, high prob Exam: CTA Chest with IV contrast. Procedure: Contrast was administered. Coronal and sagittal MIP reformats were performed Comparison: None Clinical history: PE suspected high probability. Cancer history Findings: No pulmonary emboli No thoracic aortic aneurysm or dissection. Atherosclerotic calcifications are seen at the aorta and coronary arteries. No hilar or mediastinal adenopathy. No pericardial fluid collection. No pneumothorax. Severe emphysema. Spiculated 1.2 cm lesion in the anterior left lower lobe series 15, image 287 concerning for neoplasm. Small right pleural fluid collection with right basilar airspace opacities that may represent atelectasis or pneumonia. Airspace opacities with pleural thickening in the lateral aspect of the right middle lobe may represent pneumonia or prior therapeutic changes Visualized liver and spleen do not demonstrate any acute process No thoracic spine compression fractures Procedure Note Ramona Estrada MD - 11/23/2024 INDICATION: PE suspected, high prob Exam: CTA Chest with IV contrast. Procedure: Contrast was administered. Coronal and sagittal MIP reformats were performed Comparison: None Clinical history: PE suspected high probability. Cancer history Findings: No pulmonary emboli No thoracic aortic aneurysm or dissection. Atherosclerotic calcifications are seen at the aorta and coronaryarteries. No hilar or mediastinal adenopathy. No pericardial fluid collection. No pneumothorax. Severe emphysema. Spiculated 1.2 cm lesion in the anterior left lower lobe series 15,image 287 concerning for neoplasm. Small right pleural fluid collection with right basilar airspaceopacities that may represent atelectasis or pneumonia. Airspace opacities with pleural thickening in the lateral aspect of the right middle lobe may represent pneumonia or prior therapeutic changes Visualized liver and spleen do not demonstrate any acute process No thoracic spine compression fractures IMPRESSION: Impression: 1. No pulmonary emboli. 2. No thoracic aortic aneurysm or dissection 3. Severe emphysema. Left lower lobe 1.2 cm spiculated lesion concerning for malignancy. PET scan can be performed for further evaluation. 4. Small right pleural fluid collection with right basilar airspace disease that may represent pneumonia or atelectasis. 5. Pleural thickening in the lateral aspect of the right middle lobewith adjacent pulmonary opacities may represent pneumonia or priortherapeutic changes.. This document has been electronically signed by: Ramona Estrada MD on 11/23/2024 01:21:[address] PROCEDURES Final Result * CT Head wo Contrast (11/23/2024 12:31 AM EDT) Anatomical Region Laterality Modality Head and Neck Computed Tomogra phy 11/23/2024 1:22 AM EDT Impressions 11/23/2024 1:22 AM EDT Impression: 1. No acute intracranial hemorrhage. No brain mass identified by CT 2. Soft tissue density in the left mastoid air cells and external auditory canal with erosion of the left mastoid air cells may represent an infectious, inflammatory or neoplastic process. Please correlate with physical exam. This document has been electronically signed by: Ramona Estrada MD on 11/23/2024 01:22:13 Narrative 11/23/2024 1:22 AM EDT INDICATION: Headache, new or worsening, cancer history (Age 19-49y) Exam: CT Brain without contrast Comparison: None Clinical history: Headache new or worsening, cancer history Findings: Evaluation is limited secondary to patient motion artifact.1 No acute intracranial hemorrhage Ventricles are normal in size and position. No intracranial mass No midline shift. No abnormal extra-axial fluid collections. No skull fracture identified. Soft tissue density in the left mastoid air cells and external auditory canal with erosion of the left mastoid air cells may be infectious, inflammatory or neoplastic in nature. Procedure Note Ramona Estrada MD - 11/23/2024 INDICATION: Headache, new or worsening, cancer history (Age 19-49y) Exam: CT Brain without contrast Comparison: None Clinical history: Headache new or worsening, cancer history Findings: Evaluation is limited secondary to patient motion artifact.1 No acute intracranial hemorrhage Ventricles are normal in size and position. No intracranial mass No midline shift. No abnormal extra-axial fluid collections. No skull fracture identified. Soft tissue density in the left mastoid air cells and external auditory canal with erosion of the left mastoid air cells may be infectious, inflammatory or neoplastic in nature. IMPRESSION: Impression: 1. No acute intracranial hemorrhage. No brain mass identified by CT 2. Soft tissue density in the left mastoid air cells and externalauditory canal with erosion of the left mastoid air cells may represent an infectious, inflammatory or neoplastic process. Please correlate with physical exam. This document has been electronically signed by: Ramona Estrada MD on 11/23/2024 01:22:13 Yari GODOY [facility] CT PROCEDURES Final Result * (ABNORMAL) B-type natriuretic peptide (11/22/2024 11:58 PM EDT) BNP 109(H) <=100 pcg/mL LAB CHEMISTRY METHOD 11/23/2024 12:58 AM EDT [facility] Blood Venous blood specimen / Unknown Venipuncture / Unknown 11/22/2024 11:58 PM EDT 11/23/2024 12:00 AM EDT Emily GODOY LAB BLOOD ORDERABLES Final Re sult Performing Organization Address [facility] de Phone Number [facility] [address] [place] [address], [place] [phone] * Troponin I high sensitivity (11/22/2024 11:55 PM EDT) [facility] High Sensitivity Troponin I 8 <=54 ng/L LAB CHEMISTRY METHOD 11/23/2024 12:31 AM EDT [facility] Blood Venous blood specimen / Unknown Venipuncture / Unknown 11/22/2024 11:55 PM EDT 11/22/2024 11:59 PM EDT Narrative [facility] - 11/23/2024 12:31 AM EDT High levels of biotin in samples may falsely decrease hsTroponin values. Use caution when interpreting hsTroponin results in patients taking biotin who exhibit renal impairment (eGFR <60) or in patients taking more than 20 mg/day of biotin. Emily GODOY LAB BLOOD ORDERABLES Final Re sult Performing Organization Address [facility] Co de Phone Number [facility] [address] [place] [address], [place] [phone] * Lactate (11/22/2024 11:54 PM EDT) [facility] Lactate 0.5 0.4 - 2.0 mmol/L LAB CHEMISTRY METHOD 11/23/2024 12:31 AM EDT [facility] Blood Venous blood specimen / Unknown Venipuncture / Unknown 11/22/2024 11:54 PM EDT 11/23/2024 12:00 AM EDT us Emily GODOY LAB BLOOD ORDERABLES Final Re sult [facility] [address] [place] [address], [place] [phone] * POCT Glucose, blood (11/22/2024 11:42 PM EDT) [facility] Glucose POCT 97 70 - 100 mg/dL 11/22/2024 11:43 PM EDT [facility] Blood Capillary blood specimen / Unknown 11/22/2024 11:42 PM EDT 11/22/2024 11:44 PM EDT us Tahmina Villegas MD LAB POINT OF CARE TE ST DOCKED DEVICE UNSOLICITED RESULTS Final Result Performing Organization Address [facility]/ZIP Co de Phone Number [facility] [address] [place] [address], [place] [phone] * (ABNORMAL) D-Dimer (11/22/2024 9:58 PM EDT) [facility] D-Dimer, Quant (D-DU) 781(H) <=230 ng/mL DDU LAB COAGULATION METHOD 11/22/2024 10:35 PM EDT [facility] Blood Venous blood specimen / Unknown Venipuncture / Unknown 11/22/2024 9:58 PM EDT 11/22/2024 10:19 PM EDT Narrative [facility] - 11/22/2024 10:35 PM EDT D-Dimer <230 ng/mL (D-Dimer units) is the threshold for exclusion of DVT/PE. D-Dimer may be elevated in: Critically ill, severely infected, trauma patients, DIC, acute CVA, acute IL, unstable angina, AF, old age, , and smoking. D-Dimer may be decreased with: Initiation of heparin therapy and oral anticoagulants. Yari GODOY LAB BLOOD ORDERABLES Fi nal Result Performing Organization Address [facility]/ZIP Co de Phone Number [facility] [address] [place] [address], [place] [phone] * Blood culture (11/22/2024 2:18 PM EDT) Only the most recent of2 resultswithin the time period is included. [facility] Culture, Blood No growth at 5 days LAB MICROBIOLOGY METHOD 11/27/2024 3:01 PM EDT [facility] Blood Venous blood specimen / Unknown Venipuncture / Unknown 11/22/2024 2:18 PM EDT 11/22/2024 2:23 PM EDT Tai Olivier MD LAB MICROBIOLOGY - GENERAL ORDERABLES Final Result Performing Organization Address [facility]/ZIP Co de Phone Number [facility] [address] [place] [address], [place] [phone] * (ABNORMAL) Urinalysis with reflex microscopic and culture (11/22/2024 2:17 PM EDT) [facility] Specific [place] Urine 1.014 1.003 - 1.030 LAB URINALYSIS - AUTOMATED METHOD 11/22/2024 2:53 PM EDT [facility] pH, Urine 5.5 5.0 - 8.0 pH LAB URINALYSIS - AUTOMATED METHOD 11/22/2024 2:53 PM EDT [facility] Leukocytes, Urine Trace(A) Negative LAB URINALYSIS - AUTOMATED METHOD 11/22/2024 2:53 PM EDT [facility] Nitrite, Urine Negative Negative LAB URINALYSIS - AUTOMATED METHOD 11/22/2024 2:53 PM EDT [facility] Protein, Urine 30(A) <=Trace mg/dL LAB URINALYSIS - AUTOMATED METHOD 11/22/2024 2:53 PM [facility] Glucose, Urine Negative Negative mg/dL LAB URINALYSIS - AUTOMATED METHOD 11/22/2024 2:53 PM [facility] Ketones, Urine Trace(A) Negative mg/dL LAB URINALYSIS - AUTOMATED METHOD 11/22/2024 2:53 PM [facility] Urobilinogen , Urine 1.0 0.2 - 1.0 mg/dL LAB URINALYSIS - AUTOMATED METHOD 11/22/2024 2:53 PM [facility] Bilirubin, Urine Negative Negative LAB URINALYSIS - AUTOMATED METHOD 11/22/2024 2:53 PM [facility] Blood, Urine Negative Negative LAB URINALYSIS - AUTOMATED METHOD 11/22/2024 2:53 PM [facility] RBC, Urine 4.3(H) 0 - 4 /HPF LAB URINALYSIS - AUTOMATED METHOD 11/22/2024 2:53 PM [facility] WBC, Urine 17.7(H) 0 - 4 /HPF LAB URINALYSIS - AUTOMATED METHOD 11/22/2024 2:53 PM [facility] Squamous Epithelial, Urine >100(H) 0 - 60 /LPF LAB URINALYSIS - AUTOMATED METHOD 11/22/2024 2:53 PM [facility] Bacteria, Urine Negative Negative /HPF LAB URINALYSIS - AUTOMATED METHOD 11/22/2024 2:53 PM [facility] Hyaline Casts, Urine 3.0 0 - 3 /LPF LAB URINALYSIS - AUTOMATED METHOD 11/22/2024 2:53 PM [facility] Other Casts, Urine Rare Coarse Granular casts. /LPF 11/22/2024 2:53 PM [facility] Urine Urine specimen obtained by clean catch procedure / Unknown Non-blood Collection / Unknown 11/22/2024 2:17 PM EDT 11/22/2024 2:25 PM EDT Tai Olivier MD LAB URINE ORDERABLES Final Result Performing Organization Address [facility]/ZIP Co de Phone Number [facility] [address] [place] [address], [place] [phone] * Fowler urine culture tube (11/22/2024 2:17 PM EDT) Pathologist [facility] Extra Tube Hold for add-ons. 11/22/2024 4:01 PM EDT [facility] Comment:Auto resulted. Urine Urine specimen obtained by clean catch procedure / Unknown Non-blood Collection / Unknown 11/22/2024 2:17 PM EDT 11/22/2024 2:26 PM EDT Tai Olivier MD LAB URINE ORDERABLES Final Result Performing Organization Address [facility] Co de Phone Number [facility] [address] [place] [address], [place] [phone] * Culture urine (11/22/2024 2:17 PM EDT) Pathologist [facility] Culture, Urine 10,000-49,000 CFU/mL Mixed bacterial morphotypes present suggestive of possible contamination during collection. Suggest appropriate recollection if clinically indicated. 11/23/2024 9:32 AM EDT [facility] Urine Urine specimen obtained by clean catch procedure / Unknown Non-blood Collection / Unknown 11/22/2024 2:17 PM EDT 11/22/2024 2:53 PM EDT us Tai Olivier MD LAB MICROBIOLOGY - GENERAL ORDERABLES Final Result Performing Organization Address [facility]/ZIP Co de Phone Number [facility] [address] [place] [address], [place] [phone] * Respiratory virus panel molecular study (11/22/2024 2:07 PM EDT) [facility] Adenovirus Detection by PCR Not Detected Not Detected LAB MICROBIOLOGY METHOD 11/22/2024 3:19 PM EDT [facility] Influenza A PCR Not Detected Not Detected LAB MICROBIOLOGY METHOD 11/22/2024 3:19 PM EDT [facility] Influenza B PCR Not Detected Not Detected LAB MICROBIOLOGY METHOD 11/22/2024 3:19 PM EDT [facility] Coronavirus 229E Not Detected Not Detected LAB MICROBIOLOGY METHOD 11/22/2024 3:19 PM EDT [facility] Coronavirus HKU1 Not Detected Not Detected LAB MICROBIOLOGY METHOD 11/22/2024 3:19 PM EDT [facility] Coronavirus OC43 Not Detected Not Detected LAB MICROBIOLOGY METHOD 11/22/2024 3:19 PM EDT [facility] Coronavirus NL63 Not Detected Not Detected LAB MICROBIOLOGY METHOD 11/22/2024 3:19 PM EDT [facility] Parainfluenza Virus 1 Not Detected Not Detected LAB MICROBIOLOGY METHOD 11/22/2024 3:19 PM EDT [facility] Parainfluenza Virus 2 Not Detected Not Detected LAB MICROBIOLOGY METHOD 11/22/2024 3:19 PM EDT [facility] Parainfluenza Virus 3 Not Detected Not Detected LAB MICROBIOLOGY METHOD 11/22/2024 3:19 PM EDT [facility] Parainfluenza Virus 4 Not Detected Not Detected LAB MICROBIOLOGY METHOD 11/22/2024 3:19 PM EDT [facility] RSV PCR Not Detected Not Detected LAB MICROBIOLOGY METHOD 11/22/2024 3:19 PM EDT [facility] Human Metapneumovirus A and B Not Detected Not Detected LAB MICROBIOLOGY METHOD 11/22/2024 3:19 PM EDT [facility] Rhinovirus/Entero virus Not Detected Not Detected LAB MICROBIOLOGY METHOD 11/22/2024 3:19 PM EDT [facility] Bordetella pertussis Not Detected Not Detected LAB MICROBIOLOGY METHOD 11/22/2024 3:19 PM EDT [facility] Bordetella parapertussis Not Detected Not Detected LAB MICROBIOLOGY METHOD 11/22/2024 3:19 PM EDT [facility] Mycoplasma pneumo by PCR Not Detected Not Detected LAB MICROBIOLOGY METHOD 11/22/2024 3:19 PM EDT [facility] Chlamydia pneumoniae Not Detected Not Detected LAB MICROBIOLOGY METHOD 11/22/2024 3:19 PM EDT [facility] SARS COV-2 Not Detected Not Detected LAB MICROBIOLOGY METHOD 11/22/2024 3:19 PM EDT [facility] Swab Both anterior nares / Unknown Non-blood Collection / Unknown 11/22/2024 2:07 PM EDT 11/22/2024 2:24 PM EDT Narrative [facility] - 11/22/2024 3:19 PM EDT Testing was performed using the TixAlert Respiratory Pathogen PCR Assay. All results must be correlated with the clinical findings. Results should not be used as the sole basis for diagnosis. False Negative results may occur from the presence of sequence variants in the region targeted by the assay or the presence of inhibitors. Results may be affected by concurrent antiviral/antimicrobial therapy or levels of organisms that are below the limit of detection. us Tai Olivier MD LAB MICROBIOLOGY - GENERAL ORDERABLES Final Result [facility] [address] [place] [address], * Lactate, with Reflex (11/22/2024 1:52 PM EDT) LACTIC ACID 0.6 0.4 - 2.0 mmol/L LAB CHEMISTRY METHOD 11/22/2024 2:53 PM EDT [facility] Blood Venous blood specimen / Unknown Venipuncture / Unknown 11/22/2024 1:52 PM EDT 11/22/2024 2:02 PM EDT us Tai Olivier MD LAB BLOOD ORDERABLES Final Result [facility] [address] [place] [address], [place] [phone] * (ABNORMAL) Comprehensive Metabolic Panel (CMP) (11/22/2024 1:52 PM EDT) Sodium 137 133 - 145 mmol/L LAB CHEMISTRY METHOD 11/22/2024 2:46 PM EDT [facility] Potassium 3.6 3.5 - 5.5 mmol/L LAB CHEMISTRY METHOD 11/22/2024 2:46 PM EDT [facility] Chloride 106 96 - 110 mmol/L LAB CHEMISTRY METHOD 11/22/2024 2:46 PM EDT [facility] CO2 27 21 - 32 mmol/L LAB CHEMISTRY METHOD 11/22/2024 2:46 PM EDT [facility] Anion Gap 4 3 - 11 LAB CHEMISTRY METHOD 11/22/2024 2:46 PM T [facility] Glucose 89 70 - 100 mg/dL LAB CHEMISTRY METHOD 11/22/2024 2:46 PM T [facility] BUN 26(H) 5 - 25 mg/dL LAB CHEMISTRY METHOD 11/22/2024 2:46 PM EDT [facility] Creatinine 1.78(H) 0.50 - 1.10 mg/dL LAB CHEMISTRY METHOD 11/22/2024 2:46 PM T [facility] eGFR 34(L) >=60 mL/min/1. 73m2 LAB CHEMISTRY METHOD 11/22/2024 2:46 PM T [facility] Comment:Calculation based on the Chronic Kidney Disease Epidemiology Collaboration (CKD-EPI) equation refit without adjustment for race. BUN/Creatinine Ratio 14.6 LAB CHEMISTRY METHOD 11/22/2024 2:46 PM EDT [facility] Calcium 7.9(L) 8.5 - 10.5 mg/dL LAB CHEMISTRY METHOD 11/22/2024 2:46 PM T [facility] AST (SGOT) 13 10 - 42 unit/L LAB CHEMISTRY METHOD 11/22/2024 2:46 PM [facility] ALT (SGPT) 7(L) 10 - 60 unit/L LAB CHEMISTRY METHOD 11/22/2024 2:46 PM EDT [facility] Alkaline Phosphatase 77 42 - 121 unit/L LAB CHEMISTRY METHOD 11/22/2024 2:46 PM T [facility] Total Protein 5.2(L) 6.0 - 8.0 g/dL LAB CHEMISTRY METHOD 11/22/2024 2:46 PM [facility] Albumin 2.5(L) 3.2 - 5.0 g/dL LAB CHEMISTRY METHOD 11/22/2024 2:46 PM T [facility] Total Bilirubin 0.6 0.0 - 1.4 mg/dL LAB CHEMISTRY METHOD 11/22/2024 2:46 PM T [facility] Blood Venous blood specimen / Unknown Venipuncture / Unknown 11/22/2024 1:52 PM EDT 11/22/2024 2:07 PM EDT us Tai Olivier MD LAB BLOOD ORDERABLES Final Result [facility] [address] [place] [address], from Last 3 Months Insurance [place] Advance Directives * Full Code - Default (Latest Code Status on File) Date Activated Date Inactivated Comments 11/22/2024 3:26 PM 11/25/2024 3:55 PM This is orde r is used when code status has not been discussed with the patient, or code status is otherwise unknown/unconfirmed To update the patient's code status, place a code status order. Do not modify or discontinue any currently active code status orders. Care Teams Car Sander Relationship Specialty Start Date End Date Zev Sanders MD [address] [place] [address] PCP - General Internal Medicine 10/27/19
--- OUTSIDE RECORDS SUMMARY | 2024-12-13 21:16 | XMS_ITS | Encounter Summary ---
Author Organization [employer] Address [address] [facility] 7 [place] [address] Care Team Providers Care Patrol Sergeant Sheriff'[employer] Office Name Role Phone Zev Sanders MD Primary Care Provider [phone] Michelle Quiroz RN Unavailable [phone] Gonzalo Lima Unavailable Benedict Lima RN Unavailable [phone] Reason for Visit * Reason Comments Med Refill Encounter Details Date Type Department Care Team (Late Contact Info) Description 11/05/2022 Refill [facility] [address] [place], [place] [phone] Zev Sanders MD [address] [place] [address] Chronic low back pain, unspecified back pain [...] Visit [facility] [address] [place] [address] Zev Sanders MD [address] [place] [address] documented as of this encounter Visit Diagnoses Diagnosis Chronic low back pain, unspecified back pain laterality, unspecified whether sciatica present documented in this encounter Care Teams Patrol Sergeant Sheriff[employer] Relationship Specialty Start Date End Date Zev Sanders MD [address] [place] [address] PCP - General Internal Medicine 11/16/19 Michelle Quiroz RN [address] [place] [address] Registered Nurse Family Medicine 10/04/24 12/06/24 Gonzalo Lima 10/04/24 Benedict Lima, BIANCA [address] [place] [address] Registered Nurse Family Medicine 12/06/24 documented as of this encounter
== END 2024-12-13 16:27 | disposition home or self-care (01) ==
LOC: HO.HPS 16:06
PROVIDERS: PCP Internal Medicine; Visit Provider Internal Medicine
DX: J44.1 Chronic obstructive pulmonary disease with (acute) exacerbation (principal); J96.91 Respiratory failure, unspecified with hypoxia; Z78.9 Other specified health status; R91.8 Other nonspecific abnormal finding of lung field
CPT/HCPCS: 99214

== ENCOUNTER → 2024-12-13 16:06 | Outpatient (BNVA) | payer MEDICAID, SELFPAY | PROVIDERS: PCP Internal Medicine; Visit Provider Internal Medicine | DX: Z09 Encounter for follow-up examination after completed treatment for conditions other than malignant neoplasm (principal); J44.1 Chronic obstructive pulmonary disease with (acute) exacerbation; J96.91 Respiratory failure, unspecified with hypoxia; Z78.9 Other specified health status; R91.8 Other nonspecific abnormal finding of lung field | CPT/HCPCS: 99212 ==

== ENCOUNTER 2024-12-26 17:07 | Emergency (ER) | payer MEDICAID, SELFPAY ==
[2024-12-26 17:14] VITALS: BP 137/71; PULSE 85; RESP 18; TEMP 36.3; O2SAT 90; BMI 19.7
--- NOTE | 2024-12-26 17:21 | ED.RECABL ---
HPI - Recheck/Abnormal Lab/Rx General Chief Complaint: Recheck/Abnormal Lab/Rx Stated Complaint: increased BP Time Seen by Provider: 12/26/24 17:23 Source: patient Mode of arrival: ambulatory Limitations: no limitations History of Present Illness ED Provider: Sanam Archer APRN HPI narrative: 54 yo female with Past medical history significant for chronic respiratory failure on 2 L of oxygen at rest 3 L with ambulation., COPD, pulmonary nodules, chromic pain syndrome, varicose veins, spondylosis, hypertension, Hsieh, GERD, and asthma on chronic pain management with opiates presents the ER with complaints of abnormal blood pressure at home. Patient reports that she checks her blood pressure frequently throughout the day and she was noted to have a low blood pressure at home. She was asymptomatic at that time. She came to the emergency room to have her blood pressure checked and be provided with some reassurance. She has no complaints for me at this time. Related Data Home Medications ?Medication ?Instructions ?Recorded ?Confirmed mirtazapine 45 mg tablet 45 mg PO BEDTIME 03/27/20 12/13/24 quetiapine 100 mg tablet (Seroquel) 100 mg PO BEDTIME 03/27/20 12/13/24 lisinopril 10 mg tablet 10 mg PO DAILY 09/29/20 12/13/24 pregabalin 150 mg capsule 150 mg PO BID 11/13/20 12/13/24 esomeprazole magnesium 40 mg 40 mg PO DAILY@0630 10/16/21 12/13/24 capsule,delayed release cholecalciferol (vitamin D3) 50 50 mcg PO DAILY 12/19/21 12/13/24 mcg (2,000 unit) tablet tiotropium bromide 2.5 2 puff inhalation DAILY 06/30/24 12/13/24 mcg/actuation mist for inhalation (Spiriva Respimat) docusate sodium 100 mg capsule 100 mg PO BID PRN constipation 11/11/24 12/13/24 Previous Rx's ?Medication ?Instructions ?Recorded prednisone 5 mg tablet 5 mg PO DAILY #30 tabs 05/31/24 Held on 09/27/24. Instructions: Resume on 10/14/24. montelukast 10 mg tablet 10 mg PO BEDTIME #30 tabs 08/30/24 prednisone 5 mg tablet 5 mg PO DAILY severe COPD 30 days 10/07/24 #30 tabs naloxone 4 mg/actuation nasal 4 mg intranasal Q2M PRN opioid 10/10/24 spray (Narcan) overdose #2 ea lidocaine 5 % topical patch 1 patch topical DAILY pain #30 ea 11/04/24 ipratropium 0.5 mg-albuterol 3 mg 3 ml inhalation Q6H PRN for 11/30/24 (2.5 mg base)/3 mL nebulization wheezing #180 mL soln albuterol sulfate 90 mcg/actuation 2 puff inhalation QID PRN for 12/07/24 aerosol inhaler (Ventolin HFA) wheezing #18 grams budesonide-formoterol HFA 160 2 puff inhalation BID #10.2 grams 12/09/24 mcg-4.5 mcg/actuation aerosol inhaler (Symbicort) oxycodone 5 mg tablet 5 mg PO TID PRN pain 30 days #90 12/09/24 tabs Allergies Allergy/AdvReac Type Severity Reaction Status Date / Time Penicillins (PENICILLINS) Allergy Severe RASH Verified 12/26/24 17:19 seafood Allergy Rash Verified 12/26/24 17:19 Review of Systems Review of Systems: Yes all other systems are reviewed and are negative Constitutional: Constitutional: Reports no additional constitutional complaints, Denies body ache(s), Denies chills, Denies fever(s), Denies headache(s) and Denies weakness Eyes: Eyes: Reports no additional eye complaints and Denies change in vision ENT: Reports system reviewed and no additional complaints, except as documented, Denies dizziness, Denies headache(s), Denies nasal congestion, Denies nasal discharge and Denies neck pain Cardiovascular: Cardiovascular: Reports no additional cardiovascular complaints, Denies chest pain, Denies leg edema and Denies dyspnea Respiratory: Respiratory: Reports no additional respiratory complaints, Denies cough and Denies dyspnea Gastrointestinal: Gastrointestinal: Reports no additional gastrointestinal complaints, Denies abdominal pain, Denies diarrhea, Denies nausea and Denies vomiting Genitourinary: Genitourinary: Reports no additional female genitourinary complaints and Denies urinary incontinence Musculoskeletal: Musculoskeletal: Reports no additional musculoskeletal complaints, Denies back pain, Denies arthralgias, Denies joint swelling, Denies neck pain, Denies numbness and Denies tingling Integumentary/Breasts: Skin/Breast: Reports system reviewed and no additional complaints, except as docu and Denies rash Neurologic: Reports system reviewed and no additional complaints, except as documented, Denies Abnormal speech present, Denies dizziness, Denies headache(s), Denies numbness, Denies tingling and Denies weakness PMFSH Past Medical History Attestation statement: The following information was validated with the patient. Source: old records reviewed and nursing notes reviewed Medical History Current non-smoker but past smoking history unknown Respiratory failure with hypoxia COPD exacerbation Pre-op examination History of OCD (obsessive compulsive disorder) History of panic attacks Anxiety and depression Radiculopathy, lumbar region HTN (hypertension) Sacroiliitis COPD (chronic obstructive pulmonary disease) Asthma Allergic rhinitis Disc degeneration, lumbar Surgical History History of surgery History of appendectomy Hx of tonsillectomy Status post excision of lipoma History of tubal ligation Hx of excision of mass History of surgery History of laparoscopic cholecystectomy History of esophagogastroduodenoscopy (EGD) History of umbilical hernia repair History of incision and drainage Family History Family History Family/Other Cervical cancer Family/Other Stomach cancer Social History Social History Household Members: Significant Other and Family Household Members Other:: grandson Housing: House Do you presently have visiting nurse or other home services: No Alcohol intake: never Comment: Significant other bedside Patient Tobacco Use Status: Former Tobacco user Tobacco use type: Cigarette Substance Use Type: Marijuana Advance Directives Date on File: 04/09/24 service: No Current occupational status: unemployed Sexual orientation: Straight/Heterosexual Gender identity: Female Physical Exam Vital Signs: Vital Signs: Last Vital Signs Temp 97.3 F 12/26/24 17:14 Pulse 85 12/26/24 17:14 Resp 18 12/26/24 17:14 BP 137/71 12/26/24 17:14 Pulse Ox 90 L 12/26/24 17:14 O2 Del Method Room Air 12/26/24 17:14 Oxygen Flow Rate 2 12/26/24 17:14 BMI result Body Mass Index 19.7 Const: General: cooperative, healthy appearing, comfortable and no acute distress Orientation/consciousness: patient oriented x3 Limitations: no limitations HEENT: Head: Yes normal to inspection Ears: hearing grossly normal bilaterally General nose exam: Normal external nose present Face and sinus: Yes normal facial exam Mouth: Normal oral and palatal mucosa present Throat: Yes posterior oropharynx normal Eyes: General: appearance normal, both eyes and all related structures Pupils: Equal, round and reactive pupils present Neck: Neck: Yes normal visual inspection Chest: Chest palpation & inspection: normal inspection of the chest Resp: Effort & Inspection: normal respiratory effort Auscultation: clear to auscultation bilaterally Cardio: Rate: regular rate Rhythm: regular rhythm Peripheral pulses: Peripheral pulses 2+ throughout GI: Inspection: Yes normal to inspection Palpation (GI): Soft to palpation and nontender Auscultation: normal bowel sounds Back/Spine/Pelvis: Thoracic/Lumbar Spine: thoracic and lumbar spine normal to inspection Skin: General skin exam: no rashes or lesions noted Neuro: General: patient oriented x3, no focal motor deficits and normal sensation to monofilament Cranial nerves: Yes Equal, round and reactive pupils present Cognition (Neuro): normal cognition Speech: No Abnormal speech present Gait exam (Neuro): Normal gait present Motor exam (neuro): 5/5 motor strength present throughout Extrem: General: Yes normal to inspection Medical Decision Making Medical Decision Making MDM Narrative: 54 yo female with Past medical history significant for chronic respiratory failure on 2 L of oxygen at rest 3 L with ambulation., COPD, pulmonary nodules, chromic pain syndrome, varicose veins, spondylosis, hypertension, Hsieh, GERD, and asthma on chronic pain management with opiates presents the ER with complaints of abnormal blood pressure at home. Patient reports that she checks her blood pressure frequently throughout the day and she was noted to have a low blood pressure at home. She was asymptomatic at that time. She came to the emergency room to have her blood pressure checked and be provided with some reassurance. She has no complaints for me at this time. Blood pressure is normal here I am not sure why the patient had a low blood pressure earlier. I did offer further evaluation with lab work and an EKG but she declined this and would like to go home and continue to monitor her blood pressures return for any worsening symptoms. Reviewed worrisome signs and symptoms of when to return to the emergency room. Comfortable plan for discharge home Differential Diagnosis Differential Diagnoses: The differential diagnosis associated with the presentation includes Admission/Observation Consideration of admission/observation: Escalation of care including admission/observation considered Independent Historian Clinical information obtained from an independent historian. History obtained from or confirmed by: Spouse Discharge Plan Discharge Clinical Impression: Normal exam Patient Disposition: Home, Self-Care Instructions: Normal Exam (ED) Additional Instructions: Continue your home medication Return to the emergency room for any concerns or questions Prescriptions: No Action prednisone 5 mg tablet 5 mg PO DAILY Qty: 30 3RF montelukast 10 mg tablet 10 mg PO BEDTIME Qty: 30 3RF naloxone [Narcan] 4 mg/actuation spray,non-aerosol 4 mg intranasal Q2M PRN (Reason: opioid overdose) Qty: 2 0RF Rx Instructions: spray 1 dose into ONE nostril; alternate nostrils w each dose until help arrives ipratropium-albuterol 0.5 mg-3 mg(2.5 mg base)/3 mL solution for nebulization 3 ml inhalation Q6H PRN (Reason: for wheezing) Qty: 180 0RF albuterol sulfate [Ventolin HFA] 90 mcg/actuation HFA aerosol inhaler 2 puff inhalation QID PRN (Reason: for wheezing) Qty: 18 3RF budesonide-formoterol [Symbicort] 160-4.5 mcg/actuation HFA aerosol inhaler 2 puff inhalation BID Qty: 10.2 0RF lisinopril 10 mg tablet 10 mg PO DAILY pregabalin 150 mg Capsule 150 mg PO BID Spiriva Respimat 2.5 mcg/actuation mist 2 puff inhalation DAILY lidocaine 5 % adhesive patch,medicated 1 patch topical DAILY Qty: 30 0RF Rx Instructions: leave on most painful area for up to 12 hrs quetiapine [Seroquel] 100 mg tablet 100 mg PO BEDTIME mirtazapine 45 mg tablet 45 mg PO BEDTIME esomeprazole magnesium 40 mg capsule,delayed release(DR/EC) 40 mg PO DAILY@0630 cholecalciferol (vitamin D3) 50 mcg (2,000 unit) tablet 50 mcg PO DAILY oxycodone 5 mg tablet 5 mg PO TID PRN (Reason: pain) 30 Days Qty: 90 0RF Rx Instructions: Partial Fill upon patient request. prednisone 5 mg tablet 5 mg PO DAILY 30 Days Qty: 30 5RF docusate sodium 100 mg capsule 100 mg PO BID PRN (Reason: constipation) Referrals: [facility] [Primary Care Provider, Medical] Print Language: Latvian
[2024-12-26 17:28] VITALS: BP 137/71; PULSE 85; RESP 18; TEMP 36.3; O2SAT 90
--- OUTSIDE RECORDS SUMMARY | 2024-12-26 17:28 | XMS_ITS | Encounter Summary ---
Author Organization [employer] Address [address] [facility] 7t [place] [address] Care Team Providers Care Radio Station Engineer Name Role Phone Zev Sanders MD Primary Care Provider [phone] Michelle Quiroz RN Unavailable [phone] Gonzalo Lima Unavailable Benedict Lima RN Unavailable [phone] Encounter Details Date Type Department Care Team (Late st Contact Info) Description 07/21/[address] [facility] [address] [place], [place] [phone] Zev Sanders MD [address] [place], [place] [phone] Social History Tobacco Use Types Packs/Day Years [...] Upcoming Encounters Date Type Department Care Team ([facility] st Contact Info) Description 01/17/2025 3:15 PM EDT Office Visit [facility] & PEDS [address] [place] [address] Zev Sanders MD [address] [place] [address] documented as of this encounter Visit Diagnoses Not on filedocumented in this encounter Care Teams Radio Station Engineer Relationship Specialty Start Date End Date Zev Sanders MD [address] [place] [address] PCP - General Internal Medicine 11/16/19 Michelle Quiroz RN [address] [place] [address] Registered Nurse Family Medicine 10/04/24 12/06/24 Gonzalo Lima 10/04/24 Benedict Lima RN [address] [place] [address] Registered Nurse Family Medicine 12/06/24 documented as of this encounter
--- OUTSIDE RECORDS SUMMARY | 2024-12-26 17:28 | XMS_ITS | Encounter Summary ---
Author Organization [employer] Address [address] [facility] 7t [place] [address] Care Team Providers Care Payment Analyst Name Role Phone Zev Sanders MD Primary Care Provider [phone] Michelle Quiroz RN Unavailable [phone] Gonzalo Lima Unavailable Benedict Lima RN Unavailable [phone] Reason for Visit * Reason Onset Date Comments ER Follow-up 10/04/2024 Encounter Details Date Type Department Care Team ([facility] st Contact Info) Description 10/04/2024 Telephone [facility]S [address] [place], [place] [phone] Zev Sanders MD [address] [place], [place] [phone] ER Follow-up Social History Tobacco Use Types [...] the past 12 months, has t he [employer], gas, oil or water [employer] threatened to shut off services in your [...] to report ED visit on : Date: [facility]: 10/01/24 Seen for: Trouble breathing Symptomatic No Requesting a referral to patient relations liaison at [facility]. Contact pt at [phone] documented in this encounter Plan of Treatment Upcoming Encounters Date Type Department Care Team (Late st Contact Info) Description 01/17/2025 3:15 PM EDT Office Visit [facility] [address] [place] [address] Zev Sanders MD [address] [place] [address] documented as of this encounter Visit Diagnoses Not on filedocumented in this encounter Additional Health Concerns Assessment Noted Time PHQ-9 Depression Total Score: 7 10/14/19 24 11:59 AM EDT documented as of this encounter Care Teams Payment Analyst Relationship Specialty Start Date End Date Zev Sanders MD [address] [place] [address] PCP - General Internal Medicine 11/16/19 iMchelle Quiroz, BIANCA [address] [place], [place] [phone] Registered Nurse Family Medicine 10/04/24 12/06/24 Gonzalo Lima 10/04/24 Benedict Lima RN [address] [place], [place] [phone] Registered Nurse Family Medicine 12/06/24 documented as of this encounter
--- OUTSIDE RECORDS SUMMARY | 2024-12-26 17:28 | XMS_ITS | Encounter Summary ---
Author Organization [employer] Address [address] [facility] 7 [place] [address] Care Team Providers Care Regional Business Manager Name Role Phone Zev Sanders MD Primary Care Provider [phone] Gonzalo Lima Unavailable Benedict Lima RN Unavailable [phone] Reason for Referral * Consultation (Urgent) - Authorized Specialty Diagnoses / Procedures Referred By Armando ye Referred To Contact Orthopaedic Surgery Diagnoses Synovial cyst of right popliteal space Zev Sanders MD [address] [place] [address] Phone: tel: fax: [facility] [address] [place] [address] Phone: tel: fax: Referral ID Status Reason Start Date Expiration Date Visits Requested Visits Authorized [id number] Authorized Specialty Services Required 12/17/2024 12/17/2025 1 1 Encounter Details Date Type Department Care Team (Late st Contact Info) Description 12/15/2024 Orders Only [facility] [address] [place] [address] Zev Sanders MD [address] [place] [address] Essential hypertension (Primary Dx); Synovial cyst of right popliteal space Social History Tobacco Use Types Packs/Day Years [...] Upcoming Encounters Date Type Department Care Team ([facility] st Contact Info) Description 01/17/2025 3:15 PM EDT Office Visit [facility] [address] [place] [address] Zev Sanders MD [address] [place] [address] Scheduled Referrals Name Type Priority Associated Diagnoses Order Schedule Referral to Orthopaedic Surgery Outpatient Referral Urgent Synovial cyst of right popliteal space Expected: 12/17/2024 (Approximate), Expires: 12/17/2025 documented as of this encounter Visit Diagnoses Diagnosis Essential hypertension- Primary Unspecified essential hypertension Synovial cyst of right popliteal space documented in this encounter Additional Health Concerns Assessment Noted Time PHQ-9 Depression Total Score: 2 10/15/19 11:49 AM EDT documented as of this encounter Care Teams Regional Business Manager Relationship Specialty Start Date End Date Zev Sanders MD [address] [place] [address] PCP - General Internal Medicine 11/16/19 Gonzalo Lima 10/04/24 Benedict Lima, BIANCA [address] [place] [address] Registered Nurse Family Medicine 12/06/24 documented as of this encounter
--- OUTSIDE RECORDS SUMMARY | 2024-12-26 17:28 | XMS_ITS | Encounter Summary ---
Author Organization [employer] Address [address] [facility] 7t [place] [address] Care Team Providers Care Dance Hall Host/Hostess Name Role Phone Zev Sanders MD Primary Care Provider [phone] Michelle Quiroz RN Unavailable [phone] Gonzalo Lima Unavailable Benedict Lima RN Unavailable [phone] Encounter Details Date Type Department Care Team (Late st Contact Info) Description 12/24/2022 Orders Only [facility] MEDICINE [address] [place], [place] [id number] Provider, MD Josh Social History Tobacco Use [...] 3:15 PM EDT Office Visit [facility] CHC MED & PEDS [address] [place], [place] [phone] Zev Sanders MD [address] [place], [place] [phone] documented as of this encounter Procedures Procedure Name Priority Date/Time Associated Diagnosis Comments HM PAP/HPV Routine 01/15/2022 documented in this encounter Results * Hm Pap Smear (01/15/2022) Historical Provider HEALTH MAINTENANCE Final Result documented in this encounter Visit Diagnoses Not on filedocumented in this encounter Care Teams Dance Hall Host/Hostess Relationship Specialty Start Date End Date Zev Sanders MD [address] [place] [address] PCP - General Internal Medicine 11/16/19 Michelle Quiroz RN [address] [place] [address] Registered Nurse Family Medicine 10/04/24 12/06/24 Gonzalo Lima 10/04/24 Benedict Lima RN [address] [place] [address] Registered Nurse Family Medicine 12/06/24 documented as of this encounter
--- OUTSIDE RECORDS SUMMARY | 2024-12-26 17:28 | XMS_ITS ---
Author Organization [employer] Address [address] [place] [address] [address], [place] [address] Care Team Providers Care Pharmacy Services Director Name Role Phone Zev Sanders MD Primary Care Provider [phone] Gonzalo Lima Unavailable Benedict Lima RN Unavailable [phone] Complex Status:Enrolled (Active) Start date:10/04/2024 Enrollment date:10/14/2024 Enrollment reason:ADT Feed Overview [facility] ED 10/01/24 shortness of breath Case Team Name Relationship Phone Gonzalo Lima(Responsible Staff) [phone] Continued Care and Services Coordination
--- OUTSIDE RECORDS SUMMARY | 2024-12-26 17:28 | XMS_ITS | Encounter Summary ---
Author Organization [employer] Address [address] [facility] [address] [place] [address] Care Team Providers Care Police Or Patrol Park Officer Name Role Phone Zev Sanders MD Primary Care Provider [phone] Michelle Quiroz RN Unavailable [phone] Gonzalo Lima Unavailable Benedict Lima RN Unavailable [phone] Reason for Visit * Reason Onset Date Comments Med Refill 07/21/2023 Encounter Details Date Type Department Care Team (Late st Contact Info) Description 07/21/2023 Telephone [facility] MEDICINE [address] [place] [address] Zev Sanders MD [address] [place], [place] [phone] Med Refill Social History Tobacco Use Types [...] 150 MG capsule To be sent to: [facility] - [place], [place] - [address] [place] [address] documented in this encounter Plan of Treatment Upcoming Encounters Date Type Department Care Team ([facility] st Contact Info) Description 01/17/2025 3:15 PM EDT Office Visit [facility] CHC MED & PEDS [address] [place] [address] Zev Sanders MD [address] [place] [address] documented as of this encounter Visit Diagnoses Not on filedocumented in this encounter Care Teams Police Or Patrol Park Officer Relationship Specialty Start Date End Date Zev Sanders MD [address] [place] [address] PCP - General Internal Medicine 11/16/19 Michelle Quiroz RN [address] [place] [address] Registered Nurse Family Medicine 10/04/24 12/06/24 Gonzalo Lima 10/04/24 Benedict Lima RN [address] [place] [address] [place] [address] Registered Nurse Family Medicine 12/06/24 documented as of this encounter
--- OUTSIDE RECORDS SUMMARY | 2024-12-26 17:28 | XMS_ITS | Encounter Summary ---
Author Organization [employer] Address [address] [facility] 7t [place] [address] Care Team Providers Care Dobie Worker Name Role Phone Zev Sanders MD Primary Care Provider [phone] Michelle Quiroz RN Unavailable [phone] Gonzalo Lima Unavailable Benedict Lima RN Unavailable [phone] Reason for Visit * Reason Comments Med Refill Encounter Details Date Type Department Care Team (Late st Contact Info) Description 10/28/2024 Refill [facility] CHC MED & PEDS [address] [place], [place] [phone] Darlene Gant MD [address] [place] [address] Chronic low back pain, unspecified back pain [...] Upcoming Encounters Date Type Department Care Team ([facility] st Contact Info) Description 01/17/2025 3:15 PM EDT Office Visit [facility] CHC MED & PEDS [address] [place] [address] Zev Sanders MD [address] [place] [address] documented as of this encounter Visit Diagnoses Diagnosis Chronic low back pain, unspecified back pain laterality, unspecified whether sciatica present documented in this encounter Additional Health Concerns Assessment Noted Time PHQ-9 Depression Total Score: 2 10/15/19 25 11:49 AM EDT documented as of this encounter Care Teams Dobie Worker Relationship Specialty Start Date End Date Zev Sanders MD [address] [place] [address] PCP - General Internal Medicine 11/16/19 Michelle Quiroz RN [address] [place] [address] Registered Nurse Family Medicine 10/04/24 12/06/24 Gonzalo Lima 10/04/24 Benedict Lima RN [address] [place] [address] Registered Nurse Family Medicine 12/06/24 documented as of this encounter
--- OUTSIDE RECORDS SUMMARY | 2024-12-26 17:28 | XMS_ITS | Encounter Summary ---
Author Organization [employer] Address [address] [facility] [address] 7[address] [place] [address] Care Team Providers Care Tilt Wall Supervisor Name Role Phone Zev Sanders MD Primary Care Provider [phone] Michelle Quiroz RN Unavailable [phone] Gonzalo Lima Unavailable Benedict Lima RN Unavailable [phone] Encounter Details Date Type Department Care Team (Late st Contact Info) Description 11/24/2024 Orders Only [facility] CHC MED & PEDS [address] [place] [address] Provider, MD Josh Social History Tobacco Use [...] Encounters Date Type Department Care Team ([facility] Contact Info) Description 01/17/2025 3:15 PM EDT Office Visit [facility] CHC MED & PEDS [address] [place] [address] Zev Sanders MD [address] [place] [address] documented as of this encounter Procedures Procedure [...] documented as of this encounter Care Teams Tilt Wall Supervisor Relationship Specialty Start Date End Date Beauzile, Thevenin, MD [address] [place], [place] [phone] PCP - General Internal Medicine 11/16/19 Michelle Quiroz, BIANCA [address] [place], [place] [phone] Registered Nurse Family Medicine 10/04/24 12/06/24 Gonzalo Lima 10/04/24 Benedict Lima RN [address] [place], [place] [phone] Registered Nurse Family Medicine 12/06/24 documented as of this encounter
--- OUTSIDE RECORDS SUMMARY | 2024-12-26 17:28 | XMS_ITS | Encounter Summary ---
Author Organization [employer] Address [address] [facility] 7t [place] [address] Care Team Providers Care Lisw Name Role Phone Zev Sanders MD Primary Care Provider [phone] Michelle Quiroz RN Unavailable [phone] Gonzalo Lima Unavailable Benedict Lima RN Unavailable [phone] Encounter Details Date Type Department Care Team (Late st Contact Info) Description 11/23/2024 Orders Only [facility] [address] [place] [address] Provider, MD Josh Social History Tobacco Use [...] Upcoming Encounters Date Type Department Care Team ([facility] Contact Info) Description 01/17/2025 3:15 PM EDT Office [facility] CH[facility] MED & PEDS [address] [place] [address] Zev Sanders MD [address] [place] [address] documented as of this encounter Procedures Procedure [...] documented as of this encounter Care Teams Lisw Relationship Specialty Start Date End Date Zev Sanders MD [address] [place] [address] PCP - General Internal Medicine 11/16/19 Michelle Quiroz RN [address] [place] [address] Registered Nurse Family Medicine 10/04/24 12/06/24 Gonzalo Lima 10/04/24 Benedict Lima RN [address] [place] [address] Registered Nurse Family Medicine 12/06/24 documented as of this encounter
--- OUTSIDE RECORDS SUMMARY | 2024-12-26 17:28 | XMS_ITS ---
Author Organization [employer] Address [address] [place] [address] 7 [place] [address] Care Team Providers Care Weighmaster Lead Name Role Phone Zev Sanders MD Primary Care Provider [phone] Gonzalo Lima Unavailable Benedict Lima RN Unavailable [phone] Complex Status:Enrolled (Active) Start date:10/04/2024 Enrollment date:10/14/2024 Enrollment reason:ADT Feed Overview [facility] ED 10/01/24 shortness of breath Case Team Name Relationship Phone Benedict Lima RN(Responsible Staff) Registered Nurse [phone] Continued Care and Services Coordination
--- OUTSIDE RECORDS SUMMARY | 2024-12-26 17:28 | XMS_ITS | Encounter Summary ---
Author Organization [employer] Address [address] [facility] [address] [place] [address] Care Team Providers Care Thread Grinder Name Role Phone Zev Sanders MD Primary Care Provider [phone] Michelle Quiroz RN Unavailable [phone] Gonzalo Lima Unavailable Benedict Lima RN Unavailable [phone] Encounter Details Date Type Department Care Team (Late st Contact Info) Description 11/25/2024 Orders Only [facility] CHC MED & PEDS [address] [place] [address] Provider, MD Josh Social History Tobacco Use [...] Upcoming Encounters Date Type Department Care Team ([facility] Contact Info) Description 01/17/2025 3:15 PM EDT Office Visit [facility] CHC MED & PEDS [address] [place] [address] Zev Sanders MD [address] [place] [address] documented as of this encounter Procedures Procedure [...] documented as of this encounter Care Teams Thread Grinder Relationship Specialty Start Date End Date Zev Sanders MD [address] [place] [address] PCP - General Internal Medicine 11/16/19 Michelle Quiroz RN [address] [place] [address] Registered Nurse Family Medicine 10/04/24 12/06/24 Gonzalo Lima 10/04/24 Benedict Lima RN [address] [place] [address] Registered Nurse Family Medicine 12/06/24 documented as of this encounter
--- OUTSIDE RECORDS SUMMARY | 2024-12-26 17:29 | XMS_ITS ---
* (ABNORMAL) Urinalysis, Complete, with Reflex to Culture (09/25/2024 3:46 PM EDT) Color Urine Yellow [facility] Appearance Urine Clear [facility] PH 5.5 5.0 - 9.0 [facility] Glucose Urine UA Negative Negative mg/dL [facility] Urine Blood Negative Negative [facility] Specific [place] - Urine 1.010 1.005 - 1.025 [facility] Urine Protein Negative Neg-Trace mg/dL [facility] Urine Ketones Negative Negative mg/dL [facility] Nitrite Urine Negative Negative [facility] Leukocyte Esterase Urine Trace(A) Negative [facility] RBC Urine 0-2 0 - 2 /HPF [facility] Urine WBC 0-5 0 - 5 /HPF [facility] Urine Squamous Epithelial Cell 0-2 0 - 2 /HPF [facility] Urine Bacteria None Seen None Seen [facility] Hyaline Casts, Urine 0-2 0 - 2 /LPF [facility] 09/25/2024 3:46 PM EDT 09/25/2024 3:49 PM EDT Narrative [facility] - 09/25/2024 4:22 PM EDT Urine, Clean Catch us Generic External Data Provider LAB URINE ORDERAB LES Final Result Performing Organization Address City/State/[facility] [[email or web address]] Co de Phone Number [facility] [address] [place] [phone] * HCG, Qualitative, Urine (09/25/2024 3:46 PM EDT) Urine NEGATIVE NEGATIVE [facility] Comment:This test was develo ped to detect early . Falsenegative results may occur after the 5th - 7th week ofpregnancy when using this test method. If clinicallyindicated, consider a serum hCG. 09/25/2024 3:46 PM EDT 09/25/2024 3:49 PM EDT us Generic External Data Provider LAB URINE ORDERAB LES Final Result [facility] [address] [place], [place] [phone] * Cologuard?? colon cancer screening (03/10/2023 2:14 PM EST) Cologuard Result Negative Negative 03/21/20 1:56 AM EST [facility] (CLIA #:[id number]) Comment: NEGATIVE TEST RESULT. A negative Cologuard [...] Steward. et al, N Engl J Med 2014;370(14):1176-8187) The normal value (reference range) for this assay is negative. COLOGUARD RE-SCREENING RECOMMENDATION: Periodic colorectal cancer screening is an important part of preventive healthcare for asymptomatic individuals at average risk for colorectal cancer. Following a negative Cologuard result, the [place] [employer] and U.S. Multi-Society Task Force screening guidelines recommend a Cologuard re-screening interval of 3 years. References: [place] [employer] Guideline for Colorectal Cancer Screening: https://www.cancer.org/cancer/eajan-zlbwez-sidzys/doekmzpbj-rlxrildlq-ajfpyav/ac s-rec ommendations.html.; Edgar CRESPO, Antonio STONE, Salma CorderoK, Colorectal Cancer Screening: Recommendations for Physicians and Patients from the U.S. Multi-Society Task Force on Colorectal Cancer Screening , Am J Gastroenterology 2017; 112:8684-7826. TEST DESCRIPTION: Composite algorithmic analysis of stool [...] were screened with both Cologuard and colonoscopy. (JorgeL uis Dunn et al, N Engl J Med 2014;370(14):3336-4646.) Cologuard may produce a false negative or [...] can be accessed at the following location: www.Inbiomotion/results. Additional description of the Cologuard test process, warnings and precautions can be found at www.GraffitiogMixersrd.com. Stool specimen (specimen) 03/10/2023 2:14 PM EST 03/12/2023 8:29 PM EST us Zev Sanders MD LAB MOLECULAR DIAGNOSTICS O RDERABLES Final Result [facility] (CLIA #:[id number]) [address] [place] [address], * HPV E6/E7 RFLX VANNESSA 16 18/45 (01/15/2022 10:19 AM EDT) Pathologist [facility] HPV mRNA E6/E7 rflx Not Detected Not Detected [facility] Comment: Methodology: Top Icer-Mediated Amplification This assay detects E6/E7 viral messenger RNA (mRNA) from 14 high-risk HPV types (16,18,31,33,35,39,45,51,52,56,58,59,66,68). Cervical sources are required for HPV testing. If a vaginal source from a patient who has had a total hysterectomy with removal of cervix was submitted, please contact the testing laboratory for alternative testing options. For additional information, please refer to http://Storone.[email or web address] Software/faq/YZL176j1 (This link if provided for information/ educational purposes only.) THIS TEST WAS PERFORMED AT: [facility] [address] [place] [address],[place] [address] ESPERANZA CRUZ MD 01/15/2022 10:1 9 AM EDT Mario Alberto Morgan MD HISTORICAL/NON ORDERABLE LABS Fi nal Result [facility] * Hm Pap Smear (01/15/2022) Historical Provider HEALTH MAINTENANCE Final Result * HEPATITIS C AB W/REFL TO HCV RNA, QN, PCR (11/12/2021 12:09 PM EDT) Pathologist [facility] HEPATITIS C ANTIBODY NON-REACT [facility] NON-REACT [facility] INDEX 0.09 <1.00 [facility] Comment: HCV antibody was non-reactive. There is no laboratory evidence of HCV infection. In most cases, no further action is required. However, if recent HCV exposure is suspected, a test for HCV RNA (test code 36717) is suggested. For additional information please refer to http://Storone.[email or web address] Software/faq/LGD13u4 (This link is being provided for informational/ educational purposes only.) 11/12/2021 12:0 9 PM EDT Zev Sanders MD HISTORICAL/NON ORDERABLE LA BS Final Result Performing Organization Address [facility] [[email or web address]] Co de Phone Number [facility] [address] * (ABNORMAL) LIPID PANEL, STANDARD (11/12/2021 [...] LDL-C. Hilario MOON et al. JUANA. 2013;310(19): 2008-4863 (http://education.Mixers.Boats.com/faq/AGE961) Non-HDL Cholesterol 129 <130 mg/dL (calc) [facility] Comment: For patients with diabetes plus 1 major ASCVD risk factor, treating to a non-HDL-C goal of <100 mg/dL (LDL-C of <70 mg/dL) is considered a therapeutic option. Triglycerides 120 <150 mg/dL [facility] 11/12/2021 12:0 9 PM EDT us Zev Sanders MD LAB BLOOD ORDERABLES Final Result [facility] [address] [place] [address], * Mammography Report 1 (10/17/2021 2:30 PM [...] Most Recently Relevant to Health Maintenance Insurance [employer] C3 Care Teams Customer Care Manager Relationship Specialty Start Date End Date Zev Sanders MD [address] [place] [phone] PCP - General Internal Medicine 11/16/19 Gonzalo Lima 10/04/24 Benedict Lima, BIANCA [address] [place] [address] Registered Nurse Family Medicine 12/06/24 Clinical Summary Created on: December 26, 2024 Deysi Pfeiffer : 1970 Sex: Female Author Organization [employer] Address [address] [place] [address] 7 [place] [address] Care Team Providers Care Customer Care Manager Name Role Phone Zev Sanders MD Primary Care Provider Gonzalo Lima Unavailable Benedict Lima RN Unavailable [phone] Allergies Active Allergy Reactions Criticality Noted Date Comments Penicillins Rash High 05/13/2019 RASH ON MOUTH WHEN A CHILD Shellfish Allergy Rash Low 04/08/2024 Medications tiotropium (Spiriva Respimat) 2.5 MCG/ACT inhalerIndicati ons:COPD (chronic obstructive pulmonary disease) case management patient ([facility]) ([facility]) INHALE TWO PUFF BY MOUTH EVERY MORNING 4 g 5 023 Active budesonide-form oterol (Symbicort) 160-4.5 MCG/ACT inhaler Inhale 2 puffs in the morning and at bedtime. 022 Active ipratropium-alb uterol (Duo-Neb) 0.5-2.5 mg/3 mL nebulizer solution Take 3 mL by nebulization Every 6-8 hours as needed for wheezing. 025 Active mirtazapine (Remeron) 45 MG tablet Take 1 tablet by mouth at bedtime. Active montelukast (Singulair) 10 MG tablet Take 1 tablet by mouth at bedtime. Active oxyCODONE (Roxicodone) 5 MG immediate release tablet Take 1 tablet by mouth if needed in the morning, at noon, and at bedtime for severe pain. 025 Active naloxone (Narcan) 4 mg/0.1 mL nasal spray 024 Active predniSONE (Deltasone) 5 MG tablet Take 1 tablet by mouth Once per day. Active levalbuterol (Xopenex) 0.63 MG/3ML nebulizer solutionIndicat ions:Asthma-chr onic obstructive pulmonary disease overlap syndrome (CMS/HCC) (HCC) Take 1 ampule by nebulization every 8 (eight) hours if needed for wheezing. 72 mL 11 025 2025 Active QUEtiapine (SEROquel) 100 MG tablet Take 1 tablet (100 mg) by mouth at bedtime. 30 tablet 025 Active cholecalciferol VITAMIN D (Vitamin D-3) 50 MCG (2000 UT) tablet TAKE 1 TABLET EVERY MORNING 90 tablet 025 Active Ventolin HFA 108 (90 Base) MCG/ACT inhaler Inhale 2 puffs every 6 (six) hours if needed for wheezing. Active docusate sodium (Colace) 100 MG capsule Take 1 tab po bid prn constipation 60 capsule 3 025 Active esomeprazole (NexIUM) [address] capsule TAKE ONE CAPSULE EVERY MORNING 90 capsule 1 025 Active pregabalin (Lyrica) 150 MG capsuleIndicati ons:Chronic low back pain, unspecified back pain laterality, unspecified whether sciatica present TAKE ONE CAPSULE TWICE DAILY IN THE MORNING AND AT BEDTIME 60 capsule 025 Active SUMAtriptan (Imitrex) 25 MG tabletIndicatio ns:Other migraine without status migrainosus, not intractable Take 1 tablet (25 mg) by mouth 1 (one) time if needed for migraine for up to 1 dose. May repeat dose once in 2 hours if no relief. Do not exceed 2 doses in 24 hours. 9 tablet 025 Active lisinopril 20 MG tabletIndicatio ns:Essential hypertension Take 1 tablet (20 mg) by mouth in the morning. 30 tablet 3 025 Active lisinopril 10 MG tablet TAKE ONE TABLET EVERY MORNING 90 tablet 1 025 2024 Discontinued esomeprazole (NexIUM) [address] capsule TAKE ONE CAPSULE EVERY MORNING 90 capsule 1 025 2024 Discontinued pregabalin (Lyrica) 150 MG capsuleIndicati ons:Chronic low back pain, unspecified back pain laterality, unspecified whether sciatica present TAKE ONE CAPSULE TWICE DAILY IN THE MORNING AND AT BEDTIME 60 capsule 025 2024 Discontinued lisinopril 10 MG tablet TAKE ONE TABLET EVERY MORNING 90 tablet 1 025 2024 Discontinued(R eorder (will not trigger notification to Pharmacy)) Active Problems Problem Noted Date Diagnosed Date Olecranon bursitis, right elbow 03/29/2022 Asthma-chronic obstructive p ulmonary disease overlap syndrome (CMS/HCC) 12/19/2017 Chronic back pain 12/19/2017 Essential hypertension 12/19/2017 Menopausal symptom 12/19/2017 Migraine 12/19/2017 Mood disorder 12/19/2017 Seasonal allergies 12/19/2017 Tobacco dependence syndrome 12/19/2017 Encounters Date Type Department Care Team Description 12/17/2024 Results Follow-Up [facility] [address] [place] [phone] Isabelle Robbins, sheeter operator US lower extremity venous duplex right 12/15/2024 Orders Only [facility] [address] [place], [place] [phone] Zev Sanders MD Essential hypertension (Primary Dx); Synovial cyst of right popliteal space 12/15/2024 Patient Outreach [facility] [address] [place] [address] Zev Sanders MD 12/14/[address] [phone] Zev Sanders MD Nurse Triage 12/10/[address] [phone] Zve Sanders MD F/U CT scan 12/07/2024 3:45 PM EDT Office Visit [facility] [address] [place] [address] Zev Sanders MD Lower limb pain, anterior, right (Primary Dx); Essential hypertension; Asthma-chronic obstructive pulmonary disease overlap syndrome (CMS/HCC); Other migraine without status migrainosus, not intractable 12/07/2024 Travel 12/06/2024 Patient Outreach [address] [address] Zev Sanders MD Care Management (C3CM- f/u call) 12/06/2024 Telephone [facility] [address] [place] [address] Zev Sanders MD Chart Prep 12/02/2024 Refill [facility] [address] [place] [address] Zev Sanders MD Chronic low back pain, unspecified back pain laterality, unspecified whether sciatica present 11/30/2024 Telephone [facility] [address] [place] [address] Zev Sanders MD ER Follow-up 11/30/2024 Refill [facility] [address] [place] [address] Zev Sanders MD 11/26/2024 Patient Outreach [address] [address] Zev Sanders MD 11/26/2024 Patient Outreach [address] [address] Zev Sanders MD Transition Of Care (Tcm) (HDF unscheduled LVM ) 11/25/2024 Orders Only [facility] [address] [place] [address] Josh Leonard MD 11/24/2024 Orders Only [facility] [address] [place] [address] Josh Leonard MD 11/23/2024 Telephone [facility] [address] [place] [address] Zev Sanders MD No Show 11/23/2024 Patient Outreach [facility] [address] [place], [place] [phone] Zev Sanders MD 11/23/2024 Orders Only [facility] [address] [place] [address] Josh Leonard MD 11/22/2024 Patient Outreach [address] [phone] Zev Sanders MD 11/22/2024 Patient Outreach [address] [phone] Zev Sanders MD Care Coordination (C3/W MICHAEL Dejesus f/u call) 11/22/2024 Patient Outreach [facility] [address] [place] [address] Zev Sanders MD Care Coordination (C3CM f/u call) 11/11/2024 1:15 PM EDT Telemedicine [facility] [address] [place] [address] Martha Zimmer RN Chest pain, unspecified type [R07.9] 11/11/2024 Travel 11/11/2024 Patient Outreach [address] [address] Zev Sanders MD Care Management (C3- f/u call lv) 11/04/2024 Orders Only [facility] External Provider, [facility] 11/01/2024 Telephone [facility] [address] [place] [address] Zev Sanders MD No Show 11/01/2024 Refill [facility] [address] [place] [address] Darlene Gant MD Chronic low back pain, unspecified back pain laterality, unspecified whether sciatica present 10/28/2024 Refill [facility] [address] [place] [address] Darlene Gant MD Chronic low back pain, unspecified back pain laterality, unspecified whether sciatica present 10/28/2024 Patient Outreach [address] [address] Zev Sanders MD Care Management (C3CM- f/u call) 10/22/2024 11:00 AM EDT Telemedicine [facility] [address] [place] [address] Humaira Lopez RN Fall, subsequent encounter [W19.XXXD] 10/21/2024 1:00 PM EDT Office Visit [facility] [address] [place] [address] Wendy Andre MD Constipation, unspecified constipation type (Primary Dx); Palpitations 10/21/2024 Travel 10/20/2024 Telephone [facility] [address] [place] [address] Zev Sanders MD Nurse Triage 10/15/2024 Telephone [facility] [address] [place] [address] Zev Sanders MD 10/14/2024 Plan of Care Documentation [address] [address] 10/14/2024 Patient Outreach [address] [address] Zev Sanders MD Care Coordination ([facility]/DESEAN Lima, [facility] assessment, Enrolled CM Program ) 10/14/2024 Patient Outreach [facility] [address] [place] [address] Zev Sanders MD Care Coordination (C3 initial assessment) 10/13/2024 Patient Outreach [address] [address] Zev Sanders MD Care Coordination ([facility]/DESEAN Lima, Appt reminder ) 10/11/2024 Patient Outreach [facility] [address] [place] [address] Zev Sanders MD 10/06/2024 Telephone [facility] [address] [place] [address] Zev Sanders MD Med Refill 10/06/2024 Refill [facility] [address] [place] [address] Zev Sanders MD Chronic low back pain, unspecified back pain laterality, unspecified whether sciatica present 10/04/2024 Telephone [facility] [address] [place] [address] Zev Sanders MD ER Follow-up 10/04/2024 Travel 10/04/2024 Patient Outreach [address] [address] Zev Sanders MD Care Coordination ([facility]/W Gonzalo Lima, initial oureach_assessment scheduled) 10/04/2024 Patient Outreach [address] [address] Zev Sanders MD Care Coordination ([facility]/W Gonzalo Lima, Chart review) 10/04/[address] [address] Zev Sanders MD Nurse Triage 10/04/2024 Patient Outreach [facility] [address] [place] [address] Zev Sanders MD Care Coordination ([facility] chart review) 10/04/2024 Patient Outreach [address] [address] Zev Sanders MD 09/30/2024 Patient Outreach [address] [address] Zev Sanders MD Transition Of Care (Tcm) ([facility] unscheduled LVM ) 09/28/2024 Patient Outreach [address] [address] Zev Sanders MD Transition Of Care (Tcm) [...] Visit [facility] [address] [place] [address] Zev Sanders MD [address] [place] [address] Health Maintenance Due Date Last Done Comments CT Colonography 1970 Colonoscopy 1970 FIT 1970 HIV Screening 1970 Sigmoidoscopy 1970 Hepatitis A Vaccines (1 of 2 - Risk 2-dose series) 1989 Hepatitis B Vaccines (1 of 3 - 19+ 3-dose series) 1989 Mammogram 10/18/2023 10/17/2021, 12/04/2017 FOBT 03/10/2024 03/10/2023 Zoster Vaccines (2 of 2) 06/24/2024 04/29/2024 COVID-19 Vaccine ( - 2024-25 season) 2024 Influenza Vaccine (#1) 2024 , [...] Comments VASC US LOWER EXTREMITY VENOUS DUPLEX RIGHT Urgent 12/15/2024 Lower limb pain, anterior, right MRI BRAIN WO CONTRAST Routine 11/24/2024 1:38 [...] Recently Relevant to Health Maintenance Results * Vascular US lower extremity venous duplex right (12/15/2024) Zev Sanders MD CV VASCULAR PROCEDURES Mary Jane l Result * MRI BRAIN WO CONTRAST (11/24/2024 1:38 PM EDT) Anatomical Region Laterality Modality Magnetic Resonan ce Historical Provider IMG MRI PROCEDURES Final Result * XR Chest 1 View (11/24/2024 1:33 PM EDT) Only the most recent of2 resultswithin the time period is included. Anatomical Region Laterality Modality Chest Radiographic Joy ging Historical Provider IMG XR PROCEDURES Final R esult * Transthoracic echo (TTE) complete (11/23/2024 3:04 PM EDT) Historical Provider CV ECHO PROCEDURES Final Result * ECG 12 lead (11/23/2024 11:53 AM EDT) Only the most recent of5 resultswithin the time period is included. us Historical Provider ECG ORDERABLES Final Res ult * CT Head w/o Contrast (11/22/2024 10:55 AM EDT) Anatomical Region Laterality Modality Head, Neck Computed Tomogra phy Historical Provider IMG CT PROCEDURES Final R esult * CT CHEST ANGIO W AND WO IV CONTRAST (11/22/2024 10:47 AM EDT) Anatomical Region Laterality Modality Computed Tomogra phy Historical Provider IMG CT PROCEDURES Final R esult * CT Chest w/ Contrast (11/04/2024 2:52 PM EDT) Anatomical Region Laterality Modality Body, Chest Computed Tomogra phy 11/04/2024 2:52 PM EDT Narrative 11/04/2024 4:05 PM EDT [place] [address] [address] Scan Report Signed Patient: Deysi Pfeiffer MR#: [id number] : 1970 Acct:[id number] Age/Sex: 54 / F ADM Date: 11/04/24 Loc: .ED Attending Dr: Ordering Physician: Gloria Hassan PA-C Date of Service: 11/04/24 Procedure(s): CT chest w IV con Accession Number(s): [id number] cc: Zev Sanders MD; Gloria Hassan PA-C Report Number: [id number]: Total DLP = 155.70 mGy-cm EXAMINATION: CT [...] reconstruction technique DLP: 147.89 mGy centimeter. FINDINGS: CANDLE WRAPPER: Hyperinflation. Pulmonary reticular pattern. Patchy opacities, lower [...] 11/04/24 1602 DD/ 1452 TD/TT: 11/04/24 1546 [place] Chill Technician: Procedure Note Donotuseinterpreter, Image - 11/04/[address] [address] [address] Scan Report Signed Patient: Deysi Pfeiffer [facility]#: [id number] : 1970Acct:[id number] Age/Sex: 54 / FADM Date: 11/04/24 Loc: HO.ED Attending Dr: Ordering Physician: Gloria Hassan PA-C Date of Service: 11/04/24 Procedure(s): CT chest w IV con Accession Number(s): [id number] cc: Zev Sanders MD; Gloria Hassan PA-C Report Number: [id number]: Total DLP = 155.70 mGy-cm EXAMINATION: CT [...] reconstruction technique DLP: 147.89 mGy centimeter. FINDINGS: CANDLE WRAPPER: Hyperinflation. Pulmonary reticular pattern. Patchy opacities, lower [...] 11/04/24 1602 DD/ 1452 TD/TT: 11/04/24 1546 Cook Chill Technician: [facility] External Provider IMG CT PROCEDURES Final Result * CT Head for ICH (11/04/2024 1:52 PM EDT) Anatomical Region Laterality Modality Head, Neck Computed Tomogra phy 11/04/2024 1:52 PM EDT Narrative 11/04/2024 4:05 PM EDT [place] [address] CT Scan Report Signed Patient: Deysi Pfeiffer MR#: [id number] : 1970 Acct:[id number] Age/Sex: 54 / F ADM Date: 11/04/24 Loc: HO.ED Attending Dr: Ordering Physician: Gloria Hassan PA-C Date of Service: 11/04/24 Procedure(s): CT Head for ICH Accession Number(s): [id number] cc: Zev Sanders MD; Gloria Hassan PA-C Report Number: [id number]: Total DLP = 629.57 mGy-cm EXAMINATION: CT [...] 11/04/24 1602 DD/ 1352 TD/TT: 11/04/24 1546 Cook Chill Technician: Procedure Note Donotuseinterpreter, Image - 11/04/[address] [address] [address] Scan Report Signed Patient: Deysi Pfeiffer [facility]#: [id number] : 1970Acct:[id number] Age/Sex: 54 / FADM Date: 11/04/24 Loc: HO.ED Attending Dr: Ordering Physician: Gloria Hassan PA-C Date of Service: 11/04/24 Procedure(s): CT Head for ICH Accession Number(s): [id number] cc: Zev Sanders MD; Gloria Hassan PA-C Report Number: [id number]: Total DLP = 629.57 mGy-cm EXAMINATION: CT [...] 11/04/24 1602 DD/ 1352 TD/TT: 11/04/24 1546 Cook Chill Technician: [facility] External Provider IMG CT PROCEDURES Final Result * XR Chest 2 Views (10/21/2024 4:10 PM EDT) Anatomical Region Laterality Modality Chest Radiographic Joy ging 10/21/2024 4:10 PM EDT Narrative 10/21/2024 4:54 PM EDT [place] [address] XRay Report Signed Patient: Deysi Pfeiffer MR#: [id number] : 1970 Acct:[id number] Age/Sex: 54 / F ADM Date: 10/21/24 Loc: HO.ED Attending Dr: Ordering Physician: Kimberly Tello Date of Service: 10/21/24 Procedure(s): XR chest 2V Accession Number(s): [id number] cc: Zev Sanders MD; Kimberly Tello EXAMINATION: [...] 10/21/24 1651 DD/ 1610 TD/TT: 10/21/24 1625 Cook Chill Technician: Procedure Note Donotuseinterpreter, Image - 10/21/[address] [address] XRay Report Signed Patient: Deysi Pfeiffer DMR#: [id number] : 1970Acct:[id number] Age/Sex: 54 / FADM Date: 10/21/24 Loc: .ED Attending Dr: Ordering Physician: Kimberly Tello Date of Service: 10/21/24 Procedure(s): XR chest 2V Accession Number(s): [id number] cc: Zev Sanders MD; Kimberly Tello EXAMINATION: [...] 10/21/24 1651 DD/ 1610 TD/TT: 10/21/24 1625 Cook Chill Technician: [facility] External Provider IMG XR PROCEDURES Edited Result - Final * XR Shoulder 2+ Views Right (10/21/2024 3:33 PM EDT) Anatomical Region Laterality Modality Upper Extremities, Shoulder Right Radi ographic Imaging 10/21/2024 3:33 PM EDT Narrative 10/21/2024 4:55 PM EDT [address] [address] XRay Report Signed Patient: Deysi Pfeiffer MR#: [id number] : 1970 Acct:[id number] Age/Sex: 54 / F ADM Date: 10/21/24 Loc: .ED Attending Dr: Ordering Physician: Kimberly Tello Date of Service: 10/21/24 Procedure(s): XR shoulder RT min 2V Accession Number(s): [id number] cc: Zev Sanders MD; Kimberly Tello EXAMINATION: [...] 10/21/24 1652 DD/ 1533 TD/TT: 10/21/24 1625 Cook Chill Technician: Procedure Note Donotuseinterpreter, Image - 10/21/[address] [address] XRay Report Signed Patient: Deysi Pfeiffer [facility]#: [id number] : 1970Acct:[id number] Age/Sex: 54 / FADM Date: 10/21/24 Loc: HO.ED Attending Dr: Ordering Physician: Kimberly Tello Date of Service: 10/21/24 Procedure(s): XR shoulder RT min 2V Accession Number(s): [id number] cc: Zev Sanders MD; Kimberly Tello EXAMINATION: [...] 10/21/24 1652 DD/ 1533 TD/TT: 10/21/24 1625 Cook Chill Technician: us [facility] External Provider IMG XR PROCEDURES Edited Result - Final * CTA Chest PE Protocal (09/25/2024 7:40 PM EDT) Anatomical Region Laterality Modality Body, Chest Computed Tomogra phy 09/25/2024 7:40 PM EDT Narrative 09/25/2024 7:42 PM EDT [address] [address] [address] Scan Report Signed Patient: Deysi Pfeiffer MR#: [id number] : 1970 Acct:[id number] Age/Sex: 54 / F ADM Date: 09/25/24 Loc: HO.ED Attending Dr: Ordering Physician: Madeleine Aparicio MD Date of Service: 09/25/24 Procedure(s): CT angio chest PE protocol Accession Number(s): [id number] cc: Zev Sanders MD; Madeleine Aparicio MD Report Number: [id number]: Total DLP = 579.00 mGy-cm CLINICAL HISTORY: [...] in OV> 09/25/241941 DD/ 39 TD/TT: 09/25/241939 Cook Chill Technician: Procedure Note Donotuseinterpreter, Image - 09/25/[address] [place] [address] [address] Scan Report Signed Patient: Deysi [facility]feifefr [facility]#: [id number] : 1970Acct:[id number] Age/Sex: 54 / FADM Date: 09/25/24 Loc: .ED Attending Dr: Ordering Physician: Madeleine Aparicio MD Date of Service: 09/25/24 Procedure(s): CT angio chest PE protocol Accession Number(s): [id number] cc: Zev Sanders MD; Madeleine Aparicio MD Report Number: [id number]: Total DLP = 579.00 mGy-cm CLINICAL HISTORY: [...] in OV> 09/25/241941 DD/ 39 TD/TT: 09/25/241939 Cook Chill Technician: us [facility] External Provider IMG CT PROCEDURES Edited Result - Final * CT Abdomen Pelvis w/ Contrast (09/25/2024 7:23 PM EDT) Anatomical Region Laterality Modality Body, Pelvis, Abdomen Computed T omography 09/25/2024 7:23 PM EDT Narrative 09/25/2024 7:25 PM EDT [address] [address] [address] Scan Report Signed Patient: Deysi Pfeiffer MR#: [id number] : 1970 Acct:[id number] Age/Sex: 54 / F ADM Date: 09/25/24 Loc: HO.ED Attending Dr: Ordering Physician: Madeleine Aparicio MD Date of Service: 09/25/24 Procedure(s): CT abdomen pelvis w IV con Accession Number(s): [id number] cc: Zev Sanders MD; Madeleine Aparicio MD Report Number: [id number]: Total DLP = 579.00 mGy-cm CLINICAL HISTORY: [...] in OV> 09/25/241923 DD/ 22 TD/TT: 09/25/241922 Cook Chill Technician: Procedure Note Donotuseinterpreter, Image - 09/25/[address] [address] [address] Scan Report Signed Patient: Deysi Pfeiffer DMR#: [id number] : 1970Acct:[id number] Age/Sex: 54 / FADM Date: 09/25/24 Loc: HO.ED Attending Dr: Ordering Physician: Madeleine Aparicio MD Date of Service: 09/25/24 Procedure(s): CT abdomen pelvis w IV con Accession Number(s): [id number] cc: Zev Sanders MD; Madeleine Aparicio MD Report Number: [id number]: Total DLP = 579.00 mGy-cm CLINICAL HISTORY: [...] in OV> 09/25/241923 DD/ 22 TD/TT: 09/25/241922 Cook Chill Technician: [facility] External Provider IMG CT PROCEDURES Edited Result - Final * (ABNORMAL) VENOUS BLOOD GAS (09/25/2024 4:57 PM EDT) VBG pH 7.49(H) 7.32 - 7.43 [facility] Comment:METER #: [id number] additional_comment: Cb patelha VBG PCO2 42 mmHg [facility] Comment:METER #: [id number] additional_comment: Cb patelha VBG PO2 72 mmHg [facility] Comment:METER #: [id number] additional_comment: Cb patelha VBG Base Excess 9.1 mmol/L [facility] Comment:METER #: [id number] additional_comment: Joshua weber VBG HCO3 33(H) 22 - 26 mmol/L [facility] Comment:METER #: [id number] additional_comment: Joshua weber O2 Sat, Lefty 96.0 % [facility] Comment:METER #: [id number] additional_comment: Joshua weber 09/25/2024 4:57 PM EDT 09/25/2024 5:04 PM EDT us Generic External Data Provider LAB BLOOD ORDERAB LES Final Result Performing Organization Address [facility] [[email or web address]] Co de Phone Number [facility] [address] [place] [phone] * HOLD LT BLUE - POSSIBLE COAG (09/25/2024 4:47 PM EDT) Hold Lt Blue - Possible Coag SEE NOTE [facility] Comment:Specimen will be hel d untested for 4 hours. Call Hematologyif testing is desired. 09/25/2024 4:47 PM EDT 09/25/2024 5:06 PM EDT us Generic External Data Provider LAB BLOOD ORDERAB LES Final Result Performing Organization Address [facility] [[email or web address]] Co de Phone Number [facility] [address] [place] [phone] * Lactic Acid (09/25/2024 4:47 PM EDT) Lactic Acid 0.9 0.5 - 2.0 mmol/L [facility] 09/25/2024 4:47 PM EDT 09/25/2024 4:55 PM EDT us Generic External Data Provider LAB BLOOD ORDERAB LES Final Result Performing Organization Address [facility]/ZIP Co de Phone Number [facility] [address] [place] [phone] * SARS-CoV-2 RNA, Influenza A/B, and RSV RNA, Ql NAAT (09/25/2024 4:46 PM EDT) Influenza A PCR NEGATIVE Negative [facility] Influenza B PCR NEGATIVE Negative [facility] Resp Syncy Virus RNA Qual PCR NEGATIVE Negative [facility] SARS COV2 PCR NEGATIVE Negative [facility] Comment:All test results mus t [...] use by authorized laboratories.Testing performed on the [employer] GeneXpert utilizingreal-time RT-PCR.All SARS CoV2 and positive influenza A/B results arereported to [facility]. 09/25/2024 4:46 PM EDT 09/25/2024 4:55 PM EDT us Generic External Data Provider LAB MICROBIOLOGY - GENERAL ORDERABLES Final Result [facility] [address] [place] [address] [phone]
--- OUTSIDE RECORDS SUMMARY | 2024-12-26 17:29 | XMS_ITS | Encounter Summary ---
Author Organization [employer] Address [address] [place] [address] Care Team Providers Care Drier Operator Head Name Role Phone Zev Sanders MD Primary Care Provider [phone] Michelle Quiroz RN Unavailable [phone] Gonzalo Lima Unavailable Benedict Lima RN Unavailable [phone] Encounter Details Date Type Department Care Team ([facility] Contact Info) Description 04/12/2022 Orders Only [facility] [address] [place] [address] Zev Sanders MD [address] [place] [address] [phone] Social History Tobacco Use Types Packs/Day Years [...] Upcoming Encounters Date Type Department Care Team ([facility] Contact Info) Description 01/17/2025 3:15 PM EDT Office Visit [facility] [address] [place] [address] Zev Sanders MD [address] [place] [address] documented as of this encounter Procedures Procedure [...] (10/21/2022 2:13 PM EDT) Slide Review VERIFIED [facility] 10/21/2022 2:13 PM EDT 10/21/2022 5:23 PM EDT Zev Sanders MD LAB BLOOD ORDERABLES Final Result [facility] [address] [place] [phone] * (ABNORMAL) VENOUS BLOOD GAS (09/04/2022 1:17 PM EDT) VBG pH 7.37 7.32 - 7.43 [facility] Comment:METER #: [id number] additional_comment: Cb murpe VBG PCO2 57 mmHg [facility] Comment:METER #: [id number] additional_comment: Cb murpe VBG PO2 48 mmHg [facility] Comment:METER #: [id number] additional_comment: Cb murpe VBG Base Excess 6.2 mmol/L [facility] Comment:METER #: [id number] additional_comment: Cb murpe VBG HCO3 33(H) 22 - 26 mmol/L [facility] Comment:METER #: [id number] additional_comment: Cb murpe O2 Sat, Lefty 77.0 % [facility] Comment:METER #: [id number] additional_comment: Cb murpe 09/04/2022 1:17 PM EDT 09/04/2022 1:23 PM EDT [facility] External Provider LAB BLO OD ORDERABLES Final Result Performing Organization Address [facility] de Phone Number [facility] [address] [place] [phone] * D Dimer High Sensitivity (09/04/2022 1:10 PM EDT) D Dimer High Sensitivity <150 NG/ML [facility] Comment:D-DIMER HS REFERENCE RANGENote: Our assay reports D-Dimer Units (D- DU).The cut-off value for venous thromboembolic (VTE) disease is230 ng/mL. This value has a very high negative predictivevalue when the patient has a low to moderate clinicalprobability of VTE.The upper limit of normal is 243 ng/mL. 09/04/2022 1:10 PM EDT 09/04/2022 1:18 PM EDT [facility] External Provider LAB BLO OD ORDERABLES Final Result Performing Organization Address [facility] Co de Phone Number [facility] [address] [place] [phone] * B Type Natriuretic Peptide (BNP) (09/04/2022 11:26 AM EDT) B Type Natriuretic Peptide 19 <100 pg/mL [facility] Comment:For those patients w ho are being treated with Natrecor(nesiritide, recombinant BNP), BNP testing should beperformed at least two hours post treatment in order toensure that only endogenous levels of BNP are detected. 09/04/2022 11:2 6 AM EDT 09/04/2022 1:27 PM EDT us [facility] External Provider LAB BLO OD ORDERABLES Final Result [facility] [address] [place] [address] [phone] * (ABNORMAL) Comprehensive Metabolic Panel (09/04/2022 11:26 AM EDT) Pathologist [facility] Sodium 142 135 - 145 mmol/L [facility] Potassium 4.2 3.3 - 5.1 mmol/L [facility] Chloride 102 96 - 108 mmol/L [facility] Carbon Dioxide 34(H) 22 - 29 mmol/L [facility] Anion Gap 10(L) 12 - 20 [facility] Urea Nitrogen (BUN) 15 9 - 16 mg/dL [facility] Creatinine, Serum 0.68 0.5 - 1.4 mg/dL [facility] Creatinine Clr Calc Pharmacy 74.8 [facility] Comment:Provided height and weight: 162.56 cm,49 kg.eGFR (calculated from the MDRD study equation) and eCrCl(calculated from the Cockcroft-Gault equation) are based ondifferent parameters and may not yield comparable results.If eCrCl result is absurd, please check patient'sheight/weight. Estimated Glomerular Filt Rate >60 [facility] Comment:NOTE: For -Am erican individuals, multiply the result by 1.210.Chronic Kidney Disease: Estimated GFR < 60 mL/min/1.21d8Kuypci Kidney Disease: Estimated GFR < 15 mL/min/1.73m2 Glucose 112 60 - 115 mg/dL [facility] Calcium 9.4 8.4 - 10.2 mg/dL [facility] Bilirubin, Total 0.7 0.0 - 1.0 mg/dL [facility] Aspartate Amino Transferase 21 5 - 31 U/L [facility] Alanine Aminotransferase 17 0 - 31 U/L [facility] Total Protein 6.7 6.5 - 8.0 g/dL [facility] Albumin Level 4.1 3.5 - 5.0 g/dL [facility] Alkaline Phosphatase 73 39 - 117 U/L [facility] 09/04/2022 11:2 6 AM EDT 09/04/2022 11:33 AM EDT [facility] External Provider LAB BLO OD ORDERABLES Final Result [facility] [address] [place] [phone] * COVID-19 ID NOW ([email or web address]) (09/04/2022 11:26 AM EDT) IDNOW SERIAL# [id number] [facility] COVID-19 TEST Negative Negative [facility] COVID-19 NOTE See Note [facility] Comment: Results are for the identification of SARS-CoV2 RNA. TheSARS-CoV2 RNA is generally detectable in respiratory samplesduring the acute phase of infection. Positive results areindicative of the presence of SARS-CoV-2 RNA; clinicalcorrelation with patient history and other diagnosticinformation is necessary to determine patient infectionstatus. Positive results do not rule out bacterial infectionor co- infection with other viruses.Testing facilities within the [facility] and itsterritories are required to [...] use by authorized laboratories.Testing performed on the [employer] ID NOW utilizing NAAT. 09/04/2022 11:2 6 AM EDT 09/04/2022 11:33 AM EDT us [facility]al Provider LAB MOLECULAR DIAGNOSTICS ORDERABLES Final Result [facility] [address] [place] [phone] * (ABNORMAL) CBC auto differential (09/04/2022 11:26 AM EDT) White Blood Count 10.4 4.8 - 10.8 X10*3/uL [facility] Red Blood Count 5.42 4.20 - 5.50 X10*6/uL [facility] Hemoglobin 16.0 12.0 - 16.0 g/dl [facility] Hematocrit 49.3(H) 37.0 - 47.0 % [facility] Mean Corpuscular Volume 91.0 80.0 - 98.0 fL [facility] Mean Corpuscular Hemoglobin 29.5 27.0 - 33.0 pg [facility] Mean Corpuscular HGB Conc 32.5 31.0 - 35.0 g/dl [facility] Red Cell Distribution Width 14.6 11.0 - 16.0 % [facility] Platelet Count 238 160 - 400 X10*3/uL [facility] Mean Platelet Volume 9.5 9.4 - 12.3 fL [facility] Neutrophils Percent Auto 51.2 45 - 73 % [facility] Imm Gran Pct Auto 0.3 0.0 - 0.4 % [facility] Lymphocytes Percent Auto 38.4 20 - 40 % [facility] Monocytes Percent Auto 8.1 2 - 11 % [facility] Eosinophils Percent Auto 1.5 0 - 4 % [facility] Basophils Percent Auto 0.5 0 - 2 % [facility] NRBC Pct Auto 0.0 0.0 - 0.2 /100WBC [facility] Neutrophils Absolute Auto 5.4 2.0 - 8.3 x10*3/uL [facility] Imm Gran Abs Auto 0.03 0.00 - 0.03 X10*3/uL [facility] Lymphocytes Absolute Auto 4.0 1.2 - 4.9 X10*3/uL [facility] Monocytes Absolute Auto 0.8 0.1 - 1.2 X10*3/uL [facility] Eosinophils Absolute Auto 0.2 0.0 - 0.4 X10*3/uL [facility] Basophils Absolute Auto 0.1 0.0 - 0.2 X10*3/uL [facility] NRBC Abs Auto 0.000 0.0 - 0.012 X10*3/uL [facility] 09/04/2022 11:2 6 AM EDT 09/04/2022 11:33 AM EDT us [facility] External Provider LAB BLO OD ORDERABLES Final Result Performing Organization Address City/State/[facility] Co de Phone Number [facility] [address] [place] [phone] documented in this encounter Visit Diagnoses Not on filedocumented in this encounter Care Teams Drier Operator Head Relationship Specialty Start Date End Date Zev Sanders MD [address] [place] [address] PCP - General Internal Medicine 11/16/19 Michelle Quiroz RN [address] [place] [address] Registered Nurse Family Medicine 10/04/24 12/06/24 Gonzalo Lima 10/04/24 Benedict Lima RN [address] [place] [phone] Registered Nurse Family Medicine 12/06/24 documented as of this encounter
--- OUTSIDE RECORDS SUMMARY | 2024-12-26 17:29 | XMS_ITS | Clinical Summary ---
Author Organization [facility] Address [address] [place] [phone] Phone Care Team Providers Care Manager Water Waste[employer] Name Role Phone Zev Sanders MD Primary Care Provider [phone] Allergies Active Allergy Reactions Criticality Noted Date [...] (two) times a day. 60 each 5 Active acetaminophen (TYLENOL) 325 mg tablet Take [...] Date Diagnosed Date Sepsis due to pneumonia ([facility] V24, [facility] V2 8) 11/22/2024 Encounters Date Type Department Care Team Description 12/15/2024 2:15 PM EDT Ancillary Procedure [facility] [address] [place] [address] Lower limb pain, anterior, right 11/22/2024 1:28 PM EDT - 11/25/2024 1:45 PM EDT Hospital Encounter [facility] [address] [place] [phone] Tai Olivier MD Bukalo, Nermina, MD Rasul, Yar M, MD Dyspnea, unspecified type (Primary Dx); Sepsis due to pneumonia ([facility] V24, [facility] V28) Discharge Disposition: Home-Health Care Svc from Last 3 Months Medical History Medical History Date Comments UTI (urinary tract infection) Asthma COPD (chronic obstructive pulmonary disease) ( S/[facility] V24, [facility] V28) Anxiety GERD (gastroesophageal reflux disease) Hypertension [...] for your loved ones. For example, child and youth program assistant or elderly care for an older adult? [...] Date Recorded What is your living situation? Unrecognized valu e 11/22/2024 Interpersonal Safety Answer Date Record ed Physical Abuse Unrecognized value 11/22/2024 Verbal Abuse Unrecognized value 11/22/2024 Comments No Sex and Gender Information [...] Care Team (Late st Contact Info) Description 02/22/2025 3:00 PM EST Appointment [facility] CT Scan [address] [place] [phone] 03/02/2025 9:45 AM EST Office Visit Thoracic Surgery - [place] [address] [facility] [address] [place] [phone] Epi [place], [place] [address] [facility] [address] [place] [address] Health Maintenance Due Date Last Done Comments [...] 04/29/2016 Cholesterol Screening (Lipid Panel) 11/12/2026 11/12/2021 RSV Immunization Adult Patients (1 - 1-dose 75+ series) 2045 Pneumococcal Vaccine: 50+ Years Completed 04/29/2024, 12/19/2017 [...] Procedure Name Priority Date/Time Associated Diagnosis Comments VAS US DUPLEX LOWER EXT VENOUS RIGHT STAT 12/15/2024 2:14 PM EDT Lower limb pain, anterior, right ECG OUTSIDE 11/26/2024 ECG ANNOTATED 11/26/2024 CBC [...] EDT from Last 3 Months Results * Vascular US duplex lower extremity venous right (12/15/2024 2:14 PM EDT) Anatomical Region Laterality Modality Vascular, Abdomen Ultrasound Narrative 12/15/2024 4:45 PM EDT Right: 1. The right lower extremity veins are compressible and there is no evidence of DVT in the right lower extremity venous system. 2. No superficial vein thrombophlebitis. 3. There is a Rossi's cyst in the popliteal fossa measuring 5.61 cm X 1.1 cm X 4.31 cm. Right Lower Venous No evidence of deep vein thrombosis in the common femoral, deep femoral, proximal femoral, mid femoral, distal femoral, popliteal, small saphenous, posterior tibial, anterior tibial, and peroneal veins of the right leg. The vessels showed compressibility. Interrogation showed phasic and spontaneous Doppler signals. There is evidence of a complex Rossi's cyst in the popliteal fossa measuring 5.61 x 1.10 x 4.31cm. The left contralateral common femoral vein was interrogated, demonstrating normal compressibility. Doppler signals were phasic and spontaneous. No evidence of deep vein thrombosis in the gastrocnemius vein of the right leg. The vessel showed compressibility. No evidence of superficial thrombophlebitis in the saphenofemoral junction vein of the right leg. The vessel showed compressibility. Life Science Taxonomist Details A fowler scale, color and doppler analysis ultrasound was performed. During the study longitudinal and transverse views were obtained. Pulsed wave doppler was performed. us Zev Sanders MD CV VASCULAR PROCEDURES Fi nal Result * ECG-Outside (11/26/2024) us Provider Onbase MD ECG ORDERABLES Final Result * ECG-Annotated (11/26/2024) us Provider Onbase MD ECG ORDERABLES Final Result * (ABNORMAL) CBC auto differential (11/25/2024 6:35 AM EDT) Only the most recent of4 resultswithin the time period is included. WBC 6.4 4.8 - 10.8 K/mcL LAB HEMETOLOGY METHOD 11/25/2024 7:[address] [facility] RBC 3.80 3.80 - 4.80 M/mcL LAB HEMETOLOGY METHOD 11/25/2024 7:[address] [facility] Hemoglobin 10.5(L) 11.5 - 16.0 g/dL LAB HEMETOLOGY METHOD 11/25/2024 7:[address] [facility] Hematocrit 33.3(L) 35.0 - 47.0 % LAB HEMETOLOGY METHOD 11/25/2024 7:[address] [facility] MCV 86.7 79.0 - 98.0 FL LAB HEMETOLOGY METHOD 11/25/2024 7:[address] [facility] MCH 27.3 27.0 - 32.0 pcg LAB HEMETOLOGY METHOD 11/25/2024 7:[address] [facility] MCHC 31.5(L) 32.0 - 37.0 g/dL LAB HEMETOLOGY METHOD 11/25/2024 7:[address] [facility] RDW 14.9 11.0 - 15.0 % LAB HEMETOLOGY METHOD 11/25/2024 7:[address] [facility] Platelets 213 130 - 400 K/mcL LAB HEMETOLOGY METHOD 11/25/2024 7:[address] [facility] MPV 10.0 7.0 - 11.0 FL LAB HEMETOLOGY METHOD 11/25/2024 7:[address] [facility] NRBC 0.0 <1.0 % LAB HEMETOLOGY METHOD 11/25/2024 7:[address] [facility] NRBC Absolute 0.00 <0.10 K/mcL LAB HEMETOLOGY METHOD 11/25/2024 7:[address] [facility] Neutrophils Relative 63.8 % LAB HEMETOLOGY METHOD 11/25/2024 7:[address] [facility] Lymphocytes Relative 18.7 % LAB HEMETOLOGY METHOD 11/25/2024 7:[address] [facility] Monocytes Relative 12.6 % LAB HEMETOLOGY METHOD 11/25/2024 7:[address] [facility] Eosinophils Relative 3.7 % LAB HEMETOLOGY METHOD 11/25/2024 7:[address] [facility] Basophils Relative 0.6 % LAB HEMETOLOGY METHOD 11/25/2024 7:[address] [facility] Immature Granulocytes Relative 0.6 % LAB HEMETOLOGY METHOD 11/25/2024 7:[address] [facility] Neutrophils Absolute 4.10 1.50 - 7.00 K/mcL LAB HEMETOLOGY METHOD 11/25/2024 7:[address] [facility] Lymphocytes Absolute 1.20 1.00 - 5.00 K/mcL LAB HEMETOLOGY METHOD 11/25/2024 7:[address] [facility] Monocytes Absolute 0.81 0.20 - 1.00 K/mcL LAB HEMETOLOGY METHOD 11/25/2024 7:[address] [facility] Eosinophils Absolute 0.24 0.00 - 0.50 K/mcL LAB HEMETOLOGY METHOD 11/25/2024 7:[address] [facility] Basophils Absolute 0.04 0.00 - 0.20 K/[facility] LAB HEMETOLOGY METHOD 11/25/2024 7:07 AM EDT [facility] Immature Granulocytes Absolute 0.04(H) 0.00 - 0.03 K/[facility] LAB HEMETOLOGY METHOD 11/25/2024 7:07 AM EDT [facility] Blood Venous blood specimen / Unknown Venipuncture / Unknown 11/25/2024 6:35 AM EDT 11/25/2024 6:43 AM EDT us Sahil Maria MD LAB BLOOD ORDERABLES Final Resul t Performing Organization Address [facility] Co de Phone Number [facility] [address] [place] [address], [place] [phone] * SST tube (11/25/2024 6:31 AM EDT) Extra Tube Hold for add-ons. 11/25/2024 8:01 AM EDT [facility] Comment:Auto resulted. Blood Venous blood specimen / Unknown Venipuncture / Unknown 11/25/2024 6:31 AM EDT 11/25/2024 6:44 AM EDT us Sahil Maria MD LAB BLOOD ORDERABLES Final Resul t Performing Organization Address [facility] Co de Phone Number [facility] [address] [place] [address], [place] [phone] * XR Chest 1 View (11/24/2024 11:55 [...] on the prior study has resolved. Code 64423 -------- FINAL REPORT -------- Dictated By: Bong Mcguire Dictated Date: 11/25/2024 09:34 ET Assigned Physician: Bong Mcguire Reviewed and Electronically Signed By: Bong Mcguire Signed Date: 11/25/2024 09:36 ET Workstation ID: [id number] Transcribed By: Self Edit Transcribed Date: 11/25/2024 [...] seen on the prior study hasresolved. Code 00924 -------- FINAL REPORT -------- Dictated By: Bong Mcguire Dictated Date: 11/25/2024 09:34 ET Assigned Physician: Bong Mcguire Reviewed and Electronically Signed By: Bong Mcguire Signed Date: 11/25/2024 09:36 ET Workstation ID: [id number] Transcribed By: Self Edit Transcribed Date: 11/25/2024 09:34 ET us Jose GODOY IMG XR PROCEDURES Final Result * (ABNORMAL) Venous blood gas (11/24/2024 11:42 PM EDT) pH, Lefty 7.27(L) 7.32 - 7.42 pH 11/24/2024 11:48 PM EDT [facility] pCO2, Lefty 44 41 - 51 mmHg 11/24/2024 11:48 PM EDT [facility] pO2, [place]efty 61(H) 25 - 40 mmHg 11/24/2024 11:48 PM EDT [facility] HCO3, Venous 19.8(L) 22.0 - 26.0 mmol/L 11/24/2024 11:48 PM EDT [facility] O2 Sat, Lefty 94.5 % 11/24/2024 11:48 PM EDT [facility] Base Excess, Lefty -6.5(L) -2.0 - 2.0 mmol/L 11/24/2024 11:48 PM EDT [facility] Blood Venous blood specimen / Unknown Venipuncture / Unknown 11/24/2024 11:42 PM EDT 11/24/2024 11:45 PM EDT us Jose GODOY LAB BLOOD ORDERABLES Final Res ult [facility] [address] [place] [address], * MR Brain wo Contrast (11/24/2024 4:12 [...] Signed Date: 11/25/2024 08:59 ET Workstation ID: [id number] Transcribed By: Self Edit Transcribed Date: 11/25/2024 [...] There are a few scattered foci of [id number] in the supratentorial white matter which are [...] Signed Date: 11/25/2024 08:59 ET Workstation ID: [id number] Transcribed By: Self Edit Transcribed Date: 11/25/2024 08:55 ET Yari GODOY IMG MRI PROCEDURES Mary Jane l Result * (ABNORMAL) Basic metabolic panel (11/24/2024 6:12 AM EDT) Only the most recent of3 resultswithin the time period is included. Sodium 143 133 - 145 mmol/L LAB CHEMISTRY METHOD 11/24/2024 7:[address] [facility] Potassium 3.8 3.5 - 5.5 mmol/L LAB CHEMISTRY METHOD 11/24/2024 7:[address] [facility] Chloride 113(H) 96 - 110 mmol/L LAB CHEMISTRY METHOD 11/24/2024 7:[address] [facility] CO2 17(L) 21 - 32 mmol/L LAB CHEMISTRY METHOD 11/24/2024 7:[address] [facility] Anion Gap 13(H) 3 - 11 LAB CHEMISTRY METHOD 11/24/2024 7:[address] [facility] Glucose 62(L) 70 - 100 mg/dL LAB CHEMISTRY METHOD 11/24/2024 7:[address] [facility] BUN 9 5 - 25 mg/dL LAB CHEMISTRY METHOD 11/24/2024 7:32 AM EDT [facility] Creatinine 0.53 0.50 - 1.10 mg/dL LAB CHEMISTRY METHOD 11/24/2024 7:32 AM EDT [facility] eGFR 110 >=60 mL/min/1. 73m2 LAB CHEMISTRY METHOD 11/24/2024 7:32 AM EDT [facility] Comment:Calculation based on the Chronic Kidney Disease Epidemiology Collaboration (CKD-EPI) equation refit without adjustment for race. BUN/Creatinine Ratio 17.0 LAB CHEMISTRY METHOD 11/24/2024 7:32 AM EDT [facility] Calcium 9.0 8.5 - 10.5 mg/dL LAB CHEMISTRY METHOD 11/24/2024 7:32 AM EDT [facility] Blood Venous blood specimen / Unknown Venipuncture / Unknown 11/24/2024 6:12 AM EDT 11/24/2024 6:46 AM EDT us Sahil Maria MD LAB BLOOD ORDERABLES Final Resul t [facility] [address] [place] [address], * ECG 12 lead (11/23/2024 11:07 PM EDT) Only the most recent of5 resultswithin the time period is included. Ventricular Rate ECG 63 BPM GEMUSE Atrial Rate 63 BPM GEMUSE P-R Interval 150 ms GEMUSE QRS Duration 84 ms GEMUSE Q-T Interval 378 ms GEMUSE QTc 386 ms GEMUSE P Wave [place] 79 degrees GEMUSE R [place] 64 degrees GEMUSE T [place] 69 degrees GEMUSE ECG Interpretation Sinus rhythm with marked sinus arrhythmia Otherwise normal ECG When compared with ECG of 23-NOV-2024 23:07, (unconfirmed) IN interval has decreased Vent. rate has decreased [...] Sahil Maria MD ECG ORDERABLES Final Result Performing Organization Address City/[facility]/ZIP Co de Phone Number GEMUSE * [place] top urine tube (11/23/2024 12:45 PM EDT) Extra Tube Hold for add-ons. 11/23/2024 2:01 PM EDT [facility] Comment:Auto resulted. Urine Urine specimen obtained by clean catch procedure / Unknown 11/23/2024 12:45 PM EDT 11/23/2024 12:56 PM EDT us Sahil Maria MD LAB URINE ORDERABLES Final Resul t Performing Organization Address City/[facility] Co de Phone Number [facility] [address] [place] [address], [place] [phone] * (ABNORMAL) Drug abuse screen 8a panel, urine (11/23/2024 12:45 PM EDT) Amphetamine Screen, Ur Negative Negative LAB CHEMISTRY METHOD 5 1:39 PM EDT [facility] Comment:Certain OTC medicati ons containing ephedrine, phenylephrine, pseudoephedrine and phenylpropanolamine can cause false positive results. Barbiturate Screen, Ur Negative Negative LAB CHEMISTRY METHOD 5 1:39 PM EDT [facility] Benzodiazepine Screen, Ur Negative Negative LAB CHEMISTRY METHOD 5 1:39 PM EDT [facility] Cocaine Screen, Ur Negative Negative LAB CHEMISTRY METHOD 5 1:39 PM EDT [facility] Opiate Screen, Ur Positive(A ) Negative LAB CHEMISTRY METHOD 1:39 PM EDT [facility] Cannabinoid (THC) Screen, Ur Negative Negative LAB CHEMISTRY METHOD 1:39 PM EDT [facility] Comment:Specimens from patie nts taking pantoprazole sodium (Protonix) have been shown to produce false positive results. Oxycodone Screen, Ur Positive(A ) Negative LAB CHEMISTRY METHOD 5 1:39 PM EDT [facility] Fentanyl, Ur Negative Negative LAB CHEMISTRY METHOD 5 1:39 PM EDT [facility] Urine Urine specimen obtained by clean catch procedure / Unknown Non-blood Collection / Unknown 11/23/2024 12:45 PM EDT 11/23/2024 12:54 PM EDT Narrative [facility] - 11/23/2024 1:39 PM [...] MD LAB URINE ORDERABLES Final Resul t [facility] [address] [place] [address], * (ABNORMAL) TRANSTHORACIC ECHOCARDIOGRAM (TTE) COMPLETE (11/23/2024 12:25 PM EDT) Left Atrium Minor [place] 4.3 cm CV PACS Left Atrium Major [place] 4.9 cm CV PACS LA Area Sys [...] Area 3.5 cm2 CV PACS MV Deceleration [place] 4.1 m/s2 CV PACS E Wave Deceleration [...] was difficult due to: poor acoustic windows. us Sahil Maria MD CV ECHO PROCEDURES Final Result * (ABNORMAL) Complete blood count (11/23/2024 6:35 AM EDT) WBC 11.3(H) 4.8 - 10.8 K/mcL LAB HEMETOLOGY METHOD 11/23/2024 7:[address] [facility] RBC 3.80 3.80 - 4.80 M/mcL LAB HEMETOLOGY METHOD 11/23/2024 7:[address] [facility] Hemoglobin 10.6(L) 11.5 - 16.0 g/dL LAB HEMETOLOGY METHOD 11/23/2024 7:[address] [facility] Hematocrit 35.4 35.0 - 47.0 % LAB HEMETOLOGY METHOD 11/23/2024 7:[address] [facility] MCV 93.2 79.0 - 98.0 FL LAB HEMETOLOGY METHOD 11/23/2024 7:[address] [facility] MCH 27.9 27.0 - 32.0 pcg LAB HEMETOLOGY METHOD 11/23/2024 7:26 AM EDT [facility] MCHC 29.9(L) 32.0 - 37.0 g/dL LAB HEMETOLOGY METHOD 11/23/2024 7:26 AM EDT [facility] RDW 15.2(H) 11.0 - 15.0 % LAB HEMETOLOGY METHOD 11/23/2024 7:26 AM EDT [facility] Platelets 190 130 - 400 K/mcL LAB HEMETOLOGY METHOD 11/23/2024 7:26 AM EDT [facility] MPV 10.6 7.0 - 11.0 FL LAB HEMETOLOGY METHOD 11/23/2024 7:26 AM EDT [facility] NRBC 0.0 <1.0 % LAB HEMETOLOGY METHOD 11/23/2024 7:26 AM EDT [facility] NRBC Absolute 0.00 <0.10 K/mcL LAB HEMETOLOGY METHOD 11/23/2024 7:26 AM EDT [facility] Blood Venous blood specimen / Unknown Venipuncture / Unknown 11/23/2024 6:35 AM EDT 11/23/2024 7:05 AM EDT us Tahmina Villegas MD LAB BLOOD ORDERABLES Final Res ult [facility] [address] [place] [address], * Magnesium (11/23/2024 6:35 AM EDT) Only the most recent of3 resultswithin the time period is included. Magnesium 2.1 1.9 - 2.6 mg/dL LAB CHEMISTRY METHOD 11/23/2024 7:53 AM EDT [facility] Blood Venous blood specimen / Unknown Venipuncture / Unknown 11/23/2024 6:35 AM EDT 11/23/2024 7:05 AM EDT us Yari GODOY LAB BLOOD ORDERABLES Fi nal Result [facility] [address] [place] [address], [place] [phone] * CT Angio Chest wo and/or w [...] by: Ramona Estrada MD on 11/23/2024 01:22:[address] PROCEDURES Final Result * (ABNORMAL) B-type natriuretic peptide (11/22/2024 11:58 PM EDT) BNP 109(H) <=100 pcg/mL LAB CHEMISTRY METHOD 11/23/2024 12:58 AM EDT [facility] Blood Venous blood specimen / Unknown Venipuncture / Unknown 11/22/2024 11:58 PM EDT 11/23/2024 12:00 AM EDT us Emily GODOY LAB BLOOD ORDERABLES Final Re sult Performing Organization Address [facility]/ZIP Co de Phone Number [facility] [address] [place] [address], [place] [phone] * Troponin I high sensitivity (11/22/2024 11:55 PM EDT) [facility] High Sensitivity Troponin I 8 <=54 ng/L LAB CHEMISTRY METHOD 11/23/2024 12:31 AM EDT [facility] Blood Venous blood specimen / Unknown Venipuncture / Unknown 11/22/2024 11:55 PM EDT 11/22/2024 11:59 PM EDT Narrative [facility] - 11/23/2024 12:31 AM EDT High levels of biotin in samples may falsely decrease hsTroponin values. Use caution when interpreting hsTroponin results in patients taking biotin who exhibit renal impairment (eGFR <60) or in patients taking more than 20 mg/day of biotin. Emily GODOY LAB BLOOD ORDERABLES Final Re sult Performing Organization Address [facility] Co de Phone Number [facility] [address] [place] [address], [place] [phone] * Lactate (11/22/2024 11:54 PM EDT) [facility] Lactate 0.5 0.4 - 2.0 mmol/L LAB CHEMISTRY METHOD 11/23/2024 12:31 AM EDT [facility] Blood Venous blood specimen / Unknown Venipuncture / Unknown 11/22/2024 11:54 PM EDT 11/23/2024 12:00 AM EDT Emily GODOY LAB BLOOD ORDERABLES Final Re sult Performing Organization Address City/[facility]/ZIP Co de Phone Number [facility] [address] [place] [address], [place] [phone] * POCT Glucose, blood (11/22/2024 11:42 PM EDT) [facility] Glucose POCT 97 70 - 100 mg/dL 11/22/2024 11:43 PM EDT [facility] Blood Capillary blood specimen / Unknown 11/22/2024 11:42 PM EDT 11/22/2024 11:44 PM EDT Tahmina Villegas MD LAB POINT OF CARE TE ST DOCKED DEVICE UNSOLICITED RESULTS Final Result Performing Organization Address [facility]/ZIP Co de Phone Number [facility] [address] [place] [address], * (ABNORMAL) D-Dimer (11/22/2024 9:58 PM EDT) [facility] D-Dimer, Quant (D-DU) 781(H) <=230 ng/mL DDU LAB COAGULATION METHOD 11/22/2024 10:35 PM EDT [facility] Blood Venous blood specimen / Unknown Venipuncture / Unknown 11/22/2024 9:58 PM EDT 11/22/2024 10:19 PM EDT Narrative [facility] - 11/22/2024 10:35 PM EDT D-Dimer <230 ng/mL (D-Dimer units) is the threshold for exclusion of DVT/PE. D-Dimer may be elevated in: Critically ill, severely infected, trauma patients, DIC, acute CVA, acute MO, unstable angina, AF, old age, , and smoking. D-Dimer may be decreased with: Initiation of heparin therapy and oral anticoagulants. us Yari GODOY LAB BLOOD ORDERABLES Fi nal Result Performing Organization Address City/[facility]/ZIP Co de Phone Number [facility] [address] [place] [address], * Blood culture (11/22/2024 2:18 PM EDT) Only the most recent of2 resultswithin the time period is included. Culture, Blood No growth at 5 days LAB MICROBIOLOGY METHOD 11/27/2024 3:01 PM EDT [facility] Blood Venous blood specimen / Unknown Venipuncture / Unknown 11/22/2024 2:18 PM EDT 11/22/2024 2:23 PM EDT us Tai Olivier MD LAB MICROBIOLOGY - GENERAL ORDERABLES Final Result [facility] [address] [place] [address], [place] [phone] * (ABNORMAL) Urinalysis with reflex microscopic and culture (11/22/2024 2:17 PM EDT) [facility] Specific [place] Urine 1.014 1.003 - 1.030 LAB URINALYSIS - AUTOMATED METHOD 11/22/2024 2:53 PM T [facility] pH, Urine 5.5 5.0 - 8.0 pH LAB URINALYSIS - AUTOMATED METHOD 11/22/2024 2:53 PM T [facility] Leukocytes, Urine Trace(A) Negative LAB URINALYSIS - AUTOMATED METHOD 11/22/2024 2:[address] [facility] Nitrite, Urine Negative Negative LAB URINALYSIS - AUTOMATED METHOD 11/22/2024 2:53 PM T [facility] Protein, Urine 30(A) <=Trace mg/dL LAB URINALYSIS - AUTOMATED METHOD 11/22/2024 2:[address] [facility] Glucose, Urine Negative Negative mg/dL LAB URINALYSIS - AUTOMATED METHOD 11/22/2024 2:53 PM T [facility] Ketones, Urine Trace(A) Negative mg/dL LAB URINALYSIS - AUTOMATED METHOD 11/22/2024 2:53 PM EDT [facility] Urobilinogen , Urine 1.0 0.2 - 1.0 mg/dL LAB URINALYSIS - AUTOMATED METHOD 11/22/2024 2:[address] [facility] Bilirubin, Urine Negative Negative LAB URINALYSIS - AUTOMATED METHOD 11/22/2024 2:[address] [facility] Blood, Urine Negative Negative LAB URINALYSIS - AUTOMATED METHOD 11/22/2024 2:53 PM EDT [facility] RBC, Urine 4.3(H) 0 - 4 /HPF LAB URINALYSIS - AUTOMATED METHOD 11/22/2024 2:[address] [facility] WBC, Urine 17.7(H) 0 - 4 /HPF LAB URINALYSIS - AUTOMATED METHOD 11/22/2024 2:[address] [facility] Squamous Epithelial, Urine >100(H) 0 - 60 /LPF LAB URINALYSIS - AUTOMATED METHOD 11/22/2024 2:[address] [facility] Bacteria, Urine Negative Negative /HPF LAB URINALYSIS - AUTOMATED METHOD 11/22/2024 2:[address] [facility] Hyaline Casts, Urine 3.0 0 - 3 /LPF LAB URINALYSIS - AUTOMATED METHOD 11/22/2024 2:[address] [facility] Other Casts, Urine Rare Coarse Granular casts. /LPF 11/22/2024 2:53 PM T [facility] Urine Urine specimen obtained by clean catch procedure / Unknown Non-blood Collection / Unknown 11/22/2024 2:17 PM EDT 11/22/2024 2:25 PM EDT us Tai Olivier MD LAB URINE ORDERABLES Final Result [facility] [address] [place] [address], [place] [phone] * [place] urine culture tube (11/22/2024 2:17 PM EDT) [facility] Extra Tube Hold for add-ons. 11/22/2024 4:01 PM EDT [facility] Comment:Auto resulted. Urine Urine specimen obtained by clean catch procedure / Unknown Non-blood Collection / Unknown 11/22/2024 2:17 PM EDT 11/22/2024 2:26 PM EDT Tai Olivier MD LAB URINE ORDERABLES Final Result Performing Organization Address [facility]/ZIP Co de Phone Number [facility] [address] [place] [address], [place] [phone] * Culture urine (11/22/2024 2:17 PM EDT) [facility] Culture, Urine 10,000-49,000 CFU/mL Mixed bacterial morphotypes present suggestive of possible contamination during collection. Suggest appropriate recollection if clinically indicated. 11/23/2024 9:32 AM EDT [facility] Urine Urine specimen obtained by clean catch procedure / Unknown Non-blood Collection / Unknown 11/22/2024 2:17 PM EDT 11/22/2024 2:53 PM EDT Tai Olivier MD LAB MICROBIOLOGY - GENERAL ORDERABLES Final Result Performing Organization Address City/[facility]/ZIP Co de Phone Number [facility] [address] [place] [address], [place] [phone] * Respiratory virus panel molecular study (11/22/2024 2:07 PM EDT) [facility] [facility] Detection by PCR Not Detected Not Detected LAB MICROBIOLOGY METHOD 11/22/2024 3:19 PM EDT [facility] Influenza A PCR Not Detected Not Detected LAB MICROBIOLOGY METHOD 11/22/2024 3:19 PM EDT [facility] Influenza B PCR Not Detected Not Detected LAB MICROBIOLOGY METHOD 11/22/2024 3:19 PM EDT [facility] Coronavirus 229E Not Detected Not Detected LAB MICROBIOLOGY METHOD 11/22/2024 3:19 PM EDT [facility] Coronavirus HKU1 Not Detected Not Detected LAB MICROBIOLOGY METHOD 11/22/2024 3:19 PM EDT [facility] Coronavirus OC43 Not Detected Not Detected LAB MICROBIOLOGY METHOD 11/22/2024 3:19 PM EDT [facility] Coronavirus NL63 Not Detected Not Detected LAB MICROBIOLOGY METHOD 11/22/2024 3:19 PM EDT [facility] Parainfluenza Virus 1 Not Detected Not Detected LAB MICROBIOLOGY METHOD 11/22/2024 3:19 PM EDT [facility] Parainfluenza Virus 2 Not Detected Not Detected LAB MICROBIOLOGY METHOD 11/22/2024 3:19 PM EDT [facility] Parainfluenza Virus 3 Not Detected Not Detected LAB MICROBIOLOGY METHOD 11/22/2024 3:19 PM EDT [facility] Parainfluenza Virus 4 Not Detected Not Detected LAB MICROBIOLOGY METHOD 11/22/2024 3:19 PM EDT [facility] RSV PCR Not Detected Not Detected LAB MICROBIOLOGY METHOD 11/22/2024 3:19 PM EDT [facility] Human Metapneumovirus A and B Not Detected Not Detected LAB MICROBIOLOGY METHOD 11/22/2024 3:19 PM EDT [facility] Rhinovirus/Entero virus Not Detected Not Detected LAB MICROBIOLOGY METHOD 11/22/2024 3:19 PM EDT [facility] Bordetella pertussis Not Detected Not Detected LAB MICROBIOLOGY METHOD 11/22/2024 3:19 PM EDT [facility] Bordetella parapertussis Not Detected Not Detected LAB MICROBIOLOGY METHOD 11/22/2024 3:19 PM EDT [facility] Mycoplasma pneumo by PCR Not Detected Not Detected LAB MICROBIOLOGY METHOD 11/22/2024 3:19 PM EDT [facility] Chlamydia pneumoniae Not Detected Not Detected LAB MICROBIOLOGY METHOD 11/22/2024 3:19 PM EDT [facility] SARS COV-2 Not Detected Not Detected LAB MICROBIOLOGY METHOD 11/22/2024 3:19 PM EDT [facility] Swab Both anterior nares / Unknown Non-blood Collection / Unknown 11/22/2024 2:07 PM EDT 11/22/2024 2:24 PM EDT Narrative [facility] - 11/22/2024 3:19 PM EDT Testing was performed using the [employer] Respiratory Pathogen PCR Assay. All results must [...] that are below the limit of detection. Tai Olivier MD LAB MICROBIOLOGY - GENERAL ORDERABLES Final Result [facility] [address] [place] [address], [place] [phone] * Lactate, with Reflex (11/22/2024 1:52 PM EDT) LACTIC ACID 0.6 0.4 - 2.0 mmol/L LAB CHEMISTRY METHOD 11/22/2024 2:53 PM EDT [facility] Blood Venous blood specimen / Unknown Venipuncture / Unknown 11/22/2024 1:52 PM EDT 11/22/2024 2:02 PM EDT Tai Olivier MD LAB BLOOD ORDERABLES Final Result [facility] [address] [place] [address], [place] [phone] * (ABNORMAL) Comprehensive Metabolic Panel (CMP) (11/22/2024 1:52 PM EDT) Sodium 137 133 - 145 mmol/L LAB CHEMISTRY METHOD 11/22/2024 2:[address] [facility] Potassium 3.6 3.5 - 5.5 mmol/L LAB CHEMISTRY METHOD 11/22/2024 2:[address] [facility] Chloride 106 96 - 110 mmol/L LAB CHEMISTRY METHOD 11/22/2024 2:[address] [facility] CO2 27 21 - 32 mmol/L LAB CHEMISTRY METHOD 11/22/2024 2:[address] [facility] Anion Gap 4 3 - 11 LAB CHEMISTRY METHOD 11/22/2024 2:[address] [facility] Glucose 89 70 - 100 mg/dL LAB CHEMISTRY METHOD 11/22/2024 2:[address] [facility] BUN 26(H) 5 - 25 mg/dL LAB CHEMISTRY METHOD 11/22/2024 2:[address] [facility] Creatinine 1.78(H) 0.50 - 1.10 mg/dL LAB CHEMISTRY METHOD 11/22/2024 2:[address] [facility] eGFR 34(L) >=60 mL/min/1. 73m2 LAB CHEMISTRY METHOD 11/22/2024 2:[address] [facility] Comment:Calculation based on the Chronic Kidney Disease Epidemiology Collaboration (CKD-EPI) equation refit without adjustment for race. BUN/Creatinine Ratio 14.6 LAB CHEMISTRY METHOD 11/22/2024 2:[address] [facility] Calcium 7.9(L) 8.5 - 10.5 mg/dL LAB CHEMISTRY METHOD 11/22/2024 2:[address] [facility] AST (SGOT) 13 10 - 42 unit/L LAB CHEMISTRY METHOD 11/22/2024 2:46 PM EDT [facility] ALT (SGPT) 7(L) 10 - 60 unit/L LAB CHEMISTRY METHOD 11/22/2024 2:46 PM EDT [facility] Alkaline Phosphatase 77 42 - 121 unit/L LAB CHEMISTRY METHOD 11/22/2024 2:46 PM EDT [facility] Total Protein 5.2(L) 6.0 - 8.0 g/dL LAB CHEMISTRY METHOD 11/22/2024 2:46 PM EDT [facility] Albumin 2.5(L) 3.2 - 5.0 g/dL LAB CHEMISTRY METHOD 11/22/2024 2:46 PM EDT [facility] Total Bilirubin 0.6 0.0 - 1.4 mg/dL LAB CHEMISTRY METHOD 11/22/2024 2:46 PM EDT [facility] Blood Venous blood specimen / Unknown Venipuncture / Unknown 11/22/2024 1:52 PM EDT 11/22/2024 2:07 PM EDT us Tai Olivier MD LAB BLOOD ORDERABLES Final Result [facility] [address] [place] [address], from Last 3 Months Insurance [place]ICA[place] - [place] Advance Directives * Full Code - Default [...] currently active code status orders. Care Teams Manager Water Wastewater Relationship Specialty Start Date End Date Zev Sanders MD [address] [place] [address] PCP - General Internal Medicine 10/27/19
--- OUTSIDE RECORDS SUMMARY | 2024-12-26 17:29 | XMS_ITS | Encounter Summary ---
Author Organization [employer] Address [address] [facility] 7t [place] [address] Care Team Providers Care Neon Tube Bender Name Role Phone Zev Sanders MD Primary Care Provider [phone] Michelle Quiroz RN Unavailable [phone] Gonzalo Lima Unavailable Benedict Lima RN Unavailable [phone] Reason for Visit * Reason Onset Date Comments Appointment Request 11/01/2022 Encounter Details Date Type Department Care Team (Late st Contact Info) Description 11/01/2022 Telephone [facility] CHC MED & PEDS [address] [place], [place] [phone] Zev Sanders MD [address] [place], [place] [phone] Appointment Request Social History Tobacco Use Types [...] PE on 10/24/2022. Please contact pt at [phone] documented in this encounter Plan of Treatment Upcoming Encounters Date Type Department Care Team ([facility] st Contact Info) Description 01/17/2025 3:15 PM EDT Office Visit [facility] CHC MED & PEDS [address] [place] [address] Zev Sanders MD [address] [place] [address] documented as of this encounter Visit Diagnoses Not on filedocumented in this encounter Care Teams Neon Tube Bender Relationship Specialty Start Date End Date Zev Sanders MD [address] [place] [address] PCP - General Internal Medicine 11/16/19 Michelle Quiroz, BIANCA [address] [place] [address] Registered Nurse Family Medicine 10/04/24 12/06/24 Gonzalo Lima 10/04/24 Benedict Lima, RN [address] [place] [address] Registered Nurse Family Medicine 12/06/24 documented as of this encounter
--- OUTSIDE RECORDS SUMMARY | 2024-12-26 17:29 | XMS_ITS | Encounter Summary ---
Author Organization [employer] Address [address] [facility] 7 [place] [address] Care Team Providers Care Energy Analyst Name Role Phone Zev Sanders MD Primary Care Provider Michelle Quiroz RN Unavailable [phone] Gonzalo Lima Unavailable Benedict Lima RN Unavailable [phone] Reason for Visit * Reason Comments Med Refill Encounter Details Date Type Department Care Team (Late Contact Info) Description 11/05/2022 Refill [facility] MED & PEDS [address] [place], [place] [phone] Zev Sanders MD [address] [place] [address] Chronic low back pain, unspecified back pain [...] Visit [facility] MED [facility]EDS [address] [place] [address] Zev Sanders MD [address] [place] [address] documented as of this encounter Visit Diagnoses Diagnosis Chronic low back pain, unspecified back pain laterality, unspecified whether sciatica present documented in this encounter Care Teams Energy Analyst Relationship Specialty Start Date End Date Zev Sanders MD [address] [place] [address] PCP - General Internal Medicine 11/16/19 Michelle Quiroz RN [address] [place] [address] Registered Nurse Family Medicine 10/04/24 12/06/24 Gonzalo Lima 10/04/24 Benedict Lima, BIANCA [address] [place] [address] Registered Nurse Family Medicine 12/06/24 documented as of this encounter
--- OUTSIDE RECORDS SUMMARY | 2024-12-26 17:29 | XMS_ITS | Encounter Summary ---
Author Organization [employer] Address [address] [facility] 7t [place] [address] Care Team Providers Care Em Physician Name Role Phone Zev Sanders MD Primary Care Provider [phone] Michelle Quiroz RN Unavailable [phone] Gonzalo Lima Unavailable Benedict Lmia RN Unavailable [phone] Encounter Details Date Type Department Care Team (Late st Contact Info) Description 10/22/2022 Orders Only [facility] MED & PEDS [address] [place] [address] Zev Sanders MD [address] [place], [place] [phone] Gastroenteritis (Primary Dx) Social History Tobacco Use [...] 01/17/2025 3:15 PM EDT Office Visit [facility] MED & PEDS [address] [place], [place] [phone] Zev Sanders MD [address] [place] [address] documented as of this encounter Visit Diagnoses Diagnosis Gastroenteritis- Primary Other and unspecified noninfectious gastroenteritis and colitis documented in this encounter Care Teams Em Physician Relationship Specialty Start Date End Date Zev Sanders MD [address] [place] [address] PCP - General Internal Medicine 11/16/19 Michelle Quiroz RN [address] [place] [address] Registered Nurse Family Medicine 10/04/24 12/06/24 Gonzalo Lima 10/04/24 Benedict Lima, BIANCA [address] [place] [address] Registered Nurse Family Medicine 12/06/24 documented as of this encounter
== END 2024-12-26 17:30 | disposition home or self-care (01) ==
PROVIDERS: Emergency Provider Emergency Medicine Emergency Medical Services; PCP Internal Medicine
DX: R79.89 Other specified abnormal findings of blood chemistry (principal); J96.10 Chronic respiratory failure, unspecified whether with hypoxia or hypercapnia; Z99.81 Dependence on supplemental oxygen; Z79.899 Other long term (current) drug therapy
CPT/HCPCS: 99282; 99283

== ENCOUNTER 2025-01-11 15:17 | Outpatient (REF) | payer MEDICAID, SELFPAY ==
--- OUTSIDE RECORDS SUMMARY | 2025-01-06 14:00 | XMS_ITS | Encounter Summary ---
Author Organization [employer] Address [address] [facility] [address] 7[address] [place] [address] Care Team Providers Care Major Gifts Director Name Role Phone Zev Sanders MD Primary Care Provider [phone] Gonzalo Lima Unavailable Benedict Lima RN Unavailable [phone] Reason for Visit * Reason Comments Hypertension Encounter Details Date Type Department Care Team (Latest Contact Info) Description 01/06/2025 2:00 PM EDT Clinical Support [facility] MED & PEDS [address] [place] [address] Humaira Lopez RN Essential hypertension Social History Tobacco Use Types Packs/Day Years [...] Sign Reading Time Taken Comments Blood Pressure 96/60 01/06/2025 2:48 PM EDT Pulse 80 01/06/2025 2:46 PM EDT Temperature - - Respiratory Rate - - Oxygen Saturation - - Inhaled Oxygen Concentration - - Weight 54.3 kg (119 lb 9.6 oz) 01/06/2025 2:46 P M EDT Height - - Body Mass Index 21.02 12/07/2024 4:06 PM EDT documented in this encounter Progress Notes * Humaira Lopez RN - 01/06/2025 2:00 PM EDT SUBJECTIVE: Deysi Izquierdo is a 54 y.o. year old female who presents for Hypertension Preferred language for medical information: Tajik Weld Fitter needed: No Deysi presents with her to the appointment today. Deysi is presenting today to follow up after BP concerns of hypotension and recent ER visit. Deysi has brought in her home BP monitor. Monitor history: 110/60 85 117/75 93 120/67 82 95/60 79 92/67 88 101/65 88 24 hr food inventory: No lunch today, no breakfast today, reports drinking 1 cup of black coffee. Dinner last night included mini bagels with ham and cheese and mozzarella sticks with pepsi soda to drink. Denies drinking water in past 24 hrs. Denies alcohol or tobacco use. Does report cannabis use on occasion. Deysi reports that she has difficulty exercising due to oxygen supplement need but does not report shortness of breath with ADLs and IADLs. Today, Deysi Izquierdo does not complain of any blurred vision, shortness of breath, chest pain, dizziness, or headaches. Current Medications[1] Patient Active Problem List Diagnosis Date Noted Olecranon bursitis, right elbow 03/29/2022 Asthma-chronic obstructive pulmonary disease overlap syndrome (CMS/HCC) ([facility]) 12/19/2017 Chronic back pain 12/19/2017 Essential hypertension 12/19/2017 Menopausal symptom 12/19/2017 Migraine 12/19/2017 Mood disorder ([facility]) 12/19/2017 Seasonal allergies 12/19/2017 Tobacco dependence syndrome 12/19/2017 Penicillins and Shellfish allergy Deysi Izquierdo does confirm adherence to medications for hypertension listed above. Confirmed medications taken today [x] Recent emergency room or hospitalizations: Yes Notes scanned into chart: Yes Tobacco Use History[2] Social History Substance and Sexual Activity Alcohol Use Never Social History Substance and Sexual Activity Drug Use Never BP Readings from Last 4 Encounters: 01/06/25 96/60 12/07/24 (!) 145/83 10/21/24 126/75 05/10/24 125/75 Pulse Readings from Last 4 Encounters: 01/06/25 80 12/07/24 80 10/21/24 95 05/10/24 84 OBJECTIVE: Vitals: 01/06/25 1446 01/06/25 1447 01/06/25 1448 BP: 112/68 110/64 96/60 BP Location: Left arm Right arm Left arm Patient Position: Sitting Sitting Standing BP Cuff Size: Adult Adult Adult Pulse: 80 Weight: 119 lb 9.6 oz (54.3 kg) ASSESSMENT: Achieve goal blood pressure of 130/80 BP within blood pressure goal. PLAN: Deysi Delvalle is advised the following: -Increase daily oral hydration, examples given of water, adding fruit to flavor water, jell-o and education provided on sources of hydration and importance to prevent low blood pressure. -Advised to continue taking BP daily with blood pressure monitor. -Reviewed signs and symptoms of hypotension and advised for to to contact office if experiencing dizziness, lightheadedness, foggy feeling in thoughts for triage. -Keep follow up appointment with PCP Deysi Izquierdo agreeable to plan discussed at today's visit. Future Appointments Date Time Provider Department Center 01/17/2025 3:15 PM Zev Sanders MD [facility] Humaira Lopez RN [1] Current Outpatient Medications Medication Sig Dispense Refill budesonide-formoterol (Symbicort) 160-4.5 MCG/ACT inhaler Inhale 2 puffs in the morning and at bedtime. cholecalciferol VITAMIN D (Vitamin D-3) 50 MCG (1999 UT) tablet Take 1 tablet (50 mcg) by mouth in the morning. 90 tablet 0 docusate sodium (Colace) 100 [...] needed for wheezing. 72 mL 11 lisinopril 20 MG tablet Take 1 tablet (20 mg) by mouth in the morning. 30 tablet 3 mirtazapine (Remeron) 45 MG tablet Take 1 [...] by mouth at bedtime. 30 tablet 0 SUMAtriptan (Imitrex) 25 MG tablet Take 1 tablet (25 mg) by mouth 1 (one) time if needed for migraine for up to 1 dose. May repeat dose once in 2 hours if no relief. Do not exceed 2 doses in 24 hours. 9 tablet 0 tiotropium (Spiriva Respimat) 2.5 MCG/ACT inhaler INHALE TWO PUFF BY MOUTH EVERY MORNING 4 g 5 Ventolin HFA 108 (90 Base) MCG/ACT inhaler Inhale 2 puffs every 6 (six) hours if needed for wheezing. No current facility-administered medications for this visit. [2] Social History Tobacco Use Smoking Status Former Current packs/day: 0.00 Types: Cigarettes Start date: 1989 Quit date: 2019 Years since quittin.7 Smokeless Tobacco Never documented in this encounter Plan of Treatment Upcoming Encounters Date Type Department Care Team (Late st Contact Info) Description 01/17/2025 3:15 PM EDT Office Visit [facility] MED & PEDS [address] [place] [address] Zev Sanders MD [address] [place] [address] documented as of this encounter Visit Diagnoses Diagnosis Essential hypertension Unspecified essential hypertension documented in this encounter Additional Health Concerns Assessment Noted Time PHQ-9 Depression Total Score: 2 10/15/19 25 11:49 AM EDT documented as of this encounter Care Teams Major Gifts Director Relationship Specialty Start Date End Date Zev Sanders MD [address] [place] [address] PCP - General Internal Medicine 11/16/19 Gonzalo Lima 10/04/24 Benedict Lima, RN [address] [place] [address] Registered Nurse Family Medicine 12/06/24 documented as of this encounter
--- NOTE | ~2025-01-11 | CT_ITS ---
EXAMINATION: CT CHEST WITHOUT CONTRAST CLINICAL INFORMATION: R91.8 - Other nonspecific abnormal finding of lung field COMPARISON: November 04, 2024 TECHNIQUE: Multidetector volumetric CT imaging of the chest was done. Axial MIP volume rendering provided. Sagittal and coronal reformatted images were obtained. This CT examination was performed using dose optimization techniques as appropriate, variously including the following: *Automated exposure control *Adjustment of mA and/or kV according to patient size (this includes techniques or standardized protocols for targeted exams where dose is matched to indication/reason for exam; i.e. extremities or head) *Use of iterative reconstruction technique FINDINGS: LUNGS: Lungs are hyperexpanded with mild intralobular septal thickening. Focal airspace opacity with air bronchograms in the posterior medial right lung base has resolved. There is new groundglass and linear density in the posterolateral mid right lower lobe. Focal opacity in the superior aspect of the right lower lobe with tenting of the adjacent major fissure and air bronchograms is slightly improved. There is a new focal opacity with air bronchograms in the posterior lateral aspect of the right upper lobe contacting the major fissure. There is new curvilinear density in the lateral aspect right upper lobe. Nodular density in the superior lateral left lower lobe measures 5 mm, previously 8 mm, decreasing in size. Previous focal airspace opacity in the lateral base of the left lower lobe now demonstrates minimal residual groundglass density. MEDIASTINUM: There is no adenopathy, masses, or other abnormality. CORONARY ARTERY CALCIFICATION: Present PLEURA: There is no pleural effusion. No pleural mass or thickening. AXILLA: No lymphadenopathy. UPPER ABDOMEN: Unremarkable. OSSEOUS STRUCTURES: There is a subacute healing right lateral seventh rib fracture, not visible on the prior. CT/CT chest wo IV con IMPRESSION: Mostly improving multifocal airspace opacities in the lungs with a new groundglass and linear density in the posterior lateral mid right lower lobe and lateral right upper lobe contacting the major fissure. These could be infectious in nature but malignancy is not ruled out. There is a subacute right lateral seventh rib fracture, new since the prior. Fleischner guidelines were followed. Electronically signed by: Nav Diane MD 01/11/2025 05:01 PM EDT
--- OUTSIDE RECORDS SUMMARY | 2025-01-11 18:08 | XMS_ITS | Encounter Summary ---
Author Organization [employer] Address [address] [facility] 7t [place] [address] Care Team Providers Care Analytical Tech Name Role Phone Zev Sanders MD Primary Care Provider [phone] Michelle Quiroz RN Unavailable [phone] Gonzalo Lima Unavailable Benedict Lima RN Unavailable [phone] Encounter Details Date Type Department Care Team (Late st Contact Info) Description 07/21/2023 Orders Only [facility] CHC MED & PEDS [address] [place], [place] [phone] Zev Sanders MD [address] [place], [place] [phone] Social History Tobacco Use Types Packs/Day Years [...] Description 01/17/2025 3:15 PM EDT Office Visit [facility] MED & PEDS [address] [place] [address] Zev Sanders MD [address] [place] [address] documented as of this encounter Visit Diagnoses Not on filedocumented in this encounter Care Teams Analytical Tech Relationship Specialty Start Date End Date Zev Sanders MD [address] [place] [address] PCP - General Internal Medicine 11/16/19 Michelle Quiroz RN [address] [place] [address] Registered Nurse Family Medicine 10/04/24 12/06/24 Gonzalo Lima 10/04/24 Benedict Lima, BIANCA [address] [place] [address] Registered Nurse Family Medicine 12/06/24 documented as of this encounter
--- OUTSIDE RECORDS SUMMARY | 2025-01-11 18:08 | XMS_ITS | Encounter Summary ---
Author Organization [employer] Address [address] [facility] 7t [place] [address] Care Team Providers Care Metal Buffer Name Role Phone Zev Sanders MD Primary Care Provider [phone] Michelle Quiroz RN Unavailable [phone] Gonzalo Lima Unavailable Benedict Lima RN Unavailable [phone] Reason for Visit * Reason Onset Date Comments Med Refill 07/21/2023 Encounter Details Date Type Department Care Team (Late st Contact Info) Description 07/21/[address] [facility] MEDICINE [address] [place] [address] Zev Sanders MD [address] [place] [address] Med Refill Social History Tobacco Use Types [...] 150 MG capsule To be sent to: [facility] - [address] documented in this encounter Plan of Treatment Upcoming Encounters Date Type Department Care Team ([facility] st Contact Info) Description 01/17/2025 3:15 PM EDT Office Visit [facility] CHC MED & PEDS [address] [place] [address] Zev Sanders MD [address] [place] [address] documented as of this encounter Visit Diagnoses Not on filedocumented in this encounter Care Teams Metal Buffer Relationship Specialty Start Date End Date Zev Sanders MD [address] [place] [address] PCP - General Internal Medicine 11/16/19 Michelle Quiroz RN [address] [place] [address] Registered Nurse Family Medicine 10/04/24 12/06/24 Gonzalo Lima 10/04/24 Benedict Lima RN [address] [place] [address] Registered Nurse Family Medicine 12/06/24 documented as of this encounter
--- OUTSIDE RECORDS SUMMARY | 2025-01-11 18:08 | XMS_ITS | Encounter Summary ---
Author Organization [employer] Address [address] [place] [address] 7t [place] [address] Care Team Providers Care Senior Office Assistant Name Role Phone Zev Sanders MD Primary Care Provider [phone] Michelle Quiroz RN Unavailable [phone] Gonzalo Lima Unavailable Benedict Lima RN Unavailable [phone] Encounter Details Date Type Department Care Team (Late st Contact Info) Description 12/24/2022 Orders Only [facility] MEDICINE [address] [place] [address] Provider, MD Josh Social History Tobacco Use [...] Description 01/17/2025 3:15 PM EDT Office Visit [facility] CHC MED & PEDS [address] [place], [place] [phone] Zev Sanders MD [address] [place], [place] [phone] documented as of this encounter Procedures Procedure Name Priority Date/Time Associated Diagnosis Comments HM PAP/HPV Routine 01/15/2022 documented in this encounter Results * Hm Pap Smear (01/15/2022) us Historical Provider HEALTH MAINTENANCE Final Result documented in this encounter Visit Diagnoses Not on filedocumented in this encounter Care Teams Senior Office Assistant Relationship Specialty Start Date End Date Zev Sanders MD [address] [place] [address] PCP - General Internal Medicine 11/16/19 Michelle Quiroz RN [address] [place] [address] Registered Nurse Family Medicine 10/04/24 12/06/24 Gonzalo Lima 10/04/24 Benedict Lima, BIANCA [address] [place] [address] Registered Nurse Family Medicine 12/06/24 documented as of this encounter
--- OUTSIDE RECORDS SUMMARY | 2025-01-11 18:08 | XMS_ITS | Encounter Summary ---
Author Organization [employer] Address [address] [place] [address] 7 [place] [address] Care Team Providers Care Hunter Skin Diver Name Role Phone Zev Sanders MD Primary Care Provider [phone] Michelle Quiroz RN Unavailable [phone] Gonzalo Lima Unavailable Benedict Lima RN Unavailable [phone] Reason for Visit * Reason Onset Date Comments Appointment Request 11/01/2022 Encounter Details Date Type Department Care Team (Late st Contact Info) Description 11/01/2022 Telephone [facility] CHC MED & PEDS [address] [place], [place] [phone] Zev Sanders MD [address] [place], [place] [phone] Appointment Request Social History Tobacco Use Types [...] Miscellaneous Notes * Telephone Encounter - Franck Raza Myles - 11/01/2022 3:37 PM EDT Tc from pt requesting to r/s appt for PE on 10/24/2022. Please contact pt at [phone] documented in this encounter Plan of Treatment Upcoming Encounters Date Type Department Care Team ([facility] st Contact Info) Description 01/17/2025 3:15 PM EDT Office Visit [facility] MED & PEDS [address] [place] [address] Zev Sanders MD [address] [place] [address] documented as of this encounter Visit Diagnoses Not on filedocumented in this encounter Care Teams Hunter Skin Diver Relationship Specialty Start Date End Date Zev Sanders MD [address] [place] [address] PCP - General Internal Medicine 11/16/19 Michelle Quiroz RN [address] [place] [address] Registered Nurse Family Medicine 10/04/24 12/06/24 Gonzalo Lima 10/04/24 Benedict Lima, BIANCA [address] [place] [address] Registered Nurse Family Medicine 12/06/24 documented as of this encounter
--- OUTSIDE RECORDS SUMMARY | 2025-01-11 18:08 | XMS_ITS | Encounter Summary ---
Author Organization [employer] Address [address] [facility] 7 [place] [address] Care Team Providers Care Nuclear Radiation Engineer Name Role Phone Zev Sanders MD Primary Care Provider [phone] Michelle Quiroz RN Unavailable [phone] Gonzalo Lima Unavailable Benedict Lima RN Unavailable [phone] Encounter Details Date Type Department Care Team ([facility] Contact Info) Description 04/12/2022 [facility] [address] [place] [address] Zev Sanders MD [address] [place], [place] [phone] Social History Tobacco Use Types Packs/Day Years [...] Team ([facility] Contact Info) Description 01/17/2025 3:15 PM EDT Office Visit [facility] MED & PEDS [address] [place] [address] Zev Sanders MD [address] [place] [address] documented as of this encounter Procedures Procedure [...] (10/21/2022 2:13 PM EDT) Slide Review VERIFIED [facility] 10/21/2022 2:13 PM EDT 10/21/2022 5:23 PM EDT us Zev Sanders MD LAB BLOOD ORDERABLES Final Result [facility] [address], [place] [phone] * (ABNORMAL) VENOUS BLOOD GAS (09/04/2022 1:17 PM EDT) VBG pH 7.37 7.32 - 7.43 [facility] Comment:METER #: [id number] additional_comment: Cb murpe VBG PCO2 57 mmHg [facility] Comment:METER #: [id number] additional_comment: Cb murpe VBG PO2 48 mmHg [facility] Comment:METER #: [id number] additional_comment: Cb murpe VBG Base Excess 6.2 mmol/L [facility] Comment:METER #: [id number] additional_comment: Cb murpe VBG HCO3 33(H) 22 - 26 mmol/L [facility] Comment:METER #: [id number] additional_comment: Cb murpe O2 Sat, Lefty 77.0 % [facility] Comment:METER #: [id number] additional_comment: Cb murpe 09/04/2022 1:17 PM EDT 09/04/2022 1:23 PM EDT [facility] External Provider LAB BLO OD ORDERABLES Final Result Performing Organization Address [facility] de Phone Number [facility] [address] [place] [phone] * D Dimer High Sensitivity (09/04/2022 1:10 PM EDT) D Dimer High Sensitivity <150 NG/ML [facility] Comment:D-DIMER HS REFERENCE RANGENote: Our assay reports D-Dimer Units (D- DU).The cut-off value for venous thromboembolic (VTE) disease is230 ng/mL. This value has a very high negative predictivevalue when the patient has a low to moderate clinicalprobability of VTE.The upper limit of normal is 243 ng/mL. 09/04/2022 1:10 PM EDT 09/04/2022 1:18 PM EDT [facility] External Provider LAB BLO OD ORDERABLES Final Result Performing Organization Address [facility] Co de Phone Number [facility] [address] [place] [phone] * B Type Natriuretic Peptide (BNP) (09/04/2022 11:26 AM EDT) B Type Natriuretic Peptide 19 <100 pg/mL [facility] Comment:For those patients w ho are being treated with Natrecor(nesiritide, recombinant BNP), BNP testing should beperformed at least two hours post treatment in order toensure that only endogenous levels of BNP are detected. 09/04/2022 11:2 6 AM EDT 09/04/2022 1:27 PM EDT [facility] External Provider LAB BLO OD ORDERABLES Final Result [facility] [address] [place] [phone] * (ABNORMAL) Comprehensive Metabolic Panel (09/04/2022 11:26 AM EDT) Sodium 142 135 - 145 mmol/L [facility] Potassium 4.2 3.3 - 5.1 mmol/L [facility] Chloride 102 96 - 108 mmol/L [facility] Carbon Dioxide 34(H) 22 - 29 mmol/L [facility] Anion Gap 10(L) 12 - 20 [facility] Urea Nitrogen (BUN) 15 9 - 16 mg/dL [facility] Creatinine, Serum 0.68 0.5 - 1.4 mg/dL [facility] Creatinine Clr Calc Pharmacy 74.8 [facility] Comment:Provided height and weight: 162.56 cm,49 kg.eGFR (calculated from the MDRD study equation) and eCrCl(calculated from the Cockcroft-Gault equation) are based ondifferent parameters and may not yield comparable results.If eCrCl result is absurd, please check patient'sheight/weight. Estimated Glomerular Filt Rate >60 [facility] Comment:NOTE: For -Am erican individuals, multiply the result by 1.210.Chronic Kidney Disease: Estimated GFR < 60 mL/min/1.18r2Cnrjgx Kidney Disease: Estimated GFR < 15 mL/min/1.73m2 Glucose 112 60 - 115 mg/dL [facility] Calcium 9.4 8.4 - 10.2 mg/dL [facility] Bilirubin, Total 0.7 0.0 - 1.0 mg/dL [facility] Aspartate Amino Transferase 21 5 - 31 U/L [facility] Alanine Aminotransferase 17 0 - 31 U/L [facility] Total Protein 6.7 6.5 - 8.0 g/dL [facility] Albumin Level 4.1 3.5 - 5.0 g/dL [facility] Alkaline Phosphatase 73 39 - 117 U/L [facility] 09/04/2022 11:2 6 AM EDT 09/04/2022 11:33 AM EDT us [facility] External Provider LAB BLO OD ORDERABLES Final Result [facility] [address] [place] [phone] * COVID-19 ID NOW (Iencuentra) (09/04/2022 11:26 AM EDT) IDNOW SERIAL# [id number] [facility] COVID-19 TEST Negative Negative [facility] COVID-19 NOTE See Note [facility] Comment: Results are for the identification of SARS-CoV2 RNA. TheSARS-CoV2 RNA is generally detectable in respiratory samplesduring the acute phase of infection. Positive results areindicative of the presence of SARS-CoV-2 RNA; clinicalcorrelation with patient history and other diagnosticinformation is necessary to determine patient infectionstatus. Positive results do not rule out bacterial infectionor co- infection with other viruses.Testing facilities within the [facility] and itsterritories are required to report [...] use by authorized laboratories.Testing performed on the iwoca ID NOW utilizing NAAT. 09/04/2022 11:2 6 AM EDT 09/04/2022 11:33 AM EDT us [facility] Exter nal Provider LAB MOLECULAR DIAGNOSTICS ORDERABLES Final Result [facility] [address] [place] [phone] * (ABNORMAL) CBC auto differential (09/04/2022 11:26 AM EDT) White Blood Count 10.4 4.8 - 10.8 X10*3/uL [facility] Red Blood Count 5.42 4.20 - 5.50 X10*6/uL [facility] Hemoglobin 16.0 12.0 - 16.0 g/dl [facility] Hematocrit 49.3(H) 37.0 - 47.0 % [facility] Mean Corpuscular Volume 91.0 80.0 - 98.0 fL [facility] Mean Corpuscular Hemoglobin 29.5 27.0 - 33.0 pg [facility] Mean Corpuscular HGB Conc 32.5 31.0 - 35.0 g/dl [facility] Red Cell Distribution Width 14.6 11.0 - 16.0 % [facility] Platelet Count 238 160 - 400 X10*3/uL [facility] Mean Platelet Volume 9.5 9.4 - 12.3 fL [facility] Neutrophils Percent Auto 51.2 45 - 73 % [facility] Imm Gran Pct Auto 0.3 0.0 - 0.4 % [facility] Lymphocytes Percent Auto 38.4 20 - 40 % [facility] Monocytes Percent Auto 8.1 2 - 11 % [facility] Eosinophils Percent Auto 1.5 0 - 4 % [facility] Basophils Percent Auto 0.5 0 - 2 % [facility] NRBC Pct Auto 0.0 0.0 - 0.2 /100WBC [facility] Neutrophils Absolute Auto 5.4 2.0 - 8.3 x10*3/uL [facility] Imm Gran Abs Auto 0.03 0.00 - 0.03 X10*3/uL [facility] Lymphocytes Absolute Auto 4.0 1.2 - 4.9 X10*3/uL [facility] Monocytes Absolute Auto 0.8 0.1 - 1.2 X10*3/uL [facility] Eosinophils Absolute Auto 0.2 0.0 - 0.4 X10*3/uL [facility] Basophils Absolute Auto 0.1 0.0 - 0.2 X10*3/uL [facility] NRBC Abs Auto 0.000 0.0 - 0.012 X10*3/uL [facility] 09/04/2022 11:2 6 AM EDT 09/04/2022 11:33 AM EDT us [facility] External Provider LAB BLO OD ORDERABLES Final Result [facility] [address] [place] [phone] documented in this encounter Visit Diagnoses Not on filedocumented in this encounter Care Teams Nuclear Radiation Engineer Relationship Specialty Start Date End Date Zev Sanders MD [address] [place] [address] PCP - General Internal Medicine 11/16/19 Michelle Quiroz RN [address] [place] [address] Registered Nurse Family Medicine 10/04/24 12/06/24 Gonzalo Lima 10/04/24 Benedict Lima RN [address] [place] [phone] Registered Nurse Family Medicine 12/06/24 documented as of this encounter
--- OUTSIDE RECORDS SUMMARY | 2025-01-11 18:08 | XMS_ITS | Encounter Summary ---
Author Organization [employer] Address [address] [facility] 7 [place] [address] Care Team Providers Care Hobbies And Crafts Sales Representative Name Role Phone Zev Sanders MD Primary Care Provider [phone] Michelle Quiroz RN Unavailable [phone] Gonzalo Lima Unavailable Benedict Lima RN Unavailable [phone] Reason for Visit * Reason Onset Date Comments ER Follow-up 10/04/2024 Encounter Details Date Type Department Care Team (Late st Contact Info) Description 10/04/[address] [facility] MED & PEDS [address] [place], [place] [phone] Zev Sanders MD [address] [place], [place] [phone] ER Follow-up Social History Tobacco Use Types [...] to report ED visit on : Date: [facility]: 10/01/24 Seen for: Trouble breathing Symptomatic No [place] a [place] [facility] [place] pt at [phone] documented in this encounter Plan of Treatment Upcoming Encounters Date Type Department Care Team ([facility] st Contact Info) Description 01/17/2025 3:15 PM EDT Office Visit [facility] [address] [place] [address] Zev Sanders MD [address] [place] [address] documented as of this encounter Visit Diagnoses Not on filedocumented in this encounter Additional Health Concerns Assessment Noted Time PHQ-9 Depression Total Score: 7 10/14/19 24 11:59 AM EDT documented as of this encounter Care Teams [employer]obbies [employer] Craft[employer] Sales Representative Relationship Specialty Start Date End Date Zev Sanders MD [address] [place] [address] PCP - General Internal Medicine 11/16/19 Michelle Quiroz, BIANCA [address], [place] [phone] Registered Nurse Family Medicine 10/04/24 12/06/24 Gonzalo Lima 10/04/24 Benedict Lima RN [address], [place] [phone] Registered Nurse Family Medicine 12/06/24 documented as of this encounter
--- OUTSIDE RECORDS SUMMARY | 2025-01-11 18:08 | XMS_ITS | Clinical Summary ---
Author Organization [employer] Address [address] [place] [address] [address] [place] [address] Care Team Providers Care Dental Assistant Instructor Name Role Phone Zev Sanders MD Primary Care Provider [phone] Gonzalo Lima Unavailable Benedict Lima RN Unavailable [phone] Allergies Active Allergy Reactions Criticality Noted Date Comments Penicillins Rash High 05/13/2019 RASH ON MOUTH WHEN A CHILD Shellfish Allergy Rash Low 04/08/2024 Medications tiotropium (Spiriva Respimat) 2.5 MCG/ACT inhalerIndicati ons:COPD (chronic obstructive pulmonary disease) case management patient ([facility]) ([facility]) INHALE TWO PUFF BY MOUTH EVERY [...] mouth at bedtime. 30 tablet 025 Active Ventolin HFA 108 (90 Base) MCG/ACT inhaler Inhale 2 puffs every 6 (six) hours if needed for wheezing. Active docusate sodium (Colace) 100 MG capsule Take 1 tab po bid prn constipation 60 capsule 3 025 Active esomeprazole (NexIUM) [address] capsule TAKE ONE CAPSULE EVERY MORNING 90 capsule 1 025 Active SUMAtriptan (Imitrex) 25 MG tabletIndicatio [...] the morning. 30 tablet 3 025 Active pregabalin (Lyrica) 150 MG capsuleIndicati ons:Chronic low back pain, unspecified back pain laterality, unspecified whether sciatica present TAKE ONE CAPSULE TWICE DAILY IN THE MORNING AND AT BEDTIME 60 capsule 025 Active cholecalciferol VITAMIN D (Vitamin D-3) 50 MCG (1999) tablet Take 1 tablet (50 mcg) by mouth in the morning. 90 tablet 025 Active cholecalciferol VITAMIN D (Vitamin D-3) 50 MCG (1999 UT) tablet TAKE 1 TABLET EVERY MORNING 90 tablet 025 2024 Discontinued(R eorder (will not trigger notification to Pharmacy)) lisinopril 10 MG tablet TAKE ONE TABLET EVERY MORNING 90 tablet 1 025 2024 Discontinued(R eorder (will not trigger notification to Pharmacy)) pregabalin (Lyrica) 150 MG capsuleIndicati ons:Chronic low back pain, unspecified back pain laterality, unspecified whether sciatica present TAKE ONE CAPSULE TWICE DAILY IN THE MORNING AND AT BEDTIME 60 capsule 025 2024 Discontinued Active Problems Problem Noted Date Diagnosed Date Olecranon bursitis, right elbow 03/29/2022 Asthma-chronic obstructive p ulmonary disease overlap syndrome (CMS/HCC) 12/19/2017 Chronic back pain 12/19/2017 Essential hypertension 12/19/2017 Menopausal symptom 12/19/2017 Migraine 12/19/2017 Mood disorder 12/19/2017 Seasonal allergies 12/19/2017 Tobacco dependence syndrome 12/19/2017 Encounters Date Type Department Care Team Description 01/06/2025 2:00 PM EDT Clinical Support [facility] [address] [place] [address] Humaira Lopez RN Essential hypertension 01/06/2025 Travel 01/06/2025 Telephone [facility] [address] [place] [address] Zev Sanders MD 01/06/2025 Refill [facility] [address] [place] [address] Darlene Gant MD 01/06/2025 Refill [facility] [address] [place] [address] Zev Sanders MD Chronic low back pain, unspecified back pain laterality, unspecified whether sciatica present 01/03/2025 Telephone [facility] [address] [place] [address] Zev Sanders MD order 12/30/2024 Patient Outreach [facility] [address] [place], [place] [phone] Zev Sanders MD Care Coordination (C3/CHW Geovanna Dejesus f/u_[facility] ) 12/29/2024 11:15 AM EDT Telemedicine [facility] [address] [place] [address] Humaira Lopez, BIANCA Essential hypertension 12/29/2024 Travel 12/28/2024 Patient Outreach [address] [address] Zev Sanders MD Care Management (C3CM- f/u call lvm) 12/17/2024 Results Follow-Up [facility] [address] [place] [address] Isabelle Robbins RN Vascular US lower extremity venous duplex right 12/15/2024 Orders Only [facility] [address] [place] [address] Zev Sanders MD Essential hypertension (Primary Dx); Synovial cyst of right popliteal space 12/15/2024 Patient Outreach [address] [address] Zev Sanders MD 12/14/[address] [address] Zev Sanders MD Nurse Triage 12/10/[address] [address] Zev Sanders MD F/U CT scan 12/07/2024 3:45 PM EDT Office Visit [facility] [address] [place] [address] Zev Snaders MD Lower limb pain, anterior, right (Primary Dx); Essential hypertension; Asthma-chronic obstructive pulmonary disease overlap syndrome (CMS/HCC); Other migraine without status migrainosus, not intractable 12/07/2024 Travel 12/06/2024 Patient Outreach [address] [address] Zev Sanders MD Care Management (C3CM- f/u call) 12/06/2024 Telephone [facility] [address] [place], [place] [phone] Zev Sanders MD Chart Prep 12/02/2024 Refill [facility] [address] [place] [address] Zev Sanders MD Chronic low back pain, unspecified back pain laterality, unspecified whether sciatica present 11/30/2024 Telephone [facility] [address] [place] [address] Zev Sanders MD ER Follow-up 11/30/2024 Refill [facility] [address] [place] [address] Zev Sanders MD 11/26/2024 Patient Outreach [address] [address] Zev Sanders MD 11/26/2024 Patient Outreach [address] [address] Zev Sanders MD Transition Of Care (Tcm) (HDF unscheduled LVM ) 11/25/2024 Orders Only [facility] [address] [place] [address] Josh Leonard MD 11/24/2024 Orders Only [facility] [address] [place] [address] Josh Leonard MD 11/23/2024 Telephone [facility] [address] [place] [address] Zev Sanders MD No Show 11/23/2024 Patient Outreach [facility] [address] [place] [address] Zev Sanders MD 11/23/2024 Orders Only [facility] [address] [place] [address] Josh Leonard MD 11/22/2024 Patient Outreach [facility] [address] [place] [address] Zev Sanders MD 11/22/2024 Patient Outreach [facility] [address] [place] [address] Zev Sanders MD Care Coordination ([facility] GEOVANNA Dejesus f/u call) 11/22/2024 Patient Outreach [facility] [address] [place] [address] Zev Sanders MD Care Coordination ([facility] f/u call) 11/11/2024 1:15 PM EDT Telemedicine [facility] [address] [place] [address] Martha Zimmer RN Chest pain, unspecified type [R07.9] 11/11/2024 Travel 11/11/2024 Patient Outreach [address] [address] Zev Sanders MD Care Management ([facility]- f/u call lvm) 11/04/2024 Orders Only [facility] External Provider, [employer] 11/01/2024 Telephone [facility] [address] [place] [address] Zev Sanders MD No Show 11/01/2024 Refill [facility] [address] [place] [address] Darlene Gant MD Chronic low back pain, unspecified back pain laterality, unspecified whether sciatica present 10/28/2024 Refill [facility] [address] [place] [address] Darlene Gant MD Chronic low back pain, unspecified back pain laterality, unspecified whether sciatica present 10/28/2024 Patient Outreach [facility] [address] [place] [address] Zev Sanders MD Care Management (C3- f/u call) 10/22/2024 11:00 AM EDT Telemedicine [facility] [address] [place] [address] Humaira Lopez RN Fall, subsequent encounter [W19.XXXD] 10/21/2024 1:00 PM EDT Office Visit [facility] [address] [place] [address] Wendy Andre MD Constipation, unspecified constipation type (Primary Dx); Palpitations 10/21/2024 Travel 10/20/2024 Telephone [facility] [address] [place] [address] Zev Sanders MD Nurse Triage 10/15/2024 Telephone [facility] [address] [place] [address] Zev Sanders MD 10/14/2024 Plan of Care Documentation [facility] [address] [place] [address] 10/14/2024 Patient Outreach [address] [address] Zev Sanders MD Care Coordination (C3/CHW Gonzalo Lima, SDOH assessment, Enrolled CM Program ) 10/14/2024 Patient Outreach [facility] [address] [place] [address] Zev Sanders MD Care Coordination (C3 initial assessment) 10/13/2024 Patient Outreach [address] [address] Zev Sanders MD Care Coordination (C3/DESEAN Lima, Appt reminder ) 10/11/2024 Patient Outreach [facility] [address] [place] [address] Zev Sanders MD from Last 3 Months [...] Pulse 80 01/06/2025 2:46 PM EDT Temperature 36.1 C (97 F) 10/21/2024 1:11 PM EDT Respiratory Rate 20 12/07/2024 4:06 PM EDT Oxygen Saturation 96% 12/07/2024 4:06 PM EDT Inhaled Oxygen Concentration - - Weight 54.3 kg (119 lb 9.6 oz) 01/06/2025 2:46 P M EDT Height 160.7 cm (5' 3.25 ) 12/07/2024 4:06 PM ED T Body Mass Index 21.02 12/07/2024 4:06 PM EDT Plan of Treatment Upcoming Encounters Date Type Department Care Team ([facility] st Contact Info) Description 01/17/2025 3:15 PM EDT Office Visit [facility] [address] [place] [address] Zev Sanders MD [address] [place] [address] Health Maintenance Due Date Last Done Comments CT Colonography 1970 Colonoscopy 1970 FIT 1970 HIV Screening 1970 Sigmoidoscopy 1970 Hepatitis A Vaccines (1 of 2 - Risk 2-dose series) 1989 Hepatitis B Vaccines (1 of 3 - 19+ 3-dose series) 1989 Mammogram 10/18/2023 10/17/2021, 12/04/2017 FOBT 03/10/2024 03/10/2023 Zoster Vaccines (2 of 2) 06/24/2024 04/29/2024 COVID-19 Vaccine (1 - season) 2024 Influenza Vaccine (#1) 2024 , 01/23/2023, 12/19/2017, Additional history exists Disability Screening 05/01/2025 05/01/2024 Alcohol/Substance Use Screening 10/14/2025 10/14/2024 Depression Screening 10/14/2025 10/14/2024, 10/15/19 25 SDOH Screening 10/14/2025 10/14/2024 Tobacco Screening 12/08/2025 [...] Priority Date/Time Associated Diagnosis Comments CT CHEST WO CONTRAST Routine 01/11/2025 3:56 PM EDT AMB REFERRAL TO CARDIOLOGY Routine 12/29/2024 Palpitations VASC US LOWER EXTREMITY VENOUS DUPLEX RIGHT [...] VIEWS RIGHT Routine 10/21/2024 3:33 PM EDT LAB COLOGUARD COLON CANCER SCREEN [...] to Health Maintenance Results * CT Chest w/o Contrast (01/11/2025 3:56 PM EDT) Anatomical Region Laterality Modality Body, Chest Computed Tomogra phy 01/11/2025 3:56 PM EDT Narrative 01/11/2025 5:05 PM EDT [address] [address] [address] Scan Report Signed Patient: Deysi Pfeiffer MR#: [id number] : 1970 Acct:[id number] Age/Sex: 54 / F ADM Date: 01/11/25 Loc: HO.CT Attending Dr: Erickson Mathews MD Ordering Physician: Erickson Mathews MD Date of Service: 01/11/25 Procedure(s): CT chest wo IV con Accession Number(s): [id number] cc: Erickson Mathews MD; Zev Sanders MD Report Number: [id number]: Total DLP = 78.00 mGy-cm Reason for Exam: R91.8 - Other nonspecific abnormal finding of lung field EXAMINATION: CT CHEST WITHOUT CONTRAST CLINICAL INFORMATION: R91.8 - Other nonspecific abnormal finding of lung field COMPARISON: November 04, 2024 TECHNIQUE: Multidetector volumetric CT imaging of the chest was done. Axial MIP volume rendering provided. Sagittal and [...] head) *Use of iterative reconstruction technique FINDINGS: LUNGS: Lungs are hyperexpanded with mild intralobular septal thickening. Focal airspace opacity with air bronchograms in the posterior medial right lung base has resolved. There is new groundglass and linear density in the posterolateral mid right lower lobe. Focal opacity in the superior aspect of the right lower lobe with tenting of the adjacent major fissure and air bronchograms is slightly improved. There is a new focal opacity with air bronchograms in the posterior lateral aspect of the right upper lobe contacting the major fissure. There is new curvilinear density in the lateral aspect right upper lobe. Nodular density in the superior lateral left lower lobe measures 5 mm, previously 8 mm, decreasing in size. Previous focal airspace opacity in the lateral base of the left lower lobe now demonstrates minimal residual groundglass density. MEDIASTINUM: There is no adenopathy, masses, or other abnormality. CORONARY ARTERY CALCIFICATION: Present PLEURA: There is no pleural effusion. No pleural mass or thickening. AXILLA: No lymphadenopathy. UPPER ABDOMEN: Unremarkable. OSSEOUS STRUCTURES: There is a subacute healing right lateral seventh rib fracture, not visible on the prior. CT/CT chest wo IV con IMPRESSION: Mostly improving multifocal airspace opacities in the lungs with a new groundglass and linear density in the posterior lateral mid right lower lobe and lateral right upper lobe contacting the major fissure. These could be infectious in nature but malignancy is not ruled out. There is a subacute right lateral seventh rib fracture, new since the prior. Fleischner guidelines were followed. Electronically signed by: Nav Diane MD 01/11/2025 05:01 PM EDT RP Dictated By: Nav Diane MD Signed By: <Electronically signed by Nav Diane MD in OV> 01/11/25 1701 DD/ 1556 TD/TT: 01/11/25 1624 Cl[facility] Specialists: Procedure Note Donotuseinterpreter, Image - 01/11/[address] [place] [address] [address] Scan Report Signed Patient: Deysi Pfeiffer [facility]#: [id number] : 1970Acct:[id number] Age/Sex: 54 / FADM Date: 01/11/25 Loc: HO.CT Attending Dr: Erickson Mathews MD Ordering Physician: Erickson Mathews MD Date of Service: 01/11/25 Procedure(s): CT chest wo IV con Accession Number(s): [id number] cc: Erickson Mathews MD; Zev Sanders MD Report Number: [id number]: Total DLP = 78.00 mGy-cm Reason for Exam: R91.8 - Other nonspecific abnormal finding of lung field EXAMINATION: CT CHEST WITHOUT CONTRAST CLINICAL INFORMATION: R91.8 - Other nonspecific abnormal finding of lung field COMPARISON: November 04, 2024 TECHNIQUE: Multidetector volumetric CT imaging of the chest was done. Axial MIP volume rendering provided. Sagittal and [...] head) *Use of iterative reconstruction technique FINDINGS: LUNGS: Lungs are hyperexpanded with mild intralobular septal thickening. Focal airspace opacity with air bronchograms in the posterior medial right lung base has resolved. There is new groundglass and linear density in the posterolateral mid right lower lobe. Focal opacity in the superior aspect of the right lower lobe with tenting of the adjacent major fissure and air bronchograms is slightly improved. There is a new focal opacity with air bronchograms in the posterior lateral aspect of the right upper lobe contacting the major fissure. There is new curvilinear density in the lateral aspect right upper lobe. Nodular density in the superior lateral left lower lobe measures 5 mm, previously 8 mm, decreasing in size. Previous focal airspace opacity in the lateral base of the left lower lobe now demonstrates minimal residual groundglass density. MEDIASTINUM: There is no adenopathy, masses, or other abnormality. CORONARY ARTERY CALCIFICATION: Present PLEURA: There is no pleural effusion. No pleural mass or thickening. AXILLA: No lymphadenopathy. UPPER ABDOMEN: Unremarkable. OSSEOUS STRUCTURES: There is a subacute healing right lateral seventh rib fracture, not visible on the prior. CT/CT chest wo IV con IMPRESSION: Mostly improving multifocal airspace opacities in the lungs with a new groundglass and linear density in the posterior lateral mid right lower lobe and lateral right upper lobe contacting the major fissure. These could be infectious in nature but malignancy is not ruled out. There is a subacute right lateral seventh rib fracture, new since the prior. Fleischner guidelines were followed. Electronically signed by: Nav Diane MD 01/11/2025 05:01 PM EDT Dictated By: Nav Diane MD Signed By: <Electronically signed by Nav Diane MD in OV> 01/11/25 1701 DD/ 1556 TD/TT: 01/11/25 1624 Clarity Specialists: [facility] External Provider IMG CT PROCEDURES Final Result * Referral to Cardiology (12/29/2024) Wendy Andre MD OUTPATIENT REFERRAL ORDERABLES F inal Result * Vascular US lower extremity venous duplex right (12/15/2024) Zev Sanders MD CV VASCULAR PROCEDURES Mary Jane l Result * MRI BRAIN WO CONTRAST (11/24/2024 1:38 PM EDT) Anatomical Region Laterality Modality Magnetic Resonan ce Historical Provider IMG MRI PROCEDURES Final Result * XR Chest 1 View (11/24/2024 1:33 PM EDT) Anatomical Region Laterality Modality Chest Radiographic Joy ging Result [facility] Provider IMG XR PROCEDURES Final R esult * Transthoracic echo (TTE) complete (11/23/2024 3:04 PM EDT) Result [facility] Provider CV ECHO PROCEDURES Final Result * ECG 12 lead (11/23/2024 11:53 AM EDT) Only the most recent of5 resultswithin the time period is included. Result [facility] Historical Provider ECG ORDERABLES Final Res ult * CT Head w/o Contrast (11/22/2024 10:55 AM EDT) Anatomical Region Laterality Modality Head, Neck Computed Tomogra phy Result [facility] Provider IMG CT PROCEDURES Final R esult * CT CHEST ANGIO W AND WO IV CONTRAST (11/22/2024 10:47 AM EDT) Anatomical Region Laterality Modality Computed Tomogra phy Historical Provider IMG CT PROCEDURES Final R esult * CT Chest w/ Contrast (11/04/2024 2:52 PM EDT) Anatomical Region Laterality Modality Body, Chest Computed Tomogra phy 11/04/2024 2:52 PM EDT Narrative 11/04/2024 4:05 PM EDT [address] [address] [address] Scan Report Signed Patient: Deysi Pfeiffer MR#: [id number] : 1970 Acct:[id number] Age/Sex: 54 / F ADM Date: 11/04/24 Loc: HO.ED Attending Dr: Ordering Physician: Gloria Hassan PA-C Date of Service: 11/04/24 Procedure(s): CT chest w IV con Accession Number(s): [id number] cc: Zev Sanders MD; Gloria Hassan PA-C Report Number: [id number]: Total DLP = 155.70 mGy-cm EXAMINATION: CT [...] reconstruction technique DLP: 147.89 mGy centimeter. FINDINGS: WATER TENDER: Hyperinflation. Pulmonary reticular pattern. Patchy opacities, lower [...] 11/04/24 1602 DD/ 1452 TD/TT: 11/04/24 1546 Clarity Specialists: Procedure Note Donotuseinterpreter, Image - 11/04/[address] [place] [address] [address] Scan Report Signed Patient: Deysi Pfeiffer DMR#: [id number] : 1970Acct:[id number] Age/Sex: 54 / FADM Date: 11/04/24 Loc: HO.ED Attending Dr: Ordering Physician: Gloria Hassan PA-C Date of Service: 11/04/24 Procedure(s): CT chest w IV con Accession Number(s): [id number] cc: Zev Sanders MD; Gloria Hassan PA-C Report Number: [id number]: Total DLP = 155.70 mGy-cm EXAMINATION: CT [...] reconstruction technique DLP: 147.89 mGy centimeter. FINDINGS: WATER TENDER: Hyperinflation. Pulmonary reticular pattern. Patchy opacities, lower [...] 11/04/24 1602 DD/ 1452 TD/TT: 11/04/24 1546 Cl[facility] Specialists: [facility] External Provider IMG CT PROCEDURES Final Result * CT Head for ICH (11/04/2024 1:52 PM EDT) Anatomical Region Laterality Modality Head, Neck Computed Tomogra phy 11/04/2024 1:52 PM EDT Narrative 11/04/2024 4:05 PM EDT [address] [address] [address] Scan Report Signed Patient: Deysi Pfeiffer MR#: [id number] : 1970 Acct:[id number] Age/Sex: 54 / F ADM Date: 11/04/24 Loc: HO.ED Attending Dr: Ordering Physician: Gloria Hassan PA-C Date of Service: 11/04/24 Procedure(s): CT Head for ICH Accession Number(s): [id number] cc: Zev Sanders MD; Gloria Hassan PA-C Report Number: [id number]: Total DLP = 629.57 mGy-cm EXAMINATION: CT [...] 11/04/24 1602 DD/ 1352 TD/TT: 11/04/24 1546 Clarity Specialists: Procedure Note Donotuseinterpreter, Image - 11/04/[address] [place] [address] [address] Scan Report Signed Patient: Deysi Pfeiffer DMR#: [id number] : 1970Acct:[id number] Age/Sex: 54 / FADM Date: 11/04/24 Loc: HO.ED Attending Dr: Ordering Physician: Gloria Hassan PA-C Date of Service: 11/04/24 Procedure(s): CT Head for ICH Accession Number(s): [id number] cc: Zev Sanders MD; Gloria Hassan PA-C Report Number: [id number]: Total DLP = 629.57 mGy-cm EXAMINATION: CT [...] 11/04/24 1602 DD/ 1352 TD/TT: 11/04/24 1546 Cl[facility] Specialists: [facility] External Provider IMG CT PROCEDURES Final Result * XR Chest 2 Views (10/21/2024 4:10 PM EDT) Anatomical Region Laterality Modality Chest Radiographic Joy ging 10/21/2024 4:10 PM EDT Narrative 10/21/2024 4:54 PM EDT [address] [address] XRay Report Signed Patient: Deysi Pfeiffer MR#: [id number] : 1970 Acct:[id number] Age/Sex: 54 / F ADM Date: 10/21/24 Loc: HO.ED Attending Dr: Ordering Physician: Kimberly Tello Date of Service: 10/21/24 Procedure(s): XR chest 2V Accession Number(s): [id number] cc: Zev Sanders MD; Kimberly Tello EXAMINATION: [...] 10/21/24 1651 DD/ 1610 TD/TT: 10/21/24 1625 Clarity Specialists: Procedure Note Donotuseinterpreter, Image - 10/21/[address] [address] XRay Report Signed Patient: Deysi Pfeiffer DMR#: [id number] : 1970Acct:[id number] Age/Sex: 54 / FADM Date: 10/21/24 Loc: HO.ED Attending Dr: Ordering Physician: Kimberly Tello Date of Service: 10/21/24 Procedure(s): XR chest 2V Accession Number(s): [id number] cc: Zev Sanders MD; Kimberly Tello EXAMINATION: [...] 10/21/24 1651 DD/ 1610 TD/TT: 10/21/24 1625 Clarity Specialists: [facility] External Provider IMG XR PROCEDURES Edited Result - Final * XR Shoulder 2+ Views Right (10/21/2024 3:33 PM EDT) Anatomical Region Laterality Modality Upper Extremities, Shoulder Right Radi ographic Imaging 10/21/2024 3:33 PM EDT Narrative 10/21/2024 4:55 PM EDT [address] [address] XRay Report Signed Patient: Deysi Pfeiffer MR#: [id number] : 1970 Acct:[id number] Age/Sex: 54 / F ADM Date: 10/21/24 Loc: HO.ED Attending Dr: Ordering Physician: Kimberly Tello Date of Service: 10/21/24 Procedure(s): XR shoulder RT min 2V Accession Number(s): [id number] cc: Zev Sanders MD; Kimberly Tello EXAMINATION: [...] 10/21/24 1652 DD/ 1533 TD/TT: 10/21/24 1625 Clarity Specialists: Procedure Note Donotuseinterpreter, Image - 10/21/[address] [address] XRay Report Signed Patient: Deysi Pfeiffer [facility]#: [id number] : 1970Acct:[id number] Age/Sex: 54 / FADM Date: 10/21/24 Loc: .ED Attending Dr: Ordering Physician: Kimberly Tello Date of Service: 10/21/24 Procedure(s): XR shoulder RT min 2V Accession Number(s): [id number] cc: Zev Sanders MD; Kimberly Tello EXAMINATION: [...] 10/21/24 1652 DD/ 1533 TD/TT: 10/21/24 1625 Cl[facility] Specialists: [facility] External Provider IMG XR PROCEDURES Edited Result - Final * Cologuard?? colon cancer screening (03/10/2023 2:14 PM EST) Cologuard Result Negative Negative 03/21/20 1:56 AM EST [facility] (CLIA #:[id number]) Comment: NEGATIVE TEST RESULT. A negative Cologuard [...] Steward. et al, N Engl J Med 2014;370(14):8365-9633) The normal value (reference range) for this assay is negative. COLOGUARD RE-SCREENING RECOMMENDATION: Periodic colorectal cancer screening is an important part of preventive healthcare for asymptomatic individuals at average risk for colorectal cancer. Following a negative Cologuard result, the [place] [employer] and U.S. Multi-Society Task Force screening guidelines recommend a Cologuard re-screening interval of 3 years. References: [place] [employer] Guideline for Colorectal Cancer Screening: https://www.cancer.org/cancer/qoobz-agajcg-piwxjs/osrrzibgt-zrmsipzoi-dlnrtiy/ac s-rec ommendations.html.; Edgar CRESPO, Antonio STONE, Salma SAN, Colorectal Cancer Screening: Recommendations for Physicians and Patients from the U.S. Multi-Society Task Force on Colorectal Cancer Screening , Am J Gastroenterology 2017; 112:6290-7059. TEST DESCRIPTION: Composite algorithmic analysis of stool [...] Steward. et al, N Engl J Med 2014;370(14):0677-8058.) Cologuard may produce a false negative or false positive result (no colorectal cancer or precancerous polyp present at colonoscopy follow up). A negative Cologuard test result does not guarantee the absence of CRC or advanced adenoma (pre-cancer). The current Cologuard screening interval is every 3 years. ([place] [employer] and U.S. Multi-Society Task Force). Cologuard performance data in a 10,000 patient pivotal study using colonoscopy as the reference method can be accessed at the following location: www.[email or web address]. Additional description of the Cologuard test process, warnings and precautions can be found at www.[email or web address].Application Security. Stool specimen (specimen) 03/10/2023 2:14 PM EST 03/12/2023 8:29 PM EST Zev Sanders MD LAB MOLECULAR DIAGNOSTICS O RDERABLES Final Result Performing Organization Address City/[facility]/ZIP Co de Phone Number [employer] (CLIA #:[id number]) [address] [place] [address], * HPV E6/E7 RFLX VANNESSA 16 18/45 (01/15/2022 10:19 AM EDT) HPV mRNA E6/E7 rflx Not Detected Not Detected [facility]GAC[facility] Comment: Methodology: Semi Truck Driver-Mediated Amplification This assay detects E6/E7 viral messenger RNA (mRNA) from 14 high-risk HPV types (16,18,31,33,35,39,45,51,52,56,58,59,66,68). Cervical sources are required for HPV testing. If a vaginal source from a patient who has had a total hysterectomy with removal of cervix was submitted, please contact the testing laboratory for alternative testing options. For additional information, please refer to http://education.[employer]/faq/UAL477g4 (This link if provided for information/ educational purposes only.) THIS TEST WAS PERFORMED AT: [facility] [address] [place] [address],[place] [address] ESPERANZA CRUZ MD 01/15/2022 10:1 9 AM EDT Mario Alberto Morgan MD HISTORICAL/NON ORDERABLE LABS Fi nal Result Performing Organization Address City/[facility]/ZIP Co de Phone Number CONVERTED LEGACY LABS [...] a test for HCV RNA (test code 19291) is suggested. For additional information please refer to http://education.[employer]/faq/XST53w1 (This link is being provided for informational/ educational purposes only.) 11/12/2021 12:0 9 PM EDT Zev Sanders MD HISTORICAL/NON ORDERABLE LA BS Final Result Performing Organization Address [facility] de Phone Number [facility] [address] [place] [address], [place] * (ABNORMAL) LIPID PANEL, STANDARD (11/12/2021 [...] factors. LDL-C is now calculated using the Hilario-Valdes calculation, which is a validated novel method providing better accuracy than the Friedewald equation in the estimation of LDL-C. Hilario MOON et al. JUANA. 2013;310(19): 2043-8985 (http://education.[employer]/faq/RSC462) Non-HDL Cholesterol 129 <130 mg/dL (calc) [facility] Comment: For patients with diabetes plus 1 major ASCVD risk factor, treating to a non-HDL-C goal of <100 mg/dL (LDL-C of <70 mg/dL) is considered a therapeutic option. Triglycerides 120 <150 mg/dL [facility] 11/12/2021 12:0 9 PM EDT us Zev Sanders MD LAB BLOOD ORDERABLES Final Result Performing Organization Address [facility] de Phone Number [facility] [address] [place] [address], * Mammography Report 1 (10/17/2021 2:30 PM [...] Most Recently Relevant to Health Maintenance Insurance [employer] C3 Care Teams Dental Assistant Instructor Relationship Specialty Start Date End Date Zev Sanders MD [address] [place] [address] PCP - General Internal Medicine 11/16/19 Gonzalo Lima 10/04/24 Benedict Lima RN [address] [place] [address] Registered Nurse Family Medicine 12/06/24
--- OUTSIDE RECORDS SUMMARY | 2025-01-11 18:08 | XMS_ITS ---
Author Organization [employer] Address [address] [place] [address] [address] [place] [address] Care Team Providers Care Color Sprayer Name Role Phone Zev Sanders MD Primary Care Provider [phone] Gonzalo Lima Unavailable Benedict Lima RN Unavailable [phone] Complex Status:Enrolled (Active) Start date:10/04/2024 Enrollment date:10/14/2024 Enrollment reason:ADT Feed Overview ADT-[facility] ED 10/01/24 shortness of breath Case Team Name Relationship Phone Benedict Lima RN(Responsible Staff) Registered Nurse [phone] Continued Care and Services Coordination
--- OUTSIDE RECORDS SUMMARY | 2025-01-11 18:08 | XMS_ITS | Encounter Summary ---
Author Organization [employer] Address [address] [place] [address] Care Team Providers Care Tread Booker Name Role Phone Zev Sanders MD Primary Care Provider [phone] Michelle Quiroz RN Unavailable [phone] Gonzalo Lima Unavailable Benedict Lima RN Unavailable [phone] Encounter Details Date Type Department Care Team (Late st Contact Info) Description 11/24/2024 Orders Only [facility] MED & PEDS [address] [place], [place] [phone] Provider, MD Josh Social History Tobacco Use [...] Upcoming Encounters Date Type Department Care Team ([facility] st Contact Info) Description 01/17/2025 3:15 PM EDT Office Visit [facility] MED & PEDS [address] [place] [address] Zev Sanders MD [address] [place] [address] documented as of this encounter Procedures Procedure [...] documented as of this encounter Care Teams Tread Booker Relationship Specialty Start Date End Date Zev Sanders MD [address] [place] [address] PCP - General Internal Medicine 11/16/19 Michelle Quiroz, BIANCA [address] [place], [place] [phone] Registered Nurse Family Medicine 10/04/24 12/06/24 Gonzalo Lima 10/04/24 Benedict Lima, BIANCA [address] [place], [place] [phone] Registered Nurse Family Medicine 12/06/24 documented as of this encounter
--- OUTSIDE RECORDS SUMMARY | 2025-01-11 18:08 | XMS_ITS | Encounter Summary ---
Author Organization [employer] Address [address] [place] [address] 7 [place] [address] Care Team Providers Care Associate Marketing Manager Name Role Phone Zev Sanders MD Primary Care Provider [phone] Michelle Quiroz RN Unavailable [phone] Gonzalo Lima Unavailable Benedict Lima RN Unavailable [phone] Reason for Visit * Reason Comments Med Refill Encounter Details Date Type Department Care Team (Late Contact Info) Description 11/05/2022 Refill [facility] MED & PEDS [address] [place], [place] [phone] Zev Sanders MD [address] [place], [place] [phone] Chronic low back pain, unspecified back pain [...] Description 01/17/2025 3:15 PM EDT Office Visit [facility] MED & PEDS [address] [place] [address] Zev Sanders MD [address] [place] [address] documented as of this encounter Visit Diagnoses Diagnosis Chronic low back pain, unspecified back pain laterality, unspecified whether sciatica present documented in this encounter Care Teams Associate Marketing Manager Relationship Specialty Start Date End Date Zev Sanders MD [address] [place] [address] PCP - General Internal Medicine 11/16/19 Michelle Quiroz RN [address] [place] [address] Registered Nurse Family Medicine 10/04/24 12/06/24 Gonzalo Lima 10/04/24 Benedict Lima, BIANCA [address] [place] [address] Registered Nurse Family Medicine 12/06/24 documented as of this encounter
--- OUTSIDE RECORDS SUMMARY | 2025-01-11 18:08 | XMS_ITS | Encounter Summary ---
Author Organization [employer] Address [address] [place] [address] [address]t [place] [address] Care Team Providers Care Wound Care Nurse Name Role Phone Zev Sanders MD Primary Care Provider [phone] Gonzalo Lima Unavailable Benedict Lima RN Unavailable [phone] Reason for Visit * Reason Comments Med Refill Encounter Details Date Type Department Care Team ([facility] st Contact Info) Description 01/06/[address] [facility] MED & PEDS [address] [place], [place] [phone] Zev Sanders MD [address] [place], [place] [phone] Chronic low back pain, unspecified back pain [...] Description 01/17/2025 3:15 PM EDT Office Visit [facility] MED & PEDS [address] [place] [address] Zev Sanders MD [address] [place] [address] documented as of this encounter Visit Diagnoses Diagnosis Chronic low back pain, unspecified back pain laterality, unspecified whether sciatica present documented in this encounter Additional Health Concerns Assessment Noted Time PHQ-9 Depression Total Score: 2 10/15/19 11:49 AM EDT documented as of this encounter Care Teams Wound Care Nurse Relationship Specialty Start Date End Date Zev Sanders MD [address] [place] [address] PCP - General Internal Medicine 11/16/19 Gonzalo Lima 10/04/24 Benedict Lima RN [address] [place] [address] Registered Nurse Family Medicine 12/06/24 documented as of this encounter
--- OUTSIDE RECORDS SUMMARY | 2025-01-11 18:08 | XMS_ITS | Encounter Summary ---
Author Organization [employer] Address [address] [facility] 7t [place] [address] Care Team Providers Care Clinical Services Professional Name Role Phone Zev Sanders MD Primary Care Provider [phone] Gonzalo Lima Unavailable Benedict Lima RN Unavailable [phone] Reason for Visit * Reason Comments Med Refill Encounter Details Date Type Department Care Team ([facility] st Contact Info) Description 01/06/[address] [facility] CH[facility] MED & PEDS [address] [place] [address] Darlene Gant MD [address] [place] [address] Social History Tobacco Use Types Packs/Day Years [...] ([facility] st Contact Info) Description 01/17/2025 3:15 PM EDT Office Visit [facility] MED & PEDS [address] [place] [address] Zev Sanders MD [address] [place] [address] documented as of this encounter Visit Diagnoses Not on filedocumented in this encounter Additional Health Concerns Assessment Noted Time PHQ-9 Depression Total Score: 2 10/15/19 11:49 AM EDT documented as of this encounter Care Teams Clinical Services Professional Relationship Specialty Start Date End Date Zev Sanders MD [address] [place] [address] PCP - General Internal Medicine 11/16/19 Gonzalo Lima 10/04/24 Benedict Lima, BIANCA [address] [place] [address] Registered Nurse Family Medicine 12/06/24 documented as of this encounter
--- OUTSIDE RECORDS SUMMARY | 2025-01-11 18:08 | XMS_ITS | Encounter Summary ---
Author Organization [employer] Address [address] [facility] 7t [place] [address] Care Team Providers Care Collar Turner Name Role Phone Zev Sanders MD Primary Care Provider [phone] Gonzalo Lima Unavailable Benedict Lima RN Unavailable [phone] Encounter Details Date Type Department Care Team ([facility] st Contact Info) Description 01/06/2025 Telephone [facility] CH[facility] MED & PEDS [address] [place], [place] [phone] Zev Sanders MD [address] [place] [address] Social History Tobacco Use Types Packs/Day Years [...] as of this encounter Miscellaneous Notes * Patient Education Note - Humaira Lopez RN - 01/06/2025 4:57 PM EDT Images from the original note were not included. Patient Education Table of Contents Hypertension, Adult Hipertensi?n en los adultos (Hypertension, Adult) To view videos and all your education online visit, [email or web address] or scan this QR code with your smartphone. Access to this content will in one year. Hypertension, Adult Hypertension is another name for high blood pressure. High blood pressure forces your heart to workharder to pump blood. This can cause problems over time. There are two numbers in a blood pressure reading. There is a top number (systolic) over a bottom number (diastolic). It is best to have a blood pressure that is below 120/80. What are the causes? The cause of this condition is not known. Some other conditions can lead to high blood pressure. What increases the risk? Some lifestyle factors can make you more likely to develop high blood pressure: Smoking. Not getting enough exercise or physical activity. Being overweight. Having too much fat, sugar, calories, or salt (sodium) in your diet. Drinking too much alcohol. Other risk factors include: Having any of these conditions: ? Heart disease. ? Diabetes. ? High cholesterol. ? Kidney disease. ? Obstructive sleep apnea. Having a family history of high blood pressure and high cholesterol. Age. The risk increases with age. Stress. What are the signs or symptoms? High blood pressure may not cause symptoms. Very high blood pressure (hypertensive crisis) may cause: Headache. Fast or uneven heartbeats (palpitations). Shortness of breath. Nosebleed. Vomiting or feeling like you may vomit (nauseous). Changes in how you see. Very bad chest pain. Feeling dizzy. Seizures. How is this treated? This condition is treated by making healthy lifestyle changes, such as: ? Eating healthy foods. ? Exercising more. ? Drinking less alcohol. Your doctor may prescribe medicine if lifestyle changes do not help enough and if: ? Your top number is above 130. ? Your bottom number is above 80. Your personal target blood pressure may vary. Follow these instructions at home: Eating and drinking If told, follow the DASH eating plan. To follow this plan: ? Fill one half of your plate at each meal with fruits and vegetables. ? Fill one fourth of your plate at each meal with whole grains. Whole grains include whole-wheat pasta, brown rice, and whole-grain bread. ? Eat or drink low-fat dairy products, such as skim milk or low-fat yogurt. ? Fill one fourth of your plate at each meal with low-fat (lean) proteins. Low- fat proteins includefish, chicken without skin, eggs, beans, and tofu. ? Avoid fatty meat, cured and processed meat, or chicken with skin. ? Avoid pre-made or processed food. Limit the amount of salt in your diet to less than 1,500 mg each day. Do not drink alcohol if: ? Your doctor tells you not to drink. ? You are , may be , or are planning to become . If you drink alcohol: ? Limit how much you have to: ? 0?1 drink a day for women. ? 0?2 drinks a day for men. ? Know how much alcohol is in your drink. In the [place] one drink equals one 12 oz bottle of beer (355 mL), one 5 oz glass of wine (148 mL), or one 1? oz glass of hard liquor (44 mL). Lifestyle Work with your doctor to stay at a healthy weight or to lose weight. Ask your doctor what the best weight is for you. Get at least 30 minutes of exercise that causes your heart to beat faster (aerobic exercise) most days of the week. This may include walking, swimming, or biking. Get at least 30 minutes of exercise that strengthens your muscles (resistance exercise) at least 3 days a week. This may include lifting weights or doing Pilates. Do not smoke or use any products that contain nicotine or tobacco. If you need help quitting, ask your doctor. Check your blood pressure at home as told by your doctor. Keep all follow-up visits. Medicines Take esdc-btf-tuxpmgp and prescription medicines only as told by your doctor. Follow directions carefully. Do not skip doses of blood pressure medicine. The medicine does not work as well if you skip doses.Skipping doses also puts you at risk for problems. Ask your doctor about side effects or reactions to medicines that you should watch for. Contact a doctor if: You think you are having a reaction to the medicine you are taking. You have headaches that keep coming back. You feel dizzy. You have swelling in your ankles. You have trouble with your vision. Get help right away if: You get a very bad headache. You start to feel mixed up (confused). You feel weak or numb. You feel faint. You have very bad pain in your: ? Chest. ? Belly (abdomen). You vomit more than once. You have trouble breathing. These symptoms may be an emergency. Get help right away. Call 911. Do not wait to see if the symptoms will go away. Do not drive yourself to the hospital. Summary Hypertension is another name for high blood pressure. High blood pressure forces your heart to work harder to pump blood. For most people, a normal blood pressure is less than 120/80. Making healthy choices can help lower blood pressure. If your blood pressure does not get lower with healthy choices, you may need to take medicine. This information is not intended to replace advice given to you by your health care provider. Make sure you discuss any questions you have with your health care provider. Document Released: 2008-09-02 Document Updated: 2021-12-30 Document Reviewed: 2022-01-03 Elsevier Patient Education ? 2024 [employer] Hipertensi?n en los adultos Hypertension, Adult El t?rmino hipertensi?n es otra forma de denominar a la presi?n arterial elevada. La presi?n arterial elevada fuerza al coraz?n a trabajar m?s para bombear la yolanda. [place] puede causar problemas con el paso del tiempo. Naida lectura de presi?n arterial est?? compuesta por 2 n?meros. Hay un n?javier superior (sist?gabe) sobre un n?javier inferior (diast?gabe). Lo ideal es tener la presi?n arterial por debajo de 120/80. ?Cu?les son las causas? Se desconoce la causa de esta afecci?n. Algunas otras afecciones pueden provocar presi?n arterial elevada. ?Qu?? incrementa el riesgo? Algunos factores del estilo de tania pueden hacer que tenga m?s probabilidades de desarrollar presi?n arterial elevada: Fumar. No hacer la cantidad suficiente de actividad f?nadir o ejercicio. Tener sobrepeso. Consumir jossie grasa, az?car, calor?as o donavon (sodio) en otero dieta. Beber alcohol en exceso. Otros factores de riesgo son los siguientes: Tener alguna de estas afecciones: ? Enfermedad card?laureano. ? Diabetes. ? Colesterol alto. ? Enfermedad renal. ? Apnea obstructiva del alfa?o. Tener antecedentes familiares de presi?n arterial elevada y colesterol elevado. Edad. El riesgo aumenta con la edad. Estr?s. ?Cu?les son los signos o s?ntomas? Es posible que la presi?n arterial chely no cause s?ntomas. La presi?n arterial muy chely (crisis hipertensiva) puede provocar: Dolor de argelia. Latidos card?acos acelerados o irregulares (palpitaciones). Falta de aire. Hemorragia nasal. Vomitar o sentir ganas de vomitar (n?useas). Cambios en la forma de ariana. Dolor muy intenso en el pecho. Sensaci?n de mareo. Convulsiones. ?C?mo se trata? Esta afecci?n se trata haciendo cambios saludables en el estilo de tania, por ejemplo: ? Consumir alimentos saludables. ? Hacer m?s ejercicio. ? Beber menos alcohol. El m?dico puede recetarle medicamentos si los cambios en el estilo de tania no son lo suficientemente eficaces y si: ? El n?javier de arriba est?? por encima de 130. ? El n?javier de abajo est?? por encima de 80. Otero presi?n arterial personal ideal puede variar. Siga estas indicaciones en otero casa: Comida y bebida Si se lo dicen, siga el plan de alimentaci?n de DASH (Dietary Approaches to Stop Hypertension, Maneras de alimentarse para detener la hipertensi?n). Para seguir radha plan: ? Llene la mitad del plato de cada comida con frutas y verduras. ? Llene un cuarto del plato de cada comida con cereales integrales. Los cereales integrales incluyen pasta integral, arroz integral y boss integral. ? Coma y mary jo productos l?cteos con bajo contenido de grasa, xenia leche descremada o yogur bajo en grasas. ? Llene un cuarto del plato de cada comida con prote?hernandez bajas en grasa (magras). Las prote?hernandez bajas en grasa incluyen pescado, erin sin piel, huevos, frijoles y tofu. ? Evite consumir carne grasa, carne curada y procesada, o erin con piel. ? Evite consumir alimentos prehechos o procesados. Limite la cantidad de donavon en otero dieta a menos de 1500?mg por d?a. No mary jo alcohol si: ? El m?dico le indica que no lo adam. ? Est?? embarazada, puede estar embarazada o est?? tratando de quedar embarazada. Si tato alcohol: ? Limite la cantidad que tato a lo siguiente: ? De 0 a 1 medida por d?a para las mujeres. ? De 0 a 2 medidas por d?a para los hombres. ? Sepa cu?nta cantidad de alcohol hay en las bebidas que lucille. En los [place], naida medida equivale a naida botella de cerveza de 12?oz (355?ml), un vaso de vino de 5?oz (148?ml) o un vaso de unabebida alcoh?lica de chely graduaci?n de 1??oz (44?ml). Estilo de tania Trabaje con otero m?dico para mantenerse en un peso saludable o para perder peso. Preg?ntele a otero m?dico cu?l es el peso recomendable para usted. Realice al menos 30 minutos de ejercicio que adam que se acelere otero coraz?n (ejercicio aer?bico) lamayor?a de los d?as de la semana. Estos pueden incluir caminar, nadar o andar en bicicleta. Realice al menos 30 minutos de ejercicio que fortalezca laina m?sculos (ejercicios de resistencia) almenos 3 d?as a la semana. Estos pueden incluir levantar pesas o hacer Pilates. No fume ni consuma kailee?n producto que contenga nicotina o tabaco. Si necesita ayuda para dejar de consumir estos productos, consulte al m?dico. Controle otero presi?n arterial en otero casa dayna xenia le indic?? el m?dico. Concurra a todas las visitas de seguimiento. Medicamentos Use los medicamentos de venta gavin y los recetados solamente xenia se lo haya indicado el m?dico. Siga cuidadosamente las indicaciones. No omita las dosis de medicamentos para la presi?n arterial. Los medicamentos pierden eficacia si omite dosis. El hecho de omitir las dosis tambi?n aumenta el riesgo de otros problemas. Preg?ntele a otero m?dico a qu?? efectos secundarios o reacciones a los medicamentos debe prestar atenci?n. Comun?quese con un m?dico si: Piensa que tiene naida reacci?n a los medicamentos que est?? tomando. Tiene chris de argelia frecuentes. Siente mareos. Tiene hinchaz?n en los tobillos. Tiene problemas de visi?n. Solicite ayuda de inmediato si: Siente un dolor de argelia muy intenso. Empieza a sentirse desorientado (confundido). Se siente d?christoph o adormecido. Siente que va a desmayarse. Tiene un dolor muy intenso en: ? Pecho. ? Vientre (abdomen). Vomita m?s de naida vez. Tiene dificultad para respirar. Estos s?ntomas pueden indicar naida emergencia. Solicite ayuda de inmediato. Llame al 911. No espere a ariana si los s?ntomas desaparecen. No conduzca por laina propios medios hasta el hospital. Resumen El t?rmino hipertensi?n es otra forma de denominar a la presi?n arterial elevada. La presi?n arterial elevada fuerza al coraz?n a trabajar m?s para bombear la yolanda. Para la mayor?a de las personas, naida presi?n arterial normal es sherry que 120/80. Las decisiones saludables pueden ayudarle a disminuir otero presi?n arterial. Si no puede bajar otero presi?n arterial mediante decisiones saludables, es posible que deba sary medicamentos. Esta informaci?n no tiene xenia fin reemplazar el consejo del m?dico. Aseg?rese de hacerle al m?dicocualquier pregunta que tenga. Document Released: 2010-09-04 Document Updated: 2022-01-24 Document Reviewed: 2022-01-24 Elsevier Patient Education ? 2024 [employer]. * Telephone Encounter - Humaira Lopez RN - 01/06/2025 12:56 PM EDT Patient education printed out prior to nurse visit documented in this encounter Plan of Treatment Upcoming Encounters Date Type Department Care Team (Late st Contact Info) Description 01/17/2025 3:15 PM EDT Office Visit [facility] MED & PEDS [address] [place] [address] Zev Sanders MD [address] [place] [address] documented as of this encounter Visit Diagnoses Not on filedocumented in this encounter Additional Health Concerns Assessment Noted Time PHQ-9 Depression Total Score: 2 10/15/19 11:49 AM EDT documented as of this encounter Care Teams Collar Turner Relationship Specialty Start Date End Date Zev Sanders MD [address] [place] [address] PCP - General Internal Medicine 11/16/19 Gonzalo Lima 10/04/24 Benedict Lima RN [address] [place] [address] Registered Nurse Family Medicine 12/06/24 documented as of this encounter
--- OUTSIDE RECORDS SUMMARY | 2025-01-11 18:08 | XMS_ITS ---
Author Organization [employer] Address [address] [place] [address] [address] [place] [address] Care Team Providers Care Resident Care Manager Rn Name Role Phone Zev Sanders MD Primary Care Provider [phone] Gonzalo Lima Unavailable Beneditc Lima RN Unavailable [phone] Status:Enrolled (Active) Start date:10/04/2024 Enrollment date:10/14/2024 Enrollment reason:ADT Feed Overview [facility] ED 10/01/24 shortness of breath Case Team Name Relationship Phone Gonzalo Lima(Responsible Staff) [phone] Continued Care and Services Coordination
--- OUTSIDE RECORDS SUMMARY | 2025-01-11 18:08 | XMS_ITS | Clinical Summary ---
Author Organization [facility] Address [address] [place] [phone] Phone Care Team Providers Care Splitter Tender Name Role Phone Zev Sanders MD Primary Care Provider [phone] Allergies Active Allergy Reactions Criticality Noted Date Comments Penicillins Angioedema High 11/22/2024 Shellfish Containing Products Angioedema High 2024 Medications Ventolin HFA 90 mcg/actuation inhaler Inhale 2 puffs by mouth 4 (four) times a day if needed for wheezing. 5 Active budesonide-form oteroL (SYMBICORT) 160-4.5 mcg/actuation inhaler Inhale 2 puffs by mouth 2 times daily. 2 Active cholecalciferol (VITAMIN D-3) 50 mcg (2,000 unit) tablet [...] each day in the morning. 5 Active ipratropium-alb uteroL (DUONEB) 0.5-2.5 mg/3 mL nebulizer solution Take 3 mL by nebulization 4 (four) times a day if needed for wheezing. 3MLS EVERY 6-8 HOURS NEEDED FOR WHEEZING 5 Active lidocaine (LIDODERM) 5 % patch Apply 1 patch topically 1 (one) time each day. 5 Active lisinopriL (PRINIVIL,ZESTR IL) 10 mg tablet Take 1 tablet (10 [...] times a day. 60 each 5 Active Active Problems Problem Noted Date Diagnosed Date Sepsis due to pneumonia ([facility] V24, [facility] V2 8) 11/22/2024 Encounters Date Type Department Care Team Description 12/15/2024 2:15 PM EDT Ancillary Procedure [facility] [address] [place]ño [address] [place] [phone] Lower limb pain, anterior, right 11/22/2024 1:28 PM EDT - 11/25/2024 1:45 PM EDT Hospital Encounter [facility] [address] [place] [phone] Tai Olivier MD Bukalo, Nermina, MD Rasul, Yar M, MD Dyspnea, unspecified type (Primary Dx); Sepsis due to pneumonia ([facility] V24, [facility] V28) Discharge Disposition: Home-Health Care c from Last 3 Months Medical History Medical History Date Comments UTI (urinary tract infection) Asthma COPD (chronic obstructive pulmonary disease) ( S/HCC V24, [facility] V28) Anxiety GERD (gastroesophageal reflux [...] Record ed Within the last 3 months, cass mascorro many times did you visit the emergency [...] care for your loved ones. For example, summer child caregiver or elderly care for an older adult? [...] Info) Description 02/22/2025 3:00 PM EST Appointment [facility] CT Scan [address] [place] [phone] 03/02/2025 9:45 AM EST Office Visit Thoracic [place] [address] [facility] [address] [place] [address] Epi Hernández, JAYNE [address] [place] [address] [place] [id number] Health Maintenance Due Date Last Done Comments Hepatitis B Vaccines (1 of 3 - 19+ 3-dose series) 1989 Cervical Cancer Screening: Pap Smear 1991 Breast Cancer Screening 10/18/2023 10/17/2021 Depression Screening 03/31/2024 Zoster Vaccines (2 of 2) 06/24/2024 04/29/2024 HIV Screening 11/22/2024 Hepatitis C Screening 11/22/2024 COVID-19 Vaccine ( - season) 2024 Influenza [...] the right leg. The vessel showed compressibility. Rehab Services Aide Details A fowler scale, color and doppler [...] K/mcL LAB HEMETOLOGY METHOD 11/25/2024 7:07 AM [facility] RBC 3.80 3.80 - 4.80 M/mcL LAB HEMETOLOGY METHOD 11/25/2024 7:07 AM [facility] Hemoglobin 10.5(L) 11.5 - 16.0 g/dL LAB HEMETOLOGY METHOD 11/25/2024 7:07 AM [facility] Hematocrit 33.3(L) 35.0 - 47.0 % LAB HEMETOLOGY METHOD 11/25/2024 7:07 AM [facility] MCV 86.7 79.0 - 98.0 FL LAB HEMETOLOGY METHOD 11/25/2024 7:07 AM [facility] MCH 27.3 27.0 - 32.0 pcg LAB HEMETOLOGY METHOD 11/25/2024 7:07 AM [facility] MCHC 31.5(L) 32.0 - 37.0 g/dL LAB HEMETOLOGY METHOD 11/25/2024 7:07 AM [facility] RDW 14.9 11.0 - 15.0 % LAB HEMETOLOGY METHOD 11/25/2024 7:07 AM [facility] Platelets 213 130 - 400 K/mcL LAB HEMETOLOGY METHOD 11/25/2024 7:07 AM [facility] MPV 10.0 7.0 - 11.0 FL LAB HEMETOLOGY METHOD 11/25/2024 7:07 AM [facility] NRBC 0.0 <1.0 % LAB HEMETOLOGY METHOD 11/25/2024 7:07 AM [facility] NRBC Absolute 0.00 <0.10 K/mcL LAB HEMETOLOGY METHOD 11/25/2024 7:07 AM [facility] Neutrophils Relative 63.8 % LAB HEMETOLOGY METHOD 11/25/2024 7:07 AM [facility] Lymphocytes Relative 18.7 % LAB HEMETOLOGY METHOD 11/25/2024 7:07 AM [facility] Monocytes Relative 12.6 % LAB HEMETOLOGY METHOD 11/25/2024 7:07 AM [facility] Eosinophils Relative 3.7 % LAB HEMETOLOGY METHOD 11/25/2024 7:07 AM [facility] Basophils Relative 0.6 % LAB HEMETOLOGY METHOD 11/25/2024 7:07 AM [facility] Immature Granulocytes Relative 0.6 % LAB HEMETOLOGY METHOD 11/25/2024 7:07 AM [facility] Neutrophils Absolute 4.10 1.50 - 7.00 K/mcL LAB HEMETOLOGY METHOD 11/25/2024 7:07 AM [facility] Lymphocytes Absolute 1.20 1.00 - 5.00 K/mcL LAB HEMETOLOGY METHOD 11/25/2024 7:07 AM [facility] Monocytes Absolute 0.81 0.20 - 1.00 K/mcL LAB HEMETOLOGY METHOD 11/25/2024 7:07 AM [facility] Eosinophils Absolute 0.24 0.00 - 0.50 K/mcL LAB HEMETOLOGY METHOD 11/25/2024 7:07 AM [facility] Basophils Absolute 0.04 0.00 - 0.20 K/mcL LAB HEMETOLOGY METHOD 11/25/2024 7:07 AM [facility] Immature Granulocytes Absolute 0.04(H) 0.00 - 0.03 K/mcL LAB HEMETOLOGY METHOD 11/25/2024 7:07 AM [facility] Blood Venous blood specimen / Unknown Venipuncture / Unknown 11/25/2024 6:35 AM EDT 11/25/2024 6:43 AM EDT us Sahil Maria MD LAB BLOOD ORDERABLES Final Resul t Performing Organization Address City/[facility]/ZIP Co de Phone Number [facility] [address] [place] [address], [place] [phone] * SST tube (11/25/2024 6:31 AM EDT) Extra Tube Hold for add-ons. 11/25/2024 8:01 AM EDT [facility] Comment:Auto resulted. Blood Venous blood specimen / Unknown Venipuncture / Unknown 11/25/2024 6:31 AM EDT 11/25/2024 6:44 AM EDT us Sahil Maria MD LAB BLOOD ORDERABLES Final Resul t Performing Organization Address City/[facility]/ZIP Co de Phone Number [facility] [address] [place] [address], [place] [phone] * XR Chest 1 View (11/24/2024 11:55 [...] on the prior study has resolved. Code 58571 -------- FINAL REPORT -------- Dictated By: Bong Mcguire Dictated Date: 11/25/2024 09:34 ET Assigned Physician: Bong Mcguire Reviewed and Electronically Signed By: Bong Mcguire Signed Date: 11/25/2024 09:36 ET Workstation ID: [id number] Transcribed By: Self Edit Transcribed Date: 11/25/2024 [...] seen on the prior study hasresolved. Code 96716 -------- FINAL REPORT -------- Dictated By: Bong Mcguire Dictated Date: 11/25/2024 09:34 ET Assigned Physician: Bong Mcguire Reviewed and Electronically Signed By: Bong Mcguire Signed Date: 11/25/2024 09:36 ET Workstation ID: [id number] Transcribed By: Self Edit Transcribed Date: 11/25/2024 09:34 ET us Jose GODOY IMG XR PROCEDURES Final Result * (ABNORMAL) Venous blood gas (11/24/2024 11:42 PM EDT) pH, Lefty 7.27(L) 7.32 - 7.42 pH 11/24/2024 11:48 PM EDT [facility] pCO2, Lefty 44 41 - 51 mmHg 11/24/2024 11:48 PM EDT [facility] pO2, Lefty 61(H) 25 - 40 mmHg 11/24/2024 11:48 PM EDT [facility] HCO3, Venous 19.8(L) 22.0 - 26.0 mmol/L 11/24/2024 11:48 PM EDT [facility] O2 Sat, Lefty 94.5 % 11/24/2024 11:48 PM EDT [facility] Base Excess, Lefty -6.5(L) -2.0 - 2.0 mmol/L 11/24/2024 11:48 PM EDT [facility] Blood Venous blood specimen / Unknown Venipuncture / Unknown 11/24/2024 11:42 PM EDT 11/24/2024 11:45 PM EDT Jose GODOY LAB BLOOD ORDERABLES Final Res ult [facility] [address] [place] [address], * MR Brain wo Contrast (11/24/2024 4:12 [...] Signed Date: 11/25/2024 08:59 ET Workstation ID: [id number] Transcribed By: Self Edit Transcribed Date: 11/25/2024 [...] There are a few scattered foci of [id number] in the supratentorial white matter which are [...] Signed Date: 11/25/2024 08:59 ET Workstation ID: [id number] Transcribed By: Self Edit Transcribed Date: 11/25/2024 08:55 ET Yari GODOY IMG MRI PROCEDURES Mary Jane l Result * (ABNORMAL) Basic metabolic panel (11/24/2024 6:12 AM EDT) Only the most recent of3 resultswithin the time period is included. Sodium 143 133 - 145 mmol/L LAB CHEMISTRY METHOD 11/24/2024 7:32 AM [facility] Potassium 3.8 3.5 - 5.5 mmol/L LAB CHEMISTRY METHOD 11/24/2024 7:32 AM [facility] Chloride 113(H) 96 - 110 mmol/L LAB CHEMISTRY METHOD 11/24/2024 7:32 AM [facility] CO2 17(L) 21 - 32 mmol/L LAB CHEMISTRY METHOD 11/24/2024 7:32 AM [facility] Anion Gap 13(H) 3 - 11 LAB CHEMISTRY METHOD 11/24/2024 7:32 AM [facility] Glucose 62(L) 70 - 100 mg/dL LAB CHEMISTRY METHOD 11/24/2024 7:32 AM [facility] BUN 9 5 - 25 mg/dL LAB CHEMISTRY METHOD 11/24/2024 7:32 AM [facility] Creatinine 0.53 0.50 - 1.10 mg/dL LAB CHEMISTRY METHOD 11/24/2024 7:32 AM [facility] eGFR 110 >=60 mL/min/1. 73m2 LAB CHEMISTRY METHOD 11/24/2024 7:32 AM [facility] Comment:Calculation based on the Chronic Kidney Disease Epidemiology Collaboration (CKD-EPI) equation refit without adjustment for race. BUN/Creatinine Ratio 17.0 LAB CHEMISTRY METHOD 11/24/2024 7:32 AM EDT [facility] Calcium 9.0 8.5 - 10.5 mg/dL LAB CHEMISTRY METHOD 11/24/2024 7:32 AM EDT [facility] Blood Venous blood specimen / Unknown Venipuncture / Unknown 11/24/2024 6:12 AM EDT 11/24/2024 6:46 AM EDT us Sahil Maria MD LAB BLOOD ORDERABLES Final Resul t [facility]) [facility] [address] [place] [address], [place] [phone] * ECG 12 lead (11/23/2024 11:07 PM EDT) Only the most recent of5 resultswithin the time period is included. Ventricular Rate ECG 63 BPM GEMUSE Atrial Rate 63 BPM GEMUSE P-R Interval 150 ms GEMUSE QRS Duration 84 ms GEMUSE Q-T Interval 378 ms GEMUSE QTc 386 ms GEMUSE P Wave [place] 79 degrees GEMUSE R [place] 64 degrees GEMUSE T [place] 69 degrees GEMUSE ECG Interpretation Sinus rhythm [...] MD ECG ORDERABLES Final Result GEMUSE * [place] top urine tube (11/23/2024 12:45 PM EDT) Pathologist [facility] Extra Tube Hold for add-ons. 11/23/2024 2:01 PM EDT [facility] Comment:Auto resulted. Urine Urine specimen obtained by clean catch procedure / Unknown 11/23/2024 12:45 PM EDT 11/23/2024 12:56 PM EDT us Sahil Maria MD LAB URINE ORDERABLES Final Resul t [facility] [address] [place] [address], [place] [phone] * (ABNORMAL) Drug abuse screen 8a panel, urine (11/23/2024 12:45 PM EDT) [facility] Amphetamine Screen, Ur Negative Negative LAB CHEMISTRY METHOD 5 1:39 PM EDT [facility] Comment:Certain OTC medicati ons containing ephedrine, phenylephrine, pseudoephedrine and phenylpropanolamine can cause false positive results. Barbiturate Screen, Ur Negative Negative LAB CHEMISTRY METHOD 5 1:39 PM EDT [facility] Benzodiazepine Screen, Ur Negative Negative LAB CHEMISTRY METHOD 5 1:39 PM EDT [facility] Cocaine Screen, Ur Negative Negative LAB CHEMISTRY METHOD 5 1:39 PM EDT [facility] Opiate Screen, Ur Positive(A ) Negative LAB CHEMISTRY METHOD 5 1:39 PM EDT [facility] Cannabinoid (THC) Screen, Ur Negative Negative LAB CHEMISTRY METHOD 5 1:39 PM EDT [facility] Comment:Specimens from patie nts taking pantoprazole sodium (Protonix) have been shown to produce false positive results. Oxycodone Screen, Ur Positive(A ) Negative LAB CHEMISTRY METHOD 5 1:39 PM EDT [facility] Fentanyl, Ur Negative Negative LAB CHEMISTRY METHOD 1:39 PM EDT [facility] Urine Urine specimen obtained by clean catch procedure / Unknown Non-blood Collection / Unknown 11/23/2024 12:45 PM EDT 11/23/2024 12:54 PM EDT Narrative [facility] - 11/23/2024 1:39 [...] MD LAB URINE ORDERABLES Final Resul t [facility] [address] [place] [address], [place] [phone] * (ABNORMAL) TRANSTHORACIC ECHOCARDIOGRAM (TTE) COMPLETE (11/23/2024 12:25 PM EDT) Left Atrium Minor [place] 4.3 cm CV PACS Left Atrium Major [place] 4.9 cm CV PACS LA Area Sys [...] Area 3.5 cm2 CV PACS MV Deceleration [place] 4.1 m/s2 CV PACS E Wave Deceleration [...] Complete blood count (11/23/2024 6:35 AM EDT) [facility] WBC 11.3(H) 4.8 - 10.8 K/mcL LAB HEMETOLOGY METHOD 11/23/2024 7:26 AM [facility] RBC 3.80 3.80 - 4.80 M/mcL LAB HEMETOLOGY METHOD 11/23/2024 7:26 AM [facility] Hemoglobin 10.6(L) 11.5 - 16.0 g/dL LAB HEMETOLOGY METHOD 11/23/2024 7:26 AM [facility] Hematocrit 35.4 35.0 - 47.0 % LAB HEMETOLOGY METHOD 11/23/2024 7:26 AM [facility] MCV 93.2 79.0 - 98.0 FL LAB HEMETOLOGY METHOD 11/23/2024 7:26 AM [facility] MCH 27.9 27.0 - 32.0 pcg LAB HEMETOLOGY METHOD 11/23/2024 7:26 AM [facility] MCHC 29.9(L) 32.0 - 37.0 g/dL LAB HEMETOLOGY METHOD 11/23/2024 7:26 AM [facility] RDW 15.2(H) 11.0 - 15.0 % LAB HEMETOLOGY METHOD 11/23/2024 7:26 AM EDT [facility] Platelets 190 130 - 400 K/mcL LAB HEMETOLOGY METHOD 11/23/2024 7:26 AM EDT [facility] MPV 10.6 7.0 - 11.0 FL LAB HEMETOLOGY METHOD 11/23/2024 7:26 AM EDT [facility] NRBC 0.0 <1.0 % LAB HEMETOLOGY METHOD 11/23/2024 7:26 AM EDT [facility] NRBC Absolute 0.00 <0.10 K/mcL LAB HEMETOLOGY METHOD 11/23/2024 7:26 AM EDT [facility] Blood Venous blood specimen / Unknown Venipuncture / Unknown 11/23/2024 6:35 AM EDT 11/23/2024 7:05 AM EDT us Tahmina Villegas MD LAB BLOOD ORDERABLES Final Res ult [facility] [address] [place] [address], [place] [phone] * Magnesium (11/23/2024 6:35 AM EDT) Only the most recent of3 resultswithin the time period is included. Magnesium 2.1 1.9 - 2.6 mg/dL LAB CHEMISTRY METHOD 11/23/2024 7:53 AM EDT [facility] Blood Venous blood specimen / Unknown Venipuncture / Unknown 11/23/2024 6:35 AM EDT 11/23/2024 7:05 AM EDT us Yari GODOY LAB BLOOD ORDERABLES Fi nal Result [facility] [address] [place] [address], [place] [phone] * CT Angio Chest wo and/or w [...] Estrada MD on 11/23/2024 01:22:[address] PROCEDURES Final Result * (ABNORMAL) B-type natriuretic peptide (11/22/2024 11:58 PM EDT) [facility] BNP 109(H) <=100 pcg/mL LAB CHEMISTRY METHOD 11/23/2024 12:58 AM EDT [facility] Blood Venous blood specimen / Unknown Venipuncture / Unknown 11/22/2024 11:58 PM EDT 11/23/2024 12:00 AM EDT Emily GODOY LAB BLOOD ORDERABLES Final Re sult [facility] [address] [place] [address], * Troponin I high sensitivity (11/22/2024 11:55 PM EDT) [facility] High Sensitivity Troponin I 8 <=54 ng/L LAB CHEMISTRY METHOD 11/23/2024 12:31 AM EDT [facility] Blood Venous blood specimen / Unknown Venipuncture / Unknown 11/22/2024 11:55 PM EDT 11/22/2024 11:59 PM EDT Narrative [facility] - 11/23/2024 12:31 AM EDT High levels of biotin in samples may falsely decrease hsTroponin values. Use caution when interpreting hsTroponin results in patients taking biotin who exhibit renal impairment (eGFR <60) or in patients taking more than 20 mg/day of biotin. Emily GODOY LAB BLOOD ORDERABLES Final Re sult [facility] [address] [place] [address], [place] [phone] * Lactate (11/22/2024 11:54 PM EDT) Lactate 0.5 0.4 - 2.0 mmol/L LAB CHEMISTRY METHOD 11/23/2024 12:31 AM EDT [facility] Blood Venous blood specimen / Unknown Venipuncture / Unknown 11/22/2024 11:54 PM EDT 11/23/2024 12:00 AM EDT Emily GODOY LAB BLOOD ORDERABLES Final Re sult [facility] [address] [place] [address], [place] [phone] * POCT Glucose, blood (11/22/2024 11:42 PM EDT) Glucose POCT 97 70 - 100 mg/dL 11/22/2024 11:43 PM EDT [facility] Blood Capillary blood specimen / Unknown 11/22/2024 11:42 PM EDT 11/22/2024 11:44 PM EDT Tahmina Villegas MD LAB POINT OF CARE TE ST DOCKED DEVICE UNSOLICITED RESULTS Final Result Performing Organization Address [facility]/ZIP Co de Phone Number [facility] [address] [place] [address], [place] [phone] * (ABNORMAL) D-Dimer (11/22/2024 9:58 PM EDT) D-Dimer, Quant (D-DU) 781(H) <=230 ng/mL DDU LAB COAGULATION METHOD 11/22/2024 10:35 PM EDT [facility] Blood Venous blood specimen / Unknown Venipuncture / Unknown 11/22/2024 9:58 PM EDT 11/22/2024 10:19 PM EDT Narrative [facility] - 11/22/2024 10:35 PM EDT D-Dimer <230 ng/mL (D-Dimer units) is the threshold for exclusion of DVT/PE. D-Dimer may be elevated in: Critically ill, severely infected, trauma patients, DIC, acute CVA, acute UT, unstable angina, AF, old age, , and smoking. D-Dimer may be decreased with: Initiation of heparin therapy and oral anticoagulants. Yari GODOY LAB BLOOD ORDERABLES Fi nal Result Performing Organization Address [facility]/ZIP Co de Phone Number [facility] [address] [place] [address], [place] [phone] * Blood culture (11/22/2024 2:18 PM EDT) Only the most recent of2 resultswithin the time period is included. Culture, Blood No growth at 5 days LAB MICROBIOLOGY METHOD 11/27/2024 3:01 PM EDT [facility] Blood Venous blood specimen / Unknown Venipuncture / Unknown 11/22/2024 2:18 PM EDT 11/22/2024 2:23 PM EDT us Tai Olivier MD LAB MICROBIOLOGY - GENERAL ORDERABLES Final Result [facility] [address] [place] [address], [place] [phone] * (ABNORMAL) Urinalysis with reflex microscopic and culture (11/22/2024 2:17 PM EDT) Pathologist [facility] Specific [place] Urine 1.014 1.003 - 1.030 LAB URINALYSIS - AUTOMATED METHOD 11/22/2024 2:53 PM EDT [facility] pH, Urine 5.5 5.0 - 8.0 pH LAB URINALYSIS - AUTOMATED METHOD 11/22/2024 2:53 PM EDT [facility] Leukocytes, Urine Trace(A) Negative LAB URINALYSIS - AUTOMATED METHOD 11/22/2024 2:53 PM EDT [facility] Nitrite, Urine Negative Negative LAB URINALYSIS - AUTOMATED METHOD 11/22/2024 2:53 PM EDT [facility] Protein, Urine 30(A) <=Trace mg/dL LAB URINALYSIS - AUTOMATED METHOD 11/22/2024 2:53 PM T [facility] Glucose, Urine Negative Negative mg/dL LAB URINALYSIS - AUTOMATED METHOD 11/22/2024 2:53 PM EDT [facility] Ketones, Urine Trace(A) Negative mg/dL LAB URINALYSIS - AUTOMATED METHOD 11/22/2024 2:53 PM EDT [facility] Urobilinogen , Urine 1.0 0.2 - 1.0 mg/dL LAB URINALYSIS - AUTOMATED METHOD 11/22/2024 2:53 PM T [facility] Bilirubin, Urine Negative Negative LAB URINALYSIS - AUTOMATED METHOD 11/22/2024 2:53 PM EDT [facility] Blood, Urine Negative Negative LAB URINALYSIS - AUTOMATED METHOD 11/22/2024 2:53 PM EDT [facility] RBC, Urine 4.3(H) 0 - 4 /HPF LAB URINALYSIS - AUTOMATED METHOD 11/22/2024 2:53 PM EDT [facility] WBC, Urine 17.7(H) 0 - 4 /HPF LAB URINALYSIS - AUTOMATED METHOD 11/22/2024 2:53 PM EDT [facility] Squamous Epithelial, Urine >100(H) 0 - 60 /LPF LAB URINALYSIS - AUTOMATED METHOD 11/22/2024 2:53 PM EDT [facility] Bacteria, Urine Negative Negative /HPF LAB URINALYSIS - AUTOMATED METHOD 11/22/2024 2:53 PM EDT [facility] Hyaline Casts, Urine 3.0 0 - 3 /LPF LAB URINALYSIS - AUTOMATED METHOD 11/22/2024 2:53 PM EDT [facility] Other Casts, Urine Rare Coarse Granular casts. /LPF 11/22/2024 2:53 PM EDT [facility] Urine Urine specimen obtained by clean catch procedure / Unknown Non-blood Collection / Unknown 11/22/2024 2:17 PM EDT 11/22/2024 2:25 PM EDT us Tai Olivier MD LAB URINE ORDERABLES Final Result [facility] [address] [place] [address], * [place] urine culture tube (11/22/2024 2:17 PM EDT) Extra Tube Hold for add-ons. 11/22/2024 4:01 PM EDT [facility] Comment:Auto resulted. Urine Urine specimen obtained by clean catch procedure / Unknown Non-blood Collection / Unknown 11/22/2024 2:17 PM EDT 11/22/2024 2:26 PM EDT Tai Olivier MD LAB URINE ORDERABLES Final Result Performing Organization Address City/[facility]/ZIP Co de Phone Number [facility] [address] [place] [address], [place] [phone] * Culture urine (11/22/2024 2:17 PM EDT) [facility] Culture, Urine 10,000-49,000 CFU/mL Mixed bacterial morphotypes present suggestive of possible contamination during collection. Suggest appropriate recollection if clinically indicated. 11/23/2024 9:32 AM EDT [facility] Urine Urine specimen obtained by clean catch procedure / Unknown Non-blood Collection / Unknown 11/22/2024 2:17 PM EDT 11/22/2024 2:53 PM EDT Tai Olivier MD LAB MICROBIOLOGY - GENERAL ORDERABLES Final Result Performing Organization Address [facility] Co de Phone Number [facility] [address] [place] [address], [place] [phone] * Respiratory virus panel molecular study (11/22/2024 2:07 PM EDT) [facility] Adenovirus Detection by PCR Not Detected Not Detected LAB MICROBIOLOGY METHOD 11/22/2024 3:19 PM EDT [facility] Influenza A PCR Not Detected Not Detected LAB MICROBIOLOGY METHOD 11/22/2024 3:19 PM EDT [facility] Influenza B PCR Not Detected Not Detected LAB MICROBIOLOGY METHOD 11/22/2024 3:19 PM EDT [facility] Coronavirus 229E Not Detected Not Detected LAB MICROBIOLOGY METHOD 11/22/2024 3:19 PM EDT [facility] Coronavirus HKU1 Not Detected Not Detected LAB MICROBIOLOGY METHOD 11/22/2024 3:19 PM EDT [facility] Coronavirus OC43 Not Detected Not Detected LAB MICROBIOLOGY METHOD 11/22/2024 3:19 PM EDT [facility] Coronavirus NL63 Not Detected Not Detected LAB MICROBIOLOGY METHOD 11/22/2024 3:19 PM EDT [facility] Parainfluenza Virus 1 Not Detected Not Detected LAB MICROBIOLOGY METHOD 11/22/2024 3:19 PM EDT [facility] Parainfluenza Virus 2 Not Detected Not Detected LAB MICROBIOLOGY METHOD 11/22/2024 3:19 PM EDT [facility] Parainfluenza Virus 3 Not Detected Not Detected LAB MICROBIOLOGY METHOD 11/22/2024 3:19 PM EDT [facility] Parainfluenza Virus 4 Not Detected Not Detected LAB MICROBIOLOGY METHOD 11/22/2024 3:19 PM EDT [facility] RSV PCR Not Detected Not Detected LAB MICROBIOLOGY METHOD 11/22/2024 3:19 PM EDT [facility] Human Metapneumovirus A and B Not Detected Not Detected LAB MICROBIOLOGY METHOD 11/22/2024 3:19 PM EDT [facility] Rhinovirus/Entero virus Not Detected Not Detected LAB MICROBIOLOGY METHOD 11/22/2024 3:19 PM EDT [facility] Bordetella pertussis Not Detected Not Detected LAB MICROBIOLOGY METHOD 11/22/2024 3:19 PM EDT [facility] Bordetella parapertussis Not Detected Not Detected LAB MICROBIOLOGY METHOD 11/22/2024 3:19 PM EDT [facility] Mycoplasma pneumo by PCR Not Detected Not Detected LAB MICROBIOLOGY METHOD 11/22/2024 3:19 PM EDT [facility] Chlamydia pneumoniae Not Detected Not Detected LAB MICROBIOLOGY METHOD 11/22/2024 3:19 PM EDT [facility] SARS COV-2 Not Detected Not Detected LAB MICROBIOLOGY METHOD 11/22/2024 3:19 PM EDT [facility] Swab Both anterior nares / Unknown Non-blood Collection / Unknown 11/22/2024 2:07 PM EDT 11/22/2024 2:24 PM EDT Narrative [facility] - 11/22/2024 3:19 PM EDT Testing was performed using the [employer] Respiratory Pathogen PCR Assay. All results must [...] GENERAL ORDERABLES Final Result Performing Organization Address [facility]/ZIP Co de Phone Number [facility] [address] [place] [address], [place] [phone] * Lactate, with Reflex (11/22/2024 1:52 PM EDT) LACTIC ACID 0.6 0.4 - 2.0 mmol/L LAB CHEMISTRY METHOD 11/22/2024 2:53 PM EDT [facility] Blood Venous blood specimen / Unknown Venipuncture / Unknown 11/22/2024 1:52 PM EDT 11/22/2024 2:02 PM EDT Tai Olivier MD LAB BLOOD ORDERABLES Final Result [facility] [address] [place] [address], [place] [phone] * (ABNORMAL) Comprehensive Metabolic Panel (CMP) (11/22/2024 1:52 PM EDT) Sodium 137 133 - 145 mmol/L LAB CHEMISTRY METHOD 11/22/2024 2:46 PM EDT [facility] Potassium 3.6 3.5 - 5.5 mmol/L LAB CHEMISTRY METHOD 11/22/2024 2:46 PM EDT [facility] Chloride 106 96 - 110 mmol/L LAB CHEMISTRY METHOD 11/22/2024 2:46 PM [facility] CO2 27 21 - 32 mmol/L LAB CHEMISTRY METHOD 11/22/2024 2:46 PM [facility] Anion Gap 4 3 - 11 LAB CHEMISTRY METHOD 11/22/2024 2:46 PM [facility] Glucose 89 70 - 100 mg/dL LAB CHEMISTRY METHOD 11/22/2024 2:46 PM [facility] BUN 26(H) 5 - 25 mg/dL LAB CHEMISTRY METHOD 11/22/2024 2:46 PM [facility] Creatinine 1.78(H) 0.50 - 1.10 mg/dL LAB CHEMISTRY METHOD 11/22/2024 2:46 PM [facility] eGFR 34(L) >=60 mL/min/1. 73m2 LAB CHEMISTRY METHOD 11/22/2024 2:46 PM [facility] Comment:Calculation based on the Chronic Kidney Disease Epidemiology Collaboration (CKD-EPI) equation refit without adjustment for race. BUN/Creatinine Ratio 14.6 LAB CHEMISTRY METHOD 11/22/2024 2:46 PM [facility] Calcium 7.9(L) 8.5 - 10.5 mg/dL LAB CHEMISTRY METHOD 11/22/2024 2:46 PM [facility] AST (SGOT) 13 10 - 42 unit/L LAB CHEMISTRY METHOD 11/22/2024 2:46 PM [facility] ALT (SGPT) 7(L) 10 - 60 unit/L LAB CHEMISTRY METHOD 11/22/2024 2:46 PM [facility] Alkaline Phosphatase 77 42 - 121 unit/L LAB CHEMISTRY METHOD 11/22/2024 2:46 PM [facility] Total Protein 5.2(L) 6.0 - 8.0 g/dL LAB CHEMISTRY METHOD 11/22/2024 2:46 PM EDT [facility] Albumin 2.5(L) 3.2 - 5.0 g/dL LAB CHEMISTRY METHOD 11/22/2024 2:46 PM EDT [facility] Total Bilirubin 0.6 0.0 - 1.4 mg/dL LAB CHEMISTRY METHOD 11/22/2024 2:46 PM EDT [facility] Blood Venous blood specimen / Unknown Venipuncture / Unknown 11/22/2024 1:52 PM EDT 11/22/2024 2:07 PM EDT us Tai Olivier MD LAB BLOOD ORDERABLES Final Result [facility] [address] [place] [address], from Last 3 Months Insurance MEDICAID - [place] Advance Directives * Full Code - Default [...] currently active code status orders. Care Teams Splitter Tender Relationship Specialty Start Date End Date Zev Sanders MD [address] [place] [address] PCP - General Internal Medicine 10/27/19
--- OUTSIDE RECORDS SUMMARY | 2025-01-11 18:08 | XMS_ITS | Encounter Summary ---
Author Organization [employer] Address [address] [facility] 7t [place] [address] Care Team Providers Care Underwriting Consultant Name Role Phone Zev Sanders MD Primary Care Provider [phone] Michelle Quiroz RN Unavailable [phone] Gonzalo Lima Unavailable Benedict Lima RN Unavailable [phone] Reason for Visit * Reason Comments Med Refill Encounter Details Date Type Department Care Team (Late st Contact Info) Description 10/28/2024 Refill [facility] [address] [place] [address] Darlene Gant MD [address] [place] [address] Chronic low back pain, unspecified back pain [...] Description 01/17/2025 3:15 PM EDT Office Visit [facility] [address] [place] [address] Zev Sanders MD [address] [place] [address] documented as of this encounter Visit Diagnoses Diagnosis Chronic low back pain, unspecified back pain laterality, unspecified whether sciatica present documented in this encounter Additional Health Concerns Assessment Noted Time PHQ-9 Depression Total Score: 2 10/15/19 25 11:49 AM EDT documented as of this encounter Care Teams Underwriting Consultant Relationship Specialty Start Date End Date Zev Sanders MD [address] [place] [address] PCP - General Internal Medicine 11/16/19 Michelle Quiroz RN [address] [place] [address] Registered Nurse Family Medicine 10/04/24 12/06/24 Gonzalo Lima 10/04/24 Benedict Lima, BIANCA [address] [place] [address] MARIE Thompson [address] Registered Nurse Family Medicine 12/06/24 documented as of this encounter
--- OUTSIDE RECORDS SUMMARY | 2025-01-11 18:08 | XMS_ITS | Encounter Summary ---
Author Organization [employer] Address [address] [facility] 7t [place] [address] Care Team Providers Care Chair Frame Builder Name Role Phone Zev Sanders MD Primary Care Provider [phone] Michelle Quiroz RN Unavailable [phone] Gonz[place] Unavailable Benedict [place]ima RN Unavailable [phone] Encounter Details Date Type Department Care Team (Late st Contact Info) Description 11/23/2024 Orders Only [facility] [address] [place] [address] Provider, MD Josh Social History Tobacco Use [...] Upcoming Encounters Date Type Department Care Team ([facility] st Contact Info) Description 01/17/2025 3:15 PM EDT Office Visit [facility] [address] [place] [address] Zev Sanders MD [address] [place] [address] documented as of this encounter Procedures Procedure [...] documented as of this encounter Care Teams Chair Frame Builder Relationship Specialty Start Date End Date Zev Sanders MD [address] [place] [address] PCP - General Internal Medicine 11/16/19 Michelle Quiroz RN [address] [place] [address] Registered Nurse Family Medicine 10/04/24 12/06/24 Gonzalo Lima 10/04/24 Benedict Lima RN [address] [place] [address] Registered Nurse Family Medicine 12/06/24 documented as of this encounter
--- OUTSIDE RECORDS SUMMARY | 2025-01-11 18:08 | XMS_ITS | Encounter Summary ---
Author Organization [employer] Address [address] [place] [address] [address] [place] [address] Care Team Providers Care Watermaster Name Role Phone Zev Sanders MD Primary Care Provider [phone] Gonzalo Lima Unavailable Benedict Lima RN Unavailable [phone] Reason for Referral * Consultation (Urgent) - Authorized Specialty Diagnoses / Procedures Referred By Armando ye Referred To Contact Orthopaedic Surgery Diagnoses Synovial cyst of right popliteal space Zev Sanders MD [address] [place] [address] Phone: tel: fax: [facility] [address] [place] [address] Phone: tel: fax: Referral ID Status Reason Start Date Expiration Date Visits Requested Visits Authorized [id number] Authorized Specialty Services Required 12/17/2024 12/17/2025 1 1 Encounter Details Date Type Department Care Team (Late st Contact Info) Description 12/15/2024 Orders Only [facility] [address] [place] [address] Zev Sanders MD [address] [place] [address] Essential hypertension (Primary Dx); Synovial cyst of right popliteal space Social History Tobacco Use Types Packs/Day Years Used Date Smoking Tobacco: Former Cigarettes 1 2019 Smokeless Tobacco: Never Alcohol Use Standard [...] Upcoming Encounters Date Type Department Care Team ([facility] st Contact Info) Description 01/17/2025 3:15 PM EDT Office Visit [facility] [address] [place] [address] Zev Sanders MD [address] [place] [address] Scheduled Referrals Name Type Priority Associated Diagnoses Order Schedule Referral to Orthopaedic Surgery Outpatient Referral Urgent Synovial cyst of right popliteal space Expected: 12/17/2024 (Approximate), Expires: 12/17/2025 documented as of this encounter Procedures Procedure Name Priority Date/Time Associated Diagnosis Comments CT CHEST WO CONTRAST Routine 01/11/2025 3:56 PM EDT documented in this encounter Results * CT Chest w/o Contrast (01/11/2025 3:56 PM EDT) Anatomical Region Laterality Modality Body, Chest Computed Tomogra phy 01/11/2025 3:56 PM EDT Narrative 01/11/2025 5:05 PM EDT [place] [address] CT Scan Report Signed Patient: Deysi Pfeiffer MR#: [id number] : 1970 Acct:[id number] Age/Sex: 54 / F ADM Date: 01/11/25 Loc: HO.CT Attending Dr: Erickson Mathews MD Ordering Physician: Erickson Mathews MD Date of Service: 01/11/25 Procedure(s): CT chest wo IV con Accession Number(s): [id number] cc: Erickson Mathews MD; Zev Sanders MD Report Number: [id number]: Total DLP = 78.00 mGy-cm Reason for [...] 01/11/25 1701 DD/ 1556 TD/TT: 01/11/25 1624 Personal Banking Assistant: Procedure Note Donotuseinterpreter, Image - 01/11/[address] [address] [address] Scan Report Signed Patient: Deysi Pfeiffer DMR#: [id number] : 1970Acct:[id number] Age/Sex: 54 / FADM Date: 01/11/25 Loc: HO.CT Attending Dr: Erickson Mathews MD Ordering Physician: Erickson Mathews MD Date of Service: 01/11/25 Procedure(s): CT chest wo IV con Accession Number(s): [id number] cc: Erickson Mathews MD; Zev Sanders MD Report Number: [id number]: Total DLP = 78.00 mGy-cm Reason for [...] 01/11/25 1701 DD/ 1556 TD/TT: 01/11/25 1624 Personal Banking Assistant: [facility] External Provider IMG CT PROCEDURES Final Result documented in this encounter Visit Diagnoses Diagnosis Essential hypertension- Primary Unspecified essential hypertension Synovial cyst of right popliteal space documented in this encounter Additional Health Concerns Assessment Noted Time PHQ-9 Depression Total Score: 2 10/15/19 11:49 AM EDT documented as of this encounter Care Teams Watermaster Relationship Specialty Start Date End Date Zev Sanders MD [address] [place] [address] PCP - General Internal Medicine 11/16/19 Gonzalo Lima 10/04/24 Benedict Lima RN [address] [place] [address] Registered Nurse Family Medicine 12/06/24 documented as of this encounter
--- OUTSIDE RECORDS SUMMARY | 2025-01-11 18:08 | XMS_ITS | Encounter Summary ---
Author Organization [employer] Address [address] [facility] [address] 7[address] [place] [address] Care Team Providers Care Finger Cobbler Name Role Phone Zev Sanders MD Primary Care Provider [phone] Michelle Quiroz RN Unavailable [phone] Gonzalo [place] Unavailable Benedict Lima RN Unavailable [phone] Encounter Details Date Type Department Care Team (Late st Contact Info) Description 11/25/2024 Orders Only [facility] [address] [place], [place] [id number] Provider, MD Josh Social History Tobacco Use [...] ([facility] st Contact Info) Description 01/17/2025 3:15 PM EDT Office Visit [facility] [address] [place] [address] Zev Sanders MD [address] [place] [address] documented as of this encounter Procedures Procedure [...] documented as of this encounter Care Teams Finger Cobbler Relationship Specialty Start Date End Date Zev Sanders MD [address] [place] [address] PCP - General Internal Medicine 11/16/19 Michelle Quiroz RN [address] [place] [address] Registered Nurse Family Medicine 10/04/24 12/06/24 Gonzalo Lima 10/04/24 Benedict Lima, BIANCA [address] [place] [address] Registered Nurse Family Medicine 12/06/24 documented as of this encounter
--- OUTSIDE RECORDS SUMMARY | 2025-01-11 18:08 | XMS_ITS | Encounter Summary ---
Author Organization [employer] Address [address] [facility] 7t [place] [address] Care Team Providers Care Frog Catcher Name Role Phone Zev Sanders MD Primary Care Provider [phone] Gonzalo Lima Unavailable Benedict Lima RN Unavailable [phone] Encounter Details Date Type Department Care Team (Latest Contact Info) Description 01/06/2025 Travel Social History Tobacco Use Types Packs/Day [...] Encounters Date Type Department Care Team ([facility] st Contact Info) Description 01/17/2025 3:15 PM EDT Office Visit [facility] [address] [place] [address] Zev Sanders MD [address] [place] [address] documented as of this encounter Visit Diagnoses Not on filedocumented in this encounter Additional Health Concerns Assessment Noted Time PHQ-9 Depression Total Score: 2 10/15/19 11:49 AM EDT documented as of this encounter Care Teams Frog Catcher Relationship Specialty Start Date End Date Zev Sanders MD [address] [place] [address] PCP - General Internal Medicine 11/16/19 Gonzalo Lima 10/04/24 Benedict Lima, RN [address] [place] [address] Registered Nurse Family Medicine 12/06/24 documented as of this encounter
--- OUTSIDE RECORDS SUMMARY | 2025-01-11 18:08 | XMS_ITS | Encounter Summary ---
Author Organization [employer] Address [address] [place] [address] 7t [place] [address] Care Team Providers Care Poultry Culler Name Role Phone Zev Sanders MD Primary Care Provider [phone] Michelle Quiroz RN Unavailable [phone] Gonzalo [place]ima Unavailable Benedict Lima RN Unavailable [phone] Encounter Details Date Type Department Care Team (Late Contact Info) Description 10/22/2022 Orders Only [facility] MED & PEDS [address] [place] [address] Zev Sanders MD [address] [place] [address] Gastroenteritis (Primary Dx) Social History Tobacco Use [...] Care Team ([facility] Contact Info) Description 01/17/2025 3:15 PM EDT Office Visit [facility] [address] [place] [address] Zev Sanders MD [address] [place] [address] documented as of this encounter Visit Diagnoses Diagnosis Gastroenteritis- Primary Other and unspecified noninfectious gastroenteritis and colitis documented in this encounter Care Teams Poultry Culler Relationship Specialty Start Date End Date Zev Sanders MD [address] [place] [address] PCP - General Internal Medicine 11/16/19 Michelle Quiroz RN [address] [place] [address] Registered Nurse Family Medicine 10/04/24 12/06/24 Gonzalo Lima 10/04/24 Benedict Lima, BIANCA [address] [place] [address] Registered Nurse Family Medicine 12/06/24 documented as of this encounter
== END 2025-01-11 15:18 | disposition home or self-care (01) ==
LOC: HO.CT 15:17
PROVIDERS: PCP Internal Medicine; Visit Provider Internal Medicine
DX: R91.8 Other nonspecific abnormal finding of lung field (principal); J18.9 Pneumonia, unspecified organism
CPT/HCPCS: 71250

== ENCOUNTER → 2025-01-11 15:18 | Outpatient (BNV) | payer MEDICAID, SELFPAY | PROVIDERS: PCP Internal Medicine; Visit Provider Radiology Diagnostic Radiology | DX: R91.8 Other nonspecific abnormal finding of lung field (principal) | CPT/HCPCS: 71250 ==

== ENCOUNTER 2025-01-13 14:26 | Outpatient (AMB) | payer MEDICAID, SELFPAY ==
--- NOTE | 2025-01-13 14:29 | MHC.OFFVIS ---
Vital Signs 01/13/25 14:40 Height 5 ft 4 in Weight 120 lb 2 oz BMI 20.6 BP 120/71 Blood Pressure Location Rt brachial Pulse 93 Pulse Source Pulse Oximeter Pulse Oximetry (%) 96 Oxygen Delivery Method Room Air Intake Visit Reasons: Medication Count Intake Note: Deysi comes in today for a pill count to oxycodone, patient should have 57 tablets and presents with 60 tablets which she last took today 01/13/25 at 8:30 am. Pain today 6/10 Satellite Specialist Required: No Accompanied by: Spouse Allergies Penicillins (PENICILLINS) Allergy (Severe, Verified 01/13/25 14:40) RASH seafood Allergy (Verified 01/13/25 14:40) Rash HPI Comments Details: Patient presents today for a pill count. She is supposed to have #57 pills in her possession and presents with #60 pills. This demonstrates a responsible attitude in regards to her opioid regimen. Patient reports adequate analgesia on her current regime without side effects. Pain is rated at 6/10, mainly affecting her chronic neck and lower back areas with movements, walking or prolonged standing. Patient utilizes oxygen 2-3 L with rest or sitting and 3-4 L with ambulation. She [place] [facility] [place]. Patient denies any fever, chills, weight loss, abdominal or groin pain, constipation, urinary retention, sedation, nausea, vomiting, constipation, sedation, dizziness, or urinary retention. [facility] Medical History Current non-smoker but past smoking history unknown Respiratory failure with hypoxia COPD exacerbation Pre-op examination History of OCD (obsessive compulsive disorder) History of panic attacks Anxiety and depression Radiculopathy, lumbar region HTN (hypertension) Sacroiliitis COPD (chronic obstructive pulmonary disease) Asthma Allergic rhinitis Disc degeneration, lumbar Surgical History History of surgery History of appendectomy Hx of tonsillectomy Status post excision of lipoma History of tubal ligation Hx of excision of mass History of surgery History of laparoscopic cholecystectomy History of esophagogastroduodenoscopy (EGD) History of umbilical hernia repair History of incision and drainage Family History Family/Other Cervical cancer Family/Other Stomach cancer Social History Household Members: Significant Other and Family Household Members Other:: grandson Housing: House Do you presently have visiting nurse or other home services: No Alcohol intake: never Comment: Significant other bedside Patient Tobacco Use Status: Former Tobacco user Tobacco use type: Cigarette Substance Use Type: Marijuana Advance Directives Date on File: 04/09/24 service: No Current occupational status: unemployed Sexual orientation: Straight/Heterosexual Gender identity: Female Review of Systems Const All systems reviewed & are unremarkable except as noted in HPI and below Physical Exam Vital Signs: Last Vital Signs Pulse 93 01/13/25 14:40 BP 120/71 01/13/25 14:40 Pulse Ox 96 01/13/25 14:40 Oxygen Delivery Method Room Air 01/13/25 14:40 BMI result Body Mass Index 20.6 General: Appears afebrile. Alert and oriented. Mood and affect appropriate. Pleasant. Follows and participates in conversation appropriately. Respiratory effort is unlabored. No cough. O2 at 3L/min continuos. Able to transition from sit to stand unassisted. Ambulates with antalgic gait, mild limping. Psych Appearance: grossly normal and well kempt Mental Status: mental status grossly normal Speech and movement: Normal speech and movement present Affect: normal affect Attitude: cooperative Thought process: Normal thought process present Thought content: Normal thought content present, suicidality (none), no hallucinations and Depressive thoughts present Insight: Good insight present (Psych) Judgement: Good judgement present (Psych) Results Reviewed Results Reviewed: MRI LUMBAR SPINE WITHOUT CONTRAST EXAM DATE 05/07/2019 The marrow signal is within normal limits. Moderate disc space narrowing at L3-L4, severe loss of disc height L4-5 with endplate spurring mild endplate edema laterally on the right at L4-5. Mild rightward curvature of lumbar spine. No compression fractures. Trace anterior subluxation at L4-5. The paraspinal soft tissues appear normal. Bony pelvis is normal. Conus medullaris: Normal terminating at the level of L1. No level a spinal cord abnormalities. The cauda equina nerve roots are normal. Spinal levels: L1-L2: No disc pathology. No central canal stenosis or foraminal narrowing. L2-L3: Very mild disc bulge presents without central canal stenosis or foraminal encroachment. L3-L4: Moderate loss of disc height with large left foraminal disc extrusion! Severely compressing the exiting left L3 nerve root. Underlying mild disc bulge and mild facet arthropathy. No central canal stenosis. L4-5: Significant loss of disc height with broad-based disc bulge and right foraminal extraforaminal disc protrusion mildly distorting the exiting right L4 nerve root. Moderate facet arthropathy without central canal stenosis. L5-S1: Mild facet arthrosis no disc pathology: No central canal stenosis, or foraminal narrowing. XR SOFT TISSUE NECK 06/09/23 FINDINGS: Limited evaluation of the lower cervical spine secondary to patient positioning. No acute visible fracture or dislocation. Multilevel degenerative changes. Vertebral body heights and disc spaces are maintained. Prevertebral soft tissues unremarkable. Posterior elements are intact. Paraspinal soft tissues are unremarkable. Visualized portions of the upper chest are unremarkable. IMPRESSION: 1. Limited evaluation of the lower cervical spine secondary to patient positioning. 2. No acute visible fracture or dislocation. 3. Multilevel degenerative changes. CT/CT soft tissue neck w IV con 06/25/23 IMPRESSION: No cervical adenopathy or extra-mucosal soft tissue mass. Rightward curvature of the cervical spine with multilevel hypertrophic facet arthropathy. Mild amount of secretions in the tracheal airway which potentially would put the patient at risk for aspiration. Significant emphysematous changes in the lungs. XR ANKLE 3 OR MORE VIEWS RIGHT 05/14/24 HISTORY: pain COMPARISON: There are no prior studies available for comparison. FINDINGS: Three views of the right ankle are submitted. Osseous mineralization is normal. There is no fracture or dislocation. The joint spaces are preserved. The soft tissues are unremarkable. IMPRESSION: Unremarkable examination of the right ankle. Assessment & Plan Assessment & Plan (1) Opioid contract exists: Code(s): Z79.891 - buttermaker continuous churn (current) use of opiate analgesic Category: Medical (2) Cervicalgia: Code(s): M54.2 - Cervicalgia Category: Medical (3) Disc degeneration, lumbar: Code(s): M51.36 - Other intervertebral disc degeneration, lumbar region Category: Medical (4) Spondylosis of lumbar region without myelopathy or radiculopathy: Code(s): M47.816 - Spondylosis without myelopathy or radiculopathy, lumbar region Category: Medical (5) Chronic pain syndrome: Code(s): G89.4 - Chronic pain syndrome Category: Medical Plan Patient has shown accountability for her medication regimen and the pill count was accurate. Masspat was reviewed and without concerns. No obvious signs of diversion, abuse or misuse of the opioid medications. Patient reports reasonable analgesia on current medication regime. Prescription sent for Oxycodone 5mg po TID prn with an advanced date of 02/01/25. Patient has Narcan script at home. She also takes pregabalin 150 mg BID prescribed by her PCP. Patient to follow-up in the office in 4-5 weeks for pill count and sooner as needed. Medications: Refilled oxycodone Partial Fill upon patient request. 5 mg PO TID PRN 90 tabs 0RF pain 30 days M46.1 - Sacroiliitis, not elsewhere classified, M47.816 - Spondylosis without myelopathy or radiculopathy, lumbar region, M51.36 - Other intervertebral disc degeneration, lumbar region Coding Level of Care Code Est Pt Level 4 (21487) Complex EM visit Add On G2211 Diagnoses Opioid contract exists Z79.891 Cervicalgia M54.2 Disc degeneration, lumbar M51.36 Spondylosis of lumbar region without myelopathy or radiculopathy M47.816 Chronic pain syndrome G89.4
[2025-01-13 14:40] VITALS: BP 120/71; PULSE 93; O2SAT 96; BMI 20.6
--- OUTSIDE RECORDS SUMMARY | 2025-01-13 18:15 | XMS_ITS | Encounter Summary ---
Author Organization [employer] Address [address] [place] [address] 7t [place] [address] Care Team Providers Care Flight Coordinator Name Role Phone Zev Sanders MD Primary Care Provider [phone] Michelle Quiroz RN Unavailable [phone] Gonzalo Lima Unavailable Benedict Lima RN Unavailable [phone] Encounter Details Date Type Department Care Team (Late st Contact Info) Description 12/24/2022 Orders Only [facility] MEDICINE [address] [place] [address] Provider, MD Josh Social History Tobacco Use [...] 3:15 PM EDT Office Visit [facility] CHC MED & PEDS [address] [place], [place] [phone] Zev Sanders MD [address] [place], [place] [phone] documented as of this encounter Procedures Procedure Name Priority Date/Time Associated Diagnosis Comments HM PAP/HPV Routine 01/15/2022 documented in this encounter Results * Hm Pap Smear (01/15/2022) us Historical Provider HEALTH MAINTENANCE Final Result documented in this encounter Visit Diagnoses Not on filedocumented in this encounter Care Teams Flight Coordinator Relationship Specialty Start Date End Date Zev Sanders MD [address] [place] [address] PCP - General Internal Medicine 11/16/19 Michelle Quiroz RN [address] [place] [address] Registered Nurse Family Medicine 10/04/24 12/06/24 Gonzalo Lima 10/04/24 Benedict Lima RN [address] [place] [address] Registered Nurse Family Medicine 12/06/24 01/12/25 documented as of this encounter
--- OUTSIDE RECORDS SUMMARY | 2025-01-13 18:15 | XMS_ITS | Encounter Summary ---
Author Organization [employer] Address [address] [facility] 7t [place] [address] Care Team Providers Care Finance Business Partner Name Role Phone Zev Sanders MD Primary Care Provider [phone] Michelle Quiroz RN Unavailable [phone] Gonzalo Lima Unavailable Benedict Lima RN Unavailable [phone] Reason for Visit * Reason Comments Med Refill Encounter Details Date Type Department Care Team (Late st Contact Info) Description 10/28/2024 Refill [facility] CHC MED & PEDS [address] [place] [address] Darlene Gant MD [address] [place] [address] Chronic low back pain, unspecified back pain [...] Description 01/17/2025 3:15 PM EDT Office Visit [facility] CHC MED & PEDS [address] [place] [address] Zev Sanders MD [address] [place] [address] documented as of this encounter Visit Diagnoses Diagnosis Chronic low back pain, unspecified back pain laterality, unspecified whether sciatica present documented in this encounter Additional Health Concerns Assessment Noted Time PHQ-9 Depression Total Score: 2 10/15/19 25 11:49 AM EDT documented as of this encounter Care Teams Finance Business Partner Relationship Specialty Start Date End Date Zev Sanders MD [address] [place] [address] PCP - General Internal Medicine 11/16/19 Michelle Quiroz RN [address] [place] [address] Registered Nurse Family Medicine 10/04/24 12/06/24 Gonzalo Lima 10/04/24 Benedict Lima RN [address] [place] [address] MARIE Thompson [address] Registered Nurse Family Medicine 12/06/24 01/12/25 documented as of this encounter
--- OUTSIDE RECORDS SUMMARY | 2025-01-13 18:15 | XMS_ITS ---
Author Organization [employer] Address [address] [place] [address] 7 [place] [address] Care Team Providers Care Chemical Equipment Sales Engineer Name Role Phone Zev Sanders MD Primary Care Provider [phone] Gonzalo Lima CHW Complex Status:Enrolled (Active) Start date:10/04/2024 Enrollment date:10/14/2024 Enrollment reason:ADT Feed Overview ADT-[facility] ED 10/01/24 shortness of breath Case Team Name Relationship Phone Gonzalo Lima(Responsible Staff) [phone] Continued Care and Services Coordination
--- OUTSIDE RECORDS SUMMARY | 2025-01-13 18:15 | XMS_ITS | Encounter Summary ---
Author Organization [employer] Address [address] [facility] 7t [place] [address] Care Team Providers Care Marine Meteorologist Name Role Phone Zev Sanders MD Primary Care Provider [phone] Gonzalo Lima Unavailable Benedict Lima RN Unavailable [phone] Reason for Visit * Reason Comments Care Management C3CM- f/u call #2 lv m Encounter Details Date Type Department Care Team (Late st Contact Info) Description 01/12/2025 Patient Outreach [facility] MEDICINE [address] [place] [address] Zev Sanders MD [address] [place] [address] Care Management (C3CM- f/u call #2 lvm) Social History Tobacco Use Types Packs/Day [...] Progress Notes * Benedict Lima RN - 01/12/2025 9:08 AM EDT CM Benedict Lima RN had previously placed outbound call to the patient with the intentions of graduation from the Care Management Program. Progress towards the set goals has been made and impending graduation from the program has been discussed in detail with the patient during prior conversations. CM placed additional outbound call to the patient to graduate from the program. No answer at this time. LVM introducing herself from [facility] CM Department. CM notified patient of theirgraduation from the Care Management Program. Education provided on how to receive services in the future. CM reinforced direct contact information for any additional questions or concer ns. Education provided on Walk-In Urgent Care located in [facility]. Patient provided with after-hours line for [facility], , which offer night time triage service and option to transfer to oncall provider if needed. CM reminded patient of her scheduled f/u with PCP on 01/17/25 at 3:15pm. Advised patient f/u with any questions or concerns. * Benedict Lima RN - 01/12/2025 9:08 AM EDT Benedict Lima RN, sent notification to PCP Dr. Sanders to inform that patient has completed [id number] Complex Care program with goals partially/fully met at this time. documented in this encounter Plan of Treatment Upcoming Encounters Date Type Department Care Team (Late st Contact Info) Description 01/17/2025 3:15 PM EDT Office Visit [facility] MED & PEDS [address] [place] [address] Zev Sanders MD [address] [place] [address] documented as of this encounter Visit Diagnoses Not on filedocumented in this encounter Additional Health Concerns Assessment Noted Time PHQ-9 Depression Total Score: 2 10/15/19 11:49 AM EDT documented as of this encounter Care Teams Marine Meteorologist Relationship Specialty Start Date End Date Zev Sanders MD [address] [place] [address] PCP - General Internal Medicine 11/16/19 Gonzalo Lima 10/04/24 Benedict Lima RN [address] [place] [address] Registered Nurse Family Medicine 12/06/24 01/12/25 documented as of this encounter
--- OUTSIDE RECORDS SUMMARY | 2025-01-13 18:15 | XMS_ITS ---
Author Organization [employer] Address [address] [place] [address] 7 [place] [address] Care Team Providers Care Personal Clothing Laundry Aide Name Role Phone Zev Sanders MD Primary Care Provider [phone] Gonzalo Lima CM Complex Status:Closed (Closed) Start date:10/04/2024 Enrollment date:10/14/2024 Enrollment reason:ADT Feed End date:01/12/2025 Close reason:Goals Met Overview ADT-[facility] ED 10/01/24 shortness of breath Continued Care and Services Coordination
--- OUTSIDE RECORDS SUMMARY | 2025-01-13 18:15 | XMS_ITS | Encounter Summary ---
Author Organization [employer] Address [address] [facility] 7 [place] [address] Care Team Providers Care Preparatory Technician Name Role Phone Zev Sanders MD Primary Care Provider [phone] Michelle Quiroz RN Unavailable [phone] Gonzalo Lima Unavailable Benedict Lima RN Unavailable [phone] Reason for Visit * Reason Onset Date Comments ER Follow-up 10/04/2024 Encounter Details Date Type Department Care Team (Late st Contact Info) Description 10/04/2024 Telephone [facility] CHC MED & PEDS [address] [place], [place] [phone] Zev Sanders MD [address] [place], [place] [phone] ER Follow-up Social History Tobacco Use Types [...] to report ED visit on : Date: [facility]: 10/01/24 Seen for: Trouble breathing Symptomatic No Requesting a referral to call manager [place] [facility] [place] Contact pt at [phone] documented in this encounter Plan of Treatment Upcoming Encounters Date Type Department Care Team ([facility] st Contact Info) Description 01/17/2025 3:15 PM EDT Office Visit [facility] MED & PEDS [address] [place] [address] Zev Sanders MD [address] [place] [address] documented as of this encounter Visit Diagnoses Not on filedocumented in this encounter Additional Health Concerns Assessment Noted Time PHQ-9 Depression Total Score: 7 10/14/19 24 11:59 AM EDT documented as of this encounter Care Teams Preparatory Technician Relationship Specialty Start Date End Date Zev Sanders MD [address] [place] [address] PCP - General Internal Medicine 11/16/19 Michelle Quiroz, BIANCA [address] [place], [place] [phone] Registered Nurse Family Medicine 10/04/24 12/06/24 Gonzalo Lima 10/04/24 Benedict Lima RN [address] [place], [place] [phone] Registered Nurse Family Medicine 12/06/24 01/12/25 documented as of this encounter
--- OUTSIDE RECORDS SUMMARY | 2025-01-13 18:15 | XMS_ITS | Encounter Summary ---
Author Organization [employer] Address [address] [place] [address] [address] [place] [address] Care Team Providers Care Mortar Mixer Name Role Phone Zev Sanders MD Primary Care Provider [phone] Gonzalo Lima Unavailable Benedict Lima RN Unavailable [phone] Reason for Referral * Consultation (Urgent) - Authorized Specialty Diagnoses / Procedures Referred By Armando ye Referred To Contact Orthopaedic Surgery Diagnoses Synovial cyst of right popliteal space Zev Sanders MD [address] [place] [address] Phone: tel: fax: [facility] [address] [place] [address] Phone: tel: fax: Referral ID Status Reason Start Date Expiration Date Visits Requested Visits Authorized [id number] Authorized Specialty Services Required 12/17/2024 12/17/2025 1 1 Encounter Details Date Type Department Care Team (Late st Contact Info) Description 12/15/2024 Orders Only [facility] CHC MED & PEDS [address] [place] [address] Zev Sanders MD [address] [place] [address] Essential hypertension (Primary Dx); Synovial cyst of [...] ([facility] st Contact Info) Description 01/17/2025 3:15 PM EDT Office Visit [facility] CHC MED & PEDS [address] [place] [address] Zev Sanders MD [address] [place] [address] Scheduled Referrals Name Type Priority Associated Diagnoses [...] PM EDT Narrative 01/11/2025 5:05 PM EDT [place] [address] [address] Scan Report Signed Patient: Deysi Pfeiffer MR#: [id number] : 1970 Acct:[id number] Age/Sex: 54 / F ADM Date: 01/11/25 Loc: HO.CT Attending Dr: Erickson Mathews MD Ordering Physician: Erickson Mathews MD Date of Service: 01/11/25 Procedure(s): CT chest wo IV con Accession Number(s): [id number] cc: Erickson Mathews MD; Zev Sanders MD Report Number: [id number]: Total DLP = 78.00 mGy-cm Reason for [...] 01/11/25 1701 DD/ 1556 TD/TT: 01/11/25 1624 Nylon Winder: Procedure Note Donotuseinterpreter, Image - 01/11/[address] [address] [address] Scan Report Signed Patient: Deysi Pfeiffer DMR#: [id number] : 1970Acct:[id number] Age/Sex: 54 / FADM Date: 01/11/25 Loc: HO.CT Attending Dr: Erickson Mathews MD Ordering Physician: Erickson Mathews MD Date of Service: 01/11/25 Procedure(s): CT chest wo IV con Accession Number(s): [id number] cc: Erickson Mathews MD; Zev Sanders MD Report Number: [id number]: Total DLP = 78.00 mGy-cm Reason for [...] 01/11/25 1701 DD/ 1556 TD/TT: 01/11/25 1624 Nylon Winder: [facility] External Provider IMG CT PROCEDURES Final Result documented in this encounter Visit Diagnoses Diagnosis Essential hypertension- Primary Unspecified essential hypertension Synovial cyst of right popliteal space documented in this encounter Additional Health Concerns Assessment Noted Time PHQ-9 Depression Total Score: 2 10/15/19 11:49 AM EDT documented as of this encounter Care Teams Mortar Mixer Relationship Specialty Start Date End Date Zev Sanders MD [address] [place] [address] PCP - General Internal Medicine 11/16/19 Gonzalo Lima 10/04/24 Benedict Lima RN [address] [place] [address] Registered Nurse Family Medicine 12/06/24 01/12/25 documented as of this encounter
--- OUTSIDE RECORDS SUMMARY | 2025-01-13 18:16 | XMS_ITS | Encounter Summary ---
Author Organization [employer] Address [address] [facility] [address] 7[address] [place] [address] Care Team Providers Care Precision Lathe Operator Name Role Phone Zev Sanders MD Primary Care Provider [phone] Michelle Quiroz RN Unavailable [phone] Gonzalo Lima Unavailable Benedict Lima RN Unavailable [phone] Encounter Details Date Type Department Care Team (Late st Contact Info) Description 11/24/2024 Orders Only [facility] CHC MED & PEDS [address] [place], [place] [phone] Provider, MD Josh Social History Tobacco Use [...] your housing situation today? I have kiran azvala 10/14/[address] you li [...] Upcoming Encounters Date Type Department Care Team ([facility] st Contact Info) Description 01/17/2025 3:15 PM EDT Office Visit [facility] MED & PEDS [address] [place] [address] Zev Sanders MD [address] [place] [address] documented as of this encounter Procedures Procedure [...] as of this encounter Care Teams Precision Lathe Operator Relationship Specialty Start Date End Date Zev Sanders MD [address] [place] [address] PCP - General Internal Medicine 11/16/19 Michelle Quiroz, BIANCA [address] [place], [place] [phone] Registered Nurse Family Medicine 10/04/24 12/06/24 Gonzalo Lima 10/04/24 Benedict Lima, BIANCA [address] [place], [place] [phone] Registered Nurse Family Medicine 12/06/24 01/12/25 documented as of this encounter
--- OUTSIDE RECORDS SUMMARY | 2025-01-13 18:16 | XMS_ITS | Encounter Summary ---
Author Organization [employer] Address [address] [facility] 7 [place] [address] Care Team Providers Care Supervisor Rolling Room Name Role Phone Zev Sanders MD Primary Care Provider [phone] Michelle Quiroz RN Unavailable [phone] Gonzalo Lima Unavailable Benedict Lima RN Unavailable [phone] Encounter Details Date Type Department Care Team ([facility] Contact Info) Description 04/12/2022 [facility] Only [place] [facility] [address] [place] [address] Zev Sanders MD [address] [place], [place] [phone] Social History Tobacco Use Types Packs/Day Years [...] Encounters Date Type Department Care Team ([facility] Contact Info) Description 01/17/2025 3:15 PM EDT Office Visit [facility]EDS [address] [place] [address] Zve Sanders MD [address] [place] [address] documented as of this encounter Procedures Procedure [...] Final Result [facility] [address] [place], [place] [phone] * (ABNORMAL) VENOUS BLOOD GAS (09/04/2022 1:17 PM EDT) VBG pH 7.37 7.32 - 7.43 [facility] Comment:METER #: [id number] additional_comment: Cb murpe VBG PCO2 57 mmHg [facility] Comment:METER #: [id number] additional_comment: Cb murpe VBG PO2 48 mmHg [facility] Comment:METER #: [id number] additional_comment: Cb murpe VBG Base Excess 6.2 mmol/L [facility] Comment:METER #: [id number] additional_comment: Cb murpe VBG HCO3 33(H) 22 - 26 mmol/L [facility] Comment:METER #: [id number] additional_comment: Cb murpe O2 Sat, Lefty 77.0 % [facility] Comment:METER #: [id number] additional_comment: Cb murpe 09/04/2022 1:17 PM EDT 09/04/2022 1:23 PM EDT [facility] External Provider LAB BLO OD ORDERABLES Final Result Performing Organization Address [facility] de Phone Number [facility] [address] [place] [phone] * D Dimer High Sensitivity (09/04/2022 [...] 1:10 PM EDT 09/04/2022 1:18 PM EDT [facility] External Provider LAB BLO OD ORDERABLES Final Result Performing Organization Address [facility] Co de Phone Number [facility] [address] [place] [phone] * B Type Natriuretic Peptide (BNP) [...] 6 AM EDT 09/04/2022 1:27 PM EDT [facility] External Provider LAB BLO OD ORDERABLES Final Result [facility] [address] [place] [phone] * (ABNORMAL) Comprehensive Metabolic Panel (09/04/2022 [...] 1.210.Chronic Kidney Disease: Estimated GFR < 60 mL/min/1.11c9Teunaj Kidney Disease: Estimated GFR < 15 mL/min/1.73m2 [...] AM EDT 09/04/2022 11:33 AM EDT us [facility] External Provider LAB BLO OD ORDERABLES Final Result [facility] [address] [place] [phone] * COVID-19 ID NOW ([employer]) (09/04/2022 11:26 AM EDT) IDNOW SERIAL# [id number] [facility] COVID-19 TEST Negative Negative [facility] COVID-19 NOTE See Note [facility] Comment: Results are for the identification of SARS-CoV2 RNA. TheSARS-CoV2 RNA is generally detectable in respiratory samplesduring the acute phase of infection. Positive results areindicative of the presence of SARS-CoV-2 RNA; clinicalcorrelation with patient history and other diagnosticinformation is necessary to determine patient infectionstatus. Positive results do not rule out bacterial infectionor co- infection with other viruses.Testing facilities within the [facility] and itsterritories are required to [...] use by authorized laboratories.Testing performed on the [employer] ID NOW utilizing NAAT. 09/04/2022 11:2 6 AM EDT 09/04/2022 11:33 AM EDT us [facility] Exter nal Provider LAB MOLECULAR DIAGNOSTICS ORDERABLES Final Result [facility] [address] [place] [phone] * (ABNORMAL) CBC auto differential [...] AM EDT 09/04/2022 11:33 AM EDT us [facility] External Provider LAB BLO OD ORDERABLES Final Result [facility] [address] [place] [phone] documented in this encounter Visit Diagnoses Not on filedocumented in this encounter Care Teams Supervisor Rolling Room Relationship Specialty Start Date End Date Zev Sanders MD [address] [place] [address] PCP - General Internal Medicine 11/16/19 Michelle Quiroz RN [address] [place] [address] Registered Nurse Family Medicine 10/04/24 12/06/24 Gonzalo Lima 10/04/24 Benedict Lima RN [address] [place] [phone] Registered Nurse Family Medicine 12/06/24 01/12/25 documented as of this encounter
--- OUTSIDE RECORDS SUMMARY | 2025-01-13 18:16 | XMS_ITS | Encounter Summary ---
Author Organization [employer] Address [address] [place] [address] 7 [place] [address] Care Team Providers Care Open Hearth Door Liner Name Role Phone Zev Sanders MD Primary Care Provider [phone] Michelle Quiroz RN Unavailable [phone] Gonzalo Lima Unavailable Benedict Lima RN Unavailable [phone] Reason for Visit * Reason Onset Date Comments Appointment Request 11/01/2022 Encounter Details Date Type Department Care Team (Late st Contact Info) Description 11/01/2022 Telephone [facility] [address] [place], [place] [phone] Zev Sanders MD [address] [place], [place] [phone] Appointment Request Social History Tobacco Use Types [...] PE on 10/24/2022. Please contact pt at [phone] documented in this encounter Plan of Treatment Upcoming Encounters Date Type Department Care Team ([facility] st Contact Info) Description 01/17/2025 3:15 PM EDT Office Visit [facility] MED & PEDS [address] [place] [address] Zev Sanders MD [address] [place] [address] documented as of this encounter Visit Diagnoses Not on filedocumented in this encounter Care Teams Open Hearth Door Liner Relationship Specialty Start Date End Date Zev Sanders MD [address] [place] [address] PCP - General Internal Medicine 11/16/19 Michelle Quiroz RN [address] [place] [address] Registered Nurse Family Medicine 10/04/24 12/06/24 Gonzalo Lima 10/04/24 Benedict Lima, BIANCA [address] [place] [address] Registered Nurse Family Medicine 12/06/24 01/12/25 documented as of this encounter
--- OUTSIDE RECORDS SUMMARY | 2025-01-13 18:16 | XMS_ITS | Encounter Summary ---
Author Organization [employer] Address [address] [place] [address] 7 [place] [address] Care Team Providers Care Tool Analyst Name Role Phone Zev Sanders MD Primary Care Provider [phone] Michelle Quiroz RN Unavailable [phone] Gonzalo Lima Unavailable Benedict Lima RN Unavailable [phone] Reason for Visit * Reason Comments Med Refill Encounter Details Date Type Department Care Team (Late Contact Info) Description 11/05/2022 Refill [facility] MED & PEDS [address] [place], [place] [phone] Zev Sanders MD [address] [place], [place] [phone] Chronic low back pain, unspecified back pain [...] Upcoming Encounters Date Type Department Care Team ([facility] Contact Info) Description 01/17/2025 3:15 PM EDT Office Visit [facility] MED & PEDS [address] [place] [address] Zev Sanders MD [address] [place] [address] documented as of this encounter Visit Diagnoses Diagnosis Chronic low back pain, unspecified back pain laterality, unspecified whether sciatica present documented in this encounter Care Teams Tool Analyst Relationship Specialty Start Date End Date Zev Sanders MD [address] [place] [address] PCP - General Internal Medicine 11/16/19 Michelle Quiroz RN [address] [place] [phone] Registered Nurse Family Medicine 10/04/24 12/06/24 Gonzalo Lima 10/04/24 Benedict Lima RN [address] [place] [phone] Registered Nurse Family Medicine 12/06/24 01/12/25 documented as of this encounter
--- OUTSIDE RECORDS SUMMARY | 2025-01-13 18:16 | XMS_ITS | Clinical Summary ---
Author Organization [employer] Address [address] [place] [address] 7[address] [place] [address] Care Team Providers Care Financial Dealers Name Role Phone Zev Sanders MD Primary Care Provider [phone] Gonzalo Lima Unavailable Allergies Active Allergy Reactions Criticality Noted Date Comments Penicillins Rash High 05/13/2019 RASH ON MOUTH WHEN A CHILD Shellfish Allergy Rash Low 04/08/2024 Medications tiotropium (Spiriva Respimat) 2.5 MCG/ACT inhalerIndicati ons:COPD (chronic obstructive pulmonary disease) case management patient ([facility]) ([facility]) INHALE TWO PUFF BY MOUTH EVERY MORNING [...] mg) by mouth at bedtime. 30 tablet Active Ventolin HFA 108 (90 Base) MCG/ACT inhaler Inhale 2 puffs every 6 (six) hours if needed for wheezing. Active docusate sodium (Colace) 100 MG capsule Take 1 tab po bid prn constipation 60 capsule 3 Active esomeprazole (NexIUM) [address] capsule TAKE ONE CAPSULE EVERY MORNING 90 capsule 1 Active SUMAtriptan (Imitrex) 25 MG tabletIndicatio ns:Other [...] THE MORNING AND AT BEDTIME 60 capsule Active cholecalciferol VITAMIN D (Vitamin D-3) 50 MCG (1999) tablet Take 1 tablet (50 mcg) by mouth in the morning. 90 tablet Active cholecalciferol VITAMIN D (Vitamin D-3) 50 [...] Encounters Date Type Department Care Team Description 01/12/2025 Patient Outreach [facility] MEDIC[facility] [address] [place] [address] Zev Sanders MD Care Management (C3CM- f/u call #2 lvm) 01/06/2025 2:00 PM EDT Clinical Support [facility] [address] [place] [address] Humaira Lopez RN Essential hypertension 01/06/2025 Travel 01/06/2025 Telephone [facility] [address] [place] [address] Zev Sanders MD 01/06/2025 Refill [facility] [address] [place] [address] Darlene Gant MD 01/06/2025 Refill [facility] [address] [place] [address] Zev Sanders MD Chronic low back pain, unspecified back pain laterality, unspecified whether sciatica present 01/03/2025 Telephone [facility] [address] [place] [address] Zev Sanders MD order 12/30/2024 Patient Outreach [facility] MEDICINE [address] [place] [phone] Zev Sanders MD Care Coordination (C3/W Geovanna Dejesus f/u_lvm ) 12/29/2024 11:15 AM EDT Telemedicine [facility] [address] [place] [address] Humaira Lopez RN Essential hypertension 12/29/2024 Travel 12/28/2024 Patient Outreach [address] [address] Zev Sanders MD Care Management (C3- f/u call lv) 12/17/2024 Results Follow-Up [facility] WALK[facility]IN CENTER [address] [place] [address] Isabelle Robbins RN Vascular US lower extremity venous duplex right 12/15/2024 Orders Only [facility] [address] [place] [address] Zev Sanders MD Essential hypertension (Primary Dx); Synovial cyst of right popliteal space 12/15/2024 Patient Outreach [address] [address] Zev Sanders MD 12/14/[address] [address] Zev Sanders MD Nurse Triage 12/10/[address] [address] Zev Sanders MD F/U CT scan 12/07/2024 3:45 PM EDT Office Visit [facility] [address] [place], [place] [phone] Zev Sanders MD Lower limb pain, anterior, right (Primary Dx); Essential hypertension; Asthma-chronic obstructive pulmonary disease overlap syndrome (CMS/HCC); Other migraine without status migrainosus, not intractable 12/07/2024 Travel 12/06/2024 Patient Outreach [address] [address] Zev Sanders MD Care Management (C3- f/u call) 12/06/[address] [facility] & PEDS [address] [place] [address] Zev Sanders MD Chart Prep 12/02/2024 Refill [facility] [address] [place] [address] Zev Sanders MD Chronic low back pain, unspecified back pain laterality, unspecified whether sciatica present 11/30/2024 Telephone [facility] [address] [place] [address] Zev Sanders MD ER Follow-up 11/30/2024 Refill [facility] [address] [place] [address] Zve Sanders MD 11/26/2024 Patient Outreach [facility] [address] [place] [address] Zev Sanders MD 11/26/2024 Patient Outreach [facility]INE [address] [place] [address] Zev Sanders MD Transition Of Care (Tcm) (HDF unscheduled LVM ) 11/25/2024 Orders Only [facility] [address] [place] [address] Josh Leonard MD 11/24/2024 Orders Only [facility] [address] [place] [address] Josh Leonard MD 11/23/2024 Telephone [facility] [address] [place] [address] Zev Sanders MD No Show 11/23/2024 Patient Outreach [facility] [address] [place] [address] Zev Sanders MD 11/23/2024 Orders Only [facility] [address] [place] [address] Josh Leonard MD 11/22/2024 Patient Outreach [facility] MEDICINE [address] [place] [address] Zev Sanders MD 11/22/2024 Patient Outreach [address] [address] Zev Sanders MD Care Coordination (C3/W Gonzalo Lima [facility] f/u call) 11/22/2024 Patient Outreach [facility] [address] [place] [address] Zev Sanders MD Care Coordination (C3 f/u call) 11/11/2024 1:15 PM EDT Telemedicine [facility] [address] [place] [address] Martha Zimmer RN Chest pain, unspecified type [R07.9] 11/11/2024 Travel 11/11/2024 Patient Outreach [address] [address] Zev Sanders MD Care Management (C3- f/u call lv) 11/04/2024 Orders Only [facility] External Provider, [facility] 11/01/2024 Telephone [facility] [address] [place] [address] Zev Sanders MD No Show 11/01/2024 Refill [facility] [address] [place] [address] Darlene Gant MD Chronic low back pain, unspecified back pain laterality, unspecified whether sciatica present 10/28/2024 Refill [facility] [address] [place] [address] Darlene Gant MD Chronic low back pain, unspecified back pain laterality, unspecified whether sciatica present 10/28/2024 Patient Outreach [address] [address] Zev Sanders MD Care Management (C3- f/u call) 10/22/2024 11:00 AM EDT Telemedicine [facility] [address] [place] [address] Kubasek, Humaira, RN Fall, subsequent encounter [W19.XXXD] 10/21/2024 1:00 PM EDT Office Visit [facility] [address] [place] [address] Wendy Andre MD Constipation, unspecified constipation type (Primary Dx); Palpitations 10/21/2024 Travel 10/20/2024 Telephone [facility] [address] [place] [address] Zev Sanders MD Nurse Triage 10/15/2024 Telephone [facility] [address] [place], [place] [phone] Zev Sanders MD 10/14/2024 Plan of Care Documentation [address] [address] 10/14/2024 Patient Outreach [address] [address] Zev Sanders MD Care Coordination ([facility]/W Gonzalo Lima, [facility] assessment, Enrolled CM Program ) 10/14/2024 Patient Outreach [facility] [address] [place] [address] Zev Sanders MD Care Coordination (C3 initial assessment) 10/13/2024 Patient Outreach [address] [address] Zev Sanders MD Care Coordination (C3/DESEAN Lima, Appt reminder ) from Last 3 Months Immunizations Immunization Administration [...] Upcoming Encounters Date Type Department Care Team ([facility] st Contact Info) Description 01/17/2025 3:15 PM EDT Office Visit [facility] [address] [place] [address] Zev Sanders MD [address] [place], [place] [phone] Health Maintenance Due Date Last Done Comments [...] PM EDT Narrative 01/11/2025 5:05 PM EDT [address] [address] [address] Scan Report Signed Patient: Deysi Pfeiffer MR#: [id number] : 1970 Acct:[id number] Age/Sex: 54 / F ADM Date: 01/11/25 Loc: HO.CT Attending Dr: Erickson Mathews MD Ordering Physician: Erickson Mathews MD Date of Service: 01/11/25 Procedure(s): CT chest wo IV con Accession Number(s): [id number] cc: Erickson Mathews MD; Zev Sanders MD Report Number: [id number]: Total DLP = 78.00 mGy-cm Reason for [...] 01/11/25 1701 DD/ 1556 TD/TT: 01/11/25 1624 Intake Coordinator: Procedure Note Donotuseinterpreter, Image - 01/11/[address] [place] [address] [address] Scan Report Signed Patient: Deysi Pfeiffer DMR#: [id number] : 1970Acct:[id number] Age/Sex: 54 / FADM Date: 01/11/25 Loc: HO.CT Attending Dr: Erickson Mathews MD Ordering Physician: Erickson Mathews MD Date of Service: 01/11/25 Procedure(s): CT chest wo IV con Accession Number(s): [id number] cc: Erickson Mathews MD; Zev Sanders MD Report Number: [id number]: Total DLP = 78.00 mGy-cm Reason for [...] 01/11/25 1701 DD/ 1556 TD/TT: 01/11/25 1624 Intake Coordinator: [facility] External Provider IMG CT PROCEDURES Final Result * Referral to Cardiology (12/29/2024) Wendy Andre MD OUTPATIENT REFERRAL ORDERABLES F inal Result * Vascular US lower extremity venous duplex right (12/15/2024) Result [facility] Zev Sanders MD CV VASCULAR PROCEDURES Mary Jane l Result * MRI BRAIN WO CONTRAST (11/24/2024 1:38 PM EDT) Anatomical Region Laterality Modality Magnetic Resonan ce Result [facility] Provider IMG MRI PROCEDURES Final Result * XR Chest 1 View (11/24/2024 1:33 PM EDT) Anatomical Region Laterality Modality Chest Radiographic Joy ging Result [facility] Provider IMG XR PROCEDURES Final R esult * Transthoracic echo (TTE) complete (11/23/2024 3:04 PM EDT) Result [facility] Provider CV ECHO PROCEDURES Final Result * ECG 12 lead (11/23/2024 11:53 AM EDT) Only the most recent of5 resultswithin the time period is included. Result [facility] Provider ECG ORDERABLES Final Res ult * CT Head w/o Contrast (11/22/2024 10:55 AM EDT) Anatomical Region Laterality Modality Head, Neck Computed Tomogra phy Result [facility] Provider IMG CT PROCEDURES Final R esult * CT CHEST ANGIO W AND WO IV CONTRAST (11/22/2024 10:47 AM EDT) Anatomical Region Laterality Modality Computed Tomogra phy Result [facility] Provider IMG CT PROCEDURES Final R esult * CT Chest w/ Contrast (11/04/2024 2:52 PM EDT) Anatomical Region Laterality Modality Body, Chest Computed Tomogra phy 11/04/2024 2:52 PM EDT Narrative 11/04/2024 4:05 PM EDT [address] [address] [address] Scan Report Signed Patient: Deysi Pfeiffer [place] MR#: [id number] : 1970 Acct:[id number] Age/Sex: 54 / F ADM Date: 11/04/24 Loc: HO.ED Attending Dr: Ordering Physician: Gloria Hassan PA-C Date of Service: 11/04/24 Procedure(s): CT chest w IV con Accession Number(s): [id number] cc: Zev Sanders MD; Gloria Hassan PA-C Report Number: [id number]: Total DLP = 155.70 mGy-cm EXAMINATION: CT [...] reconstruction technique DLP: 147.89 mGy centimeter. FINDINGS: MINE ENGINEERING SUPERINTENDENT: Hyperinflation. Pulmonary reticular pattern. Patchy opacities, lower [...] 11/04/24 1602 DD/ 1452 TD/TT: 11/04/24 1546 Intake Coordinator: Procedure Note Donotuseinterpreter, Image - 11/04/[address] [place] [address] [address] Scan Report Signed Patient: Deysi Pfeiffer DMR#: [id number] : 1970Acct:[id number] Age/Sex: 54 / FADM Date: 11/04/24 Loc: HO.ED Attending Dr: Ordering Physician: Gloria Hassan PA-C Date of Service: 11/04/24 Procedure(s): CT chest w IV con Accession Number(s): [id number] cc: Zev Sanders MD; Gloria Hassan PA-C Report Number: [id number]: Total DLP = 155.70 mGy-cm EXAMINATION: CT [...] reconstruction technique DLP: 147.89 mGy centimeter. FINDINGS: MINE ENGINEERING SUPERINTENDENT: Hyperinflation. Pulmonary reticular pattern. Patchy opacities, lower [...] 11/04/24 1602 DD/ 1452 TD/TT: 11/04/24 1546 Intake Coordinator: [facility] External Provider IMG CT PROCEDURES Final Result * CT Head for ICH (11/04/2024 1:52 PM EDT) Anatomical Region Laterality Modality Head, Neck Computed Tomogra phy 11/04/2024 1:52 PM EDT Narrative 11/04/2024 4:05 PM EDT [address] [address] [address] Scan Report Signed Patient: Deysi Pfeiffer MR#: [id number] : 1970 Acct:[id number] Age/Sex: 54 / F ADM Date: 11/04/24 Loc: HO.ED Attending Dr: Ordering Physician: Gloria Hassan PA-C Date of Service: 11/04/24 Procedure(s): CT Head for ICH Accession Number(s): [id number] cc: Zev Sanders MD; Gloria Hassan PA-C Report Number: [id number]: Total DLP = 629.57 mGy-cm EXAMINATION: CT [...] 11/04/24 1602 DD/ 1352 TD/TT: 11/04/24 1546 Intake Coordinator: Procedure Note Donotuseinterpreter, Image - 11/04/[address] [place] [address] [address] Scan Report Signed Patient: Deysi Pfeiffer [facility]#: [id number] : 1970Acct:[id number] Age/Sex: 54 / FADM Date: 11/04/24 Loc: .ED Attending Dr: Ordering Physician: Gloria Hassan PA-C Date of Service: 11/04/24 Procedure(s): CT Head for ICH Accession Number(s): [id number] cc: Zev Sanders MD; Gloria Hassan PA-C Report Number: [id number]: Total DLP = 629.57 mGy-cm EXAMINATION: CT [...] 11/04/24 1602 DD/ 1352 TD/TT: 11/04/24 1546 Intake Coordinator: [facility] External Provider IMG CT PROCEDURES Final Result * XR Chest 2 Views (10/21/2024 4:10 PM EDT) Anatomical Region Laterality Modality Chest Radiographic Joy ging 10/21/2024 4:10 PM EDT Narrative 10/21/2024 4:54 PM EDT [address] [address] XRay Report Signed Patient: Deysi Pfeiffer MR#: [id number] : 1970 Acct:[id number] Age/Sex: 54 / F ADM Date: 10/21/24 Loc: HO.ED Attending Dr: Ordering Physician: Kimberly Tello Date of Service: 10/21/24 Procedure(s): XR chest 2V Accession Number(s): [id number] cc: Zev Sanders MD; Kimberly Tello EXAMINATION: [...] 10/21/24 1651 DD/ 1610 TD/TT: 10/21/24 1625 Intake Coordinator: Procedure Note Donotuseinterpreter, Image - 10/21/[address] [address] XRay Report Signed Patient: Deysi Pfeiffer DMR#: [id number] : 1970Acct:[id number] Age/Sex: 54 / FADM Date: 10/21/24 Loc: HO.ED Attending Dr: Ordering Physician: Kimberly Tello Date of Service: 10/21/24 Procedure(s): XR chest 2V Accession Number(s): [id number] cc: Zev Sanders MD; Kimberly Tello EXAMINATION: [...] 10/21/24 1651 DD/ 1610 TD/TT: 10/21/24 1625 Intake Coordinator: [facility] External Provider IMG XR PROCEDURES Edited Result - Final * XR Shoulder 2+ Views Right (10/21/2024 3:33 PM EDT) Anatomical Region Laterality Modality Upper Extremities, Shoulder Right Radi ographic Imaging 10/21/2024 3:33 PM EDT Narrative 10/21/2024 4:55 PM EDT [address] [address] XRay Report Signed Patient: Deysi Pfeiffer MR#: [id number] : 1970 Acct:[id number] Age/Sex: 54 / F ADM Date: 10/21/24 Loc: .ED Attending Dr: Ordering Physician: Kimberly Tello Date of Service: 10/21/24 Procedure(s): XR shoulder RT min 2V Accession Number(s): [id number] cc: Zev Sanders MD; Kimberly Tello EXAMINATION: [...] 10/21/24 1652 DD/ 1533 TD/TT: 10/21/24 1625 Intake Coordinator: Procedure Note Donotuseinterpreter, Image - 10/21/[address] [address] XRay Report Signed Patient: Deysi Pfeiffer [facility]#: [id number] : 1970Acct:[id number] Age/Sex: 54 / FADM Date: 10/21/24 Loc: .ED Attending Dr: Ordering Physician: Kimberly Tello Date of Service: 10/21/24 Procedure(s): XR shoulder RT min 2V Accession Number(s): [id number] cc: Zev Sanders MD; Kimberly Tello EXAMINATION: [...] 10/21/24 1652 DD/ 1533 TD/TT: 10/21/24 1625 Intake Coordinator: [facility] External Provider IMG XR PROCEDURES Edited Result - Final * Cologuard?? colon cancer screening (03/10/2023 2:14 PM EST) Cologuard Result Negative Negative 03/21/20 1:56 AM EST [facility] (CLIA #:[id number]) Comment: NEGATIVE TEST RESULT. A negative Cologuard [...] Dunn et al, N Engl J Med 2014;370(14):0790-4703) The normal value (reference range) for this assay is negative. COLOGUARD RE-SCREENING RECOMMENDATION: Periodic colorectal cancer screening is an important part of preventive healthcare for asymptomatic individuals at average risk for colorectal cancer. Following a negative Cologuard result, the [place] [employer] Society and U.S. Multi-Society Task Force screening guidelines recommend a Cologuard re-screening interval of 3 years. References: [place] [employer] Guideline for Colorectal Cancer Screening: https://www.cancer.org/cancer/nrqrc-vtqjgb-pigcps/wvhebojkj-omcracllh-ldivrah/ac s-rec ommendations.html.; Edgar DK, Antonio STONE, Dominitz JK, Colorectal Cancer Screening: Recommendations for Physicians and Patients from the U.S. Multi-Society Task Force on Colorectal Cancer Screening , Am J Gastroenterology 2017; 112:9816-9862. TEST DESCRIPTION: Composite algorithmic analysis of stool [...] Steward. et al, N Engl J Med 2014;370(14):2139-6908.) Cologuard may produce a false negative or false positive result (no colorectal cancer or precancerous polyp present at colonoscopy follow up). A negative Cologuard test result does not guarantee the absence of CRC or advanced adenoma (pre-cancer). The current Cologuard screening interval is every 3 years. ([place] [employer] Society and U.S. Multi-Society Task Force). Cologuard performance data in a 10,000 patient pivotal study using colonoscopy as the reference method can be accessed at the following location: www.[employer]/results. Additional description of the Cologuard test process, warnings and precautions can be found at www.[employer].oguard.com. Stool specimen (specimen) 03/10/2023 2:14 PM EST 03/12/2023 8:29 PM EST us Thevenin Beauzile MD LAB MOLECULAR DIAGNOSTICS O RDERABLES Final Result [facility] (CLIA #:[id number]) [address] [place] [address], * HPV E6/E7 RFLX VANNESSA 16 18/45 (01/15/2022 10:19 AM EDT) Pathologist [facility] HPV mRNA E6/E7 rflx Not Detected Not Detected [facility] Comment: Methodology: Strip Polisher-Mediated Amplification This assay detects E6/E7 viral messenger RNA (mRNA) from 14 high-risk HPV types (16,18,31,33,35,39,45,51,52,56,58,59,66,68). Cervical sources are required for HPV testing. If a vaginal source from a patient who has had a total hysterectomy with removal of cervix was submitted, please contact the testing laboratory for alternative testing options. For additional information, please refer to http://education.Kingspoke/faq/UQL469j9 (This link if provided for information/ educational purposes only.) THIS TEST WAS PERFORMED AT: [facility] [address] [place] [address],[place] [address] ESPERANZA CRUZ MD 01/15/2022 10:1 9 AM EDT Mario Alberto Morgan MD HISTORICAL/NON ORDERABLE LABS Fi nal Result Performing Organization Address City/[facility]/ZIP Co de Phone Number [facility] * Hm Pap Smear (01/15/2022) Historical Provider HEALTH MAINTENANCE Final Result * HEPATITIS C AB W/REFL TO HCV RNA, QN, PCR (11/12/2021 12:09 PM EDT) Pathologist [facility] HEPATITIS C ANTIBODY NON-REACT JOSE MANUEL NON-REACT JOSE MANUEL [facility] INDEX 0.09 <1.00 [facility] Comment: HCV antibody was non-reactive. There is no laboratory evidence of HCV infection. In most cases, no further action is required. However, if recent HCV exposure is suspected, a test for HCV RNA (test code 57255) is suggested. For additional information please refer to http://education.Kingspoke/faq/XDE41p5 (This link is being provided for informational/ educational purposes only.) 11/12/2021 12:0 9 PM EDT Zev Sanders MD HISTORICAL/NON ORDERABLE LA BS Final Result Performing Organization Address [facility] de Phone Number [facility] [address] [place] [address], [place] * (ABNORMAL) LIPID PANEL, STANDARD (11/12/2021 [...] LDL-C. Hilario MOON et al. JUANA. 2013;310(19): 9693-9923 (http://education.TapMe.HealthFusion/faq/FKG120) Non-HDL Cholesterol 129 <130 mg/dL (calc) [facility] Comment: For patients with diabetes plus 1 major ASCVD risk factor, treating to a non-HDL-C goal of <100 mg/dL (LDL-C of <70 mg/dL) is considered a therapeutic option. Triglycerides 120 <150 mg/dL [facility] 11/12/2021 12:0 9 PM EDT us Zev Sanders MD LAB BLOOD ORDERABLES Final Result Performing Organization Address [facility] Co de Phone Number [facility] [address] [place], [place] [address] * Mammography Report 1 (10/17/2021 2:30 PM [...] Most Recently Relevant to Health Maintenance Insurance SMART C3 Care Teams Financial Dealers Relationship Specialty Start Date End Date Zev Sanders MD [address] [place] [id number] PCP - General Internal Medicine 11/16/19 Gonzalo Lima 10/04/24
--- OUTSIDE RECORDS SUMMARY | 2025-01-13 18:16 | XMS_ITS | Encounter Summary ---
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 Name Role Phone Zev Sanders MD Primary Care Provider [phone] Michelle Quiroz RN Unavailable [phone] Gonzalo Lima Unavailable Benedict Lima RN Unavailable [phone] Encounter Details Date Type Department Care Team (Late st Contact Info) Description 07/21/2023 Orders Only [facility] [address] [place], [place] [phone] Zev Sanders MD [address] [place], [place] [phone] Social History Tobacco Use Types Packs/Day Years [...] [facility] [address] [place] [address] Zev Sanders MD [address] [place] [address] documented as of this encounter Visit Diagnoses Not on filedocumented in this encounter Care Teams Sheet Metal Shop Helper Relationship Specialty Start Date End Date Zev Sanders MD [address] [place] [address] PCP - General Internal Medicine 11/16/19 Michelle Quiroz, BIANCA [address] [place] [address] Registered Nurse Family Medicine 10/04/24 12/06/24 Gonzalo Lima 10/04/24 Benedict Lima, BIANCA [address] [place] [address] Registered Nurse Family Medicine 12/06/24 01/12/25 documented as of this encounter
--- OUTSIDE RECORDS SUMMARY | 2025-01-13 18:16 | XMS_ITS | Clinical Summary ---
Author Organization [facility] Address [address] [place] [phone] Phone Care Team Providers Care Band Presser Name Role Phone Zev Sanders MD Primary Care Provider [phone] Allergies Active Allergy Reactions Criticality Noted Date [...] Date Diagnosed Date Sepsis due to pneumonia ([facility] V24, [facility] V2 8) 11/22/2024 Encounters Date Type Department Care Team Description 12/15/2024 2:15 PM EDT Ancillary Procedure [facility] [address] [place]ño [address] [place] [phone] Lower limb pain, anterior, right 11/22/2024 1:28 PM EDT - 11/25/2024 1:45 PM EDT Hospital Encounter [facility] [address] [place] [phone] Tai Olivier MD Bukalo, Nermina, MD Rasul, Yar M, MD Dyspnea, unspecified type (Primary Dx); Sepsis due to pneumonia ([facility] V24, [facility] V28) Discharge Disposition: Home-Health Care c from Last 3 Months Medical History Medical History Date Comments UTI (urinary tract infection) Asthma COPD (chronic obstructive pulmonary disease) ( S/HCC V24, [facility] V28) Anxiety GERD (gastroesophageal reflux disease) [...] for your loved ones. For example, child psychiatrist or elderly care for an older adult? [...] Info) Description 02/22/2025 3:00 PM EST Appointment [facility] CT Scan [address] [place] [phone] 03/02/2025 9:45 AM EST Office Visit Thoracic Surgery - [place] [address] [facility] [address] [place] [address] Epi Hernández, JAYNE [address] [place] [address] [place] [id number] Health Maintenance Due Date Last Done Comments Hepatitis B Vaccines (1 of 3 - 19+ 3-dose series) 1989 Cervical Cancer Screening: Pap Smear 1991 RSV Immunization Adult Patients (1 - Risk 50-74 years 1-dose series) 2020 Breast Cancer Screening 10/18/2023 10/17/2021 Depression Screening [...] the right leg. The vessel showed compressibility. [employer] Details A fowler scale, color and doppler [...] K/mcL LAB HEMETOLOGY METHOD 11/25/2024 7:07 AM [facility] RBC 3.80 3.80 - 4.80 M/mcL LAB HEMETOLOGY METHOD 11/25/2024 7:07 AM [facility] Hemoglobin 10.5(L) 11.5 - 16.0 g/dL LAB HEMETOLOGY METHOD 11/25/2024 7:07 AM [facility] Hematocrit 33.3(L) 35.0 - 47.0 % LAB HEMETOLOGY METHOD 11/25/2024 7:07 AM [facility] MCV 86.7 79.0 - 98.0 FL LAB HEMETOLOGY METHOD 11/25/2024 7:07 AM [facility] MCH 27.3 27.0 - 32.0 pcg LAB HEMETOLOGY METHOD 11/25/2024 7:07 AM [facility] MCHC 31.5(L) 32.0 - 37.0 g/dL LAB HEMETOLOGY METHOD 11/25/2024 7:07 AM [facility] RDW 14.9 11.0 - 15.0 % LAB HEMETOLOGY METHOD 11/25/2024 7:07 AM [facility] Platelets 213 130 - 400 K/mcL LAB HEMETOLOGY METHOD 11/25/2024 7:07 AM [facility] MPV 10.0 7.0 - 11.0 FL LAB HEMETOLOGY METHOD 11/25/2024 7:07 AM [facility] NRBC 0.0 <1.0 % LAB HEMETOLOGY METHOD 11/25/2024 7:07 AM [facility] NRBC Absolute 0.00 <0.10 K/mcL LAB HEMETOLOGY METHOD 11/25/2024 7:07 AM [facility] Neutrophils Relative 63.8 % LAB HEMETOLOGY METHOD 11/25/2024 7:07 AM [facility] Lymphocytes Relative 18.7 % LAB HEMETOLOGY METHOD 11/25/2024 7:07 AM [facility] Monocytes Relative 12.6 % LAB HEMETOLOGY METHOD 11/25/2024 7:07 AM [facility] Eosinophils Relative 3.7 % LAB HEMETOLOGY METHOD 11/25/2024 7:07 AM [facility] Basophils Relative 0.6 % LAB HEMETOLOGY METHOD 11/25/2024 7:07 AM [facility] Immature Granulocytes Relative 0.6 % LAB HEMETOLOGY METHOD 11/25/2024 7:07 AM [facility] Neutrophils Absolute 4.10 1.50 - 7.00 K/mcL LAB HEMETOLOGY METHOD 11/25/2024 7:07 AM [facility] Lymphocytes Absolute 1.20 1.00 - 5.00 K/mcL LAB HEMETOLOGY METHOD 11/25/2024 7:07 AM [facility] Monocytes Absolute 0.81 0.20 - 1.00 K/mcL LAB HEMETOLOGY METHOD 11/25/2024 7:07 AM [facility] Eosinophils Absolute 0.24 0.00 - 0.50 K/mcL LAB HEMETOLOGY METHOD 11/25/2024 7:07 AM [facility] Basophils Absolute 0.04 0.00 - 0.20 K/mcL LAB HEMETOLOGY METHOD 11/25/2024 7:07 AM [facility] Immature Granulocytes Absolute 0.04(H) 0.00 - 0.03 K/mcL LAB HEMETOLOGY METHOD 11/25/2024 7:07 AM [facility] Blood Venous blood specimen / Unknown Venipuncture / Unknown 11/25/2024 6:35 AM EDT 11/25/2024 6:43 AM EDT us Sahil Maria MD LAB BLOOD ORDERABLES Final Resul t Performing Organization Address [facility]/ZIP Co de Phone Number [facility] [address] [place] [address], [place] [phone] * SST tube (11/25/2024 6:31 AM EDT) Extra Tube Hold for add-ons. 11/25/2024 8:01 AM EDT [facility] Comment:Auto resulted. Blood Venous blood specimen / Unknown Venipuncture / Unknown 11/25/2024 6:31 AM EDT 11/25/2024 6:44 AM EDT us Sahil Maria MD LAB BLOOD ORDERABLES Final Resul t Performing Organization Address City/[facility]/ZIP Co de Phone Number [facility] [address] [place] [address], [place] [phone] * XR Chest 1 View (11/24/2024 11:55 [...] on the prior study has resolved. Code 80354 -------- FINAL REPORT -------- Dictated By: Bong Mcguire Dictated Date: 11/25/2024 09:34 ET Assigned Physician: Bong Mcguire Reviewed and Electronically Signed By: Bong Mcguire Signed Date: 11/25/2024 09:36 ET Workstation ID: [id number] Transcribed By: Self Edit Transcribed Date: 11/25/2024 [...] seen on the prior study hasresolved. Code 08598 -------- FINAL REPORT -------- Dictated By: Bong Mcguire Dictated Date: 11/25/2024 09:34 ET Assigned Physician: Bong Mcguire Reviewed and Electronically Signed By: Bong Mcguire Signed Date: 11/25/2024 09:36 ET Workstation ID: [id number] Transcribed By: Self Edit Transcribed Date: 11/25/2024 09:34 ET us Jose GODOY IMG XR PROCEDURES Final Result * (ABNORMAL) Venous blood gas (11/24/2024 11:42 PM EDT) pH, Lefty 7.27(L) 7.32 - 7.42 pH 11/24/2024 11:48 PM EDT [facility] pCO2, Lefty 44 41 - 51 mmHg 11/24/2024 11:48 PM EDT [facility] pO2, Lefty 61(H) 25 - 40 mmHg 11/24/2024 11:48 PM EDT [facility] HCO3, Venous 19.8(L) 22.0 - 26.0 mmol/L 11/24/2024 11:48 PM EDT [facility] O2 Sat, Lefty 94.5 % 11/24/2024 11:48 PM EDT [facility] Base Excess, Lefty -6.5(L) -2.0 - 2.0 mmol/L 11/24/2024 11:48 PM EDT [facility] Blood Venous blood specimen / Unknown Venipuncture / Unknown 11/24/2024 11:42 PM EDT 11/24/2024 11:45 PM EDT Jose GODOY LAB BLOOD ORDERABLES Final Res ult [facility] [address] [place] [address], * MR Brain wo Contrast (11/24/2024 4:12 [...] Signed Date: 11/25/2024 08:59 ET Workstation ID: [id number] Transcribed By: Self Edit Transcribed Date: 11/25/2024 [...] There are a few scattered foci of [id number] in the supratentorial white matter which are [...] Signed Date: 11/25/2024 08:59 ET Workstation ID: [id number] Transcribed By: Self Edit Transcribed Date: 11/25/2024 08:55 ET Yari GODOY IMG MRI PROCEDURES Mary Jane l Result * (ABNORMAL) Basic metabolic panel (11/24/2024 6:12 AM EDT) Only the most recent of3 resultswithin the time period is included. Sodium 143 133 - 145 mmol/L LAB CHEMISTRY METHOD 11/24/2024 7:32 AM [facility] Potassium 3.8 3.5 - 5.5 mmol/L LAB CHEMISTRY METHOD 11/24/2024 7:32 AM [facility] Chloride 113(H) 96 - 110 mmol/L LAB CHEMISTRY METHOD 11/24/2024 7:32 AM [facility] CO2 17(L) 21 - 32 mmol/L LAB CHEMISTRY METHOD 11/24/2024 7:32 AM [facility] Anion Gap 13(H) 3 - 11 LAB CHEMISTRY METHOD 11/24/2024 7:32 AM [facility] Glucose 62(L) 70 - 100 mg/dL LAB CHEMISTRY METHOD 11/24/2024 7:32 AM [facility] BUN 9 5 - 25 mg/dL LAB CHEMISTRY METHOD 11/24/2024 7:32 AM [facility] Creatinine 0.53 0.50 - 1.10 mg/dL LAB CHEMISTRY METHOD 11/24/2024 7:32 AM [facility] eGFR 110 >=60 mL/min/1. 73m2 LAB CHEMISTRY METHOD 11/24/2024 7:32 AM [facility] Comment:Calculation based on the Chronic Kidney Disease Epidemiology Collaboration (CKD-EPI) equation refit without adjustment for race. BUN/Creatinine Ratio 17.0 LAB CHEMISTRY METHOD 11/24/2024 7:32 AM EDT [facility] Calcium 9.0 8.5 - 10.5 mg/dL LAB CHEMISTRY METHOD 11/24/2024 7:32 AM EDT [facility] Blood Venous blood specimen / Unknown Venipuncture / Unknown 11/24/2024 6:12 AM EDT 11/24/2024 6:46 AM EDT us Sahil Maria MD LAB BLOOD ORDERABLES Final Resul t [facility] [address] [place] [address], [place] [phone] * ECG 12 lead (11/23/2024 11:07 PM EDT) Only the most recent of5 resultswithin the time period is included. Ventricular Rate ECG 63 BPM GEMUSE Atrial Rate 63 BPM GEMUSE P-R Interval 150 ms GEMUSE QRS Duration 84 ms GEMUSE Q-T Interval 378 ms GEMUSE QTc 386 ms GEMUSE P Wave Irvona 79 degrees GEMUSE R Irvona 64 degrees GEMUSE T Irvona 69 degrees GEMUSE ECG Interpretation Sinus rhythm with marked sinus arrhythmia Otherwise normal ECG When compared with ECG of 23-NOV-2024 23:07, (unconfirmed) NV interval has decreased Vent. rate has decreased [...] MD ECG ORDERABLES Final Result GEMUSE * Mcandrews top urine tube (11/23/2024 12:45 PM EDT) Pathologist [facility] Extra Tube Hold for add-ons. 11/23/2024 2:01 PM EDT [facility] Comment:Auto resulted. Urine Urine specimen obtained by clean catch procedure / Unknown 11/23/2024 12:45 PM EDT 11/23/2024 12:56 PM EDT us Sahil Maria MD LAB URINE ORDERABLES Final Resul t [facility] [address] [place] [address], [place] [phone] * (ABNORMAL) Drug abuse screen 8a panel, urine (11/23/2024 12:45 PM EDT) [facility] Amphetamine Screen, Ur Negative Negative LAB CHEMISTRY METHOD 1:39 PM EDT [facility] Comment:Certain OTC medicati ons containing ephedrine, phenylephrine, pseudoephedrine and phenylpropanolamine can cause false positive results. Barbiturate Screen, Ur Negative Negative LAB CHEMISTRY METHOD 5 1:39 PM EDT [facility] Benzodiazepine Screen, Ur Negative Negative LAB CHEMISTRY METHOD 5 1:39 PM EDT [facility] Cocaine Screen, Ur Negative Negative LAB CHEMISTRY METHOD 5 1:39 PM EDT [facility] Opiate Screen, Ur Positive(A ) Negative LAB CHEMISTRY METHOD 5 1:39 PM EDT [facility] Cannabinoid (THC) Screen, Ur Negative Negative LAB CHEMISTRY METHOD 5 1:39 PM EDT [facility] Comment:Specimens from patie nts taking pantoprazole sodium (Protonix) have been shown to produce false positive results. Oxycodone Screen, Ur Positive(A ) Negative LAB CHEMISTRY METHOD 5 1:39 PM EDT [facility] Fentanyl, Ur Negative Negative LAB CHEMISTRY METHOD 1:39 PM EDT [facility] Urine Urine specimen obtained by clean catch procedure / Unknown Non-blood Collection / Unknown 11/23/2024 12:45 PM EDT 11/23/2024 12:54 PM EDT Narrative [facility] - 11/23/2024 1:39 PM EDT Assay [...] MD LAB URINE ORDERABLES Final Resul t [facility] [address] [place] [address], [place] [phone] * (ABNORMAL) TRANSTHORACIC ECHOCARDIOGRAM (TTE) COMPLETE (11/23/2024 12:25 PM EDT) Left Atrium Minor Irvona 4.3 cm CV PACS Left Atrium Major Irvona 4.9 cm CV PACS LA Area Sys [...] Area 3.5 cm2 CV PACS MV Deceleration [place] 4.1 m/s2 CV PACS E Wave Deceleration [...] Complete blood count (11/23/2024 6:35 AM EDT) [facility] WBC 11.3(H) 4.8 - 10.8 K/mcL LAB HEMETOLOGY METHOD 11/23/2024 7:26 AM [facility] RBC 3.80 3.80 - 4.80 M/mcL LAB HEMETOLOGY METHOD 11/23/2024 7:26 AM [facility] Hemoglobin 10.6(L) 11.5 - 16.0 g/dL LAB HEMETOLOGY METHOD 11/23/2024 7:26 AM [facility] Hematocrit 35.4 35.0 - 47.0 % LAB HEMETOLOGY METHOD 11/23/2024 7:26 AM [facility] MCV 93.2 79.0 - 98.0 FL LAB HEMETOLOGY METHOD 11/23/2024 7:26 AM [facility] MCH 27.9 27.0 - 32.0 pcg LAB HEMETOLOGY METHOD 11/23/2024 7:26 AM [facility] MCHC 29.9(L) 32.0 - 37.0 g/dL LAB HEMETOLOGY METHOD 11/23/2024 7:26 AM [facility] RDW 15.2(H) 11.0 - 15.0 % LAB HEMETOLOGY METHOD 11/23/2024 7:26 AM EDT [facility] Platelets 190 130 - 400 K/mcL LAB HEMETOLOGY METHOD 11/23/2024 7:26 AM EDT [facility] MPV 10.6 7.0 - 11.0 FL LAB HEMETOLOGY METHOD 11/23/2024 7:26 AM EDT [facility] NRBC 0.0 <1.0 % LAB HEMETOLOGY METHOD 11/23/2024 7:26 AM EDT [facility] NRBC Absolute 0.00 <0.10 K/mcL LAB HEMETOLOGY METHOD 11/23/2024 7:26 AM EDT [facility] Blood Venous blood specimen / Unknown Venipuncture / Unknown 11/23/2024 6:35 AM EDT 11/23/2024 7:05 AM EDT us Tahmina Villegas MD LAB BLOOD ORDERABLES Final Res ult Performing Organization Address City/[facility]/ZIP Co de Phone Number [facility] [address] [place] [address], [place] [phone] * Magnesium (11/23/2024 6:35 AM EDT) Only the most recent of3 resultswithin the time period is included. Magnesium 2.1 1.9 - 2.6 mg/dL LAB CHEMISTRY METHOD 11/23/2024 7:53 AM EDT [facility] Blood Venous blood specimen / Unknown Venipuncture / Unknown 11/23/2024 6:35 AM EDT 11/23/2024 7:05 AM EDT us Yari GODOY LAB BLOOD ORDERABLES Fi nal Result Performing Organization Address City/[facility]/ZIP Co de Phone Number [facility] [address] [place] [address], [place] [phone] * CT Angio Chest wo and/or w [...] B-type natriuretic peptide (11/22/2024 11:58 PM EDT) [facility] BNP 109(H) <=100 pcg/mL LAB CHEMISTRY METHOD 11/23/2024 12:58 AM EDT [facility] Blood Venous blood specimen / Unknown Venipuncture / Unknown 11/22/2024 11:58 PM EDT 11/23/2024 12:00 AM EDT us Emily GODOY LAB BLOOD ORDERABLES Final Re sult [facility] [address] [place] [address], * Troponin I high sensitivity (11/22/2024 11:55 PM EDT) [facility] High Sensitivity Troponin I 8 <=54 ng/L LAB CHEMISTRY METHOD 11/23/2024 12:31 AM EDT [facility] Blood Venous blood specimen / Unknown Venipuncture / Unknown 11/22/2024 11:55 PM EDT 11/22/2024 11:59 PM EDT Narrative [facility] - 11/23/2024 12:31 AM EDT High levels of biotin in samples may falsely decrease hsTroponin values. Use caution when interpreting hsTroponin results in patients taking biotin who exhibit renal impairment (eGFR <60) or in patients taking more than 20 mg/day of biotin. Emily GODOY LAB BLOOD ORDERABLES Final Re sult [facility] [address] [place] [address], [place] [phone] * Lactate (11/22/2024 11:54 PM EDT) Lactate 0.5 0.4 - 2.0 mmol/L LAB CHEMISTRY METHOD 11/23/2024 12:31 AM EDT [facility] Blood Venous blood specimen / Unknown Venipuncture / Unknown 11/22/2024 11:54 PM EDT 11/23/2024 12:00 AM EDT Emily GODOY LAB BLOOD ORDERABLES Final Re sult [facility] [address] [place] [address], [place] [phone] * POCT Glucose, blood (11/22/2024 11:42 PM EDT) Glucose POCT 97 70 - 100 mg/dL 11/22/2024 11:43 PM EDT [facility] Blood Capillary blood specimen / Unknown 11/22/2024 11:42 PM EDT 11/22/2024 11:44 PM EDT Tahmina Villegas MD LAB POINT OF CARE TE ST DOCKED DEVICE UNSOLICITED RESULTS Final Result Performing Organization Address [facility]/ZIP Co de Phone Number [facility] [address] [place] [address], [place] [phone] * (ABNORMAL) D-Dimer (11/22/2024 9:58 PM EDT) D-Dimer, Quant (D-DU) 781(H) <=230 ng/mL DDU LAB COAGULATION METHOD 11/22/2024 10:35 PM EDT [facility] Blood Venous blood specimen / Unknown Venipuncture / Unknown 11/22/2024 9:58 PM EDT 11/22/2024 10:19 PM EDT Narrative [facility] - 11/22/2024 10:35 PM EDT D-Dimer <230 ng/mL (D-Dimer units) is the threshold for exclusion of DVT/PE. D-Dimer may be elevated in: Critically ill, severely infected, trauma patients, DIC, acute CVA, acute AR, unstable angina, AF, old age, , and smoking. D-Dimer may be decreased with: Initiation of heparin therapy and oral anticoagulants. Yari GODOY LAB BLOOD ORDERABLES Fi nal Result Performing Organization Address [facility]/ZIP Co de Phone Number [facility] [address] [place] [address], [place] [phone] * Blood culture (11/22/2024 2:18 PM EDT) Only the most recent of2 resultswithin the time period is included. Culture, Blood No growth at 5 days LAB MICROBIOLOGY METHOD 11/27/2024 3:01 PM EDT [facility] Blood Venous blood specimen / Unknown Venipuncture / Unknown 11/22/2024 2:18 PM EDT 11/22/2024 2:23 PM EDT us Tai Olivier MD LAB MICROBIOLOGY - GENERAL ORDERABLES Final Result [facility] [address] [place] [address], [place] [phone] * (ABNORMAL) Urinalysis with reflex microscopic and culture (11/22/2024 2:17 PM EDT) Pathologist [facility] Specific [place] Urine 1.014 1.003 - 1.030 LAB URINALYSIS - AUTOMATED METHOD 11/22/2024 2:53 PM EDT [facility] pH, Urine 5.5 5.0 - 8.0 pH LAB URINALYSIS - AUTOMATED METHOD 11/22/2024 2:53 PM EDT [facility] Leukocytes, Urine Trace(A) Negative LAB URINALYSIS - AUTOMATED METHOD 11/22/2024 2:53 PM EDT [facility] Nitrite, Urine Negative Negative LAB URINALYSIS - AUTOMATED METHOD 11/22/2024 2:53 PM [facility] Protein, Urine 30(A) <=Trace mg/dL LAB URINALYSIS - AUTOMATED METHOD 11/22/2024 2:53 PM [facility] Glucose, Urine Negative Negative mg/dL LAB URINALYSIS - AUTOMATED METHOD 11/22/2024 2:53 PM T [facility] Ketones, Urine Trace(A) Negative mg/dL LAB URINALYSIS - AUTOMATED METHOD 11/22/2024 2:53 PM T [facility] Urobilinogen , Urine 1.0 0.2 - 1.0 mg/dL LAB URINALYSIS - AUTOMATED METHOD 11/22/2024 2:53 PM [facility] Bilirubin, Urine Negative Negative LAB URINALYSIS - AUTOMATED METHOD 11/22/2024 2:[facility] Blood, Urine Negative Negative LAB URINALYSIS - AUTOMATED METHOD 11/22/2024 2:53 PM EDT [facility] RBC, Urine 4.3(H) 0 - 4 /HPF LAB URINALYSIS - AUTOMATED METHOD 11/22/2024 2:53 PM EDT [facility] WBC, Urine 17.7(H) 0 - 4 /HPF LAB URINALYSIS - AUTOMATED METHOD 11/22/2024 2:53 PM EDT [facility] Squamous Epithelial, Urine >100(H) 0 - 60 /LPF LAB URINALYSIS - AUTOMATED METHOD 11/22/2024 2:53 PM EDT [facility] Bacteria, Urine Negative Negative /HPF LAB URINALYSIS - AUTOMATED METHOD 11/22/2024 2:53 PM EDT [facility] Hyaline Casts, Urine 3.0 0 - 3 /LPF LAB URINALYSIS - AUTOMATED METHOD 11/22/2024 2:53 PM EDT [facility] Other Casts, Urine Rare Coarse Granular casts. /LPF 11/22/2024 2:53 PM EDT [facility] Urine Urine specimen obtained by clean catch procedure / Unknown Non-blood Collection / Unknown 11/22/2024 2:17 PM EDT 11/22/2024 2:25 PM EDT us Tai Olivier MD LAB URINE ORDERABLES Final Result [facility] [address] [place] [address], * Fowler urine culture tube (11/22/2024 2:17 PM EDT) Extra Tube Hold for add-ons. 11/22/2024 4:01 PM EDT [facility] Comment:Auto resulted. Urine Urine specimen obtained by clean catch procedure / Unknown Non-blood Collection / Unknown 11/22/2024 2:17 PM EDT 11/22/2024 2:26 PM EDT Tai Olivier MD LAB URINE ORDERABLES Final Result Performing Organization Address [facility]/ZIP Co de Phone Number [facility] [address] [place] [address], [place] [phone] * Culture urine (11/22/2024 2:17 PM EDT) [facility] Culture, Urine 10,000-49,000 CFU/mL Mixed bacterial morphotypes present suggestive of possible contamination during collection. Suggest appropriate recollection if clinically indicated. 11/23/2024 9:32 AM EDT [facility] Urine Urine specimen obtained by clean catch procedure / Unknown Non-blood Collection / Unknown 11/22/2024 2:17 PM EDT 11/22/2024 2:53 PM EDT Tai Olivier MD LAB MICROBIOLOGY - GENERAL ORDERABLES Final Result Performing Organization Address [facility] de Phone Number [facility] [address] [place] [address], [place] [phone] * Respiratory virus panel molecular study (11/22/2024 2:07 PM EDT) [facility] Adenovirus Detection by PCR Not Detected Not Detected LAB MICROBIOLOGY METHOD 11/22/2024 3:19 PM EDT [facility] Influenza A PCR Not Detected Not Detected LAB MICROBIOLOGY METHOD 11/22/2024 3:19 PM EDT [facility] Influenza B PCR Not Detected Not Detected LAB MICROBIOLOGY METHOD 11/22/2024 3:19 PM EDT [facility] Coronavirus 229E Not Detected Not Detected LAB MICROBIOLOGY METHOD 11/22/2024 3:19 PM EDT [facility] Coronavirus HKU1 Not Detected Not Detected LAB MICROBIOLOGY METHOD 11/22/2024 3:19 PM EDT [facility] Coronavirus OC43 Not Detected Not Detected LAB MICROBIOLOGY METHOD 11/22/2024 3:19 PM EDT [facility] Coronavirus NL63 Not Detected Not Detected LAB MICROBIOLOGY METHOD 11/22/2024 3:19 PM EDT [facility] Parainfluenza Virus 1 Not Detected Not Detected LAB MICROBIOLOGY METHOD 11/22/2024 3:19 PM EDT [facility] Parainfluenza Virus 2 Not Detected Not Detected LAB MICROBIOLOGY METHOD 11/22/2024 3:19 PM EDT [facility] Parainfluenza Virus 3 Not Detected Not Detected LAB MICROBIOLOGY METHOD 11/22/2024 3:19 PM EDT [facility] Parainfluenza Virus 4 Not Detected Not Detected LAB MICROBIOLOGY METHOD 11/22/2024 3:19 PM EDT [facility] RSV PCR Not Detected Not Detected LAB MICROBIOLOGY METHOD 11/22/2024 3:19 PM EDT [facility] Human Metapneumovirus A and B Not Detected Not Detected LAB MICROBIOLOGY METHOD 11/22/2024 3:19 PM EDT [facility] Rhinovirus/Entero virus Not Detected Not Detected LAB MICROBIOLOGY METHOD 11/22/2024 3:19 PM EDT [facility] Bordetella pertussis Not Detected Not Detected LAB MICROBIOLOGY METHOD 11/22/2024 3:19 PM EDT [facility] Bordetella parapertussis Not Detected Not Detected LAB MICROBIOLOGY METHOD 11/22/2024 3:19 PM EDT [facility] Mycoplasma pneumo by PCR Not Detected Not Detected LAB MICROBIOLOGY METHOD 11/22/2024 3:19 PM EDT [facility] Chlamydia pneumoniae Not Detected Not Detected LAB MICROBIOLOGY METHOD 11/22/2024 3:19 PM EDT [facility] SARS COV-2 Not Detected Not Detected LAB MICROBIOLOGY METHOD 11/22/2024 3:19 PM EDT [facility] Swab Both anterior nares / Unknown Non-blood Collection / Unknown 11/22/2024 2:07 PM EDT 11/22/2024 2:24 PM EDT Narrative [facility] - 11/22/2024 3:19 PM EDT Testing was performed using the [employer] Respiratory Pathogen PCR Assay. All results must [...] Final Result Performing Organization Address [facility]/ZIP Co de Phone Number [facility] [address] [place] [address], [place] [phone] * Lactate, with Reflex (11/22/2024 1:52 PM EDT) Pathologist [facility] LACTIC ACID 0.6 0.4 - 2.0 mmol/L LAB CHEMISTRY METHOD 11/22/2024 2:53 PM EDT [facility] Blood Venous blood specimen / Unknown Venipuncture / Unknown 11/22/2024 1:52 PM EDT 11/22/2024 2:02 PM EDT Tai Olivier MD LAB BLOOD ORDERABLES Final Result [facility] [address] [place] [address], [place] [phone] * (ABNORMAL) Comprehensive Metabolic Panel (CMP) (11/22/2024 1:52 PM EDT) Sodium 137 133 - 145 mmol/L LAB CHEMISTRY METHOD 11/22/2024 2:46 PM EDT [facility] Potassium 3.6 3.5 - 5.5 mmol/L LAB CHEMISTRY METHOD 11/22/2024 2:46 PM [facility] Chloride 106 96 - 110 mmol/L LAB CHEMISTRY METHOD 11/22/2024 2:46 PM [facility] CO2 27 21 - 32 mmol/L LAB CHEMISTRY METHOD 11/22/2024 2:46 PM [facility] Anion Gap 4 3 - 11 LAB CHEMISTRY METHOD 11/22/2024 2:46 PM [facility] Glucose 89 70 - 100 mg/dL LAB CHEMISTRY METHOD 11/22/2024 2:46 PM [facility] BUN 26(H) 5 - 25 mg/dL LAB CHEMISTRY METHOD 11/22/2024 2:46 PM [facility] Creatinine 1.78(H) 0.50 - 1.10 mg/dL LAB CHEMISTRY METHOD 11/22/2024 2:46 PM [facility] eGFR 34(L) >=60 mL/min/1. 73m2 LAB CHEMISTRY METHOD 11/22/2024 2:46 PM [facility] Comment:Calculation based on the Chronic Kidney Disease Epidemiology Collaboration (CKD-EPI) equation refit without adjustment for race. BUN/Creatinine Ratio 14.6 LAB CHEMISTRY METHOD 11/22/2024 2:46 PM [facility] Calcium 7.9(L) 8.5 - 10.5 mg/dL LAB CHEMISTRY METHOD 11/22/2024 2:46 PM [facility] AST (SGOT) 13 10 - 42 unit/L LAB CHEMISTRY METHOD 11/22/2024 2:46 PM [facility] ALT (SGPT) 7(L) 10 - 60 unit/L LAB CHEMISTRY METHOD 11/22/2024 2:46 PM [facility] Alkaline Phosphatase 77 42 - 121 unit/L LAB CHEMISTRY METHOD 11/22/2024 2:46 PM [facility] Total Protein 5.2(L) 6.0 - 8.0 g/dL LAB CHEMISTRY METHOD 11/22/2024 2:46 PM EDT [facility] Albumin 2.5(L) 3.2 - 5.0 g/dL LAB CHEMISTRY METHOD 11/22/2024 2:46 PM EDT [facility] Total Bilirubin 0.6 0.0 - 1.4 mg/dL LAB CHEMISTRY METHOD 11/22/2024 2:46 PM EDT [facility] Blood Venous blood specimen / Unknown Venipuncture / Unknown 11/22/2024 1:52 PM EDT 11/22/2024 2:07 PM EDT us Tai Olivier MD LAB BLOOD ORDERABLES Final Result [facility] [address] [place] [address], from Last 3 Months Insurance MEDICAID - [...] currently active code status orders. Care Teams Band Presser Relationship Specialty Start Date End Date Zev Sanders MD [address] [place] [address] PCP - General Internal Medicine 10/27/19
--- OUTSIDE RECORDS SUMMARY | 2025-01-13 18:16 | XMS_ITS | Encounter Summary ---
Author Organization [employer] Address [address] [place] [address] Care Team Providers Care Procurement Clerk Name Role Phone Zev Sanders MD Primary Care Provider [phone] Michelle Quiroz RN Unavailable [phone] Gonzalo Lima Unavailable Benedict Lima RN Unavailable [phone] Encounter Details Date Type Department Care Team (Late st Contact Info) Description 11/25/2024 Orders Only [facility] [address] [place], [place] [id number] Provider, MD Josh Social History Tobacco Use [...] Team ([facility] st Contact Info) Description 01/17/2025 3:15 PM EDT Office Visit [facility] [address] [place] [address] Zev Sanders MD [address] [place] [address] documented as of this encounter Procedures Procedure [...] documented as of this encounter Care Teams Procurement Clerk Relationship Specialty Start Date End Date Zev Sanders MD [address] [place] [address] PCP - General Internal Medicine 11/16/19 Michelle Quiroz RN [address] [place] [address] Registered Nurse Family Medicine 10/04/24 12/06/24 Gonzalo Lima 10/04/24 Benedict Lima, BIANCA [address] [place] [address] Registered Nurse Family Medicine 12/06/24 01/12/25 documented as of this encounter
--- OUTSIDE RECORDS SUMMARY | 2025-01-13 18:16 | XMS_ITS | Encounter Summary ---
Author Organization [employer] Address [address] [facility] 7[address] [place] [address] Care Team Providers Care Fly Fishing Guide Name Role Phone Zev Sanders MD Primary Care Provider [phone] Michelle Quiroz RN Unavailable [phone] Gonzalo Lima Unavailable Benedict Lima RN Unavailable [phone] Reason for Visit * Reason Onset Date Comments Med Refill 07/21/2023 Encounter Details Date Type Department Care Team (Late st Contact Info) Description 07/21/2023 Telephone [facility] [address] [place] [address] Zev Sanders MD [address] [place] [address] Med Refill Social History Tobacco Use Types [...] 150 MG capsule To be sent to: [facility] - [address] documented in this encounter Plan of Treatment Upcoming Encounters Date Type Department Care Team ([facility] st Contact Info) Description 01/17/2025 3:15 PM EDT Office Visit [facility] [address] [place] [address] Zev Sanders MD [address] [place] [address] documented as of this encounter Visit Diagnoses Not on filedocumented in this encounter Care Teams Fly Fishing Guide Relationship Specialty Start Date End Date Zev Sanders MD [address] [place] [address] PCP - General Internal Medicine 11/16/19 Michelle Quiroz RN [address] [place] [address] Registered Nurse Family Medicine 10/04/24 12/06/24 Gonzalo Lima 10/04/24 Benedict Lima RN [address] [place] [address] Registered Nurse Family Medicine 12/06/24 01/12/25 documented as of this encounter
--- OUTSIDE RECORDS SUMMARY | 2025-01-13 18:16 | XMS_ITS | Encounter Summary ---
Author Organization [employer] Address [address] [place] [address] 7 [place] [address] Care Team Providers Care Fiberglass Auto Body Repairer Name Role Phone Zev Sanders MD Primary Care Provider [phone] Michelle Quiroz RN Unavailable [phone] Gonzalo Lima Unavailable Benedict Lima RN Unavailable [phone] Encounter Details Date Type Department Care Team (Late Contact Info) Description 10/22/2022 Orders Only [facility] [address] [place] [address] Zev Sanders MD [address] [place] [address] Gastroenteritis (Primary Dx) Social History Tobacco Use [...] Encounters Date Type Department Care Team ([facility] Contact Info) Description 01/17/2025 3:15 PM EDT Office Visit [facility] [address] [place] [address] Zev Sanders MD [address] [place] [address] documented as of this encounter Visit Diagnoses Diagnosis Gastroenteritis- Primary Other and unspecified noninfectious gastroenteritis and colitis documented in this encounter Care Teams Fiberglass Auto Body Repairer Relationship Specialty Start Date End Date Zev Sanders MD [address] [place] [address] PCP - General Internal Medicine 11/16/19 Michelle Quiroz RN [address] [place] [address] Registered Nurse Family Medicine 10/04/24 12/06/24 Gonzalo Lima 10/04/24 Benedict Lima, BIANCA [address] [place] [address] Registered Nurse Family Medicine 12/06/24 01/12/25 documented as of this encounter
--- OUTSIDE RECORDS SUMMARY | 2025-01-13 18:16 | XMS_ITS | Encounter Summary ---
Author Organization [employer] Address [address] [facility] 7[address] [place] [address] Care Team Providers Care Clinical Recruiter Name Role Phone Zev Sanders MD Primary Care Provider [phone] Michelle Quiroz RN Unavailable [phone] Gonzalo Lima Unavailable Benedict Lima RN Unavailable [phone] Encounter Details Date Type Department Care Team (Late st Contact Info) Description 11/23/2024 Orders Only [facility] [address] [place] [address] Provider, MD Josh Social History Tobacco Use [...] Upcoming Encounters Date Type Department Care Team ([facility] st Contact Info) Description 01/17/2025 3:15 PM EDT Office Visit [facility] [address] [place] [address] Zev Sanders MD [address] [place] [address] documented as of this encounter Procedures Procedure [...] as of this encounter Care Teams Clinical Recruiter Relationship Specialty Start Date End Date Zev Sanders MD [address] [place] [address] PCP - General Internal Medicine 11/16/19 Mihcelle Quiroz RN [address] [place] [address] Registered Nurse Family Medicine 10/04/24 12/06/24 Gonzalo Lima 10/04/24 Benedict Lima RN [address] [place] [address] Registered Nurse Family Medicine 12/06/24 01/12/25 documented as of this encounter
== END 2025-01-13 14:46 | disposition home or self-care (01) ==
PROVIDERS: PCP Internal Medicine; Visit Provider Nurse Practitioner Family
DX: Z79.891 Long term (current) use of opiate analgesic (principal); M54.2 Cervicalgia; M51.369 Other intervertebral disc degeneration, lumbar region without mention of lumbar back pain or lower extremity pain; M47.816 Spondylosis without myelopathy or radiculopathy, lumbar region; G89.4 Chronic pain syndrome
CPT/HCPCS: 99214

== ENCOUNTER → 2025-01-13 14:26 | Outpatient (BNVA) | payer MEDICAID, SELFPAY | PROVIDERS: PCP Internal Medicine; Visit Provider Nurse Practitioner Family | DX: M54.2 Cervicalgia (principal); M51.369 Other intervertebral disc degeneration, lumbar region without mention of lumbar back pain or lower extremity pain; M47.816 Spondylosis without myelopathy or radiculopathy, lumbar region; G89.4 Chronic pain syndrome; Z51.81 Encounter for therapeutic drug level monitoring; Z79.891 Long term (current) use of opiate analgesic | CPT/HCPCS: 99212 ==

== ENCOUNTER 2025-01-19 14:20 | Outpatient (AMB) | payer MEDICAID, SELFPAY ==
[2025-01-19 14:40] VITALS: BP 102/58; PULSE 81; O2SAT 98; BMI 21.0
--- NOTE | 2025-01-19 14:40 | MHC.OFFVIS ---
Vital Signs 01/19/25 14:40 Height 5 ft 4 in Weight 122 lb 5.705 oz BMI 21.0 BP 102/58 L Blood Pressure Location Lt brachial Position Sitting Pulse 81 Pulse Source Pulse Oximeter Pulse Oximetry (%) 98 Oxygen Delivery Method Nasal Cannula Oxygen Flow Rate 3 Intake Visit Reasons: f/u ct scan Intake Note: pt is here for follow up of ct scan and is feeling well today. Occupational Therapist Required: No Stabilizer Operator: Stabilizer Operator offered & declined Allergies Penicillins (PENICILLINS) Allergy (Severe, Verified 01/19/25 15:09) RASH seafood Allergy (Verified 01/19/25 15:09) Rash Medication List - Last Reconciled 01/19/25 by Erickson Mathews MD albuterol sulfate 90 mcg/actuation (Ventolin HFA) 2 puffs inhalation QID PRN budesonide-formoterol 160-4.5 mcg/actuation (Symbicort) 2 puffs inhalation BID cholecalciferol (vitamin D3) 50 mcg PO DAILY docusate sodium 100 mg PO BID PRN esomeprazole magnesium 40 mg PO DAILY@0630 ipratropium-albuterol 0.5 mg-3 mg(2.5 mg base)/3 mL 3 mL inhalation Q6H PRN lidocaine 5% 1 patch topical DAILY lisinopril 20 mg PO QAM mirtazapine 45 mg PO BEDTIME montelukast 10 mg PO BEDTIME naloxone 4 mg/actuation (Narcan) 4 mg intranasal Q2M PRN oxycodone 5 mg PO TID PRN 30 days prednisone 5 mg PO DAILY Held on 09/27/24. Instructions: Resume on 10/14/24. prednisone 5 mg PO DAILY 30 days pregabalin 150 mg PO BID quetiapine (Seroquel) 100 mg PO BEDTIME tiotropium bromide 2.5 mcg/actuation (Spiriva Respimat) 2 puffs inhalation DAILY HPI HPI f/u ct scan: Details: Deysi is here for follow-up after 1 month. During the past month her breathing has been very stable. She claims that this is due to prednisone 5 mg daily. She has shortness of breath on walking around, . But not at rest She denies any cough or expectoration. She walks around with a walker. And she is on O2 2 L/minute continuously. [facility] Medical History Current non-smoker but past smoking history unknown Respiratory failure with hypoxia COPD exacerbation Pre-op examination History of OCD (obsessive compulsive disorder) History of panic attacks Anxiety and depression Radiculopathy, lumbar region HTN (hypertension) Sacroiliitis COPD (chronic obstructive pulmonary disease) Asthma Allergic rhinitis Disc degeneration, lumbar Surgical History History of surgery History of appendectomy Hx of tonsillectomy Status post excision of lipoma History of tubal ligation Hx of excision of mass History of surgery History of laparoscopic cholecystectomy History of esophagogastroduodenoscopy (EGD) History of umbilical hernia repair History of incision and drainage Family History Family/Other Cervical cancer Family/Other Stomach cancer Social History Household Members: Significant Other and Family Household Members Other:: grandson Housing: House Do you presently have visiting nurse or other home services: No Alcohol intake: never Comment: Significant other bedside Patient Tobacco Use Status: Former Tobacco user Tobacco use type: Cigarette Substance Use Type: Marijuana Advance Directives Date on File: 04/09/24 service: No Current occupational status: unemployed Sexual orientation: Straight/Heterosexual Gender identity: Female Review of Systems Const All systems reviewed & are unremarkable except as noted in HPI and below Eyes Reports no additional complaints ENT Reports nasal congestion and Reports nasal discharge (OFF AND ON) Card Denies chest pain, Denies irregular heart rhythm and Denies leg edema Resp Reports as per HPI GI Reports no additional complaints Reports no additional complaints Musc Reports back pain and Reports arthralgias Skin/Breast Reports system reviewed and no additional complaints, except as documented Neuro Reports no additional complaints Psych Reports depression (Mild) Endo Reports no additional complaints Physical Exam Vital Signs: Last Vital Signs Pulse 81 01/19/25 14:40 BP 102/58 L 01/19/25 14:40 Pulse Ox 98 01/19/25 14:40 Oxygen Delivery Method Nasal Cannula 01/19/25 14:40 Oxygen Flow Rate 3 01/19/25 14:40 BMI result Body Mass Index 21.0 Const General: comfortable, no acute distress, alert and awake Orientation/consciousness: patient oriented x3 HEENT Head: Yes normal to inspection General nose exam: No nasal polyps present, No nasal discharge present and Other nasal findings present (Mild bilateral nasal congestion) Face and sinus: Yes sinuses nontender Mouth: oropharynx normal Throat: Yes posterior oropharynx normal Eyes General: appearance normal, both eyes and all related structures Neck Neck: Yes normal visual inspection, Yes no lymphadenopathy, Yes trachea midline and Yes no JVD Thyroid: Thyroid normal Chest Chest palpation & inspection: normal inspection of the chest, normal palpation of entire chest wall and no tenderness Resp Other: Percussion note is HYPER RESONANT , She does have good breath sounds on both sides but quite distant with prolonged expiratory phase. Has a few inspiratory crackles over the basilar areas, Cardio Palpation: normal PMI Rate: regular rate Rhythm: regular rhythm Heart sounds: no gallops and no murmurs Peripheral pulses: Peripheral pulses 2+ throughout GI Palpation (GI): Soft to palpation, nontender, No hepatosplenomegaly present and no masses Auscultation: normal bowel sounds Back/Spine/Pelvis Thoracic/Lumbar Spine: thoracic and lumbar spine normal to inspection and thoraco-lumbar ROM limited Skin General skin exam: no rashes or lesions noted Neuro General: patient oriented x3 and no focal motor deficits Cranial nerves: Yes CN's II-XII intact bilaterally Extrem General: Yes normal to inspection, Yes no clubbing, cyanosis or edema and Yes no calf tenderness Psych Appearance: grossly normal and well kempt Speech and movement: Normal speech and movement present Results Reviewed Results Reviewed: CT scan of the chest on 01/11/2025, findings are reviewed with her. Multifocal airspace opacities mostly improved. A few ground-glass linear densities in posterior lateral mid right lower lobe are seen. There is subacute right lateral 7th rib fracture Assessment & Plan Assessment & Plan (1) COPD (chronic obstructive pulmonary disease): Comment: ASTHMA/COPD SEVERE. COPD IS DUE TO HER CHRONIC [place]IF[place] BRONCHIAL ASTHMA AND PAST HISTORY OF SMOKING. SHE IS PRONE TO HAVE FREQUENT ACUTE EXACERBATIONS. CLINICALLY DOING FAIRLY WELL AND IS STABLE AT THIS TIME. TODAY SHE SEEMS TO BE AT HER BASE LINE. Code(s): J44.9 - Chronic obstructive pulmonary disease, unspecified Category: Medical Qualifiers: COPD type: COPD with acute exacerbation Qualified Code(s): J44.1 - Chronic obstructive pulmonary disease with (acute) exacerbation Plan: Continue the present medications which are as follows: Symbicort 160-4.52 puffs b.i.d. Ipratropium-albuterol 0.5 mg-3 mg 1 ampule in the nebulizer t.i.d. Spiriva Respimat 2 inhalations daily Montelukast 10 mg daily Prednisone 5 mg daily Vitamin-D 3 50 mcg daily Also advised to take calcium carbonate 600 mg b.i.d. (2) Respiratory failure with hypoxia: Comment: She was hypoxemic with minimal exertion. Has been started on O2 therapy. Feels stronger and better. USING O2 2 L/MINUTE 24 HOURS A DAY. HOWEVER WHEN RESTING AT HOME SHE COMES OF OXYGEN . FOR SHORT INTERVALS Code(s): J96.91 - Respiratory failure, unspecified with hypoxia Category: Medical Plan: Continue to use O2 2 L/minute (3) Current non-smoker but past smoking history unknown: Comment: PATIENT DOES HAVE LONGSTANDING HISTORY OF SMOKING. SHE QUIT COMPLETELY SINCE ABOUT 4 YEARS AGO. DOES NOT HAVE ANY URGE. TO GO BACK TO SMOKING Code(s): Z78.9 - Other specified health status Category: Social Hx Plan: Commended for not going back to smoking (4) Pulmonary nodules: Comment: As noted in the CTA of chest report, she does have multiple pulmonary nodules, and 1 density is 2 cm in right lower lobe. These nodules may be non-specific/ inflammatory in nature/ and also representing patchy atelectasis. REPEAT CT SCAN ON 11/04/2024 SHOWED NONSPECIFIC DENSITIES BUT NO PULMONARY NODULE Present CT scan on 01/11/2025, shows that more multifocal airspace opacities are mostly improved. There is a linear ground-glass density in the posterior lateral mid right lower lobe, most likely inflammatory Code(s): R91.8 - Other nonspecific abnormal finding of lung field Category: Medical Plan: I think most of the densities due to nonspecific alveolitis which much improved with the use of prednisone. She will continue to have CT scan of the chest once a year (5) Allergic rhinitis: Comment: SHE HAS CHRONIC, YEAR ROUND ALLERGIC RHINITIS. CURRENTLY IT IS UNDER CONTROL WITH HER MEDICATION REGIMEN. Code(s): J30.9 - Allergic rhinitis, unspecified Category: Medical Plan: Continue montelukast 10 mg daily Coding Level of Care Code Est Pt Level 4 (60486) Diagnoses COPD (chronic obstructive pulmonary disease) J44.1 COPD type: COPD with acute exacerbation Respiratory failure with hypoxia J96.91 Current non-smoker but past smoking history unknown Z78.9 Pulmonary nodules R91.8 Allergic rhinitis J30.9
== END 2025-01-19 15:05 | disposition home or self-care (01) ==
LOC: HO.HPS 14:20
PROVIDERS: PCP Internal Medicine; Visit Provider Internal Medicine
DX: J44.1 Chronic obstructive pulmonary disease with (acute) exacerbation (principal); J96.91 Respiratory failure, unspecified with hypoxia; Z78.9 Other specified health status; R91.8 Other nonspecific abnormal finding of lung field; J30.9 Allergic rhinitis, unspecified
CPT/HCPCS: 99214

== ENCOUNTER → 2025-01-19 14:20 | Outpatient (BNVA) | payer MEDICAID, SELFPAY | PROVIDERS: PCP Internal Medicine; Visit Provider Internal Medicine | DX: Z71.2 Person consulting for explanation of examination or test findings (principal); J44.1 Chronic obstructive pulmonary disease with (acute) exacerbation; J96.91 Respiratory failure, unspecified with hypoxia; R91.8 Other nonspecific abnormal finding of lung field; J30.9 Allergic rhinitis, unspecified | CPT/HCPCS: 99212 ==

== ENCOUNTER 2025-02-10 13:14 | Outpatient (AMB) | payer MEDICAID, SELFPAY ==
--- NOTE | 2025-02-10 13:23 | A.OFFVIS_ITS ---
Vital Signs 02/10/25 13:41 Height 5 ft 4 in Weight 128 lb BMI 22.0 BP 115/69 Blood Pressure Location Lt brachial Position Sitting Pulse 76 Pulse Source Pulse Oximeter Pulse Oximetry (%) 96 Oxygen Delivery Method Nasal Cannula Oxygen Flow Rate 3 Intake Visit Reasons: Pill Count Intake Note: Deysi comes in today for a pill count to oxycodone, patient should have 63 tablets and presents with 66 tablets which she last took today 02/10/25 at 7am. 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 She is supposed to have #63 pills in her possession and presents with #66 pills. This demonstrates a responsible attitude in regards to her opioid regimen. Patient reports adequate analgesia on her current regime without side effects. Pain is rated at 5/10, mainly affecting her chronic lower back areas with movements, walking or prolonged standing as well with onset of cold wintry weather. Patient utilizes oxygen 2-3 L with rest or sitting and 3-4 L with ambulation. S he is followed by [facility]. Patient denies any fever, chills, weight loss, abdominal or groin pain, constipation, urinary retention, sedation, nausea, vomiting, constipation, sedation, dizziness, or urinary retention. Patient is grieving the loss of her daughter who and reports it a difficult time for her during this holiday season. She reports good social and family support. [facility] Medical History Current non-smoker but past smoking history unknown Respiratory failure with hypoxia COPD exacerbation Pre-op examination History of OCD (obsessive compulsive disorder) History of panic attacks Anxiety and depression Radiculopathy, lumbar region HTN (hypertension) Sacroiliitis COPD (chronic obstructive pulmonary disease) Asthma Allergic rhinitis Disc degeneration, lumbar Surgical History History of surgery History of appendectomy Hx of tonsillectomy Status post excision of lipoma History of tubal ligation Hx of excision of mass History of surgery History of laparoscopic cholecystectomy History of esophagogastroduodenoscopy (EGD) History of umbilical hernia repair History of incision and drainage Family History Family/Other Cervical cancer Family/Other Stomach cancer Social History Household Members: Significant Other and Family Household Members Other:: grandson Housing: House Do you presently have visiting nurse or other home services: No Alcohol intake: never Comment: Significant other bedside Patient Tobacco Use Status: Former Tobacco user Tobacco use type: Cigarette Substance Use Type: Marijuana Advance Directives Date on File: 04/09/24 service: No Current occupational status: unemployed Sexual orientation: Straight/Heterosexual Gender identity: Female Review of Systems Const All systems reviewed & are unremarkable except as noted in HPI and below Physical Exam General: Appears afebrile. Alert and oriented. Mood and affect appropriate. Pleasant. Follows and participates in conversation appropriately. Respiratory effort is unlabored. No cough. O2 at 3L/min continuos. Able to transition from sit to stand unassisted. Ambulates with antalgic gait, mild limping. Psych Appearance: grossly normal and well kempt Mental Status: mental status grossly normal Speech and movement: Normal speech and movement present Affect: normal affect and Sad affect present Attitude: cooperative Thought process: Normal thought process present Thought content: Normal thought content present, suicidality (none), no hallucinations and Depressive thoughts present Insight: Good insight present (Psych) Judgement: Good judgement present (Psych) Results Reviewed Results Reviewed: MRI LUMBAR SPINE WITHOUT CONTRAST EXAM DATE 05/07/2019 The marrow signal is within normal limits. Moderate disc space narrowing at L3- L4, severe loss of disc height L4-5 with endplate spurring mild endplate edema laterally on the right at L4-5. Mild rightward curvature of lumbar spine. No compression fractures. Trace anterior subluxation at L4-5. The paraspinal soft tissues appear normal. Bony pelvis is normal. Conus medullaris: Normal terminating at the level of L1. No level a spinal cord abnormalities. The cauda equina nerve roots are normal. Spinal levels: L1-L2: No disc pathology. No central canal stenosis or foraminal narrowing. L2-L3: Very mild disc bulge presents without central canal stenosis or foraminal encroachment. L3-L4: Moderate loss of disc height with large left foraminal disc extrusion! Severely compressing the exiting left L3 nerve root. Underlying mild disc bulge and mild facet arthropathy. No central canal stenosis. L4-5: Significant loss of disc height with broad-based disc bulge and right foraminal extraforaminal disc protrusion mildly distorting the exiting right L4 nerve root. Moderate facet arthropathy without central canal stenosis. L5-S1: Mild facet arthrosis no disc pathology: No central canal stenosis, or foraminal narrowing. XR SOFT TISSUE NECK 06/09/23 FINDINGS: Limited evaluation of the lower cervical spine secondary to patient positioning. No acute visible fracture or dislocation. Multilevel degenerative changes. Vertebral body heights and disc spaces are maintained. Prevertebral soft tissues unremarkable. Posterior elements are intact. Paraspinal soft tissues are unremarkable. Visualized portions of the upper chest are unremarkable. IMPRESSION: 1. Limited evaluation of the lower cervical spine secondary to patient positioning. 2. No acute visible fracture or dislocation. 3. Multilevel degenerative changes. CT/CT soft tissue neck w IV con 06/25/23 IMPRESSION: No cervical adenopathy or extra-mucosal soft tissue mass. Rightward curvature of the cervical spine with multilevel hypertrophic facet arthropathy. Mild amount of secretions in the tracheal airway which potentially would put the patient at risk for aspiration. Significant emphysematous changes in the lungs. XR ANKLE 3 OR MORE VIEWS RIGHT 05/14/24 HISTORY: pain COMPARISON: There are no prior studies available for comparison. FINDINGS: Three views of the right ankle are submitted. Osseous mineralization is normal. There is no fracture or dislocation. The joint spaces are preserved. The soft tissues are unremarkable. IMPRESSION: Unremarkable examination of the right ankle. Assessment & Plan Assessment & Plan (1) Opioid contract exists: Code(s): Z79.891 - intermediate (current) use of opiate analgesic Category: Medical (2) Cervicalgia: Code(s): M54.2 - Cervicalgia Category: Medical (3) Disc degeneration, lumbar: Code(s): M51.36 - Other intervertebral disc degeneration, lumbar region Category: Medical (4) Spondylosis of lumbar region without myelopathy or radiculopathy: Code(s): M47.816 - Spondylosis without myelopathy or radiculopathy, lumbar region Category: Medical (5) Chronic pain syndrome: Code(s): G89.4 - Chronic pain syndrome Category: Medical Plan Patient has shown accountability for her medication regimen and the pill count was accurate. Masspat was reviewed and without concerns. No obvious signs of diversion, abuse or misuse of the opioid medications. Patient reports reasonable analgesia on current medication regime. Prescription sent for Oxycodone 5mg po TID prn with an advanced date of 03/02/25. Patient has Narcan script at home. She also takes pregabalin 150 mg BID prescribed by her PCP. Patient to follow-up in the office in 4-5 weeks for pill count and sooner as ne eded. Medications: Refilled oxycodone Partial Fill upon patient request. 5 mg PO TID PRN 90 tabs 0RF pain 30 days M46.1 - Sacroiliitis, not elsewhere classified, M47.816 - Spondylosis without myelopathy or radiculopathy, lumbar region, M51.36 - Other intervertebral disc degeneration, lumbar region Coding Level of Care Code Est Pt Level 4 (38040) Complex EM visit Add On G2211 Diagnoses Opioid contract exists Z79.891 Cervicalgia M54.2 Disc degeneration, lumbar M51.36 Spondylosis of lumbar region without myelopathy or radiculopathy M47.816 Chronic pain syndrome G89.4
[2025-02-10 13:41] VITALS: BP 115/69; PULSE 76; O2SAT 96; BMI 22.0
--- OUTSIDE RECORDS SUMMARY | 2025-02-10 16:34 | XMS_ITS | Encounter Summary ---
Author Organization [employer] Address [address] [facility] 7 [place] [address] Care Team Providers Care Tube Puller Name Role Phone Zev Sanders MD Primary Care Provider [phone] Michelle Quiroz RN Unavailable Unavailable Gonzalo Lima Unavailable Benedict Lima RN Unavailable [phone] Reason for Visit * Reason Onset Date Comments ER Follow-up 10/04/2024 Encounter Details Date Type Department Care Team ([facility] st Contact Info) Description 10/04/[address] [facility] [address] [place], [place] [phone] Zev Sanders MD [address] [place], [place] [phone] ER Follow-up Social History Tobacco Use Types [...] to report ED visit on : Date: [facility]: 10/01/24 Seen for: Trouble breathing Symptomatic No Requesting a referral to data base administrator at [facility]. Contact pt at [phone] documented in this encounter Plan of Treatment Not on file documented as of this encounter Visit Diagnoses Not on filedocumented in this encounter Additional Health Concerns Assessment Noted Time PHQ-9 Depression Total Score: 7 10/14/19 24 11:59 AM EDT documented as of this encounter Care Teams Tube Puller Relationship Specialty Start Date End Date Zev Sanders MD [address] [place] [address] PCP - General Internal Medicine 11/16/19 Michelle Quiroz RN [address] [place] [address] Registered Nurse Family Medicine 10/04/24 12/06/24 Gonzalo Lima 10/04/24 Benedict Lima RN [address] [place] [address] Registered Nurse Family Medicine 12/06/24 01/12/25 documented as of this encounter
--- OUTSIDE RECORDS SUMMARY | 2025-02-10 16:34 | XMS_ITS | Encounter Summary ---
Author Organization [employer] Address [address] [facility] [address] [place] [address] Care Team Providers Care Coating Machine Operator Helper Name Role Phone Zev Sanders MD Primary Care Provider [phone] Michelle Quiroz RN Unavailable Unavailable Gonzalo Lima Unavailable Benedict Lima RN Unavailable [phone] Encounter Details Date Type Department Care Team (Late st Contact Info) Description 12/24/2022 Orders Only [facility] [address] [place] [id number] Provider, MD Josh Social History Tobacco Use [...] on filedocumented in this encounter Care Teams Coating Machine Operator Helper Relationship Specialty Start Date End Date Zev Sanders MD [address] [place] [address] PCP - General Internal Medicine 11/16/19 Michelle Quiroz RN [address] [place] [address] Registered Nurse Family Medicine 10/04/24 12/06/24 Gonzalo Lima 10/04/24 Benedict Lima RN [address] [place] [address] Registered Nurse Family Medicine 12/06/24 01/12/25 documented as of this encounter
--- OUTSIDE RECORDS SUMMARY | 2025-02-10 16:34 | XMS_ITS | Encounter Summary ---
Author Organization [employer] Address [address] [facility] 7t [place] [address] Care Team Providers Care Senior Courtroom Clerk Name Role Phone Zev Sanders MD Primary Care Provider [phone] Michelle Quiroz RN Unavailable Unavailable Gonzalo Lima Unavailable Benedict Lima RN Unavailable [phone] Encounter Details Date Type Department Care Team (Late st Contact Info) Description 07/21/2023 Orders Only [facility] [address] [place], [place] [phone] Zev Sanders MD [address] [place], [place] [phone] Social History Tobacco Use Types Packs/Day Years [...] filedocumented in this encounter Care Teams Senior Courtroom Clerk Relationship Specialty Start Date End Date Zev Sanders MD [address] [place] [address] PCP - General Internal Medicine 11/16/19 Michelle Quiroz RN [address] [place] [address] Registered Nurse Family Medicine 10/04/24 12/06/24 Gonzalo Lima 10/04/24 Benedict Lima RN [address] [place] [address] Registered Nurse Family Medicine 12/06/24 01/12/25 documented as of this encounter
--- OUTSIDE RECORDS SUMMARY | 2025-02-10 16:34 | XMS_ITS | Encounter Summary ---
Author Organization [employer] Address [address] [place] [address] [address] [place] [address] Care Team Providers Care Wood Stainer Name Role Phone Zev Sanders MD Primary Care Provider [phone] Gonzalo Lima Unavailable Benedict Lima RN Unavailable [phone] Reason for Referral * Consultation (Urgent) - Closed Specialty Diagnoses / Procedures Referred By Armando ye Referred To Contact Orthopaedic Surgery Diagnoses Synovial cyst of right popliteal space Zev Sanders MD [address] [place] [address] Phone: tel: fax: [facility] [address] [place] [address] Phone: tel: fax: Referral ID Status Reason Start Date Expiration Date V isits Requested Visits Authorized [id number] Closed Specialty Services Required 12/17/2024 12/17/2025 1 1 Encounter Details Date Type Department Care Team (Late st Contact Info) Description 12/15/2024 Orders Only [facility] [address] [place], [place] [phone] Zev Sanders MD [address] [place] [address] Essential hypertension (Primary Dx); Synovial cyst of [...] as of this encounter Plan of Treatment Scheduled Referrals Name Type Priority Associated Diagnoses [...] PM EDT Narrative 01/11/2025 5:05 PM EDT [place] [address] [address] Scan Report Signed Patient: Deysi Pfeiffer MR#: [id number] : 1970 Acct:[id number] Age/Sex: 54 / F ADM Date: 01/11/25 Loc: HO.CT Attending Dr: Erickson Mathews MD Ordering Physician: Erickson Mathews MD Date of Service: 01/11/25 Procedure(s): CT chest wo IV con Accession Number(s): [id number] cc: Erickson Mathesw MD; Zev Sanders MD Report Number: [id number]: Total DLP = 78.00 mGy-cm Reason for [...] 01/11/25 1701 DD/ 1556 TD/TT: 01/11/25 1624 Treatment Counselor: Procedure Note Donotuseinterpreter, Image - 01/11/[address] [place] [address] [address] Scan Report Signed Patient: Deysi Pfeiffer DMR#: [id number] : 1970Acct:[id number] Age/Sex: 54 / FADM Date: 01/11/25 Loc: HO.CT Attending Dr: Erickson Mathews MD Ordering Physician: Erickson Mathews MD Date of Service: 01/11/25 Procedure(s): CT chest wo IV con Accession Number(s): [id number] cc: Erickson Mathews MD; Zev Sanders MD Report Number: [id number]: Total DLP = 78.00 mGy-cm Reason for [...] 01/11/25 1701 DD/ 1556 TD/TT: 01/11/25 1624 Treatment Counselor: [facility] External Provider IMG CT PROCEDURES Final Result documented in this encounter Visit Diagnoses Diagnosis Essential hypertension- Primary Unspecified essential hypertension Synovial cyst of right popliteal space documented in this encounter Additional Health Concerns Assessment Noted Time PHQ-9 Depression Total Score: 2 10/15/19 11:49 AM EDT documented as of this encounter Care Teams Wood Stainer Relationship Specialty Start Date End Date Zev Sanders MD [address] [place] [address] PCP - General Internal Medicine 11/16/19 Gonzalo Lima 10/04/24 Benedict Lima RN [address] [place] [address] Registered Nurse Family Medicine 12/06/24 01/12/25 documented as of this encounter
--- OUTSIDE RECORDS SUMMARY | 2025-02-10 16:34 | XMS_ITS | Encounter Summary ---
Author Organization [employer] Address [address] [facility] 7t [place] [address] Care Team Providers Care Char House Supervisor Name Role Phone Zev Sanders MD Primary Care Provider [phone] Michelle Quiroz RN Unavailable Unavailable Gonzalo Lima Unavailable Benedict Lima RN Unavailable [phone] Reason for Visit * Reason Comments Med Refill Encounter Details Date Type Department Care Team (Late st Contact Info) Description 10/28/2024 Refill [facility]S [address] [place] [address] Darlene Gant MD [address] [place] [address] Chronic low back pain, unspecified back pain [...] documented as of this encounter Care Teams Char House Supervisor Relationship Specialty Start Date End Date Zev Sanders MD [address] [place] [address] PCP - General Internal Medicine 11/16/19 Michelle Quiroz RN [address] [place] [address] Registered Nurse Family Medicine 10/04/24 12/06/24 Gonzalo Lima 10/04/24 Benedict Lima RN [address] [place] [address] Registered Nurse Family Medicine 12/06/24 01/12/25 documented as of this encounter
--- OUTSIDE RECORDS SUMMARY | 2025-02-10 16:34 | XMS_ITS | Encounter Summary ---
Author Organization [employer] Address [address] [facility] [address] [place] [address] Care Team Providers Care Hardboard Press Operator Name Role Phone Zev Sanders MD Primary Care Provider [phone] Michelle Quiroz RN Unavailable Unavailable Gonzalo Lima Unavailable Benedict Lima RN Unavailable [phone] Encounter Details Date Type Department Care Team (Late st Contact Info) Description 11/25/2024 Orders Only [facility]S [address] [place] [address] Provider, MD Josh Social History Tobacco Use [...] IMG XR PROCEDURES Final R esult * ECG 12 lead (11/23/2024 11:53 AM EDT) Historical Provider ECG ORDERABLES Final Res ult * ECG 12 lead (11/23/2024 11:52 AM EDT) Historical Provider ECG ORDERABLES Final Res ult documented in this encounter Visit Diagnoses Not on filedocumented in this encounter Additional Health Concerns Assessment Noted Time PHQ-9 Depression Total Score: 2 10/15/19 11:49 AM EDT documented as of this encounter Care Teams Hardboard Press Operator Relationship Specialty Start Date End Date Zev Sanders MD [address] [place] [address] PCP - General Internal Medicine 11/16/19 Michelle Quiroz RN [address] [place] [address] Registered Nurse Family Medicine 10/04/24 12/06/24 Gonzalo Lima 10/04/24 Benedict Lima RN [address] [place] [address] Registered Nurse Family Medicine 12/06/24 01/12/25 documented as of this encounter
--- OUTSIDE RECORDS SUMMARY | 2025-02-10 16:34 | XMS_ITS | Clinical Summary ---
Author Organization [employer] Address [address] [place] [address] 7t [place] [address] Care Team Providers Care Forger Helper Name Role Phone Zev Sanders MD Primary Care Provider [phone] Gonzalo Lima Unavailable Allergies Active Allergy Reactions Criticality Noted Date Comments Penicillins Rash High 05/13/2019 RASH ON MOUTH WHEN A CHILD Shellfish Allergy Rash Low 04/08/2024 Medications tiotropium (Spiriva Respimat) 2.5 MCG/ACT inhalerIndicati ons:COPD (chronic obstructive pulmonary disease) case management patient ([facility] [address]/[facility]) ([facility]) INHALE TWO PUFF BY MOUTH EVERY MORNING 4 g 5 06/19/19 23 Active budesonide-form oterol (Symbicort) 160-4.5 MCG/ACT inhaler Inhale 2 puffs in the morning and at bedtime. 06/02/19 22 Active ipratropium-alb uterol (Duo-Neb) 0.5-2.5 mg/3 mL [...] 72 mL 11 05/10/19 25 2025 Active QUEtiapine (SEROquel) 100 MG tablet Take 1 tablet (100 mg) by mouth at bedtime. 30 tablet 07/13/19 25 Active Ventolin HFA 108 (90 Base) MCG/ACT inhaler Inhale 2 puffs every 6 (six) hours if needed for wheezing. Active esomeprazole (NexIUM) [address] capsule TAKE ONE CAPSULE EVERY MORNING 90 capsule 1 12/02/19 25 Active SUMAtriptan (Imitrex) 25 MG tabletIndicatio ns:Other migraine without status migrainosus, not intractable Take 1 tablet (25 mg) by mouth 1 (one) time if needed for migraine for up to 1 dose. May repeat dose once in 2 hours if no relief. Do not exceed 2 doses in 24 hours. 9 tablet 12/09/19 25 Active lisinopril 20 MG tabletIndicatio ns:Essential hypertension Take 1 tablet (20 mg) by mouth in the morning. 30 tablet 3 12/16/19 25 Active cholecalciferol VITAMIN D (Vitamin D-3) 50 MCG (2000 UT) tablet Take 1 tablet (50 mcg) by mouth in the morning. 90 tablet 01/07/20 25 Active docusate sodium (Colace) 100 MG capsule TAKE ONE CAPSULE TWICE DAILY IN THE MORNING AND AT BEDTIME NEEDED FOR CONSTIPATION 180 capsule 1 02/02/20 25 Active pregabalin (Lyrica) 150 MG capsuleIndicati ons:Chronic low back pain, unspecified back pain laterality, unspecified whether sciatica present TAKE ONE CAPSULE TWICE DAILY IN THE MORNING AND AT BEDTIME 60 capsule 02/05/20 25 Active docusate sodium (Colace) 100 MG capsule Take 1 tab po bid prn constipation 60 capsule 3 10/22/19 25 2024 Discontinued pregabalin (Lyrica) 150 MG capsuleIndicati ons:Chronic low back pain, unspecified back pain laterality, unspecified whether sciatica present TAKE ONE CAPSULE TWICE DAILY IN THE MORNING AND AT BEDTIME 60 capsule 01/07/20 25 2024 Discontinued Active Problems Problem Noted Date Diagnosed Date Olecranon bursitis, right elbow 03/29/2022 Asthma-chronic obstructive p ulmonary disease overlap syndrome (CMS/HCC) 12/19/2017 Chronic back pain 12/19/2017 Essential hypertension 12/19/2017 Menopausal symptom 12/19/2017 Migraine 12/19/2017 Mood disorder 12/19/2017 Seasonal allergies 12/19/2017 Tobacco dependence syndrome 12/19/2017 Encounters Date Type Department Care Team Description 02/04/2025 Refill [facility] [address] [place] [address] Zev Sanders MD Chronic low back pain, unspecified back pain laterality, unspecified whether sciatica present 01/31/2025 Refill [facility] [address] [place] [address] Wendy Andre MD 01/26/2025 Patient Outreach [facility] [address] [place] [address] Zev Sanders MD Care Coordination (C3/W Geovanna Dejesus f/u call_lvm) 01/14/2025 Telephone [facility] [address] [place] [address] Zev Sanders MD Chart Prep 01/12/2025 Patient Outreach [facility] [address] [place] [address] Zev Sanders MD Care Management ([facility]- f/u call #2 lvm) 01/06/2025 2:00 PM EDT Clinical Support [facility] [address] [place] [address] Humaira Lopez RN Essential hypertension 01/06/2025 Travel 01/06/2025 Telephone [facility] [address] [place] [address] Zev Sanders MD 01/06/2025 Refill [facility] [address] [place] [address] Darlene Gant MD 01/06/2025 Refill [facility] [address] [place], [place] [phone] Zev Sanders MD Chronic low back pain, unspecified back pain laterality, unspecified whether sciatica present 01/03/2025 Telephone [facility] [address] [place], [place] [phone] Zev Sanders MD order 12/30/2024 Patient Outreach [address] [address] Zev Sanders MD Care Coordination (C3/W Gonzalo Lima Mavern f/u_lvm ) 12/29/2024 11:15 AM EDT Telemedicine [facility] [address] [place], [place] [phone] Humaira Lopez RN Essential hypertension 12/29/2024 Travel 12/28/2024 Patient Outreach [address] [address] Zev Sanders MD Care Management (C3- f/u call lvm) 12/17/2024 Results Follow-Up [facility] [address] [place] [address] Isabelle Robbins RN Vascular US lower extremity venous duplex right 12/15/2024 Orders Only [facility] [address] [place], [place] [phone] Zev Sanders MD Essential hypertension (Primary Dx); Synovial cyst of right popliteal space 12/15/2024 Patient Outreach [address] [address] Zev Sanders MD 12/14/[address] [address] Zev Sanders MD Nurse Triage 12/10/[address] [address] Zev Sanders MD F/U CT scan 12/07/2024 3:45 PM EDT Office Visit [facility] [address] [place] [address] Zev Sanders MD Lower limb pain, anterior, right (Primary Dx); Essential hypertension; Asthma-chronic obstructive pulmonary disease overlap syndrome (CMS/HCC); Other migraine without status migrainosus, not intractable 12/07/2024 Travel 12/06/2024 Patient Outreach [address] [address] Zev Sanders MD Care Management ([facility]- f/u call) 12/06/2024 Telephone [facility] [address] [place] [address] Zev Sanders MD Chart Prep 12/02/2024 Refill [facility] [address] [place] [address] Zev Sanders MD Chronic low back pain, unspecified back pain laterality, unspecified whether sciatica present 11/30/2024 Telephone [facility] [address] [place] [address] Zev Sanders MD ER Follow-up 11/30/2024 Refill [facility] [address] [place] [address] Zev Sanders MD 11/26/2024 Patient Outreach [address] [address] Zev Sanders MD 11/26/2024 Patient Outreach [address] [address] Zev Sanders MD Transition Of Care (Tcm) (HDF unscheduled LVM ) 11/25/2024 Orders Only [facility] [address] [place] [address] Josh Leonard MD 11/24/2024 Orders Only [facility] [address] [place] [address] Josh Leonard MD 11/23/2024 Telephone [facility] [address] [place] [address] Zev Sanders MD No Show 11/23/2024 Patient Outreach [facility] [address] [place] [address] Zev Sanders MD 11/23/2024 Orders Only [facility] [address] [place] [address] Josh Leonard MD 11/22/2024 Patient Outreach [address] [address] Zev Sanders MD 11/22/2024 Patient Outreach [address] [address] Zev Sanders MD Care Coordination (C3/CHW GEOVANNA Dejesus f/u call) 11/22/2024 Patient Outreach [facility] [address] [place] [address] Zev Sanders MD Care Coordination (C3 f/u call) 11/11/2024 1:15 PM EDT Telemedicine [facility] [address] [place] [address] Martha Zimmer RN Chest pain, unspecified type [R07.9] 11/11/2024 Travel 11/11/2024 Patient Outreach [address] [address] Zev Sanders MD Care Management (C3- f/u call [facility]) from Last 3 Months Immunizations Immunization Administration [...] 12/07/2024 4:06 PM EDT Plan of Treatment Health Maintenance Due Date Last Done Comments CT Colonography 1970 Colonoscopy 1970 FIT 1970 HIV Screening 1970 Sigmoidoscopy 1970 Hepatitis A Vaccines (1 of 2 - Risk 2-dose series) 1989 Hepatitis B Vaccines (1 of 3 - 19+ 3-dose series) 1989 RSV Patients and Patients Aged 60 years or older (1 - Risk 50-74 years 1-dose series) 2020 Mammogram 10/18/2023 10/17/2021, 12/04/2017 FOBT 03/10/2024 03/10/2023 [...] 12/29, 11/12/2021 Pap Smear 01/15/2027 01/15/2022, 11/12/2021 Hepatitis C Screening Completed 11/12/2021 Pneumococcal Vaccine: [...] ECG 12-LEAD Routine 11/22/2024 10:18 AM EDT LAB COLOGUARD COLON CANCER SCREEN Routine [...] PM EDT Narrative 01/11/2025 5:05 PM EDT [place] [address] CT Scan Report Signed Patient: Deysi Pfeiffer MR#: [id number] : 1970 Acct:[id number] Age/Sex: 54 / F ADM Date: 01/11/25 Loc: HO.CT Attending Dr: Erickson Mathews MD Ordering Physician: Erickson Mathews MD Date of Service: 01/11/25 Procedure(s): CT chest wo IV con Accession Number(s): [id number] cc: Erickson Mathews MD; Zev Sanders MD Report Number: [id number]: Total DLP = 78.00 mGy-cm Reason for [...] 01/11/25 1701 DD/ 1556 TD/TT: 01/11/25 1624 System Controller: Procedure Note Donotuseinterpreter, Image - 01/11/[address] [address] [address] Scan Report Signed Patient: Deysi Pfeiffer [facility]#: [id number] : 1970Acct:[id number] Age/Sex: 54 / FADM Date: 01/11/25 Loc: HO.CT Attending Dr: Erickson Mathews MD Ordering Physician: Erickson Mathews MD Date of Service: 01/11/25 Procedure(s): CT chest wo IV con Accession Number(s): [id number] cc: Erickson Mathews MD; Zev Sanders MD Report Number: [id number]: Total DLP = 78.00 mGy-cm Reason for [...] 01/11/25 1701 DD/ 1556 TD/TT: 01/11/25 1624 System Controller: [facility] External Provider IMG CT PROCEDURES Final [...] IMG CT PROCEDURES Final R esult * Cologuard?? colon cancer screening (03/10/2023 2:14 PM EST) Cologuard Result Negative Negative 03/21/20 1:56 AM EST [facility] (CLIA #:[id number]) Comment: NEGATIVE TEST RESULT. A negative Cologuard [...] Luis Robles al, N Engl J Med 2014;370(14):4521-7829) The normal value (reference range) for this assay is negative. COLOGUARD RE-SCREENING RECOMMENDATION: Periodic colorectal cancer screening is an important part of preventive healthcare for asymptomatic individuals at average risk for colorectal cancer. Following a negative Cologuard result, the [place] [employer] and U.S. Multi-Society Task Force screening guidelines recommend a Cologuard re-screening interval of 3 years. References: [place] [employer] Guideline for Colorectal Cancer Screening: https://www.cancer.org/cancer/kvjgw-ggngzi-ywmhrl/uqswhlsqq-kzqnzsyiy-ostqltx/ac s-rec ommendations.html.; Edgar CRESPO, Antonio STONE, Salma SAN, Colorectal Cancer Screening: Recommendations for Physicians and Patients from the U.S. Multi-Society Task Force on Colorectal Cancer Screening , Am J Gastroenterology 2017; 112:5265-6250. TEST DESCRIPTION: Composite algorithmic analysis of stool [...] Luis Robles al, N Engl J Med 2014;370(14):6132-7265.) Cologuard may produce a false negative or false positive result (no colorectal cancer or precancerous polyp present at colonoscopy follow up). A negative Cologuard test result does not guarantee the absence of CRC or advanced adenoma (pre-cancer). The current Cologuard screening interval is every 3 years. ([place] [employer] and U.S. Multi-Society Task Force). Cologuard performance data in a 10,000 patient pivotal study using colonoscopy as the reference method can be accessed at the following location: www.exactlabs.com/results. Additional description of the Cologuard test process, warnings and precautions can be found at www.cologuard.com. Stool specimen (specimen) 03/10/2023 2:14 PM EST 03/12/2023 8:29 PM EST Zev Sanders MD LAB MOLECULAR DIAGNOSTICS O RDERABLES Final Result Performing Organization Address City/[facility]/ZIP Co de Phone Number [employer] (CLIA #:[id number]) [address] [place] [address], * HPV E6/E7 RFLX VANNESSA 16 18/45 (01/15/2022 10:19 AM EDT) Pathologist [facility] HPV mRNA E6/E7 rflx Not Detected Not Detected CONVERTED LEGACY LABS Comment: Methodology: Cytology Technologist-Mediated Amplification This assay detects E6/E7 viral messenger RNA (mRNA) from 14 high-risk HPV types (16,18,31,33,35,39,45,51,52,56,58,59,66,68). Cervical sources are required for HPV testing. If a vaginal source from a patient who has had a total hysterectomy with removal of cervix was submitted, please contact the testing laboratory for alternative testing options. For additional information, please refer to http://education.MyLorry/faq/FWP487l5 (This link if provided for information/ educational purposes only.) THIS TEST WAS PERFORMED AT: [facility] [address] [place] [address],[place] [address] ESPERANZA CRUZ MD 01/15/2022 10:1 9 AM EDT us Mario Alberto Morgan MD HISTORICAL/NON ORDERABLE LABS Fi nal Result Performing Organization Address City/[facility]/ZIP Co de Phone Number CONVERTED LEGACY LABS [...] a test for HCV RNA (test code 48236) is suggested. For additional information please refer to http://education.MyLorry/faq/BLX81k8 (This link is being provided for informational/ educational purposes only.) 11/12/2021 12:0 9 PM EDT us Zev Sanders MD HISTORICAL/NON ORDERABLE SOHA CERON Final Result [facility] [address] [place] [address], * (ABNORMAL) LIPID PANEL, STANDARD (11/12/2021 12:09 [...] LDL-C. Hilario MOON et al. JUANA. 2013;310(19): 3807-4270 (http://education.IQcard.Matchpoint Careers/faq/XVL923) Non-HDL Cholesterol 129 <130 mg/dL (calc) [facility] [...] [facility] [address] [place] [address], * Mammography Report 1 (10/17/2021 2:30 PM [...] Most Recently Relevant to Health Maintenance Insurance [employer] C3 Care Teams Forger Helper Relationship Specialty Start Date End Date Zev Sanders MD [address] [place] [address] PCP - General Internal Medicine 11/16/19 Gonzalo Lima 10/04/24
--- OUTSIDE RECORDS SUMMARY | 2025-02-10 16:34 | XMS_ITS ---
Author Organization [employer] Address [address] [place] [address] 7 [place] [address] Care Team Providers Care Customer Support Advisor Name Role Phone Zev Sanders MD Primary Care Provider [phone] Gonzalo Lima [facility] Status:Enrolled (Active) Start date:10/04/2024 Enrollment date:10/14/2024 Enrollment reason:ADT Feed Overview [facility]T-[facility] ED 10/01/24 shortness of breath Case Team Name Relationship Phone Gonzalo Lima(Responsible Staff) [phone] Continued Care and Services Coordination
--- OUTSIDE RECORDS SUMMARY | 2025-02-10 16:34 | XMS_ITS | Encounter Summary ---
Author Organization [facility] [employer] Address [address] [facility] 7t [place] [address] Care Team Providers Care Credit Risk Manager Name Role Phone Zev Sanders MD Primary Care Provider [phone] Michelle Quiroz RN Unavailable Unavailable Gonzalo Lima Unavailable Benedict Lima RN Unavailable [phone] Reason for Visit * Reason Onset Date Comments Med Refill 07/21/2023 Encounter Details Date Type Department Care Team (Late st Contact Info) Description 07/21/2023 Telephone [facility] [address] [place] [address] Zev Sanders MD [address] [place] [address] Med Refill Social History Tobacco Use Types [...] 150 MG capsule To be sent to: [facility] [place], [place] - [address] [place] [address] documented in this encounter Plan of Treatment Not on file documented as of this encounter Visit Diagnoses Not on filedocumented in this encounter Care Teams Credit Risk Manager Relationship Specialty Start Date End Date Zev Sanders MD [address] [place] [address] PCP - General Internal Medicine 11/16/19 Michelle Quiroz RN [address] [place] [address] Registered Nurse Family Medicine 10/04/24 12/06/24 Gonzalo Lima 10/04/24 Benedict Lima RN [address] [place] [address] Registered Nurse Family Medicine 12/06/24 01/12/25 documented as of this encounter
--- OUTSIDE RECORDS SUMMARY | 2025-02-10 16:34 | XMS_ITS | Encounter Summary ---
Author Organization [employer] Address [address] [facility] [address] [place] [address] Care Team Providers Care Shipping Order Clerk Name Role Phone Zev Sanders MD Primary Care Provider [phone] Michelle Quiroz RN Unavailable Unavailable Gonzalo Lima Unavailable Benedict Lima RN Unavailable [phone] Encounter Details Date Type Department Care Team (Late st Contact Info) Description 11/24/2024 Orders Only [facility] [address] [place] [address] Provider, MD Josh Social History Tobacco Use [...] documented as of this encounter Care Teams Shipping Order Clerk Relationship Specialty Start Date End Date Zev Sanders MD [address] [place] [address] PCP - General Internal Medicine 11/16/19 Michelle Quiroz RN [address] [place] [address] Registered Nurse Family Medicine 10/04/24 12/06/24 Gonzalo Lima 10/04/24 Benedict Lima RN [address] [place] [address] Registered Nurse Family Medicine 12/06/24 01/12/25 documented as of this encounter
--- OUTSIDE RECORDS SUMMARY | 2025-02-10 16:34 | XMS_ITS | Encounter Summary ---
Author Organization [employer] [facility] [employer] Address [address] [facility] 7t [place] [address] Care Team Providers Care Radio Board Operator Announcer Name Role Phone Zev Sanders MD Primary Care Provider [phone] Michelle Quiroz RN Unavailable Unavailable Gonzalo Lima Unavailable Benedict Lima RN Unavailable [phone] Encounter Details Date Type Department Care Team (Late st Contact Info) Description 11/23/2024 Orders Only [facility] [address] [place] [address] Provider, MD Jsoh Social History Tobacco Use Types Packs/Day Years [...] ECG 12 lead (11/22/2024 12:59 PM EDT) Result [facility] Historical Provider ECG ORDERABLES Final Res ult * ECG 12 lead (11/22/2024 12:58 PM EDT) Historical Provider ECG ORDERABLES Final Res ult * CT Head w/o Contrast (11/22/2024 10:55 AM EDT) Anatomical Region Laterality Modality Head, Neck Computed Tomogra phy Historical Provider IMG CT PROCEDURES Final R esult * CT CHEST ANGIO W AND WO IV CONTRAST (11/22/2024 10:47 AM EDT) Anatomical Region Laterality Modality Computed Tomogra phy Historical Provider IMG CT PROCEDURES Final R esult documented in this encounter Visit Diagnoses Not on filedocumented in this encounter Additional Health Concerns Assessment Noted Time PHQ-9 Depression Total Score: 2 10/15/19 25 11:49 AM EDT documented as of this encounter Care Teams Radio Board Operator Announcer Relationship Specialty Start Date End Date Zev Sanders MD [address] [place] [address] PCP - General Internal Medicine 11/16/19 Michelle Quiroz RN [address] [place] [address] Registered Nurse Family Medicine 10/04/24 12/06/24 Gonzalo Lima 10/04/24 Benedict Lima RN [address] [place] [address] Registered Nurse Family Medicine 12/06/24 01/12/25 documented as of this encounter
--- OUTSIDE RECORDS SUMMARY | 2025-02-10 16:35 | XMS_ITS | Encounter Summary ---
Author Organization [employer] Address [address] [place] [address] 7 [place] [address] Care Team Providers Care Post Acute Care Nurse Name Role Phone Zev Sanders MD Primary Care Provider [phone] Michelle Quiroz RN Unavailable Unavailable Gonzalo Lima Unavailable Benedict Lima RN Unavailable [phone] Encounter Details Date Type Department Care Team (Late st Contact Info) Description 10/22/2022 Orders Only [facility] [address] [place], [place] [phone] Zev Sanders MD [address] [place] [address] Gastroenteritis (Primary Dx) Social History Tobacco Use [...] colitis documented in this encounter Care Teams Post Acute Care Nurse Relationship Specialty Start Date End Date Zev Sanders MD [address] [place] [address] PCP - General Internal Medicine 11/16/19 Michelle Quiroz RN [address] [place] [address] Registered Nurse Family Medicine 10/04/24 12/06/24 Gonzalo Lima 10/04/24 Benedict Lima RN [address] [place] [address] Registered Nurse Family Medicine 12/06/24 01/12/25 documented as of this encounter
--- OUTSIDE RECORDS SUMMARY | 2025-02-10 16:35 | XMS_ITS | Clinical Summary ---
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 Hand Name Role Phone Zev Sanders MD Primary Care Provider [phone] Allergies Active Allergy Reactions Criticality Noted Date [...] Date Diagnosed Date Sepsis due to pneumonia ([facility] V24, [facility] V2 8) 11/22/2024 Encounters Date Type Department Care Team Description 02/02/2025 Telephone Pulmonology - [place] [address] [facility] [address] [place] [address] Tasha Sanon [place] 12/15/2024 2:15 PM EDT Ancillary Procedure [facility] - [facility] [address] [facility] [address] [place] [address] Lower limb pain, anterior, right 11/22/2024 1:28 PM EDT - 11/25/2024 1:45 PM EDT Hospital Encounter [facility] [address] [place] [address] Tai Olivier MD Bukalo, Nermina, MD Rasul, Yar M, MD Dyspnea, unspecified type (Primary Dx); Sepsis due to pneumonia ([facility] [place] [facility] Discharge Disposition: Home-Health Care Svc from Last 3 Months Medical History Medical History Date Comments UTI (urinary tract infection) Asthma COPD (chronic obstructive pulmonary disease) ([facility] V24, [facility]28) Anxiety GERD (gastroesophageal reflux disease) Hypertension [...] care for your loved ones. For example, childcare teacher or elderly care for an older adult? [...] Info) Description 02/22/2025 3:00 PM EST Appointment [facility] CT Scan [address] [place] [address] 03/01/2025 1:30 PM EST Consult Pulmonology - [place] [address] [facility] [address] [place] [phone] Mila Kay MD [address] [place] [address] 03/02/2025 9:45 AM EST Office Visit Thoracic Surgery - [place] [address] [facility] [address] [place] [address] Epi Hernández PA [address] [place] [phone] Health Maintenance Due Date Last Done Comments Hepatitis B Vaccines (1 of 3 - 19+ 3-dose series) 1989 Cervical Cancer Screening: Pap Smear 1991 RSV Immunization Adult Patients (1 - Risk 50-74 years 1-dose series) 2020 Breast Cancer Screening 10/18/2023 10/17/2021 Depression Screening 03/31/2024 Zoster Vaccines (2 of 2) 06/24/2024 04/29/2024 HIV Screening 11/22/2024 Hepatitis C Screening 11/22/2024 COVID-19 Vaccine ( - 2024- season) 2024 Influenza Vaccine (#1) 2024 , [...] the right leg. The vessel showed compressibility. Health Type Technician Details A fowler scale, color and doppler analysis ultrasound was performed. During the study longitudinal and transverse views were obtained. Pulsed wave doppler was performed. us Zev Sanders MD CV VASCULAR PROCEDURES Fi nal Result * ECG-Outside (11/26/2024) us Provider Onbase ECG ORDERABLES Final Result * ECG-Annotated (11/26/2024) us Provider Onbase MD ECG ORDERABLES Final Result * (ABNORMAL) CBC auto differential (11/25/2024 6:35 AM EDT) Only the most recent of4 resultswithin the time period is included. WBC 6.4 4.8 - 10.8 K/mcL LAB HEMETOLOGY METHOD 11/25/2024 7:07 AM [facility] RBC 3.80 3.80 - 4.80 M/mcL LAB HEMETOLOGY METHOD 11/25/2024 7:07 AM [facility] Hemoglobin 10.5(L) 11.5 - 16.0 g/dL LAB HEMETOLOGY METHOD 11/25/2024 7:07 AM [facility] Hematocrit 33.3(L) 35.0 - 47.0 % LAB HEMETOLOGY METHOD 11/25/2024 7:07 AM [facility] MCV 86.7 79.0 - 98.0 FL LAB HEMETOLOGY METHOD 11/25/2024 7:07 AM [facility] MCH 27.3 27.0 - 32.0 pcg LAB HEMETOLOGY METHOD 11/25/2024 7:07 AM [facility] MCHC 31.5(L) 32.0 - 37.0 g/dL LAB HEMETOLOGY METHOD 11/25/2024 7:07 AM [facility] RDW 14.9 11.0 - 15.0 % LAB HEMETOLOGY METHOD 11/25/2024 7:07 AM [facility] Platelets 213 130 - 400 K/mcL LAB HEMETOLOGY METHOD 11/25/2024 7:07 AM [facility] MPV 10.0 7.0 - 11.0 FL LAB HEMETOLOGY METHOD 11/25/2024 7:07 AM [facility] NRBC 0.0 <1.0 % LAB HEMETOLOGY METHOD 11/25/2024 7:07 AM [facility] NRBC Absolute 0.00 <0.10 K/mcL LAB HEMETOLOGY METHOD 11/25/2024 7:07 AM [facility] Neutrophils Relative 63.8 % LAB HEMETOLOGY METHOD 11/25/2024 7:07 AM [facility] Lymphocytes Relative 18.7 % LAB HEMETOLOGY METHOD 11/25/2024 7:07 AM [facility] Monocytes Relative 12.6 % LAB HEMETOLOGY METHOD 11/25/2024 7:07 AM [facility] Eosinophils Relative 3.7 % LAB HEMETOLOGY METHOD 11/25/2024 7:07 AM [facility] Basophils Relative 0.6 % LAB HEMETOLOGY METHOD 11/25/2024 7:07 AM [facility] Immature Granulocytes Relative 0.6 % LAB HEMETOLOGY METHOD 11/25/2024 7:07 AM [facility] Neutrophils Absolute 4.10 1.50 - 7.00 K/mcL LAB HEMETOLOGY METHOD 11/25/2024 7:07 AM [facility] Lymphocytes Absolute 1.20 1.00 - 5.00 K/mcL LAB HEMETOLOGY METHOD 11/25/2024 7:07 AM [facility] Monocytes Absolute 0.81 0.20 - 1.00 K/mcL LAB HEMETOLOGY METHOD 11/25/2024 7:07 AM [facility] Eosinophils Absolute 0.24 0.00 - 0.50 K/mcL LAB HEMETOLOGY METHOD 11/25/2024 7:07 AM [facility] Basophils Absolute 0.04 0.00 - 0.20 K/[facility] LAB HEMETOLOGY METHOD 11/25/2024 7:07 AM EDT [facility] Immature Granulocytes Absolute 0.04(H) 0.00 - 0.03 K/[facility] LAB HEMETOLOGY METHOD 11/25/2024 7:07 AM EDT [facility] Blood Venous blood specimen / Unknown Venipuncture / Unknown 11/25/2024 6:35 AM EDT 11/25/2024 6:43 AM EDT us Sahil Maria MD LAB BLOOD ORDERABLES Final Resul t Performing Organization Address City/[facility]/ZIP Co de Phone Number [facility] [address] [place] [address], [place] [phone] * SST tube (11/25/2024 6:31 AM EDT) Extra Tube Hold for add-ons. 11/25/2024 8:01 AM EDT [facility] Comment:Auto resulted. Blood Venous blood specimen / Unknown Venipuncture / Unknown 11/25/2024 6:31 AM EDT 11/25/2024 6:44 AM EDT us Sahil Maria MD LAB BLOOD ORDERABLES Final Resul t Performing Organization Address City/[facility]/ZIP Co de Phone Number [facility] [address] [place] [address], [place] [phone] * XR Chest 1 View (11/24/2024 11:55 [...] on the prior study has resolved. Code 64735 -------- FINAL REPORT -------- Dictated By: Bong Mcguire Dictated Date: 11/25/2024 09:34 ET Assigned Physician: Bong Mcguire Reviewed and Electronically Signed By: Bong Mcguire Signed Date: 11/25/2024 09:36 ET Workstation ID: [id number] Transcribed By: Self Edit Transcribed Date: 11/25/2024 [...] seen on the prior study hasresolved. Code 69016 -------- FINAL REPORT -------- Dictated By: Bong Mcguire Dictated Date: 11/25/2024 09:34 ET Assigned Physician: Bong Mcguire Reviewed and Electronically Signed By: Bong Mcguire Signed Date: 11/25/2024 09:36 ET Workstation ID: [id number] Transcribed By: Self Edit Transcribed Date: 11/25/2024 09:34 ET us Jose GODOY IMG XR PROCEDURES Final Result * (ABNORMAL) Venous blood gas (11/24/2024 11:42 PM EDT) pH, Lefty 7.27(L) 7.32 - 7.42 pH 11/24/2024 11:48 PM EDT [facility] pCO2, Lefty 44 41 - 51 mmHg 11/24/2024 11:48 PM EDT [facility] pO2, Lefty 61(H) 25 - 40 mmHg 11/24/2024 11:48 PM EDT [facility] HCO3, Venous 19.8(L) 22.0 - 26.0 mmol/L 11/24/2024 11:48 PM EDT [facility] O2 Sat, Lefty 94.5 % 11/24/2024 11:48 PM EDT [facility] Base Excess, Lefty -6.5(L) -2.0 - 2.0 mmol/L 11/24/2024 11:48 PM EDT [facility] Blood Venous blood specimen / Unknown Venipuncture / Unknown 11/24/2024 11:42 PM EDT 11/24/2024 11:45 PM EDT us Jose GODOY LAB BLOOD ORDERABLES Final Res ult [facility] [address] [place] [address], * MR Brain wo Contrast (11/24/2024 4:12 [...] Signed Date: 11/25/2024 08:59 ET Workstation ID: [id number] Transcribed By: Self Edit Transcribed Date: 11/25/2024 [...] There are a few scattered foci of [id number] in the supratentorial white matter which are [...] Signed Date: 11/25/2024 08:59 ET Workstation ID: [id number] Transcribed By: Self Edit Transcribed Date: 11/25/2024 08:55 ET Yari GODOY IMG MRI PROCEDURES Mary Jane l Result * (ABNORMAL) Basic metabolic panel (11/24/2024 6:12 AM EDT) Only the most recent of3 resultswithin the time period is included. Sodium 143 133 - 145 mmol/L LAB CHEMISTRY METHOD 11/24/2024 7:32 AM [facility] Potassium 3.8 3.5 - 5.5 mmol/L LAB CHEMISTRY METHOD 11/24/2024 7:32 AM [facility] Chloride 113(H) 96 - 110 mmol/L LAB CHEMISTRY METHOD 11/24/2024 7:32 AM [facility] CO2 17(L) 21 - 32 mmol/L LAB CHEMISTRY METHOD 11/24/2024 7:32 AM [facility] Anion Gap 13(H) 3 - 11 LAB CHEMISTRY METHOD 11/24/2024 7:32 AM [facility] Glucose 62(L) 70 - 100 mg/dL LAB CHEMISTRY METHOD 11/24/2024 7:32 AM [facility] BUN 9 5 - 25 mg/dL LAB CHEMISTRY METHOD 11/24/2024 7:32 AM EDT [facility] Creatinine 0.53 0.50 - 1.10 mg/dL LAB CHEMISTRY METHOD 11/24/2024 7:32 AM EDT [facility] eGFR 110 >=60 mL/min/1. 73m2 LAB CHEMISTRY METHOD 11/24/2024 7:32 AM EDT [facility] Comment:Calculation based on the Chronic Kidney Disease Epidemiology Collaboration (CKD-EPI) equation refit without adjustment for race. BUN/Creatinine Ratio 17.0 LAB CHEMISTRY METHOD 11/24/2024 7:32 AM EDT [facility] Calcium 9.0 8.5 - 10.5 mg/dL LAB CHEMISTRY METHOD 11/24/2024 7:32 AM EDT [facility] Blood Venous blood specimen / Unknown Venipuncture / Unknown 11/24/2024 6:12 AM EDT 11/24/2024 6:46 AM EDT us Sahil Maria MD LAB BLOOD ORDERABLES Final Resul t [facility] [address] [place] [address], * ECG 12 lead (11/23/2024 11:07 PM EDT) Only the most recent of5 resultswithin the time period is included. Ventricular Rate ECG 63 BPM GEMUSE Atrial Rate 63 BPM GEMUSE P-R Interval 150 ms GEMUSE QRS Duration 84 ms GEMUSE Q-T Interval 378 ms GEMUSE QTc 386 ms GEMUSE P Wave Sawyer 79 degrees GEMUSE R Sawyer 64 degrees GEMUSE T Sawyer 69 degrees GEMUSE ECG Interpretation Sinus rhythm with marked sinus arrhythmia Otherwise normal ECG When compared with ECG of 23-NOV-2024 23:07, (unconfirmed) WI interval has decreased Vent. rate has decreased BY 69 BPM Non-specific change in ST segment in Inferior leads ST no longer depressed in Anterior leads Nonspecific T wave abnormality no longer evident in Inferior leads T wave inversion no longer evident in Anterior leads SVT has resolved Confirmed by Kristen SANFORD JAMES ([id number]) on 11/24/2024 4:25:05 PM GEMUSE 11/23/2024 11:0 7 PM EDT 11/24/2024 4:25 PM EDT us Sahil Maria MD ECG ORDERABLES Final Result Performing Organization Address City/[facility]/ZIP Co de Phone Number GEMUSE * [place] top urine tube (11/23/2024 12:45 PM EDT) Extra Tube Hold for add-ons. 11/23/2024 2:01 PM EDT [facility] Comment:Auto resulted. Urine Urine specimen obtained by clean catch procedure / Unknown 11/23/2024 12:45 PM EDT 11/23/2024 12:56 PM EDT us Sahil Maria MD LAB URINE ORDERABLES Final Resul t Performing Organization Address City/[facility] Co de Phone Number [facility] [address] [place] [address], [place] [phone] * (ABNORMAL) Drug abuse screen 8a panel, urine (11/23/2024 12:45 PM EDT) Amphetamine Screen, Ur Negative Negative LAB CHEMISTRY METHOD 5 1:39 PM EDT [facility] Comment:Certain OTC medicati ons containing ephedrine, phenylephrine, pseudoephedrine and phenylpropanolamine can cause false positive results. Barbiturate Screen, Ur Negative Negative LAB CHEMISTRY METHOD 5 1:39 PM EDT [facility] Benzodiazepine Screen, Ur Negative Negative LAB CHEMISTRY METHOD 5 1:39 PM EDT [facility] Cocaine Screen, Ur Negative Negative LAB CHEMISTRY METHOD 5 1:39 PM EDT [facility] Opiate Screen, Ur Positive(A ) Negative LAB CHEMISTRY METHOD 1:39 PM EDT [facility] Cannabinoid (THC) Screen, Ur Negative Negative LAB CHEMISTRY METHOD 1:39 PM EDT [facility] Comment:Specimens from patie nts taking pantoprazole sodium (Protonix) have been shown to produce false positive results. Oxycodone Screen, Ur Positive(A ) Negative LAB CHEMISTRY METHOD 5 1:39 PM EDT [facility] Fentanyl, Ur Negative Negative LAB CHEMISTRY METHOD 1:39 PM EDT [facility] Urine Urine specimen obtained by clean catch procedure / Unknown Non-blood Collection / Unknown 11/23/2024 12:45 PM EDT 11/23/2024 12:54 PM EDT Narrative [facility] - 11/23/2024 1:39 PM EDT [...] MD LAB URINE ORDERABLES Final Resul t [facility] [address] [place] [address], * (ABNORMAL) TRANSTHORACIC ECHOCARDIOGRAM (TTE) COMPLETE (11/23/2024 12:25 PM EDT) Left Atrium Minor Sawyer 4.3 cm CV PACS Left Atrium Major Sawyer 4.9 cm CV PACS LA Area Sys [...] Area 3.5 cm2 CV PACS MV Deceleration Ada 4.1 m/s2 CV PACS E Wave Deceleration [...] K/mcL LAB HEMETOLOGY METHOD 11/23/2024 7:26 AM [facility] RBC 3.80 3.80 - 4.80 M/mcL LAB HEMETOLOGY METHOD 11/23/2024 7:26 AM [facility] Hemoglobin 10.6(L) 11.5 - 16.0 g/dL LAB HEMETOLOGY METHOD 11/23/2024 7:26 AM [facility] Hematocrit 35.4 35.0 - 47.0 % LAB HEMETOLOGY METHOD 11/23/2024 7:26 AM [facility] MCV 93.2 79.0 - 98.0 FL LAB HEMETOLOGY METHOD 11/23/2024 7:26 AM [facility] MCH 27.9 27.0 - 32.0 pcg LAB HEMETOLOGY METHOD 11/23/2024 7:26 AM EDT [facility] MCHC 29.9(L) 32.0 - 37.0 g/dL LAB HEMETOLOGY METHOD 11/23/2024 7:26 AM EDT [facility] RDW 15.2(H) 11.0 - 15.0 % LAB HEMETOLOGY METHOD 11/23/2024 7:26 AM EDT [facility] Platelets 190 130 - 400 K/mcL LAB HEMETOLOGY METHOD 11/23/2024 7:26 AM EDT [facility] MPV 10.6 7.0 - 11.0 FL LAB HEMETOLOGY METHOD 11/23/2024 7:26 AM EDT [facility] NRBC 0.0 <1.0 % LAB HEMETOLOGY METHOD 11/23/2024 7:26 AM EDT [facility] NRBC Absolute 0.00 <0.10 K/mcL LAB HEMETOLOGY METHOD 11/23/2024 7:26 AM EDT [facility] Blood Venous blood specimen / Unknown Venipuncture / Unknown 11/23/2024 6:35 AM EDT 11/23/2024 7:05 AM EDT us Tahmina Villegas MD LAB BLOOD ORDERABLES Final Res ult [facility] [address] [place] [address], * Magnesium (11/23/2024 6:35 AM EDT) Only the most recent of3 resultswithin the time period is included. Magnesium 2.1 1.9 - 2.6 mg/dL LAB CHEMISTRY METHOD 11/23/2024 7:53 AM EDT [facility] Blood Venous blood specimen / Unknown Venipuncture / Unknown 11/23/2024 6:35 AM EDT 11/23/2024 7:05 AM EDT us Yari GODOY LAB BLOOD ORDERABLES Fi nal Result [facility] [address] [place] [address], [place] [phone] * CT Angio Chest wo and/or w [...] LAB CHEMISTRY METHOD 11/23/2024 12:58 AM EDT [facility] Blood Venous blood specimen / Unknown Venipuncture / Unknown 11/22/2024 11:58 PM EDT 11/23/2024 12:00 AM EDT us Emily GODOY LAB BLOOD ORDERABLES Final Re sult Performing Organization Address [facility] Co de Phone Number [facility] [address] [place] [address], [place] [phone] * Troponin I high sensitivity (11/22/2024 11:55 PM EDT) [facility] High Sensitivity Troponin I 8 <=54 ng/L LAB CHEMISTRY METHOD 11/23/2024 12:31 AM EDT [facility] Blood Venous blood specimen / Unknown Venipuncture / Unknown 11/22/2024 11:55 PM EDT 11/22/2024 11:59 PM EDT Narrative [facility] - 11/23/2024 12:31 AM EDT High levels of biotin in samples may falsely decrease hsTroponin values. Use caution when interpreting hsTroponin results in patients taking biotin who exhibit renal impairment (eGFR <60) or in patients taking more than 20 mg/day of biotin. Emily GODOY LAB BLOOD ORDERABLES Final Re sult Performing Organization Address [facility] Co de Phone Number [facility] [address] [place] [address], [place] [phone] * Lactate (11/22/2024 11:54 PM EDT) [facility] Lactate 0.5 0.4 - 2.0 mmol/L LAB CHEMISTRY METHOD 11/23/2024 12:31 AM EDT [facility] Blood Venous blood specimen / Unknown Venipuncture / Unknown 11/22/2024 11:54 PM EDT 11/23/2024 12:00 AM EDT Emily GODOY LAB BLOOD ORDERABLES Final Re sult Performing Organization Address City/[facility]/ZIP Co de Phone Number [facility] [address] [place] [address], [place] [phone] * POCT Glucose, blood (11/22/2024 11:42 PM EDT) Glucose POCT 97 70 - 100 mg/dL 11/22/2024 11:43 PM EDT [facility] Blood Capillary blood specimen / Unknown 11/22/2024 11:42 PM EDT 11/22/2024 11:44 PM EDT Tahmina Villegas MD LAB POINT OF CARE TE ST DOCKED DEVICE UNSOLICITED RESULTS Final Result Performing Organization Address [facility]/ZIP Co de Phone Number [facility] [address] [place] [address], [place] [phone] * (ABNORMAL) D-Dimer (11/22/2024 9:58 PM EDT) D-Dimer, Quant (D-DU) 781(H) <=230 ng/mL DDU LAB COAGULATION METHOD 11/22/2024 10:35 PM EDT [facility] Blood Venous blood specimen / Unknown Venipuncture / Unknown 11/22/2024 9:58 PM EDT 11/22/2024 10:19 PM EDT Narrative [facility] - 11/22/2024 10:35 PM EDT D-Dimer <230 ng/mL (D-Dimer units) is the threshold for exclusion of DVT/PE. D-Dimer may be elevated in: Critically ill, severely infected, trauma patients, DIC, acute CVA, acute NC, unstable angina, AF, old age, , and smoking. D-Dimer may be decreased with: Initiation of heparin therapy and oral anticoagulants. us Yari GODOY LAB BLOOD ORDERABLES Fi nal Result Performing Organization Address City/[facility]/ZIP Co de Phone Number [facility] [address] [place] [address], [place] [phone] * Blood culture (11/22/2024 2:18 PM EDT) Only the most recent of2 resultswithin the time period is included. Culture, Blood No growth at 5 days LAB MICROBIOLOGY METHOD 11/27/2024 3:01 PM EDT [facility] Blood Venous blood specimen / Unknown Venipuncture / Unknown 11/22/2024 2:18 PM EDT 11/22/2024 2:23 PM EDT us Tai Olivier MD LAB MICROBIOLOGY - GENERAL ORDERABLES Final Result [facility] [address] [place] [address], [place] [phone] * (ABNORMAL) Urinalysis with reflex microscopic and culture (11/22/2024 2:17 PM EDT) [facility] Specific [place] Urine 1.014 1.003 - 1.030 LAB URINALYSIS - AUTOMATED METHOD [facility] pH, Urine 5.5 5.0 - 8.0 pH LAB URINALYSIS - AUTOMATED METHOD 11/22/2024 2:53 PM [facility] Leukocytes, Urine Trace(A) Negative LAB URINALYSIS - AUTOMATED METHOD 11/22/2024 2:53 PM [facility] Nitrite, Urine Negative Negative LAB URINALYSIS - AUTOMATED METHOD 11/22/2024 2:53 PM T [facility] Protein, Urine 30(A) <=Trace mg/dL LAB URINALYSIS - AUTOMATED METHOD 11/22/2024 2:53 PM EDT [facility] Glucose, Urine Negative Negative mg/dL LAB URINALYSIS - AUTOMATED METHOD 11/22/2024 2:53 PM [facility] Ketones, Urine Trace(A) Negative mg/dL LAB URINALYSIS - AUTOMATED METHOD 11/22[facility]2024 [facility] Urobilinogen , Urine 1.0 0.2 - 1.0 mg/dL LAB URINALYSIS - AUTOMATED METHOD 11/22/2024 2:53 PM [facility] Bilirubin, Urine Negative Negative LAB URINALYSIS - AUTOMATED METHOD 11/22/2024 2:53 PM [facility] Blood, Urine Negative Negative LAB URINALYSIS - AUTOMATED METHOD 11/22/2024 2:53 PM [facility] RBC, Urine 4.3(H) 0 - 4 /HPF LAB URINALYSIS - AUTOMATED METHOD 11/22/2024 2:53 PM [facility] WBC, Urine 17.7(H) 0 - 4 /HPF LAB URINALYSIS - AUTOMATED METHOD 11/22/2024 2:53 PM [facility] Squamous Epithelial, Urine >100(H) 0 - 60 /LPF LAB URINALYSIS - AUTOMATED METHOD 11/22/2024 2:53 PM [facility] Bacteria, Urine Negative Negative /HPF LAB URINALYSIS - AUTOMATED METHOD 11/22/2024 2:53 PM [facility] Hyaline Casts, Urine 3.0 0 - 3 /LPF LAB URINALYSIS - AUTOMATED METHOD 11/22/2024 2:53 PM [facility] Other Casts, Urine Rare Coarse Granular casts. /LPF 11/22/2024 2:53 PM T [facility] Urine Urine specimen obtained by clean catch procedure / Unknown Non-blood Collection / Unknown 11/22/2024 2:17 PM EDT 11/22/2024 2:25 PM EDT us Tai Olivier MD LAB URINE ORDERABLES Final Result [facility] [address] [place] [address], * [place] urine culture tube (11/22/2024 2:17 PM EDT) [facility] Extra Tube Hold for add-ons. 11/22/2024 4:01 PM EDT [facility] Comment:Auto resulted. Urine Urine specimen obtained by clean catch procedure / Unknown Non-blood Collection / Unknown 11/22/2024 2:17 PM EDT 11/22/2024 2:26 PM EDT Tai Olivier MD LAB URINE ORDERABLES Final Result Performing Organization Address City/[facility]/ZIP Co de Phone Number [facility] [address] [place] [address], [place] [phone] * Culture urine (11/22/2024 2:17 PM EDT) [facility] Culture, Urine 10,000-49,000 CFU/mL Mixed bacterial morphotypes present suggestive of possible contamination during collection. Suggest appropriate recollection if clinically indicated. 11/23/2024 9:32 AM EDT [facility] Urine Urine specimen obtained by clean catch procedure / Unknown Non-blood Collection / Unknown 11/22/2024 2:17 PM EDT 11/22/2024 2:53 PM EDT Tai Olivier MD LAB MICROBIOLOGY - GENERAL ORDERABLES Final Result Performing Organization Address City/[facility]/ZIP Co de Phone Number [facility] [address] [place] [address], [place] [phone] * Respiratory virus panel molecular study (11/22/2024 2:07 PM EDT) [facility] Adenovirus Detection by PCR Not Detected Not Detected LAB MICROBIOLOGY METHOD 11/22/2024 3:19 PM EDT [facility] Influenza A PCR Not Detected Not Detected LAB MICROBIOLOGY METHOD 11/22/2024 3:19 PM EDT [facility] Influenza B PCR Not Detected Not Detected LAB MICROBIOLOGY METHOD 11/22/2024 3:19 PM EDT [facility] Coronavirus 229E Not Detected Not Detected LAB MICROBIOLOGY METHOD 11/22/2024 3:19 PM EDT [facility] Coronavirus HKU1 Not Detected Not Detected LAB MICROBIOLOGY METHOD 11/22/2024 3:19 PM EDT [facility] Coronavirus OC43 Not Detected Not Detected LAB MICROBIOLOGY METHOD 11/22/2024 3:19 PM EDT [facility] Coronavirus NL63 Not Detected Not Detected LAB MICROBIOLOGY METHOD 11/22/2024 3:19 PM EDT [facility] Parainfluenza Virus 1 Not Detected Not Detected LAB MICROBIOLOGY METHOD 11/22/2024 3:19 PM EDT [facility] [facility] Parainfluenza Virus 2 Not Detected Not Detected LAB MICROBIOLOGY METHOD 11/22/2024 3:19 PM EDT [facility] Parainfluenza Virus 3 Not Detected Not Detected LAB MICROBIOLOGY METHOD 11/22/2024 3:19 PM EDT [facility] Parainfluenza Virus 4 Not Detected Not Detected LAB MICROBIOLOGY METHOD 11/22/2024 3:19 PM EDT [facility] RSV PCR Not Detected Not Detected LAB MICROBIOLOGY METHOD 11/22/2024 3:19 PM EDT [facility] Human Metapneumovirus A and B Not Detected Not Detected LAB MICROBIOLOGY METHOD 11/22/2024 3:19 PM EDT [facility] Rhinovirus/Entero virus Not Detected Not Detected LAB MICROBIOLOGY METHOD 11/22/2024 3:19 PM EDT [facility] Bordetella pertussis Not Detected Not Detected LAB MICROBIOLOGY METHOD 11/22/2024 3:19 PM EDT [facility] Bordetella parapertussis Not Detected Not Detected LAB MICROBIOLOGY METHOD 11/22/2024 3:19 PM EDT [facility] Mycoplasma pneumo by PCR Not Detected Not Detected LAB MICROBIOLOGY METHOD 11/22/2024 3:19 PM EDT [facility] Chlamydia pneumoniae Not Detected Not Detected LAB MICROBIOLOGY METHOD 11/22/2024 3:19 PM EDT [facility] SARS COV-2 Not Detected Not Detected LAB MICROBIOLOGY METHOD 11/22/2024 3:19 PM EDT [facility] Swab Both anterior nares / Unknown Non-blood Collection / Unknown 11/22/2024 2:07 PM EDT 11/22/2024 2:24 PM EDT Narrative [facility] - 11/22/2024 3:19 PM EDT Testing was performed using the [employer] Respiratory Pathogen PCR Assay. All results must [...] LAB MICROBIOLOGY - GENERAL ORDERABLES Final Result [facility] [address] [place] [address], [place] [phone] * Lactate, with Reflex (11/22/2024 1:52 PM EDT) LACTIC ACID 0.6 0.4 - 2.0 mmol/L LAB CHEMISTRY METHOD 11/22/2024 2:53 PM EDT [facility] Blood Venous blood specimen / Unknown Venipuncture / Unknown 11/22/2024 1:52 PM EDT 11/22/2024 2:02 PM EDT Tai Olivier MD LAB BLOOD ORDERABLES Final Result Performing Organization Address City/[facility]/ZIP Co de Phone Number [facility] [address] [place], [place] [address] [phone] * (ABNORMAL) Comprehensive Metabolic Panel (CMP) (11/22/2024 1:52 PM EDT) [facility] Signature Sodium 137 133 - 145 mmol/L LAB CHEMISTRY METHOD 11/22/2024 2:46 PM [facility] Potassium 3.6 3.5 - 5.5 mmol/L LAB CHEMISTRY METHOD 11/22/2024 2:46 PM [facility] Chloride 106 96 - 110 mmol/L LAB CHEMISTRY METHOD 11/22/2024 2:46 PM [facility] CO2 27 21 - 32 mmol/L LAB CHEMISTRY METHOD 11/22/2024 2:46 PM [facility] Anion Gap 4 3 - 11 LAB CHEMISTRY METHOD 11/22/2024 2:46 PM [facility] Glucose 89 70 - 100 mg/dL LAB CHEMISTRY METHOD 11/22/2024 2:46 PM [facility] BUN 26(H) 5 - 25 mg/dL LAB CHEMISTRY METHOD 11/22/2024 2:46 PM [facility] Creatinine 1.78(H) 0.50 - 1.10 mg/dL LAB CHEMISTRY METHOD 11/22/2024 2:46 PM [facility] eGFR 34(L) >=60 mL/min/1. 73m2 LAB CHEMISTRY METHOD 11/22/2024 2:46 PM [facility] Comment:Calculation based on the Chronic Kidney Disease Epidemiology Collaboration (CKD-EPI) equation refit without adjustment for race. BUN/Creatinine Ratio 14.6 LAB CHEMISTRY METHOD 11/22/2024 2:46 PM [facility] Calcium 7.9(L) 8.5 - 10.5 mg/dL LAB CHEMISTRY METHOD 11/22/2024 2:46 PM [facility] AST (SGOT) 13 10 - 42 unit/L LAB CHEMISTRY METHOD 11/22/2024 2:46 PM EDT [facility] ALT (SGPT) 7(L) 10 - 60 unit/L LAB CHEMISTRY METHOD 11/22/2024 2:46 PM EDT [facility] Alkaline Phosphatase 77 42 - 121 unit/L LAB CHEMISTRY METHOD 11/22/2024 2:46 PM EDT [facility] Total Protein 5.2(L) 6.0 - 8.0 g/dL LAB CHEMISTRY METHOD 11/22/2024 2:46 PM EDT [facility] Albumin 2.5(L) 3.2 - 5.0 g/dL LAB CHEMISTRY METHOD 11/22/2024 2:46 PM EDT [facility] Total Bilirubin 0.6 0.0 - 1.4 mg/dL LAB CHEMISTRY METHOD 11/22/2024 2:46 PM EDT [facility] Blood Venous blood specimen / Unknown Venipuncture / Unknown 11/22/2024 1:52 PM EDT 11/22/2024 2:07 PM EDT us Tai Olivier MD LAB BLOOD ORDERABLES Final Result [facility] [address] [place] [address], from Last 3 Months Insurance [place] - [place] Advance Directives * Full Code - Default [...] currently active code status orders. Care Teams Cushion Maker Hand Relationship Specialty Start Date End Date Zev Sanders MD [address] [place] [address] PCP - General Internal Medicine 10/27/19
--- OUTSIDE RECORDS SUMMARY | 2025-02-10 16:35 | XMS_ITS | Encounter Summary ---
Author Organization [employer] Address [address] [place] [address] 7 [place] [address] Care Team Providers Care Garden Center Manager Name Role Phone Zev Sanders MD Primary Care Provider [phone] Michelle Quiroz RN Unavailable Unavailable Gonzalo Lima Unavailable Benedict [place] RN Unavailable [phone] Reason for Visit * Reason Onset Date Comments Appointment Request 11/01/2022 Encounter Details Date Type Department Care Team ([facility] st Contact Info) Description 11/01/2022 Telephone [facility] MED [facility] [address] [place], [place] [phone] Zev Sanders MD [address] [place], [place] [phone] Appointment Request Social History Tobacco Use Types [...] PE on 10/24/2022. Please contact pt at [phone] documented in this encounter Plan of Treatment Not on file documented as of this encounter Visit Diagnoses Not on filedocumented in this encounter Care Teams Garden Center Manager Relationship Specialty Start Date End Date Zev Sanders MD [address] [place] [address] PCP - General Internal Medicine 11/16/19 Michelle Quiroz RN [address] [place] [address] Registered Nurse Family Medicine 10/04/24 12/06/24 Gonzalo Lima 10/04/24 Benedict L[place] RN [address] [place] [address] Registered Nurse Family Medicine 12/06/24 01/12/25 documented as of this encounter
--- OUTSIDE RECORDS SUMMARY | 2025-02-10 16:35 | XMS_ITS | Encounter Summary ---
Author Organization [employer] Address [address] [place] [address] [address] [place] [address] Care Team Providers Care Car Rental Sales Assistant Name Role Phone Zev Sanders MD Primary Care Provider [phone] Michelle Quiroz RN Unavailable Unavailable Gonzalo Lima Unavailable Benedict [place] RN Unavailable [phone] Encounter Details Date Type Department Care Team (Late st Contact Info) Description 04/12/2022 Orders Only [facility] [place] [facility] [address] [place] [address] Zev Sanders MD [address] [place] [address] Social History Tobacco Use Types Packs/Day Years [...] (10/21/2022 2:13 PM EDT) Slide Review VERIFIED [facility] 10/21/2022 2:13 PM EDT 10/21/2022 5:23 PM EDT us Zev Sanders MD LAB BLOOD ORDERABLES Final Result [facility] [address] [place] [phone] * (ABNORMAL) VENOUS BLOOD GAS (09/04/2022 1:17 PM EDT) VBG pH 7.37 7.32 - 7.43 [facility] Comment:METER #: [id number] additional_comment: Cb murpe VBG PCO2 57 mmHg [facility] Comment:METER #: [id number] additional_comment: Cb murpe VBG PO2 48 mmHg [facility] Comment:METER #: [id number] additional_comment: Cb murpe VBG Base Excess 6.2 mmol/L [facility] Comment:METER #: [id number] additional_comment: Cb murpe VBG HCO3 33(H) 22 - 26 mmol/L [facility] Comment:METER #: [id number] additional_comment: Cb murpe O2 Sat, Lefty 77.0 % [facility] Comment:METER #: [id number] additional_comment: Cb murtere 09/04/2022 1:17 PM EDT 09/04/2022 1:23 PM EDT [facility] External Provider LAB BLO OD ORDERABLES Final Result Performing Organization Address [facility] de Phone Number [facility] [address] [place] [address] [phone] * D Dimer High Sensitivity (09/04/2022 1:10 PM EDT) Pathologist [facility] D Dimer High Sensitivity <150 NG/ML [facility] Comment:D-DIMER HS REFERENCE RANGENote: Our assay reports D-Dimer Units (D- DU).The cut-off value for venous thromboembolic (VTE) disease is230 ng/mL. This value has a very high negative predictivevalue when the patient has a low to moderate clinicalprobability of VTE.The upper limit of normal is 243 ng/mL. 09/04/2022 1:10 PM EDT 09/04/2022 1:18 PM EDT [facility] External Provider LAB BLO OD ORDERABLES Final Result Performing Organization Address [facility] de Phone Number [facility] [address] [place] [address] [phone] * B Type Natriuretic Peptide (BNP) (09/04/2022 11:26 AM EDT) Pathologist [facility] B Type Natriuretic Peptide 19 <100 pg/mL [facility] Comment:For those patients w ho are being treated with Natrecor(nesiritide, recombinant BNP), BNP testing should beperformed at least two hours post treatment in order toensure that only endogenous levels of BNP are detected. 09/04/2022 11:2 6 AM EDT 09/04/2022 1:27 PM EDT us [facility] External Provider LAB BLO OD ORDERABLES Final Result [facility] [address] [place] [address] [phone] * (ABNORMAL) Comprehensive Metabolic Panel (09/04/2022 11:26 AM EDT) Sodium 142 135 - 145 mmol/L [facility] Potassium 4.2 3.3 - 5.1 mmol/L [facility] Chloride 102 96 - 108 mmol/L [facility] Carbon Dioxide 34(H) 22 - 29 mmol/L [facility] Anion Gap 10(L) 12 - 20 [facility] Urea Nitrogen (BUN) 15 9 - 16 mg/dL [facility] Creatinine, Serum 0.68 0.5 - 1.4 mg/dL [facility] Creatinine Clr Calc Pharmacy 74.8 [facility] Comment:Provided height and weight: 162.56 cm,49 kg.eGFR (calculated from the MDRD study equation) and eCrCl(calculated from the Cockcroft-Gault equation) are based ondifferent parameters and may not yield comparable results.If eCrCl result is absurd, please check patient'sheight/weight. Estimated Glomerular Filt Rate >60 [facility] Comment:NOTE: For -Am erican individuals, multiply the result by 1.210.Chronic Kidney Disease: Estimated GFR < 60 mL/min/[id number] Kidney Disease: Estimated GFR < 15 mL/min/1.73m2 Glucose 112 60 - 115 mg/dL [facility] Calcium 9.4 8.4 - 10.2 mg/dL [facility] Bilirubin, Total 0.7 0.0 - 1.0 mg/dL [facility] Aspartate Amino Transferase 21 5 - 31 U/L [facility] Alanine Aminotransferase 17 0 - 31 U/L [facility] Total Protein 6.7 6.5 - 8.0 g/dL [facility] Albumin Level 4.1 3.5 - 5.0 g/dL [facility] Alkaline Phosphatase 73 39 - 117 U/L [facility] 09/04/2022 11:2 6 AM EDT 09/04/2022 11:33 AM EDT [facility] External Provider LAB BLO OD ORDERABLES Final Result [facility] [address] [place] [address] [phone] * COVID-19 ID NOW (Doctolib) (09/04/2022 11:26 AM EDT) IDNOW SERIAL# [id number] [facility] COVID-19 TEST Negative Negative [facility] COVID-19 NOTE See Note [facility] Comment: Results are for the identification of SARS-CoV2 RNA. TheSARS-CoV2 RNA is generally detectable in respiratory samplesduring the acute phase of infection. Positive results areindicative of the presence of SARS-CoV-2 RNA; clinicalcorrelation with patient history and other diagnosticinformation is necessary to determine patient infectionstatus. Positive results do not rule out bacterial infectionor co- infection with other viruses.Testing facilities within the [facility] and [facility] are required to report all positive [...] use by authorized laboratories.Testing performed on the [email or web address] ID NOW utilizing NAAT. 09/04/2022 11:2 6 AM EDT 09/04/2022 11:33 AM EDT us [facility] Exter nal Provider LAB MOLECULAR DIAGNOSTICS ORDERABLES Final Result [facility] [address] [place] [address] [phone] * (ABNORMAL) CBC auto differential (09/04/2022 11:26 AM EDT) White Blood Count 10.4 4.8 - 10.8 X10*3/uL [facility] Red Blood Count 5.42 4.20 - 5.50 X10*6/uL [facility] Hemoglobin 16.0 12.0 - 16.0 g/dl [facility] Hematocrit 49.3(H) 37.0 - 47.0 % [facility] Mean Corpuscular Volume 91.0 80.0 - 98.0 fL [facility] Mean Corpuscular Hemoglobin 29.5 27.0 - 33.0 pg [facility] Mean Corpuscular HGB Conc 32.5 31.0 - 35.0 g/dl [facility] Red Cell Distribution Width 14.6 11.0 - 16.0 % [facility] Platelet Count 238 160 - 400 X10*3/uL [facility] Mean Platelet Volume 9.5 9.4 - 12.3 fL [facility] Neutrophils Percent Auto 51.2 45 - 73 % [facility] Imm Gran Pct Auto 0.3 0.0 - 0.4 % [facility] Lymphocytes Percent Auto 38.4 20 - 40 % [facility] Monocytes Percent Auto 8.1 2 - 11 % [facility] Eosinophils Percent Auto 1.5 0 - 4 % [facility] Basophils Percent Auto 0.5 0 - 2 % [facility] NRBC Pct Auto 0.0 0.0 - 0.2 /100WBC [facility] Neutrophils Absolute Auto 5.4 2.0 - 8.3 x10*3/uL [facility] Imm Gran Abs Auto 0.03 0.00 - 0.03 X10*3/uL [facility] Lymphocytes Absolute Auto 4.0 1.2 - 4.9 X10*3/uL [facility] Monocytes Absolute Auto 0.8 0.1 - 1.2 X10*3/uL [facility] Eosinophils Absolute Auto 0.2 0.0 - 0.4 X10*3/uL [facility] Basophils Absolute Auto 0.1 0.0 - 0.2 X10*3/uL [facility] NRBC Abs Auto 0.000 0.0 - 0.012 X10*3/uL [facility] 09/04/2022 11:2 6 AM EDT 09/04/2022 11:33 AM EDT us [facility] External Provider LAB BLO OD ORDERABLES Final Result Performing Organization Address City/State/[facility] Co de Phone Number [facility] [address] [place] [address] [phone] documented in this encounter Visit Diagnoses Not on filedocumented in this encounter Care Teams Car Rental Sales Assistant Relationship Specialty Start Date End Date Zev Sanders MD [address] [place] [address] PCP - General Internal Medicine 11/16/19 Michelle Quiroz RN [address] [place] [address] Registered Nurse Family Medicine 10/04/24 12/06/24 Gonzalo iLma 10/04/24 Benedict Lima RN [address] [place] [address] Registered Nurse Family Medicine 12/06/24 01/12/25 documented as of this encounter
--- OUTSIDE RECORDS SUMMARY | 2025-02-10 16:35 | XMS_ITS | Encounter Summary ---
Author Organization [employer] Address [address] [place] [address] 7 [place] [address] Care Team Providers Care Child Life Specialist Name Role Phone Zev Sanders MD Primary Care Provider [phone] Michelle Quiroz RN Unavailable Unavailable Gonzalo Lima Unavailable Benedict Lima RN Unavailable [phone] Reason for Visit * Reason Comments Med Refill Encounter Details Date Type Department Care Team (Late st Contact Info) Description 11/05/2022 Refill [facility] [address] [place], [place] [phone] Zev Sanders MD [address] [place], [place] [phone] Chronic low back pain, unspecified back pain [...] present documented in this encounter Care Teams Child Life Specialist Relationship Specialty Start Date End Date Zev Sanders MD [address] [place] [address] PCP - General Internal Medicine 11/16/19 Michelle Quiroz RN [address] [place] [address] Registered Nurse Family Medicine 10/04/24 12/06/24 Gonzalo Lima 10/04/24 Benedict Lima RN [address] [place] [address] Registered Nurse Family Medicine 12/06/24 01/12/25 documented as of this encounter
== END 2025-02-10 13:51 | disposition home or self-care (01) ==
LOC: HO.PMC 13:15
PROVIDERS: PCP Internal Medicine; Visit Provider Nurse Practitioner Family
DX: Z79.891 Long term (current) use of opiate analgesic (principal); M54.2 Cervicalgia; M51.369 Other intervertebral disc degeneration, lumbar region without mention of lumbar back pain or lower extremity pain; M47.816 Spondylosis without myelopathy or radiculopathy, lumbar region; G89.4 Chronic pain syndrome
CPT/HCPCS: 99214

== ENCOUNTER → 2025-02-10 13:14 | Outpatient (BNVA) | payer MEDICAID, SELFPAY | PROVIDERS: PCP Internal Medicine; Visit Provider Nurse Practitioner Family | DX: M47.816 Spondylosis without myelopathy or radiculopathy, lumbar region (principal); M54.2 Cervicalgia; M46.1 Sacroiliitis, not elsewhere classified; M51.369 Other intervertebral disc degeneration, lumbar region without mention of lumbar back pain or lower extremity pain; G89.4 Chronic pain syndrome; Z51.81 Encounter for therapeutic drug level monitoring; Z79.891 Long term (current) use of opiate analgesic | CPT/HCPCS: 99212 ==

== ENCOUNTER 2025-03-15 14:42 | Outpatient (AMB) | payer MEDICAID, SELFPAY ==
--- NOTE | 2025-03-15 14:45 | MHC.OFFVIS ---
Vital Signs 03/15/25 14:55 Height 5 ft 4 in Weight 128 lb 8 oz BMI 22.1 BP 125/70 Blood Pressure Location Lt brachial Position Sitting Pulse 81 Pulse Source Pulse Oximeter Pulse Oximetry (%) 96 Oxygen Delivery Method Nasal Cannula Oxygen Flow Rate 3 Intake Visit Reasons: PILL COUNT Intake Note: Deysi comes in today for a pill count to oxycodone, patient should have 51 tablets and presents with 57 tablets which she last took today 03/15/25 at 9am. Pain today 6/10 Insights Analyst Required: No Accompanied by: Spouse Allergies Penicillins (PENICILLINS) Allergy (Severe, Verified 03/15/25 14:56) RASH seafood Allergy (Verified 03/15/25 14:56) Rash HPI Comments Details: Patient presents today for a pill count. She is supposed to have #51 pills in her possession and presents with #57 pills. This demonstrates a responsible attitude in regards to her opioid regimen. She reports adequate analgesia on her current regime without side effects. Pain is rated at 6/10. Patient utilizes oxygen 2-3 L with rest or sitting and 3-4 L with ambulation. She is followed by [facility]. Patient denies any fever, chills, weight loss, abdominal or groin pain, constipation, urinary retention, sedation, nausea, vomiting, constipation, sedation, dizziness, or urinary retention. [facility] Medical History Current non-smoker but past smoking history unknown Respiratory failure with hypoxia COPD exacerbation Pre-op examination History of OCD (obsessive compulsive disorder) History of panic attacks Anxiety and depression Radiculopathy, lumbar region HTN (hypertension) Sacroiliitis COPD (chronic obstructive pulmonary disease) Asthma Allergic rhinitis Disc degeneration, lumbar Surgical History History of surgery History of appendectomy Hx of tonsillectomy Status post excision of lipoma History of tubal ligation Hx of excision of mass History of surgery History of laparoscopic cholecystectomy History of esophagogastroduodenoscopy (EGD) History of umbilical hernia repair History of incision and drainage Family History Family/Other Cervical cancer Family/Other Stomach cancer Social History (Reviewed 03/15/25 @ 15:01 by GRADY Saleh Household Members: Significant Other and Family Household Members Other:: grandson Housing: House Do you presently have visiting nurse or other home services: No Alcohol intake: never Comment: Significant other bedside Patient Tobacco Use Status: Former Tobacco user Tobacco use type: Cigarette Substance Use Type: Marijuana Advance Directives Date on File: 04/09/24 service: No Current occupational status: unemployed Sexual orientation: Straight/Heterosexual Gender identity: Female Review of Systems Const All systems reviewed & are unremarkable except as noted in HPI and below Physical Exam Vital Signs: Last Vital Signs Pulse 81 03/15/25 14:55 BP 125/70 03/15/25 14:55 Pulse Ox 96 03/15/25 14:55 Oxygen Delivery Method Nasal Cannula 03/15/25 14:55 Oxygen Flow Rate 3 03/15/25 14:55 BMI result Body Mass Index 22.1 General: Appears afebrile. Alert and oriented. Mood and affect appropriate. Pleasant. Follows and participates in conversation appropriately. Respiratory effort is unlabored. No cough. O2 at 3L/min continuos. Able to transition from sit to stand unassisted. Ambulates with antalgic gait, mild limping. Eyes General: appearance normal, both eyes and all related structures Resp Effort & Inspection: normal respiratory effort, able to speak in complete sentences, no cough and no respiratory distress Psych Appearance: grossly normal and well kempt Mental Status: mental status grossly normal Speech and movement: Normal speech and movement present Affect: normal affect and Sad affect present Attitude: cooperative Thought process: Normal thought process present Thought content: Normal thought content present, suicidality (none), no hallucinations and Depressive thoughts present Insight: Good insight present (Psych) Judgement: Good judgement present (Psych) Assessment & Plan Assessment & Plan (1) Opioid contract exists: Code(s): Z79.891 - group home (current) use of opiate analgesic Category: Medical (2) Cervicalgia: Code(s): M54.2 - Cervicalgia Category: Medical (3) Disc degeneration, lumbar: Code(s): M51.36 - Other intervertebral disc degeneration, lumbar region Category: Medical (4) Spondylosis of lumbar region without myelopathy or radiculopathy: Code(s): M47.816 - Spondylosis without myelopathy or radiculopathy, lumbar region Category: Medical (5) Chronic pain syndrome: Code(s): G89.4 - Chronic pain syndrome Category: Medical Plan Patient has shown accountability for her medication regimen and the pill count was accurate. Masspat was reviewed and without concerns. No obvious signs of diversion, abuse or misuse of the opioid medications. Patient reports reasonable analgesia on current medication regime. Prescription sent for Oxycodone 5mg po TID prn with an advanced date of 04/02/25. Patient has Narcan script at home. She also takes pregabalin 150 mg BID prescribed by her PCP. Patient to follow-up in the office in 4-5 weeks for pill count and sooner as needed. Medications: Refilled oxycodone Partial Fill upon patient request. 5 mg PO TID PRN 90 tabs 0RF pain 30 days M46.1 - Sacroiliitis, not elsewhere classified, M47.816 - Spondylosis without myelopathy or radiculopathy, lumbar region, M51.36 - Other intervertebral disc degeneration, lumbar region Coding Level of Care Code Est Pt Level 4 (64029) Diagnoses Opioid contract exists Z79.891 Cervicalgia M54.2 Disc degeneration, lumbar M51.36 Spondylosis of lumbar region without myelopathy or radiculopathy M47.816 Chronic pain syndrome G89.4
[2025-03-15 14:55] VITALS: BP 125/70; PULSE 81; O2SAT 96; BMI 22.1
--- OUTSIDE RECORDS SUMMARY | 2025-03-15 18:57 | XMS_ITS | Encounter Summary ---
Author Organization [employer] Address [address] [facility] 7t [place] [address] Care Team Providers Care Oil Processing Technician Name Role Phone Zev Sanders MD Primary Care Provider [phone] Michelle Quiroz RN Unavailable Unavailable Gonzalo Lima Unavailable Benedict Lima RN Unavailable [phone] Reason for Visit * Reason Comments Med Refill Encounter Details Date Type Department Care Team (Late st Contact Info) Description 10/28/2024 Refill [facility] MED & PEDS [address] [place] [address] Darlene Gant MD [address] [place] [address] Chronic low back pain, unspecified back pain [...] documented as of this encounter Care Teams Oil Processing Technician Relationship Specialty Start Date End Date Zev Sanders MD [address] [place] [address] PCP - General Internal Medicine 11/16/19 Michelle Quiroz RN [address] [place] [address] Registered Nurse Family Medicine 10/04/24 12/06/24 Gonzalo Lima 10/04/24 02/18/25 Benedict Lima RN [address] [place] [address] Registered Nurse Family Medicine 12/06/24 01/12/25 documented as of this encounter
--- OUTSIDE RECORDS SUMMARY | 2025-03-15 18:57 | XMS_ITS | Encounter Summary ---
Author Organization [employer] Address [address] [facility] [address] 7[address] [place] [address] Care Team Providers Care Authorization Specialist Name Role Phone Zev Sanders MD Primary Care Provider [phone] Michelle Quiroz RN Unavailable Unavailable Gonzalo Lima Unavailable Benedict Lima RN Unavailable [phone] Encounter Details Date Type Department Care Team (Late st Contact Info) Description 12/24/2022 Orders Only [facility] MEDICINE [address] [place] [address] Provider, MD Josh Social History Tobacco Use [...] on filedocumented in this encounter Care Teams Authorization Specialist Relationship Specialty Start Date End Date Zev Sanders MD [address] [place] [address] PCP - General Internal Medicine 11/16/19 Michelle Quiroz RN [address] [place] [address] Registered Nurse Family Medicine 10/04/24 12/06/24 Gonzalo Lima 10/04/24 02/18/25 Benedict Lima RN [address] [place] [address] Registered Nurse Family Medicine 12/06/24 01/12/25 documented as of this encounter
--- OUTSIDE RECORDS SUMMARY | 2025-03-15 18:58 | XMS_ITS | Encounter Summary ---
Author Organization [employer] Address [address] [place] [address] 7 [place] [address] Care Team Providers Care Assistant Cook Name Role Phone Zev Sanders MD Primary Care Provider [phone] Michelle Quiroz RN Unavailable Unavailable Gonzalo Lima Unavailable Benedict Lima RN Unavailable [phone] Encounter Details Date Type Department Care Team (Late st Contact Info) Description 10/22/2022 Orders Only [facility] CHC MED & PEDS [address] [place], [place] [phone] Zev Sanders MD [address] [place] [address] Gastroenteritis (Primary Dx) Social History Tobacco Use [...] colitis documented in this encounter Care Teams Assistant Cook Relationship Specialty Start Date End Date Zev Sanders MD [address] [place] [address] PCP - General Internal Medicine 11/16/19 Michelle Quiroz RN [address] [place] [address] Registered Nurse Family Medicine 10/04/24 12/06/24 Gonzalo Lima 10/04/24 02/18/25 Benedict Lima RN [address] [place] [address] Registered Nurse Family Medicine 12/06/24 01/12/25 documented as of this encounter
--- OUTSIDE RECORDS SUMMARY | 2025-03-15 18:58 | XMS_ITS | Encounter Summary ---
Author Organization [employer] Address [address] [facility] 7t [place] [address] Care Team Providers Care Motor Setter Name Role Phone Zev Sanders MD Primary Care Provider [phone] Michelle Quiroz RN Unavailable Unavailable Gonzalo Lima Unavailable Benedict Lima RN Unavailable [phone] Encounter Details Date Type Department Care Team (Late st Contact Info) Description 07/21/2023 Orders Only [facility] CHC MED & PEDS [address] [place], [place] [phone] Zev Sanders MD [address] [place], [place] [phone] Social History Tobacco Use Types Packs/Day Years [...] on filedocumented in this encounter Care Teams Motor Setter Relationship Specialty Start Date End Date Zev Sanders MD [address] [place] [address] PCP - General Internal Medicine 11/16/19 Michelle Quiroz RN [address] [place] [address] Registered Nurse Family Medicine 10/04/24 12/06/24 Gonzalo Lima 10/04/24 02/18/25 Benedict Lima RN [address] [place] [address] Registered Nurse Family Medicine 12/06/24 01/12/25 documented as of this encounter
--- OUTSIDE RECORDS SUMMARY | 2025-03-15 18:58 | XMS_ITS | Encounter Summary ---
Author Organization [employer] Address [address] [place] [address] [place], [place] [address] Care Team Providers Care Primary Counselor Name Role Phone Zev Sanders MD Primary Care Provider [phone] Gonzalo Lima Unavailable Benedict Lima RN Unavailable [phone] Reason for Referral * Consultation (Urgent) - Closed Specialty Diagnoses / Procedures Referred By Armando ye Referred To Contact Orthopaedic Surgery Diagnoses Synovial cyst of right popliteal space Zev Sanders MD [address] [place] [address] Phone: tel: fax: [facility] [address] [place] [address] Phone: tel: fax: Referral ID Status Reason Start Date Expiration Date V isits Requested Visits Authorized [id number] Closed Specialty Services Required 12/17/2024 12/17/2025 1 1 Encounter Details Date Type Department Care Team (Late st Contact Info) Description 12/15/2024 Orders Only [facility] MED & PEDS [address] [place], [place] [phone] Zev Sanders MD [address] [place] [address] Essential hypertension (Primary Dx); Synovial cyst of [...] PM EDT Narrative 01/11/2025 5:05 PM EDT [place] [address] [address] Scan Report Signed Patient: Deysi Pfeiffer MR#: [id number] : 1970 Acct:[id number] Age/Sex: 54 / F ADM Date: 01/11/25 Loc: HO.CT Attending Dr: Erickson Mathews MD Ordering Physician: Erickson Mathews MD Date of Service: 01/11/25 Procedure(s): CT chest wo IV con Accession Number(s): [id number] cc: Erickson Mathews MD; Zev Sanders MD Report Number: [id number]: Total DLP = 78.00 mGy-cm Reason for [...] 01/11/25 1701 DD/ 1556 TD/TT: 01/11/25 1624 Corking Machine Operator: Procedure Note Donotuseinterpreter, Image - 01/11/[address] [place] [address] [address] Scan Report Signed Patient: Deysi Pfeiffer DMR#: [id number] : 1970Acct:[id number] Age/Sex: 54 / FADM Date: 01/11/25 Loc: HO.CT Attending Dr: Erickson Mathews MD Ordering Physician: Erickson Mathews MD Date of Service: 01/11/25 Procedure(s): CT chest wo IV con Accession Number(s): [id number] cc: Erickson Mathews MD; Zev Sanders MD Report Number: [id number]: Total DLP = 78.00 mGy-cm Reason for [...] 01/11/25 1701 DD/ 1556 TD/TT: 01/11/25 1624 Corking Machine Operator: [facility] External Provider IMG CT PROCEDURES Final Result documented in this encounter Visit Diagnoses Diagnosis Essential hypertension- Primary Unspecified essential hypertension Synovial cyst of right popliteal space documented in this encounter Additional Health Concerns Assessment Noted Time PHQ-9 Depression Total Score: 2 10/15/19 11:49 AM EDT documented as of this encounter Care Teams Primary Counselor Relationship Specialty Start Date End Date Zev Sanders MD [address] [place] [address] PCP - General Internal Medicine 11/16/19 Gonzalo Lima 10/04/24 02/18/25 Benedict Lima RN [address] [place] [address] Registered Nurse Family Medicine 12/06/24 01/12/25 documented as of this encounter
--- OUTSIDE RECORDS SUMMARY | 2025-03-15 18:58 | XMS_ITS | Encounter Summary ---
Author Organization [employer] Address [address] [facility] 7t [place] [address] Care Team Providers Care Meat Apprentice Name Role Phone Zev Sanders MD Primary Care Provider [phone] Michelle Quiroz RN Unavailable Unavailable Gonzalo Lima Unavailable Benedict Lima RN Unavailable [phone] Encounter Details Date Type Department Care Team (Late st Contact Info) Description 11/23/2024 Orders Only [facility] [address] [place] [address] Provider, MD Josh Social History Tobacco Use [...] 12 lead (11/22/2024 12:59 PM EDT) Result [facility] Historical Provider ECG ORDERABLES Final Res ult [...] documented as of this encounter Care Teams Meat Apprentice Relationship Specialty Start Date End Date Zev Sanders MD [address] [place] [address] PCP - General Internal Medicine 11/16/19 Michelle Quiroz RN [address] [place] [address] Registered Nurse Family Medicine 10/04/24 12/06/24 Gonzalo Lima 10/04/24 02/18/25 Benedict Lima RN [address] [place] [address] Registered Nurse Family Medicine 12/06/24 01/12/25 documented as of this encounter
--- OUTSIDE RECORDS SUMMARY | 2025-03-15 18:58 | XMS_ITS | Encounter Summary ---
Author Organization [employer] Address [address] [facility] 7t [place] [address] Care Team Providers Care Tempering Machine Operator Name Role Phone Zev Sanders MD Primary Care Provider [phone] Michelle Quiroz RN Unavailable Unavailable Gonzalo Lima Unavailable Benedict Lima RN Unavailable [phone] Reason for Visit * Reason Onset Date Comments Med Refill 07/21/2023 Encounter Details Date Type Department Care Team (Late st Contact Info) Description 07/21/2023 Telephone [facility] MEDICINE [address] [place] [address] Zev Sanders MD [address] [place] [address] Med Refill Social History Tobacco Use Types [...] 150 MG capsule To be sent to: [facility] - [place], [place] - [address] [place] [address] documented in this encounter Plan of Treatment Not on file documented as of this encounter Visit Diagnoses Not on filedocumented in this encounter Care Teams Tempering Machine Operator Relationship Specialty Start Date End Date Zev Sanders MD [address] [place] [address] PCP - General Internal Medicine 11/16/19 Michelle Quiroz RN [address] [place] [address] Registered Nurse Family Medicine 10/04/24 12/06/24 Gonzalo Lima 10/04/24 02/18/25 Benedict Lima RN [address] [facility] [place] [address] Registered Nurse Family Medicine 12/06/24 01/12/25 documented as of this encounter
--- OUTSIDE RECORDS SUMMARY | 2025-03-15 18:58 | XMS_ITS | Encounter Summary ---
Author Organization [employer] Address [address] [place] [address] 7 [place] [address] Care Team Providers Care Yarn Mercerizer Operator Helper Name Role Phone Zev Sanders MD Primary Care Provider [phone] Michelle Quiroz RN Unavailable Unavailable Gonzalo Lima Unavailable Benedict Lima RN Unavailable [phone] Reason for Visit * Reason Onset Date Comments Appointment Request 11/01/2022 Encounter Details Date Type Department Care Team ([facility] st Contact Info) Description 11/01/2022 Telephone [facility] MED & PEDS [address] [place], [place] [phone] Zev Sanders MD [address] [place], [place] [phone] Appointment Request Social History Tobacco Use Types [...] PE on 10/24/2022. Please contact pt at [phone] documented in this encounter Plan of Treatment Not on file documented as of this encounter Visit Diagnoses Not on filedocumented in this encounter Care Teams Yarn Mercerizer Operator Helper Relationship Specialty Start Date End Date Zev Sanders MD [address] [place] [address] PCP - General Internal Medicine 11/16/19 Michelle Quiroz RN [address] [place] [address] Registered Nurse Family Medicine 10/04/24 12/06/24 Gonzalo Lima 10/04/24 02/18/25 Benedict Lima RN [address] [place] [address] Registered Nurse Family Medicine 12/06/24 01/12/25 documented as of this encounter
--- OUTSIDE RECORDS SUMMARY | 2025-03-15 18:58 | XMS_ITS | Encounter Summary ---
Author Organization [employer] Address [address] [facility] [address] [place] [address] Care Team Providers Care Ultrasound Technol Name Role Phone Zev Sanders MD Primary Care Provider [phone] Michelle Quiroz RN Unavailable Unavailable Gonzalo Lima Unavailable Benedict Lima RN Unavailable [phone] Encounter Details Date Type Department Care Team (Late st Contact Info) Description 11/25/2024 Orders Only [facility] CHC MED & PEDS [address] [place] [address] Provider, MD Josh Social History Tobacco Use [...] documented as of this encounter Care Teams Ultrasound Technol Relationship Specialty Start Date End Date Zev Sanders MD [address] [place] [address] PCP - General Internal Medicine 11/16/19 Michelle Quiroz RN [address] [place] [address] Registered Nurse Family Medicine 10/04/24 12/06/24 Gonzalo Lima 10/04/24 02/18/25 Benedict Lima RN [address] [place] [address] Registered Nurse Family Medicine 12/06/24 01/12/25 documented as of this encounter
--- OUTSIDE RECORDS SUMMARY | 2025-03-15 18:58 | XMS_ITS | Encounter Summary ---
Author Organization [employer] Address [address] [facility] 7 [place] [address] Care Team Providers Care Machine Sole Leveler Name Role Phone Zev Sanders MD Primary Care Provider +[phone] Michelle Quiroz RN Unavailable Unavailable Gonzalo Lima Unavailable Benedict Lima RN Unavailable [phone] Reason for Visit * Reason Onset Date Comments ER Follow-up 10/04/2024 Encounter Details Date Type Department Care Team ([facility] st Contact Info) Description 10/04/2024 Telephone [facility] MED & PEDS [address] [place], [place] [phone] Zev Sanders MD [address] [place], [place] [phone] ER Follow-up Social History Tobacco Use Types [...] to report ED visit on : Date: [facility]: 10/01/24 Seen for: Trouble breathing Symptomatic No Requesting a referral to heavy machinery operator at [facility]. Contact pt at [phone] documented in this encounter Plan of Treatment Not on file documented as of this encounter Visit Diagnoses Not on filedocumented in this encounter Additional Health Concerns Assessment Noted Time PHQ-9 Depression Total Score: 7 10/14/19 24 11:59 AM EDT documented as of this encounter Care Teams Machine Sole Leveler Relationship Specialty Start Date End Date Zev Sanders MD [address] [place] [address] PCP - General Internal Medicine 11/16/19 Michelle Quiroz RN [address] [place] [address] Registered Nurse Family Medicine 10/04/24 12/06/24 Gonzalo Lima 10/04/24 02/18/25 Benedict Lima RN [address] [place] [address] Registered Nurse Family Medicine 12/06/24 01/12/25 documented as of this encounter
--- OUTSIDE RECORDS SUMMARY | 2025-03-15 18:58 | XMS_ITS | Encounter Summary ---
Author Organization [employer] Address [address] [place] [address] [address] [place] [address] Care Team Providers Care Executive Casino Host Name Role Phone Zev Sanders MD Primary Care Provider [phone] Michelle Quiroz RN Unavailable Unavailable Gonzalo Lima Unavailable Benedict Lima RN Unavailable [phone] Encounter Details Date Type Department Care Team (Late st Contact Info) Description 04/12/2022 Orders Only [facility] [address] [place] [address] Zev Sanders MD [address] [place] [address] Social History Tobacco Use Types Packs/Day Years [...] (10/21/2022 2:13 PM EDT) Slide Review VERIFIED [facility] 10/21/2022 2:13 PM EDT 10/21/2022 5:23 PM EDT us Zev Sanders MD LAB BLOOD ORDERABLES Final Result [facility] [address] [place] [phone] * (ABNORMAL) VENOUS BLOOD GAS (09/04/2022 1:17 PM EDT) VBG pH 7.37 7.32 - 7.43 [facility] Comment:METER #: [id number] additional_comment: Cb murpe VBG PCO2 57 mmHg [facility] Comment:METER #: [id number] additional_comment: Cb murpe VBG PO2 48 mmHg [facility] Comment:METER #: [id number] additional_comment: Cb murpe VBG Base Excess 6.2 mmol/L [facility] Comment:METER #: [id number] additional_comment: Cb murpe VBG HCO3 33(H) 22 - 26 mmol/L [facility] Comment:METER #: [id number] additional_comment: Cb murpe O2 Sat, Lefty 77.0 % [facility] Comment:METER #: [id number] additional_comment: Cb murtere 09/04/2022 1:17 PM EDT 09/04/2022 1:23 PM EDT [facility] External Provider LAB BLO OD ORDERABLES Final Result Performing Organization Address [facility] de Phone Number [facility] [address] [place] [address] [phone] * D Dimer High Sensitivity (09/04/2022 1:10 PM EDT) Pathologist [facility] D Dimer High Sensitivity <150 NG/ML [facility] Comment:D-DIMER HS REFERENCE RANGENote: Our assay reports D-Dimer Units (D- DU).The cut-off value for venous thromboembolic (VTE) disease is230 ng/mL. This value has a very high negative predictivevalue when the patient has a low to moderate clinicalprobability of VTE.The upper limit of normal is 243 ng/mL. 09/04/2022 1:10 PM EDT 09/04/2022 1:18 PM EDT [facility] External Provider LAB BLO OD ORDERABLES Final Result Performing Organization Address [facility] de Phone Number [facility] [address] [place] [address] [phone] * B Type Natriuretic Peptide (BNP) (09/04/2022 11:26 AM EDT) Pathologist [facility] B Type Natriuretic Peptide 19 <100 pg/mL [facility] Comment:For those patients w ho are being treated with Natrecor(nesiritide, recombinant BNP), BNP testing should beperformed at least two hours post treatment in order toensure that only endogenous levels of BNP are detected. 09/04/2022 11:2 6 AM EDT 09/04/2022 1:27 PM EDT us [facility] External Provider LAB BLO OD ORDERABLES Final Result [facility] [address] [place] [address] [phone] * (ABNORMAL) Comprehensive Metabolic Panel (09/04/2022 11:26 AM EDT) Sodium 142 135 - 145 mmol/L [facility] Potassium 4.2 3.3 - 5.1 mmol/L [facility] Chloride 102 96 - 108 mmol/L [facility] Carbon Dioxide 34(H) 22 - 29 mmol/L [facility] Anion Gap 10(L) 12 - 20 [facility] Urea Nitrogen (BUN) 15 9 - 16 mg/dL [facility] Creatinine, Serum 0.68 0.5 - 1.4 mg/dL [facility] Creatinine Clr Calc Pharmacy 74.8 [facility] Comment:Provided height and weight: 162.56 cm,49 kg.eGFR (calculated from the MDRD study equation) and eCrCl(calculated from the Cockcroft-Gault equation) are based ondifferent parameters and may not yield comparable results.If eCrCl result is absurd, please check patient'sheight/weight. Estimated Glomerular Filt Rate >60 [facility] Comment:NOTE: For -Am erican individuals, multiply the result by 1.210.Chronic Kidney Disease: Estimated GFR < 60 mL/min/1.12v3Pvfjow Kidney Disease: Estimated GFR < 15 mL/min/1.73m2 Glucose 112 60 - 115 mg/dL [facility] Calcium 9.4 8.4 - 10.2 mg/dL [facility] Bilirubin, Total 0.7 0.0 - 1.0 mg/dL [facility] Aspartate Amino Transferase 21 5 - 31 U/L [facility] Alanine Aminotransferase 17 0 - 31 U/L [facility] Total Protein 6.7 6.5 - 8.0 g/dL [facility] Albumin Level 4.1 3.5 - 5.0 g/dL [facility] Alkaline Phosphatase 73 39 - 117 U/L [facility] 09/04/2022 11:2 6 AM EDT 09/04/2022 11:33 AM EDT [facility] External Provider LAB BLO OD ORDERABLES Final Result [facility] [address] [place] [address] [phone] * COVID-19 ID NOW (Locately) (09/04/2022 11:26 AM EDT) IDNOW SERIAL# [id number] [facility] COVID-19 TEST Negative Negative [facility] COVID-19 NOTE See Note [facility] Comment: Results are for the [...] facilities within the [facility] and [facility] are required to report [...] use by authorized laboratories.Testing performed on the [employer] ID NOW utilizing NAAT. 09/04/2022 11:2 6 AM EDT 09/04/2022 11:33 AM EDT us [facility] Exter nal Provider LAB MOLECULAR DIAGNOSTICS ORDERABLES Final Result [facility] [address] [place] [address] [phone] * (ABNORMAL) CBC auto differential (09/04/2022 11:26 AM EDT) White Blood Count 10.4 4.8 - 10.8 X10*3/uL [facility] Red Blood Count 5.42 4.20 - 5.50 X10*6/uL [facility] Hemoglobin 16.0 12.0 - 16.0 g/dl [facility] Hematocrit 49.3(H) 37.0 - 47.0 % [facility] Mean Corpuscular Volume 91.0 80.0 - 98.0 fL [facility] Mean Corpuscular Hemoglobin 29.5 27.0 - 33.0 pg [facility] Mean Corpuscular HGB Conc 32.5 31.0 - 35.0 g/dl [facility] Red Cell Distribution Width 14.6 11.0 - 16.0 % [facility] Platelet Count 238 160 - 400 X10*3/uL [facility] Mean Platelet Volume 9.5 9.4 - 12.3 fL [facility] Neutrophils Percent Auto 51.2 45 - 73 % [facility] Imm Gran Pct Auto 0.3 0.0 - 0.4 % [facility] Lymphocytes Percent Auto 38.4 20 - 40 % [facility] Monocytes Percent Auto 8.1 2 - 11 % [facility] Eosinophils Percent Auto 1.5 0 - 4 % [facility] Basophils Percent Auto 0.5 0 - 2 % [facility] NRBC Pct Auto 0.0 0.0 - 0.2 /100WBC [facility] Neutrophils Absolute Auto 5.4 2.0 - 8.3 x10*3/uL [facility] Imm Gran Abs Auto 0.03 0.00 - 0.03 X10*3/uL [facility] Lymphocytes Absolute Auto 4.0 1.2 - 4.9 X10*3/uL [facility] Monocytes Absolute Auto 0.8 0.1 - 1.2 X10*3/uL [facility] Eosinophils Absolute Auto 0.2 0.0 - 0.4 X10*3/uL [facility] Basophils Absolute Auto 0.1 0.0 - 0.2 X10*3/uL [facility] NRBC Abs Auto 0.000 0.0 - 0.012 X10*3/uL [facility] 09/04/2022 11:2 6 AM EDT 09/04/2022 11:33 AM EDT us [facility] External Provider LAB BLO OD ORDERABLES Final Result Performing Organization Address City/State/[facility] Co de Phone Number [facility] [address] [place] [address] [phone] documented in this encounter Visit Diagnoses Not on filedocumented in this encounter Care Teams Executive Casino Host Relationship Specialty Start Date End Date Zev Sanders MD [address] [place] [address] PCP - General Internal Medicine 11/16/19 Michelle Quiroz RN [address] [place] [address] Registered Nurse Family Medicine 10/04/24 12/06/24 Gonzalo Lima 10/04/24 02/18/25 Benedict Lima RN [address] [place] [address] Registered Nurse Family Medicine 12/06/24 01/12/25 documented as of this encounter
--- OUTSIDE RECORDS SUMMARY | 2025-03-15 18:58 | XMS_ITS | Encounter Summary ---
Author Organization [employer] Address [address] [place] [address] [address] Prov[address] Care Lane Marker Installer Name Role Phone Zev Sanders MD Primary Care Provider [phone] Michelle Quiroz RN Unavailable Unavailable Gonzalo Lima Unavailable Benedict Lima RN Unavailable [phone] Encounter Details Date Type Department Care Team (Late st Contact Info) Description 11/24/2024 Orders Only [facility] [address] [place] [address] Provider, MD Josh Social History Tobacco Use [...] documented as of this encounter Care Teams Lane Marker Installer Relationship Specialty Start Date End Date Zev Sanders MD [address] [place] [address] PCP - General Internal Medicine 11/16/19 Michelle Quiroz RN [address] [place] [address] Registered Nurse Family Medicine 10/04/24 12/06/24 Gonzalo Lima 10/04/24 02/18/25 Benedict Lima RN [address] [place] [address] [place] [address] Registered Nurse Family Medicine 12/06/24 01/12/25 documented as of this encounter
--- OUTSIDE RECORDS SUMMARY | 2025-03-15 18:58 | XMS_ITS | Clinical Summary ---
Author Organization [facility] Address [address] [place] [phone] Phone Care Team Providers Care Practice Support Specialist Name Role Phone Zev Sanders MD Primary Care Provider [phone] Allergies Active Allergy Reactions Criticality Noted Date [...] Date Diagnosed Date Sepsis due to pneumonia 11/22/2024 Encounters Date Type Department Care Team Description 02/02/2025 Telephone Pulmonology - [place] [address] [facility] [address] [place] [address] Tasha Sanon [place] 12/15/2024 2:15 PM EDT Ancillary Procedure [facility] [address] [facility] [address] [place] [address] Lower limb pain, anterior, right from Last 3 Months Medical History Medical History Date Comments UTI (urinary tract infection) Asthma COPD (chronic obstructive pulmonary disease) (CM S/HCC V24, CMS/HCC V28) Anxiety GERD (gastroesophageal reflux disease) Hypertension [...] care for your loved ones. For example, early childhood or elderly care for an older adult? [...] Orientation Straight 11/22/2024 6: 14 PM EDT Last Filed Vital Signs Vital [...] Care Team (Late st Contact Info) Description 04/01/2025 11:00 AM EST Office Visit Thoracic Surgery - [address] [address] Epi Hernández, PA [address] [place] [phone] Health Maintenance Due Date Last Done Comments Hepatitis A Vaccines (1 of 2 - [...] C Screening 11/22/2024 COVID-19 Vaccine (1 - 2024- season) 2024 Influenza Vaccine (#1) [...] PM EDT Lower limb pain, anterior, right BASIC METABOLIC PANEL Routine 11/24/2024 6:12 AM EDT from Last 3 Months or Most Recently Relevant to Health Maintenance Results * Vascular US duplex lower extremity [...] the right leg. The vessel showed compressibility. Casing Material Weigher Details A israel scale, color and doppler analysis ultrasound was performed. During the study longitudinal and transverse views were obtained. Pulsed wave doppler was performed. us Zev Sanders MD CV VASCULAR PROCEDURES Fi nal Result * (ABNORMAL) Basic metabolic panel (11/24/2024 6:12 AM EDT) Sodium 143 133 - 145 mmol/L LAB CHEMISTRY METHOD 11/24/2024 7:32 AM EDT [facility] Potassium 3.8 3.5 - 5.5 mmol/L LAB CHEMISTRY METHOD 11/24/2024 7:32 AM EDT [facility] Chloride 113(H) 96 - 110 mmol/L LAB CHEMISTRY METHOD 11/24/2024 7:32 AM T [facility] CO2 17(L) 21 - 32 mmol/L LAB CHEMISTRY METHOD 11/24/2024 7:32 AM [facility] Anion Gap 13(H) 3 - 11 LAB CHEMISTRY METHOD 11/24/2024 7:32 AM [facility] Glucose 62(L) 70 - 100 mg/dL LAB CHEMISTRY METHOD 11/24/2024 7:32 AM [facility] BUN 9 5 - 25 mg/dL LAB CHEMISTRY METHOD 11/24/2024 7:32 AM [facility] Creatinine 0.53 0.50 - 1.10 mg/dL LAB CHEMISTRY METHOD 11/24/2024 7:32 AM [facility] eGFR 110 >=60 mL/min/1. 73m2 LAB CHEMISTRY METHOD 11/24/2024 7:32 AM [facility] Comment:Calculation based on the Chronic Kidney Disease Epidemiology Collaboration (CKD-EPI) equation refit without adjustment for race. BUN/Creatinine Ratio 17.0 LAB CHEMISTRY METHOD 11/24/2024 7:32 AM [facility] Calcium 9.0 8.5 - 10.5 mg/dL LAB CHEMISTRY METHOD 11/24/2024 7:32 AM [facility] Blood Venous blood specimen / Unknown Venipuncture / Unknown 11/24/2024 6:12 AM EDT 11/24/2024 6:46 AM EDT us Sahil Maria MD LAB BLOOD ORDERABLES Final Resul t [facility] [address] [place] [address], from Last 3 Months or Most Recently Relevant to Health Maintenance Insurance MEDICAID ADVANTAGE GENERIC Advance Directives * Full Code - Default [...] currently active code status orders. Care Teams Practice Support Specialist Relationship Specialty Start Date End Date Zev Sanders MD [address] [place] [address] PCP - General Internal Medicine 10/27/19
--- OUTSIDE RECORDS SUMMARY | 2025-03-15 18:58 | XMS_ITS | Clinical Summary ---
Author Organization [employer] Address [address] [place] [address] [address] [place] [address] Care Team Providers Care Optical Instruments Supervisor Name Role Phone Zev Sanders MD Primary Care Provider [phone] Allergies Active Allergy Reactions Criticality Noted Date Comments Penicillins Rash High 05/13/2019 RASH ON MOUTH WHEN A CHILD Shellfish Allergy Rash Low 04/08/2024 Medications tiotropium (Spiriva Respimat) 2.5 MCG/ACT inhalerIndicati ons:COPD (chronic obstructive pulmonary disease) case management patient ([facility] ([facility]) INHALE TWO PUFF BY MOUTH EVERY MORNING 4 g 5 023 Active ipratropium-alb uterol (Duo-Neb) 0.5-2.5 mg/3 mL [...] ions:Asthma-chr onic obstructive pulmonary disease overlap syndrome ([facility]) ([facility]) Take 1 ampule by nebulization every 8 [...] the morning. 30 tablet 3 025 Active cholecalciferol VITAMIN D (Vitamin D-3) 50 MCG (2000 UT) tablet Take 1 tablet (50 mcg) by mouth in the morning. 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 1 each 025 Active pregabalin (Lyrica) 150 MG capsuleIndicati ons:Chronic low back pain, unspecified back pain laterality, unspecified whether sciatica present TAKE ONE CAPSULE TWICE DAILY IN THE MORNING AND AT BEDTIME 60 capsule 12/10/2 025 Active budesonide-form oterol (Symbicort) 160-4.5 MCG/ACT inhaler Inhale 2 puffs in the morning and at bedtime. 022 2024 Discontinued(R eorder (will not trigger notification to Pharmacy)) pregabalin (Lyrica) 150 MG capsuleIndicati ons:Chronic low back pain, unspecified back pain laterality, unspecified whether sciatica present TAKE ONE CAPSULE TWICE DAILY IN THE MORNING AND AT BEDTIME 60 capsule 2024 Discontinued doxycycline (Vibramycin) 100 MG capsuleIndicati ons:COPD exacerbation (CMS/HCC) ([facility]) Take 1 capsule (100 mg) by mouth 2 times daily for 10 days. Take with at least 8 ounces (large glass) of water, do not lie down for 30 minutes after 20 capsule 2024 Hospital, Clinic, or Other Facility Administered Medication Ordered Dose Route Frequency Start Date End Date Status ipratropium-albutero l (Duo-Neb) 0.5-2.5 mg/3 mL nebulizer solution 3 mgIndications:Asthma -chronic obstructive pulmonary disease overlap syndrome (CMS/HCC) (HCC) 3 mg NEBULIZATION Once 02/22/2025 02/22/2025 Ended Active Problems Problem Noted Date Diagnosed Date Olecranon bursitis, right elbow 03/29/2022 Asthma-chronic obstructive p ulmonary disease overlap syndrome (CMS/HCC) 12/19/2017 Assessment & Plan (02/22/2025 7:15 PM EST): She ran out of Symbicort, prescription sent. Orders: budesonide-formoterol (Symbicort) 160-4.5 MCG/ACT inhaler; Inhale 2 puffs in the morning and at bedtime. ipratropium-albuterol (Duo-Neb) 0.5-2.5 mg/3 mL nebulizer solution 3 mg Chronic back pain 12/19/2017 Essential hypertension 12/19/2017 Menopausal symptom 12/19/2017 Migraine 12/19/2017 Mood disorder 12/19/2017 Seasonal allergies 12/19/2017 Tobacco dependence syndrome 12/19/2017 Encounters Date Type Department Care Team Description 03/09/2025 Refill [facility] [address] [place] [address] Zev Sanders MD Chronic low back pain, unspecified back pain laterality, unspecified whether sciatica present 02/22/2025 6:40 PM EST Office Visit [facility] [address] [place] [phone] Humaira Teixeira MD COPD exacerbation ([facility] ([facility]) (Primary Dx); Asthma-chronic obstructive pulmonary disease overlap syndrome (CMS/HCC) (HCC) 02/18/2025 Patient Outreach [facility] [address] [place] [phone] eZv Sanders MD Care Coordination ([facility]/Palak Lima, program graduation ) 02/04/2025 Refill [facility] [address] [place] [address] Zev Sanders MD Chronic low back pain, unspecified back pain laterality, unspecified whether sciatica present 01/31/2025 Refill [facility] [address] [place] [address] Wendy Andre MD 01/26/2025 Patient Outreach [facility] [address] [place] [phone] Zev Sanders MD Care Coordination ([facility]/DESEAN Lima, [facility] f/u call_lvm) 01/14/2025 Telephone [facility] [address] [place] [address] Zev Sanders MD Chart Prep 01/12/2025 Patient Outreach [facility] [address] [place] [phone] Zev Sanders MD Care Management ([facility]- f/u call #2 lvm) 01/06/2025 2:00 PM EDT Clinical Support [facility] [address] [place] [address] Humaira Lopez RN Essential hypertension 01/06/2025 Travel 01/06/2025 Telephone [facility] [address] [place] [address] Zev Sanders MD 01/06/2025 Refill [facility] [address] [place] [address] Darlene Gant MD 01/06/2025 Refill [facility] [address] [place], [place] [phone] Zev Sanders MD Chronic low back pain, unspecified back pain laterality, unspecified whether sciatica present 01/03/2025 Telephone [facility] [address] [place], [place] [phone] Zev Sanders MD order 12/30/2024 Patient Outreach [address] [address] Zev Sanders MD Care Coordination ([facility] Gonzalo Lima [facility] f/u_lvm ) 12/29/2024 11:15 AM EDT Telemedicine [facility] [address] [place] [address] Humaira Lopez RN Essential hypertension 12/29/2024 Travel 12/28/2024 Patient Outreach [address] [address] Zev Sanders MD Care Management ([facility]- f/u call lvm) 12/17/2024 Results Follow-Up [facility] [address] [place] [phone] Isabelle Robbins, first assistant US lower extremity venous duplex right 12/15/2024 Orders Only [facility] [address] [place] [address] Zev Sanders MD Essential hypertension (Primary Dx); Synovial cyst of right popliteal space 12/15/2024 Patient Outreach [facility] [address] [place] [phone] Zev Sanders MD 12/14/[address] [address] Zev Sanders MD Nurse Triage from Last 3 Months Immunizations Immunization Administration [...] Sign Reading Time Taken Comments Blood Pressure 138/72 02/22/2025 5:47 PM EST Pulse 84 02/22/2025 5:47 PM EST Temperature 36.9 C (98.5 F) 02/22/2025 5:47 PM EST Respiratory Rate 20 02/22/2025 5:47 PM EST Oxygen Saturation 94% 02/22/2025 7:11 PM EST on 2L O2 Inhaled Oxygen Concentration - - Weight 54.3 [...] 2) 06/24/2024 04/29/2024 COVID-19 Vaccine (1 - 2024- season) 2024 Influenza Vaccine (#1) 2024 , 01/23/2023, 12/19/2017, Additional history exists Disability Screening 05/01/2025 05/01/2024 Alcohol/Substance Use Screening 10/14/2025 10/14/2024 Depression Screening 10/14/2025 10/14/2024, 10/15/19 SDOH Screening 10/14/2025 10/14/2024 Tobacco Screening 02/22/2026 02/22/2025 Colorectal Cancer Screening 03/10/2026 FIT DNA/Cologuard 03/10/2026 [...] Procedure Name Priority Date/Time Associated Diagnosis Comments POCT COVID-19 AG ZAYAS ID NOW Routine 02/22/2025 6:08 PM EST COPD exacerbation (CMS/HCC) (HCC) POCT INFLUENZA B (ID NOW RAPID MOLECULAR) Routine 02/22/2025 6:08 PM EST COPD exacerbation (CMS/HCC) (HCC) POCT INFLUENZA A (ID NOW RAPID MOLECULAR) Routine 02/22/2025 6:08 PM EST COPD exacerbation (CMS/HCC) (HCC) CT CHEST WO CONTRAST Routine 01/11/2025 3:56 PM EDT AMB REFERRAL TO CARDIOLOGY Routine 12/29/2024 Palpitations VASC US LOWER EXTREMITY VENOUS DUPLEX RIGHT Urgent 12/15/2024 Lower limb pain, anterior, right LAB COLOGUARD COLON CANCER SCREEN Routine 03/10/2023 [...] Recently Relevant to Health Maintenance Results * Influenza B (ID NOW Rapid Molecular) (02/22/2025 6:08 PM EST) Influenza B Negative Negative, Indeterminate [facility] Swab 02/22/2025 6:08 PM EST Humaira Teixeira MD POINT OF CARE TEST ENTER/E DIT ORDERABLES Final Result Performing Organization Address [facility]/ZIP Co de Phone Number [facility] [address] [place] [phone] * Influenza A (ID NOW Rapid Molecular) (02/22/2025 6:08 PM EST) Influenza A Negative Negative, Indeterminate [facility] Swab 02/22/2025 6:08 PM EST Humaira Teixeira MD POINT OF CARE TEST ENTER/E DIT ORDERABLES Final Result Performing Organization Address [facility]/ZIP Co de Phone Number [facility] [address] [place] [phone] * POCT COVID-19 Ag Zayas ID NOW (02/22/2025 6:08 PM EST) Coronavirus Antigen PCR Negative Negative, Indeterminate, None Detected, Trace, 3+, Specimen unsatisfactory for evaluation, Weakly Positive, 1+, 2+ Swab 02/22/2025 6:08 PM EST us Humaira Teixeira MD POINT OF CARE TEST ENTER/E DIT ORDERABLES Final Result * CT Chest w/o Contrast (01/11/2025 3:56 PM EDT) Anatomical Region Laterality Modality Body, Chest Computed Tomogra phy 01/11/2025 3:56 PM EDT Narrative 01/11/2025 5:05 PM EDT [address] [address] [address] Scan Report Signed Patient: Deysi Pfeiffer MR#: [id number] : 1970 Acct:[id number] Age/Sex: 54 / F ADM Date: 01/11/25 Loc: HO.CT Attending Dr: Erickson Mathews MD Ordering Physician: Erickson Mathews MD Date of Service: 01/11/25 Procedure(s): CT chest wo IV con Accession Number(s): [id number] cc: Erickson Mathews MD; Zev Sanders MD Report Number: [id number]: Total DLP = 78.00 mGy-cm Reason for [...] 01/11/25 1701 DD/ 1556 TD/TT: 01/11/25 1624 Blowing Engineer: Procedure Note Donotuseinterpreter, Image - 01/11/[address] [address] [address] Scan Report Signed Patient: Deysi Pfeiffer [facility]#: [id number] : 1970Acct:[id number] Age/Sex: 54 / FADM Date: 01/11/25 Loc: HO.CT Attending Dr: Erickson Mathews MD Ordering Physician: Erickson Mathews MD Date of Service: 01/11/25 Procedure(s): CT chest wo IV con Accession Number(s): [id number] cc: Erickson Mathews MD; Zev Sanders MD Report Number: [id number]: Total DLP = 78.00 mGy-cm Reason for [...] 01/11/25 1701 DD/ 1556 TD/TT: 01/11/25 1624 Blowing Engineer: [facility] External Provider IMG CT PROCEDURES Final Result * Referral to Cardiology (12/29/2024) Wendy Andre MD OUTPATIENT REFERRAL ORDERABLES F inal Result * Vascular US lower extremity venous duplex right (12/15/2024) Zev Sanders MD CV VASCULAR PROCEDURES Mary Jane l Result * Cologuard?? colon cancer screening (03/10/2023 2:14 PM EST) Cologuard Result Negative Negative 03/21/20 23 1:56 AM EST [facility] (CLIA #:[id number]) Comment: NEGATIVE TEST RESULT. A negative Cologuard [...] Luis Robles al, N Engl J Med 2014;370(14):1905-5195) The normal value (reference range) for this assay is negative. COLOGUARD RE-SCREENING RECOMMENDATION: Periodic colorectal cancer screening is an important part of preventive healthcare for asymptomatic individuals at average risk for colorectal cancer. Following a negative Cologuard result, the [place] [employer] Society and U.S. Multi-Society Task Force screening guidelines recommend a Cologuard re-screening interval of 3 years. References: [place] [employer] Guideline for Colorectal Cancer Screening: https://www.cancer.org/cancer/cyqxi-dfacui-yfdjai/fzdtiayje-qjoietucz-jksbptp/ac s-rec ommendations.html.; Edgar DK, Antonio STONE, Salma CorderoK, Colorectal Cancer Screening: Recommendations for Physicians and Patients from the U.S. Multi-Society Task Force on Colorectal Cancer Screening , Am J Gastroenterology 2017; 112:6638-7015. TEST DESCRIPTION: Composite algorithmic analysis of stool [...] Luis Robles al, N Engl J Med 2014;370(14):0112-4935.) Cologuard may produce a false negative or false positive result (no colorectal cancer or precancerous polyp present at colonoscopy follow up). A negative Cologuard test result does not guarantee the absence of CRC or advanced adenoma (pre-cancer). The current Cologuard screening interval is every 3 years. ([place] [employer] Society and U.S. Multi-Society Task Force). Cologuard performance data in a 10,000 patient pivotal study using colonoscopy as the reference method can be accessed at the following location: www.[employer].com/results. Additional description of the Cologuard test process, warnings and precautions can be found at www.[employer]. Stool specimen (specimen) 03/10/2023 2:14 PM EST 03/12/2023 8:29 PM EST Zev Sanders MD LAB MOLECULAR DIAGNOSTICS O RDERABLES Final Result [facility] (CLIA #:[id number]) [address] [place] [address], * HPV E6/E7 RFLX VANNESSA 16 18/45 (01/15/2022 10:19 AM EDT) HPV mRNA E6/E7 rflx Not Detected Not Detected [facility] Comment: Methodology: Billiard Table Repairer-Mediated Amplification This assay detects E6/E7 viral messenger RNA (mRNA) from 14 high-risk HPV types (16,18,31,33,35,39,45,51,52,56,58,59,66,68). Cervical sources are required for HPV testing. If a vaginal source from a patient who has had a total hysterectomy with removal of cervix was submitted, please contact the testing laboratory for alternative testing options. For additional information, please refer to http://education.[employer]/faq/PVY112c7 (This link if provided for information/ educational purposes only.) THIS TEST WAS PERFORMED AT: [facility] [address] [place] [address],[place] [address] ESPERANZA CRUZ MD 01/15/2022 10:1 9 AM EDT Mario Alberto Morgan MD HISTORICAL/NON ORDERABLE LABS Fi nal Result [facility] * Hm Pap Smear (01/15/2022) Historical Provider HEALTH MAINTENANCE Final Result * HEPATITIS C AB W/REFL TO HCV RNA, QN, PCR (11/12/2021 12:09 PM EDT) HEPATITIS C ANTIBODY NON-REACT JOSE MANUEL NON-REACT JOSE MANUEL [facility] INDEX 0.09 <1.00 [facility] Comment: HCV antibody was non-reactive. There is no laboratory evidence of HCV infection. In most cases, no further action is required. However, if recent HCV exposure is suspected, a test for HCV RNA (test code 42520) is suggested. For additional information please refer to http://education.[employer]/faq/EOI67x0 (This link is being provided for informational/ educational purposes only.) 11/12/2021 12:0 9 PM EDT Zev Sanders MD HISTORICAL/NON ORDERABLE LA BS Final Result Performing Organization Address [facility] Co de Phone Number [facility] [address] * (ABNORMAL) LIPID PANEL, STANDARD (11/12/2021 [...] LDL-C. Hilario SS et al. JUANA. 2013;310(19): 7734-0792 (http://education.[employer]/faq/SOF855) Non-HDL Cholesterol 129 <130 mg/dL (calc) [facility] Comment: For patients with diabetes plus 1 major ASCVD risk factor, treating to a non-HDL-C goal of <100 mg/dL (LDL-C of <70 mg/dL) is considered a therapeutic option. Triglycerides 120 <150 mg/dL [facility] 11/12/2021 12:0 9 PM EDT Zev Sanders MD LAB BLOOD ORDERABLES Final Result [facility] [address] * Mammography Report 1 (10/17/2021 2:30 [...] Most Recently Relevant to Health Maintenance [place] [address] C3 Care Teams Optical Instruments Supervisor Relationship Specialty Start Date End Date Zev Sanders MD [address] [place] [phone] PCP - General Internal Medicine 11/16/19
--- OUTSIDE RECORDS SUMMARY | 2025-03-15 18:58 | XMS_ITS | Encounter Summary ---
Author Organization [employer] Address [address] [place] [address] [address] [place] [address] Care Team Providers Care Game Programmer Name Role Phone Zev Sanders MD Primary Care Provider [phone] Michelle Quiroz RN Unavailable Unavailable Gonzalo Lima Unavailable Benedict Lima RN Unavailable [phone] Reason for Visit * Reason Comments Med Refill Encounter Details Date Type Department Care Team (Late st Contact Info) Description 11/05/2022 Refill [facility] [address] [place], [place] [phone] Zev Sanders MD [address] [place], [place] [phone] Chronic low back pain, unspecified back pain [...] present documented in this encounter Care Teams Game Programmer Relationship Specialty Start Date End Date Zev Sanders MD [address] [place] [address] PCP - General Internal Medicine 11/16/19 Michelle Quiroz RN [address] [place] [address] Registered Nurse Family Medicine 10/04/24 12/06/24 Gonzalo Lima 10/04/24 02/18/25 Benedict Lima RN [address] [place] [address] Registered Nurse Family Medicine 12/06/24 01/12/25 documented as of this encounter
== END 2025-03-15 15:03 | disposition home or self-care (01) ==
LOC: HO.PMC 14:43
PROVIDERS: PCP Internal Medicine; Visit Provider Nurse Practitioner Family
DX: Z79.891 Long term (current) use of opiate analgesic (principal); M54.2 Cervicalgia; M51.369 Other intervertebral disc degeneration, lumbar region without mention of lumbar back pain or lower extremity pain; M47.816 Spondylosis without myelopathy or radiculopathy, lumbar region; G89.4 Chronic pain syndrome
CPT/HCPCS: 99214

== ENCOUNTER → 2025-03-15 14:42 | Outpatient (BNVA) | payer MEDICAID, SELFPAY | PROVIDERS: PCP Internal Medicine; Visit Provider Nurse Practitioner Family | DX: M51.369 Other intervertebral disc degeneration, lumbar region without mention of lumbar back pain or lower extremity pain (principal); M47.816 Spondylosis without myelopathy or radiculopathy, lumbar region; M46.1 Sacroiliitis, not elsewhere classified; G89.4 Chronic pain syndrome; M54.2 Cervicalgia; Z79.891 Long term (current) use of opiate analgesic | CPT/HCPCS: 99212 ==